=== PATIENT | male | born 1945 | race Caucasian/White ===

== ENCOUNTER → 2020-02-08 12:33 | Outpatient (BNVA) | payer MEDICARE, SELFPAY | PROVIDERS: PCP Internal Medicine; Visit Provider Internal Medicine Cardiovascular Disease | DX: I25.118 Atherosclerotic heart disease of native coronary artery with other forms of angina pectoris (principal); R06.00 Dyspnea, unspecified; I25.2 Old myocardial infarction; Z95.820 Peripheral vascular angioplasty status with implants and grafts | CPT/HCPCS: 99214 ==

== ENCOUNTER 2020-02-17 08:41 | Outpatient (REF) | payer MEDICARE, SELFPAY ==
--- NOTE | 2020-02-17 08:44 | CT_ITS ---
EXAMINATION: CT CHEST WITHOUT CONTRAST CLINICAL INFORMATION: Follow-up abnormal chest x-ray. COMPARISON: Previous chest x-ray April [address] scans October 2019. TECHNIQUE: Multidetector volumetric CT imaging of the chest was done. Axial MIP volume rendering provided. Sagittal and coronal reformatted images were obtained. This CT examination was performed using dose optimization techniques as appropriate, variously including the following: *Automated exposure control *Adjustment of mA and/or kV according to patient size (this includes techniques or standardized protocols for targeted exams where dose is matched to indication/reason for exam; i.e. extremities or head) *Use of iterative reconstruction technique DLP: 190 mGy-cm. FINDINGS: LUNGS: There is evidence of emphysema. There is mild biapical pleural and parenchymal scarring that is stable. There is interval decrease in the peripheral parenchymal densities at the lung bases, largest index lesion in the posteromedial left lower lobe compared to October 2019 CT scan. There is interval decrease in the peripheral increased interstitial markings/interlobular septal thickening and increased peripheral attenuation seen in the left upper lobe. There are multiple new similar-appearing areas of increased interstitial markings, interlobular septal thickening and increased parenchymal attenuation seen in the right lung. Some of these appear peripheral and some of these appear central. This is greatest in the right upper and right middle lobes and superior segment of the right lower lobe. There is interval increase in peribronchial attenuation, questionable for airways disease in the posterior basal segment of the right lower lobe. No endobronchial or endotracheal lesion is seen. MEDIASTINUM: The left lobe of the thyroid gland is enlarged and extends substernally into the mediastinum. This is unchanged. There is shotty mediastinal lymphadenopathy that is unchanged. The heart does not appear enlarged. There is [id number] coronary artery calcification. There is aortic valve calcification. The ascending thoracic aorta is slightly dilated measuring 4.3 cm in diameter. The aortic arch and descending thoracic aorta are normal in caliber. There is no pericardial effusion. PLEURA: There is no pleural effusion. No pleural mass or thickening. AXILLA: No lymphadenopathy. UPPER ABDOMEN: There are multiple small low-attenuation liver lesions that are stable. Largest measures 1 cm in the left lobe of the liver. There is a small calcification in the upper pole of the right kidney, questionable for vascular calcification versus stone. There is diverticulosis of the colon. OSSEOUS STRUCTURES: There are degenerative changes of the spine. There is loss of height of the T9 vertebral body, questionable for full for old mild compression fracture that is unchanged. CT/CT chest wo con IMPRESSION: Previously identified left lung findings of abnormal parenchymal densities in the left lower lobe and areas of peripheral increased interstitial markings/interlobular septal thickening and increased parenchymal attenuation in the left upper lobe have significantly improved or resolved from October 2019 exam. There are new similar-appearing areas of increased interstitial markings/interlobular septal thickening and increased attenuation in the right upper lung. Again, it is uncertain whether this represents interstitial lung disease or acute infectious or inflammatory process. Coronary artery and aortic valve calcification and dilated ascending thoracic aorta.
== END 2020-02-17 08:42 | disposition home or self-care (01) ==
LOC: HO.CT 08:41
PROVIDERS: PCP Internal Medicine; Visit Provider Internal Medicine Pulmonary Disease
DX: R93.89 Abnormal findings on diagnostic imaging of other specified body structures (principal)
CPT/HCPCS: 71250

== ENCOUNTER → 2020-03-09 14:28 | Outpatient (BNVA) | payer MEDICARE, SELFPAY | PROVIDERS: PCP Internal Medicine; Visit Provider Internal Medicine Pulmonary Disease | DX: R91.8 Other nonspecific abnormal finding of lung field (principal); J44.9 Chronic obstructive pulmonary disease, unspecified; Z79.899 Other long term (current) drug therapy | CPT/HCPCS: 99212 ==

== ENCOUNTER 2020-03-28 06:02 | Outpatient (REF) | payer MEDICARE, SELFPAY ==
[2020-03-28 11:06] LABS: MANUAL DIFF FLAG NO
[2020-03-28 11:15] LABS: Basophils Percent Auto 0.3 % (0-2); Eosinophils Absolute Auto 0.1 X10*3/uL (0.0-0.4); Hematocrit 37.7 % (42-52); Imm Gran Abs Auto 0.02 X10*3/uL (0.00-0.03); Imm Gran Pct Auto 0.3 % (0.0-0.4); Lymphocytes Absolute Auto 2.1 X10*3/uL (1.2-4.9); Lymphocytes Percent Auto 26.1 % (20-40); Mean Corpuscular HGB Conc 31.8 g/dl (31.0-36.0); Mean Corpuscular Hemoglobin 32.9 pg (27.0-33.0); Mean Corpuscular Volume 103.3 fL (80-98); Mean Platelet Volume 10.1 fL (9.4-12.4); Monocytes Absolute Auto 0.7 X10*3/uL (0.1-1.2); Monocytes Percent Auto 9.2 % (2-11); Neutrophils Percent Auto 63.1 % (45-73); Platelet Count 200 X10*3/uL (160-400); Red Blood Count 3.65 X10*6/uL (4.60-5.80); Red Cell Distribution Width 14.2 % (11.0-16.0); White Blood Count 7.9 X10*3/uL (4.8-10.8)
[2020-03-28 11:36] LABS: Alanine Aminotransferase 22 U/L (0-40); Albumin Level 3.7 g/dL (3.5-5.0); Alkaline Phosphatase 125 U/L (39-117); Anion Gap 15 (12-20); Aspartate Amino Transferase 19 U/L (5-37); Bilirubin Total 0.8 mg/dL (0.0-1.0); Blood Urea Nitrogen 23 mg/dL (9-16); Calcium 8.3 mg/dL (8.4-10.2); Carbon Dioxide 23 mmol/L (22-29); Chloride 105 mmol/L (96-108); Cholesterol 123 mg/dL; Estimated Glomerular Filt Rate > 60; Glucose Random 111 mg/dL (60-115); HDL Cholesterol 50 mg/dL; LDL Cholesterol Calculated 50 mg/dl; Potassium 3.5 mmol/l (3.3-5.1); Sodium 139 mmol/L (135-145); Total Protein 6.9 g/dL (6.5-8.0); Triglycerides 116 mg/dL
[2020-03-28 11:38] LABS: B Type Natriuretic Peptide 403 pg/mL (<100)
[2020-03-28 12:01] LABS: Free T4 (Free Thyroxine) 1.02 ng/dL (0.71-1.85); Thyroid Stimulating Hormone 1.68 uIU/mL (0.32-4.0)
[2020-03-28 13:57] LABS: Folate 9.9 ng/mL (> or = 4.0); Vitamin B12 280 pg/mL (200-900)
== END 2020-03-28 06:03 | disposition home or self-care (01) ==
LOC: HO.HMGCLDS 06:02
PROVIDERS: PCP Internal Medicine; Visit Provider Internal Medicine
DX: I25.10 Atherosclerotic heart disease of native coronary artery without angina pectoris (principal); R73.02 Impaired glucose tolerance (oral); E78.00 Pure hypercholesterolemia, unspecified
CPT/HCPCS: 36415; 80053; 80061; 82607; 82746; 83880; 84439; 84443; 85025

== ENCOUNTER → 2020-03-29 08:35 | Outpatient (BNV) | payer MEDICARE, SELFPAY | PROVIDERS: Visit Provider Internal Medicine Medical Oncology | DX: D64.9 Anemia, unspecified (principal); R91.8 Other nonspecific abnormal finding of lung field | CPT/HCPCS: 99212; 99213; 99214; 99443 ==

== ENCOUNTER 2020-04-01 15:35 | Inpatient (IN) | payer MEDICARE, SELFPAY ==
[2020-04-01] VITALS (9 sets, daily range): BP systolic 112–146; BP diastolic 82–90; PULSE 96–137; RESP 16–20; TEMP 36.4; O2SAT 94–99; BMI 31.1
--- NOTE | 2020-04-01 15:55 | ED_ITS ---
HPI - Arrhythmia/Palpitations General Chief Complaint: Arrhythmia/Palpitations Stated Complaint: Rapid heart beat Time Seen by Provider: 04/01/20 15:54 Source: patient Mode of arrival: ambulatory Limitations: no limitations History of Present Illness HPI narrative: This is a 74-year-old male below noted past medical history including history of COPD, coronary artery disease, status post cardiac catheterization with stenting, chronic dyspnea on exertion, former smoker, hypercholesteremia, hypertension, kidney stone, thyroid nodule, vitamin-D deficiency, wedge compression fracture of T9 vertebra with surgical history of again cardiac observation status post stenting, tonsillectomy, lung biopsy, appendectomy who presents ambulatory via triage with complaint of shortness of breath who was seen his primary care doctor office today Related Data Home Medications Medication Instructions Recorded Confirmed amlodipine 2.5 mg tablet 2.5 mg PO DAILY 02/08/20 04/01/20 aspirin 81 mg chewable tablet 81 mg PO DAILY 02/08/20 04/01/20 atorvastatin 80 mg tablet 80 mg PO BEDTIME 02/08/20 04/01/20 budesonide-formoterol HFA 160 2 puff PO BID 02/08/20 04/01/20 mcg-4.5 mcg/actuation aerosol inhaler metoprolol succinate 25 mg 25 mg PO DAILY 02/08/20 04/01/20 tablet,extended release 24 hr ticagrelor 90 mg tablet 90 mg PO BID 02/08/20 04/01/20 adalimumab 40 mg/0.8 mL 40 mg SUBCUT Q2W 04/01/20 04/01/20 subcutaneous syringe kit Allergies Allergy/AdvReac Type Severity Reaction Status Date / Time hydrochlorothiazide Allergy Unknown unknown Verified 03/09/20 14:56 lisinopril Allergy Unknown unknown Verified 03/09/20 14:56 [facility] Past Medical History Medical History (Updated 04/01/20 @ 14:56 by Oswaldo Delgado MD) Ascending aorta dilatation COPD (chronic obstructive pulmonary disease) Coronary artery disease HOLLOAWY (dyspnea on exertion) Former smoker Hypercholesterolemia Hypertension Impaired glucose tolerance Obesity (BMI 30-39.9) Psoriasis Pulmonary nodule Right renal stone Stable angina Thyroid nodule Vitamin D deficiency Wedge compression fracture of T9 vertebra Surgical History (Updated 03/29/20 @ 09:46 by Sheridan Gore MD) History of appendectomy History of lung biopsy (~2017) History of tonsillectomy Hx of cardiac catheterization (~2019) Status post angioplasty with stent Family History Family History Father No problems noted. Mother No problems noted. Social History Social History Smoking Status: Former smoker Use of substances other than those prescribed or required for medical reasons: No Advance Directives: No Advance Directives Information Provided: No Physical Exam Vital Signs: Vital Signs: Last Vital Signs Temp 97.6 F 04/01/20 20:00 Pulse 104 H 04/01/20 20:00 Resp 20 04/01/20 20:00 BP 123/82 04/01/20 20:00 Pulse Ox 94 04/01/20 20:00 Body Mass Index 31.1 Reviewed Course Course Course Narrative: Review 74-year-old male sent in from primary care doctor office where he went for routine follow-up found to be in rapid AFib with RVR this is new onset for the patient. He is on Brilinta from previous heart surgery otherwise denies any chest pain. States he has chronic dyspnea which he contributes to his COPD otherwise no recent illness. No cough, runny nose, ches pain or fever. Bedside monitor shows atrial fibrillation with RVR in the ER varying from 140-150. Labs being drawn right now will be given 10 mg of Cardizem. Reevaluation(s) Reevaluation #1: Heart rate improved down to 110 after 1st dose of diltiazem. Started on diltiazem drip. Workup in progress WBC without leukocytosis. Otherwise hemodynamically stable blood pressure 118/75. Reevaluation #2: 1800 [facility] downtime Wet read given to me by the Radiology Department awaiting formal read Impression ?Probable right interstitial infiltrate? Patient has no upper respiratory symptoms to suggest infectious process however given his extensive COPD history CT of the chest ordered Will be given dose of empiric antibiotic. No signs or symptoms systemic infection/sepsis. Reevaluation #3: 1850 There was a delay in lab results of the chemistry secondary to difficult draw and hemolyzed back The results just came back of the 2nd draw shows a significant hypernatremia of 160 clinically this appears to be a draw air BMP reordered. Patient resting comfortably at this time. Consultations Consultation #1: 1700 Chemistries hemolyzed reordered and drawn by tach. Patient has been resting comfortably rate control on diltiazem drip. Case discussed with hospitalist for admission. Chemistries and chest x-ray is still pending. MDM - Arrhythmia/Palpitations Differential Diagnosis Differential diagnosis: Likely palpitations, sinus tachycardia, artial fibrillation, artial flutter, ventricular premature beats, supraventricular tachycardia, ventricular tachycardia and WPW Medical Records Attestation: I reviewed the patient's medical records. Lab Data Attestation: I reviewed the patient's lab results. Result diagrams: 04/01/20 16:00 04/01/20 19:07 Labs: Lab Results 04/01/20 04/01/20 04/01/20 Range/Units 16:00 16:00 16:00 WBC 7.4 (4.8-10.8) X10*3/uL RBC 3.61 L (4.60-5.80) X10*6/uL Hgb 11.9 L (14.0-18.0) g/dl Hct 37.1 L (42-52) % MCV 102.8 H (80-98) fL MCH 33.0 (27.0-33.0) pg MCHC 32.1 (31.0-36.0) g/dl RDW 14.2 (11.0-16.0) % Plt Count 175 (160-400) X10*3/uL MPV 9.8 (9.4-12.4) fL Immature Gran % (Auto) 0.3 (0.0-0.4) % Neut % (Auto) 59.6 (45-73) % Lymph % (Auto) 28.5 (20-40) % [place] % (Auto) 10.0 (2-11) % Eos % (Auto) 1.5 (0-4) % Baso % (Auto) 0.1 (0-2) % Lymph # (Auto) 2.1 (1.2-4.9) X10*3/uL [place] # (Auto) 0.7 (0.1-1.2) X10*3/uL Eos # (Auto) 0.1 (0.0-0.4) X10*3/uL Baso # (Auto) 0.0 (0.0-0.2) X10*3/uL Abs Immat Gran (auto) 0.02 (0.00-0.03) X10*3/uL Absolute Neuts (auto) 4.4 (2.0-8.3) X10*3/uL Absolute Nucleated RBC 0.000 (0.0-0.012) X10*3/uL Nucleated RBC % (auto) 0.0 (0.0-0.2) /100WBC PT Cancelled INR Cancelled APTT Cancelled D-Dimer Cancelled Sodium Cancelled Potassium Cancelled Chloride Cancelled Carbon Dioxide Cancelled Anion Gap Cancelled BUN Cancelled Creatinine Cancelled Estim Creat Clear Calc Cancelled Estimated GFR Cancelled Random Glucose Cancelled Calcium Cancelled Magnesium Cancelled Total Bilirubin Cancelled AST Cancelled ALT Cancelled Alkaline Phosphatase Cancelled Troponin I High Sens (<3.5-35.0) ng/L B-Natriuretic Peptide (<100) pg/mL Total Protein Cancelled Albumin Cancelled TSH Cancelled Urine Color Urine Appearance Urine pH (5.0-8.0) Ur Specific [place] (1.005-1.025) Urine Protein (NEG-TRACE) MG/DL Urine Glucose (UA) (NEG) MG/DL Urine Ketones (NEG) MG/DL Urine Blood (NEG) Urine Nitrite (NEG) Ur Leukocyte Esterase (NEG) Urine RBC (0) /HPF Urine WBC (0-4) /HPF Ur Squamous Epith Cells /LPF Urine Bacteria /LPF Urine Opiates Screen (Not Detect) Ur Barbiturates Screen (Not Detect) Ur Phencyclidine Scrn (Not Detect) Ur Amphetamines Screen (Not Detect) U Benzodiazepines Scrn (Not Detect) Urine Cocaine Screen (Not Detect) U Marijuana (THC) Screen (Not Detect) Coronavirus (PCR) (Negative) Influenza Type A (PCR) (Negative) Influenza Type B (PCR) (Negative) RSV RNA Qual (PCR) (Negative) 04/01/20 04/01/20 04/01/20 Range/Units 16:00 16:00 17:18 WBC (4.8-10.8) X10*3/uL RBC (4.60-5.80) X10*6/uL Hgb (14.0-18.0) g/dl Hct (42-52) % MCV (80-98) fL MCH (27.0-33.0) pg MCHC (31.0-36.0) g/dl RDW (11.0-16.0) % Plt Count (160-400) X10*3/uL MPV (9.4-12.4) fL Immature Gran % (Auto) (0.0-0.4) % Neut % (Auto) (45-73) % Lymph % (Auto) (20-40) % [place] % (Auto) (2-11) % Eos % (Auto) (0-4) % Baso % (Auto) (0-2) % Lymph # (Auto) (1.2-4.9) X10*3/uL [place] # (Auto) (0.1-1.2) X10*3/uL Eos # (Auto) (0.0-0.4) X10*3/uL Baso # (Auto) (0.0-0.2) X10*3/uL Abs Immat Gran (auto) (0.00-0.03) X10*3/uL Absolute Neuts (auto) (2.0-8.3) X10*3/uL Absolute Nucleated RBC (0.0-0.012) X10*3/uL Nucleated RBC % (auto) (0.0-0.2) /100WBC PT INR APTT D-Dimer Sodium 160 H* Potassium 3.8 Chloride 94 L Carbon Dioxide 15 L Anion Gap 55 H BUN 23 H Creatinine 0.70 Estim Creat Clear Calc 105.5 Estimated GFR > 60 Random Glucose 91 Calcium 6.4 L D Magnesium 2.4 Total Bilirubin 0.4 AST 16 ALT 19 Alkaline Phosphatase 100 Troponin I High Sens 5.0 (<3.5-35.0) ng/L B-Natriuretic Peptide 272 H (<100) pg/mL Total Protein 5.7 L Albumin 3.1 L TSH 0.99 Urine Color Urine Appearance Urine pH (5.0-8.0) Ur Specific [place] (1.005-1.025) Urine Protein (NEG-TRACE) MG/DL Urine Glucose (UA) (NEG) MG/DL Urine Ketones (NEG) MG/DL Urine Blood (NEG) Urine Nitrite (NEG) Ur Leukocyte Esterase (NEG) Urine RBC (0) /HPF Urine WBC (0-4) /HPF Ur Squamous Epith Cells /LPF Urine Bacteria /LPF Urine Opiates Screen (Not Detect) Ur Barbiturates Screen (Not Detect) Ur Phencyclidine Scrn (Not Detect) Ur Amphetamines Screen (Not Detect) U Benzodiazepines Scrn (Not Detect) Urine Cocaine Screen (Not Detect) U Marijuana (THC) Screen (Not Detect) Coronavirus (PCR) NEGATIVE (Negative) Influenza Type A (PCR) NEGATIVE (Negative) Influenza Type B (PCR) NEGATIVE (Negative) RSV RNA Qual (PCR) NEGATIVE (Negative) 04/01/20 04/01/20 04/01/20 Range/Units 17:18 18:32 18:32 WBC (4.8-10.8) X10*3/uL RBC (4.60-5.80) X10*6/uL Hgb (14.0-18.0) g/dl Hct (42-52) % MCV (80-98) fL MCH (27.0-33.0) pg MCHC (31.0-36.0) g/dl RDW (11.0-16.0) % Plt Count (160-400) X10*3/uL MPV (9.4-12.4) fL Immature Gran % (Auto) (0.0-0.4) % Neut % (Auto) (45-73) % Lymph % (Auto) (20-40) % [place] % (Auto) (2-11) % Eos % (Auto) (0-4) % Baso % (Auto) (0-2) % Lymph # (Auto) (1.2-4.9) X10*3/uL [place] # (Auto) (0.1-1.2) X10*3/uL Eos # (Auto) (0.0-0.4) X10*3/uL Baso # (Auto) (0.0-0.2) X10*3/uL Abs Immat Gran (auto) (0.00-0.03) X10*3/uL Absolute Neuts (auto) (2.0-8.3) X10*3/uL Absolute Nucleated RBC (0.0-0.012) X10*3/uL Nucleated RBC % (auto) (0.0-0.2) /100WBC PT 12.3 INR 1.0 APTT 34.5 D-Dimer < 200 Sodium Potassium Chloride Carbon Dioxide Anion Gap BUN Creatinine Estim Creat Clear Calc Estimated GFR Random Glucose Calcium Magnesium Total Bilirubin AST ALT Alkaline Phosphatase Troponin I High Sens (<3.5-35.0) ng/L B-Natriuretic Peptide (<100) pg/mL Total Protein Albumin TSH Urine Color YELLOW Urine Appearance CLEAR Urine pH 5.5 (5.0-8.0) Ur Specific [place] >= 1.030 H (1.005-1.025) Urine Protein NEG (NEG-TRACE) MG/DL Urine Glucose (UA) NEG (NEG) MG/DL Urine Ketones NEG (NEG) MG/DL Urine Blood NEG (NEG) Urine Nitrite NEG (NEG) Ur Leukocyte Esterase NEG (NEG) Urine RBC 0-2 (0) /HPF Urine WBC 0 (0-4) /HPF Ur Squamous Epith Cells NONE /LPF Urine Bacteria 1+ /LPF Urine Opiates Screen Not Detected (Not Detect) Ur Barbiturates Screen Not Detected (Not Detect) Ur Phencyclidine Scrn Not Detected (Not Detect) Ur Amphetamines Screen Not Detected (Not Detect) U Benzodiazepines Scrn Not Detected (Not Detect) Urine Cocaine Screen Not Detected (Not Detect) U Marijuana (THC) Screen Not Detected (Not Detect) Coronavirus (PCR) (Negative) Influenza Type A (PCR) (Negative) Influenza Type B (PCR) (Negative) RSV RNA Qual (PCR) (Negative) 04/01/20 Range/Units 19:07 WBC (4.8-10.8) X10*3/uL RBC (4.60-5.80) X10*6/uL Hgb (14.0-18.0) g/dl Hct (42-52) % MCV (80-98) fL MCH (27.0-33.0) pg MCHC (31.0-36.0) g/dl RDW (11.0-16.0) % Plt Count (160-400) X10*3/uL MPV (9.4-12.4) fL Immature Gran % (Auto) (0.0-0.4) % Neut % (Auto) (45-73) % Lymph % (Auto) (20-40) % [place] % (Auto) (2-11) % Eos % (Auto) (0-4) % Baso % (Auto) (0-2) % Lymph # (Auto) (1.2-4.9) X10*3/uL [place] # (Auto) (0.1-1.2) X10*3/uL Eos # (Auto) (0.0-0.4) X10*3/uL Baso # (Auto) (0.0-0.2) X10*3/uL Abs Immat Gran (auto) (0.00-0.03) X10*3/uL Absolute Neuts (auto) (2.0-8.3) X10*3/uL Absolute Nucleated RBC (0.0-0.012) X10*3/uL Nucleated RBC % (auto) (0.0-0.2) /100WBC PT INR APTT D-Dimer Sodium 140 Potassium 4.0 Chloride 110 H Carbon Dioxide 21 L Anion Gap 13 BUN 25 H Creatinine 0.77 Estim Creat Clear Calc 95.9 Estimated GFR > 60 Random Glucose 105 Calcium 7.8 L D Magnesium Total Bilirubin AST ALT Alkaline Phosphatase Troponin I High Sens (<3.5-35.0) ng/L B-Natriuretic Peptide (<100) pg/mL Total Protein Albumin TSH Urine Color Urine Appearance Urine pH (5.0-8.0) Ur Specific [place] (1.005-1.025) Urine Protein (NEG-TRACE) MG/DL Urine Glucose (UA) (NEG) MG/DL Urine Ketones (NEG) MG/DL Urine Blood (NEG) Urine Nitrite (NEG) Ur Leukocyte Esterase (NEG) Urine RBC (0) /HPF Urine WBC (0-4) /HPF Ur Squamous Epith Cells /LPF Urine Bacteria /LPF Urine Opiates Screen (Not Detect) Ur Barbiturates Screen (Not Detect) Ur Phencyclidine Scrn (Not Detect) Ur Amphetamines Screen (Not Detect) U Benzodiazepines Scrn (Not Detect) Urine Cocaine Screen (Not Detect) U Marijuana (THC) Screen (Not Detect) Coronavirus (PCR) (Negative) Influenza Type A (PCR) (Negative) Influenza Type B (PCR) (Negative) RSV RNA Qual (PCR) (Negative) ABG Data Attestation: I personally reviewed and interpreted this ABG as follows: Imaging Data CTA ches PE: Radiologist's impression: [address] [address] [address] Scan Report Signed Patient: Pablito Everett PMR#: [id number] : 6Acct:[id number] Age/Sex: 74 / MADM Date: 04/01/20 Loc: HO.ED Attending Dr: Ordering Physician: Dionisio Graf NP Date of Service: 04/01/20 Procedure(s): CT angio chest PE protocol Accession Number(s): [id number] cc: Dionisio Graf NP~ EXAMINATION: CT ANGIOGRAM OF THE CHEST WITH AND WITHOUT CONTRAST (CT PULMONARY ANGIOGRAM FOR PE) CLINICAL INFORMATION: Reason for Exam SOB/ elevated ddimer COMPARISON: 02/17/2020 TECHNIQUE: Prior to contrast administration, noncontrast localization images were obtained. Subsequently, multidetector volumetric imaging was performed from the thoracic inlet to below the diaphragms following the administration of 65 mL Omnipaque 350 intravenous contrast. No contrast reaction reported Sagittal, coronal, and MIP oblique sagittal reformatted images were obtained on the CT workstation, uploaded to PACS, and reviewed. This CT examination was performed using dose optimization techniques as appropriate, variously including the following: *Automated exposure control *Adjustment of mA and/or kV according to patient size (this includes techniques or standardized protocols for targeted exams where dose is matched to indication/reason for exam; i.e. extremities or head) *Use of iterative reconstruction technique Total exam dose-length product 625 mGy-cm FINDINGS: QUALITY OF STUDY/CONTRAST BOLUS: Satisfactory. PULMONARY ARTERIES: No central or segmental pulmonary emboli. THORACIC AORTA: Calcific atherosclerosis is present in the thoracic aorta. Ascending thoracic aorta is mildly ectatic (4.3 cm at the tubular segment). No evidence of dissection. LUNG: Moderate centrilobular pulmonary emphysema. Dependent atelectasis present in the lower lobes. Additional peripheral groundglass airspace opacities are present within the right upper lobe in a more peripheral distribution. Patchy foci of peripheral interlobular septal thickening are evident as well. The previously seen patchy foci of parenchymal groundglass attenuation seen in the prior study are now included within these more pronounced abnormalities on the current study. Atelectasis is most likely, though a superimposed infectious process is possible. No dense consolidation. Central airways are clear. No focal pulmonary nodules. PLEURA: No pleural effusion or pneumothorax. MEDIASTINUM: Enlarged, heterogeneous left thyroid lobe. Left ischium is enlarged. Calcific atherosclerosis is present in the coronary arteries. An enlarged precarinal lymph node measures up to 1.3 cm in diameter, unchanged from prior. A borderline-enlarged 1 cm right hilar lymph node is also noted. No new adenopathy. No evidence of septal bowing or right heart strain. CHEST WALL/AXILLA: No axillary or internal mammary lymphadenopathy. OSSEOUS STRUCTURES: Chronic compression deformity is present at the T9 vertebral body involving both the superior and inferior endplates. There is is multilevel degenerative disc disease throughout the thoracic spine. No acute osseous abnormalities are identified. UPPER ABDOMEN: There is reflux of contrast into the hepatic veins, suggestive of elevated right heart pressures. Multiple sharply demarcated hypodensities within the hepatic parenchyma are noted, most likely corresponding to cysts. These appear unchanged as compared to prior. Diverticulosis is present in the imaged portion of the colon. No evidence of diverticulitis. CT/CT angio chest PE protocol IMPRESSION: 1. No evidence of pulmonary emboli. 2. Pulmonary emphysema. Previously seen abnormal parenchymal groundglass opacities are now more pronounced, confluent with broader areas of groundglass attenuation, likely due to superimposed atelectasis or progression of underlying infectious or inflammatory process. Bowel pneumonitis is on the differential. 3. Ectatic ascending thoracic aorta. 4. Borderline enlarged mediastinal and right hilar lymph nodes. 5. Left atrial enlargement. Reflux of contrast material into the right hepatic veins to suggest a component of elevated right heart pressures. VTE: negative Dictated By:JOVANA CATES MD Signed By:<Electronically signed by JOVANA CATES MD in OV>04/01/202039 DD/ 18 TD/TT: Personal Protection Specialist: CHEVY ECG Data Interpretation: Atrial fibrillation with RVR Rate [address] abnormality Discharge Plan Discharge Prescriptions: No Action Humira 40 mg/0.8 mL syringe kit 40 mg subcut Q2W RF: 0 Brilinta 90 mg tablet 90 mg PO BID RF: 0 metoprolol succinate 25 mg tablet extended release 24 hr 25 mg PO DAILY RF: 0 amlodipine 2.5 mg tablet 2.5 mg PO DAILY RF: 0 budesonide-formoterol 160-4.5 mcg/actuation HFA aerosol inhaler 2 puff PO BID RF: 0 atorvastatin 80 mg tablet 80 mg PO BEDTIME RF: 0 aspirin 81 mg tablet,chewable 81 mg PO DAILY RF: 0
--- NOTE | 2020-04-01 15:55 | XR_ITS ---
EXAMINATION: XR CHEST CLINICAL INFORMATION: Short of breath. COMPARISON: None TECHNIQUE: Frontal view of the chest was obtained. FINDINGS: The lungs are well-expanded with diffuse increase interstitial prominence slightly greater on the right and left. No consolidation or pleural effusion seen. Heart size and pulmonary vascularity is normal. XR/XR chest 1V IMPRESSION: Prominent interstitial pattern in both lungs slightly greater on the right. Question interstitial pneumonitis versus edema. Preliminary results were faxed to ER and was read by Dr. Sr.
--- NOTE | 2020-04-01 15:55 | ECG_ITS ---
Test Reason : RAPID HEART RATE Blood Pressure : / mmHG Vent. Rate : 122 BPM Atrial Rate : 312 BPM P-R Int : 000 ms QRS Dur : 080 ms QT Int : 322 ms P-R-T Axes : 000 020 032 degrees QTc Int : 458 ms Atrial fibrillation with rapid ventricular response Nonspecific ST abnormality Abnormal ECG When compared with ECG of 05-MAY-2019 07:40, Atrial fibrillation has replaced Sinus rhythm Vent. rate has increased BY 56 BPM Referred By: Dionisio Graf Electronically Signed By:AUTUMN MANCINI
[2020-04-01 16:08] LABS: MANUAL DIFF FLAG NO
[2020-04-01 16:10] LABS: Basophils Percent Auto 0.1 % (0-2); Eosinophils Absolute Auto 0.1 X10*3/uL (0.0-0.4); Eosinophils Percent Auto 1.5 % (0-4); Hematocrit 37.1 % (42-52); Hemoglobin 11.9 g/dl (14.0-18.0); Imm Gran Abs Auto 0.02 X10*3/uL (0.00-0.03); Imm Gran Pct Auto 0.3 % (0.0-0.4); Lymphocytes Absolute Auto 2.1 X10*3/uL (1.2-4.9); Lymphocytes Percent Auto 28.5 % (20-40); Mean Corpuscular HGB Conc 32.1 g/dl (31.0-36.0); Mean Corpuscular Volume 102.8 fL (80-98); Mean Platelet Volume 9.8 fL (9.4-12.4); Monocytes Absolute Auto 0.7 X10*3/uL (0.1-1.2); Neutrophils Absolute Auto 4.4 X10*3/uL (2.0-8.3); Neutrophils Percent Auto 59.6 % (45-73); Platelet Count 175 X10*3/uL (160-400); Red Blood Count 3.61 X10*6/uL (4.60-5.80); Red Cell Distribution Width 14.2 % (11.0-16.0); White Blood Count 7.4 X10*3/uL (4.8-10.8)
[2020-04-01] MEDS: 0.9 % Sodium Chloride 500 ML 999 ML IV (16:12)
[2020-04-01] MEDS: dilTIAZem HCL 50 MG/10 ML VIAL 10 MG IVPUSH (16:12)
[2020-04-01 16:50] LABS: Influenza A PCR NEGATIVE (Negative); Influenza B PCR NEGATIVE (Negative); Resp Syncy Virus RNA Qual PCR NEGATIVE (Negative); SARS COV2 PCR INHOUSE NEGATIVE (Negative)
[2020-04-01] MEDS: dilTIAZem HCL 125 MG in 0.9 % Sodium Chloride 100 ML 10 MG IVCONT (17:05)
--- NOTE | 2020-04-01 17:07 | PC.NURSE ---
Cardizem gtt started as ordered at 10mg/hr. HR at at this time 90-100
--- NOTE | 2020-04-01 17:08 | PC.NURSE ---
Chemistry and coags hemolyzed, tech to re draw
[2020-04-01 17:39] LABS: Prothrombin Time 12.3 SEC (10.8-13.0)
--- NOTE | 2020-04-01 18:19 | CT_ITS ---
EXAMINATION: CT ANGIOGRAM OF THE CHEST WITH AND WITHOUT CONTRAST (CT PULMONARY ANGIOGRAM FOR PE) CLINICAL INFORMATION: Reason for Exam SOB/ elevated ddimer COMPARISON: 02/17/2020 TECHNIQUE: Prior to contrast administration, noncontrast localization images were obtained. Subsequently, multidetector volumetric imaging was performed from the thoracic inlet to below the diaphragms following the administration of 65 mL Omnipaque 350 intravenous contrast. No contrast reaction reported Sagittal, coronal, and MIP oblique sagittal reformatted images were obtained on the CT workstation, uploaded to PACS, and reviewed. This CT examination was performed using dose optimization techniques as appropriate, variously including the following: *Automated exposure control *Adjustment of mA and/or kV according to patient size (this includes techniques or standardized protocols for targeted exams where dose is matched to indication/reason for exam; i.e. extremities or head) *Use of iterative reconstruction technique Total exam dose-length product 625 mGy-cm FINDINGS: QUALITY OF STUDY/CONTRAST BOLUS: Satisfactory. PULMONARY ARTERIES: No central or segmental pulmonary emboli. THORACIC AORTA: Calcific atherosclerosis is present in the thoracic aorta. Ascending thoracic aorta is mildly ectatic (4.3 cm at the tubular segment). No evidence of dissection. LUNG: Moderate centrilobular pulmonary emphysema. Dependent atelectasis present in the lower lobes. Additional peripheral groundglass airspace opacities are present within the right upper lobe in a more peripheral distribution. Patchy foci of peripheral interlobular septal thickening are evident as well. The previously seen patchy foci of parenchymal groundglass attenuation seen in the prior study are now included within these more pronounced abnormalities on the current study. Atelectasis is most likely, though a superimposed infectious process is possible. No dense consolidation. Central airways are clear. No focal pulmonary nodules. PLEURA: No pleural effusion or pneumothorax. MEDIASTINUM: Enlarged, heterogeneous left thyroid lobe. Left ischium is enlarged. Calcific atherosclerosis is present in the coronary arteries. An enlarged precarinal lymph node measures up to 1.3 cm in diameter, unchanged from prior. A borderline-enlarged 1 cm right hilar lymph node is also noted. No new adenopathy. No evidence of septal bowing or right heart strain. CHEST WALL/AXILLA: No axillary or internal mammary lymphadenopathy. OSSEOUS STRUCTURES: Chronic compression deformity is present at the T9 vertebral body involving both the superior and inferior endplates. There is is multilevel degenerative disc disease throughout the thoracic spine. No acute osseous abnormalities are identified. UPPER ABDOMEN: There is reflux of contrast into the hepatic veins, suggestive of elevated right heart pressures. Multiple sharply demarcated hypodensities within the hepatic parenchyma are noted, most likely corresponding to cysts. These appear unchanged as compared to prior. Diverticulosis is present in the imaged portion of the colon. No evidence of diverticulitis. CT/CT angio chest PE protocol IMPRESSION: 1. No evidence of pulmonary emboli. 2. Pulmonary emphysema. Previously seen abnormal parenchymal groundglass opacities are now more pronounced, confluent with broader areas of groundglass attenuation, likely due to superimposed atelectasis or progression of underlying infectious or inflammatory process. Bowel pneumonitis is on the differential. 3. Ectatic ascending thoracic aorta. 4. Borderline enlarged mediastinal and right hilar lymph nodes. 5. Left atrial enlargement. Reflux of contrast material into the right hepatic veins to suggest a component of elevated right heart pressures. VTE: negative
[2020-04-01 18:41] LABS: Appearance Urine CLEAR; Color Urine YELLOW; Glucose Urine UA NEG (NEG); Leukocyte Esterase Urine NEG (NEG); Nitrite Urine NEG (NEG); PH 5.5 (5.0-8.0); Specific Gravity - Urine >= 1.030 (1.005-1.025); Urine Blood NEG (NEG); Urine Ketones NEG (NEG); Urine Protein NEG (NEG-TRACE)
[2020-04-01 18:54] LABS: B Type Natriuretic Peptide 272 pg/mL (<100)
[2020-04-01 19:01] LABS: Bacteria Urine 1+ /LPF; RBC Urine 0-2 /HPF (0); WBC Urine 0 /HPF (0-4)
[2020-04-01 19:02] LABS: Amphetamine Screen Urine Not Detected (Not Detect); Barbiturates, Urine Not Detected (Not Detect); Benzodiazepines Screen Urine Not Detected (Not Detect); Cannabinoid Screen Urine Not Detected (Not Detect); Cocaine Screen Urine Not Detected (Not Detect); Opiate Screen Urine Not Detected (Not Detect); Phencyclidine Screen Urine Not Detected (Not Detect)
[2020-04-01 19:02] LABS: Partial Thromboplastin Time 34.5 SEC (24.1-38.0)
[2020-04-01 19:07] LABS: D Dimer < 200 NG/ML
[2020-04-01] MEDS: iohexoL 350 MG/ML 100 ML INFUS..BTL IV (19:39)
[2020-04-01] MEDS: Piperacillin Sodium/Tazobactam 4.5 GM in 0.9 % Sodium Chloride 100 ML IV (19:45)
[2020-04-01 19:50] LABS: Anion Gap 13 (12-20); Blood Urea Nitrogen 25 mg/dL (9-16); Calcium 7.8 mg/dL (8.4-10.2); Carbon Dioxide 21 mmol/L (22-29); Chloride 110 mmol/L (96-108); Creatinine Clr Calc Pharmacy 95.9; Estimated Glomerular Filt Rate > 60; Glucose Random 105 mg/dL (60-115); Sodium 140 mmol/L (135-145)
--- NOTE | 2020-04-01 20:46 | P.HPHOSP_ITS ---
History of Present Illness Date of Service: 04/01/20 Chief Complaint: Abnormal EKG This is a 74-year-old male multiple medical problems who was sent from his PCP's office for new onset atrial fibrillation. Patient had a routine medical visit and was noted to be in new onset atrial fibrillation with rapid ventricular response. His initial heart rate was in the 140s to 150s. He has had complaints of dyspnea on exertion for the past few months which is being worked up. He has had abnormal chest CT scan showing ground-glass opacities and he has been seeing pulmonology for this. Pulmonary felt that it was likely inflammatory and possibly secondary to his underlying psoriatic arthritis. He also has an underlying history of COPD and coronary artery disease. He underwent cardiac catheterization in April 2019 and had 2 drug-eluting stents placed at that time. Today he reports ongoing dyspnea on exertion but denies any chest pain, palpitations, dizziness. He was given a dose of IV Cardizem and then started on a Cardizem drip with good improvement in his heart rate. Review of Systems Review of Systems: Yes all other systems are reviewed and are negative Constitutional: Constitutional: Denies chills and Denies fever(s) Cardiovascular: Cardiovascular: Denies chest pain Respiratory: Respiratory: Denies cough Gastrointestinal: Gastrointestinal: Denies abdominal pain [facility] Medical History Ascending aorta dilatation COPD (chronic obstructive pulmonary disease) Coronary artery disease HOLLOWAY (dyspnea on exertion) Former smoker Hypercholesterolemia Hypertension Impaired glucose tolerance Obesity (BMI 30-39.9) Psoriasis Pulmonary nodule Right renal stone Stable angina Thyroid nodule Vitamin D deficiency Wedge compression fracture of T9 vertebra Family History (Updated 04/01/20 @ 20:53 by RAYNE Rodriguez) Father Heart disease Mother No problems noted. Surgical History History of appendectomy History of lung biopsy (~2016) History of tonsillectomy Hx of cardiac catheterization (~2019) Status post angioplasty with stent Social History Smoking Status: Former smoker Use of substances other than those prescribed or required for medical reasons: No Advance Directives: No Advance Directives Information Provided: No Meds Allergies Allergy/AdvReac Type Severity Reaction Status Date / Time hydrochlorothiazide Allergy Unknown unknown Verified 03/09/20 14:56 lisinopril Allergy Unknown unknown Verified 03/09/20 14:56 Home Medications Medication Instructions Recorded Confirmed Type amlodipine 2.5 mg tablet 2.5 mg PO DAILY 02/08/20 04/01/20 History aspirin 81 mg chewable tablet 81 mg PO DAILY 02/08/20 04/01/20 History atorvastatin 80 mg tablet 80 mg PO BEDTIME 02/08/20 04/01/20 History budesonide-formoterol HFA 160 2 puff PO BID 02/08/20 04/01/20 History mcg-4.5 mcg/actuation aerosol inhaler metoprolol succinate 25 mg 25 mg PO DAILY 02/08/20 04/01/20 History tablet,extended release 24 hr ticagrelor 90 mg tablet 90 mg PO BID 02/08/20 04/01/20 History adalimumab 40 mg/0.8 mL 40 mg SUBCUT Q2W 04/01/20 04/01/20 History subcutaneous syringe kit Physical Exam Vital Signs and Narrative: Vital Signs: Last Vital Signs Temp 97.6 F 04/01/20 20:00 Pulse 104 H 04/01/20 20:00 Resp 20 04/01/20 20:00 BP 123/82 04/01/20 20:00 Pulse Ox 94 04/01/20 20:00 Body Mass Index 31.1 Const: Nutritional Appearance: well nourished Orientation/consciousness: patient oriented x3 HENMT: Head: Yes normocephalic and Yes atraumatic Eyes: Sclerae: sclerae normal Chest: Chest palpation & inspection: normal inspection of the chest Resp: Effort & Inspection: normal respiratory effort and no respiratory distress Auscultation: diminished lung sounds Cardio: Rate: tachycardic Rhythm: abnormal rhythm irregularly irregular GI: Palpation (GI): Soft to palpation and nontender Skin: General skin exam: no rashes or lesions noted Neuro: General: patient oriented x3 Cranial nerves: Yes CN's II-XII intact bilaterally and Yes Bilaterally intact EOM present Extrem: General: Yes normal to inspection Results Labs CBC and Chem 7: 04/01/20 16:00 04/01/20 19:07 Labs: Laboratory Results - last 24 hr 04/01/20 04/01/20 04/01/20 16:00 16:00 16:00 MCV 102.8 H MCH 33.0 MCHC 32.1 RDW 14.2 Plt Count 175 MPV 9.8 Immature Gran % (Auto) 0.3 Neut % (Auto) 59.6 Lymph % (Auto) 28.5 [place] % (Auto) 10.0 Eos % (Auto) 1.5 Baso % (Auto) 0.1 Lymph # (Auto) 2.1 [place] # (Auto) 0.7 Eos # (Auto) 0.1 Baso # (Auto) 0.0 Abs Immat Gran (auto) 0.02 Absolute Neuts (auto) 4.4 Absolute Nucleated RBC 0.000 Nucleated RBC % (auto) 0.0 PT Cancelled INR Cancelled APTT Cancelled D-Dimer Cancelled Anion Gap Cancelled Estim Creat Clear Calc Cancelled Estimated GFR Cancelled Random Glucose Cancelled Calcium Cancelled Magnesium Cancelled Total Bilirubin Cancelled AST Cancelled ALT Cancelled Alkaline Phosphatase Cancelled Troponin I High Sens B-Natriuretic Peptide Total Protein Cancelled Albumin Cancelled TSH Cancelled Urine Color Urine Appearance Urine pH Ur Specific [place] Urine Protein Urine Glucose (UA) Urine Ketones Urine Blood Urine Nitrite Ur Leukocyte Esterase Urine RBC Urine WBC Ur Squamous Epith Cells Urine Bacteria Urine Opiates Screen Ur Barbiturates Screen Ur Phencyclidine Scrn Ur Amphetamines Screen U Benzodiazepines Scrn Urine Cocaine Screen U Marijuana (THC) Screen Coronavirus (PCR) Influenza Type A (PCR) Influenza Type B (PCR) RSV RNA Qual (PCR) 04/01/20 04/01/20 04/01/20 16:00 16:00 17:18 MCV MCH MCHC RDW Plt Count MPV Immature Gran % (Auto) Neut % (Auto) Lymph % (Auto) [place] % (Auto) Eos % (Auto) Baso % (Auto) Lymph # (Auto) [place] # (Auto) Eos # (Auto) Baso # (Auto) Abs Immat Gran (auto) Absolute Neuts (auto) Absolute Nucleated RBC Nucleated RBC % (auto) PT INR APTT D-Dimer Anion Gap 55 H Estim Creat Clear Calc 105.5 Estimated GFR > 60 Random Glucose 91 Calcium 6.4 L D Magnesium 2.4 Total Bilirubin 0.4 AST 16 ALT 19 Alkaline Phosphatase 100 Troponin I High Sens 5.0 B-Natriuretic Peptide 272 H Total Protein 5.7 L Albumin 3.1 L TSH 0.99 Urine Color Urine Appearance Urine pH Ur Specific [place] Urine Protein Urine Glucose (UA) Urine Ketones Urine Blood Urine Nitrite Ur Leukocyte Esterase Urine RBC Urine WBC Ur Squamous Epith Cells Urine Bacteria Urine Opiates Screen Ur Barbiturates Screen Ur Phencyclidine Scrn Ur Amphetamines Screen U Benzodiazepines Scrn Urine Cocaine Screen U Marijuana (THC) Screen Coronavirus (PCR) NEGATIVE Influenza Type A (PCR) NEGATIVE Influenza Type B (PCR) NEGATIVE RSV RNA Qual (PCR) NEGATIVE 04/01/20 04/01/20 04/01/20 17:18 18:32 18:32 MCV MCH MCHC RDW Plt Count MPV Immature Gran % (Auto) Neut % (Auto) Lymph % (Auto) [place] % (Auto) Eos % (Auto) Baso % (Auto) Lymph # (Auto) [place] # (Auto) Eos # (Auto) Baso # (Auto) Abs Immat Gran (auto) Absolute Neuts (auto) Absolute Nucleated RBC Nucleated RBC % (auto) PT 12.3 INR 1.0 APTT 34.5 D-Dimer < 200 Anion Gap Estim Creat Clear Calc Estimated GFR Random Glucose Calcium Magnesium Total Bilirubin AST ALT Alkaline Phosphatase Troponin I High Sens B-Natriuretic Peptide Total Protein Albumin TSH Urine Color YELLOW Urine Appearance CLEAR Urine pH 5.5 Ur Specific [place] >= 1.030 H Urine Protein NEG Urine Glucose (UA) NEG Urine Ketones NEG Urine Blood NEG Urine Nitrite NEG Ur Leukocyte Esterase NEG Urine RBC 0-2 Urine WBC 0 Ur Squamous Epith Cells NONE Urine Bacteria 1+ Urine Opiates Screen Not Detected Ur Barbiturates Screen Not Detected Ur Phencyclidine Scrn Not Detected Ur Amphetamines Screen Not Detected U Benzodiazepines Scrn Not Detected Urine Cocaine Screen Not Detected U Marijuana (THC) Screen Not Detected Coronavirus (PCR) Influenza Type A (PCR) Influenza Type B (PCR) RSV RNA Qual (PCR) 04/01/20 19:07 MCV MCH MCHC RDW Plt Count MPV Immature Gran % (Auto) Neut % (Auto) Lymph % (Auto) [place] % (Auto) Eos % (Auto) Baso % (Auto) Lymph # (Auto) [place] # (Auto) Eos # (Auto) Baso # (Auto) Abs Immat Gran (auto) Absolute Neuts (auto) Absolute Nucleated RBC Nucleated RBC % (auto) PT INR APTT D-Dimer Anion Gap 13 Estim Creat Clear Calc 95.9 Estimated GFR > 60 Random Glucose 105 Calcium 7.8 L D Magnesium Total Bilirubin AST ALT Alkaline Phosphatase Troponin I High Sens B-Natriuretic Peptide Total Protein Albumin TSH Urine Color Urine Appearance Urine pH Ur Specific [place] Urine Protein Urine Glucose (UA) Urine Ketones Urine Blood Urine Nitrite Ur Leukocyte Esterase Urine RBC Urine WBC Ur Squamous Epith Cells Urine Bacteria Urine Opiates Screen Ur Barbiturates Screen Ur Phencyclidine Scrn Ur Amphetamines Screen U Benzodiazepines Scrn Urine Cocaine Screen U Marijuana (THC) Screen Coronavirus (PCR) Influenza Type A (PCR) Influenza Type B (PCR) RSV RNA Qual (PCR) Imaging Radiologist's Impressions: Impressions Chest CTA 04/01/20 18:19 IMPRESSION: 1. No evidence of pulmonary emboli. 2. Pulmonary emphysema. Previously seen abnormal parenchymal groundglass opacities are now more pronounced, confluent with broader areas of groundglass attenuation, likely due to superimposed atelectasis or progression of underlying infectious or inflammatory process. Bowel pneumonitis is on the differential. 3. Ectatic ascending thoracic aorta. 4. Borderline enlarged mediastinal and right hilar lymph nodes. 5. Left atrial enlargement. Reflux of contrast material into the right hepatic veins to suggest a component of elevated right heart pressures. VTE: negative Assessment and Plan (1) Atrial fibrillation: Status: Acute This is a 74-year-old male with a history of coronary artery disease status post JL on DAPT, COPD, hypertension, dyslipidemia, and STEMI, psoriatic arthritis on Humira among others who presents to the emergency department from PCP's office with new onset atrial fibrillation with rapid ventricular response New onset atrial fibrillation with RVR Heart rate controlled on Cardizem drip Continue home dose of metoprolol Chads score of 3 making him a candidate for anticoagulation. Currently on DAPT for CAD with JL in April 2019. Will give 1 dose of therapeutic Lovenox and discuss with Cardiology regarding ongoing AC ECHO Cardiology consult Hypertension Norvasc on hold while on Cardizem drip CAD Continue aspirin, Brilinta, statin, metoprolol DVT prophylaxis-1 dose of therapeutic Lovenox Code status-full code This case was discussed with Dr. Tejeda
[2020-04-01 21:10] LABS: Magnesium 2.1 mg/dL (1.6-2.6)
[2020-04-01 21:31] LABS: Thyroid Stimulating Hormone 1.29 uIU/mL (0.32-4.0)
[2020-04-01] MEDS: Enoxaparin Sodium 100 MG/ML SYRINGE 95 MG SUBCUT (22:25)
[2020-04-01] MEDS: Atorvastatin Calcium 80 MG TABLET PO (22:25)
[2020-04-01] MEDS: Ticagrelor 90 MG TABLET PO (22:25)
[2020-04-02] VITALS (13 sets, daily range): BP systolic 92–152; BP diastolic 48–92; PULSE 66–135; RESP 18–20; TEMP 36.1–37.1; O2SAT 95–98
--- NOTE | 2020-04-02 06:06 | P.EN_ITS ---
Event Note Date of Service: 04/02/20 Event Note: patient seen evaluated independently. I agree with MADDIE note asse ssment and plan. For full note please see H&P
--- NOTE | 2020-04-02 06:06 | PM.EVENT ---
Event Note Date of Service: 04/02/20 Event Note: patient seen evaluated independently. I agree with MADDIE note assessment and plan. For full note please see H&P
[2020-04-02 06:58] LABS: Hematocrit 32.4 % (42-52); Hemoglobin 10.6 g/dl (14.0-18.0); Mean Corpuscular HGB Conc 32.7 g/dl (31.0-36.0); Mean Corpuscular Hemoglobin 33.2 pg (27.0-33.0); Mean Corpuscular Volume 101.6 fL (80-98); Mean Platelet Volume 9.9 fL (9.4-12.4); Platelet Count 169 X10*3/uL (160-400); Red Blood Count 3.19 X10*6/uL (4.60-5.80); Red Cell Distribution Width 14.2 % (11.0-16.0); White Blood Count 6.3 X10*3/uL (4.8-10.8)
[2020-04-02] MEDS: Fluticasone/Vilanterol 200/25 BLST.W.DEV 1 PUFF INHALE (07:39)
[2020-04-02] MEDS: Ticagrelor 90 MG TABLET PO ×2 (09:42→22:09)
[2020-04-02] MEDS: Aspirin 81 MG TAB.CHEW PO (09:43)
[2020-04-02] MEDS: Metoprolol Succinate ER 25 MG TAB.ER.24H PO (09:43)
--- NOTE | 2020-04-02 10:15 | MHC.CM.PN ---
CM spoke with /HCP/Julieta @ [phone] (Covid Precautions). Patient lives in a house with his and he is functionally independent. The goal for dc is for Patient to return home, no services. CM has initiated and will follow for dc planning.IMM addressed with Julieta and the original has been mailed certified letter to her and a copy has been placed on the chart. PCP- is Dr. Oswaldo RIDER.
--- NOTE | 2020-04-02 11:02 | PM.CNCAR ---
History of Present Illness History of Present Illness Date of Service: 04/02/20 Consult reason: atrial fibrillation Chief complaint: Afib rvr Narrative: This is a cardiology consultation for atrial fibrillation. Patient has been sent from the PCP's office because of atrial fibrillation with rapid rate. His heart rate was apparently in the 140s 150s. He is currently on Cardizem infusion. He states that he does not feel any palpitations or chest discomfort like angina. However, he has been having some shortness of breath the last few weeks. He is a patient in our office who sees . He underwent right coronary artery stenting in 2019. He has residual disease in the LAD and left circumflex which are being medically managed. He is still on dual antiplatelet therapy. Review of Systems Review of Systems: Yes all other systems are reviewed and are negative Cardiovascular: Cardiovascular: Reports as per HPI, Reports no additional cardiovascular complaints, Denies Abdominal Cramping after Meds, Denies Abdominal Distension, Denies cool extremities, Denies painful fingertips, Denies chest pain, Denies chest pain at rest, Denies chest pain with activity, Denies Epigastric Pain, Denies epigastric discomfort, Denies diaphoresis, Denies syncope, Denies rapid heart rate, Denies pedal edema, Denies edema, Denies irregular heart rhythm, Denies claudication, Denies leg ulcers, Denies leg edema, Denies lightheadedness, Denies Loss of Consciousness, Denies radiating jaw, neck or arm pain, Denies palpitations, Reports dyspnea, Reports dyspnea on exertion, Denies orthopnea and Denies paroxysmal nocturnal dyspnea Respiratory: Respiratory: Reports dyspnea and Reports dyspnea on exertion Neurologic: Denies syncope Endocrine: Endocrine: Denies palpitations [facility] Past Medical History Medical History Ascending aorta dilatation COPD (chronic obstructive pulmonary disease) Coronary artery disease HOLLOWAY (dyspnea on exertion) Former smoker Hypercholesterolemia Hypertension Impaired glucose tolerance Obesity (BMI 30-39.9) Psoriasis Pulmonary nodule Right renal stone Stable angina Thyroid nodule Vitamin D deficiency Wedge compression fracture of T9 vertebra Family History Family History (Updated 04/01/20 @ 20:53 by RAYNE Rodriguez) Father Heart disease Mother No problems noted. Surgical History Surgical History History of appendectomy History of lung biopsy (~2016) History of tonsillectomy Hx of cardiac catheterization (~2019) Status post angioplasty with stent Social History Social History Household Members: Spouse Housing: House Do you presently have visiting nurse or other home services: No Smoking Status: Former smoker Use of substances other than those prescribed or required for medical reasons: No Currently Displaying Signs/Symptoms of Drug Intoxication Withdrawal: No Have you been hit, kicked, punched, or otherwise hurt by someone within the past year? If so, by whom?: No Do you feel safe in your current relationship?: Yes Is there a partner from a previous relationship who is making you feel unsafe now?: No Are you made to feel afraid or neglected: No Advance Directives: No Advance Directives Information Provided: No Do you have thoughts of harming others: None Do you have a plan to hurt others: No Plan Recently lost weight without trying: No service: Yes Current occupational status: retired [employer] Allergies Allergy/AdvReac Type Severity Reaction Status Date / Time hydrochlorothiazide Allergy Unknown unknown Verified 03/09/20 14:56 lisinopril Allergy Unknown unknown Verified 03/09/20 14:56 Home Medications Medication Instructions Recorded Confirmed Type amlodipine 2.5 mg tablet 2.5 mg PO DAILY 02/08/20 04/01/20 History aspirin 81 mg chewable tablet 81 mg PO DAILY 02/08/20 04/01/20 History atorvastatin 80 mg tablet 80 mg PO BEDTIME 02/08/20 04/01/20 History budesonide-formoterol HFA 160 2 puff PO BID 02/08/20 04/01/20 History mcg-4.5 mcg/actuation aerosol inhaler metoprolol succinate 25 mg 25 mg PO DAILY 02/08/20 04/01/20 History tablet,extended release 24 hr ticagrelor 90 mg tablet 90 mg PO BID 02/08/20 04/01/20 History adalimumab 40 mg/0.8 mL 40 mg SUBCUT Q2W 04/01/20 04/01/20 History subcutaneous syringe kit Physical Exam Vital Signs: Vital Signs: Last Vital Signs Temp 97.0 F 04/02/20 08:31 Pulse 134 H 04/02/20 09:43 Resp 20 04/02/20 08:31 BP 152/70 H 04/02/20 09:43 Pulse Ox 95 04/02/20 08:31 Body Mass Index 31.1 Const: General: cooperative, comfortable and no acute distress Orientation/consciousness: patient oriented x3 HENMT: Other: Unremarkable Neck: Neck: Yes normal visual inspection Chest: Chest palpation & inspection: normal inspection of the chest Resp: Auscultation: clear to auscultation bilaterally, no crackles and no wheezes Cardio: Jugular venous distension: no JVD Palpation: normal PMI Heart sounds: S1 normal heart sound present, S2 normal heart sound present, no gallops, no murmurs and no rubs GI: Palpation (GI): Soft to palpation Back/Spine/Pelvis: Other: unremarkable Skin: General skin exam: no rashes or lesions noted Neuro: General: patient oriented x3 Extrem: General: Yes no clubbing, cyanosis or edema Psych: Mental Status: mental status grossly normal Results Labs and Meds Result diagrams: 04/02/20 06:01 04/01/20 19:07 Lab results: Laboratory Results - last 24 hr 04/01/20 04/01/20 04/01/20 16:00 16:00 16:00 WBC 7.4 RBC 3.61 L Hgb 11.9 L Hct 37.1 L MCV 102.8 H MCH 33.0 MCHC 32.1 RDW 14.2 Plt Count 175 MPV 9.8 Immature Gran % (Auto) 0.3 Neut % (Auto) 59.6 Lymph % (Auto) 28.5 [place] % (Auto) 10.0 Eos % (Auto) 1.5 Baso % (Auto) 0.1 Lymph # (Auto) 2.1 [place] # (Auto) 0.7 Eos # (Auto) 0.1 Baso # (Auto) 0.0 Abs Immat Gran (auto) 0.02 Absolute Neuts (auto) 4.4 Absolute Nucleated RBC 0.000 Nucleated RBC % (auto) 0.0 PT Cancelled INR Cancelled APTT Cancelled D-Dimer Cancelled Sodium Cancelled Potassium Cancelled Chloride Cancelled Carbon Dioxide Cancelled Anion Gap Cancelled BUN Cancelled Creatinine Cancelled Estim Creat Clear Calc Cancelled Estimated GFR Cancelled Random Glucose Cancelled Calcium Cancelled Magnesium Cancelled Total Bilirubin Cancelled AST Cancelled ALT Cancelled Alkaline Phosphatase Cancelled Troponin I High Sens B-Natriuretic Peptide Total Protein Cancelled Albumin Cancelled TSH Cancelled Urine Color Urine Appearance Urine pH Ur Specific [place] Urine Protein Urine Glucose (UA) Urine Ketones Urine Blood Urine Nitrite Ur Leukocyte Esterase Urine RBC Urine WBC Ur Squamous Epith Cells Urine Bacteria Urine Opiates Screen Ur Barbiturates Screen Ur Phencyclidine Scrn Ur Amphetamines Screen U Benzodiazepines Scrn Urine Cocaine Screen U Marijuana (THC) Screen Coronavirus (PCR) Influenza Type A (PCR) Influenza Type B (PCR) RSV RNA Qual (PCR) 04/01/20 04/01/20 04/01/20 16:00 16:00 17:18 WBC RBC Hgb Hct MCV MCH MCHC RDW Plt Count MPV Immature Gran % (Auto) Neut % (Auto) Lymph % (Auto) [place] % (Auto) Eos % (Auto) Baso % (Auto) Lymph # (Auto) [place] # (Auto) Eos # (Auto) Baso # (Auto) Abs Immat Gran (auto) Absolute Neuts (auto) Absolute Nucleated RBC Nucleated RBC % (auto) PT INR APTT D-Dimer Sodium TNP Potassium TNP Chloride TNP Carbon Dioxide TNP Anion Gap TNP BUN TNP Creatinine TNP Estim Creat Clear Calc TNP Estimated GFR TNP Random Glucose TNP Calcium TNP Magnesium TNP Total Bilirubin TNP AST TNP ALT TNP Alkaline Phosphatase TNP Troponin I High Sens 5.0 B-Natriuretic Peptide 272 H Total Protein TNP Albumin TNP TSH TNP Urine Color Urine Appearance Urine pH Ur Specific [place] Urine Protein Urine Glucose (UA) Urine Ketones Urine Blood Urine Nitrite Ur Leukocyte Esterase Urine RBC Urine WBC Ur Squamous Epith Cells Urine Bacteria Urine Opiates Screen Ur Barbiturates Screen Ur Phencyclidine Scrn Ur Amphetamines Screen U Benzodiazepines Scrn Urine Cocaine Screen U Marijuana (THC) Screen Coronavirus (PCR) NEGATIVE Influenza Type A (PCR) NEGATIVE Influenza Type B (PCR) NEGATIVE RSV RNA Qual (PCR) NEGATIVE 04/01/20 04/01/20 04/01/20 17:18 18:32 18:32 WBC RBC Hgb Hct MCV MCH MCHC RDW Plt Count MPV Immature Gran % (Auto) Neut % (Auto) Lymph % (Auto) [place] % (Auto) Eos % (Auto) Baso % (Auto) Lymph # (Auto) [place] # (Auto) Eos # (Auto) Baso # (Auto) Abs Immat Gran (auto) Absolute Neuts (auto) Absolute Nucleated RBC Nucleated RBC % (auto) PT 12.3 INR 1.0 APTT 34.5 D-Dimer < 200 Sodium Potassium Chloride Carbon Dioxide Anion Gap BUN Creatinine Estim Creat Clear Calc Estimated GFR Random Glucose Calcium Magnesium Total Bilirubin AST ALT Alkaline Phosphatase Troponin I High Sens B-Natriuretic Peptide Total Protein Albumin TSH Urine Color YELLOW Urine Appearance CLEAR Urine pH 5.5 Ur Specific [place] >= 1.030 H Urine Protein NEG Urine Glucose (UA) NEG Urine Ketones NEG Urine Blood NEG Urine Nitrite NEG Ur Leukocyte Esterase NEG Urine RBC 0-2 Urine WBC 0 Ur Squamous Epith Cells NONE Urine Bacteria 1+ Urine Opiates Screen Not Detected Ur Barbiturates Screen Not Detected Ur Phencyclidine Scrn Not Detected Ur Amphetamines Screen Not Detected U Benzodiazepines Scrn Not Detected Urine Cocaine Screen Not Detected U Marijuana (THC) Screen Not Detected Coronavirus (PCR) Influenza Type A (PCR) Influenza Type B (PCR) RSV RNA Qual (PCR) 04/01/20 04/02/20 19:07 06:01 WBC 6.3 RBC 3.19 L Hgb 10.6 L Hct 32.4 L MCV 101.6 H MCH 33.2 H MCHC 32.7 RDW 14.2 Plt Count 169 MPV 9.9 Immature Gran % (Auto) Neut % (Auto) Lymph % (Auto) [place] % (Auto) Eos % (Auto) Baso % (Auto) Lymph # (Auto) [place] # (Auto) Eos # (Auto) Baso # (Auto) Abs Immat Gran (auto) Absolute Neuts (auto) Absolute Nucleated RBC 0.000 Nucleated RBC % (auto) 0.0 PT INR APTT D-Dimer Sodium 140 Potassium 4.0 Chloride 110 H Carbon Dioxide 21 L Anion Gap 13 BUN 25 H Creatinine 0.77 Estim Creat Clear Calc 95.9 Estimated GFR > 60 Random Glucose 105 Calcium 7.8 L D Magnesium 2.1 Total Bilirubin AST ALT Alkaline Phosphatase Troponin I High Sens B-Natriuretic Peptide Total Protein Albumin TSH 1.29 Urine Color Urine Appearance Urine pH Ur Specific [place] Urine Protein Urine Glucose (UA) Urine Ketones Urine Blood Urine Nitrite Ur Leukocyte Esterase Urine RBC Urine WBC Ur Squamous Epith Cells Urine Bacteria Urine Opiates Screen Ur Barbiturates Screen Ur Phencyclidine Scrn Ur Amphetamines Screen U Benzodiazepines Scrn Urine Cocaine Screen U Marijuana (THC) Screen Coronavirus (PCR) Influenza Type A (PCR) Influenza Type B (PCR) RSV RNA Qual (PCR) Assessment and Plan (1) Atrial fibrillation with rapid ventricular response: Status: Acute (2) Atherosclerotic cardiovascular disease: Status: Acute (3) Ascending aortic aneurysm: Status: Acute EKG shows atrial fibrillation with rapid rate at 01:22/Min. On telemetry, he still in atrial fibrillation with rapid rate. Continue IV Cardizem drip. Can adjust does as guided by blood pressure and heart rate. Stop his aspirin. Start Eliquis 5 mg b.i.d.. Continue Brilinta. If he does not convert by tomorrow, then potentially DEEPA/cardioversion on Saturday or Saturday. He does not have any contraindications and he is agreeable for the procedure.
[2020-04-02] MEDS: dilTIAZem HCL 30 MG TABLET PO ×3 (11:41→22:12)
[2020-04-02] MEDS: 0.9 % Sodium Chloride Flush 3 ML SYRINGE IVFLUSH ×3 (11:42→22:14)
--- NOTE | 2020-04-02 14:46 | HO.PM.IMPN ---
Subjective Subjective Date of Service: 04/02/20 Interval History: the patient was seen and evaluated this morning Laying in bed, feels comfortable Denies any fever, chills or shortness of breath No reported other overnight events. Systemic review: No fever, chills or weakness No chest pain, palpitation No shortness of breath or coughing No abdominal pain, nausea or vomiting No urinary symptoms No any rash or wounds Physical Exam Vital Signs: Vital Signs: Last Vital Signs Temp 98.7 F 04/02/20 12:00 Pulse 85 04/02/20 14:10 Resp 18 04/02/20 12:00 BP 140/70 H 04/02/20 12:00 Pulse Ox 97 04/02/20 12:00 Body Mass Index 31.1 Constitutional : Alert, oriented, not in distress Neck : Normal inspection, Supple Cardiovascular : Irregular irregular rhythm, S1 S2, no lower extremity edema Respiratory : Good bilateral air entry, no crackles, wheezes or rhonchi Gastrointestinal: soft, lax, Normal bowel sounds, Non tender Skin : Warm/Dry, No rash Neurological : Alert & oriented x3, No focal deficit Objective Data Current Medications Generic Name Dose Route Start Last Admin Trade Name Freq PRN Reason Stop Dose Admin Acetaminophen 650 mg 04/01/20 21:49 Acetaminophen 325 Mg Tablet PO Q6H PRN Pain, Mild (Pain Scale 1-3) Apixaban 5 mg 04/02/20 12:10 Apixaban 5 Mg Tablet PO BID ON LICENSE OF [facility] Atorvastatin Calcium 80 mg 04/01/20 21:49 04/01/20 22:25 Atorvastatin Calcium 80 Mg Tablet PO 80 mg BEDTIME ON LICENSE OF [facility] Administration Diltiazem HCl 30 mg 04/02/20 10:55 04/02/20 14:10 Diltiazem Hcl 30 Mg Tablet PO Not Given QID ON LICENSE OF [facility] Protocol Docusate Sodium 100 mg 04/01/20 21:49 Docusate Sodium 100 Mg Capsule PO DAILY PRN Constipation Fluticasone/Vilanterol 1 puff 04/02/20 08:00 04/02/20 07:39 Fluticasone/Vilanterol 200/25 Blst.W.Dev INHALE 1 puff RDAILY ON LICENSE OF [facility] Administration Diltiazem HCl 125 mg/ Sodium 125 mls @ 0 mls/hr 04/01/20 16:45 04/02/20 11:43 Chloride IVCONT 0 mg/hr .Q0M FILEMON 0 mls/hr Titration Protocol Per Protocol Metoprolol Succinate 25 mg 04/02/20 09:00 04/02/20 09:43 Metoprolol Succinate Er 25 Mg Tab.Er.24h PO 25 mg DAILY FILEMON Administration Protocol Ondansetron HCl 4 mg 04/01/20 21:49 Ondansetron Hcl 4 Mg/2 Ml Vial IVPUSH Q8H PRN Nausea and Vomiting Pharmacy Consult 1 each 04/01/20 16:08 Consult Rx Perform Med Rec MISCELLANE ONCE PRN Consult order Sodium Chloride 3 ml 04/02/20 00:00 04/02/20 11:42 0.9 % Sodium Chloride Flush 3 Ml Syringe IVFLUSH 3 ml QSHIFT FILEMON Administration Ticagrelor 90 mg 04/01/20 21:49 04/02/20 09:42 Ticagrelor 90 Mg Tablet PO 90 mg BID FILEMON Administration Labs CBC & Chem 7: 04/02/20 06:01 04/01/20 19:07 Assessment and Plan (1) Atrial fibrillation with rapid ventricular response: Status: Acute (2) Atherosclerotic cardiovascular disease: Status: Acute (3) Hypertension: Problem details: Echo 50-55% April 2019 Status: Acute (4) Pulmonary nodules/lesions, multiple: Status: Acute Assessment and Plan: This is a 74-year-old male with a history of coronary artery disease status post JL on DAPT, COPD, hypertension, dyslipidemia, and STEMI, psoriatic arthritis on Humira among others who presents to the emergency department from PCP's office with new onset atrial fibrillation with rapid ventricular response New onset atrial fibrillation with RVR Continue Cardizem drip Continue home dose of metoprolol To start p.o. Cardizem To start Eliquis b.i.d and discontinue aspirin Pending ECHO Cardiology consult appreciated, if he did not convert back will consider DEEPA with cardioversion on Saturday Hypertension Norvasc on hold while on Cardizem drip CAD Continue aspirin, Brilinta, statin, metoprolol DVT prophylaxis Eliquis
[2020-04-02] MEDS: Apixaban 5 MG TABLET PO ×2 (15:55→22:08)
[2020-04-02] MEDS: dilTIAZem HCL 125 MG in 0.9 % Sodium Chloride 100 ML IVCONT (18:31)
--- NOTE | 2020-04-02 18:42 | PC.NURSE ---
Patient remains in Afib RVR. Continues on cardizem gtt. Cardizem started PO as well. Eloquis added for anticoagulation. Vitals stable. Echo obtained. Will continue to monitor.
[2020-04-02] MEDS: Atorvastatin Calcium 80 MG TABLET PO (22:08)
[2020-04-03] VITALS (11 sets, daily range): BP systolic 91–159; BP diastolic 56–86; PULSE 58–111; RESP 18–20; TEMP 36–37.1; O2SAT 95–99
--- NOTE | 2020-04-03 06:29 | PC.NURSE ---
Cardizem gtt off at 2220 last night, pt hr 50-60s afib on tele. Drip restarted this am, hr sustaining 100-110s. Will titrate per jun.
[2020-04-03 08:09] LABS: Anion Gap 13 (12-20); Blood Urea Nitrogen 18 mg/dL (9-16); Calcium 8.1 mg/dL (8.4-10.2); Carbon Dioxide 22 mmol/L (22-29); Chloride 109 mmol/L (96-108); Creatinine Clr Calc Pharmacy 93.5; Estimated Glomerular Filt Rate > 60; Glucose Random 105 mg/dL (60-115); Potassium 3.8 mmol/l (3.3-5.1); Sodium 140 mmol/L (135-145)
[2020-04-03] MEDS: Fluticasone/Vilanterol 200/25 BLST.W.DEV 1 PUFF INHALE (09:16)
[2020-04-03] MEDS: 0.9 % Sodium Chloride Flush 3 ML SYRINGE IVFLUSH ×3 (09:58→20:01)
[2020-04-03] MEDS: Ticagrelor 90 MG TABLET PO ×2 (09:58→20:00)
[2020-04-03] MEDS: dilTIAZem HCL 30 MG TABLET PO (09:58)
[2020-04-03] MEDS: Apixaban 5 MG TABLET PO ×2 (09:59→20:00)
[2020-04-03] MEDS: Metoprolol Succinate ER 25 MG TAB.ER.24H PO (09:59)
[2020-04-03] MEDS: dilTIAZem HCL 60 MG TABLET PO ×2 (12:49→17:24)
--- NOTE | 2020-04-03 13:50 | P.PNCA_ITS ---
Subjective Subjective Date of Service: 04/03/20 Interval history: He states that he feels okay. No specific complaints like angina or shortness of breath or palpitations. Review of Systems Review of Systems Review of Systems: Yes all other systems are reviewed and are negative Cardiovascular: Cardiovascular: Reports as per HPI, Reports no additional cardiovascular complaints, Denies Abdominal Cramping after Meds, Denies Abdominal Distension, Denies cool extremities, Denies painful fingertips, Denies chest pain, Denies chest pain at rest, Denies chest pain with activity, Denies Epigastric Pain, Denies epigastric discomfort, Denies diaphoresis, Denies syncope, Denies rapid heart rate, Denies pedal edema, Denies edema, Denies irregular heart rhythm, Denies claudication, Denies leg ulcers, Denies leg edema , Denies lightheadedness, Denies Loss of Consciousness, Denies radiating jaw, neck or arm pain, Denies palpitations, Reports dyspnea, Reports dyspnea on exertion, Denies orthopnea and Denies paroxysmal nocturnal dyspnea Respiratory: Respiratory: Reports dyspnea and Reports dyspnea on exertion Neurologic: Denies syncope Endocrine: Endocrine: Denies palpitations Physical Exam Vital Signs: Last Vital Signs Temp 97.8 F 04/03/20 12:00 Pulse 86 04/03/20 12:49 Resp 20 04/03/20 08:00 BP 148/78 H 04/03/20 12:00 Pulse Ox 99 04/03/20 12:00 Body Mass Index 31.1 Const General: cooperative, comfortable and no acute distress Orientation/consciousness: patient oriented x3 HENWY Other: Unremarkable Neck Neck: Yes normal visual inspection Chest Chest palpation & inspection: normal inspection of the chest Resp Auscultation: clear to auscultation bilaterally, no crackles and no wheezes Cardio Jugular venous distension: no JVD Palpation: normal PMI Heart sounds: S1 normal heart sound present, S2 normal heart sound present, no gallops, no murmurs and no rubs GI Palpation (GI): Soft to palpation Back/Spine/Pelvis Other: unremarkable Skin General skin exam: no rashes or lesions noted Neuro General: patient oriented x3 Extrem General: Yes no clubbing, cyanosis or edema Psych Mental Status: mental status grossly normal Results Labs and Meds Result diagrams: 04/02/20 06:01 04/03/20 06:16 Lab results: Laboratory Results - last 24 hr 04/03/20 06:16 Sodium 140 Potassium 3.8 Chloride 109 H Carbon Dioxide 22 Anion Gap 13 BUN 18 H Creatinine 0.79 Estim Creat Clear Calc 93.5 Estimated GFR > 60 Random Glucose 105 Calcium 8.1 L Progress Note: A&P Assessment and plan (1) Atrial fibrillation with rapid ventricular response: Status: Acute (2) Atherosclerotic cardiovascular disease: Status: Acute Assessment and Plan: On telemetry, he still in atrial fibrillation but with a much better rate control than as today. We can start oral Cardizem and uptitrate dosing so that we can wean the drip. Plan for either DEEPA/cardioversion this admission or cardioversion in 4 weeks after adequate anticoagulation. Continue Brilinta but off aspirin. Continue Eliquis. Keep NPO past midnight. Fall Risk Details Current Medications: Current Medications Generic Name Dose Route Start Last Admin Trade Name Freq PRN Reason Stop Dose Admin Acetaminophen 650 mg 04/01/20 21:49 Acetaminophen 325 Mg Tablet PO Q6H PRN Pain, Mild (Pain Scale 1-3) Apixaban 5 mg 04/02/20 12:10 04/03/20 09:59 Apixaban 5 Mg Tablet PO 5 mg BID FILEMON Administration Atorvastatin Calcium 80 mg 04/01/20 21:49 04/02/20 22:08 Atorvastatin Calcium 80 Mg Tablet PO 80 mg BEDTIME FILEMON Administration Diltiazem HCl 60 mg 04/03/20 13:00 04/03/20 12:49 Diltiazem Hcl 60 Mg Tablet PO 60 mg QID FILEMON Administration Protocol Docusate Sodium 100 mg 04/01/20 21:49 Docusate Sodium 100 Mg Capsule PO DAILY PRN Constipation Fluticasone/Vilanterol 1 puff 04/02/20 08:00 04/03/20 09:16 Fluticasone/Vilanterol 200/25 Blst.W.Dev INHALE 1 puff RDAILY FILEMON Administration Diltiazem HCl 125 mg/ Sodium 125 mls @ 0 mls/hr 04/01/20 16:45 04/03/20 09:56 Chloride IVCONT 15 mg/hr .Q0M FILEMON 15 mls/hr Titration Protocol Per Protocol Metoprolol Succinate 25 mg 04/02/20 09:00 04/03/20 09:59 Metoprolol Succinate Er 25 Mg Tab.Er.24h PO 25 mg DAILY FILEMON Administration Protocol Ondansetron HCl 4 mg 04/01/20 21:49 Ondansetron Hcl 4 Mg/2 Ml Vial IVPUSH Q8H PRN Nausea and Vomiting Pharmacy Consult 1 each 04/01/20 16:08 Consult Rx Perform Med Rec MISCELLANE ONCE PRN Consult order Sodium Chloride 3 ml 04/02/20 00:00 04/03/20 09:58 0.9 % Sodium Chloride Flush 3 Ml Syringe IVFLUSH 3 ml QSHIFT FILEMON Administration Ticagrelor 90 mg 04/01/20 21:49 04/03/20 09:58 Ticagrelor 90 Mg Tablet PO 90 mg BID FILEMON Administration Time Spent With Patient Time: Total time spent is greater than 50% in coordination of care (as documented) at patient's floor/unit and/or counseling patient: Time with patient: 15 - 24 minutes
--- NOTE | 2020-04-03 14:13 | HO.PM.IMPN ---
Subjective Subjective Date of Service: 04/03/20 Interval History: The patient was seen and evaluated this morning Laying in bed, feels comfortable Denies any fever, chills or shortness of breath Heart rate still significantly elevated in 90s to 120 knees, irregular No reported other overnight events. Systemic review: No fever, chills or weakness No chest pain, but reports feeling palpitation No shortness of breath or coughing No abdominal pain, nausea or vomiting No urinary symptoms No any rash or wounds Physical Exam Vital Signs: Vital Signs: Last Vital Signs Temp 97.8 F 04/03/20 12:00 Pulse 86 04/03/20 12:49 Resp 20 04/03/20 08:00 BP 148/78 H 04/03/20 12:00 Pulse Ox 99 04/03/20 12:00 Body Mass Index 31.1 Constitutional : Alert, oriented, not in distress Neck : Normal inspection, Supple Cardiovascular : irregular irregular rhythm, S1 S2, no lower extremity edema Respiratory : Good bilateral air entry, no crackles, wheezes or rhonchi Gastrointestinal: soft, lax, Normal bowel sounds, Non tender Skin : Warm/Dry, No rash Neurological : Alert & oriented x3, No focal deficit Objective Data Current Medications Generic Name Dose Route Start Last Admin Trade Name Freq PRN Reason Stop Dose Admin Acetaminophen 650 mg 04/01/20 21:49 Acetaminophen 325 Mg Tablet PO Q6H PRN Pain, Mild (Pain Scale 1-3) Apixaban 5 mg 04/02/20 12:10 04/03/20 09:59 Apixaban 5 Mg Tablet PO 5 mg BID FILEMON Administration Atorvastatin Calcium 80 mg 04/01/20 21:49 04/02/20 22:08 Atorvastatin Calcium 80 Mg Tablet PO 80 mg BEDTIME FILEMON Administration Diltiazem HCl 60 mg 04/03/20 13:00 04/03/20 12:49 Diltiazem Hcl 60 Mg Tablet PO 60 mg QID FILEMON Administration Protocol Docusate Sodium 100 mg 04/01/20 21:49 Docusate Sodium 100 Mg Capsule PO DAILY PRN Constipation Fluticasone/Vilanterol 1 puff 04/02/20 08:00 04/03/20 09:16 Fluticasone/Vilanterol 200/25 Blst.W.Dev INHALE 1 puff RDAILY FILEMON Administration Diltiazem HCl 125 mg/ Sodium 125 mls @ 0 mls/hr 04/01/20 16:45 04/03/20 09:56 Chloride IVCONT 15 mg/hr .Q0M FILEMON 15 mls/hr Titration Protocol Per Protocol Metoprolol Succinate 25 mg 04/02/20 09:00 04/03/20 09:59 Metoprolol Succinate Er 25 Mg Tab.Er.24h PO 25 mg DAILY FILEMON Administration Protocol Ondansetron HCl 4 mg 04/01/20 21:49 Ondansetron Hcl 4 Mg/2 Ml Vial IVPUSH Q8H PRN Nausea and Vomiting Pharmacy Consult 1 each 04/01/20 16:08 Consult Rx Perform Med Rec MISCELLANE ONCE PRN Consult order Sodium Chloride 3 ml 04/02/20 00:00 04/03/20 09:58 0.9 % Sodium Chloride Flush 3 Ml Syringe IVFLUSH 3 ml QSHIFT FILEMON Administration Ticagrelor 90 mg 04/01/20 21:49 04/03/20 09:58 Ticagrelor 90 Mg Tablet PO 90 mg BID FILEMON Administration Labs CBC & Chem 7: 04/02/20 06:01 04/03/20 06:16 Assessment and Plan (1) Atrial fibrillation with rapid ventricular response: Status: Acute (2) Atherosclerotic cardiovascular disease: Status: Acute (3) Hypertension: Problem details: Echo 50-55% April 2019 Status: Acute (4) Pulmonary nodules/lesions, multiple: Status: Acute Assessment and Plan: This is a 74-year-old male with a history of coronary artery disease status post JL on DAPT, COPD, hypertension, dyslipidemia, and STEMI, psoriatic arthritis on Humira among others who presents to the emergency department from PCP's office with new onset atrial fibrillation with rapid ventricular response New onset atrial fibrillation with RVR Continue Cardizem drip Continue home dose of metoprolol increased to 60 mg p.o. Cardizem q.6 continue Eliquis b.i.d and discontinue aspirin Pending ECHO Cardiology consult appreciated, if he did not convert back will consider DEEPA with cardioversion on Saturday Hypertension Norvasc on hold while on Cardizem drip CAD Continue aspirin, Brilinta, statin, metoprolol DVT prophylaxis Eliquis
[2020-04-03] MEDS: dilTIAZem HCL 125 MG in 0.9 % Sodium Chloride 100 ML 15 MG IVCONT (17:24)
--- NOTE | 2020-04-03 18:43 | PC.NURSE ---
Patient remains on cardizem gtt and PO cardizem. HR is Afib and rate controlled. Vitals stable. Will continue to monitor.
[2020-04-03] MEDS: Atorvastatin Calcium 80 MG TABLET PO (20:01)
--- NOTE | 2020-04-03 21:30 | ECG_ITS ---
Test Reason : RHYTHM CHANGE Blood Pressure : / mmHG Vent. Rate : 058 BPM Atrial Rate : 059 BPM P-R Int : 000 ms QRS Dur : 082 ms QT Int : 450 ms P-R-T Axes : 000 036 042 degrees QTc Int : 441 ms Atrial fibrillation with slow ventricular response Abnormal ECG When compared to the previous EKG of HR has decreased by 64 beats/min Referred By: Kye Day Electronically Signed By:Ja Jean-Baptiste
[2020-04-04] VITALS (9 sets, daily range): BP systolic 100–130; BP diastolic 66–89; PULSE 79–105; RESP 18–19; TEMP 36.1–36.6; O2SAT 94–99; BMI 31.1
[2020-04-04] MEDS: Metoprolol Succinate ER 25 MG TAB.ER.24H PO (07:45)
[2020-04-04] MEDS: 0.9 % Sodium Chloride Flush 3 ML SYRINGE IVFLUSH ×2 (07:45→15:15)
[2020-04-04] MEDS: dilTIAZem HCL 60 MG TABLET PO (07:46)
[2020-04-04] MEDS: Ticagrelor 90 MG TABLET PO (07:46)
[2020-04-04] MEDS: Apixaban 5 MG TABLET PO ×2 (07:46→20:16)
[2020-04-04] MEDS: Fluticasone/Vilanterol 200/25 BLST.W.DEV 1 PUFF INHALE (07:47)
--- NOTE | 2020-04-04 12:11 | PM.PNCARD ---
Subjective Subjective Date of Service: 04/04/20 Interval history: Saying breathing is better but still short of breath. Review of Systems Review of Systems Dyspnea Yes all other systems are reviewed and are negative Cardiovascular: Denies syncope Denies syncope Physical Exam Vital Signs: Last Vital Signs Temp 97.7 F 04/04/20 07:15 Pulse 105 H 04/04/20 07:46 Resp 18 04/04/20 07:15 BP 130/89 04/04/20 07:46 Pulse Ox 95 04/04/20 07:15 Body Mass Index 31.1 GENERAL APPEARANCE: in no acute distress, well developed, well nourished. HEENT: unremarkable. HEAD: normocephalic, atraumatic. NECK/THYROID: no carotid bruit, no jugular venous distention. SKIN: no suspicious lesions, warm and dry. HEART: no murmurs, irregularly irregular rhythm, S1, S2 normal. LUNGS: Diminished breath sounds bilaterally. ABDOMEN: normal, bowel sounds present, soft, nontender, nondistended. EXTREMITIES: no clubbing, cyanosis, or edema. PERIPHERAL PULSES: equal. NEUROLOGIC: nonfocal, alert and oriented. PSYCH: mood/affect full range. Results Labs and Meds Result diagrams: 04/02/20 06:01 04/03/20 06:16 Progress Note: A&P Assessment and plan (1) Atrial fibrillation with rapid ventricular response: Status: Acute (2) Hypertension: Problem details: Echo 50-55% April 2019 Status: Acute (3) Coronary artery disease: Problem details: NSTEMI April 2019 JL and proximal and distal RCA rotablation Status: Acute Assessment and Plan: Pleasant 74-year-old gentleman who is here for dyspnea and new onset atrial fibrillation with rapid ventricular response. He has been on Cardizem with reasonable rate control. His aspirin was stopped and he was started on apixaban along with ticagrelor. I think this combination has high bleeding risk and I am changing his ticagrelor to Plavix. He has COPD and has shortness of breath at baseline. He is saying his breathing has improved but he is still short of breath. I have advised him to ambulate the hallways with the nurse. Will check an echocardiogram today to see his LV function. If his rate control is reasonable and his LV is normal then I will let him go home and we will arrange cardioversion in 4-6 weeks. On the other hand if his symptoms do not improve despite rate control or his LVEF is abnormal on echocardiography then he will need DEEPA cardioversion tomorrow. Thank you for allowing me to participate in the care of your patient. Please feel free to contact me if you have any questions. Fall Risk Details Current Medications: Current Medications Generic Name Dose Route Start Last Admin Trade Name Freq PRN Reason Stop Dose Admin Acetaminophen 650 mg 04/01/20 21:49 Acetaminophen 325 Mg Tablet PO Q6H PRN Pain, Mild (Pain Scale 1-3) Apixaban 5 mg 04/02/20 12:10 04/04/20 07:46 Apixaban 5 Mg Tablet PO 5 mg BID FILEMON Administration Atorvastatin Calcium 80 mg 04/01/20 21:49 04/03/20 20:01 Atorvastatin Calcium 80 Mg Tablet PO 80 mg BEDTIME FILEMON Administration Diltiazem HCl 240 mg 04/04/20 11:00 Diltiazem Hcl Cd 240 Mg Cap.Er.Deg PO DAILY FILEMON Protocol Docusate Sodium 100 mg 04/01/20 21:49 Docusate Sodium 100 Mg Capsule PO DAILY PRN Constipation Fluticasone/Vilanterol 1 puff 04/02/20 08:00 04/04/20 07:47 Fluticasone/Vilanterol 200/25 Blst.W.Dev INHALE 1 puff RDAILY FILEMON Administration Diltiazem HCl 125 mg/ Sodium 125 mls @ 0 mls/hr 04/01/20 16:45 04/03/20 20:01 Chloride IVCONT 0 mg/hr .Q0M FILEMON 0 mls/hr Titration Protocol Per Protocol Metoprolol Succinate 25 mg 04/02/20 09:00 04/04/20 07:45 Metoprolol Succinate Er 25 Mg Tab.Er.24h PO 25 mg DAILY FILEMON Administration Protocol Ondansetron HCl 4 mg 04/01/20 21:49 Ondansetron Hcl 4 Mg/2 Ml Vial IVPUSH Q8H PRN Nausea and Vomiting Pharmacy Consult 1 each 04/01/20 16:08 Consult Rx Perform Med Rec MISCELLANE ONCE PRN Consult order Sodium Chloride 3 ml 04/02/20 00:00 04/04/20 07:45 0.9 % Sodium Chloride Flush 3 Ml Syringe IVFLUSH 3 ml QSHIFT FILEMON Administration Ticagrelor 90 mg 04/01/20 21:49 04/04/20 07:46 Ticagrelor 90 Mg Tablet PO 90 mg BID FILEMON Administration Time Spent With Patient Time: Total time spent is greater than 50% in coordination of care (as documented) at patient's floor/unit and/or counseling patient: Time with patient: 15 - 24 minutes
[2020-04-04] MEDS: dilTIAZem HCL CD 240 MG CAP.ER.DEG PO (12:14)
--- NOTE | 2020-04-04 12:21 | MHC.CM.PN ---
Male 74 DX AFIB/RVR Plan for Cardioversion today. DP may dc today after procedure. @ DC Pts will provide transportation. CM will follow.
[2020-04-04] MEDS: Clopidogrel Bisulfate 300 MG TABLET PO (12:39)
--- NOTE | 2020-04-04 14:23 | HO.PM.IMPN ---
Subjective Subjective Date of Service: 04/04/20 Interval History: the patient was seen and evaluated this morning Laying in bed, feels comfortable Denies any fever, chills Heart rate better controlled today, still reporting dyspnea on exertion No reported other overnight events. Systemic review: No fever, chills or weakness No chest pain, feels palpitation Reports shortness of breath and dyspnea on exertion more than baseline No abdominal pain, nausea or vomiting No urinary symptoms No any rash or wounds Physical Exam Vital Signs: Vital Signs: Last Vital Signs Temp 97.0 F 04/04/20 12:13 Pulse 89 04/04/20 12:14 Resp 18 04/04/20 12:13 BP 112/75 04/04/20 12:14 Pulse Ox 99 04/04/20 12:13 Body Mass Index 31.1 Constitutional : Alert, oriented, not in distress Neck : Normal inspection, Supple Cardiovascular : irregular irregular rhythm, S1 S2, no lower extremity edema Respiratory : Good bilateral air entry, no crackles, wheezes or rhonchi Gastrointestinal: soft, lax, Normal bowel sounds, Non tender Skin : Warm/Dry, No rash Neurological : Alert & oriented x3, No focal deficit Objective Data Current Medications Generic Name Dose Route Start Last Admin Trade Name Freq PRN Reason Stop Dose Admin Acetaminophen 650 mg 04/01/20 21:49 Acetaminophen 325 Mg Tablet PO Q6H PRN Pain, Mild (Pain Scale 1-3) Apixaban 5 mg 04/02/20 12:10 04/04/20 07:46 Apixaban 5 Mg Tablet PO 5 mg BID FILEMON Administration Atorvastatin Calcium 80 mg 04/01/20 21:49 04/03/20 20:01 Atorvastatin Calcium 80 Mg Tablet PO 80 mg BEDTIME FILEMON Administration Clopidogrel Bisulfate 75 mg 04/05/20 09:00 Clopidogrel Bisulfate 75 Mg Tablet PO DAILY FILEMON Diltiazem HCl 240 mg 04/04/20 11:00 04/04/20 12:14 Diltiazem Hcl Cd 240 Mg Cap.Er.Deg PO 240 mg DAILY FILEMON Administration Protocol Docusate Sodium 100 mg 04/01/20 21:49 Docusate Sodium 100 Mg Capsule PO DAILY PRN Constipation Fluticasone/Vilanterol 1 puff 04/02/20 08:00 04/04/20 07:47 Fluticasone/Vilanterol 200/25 Blst.W.Dev INHALE 1 puff RDAILY FILEMON Administration Diltiazem HCl 125 mg/ Sodium 125 mls @ 0 mls/hr 04/01/20 16:45 04/03/20 20:01 Chloride IVCONT 0 mg/hr .Q0M FILEMON 0 mls/hr Titration Protocol Per Protocol Metoprolol Succinate 25 mg 04/02/20 09:00 04/04/20 07:45 Metoprolol Succinate Er 25 Mg Tab.Er.24h PO 25 mg DAILY FILEMON Administration Protocol Ondansetron HCl 4 mg 04/01/20 21:49 Ondansetron Hcl 4 Mg/2 Ml Vial IVPUSH Q8H PRN Nausea and Vomiting Pharmacy Consult 1 each 04/01/20 16:08 Consult Rx Perform Med Rec MISCELLANE ONCE PRN Consult order Sodium Chloride 3 ml 04/02/20 00:00 04/04/20 07:45 0.9 % Sodium Chloride Flush 3 Ml Syringe IVFLUSH 3 ml QSHIFT FILEMON Administration Labs CBC & Chem 7: 04/02/20 06:01 04/03/20 06:16 Assessment and Plan (1) Atrial fibrillation with rapid ventricular response: Status: Acute (2) Atherosclerotic cardiovascular disease: Status: Acute (3) Hypertension: Status: Acute (4) Pulmonary nodules/lesions, multiple: Status: Acute (5) COPD (chronic obstructive pulmonary disease): Status: Acute Assessment and Plan: This is a 74-year-old male with a history of coronary artery disease status post JL on DAPT, COPD, hypertension, dyslipidemia, and STEMI, psoriatic arthritis on Humira among others who presents to the emergency department from PCP's office with new onset atrial fibrillation with rapid ventricular response New onset atrial fibrillation with RVR Rate better controlled today Discontinue Cardizem drip Continue home dose of metoprolol Change Cardizem to 240 XL today continue Eliquis b.i.d and discontinue aspirin ECHO within normal Cardiology consult appreciated, Keep NPO overnight for further evaluation for need of cardioversion tomorrow Hypertension Norvasc on hold , consider DC with addition of Cardizem CAD Continue aspirin, Brilinta, statin, metoprolol DVT prophylaxis Eliquis
[2020-04-04] MEDS: Atorvastatin Calcium 80 MG TABLET PO (20:16)
--- NOTE | 2020-04-04 21:49 | CA_ITS ---
Transthoracic Echocardiogram Patient (Last, First, Middle): Pablito Everett P Gender: Male Date of : 1945 Age: 74 Procedure Date: 04/04/2020 Procedure Type: Transthoracic Echocardiogram Location: [facility] [place] Height: 175.26 cm Weight: 95.25 kg BSA: 2.11 m2 Heart Rate: bpm BP: 109 / 67 mmHg Traffic Sign Supervisor: Referring MD: Nicky MCLAIN Symptoms: new afib Conclusions: - Normal left ventricular size, thickness, and systolic function. The visually estimated ejection fraction is between 55-60%. - Normal right ventricular cavity size and systolic function. - There is moderate calcification of the aortic valve. There is mild thickening of the aortic valve. There is no aortic valve stenosis. There is no aortic valve regurgitation. - There is mild dilatation of the ascending aorta. The visualized portions of the pulmonary artery and branches are normal. Findings Left Ventricle Normal left ventricular size, thickness, and systolic function. The visually estimated ejection fraction is between 55-60%. There is no evidence of regional wall motion abnormalities. Diastolic function is indeterminate on the basis of available data. Right Ventricle Normal right ventricular cavity size and systolic function. Atria The left atrium is severely dilated. Aortic Valve There is moderate calcification of the aortic valve. There is mild thickening of the aortic valve. There is no aortic valve stenosis. There is no aortic valve regurgitation. Mitral Valve There is moderate mitral annular calcification. There is no mitral valve regurgitation. There is no mitral valve stenosis. Pulmonic Valve Normal pulmonic valve structure and function. There is trace pulmonic valve regurgitation. Tricuspid Valve Normal tricuspid valve structure and function. There is trace tricuspid valve regurgitation. Normal right atrial pressure. There is no evidence of pulmonary hypertension. Great Vessels There is mild dilatation of the ascending aorta. The visualized portions of the pulmonary artery and branches are normal. Venous The inferior vena cava is normal in size and collapses greater than 50% with inspiration. Pericardium/Pleural There is no evidence of pericardial effusion. Prior Study Comparison Changes noted compared to prior study dated: 05/05/2019. EF normal, Patient in Afib and cannot comment about diastolic function. Measurements 2D Linear Measurements Ao Root: 3.70 2.1-3.5 cm LVOT Diam: 2.20 3.0+(-)1.3 cm 2D Systolic Function EF 4C: 40.80 >55% EF 2C: 58.90 >55% Aortic Valve AoV Pk Chato: 1.45 AoV Mn Chato: 1.03 AoV VTI: 0.23 AoV Pk Grad: 8.00 Aov Mn Grad: 5.00 RAYMOND Cont.VTI: 2.83 LVOT LVOT Pk [place]: 1.09 LVOT Mn [place]: 0.80 LVOT VTI: 0.17 LVOT Pk Grad: 5.00 LVOT Mn Grad: 3.00 LVOT Diam: 2.20 LVOT Area: 3.80 Tricuspid Valve TR Pk Chato: 2.73 TR Pk Grad: 30.00 RA Press: 3.00 RVSP: 33.00 Great Vessels Aorta Ao Root-2D: 3.70 2.0-3.7 cm Ao Asc: 4.10 2.1-3.4 cm Ao Arch: 3.20 Updated in Other Vendor System with Status of Final Ja Jean-Baptiste MD electronically signed on 04/04/2020 2:20:40 PM with status of Final
[2020-04-05] VITALS (14 sets, daily range): BP systolic 87–146; BP diastolic 50–95; PULSE 64–98; RESP 16–20; TEMP 36.1–36.9; O2SAT 95–99
--- NOTE | 2020-04-05 | ECG_ITS ---
Test Reason : POST CARDIOVERSION Blood Pressure : / mmHG Vent. Rate : 068 BPM Atrial Rate : 068 BPM P-R Int : 278 ms QRS Dur : 080 ms QT Int : 418 ms P-R-T Axes : 070 009 058 degrees QTc Int : 444 ms Sinus rhythm with first degree AV block and blocked PAC Otherwise normal ECG When compared with ECG of 01-APR-2020 15:47, Sinus rhythm has replaced Atrial fibrillation Vent. rate has decreased BY 54 BPM Referred By: Ja Jean-Baptiste Electronically Signed By:aJ Jean-Baptiste
[2020-04-05] MEDS: 0.9 % Sodium Chloride Flush 3 ML SYRINGE IVFLUSH ×4 (00:13→21:00)
[2020-04-05 07:19] LABS: Anion Gap 12 (12-20); Blood Urea Nitrogen 19 mg/dL (9-16); Calcium 8.1 mg/dL (8.4-10.2); Carbon Dioxide 23 mmol/L (22-29); Chloride 108 mmol/L (96-108); Creatinine Clr Calc Pharmacy 95.9; Estimated Glomerular Filt Rate > 60; Glucose Random 115 mg/dL (60-115); Potassium 3.7 mmol/l (3.3-5.1); Sodium 139 mmol/L (135-145)
[2020-04-05] MEDS: Fluticasone/Vilanterol 200/25 BLST.W.DEV 1 PUFF INHALE (07:27)
--- NOTE | 2020-04-05 08:59 | HO.ANESPROP2 ---
REPLACED BY [facility] Past Medical History Medical History Ascending aorta dilatation Ascending aortic aneurysm Atherosclerotic cardiovascular disease COPD (chronic obstructive pulmonary disease) Coronary artery disease HOLLOWAY (dyspnea on exertion) Former smoker Hypercholesterolemia Hypertension Impaired glucose tolerance Obesity (BMI 30-39.9) Psoriasis Pulmonary nodule Right renal stone Stable angina Thyroid nodule Vitamin D deficiency Wedge compression fracture of T9 vertebra Family History Family History Father Heart disease Mother No problems noted. Surgical History Surgical History History of appendectomy History of lung biopsy (~2016) History of tonsillectomy Hx of cardiac catheterization (~2019) Status post angioplasty with stent Social History Social History Household Members: Spouse Housing: House Do you presently have visiting nurse or other home services: No Smoking Status: Former smoker Use of substances other than those prescribed or required for medical reasons: No Currently Displaying Signs/Symptoms of Drug Intoxication Withdrawal: No Have you been hit, kicked, punched, or otherwise hurt by someone within the past year? If so, by whom?: No Do you feel safe in your current relationship?: Yes Is there a partner from a previous relationship who is making you feel unsafe now?: No Are you made to feel afraid or neglected: No Advance Directives: No Advance Directives Information Provided: No Do you have thoughts of harming others: None Do you have a plan to hurt others: No Plan Recently lost weight without trying: No service: Yes Current occupational status: retired Meds Allergies Allergy/AdvReac Type Severity Reaction Status Date / Time hydrochlorothiazide Allergy Unknown unknown Verified 03/09/20 14:56 lisinopril Allergy Unknown unknown Verified 03/09/20 14:56 Home Medications Medication Instructions Recorded Confirmed Type amlodipine 2.5 mg tablet 2.5 mg PO DAILY 02/08/20 04/01/20 History aspirin 81 mg chewable tablet 81 mg PO DAILY 02/08/20 04/01/20 History atorvastatin 80 mg tablet 80 mg PO BEDTIME 02/08/20 04/01/20 History budesonide-formoterol HFA 160 2 puff PO BID 02/08/20 04/01/20 History mcg-4.5 mcg/actuation aerosol inhaler metoprolol succinate 25 mg 25 mg PO DAILY 02/08/20 04/01/20 History tablet,extended release 24 hr ticagrelor 90 mg tablet 90 mg PO BID 02/08/20 04/01/20 History adalimumab 40 mg/0.8 mL 40 mg SUBCUT Q2W 04/01/20 04/01/20 History subcutaneous syringe kit Exam Exam Date and Time: April 05, 2020 0859 Height,Weight and Vital Signs: Height 5 ft 9 in Weight 95.5 kg Last Vital Signs Temp 97.9 F 04/05/20 07:00 Pulse 98 04/05/20 07:00 Resp 18 04/05/20 07:00 BP 100/70 04/05/20 07:00 Pulse Ox 97 04/05/20 07:00 Pertinent Lab Results Pertinent Lab Results: Laboratory Tests 04/01/20 04/01/20 04/01/20 16:00 16:00 16:00 WBC 7.4 RBC 3.61 L Hgb 11.9 L Hct 37.1 L MCV 102.8 H MCH 33.0 MCHC 32.1 RDW 14.2 Plt Count 175 MPV 9.8 Immature Gran % (Auto) 0.3 Neut % (Auto) 59.6 Lymph % (Auto) 28.5 [place] % (Auto) 10.0 Eos % (Auto) 1.5 Baso % (Auto) 0.1 Lymph # (Auto) 2.1 [place] # (Auto) 0.7 Eos # (Auto) 0.1 Baso # (Auto) 0.0 Abs Immat Gran (auto) 0.02 Absolute Neuts (auto) 4.4 Absolute Nucleated RBC 0.000 Nucleated RBC % (auto) 0.0 PT Cancelled INR Cancelled APTT Cancelled D-Dimer Cancelled Sodium Cancelled Potassium Cancelled Chloride Cancelled Carbon Dioxide Cancelled Anion Gap Cancelled BUN Cancelled Creatinine Cancelled Estim Creat Clear Calc Cancelled Estimated GFR Cancelled Random Glucose Cancelled Calcium Cancelled Magnesium Cancelled Total Bilirubin Cancelled AST Cancelled ALT Cancelled Alkaline Phosphatase Cancelled Troponin I High Sens B-Natriuretic Peptide Total Protein Cancelled Albumin Cancelled TSH Cancelled Urine Color Urine Appearance Urine pH Ur Specific [place] Urine Protein Urine Glucose (UA) Urine Ketones Urine Blood Urine Nitrite Ur Leukocyte Esterase Urine RBC Urine WBC Ur Squamous Epith Cells Urine Bacteria Urine Opiates Screen Ur Barbiturates Screen Ur Phencyclidine Scrn Ur Amphetamines Screen U Benzodiazepines Scrn Urine Cocaine Screen U Marijuana (THC) Screen Coronavirus (PCR) Influenza Type A (PCR) Influenza Type B (PCR) RSV RNA Qual (PCR) 04/01/20 04/01/20 04/01/20 16:00 16:00 17:18 WBC RBC Hgb Hct MCV MCH MCHC RDW Plt Count MPV Immature Gran % (Auto) Neut % (Auto) Lymph % (Auto) [place] % (Auto) Eos % (Auto) Baso % (Auto) Lymph # (Auto) [place] # (Auto) Eos # (Auto) Baso # (Auto) Abs Immat Gran (auto) Absolute Neuts (auto) Absolute Nucleated RBC Nucleated RBC % (auto) PT INR APTT D-Dimer Sodium TNP Potassium TNP Chloride TNP Carbon Dioxide TNP Anion Gap TNP BUN TNP Creatinine TNP Estim Creat Clear Calc TNP Estimated GFR TNP Random Glucose TNP Calcium TNP Magnesium TNP Total Bilirubin TNP AST TNP ALT TNP Alkaline Phosphatase TNP Troponin I High Sens 5.0 B-Natriuretic Peptide 272 H Total Protein TNP Albumin TNP TSH TNP Urine Color Urine Appearance Urine pH Ur Specific [place] Urine Protein Urine Glucose (UA) Urine Ketones Urine Blood Urine Nitrite Ur Leukocyte Esterase Urine RBC Urine WBC Ur Squamous Epith Cells Urine Bacteria Urine Opiates Screen Ur Barbiturates Screen Ur Phencyclidine Scrn Ur Amphetamines Screen U Benzodiazepines Scrn Urine Cocaine Screen U Marijuana (THC) Screen Coronavirus (PCR) NEGATIVE Influenza Type A (PCR) NEGATIVE Influenza Type B (PCR) NEGATIVE RSV RNA Qual (PCR) NEGATIVE 04/01/20 04/01/20 04/01/20 17:18 18:32 18:32 WBC RBC Hgb Hct MCV MCH MCHC RDW Plt Count MPV Immature Gran % (Auto) Neut % (Auto) Lymph % (Auto) [place] % (Auto) Eos % (Auto) Baso % (Auto) Lymph # (Auto) [place] # (Auto) Eos # (Auto) Baso # (Auto) Abs Immat Gran (auto) Absolute Neuts (auto) Absolute Nucleated RBC Nucleated RBC % (auto) PT 12.3 INR 1.0 APTT 34.5 D-Dimer < 200 Sodium Potassium Chloride Carbon Dioxide Anion Gap BUN Creatinine Estim Creat Clear Calc Estimated GFR Random Glucose Calcium Magnesium Total Bilirubin AST ALT Alkaline Phosphatase Troponin I High Sens B-Natriuretic Peptide Total Protein Albumin TSH Urine Color YELLOW Urine Appearance CLEAR Urine pH 5.5 Ur Specific [place] >= 1.030 H Urine Protein NEG Urine Glucose (UA) NEG Urine Ketones NEG Urine Blood NEG Urine Nitrite NEG Ur Leukocyte Esterase NEG Urine RBC 0-2 Urine WBC 0 Ur Squamous Epith Cells NONE Urine Bacteria 1+ Urine Opiates Screen Not Detected Ur Barbiturates Screen Not Detected Ur Phencyclidine Scrn Not Detected Ur Amphetamines Screen Not Detected U Benzodiazepines Scrn Not Detected Urine Cocaine Screen Not Detected U Marijuana (THC) Screen Not Detected Coronavirus (PCR) Influenza Type A (PCR) Influenza Type B (PCR) RSV RNA Qual (PCR) 04/01/20 04/02/20 04/03/20 19:07 06:01 06:16 WBC 6.3 RBC 3.19 L Hgb 10.6 L Hct 32.4 L MCV 101.6 H MCH 33.2 H MCHC 32.7 RDW 14.2 Plt Count 169 MPV 9.9 Immature Gran % (Auto) Neut % (Auto) Lymph % (Auto) [place] % (Auto) Eos % (Auto) Baso % (Auto) Lymph # (Auto) [place] # (Auto) Eos # (Auto) Baso # (Auto) Abs Immat Gran (auto) Absolute Neuts (auto) Absolute Nucleated RBC 0.000 Nucleated RBC % (auto) 0.0 PT INR APTT D-Dimer Sodium 140 140 Potassium 4.0 3.8 Chloride 110 H 109 H Carbon Dioxide 21 L 22 Anion Gap 13 13 BUN 25 H 18 H Creatinine 0.77 0.79 Estim Creat Clear Calc 95.9 93.5 Estimated GFR > 60 > 60 Random Glucose 105 105 Calcium 7.8 L D 8.1 L Magnesium 2.1 Total Bilirubin AST ALT Alkaline Phosphatase Troponin I High Sens B-Natriuretic Peptide Total Protein Albumin TSH 1.29 Urine Color Urine Appearance Urine pH Ur Specific [place] Urine Protein Urine Glucose (UA) Urine Ketones Urine Blood Urine Nitrite Ur Leukocyte Esterase Urine RBC Urine WBC Ur Squamous Epith Cells Urine Bacteria Urine Opiates Screen Ur Barbiturates Screen Ur Phencyclidine Scrn Ur Amphetamines Screen U Benzodiazepines Scrn Urine Cocaine Screen U Marijuana (THC) Screen Coronavirus (PCR) Influenza Type A (PCR) Influenza Type B (PCR) RSV RNA Qual (PCR) 04/05/20 05:54 WBC RBC Hgb Hct MCV MCH MCHC RDW Plt Count MPV Immature Gran % (Auto) Neut % (Auto) Lymph % (Auto) [place] % (Auto) Eos % (Auto) Baso % (Auto) Lymph # (Auto) [place] # (Auto) Eos # (Auto) Baso # (Auto) Abs Immat Gran (auto) Absolute Neuts (auto) Absolute Nucleated RBC Nucleated RBC % (auto) PT INR APTT D-Dimer Sodium 139 Potassium 3.7 Chloride 108 Carbon Dioxide 23 Anion Gap 12 BUN 19 H Creatinine 0.77 Estim Creat Clear Calc 95.9 Estimated GFR > 60 Random Glucose 115 Calcium 8.1 L Magnesium Total Bilirubin AST ALT Alkaline Phosphatase Troponin I High Sens B-Natriuretic Peptide Total Protein Albumin TSH Urine Color Urine Appearance Urine pH Ur Specific [place] Urine Protein Urine Glucose (UA) Urine Ketones Urine Blood Urine Nitrite Ur Leukocyte Esterase Urine RBC Urine WBC Ur Squamous Epith Cells Urine Bacteria Urine Opiates Screen Ur Barbiturates Screen Ur Phencyclidine Scrn Ur Amphetamines Screen U Benzodiazepines Scrn Urine Cocaine Screen U Marijuana (THC) Screen Coronavirus (PCR) Influenza Type A (PCR) Influenza Type B (PCR) RSV RNA Qual (PCR) Airway Mallampati Class: II TM Dist: >3cm Neck ROM: Full Loose/Missing/Broken Teeth: No Heart: RRR Lungs: CTA Assessment and Plan Assessment Anesthesia Assessment: Anesthesia Plan Discussed and Chart Reviewed Final Anesthetic Review NPO: Yes ASA Class: III Final Preanesthetic Review: No Changes in Pt Med Stat, Consent Obtained/Reviewed and Anes Risks/Benef Reviewed Patient Risk: Intermediate Procedure Risk: Intermediate Anesthetic Plan Anesthetic Plan: MAC: Disposition: Standard PACU
[2020-04-05] MEDS: Metoprolol Succinate ER 25 MG TAB.ER.24H PO (09:14)
[2020-04-05] MEDS: dilTIAZem HCL CD 240 MG CAP.ER.DEG PO (09:14)
[2020-04-05] MEDS: Apixaban 5 MG TABLET PO ×2 (09:20→20:59)
[2020-04-05] MEDS: Clopidogrel Bisulfate 75 MG TABLET PO (09:20)
--- NOTE | 2020-04-05 11:00 | CA_ITS ---
Transesophageal Echocardiogram Patient (Last, First, Middle): Pablito Everett P Gender: Male Date of : 1945 Age: 74 Procedure Date: 04/05/2020 Procedure Type: Transesophageal Echocardiogram Location: [facility] [place] Height: 172.72 cm Weight: kg Mri Supervisor: Referring MD: Kye Day MD Symptoms: AFIB Conclusion: ??? There is no evidence of thrombus or mass in the left atrium/atrial appendage. ??? We proceeded with cardioversion. Findings Procedure Information Consent was obtained prior to the procedure. The adult omniplane probe was passed with minimal difficulty. Left Ventricle Normal left ventricular size and systolic function. The visually estimated ejection fraction is between 55-60%. There is no evidence of regional wall motion abnormalities. Diastolic function is indeterminate on the basis of available data. Right Ventricle Normal right ventricular cavity size and systolic function. Atria There is no evidence of thrombus or mass in the left atrium. Aortic Valve There is a normal trileaflet aortic valve. There is moderate calcification of the aortic valve. There is mild thickening of the aortic valve. There is no aortic valve stenosis. Mitral Valve Normal mitral valve structure and function. There is trace mitral valve regurgitation. Pulmonic Valve The pulmonic valve was not well visualized. Tricuspid Valve Normal tricuspid valve structure. Great Vessels The pulmonary artery was not well visualized. Small plaque is seen in the descending thoracic aorta. Venous The inferior vena cava was not well visualized. Pericardium/Pleural There is no evidence of pericardial effusion. Updated by Ja Jean-Baptiste on 03:28 PM with Status of Final Ja Jean-Baptiste MD electronically signed on 04/05/2020 3:28:57 PM with status of Final
--- NOTE | 2020-04-05 11:08 | MHC.SHP ---
Pre-Procedural Eval Section A The patient is an INPATIENT: Yes The History & Physical has been completed within 30 days and I have reviewed it.: Yes Section B Chief Complaint: Afib rvr Allergies: Allergies Allergy/AdvReac Type Severity Reaction Status Date / Time hydrochlorothiazide Allergy Unknown unknown Verified 03/09/20 14:56 lisinopril Allergy Unknown unknown Verified 03/09/20 14:56 Plan Diagnosis/Plan: Unchanged Patient has been examined and remains a candidate for the planned procedure
--- NOTE | 2020-04-05 12:29 | PM.PNCARD ---
Subjective Subjective Date of Service: 04/05/20 Principal diagnosis: Atrial fibrillation Interval history: Cardiology follow up for afib. Pt was seen in his room a 0930. Today he reports that he is feeling better with less heart palpitations. He has some improvement in breathing but definitely continues to have sob with activity. No CP. Ambulating steady in room. Planning to have cardioversion today Review of Systems Review of Systems Yes all other systems are reviewed and are negative Reports system reviewed and no additional complaints, except as documented and Denies dizziness Cardiovascular: Denies chest pain, Denies chest pain at rest, Denies chest pain with activity, Denies syncope, Reports rapid heart rate, Reports irregular heart rhythm, Reports dyspnea and Reports dyspnea on exertion Respiratory: Denies chest congestion, Denies cough, Denies hemoptysis, Denies pain on inspiration, Reports dyspnea and Reports dyspnea on exertion Gastrointestinal: Reports no additional gastrointestinal complaints and Denies abdominal pain Musculoskeletal: Reports no additional musculoskeletal complaints Denies confusion, Denies dizziness and Denies syncope Psychiatric: Denies confusion Physical Exam Vital Signs: Last Vital Signs Temp 97.9 F 04/05/20 11:53 Pulse 76 04/05/20 12:08 Resp 18 04/05/20 12:08 BP 95/70 04/05/20 12:08 Pulse Ox 97 04/05/20 12:08 Body Mass Index 31.1 Const General: No confusion Orientation/consciousness: No confusion HENMT Head: Yes normal to inspection Neck Neck: Yes normal visual inspection and Yes no JVD Resp Effort & Inspection: normal respiratory effort, able to speak in complete sentences and not labored Auscultation: clear to auscultation bilaterally, no crackles, no rales, no rhonchi and no wheezes Cardio Other: heart tones without murmur, irregularly, irregular Palpation: normal PMI Heart sounds: S1 normal heart sound present and S2 normal heart sound present Peripheral pulses: Peripheral pulses 2+ throughout GI Inspection: Yes normal to inspection Skin General skin exam: no rashes or lesions noted Neuro General: No confusion Extrem General: Yes normal to inspection and No edema Results Labs and Meds Result diagrams: 04/02/20 06:01 04/05/20 05:54 Lab results: Laboratory Results - last 24 hr 04/05/20 05:54 Sodium 139 Potassium 3.7 Chloride 108 Carbon Dioxide 23 Anion Gap 12 BUN 19 H Creatinine 0.77 Estim Creat Clear Calc 95.9 Estimated GFR > 60 Random Glucose 115 Calcium 8.1 L Progress Note: A&P Assessment and plan (1) Atrial fibrillation with rapid ventricular response: Status: Acute Assessment and Plan: Admit with new atrial fibrillation, RVR. Has been treated for rate control. His aspirin was stopped and Eliquis started for anticoagulation. His Brilinta was changed to plavix. Tele monitornow shows Afib rates 60s-90s. He continues to report sob with activity, inspite of better heart rate control. Echo shows EF 55-60%, normal RV. Plan for DEEPA CVR today with Dr Jean-Baptiste. NPO at present. Spent time going over this procedure with pt, including risks and he is agreeable to proceed. (2) HOLLOWAY (dyspnea on exertion): Status: Acute Assessment and Plan: as above (3) Coronary artery disease: Problem details: NSTEMI April 2019 JL and proximal and distal RCA rotablation Status: Acute Assessment and Plan: No report of chest discomfort at rest or activity. Continue Plavix and Eliquis. Continue high dose atorvastatin and metoprolol. Follows as outpt with Dr Jean-Baptiste. Fall Risk Details Current Medications: Current Medications Generic Name Dose Route Start Last Admin Trade Name Freq PRN Reason Stop Dose Admin Acetaminophen 650 mg 04/01/20 21:49 Acetaminophen 325 Mg Tablet PO Q6H PRN Pain, Mild (Pain Scale 1-3) Acetaminophen 650 mg 04/05/20 10:55 Acetaminophen 325 Mg Tablet PO ONCE PRN Pain, Mild (Pain Scale 1-3) Apixaban 5 mg 04/02/20 12:10 04/05/20 09:20 Apixaban 5 Mg Tablet PO 5 mg BID FILEMON Administration Atorvastatin Calcium 80 mg 04/01/20 21:49 04/04/20 20:16 Atorvastatin Calcium 80 Mg Tablet PO 80 mg BEDTIME FILEMON Administration Clopidogrel Bisulfate 75 mg 04/05/20 09:00 04/05/20 09:20 Clopidogrel Bisulfate 75 Mg Tablet PO 75 mg DAILY FILEMON Administration Diltiazem HCl 240 mg 04/04/20 11:00 04/05/20 09:14 Diltiazem Hcl Cd 240 Mg Cap.Er.Deg PO 240 mg DAILY FILEMON Administration Protocol Docusate Sodium 100 mg 04/01/20 21:49 Docusate Sodium 100 Mg Capsule PO DAILY PRN Constipation Fluticasone/Vilanterol 1 puff 04/02/20 08:00 04/05/20 07:27 Fluticasone/Vilanterol 200/25 Blst.W.Dev INHALE 1 puff RDAILY FILEMON Administration Metoprolol Succinate 25 mg 04/02/20 09:00 04/05/20 09:14 Metoprolol Succinate Er 25 Mg Tab.Er.24h PO 25 mg DAILY FILEMON Administration Protocol Ondansetron HCl 4 mg 04/01/20 21:49 Ondansetron Hcl 4 Mg/2 Ml Vial IVPUSH Q8H PRN Nausea and Vomiting Ondansetron HCl 4 mg 04/05/20 10:55 Ondansetron Hcl 4 Mg/2 Ml Vial IVPUSH ONCE PRN Nausea and Vomiting Pharmacy Consult 1 each 04/01/20 16:08 Consult Rx Perform Med Rec MISCELLANE ONCE PRN Consult order Sodium Chloride 3 ml 04/02/20 00:00 04/05/20 09:14 0.9 % Sodium Chloride Flush 3 Ml Syringe IVFLUSH 3 ml QSHIFT FILEMON Administration Time Spent With Patient Time: Total time spent is greater than 50% in coordination of care (as documented) at patient's floor/unit and/or counseling patient: Time with patient: 15 - 24 minutes
--- NOTE | 2020-04-05 14:06 | HO.CARDIVERS ---
Cardioversion Procedure Note Cardioversion Date of Procedure: 04/05/2020 Ordering Provider: Ja Jean-Baptiste MD Performing Provider: Ja Jean-Baptiste MD Indication for Procedure: Atrial fibrillation Pre-Op Diagnosis: Atrial fibrillation Post-Op Diagnosis: Atrial fibrillation Performed with Transesophageal Echo: Yes DEEPA findings (if DEEPA Performed): No clot seen in the left atrial appendage or the left atrium. History: 74-year-old gentleman with new onset atrial fibrillation and dyspnea on exertion here for DEEPA cardioversion. Consent: Verbal and Written consent was obtained from the patient before starting. The patient was made aware of the risk of stroke. Procedure: After consent obtained, defib pads were attached and the patient was sedated by the anesthesia team. Once adequate sedation achieved, patient was given a synchronized shock of 200 joules which reverted him to sinus rhythm. He was left with the anesthesia team for recovery in a stable condition. Complications: None Impression: Successful cardioversion. Recommendations: Continue Cardizem and metoprolol. He will continue Eliquis. We will give further recommendations for his ongoing inpatient care.
--- NOTE | 2020-04-05 14:25 | HO.PM.IMPN ---
Subjective Subjective Date of Service: 04/05/20 Interval History: the patient was seen and evaluated this Had cardioversion done in the morning with returned to sinus rhythm Denies any fever, chills or shortness of breath No reported other overnight events. Systemic review: No fever, chills or weakness No chest pain, palpitation Dyspnea on exertion No abdominal pain, nausea or vomiting No urinary symptoms No any rash or wounds Physical Exam Vital Signs: Vital Signs: Last Vital Signs Temp 98.0 F 04/05/20 12: Pulse 74 04/05/20 12:23 Resp 18 04/05/20 12:23 BP 105/72 04/05/20 12:23 Pulse Ox 97 04/05/20 12:23 Body Mass Index 31.1 Constitutional : Alert, oriented, not in distress Neck : Normal inspection, Supple Cardiovascular : RRR, S1 S2, no lower extremity edema Respiratory : Good bilateral air entry, no crackles, wheezes or rhonchi Gastrointestinal: soft, lax, Normal bowel sounds, Non tender Skin : Warm/Dry, No rash Neurological : Alert & oriented x3, No focal deficit Objective Data Current Medications Generic Name Dose Route Start Last Admin Trade Name Freq PRN Reason Stop Dose Admin Acetaminophen 650 mg 04/01/20 21:49 Acetaminophen 325 Mg Tablet PO Q6H PRN Pain, Mild (Pain Scale 1-3) Acetaminophen 650 mg 04/05/20 10:55 Acetaminophen 325 Mg Tablet PO ONCE PRN Pain, Mild (Pain Scale 1-3) Apixaban 5 mg 04/02/20 12:10 04/05/20 09:20 Apixaban 5 Mg Tablet PO 5 mg BID FILEMON Administration Atorvastatin Calcium 80 mg 04/01/20 21:49 04/04/20 20:16 Atorvastatin Calcium 80 Mg Tablet PO 80 mg BEDTIME FILEMON Administration Clopidogrel Bisulfate 75 mg 04/05/20 09:00 04/05/20 09:20 Clopidogrel Bisulfate 75 Mg Tablet PO 75 mg DAILY FILEMON Administration Diltiazem HCl 240 mg 04/04/20 11:00 04/05/20 09:14 Diltiazem Hcl Cd 240 Mg Cap.Er.Deg PO 240 mg DAILY FILEMON Administration Protocol Docusate Sodium 100 mg 04/01/20 21:49 Docusate Sodium 100 Mg Capsule PO DAILY PRN Constipation Fluticasone/Vilanterol 1 puff 04/02/20 08:00 04/05/20 07:27 Fluticasone/Vilanterol 200/25 Blst.W.Dev INHALE 1 puff RDAILY FILEMON Administration Metoprolol Succinate 25 mg 04/02/20 09:00 04/05/20 09:14 Metoprolol Succinate Er 25 Mg Tab.Er.24h PO 25 mg DAILY FILEMON Administration Protocol Ondansetron HCl 4 mg 04/01/20 21:49 Ondansetron Hcl 4 Mg/2 Ml Vial IVPUSH Q8H PRN Nausea and Vomiting Ondansetron HCl 4 mg 04/05/20 10:55 Ondansetron Hcl 4 Mg/2 Ml Vial IVPUSH ONCE PRN Nausea and Vomiting Pharmacy Consult 1 each 04/01/20 16:08 Consult Rx Perform Med Rec MISCELLANE ONCE PRN Consult order Sodium Chloride 3 ml 04/02/20 00:00 04/05/20 09:14 0.9 % Sodium Chloride Flush 3 Ml Syringe IVFLUSH 3 ml QSHIFT FILEMON Administration Labs CBC & Chem 7: 04/02/20 06:01 04/05/20 05:54 Assessment and Plan (1) Atrial fibrillation with rapid ventricular response: Status: Acute (2) Atherosclerotic cardiovascular disease: Status: Acute (3) Hypertension: Status: Acute (4) Pulmonary nodules/lesions, multiple: Status: Acute (5) COPD (chronic obstructive pulmonary disease): Status: Acute Assessment and Plan: This is a 74-year-old male with a history of coronary artery disease status post JL on DAPT, COPD, hypertension, dyslipidemia, and STEMI, psoriatic arthritis on Humira among others who presents to the emergency department from PCP's office with new onset atrial fibrillation with rapid ventricular response New onset atrial fibrillation with RVR Post cardioversion this morning Continue home dose of metoprolol Change Cardizem to 240 XL today continue Eliquis b.i.d and discontinue aspirin Continue Brilinta ECHO within normal Cardiology input appreciated, can be discharged in the morning if heart rate maintains controlled Hypertension Norvasc on hold , consider DC with addition of Cardizem CAD Continue aspirin, Brilinta, statin, metoprolol DVT prophylaxis Eliquis
[2020-04-05] MEDS: Atorvastatin Calcium 80 MG TABLET PO (20:59)
[2020-04-06 07:12] VITALS: BP 128/80; PULSE 82; RESP 18; TEMP 36.4; O2SAT 98
[2020-04-06] MEDS: Fluticasone/Vilanterol 200/25 BLST.W.DEV 1 PUFF INHALE (07:58)
[2020-04-06 08:00] VITALS: PULSE 81; O2SAT 98
[2020-04-06 08:37] VITALS: BP 128/80; PULSE 82
[2020-04-06] MEDS: dilTIAZem HCL CD 240 MG CAP.ER.DEG PO (08:37)
[2020-04-06] MEDS: Apixaban 5 MG TABLET PO (08:38)
[2020-04-06 08:40] VITALS: BP 128/80; PULSE 82
[2020-04-06] MEDS: Metoprolol Succinate ER 25 MG TAB.ER.24H PO (08:40)
[2020-04-06] MEDS: 0.9 % Sodium Chloride Flush 3 ML SYRINGE IVFLUSH (08:40)
[2020-04-06] MEDS: Clopidogrel Bisulfate 75 MG TABLET PO (08:40)
[2020-04-06 10:52] VITALS: BP 116/70; PULSE 79; RESP 18; TEMP 36.6; O2SAT 97
[2020-04-06 10:54] VITALS: O2SAT 97
--- NOTE | 2020-04-06 12:43 | PM.PNCARD ---
Subjective Subjective Date of Service: 04/06/20 Principal diagnosis: Atrial fibrillation, s/p GHULAM CVR Interval history: Cardiology follow up for AF. Today he reports feeling great. His breathing has improved since conversion to SR. He denies any sob, CP, palpitations, dizziness. No hx of presyncope, syncope. No known hx of sleep apnea. Hoping to go home today. Review of Systems Review of Systems Yes all other systems are reviewed and are negative Cardiovascular: Denies chest pain, Denies chest pain at rest, Denies chest pain with activity, Denies irregular heart rhythm, Denies dyspnea and Denies dyspnea on exertion Respiratory: Denies chest congestion, Denies cough, Denies hemoptysis, Denies pain on inspiration, Denies dyspnea and Denies dyspnea on exertion Physical Exam Vital Signs: Last Vital Signs Temp 97.8 F 04/06/20 10:52 Pulse 79 04/06/20 10:52 Resp 18 04/06/20 10:52 BP 116/70 04/06/20 10:52 Pulse Ox 97 04/06/20 10:54 Body Mass Index 31.1 Const General: cooperative, healthy appearing, no acute distress, alert and awake [facility] Head: Yes normal to inspection Eyes Sclerae: sclerae normal Neck Neck: Yes normal visual inspection Carotids: normal carotid upstroke Chest Chest palpation & inspection: normal inspection of the chest Resp Effort & Inspection: normal respiratory effort, able to speak in complete sentences and not labored Auscultation: clear to auscultation bilaterally, no crackles, no rales, no rhonchi and no wheezes Cardio Jugular venous distension: no JVD Rate: regular rate Rhythm: regular rhythm Heart sounds: S1 normal heart sound present and S2 normal heart sound present Peripheral pulses: Peripheral pulses 2+ throughout GI Inspection: Yes normal to inspection Extrem General: Yes normal to inspection and No edema Results Labs and Meds Result diagrams: 04/02/20 06:01 04/05/20 05:54 Progress Note: A&P Assessment and plan (1) Atrial fibrillation with rapid ventricular response: Problem details: Ghulam with cardioversion March 2020 Status: Acute Assessment and Plan: Admit with symptomatic new afib RVR. Treated for rate control and continued to report shortness of breath. Underwent GHULAM CVR yesterday with Dr Jean-Baptiste. Successfully converted to SR. Tele showing ongoing SR, during the night had brief episodes of second degree type 1 heart block, Wenkebach, rhythm. No wenkebach noted during the daytime hours while awake. Tele strips reviewed with Dr Jean-Baptiste. Will stop Metoprolol. Will continue Diltiazem. Will obtain holter monitor in 1-2 weeks. Continue Eliquis for anticoagulation. Can be discharged from cardiology perspective. We will follow him as outpt (2) Wenckebach: Status: Acute Assessment and Plan: Noted during sleep hours (3) Atherosclerotic cardiovascular disease: Status: Acute Assessment and Plan: Hx of CAD with NSTEMI, cardiac cath 04/2019 showing RCA stenosis and JL placed to proximal RCA. No report of anginal symptoms. Continue Plavix. Keep off aspirin as he is now on Eliquis. Stopping Metoprolol. Fall Risk Details Current Medications: Current Medications Generic Name Dose Route Start Last Admin Trade Name Freq PRN Reason Stop Dose Admin Acetaminophen 650 mg 04/01/20 21:49 Acetaminophen 325 Mg Tablet PO Q6H PRN Pain, Mild (Pain Scale 1-3) Acetaminophen 650 mg 04/05/20 10:55 Acetaminophen 325 Mg Tablet PO ONCE PRN Pain, Mild (Pain Scale 1-3) Apixaban 5 mg 04/02/20 12:10 04/06/20 08:38 Apixaban 5 Mg Tablet PO 5 mg BID FILEMON Administration Atorvastatin Calcium 80 mg 04/01/20 21:49 04/05/20 20:59 Atorvastatin Calcium 80 Mg Tablet PO 80 mg BEDTIME FILEMON Administration Clopidogrel Bisulfate 75 mg 04/05/20 09:00 04/06/20 08:40 Clopidogrel Bisulfate 75 Mg Tablet PO 75 mg DAILY FILEMON Administration Diltiazem HCl 240 mg 04/04/20 11:00 04/06/20 08:37 Diltiazem Hcl Cd 240 Mg Cap.Er.Deg PO 240 mg DAILY FILEMON Administration Protocol Docusate Sodium 100 mg 04/01/20 21:49 Docusate Sodium 100 Mg Capsule PO DAILY PRN Constipation Fluticasone/Vilanterol 1 puff 04/02/20 08:00 04/06/20 07:58 Fluticasone/Vilanterol 200/25 Blst.W.Dev INHALE 1 puff RDAILY FILEMON Administration Metoprolol Succinate 25 mg 04/02/20 09:00 04/06/20 08:40 Metoprolol Succinate Er 25 Mg Tab.Er.24h PO 25 mg DAILY FILEMON Administration Protocol Ondansetron HCl 4 mg 04/01/20 21:49 Ondansetron Hcl 4 Mg/2 Ml Vial IVPUSH Q8H PRN Nausea and Vomiting Ondansetron HCl 4 mg 04/05/20 10:55 Ondansetron Hcl 4 Mg/2 Ml Vial IVPUSH ONCE PRN Nausea and Vomiting Pharmacy Consult 1 each 04/01/20 16:08 Consult Rx Perform Med Rec MISCELLANE ONCE PRN Consult order Sodium Chloride 3 ml 04/02/20 00:00 04/06/20 08:40 0.9 % Sodium Chloride Flush 3 Ml Syringe IVFLUSH 3 ml QSHIFT FILEMON Administration Time Spent With Patient Time: Total time spent is greater than 50% in coordination of care (as documented) at patient's floor/unit and/or counseling patient: Time with patient: 15 - 24 minutes
--- NOTE | 2020-04-06 12:44 | MHC.CM.PN ---
Male 74 DX Afib/RVR Patient lives with Family. S/P cardioversion 04/05/20. Overnight Arrythmia noted. DP home no services. Family will provide transportation.
--- NOTE | 2020-04-06 13:23 | MHC.CM.PN ---
DC today, no services. Family providing transport to home.
--- NOTE | 2020-04-06 13:26 | P.DS_ITS ---
DS: Providers Provider Date of admission: 04/01/20 20:43 Primary care physician: Oswaldo Delgado MD Consults: 04/01/20 21:49 Consult to Cardiology Routine Consulting Provider: Zhang Pugh Reason for consultation: new onset afib rvr Has provider been notified: No DS: Diagnosis Discharge Diagnosis (1) Atrial fibrillation with rapid ventricular response: Status: Acute Problem details: Ghulam with cardioversion March 2020 (2) Wenckebach: Status: Acute (3) Atherosclerotic cardiovascular disease: Status: Acute DS: Medications Discharge Medications Home Medications: Home Medications Medication Instructions Recorded Confirmed amlodipine 2.5 mg tablet 2.5 mg PO DAILY 02/08/20 04/01/20 atorvastatin 80 mg tablet 80 mg PO BEDTIME 02/08/20 04/01/20 budesonide-formoterol HFA 160 2 puff PO BID 02/08/20 04/01/20 mcg-4.5 mcg/actuation aerosol inhaler adalimumab 40 mg/0.8 mL 40 mg SUBCUT Q2W 04/01/20 04/01/20 subcutaneous syringe kit Previous Rx's Medication Instructions Recorded apixaban [Eliquis] 5 mg PO BID #60 tab 04/06/20 clopidogrel 75 mg PO DAILY #30 tab 04/06/20 diltiazem HCl 240 mg PO DAILY #30 cap 04/06/20 DS: Summary Hospital Course Hospital Course: HPI 74-year-old male multiple medical problems who was sent from his PCP's office for new onset atrial fibrillation. Patient had a routine medical visit and was noted to be in new onset atrial fibrillation with rapid ventricular response. His initial heart rate was in the 140s to 150s. He has had complaints of dyspnea on exertion for the past few months which is being worked up. He has had abnormal chest CT scan showing ground-glass opacities and he has been seeing pulmonology for this. Pulmonary felt that it was likely inflammatory and possibly secondary to his underlying psoriatic arthritis. He also has an underlying history of COPD and coronary artery disease. He underwent cardiac catheterization in April 2019 and had 2 drug-eluting stents placed at that time. Today he reports ongoing dyspnea on exertion but denies any chest pain, palpitations, dizziness. He was given a dose of IV Cardizem and then started on a Cardizem drip with good improvement in his heart rate. Hospital course 74-year-old male admitted with the onset of AFib with RVR , patient was started on Cardizem drip and monitored on telemetry, cardiology was consulted, patient underwent cardioversion, patient was converted to sinus rhythm, patient was on aspirin and Brilinta at home, aspirin and Brilinta was stopped per Cardiology and switched to Plavix, patient was started on Eliquis and continued on home metoprolol and started on Cardizem, patient was noted to have episode of wenkeback on telemetry at night time and patient was asymptomatic, cardiology recommended stopping metoprolol, as patient was asymptomatic cardiology recommended no intervention, aspirin Brilinta and Lopressor was stopped on discharge, patient was started on Plavix Eliquis and Cardizem, patient will follow up cardiology as outpatient Time Spent with Patient Time attestation: Total time spent providing and/or coordinating discharge services: Physical Exam Vital Signs: Vital Signs: Last Vital Signs Temp 97.8 F 04/06/20 10:52 Pulse 79 04/06/20 10:52 Resp 18 04/06/20 10:52 BP 116/70 04/06/20 10:52 Pulse Ox 97 04/06/20 10:54 Body Mass Index 31.1 DS: Data Data Completed and Pending Labs on day of discharge: 04/01/20 Breakfast Cardiac Diet 04/01/20 15:55 ECG 12 lead EKG Stat EKG Documentation DIRECTED IV insert/maintain .Now XR chest 1V Stat 04/01/20 16:00 B Type Natriuretic Peptide Stat Complete Blood Count Auto Diff Stat SARS-CoV2/FLU/RSV Stat Troponin-I High Sensitivity Stat 04/01/20 16:05 dilTIAZem HCL [Cardizem] 10 mg IVPUSH NOW STA 04/01/20 16:06 0.9 % Sodium Chloride [Ns] 500 ml IV 999 mls/hr 04/01/20 16:45 0.9 % Sodium Chloride [Ns] 100 ml dilTIAZem HCL [Cardizem] 125 mg IVCONT Per Protocol mg/hr 04/01/20 16:57 dilTIAZem HCL [Cardizem] 125 mg IVCONT .STK-MED ONE 04/01/20 17:18 Comprehensive Met. Panel Stat D Dimer Stat Magnesium Stat Partial Thromboplastin Time Stat Prothrombin Time INR Stat TSH reflex Free T4 Stat 04/01/20 18:19 CT angio chest PE protocol Stat 04/01/20 18:32 Drug Screen Urine Stat UA ClnCatch+Micro w/rflx Cult Stat 04/01/20 18:33 Piperacillin Sodium/Tazobactam [Zosyn] 4.5 gm 0.9 % Sodium Chloride [Ns] 100 ml IV ONCE 04/01/20 18:36 Add Laboratory Test Stat 04/01/20 19:07 Basic Metabolic Panel Stat Magnesium Stat Thyroid Stimulating Hormone Stat 04/01/20 19:26 Piperacillin Sodium/Tazobactam [Zosyn] 4.5 gm IV .STK-MED ONE 04/01/20 19:38 iohexoL 350 MG/ML [Omnipaque 350 MG/ML] 100 ml IV ONCE ONE 04/01/20 20:32 Transfer Order Routine 04/01/20 20:54 Add Laboratory Test Stat 04/01/20 21:49 Enoxaparin Sodium [Lovenox] 95 mg SUBCUT ONCE ONE Ticagrelor [Brilinta] 90 mg PO BID 04/01/20 21:49 IV insert/maintain Q4HR Intake and Output QSHIFTE Vital Signs Q4HR 04/02/20 06:01 Complete Blood Count no Diff Routine 04/02/20 09:00 Aspirin 81 mg PO DAILY 04/02/20 10:55 dilTIAZem HCL [Cardizem] 30 mg PO QID 04/02/20 18:26 dilTIAZem HCL [Cardizem] 125 mg IVCONT .STK-MED ONE 04/03/20 06:16 Basic Metabolic Panel DAILY@0600 04/03/20 12:20 dilTIAZem HCL [Cardizem] 125 mg IVCONT .STK-MED ONE 04/03/20 13:00 dilTIAZem HCL [Cardizem] 60 mg PO QID 04/03/20 17:22 dilTIAZem HCL [Cardizem] 125 mg IVCONT .STK-MED ONE 04/03/20 21:21 EKG Documentation DIRECTED 04/03/20 21:30 ECG 12 lead EKG Routine 04/04/20 12:12 Clopidogrel Bisulfate [Plavix] 300 mg PO ONCE ONE 04/04/20 Lunch Low Sodium Diet 04/04/20 21:49 CA echo transthoracic complete Routine 04/05/20 ECG 12 lead EKG Urgent 04/05/20 05:54 Basic Metabolic Panel DAILY@0600 04/05/20 10:08 Lidocaine HCl 2 % MPF [Xylocaine 2 % MPF] 5 ml .ROUTE .STK-MED ONE propofoL [Diprivan] 200 mg IVPUSH .STK-MED ONE 04/05/20 10:55 Vital Signs Q5MIN 04/05/20 11:00 CA echo transesophageal Routine 04/05/20 11:48 Transfer Order Routine Laboratory Last Values WBC 6.3 X10*3/uL (4.8-10.8) 04/02/20 06:01 RBC 3.19 X10*6/uL (4.60-5.80) L 04/02/20 06:01 Hgb 10.6 g/dl (14.0-18.0) L 04/02/20 06:01 Hct 32.4 % (42-52) L 04/02/20 06:01 MCV 101.6 fL (80-98) H 04/02/20 06:01 MCH 33.2 pg (27.0-33.0) H 04/02/20 06:01 MCHC 32.7 g/dl (31.0-36.0) 04/02/20 06:01 RDW 14.2 % (11.0-16.0) 04/02/20 06:01 Plt Count 169 X10*3/uL (160-400) 04/02/20 06:01 MPV 9.9 fL (9.4-12.4) 04/02/20 06:01 Immature Gran % (Auto) 0.3 % (0.0-0.4) 04/01/20 16:00 Neut % (Auto) 59.6 % (45-73) 04/01/20 16:00 Lymph % (Auto) 28.5 % (20-40) 04/01/20 16:00 [place] % (Auto) 10.0 % (2-11) 04/01/20 16:00 Eos % (Auto) 1.5 % (0-4) 04/01/20 16:00 Baso % (Auto) 0.1 % (0-2) 04/01/20 16:00 Lymph # (Auto) 2.1 X10*3/uL (1.2-4.9) 04/01/20 16:00 [place] # (Auto) 0.7 X10*3/uL (0.1-1.2) 04/01/20 16:00 Eos # (Auto) 0.1 X10*3/uL (0.0-0.4) 04/01/20 16:00 Baso # (Auto) 0.0 X10*3/uL (0.0-0.2) 04/01/20 16:00 Abs Immat Gran (auto) 0.02 X10*3/uL (0.00-0.03) 04/01/20 16:00 Absolute Neuts (auto) 4.4 X10*3/uL (2.0-8.3) 04/01/20 16:00 Absolute Nucleated RBC 0.000 X10*3/uL (0.0-0.012) 04/02/20 06:01 Nucleated RBC % (auto) 0.0 /100WBC (0.0-0.2) 04/02/20 06:01 PT 12.3 SEC (10.8-13.0) 04/01/20 17:18 INR 1.0 (0.9-1.1) 04/01/20 17:18 APTT 34.5 SEC (24.1-38.0) 04/01/20 17:18 D-Dimer < 200 NG/ML 04/01/20 17:18 Sodium 139 mmol/L (135-145) 04/05/20 05:54 Potassium 3.7 mmol/l (3.3-5.1) 04/05/20 05:54 Chloride 108 mmol/L (96-108) 04/05/20 05:54 Carbon Dioxide 23 mmol/L (22-29) 04/05/20 05:54 Anion Gap 12 (-20) 04/05/20 05:54 BUN 19 mg/dL (9-16) H 04/05/20 05:54 Creatinine 0.77 mg/dL (0.5-1.4) 04/05/20 05:54 Estim Creat Clear Calc 95.9 04/05/20 05:54 Estimated GFR > 60 04/05/20 05:54 Random Glucose 115 mg/dL (60-115) 04/05/20 05:54 Calcium 8.1 mg/dL (8.4-10.2) L 04/05/20 05:54 Magnesium 2.1 mg/dL (1.6-2.6) 04/01/20 19:07 Total Bilirubin TNP 04/01/20 17:18 AST TNP 04/01/20 17:18 ALT TNP 04/01/20 17:18 Alkaline Phosphatase TNP 04/01/20 17:18 Troponin I High Sens 5.0 ng/L (<3.5-35.0) 04/01/20 16:00 B-Natriuretic Peptide 272 pg/mL (<100) H 04/01/20 16:00 Total Protein TNP 04/01/20 17:18 Albumin TNP 04/01/20 17:18 TSH 1.29 uIU/mL (0.32-4.0) 04/01/20 19:07 Urine Color YELLOW 04/01/20 18:32 Urine Appearance CLEAR 04/01/20 18:32 Urine pH 5.5 (5.0-8.0) 04/01/20 18:32 Ur Specific [place] >= 1.030 (1.005-1.025) H 04/01/20 18:32 Urine Protein NEG MG/DL (NEG-TRACE) 04/01/20 18:32 Urine Glucose (UA) NEG MG/DL (NEG) 04/01/20 18:32 Urine Ketones NEG MG/DL (NEG) 04/01/20 18:32 Urine Blood NEG (NEG) 04/01/20 18:32 Urine Nitrite NEG (NEG) 04/01/20 18:32 Ur Leukocyte Esterase NEG (NEG) 04/01/20 18:32 Urine RBC 0-2 /HPF (0) 04/01/20 18:32 Urine WBC 0 /HPF (0-4) 04/01/20 18:32 Ur Squamous Epith Cells NONE /LPF 04/01/20 18:32 Urine Bacteria 1+ /LPF 04/01/20 18:32 Urine Opiates Screen Not Detected (Not Detect) 04/01/20 18:32 Ur Barbiturates Screen Not Detected (Not Detect) 04/01/20 18:32 Ur Phencyclidine Scrn Not Detected (Not Detect) 04/01/20 18:32 Ur Amphetamines Screen Not Detected (Not Detect) 04/01/20 18:32 U Benzodiazepines Scrn Not Detected (Not Detect) 04/01/20 18:32 Urine Cocaine Screen Not Detected (Not Detect) 04/01/20 18:32 U Marijuana (THC) Screen Not Detected (Not Detect) 04/01/20 18:32 Coronavirus (PCR) NEGATIVE (Negative) 04/01/20 16:00 Influenza Type A (PCR) NEGATIVE (Negative) 04/01/20 16:00 Influenza Type B (PCR) NEGATIVE (Negative) 04/01/20 16:00 RSV RNA Qual (PCR) NEGATIVE (Negative) 04/01/20 16:00 Discharge Plan Discharge Anticipated Discharge Date/Time: 04/06/20 13:13 Patient Disposition: Home, Self-Care Referrals: Po,Oswaldo Deng MD [Primary Care Provider] - Discharge Medications: New diltiazem HCl 240 mg Capsule,Extended Release 24hr 240 mg PO DAILY Qty: 30 RF: 0 Eliquis 5 mg Tablet 5 mg PO BID Qty: 60 RF: 0 clopidogrel 75 mg Tablet 75 mg PO DAILY Qty: 30 RF: 0 Continued Humira 40 mg/0.8 mL syringe kit 40 mg subcut Q2W RF: 0 amlodipine 2.5 mg tablet 2.5 mg PO DAILY RF: 0 budesonide-formoterol 160-4.5 mcg/actuation HFA aerosol inhaler 2 puff PO BID RF: 0 atorvastatin 80 mg tablet 80 mg PO BEDTIME RF: 0 Discontinued Brilinta 90 mg tablet 90 mg PO BID RF: 0 metoprolol succinate 25 mg tablet extended release 24 hr 25 mg PO DAILY RF: 0 aspirin 81 mg tablet,chewable 81 mg PO DAILY RF: 0 Discharge Orders: Discharge Order (Routine); Ordered 04/06/20 Ordered By: Graham Alanis Diet: advance to usual diet Activity on Discharge: As tolerated Discharge Date/Time: 04/06/20 15:53 Visit Report Forms: Patient Portal Discharge page Care Plan Goals: see above Health Concerns: AFib Plan of Treatment: follow up cardiology as outpatient
--- NOTE | 2020-04-06 14:24 | HO.POSTANES ---
Post Anesthesia Evaluation Post Anesthesia Evaluation Vital Signs: Vital Signs Temp Pulse Resp BP Pulse Ox 04/06/20 10:54 97 04/06/20 10:52 97.8 F 79 18 116/70 97 04/06/20 08:40 82 128/80 04/06/20 08:37 82 128/80 04/06/20 07:12 97.6 F 82 18 128/80 98 Anesthesia: Monitored Mental Status: Awake Pain Control: Satisfactory Nausea/Vomiting: None Hydration: Adequate Anesthesia-Related Issues: No Anes. Related Issues
== END 2020-04-06 15:53 | disposition home or self-care (01) | DRG 310 ==
LOC: HO.ED 20:41 → HO.IMC 21:04
PROVIDERS: Internal Medicine Cardiovascular Disease; Nurse Practitioner Primary Care; Physician Assistant Medical; Student in an Organized Health Care Education/Training Program; Admitting Provider Internal Medicine; Emergency Provider Internal Medicine; PCP Internal Medicine; Visit Provider Internal Medicine
PROC: 5A2204Z Restoration of Cardiac Rhythm, Single (ICD-10-PCS; principal; 2020-04-05 11:00)
DX: I48.91 Unspecified atrial fibrillation (principal); I25.10 Atherosclerotic heart disease of native coronary artery without angina pectoris; I71.2 Thoracic aortic aneurysm, without rupture; I10 Essential (primary) hypertension; R91.8 Other nonspecific abnormal finding of lung field; Z20.828 Contact with and (suspected) exposure to other viral communicable diseases; Z87.891 Personal history of nicotine dependence; Z79.899 Other long term (current) drug therapy
CPT/HCPCS: 0241U; 36415; 71045; 71275; 80048; 80053; 80307; 81001; 83735; 83880; 84443; 84484; 85025; 85027; 85379; 85610; 85730; 92960; 93005; 93306; 93312; 96365; 96375; 99285; J1650; J2543; Q9967

== ENCOUNTER → 2020-04-18 09:45 | Outpatient (REF) | payer MEDICARE, SELFPAY ==
--- NOTE | 2020-04-18 13:28 | ECG_ITS ---
Hook-up date: 2020-04-18 11:04:00 Duration: 47:39:00 Test Indications: I48.91 - Unspecified atrial fib Medications: 517424 QRS complexes 687 Ventricular ectopics which represent <1 % of total QRS comp. * Supraventricular ectopics which represent % of total QRS comp. * Paced QRS complexs which represent % of total QRS comp. VENTRICULAR ECTOPY 666 Isolated 0 Bigeminal Cycles 9 Couplets 1 Runs 3 Beats in Runs 3 Beats LONGEST at 159 BPM at 16:01:16 2020-04-18 3 Beats FASTEST at 159 BPM at 16:01:16 2020-04-18 SUPRAVENTRICULAR ECTOPY * Isolated * Couplets * Runs * Beats in Runs * Beats LONGEST at * BPM at :: -- * Beats FASTEST at * BPM at :: -- HEART RATES 59 MIN at 01:55:16 2020-04-19 103 AVG 167 MAX at 05:19:27 2020-04-19 LONGEST RR 1.8160 secs at 01:55:14 2020-04-19 S-T LEVELS Channel 1 - 128 mm at 11:04:00 2020-04-18 - 128 mm at 11:04:00 2020-04-18 Channel 2 - 128 mm at 11:04:00 2020-04-18 - 128 mm at 11:04:00 2020-04-18 Channel 3 - 128 mm at 03:02:31 -- - 128 mm at 03:02:31 Basic rhythm Atrial fibrillation Frequent Atrial fibrillation with rapid ventricular response Inadequate rate control with avergae HR of 103 bpm Occasional Premature ventricular complexes One 3 beat hien of NSVT at 159 bpm No diary submitted Referred By: Radha Jean Baptiste Overread By: MIAH FERMIN MD
== END ==
LOC: HO.CARD 09:45
PROVIDERS: PCP Internal Medicine; Visit Provider Nurse Practitioner Family
DX: I44.1 Atrioventricular block, second degree (principal); I48.91 Unspecified atrial fibrillation
CPT/HCPCS: 93226

== ENCOUNTER 2020-05-02 08:38 | Outpatient (REF) | payer MEDICARE, SELFPAY ==
--- NOTE | 2020-05-02 08:40 | CT_ITS ---
EXAMINATION: CT CHEST SCREENING CLINICAL INFORMATION: Personal history of nicotine dependence. COMPARISON: CT angiography chest 04/01/2020 TECHNIQUE: Multidetector volumetric CT imaging of the chest is performed without contrast using low dose technique. Additional 2D coronal and sagittal reformatted images and axial 3D maximum intensity projection (MIP) images are generated on the CT workstation. This CT examination was performed using dose optimization techniques as appropriate, variously including the following: *Automated exposure control *Adjustment of mA and/or kV according to patient size (this includes techniques or standardized protocols for targeted exams where dose is matched to indication/reason for exam; i.e. extremities or head) *Use of iterative reconstruction technique DLP: 55 mGy-cm FINDINGS: LUNGS: The lungs are hyperinflated with patchy ground-glass attenuation superior segment right lower lobe. Additional areas of ground-glass attenuation seen. There are no pulmonary nodules, mass or consolidation. MEDIASTINUM: Heart size is normal. There is atherosclerotic dilation of the ascending aorta measuring 4.5 x 4.7 cm axial image 29/3. No pericardial effusion seen. There is reactionary precarinal lymph node short axis measurement of 1.5 cm on axial image 23/3. No other lymph nodes seen. There are coronary artery calcifications present. The central trachea and the bronchi appear widely patent. A heterogenous enlarged left thyroid lobe is noted. PLEURA: There is no pleural effusion. No pleural mass or thickening. AXILLA: No lymphadenopathy. UPPER ABDOMEN: Multiple small hypodense lesion seen in the liver. The liver is otherwise unremarkable. The visualized spleen, pancreas and bilateral adrenal glands are unremarkable. OSSEOUS STRUCTURES: No lytic or sclerotic process seen. CT/CT lung screen follow up IMPRESSION: Hyperinflated lungs with patchy ground-glass subpleural density superior segment right upper lobe. No focal mass or other additional ground-glass density seen. Previously seen ground-glass density in other segments has resolved. Diffuse centrilobular emphysema. 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 ASSESSMENT: Lung-RADS category 2: Benign. RECOMMENDATION: Low-dose annual CT chest.
== END 2020-05-02 08:39 | disposition home or self-care (01) ==
LOC: HO.CT 08:38
PROVIDERS: Visit Provider Physician Assistant Medical
DX: Z12.2 Encounter for screening for malignant neoplasm of respiratory organs (principal); Z87.891 Personal history of nicotine dependence; I48.0 Paroxysmal atrial fibrillation; I25.10 Atherosclerotic heart disease of native coronary artery without angina pectoris; R06.00 Dyspnea, unspecified; E78.00 Pure hypercholesterolemia, unspecified; I10 Essential (primary) hypertension
CPT/HCPCS: 71250; 99212

== ENCOUNTER 2020-05-04 09:05 | Outpatient (REF) | payer MEDICARE, SELFPAY ==
--- NOTE | 2020-05-04 | US_ITS ---
EXAMINATION: US THYROID CLINICAL INFORMATION: Thyroid nodule. COMPARISON: Ultrasound soft tissue head/neck thyroid dated degenerative 11/09/2019 and 11/18/2017. TECHNIQUE: Linear transducer banerjee-scale and color Doppler examination with attention to the region of the thyroid. FINDINGS: SIZE: Measurements of the thyroid lobes and nodules are given in sagittal, anteroposterior and transverse dimensions respectively. Right Thyroid Lobe: 3.6 x 1.6 x 1.6 cm, volume 4.8 mL. Previously 4.7 x 1.8 x 1.3 cm, volume 5.5 mL. Parenchyma: The gland echotexture is heterogeneous. Thyroid vascularity is normal. Left Thyroid Lobe: 5.7 x 3.3 x 3.8 cm, volume 37.4 mL. Previously 5.4 x 3.3 x 3.1 cm, volume 29.1 mL. Parenchyma: The gland echotexture is heterogeneous. Thyroid vascularity is normal. Isthmus: 0.3 cm in maximum AP dimension. Previously 0.3 cm. RIGHT THYROID LOBE: There are 2 nodules seen. 1. Location: Superior. Size: 0.8 x 0.4 x 0.5 cm. Previous: New since previous study. Nodule characteristics: Heterogeneous in echotexture with smooth margins. No calcification is seen. There is some peripheral vascularity present. 2. Location: Inferior. Size: 0.9 x 0.5 x 0.7 cm. Previous: New since the previous study. Nodule characteristics: Heterogeneous in echotexture with smooth margins and no calcification. Peripheral vascularity present. ISTHMUS: There is 1 nodule seen. 1. Location: Inferior. Size: 1.7 x 0.8 x 1.0 cm. Previous: New since the previous study. Nodule characteristics: Heterogeneous with smooth margins. No calcification. There is intranodular blood flow present. LEFT THYROID LOBE: There is 1 nodule seen. 1. Location: Entire thyroid. Size: 5.2 x 3.3 x 4.5 cm. Previous: 4.9 x 2.7 x 2.7 cm. Nodule characteristics: Heterogeneous in echotexture with smooth margins. Microcalcifications are present. There is intranodular blood flow. This was previously biopsied. NODES: No lymphadenopathy is seen in the tissue surrounding the thyroid gland. US/US thyroid IMPRESSION: New 1.7 cm maximum dimension left isthmus thyroid nodule for which ultrasound-guided fine-needle aspiration biopsy could be performed.
== END 2020-05-04 09:06 | disposition home or self-care (01) ==
LOC: HO.HMGCX 09:05
PROVIDERS: Visit Provider Internal Medicine
DX: E04.1 Nontoxic single thyroid nodule (principal)
CPT/HCPCS: 76536

== ENCOUNTER 2020-05-11 07:28 | Outpatient (REF) | payer MEDICARE, SELFPAY ==
[2020-05-11 11:48] LABS: Albumin Level 3.9 g/dL (3.5-5.0); Calcium 8.5 mg/dL (8.4-10.2); Phosphorus 4.1 mg/dL (2.7-4.5)
[2020-05-11 12:14] LABS: Free T4 (Free Thyroxine) 1.14 ng/dL (0.71-1.85); Prostate Specific Antigen 0.23 ng/mL (<0.05-4.0); Vitamin D 25-OH Total 24.5 ng/mL (>30)
[2020-05-12 06:43] LABS: Sex Hormone Binding Globulin 38 nmol/L (22-77)
[2020-05-12 09:07] LABS: Follicle Stimulating Hormone 8.9 mIU/mL (1.6-8.0); Lutenizing Hormone 6.3 mIU/mL (1.6-15.2)
[2020-05-12 15:03] LABS: PES - Abn Protein Band 1 0.4 g/dL (NONE DETECTED); Prot Elec - Albumin 3.5 g/dL (3.8-4.8); Prot Elec - Alpha1 0.3 g/dL (0.2-0.3); Prot Elec - Alpha2 0.8 g/dL (0.5-0.9); Prot Elec - Beta 1 0.5 g/dL (0.4-0.6); Prot Elec - Beta 2 0.5 g/dL (0.2-0.5); Prot Elec - Gamma 1.5 g/dL (0.8-1.7); Prot Elec - Total Protein 7.1 g/dL (6.1-8.1)
[2020-05-13 12:37] LABS: Calcium, Ionized 4.7 mg/dL (4.8-5.6)
[2020-05-14 08:42] LABS: PTHI 52 pg/mL (14-64)
[2020-05-16 13:17] LABS: Alkaline Phosphatase Bone 17.6 mcg/L (see note)
[2020-05-19 15:37] LABS: Testosterone, Free 21.6 pg/mL (30.0-135.0); Testosterone, Total 161 ng/dL (250-1100)
[2020-05-23 11:13] LABS: Calcium (PTHI) 9.3
== END 2020-05-11 07:29 | disposition home or self-care (01) ==
LOC: HO.HMGCLDS 07:28
PROVIDERS: PCP Internal Medicine; Referring Provider Internal Medicine; Visit Provider Internal Medicine
DX: M81.0 Age-related osteoporosis without current pathological fracture (principal); E04.2 Nontoxic multinodular goiter; E55.9 Vitamin D deficiency, unspecified; Z79.899 Other long term (current) drug therapy
CPT/HCPCS: 36415; 82040; 82306; 82310; 82330; 83001; 83002; 83970; 84075; 84100; 84153; 84155; 84165; 84270; 84402; 84403; 84439; 84443; Q3014

== ENCOUNTER → 2020-05-12 09:44 | Outpatient (BNVA) | payer MEDICARE, SELFPAY | PROVIDERS: PCP Internal Medicine; Visit Provider Internal Medicine Cardiovascular Disease ==

== ENCOUNTER 2020-05-13 | Outpatient (REF) | payer MEDICARE, SELFPAY ==
[2020-05-13 12:26] LABS: Total Volume 24 Hour Urine 1175 mL
[2020-05-13 13:05] LABS: Creatinine, 24Hr Urine 1.1 G/Day (1.0-2.0); Creatinine, mg/dL 94.49
[2020-05-14 17:18] LABS: Calcium, 24 Hr Urine 220 mg/24 h; Calcium/Creatinine Ratio 195 mg/g creat (30-210); Creatinine 24Hr Urine 1.13 g/24 h (0.50-2.15)
[2020-05-18 14:43] LABS: N-Telopeptide 46 (see note); NTXCreaRU 92 mg/dL (20-320)
== END 2020-05-13 00:01 | disposition home or self-care (01) ==
LOC: HO.HMGCLNP
PROVIDERS: Visit Provider Internal Medicine
DX: M81.0 Age-related osteoporosis without current pathological fracture (principal); I48.0 Paroxysmal atrial fibrillation; R91.8 Other nonspecific abnormal finding of lung field; Z79.01 Long term (current) use of anticoagulants; Z87.891 Personal history of nicotine dependence
CPT/HCPCS: 82340; 82523; 82570; 99215

== ENCOUNTER 2020-05-18 08:20 | Outpatient (REF) | payer MEDICARE, SELFPAY ==
--- NOTE | 2020-05-18 08:24 | MM_ITS ---
EXAMINATION: BONE DENSITOMETRY CLINICAL INDICATION: Osteoporosis. COMPARISON: None (current study represents initial baseline exam). TECHNIQUE: Using a [employer] DXA System (software version: 13.1) manufactured by [employer], dual-energy x-ray absorptiometry was performed of the lumbar spine and left hip. The images are of good technical quality. Summary results are attached. FINDINGS: AP SPINE L1-L2 (excluding L3 and L4): The data of L1-L4 has been changed to exclude the L3 and L4 vertebral bodies, because degenerative changes at these levels may cause overestimation of lumbar spine density. BMD 1.213 g/cm2, Z-score 0.4, T-score 0.1, normal. LEFT FEMUR, NECK: BMD 0.981 g/cm2, Z-score 0.5, T-score -0.7, normal. LEFT FEMUR, TOTAL: BMD 0.954 g/cm2, Z-score -0.3, T-score -1.0, normal. IDENTIFIED RISK FACTORS: Height loss, low calcium intake. HISTORY OF FRACTURE: None listed. MEDICATIONS: None listed. MM/XR DEXA axial skeleton IMPRESSION: 1. DIAGNOSIS: Normal bone density based on the lowest T-score value of -1.0 in the total femur applying World Health Organization criteria. 2. 10-YEAR FRACTURE RISK PREDICTION, FRAX: Major osteoporotic fracture (clinical spine, forearm, hip or shoulder) 5.3%. Hip fracture 1.1%. 3. Treatment Recommendations: NOF guidelines recommend consideration for treatment in postmenopausal women and men age 50 and older presenting with the following: -A hip or vertebral (clinical or morphometric) fracture. -T-score less than or equal to -2.5 at the femoral neck or spine after appropriate evaluation to exclude secondary causes. -Low bone mass at the hip or spine and a 10-year fracture probability by FRAX of greater than or equal to 3% for hip fracture or greater than or equal to 20% for major osteoporotic fracture based on the [place] adapted WHO algorithm. 4. Other Recommendations: All treatment decisions require clinical judgment and consideration of individual patient factors, including patient preferences, comorbidities, previous drug use, risk factors not captured in the FRAX model (e.g. frailty, falls, vitamin D deficiency, increased bone turnover, interval significant decline in bone density) and possible under or overestimation of fracture risk by FRAX. FUTURE SCAN RECOMMENDATION: People with diagnosed cases of osteoporosis or at high risk for fracture should have regular bone mineral density tests. For patients eligible for Medicare, routine testing is allowed once every 2 years. The testing frequency can be increased to one year for patients who have rapidly progressing disease, those who are receiving or discontinuing medical therapy to restore bone mass, or have additional risk factors.
== END 2020-05-18 08:21 | disposition home or self-care (01) ==
LOC: HO.MAMMO 08:20
PROVIDERS: Visit Provider Internal Medicine
DX: M81.0 Age-related osteoporosis without current pathological fracture (principal)
CPT/HCPCS: 77080

== ENCOUNTER → 2020-05-26 09:39 | Outpatient (REF) | payer MEDICARE, SELFPAY ==
--- NOTE | 2020-05-26 11:45 | ECG_ITS ---
Hook-up date: 2020-05-26 11:00:00 Duration: 24:10:00 Test Indications: PAF Medications: [id number] QRS complexes 374 Ventricular ectopics which represent <1 % of total QRS comp. * Supraventricular ectopics which represent % of total QRS comp. * Paced QRS complexs which represent % of total QRS comp. VENTRICULAR ECTOPY 363 Isolated 0 Bigeminal Cycles 4 Couplets 1 Runs 3 Beats in Runs 3 Beats LONGEST at 113 BPM at 21:49:56 2020-05-26 3 Beats FASTEST at 113 BPM at 21:49:56 2020-05-26 SUPRAVENTRICULAR ECTOPY * Isolated * Couplets * Runs * Beats in Runs * Beats LONGEST at * BPM at :: -- * Beats FASTEST at * BPM at :: -- HEART RATES 49 MIN at 14:10:20 2020-05-26 95 AVG 168 MAX at 07:23:12 2020-05-27 LONGEST RR 2.1040 secs at 03:19:49 2020-05-27 S-T LEVELS Channel 1 - 128 mm at 11:00:00 2020-05-26 - 128 mm at 11:00:00 2020-05-26 Channel 2 - 128 mm at 11:00:00 2020-05-26 - 128 mm at 11:00:00 2020-05-26 Channel 3 - 128 mm at 03:01:91 -- - 128 mm at 03:01:91 Basic rhythm Atrial fibrillation Inadequate rate control with average HR of 95 bpm, 41% of time HR > 100 bpm Occasional Premature ventricular complexes One 4 beat hien of NSVT at 120 bpm No diary submitted Referred By: Radha Jean Baptiste Overread By: MIAH FERMIN MD
== END ==
LOC: HO.CARD 09:39
PROVIDERS: PCP Internal Medicine; Visit Provider Internal Medicine Cardiovascular Disease
DX: I48.0 Paroxysmal atrial fibrillation (principal)
CPT/HCPCS: 93226

== ENCOUNTER → 2020-05-30 09:13 | Outpatient (BNVA) | payer MEDICARE, SELFPAY | PROVIDERS: Visit Provider Internal Medicine Cardiovascular Disease | DX: I48.0 Paroxysmal atrial fibrillation (principal); I25.10 Atherosclerotic heart disease of native coronary artery without angina pectoris | CPT/HCPCS: 93005; 99212 ==

== ENCOUNTER → 2020-06-09 09:12 | Outpatient (REF) | payer MEDICARE, SELFPAY ==
--- NOTE | 2020-06-09 11:54 | ECG_ITS ---
Hook-up date: 2020-06-09 10:25:00 Duration: 25:22:00 Test Indications: PAF Medications: [id number] QRS complexes 134 Ventricular ectopics which represent <1 % of total QRS comp. * Supraventricular ectopics which represent % of total QRS comp. * Paced QRS complexs which represent % of total QRS comp. VENTRICULAR ECTOPY 125 Isolated 0 Bigeminal Cycles 0 Couplets 2 Runs 9 Beats in Runs 6 Beats LONGEST at 190 BPM at 22:02:03 2020-06-09 6 Beats FASTEST at 190 BPM at 22:02:03 2020-06-09 SUPRAVENTRICULAR ECTOPY * Isolated * Couplets * Runs * Beats in Runs * Beats LONGEST at * BPM at :: -- * Beats FASTEST at * BPM at :: -- HEART RATES 46 MIN at 01:01:12 2020-06-10 86 AVG 148 MAX at 04:43:49 2020-06-10 LONGEST RR 2.0320 secs at 20:46:32 2020-06-09 S-T LEVELS Channel 1 - 128 mm at 10:25:00 2020-06-09 - 128 mm at 10:25:00 2020-06-09 Channel 2 - 128 mm at 10:25:00 2020-06-09 - 128 mm at 10:25:00 2020-06-09 Channel 3 - 128 mm at 02:94:41 -- - 128 mm at 02:94:41 Basic rhythm Atrial fibrillation Adequate rate control with average HR of 86 bpm No long pause or profound bradycardia Occasional Premature ventricular complexes One 6 beat episode of NSVT at 190 bpm No diary submitted Referred By: Ja Jean-Baptiste Overread By: MIAH FERMIN MD
== END ==
LOC: HO.CARD 09:12
PROVIDERS: Visit Provider Internal Medicine Cardiovascular Disease
DX: I48.0 Paroxysmal atrial fibrillation (principal)
CPT/HCPCS: 93226

== ENCOUNTER → 2020-06-29 14:15 | Outpatient (BNVA) | payer MEDICARE, SELFPAY | PROVIDERS: PCP Internal Medicine; Visit Provider Internal Medicine Cardiovascular Disease | DX: I48.0 Paroxysmal atrial fibrillation (principal); I25.10 Atherosclerotic heart disease of native coronary artery without angina pectoris | CPT/HCPCS: 99212 ==

== ENCOUNTER 2020-07-07 08:29 | Outpatient (REF) | payer MEDICARE, SELFPAY ==
[2020-07-07] MEDS: Lidocaine HCl 1 % 20 ML VIAL 5 ML SUBCUT (09:46)
--- NOTE | 2020-07-07 10:33 | PM.OP ---
Brief Operative Note Date of Service: 07/07/20 Surgeon: Precious Preston, DO This is doctor Precious Preston. This is an ultrasound-guided fine-needle aspiration report. Date of Examination: 07/07/2020 Indication: Multinodular Thyroid Porcedure: Procedure was explained to the patient. Alternatives, the risk and benefits were discussed. Written consent was obtained. A time-out was also obtained. After sterile preparation, fine-needle aspiration of a left lower pole 5.2 cm thyroid nodule was performed using direct ultrasound guidance to confirm accurate needle placement. Four aspirations were made using 27 gauge needles. Samples were submitted for cytology. 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 The patient tolerated the procedure well. Aftercare instructions were provided. Impression: Uncomplicated fine needle aspiration biopsy of a left lower pole 5.2 cm thyroid nodule under ultrasound guidance. Estimated blood loss (mL): 0
== END 2020-07-07 08:30 | disposition home or self-care (01) ==
LOC: HO.US 08:29
PROVIDERS: Visit Provider Internal Medicine
DX: E04.2 Nontoxic multinodular goiter (principal)
CPT/HCPCS: 10005; 88172; 88173; 88177

== ENCOUNTER → 2020-07-20 08:13 | Outpatient (BNVA) | payer MEDICARE, SELFPAY | PROVIDERS: PCP Internal Medicine; Visit Provider Internal Medicine | DX: E04.2 Nontoxic multinodular goiter (principal); E55.9 Vitamin D deficiency, unspecified | CPT/HCPCS: 99212 ==

== ENCOUNTER 2020-08-12 06:03 | Outpatient (REF) | payer MEDICARE, SELFPAY ==
[2020-08-12 11:18] LABS: MANUAL DIFF FLAG NO
[2020-08-12 11:34] LABS: Basophils Percent Auto 0.1 % (0-2); Eosinophils Absolute Auto 0.1 X10*3/uL (0.0-0.4); Hematocrit 41.4 % (42-52); Hemoglobin 13.6 g/dl (14.0-18.0); Imm Gran Abs Auto 0.02 X10*3/uL (0.00-0.03); Imm Gran Pct Auto 0.3 % (0.0-0.4); Lymphocytes Absolute Auto 1.2 X10*3/uL (1.2-4.9); Mean Corpuscular HGB Conc 32.9 g/dl (31.0-36.0); Mean Corpuscular Hemoglobin 33.5 pg (27.0-33.0); Mean Platelet Volume 9.7 fL (9.4-12.4); Monocytes Absolute Auto 0.8 X10*3/uL (0.1-1.2); Monocytes Percent Auto 11.5 % (2-11); Neutrophils Percent Auto 70.1 % (45-73); Platelet Count 165 X10*3/uL (160-400); Red Blood Count 4.06 X10*6/uL (4.60-5.80); Red Cell Distribution Width 14.4 % (11.0-16.0); Retic HGB Equivalent 37.9 pg (30.0-35.0); Reticulocyte Percent 1.9 % (0.5-1.8); Reticulocytes Absolute 0.075 X10*6/uL (0.026-0.095); White Blood Count 7.1 X10*3/uL (4.8-10.8)
[2020-08-12 11:53] LABS: B Type Natriuretic Peptide 289 pg/mL (<100)
[2020-08-12 12:01] LABS: Estimated Average Glucose 120 mg/dL; Hemoglobin A1c % 5.8 %
[2020-08-12 12:06] LABS: Ferritin 57 ng/mL (20-250)
[2020-08-12 12:13] LABS: Free T4 (Free Thyroxine) 0.99 ng/dL (0.71-1.85); Thyroid Stimulating Hormone 1.48 uIU/mL (0.32-4.0); Vitamin D 25-OH Total 27.7 ng/mL (>30)
[2020-08-12 12:15] LABS: Alanine Aminotransferase 24 U/L (0-40); Alkaline Phosphatase 132 U/L (39-117); Anion Gap 11 (12-20); Aspartate Amino Transferase 20 U/L (5-37); Bilirubin Total 0.8 mg/dL (0.0-1.0); Blood Urea Nitrogen 22 mg/dL (9-16); Calcium 8.5 mg/dL (8.4-10.2); Carbon Dioxide 27 mmol/L (22-29); Chloride 105 mmol/L (96-108); Cholesterol 130 mg/dL; Estimated Glomerular Filt Rate > 60; Glucose Random 113 mg/dL (60-115); HDL Cholesterol 50 mg/dL; Iron 95 mcg/dL (45-160); LDL Cholesterol Calculated 62 mg/dl; Percent Iron Saturation 29 % (15-50); Potassium 4.2 mmol/L (3.3-5.1); Sodium 139 mmol/L (135-145); Total Iron Binding Capacity 331 mcg/dL (228-428); Total Protein 7.3 g/dL (6.5-8.0); Triglycerides 90 mg/dL; Unsaturated Iron Binding 236 ug/dL
[2020-08-12 12:31] LABS: Folate 10.9 ng/mL (> or = 4.0); Vitamin B12 1160 pg/mL (200-900)
[2020-08-16 11:37] LABS: Calcium (PTHI) 8.7 mg/dL (8.6-10.3); PTHI 68 pg/mL (14-64)
== END 2020-08-12 06:04 | disposition home or self-care (01) ==
LOC: HO.HMGCLDS 06:03
PROVIDERS: Internal Medicine; PCP Internal Medicine; Visit Provider Internal Medicine
DX: E04.2 Nontoxic multinodular goiter (principal); E55.9 Vitamin D deficiency, unspecified; E78.00 Pure hypercholesterolemia, unspecified; I10 Essential (primary) hypertension; D53.9 Nutritional anemia, unspecified; E53.8 Deficiency of other specified B group vitamins; R73.02 Impaired glucose tolerance (oral); I48.0 Paroxysmal atrial fibrillation
CPT/HCPCS: 36415; 80053; 80061; 82306; 82607; 82728; 82746; 83036; 83540; 83880; 83970; 84439; 84443; 85025; 85045

== ENCOUNTER 2020-08-15 08:37 | Outpatient (REF) | payer MEDICARE, SELFPAY ==
--- NOTE | ~2020-08-15 | CT_ITS ---
EXAMINATION: CT CHEST WITHOUT CONTRAST CLINICAL INFORMATION: Other nonspecific abnormal finding of lung field. COMPARISON: Previous chest CT scans most recent April 2020. TECHNIQUE: Multidetector volumetric CT imaging of the chest was done. Axial MIP volume rendering provided. Sagittal and coronal reformatted images were obtained. This CT examination was performed using dose optimization techniques as appropriate, variously including the following: *Automated exposure control. *Adjustment of mA and/or kV according to patient size (this includes techniques or standardized protocols for targeted exams where dose is matched to indication/reason for exam; i.e. extremities or head). *Use of iterative reconstruction technique. DLP: 206 mGy-cm FINDINGS: LUNGS: There is evidence of emphysema. There is interval increase in peripheral or subpleural increased reticular markings and ground-glass attenuation. This is greatest in the anterior segment of the left upper lobe and superolateral right lower lobe. This is similar in appearance to findings in the right upper and right lower lobes on March 2020 exam. There is a new 5 mm superior segment left lower lobe nodule, axial image 153 series 6. MEDIASTINUM: The left lobe of the thyroid gland is enlarged and low in attenuation suggestive of a substernal nodule. This appears unchanged. There are upper normal-sized mediastinal lymph nodes, largest in the precarinal region. The heart does not appear enlarged. There is coronary artery and aortic valve calcification. There is no pericardial effusion. The thoracic aorta is upper normal in size. PLEURA: There is no pleural effusion. No pleural mass or thickening. AXILLA: No lymphadenopathy. UPPER ABDOMEN: There are multiple low-attenuation liver lesions that are stable and probably represent small cysts. There is diverticulosis of the colon. OSSEOUS STRUCTURES: There are degenerative changes of the spine. There is an old T9 vertebral body compression fracture that appears unchanged. CT/CT chest wo con IMPRESSION: Emphysema. Increasing peripheral or subpleural areas of increased interstitial markings and ground-glass attenuation, largest in the left upper lobe and right lower lobe. Waxing and waning appearance suggests an infectious or inflammatory process. This is similar to chest CTA from March 2020. Enlarged heart, severe coronary artery calcification and upper normal-sized thoracic aorta.
== END 2020-08-15 08:38 | disposition home or self-care (01) ==
LOC: HO.CT 08:37
PROVIDERS: Visit Provider Surgery
DX: R91.8 Other nonspecific abnormal finding of lung field (principal)
CPT/HCPCS: 71250

== ENCOUNTER → 2020-08-26 08:44 | Outpatient (BNVA) | payer MEDICARE, SELFPAY | PROVIDERS: Visit Provider Internal Medicine Pulmonary Disease | DX: R91.8 Other nonspecific abnormal finding of lung field (principal); Z87.891 Personal history of nicotine dependence; J43.9 Emphysema, unspecified; R06.00 Dyspnea, unspecified | CPT/HCPCS: 99212 ==

== ENCOUNTER → 2020-09-22 12:42 | Outpatient (BNVA) | payer MEDICARE, SELFPAY | PROVIDERS: PCP Internal Medicine; Referring Provider Internal Medicine; Visit Provider Internal Medicine Cardiovascular Disease | DX: I48.0 Paroxysmal atrial fibrillation (principal); I25.10 Atherosclerotic heart disease of native coronary artery without angina pectoris; R06.00 Dyspnea, unspecified | CPT/HCPCS: 93005; 99212 ==

== ENCOUNTER → 2020-09-27 08:13 | Outpatient (REF) | payer MEDICARE, SELFPAY ==
--- NOTE | 2020-09-27 08:25 | CA_ITS ---
Transthoracic Echocardiogram Patient (Last, First, Middle): Pablito Everett P Gender: Male Date of : 1945 Age: 74 Procedure Date: 09/27/2020 Procedure Type: Transthoracic Echocardiogram Location: OP Height: 172.72 cm Weight: 92.08 kg BSA: 2.06 m2 Heart Rate: bpm BP: 110 / 80 mmHg Merchandising Intern: WILLIAM Referring MD: Ja Jean-Baptiste MD [employer] Efficient Automobile Designer: Julian Lindo MD Symptoms: I48.0 - Paroxysmal atrial fibrillation Study Quality: Good ECG Rhythm: Atrial Fibrillation Conclusions: - Limited echocardiogram study with normal LV systolic function with LVEF of 55-60%. Findings Left Ventricle Normal left ventricular size, thickness, and systolic function. The visually estimated ejection fraction is between 55-60%. E/E prime ratio is between 8 and 15 consistent with indeterminate filling pressures. Pericardium/Pleural There is no evidence of pericardial effusion. Measurements 2D Systolic Function EF 4C: 63.70 >55% EF 2C: 42.10 >55% EF BiP: 55.20 >55% Mitral Valve MV Pk E: 0.98 MV Decel Time: 178.00 E'Lateral: 8.27 E'Medial: 6.85 E/E' Med: 14.30 E/E' Lat: 11.80 PHT: 52.00 MVA PHT: 4.23 Decel Travis: 5.54 Diastolic Function MV Pk E: 0.98 E'Medial: 6.85 E/E' Med: 14.30 E' Laterial: 8.27 E/E' Lat: 11.80 Updated in Other Vendor System with Status of Final Julian Lindo MD electronically signed on 09/28/2020 11:46:10 AM with status of Final
== END ==
LOC: HO.CARD 08:13
PROVIDERS: Visit Provider Internal Medicine Cardiovascular Disease
DX: I48.0 Paroxysmal atrial fibrillation (principal)
CPT/HCPCS: 93308

== ENCOUNTER 2020-10-07 10:22 | Day surgery (SDC) | payer MEDICARE, SELFPAY ==
--- NOTE | 2020-10-05 10:04 | P.CONAN_ITS ---
Documented by User: Marleny Low 10/05/20 10:07 HPI - Anesthesia Eval Consult details Narrative: 74yo M for Cardioversion h/o cardioversion 06/2020 Eliquis for afib ? plavix PMFSH Active Problems Active Problems: All Active Problems (Updated 08/26/20 @ 10:11 by Merlyn Breen PA-C) Pulmonary nodule (Acute) Abnormal SPEP (Acute) Vitamin D deficiency (Acute) Osteoporosis (Acute) Multinodular thyroid (Acute) Paroxysmal A-fib (Acute) Swelling of left lower extremity (Acute) Ascending aortic aneurysm (Acute) Atherosclerotic cardiovascular disease (Acute) Vitamin B12 deficiency (Acute) Hypertension (Acute) Pulmonary nodules/lesions, multiple (Acute) Macrocytic anemia (Acute) Ground glass opacity present on imaging of lung (Acute) Coronary artery disease (Acute) Obesity (BMI 30-39.9) (Acute) Impaired glucose tolerance (Acute) Hypercholesterolemia (Acute) COPD (chronic obstructive pulmonary disease) (Acute) HOLLOWAY (dyspnea on exertion) (Acute) Status post angioplasty with stent (Acute) Stable angina (Acute) Past Medical History Medical History Abnormal SPEP Ascending aorta dilatation Ascending aortic aneurysm Atherosclerotic cardiovascular disease COPD (chronic obstructive pulmonary disease) Coronary artery disease HOLLOWAY (dyspnea on exertion) Former smoker Hypercholesterolemia Hypertension Impaired glucose tolerance Multinodular thyroid Obesity (BMI 30-39.9) Osteoporosis Psoriasis Pulmonary nodule Right renal stone Stable angina Swelling of left lower extremity Thyroid nodule Vitamin D deficiency Wedge compression fracture of T9 vertebra (~09/2018) Family History Family History Father Heart disease Mother No problems noted. Surgical History Surgical History History of appendectomy History of lung biopsy (~11/22/16) History of tonsillectomy Hx of cardiac catheterization (~2019) Status post angioplasty with stent Social History Social History Household Members: Spouse Housing: House Do you presently have visiting nurse or other home services: No Alcohol intake: former Year quit: 2014 Patient Tobacco Use Status: Former Tobacco user Quit Date: 2014 Years Smoked: 50 Use of substances other than those prescribed or required for medical reasons: No Are you DNR?: No Advance Directives: Yes Advance Directives on File: Yes Advance Directives Date on File: 09/21/20 Recently lost weight without trying: No Nutrition Risks: No Nutritional Risk Poor oral hygiene: No service: Yes Current occupational status: retired Meds Allergies Allergy/AdvReac Type Severity Reaction Status Date / Time Penicillins Allergy Severe Anaphylaxis Verified 08/26/20 09:24 hydrochlorothiazide Allergy Unknown unknown Verified 08/26/20 09:24 lisinopril Allergy Unknown unknown Verified 08/26/20 09:24 Home Medications Medication Instructions Recorded Confirmed Last Taken Type budesonide-formoterol HFA 160 2 puff PO BID 02/08/20 08/30/20 04/01/20 History mcg-4.5 mcg/actuation aerosol inhaler adalimumab 40 mg/0.8 mL 40 mg SUBCUT Q2W 04/01/20 08/30/20 03/26/20 History subcutaneous syringe kit Exam Exam Date and Time: October 05, 2020 1004 Pertinent Lab Results Pertinent Lab Results: Laboratory Tests 08/12/20 08/12/20 06:12 06:12 WBC 7.1 Hgb 13.6 L Hct 41.4 L Plt Count 165 Sodium 139 Potassium 4.2 Chloride 105 Carbon Dioxide 27 BUN 22 H Creatinine 0.89 Narrative Narrative: Echo 09/2020 Conclusions: - Limited echocardiogram study with normal LV systolic function with LVEF of 55-60%. EKG 09/2020 Atrial fibrillation 102 beats per minute, normal axis, nonspecific ST-T changes, QTC 417 milliseconds Assessment and Plan Assessment Anesthesia Assessment: Chart Reviewed Documented by User: Lyla Valencia 10/07/20 12:33 [facility], [facility] Past Medical History Medical History Abnormal SPEP Ascending aorta dilatation Ascending aortic aneurysm Atherosclerotic cardiovascular disease COPD (chronic obstructive pulmonary disease) Coronary artery disease HOLLOWAY (dyspnea on exertion) Former smoker Hypercholesterolemia Hypertension Impaired glucose tolerance Multinodular thyroid Obesity (BMI 30-39.9) Osteoporosis Psoriasis Pulmonary nodule Right renal stone Stable angina Swelling of left lower extremity Thyroid nodule Vitamin D deficiency Wedge compression fracture of T9 vertebra (~09/2018) Family History Family History Father Heart disease Mother No problems noted. Surgical History Surgical History History of appendectomy History of lung biopsy (~11/22/16) History of tonsillectomy Hx of cardiac catheterization (~2019) Status post angioplasty with stent Social History Social History Household Members: Spouse Housing: House Do you presently have visiting nurse or other home services: No Alcohol intake: former Year quit: 2014 Patient Tobacco Use Status: Former Tobacco user Quit Date: 2014 Years Smoked: 50 Use of substances other than those prescribed or required for medical reasons: No Are you DNR?: No Advance Directives: Yes Advance Directives on File: Yes Advance Directives Date on File: 09/21/20 Recently lost weight without trying: No Nutrition Risks: No Nutritional Risk Poor oral hygiene: No service: Yes Current occupational status: retired Meds Allergies Allergy/AdvReac Type Severity Reaction Status Date / Time Penicillins Allergy Severe Anaphylaxis Verified 08/26/20 09:24 hydrochlorothiazide Allergy Unknown unknown Verified 08/26/20 09:24 lisinopril Allergy Unknown unknown Verified 08/26/20 09:24 Home Medications Medication Instructions Recorded Confirmed Last Taken Type budesonide-formoterol HFA 160 2 puff PO BID 02/08/20 08/30/20 04/01/20 History mcg-4.5 mcg/actuation aerosol inhaler adalimumab 40 mg/0.8 mL 40 mg SUBCUT Q2W 04/01/20 08/30/20 03/26/20 History subcutaneous syringe kit Exam Airway Mallampati Class: II TM Dist: >3cm Neck ROM: Full Assessment and Plan Assessment Anesthesia Assessment: Anesthesia Plan Discussed and Chart Reviewed Final Anesthetic Review NPO: Yes ASA Class: III Final Preanesthetic Review: No Changes in Pt Med Stat, Meds/Allgs Chart Reviewed, Consent Obtained/Reviewed and Anes Risks/Benef Reviewed Patient Risk: Intermediate Procedure Risk: Low Assessment/Block/Sedation in SS: Assess/Block/Sedation-SS Anesthetic Plan Anesthetic Plan: MAC: Disposition: Standard PACU
--- NOTE | 2020-10-07 | ECG_ITS ---
Test Reason : S/P CARDIOVERSION Blood Pressure : / mmHG Vent. Rate : 088 BPM Atrial Rate : 088 BPM P-R Int : 246 ms QRS Dur : 080 ms QT Int : 370 ms P-R-T Axes : 090 005 044 degrees QTc Int : 447 ms Sinus rhythm with 1st degree A-V block with Premature supraventricular complexes Otherwise normal ECG When compared with ECG of 05-APR-2020 12:22, Premature supraventricular complexes are now Present Referred By: Ja Jean-Baptiste Electronically Signed By:AUTUMN MANCINI
[2020-10-07 11:09] VITALS: BP 116/68; PULSE 105; RESP 16; TEMP 36.9; O2SAT 96; BMI 30.1
[2020-10-07] MEDS: Lactated Ringers 1,000 ML 100 ML IVCONT (11:23)
--- NOTE | 2020-10-07 12:38 | MHC.SHP ---
Pre-Procedural Eval Section A The patient is an INPATIENT: No The History & Physical has been completed within 30 days and I have reviewed it.: No Section B Chief Complaint: A-fib Details of Present Illness: Afib, SOB Allergies: Allergies Allergy/AdvReac Type Severity Reaction Status Date / Time Penicillins Allergy Severe Anaphylaxis Verified 08/26/20 09:24 hydrochlorothiazide Allergy Unknown unknown Verified 08/26/20 09:24 lisinopril Allergy Unknown unknown Verified 08/26/20 09:24 Plan Diagnosis/Plan: Unchanged I have reviewed the history and physical and performed a pertinent physical examination on my patient. No changes have occurred unless specified.
[2020-10-07 12:45] VITALS: BP 129/89; PULSE 78; RESP 16; TEMP 37.1; O2SAT 95
--- NOTE | 2020-10-07 12:46 | HO.CARDIVERS ---
Cardioversion Procedure Note Cardioversion Date of Procedure: 10/07/20 Ordering Provider: Ja Jean-Baptiste Performing Provider: Ja Jean-Baptiste Indication for Procedure: Afib, SOB Pre-Op Diagnosis: Afib Post-Op Diagnosis: Afib Performed with Transesophageal Echo: No History: 74-year-old gentleman with Afib and HOLLOWAY. Consent: Verbal and Written consent was obtained from the patient before starting. The patient was made aware of the risk of stroke. Procedure: After consent obtained, defib pads were attached and the patient was sedated by the anesthesia team. Once adequate sedation achieved, patient was given one synchronized shock of 200 J which reverted him to sinus rhythm with PACs. Complications: None Recommendations: Please continue Eliquis as before. Eliquis should not be interrupted in the next 6 weeks. We will arrange follow up in office.
[2020-10-07 12:50] VITALS: BP 103/71; PULSE 90; RESP 18; O2SAT 94
[2020-10-07 12:55] VITALS: BP 114/75; PULSE 84; RESP 18; O2SAT 95
[2020-10-07 13:00] VITALS: BP 113/77; PULSE 92; RESP 18; O2SAT 96
[2020-10-07 13:15] VITALS: BP 111/84; PULSE 89; RESP 18; TEMP 37.1; O2SAT 96
== END 2020-10-07 14:24 | disposition home or self-care (01) ==
PROVIDERS: PCP Internal Medicine; Visit Provider Internal Medicine Cardiovascular Disease
PROC: 5A2204Z Restoration of Cardiac Rhythm, Single (ICD-10-PCS; principal; 2020-10-07 12:30)
DX: I48.91 Unspecified atrial fibrillation (principal); R06.02 Shortness of breath; I71.2 Thoracic aortic aneurysm, without rupture; Z79.01 Long term (current) use of anticoagulants; I10 Essential (primary) hypertension; Z87.891 Personal history of nicotine dependence; Z88.0 Allergy status to penicillin; Z88.8 Allergy status to other drugs, medicaments and biological substances
CPT/HCPCS: 92960; 93005

== ENCOUNTER → 2020-10-12 15:12 | Outpatient (BNVA) | payer MEDICARE, SELFPAY | PROVIDERS: PCP Internal Medicine; Visit Provider Internal Medicine Cardiovascular Disease | DX: I48.0 Paroxysmal atrial fibrillation (principal); R06.00 Dyspnea, unspecified; I71.4 Abdominal aortic aneurysm, without rupture; I25.10 Atherosclerotic heart disease of native coronary artery without angina pectoris; I10 Essential (primary) hypertension; E78.00 Pure hypercholesterolemia, unspecified; E55.9 Vitamin D deficiency, unspecified; Z87.891 Personal history of nicotine dependence; Z98.890 Other specified postprocedural states; Z95.5 Presence of coronary angioplasty implant and graft | CPT/HCPCS: 93005; 99212 ==

== ENCOUNTER → 2020-10-14 13:45 | Outpatient (BNVA) | payer MEDICARE, SELFPAY | PROVIDERS: PCP Internal Medicine; Visit Provider Hospitalist | DX: J40 Bronchitis, not specified as acute or chronic (principal); J43.9 Emphysema, unspecified; R04.2 Hemoptysis | CPT/HCPCS: 99212 ==

== ENCOUNTER 2020-10-26 08:04 | Outpatient (REF) | payer MEDICARE, SELFPAY ==
[2020-10-26 12:36] LABS: Free T4 (Free Thyroxine) 1.06 ng/dL (0.71-1.85); Thyroid Stimulating Hormone 1.38 uIU/mL (0.32-4.0); Vitamin D 25-OH Total 32.6 ng/mL (>30)
== END 2020-10-26 08:05 | disposition home or self-care (01) ==
LOC: HO.HMGCLDS 08:04
PROVIDERS: PCP Internal Medicine; Visit Provider Internal Medicine
DX: E04.2 Nontoxic multinodular goiter (principal); E55.9 Vitamin D deficiency, unspecified
CPT/HCPCS: 36415; 82306; 84439; 84443; Q3014

== ENCOUNTER 2020-11-28 06:39 | Emergency (ER) | payer MEDICARE, SELFPAY ==
[2020-11-28] VITALS (7 sets, daily range): BP systolic 83–153; BP diastolic 51–89; PULSE 65–88; RESP 16–18; TEMP 36.5; O2SAT 93–96; BMI 29.9
--- NOTE | 2020-11-28 | ECG_ITS ---
Test Reason : CHEST PAIN Blood Pressure : / mmHG Vent. Rate : 085 BPM Atrial Rate : 330 BPM P-R Int : 000 ms QRS Dur : 082 ms QT Int : 360 ms P-R-T Axes : 000 012 031 degrees QTc Int : 428 ms Atrial flutter with variable A-V block Abnormal ECG When compared with ECG of 07-OCT-2020 12:59, Atrial flutter has replaced Sinus rhythm Referred By: Generic ED Physician Electronically Signed By:MIAH FERMIN MD
--- NOTE | 2020-11-28 07:13 | ED_ITS ---
HPI - Chest Pain General Chief Complaint: Chest Pain Stated Complaint: chest pain Time Seen by Provider: 11/28/20 07:12 Source: patient Mode of arrival: ambulatory Limitations: no limitations History of Present Illness HPI narrative: chest pain the pain started this morning and reminded him when he had his heart attack. Patient had 2 stents placed in Apr 2019. Patient has not had a stress test since his stents. Patient is on plavix and fer PAINTING complaint: chest heaviness Pertinent past history: coronary artery disease Onset (ago): hour(s) Timing of current episode: constant Onset: during rest Pain location: left chest Quality: dull Relieving factors: nothing Risk Factors Coronary artery disease risk factors: hyperlipidemia and hypertension Related Data Home Medications Medication Instructions Recorded Confirmed adalimumab 40 mg/0.8 mL 40 mg SUBCUT Q2W 04/01/20 11/24/20 subcutaneous syringe kit (Humira) Previous Rx's Medication Instructions Recorded cyanocobalamin (vitamin B-12) 1,000 mcg PO DAILY #90 tab 06/30/20 1,000 mcg tablet atorvastatin 80 mg tablet 80 mg PO BEDTIME #90 tab 10/12/20 clopidogrel 75 mg tablet 75 mg PO DAILY #90 tab 10/12/20 budesonide-formoterol HFA 160 2 puff PO BID #3 ea 10/13/20 mcg-4.5 mcg/actuation aerosol inhaler diltiazem HCl 300 mg 300 mg PO DAILY #90 cap 10/17/20 capsule,extended release 24 hr apixaban 5 mg tablet (Eliquis) 5 mg PO BID #60 tab 10/20/20 Allergies Allergy/AdvReac Type Severity Reaction Status Date / Time hydrochlorothiazide Allergy Severe Anaphylaxis Verified 10/26/20 09:22 lisinopril Allergy Severe Anaphylaxis Verified 10/26/20 09:22 Penicillins Allergy Severe Anaphylaxis Verified 10/26/20 09:22 Review of Systems Constitutional: Constitutional: Reports no additional constitutional complaints Eyes: Eyes: Reports no additional eye complaints ENT: Denies dizziness Cardiovascular: Cardiovascular: Reports no additional cardiovascular complaints Respiratory: Respiratory: Reports as per HPI Gastrointestinal: Gastrointestinal: Reports no additional gastrointestinal complaints Musculoskeletal: Musculoskeletal: Reports no additional musculoskeletal complaints Integumentary/Breasts: Skin/Breast: Denies rash Neurologic: Reports system reviewed and no additional complaints, except as documented, Denies dizziness and Denies Sensory deficit (Neuro) Psychiatric: Psychiatric: Denies anxiety [facility]LY [facility] Past Medical History Medical History Abnormal SPEP Ascending aorta dilatation Ascending aortic aneurysm Atherosclerotic cardiovascular disease COPD (chronic obstructive pulmonary disease) Coronary artery disease HOLLOWAY (dyspnea on exertion) Former smoker Hemoptysis Hypercholesterolemia Hypertension Impaired glucose tolerance Multinodular thyroid Obesity (BMI 30-39.9) Osteoporosis Psoriasis Pulmonary nodule Right renal stone Stable angina Swelling of left lower extremity Thyroid nodule Vitamin D deficiency Wedge compression fracture of T9 vertebra (~09/2018) Surgical History History of appendectomy History of cardioversion History of lung biopsy (~11/22/16) History of tonsillectomy Hx of cardiac catheterization (~2019) Status post angioplasty with stent Family History Family History Father Heart disease Mother No problems noted. Paternal Grandfather Heart disease Social History Social History Household Members: Spouse Housing: House Do you presently have visiting nurse or other home services: No Alcohol intake: former Year quit: 2014 Patient Tobacco Use Status: Former Tobacco user Quit Date: 2014 Years Smoked: 50 Use of substances other than those prescribed or required for medical reasons: No Advance Directives: Yes Advance Directives on File: Yes Advance Directives Date on File: 09/21/20 service: Yes Current occupational status: retired Physical Exam Vital Signs: Vital Signs: Last Vital Signs Temp 97.7 F 11/28/20 07:26 Pulse 65 11/28/20 09:17 Resp 16 11/28/20 09:17 BP 108/76 11/28/20 09:17 Pulse Ox 96 11/28/20 09:17 Body Mass Index 29.9 Const: General: healthy appearing Nutritional Appearance: average body habitus Orientation/consciousness: oriented to person and patient oriented x3 Limitations: no limitations HENMT: Head: Yes normal to inspection Ears: external ears normal General nose exam: Normal external nose present Mouth: Normal oral and palatal mucosa present and oropharynx normal Throat: Yes posterior oropharynx normal Eyes: General: appearance normal, both eyes and all related structures Neck: Other: supple Neck: Yes normal visual inspection Chest: Chest palpation & inspection: normal inspection of the chest Resp: Auscultation: clear to auscultation bilaterally Cardio: Jugular venous distension: no JVD Rate: regular rate Rhythm: regular rhythm Heart sounds: S1 normal heart sound present and S2 normal heart sound present GI: Inspection: Yes normal to inspection Palpation (GI): Soft to palpation, nontender and No hepatosplenomegaly present Auscultation: normal bowel sounds : General: Yes no CVA tenderness Back/Spine/Pelvis: Back: no CVA tenderness Skin: General skin exam: no rashes or lesions noted Neuro: General: oriented to person and patient oriented x3 Cranial nerves: Yes CN's II-XII intact bilaterally Motor exam (neuro): 5/5 motor strength present throughout Sensory Exam: No Sensory deficit (Neuro) Extrem: General: Yes normal to inspection Psych: Appearance: grossly normal Course Course Course Narrative: Discussed with Dr. Jean-Baptiste. Will obtain second troponin. If negative he will follow patient in the office. 9:42am Reevaluation(s) Reevaluation #1: troponin negative will dc home. not likely to be cardiac but will have patinet follow up with Dr. Jean-Baptiste Time: 11:32 MDM - Chest Pain Lab Data Result diagrams: 11/28/20 07:36 11/28/20 07:36 Labs: Lab Results 11/28/20 11/28/20 11/28/20 Range/Units 07:36 07:36 07:36 WBC 6.2 (4.8-10.8) X10*3/uL RBC 3.68 L (4.60-5.80) X10*6/uL Hgb 12.8 L (14.0-18.0) g/dl Hct 37.3 L (42-52) % MCV 101.4 H (80-98) fL MCH 34.8 H (27.0-33.0) pg MCHC 34.3 (31.0-36.0) g/dl RDW 14.4 (11.0-16.0) % Plt Count 151 L (160-400) X10*3/uL MPV 9.0 L (9.4-12.4) fL Immature Gran % (Auto) 0.3 (0.0-0.4) % Neut % (Auto) 67.2 (45-73) % Lymph % (Auto) 20.4 (20-40) % [place] % (Auto) 11.3 H (2-11) % Eos % (Auto) 0.6 (0-4) % Baso % (Auto) 0.2 (0-2) % Lymph # (Auto) 1.3 (1.2-4.9) X10*3/uL [place] # (Auto) 0.7 (0.1-1.2) X10*3/uL Eos # (Auto) 0.0 (0.0-0.4) X10*3/uL Baso # (Auto) 0.0 (0.0-0.2) X10*3/uL Abs Immat Gran (auto) 0.02 (0.00-0.03) X10*3/uL Absolute Neuts (auto) 4.1 (2.0-8.3) X10*3/uL Absolute Nucleated RBC 0.000 (0.0-0.012) X10*3/uL Nucleated RBC % (auto) 0.0 (0.0-0.2) /100WBC Sodium 140 (135-145) mmol/L Potassium 4.2 (3.3-5.1) mmol/L Chloride 110 H (96-108) mmol/L Carbon Dioxide 22 (22-29) mmol/L Anion Gap 12 (12-20) BUN 23 H (9-16) mg/dL Creatinine 0.97 (0.5-1.4) mg/dL Estim Creat Clear Calc 74.8 Estimated GFR > 60 Random Glucose 109 (60-115) mg/dL Calcium 8.4 (8.4-10.2) mg/dL Troponin I High Sens < 3.5 (<3.5-35.0) ng/L 11/28/20 Range/Units 10:31 WBC (4.8-10.8) X10*3/uL RBC (4.60-5.80) X10*6/uL Hgb (14.0-18.0) g/dl Hct (42-52) % MCV (80-98) fL MCH (27.0-33.0) pg MCHC (31.0-36.0) g/dl RDW (11.0-16.0) % Plt Count (160-400) X10*3/uL MPV (9.4-12.4) fL Immature Gran % (Auto) (0.0-0.4) % Neut % (Auto) (45-73) % Lymph % (Auto) (20-40) % [place] % (Auto) (2-11) % Eos % (Auto) (0-4) % Baso % (Auto) (0-2) % Lymph # (Auto) (1.2-4.9) X10*3/uL [place] # (Auto) (0.1-1.2) X10*3/uL Eos # (Auto) (0.0-0.4) X10*3/uL Baso # (Auto) (0.0-0.2) X10*3/uL Abs Immat Gran (auto) (0.00-0.03) X10*3/uL Absolute Neuts (auto) (2.0-8.3) X10*3/uL Absolute Nucleated RBC (0.0-0.012) X10*3/uL Nucleated RBC % (auto) (0.0-0.2) /100WBC Sodium (135-145) mmol/L Potassium (3.3-5.1) mmol/L Chloride (96-108) mmol/L Carbon Dioxide (22-29) mmol/L Anion Gap (12-20) BUN (9-16) mg/dL Creatinine (0.5-1.4) mg/dL Estim Creat Clear Calc Estimated GFR Random Glucose (60-115) mg/dL Calcium (8.4-10.2) mg/dL Troponin I High Sens < 3.5 (<3.5-35.0) ng/L ECG Data ECG #1: Interpretation: Atrial flutter rate [address] or twave changes Discharge Plan Discharge Clinical Impression: Atypical chest pain, Chest pain Patient Disposition: Home, Self-Care Instructions: Chest Pain (ED) Prescriptions: No Action cyanocobalamin (vitamin B-12) 1,000 mcg tablet 1,000 mcg PO DAILY Qty: 90 RF: 3 clopidogrel 75 mg tablet 75 mg PO DAILY Qty: 90 RF: 1 atorvastatin 80 mg tablet 80 mg PO BEDTIME Qty: 90 RF: 2 budesonide-formoterol 160-4.5 mcg/actuation HFA aerosol inhaler 2 puff PO BID Qty: 3 RF: 3 diltiazem HCl 300 mg capsule,extended release 24hr 300 mg PO DAILY Qty: 90 RF: 1 apixaban [Eliquis] 5 mg tablet 5 mg PO BID Qty: 60 RF: 5 Humira 40 mg/0.8 mL syringe kit 40 mg subcut Q2W RF: 0 Referrals: Po,Oswaldo Deng MD [Primary Care Provider] - 1 week Ja Jean-Baptiste MD [Physician] - 2 days
[2020-11-28 07:41] LABS: MANUAL DIFF FLAG NO
[2020-11-28 07:42] LABS: Basophils Percent Auto 0.2 % (0-2); Eosinophils Percent Auto 0.6 % (0-4); Hematocrit 37.3 % (42-52); Hemoglobin 12.8 g/dl (14.0-18.0); Imm Gran Abs Auto 0.02 X10*3/uL (0.00-0.03); Imm Gran Pct Auto 0.3 % (0.0-0.4); Lymphocytes Absolute Auto 1.3 X10*3/uL (1.2-4.9); Lymphocytes Percent Auto 20.4 % (20-40); Mean Corpuscular HGB Conc 34.3 g/dl (31.0-36.0); Mean Corpuscular Hemoglobin 34.8 pg (27.0-33.0); Mean Corpuscular Volume 101.4 fL (80-98); Monocytes Absolute Auto 0.7 X10*3/uL (0.1-1.2); Monocytes Percent Auto 11.3 % (2-11); Neutrophils Absolute Auto 4.1 X10*3/uL (2.0-8.3); Neutrophils Percent Auto 67.2 % (45-73); Platelet Count 151 X10*3/uL (160-400); Red Blood Count 3.68 X10*6/uL (4.60-5.80); Red Cell Distribution Width 14.4 % (11.0-16.0); White Blood Count 6.2 X10*3/uL (4.8-10.8)
[2020-11-28] MEDS: Nitroglycerin 0.4 MG TAB.SUBL SUBLINGUAL (07:42)
--- NOTE | 2020-11-28 07:46 | PC.NURSE ---
Nitro given as charted for dull 2/10 chest pain, left sided, no radiation. Sat 92 on RA, placed on 2lpm via nc, LS clear. Denies any sob. Breathing unlabored. A flutter on tele, rate controlled 70-80s.
--- NOTE | 2020-11-28 07:51 | PC.NURSE ---
S/P nitro, pain 05/01, fluids started, SBP down to 80s s/p Nitro, Dr Apodaca aware.
[2020-11-28 08:08] LABS: Anion Gap 12 (12-20); Blood Urea Nitrogen 23 mg/dL (9-16); Calcium 8.4 mg/dL (8.4-10.2); Carbon Dioxide 22 mmol/L (22-29); Chloride 110 mmol/L (96-108); Creatinine Clr Calc Pharmacy 74.8; Estimated Glomerular Filt Rate > 60; Glucose Random 109 mg/dL (60-115); Potassium 4.2 mmol/L (3.3-5.1); Sodium 140 mmol/L (135-145)
[2020-11-28 08:11] LABS: Troponin-I High Sensitivity < 3.5 ng/L (<3.5-35.0)
[2020-11-28] MEDS: Nitroglycerin 2 % Oint 1 GM Packet 1 INCH TRANSDERMA (09:15)
--- NOTE | 2020-11-28 09:25 | PC.NURSE ---
Plan to consult Dr Walters. Nitro to left chest 1 inch, pain 05/01 at this time
[2020-11-28 11:07] LABS: Troponin-I High Sensitivity < 3.5 ng/L (<3.5-35.0)
== END 2020-11-28 12:03 | disposition home or self-care (01) ==
PROVIDERS: Emergency Provider Emergency Medicine; PCP Internal Medicine
DX: R07.9 Chest pain, unspecified (principal); I10 Essential (primary) hypertension; E78.5 Hyperlipidemia, unspecified; I25.10 Atherosclerotic heart disease of native coronary artery without angina pectoris; Z79.899 Other long term (current) drug therapy; Z87.891 Personal history of nicotine dependence
CPT/HCPCS: 36415; 80048; 84484; 85025; 93005; 99283; 99285

== ENCOUNTER → 2020-12-01 13:12 | Outpatient (BNVA) | payer MEDICARE, SELFPAY | PROVIDERS: PCP Internal Medicine; Visit Provider Nurse Practitioner Family | DX: I48.0 Paroxysmal atrial fibrillation (principal); I25.10 Atherosclerotic heart disease of native coronary artery without angina pectoris; I10 Essential (primary) hypertension; R07.89 Other chest pain; E78.00 Pure hypercholesterolemia, unspecified; Z95.820 Peripheral vascular angioplasty status with implants and grafts | CPT/HCPCS: 99212 ==

== ENCOUNTER 2020-12-05 06:03 | Outpatient (REF) | payer MEDICARE, SELFPAY ==
[2020-12-05 11:31] LABS: MANUAL DIFF FLAG NO
[2020-12-05 11:38] LABS: Basophils Percent Auto 0.2 % (0-2); Eosinophils Percent Auto 0.6 % (0-4); Hematocrit 39.7 % (42-52); Hemoglobin 13.2 g/dl (14.0-18.0); Imm Gran Abs Auto 0.02 X10*3/uL (0.00-0.03); Imm Gran Pct Auto 0.3 % (0.0-0.4); Lymphocytes Absolute Auto 1.2 X10*3/uL (1.2-4.9); Lymphocytes Percent Auto 19.7 % (20-40); Mean Corpuscular HGB Conc 33.2 g/dl (31.0-36.0); Mean Corpuscular Hemoglobin 34.2 pg (27.0-33.0); Mean Corpuscular Volume 102.8 fL (80-98); Mean Platelet Volume 9.8 fL (9.4-12.4); Monocytes Absolute Auto 0.7 X10*3/uL (0.1-1.2); Monocytes Percent Auto 11.8 % (2-11); Neutrophils Absolute Auto 4.2 X10*3/uL (2.0-8.3); Neutrophils Percent Auto 67.4 % (45-73); Platelet Count 196 X10*3/uL (160-400); Red Blood Count 3.86 X10*6/uL (4.60-5.80); Red Cell Distribution Width 14.5 % (11.0-16.0); White Blood Count 6.2 X10*3/uL (4.8-10.8)
[2020-12-05 11:52] LABS: Albumin Level 3.9 g/dL (3.5-5.0); Calcium 8.6 mg/dL (8.4-10.2)
[2020-12-05 12:00] LABS: Alanine Aminotransferase 28 U/L (0-40); Albumin Level 3.9 g/dL (3.5-5.0); Alkaline Phosphatase 114 U/L (39-117); Anion Gap 13 (12-20); Aspartate Amino Transferase 20 U/L (5-37); Bilirubin Total 0.9 mg/dL (0.0-1.0); Blood Urea Nitrogen 24 mg/dL (9-16); Calcium 8.4 mg/dL (8.4-10.2); Carbon Dioxide 25 mmol/L (22-29); Chloride 107 mmol/L (96-108); Estimated Glomerular Filt Rate > 60; Glucose Random 106 mg/dL (60-115); Potassium 3.9 mmol/L (3.3-5.1); Sodium 141 mmol/L (135-145); Total Protein 6.9 g/dL (6.5-8.0)
[2020-12-05 12:25] LABS: Folate 9.7 ng/mL (> or = 4.0); Free T4 (Free Thyroxine) 0.98 ng/dL (0.71-1.85); Thyroid Stimulating Hormone 1.71 uIU/mL (0.32-4.0); Vitamin B12 1075 pg/mL (200-900)
== END 2020-12-05 06:04 | disposition home or self-care (01) ==
LOC: HO.HMGCLDS 06:03
PROVIDERS: Internal Medicine; PCP Internal Medicine; Visit Provider Internal Medicine
DX: E04.2 Nontoxic multinodular goiter (principal)
CPT/HCPCS: 36415; 80053; 82040; 82310; 82607; 82746; 84439; 84443; 85025

== ENCOUNTER → 2020-12-21 13:05 | Outpatient (BNVA) | payer MEDICARE, SELFPAY | PROVIDERS: PCP Internal Medicine; Referring Provider Internal Medicine; Visit Provider Internal Medicine Cardiovascular Disease | DX: I48.0 Paroxysmal atrial fibrillation (principal); I20.8 Other forms of angina pectoris; R06.00 Dyspnea, unspecified; I71.2 Thoracic aortic aneurysm, without rupture; J44.9 Chronic obstructive pulmonary disease, unspecified; E55.9 Vitamin D deficiency, unspecified; Z98.890 Other specified postprocedural states; Z95.5 Presence of coronary angioplasty implant and graft; Z87.891 Personal history of nicotine dependence | CPT/HCPCS: 99212 ==

== ENCOUNTER 2021-01-20 10:13 | Outpatient (REF) | payer MEDICARE, SELFPAY ==
[2021-01-20 13:12] LABS: Prostate Specific Antigen 0.15 ng/mL (<0.05-4.0)
== END 2021-01-20 10:14 | disposition home or self-care (01) ==
LOC: HO.HMGCLDS 10:13
PROVIDERS: Nurse Practitioner Family; PCP Internal Medicine; Visit Provider Internal Medicine
DX: Z12.5 Encounter for screening for malignant neoplasm of prostate (principal)
CPT/HCPCS: 36415; 84153

== ENCOUNTER → 2021-02-24 08:33 | Outpatient (BNVA) | payer MEDICARE, SELFPAY | PROVIDERS: PCP Internal Medicine; Visit Provider Internal Medicine Pulmonary Disease | DX: J43.9 Emphysema, unspecified (principal); R06.00 Dyspnea, unspecified; R91.8 Other nonspecific abnormal finding of lung field | CPT/HCPCS: 99212 ==

== ENCOUNTER 2021-05-09 08:53 | Outpatient (REF) | payer MEDICARE, SELFPAY ==
[2021-05-09 12:10] LABS: Phosphorus 3.7 mg/dL (2.7-4.5)
[2021-05-09 12:13] LABS: Free T4 (Free Thyroxine) 0.78 ng/dL (0.71-1.85); Thyroid Stimulating Hormone 4.31 uIU/mL (0.32-4.0); Vitamin D 25-OH Total 18.2 ng/mL (>30)
[2021-05-10 15:55] LABS: Calcium (PTHI) 9.1 mg/dL (8.6-10.3); PTHI 57 pg/mL (14-64)
== END 2021-05-09 08:54 | disposition home or self-care (01) ==
LOC: HO.HMGCLDS 08:53
PROVIDERS: Visit Provider Internal Medicine
DX: E04.2 Nontoxic multinodular goiter (principal); E55.9 Vitamin D deficiency, unspecified; M81.0 Age-related osteoporosis without current pathological fracture
CPT/HCPCS: 36415; 82306; 83970; 84100; 84439; 84443

== ENCOUNTER → 2021-05-15 13:02 | Outpatient (BNVA) | payer MEDICARE, SELFPAY | PROVIDERS: PCP Internal Medicine; Referring Provider Internal Medicine; Visit Provider Internal Medicine Cardiovascular Disease | DX: Z01.810 Encounter for preprocedural cardiovascular examination (principal); I20.8 Other forms of angina pectoris | CPT/HCPCS: 93005; 99212 ==

== ENCOUNTER 2021-05-31 06:24 | Day surgery (SDC) | payer MEDICARE, SELFPAY ==
[2021-05-24 15:38] VITALS: BMI 32.6
--- NOTE | 2021-05-30 10:48 | P.CONAN_ITS ---
Documented by User: Marleny Low NP 05/30/21 10:52 HPI - Anesthesia Eval Consult details Narrative: 75yo M for Colonoscopy Cardiac cleared at [facility] for afib Plavix s/p cardioversion 09/2020 with TIVA PMFSH Active Problems Active Problems: All Active Problems (Updated 05/24/21 @ 08:42 by Sheridan Gore MD) Preop cardiovascular exam (Acute) Postoperative hypothyroidism (Acute) Bicipital tendinitis of left shoulder (Acute) Obesity (BMI 30-39.9) (Acute) Atrial fibrillation (Acute) BMI 29.0-29.9,adult (Acute) Adult general medical exam (Acute) Screening for prostate cancer (Acute) Screening for colon cancer (Acute) Hemoptysis (Acute) HOLLOWAY (dyspnea on exertion) (Acute) Pulmonary nodule (Acute) Abnormal SPEP (Acute) Vitamin D deficiency (Acute) Osteoporosis (Acute) Multinodular thyroid (Acute) Paroxysmal A-fib (Acute) Swelling of left lower extremity (Acute) Ascending aortic aneurysm (Acute) Atherosclerotic cardiovascular disease (Acute) Vitamin B12 deficiency (Acute) Hypertension (Acute) Pulmonary nodules/lesions, multiple (Acute) Macrocytic anemia (Acute) Coronary artery disease (Acute) Obesity (BMI 30-39.9) (Acute) Impaired glucose tolerance (Acute) Hypercholesterolemia (Acute) COPD (chronic obstructive pulmonary disease) (Acute) HOLLOWAY (dyspnea on exertion) (Acute) Status post angioplasty with stent (Acute) Stable angina (Acute) Past Medical History Medical History Abnormal SPEP Ascending aorta dilatation Ascending aortic aneurysm Atherosclerotic cardiovascular disease Bronchitis Chest discomfort COPD (chronic obstructive pulmonary disease) Coronary artery disease HOLLOWAY (dyspnea on exertion) Former smoker Ground glass opacity present on imaging of lung Hemoptysis Hypercholesterolemia Hypertension Impaired glucose tolerance Multinodular thyroid Obesity (BMI 30-39.9) Osteoporosis Postoperative hypothyroidism Psoriasis Pulmonary nodule Right renal stone Screening for colon cancer Screening for prostate cancer Stable angina Swelling of left lower extremity Thyroid nodule Vitamin D deficiency Wedge compression fracture of T9 vertebra (~09/2018) Family History Family History Father Heart disease Mother No problems noted. Paternal Grandfather Heart disease Surgical History Surgical History History of appendectomy History of cardioversion History of colonoscopy History of lung biopsy (~11/22/16) History of tonsillectomy Hx of cardiac catheterization (~2019) Hx of partial thyroidectomy Status post angioplasty with stent Social History Social History Household Members: Spouse Housing: House Do you presently have visiting nurse or other home services: No Alcohol intake: former Year quit: 2014 Patient Tobacco Use Status: Former Tobacco user Quit Date: 2014 Tobacco use type: Cigarette Years Smoked: 50 e-Cigarette/Vaping Use: Never Used Second Hand Smoke Exposure: No Are you DNR?: No Advance Directives: Yes Advance Directives on File: Yes Advance Directives Date on File: 09/21/20 Recently lost weight without trying: No Nutrition Risks: No Nutritional Risk service: Yes Current occupational status: retired Meds Allergies Allergy/AdvReac Type Severity Reaction Status Date / Time hydrochlorothiazide Allergy Severe Anaphylaxis Verified 05/24/21 15:26 lisinopril Allergy Severe Anaphylaxis Verified 05/24/21 15:26 Penicillins Allergy Severe Anaphylaxis Verified 05/24/21 15:26 Home Medications Medication Instructions Recorded Confirmed Last Taken Type adalimumab 40 mg/0.8 mL 40 mg SUBCUT Q2W 04/01/20 05/24/21 03/26/20 History subcutaneous syringe kit (Humira) cyanocobalamin (vitamin B-12) 1,000 mcg PO DAILY 05/24/21 05/24/21 Unknown History 1,000 mcg tablet (Vitamin B-12) metoprolol tartrate 25 mg tablet 50 mg PO BID 05/24/21 05/24/21 05/31/21 History Exam Exam Date and Time: May 30, 2021 1048 Height,Weight and Vital Signs: Height 5 ft 9 in Weight 100.244 kg Pertinent Lab Results Pertinent Lab Results: Laboratory Tests 05/24/21 05/24/21 08:38 08:38 WBC 7.3 Hgb 13.0 L Hct 39.5 L Plt Count 182 Sodium 141 Potassium 4.0 Chloride 107 Carbon Dioxide 27 BUN 22 H Creatinine 1.04 Narrative Narrative: EKG 04/2021 Atrial fibrillation 107 beats per minute, nonspecific ST-T changes, QTC 429 millisecond Assessment and Plan Assessment Anesthesia Assessment: Chart Reviewed Documented by User: Charu Sandhu MD 05/31/21 09:29 [facility] Active Problems Active Problems: All Active Problems (Updated 05/24/21 @ 08:42 by Sheridan Gore MD) Preop cardiovascular exam (Acute) Postoperative hypothyroidism (Acute) Bicipital tendinitis of left shoulder (Acute) Obesity (BMI 30-39.9) (Acute) Atrial fibrillation (Acute). On eliquis. Last dose 05/27/21 BMI 29.0-29.9,adult (Acute) Adult general medical exam (Acute) Screening for prostate cancer (Acute) Screening for colon cancer (Acute) Hemoptysis (Acute) HOLLOWAY (dyspnea on exertion) (Acute) Pulmonary nodule (Acute) Abnormal SPEP (Acute)? Serum Electrophoresis? Vitamin D deficiency (Acute) Osteoporosis (Acute) Multinodular thyroid (Acute) Paroxysmal A-fib (Acute) Swelling of left lower extremity (Acute) Ascending aortic aneurysm (Acute) Atherosclerotic cardiovascular disease (Acute) Vitamin B12 deficiency (Acute) Hypertension (Acute) Pulmonary nodules/lesions, multiple (Acute) Macrocytic anemia (Acute) Coronary artery disease (Acute) Obesity (BMI 30-39.9) (Acute) Impaired glucose tolerance (Acute) Hypercholesterolemia (Acute) COPD (chronic obstructive pulmonary disease) (Acute) HOLLOWAY (dyspnea on exertion) (Acute) Status post angioplasty with stent (Acute). On plavix. Last dose 05/25/21 Stable angina (Acute) Past Medical History Medical History Abnormal SPEP Ascending aorta dilatation Ascending aortic aneurysm Atherosclerotic cardiovascular disease Bronchitis Chest discomfort COPD (chronic obstructive pulmonary disease) Coronary artery disease HOLLOWAY (dyspnea on exertion) Former smoker Ground glass opacity present on imaging of lung Hemoptysis Hypercholesterolemia Hypertension Impaired glucose tolerance Multinodular thyroid Obesity (BMI 30-39.9) Osteoporosis Postoperative hypothyroidism Psoriasis Pulmonary nodule Right renal stone Screening for colon cancer Screening for prostate cancer Stable angina Swelling of left lower extremity Thyroid nodule Vitamin D deficiency Wedge compression fracture of T9 vertebra (~09/2018) Family History Family History Father Heart disease Mother No problems noted. Paternal Grandfather Heart disease Family history of problems with anesthesia: No Surgical History Surgical History History of appendectomy History of cardioversion History of colonoscopy History of lung biopsy (~11/22/16) History of tonsillectomy Hx of cardiac catheterization (~2019) Hx of partial thyroidectomy Status post angioplasty with stent History of Problems with Anesthesia: No Social History Social History Household Members: Spouse Housing: House Do you presently have visiting nurse or other home services: No Alcohol intake: former Year quit: 2014 Patient Tobacco Use Status: Former Tobacco user Quit Date: 2014 Tobacco use type: Cigarette Years Smoked: 50 e-Cigarette/Vaping Use: Never Used Second Hand Smoke Exposure: No Are you DNR?: No Advance Directives: Yes Advance Directives on File: Yes Advance Directives Date on File: 09/21/20 Recently lost weight without trying: No Nutrition Risks: No Nutritional Risk service: Yes Current occupational status: retired Meds Allergies Allergy/AdvReac Type Severity Reaction Status Date / Time hydrochlorothiazide Allergy Severe Anaphylaxis Verified 05/24/21 15:26 lisinopril Allergy Severe Anaphylaxis Verified 05/24/21 15:26 Penicillins Allergy Severe Anaphylaxis Verified 05/24/21 15:26 Home Medications Medication Instructions Recorded Confirmed Last Taken Type adalimumab 40 mg/0.8 mL 40 mg SUBCUT Q2W 04/01/20 05/24/21 03/26/20 History subcutaneous syringe kit (Humira) cyanocobalamin (vitamin B-12) 1,000 mcg PO DAILY 05/24/21 05/24/21 Unknown History 1,000 mcg tablet (Vitamin B-12) metoprolol tartrate 25 mg tablet 50 mg PO BID 05/24/21 05/24/21 05/31/21 History Exam Height,Weight and Vital Signs: Height 5 ft 9 in Weight 100.244 kg Vital Signs Temp Pulse Resp BP Pulse Ox 05/31/21 06:31 97.6 F 88 18 130/91 H 96 Airway Mallampati Class: II TM Dist: >3cm Neck ROM: Full Loose/Missing/Broken Teeth: Yes (Missing some) Heart: Irregularly irregular Lungs: CTAB Assessment and Plan Assessment Anesthesia Assessment: Anesthesia Plan Discussed Final Anesthetic Review Family History of Problems with Anesthesia: No History of Problems with Anesthesia: No NPO: Yes ASA Class: III Final Preanesthetic Review: No Changes in Pt Med Stat, Meds/Allgs Chart Reviewed, Consent Obtained/Reviewed and Anes Risks/Benef Reviewed Patient Risk: Intermediate Procedure Risk: Low Assessment/Block/Sedation in SS: Assess/Block/Sedation-SS Anesthetic Plan Anesthetic Plan: MAC: Disposition: Standard PACU
[2021-05-31 06:31] VITALS: BP 130/91; PULSE 88; RESP 18; TEMP 36.4; O2SAT 96
[2021-05-31] MEDS: Lactated Ringers 1,000 ML 50 ML IVCONT (06:57)
[2021-05-31 08:32] VITALS: BP 100/51; PULSE 73; RESP 18; TEMP 36.9; O2SAT 96
--- NOTE | 2021-05-31 08:35 | P.BOP_ITS ---
Brief Operative Note Date of Service: 05/31/21 Pre-op diagnosis: Screening Post-op diagnosis: other (Colon polyp, Diverticulosis) Procedure: Colonoscopy to the cecum with bx/removal of polyp Surgeon: Ever Monet Anesthesia: MAC Was an Gardening Supervisor used for this Procedure?: No Estimated blood loss (mL): 2.0 Pathology: other (A. Polyp at 50cm) Condition: stable Disposition: PACU
[2021-05-31 08:47] VITALS: BP 80/50; PULSE 70; RESP 18; TEMP 36.9; O2SAT 94
[2021-05-31 08:52] VITALS: BP 86/62; PULSE 67; RESP 20; O2SAT 95
--- NOTE | 2021-05-31 09:00 | OP_ITS ---
SURGEON: Ever Monet MD INDICATIONS: The patient presents for evaluation of colorectal cancer screening. Full consent has been obtained from him for this, including risks of bleeding and perforation. PREOPERATIVE DIAGNOSIS: Colorectal cancer screening. POSTOPERATIVE DIAGNOSIS: PROCEDURE PERFORMED: Colonoscopy to the cecum with biopsy and removal of polyp. ESTIMATED BLOOD LOSS: COMPLICATIONS: ANESTHESIA: Monitored anesthesia care. ASSISTANTS: SPECIMENS: POSTOPERATIVE DIAGNOSES: Colorectal cancer screening, small colon polyp, diverticulosis, and internal hemorrhoids. DESCRIPTION OF PROCEDURE: The patient was placed in the left lateral decubitus position. The digital rectal exam revealed no abnormalities. The Olympus video pediatric colonoscope was entered into the rectum and advanced easily to the cecum. Once in the cecum, I did identify normal-appearing cecal pouch with appendiceal orifice and a normal-appearing ileocecal valve. There was transillumination of light deep in the right lower quadrant. The entire cecum appeared normal. The scope was slowly withdrawn assessing all mucosal surfaces carefully. Preparation was excellent. At 50 cm was a flat approximately 3 or 4 mm polyp, which was biopsied and completely removed with cold biopsy forceps. I did not visualize any other polyps, colitis, or angiodysplasia. There was a moderate amount of diverticulosis in the sigmoid and descending colon. In the rectum, the scope was retroflexed visualizing internal hemorrhoids, but no other pathology. The rectal mucosa appeared normal. The scope was straightened and withdrawn from the patient. He tolerated the procedure well and was returned to the recovery area in stable condition. IMPRESSION: 1. Small colon polyp, status post biopsy removal. 2. Diverticulosis. 3. Internal hemorrhoids. PLAN: The results of the biopsy will be checked. Even if this is a tubular adenoma, I do not think he will need any further screening colonoscopies given his age and these minimal findings. He was advised to resume his Plavix and Eliquis today. He had been on aspirin while he stopped his Plavix and I did advise him to speak with his housing project manager and/or primary care physician as to whether he should resume the aspirin or remain off it now that he is going back on Eliquis and Plavix. He has been given instructions in this regard and this has been discussed with his . MD MARCO Crane/FERL / [phone] KOURTNEY
[2021-05-31 09:02] VITALS: BP 103/64; PULSE 76; RESP 17; O2SAT 96
[2021-05-31 09:17] VITALS: BP 110/73; PULSE 72; RESP 16; TEMP 36.9; O2SAT 94
== END 2021-05-31 09:46 | disposition home or self-care (01) ==
PROVIDERS: PCP Internal Medicine; Visit Provider Internal Medicine
PROC: 0DJD8ZZ Inspection of Lower Intestinal Tract, Via Natural or Artificial Opening Endoscopic (ICD-10-PCS; CPT 45378; principal; 2021-05-31 07:30)
DX: Z12.11 Encounter for screening for malignant neoplasm of colon (principal); D12.5 Benign neoplasm of sigmoid colon; K57.30 Diverticulosis of large intestine without perforation or abscess without bleeding; K64.8 Other hemorrhoids; I25.10 Atherosclerotic heart disease of native coronary artery without angina pectoris; Z98.61 Coronary angioplasty status; Z95.1 Presence of aortocoronary bypass graft; I10 Essential (primary) hypertension; I71.2 Thoracic aortic aneurysm, without rupture; J44.9 Chronic obstructive pulmonary disease, unspecified; E78.00 Pure hypercholesterolemia, unspecified; E89.0 Postprocedural hypothyroidism; Z87.891 Personal history of nicotine dependence; Z79.01 Long term (current) use of anticoagulants; Z79.899 Other long term (current) drug therapy; Z88.0 Allergy status to penicillin; Z88.8 Allergy status to other drugs, medicaments and biological substances
CPT/HCPCS: 45380; 88305

== ENCOUNTER 2021-06-22 11:24 | Outpatient (REF) | payer MEDICARE, SELFPAY ==
[2021-06-22 14:25] LABS: Free T4 (Free Thyroxine) 0.84 ng/dL (0.71-1.85); Thyroid Stimulating Hormone 3.71 uIU/mL (0.32-4.0); Vitamin D 25-OH Total 18.9 ng/mL (>30)
== END 2021-06-22 11:25 | disposition home or self-care (01) ==
LOC: HO.HMGCLDS 11:24
PROVIDERS: PCP Internal Medicine; Visit Provider Internal Medicine
DX: E89.0 Postprocedural hypothyroidism (principal); E55.9 Vitamin D deficiency, unspecified
CPT/HCPCS: 36415; 82306; 84439; 84443

== ENCOUNTER → 2021-06-28 10:45 | Outpatient (BNVA) | payer MEDICARE, SELFPAY | PROVIDERS: PCP Internal Medicine; Visit Provider Internal Medicine | DX: E04.2 Nontoxic multinodular goiter (principal); E89.0 Postprocedural hypothyroidism; E55.9 Vitamin D deficiency, unspecified; Z79.899 Other long term (current) drug therapy | CPT/HCPCS: 99212 ==

== ENCOUNTER 2021-07-24 09:09 | Outpatient (REF) | payer MEDICARE, SELFPAY ==
--- NOTE | ~2021-07-24 | CT_ITS ---
EXAMINATION: CT CHEST SCREENING CLINICAL INFORMATION: Current smoker. 50 pack-year history. COMPARISON: Previous chest CT scans most recent July 2020 TECHNIQUE: Multidetector volumetric CT imaging of the chest is performed without contrast using low dose technique. Additional 2D coronal and sagittal reformatted images and axial 3D maximum intensity projection (MIP) images are generated on the CT workstation. This CT examination was performed using dose optimization techniques as appropriate, variously including the following: *Automated exposure control *Adjustment of mA and/or kV according to patient size (this includes techniques or standardized protocols for targeted exams where dose is matched to indication/reason for exam; i.e. extremities or head) *Use of iterative reconstruction technique DLP: 314 mGy-cm FINDINGS: LUNGS: There is evidence of emphysema. There is biapical pleural and parenchymal scarring. There are increased peripheral reticular markings and increased parenchymal attenuation suggestive of interstitial lung disease. This is greatest in the right middle and right lower lobes. This appears increased in the right middle and lower lobes and improved in the left upper lobe compared to July 2020 exam. There are denser areas of consolidation or denser nodular opacities in the peripheral right middle and right lower lobes, for example measuring 5 mm in the right middle lobe axial image 303 series 5, 1.2 cm in the right lower lobe axial image 308 series 5 and irregular larger area in the peripheral or subpleural right lower lobe measuring 1.4 x 4.3 cm axial image 344 series 5. The previously identified 5 mm superior segment left lower lobe nodule that was new on July 2020 exam is no longer seen. The previously identified nodular density in the medial basal left lower lobe that was aspirated on April 2020 is no longer seen. MEDIASTINUM: The left lobe of the thyroid gland has been removed in the interval from July 2020. The right lobe is normal-appearing. The heart is slightly enlarged. There is coronary artery and aortic valve calcification. The ascending thoracic aorta is slightly dilated measuring 4.3 x 4.2 cm. This is stable. The aortic arch and descending thoracic aorta are normal in caliber. There is diffuse mediastinal lymphadenopathy. Larger lymph nodes are upper normal in size. This is unchanged. No hilar adenopathy is appreciated. PLEURA: There is a new tiny right pleural effusion or pleural thickening. There is no left pleural effusion or pleural thickening. AXILLA: No lymphadenopathy. UPPER ABDOMEN: Stable low-attenuation liver lesions probably representing cysts. Atherosclerotic disease. Diverticulosis of the colon. OSSEOUS STRUCTURES: Unremarkable. CT/CT lung screening IMPRESSION: Emphysema. Biapical pleural parenchymal scarring. Peripheral interstitial lung disease with waxing and waning appearance. It is now currently increased in the right middle and right lower lobes and improved in the left upper and left lower lobes compared to previous exams. There are new denser areas of peripheral or subpleural consolidation or nodular opacities in the right middle and right lower lobes. Coronary artery and aortic valve calcification. Stable dilatation of the ascending thoracic aorta. ASSESSMENT: Lung-RADS category 3: Probably Benign RECOMMENDATION: Low-dose chest CT follow-up in 6 months recommended.
== END 2021-07-24 09:10 | disposition home or self-care (01) ==
LOC: HO.CT 09:09
PROVIDERS: PCP Internal Medicine; Visit Provider Physician Assistant Medical
DX: J43.9 Emphysema, unspecified (principal); J84.89 Other specified interstitial pulmonary diseases; F17.210 Nicotine dependence, cigarettes, uncomplicated
CPT/HCPCS: 71271

== ENCOUNTER → 2021-07-26 10:09 | Outpatient (BNVA) | payer MEDICARE, SELFPAY | PROVIDERS: PCP Internal Medicine; Visit Provider Internal Medicine Pulmonary Disease | DX: J43.9 Emphysema, unspecified (principal); R91.8 Other nonspecific abnormal finding of lung field | CPT/HCPCS: 99212 ==

== ENCOUNTER 2021-08-14 06:03 | Outpatient (REF) | payer MEDICARE, SELFPAY ==
[2021-08-14 11:35] LABS: MANUAL DIFF FLAG NO
[2021-08-14 11:58] LABS: Basophils Percent Auto 0.3 % (0-2); Eosinophils Percent Auto 0.5 % (0-4); Hemoglobin 12.9 g/dl (14.0-18.0); Imm Gran Abs Auto 0.02 X10*3/uL (0.00-0.03); Imm Gran Pct Auto 0.3 % (0.0-0.4); Lymphocytes Percent Auto 16.1 % (20-40); Mean Corpuscular HGB Conc 33.1 g/dl (31.0-36.0); Mean Corpuscular Volume 105.7 fL (80.0-98.0); Mean Platelet Volume 9.9 fL (9.4-12.4); Monocytes Absolute Auto 0.7 X10*3/uL (0.1-1.2); Monocytes Percent Auto 11.2 % (2-11); Neutrophils Absolute Auto 4.5 x10*3/uL (2.0-8.3); Neutrophils Percent Auto 71.6 % (45-73); Platelet Count 169 X10*3/uL (160-400); Red Blood Count 3.69 X10*6/uL (4.60-5.80); Red Cell Distribution Width 13.2 % (11.0-16.0); White Blood Count 6.3 X10*3/uL (4.8-10.8)
[2021-08-14 12:33] LABS: Alanine Aminotransferase 21 U/L (0-40); Albumin Level 3.8 g/dL (3.5-5.0); Alkaline Phosphatase 114 U/L (39-117); Anion Gap 11 (12-20); Aspartate Amino Transferase 17 U/L (5-37); Bilirubin Total 0.9 mg/dL (0.0-1.0); Blood Urea Nitrogen 24 mg/dL (9-16); Calcium 8.3 mg/dL (8.4-10.2); Carbon Dioxide 26 mmol/L (22-29); Chloride 107 mmol/L (96-108); Cholesterol 127 mg/dL; Estimated Glomerular Filt Rate > 60; Glucose Random 122 mg/dL (60-115); HDL Cholesterol 47 mg/dL; LDL Cholesterol Calculated 56 mg/dl; Potassium 3.7 mmol/L (3.3-5.1); Sodium 140 mmol/L (135-145); Total Protein 6.8 g/dL (6.5-8.0); Triglycerides 120 mg/dL
[2021-08-14 12:34] LABS: Free T4 (Free Thyroxine) 1.03 ng/dL (0.71-1.85); Thyroid Stimulating Hormone 4.19 uIU/mL (0.32-4.0)
[2021-08-14 12:40] LABS: Folate 8.9 ng/mL (> or = 4.0); Vitamin B12 882 pg/mL (200-900)
== END 2021-08-14 06:04 | disposition home or self-care (01) ==
LOC: HO.HMGCLDS 06:03
PROVIDERS: Visit Provider Internal Medicine
DX: I10 Essential (primary) hypertension (principal); E78.00 Pure hypercholesterolemia, unspecified
CPT/HCPCS: 36415; 80053; 80061; 82607; 82746; 84439; 84443; 85025

== ENCOUNTER 2021-08-15 08:47 | Outpatient (REF) | payer MEDICARE, SELFPAY ==
[2021-08-15 12:16] LABS: B Type Natriuretic Peptide 282 pg/mL (<100)
== END 2021-08-15 08:48 | disposition home or self-care (01) ==
LOC: HO.HMGCLDS 08:47
PROVIDERS: Visit Provider Internal Medicine
DX: I10 Essential (primary) hypertension (principal)
CPT/HCPCS: 36415; 83880

== ENCOUNTER 2021-08-23 10:05 | Outpatient (REF) | payer MEDICARE, SELFPAY ==
--- NOTE | ~2021-08-23 | US_ITS ---
EXAMINATION: US VENOUS ULTRASOUND WITH DOPPLER LOWER EXTREMITY, RIGHT CLINICAL INFORMATION: Right leg pain and numbness. COMPARISON: None TECHNIQUE: Ultrasound of the deep veins is performed from the hip to the calf with compression sonography and color and pulse Doppler assessment. Spectral analysis with color-flow imaging is performed. FINDINGS: There is normal venous compression and respiratory variation and augmented flow. The visualized common femoral vein, superficial femoral vein, profunda femoral vein, popliteal vein, and the trifurcation region shows no evidence of deep venous thrombosis. No right popliteal cyst. The subcutaneous soft tissues are unremarkable. Scanning in the mid thighs showed no abnormality in the region of numbness. If the patient's symptoms persist, followup ultrasound in 5 days 7 days might be of value to exclude proximal propagation from a non-visualized calf vein. US/US venous duplex LE RT IMPRESSION: No DVT demonstrated in the right lower extremity. No other significant abnormality.
[2021-08-23 12:57] LABS: Anion Gap 14 (12-20); Blood Urea Nitrogen 26 mg/dL (9-16); Calcium 9.3 mg/dL (8.4-10.2); Carbon Dioxide 25 mmol/L (22-29); Chloride 105 mmol/L (96-108); Estimated Glomerular Filt Rate > 60; Glucose Random 95 mg/dL (60-115); Sodium 140 mmol/L (135-145)
[2021-08-23 13:16] LABS: Free T4 (Free Thyroxine) 1.02 ng/dL (0.71-1.85)
[2021-08-23 13:20] LABS: Thyroid Stimulating Hormone 3.26 uIU/mL (0.32-4.0)
== END 2021-08-23 10:06 | disposition home or self-care (01) ==
LOC: HO.US 10:05
PROVIDERS: Internal Medicine; PCP Internal Medicine; Visit Provider Nurse Practitioner Family
DX: M79.604 Pain in right leg (principal); R20.0 Anesthesia of skin; E04.2 Nontoxic multinodular goiter; E11.9 Type 2 diabetes mellitus without complications
CPT/HCPCS: 36415; 80048; 84439; 84443; 93971

== ENCOUNTER → 2021-09-13 14:32 | Outpatient (BNVA) | payer MEDICARE, SELFPAY | PROVIDERS: PCP Internal Medicine; Referring Provider Internal Medicine; Visit Provider Internal Medicine Cardiovascular Disease | DX: I10 Essential (primary) hypertension (principal); I20.8 Other forms of angina pectoris; I48.20 Chronic atrial fibrillation, unspecified; Z79.01 Long term (current) use of anticoagulants; Z79.899 Other long term (current) drug therapy | CPT/HCPCS: 99212 ==

== ENCOUNTER → 2021-09-25 08:54 | Outpatient (BNVA) | payer MEDICARE, SELFPAY | PROVIDERS: PCP Internal Medicine; Referring Provider Internal Medicine; Visit Provider Internal Medicine Cardiovascular Disease | DX: Z01.89 Encounter for other specified special examinations (principal) | CPT/HCPCS: 99211 ==

== ENCOUNTER → 2021-12-18 08:43 | Outpatient (BNVA) | payer MEDICARE, SELFPAY | PROVIDERS: PCP Internal Medicine; Referring Provider Internal Medicine; Visit Provider Internal Medicine Cardiovascular Disease | DX: I48.20 Chronic atrial fibrillation, unspecified (principal); I25.10 Atherosclerotic heart disease of native coronary artery without angina pectoris; Z79.899 Other long term (current) drug therapy | CPT/HCPCS: 93005; 99212 ==

== ENCOUNTER 2022-01-18 06:05 | Outpatient (REF) | payer MEDICARE, SELFPAY ==
[2022-01-18 08:15] LABS: B Type Natriuretic Peptide 251 pg/mL (<100)
[2022-01-18 11:34] LABS: MANUAL DIFF FLAG NO
[2022-01-18 11:45] LABS: Basophils Percent Auto 0.2 % (0-2); Eosinophils Absolute Auto 0.1 X10*3/uL (0.0-0.4); Eosinophils Percent Auto 1.8 % (0-4); Hematocrit 34.9 % (42.0-52.0); Hemoglobin 11.3 g/dl (14.0-18.0); Imm Gran Abs Auto 0.01 X10*3/uL (0.00-0.03); Imm Gran Pct Auto 0.2 % (0.0-0.4); Lymphocytes Absolute Auto 0.6 X10*3/uL (1.2-4.9); Lymphocytes Percent Auto 12.9 % (20-40); Mean Corpuscular HGB Conc 32.4 g/dl (31.0-36.0); Mean Corpuscular Hemoglobin 33.7 pg (27.0-33.0); Mean Corpuscular Volume 104.2 fL (80.0-98.0); Mean Platelet Volume 9.9 fL (9.4-12.4); Monocytes Absolute Auto 0.7 X10*3/uL (0.1-1.2); Monocytes Percent Auto 14.5 % (2-11); Neutrophils Absolute Auto 3.4 x10*3/uL (2.0-8.3); Neutrophils Percent Auto 70.4 % (45-73); Platelet Count 175 X10*3/uL (160-400); Red Blood Count 3.35 X10*6/uL (4.60-5.80); Red Cell Distribution Width 13.9 % (11.0-16.0); White Blood Count 4.9 X10*3/uL (4.8-10.8)
[2022-01-18 11:59] LABS: Estimated Average Glucose 114 mg/dL; Hemoglobin A1c % 5.6 %
[2022-01-18 12:12] LABS: Alanine Aminotransferase 21 U/L (0-40); Albumin Level 3.5 g/dL (3.5-5.0); Alkaline Phosphatase 142 U/L (39-117); Anion Gap 12 (12-20); Aspartate Amino Transferase 17 U/L (5-37); Bilirubin Total 0.9 mg/dL (0.0-1.0); Blood Urea Nitrogen 23 mg/dL (9-16); Calcium 8.1 mg/dL (8.4-10.2); Carbon Dioxide 26 mmol/L (22-29); Chloride 106 mmol/L (96-108); Cholesterol 100 mg/dL; Estimated Glomerular Filt Rate > 60; Glucose Random 114 mg/dL (60-115); HDL Cholesterol 32 mg/dL; LDL Cholesterol Calculated 47 mg/dl; Potassium 3.9 mmol/L (3.3-5.1); Sodium 140 mmol/L (135-145); Total Protein 6.3 g/dL (6.5-8.0); Triglycerides 108 mg/dL
[2022-01-18 12:23] LABS: Thyroid Stimulating Hormone 2.66 uIU/mL (0.32-4.0); Vitamin D 25-OH Total 56.7 ng/mL (>30)
[2022-01-18 12:44] LABS: Folate 11.9 ng/mL (> or = 4.0); Vitamin B12 905 pg/mL (200-900)
== END 2022-01-18 06:06 | disposition home or self-care (01) ==
LOC: HO.HMGCLDS 06:05
PROVIDERS: Absent Provider Internal Medicine; PCP Internal Medicine; Visit Provider Internal Medicine
DX: E04.2 Nontoxic multinodular goiter (principal); E55.9 Vitamin D deficiency, unspecified; I48.91 Unspecified atrial fibrillation; E78.00 Pure hypercholesterolemia, unspecified; R73.02 Impaired glucose tolerance (oral)
CPT/HCPCS: 36415; 80053; 80061; 82306; 82607; 82746; 83036; 83880; 84439; 84443; 85025

== ENCOUNTER → 2022-01-25 09:44 | Outpatient (BNVA) | payer MEDICARE, SELFPAY | PROVIDERS: PCP Internal Medicine; Visit Provider Internal Medicine Pulmonary Disease | DX: J43.9 Emphysema, unspecified (principal); R91.8 Other nonspecific abnormal finding of lung field | CPT/HCPCS: 99212 ==

== ENCOUNTER 2022-01-31 17:45 | Inpatient (IN) | payer MEDICARE, SELFPAY ==
--- NOTE | ~2022-01-31 | CT_ITS ---
EXAMINATION: CT CHEST WITHOUT CONTRAST CLINICAL INFORMATION: Dyspnea, hypoxia and COPD. . Question interstitial lung disease. COMPARISON: Previous chest x-ray most recent from yesterday and chest CT most recent July 2021 TECHNIQUE: Multidetector volumetric CT imaging of the chest was done. Axial MIP volume rendering provided. Sagittal and coronal reformatted images were obtained. This CT examination was performed using dose optimization techniques as appropriate, variously including the following: *Automated exposure control *Adjustment of mA and/or kV according to patient size (this includes techniques or standardized protocols for targeted exams where dose is matched to indication/reason for exam; i.e. extremities or head) *Use of iterative reconstruction technique DLP: 186 mGy-cm FINDINGS: LUNGS: There is evidence of peripheral interstitial lung disease with increased peripheral reticular markings in groundglass attenuation, right greater than left. This is increased from July 2021 exam. No pulmonary nodule. Mild paraseptal emphysema. No bronchiectasis. MEDIASTINUM: There is stable mediastinal lymphadenopathy. Larger lymph nodes are upper normal in size. No hilar adenopathy. Normal heart size. Coronary artery and aortic valve calcification. No pericardial effusion. Slightly dilated ascending thoracic aorta measuring 4.3 x 4.5 cm. The left lobe of the thyroid gland may been removed. CORONARY ARTERY CALCIFICATION: Moderate to severe PLEURA: There is no pleural effusion. No pleural mass or thickening. AXILLA: No lymphadenopathy. UPPER ABDOMEN: There are stable low-attenuation liver lesions probably representing cysts. OSSEOUS STRUCTURES: There are degenerative changes of the spine. CT/CT chest wo IV con IMPRESSION: Interstitial lung disease, right greater than left, increased from July 2021 exam. Coronary artery and aortic valve calcification and slightly dilated ascending thoracic aorta. Fleischner guidelines were followed.
--- NOTE | ~2022-01-31 | XR_ITS ---
EXAMINATION: XR CHEST CLINICAL INFORMATION: Dyspnea. COMPARISON: Most recent CT chest dated 07/24/2021. TECHNIQUE: Frontal view of the chest was obtained. FINDINGS: Diffuse, chronic-appearing interstitial prominence without a focal airspace consolidation. No pleural effusion or pneumothorax. Stable cardiomediastinal silhouette. XR/XR chest 1V IMPRESSION: No focal airspace consolidation.
[2022-01-31 17:55] VITALS: BP 129/79; PULSE 86; RESP 20; TEMP 36.7; O2SAT 91; BMI 32.1
--- NOTE | 2022-01-31 17:57 | ECG_ITS ---
Test Reason : SOB Blood Pressure : / mmHG Vent. Rate : 091 BPM Atrial Rate : 000 BPM P-R Int : 000 ms QRS Dur : 078 ms QT Int : 352 ms P-R-T Axes : 000 022 037 degrees QTc Int : 432 ms Atrial fibrillation Abnormal ECG When compared with ECG of 28-NOV-2020 06:58, Atrial fibrillation has replaced Atrial flutter Referred By: Generic ED Physician Electronically Signed By:FAREED GARVEY MD
[2022-01-31 18:10] LABS: MANUAL DIFF FLAG NO
[2022-01-31 18:11] LABS: Basophils Percent Auto 0.2 % (0-2); Eosinophils Absolute Auto 0.1 X10*3/uL (0.0-0.4); Hematocrit 33.8 % (42.0-52.0); Hemoglobin 11.3 g/dl (14.0-18.0); Imm Gran Abs Auto 0.01 X10*3/uL (0.00-0.03); Imm Gran Pct Auto 0.2 % (0.0-0.4); Lymphocytes Absolute Auto 0.7 X10*3/uL (1.2-4.9); Lymphocytes Percent Auto 12.1 % (20-40); Mean Corpuscular HGB Conc 33.4 g/dl (31.0-36.0); Mean Corpuscular Hemoglobin 33.1 pg (27.0-33.0); Mean Corpuscular Volume 99.1 fL (80.0-98.0); Mean Platelet Volume 9.4 fL (9.4-12.4); Monocytes Absolute Auto 0.8 X10*3/uL (0.1-1.2); Monocytes Percent Auto 13.6 % (2-11); Neutrophils Percent Auto 71.9 % (45-73); Platelet Count 185 X10*3/uL (160-400); Red Blood Count 3.41 X10*6/uL (4.60-5.80); Red Cell Distribution Width 13.8 % (11.0-16.0); White Blood Count 5.5 X10*3/uL (4.8-10.8)
[2022-01-31 18:19] LABS: D Dimer High Sensitivity 165 NG/ML
[2022-01-31 18:23] LABS: Anion Gap 17 (12-20); Blood Urea Nitrogen 28 mg/dL (9-16); Calcium 8.4 mg/dL (8.4-10.2); Carbon Dioxide 20 mmol/L (22-29); Chloride 105 mmol/L (96-108); Creatinine Clr Calc Pharmacy 68.4; Estimated Glomerular Filt Rate > 60; Glucose Random 115 mg/dL (60-115); Potassium 3.7 mmol/L (3.3-5.1); Sodium 138 mmol/L (135-145)
[2022-01-31 18:31] LABS: Troponin-I High Sensitivity < 3.5 ng/L (<3.5-35.0)
[2022-01-31 18:49] LABS: Influenza A PCR NEGATIVE (Negative); Influenza B PCR NEGATIVE (Negative); Resp Syncy Virus RNA Qual PCR NEGATIVE (Negative); SARS COV2 PCR INHOUSE NEGATIVE (Negative)
[2022-01-31 20:26] VITALS: BP 142/89; PULSE 94; RESP 21; O2SAT 93
--- NOTE | 2022-01-31 20:45 | ED.SOB ---
HPI - SOB/Dyspnea General Chief Complaint: Dyspnea Stated Complaint: SOB Sent by Time Seen by Provider: 01/31/22 20:22 Source: patient Mode of arrival: ambulatory Limitations: no limitations History of Present Illness HPI Narrative: Patient comes to the emergency room complaining of shortness of breath with exertion. Patient states this has been going on for approximately 2-3 weeks. Patient was seen by his furrier apprentice , Dr. Casas 1 week ago, patient was prescribed Levaquin for 1 week, last dose was this morning. Patient continued complaining of shortness of breath. Patient spoke with his human resources support specialist Dr. Jean-Baptiste, who advised him to come to the emergency room for further evaluation. Patient states that whenever he is sitting he feels well, only when he walks, he becomes very short of breath. Patient denies any chest pain, no calf pain, no lower extremity edema. Related Data Home Medications Medication Instructions Recorded Confirmed adalimumab 40 mg/0.8 mL 40 mg subcut Q2W 04/01/20 01/25/22 subcutaneous syringe kit (Naehas) Previous Rx's Medication Instructions Recorded metoprolol tartrate 25 mg tablet 50 mg PO BID 90 days #360 tabs 06/07/21 cyanocobalamin (vitamin B-12) 1,000 mcg PO DAILY #90 tabs 06/20/21 1,000 mcg tablet (Vitamin B-12) cholecalciferol (vitamin D3) 50 50 mcg PO DAILY 30 days #30 caps 06/28/21 mcg (2,000 unit) capsule atorvastatin 80 mg tablet 80 mg PO BEDTIME #90 tabs 07/27/21 clopidogrel 75 mg tablet 75 mg PO DAILY #90 tabs 10/16/21 diltiazem HCl 300 mg 300 mg PO DAILY #90 caps 10/16/21 capsule,extended release 24 hr apixaban 5 mg tablet (Eliquis) 5 mg PO BID #60 tabs 10/30/21 levothyroxine 25 mcg tablet 25 mcg PO DAILY 30 days #30 tabs 10/30/21 budesonide 160 mcg-glycopyr 9 2 inh inhalation BID 30 days #1 ea 01/25/22 mcg-formot 4.8 mcg/actuation HFA inhaler (Breztri Aerosphere) levofloxacin 750 mg tablet 750 mg PO DAILY 7 days #7 tabs 01/25/22 Allergies Allergy/AdvReac Type Severity Reaction Status Date / Time hydrochlorothiazide Allergy Severe Anaphylaxis Verified 01/25/22 10:46 lisinopril Allergy Severe Anaphylaxis Verified 01/25/22 10:46 Penicillins Allergy Severe Anaphylaxis Verified 01/25/22 10:46 Review of Systems Review of Systems: Constitutional : No Weight loss, No Fever, No Chills, No Night Sweats, No Fatigue, No Malaise ENT/Mouth : No Hearing loss, No Ear Pain, No Nasal Congestion, No Sinus Pain, No Hoarseness, No sore throat, No Rhinorrhea, No Swallowing Difficulty Eyes: No Eye Pain, No Swelling, No Redness, No Foreign Body, No Discharge, No Vision Changes Cardiovascular : No Chest Pain, no orthopnea, no edema no palpitations Respiratory : No Cough, No Sputum, chronic wheezing, shortness of breath with exertion, normal breathing at rest Gastrointestinal : No Nausea, No Vomiting, No Diarrhea, No Constipation, No abdominal Pain, No Hematochezia, No Melena Genitourinary : no irregular bleeding, No Dysuria, No Urinary Frequency, No Hematuria, No Urinary Incontinence, No Urgency, No Flank Pain, No Urinary Flow Changes, No Hesitancy Musculoskeletal : No joint pain, No Myalgias, No Joint Swelling Skin : No Skin Lesions, No rash Neuro : No Weakness, No Numbness, No Paresthesias, No Loss of Consciousness, No Dizziness, No Headache Psych : No Anxiety/Panic, No Depression, No SI/HI/AH/VH, No Social Issues, Heme/Lymph: No Bruising, No Bleeding,No Lymphadenopathy Endocrine : No Polyuria, No Polydipsia, No Temperature Intolerance [facility] Past Medical History Medical History Abnormal SPEP Ascending aorta dilatation Atrial fibrillation Bronchitis Chest discomfort COPD (chronic obstructive pulmonary disease) Coronary artery disease HOLLOWAY (dyspnea on exertion) Former smoker Ground glass opacity present on imaging of lung Hemoptysis Hypercholesterolemia Hypertension Impaired glucose tolerance Multinodular thyroid Obesity (BMI 30-39.9) Obesity (BMI 30-39.9) Postoperative hypothyroidism Psoriasis Pulmonary nodules/lesions, multiple Right renal stone Stable angina Swelling of left lower extremity Thyroid nodule Tubular adenoma of colon (~2021) Vitamin D deficiency Wedge compression fracture of T9 vertebra (~2018) Surgical History History of appendectomy History of cardioversion (~2020) History of colonoscopy History of heart artery stent (~2019) History of lung biopsy (~2016) History of partial thyroidectomy (~2020) History of tonsillectomy Family History Family History Father Heart disease Mother No problems noted. Paternal Grandfather Heart disease Social History Social History Household Members: Spouse Housing: House Do you presently have visiting nurse or other home services: No Alcohol intake: former Year quit: 2014 Patient Tobacco Use Status: Former Tobacco user Quit Date: 2014 Tobacco use type: Cigarette Years Smoked: 50 e-Cigarette/Vaping Use: Never Used Second Hand Smoke Exposure: No Advance Directives: Yes Advance Directives Information Provided: No Advance Directives on File: No Advance Directives Date on File: 09/21/20 service: Yes Current occupational status: retired Cognitive needs: No Hearing needs: No Vision needs: No Physical Exam Vital Signs: Vital Signs: Last Vital Signs Temp 98.0 F 01/31/22 17:55 Pulse 94 01/31/22 20:26 Resp 21 H 01/31/22 20:26 BP 142/89 H 01/31/22 20:26 Pulse Ox 93 01/31/22 20:26 O2 Del Method 01/31/22 20:26 BMI result Body Mass Index 32.1 Const: Other: Appearance: Alert. Oriented X3. No acute distress. Eyes: Pupils equal, round and reactive to light. ENT: Pharynx normal. Neck: Normal inspection. Neck supple. No lymph nodes noted. No crepitus CVS: Normal heart rate and rhythm. Pulses normal. Normal S1 and S2 Respiratory: No respiratory distress. Breath sounds normal. No Wheezing. No rales , oxygen saturation 93-94% on room air. However, with minimal exertion, oxygen saturation drops to 83%. Abdomen: Soft and nontender. No rigidity. No distention. Skin: Skin warm and dry. Normal skin color. Normal skin turgor. Extremities: No lower extremity edema. No Lacerations. No Rash Neuro: Oriented X 3. No motor deficit. No sensory deficit. Moving all extremities. No slurred speech. CN 2 through 12 grossly intact Psych: calm, cooperative, normal affect Course Course Course Narrative: At this time, I do not believe the patient has a COPD exacerbation, he has a has significantly advanced COPD. It will be unsafe to discharge the patient with his oxygen dropping to 83%. Since the patient was being considered for pulmonary rehab, but unclear if the process has started. I discussed the patient with Dr. Barrett, at this time, we will not give patient any antibiotics, but patient will be admitted. Chest x-ray is negative, troponin negative, BNP at baseline. No lower extremity edema to suggest CHF exacerbation. MDM - SOB/Dyspnea Lab Data Result diagrams: 01/31/22 18:04 01/31/22 18:04 Labs: Lab Results 01/31/22 01/31/22 01/31/22 Range/Units 18:04 18:04 18:04 WBC 5.5 (4.8-10.8) X10*3/uL RBC 3.41 L (4.60-5.80) X10*6/uL Hgb 11.3 L (14.0-18.0) g/dl Hct 33.8 L (42.0-52.0) % MCV 99.1 H (80.0-98.0) fL MCH 33.1 H (27.0-33.0) pg MCHC 33.4 (31.0-36.0) g/dl RDW 13.8 (11.0-16.0) % Plt Count 185 (160-400) X10*3/uL MPV 9.4 (9.4-12.4) fL Immature Gran % (Auto) 0.2 (0.0-0.4) % Neut % (Auto) 71.9 (45-73) % Lymph % (Auto) 12.1 L (20-40) % Allen % (Auto) 13.6 H (2-11) % Eos % (Auto) 2.0 (0-4) % Baso % (Auto) 0.2 (0-2) % Lymph # (Auto) 0.7 L (1.2-4.9) X10*3/uL Allen # (Auto) 0.8 (0.1-1.2) X10*3/uL Eos # (Auto) 0.1 (0.0-0.4) X10*3/uL Baso # (Auto) 0.0 (0.0-0.2) X10*3/uL Abs Immat Gran (auto) 0.01 (0.00-0.03) X10*3/uL Absolute Neuts (auto) 4.0 (2.0-8.3) x10*3/uL Absolute Nucleated RBC 0.000 (0.0-0.012) X10*3/uL Nucleated RBC % (auto) 0.0 (0.0-0.2) /100WBC D-Dimer High Sensitivty 165 NG/ML Sodium 138 (135-145) mmol/L Potassium 3.7 (3.3-5.1) mmol/L Chloride 105 (96-108) mmol/L Carbon Dioxide 20 L (22-29) mmol/L Anion Gap 17 (12-20) BUN 28 H (9-16) mg/dL Creatinine 1.03 (0.5-1.4) mg/dL Estim Creat Clear Calc 68.4 Estimated GFR > 60 Random Glucose 115 (60-115) mg/dL Calcium 8.4 (8.4-10.2) mg/dL Troponin I High Sens (<3.5-35.0) ng/L B-Natriuretic Peptide (<100) pg/mL Influenza Type A (PCR) (Negative) Influenza Type B (PCR) (Negative) RSV RNA Qual (PCR) (Negative) SARS-CoV-2 RNA (RT-PCR) (Negative) 01/31/22 01/31/22 Range/Units 18:04 18:04 WBC (4.8-10.8) X10*3/uL RBC (4.60-5.80) X10*6/uL Hgb (14.0-18.0) g/dl Hct (42.0-52.0) % MCV (80.0-98.0) fL MCH (27.0-33.0) pg MCHC (31.0-36.0) g/dl RDW (11.0-16.0) % Plt Count (160-400) X10*3/uL MPV (9.4-12.4) fL Immature Gran % (Auto) (0.0-0.4) % Neut % (Auto) (45-73) % Lymph % (Auto) (20-40) % Allen % (Auto) (2-11) % Eos % (Auto) (0-4) % Baso % (Auto) (0-2) % Lymph # (Auto) (1.2-4.9) X10*3/uL Allen # (Auto) (0.1-1.2) X10*3/uL Eos # (Auto) (0.0-0.4) X10*3/uL Baso # (Auto) (0.0-0.2) X10*3/uL Abs Immat Gran (auto) (0.00-0.03) X10*3/uL Absolute Neuts (auto) (2.0-8.3) x10*3/uL Absolute Nucleated RBC (0.0-0.012) X10*3/uL Nucleated RBC % (auto) (0.0-0.2) /100WBC D-Dimer High Sensitivty NG/ML Sodium (135-145) mmol/L Potassium (3.3-5.1) mmol/L Chloride (96-108) mmol/L Carbon Dioxide (22-29) mmol/L Anion Gap (12-20) BUN (9-16) mg/dL Creatinine (0.5-1.4) mg/dL Estim Creat Clear Calc Estimated GFR Random Glucose (60-115) mg/dL Calcium (8.4-10.2) mg/dL Troponin I High Sens < 3.5 (<3.5-35.0) ng/L B-Natriuretic Peptide 231 H (<100) pg/mL Influenza Type A (PCR) NEGATIVE (Negative) Influenza Type B (PCR) NEGATIVE (Negative) RSV RNA Qual (PCR) NEGATIVE (Negative) SARS-CoV-2 RNA (RT-PCR) NEGATIVE (Negative) Imaging Data Chest x-ray: Radiologist's impression: FINDINGS: Diffuse, chronic-appearing interstitial prominence without a focal airspace consolidation. No pleural effusion or pneumothorax. Stable cardiomediastinal silhouette. XR/XR chest 1V IMPRESSION: No focal airspace consolidation. Critical Care Time Critical Care Time Critical Care Time: Yes Total Critical Care Time: 30 Attestation: I have personally provided critical care time. Time includes review of lab data, radiology results, discussion with consultants, and monitoring for potential decompensation. Intervention performed as documented. Discharge Plan Discharge Clinical Impression: COPD (chronic obstructive pulmonary disease) Patient Disposition: Admitted As Inpatient
[2022-01-31 20:49] LABS: B Type Natriuretic Peptide 231 pg/mL (<100)
--- NOTE | 2022-01-31 20:57 | PC.NURSE ---
PATIENT AMBULATED 02 STAT WAS 93 PRIOR TO AMBULATION.PATIENTS OXYGEN DROPPED TO 83-84 AFTER WALKING A SHORT DISTANCE.PATIENT SHOWED SIGNS OF FATIGUE.RESPIRATIONS 20
--- NOTE | 2022-01-31 21:06 | PM.IMHP ---
History of Present Illness Date of Service: 01/31/22 Attending physician on admission: Consuelo Barrett Chief Complaint: sob 76-year-old male with history of chronic atrial fibrillation anticoagulated with Eliquis, COPD, hypertension, hypercholesterolemia, coronary artery disease s/p PCI, postoperative hypothyroidism, osteoporosis presents to the ED today for evaluation of shortness of breath ongoing for 2-3 weeks. He recently evaluated by his communications professor and global marketing operations manager and prescribed Levaquin for 1 week completed today for COPD exacerbation. Pt called communications professor due to ongoing alex and was advised to present to the ed. No history CHF. Chest x-ray without acute findings. Hematology study stable. Renal function electrolyte levels normal. BNP 251. On arrival patient tachypneic 21 saturating 91% with ambulatory hypoxia at 81%. Pt to be admitted for acute COPD axacerbation. No fevers, chills, cough, orthopnea, PND, palpitations, chest pain. Review of Systems Review of Systems: General: No fevers, malaise, unintentional weight loss Cardiovascular: No chest pain, palpitations, or leg edema Respiratory: +alex. No orthopnea, wheezing, cough GI: No abdominal pain, nausea, vomiting, diarrhea, constipation, melena, hematochezia Neuro: No headaches, weakness, paresthesias Skin: No rashes or lesions [facility] Medical History Abnormal SPEP Ascending aorta dilatation Atrial fibrillation Bronchitis Chest discomfort COPD (chronic obstructive pulmonary disease) Coronary artery disease ALEX (dyspnea on exertion) Former smoker Ground glass opacity present on imaging of lung Hemoptysis Hypercholesterolemia Hypertension Impaired glucose tolerance Multinodular thyroid Obesity (BMI 30-39.9) Obesity (BMI 30-39.9) Postoperative hypothyroidism Psoriasis Pulmonary nodules/lesions, multiple Right renal stone Stable angina Swelling of left lower extremity Thyroid nodule Tubular adenoma of colon (~2021) Vitamin D deficiency Wedge compression fracture of T9 vertebra (~2018) Family History Father Heart disease Mother No problems noted. Paternal Grandfather Heart disease Surgical History History of appendectomy History of cardioversion (~2020) History of colonoscopy History of heart artery stent (~2019) History of lung biopsy (~2016) History of partial thyroidectomy (~2020) History of tonsillectomy Social History Household Members: Spouse Housing: House Do you presently have visiting nurse or other home services: No Alcohol intake: former Year quit: 2014 Patient Tobacco Use Status: Former Tobacco user Quit Date: 2014 Tobacco use type: Cigarette Years Smoked: 50 e-Cigarette/Vaping Use: Never Used Second Hand Smoke Exposure: No Advance Directives: Yes Advance Directives Information Provided: No Advance Directives on File: No Advance Directives Date on File: 09/21/20 service: Yes Current occupational status: retired Cognitive needs: No Hearing needs: No Vision needs: No Meds Allergies Allergy/AdvReac Type Severity Reaction Status Date / Time hydrochlorothiazide Allergy Severe Anaphylaxis Verified 01/25/22 10:46 lisinopril Allergy Severe Anaphylaxis Verified 01/25/22 10:46 Penicillins Allergy Severe Anaphylaxis Verified 01/25/22 10:46 Active Medications: Current Medications Pharmacy Consult (Consult Rx Perform Med Rec) 1 each MISCELLANE ONCE PRN PRN Reason: Consult order Home Medications Medication Instructions Recorded Confirmed Last Taken Type adalimumab 40 mg/0.8 mL 40 mg subcut Q2W 04/01/20 01/31/22 01/27/22 History subcutaneous syringe kit (Humira) Physical Exam Vital Signs and Narrative: Vital Signs: Last Vital Signs Temp 98.0 F 01/31/22 17:55 Pulse 94 01/31/22 20:26 Resp 21 H 01/31/22 20:26 BP 142/89 H 01/31/22 20:26 Pulse Ox 93 01/31/22 20:26 O2 Del Method 01/31/22 20:26 BMI result Body Mass Index 32.1 Constitutional - Awake and Alert, No apparent distress Eyes - PERRLA, EOMI Cardiovascular - S1S2, RRR, No edema Respiratory - Normal lung expansion, Normal respiratory effort, No respiratory distress, CTA bilaterally Gastrointestinal - NT / ND; +BS; No rebound or guarding Extremities - no calf tenderness bilaterally, no swelling Skin - Warm/Dry Neurological - Alert & oriented x3, No focal deficit Psychological - Appropriate affect Results Labs CBC and Chem 7: 01/31/22 18:04 01/31/22 18:04 Labs: Laboratory Results - last 24 hr 01/31/22 01/31/22 01/31/22 18:04 18:04 18:04 MCV 99.1 H MCH 33.1 H MCHC 33.4 RDW 13.8 Plt Count 185 MPV 9.4 Immature Gran % (Auto) 0.2 Neut % (Auto) 71.9 Lymph % (Auto) 12.1 L Grundy % (Auto) 13.6 H Eos % (Auto) 2.0 Baso % (Auto) 0.2 Lymph # (Auto) 0.7 L Grundy # (Auto) 0.8 Eos # (Auto) 0.1 Baso # (Auto) 0.0 Abs Immat Gran (auto) 0.01 Absolute Neuts (auto) 4.0 Absolute Nucleated RBC 0.000 Nucleated RBC % (auto) 0.0 D-Dimer High Sensitivty 165 Anion Gap 17 Estim Creat Clear Calc 68.4 Estimated GFR > 60 Random Glucose 115 Calcium 8.4 Troponin I High Sens B-Natriuretic Peptide Influenza Type A (PCR) Influenza Type B (PCR) RSV RNA Qual (PCR) SARS-CoV-2 RNA (RT-PCR) 01/31/22 01/31/22 18:04 18:04 MCV MCH MCHC RDW Plt Count MPV Immature Gran % (Auto) Neut % (Auto) Lymph % (Auto) Grundy % (Auto) Eos % (Auto) Baso % (Auto) Lymph # (Auto) Grundy # (Auto) Eos # (Auto) Baso # (Auto) Abs Immat Gran (auto) Absolute Neuts (auto) Absolute Nucleated RBC Nucleated RBC % (auto) D-Dimer High Sensitivty Anion Gap Estim Creat Clear Calc Estimated GFR Random Glucose Calcium Troponin I High Sens < 3.5 B-Natriuretic Peptide 231 H Influenza Type A (PCR) NEGATIVE Influenza Type B (PCR) NEGATIVE RSV RNA Qual (PCR) NEGATIVE SARS-CoV-2 RNA (RT-PCR) NEGATIVE Imaging Radiologist's Impressions: Impressions Chest X-Ray 01/31/22 18:25 IMPRESSION: No focal airspace consolidation. Assessment and Plan (1) Hypoxemia: Status: Acute (2) COPD (chronic obstructive pulmonary disease): Status: Acute (3) ALEX (dyspnea on exertion): Status: Acute Plan 76-year-old male with history of chronic atrial fibrillation anticoagulated with Eliquis, COPD, psoriasis on humira, hypertension, hypercholesterolemia, coronary artery disease s/p PCI, postoperative hypothyroidism, osteoporosis admitted for acute hypoxemia on exertion. acute hypoxemia secondary to recent COPD exacerbation - patient desaturating to 83% on ambulation. 91% oximetry on room air - BNP 251, no evidence of fluid overload. CXR normal. Not felt to be cardiac in etiology - recently treated with Levaquin, last dose today for COPD exacerbation. - Benefit of steroids at this time unclear. No active wheezing or productive cough. Pulmonology consulted - Consider HRCT as humira can cause ILD - PT/OT to evaluate -Needs outp pulm rehab - Continue home maintenance inhalers. ALbuterol prn chronic atrial fibrillation- rate controlled -Continue eliquis -Continue diltiazem and metoprolol Htn- controlled -Continue home meds cad s/p PCI /hld- no anginal chest pain -continue statin/bb/eliquis hypothyroidism -continue levothyroxine psoriasis -on humira which could cause ILD. Consider ILD and possibly alternative therapy DVT prophylaxis- on eliquis Full code Pt requires inpt stay of at least 2 midnights due to ambulatory hypoxemia of unclear etiology requiring further investigation. Quality Stroke Does the patient have a stroke diagnosis?: No VTE Prior VTE?: No VTE Risk Level:: Medical - moderate - high VTE Device Contraindication: Treatment Not Indicated VTE Drug Contraindication: N/A - Med Ordered
[2022-01-31] MEDS: methylPREDNISolone Sod Succ 125 MG/2 ML VIAL IVPUSH (21:13)
--- NOTE | 2022-01-31 21:30 | PHA.MEDREC ---
Pharmacy Consult ? Medication Reconciliation Pharmacy has completed the medication reconciliation.
[2022-01-31 21:33] VITALS: BP 138/94; PULSE 91; RESP 14; TEMP 37.2; O2SAT 93
[2022-01-31 21:52] VITALS: BP 122/75; PULSE 89; RESP 24; TEMP 36.4; O2SAT 90
[2022-01-31 22:23] VITALS: BP 137/76; PULSE 76; RESP 18; TEMP 37.1; O2SAT 93
[2022-01-31 23:14] VITALS: BP 120/83; PULSE 99; RESP 18; TEMP 37.3; O2SAT 93
[2022-02-01] VITALS (8 sets, daily range): BP systolic 106–133; BP diastolic 62–83; PULSE 68–155; RESP 14–20; TEMP 36.2–36.7; O2SAT 92–95
[2022-02-01] MEDS: 0.9 % Sodium Chloride Flush 3 ML SYRINGE IVFLUSH ×3 (01:44→19:58)
[2022-02-01] MEDS: Levothyroxine Sodium 25 MCG TABLET PO (06:16)
[2022-02-01 06:39] LABS: MANUAL DIFF FLAG NO
[2022-02-01 06:44] LABS: Eosinophils Percent Auto 0.3 % (0-4); Hematocrit 34.2 % (42.0-52.0); Hemoglobin 11.3 g/dl (14.0-18.0); Imm Gran Abs Auto 0.02 X10*3/uL (0.00-0.03); Imm Gran Pct Auto 0.6 % (0.0-0.4); Lymphocytes Absolute Auto 0.4 X10*3/uL (1.2-4.9); Lymphocytes Percent Auto 12.3 % (20-40); Mean Corpuscular Hemoglobin 33.4 pg (27.0-33.0); Mean Corpuscular Volume 101.2 fL (80.0-98.0); Mean Platelet Volume 10.1 fL (9.4-12.4); Monocytes Percent Auto 1.3 % (2-11); Neutrophils Absolute Auto 2.6 x10*3/uL (2.0-8.3); Neutrophils Percent Auto 85.5 % (45-73); Platelet Count 177 X10*3/uL (160-400); Red Blood Count 3.38 X10*6/uL (4.60-5.80); Red Cell Distribution Width 13.5 % (11.0-16.0); White Blood Count 3.1 X10*3/uL (4.8-10.8)
[2022-02-01 06:59] LABS: Anion Gap 16 (12-20); Blood Urea Nitrogen 21 mg/dL (9-16); Calcium 8.3 mg/dL (8.4-10.2); Carbon Dioxide 22 mmol/L (22-29); Chloride 105 mmol/L (96-108); Creatinine Clr Calc Pharmacy 89.2; Estimated Glomerular Filt Rate > 60; Glucose Random 173 mg/dL (60-115); Potassium 3.6 mmol/L (3.3-5.1); Sodium 139 mmol/L (135-145)
--- NOTE | 2022-02-01 07:00 | CA_ITS ---
Transthoracic Echocardiogram Patient (Last, First, Middle): Pablito Everett P Gender: Male Date of : 1945 Age: 76 Procedure Date: 02/01/2022 Procedure Type: Transthoracic Echocardiogram Location: [facility] [place] Height: 172.72 cm Weight: 95.71 kg BSA: 2.09 m2 Heart Rate: 88 bpm BP: 125 / 78 mmHg Modular Set Crew Member: EDWIN Referring MD: Consuelo Barrett MD Symptoms: dyspnea Study Quality: Adequate ECG Rhythm: Atrial Fibrillation Conclusions: - The left ventricular systolic function is normal. The visually estimated ejection fraction is between 55-60%. - There is mildly decreased right ventricular systolic function. - No obvious valvular pathology seen on this study. - There is mild dilatation of the ascending aorta measuring 4.40 cm. Findings Left Ventricle Normal left ventricular cavity size. There is mildly increased left ventricular wall thickness. The left ventricular systolic function is normal. The visually estimated ejection fraction is between 55-60%. There is no evidence of regional wall motion abnormalities. Diastolic function is indeterminate on the basis of available data. Right Ventricle Normal right ventricular cavity size. There is mildly decreased right ventricular systolic function. Atria The left atrium is mildly dilated. The right atrium is normal in size. Aortic Valve There is a normal trileaflet aortic valve. There is mild calcification of the aortic valve. There is no aortic valve stenosis. There is no aortic valve regurgitation. Mitral Valve The mitral valve appears normal. There is no mitral valve regurgitation. There is no mitral valve stenosis. Pulmonic Valve The pulmonic valve is likely normal. Tricuspid Valve There is trace tricuspid valve regurgitation. There is no evidence of pulmonary hypertension. Great Vessels There is mild dilatation of the ascending aorta measuring 4.40 cm. Venous The inferior vena cava is normal in size and collapses greater than 50% with inspiration. Pericardium/Pleural There is no evidence of pericardial effusion. Prior Study Comparison Changes noted compared to prior study dated: 09/27/2020. See comment on ascending aorta. Recommendations, Care & Conclusions No obvious valvular pathology seen on this study. Measurements 2D Linear Measurements IVSd: 1.24 0.6-0.9/0.6-1.0 cm LVIDd: 4.37 3.9-5.3/4.2-5.9 cm LVIDd Index: 2.09 2.4-3.2/2.2-3.1 cm/m2 LVIDs: 2.82 2.0-3.6 cm LVPWd: 1.09 0.7-1.1 cm LA Diam: 4.80 2.7-3.8/3.0-4.0 cm LAIDs Index: 2.30 1.5-2.3 cm/m2 LV Mass: 226.00 67-162/88-224 g LV Mass Index: 108.13 43-95/49-115 g/m2 LVOT Diam: 2.30 3.0+(-)1.3 cm 2D Systolic Function EF 4C: 52.40 >55% EF 2C: 53.90 >55% EF BiP: 53.40 >55% Mitral Valve MV Pk E: 1.09 MV PK A: 0.47 MV Decel Time: 231.00 E/A: 2.30 E'Lateral: 11.50 E'Medial: 8.81 E/E' Med: 12.40 E/E' Lat: 9.50 PHT: 68.00 MVA PHT: 3.24 Decel Emery: 4.72 Aortic Valve AoV Pk Chato: 1.32 AoV Mn Chato: 0.94 AoV VTI: 0.25 AoV Pk Grad: 7.00 Aov Mn Grad: 4.00 RAYMOND Cont.VTI: 2.91 LVOT LVOT Pk Chato: 0.87 LVOT Mn Chato: 0.63 LVOT VTI: 0.17 LVOT Pk Grad: 3.00 LVOT Mn Grad: 2.00 LVOT Diam: 2.30 LVOT Area: 4.15 Diastolic Function MV Pk E: 1.09 MV Pk A: 0.47 E/A: 2.30 E'Medial: 8.81 E/E' Med: 12.40 E' Laterial: 11.50 E/E' Lat: 9.50 Right Ventricle TAPSE (mm): 15.80 TVS' Chato: 11.00 Tricuspid Valve TR Pk Chato: 2.14 TR Pk Grad: 18.00 RA Press: 3.00 RVSP: 21.00 Great Vessels Aorta Sinus of Valsalva: 3.80 2.0-3.5 cm Ao Asc: 4.40 2.1-3.4 cm Pulmonary Valve PV Pk Chato: 0.99 Peak PV Grad: 4.00 Updated in Other Vendor System with Status of Final Zhang Pugh MD electronically signed on 02/01/2022 3:13:02 PM with status of Final
[2022-02-01] MEDS: Metoprolol Tartrate 5 MG/5 ML VIAL 2.5 MG IVPUSH (08:38)
[2022-02-01] MEDS: Cyanocobalamin (Vitamin B-12) 1,000 MCG TABLET 1000 MCG PO (08:39)
[2022-02-01] MEDS: Cholecalciferol (Vitamin D3) 25 MCG TABLET 50 MCG PO (08:39)
[2022-02-01] MEDS: Metoprolol Tartrate 50 MG TABLET PO ×2 (08:40→19:57)
[2022-02-01] MEDS: Apixaban 5 MG TABLET PO ×2 (08:40→19:58)
[2022-02-01] MEDS: Clopidogrel Bisulfate 75 MG TABLET PO (08:40)
[2022-02-01] MEDS: dilTIAZem HCL CD 300 MG CAP.ER.24H PO (09:55)
--- NOTE | 2022-02-01 10:03 | P.CONCA_ITS ---
History of Present Illness History of Present Illness Date of Service: 02/01/22 Chief complaint: Dyspnea Narrative: This is a cardiology consultation regarding atrial fibrillation rapid rate. He is generally seen by Dr. Jean-Baptiste in the office. He has a history of chronic atrial fibrillation. It seems that he has been attempted cardioversion but did not succeed and he has been left in persistent/permanent atrial fibrillation. Generally controlled with rate control medications. At home, listed to be on diltiazem as well as metoprolol. Current admission is because of shortness of breath. He states that he has been feeling short of breath for the last 2-3 weeks time. Then he call the cardiology office and then it seems that his dice person asked him to go to the ER. His main complaint is that his breathing is not at his baseline. No other complaints like angina or palpit ations or leg swelling or in fact anything else. He is also start to have COPD and hence not clear if his symptoms are rather from that. Review of Systems Review of Systems: Yes all other systems are reviewed and are negative Constitutional: Constitutional: Reports as per HPI Eyes: Eyes: Reports as per HPI ENT: Reports as per HPI Cardiovascular: Cardiovascular: Reports as per HPI, Denies acrocyanosis, Denies cool extremities, Denies chest pain, Denies leg edema, Denies lightheadedness, Denies palpitations and Reports dyspnea Respiratory: Respiratory: Reports as per HPI, Reports no additional respiratory complaints and Reports dyspnea Gastrointestinal: Gastrointestinal: Reports as per HPI and Reports no additio nal gastrointestinal complaints Genitourinary: Genitourinary: Reports no additional male genitourinary complaints and Reports as per HPI Musculoskeletal: Musculoskeletal: Reports no additional musculoskeletal complaints and Reports as per HPI Integumentary/Breasts: Skin/Breast: Reports system reviewed and no additional complaints, except as docu Neurologic: Reports system reviewed and no additional complaints, except as documented and Reports as per HPI Psychiatric: Psychiatric: Reports no additional psychiatric complaints and Reports as per HPI Endocrine: Endocrine: Reports no additional endocrine complaints, Reports as per HPI and Denies palpitations Hematologic/Lymphatic: Hematologic/Lymphatic: Reports no additional hematologic/lymphatic complaints and Reports as per HPI Allergic/Immunologic: Allergic/Immunologic: Reports no additional allergic/immunologic complaints and Reports as per HPI [facility] Past Medical History Medical History Abnormal SPEP Ascending aorta dilatation Atrial fibrillation Bronchitis Chest discomfort COPD (chronic obstructive pulmonary disease) Coronary artery disease HOLLOWAY (dyspnea on exertion) Former smoker Ground glass opacity present on imaging of lung Hemoptysis Hypercholesterolemia Hypertension Impaired glucose tolerance Multinodular thyroid Obesity (BMI 30-39.9) Obesity (BMI 30-39.9) Postoperative hypothyroidism Psoriasis Pulmonary nodules/lesions, multiple Right renal stone Stable angina Swelling of left lower extremity Thyroid nodule Tubular adenoma of colon (~2021) Vitamin D deficiency Wedge compression fracture of T9 vertebra (~2018) Family History Family History Father Heart disease Mother No problems noted. Paternal Grandfather Heart disease Surgical History Surgical History History of appendectomy History of cardioversion (~2020) History of colonoscopy History of heart artery stent (~2019) History of lung biopsy (~2016) History of partial thyroidectomy (~2020) History of tonsillectomy Social History Social History Household Members: Spouse Housing: House Do you presently have visiting nurse or other home services: No Alcohol intake: former Year quit: 2014 Patient Tobacco Use Status: Former Tobacco user Quit Date: 2014 Tobacco use type: Cigarette Years Smoked: 50 e-Cigarette/Vaping Use: Never Used Second Hand Smoke Exposure: No Advance Directives Date on File: 09/21/20 service: Yes Current occupational status: retired Cognitive needs: No Hearing needs: No Vision needs: No Meds Allergies Allergy/AdvReac Type Severity Reaction Status Date / Time hydrochlorothiazide Allergy Severe Anaphylaxis Verified 01/25/22 10:46 lisinopril Allergy Severe Anaphylaxis Verified 01/25/22 10:46 Penicillins Allergy Severe Anaphylaxis Verified 01/25/22 10:46 Active Medications: Current Medications Acetaminophen (Acetaminophen 325 Mg Tablet) 650 mg PO Q6H PRN PRN Reason: Pain, Mild (Pain Scale 1-3) Apixaban (Apixaban 5 Mg Tablet) 5 mg PO BID FILE[facility] Last Admin: 02/01/22 08:40 Dose: 5 mg Atorvastatin Calcium (Atorvastatin Calcium 80 Mg Tablet) 80 mg PO BEDTIME [facility] Benzonatate (Benzonatate 100 Mg Capsule) 100 mg PO TID PRN PRN Reason: Cough Clopidogrel Bisulfate (Clopidogrel Bisulfate 75 Mg Tablet) 75 mg PO DAILY [facility] Last Admin: 02/01/22 08:40 Dose: 75 mg Cyanocobalamin (Cyanocobalamin (Vitamin B-12) 1,000 Mcg Tablet) 1,000 mcg PO DAILY [facility] Last Admin: 02/01/22 08:39 Dose: 1,000 mcg Diltiazem HCl (Diltiazem Hcl Cd 300 Mg Cap.Er.24h) 300 mg PO DAILY [facility]; Protocol Last Admin: 02/01/22 09:55 Dose: 300 mg Levothyroxine Sodium (Levothyroxine Sodium 25 Mcg Tablet) 25 mcg PO DAILY@0600 [facility] Last Admin: 02/01/22 06:16 Dose: 25 mcg Metoprolol Tartrate (Metoprolol Tartrate 50 Mg Tablet) 50 mg PO BID [facility]; Protocol Last Admin: 02/01/22 08:40 Dose: 50 mg Non-Formulary Medication (Ugnpjymviv-Vemvfurq-Pwlyibijyw [Breztri Aerosphere]) 2 inhalation INHALE BID [facility] Sodium Chloride (0.9 % Sodium Chloride Flush 3 Ml Syringe) 3 ml IVFLUSH QSHIFT [facility] Last Admin: 02/01/22 08:41 Dose: 3 ml Vitamin D (Cholecalciferol (Vitamin D3) 25 Mcg Tablet) 50 mcg PO DAILY [facility] Last Admin: 02/01/22 08:39 Dose: 50 mcg Home Medications Medication Instructions Recorded Confirmed Last Taken Type adalimumab 40 mg/0.8 mL 40 mg subcut Q2W 04/01/20 01/31/22 01/27/22 History subcutaneous syringe kit ([place]) Physical Exam Vital Signs: Vital Signs: Last Vital Signs Temp 97.5 F 02/01/22 07:38 Pulse 101 H 02/01/22 09:42 Resp 20 02/01/22 07:38 BP 111/76 02/01/22 08:31 Pulse Ox 95 02/01/22 08:31 O2 Del Method 02/01/22 07:38 O2 Flow Rate 2 02/01/22 07:38 BMI result Body Mass Index 32.1 Const: General: comfortable and no acute distress Orientation/consciousness: patient oriented x3 HEENT: Other: Unremarkable Head: Yes normal to inspection Neck: Neck: Yes normal visual inspection Chest: Chest palpation & inspection: normal inspection of the chest Resp: Auscultation: clear to auscultation bilaterally Cardio: Palpation: normal PMI Heart sounds: S1 normal heart sound present, S2 normal heart sound present, no gallops, no murmurs and no rubs GI: Palpation (GI): Soft to palpation Back/Spine/Pelvis: Other: unremarkable Skin: General skin exam: no rashes or lesions noted Neuro: General: patient oriented x3 Extrem: General: Yes normal to inspection Psych: Mental Status: mental status grossly normal Objective Labs and Meds Result diagrams: 02/01/22 06:15 02/01/22 06:15 Lab results: Laboratory Results - last 24 hr 01/31/22 01/31/22 01/31/22 18:04 18:04 18:04 WBC 5.5 RBC 3.41 L Hgb 11.3 L Hct 33.8 L MCV 99.1 H MCH 33.1 H MCHC 33.4 RDW 13.8 Plt Count 185 MPV 9.4 Immature Gran % (Auto) 0.2 Neut % (Auto) 71.9 Lymph % (Auto) 12.1 L [place] % (Auto) 13.6 H Eos % (Auto) 2.0 Baso % (Auto) 0.2 Lymph # (Auto) 0.7 L [place] # (Auto) 0.8 Eos # (Auto) 0.1 Baso # (Auto) 0.0 Abs Immat Gran (auto) 0.01 Absolute Neuts (auto) 4.0 Absolute Nucleated RBC 0.000 Nucleated RBC % (auto) 0.0 D-Dimer High Sensitivty 165 Sodium 138 Potassium 3.7 Chloride 105 Carbon Dioxide 20 L Anion Gap 17 BUN 28 H Creatinine 1.03 Estim Creat Clear Calc 68.4 Estimated GFR > 60 Random Glucose 115 Calcium 8.4 Troponin I High Sens B-Natriuretic Peptide Influenza Type A (PCR) Influenza Type B (PCR) RSV RNA Qual (PCR) SARS-CoV-2 RNA (RT-PCR) 01/31/22 01/31/22 02/01/22 18:04 18:04 06:15 WBC 3.1 L RBC 3.38 L Hgb 11.3 L Hct 34.2 L MCV 101.2 H MCH 33.4 H MCHC 33.0 RDW 13.5 Plt Count 177 MPV 10.1 Immature Gran % (Auto) 0.6 H Neut % (Auto) 85.5 H Lymph % (Auto) 12.3 L [place] % (Auto) 1.3 L Eos % (Auto) 0.3 Baso % (Auto) 0.0 Lymph # (Auto) 0.4 L [place] # (Auto) 0.0 L Eos # (Auto) 0.0 Baso # (Auto) 0.0 Abs Immat Gran (auto) 0.02 Absolute Neuts (auto) 2.6 Absolute Nucleated RBC 0.000 Nucleated RBC % (auto) 0.0 D-Dimer High Sensitivty Sodium Potassium Chloride Carbon Dioxide Anion Gap BUN Creatinine Estim Creat Clear Calc Estimated GFR Random Glucose Calcium Troponin I High Sens < 3.5 B-Natriuretic Peptide 231 H Influenza Type A (PCR) NEGATIVE Influenza Type B (PCR) NEGATIVE RSV RNA Qual (PCR) NEGATIVE SARS-CoV-2 RNA (RT-PCR) NEGATIVE 02/01/22 06:15 WBC RBC Hgb Hct MCV MCH MCHC RDW Plt Count MPV Immature Gran % (Auto) Neut % (Auto) Lymph % (Auto) [place] % (Auto) Eos % (Auto) Baso % (Auto) Lymph # (Auto) [place] # (Auto) Eos # (Auto) Baso # (Auto) Abs Immat Gran (auto) Absolute Neuts (auto) Absolute Nucleated RBC Nucleated RBC % (auto) D-Dimer High Sensitivty Sodium 139 Potassium 3.6 Chloride 105 Carbon Dioxide 22 Anion Gap 16 BUN 21 H Creatinine 0.79 Estim Creat Clear Calc 89.2 Estimated GFR > 60 Random Glucose 173 H D Calcium 8.3 L Troponin I High Sens B-Natriuretic Peptide Influenza Type A (PCR) Influenza Type B (PCR) RSV RNA Qual (PCR) SARS-CoV-2 RNA (RT-PCR) ECG Interpretation: EKG with atrial fibrillation at 91/Min. However on telemetry he is in the 120s to 130s. Imaging Radiologist's impression: Impressions Chest X-Ray 01/31/22 18:25 IMPRESSION: No focal airspace consolidation. Assessment and Plan (1) Atrial fibrillation with rapid ventricular response: Status: Acute (2) COPD exacerbation: Status: Acute Plan Unremarkable troponins. Cardiac BNP slightly on the higher side at 231. However this is more or less his baseline. Last echocardiogram was a limited study and that shows LVEF of 55-60%. In previous echocardiograms, there was aortic valve calcification without any significant stenosis or dysfunction. Left atrium noted to be severely dilated. Overall, shortness of breath probably from COPD. Atrial fibrillation with rapid rate could be rather compensated response. Doubt this be the primary reason for shortness of breath. Any case, he has already been cardioverted in the past and did not last he also has severely enlarged atria and hence no recent cardiovert again. Currently maintained on diltiazem/metoprolol at home. We can add digoxin including load. Continue with anticoagulation. Discussed with Nicky Rasmussen. Procedures Date of Service Date of Service: 02/01/22
--- NOTE | 2022-02-01 10:27 | HO.PM.IMPN ---
Subjective Subjective Date of Service: 02/01/22 Interval History: seen and examined this morning follow up for dyspnea HR noted to be elevated this am, placed on monitor and HR in 150s. patient denies palpitations, reports some mild dizziness earlier but has since resolved. No chest pain, no shortness of breath at rest Patient admitted due to hypoxia with ambulation reports 3 weeks of dyspnea on exertion, some cough this am, but previously no cough; recent outpatient treatment with levaquin Review of Systems Review of Systems: Yes all other systems are reviewed and are negative Constitutional Constitutional: Denies chills and Denies fever(s) Cardiovascular Cardiovascular: Denies chest pain, Denies palpitations and Reports dyspnea on exertion Respiratory Respiratory: Reports cough and Reports dyspnea on exertion Gastrointestinal Gastrointestinal: Denies abdominal pain, Denies nausea and Denies vomiting Endocrine Endocrine: Denies palpitations Physical Exam Vital Signs: Vital Signs: Last Vital Signs Temp 97.5 F 02/01/22 07:38 Pulse 101 H 02/01/22 09:42 Resp 20 02/01/22 07:38 BP 111/76 02/01/22 08:31 Pulse Ox 95 02/01/22 08:31 O2 Del Method 02/01/22 07:38 O2 Flow Rate 2 02/01/22 07:38 BMI result Body Mass Index 32.1 Const: General: cooperative, comfortable, no acute distress, alert and awake Nutritional Appearance: overweight Orientation/consciousness: patient oriented x3 Resp: Effort & Inspection: normal respiratory effort and able to speak in complete sentences Auscultation: no wheezes Cardio: Other: irregular Rate: tachycardic Heart sounds: no murmurs GI: Inspection: No distended Palpation (GI): Soft to palpation and nontender Neuro: General: patient oriented x3 and CN's II-XI intact bilaterally Extrem: General: Yes no pedal edema Objective Data Active Medications Acetaminophen (Acetaminophen 325 Mg Tablet) 650 mg PO Q6H PRN PRN Reason: Pain, Mild (Pain Scale 1-3) Apixaban (Apixaban 5 Mg Tablet) 5 mg PO BID [facility] Last Admin: 02/01/22 08:40 Dose: 5 mg Documented By: DOBROB Atorvastatin Calcium (Atorvastatin Calcium 80 Mg Tablet) 80 mg PO BEDTIME [facility] Benzonatate (Benzonatate 100 Mg Capsule) 100 mg PO TID PRN PRN Reason: Cough Clopidogrel Bisulfate (Clopidogrel Bisulfate 75 Mg Tablet) 75 mg PO DAILY [facility] Last Admin: 02/01/22 08:40 Dose: 75 mg Documented By: JONNY Cyanocobalamin (Cyanocobalamin (Vitamin B-12) 1,000 Mcg Tablet) 1,000 mcg PO DAILY [facility] Last Admin: 02/01/22 08:39 Dose: 1,000 mcg Documented By: JONNY Digoxin (Digoxin 0.5 Mg/2 Ml Ampul) 0.25 mg IVPUSH Q6H [facility] Stop: 02/01/22 16:31 Diltiazem HCl (Diltiazem Hcl Cd 300 Mg Cap.Er.24h) 300 mg PO DAILY [facility]; Protocol Last Admin: 02/01/22 09:55 Dose: 300 mg Documented By: JONNY Levothyroxine Sodium (Levothyroxine Sodium 25 Mcg Tablet) 25 mcg PO DAILY@0600 [facility] Last Admin: 02/01/22 06:16 Dose: 25 mcg Documented By: WILLIAM Metoprolol Tartrate (Metoprolol Tartrate 50 Mg Tablet) 50 mg PO BID [facility]; Protocol Last Admin: 02/01/22 08:40 Dose: 50 mg Documented By: JONNY Non-Formulary Medication (Jzixuoypew-Gebduqly-Lfakwjrdcy [Breztri Aerosphere]) 2 inhalation INHALE BID [facility] Sodium Chloride (0.9 % Sodium Chloride Flush 3 Ml Syringe) 3 ml IVFLUSH QSHIFT [facility] Last Admin: 02/01/22 08:41 Dose: 3 ml Documented By: JONNY Vitamin D (Cholecalciferol (Vitamin D3) 25 Mcg Tablet) 50 mcg PO DAILY [facility] Last Admin: 02/01/22 08:39 Dose: 50 mcg Documented By: JONNY Labs CBC & Chem 7: 02/01/22 06:15 02/01/22 06:15 Labs: Laboratory Results - last 24 hr 01/31/22 01/31/22 01/31/22 18:04 18:04 18:04 MCV 99.1 H MCH 33.1 H MCHC 33.4 RDW 13.8 Plt Count 185 MPV 9.4 Immature Gran % (Auto) 0.2 Neut % (Auto) 71.9 Lymph % (Auto) 12.1 L [place] % (Auto) 13.6 H Eos % (Auto) 2.0 Baso % (Auto) 0.2 Lymph # (Auto) 0.7 L [place] # (Auto) 0.8 Eos # (Auto) 0.1 Baso # (Auto) 0.0 Abs Immat Gran (auto) 0.01 Absolute Neuts (auto) 4.0 Absolute Nucleated RBC 0.000 Nucleated RBC % (auto) 0.0 D-Dimer High Sensitivty 165 Anion Gap 17 Estim Creat Clear Calc 68.4 Estimated GFR > 60 Random Glucose 115 Calcium 8.4 Troponin I High Sens B-Natriuretic Peptide Influenza Type A (PCR) Influenza Type B (PCR) RSV RNA Qual (PCR) SARS-CoV-2 RNA (RT-PCR) 01/31/22 01/31/22 02/01/22 18:04 18:04 06:15 MCV 101.2 H MCH 33.4 H MCHC 33.0 RDW 13.5 Plt Count 177 MPV 10.1 Immature Gran % (Auto) 0.6 H Neut % (Auto) 85.5 H Lymph % (Auto) 12.3 L [place] % (Auto) 1.3 L Eos % (Auto) 0.3 Baso % (Auto) 0.0 Lymph # (Auto) 0.4 L [place] # (Auto) 0.0 L Eos # (Auto) 0.0 Baso # (Auto) 0.0 Abs Immat Gran (auto) 0.02 Absolute Neuts (auto) 2.6 Absolute Nucleated RBC 0.000 Nucleated RBC % (auto) 0.0 D-Dimer High Sensitivty Anion Gap Estim Creat Clear Calc Estimated GFR Random Glucose Calcium Troponin I High Sens < 3.5 B-Natriuretic Peptide 231 H Influenza Type A (PCR) NEGATIVE Influenza Type B (PCR) NEGATIVE RSV RNA Qual (PCR) NEGATIVE SARS-CoV-2 RNA (RT-PCR) NEGATIVE 02/01/22 06:15 MCV MCH MCHC RDW Plt Count MPV Immature Gran % (Auto) Neut % (Auto) Lymph % (Auto) Long % (Auto) Eos % (Auto) Baso % (Auto) Lymph # (Auto) Long # (Auto) Eos # (Auto) Baso # (Auto) Abs Immat Gran (auto) Absolute Neuts (auto) Absolute Nucleated RBC Nucleated RBC % (auto) D-Dimer High Sensitivty Anion Gap 16 Estim Creat Clear Calc 89.2 Estimated GFR > 60 Random Glucose 173 H D Calcium 8.3 L Troponin I High Sens B-Natriuretic Peptide Influenza Type A (PCR) Influenza Type B (PCR) RSV RNA Qual (PCR) SARS-CoV-2 RNA (RT-PCR) Assessment and Plan (1) Atrial fibrillation with rapid ventricular response: Status: Acute (2) HOLLOWAY (dyspnea on exertion): Status: Acute Plan 76-year-old male with history of chronic atrial fibrillation anticoagulated with Eliquis, COPD, psoriasis on humira, hypertension, hypercholesterolemia, coronary artery disease s/p PCI, postoperative hypothyroidism, osteoporosis admitted for acute hypoxemia on exertion. Dyspnea on exertion hypoxia with ambulation only BNP 251, no evidence of fluid overload. CXR normal recently treated with Levaquin for COPD exacerbation, no wheezing on exam - Needs outp pulm rehab - Continue home maintenance inhaler - Pulm consult pending - echo pending Afib with RVR HR up to 150s this am given one dose of IV lopressor with good effect seen by cardiology - will load with digoxin -Continue eliquis -Continue diltiazem and metoprolol HTN- BP controlled -Continue diltiazem, metoprolol cad s/p PCI - no chest pain -continue plavix, statin, bb, eliquis hypothyroidism -continue levothyroxine -check TSH psoriasis -on humira which could cause ILD DVT prophylaxis- on eliquis Full code Requires ongoing inpatient hospitalization for work up secondary to ambulatory hypoxemia, afib RVR Quality Stroke Does the patient have a stroke diagnosis?: No VTE Prior VTE?: No VTE Risk Level:: Medical - moderate - high VTE Device Contraindication: Treatment Not Indicated VTE Drug Contraindication: N/A - Med Ordered
[2022-02-01 11:08] LABS: Erythrocyte Sedimentation Rate 51 MM/HR (0-15)
[2022-02-01 11:45] LABS: TSH reflex Free T4 0.57 uIU/mL (0.32-4.0)
--- NOTE | 2022-02-01 12:01 | MHC.CM.PN ---
IMM DELIVERED CM MET WITH PT, LIVES IN SINGLE FAMILY HOME WITH . NO DME OR SERVICES CURRENTLY. DOES NOT KNOW IF HAS HCP AT HOME, NEW ONE DONE AND PLACED ON CHART. COVID VAX X [email or web address] RIDER AT [facility] [place]. [facility] [place]SP[place] [facility], NO SERVICES.
[2022-02-01] MEDS: Digoxin 0.5 MG/2 ML AMPUL 0.25 MG IVPUSH ×3 (12:03→18:32)
--- NOTE | 2022-02-01 12:03 | PM.CNPUL ---
History of Present Illness History of Present Illness Consult date: 02/01/22 Chief complaint: Dyspnea Narrative: This is an inpatient pulmonary consultation. The patient is a 76-year-old male with history of chronic atrial fibrillation anticoagulated with Eliquis, COPD, hypertension, hypercholesterolemia, coronary artery disease s/p PCI,? postoperative hypothyroidism, osteoporosis presents to the ED today for evaluation of shortness of breath ongoing for 2-3 weeks.? He recently evaluated by his machine cloth examiner and type photography supervisor and prescribed Levaquin for 1 week completed today for COPD exacerbation. Pt called machine cloth examiner due to ongoing alex and was advised to present to the ed. No history CHF.? Chest x-ray without acute findings.? Hematology study stable.? Renal function electrolyte levels normal. BNP 251. On arrival patient tachypneic 21 saturating 91% with ambulatory hypoxia at 81%. Pt to be admitted for acute COPD exacerbation. No fevers, chills, cough, orthopnea, PND, palpitations, chest pain. I did review his previous CT chest demonstrating areas of interstitial disease. His CXR again demonstrated parenchymal disease. Also to note his HR had been elevated this am. Review of Systems Review of Systems: Yes all other systems are reviewed and are negative Constitutional: Constitutional: Reports as per HPI Eyes: Eyes: Reports as per HPI ENT: Reports as per HPI Cardiovascular: Cardiovascular: Reports as per HPI, Denies acrocyanosis, Denies cool extremities, Denies chest pain, Denies leg edema, Denies lightheadedness, Denies palpitations and Reports dyspnea Respiratory: Respiratory: Reports as per HPI, Reports no additional respiratory complaints and Reports dyspnea Gastrointestinal: Gastrointestinal: Reports as per HPI and Reports no additional gastrointestinal complaints Genitourinary: Genitourinary: Reports no additional male genitourinary complaints and Reports as per HPI Musculoskeletal: Musculoskeletal: Reports no additional musculoskeletal complaints and Reports as per HPI Integumentary/Breasts: Skin/Breast: Reports system reviewed and no additional complaints, except as docu Neurologic: Reports system reviewed and no additional complaints, except as documented and Reports as per HPI Psychiatric: Psychiatric: Reports no additional psychiatric complaints and Reports as per HPI Endocrine: Endocrine: Reports no additional endocrine complaints, Reports as per HPI and Denies palpitations Hematologic/Lymphatic: Hematologic/Lymphatic: Reports no additional hematologic/lymphatic complaints and Reports as per HPI Allergic/Immunologic: Allergic/Immunologic: Reports no additional allergic/immunologic complaints and Reports as per HPI [facility] Past Medical History Medical History (Updated 02/01/22 @ 12:10 by Benny Wise MD) Abnormal SPEP Ascending aorta dilatation Atrial fibrillation Bronchitis Chest discomfort COPD (chronic obstructive pulmonary disease) Coronary artery disease ALEX (dyspnea on exertion) Former smoker Ground glass opacity present on imaging of lung Hemoptysis Hypercholesterolemia Hypertension ILD (interstitial lung disease) Impaired glucose tolerance Multinodular thyroid Obesity (BMI 30-39.9) Obesity (BMI 30-39.9) Postoperative hypothyroidism Psoriasis Pulmonary nodules/lesions, multiple Right renal stone Stable angina Swelling of left lower extremity Thyroid nodule Tubular adenoma of colon (~2021) Vitamin D deficiency Wedge compression fracture of T9 vertebra (~2018) Family History Family History Father Heart disease Mother No problems noted. Paternal Grandfather Heart disease Surgical History Surgical History History of appendectomy History of cardioversion (~2020) History of colonoscopy History of heart artery stent (~2019) History of lung biopsy (~2016) History of partial thyroidectomy (~2020) History of tonsillectomy Social History Social History Household Members: Spouse Housing: House Do you presently have visiting nurse or other home services: No Alcohol intake: former Year quit: 2014 Patient Tobacco Use Status: Former Tobacco user Quit Date: 2014 Tobacco use type: Cigarette Years Smoked: 50 e-Cigarette/Vaping Use: Never Used Second Hand Smoke Exposure: No Advance Directives Date on File: 09/21/20 service: Yes Current occupational status: retired Cognitive needs: No Hearing needs: No Vision needs: No Meds Allergies Allergy/AdvReac Type Severity Reaction Status Date / Time hydrochlorothiazide Allergy Severe Anaphylaxis Verified 01/25/22 10:46 lisinopril Allergy Severe Anaphylaxis Verified 01/25/22 10:46 Penicillins Allergy Severe Anaphylaxis Verified 01/25/22 10:46 Active Medications: Current Medications Acetaminophen (Acetaminophen 325 Mg Tablet) 650 mg PO Q6H PRN PRN Reason: Pain, Mild (Pain Scale 1-3) Apixaban (Apixaban 5 Mg Tablet) 5 mg PO BID FILEMON Last Admin: 02/01/22 08:40 Dose: 5 mg Atorvastatin Calcium (Atorvastatin Calcium 80 Mg Tablet) 80 mg PO BEDTIME [facility] Benzonatate (Benzonatate 100 Mg Capsule) 100 mg PO TID PRN PRN Reason: Cough Clopidogrel Bisulfate (Clopidogrel Bisulfate 75 Mg Tablet) 75 mg PO DAILY [facility] Last Admin: 02/01/22 08:40 Dose: 75 mg Cyanocobalamin (Cyanocobalamin (Vitamin B-12) 1,000 Mcg Tablet) 1,000 mcg PO DAILY [facility] Last Admin: 02/01/22 08:39 Dose: 1,000 mcg Digoxin (Digoxin 0.5 Mg/2 Ml Ampul) 0.25 mg IVPUSH Q6H [facility] Stop: 02/01/22 16:31 Diltiazem HCl (Diltiazem Hcl Cd 300 Mg Cap.Er.24h) 300 mg PO DAILY [facility]; Protocol Last Admin: 02/01/22 09:55 Dose: 300 mg Levothyroxine Sodium (Levothyroxine Sodium 25 Mcg Tablet) 25 mcg PO DAILY@0600 [facility] Last Admin: 02/01/22 06:16 Dose: 25 mcg Metoprolol Tartrate (Metoprolol Tartrate 50 Mg Tablet) 50 mg PO BID [facility]; Protocol Last Admin: 02/01/22 08:40 Dose: 50 mg Non-Formulary Medication (Epsyznvejm-Jfayvlez-Dlptbssomp [Breztri Aerosphere]) 2 inhalation INHALE BID [facility] Sodium Chloride (0.9 % Sodium Chloride Flush 3 Ml Syringe) 3 ml IVFLUSH QSHIFT [facility] Last Admin: 02/01/22 08:41 Dose: 3 ml Vitamin D (Cholecalciferol (Vitamin D3) 25 Mcg Tablet) 50 mcg PO DAILY [facility] Last Admin: 02/01/22 08:39 Dose: 50 mcg Home Medications Medication Instructions Recorded Confirmed Last Taken Type adalimumab 40 mg/0.8 mL 40 mg subcut Q2W 04/01/20 01/31/22 01/27/22 History subcutaneous syringe kit (Humira) Physical Exam Vital Signs: Vital Signs: Last Vital Signs Temp 97.1 F 02/01/22 11:09 Pulse 92 02/01/22 11:09 Resp 20 02/01/22 11:09 BP 113/83 02/01/22 11:09 Pulse Ox 95 02/01/22 11:09 O2 Del Method 02/01/22 11:09 O2 Flow Rate 2 02/01/22 11:09 BMI result Body Mass Index 32.1 Const: General: cooperative, comfortable, no acute distress, alert and awake Nutritional Appearance: overweight Orientation/consciousness: patient oriented x3 Resp: Effort & Inspection: normal respiratory effort and able to speak in complete sentences Auscultation: no wheezes and diminished lung sounds Cardio: Other: irregular Rate: tachycardic Heart sounds: no murmurs GI: Inspection: No distended Palpation (GI): Soft to palpation and nontender Neuro: General: patient oriented x3 and CN's II-XI intact bilaterally Extrem: General: Yes no pedal edema Results Laboratory Findings CBC and BMP: 02/01/22 06:15 02/01/22 06:15 Abnormal lab findings: Abnormal Labs 01/31/22 01/31/22 01/31/22 18:04 18:04 18:04 WBC RBC 3.41 L Hgb 11.3 L Hct 33.8 L MCV 99.1 H MCH 33.1 H Immature Gran % (Auto) Neut % (Auto) Lymph % (Auto) 12.1 L Atkinson % (Auto) 13.6 H Lymph # (Auto) 0.7 L Atkinson # (Auto) ESR Carbon Dioxide 20 L BUN 28 H Random Glucose Calcium B-Natriuretic Peptide 231 H 02/01/22 02/01/22 02/01/22 06:15 06:15 10:05 WBC 3.1 L RBC 3.38 L Hgb 11.3 L Hct 34.2 L MCV 101.2 H MCH 33.4 H Immature Gran % (Auto) 0.6 H Neut % (Auto) 85.5 H Lymph % (Auto) 12.3 L Atkinson % (Auto) 1.3 L Lymph # (Auto) 0.4 L Atkinson # (Auto) 0.0 L ESR 51 H Carbon Dioxide BUN 21 H Random Glucose 173 H D Calcium 8.3 L B-Natriuretic Peptide Assessment and Plan (1) Acute respiratory failure: Status: Acute (2) COPD (chronic obstructive pulmonary disease): Qualifiers: COPD type: emphysema Emphysema type: unspecified Qualified Code(s): J43.9 - Emphysema, unspecified Status: Acute (3) ILD (interstitial lung disease): Status: Acute (4) Atrial fibrillation with rapid ventricular response: Status: Acute Plan repeat CT chest to assess ILD ?progression. If he has progression secondary causes need to be considered, ie: psoriasis, biologics medications continue respiratory therapy with nebs, ok to hold the Breztri Blooodwork pending Conitnue oxygen, will likely need oxygen with activity when discharged. We will reassess closer to discharge Procedures Date of Service Date of Service: 02/01/22
[2022-02-01] MEDS: Atorvastatin Calcium 80 MG TABLET PO (19:57)
[2022-02-02 03:34] VITALS: BP 106/69; PULSE 64; RESP 14; TEMP 36.1; O2SAT 94
[2022-02-02] MEDS: Levothyroxine Sodium 25 MCG TABLET PO (05:39)
[2022-02-02 07:29] VITALS: BP 112/69; PULSE 65; RESP 18; TEMP 36.3; O2SAT 95
[2022-02-02 07:35] LABS: Hematocrit 33.3 % (42.0-52.0); Mean Corpuscular Hemoglobin 33.5 pg (27.0-33.0); Mean Corpuscular Volume 101.5 fL (80.0-98.0); Mean Platelet Volume 10.3 fL (9.4-12.4); Platelet Count 209 X10*3/uL (160-400); Red Blood Count 3.28 X10*6/uL (4.60-5.80); Red Cell Distribution Width 13.7 % (11.0-16.0); White Blood Count 8.9 X10*3/uL (4.8-10.8)
[2022-02-02 07:46] LABS: Anion Gap 15 (12-20); Blood Urea Nitrogen 24 mg/dL (9-16); Calcium 8.5 mg/dL (8.4-10.2); Carbon Dioxide 25 mmol/L (22-29); Chloride 104 mmol/L (96-108); Creatinine Clr Calc Pharmacy 92.7; Estimated Glomerular Filt Rate > 60; Glucose Random 124 mg/dL (60-115); Potassium 3.6 mmol/L (3.3-5.1); Sodium 140 mmol/L (135-145)
[2022-02-02 08:23] LABS: HIV AB/AG Nonreactive (Nonreactive); HIV Num 1 0.05 S/CO (0.00-0.99)
[2022-02-02] MEDS: dilTIAZem HCL CD 300 MG CAP.ER.24H PO (09:07)
[2022-02-02] MEDS: Cyanocobalamin (Vitamin B-12) 1,000 MCG TABLET 1000 MCG PO (09:07)
[2022-02-02] MEDS: Cholecalciferol (Vitamin D3) 25 MCG TABLET 50 MCG PO (09:07)
[2022-02-02] MEDS: Metoprolol Tartrate 50 MG TABLET PO (09:07)
[2022-02-02] MEDS: Apixaban 5 MG TABLET PO (09:07)
[2022-02-02] MEDS: Clopidogrel Bisulfate 75 MG TABLET PO (09:07)
[2022-02-02] MEDS: 0.9 % Sodium Chloride Flush 3 ML SYRINGE IVFLUSH ×2 (09:07→15:43)
--- NOTE | 2022-02-02 09:33 | PM.PNPUL ---
Subjective Subjective Date of Service: 02/02/22 Interval history: The patient was seen on exam. He did undergo a CT scan of the chest demonstrating some waxing waning interstitial changes. Now with more involvement of the right upper lung zone. He already had completed a course of Levaquin prior to admission. His blood work panel still pending. Although, no evidence of any eosinophilia. He does have underlying psoriasis. Appears to be stable at this time. Objective Data Labs CBC & Chem 7: 02/02/22 06:39 02/02/22 06:39 Labs: Laboratory Results - last 24 hr 02/01/22 02/01/22 02/02/22 06:15 10:05 06:39 WBC 8.9 RBC 3.28 L Hgb 11.0 L Hct 33.3 L MCV 101.5 H MCH 33.5 H MCHC 33.0 RDW 13.7 Plt Count 209 MPV 10.3 Absolute Nucleated RBC 0.000 Nucleated RBC % (auto) 0.0 ESR 51 H Sodium Potassium Chloride Carbon Dioxide Anion Gap BUN Creatinine Estim Creat Clear Calc Estimated GFR Random Glucose Calcium TSH 0.57 02/02/22 06:39 WBC RBC Hgb Hct MCV MCH MCHC RDW Plt Count MPV Absolute Nucleated RBC Nucleated RBC % (auto) ESR Sodium 140 Potassium 3.6 Chloride 104 Carbon Dioxide 25 Anion Gap 15 BUN 24 H Creatinine 0.76 Estim Creat Clear Calc 92.7 Estimated GFR > 60 Random Glucose 124 H Calcium 8.5 TSH Review of Systems Review of Systems Yes all other systems are reviewed and are negative Constitutional: Reports as per HPI Eyes: Reports as per HPI Reports as per HPI Cardiovascular: Reports as per HPI, Denies acrocyanosis, Denies cool extremities, Denies chest pain, Denies leg edema, Denies lightheadedness, Denies palpitations and Reports dyspnea Respiratory: Reports as per HPI, Reports no additional respiratory complaints, Reports cough and Reports dyspnea Gastrointestinal: Reports as per HPI and Reports no additional gastrointestinal complaints Genitourinary: Reports no additional male genitourinary complaints and Reports as per HPI Musculoskeletal: Reports no additional musculoskeletal complaints and Reports as per HPI Skin/Breast: Reports system reviewed and no additional complaints, except as docu Reports system reviewed and no additional complaints, except as documented and Reports as per HPI Psychiatric: Reports no additional psychiatric complaints and Reports as per HPI Endocrine: Reports no additional endocrine complaints, Reports as per HPI and Denies palpitations Hematologic/Lymphatic: Reports no additional hematologic/lymphatic complaints and Reports as per HPI Allergic/Immunologic: Reports no additional allergic/immunologic complaints and Reports as per HPI Physical Exam Vital Signs: Vital Signs: Last Vital Signs Temp 97.4 F 02/02/22 07:29 Pulse 65 02/02/22 07:29 Resp 18 02/02/22 07:29 BP 112/69 02/02/22 07:29 Pulse Ox 95 02/02/22 07:29 O2 Del Method 02/02/22 07:29 O2 Flow Rate 3 02/02/22 07:29 FiO2 93 02/01/22 19:26 BMI result Body Mass Index 32.1 Const: General: cooperative, comfortable, no acute distress, alert and awake Nutritional Appearance: overweight Orientation/consciousness: patient oriented x3 Resp: Effort & Inspection: normal respiratory effort and able to speak in complete sentences Auscultation: wheezes and diminished lung sounds Cardio: Other: irregular Rate: tachycardic Heart sounds: no murmurs GI: Inspection: No distended Palpation (GI): Soft to palpation and nontender Neuro: General: patient oriented x3 and CN's II-XI intact bilaterally Extrem: General: Yes no pedal edema Procedures Date of Service Date of Service: 02/02/22 Assessment and Plan Assessment and plan (1) ILD (interstitial lung disease): Status: Acute (2) Acute respiratory failure: Status: Acute (3) COPD exacerbation: Status: Acute (4) Atrial fibrillation with rapid ventricular response: Problem details: Ghulam with cardioversion March 2020 Status: Acute Plan Start Prednisone 40mg x 5 days, then decrease by 10mg every 5 days Start Doxycycline rate control bloodwork pending Hold Humira x 1 week oxygen evaluation, may need oxygen upon discharge Will have the patient f/u with his Psychiatry Instructor in 2 weeks Time Spent With Patient Time: Total time spent is greater than 50% in coordination of care (as documented) at patient's floor/unit and/or counseling patient: Progress Note: Quality Stroke Does the patient have a stroke diagnosis?: No
[2022-02-02] MEDS: predniSONE 20 MG TABLET 40 MG PO (10:03)
--- NOTE | 2022-02-02 10:15 | PM.PNCARD ---
Subjective Subjective Date of Service: 02/02/22 Interval history: He states that he feels better. No new complaints. No angina. Shortness of breath improved. No palpitations. Still on oxygen. Review of Systems Review of Systems Yes all other systems are reviewed and are negative Constitutional: Reports as per HPI Eyes: Reports as per HPI Reports as per HPI Cardiovascular: Reports as per HPI, Denies acrocyanosis, Denies cool extremities, Denies chest pain, Denies leg edema, Denies lightheadedness, Denies palpitations and Denies dyspnea Respiratory: Reports as per HPI, Reports no additional respiratory complaints and Denies dyspnea Gastrointestinal: Reports as per HPI and Reports no additional gastrointestinal complaints Genitourinary: Reports no additional male genitourinary complaints and Reports as per HPI Musculoskeletal: Reports no additional musculoskeletal complaints and Reports as per HPI Skin/Breast: Reports system reviewed and no additional complaints, except as docu Reports system reviewed and no additional complaints, except as documented and Reports as per HPI Psychiatric: Reports no additional psychiatric complaints and Reports as per HPI Endocrine: Reports no additional endocrine complaints, Reports as per HPI and Denies palpitations Hematologic/Lymphatic: Reports no additional hematologic/lymphatic complaints and Reports as per HPI Allergic/Immunologic: Reports no additional allergic/immunologic complaints and Reports as per HPI Physical Exam Vital Signs: Last Vital Signs Temp 97.4 F 02/02/22 07:29 Pulse 65 02/02/22 07:29 Resp 18 02/02/22 07:29 BP 112/69 02/02/22 07:29 Pulse Ox 95 02/02/22 07:29 O2 Del Method 02/02/22 07:29 O2 Flow Rate 3 02/02/22 07:29 FiO2 93 02/01/22 19:26 BMI result Body Mass Index 32.1 Const General: comfortable and no acute distress Orientation/consciousness: patient oriented x3 HEENT Other: Unremarkable Head: Yes normal to inspection Neck Neck: Yes normal visual inspection Chest Chest palpation & inspection: normal inspection of the chest Resp Auscultation: clear to auscultation bilaterally Cardio Palpation: normal PMI Heart sounds: S1 normal heart sound present, S2 normal heart sound present, no gallops, no murmurs and no rubs GI Palpation (GI): Soft to palpation Back/Spine/Pelvis Other: unremarkable Skin General skin exam: no rashes or lesions noted Neuro General: patient oriented x3 Extrem General: Yes normal to inspection Psych Mental Status: mental status grossly normal Objective Labs and Meds Result diagrams: 02/02/22 06:39 02/02/22 06:39 Lab results: Laboratory Results - last 24 hr 02/01/22 02/01/22 02/02/22 06:15 10:05 06:39 WBC 8.9 RBC 3.28 L Hgb 11.0 L Hct 33.3 L MCV 101.5 H MCH 33.5 H MCHC 33.0 RDW 13.7 Plt Count 209 MPV 10.3 Absolute Nucleated RBC 0.000 Nucleated RBC % (auto) 0.0 ESR 51 H Sodium Potassium Chloride Carbon Dioxide Anion Gap BUN Creatinine Estim Creat Clear Calc Estimated GFR Random Glucose Calcium TSH 0.57 02/02/22 06:39 WBC RBC Hgb Hct MCV MCH MCHC RDW Plt Count MPV Absolute Nucleated RBC Nucleated RBC % (auto) ESR Sodium 140 Potassium 3.6 Chloride 104 Carbon Dioxide 25 Anion Gap 15 BUN 24 H Creatinine 0.76 Estim Creat Clear Calc 92.7 Estimated GFR > 60 Random Glucose 124 H Calcium 8.5 TSH Imaging Radiologist's impression: Impressions Chest CT 02/01/22 13:25 IMPRESSION: Interstitial lung disease, right greater than left, increased from July 2021 exam. Coronary artery and aortic valve calcification and slightly dilated ascending thoracic aorta. Fleischner guidelines were followed. Progress Note: A&P Assessment and plan (1) Atrial fibrillation with rapid ventricular response: Status: Acute (2) COPD exacerbation: Status: Acute (3) Ascending aorta dilatation: Status: Acute Plan Echocardiogram with LVEF of 55-60%. Mild decreased right ventricle systolic function. No obvious valvular issues. Ascending aortic size at 4.4 cm. On telemetry, atrial fibrillation but improved rate control. He can continue the current regimen including diltiazem, metoprolol. He got digoxin load and he can get maintenance. Follow-up outpatient levels. Continue anticoagulation without changes. Clinically, no evidence of congestive heart failure. Follow-up Holter and outpatient appointment will be arranged. With regard to ascending exercise, in the CT, it is 4.3 x 4.5 cm. On echo, 4.4 cm. Will need to be followed. Discussed with Nicky Rasmussen. Time Spent With Patient Time: Total time spent is greater than 50% in coordination of care (as documented) at patient's floor/unit and/or counseling patient: 30min. Progress Note: Quality Stroke Does the patient have a stroke diagnosis?: No Procedures Date of Service Date of Service: 02/02/22
[2022-02-02 11:36] VITALS: BP 104/64; PULSE 66; RESP 18; TEMP 36.6; O2SAT 91
--- NOTE | 2022-02-02 11:51 | PM.DS ---
DS: Providers Provider Date of Service: 02/02/22 Date of admission: 01/31/22 21:09 Date of discharge: 02/02/22 Primary care physician: Oswaldo Delgado MD Consults: 01/31/22 21:36 Consult to Pulmonology Routine Consulting Provider: Benny Wise Reason for consultation: ambulatory hypoxia Has provider been notified: No 02/01/22 08:33 Consult to Cardiology Routine Consulting Provider: Zhang Pugh Reason for consultation: afib rvr Has provider been notified: No Attending physician on discharge: Rom [facility] Discharging clinician: Nicky Rasmussen DS: Diagnosis Discharge Diagnosis (1) Atrial fibrillation with rapid ventricular response: Status: Acute (2) Ascending aorta dilatation: Status: Acute (3) ILD (interstitial lung disease): Status: Acute DS: Summary Hospital Course Hospital Course: From H&P on day of admission ?76-year-old male with history of chronic atrial fibrillation anticoagulated with Eliquis, COPD, hypertension, hypercholesterolemia, coronary artery disease s/p PCI,? postoperative hypothyroidism, osteoporosis presents to the ED today for evaluation of shortness of breath ongoing for 2-3 weeks.? 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 Pt called rn internal medicine due to ongoing alex and was advised to present to the ed. No history CHF.? Chest x-ray without acute findings.? Hematology study stable.? Renal function electrolyte levels normal. BNP 251. On arrival patient tachypneic 21 saturating 91% with ambulatory hypoxia at 81%. Pt to be admitted for acute COPD axacerbation. No fevers, chills, cough, orthopnea, PND, palpitations, chest pain. Dyspnea on exertion. Patient was admitted for hypoxia with ambulation. BNP 251, no evidence of fluid overload. CXR with no evidence of pneumonia. recently treated with Levaquin for COPD exacerbation but no wheezing on exam to suggest acute COPD exacerbation. Chest CT showed interstitial lung diseases, right greater than left, increased from July 2021 exam. He was seen in consultation by pulmonology who recommended a course of doxycycline as well as a prednisone taper. He suggested to hold Humira for the next 1 week and follow up with his primary distillery worker general in the next 2 weeks. Consideration for changing Humira to alternative agent. He was evaluated for home O2, but did not qualify. Would likely benefit from outpatient pulmonary rehab. Echocardiogram was obtained which showed preserved ejection fraction, also noted to have mild dilatation of the ascending aorta measuring 4.4 cm. Recommend outpatient follow-up. Patient has history of permanent Afib. He was noted to have heart rate as high as 150s. He was loaded with digoxin and will be continued on daily maintenance dose. He was seen in consultation by Cardiology who did not feel that his dyspnea was secondary to cardiac etiology. He was continued on his home dose of diltiazem and metoprolol as well as anticoagulation with Eliquis. He will need outpatient holter monitor and follow-up to monitor digoxin levels. Time Spent with Patient Time attestation: Total time spent providing and/or coordinating discharge services: Discharge coordination time: Greater than 30 minutes Quality: Safe Use of Opioids Does Pt have an Active Cancer Diagnosis on the Problem List?: No Quality: Stroke Does the patient have a stroke diagnosis?: No Physical Exam Vital Signs: Vital Signs: Last Vital Signs Temp 97.8 F 02/02/22 11:36 Pulse 66 02/02/22 11:36 Resp 18 02/02/22 11:36 BP 104/64 02/02/22 11:36 Pulse Ox 91 L 02/02/22 11:36 O2 Del Method 02/02/22 11:36 O2 Flow Rate 3 02/02/22 11:36 FiO2 93 02/01/22 19:26 BMI result Body Mass Index 32.1 Const: General: cooperative, comfortable, no acute distress, alert and awake Nutritional Appearance: overweight Orientation/consciousness: patient oriented x3 Resp: Effort & Inspection: normal respiratory effort and able to speak in complete sentences Auscultation: no wheezes Cardio: Other: irregular Rate: regular rate Heart sounds: no murmurs GI: Inspection: No distended Palpation (GI): Soft to palpation and nontender Neuro: General: patient oriented x3 and CN's II-XI intact bilaterally Extrem: General: Yes no pedal edema DS: Data Data Completed and Pending Completed studies during hospitalization [Text1]: Procedures Shinto of Cardiac Rhythm, Single (04/01/20) Labs on day of discharge: Laboratory Results - last 24 hr 02/01/22 02/02/22 02/02/22 15:16 06:39 06:39 WBC 8.9 RBC 3.28 L Hgb 11.0 L Hct 33.3 L MCV 101.5 H MCH 33.5 H MCHC 33.0 RDW 13.7 Plt Count 209 MPV 10.3 Absolute Nucleated RBC 0.000 Nucleated RBC % (auto) 0.0 Sodium 140 Potassium 3.6 Chloride 104 Carbon Dioxide 25 Anion Gap 15 BUN 24 H Creatinine 0.76 Estim Creat Clear Calc 92.7 Estimated GFR > 60 Random Glucose 124 H Calcium 8.5 HIV 1&2 Ab/P24 Ag 4thGn Nonreactive Discharge Plan Discharge Anticipated Discharge Date/Time: 02/02/22 16:52 Patient Disposition: Home, Self-Care Discharge Diagnosis: Acute respiratory failure with hypoxia Interstitial lung disease Referrals: Po,Oswaldo Deng MD [Primary Care Provider] - 1 Week Discharge Medications: New doxycycline hyclate 100 mg Tablet 100 mg PO Q12H 6 Days Qty: 12 0RF digoxin 125 mcg (0.125 mg) tablet 125 mcg PO DAILY 30 Days Qty: 30 0RF prednisone 10 mg tablet See Taper PO DAILY Qty: 50 0RF Taper: Prednisone 40 mg daily for 5 Days and 0 Hour 30 mg daily for 5 Days and 0 Hour 20 mg daily for 5 Days and 0 Hour 10 mg daily for 5 Days and 0 Hour Continued metoprolol tartrate 25 mg tablet 50 mg PO BID 90 Days Qty: 360 3RF cyanocobalamin (vitamin B-12) [Vitamin B-12] 1,000 mcg tablet 1,000 mcg PO DAILY Qty: 90 3RF atorvastatin 80 mg tablet 80 mg PO BEDTIME Qty: 90 2RF clopidogrel 75 mg tablet 75 mg PO DAILY Qty: 90 1RF diltiazem HCl 300 mg capsule,extended release 24hr 300 mg PO DAILY Qty: 90 1RF levothyroxine 25 mcg tablet 25 mcg PO DAILY 30 Days Qty: 30 11RF Eliquis 5 mg tablet 5 mg PO BID Qty: 60 5RF cholecalciferol (vitamin D3) 50 mcg (2,000 unit) capsule 50 mcg PO DAILY 30 Days Qty: 30 11RF Breztri Aerosphere 160-9-4.8 mcg/actuation HFA aerosol inhaler 2 inh inhalation BID 30 Days Qty: 1 6RF Held Humira 40 mg/0.8 mL syringe kit 40 mg subcut Q2W Hold Instructions: hold for one week Discontinued levofloxacin 750 mg tablet 750 mg PO DAILY 7 Days Qty: 7 0RF No Action (DME) OXYGEN 2 L NC keep sats > 90 See Rx Instructions .Route .MEDSUPPLY Qty: 1 0RF Rx Instructions: As directed albuterol sulfate [ProAir HFA] 90 mcg/actuation HFA aerosol inhaler 2 puff inhalation Q4-6H PRN (Reason: shortness of breath or wheezing) Qty: 8.5 0RF Discharge Orders: Discharge Order (Routine); Ordered 02/02/22 Ordered By: Nicky Rasmussen Activity on Discharge: As tolerated Stand Alone Forms: Patient Portal Discharge page Care Plan Goals: see below Health Concerns: Acute respiratory failure with hypoxia probably related to advancing interstitial lung disease Atrial fibrillation with rapid ventricular response Plan of Treatment: Atrial fibrillation-daily digoxin was added for better heart rate control. Will need digoxin levels followed as outpatient Recommend outpatient Holter monitor Noted to have ascending aortic dilatation- 4.4cm -will need outpatient follow-up Call to schedule follow-up with Cardiology Imaging showed progression of interstitial lung disease. Complete course of antibiotics and steroids as prescribed Call to schedule outpatient follow-up with pulmonology Would benefit from outpatient pulmonary rehab Did not qualify for home oxygen Assessment: admitted for hypoxia found to have worsening ILD Discharge Date/Time: 02/02/22 18:13
[2022-02-02] MEDS: Digoxin 0.125 MG TABLET PO (12:00)
[2022-02-02 12:06] VITALS: PULSE 68; PULSE 77; PULSE 79; PULSE 80; O2SAT 89; O2SAT 95; O2SAT 97
--- NOTE | 2022-02-02 13:02 | MHC.CM.PN ---
per rounds pt may be dcd today pending eval possibly with o2 and vna
[2022-02-02 15:07] VITALS: BP 116/66; PULSE 85; RESP 18; TEMP 36.7; O2SAT 94
[2022-02-05 13:41] LABS: Immunoglobulin G Subclass 1 488 mg/dL (382-929); Immunoglobulin G Subclass 2 149 mg/dL (241-700); Immunoglobulin G Subclass 3 28 mg/dL (22-178); Immunoglobulin G Subclass 4 8.7 mg/dL (4-86); Immunoglobulin G Total 740 mg/dL (600-1540)
[2022-02-06 02:46] LABS: Immunoglobulin E 55 kU/L (<OR=114)
[2022-02-06 14:11] LABS: Cyclic Citrullinated Peptide <16 UNITS
[2022-02-06 15:42] LABS: Anti Nuclear Antibody Pattern Nuclear, Homogeneous; Anti Nuclear Antibody Screen POSITIVE (NEGATIVE)
[2022-02-07 20:41] LABS: Legionella Ag Urine Not Detected (Not Detected)
[2022-02-09 13:42] LABS: Asperg fumigatus Precip Abs NEGATIVE (NEGATIVE); Micropoly faeni Abs NEGATIVE (NEGATIVE); Pigeon serum Abs NEGATIVE (NEGATIVE); Saccharo pora viridis Abs NEGATIVE (NEGATIVE); Thermo candidus Abs NEGATIVE (NEGATIVE); Thermoa vulgaris #1 NEGATIVE (NEGATIVE)
== END 2022-02-02 18:13 | disposition home or self-care (01) | DRG 200 ==
LOC: HO.ED 21:02 → HO.EDOVER 21:19 → HO.IMC 21:53
PROVIDERS: Hospitalist; Admitting Provider Student in an Organized Health Care Education/Training Program; Emergency Provider Emergency Medicine; PCP Internal Medicine; Visit Provider Physician Assistant Medical
DX: J98.2 Interstitial emphysema (principal); D84.821 Immunodeficiency due to drugs; I48.21 Permanent atrial fibrillation; E89.0 Postprocedural hypothyroidism; I25.118 Atherosclerotic heart disease of native coronary artery with other forms of angina pectoris; Z95.5 Presence of coronary angioplasty implant and graft; I77.819 Aortic ectasia, unspecified site; L40.9 Psoriasis, unspecified; I25.2 Old myocardial infarction; Z20.822 Contact with and (suspected) exposure to COVID-19; Z88.0 Allergy status to penicillin; Z88.8 Allergy status to other drugs, medicaments and biological substances; Z79.01 Long term (current) use of anticoagulants; Z79.02 Long term (current) use of antithrombotics/antiplatelets; Z87.891 Personal history of nicotine dependence; Z79.620 Long term (current) use of immunosuppressive biologic; Z79.890 Hormone replacement therapy; Z79.899 Other long term (current) drug therapy
CPT/HCPCS: 0241U; 36415; 71045; 71250; 80048; 82784; 82785; 83880; 84443; 84484; 85025; 85027; 85379; 85652; 86038; 86039; 86200; 86331; 86606; 86609; 87389; 87449; 93005; 93306; 97162; 97166; 99285; J1160; J2930; Q9957

== ENCOUNTER 2022-02-09 07:20 | Outpatient (REF) | payer MEDICARE, SELFPAY ==
[2022-02-09 11:59] LABS: Albumin Level 3.4 g/dL (3.5-5.0); Phosphorus 3.2 mg/dL (2.7-4.5)
[2022-02-09 12:22] LABS: Vitamin D 25-OH Total 47.8 ng/mL (>30)
[2022-02-11 13:07] LABS: Calcium (PTHI) 9.1 mg/dL (8.6-10.3); PTHI 14 pg/mL (16-77)
== END 2022-02-09 07:21 | disposition home or self-care (01) ==
LOC: HO.HMGCLDS 07:20
PROVIDERS: PCP Internal Medicine; Visit Provider Internal Medicine
DX: E55.9 Vitamin D deficiency, unspecified (principal)
CPT/HCPCS: 36415; 82040; 82306; 83970; 84100

== ENCOUNTER 2022-02-10 15:03 | Emergency (ER) | payer MEDICARE, SELFPAY ==
--- NOTE | ~2022-02-10 | XR_ITS ---
EXAMINATION: XR CHEST CLINICAL INFORMATION: sensation of foreign body in the throat COMPARISON: 01/31/2022 TECHNIQUE: Frontal view of the chest was obtained. FINDINGS: There are mild increased interstitial markings bilaterally there is no evidence of consolidation nodules or foreign body in the midline. Cardiomediastinal silhouette is normal. XR/XR chest 1V IMPRESSION: Mild changes of emphysema. No evidence of foreign bodies or consolidation.
[2022-02-10 15:09] VITALS: BP 131/74; BP 142/90; PULSE 131; PULSE 98; RESP 17; TEMP 37.1; O2SAT 95; O2SAT 98; BMI 31.9
--- NOTE | 2022-02-10 15:10 | ED_ITS ---
HPI - General Adult General Chief complaint: General Medical Stated complaint: prev. choking, throat pain Time Seen by Provider: 02/10/22 15:05 Source: patient and EMS Mode of arrival: EMS Limitations: no limitations History of Present Illness HPI narrative: 76-year-old male history of atrial fibrillation, interstitial lung disease, coronary artery disease, hypertension, hypercholesterolemia, presenting to the emergency department via ambulance with foreign body sensation throughout. Patient tells me that he was eating steak and felt like he was choking, since then he has been having foreign body sensation in his throat he tells me he feels like there might be steak stuck in there. This is never happened to him before. No history of esophageal strictures. Upon arrival patient appears comfortable, no signs of distress, trying to cough to try to get the foreign body out. Choking episode happened just prior to arrival, he did not lose consciousness. Related Data Home Medications Medication Instructions Recorded Confirmed adalimumab 40 mg/0.8 mL 40 mg subcut Q2W 04/01/20 02/07/22 subcutaneous syringe kit ([employer]) Previous Rx's Medication Instructions Recorded metoprolol tartrate 25 mg tablet 50 mg PO BID 90 days #360 tabs 06/07/21 cyanocobalamin (vitamin B-12) 1,000 mcg PO DAILY #90 tabs 06/20/21 1,000 mcg tablet (Vitamin B-12) cholecalciferol (vitamin D3) 50 50 mcg PO DAILY 30 days #30 caps 06/28/21 mcg (2,000 unit) capsule atorvastatin 80 mg tablet 80 mg PO BEDTIME #90 tabs 07/27/21 clopidogrel 75 mg tablet 75 mg PO DAILY #90 tabs 10/16/21 diltiazem HCl 300 mg 300 mg PO DAILY #90 caps 10/16/21 capsule,extended release 24 hr apixaban 5 mg tablet (Eliquis) 5 mg PO BID #60 tabs 10/30/21 levothyroxine 25 mcg tablet 25 mcg PO DAILY 30 days #30 tabs 10/30/21 budesonide 160 mcg-glycopyr 9 2 inh inhalation BID 30 days #1 ea 01/25/22 mcg-formot 4.8 mcg/actuation HFA inhaler (Breztri Aerosphere) digoxin 125 mcg (0.125 mg) tablet 125 mcg PO DAILY 30 days #30 tabs 02/02/22 doxycycline hyclate 100 mg tablet 100 mg PO Q12H 6 days #12 tabs 02/02/22 prednisone 10 mg tablet See Taper PO DAILY #50 tabs 02/02/22 OXYGEN 2 L NC keep sats > 90 #1 ea 02/07/22 albuterol sulfate 90 mcg/actuation 2 puff inhalation Q4-6H PRN 02/07/22 aerosol inhaler (ProAir HFA) shortness of breath or wheezing #8.5 grams Allergies Allergy/AdvReac Type Severity Reaction Status Date / Time hydrochlorothiazide Allergy Severe Anaphylaxis Verified 02/07/22 11:33 lisinopril Allergy Severe Anaphylaxis Verified 02/07/22 11:33 Penicillins Allergy Severe Anaphylaxis Verified 02/07/22 11:33 Review of Systems Review of Systems: Constitutional : No Weight loss, No Fever, No Chills, No Fatigue, No Malaise ENT/Mouth : No sore throat, No Rhinorreah, + FB sensation in throat Eyes: No Eye Pain, No Swelling, No Redness Cardiovascular : No Chest Pain, No SOB, No Dyspnea on Exertion, No Orthopnea, No Edema, No Palpitations Respiratory : No Cough, No Sputum, No Wheezing Gastrointestinal : No Nausea, No Vomiting, No Diarrhea, No Constipation, No abdominal Pain, No Hematochezia, No Melena Genitourinary : No Dysuria, No Urinary Frequency, No Hematuria, Musculoskeletal : No joint pain, No Myalgias, No Joint Swelling Skin : No Skin Lesions, No rash Neuro : No Weakness, No Numbness, No Dizziness, No Headache Psych : No Anxiety/Panic, No Depression All other systems reviewed and are negative Yes all other systems are reviewed and are negative [facility] Past Medical History Medical History (Updated 02/10/22 @ 15:19 by RAYNE Marcelo) Abnormal SPEP Ascending aorta dilatation Atrial fibrillation Bronchitis Chest discomfort COPD (chronic obstructive pulmonary disease) Coronary artery disease HOLLOWAY (dyspnea on exertion) Former smoker Ground glass opacity present on imaging of lung Hemoptysis Hypercholesterolemia Hypertension ILD (interstitial lung disease) Impaired glucose tolerance Multinodular thyroid Obesity (BMI 30-39.9) Obesity (BMI 30-39.9) Postoperative hypothyroidism Psoriasis Pulmonary nodules/lesions, multiple Right renal stone Stable angina Swelling of left lower extremity Thyroid nodule Tubular adenoma of colon (~2021) Vitamin D deficiency Wedge compression fracture of T9 vertebra (~2018) Surgical History History of appendectomy History of cardioversion (~2020) History of colonoscopy History of heart artery stent (~2019) History of lung biopsy (~2016) History of partial thyroidectomy (~2020) History of tonsillectomy Family History Family History Father Heart disease Mother No problems noted. Paternal Grandfather Heart disease Social History Social History Household Members: Spouse Housing: House Do you presently have visiting nurse or other home services: No Alcohol intake: former Year quit: 2014 Patient Tobacco Use Status: Former Tobacco user Quit Date: 2014 Tobacco use type: Cigarette Years Smoked: 50 e-Cigarette/Vaping Use: Never Used Second Hand Smoke Exposure: No Advance Directives: Yes Advance Directives on File: Yes Advance Directives Date on File: 09/21/20 service: Yes Current occupational status: retired Cognitive needs: No Hearing needs: No Vision needs: Yes Physical Exam ED Vital Signs: Vital Signs - 24 hr 02/10/22 15:09 Temperature 98.8 F Pulse Rate 131 H Respiratory Rate 17 Blood Pressure 131/74 Pulse Oximetry 98 BMI result Body Mass Index 31.9 Course Reevaluation(s) Reevaluation #1: Went to re-evaluate patient he tells me he is feeling much better. Will obtain chest x-ray. If this is normal patient will be discharged home. Time: 15:19 Reevaluation #2: Patient able to tolerate saltines and adeline elvin without difficulties. Chest x- ray pending. Patient tells me he feels like he is back to normal he tells me before he cannot even swallow. He tells me he is excited to go home. Time: 15:40 Reevaluation #3: Chest x-ray with concerns of worsening emphysema however no consolidations or foreign bodies noted. Patient without upper respiratory symptoms, patient feeling well, stable vitals, no stridor on exam, able to tolerate p.o.. At this time will be discharged home with GI follow-up. Comfortable discharge Time: 16:29 Medical Decision Making MDM Narrative Medical decision making narrative: 1510 76-year-old male presents with foreign body sensation in throat after choking on steak. Physical examination benign no signs of respiratory distress, no stridor. Likely FB in throat or just discomfort from previous truama when choking Immediately upon patient's arrival I had him swish with carbonated drink, patient vomited a few times and tell me he is feeling better. Will continue to monitor if necessary will administer nitro and water Medical Records Medical records reviewed: Yes I reviewed the patient's medical records. Lab Data Lab results reviewed: Yes I reviewed the patient's lab results. Critical Care Time Critical Care Time Critical Care Time: No Discharge Plan Discharge Clinical Impression: Sensation of foreign body in throat Patient Disposition: Home, Self-Care Additional Instructions: Take your medications as prescribed. If you were prescribed antibiotics today, it is important that you take your medication to their entirety, do not skip any doses, do not finish them early. Follow-up with your primary care provider this week. Follow-up with GI you may need an upper endoscopy this continues to happen. Please cut your food into small pieces. Return to the emergency department with new or worsening symptoms. Such as fevers, chills, chest pain, shortness of breath, nausea, vomiting, dizziness, headache, vision changes, lethargy In case of emergency call 911 ?XR/XR chest 1V IMPRESSION: Mild changes of emphysema. No evidence of foreign bodies or consolidation. ? Prescriptions: No Action metoprolol tartrate 25 mg tablet 50 mg PO BID 90 Days Qty: 360 3RF cyanocobalamin (vitamin B-12) [Vitamin B-12] 1,000 mcg tablet 1,000 mcg PO DAILY Qty: 90 3RF atorvastatin 80 mg tablet 80 mg PO BEDTIME Qty: 90 2RF clopidogrel 75 mg tablet 75 mg PO DAILY Qty: 90 1RF diltiazem HCl 300 mg capsule,extended release 24hr 300 mg PO DAILY Qty: 90 1RF levothyroxine 25 mcg tablet 25 mcg PO DAILY 30 Days Qty: 30 11RF Eliquis 5 mg tablet 5 mg PO BID Qty: 60 5RF doxycycline hyclate 100 mg Tablet 100 mg PO Q12H 6 Days Qty: 12 0RF digoxin 125 mcg (0.125 mg) tablet 125 mcg PO DAILY 30 Days Qty: 30 0RF prednisone 10 mg tablet See Taper PO DAILY Qty: 50 0RF Taper: Prednisone 40 mg daily for 5 Days and 0 Hour 30 mg daily for 5 Days and 0 Hour 20 mg daily for 5 Days and 0 Hour 10 mg daily for 5 Days and 0 Hour Humira 40 mg/0.8 mL syringe kit 40 mg subcut Q2W Hold Instructions: hold for one week (DME) OXYGEN 2 L NC keep sats > 90 See Rx Instructions .Route .MEDSUPPLY Qty: 1 0RF Rx Instructions: As directed albuterol sulfate [ProAir HFA] 90 mcg/actuation HFA aerosol inhaler 2 puff inhalation Q4-6H PRN (Reason: shortness of breath or wheezing) Qty: 8.5 0RF cholecalciferol (vitamin D3) 50 mcg (2,000 unit) capsule 50 mcg PO DAILY 30 Days Qty: 30 11RF Breztri Aerosphere 160-9-4.8 mcg/actuation HFA aerosol inhaler 2 inh inhalation BID 30 Days Qty: 1 6RF Referrals: [facility] [Provider Group] - 2 weeks Physician,Unknown J [Physician] - Stand Alone Forms: Work/School Release
== END 2022-02-10 16:38 | disposition home or self-care (01) ==
PROVIDERS: Emergency Provider Emergency Medicine; PCP Internal Medicine
DX: R09.89 Other specified symptoms and signs involving the circulatory and respiratory systems (principal); I48.91 Unspecified atrial fibrillation; E78.00 Pure hypercholesterolemia, unspecified; I10 Essential (primary) hypertension; Z79.02 Long term (current) use of antithrombotics/antiplatelets; Z79.01 Long term (current) use of anticoagulants; Z79.899 Other long term (current) drug therapy
CPT/HCPCS: 71045; 99283

== ENCOUNTER 2022-02-15 17:31 | Emergency (ER) | payer MEDICARE, SELFPAY ==
[2022-02-15] VITALS (8 sets, daily range): BP systolic 104–144; BP diastolic 67–100; PULSE 79–120; RESP 16–20; TEMP 36.4–37.2; O2SAT 88–95; BMI 31.9
--- NOTE | ~2022-02-15 | XR_ITS ---
EXAMINATION: XR CHEST CLINICAL INFORMATION: Rule out pulmonary edema COMPARISON: 02/10/2022 TECHNIQUE: Frontal view of the chest was obtained. FINDINGS: Cardiomediastinal silhouette is stable. Atherosclerotic calcification in the aortic arch. Chronic interstitial lung markings without evidence for acute process. No pleural effusion or pneumothorax. XR/XR chest 1V IMPRESSION: Chronic interstitial lung disease, no acute process.
--- NOTE | 2022-02-15 17:33 | ECG_ITS ---
Test Reason : shortness of breath Blood Pressure : / mmHG Vent. Rate : 090 BPM Atrial Rate : 000 BPM P-R Int : 000 ms QRS Dur : 076 ms QT Int : 344 ms P-R-T Axes : 000 004 013 degrees QTc Int : 420 ms Atrial fibrillation Abnormal ECG When compared with ECG of 31-JAN-2022 20:27, No significant change was found Referred By: Generic ED Physician Electronically Signed By:FAREED GARVEY MD
[2022-02-15 17:57] LABS: Basophils Percent Auto 0.1 % (0-2); Eosinophils Percent Auto 0.1 % (0-4); Hematocrit 35.4 % (42.0-52.0); Hemoglobin 11.5 g/dl (14.0-18.0); Imm Gran Abs Auto 0.04 X10*3/uL (0.00-0.03); Imm Gran Pct Auto 0.6 % (0.0-0.4); Lymphocytes Absolute Auto 0.8 X10*3/uL (1.2-4.9); Lymphocytes Percent Auto 10.8 % (20-40); MANUAL DIFF FLAG NO; Mean Corpuscular HGB Conc 32.5 g/dl (31.0-36.0); Mean Corpuscular Hemoglobin 33.4 pg (27.0-33.0); Mean Corpuscular Volume 102.9 fL (80.0-98.0); Monocytes Absolute Auto 0.4 X10*3/uL (0.1-1.2); Monocytes Percent Auto 5.1 % (2-11); Neutrophils Absolute Auto 5.9 x10*3/uL (2.0-8.3); Neutrophils Percent Auto 83.3 % (45-73); Platelet Count 151 X10*3/uL (160-400); Red Blood Count 3.44 X10*6/uL (4.60-5.80); Red Cell Distribution Width 14.2 % (11.0-16.0)
[2022-02-15 18:10] LABS: COVID-19 Test Negative (Negative)
[2022-02-15 18:14] LABS: Alanine Aminotransferase 40 U/L (0-40); Albumin Level 3.3 g/dL (3.5-5.0); Alkaline Phosphatase 131 U/L (39-117); Anion Gap 17 (12-20); Aspartate Amino Transferase 20 U/L (5-37); Bilirubin Direct 0.2 mg/dL (0.0-0.5); Bilirubin Total 0.6 mg/dL (0.0-1.0); Blood Urea Nitrogen 35 mg/dL (9-16); Calcium 8.4 mg/dL (8.4-10.2); Carbon Dioxide 25 mmol/L (22-29); Chloride 102 mmol/L (96-108); Creatinine Clr Calc Pharmacy 65.1; Estimated Glomerular Filt Rate > 60; Glucose Random 334 mg/dL (60-115); Lipase 32 U/L (8-78); Potassium 4.1 mmol/L (3.3-5.1); Sodium 140 mmol/L (135-145); Total Protein 6.2 g/dL (6.5-8.0)
[2022-02-15 18:20] LABS: Troponin-I High Sensitivity < 3.5 ng/L (<3.5-35.0)
--- NOTE | 2022-02-15 18:35 | ED_ITS ---
HPI - Arrhythmia/Palpitations General Chief Complaint: Arrhythmia/Palpitations Stated Complaint: High Heart Rate Time Seen by Provider: 02/15/22 18:18 Source: patient Mode of arrival: ambulatory Limitations: no limitations History of Present Illness HPI narrative: Patient comes to the emergency room complaining of lightheadedness / dizziness earlier this morning, heart rate in the 120s to 130s. Complaining of chronic shortness of breath, 88% on room air. Patient states that he has no chest pain. Patient states that he has facial flushing and decided to check his heart rate, it was in the 120s. This time, patient states he has no palpitations, no flushing, continues not having chest pain Related Data Home Medications Medication Instructions Recorded Confirmed adalimumab 40 mg/0.8 mL 40 mg subcut Q2W 04/01/20 02/07/22 subcutaneous syringe kit (Humira) Previous Rx's Medication Instructions Recorded metoprolol tartrate 25 mg tablet 50 mg PO BID 90 days #360 tabs 06/07/21 cyanocobalamin (vitamin B-12) 1,000 mcg PO DAILY #90 tabs 06/20/21 1,000 mcg tablet (Vitamin B-12) cholecalciferol (vitamin D3) 50 50 mcg PO DAILY 30 days #30 caps 06/28/21 mcg (2,000 unit) capsule atorvastatin 80 mg tablet 80 mg PO BEDTIME #90 tabs 07/27/21 clopidogrel 75 mg tablet 75 mg PO DAILY #90 tabs 10/16/21 diltiazem HCl 300 mg 300 mg PO DAILY #90 caps 10/16/21 capsule,extended release 24 hr apixaban 5 mg tablet (Eliquis) 5 mg PO BID #60 tabs 10/30/21 levothyroxine 25 mcg tablet 25 mcg PO DAILY 30 days #30 tabs 10/30/21 budesonide 160 mcg-glycopyr 9 2 inh inhalation BID 30 days #1 ea 01/25/22 mcg-formot 4.8 mcg/actuation HFA inhaler (Breztri Aerosphere) digoxin 125 mcg (0.125 mg) tablet 125 mcg PO DAILY 30 days #30 tabs 02/02/22 doxycycline hyclate 100 mg tablet 100 mg PO Q12H 6 days #12 tabs 02/02/22 prednisone 10 mg tablet See Taper PO DAILY #50 tabs 02/02/22 albuterol sulfate 90 mcg/actuation 2 puff inhalation Q4-6H PRN 02/07/22 aerosol inhaler (ProAir HFA) shortness of breath or wheezing #8.5 grams OXYGEN 2 L NC keep sats > 90 #1 ea 02/12/22 Allergies Allergy/AdvReac Type Severity Reaction Status Date / Time hydrochlorothiazide Allergy Severe Anaphylaxis Verified 02/07/22 11:33 lisinopril Allergy Severe Anaphylaxis Verified 02/07/22 11:33 Penicillins Allergy Severe Anaphylaxis Verified 02/07/22 11:33 Review of Systems Review of Systems: Constitutional : No Weight loss, No Fever, No Chills, No Night Sweats, No Fatigue, No Malaise ENT/Mouth : No Hearing loss, No Ear Pain, No Nasal Congestion, No Sinus Pain, No Hoarseness, No sore throat, No Rhinorrhea, No Swallowing Difficulty Eyes: No Eye Pain, No Swelling, No Redness, No Foreign Body, No Discharge, No Vision Changes Cardiovascular : No Chest Pain, No SOB, No Dyspnea on Exertion, No Orthopnea, No Edema, No Palpitations Respiratory : No Cough, No Sputum, No Wheezing, No Smoke Exposure, No Dyspnea Gastrointestinal : No Nausea, No Vomiting, No Diarrhea, No Constipation, No abdominal Pain, No Hematochezia, No Melena Genitourinary : no irregular bleeding, No Dysuria, No Urinary Frequency, No Hematuria, No Urinary Incontinence, No Urgency, No Flank Pain, No Urinary Flow Changes, No Hesitancy Musculoskeletal : No joint pain, No Myalgias, No Joint Swelling Skin : No Skin Lesions, No rash, complaining of facial flushing Neuro : No Weakness, No Numbness, No Paresthesias, No Loss of Consciousness, no heading, complaining of lightheadedness earlier today Psych : No Anxiety/Panic, No Depression, No SI/HI/AH/VH, No Social Issues, Heme/Lymph: No Bruising, No Bleeding,No Lymphadenopathy Endocrine : No Polyuria, No Polydipsia, No Temperature Intolerance PMFSH Past Medical History Medical History Abnormal SPEP Ascending aorta dilatation Atrial fibrillation Bronchitis Chest discomfort COPD (chronic obstructive pulmonary disease) Coronary artery disease HOLLOWAY (dyspnea on exertion) Former smoker Ground glass opacity present on imaging of lung Hemoptysis Hypercholesterolemia Hypertension ILD (interstitial lung disease) Impaired glucose tolerance Multinodular thyroid Obesity (BMI 30-39.9) Obesity (BMI 30-39.9) Postoperative hypothyroidism Psoriasis Pulmonary nodules/lesions, multiple Right renal stone Stable angina Swelling of left lower extremity Thyroid nodule Tubular adenoma of colon (~2021) Vitamin D deficiency Wedge compression fracture of T9 vertebra (~2018) Surgical History History of appendectomy History of cardioversion (~2020) History of colonoscopy History of heart artery stent (~2019) History of lung biopsy (~2016) History of partial thyroidectomy (~2020) History of tonsillectomy Family History Family History Father Heart disease Mother No problems noted. Paternal Grandfather Heart disease Social History Social History Household Members: Spouse Housing: House Do you presently have visiting nurse or other home services: No Alcohol intake: never Patient Tobacco Use Status: Former Tobacco user Quit Date: 2014 Tobacco use type: Cigarette Years Smoked: 50 e-Cigarette/Vaping Use: Never Used Second Hand Smoke Exposure: No Use of substances other than those prescribed or required for medical reasons: No Advance Directives: Yes Advance Directives on File: Yes Advance Directives Date on File: 09/21/20 service: Yes Current occupational status: retired Cognitive needs: No Hearing needs: No Vision needs: Yes Physical Exam Vital Signs: Vital Signs: Last Vital Signs Temp 97.7 F 02/15/22 21:41 Pulse 92 02/15/22 21:41 Resp 16 02/15/22 21:41 BP 144/100 H 02/15/22 21:41 Pulse Ox 95 02/15/22 21:41 O2 Del Method 02/15/22 21:41 O2 Flow Rate 2 02/15/22 19:18 BMI result Body Mass Index 31.9 Const: Other: Appearance: Alert. Oriented X3. No acute distress. Eyes: Pupils equal, round and reactive to light. ENT: Pharynx normal. Neck: Normal inspection. Neck supple. No lymph nodes noted. No crepitus CVS: irregularly irregular heart rate, between 90 and 100,. Pulses normal. Normal S1 and S2 Respiratory: No respiratory distress. Breath sounds normal. No Wheezing. No rales Abdomen: Soft and nontender. No rigidity. No distention. Skin: Skin warm and dry. Normal skin color. Normal skin turgor. Extremities: No lower extremity edema. No Lacerations. No Rash Neuro: Oriented X 3. No motor deficit. No sensory deficit. Moving all extremities. No slurred speech. CN 2 through 12 grossly intact Psych: calm, cooperative, normal affect Course Course Course Narrative: patient known to have atrial fibrillation, states he is compliant with his medications, takes Cardizem and digoxin, also Eliquis and Plavix. At this time, patient is asymptomatic. Labs, A chest x-ray pending. EKG shows atrial fibrillation, heart rate 90, QTC 420, no acute findings I discussed the patient with Dr. Lindo, at this time, we will not modify any of his medications. Patient is to follow up with Dr. Oswald, patient will likely need a Holter monitor evaluation. patient's oxygen saturation has remained up to 95% on room air, unclear why it was recorded that patient is on 2 L, he is not on oxygen at all. Patient was walked around the emergency room on room air, oxygen dropped to 91%, patient did not feel short of breath, dizzy. 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 MDM - Arrhythmia/Palpitations Lab Data Result diagrams: 02/15/22 17:50 02/15/22 17:50 Labs: Lab Results 02/15/22 02/15/22 02/15/22 Range/Units 17:49 17:50 17:50 WBC 7.0 (4.8-10.8) X10*3/uL RBC 3.44 L (4.60-5.80) X10*6/uL Hgb 11.5 L (14.0-18.0) g/dl Hct 35.4 L (42.0-52.0) % MCV 102.9 H (80.0-98.0) fL MCH 33.4 H (27.0-33.0) pg MCHC 32.5 (31.0-36.0) g/dl RDW 14.2 (11.0-16.0) % Plt Count 151 L D (160-400) X10*3/uL MPV 10.0 (9.4-12.4) fL Immature Gran % (Auto) 0.6 H (0.0-0.4) % Neut % (Auto) 83.3 H (45-73) % Lymph % (Auto) 10.8 L (20-40) % [place] % (Auto) 5.1 (2-11) % Eos % (Auto) 0.1 (0-4) % Baso % (Auto) 0.1 (0-2) % Lymph # (Auto) 0.8 L (1.2-4.9) X10*3/uL [place] # (Auto) 0.4 (0.1-1.2) X10*3/uL Eos # (Auto) 0.0 (0.0-0.4) X10*3/uL Baso # (Auto) 0.0 (0.0-0.2) X10*3/uL Abs Immat Gran (auto) 0.04 H (0.00-0.03) X10*3/uL Absolute Neuts (auto) 5.9 (2.0-8.3) x10*3/uL Absolute Nucleated RBC 0.000 (0.0-0.012) X10*3/uL Nucleated RBC % (auto) 0.0 (0.0-0.2) /100WBC Sodium 140 (135-145) mmol/L Potassium 4.1 (3.3-5.1) mmol/L Chloride 102 (96-108) mmol/L Carbon Dioxide 25 (22-29) mmol/L Anion Gap 17 (12-20) BUN 35 H (9-16) mg/dL Creatinine 1.08 (0.5-1.4) mg/dL Estim Creat Clear Calc 65.1 Estimated GFR > 60 POC Glucose (60-115) mg/dL Random Glucose 334 H D (60-115) mg/dL Calcium 8.4 (8.4-10.2) mg/dL Total Bilirubin 0.6 (0.0-1.0) mg/dL Direct Bilirubin 0.2 (0.0-0.5) mg/dL AST 20 (5-37) U/L ALT 40 (0-40) U/L Alkaline Phosphatase 131 H (39-117) U/L Troponin I High Sens (<3.5-35.0) ng/L B-Natriuretic Peptide (<100) pg/mL Total Protein 6.2 L (6.5-8.0) g/dL Albumin 3.3 L (3.5-5.0) g/dL Lipase 32 (8-78) U/L COVID-19 ([facility]) Negative (Negative) COVID-19 Clin Com See Note 02/15/22 02/15/22 Range/Units 17:50 19:53 WBC (4.8-10.8) X10*3/uL RBC (4.60-5.80) X10*6/uL Hgb (14.0-18.0) g/dl Hct (42.0-52.0) % MCV (80.0-98.0) fL MCH (27.0-33.0) pg MCHC (31.0-36.0) g/dl RDW (11.0-16.0) % Plt Count (160-400) X10*3/uL MPV (9.4-12.4) fL Immature Gran % (Auto) (0.0-0.4) % Neut % (Auto) (45-73) % Lymph % (Auto) (20-40) % [place] % (Auto) (2-11) % Eos % (Auto) (0-4) % Baso % (Auto) (0-2) % Lymph # (Auto) (1.2-4.9) X10*3/uL [place] # (Auto) (0.1-1.2) X10*3/uL Eos # (Auto) (0.0-0.4) X10*3/uL Baso # (Auto) (0.0-0.2) X10*3/uL Abs Immat Gran (auto) (0.00-0.03) X10*3/uL Absolute Neuts (auto) (2.0-8.3) x10*3/uL Absolute Nucleated RBC (0.0-0.012) X10*3/uL Nucleated RBC % (auto) (0.0-0.2) /100WBC Sodium (135-145) mmol/L Potassium (3.3-5.1) mmol/L Chloride (96-108) mmol/L Carbon Dioxide (22-29) mmol/L Anion Gap (12-20) BUN (9-16) mg/dL Creatinine (0.5-1.4) mg/dL Estim Creat Clear Calc Estimated GFR POC Glucose 187 H (60-115) mg/dL Random Glucose (60-115) mg/dL Calcium (8.4-10.2) mg/dL Total Bilirubin (0.0-1.0) mg/dL Direct Bilirubin (0.0-0.5) mg/dL AST (5-37) U/L ALT (0-40) U/L Alkaline Phosphatase (39-117) U/L Troponin I High Sens < 3.5 (<3.5-35.0) ng/L B-Natriuretic Peptide 174 H (<100) pg/mL Total Protein (6.5-8.0) g/dL Albumin (3.5-5.0) g/dL Lipase (8-78) U/L COVID-19 ([facility]) (Negative) COVID-19 Clin Com Imaging Data Chest x-ray: Radiologist's impression: NDINGS: Cardiomediastinal silhouette is stable. Atherosclerotic calcification in the aortic arch. Chronic interstitial lung markings without evidence for acute process. No pleural effusion or pneumothorax. XR/XR chest 1V IMPRESSION: Chronic interstitial lung disease, no acute process. Discharge Plan Discharge Clinical Impression: Atrial fibrillation Patient Disposition: Home, Self-Care Instructions: A-fib (Atrial Fibrillation) (ED) Additional Instructions: Please follow-up with your primary care physician tomorrow. your next appointment next week, please follow-up with your A1c results. If you have any worsening or new symptoms, please return to the emergency room or call 911 Prescriptions: No Action metoprolol tartrate 25 mg tablet 50 mg PO BID 90 Days Qty: 360 3RF cyanocobalamin (vitamin B-12) [Vitamin B-12] 1,000 mcg tablet 1,000 mcg PO DAILY Qty: 90 3RF atorvastatin 80 mg tablet 80 mg PO BEDTIME Qty: 90 2RF clopidogrel 75 mg tablet 75 mg PO DAILY Qty: 90 1RF diltiazem HCl 300 mg capsule,extended release 24hr 300 mg PO DAILY Qty: 90 1RF levothyroxine 25 mcg tablet 25 mcg PO DAILY 30 Days Qty: 30 11RF Eliquis 5 mg tablet 5 mg PO BID Qty: 60 5RF (DME) OXYGEN 2 L NC keep sats > 90 See Rx Instructions .Route .MEDSUPPLY Qty: 1 0RF Rx Instructions: As directed doxycycline hyclate 100 mg Tablet 100 mg PO Q12H 6 Days Qty: 12 0RF digoxin 125 mcg (0.125 mg) tablet 125 mcg PO DAILY 30 Days Qty: 30 0RF prednisone 10 mg tablet See Taper PO DAILY Qty: 50 0RF Taper: Prednisone 40 mg daily for 5 Days and 0 Hour 30 mg daily for 5 Days and 0 Hour 20 mg daily for 5 Days and 0 Hour 10 mg daily for 5 Days and 0 Hour Humira 40 mg/0.8 mL syringe kit 40 mg subcut Q2W Hold Instructions: hold for one week albuterol sulfate [ProAir HFA] 90 mcg/actuation HFA aerosol inhaler 2 puff inhalation Q4-6H PRN (Reason: shortness of breath or wheezing) Qty: 8.5 0RF cholecalciferol (vitamin D3) 50 mcg (2,000 unit) capsule 50 mcg PO DAILY 30 Days Qty: 30 11RF Breztri Aerosphere 160-9-4.8 mcg/actuation HFA aerosol inhaler 2 inh inhalation BID 30 Days Qty: 1 6RF
[2022-02-15 19:00] LABS: B Type Natriuretic Peptide 174 pg/mL (<100)
[2022-02-15 19:58] LABS: Glucose, Whole Blood 187 mg/dL (60-115)
--- NOTE | 2022-02-15 21:38 | PC.NURSE ---
PT WENT FOR A WALK WITH OUT O2 ,02 SAT WENT UP TO 93 % DURING WALKING ,THEN DROP TO 91 % ,I ASK PT IF HE FELT SOB ,PATIENT SAID NO NOT REALLY .
[2022-02-16 05:18] LABS: Estimated Average Glucose 126 mg/dL
== END 2022-02-15 22:02 | disposition home or self-care (01) ==
PROVIDERS: Emergency Provider Emergency Medicine; PCP Internal Medicine
DX: R06.02 Shortness of breath (principal); R00.2 Palpitations; I48.91 Unspecified atrial fibrillation; Z20.822 Contact with and (suspected) exposure to COVID-19; Z79.899 Other long term (current) drug therapy; Z87.891 Personal history of nicotine dependence
CPT/HCPCS: 36415; 71045; 80053; 82248; 82947; 83036; 83690; 83880; 84484; 85025; 87635; 93005; 99285

== ENCOUNTER → 2022-02-19 07:12 | Outpatient (REF) | payer MEDICARE, SELFPAY ==
--- NOTE | 2022-02-19 07:16 | HM_ITS ---
* Total monitoring time 3 days. * Underlying rhythm is atrial fibrillation. Average rate 81/Min. Range 39 to 142/Min. About 5.5% the time, rate greater than 100/Min. * PVCs noted. Minimal burden. Some of this could also be aberrant conduction. Longest run about 5 beats. * No significant pauses. * No diary. MTDD
== END ==
LOC: HO.CARD 07:12
PROVIDERS: PCP Internal Medicine; Visit Provider Internal Medicine
DX: I48.91 Unspecified atrial fibrillation (principal)
CPT/HCPCS: 93242

== ENCOUNTER → 2022-02-20 08:56 | Outpatient (BNVA) | payer MEDICARE, SELFPAY | PROVIDERS: PCP Internal Medicine; Visit Provider Internal Medicine Pulmonary Disease | DX: R06.09 Other forms of dyspnea (principal); J44.9 Chronic obstructive pulmonary disease, unspecified | CPT/HCPCS: 99212 ==

== ENCOUNTER 2022-03-19 10:43 | Outpatient (REF) | payer MEDICARE, SELFPAY ==
--- NOTE | 2022-03-19 17:24 | PFT_ITS ---
FLOWS: FEV1 84% of predicted at 2.43 L. FVC 88% of predicted at 3.56 L. FEV1 to FVC ratio of 0.68. Positive bronchodilator response. LUNG VOLUMES: Total lung capacity 84% of predicted at 5.81 L. Residual volume 104% of predicted at 2.63 L. Slow vital capacity 73% of predicted at 3.18 L. Expiratory reserve volume 49% of predicted at 0.57 L. Diffusion capacity is severely decreased, diffusion capacity adjusted, being moderately decreased after correction for alveolar ventilation. IMPRESSION: Mild to moderate obstructive ventilatory defect with positive bronchodilator response. Decreased expiratory reserve volume suggests extrathoracic restriction likely secondary to abdominal obesity. Decreased diffusion capacity suggests emphysema. MD SHAHNAZ Romano/MODL / [id number]
== END 2022-03-19 10:44 | disposition home or self-care (01) ==
LOC: HO.RESP 10:43
PROVIDERS: PCP Internal Medicine; Visit Provider Internal Medicine Pulmonary Disease
DX: J44.9 Chronic obstructive pulmonary disease, unspecified (principal)
CPT/HCPCS: 94060; 94727; 94729

== ENCOUNTER → 2022-03-28 14:11 | Outpatient (BNVA) | payer MEDICARE, SELFPAY | PROVIDERS: PCP Internal Medicine; Referring Provider Internal Medicine; Visit Provider Nurse Practitioner Family | DX: I48.20 Chronic atrial fibrillation, unspecified (principal); R06.09 Other forms of dyspnea; I25.10 Atherosclerotic heart disease of native coronary artery without angina pectoris; I10 Essential (primary) hypertension; I77.810 Thoracic aortic ectasia; J44.9 Chronic obstructive pulmonary disease, unspecified; I25.2 Old myocardial infarction; Z79.01 Long term (current) use of anticoagulants; Z79.899 Other long term (current) drug therapy; Z09 Encounter for follow-up examination after completed treatment for conditions other than malignant neoplasm | CPT/HCPCS: 99212 ==

== ENCOUNTER 2022-04-05 06:07 | Outpatient (REF) | payer MEDICARE, SELFPAY ==
[2022-04-05 13:24] LABS: Alanine Aminotransferase 16 U/L (0-40); Albumin Level 3.5 g/dL (3.5-5.0); Alkaline Phosphatase 131 U/L (39-117); Anion Gap 11 (12-20); Aspartate Amino Transferase 14 U/L (5-37); Bilirubin Total 0.8 mg/dL (0.0-1.0); Blood Urea Nitrogen 19 mg/dL (9-16); Calcium 8.3 mg/dL (8.4-10.2); Carbon Dioxide 26 mmol/L (22-29); Chloride 107 mmol/L (96-108); Estimated Glomerular Filt Rate > 60; Glucose Random 131 mg/dL (60-115); Potassium 3.6 mmol/L (3.3-5.1); Sodium 140 mmol/L (135-145); Thyroid Stimulating Hormone 4.68 uIU/mL (0.32-4.0); Total Protein 6.1 g/dL (6.5-8.0)
== END 2022-04-05 06:08 | disposition home or self-care (01) ==
LOC: HO.HMGCLDS 06:07
PROVIDERS: PCP Internal Medicine; Visit Provider Internal Medicine
DX: E89.0 Postprocedural hypothyroidism (principal); I48.91 Unspecified atrial fibrillation; R73.02 Impaired glucose tolerance (oral)
CPT/HCPCS: 36415; 80053; 84439; 84443

== ENCOUNTER → 2022-04-09 09:01 | Outpatient (BNVA) | payer MEDICARE, SELFPAY | PROVIDERS: PCP Internal Medicine; Visit Provider Internal Medicine | DX: E04.2 Nontoxic multinodular goiter (principal); E89.0 Postprocedural hypothyroidism; E55.9 Vitamin D deficiency, unspecified | CPT/HCPCS: 99212 ==

== ENCOUNTER 2022-04-11 07:48 | Outpatient (REF) | payer MEDICARE, SELFPAY ==
[2022-04-11 12:03] LABS: Digoxin 0.5 ng/mL (0.8-2.0)
== END 2022-04-11 07:49 | disposition home or self-care (01) ==
LOC: HO.HMGCLDS 07:48
PROVIDERS: PCP Internal Medicine; Visit Provider Nurse Practitioner Family
DX: I48.20 Chronic atrial fibrillation, unspecified (principal); Z79.899 Other long term (current) drug therapy
CPT/HCPCS: 36415; 80162

== ENCOUNTER → 2022-04-12 14:12 | Outpatient (BNVA) | payer MEDICARE, SELFPAY | PROVIDERS: PCP Internal Medicine; Visit Provider Nurse Practitioner Family | DX: Z09 Encounter for follow-up examination after completed treatment for conditions other than malignant neoplasm (principal); R60.9 Edema, unspecified; I48.20 Chronic atrial fibrillation, unspecified; I25.10 Atherosclerotic heart disease of native coronary artery without angina pectoris; I10 Essential (primary) hypertension; R06.09 Other forms of dyspnea; J44.9 Chronic obstructive pulmonary disease, unspecified; I77.810 Thoracic aortic ectasia | CPT/HCPCS: 99212 ==

== ENCOUNTER → 2022-04-24 09:11 | Outpatient (BNVA) | payer MEDICARE, SELFPAY | PROVIDERS: PCP Internal Medicine; Visit Provider Internal Medicine Pulmonary Disease | DX: J44.9 Chronic obstructive pulmonary disease, unspecified (principal); Z99.81 Dependence on supplemental oxygen | CPT/HCPCS: 99212 ==

== ENCOUNTER 2022-05-03 08:20 | Outpatient (REF) | payer MEDICARE, SELFPAY ==
--- NOTE | ~2022-05-03 | US_ITS ---
EXAMINATION: US THYROID CLINICAL INFORMATION: Nontoxic multinodular goiter. History of left thyroidectomy. COMPARISON: Thyroid ultrasound 05/04/2020 and 05/18/2019. Ultrasound-guided thyroid biopsy 07/07/2020. TECHNIQUE: Linear transducer grayscale and color Doppler examination with attention to the region of the thyroid. FINDINGS: SIZE: Measurements of the solitary right lobe and nodules are given in sagittal, anteroposterior and transverse dimensions respectively. Right Thyroid Lobe: 5.1 x 2.1 x 1.4 cm, volume 7.8 mL. Previously 3.6 x 1.6 x 1.6 cm, volume 4.8 mL. Parenchyma: The gland echotexture is heterogeneous. Thyroid vascularity is normal. Left Thyroid Lobe: Surgically absent. Isthmus: 0.4 cm in maximum AP dimension. Previously 0.3 cm. Estimated total number of nodules greater than or equal to 1 cm: 1. Hydraulics Engineer nodules are described as follows: 1. Location: Right lower pole. Size: 1.1 x 0.7 x 1.0 cm, volume 0.44 mL. Previously: 0.9 x 0.5 x 0.7 cm, volume 0.16 mL. Nodule characteristics: Composition: Spongiform (0). ACR TI-RADS total points: 0. ACR TI-RADS category: 1. Significant change in size (>/= 20% in 2 dimensions and minimal increase of 2 mm or 50% or greater increase in volume): None. Change in features: None. Change in ACR TI-RADS risk category: None applicable. 2. Location: Right upper pole. Size: 0.8 x 0.5 x 0.5 cm, volume 0.09 mL. Previously: 0.8 x 0.4 x 0.5 cm, volume 0.08 mL. Nodule characteristics: Composition: Solid (2). Echogenicity: Hyperechoic (1). Shape: Not taller than wide (0). Margins: Smooth (0). Echogenic Foci: None (0). ACR TI-RADS total points: 3. ACR TI-RADS category: 3. Significant change in size (>/= 20% in 2 dimensions and minimal increase of 2 mm or 50% or greater increase in volume): None. Change in features: None. Change in ACR TI-RADS risk category: Not applicable. LEFT THYROIDECTOMY BED: No thyroid tissue visualized. NODES: No lymphadenopathy is seen in the tissue surrounding the thyroid gland. US/US thyroid IMPRESSION: 1. Small nonsuspicious nodules in the right lobe. The left lobe has been surgically removed. 2. TR1 (0 point) and TR 2 (2 points): 3. TR4 (4-6 points): FNA if more than or equal to 1.5 cm in maximum dimension, followup ultrasound in 1, 2, 3 and 5 years if 1 to 1.4 cm in maximum dimension. 4. TR5 (more than or equal to 7 points): FNA if more than or equal to 1 cm in maximum dimension, followup ultrasound every year for 5 years if 0.5 to 0.9 cm in maximum dimension.
== END 2022-05-03 08:21 | disposition home or self-care (01) ==
LOC: HO.HMGCX 08:20
PROVIDERS: PCP Internal Medicine; Visit Provider Internal Medicine
DX: E04.2 Nontoxic multinodular goiter (principal)
CPT/HCPCS: 76536

== ENCOUNTER 2022-05-22 05:52 | Emergency (ER) | payer MEDICARE, SELFPAY ==
[2022-05-22 06:11] VITALS: BP 129/81; PULSE 92; RESP 16; TEMP 36.9; O2SAT 95; BMI 31.9
--- NOTE | 2022-05-22 07:50 | ED_ITS ---
HPI - Animal Bite General Chief Complaint: Animal Bite Stated Complaint: scratched by cat, on blood thinners Time Seen by Provider: 05/22/22 07:38 Source: patient History of Present Illness HPI narrative: Patient states he was scratched his left hand by his own cat last , 5 days ago. Last night it started to get more tender and inflamed. He was seen at 2 urgent cares but due to his pen allergy in his multiple medications, they did not put him on antibiotics. This was his own cat which he states he picked up while sleeping and scared the cat who scratched him. The cat is up-to-date on all vaccinations including rabies. Patient denies fevers. No pain in his proximal arm or axilla. No other significant planes. No active bleeding Related Data Home Medications Medication Instructions Recorded Confirmed adalimumab 40 mg/0.8 mL 40 mg subcut Q2W 04/01/20 04/13/22 subcutaneous syringe kit (Humira) Previous Rx's Medication Instructions Recorded metoprolol tartrate 25 mg tablet 50 mg PO BID 90 days #360 tabs 06/07/21 cyanocobalamin (vitamin B-12) 1,000 mcg PO DAILY #90 tabs 06/20/21 1,000 mcg tablet (Vitamin B-12) cholecalciferol (vitamin D3) 50 50 mcg PO DAILY 30 days #30 caps 06/28/21 mcg (2,000 unit) capsule doxycycline hyclate 100 mg tablet 100 mg PO Q12H 6 days #12 tabs 02/02/22 albuterol sulfate 90 mcg/actuation 2 puff inhalation Q4-6H PRN 02/07/22 aerosol inhaler (ProAir HFA) shortness of breath or wheezing #8.5 grams OXYGEN 2 L NC keep sats > 90 #1 ea 02/12/22 PORTABLE OXYGEN TANK #1 ea 02/22/22 digoxin 125 mcg (0.125 mg) tablet 125 mcg PO DAILY 30 days #90 tabs 02/26/22 atorvastatin 80 mg tablet 80 mg PO BEDTIME #90 tabs 04/05/22 clopidogrel 75 mg tablet 75 mg PO DAILY #90 tabs 04/05/22 diltiazem HCl 300 mg 300 mg PO DAILY #90 caps 04/05/22 capsule,extended release 24 hr levothyroxine 50 mcg tablet 50 mcg PO DAILY 30 days #30 tabs 04/09/22 compress.stocking,knee,reg,med #2 ea 04/10/22 budesonide 160 mcg-glycopyr 9 2 inh inhalation BID 30 days #1 ea 04/24/22 mcg-formot 4.8 mcg/actuation HFA inhaler (Breztri Aerosphere) apixaban 5 mg tablet (Eliquis) 5 mg PO BID #60 tabs 05/09/22 levofloxacin 750 mg tablet 750 mg PO DAILY #9 tabs 05/22/22 metronidazole 500 mg tablet 500 mg PO TID #30 tabs 05/22/22 Allergies Allergy/AdvReac Type Severity Reaction Status Date / Time hydrochlorothiazide Allergy Severe Anaphylaxis Verified 04/24/22 09:19 lisinopril Allergy Severe Anaphylaxis Verified 04/24/22 09:19 Penicillins Allergy Severe Anaphylaxis Verified 04/24/22 09:19 Review of Systems Constitutional: Comments: No fevers or chills Respiratory: Comments: No respiratory symptoms Neurologic: Comments: No weakness numbness or paresthesias [facility] Past Medical History Medical History Abnormal SPEP Ascending aorta dilatation Atrial fibrillation Bronchitis Chest discomfort COPD (chronic obstructive pulmonary disease) Coronary artery disease HOLLOWAY (dyspnea on exertion) Former smoker Ground glass opacity present on imaging of lung Hemoptysis Hypercholesterolemia Hypertension ILD (interstitial lung disease) Impaired glucose tolerance Multinodular thyroid Obesity (BMI 30-39.9) Obesity (BMI 30-39.9) Postoperative hypothyroidism Psoriasis Pulmonary nodules/lesions, multiple Right renal stone Stable angina Swelling of left lower extremity Thyroid nodule Tubular adenoma of colon (~2021) Vitamin D deficiency Wedge compression fracture of T9 vertebra (~2018) Surgical History History of appendectomy History of cardioversion (~2020) History of colonoscopy History of heart artery stent (~2019) History of lung biopsy (~2016) History of partial thyroidectomy (~2020) History of tonsillectomy Family History Family History Father Heart disease Mother No problems noted. Paternal Grandfather Heart disease Social History Social History Household Members: Spouse Housing: House Do you presently have visiting nurse or other home services: No Alcohol intake: never Patient Tobacco Use Status: Former Tobacco user Quit Date: 2014 Tobacco use type: Cigarette Years Smoked: 50 Smoked in Last 30 Days: No e-Cigarette/Vaping Use: Never Used Second Hand Smoke Exposure: No Use of substances other than those prescribed or required for medical reasons: No Advance Directives: No Advance Directives Date on File: 09/21/20 service: Yes Current occupational status: retired Cognitive needs: No Hearing needs: No Vision needs: Yes Physical Exam ED Vital Signs: Vital Signs - 24 hr 05/22/22 06:11 Temperature 98.4 F Pulse Rate 92 Respiratory Rate 16 Blood Pressure 129/81 Pulse Oximetry 95 Oxygen Delivery Method Room Air BMI result Body Mass Index 31.9 Const Other: Awake and alert. No acute distress. Ambulatory without difficulty Chest Other: No axilla tenderness or lymphadenopathy Resp Other: No respiratory distress Skin Other: Dorsum of left hand with erythema and mild warmth. No fluctuance or drainage. It is covered with Steri-Strips and there is no active bleeding Neuro Other: Sensation intact, motor intact Extrem Other: Full range of motion of left hand and fingers. No evidence of tendon injury or infection Medical Decision Making Medical Decision Making MDM Narrative: Patient with cat scratch and now secondary infection. Treatment complicated by patient's penicillin allergy. He is not allergic to quinolones or Flagyl however. Per guideline recommendations, I will double cover him with Levaquin and metronidazole. He is stable for discharge home and safe on p.o. medications. He understands he needs return if not improving significantly on antibiotics over the next 2-3 days Discharge Plan Discharge Clinical Impression: Cat bite, Cellulitis Patient Disposition: Home, Self-Care Instructions: Animal Bite (ED), Cellulitis (ED) Additional Instructions: For cat scratch, he need to be on 2 separate antibiotics. Taken for the full 10 days. Return if the infection appears to be getting worse. Prescriptions: New levofloxacin 750 mg tablet 750 mg PO DAILY Qty: 9 0RF metronidazole 500 mg tablet 500 mg PO TID Qty: 30 0RF No Action metoprolol tartrate 25 mg tablet 50 mg PO BID 90 Days Qty: 360 3RF cyanocobalamin (vitamin B-12) [Vitamin B-12] 1,000 mcg tablet 1,000 mcg PO DAILY Qty: 90 3RF (DME) OXYGEN 2 L NC keep sats > 90 See Rx Instructions .Route .MEDSUPPLY Qty: 1 0RF Rx Instructions: As directed (DME) PORTABLE OXYGEN TANK See Rx Instructions .Route .MEDSUPPLY Qty: 1 0RF Rx Instructions: As directed digoxin 125 mcg (0.125 mg) tablet 125 mcg PO DAILY 30 Days Qty: 90 3RF atorvastatin 80 mg tablet 80 mg PO BEDTIME Qty: 90 2RF diltiazem HCl 300 mg capsule,extended release 24hr 300 mg PO DAILY Qty: 90 3RF clopidogrel 75 mg tablet 75 mg PO DAILY Qty: 90 3RF Eliquis 5 mg tablet 5 mg PO BID Qty: 60 5RF doxycycline hyclate 100 mg Tablet 100 mg PO Q12H 6 Days Qty: 12 0RF Humira 40 mg/0.8 mL syringe kit 40 mg subcut Q2W Hold Instructions: hold for one week (DME) compress.stocking,knee,reg,med Misc See Rx Instructions .Route Qty: 2 0RF Rx Instructions: As directed 20-30 mm HG albuterol sulfate [ProAir HFA] 90 mcg/actuation HFA aerosol inhaler 2 puff inhalation Q4-6H PRN (Reason: shortness of breath or wheezing) Qty: 8.5 0RF cholecalciferol (vitamin D3) 50 mcg (2,000 unit) capsule 50 mcg PO DAILY 30 Days Qty: 30 11RF levothyroxine 50 mcg tablet 50 mcg PO DAILY 30 Days Qty: 30 11RF Breztri Aerosphere 160-9-4.8 mcg/actuation HFA aerosol inhaler 2 inh inhalation BID 30 Days Qty: 1 6RF
[2022-05-22] MEDS: levoFLOXacin 750 MG TABLET PO (08:16)
[2022-05-22] MEDS: metroNIDAZOLE 500 MG TABLET PO (08:16)
[2022-05-22] MEDS: Diphth,Pertus(ACell),Tet Adult 0.5 ML SYRINGE IM (08:25)
[2022-05-22 08:29] VITALS: BP 120/78; PULSE 82; RESP 20; TEMP 36.6; O2SAT 94
== END 2022-05-22 08:32 | disposition home or self-care (01) ==
PROVIDERS: Emergency Provider Emergency Medicine; PCP Internal Medicine
DX: L03.114 Cellulitis of left upper limb (principal); S61.452D Open bite of left hand, subsequent encounter; W55.01XD Bitten by cat, subsequent encounter
CPT/HCPCS: 90471; 90715; 99284

== ENCOUNTER 2022-06-04 09:48 | Outpatient (RCR) | payer MEDICARE, SELFPAY ==
[2022-06-04 10:32] VITALS: BP 106/80; PULSE 68
[2022-06-12 08:58] VITALS: BP 112/60; BP 118/64
[2022-06-14 08:27] VITALS: BP 112/68; BP 124/78
[2022-06-21 07:35] VITALS: BP 118/74; BP 98/66
[2022-06-26 08:04] VITALS: BP 108/68
[2022-06-28 07:26] VITALS: BP 108/70; BP 90/60
[2022-07-05 07:16] VITALS: BP 100/62; BP 108/60
[2022-07-12 07:15] VITALS: BP 112/66; BP 88/56
[2022-07-17 08:47] VITALS: BP 124/72; BP 126/68
[2022-07-19 07:24] VITALS: BP 106/70; BP 122/62
[2022-07-24 07:08] VITALS: BP 110/52; BP 92/64
[2022-07-31 07:07] VITALS: BP 120/55
[2022-08-07 07:02] VITALS: BP 110/66; BP 112/76
[2022-08-09 07:23] VITALS: BP 110/60; BP 112/60
[2022-08-14 08:00] VITALS: BP 100/60; BP 104/52
[2022-08-16 09:45] VITALS: BP 108/60; BP 108/64
[2022-08-21 08:19] VITALS: BP 110/68; BP 128/80
[2022-08-28 07:05] VITALS: BP 114/62; BP 128/74
[2022-08-30 07:56] VITALS: BP 108/62; BP 118/64
[2022-09-04 07:09] VITALS: BP 110/60; BP 110/70
[2022-09-11 07:36] VITALS: BP 120/90; BP 125/65
[2022-09-13 07:00] VITALS: BP 100/62; BP 110/64
[2022-09-20 08:11] VITALS: BP 116/60; BP 120/70
--- NOTE | 2022-09-20 10:18 | MHC.PR.IN ---
[address] [phone] F: [phone] Pulmonary Rehabilitation Individual Treatment Plan Pablito Everett is a 76 year old (M) who was referred to the Pulmonary Rehabilitation program by Kevon Casas. This patient who has a primary diagnosis of COPD will begin pulmonary rehabilitation with monitored exercise and education to optimize both physical and social performance, autonomy, increase strength and endurance, and control dypsnea. The following information was gathered from the patient: Smoking History Current smoking status: Former Smoker Years smoked: 50 Last time smoked: 2014 Quit Date: 2014 Assistance with quitting needed: Past Medical History Medical History: Hypertension Myocardial Infarction Chest Surgery COPD Vision Problems Surgeries: No Past Pulmonary Hospitalizations # of hospitalizations in the past year: 1 # of ER vists due to breathing troubles in the past year: 1 Current Pulmonary Medications Breztri 80 mg Daily Digoxin 125mcg Daily Levothyroxine 50mcg Vitamin D3 50mcg Allergy History Allergies: penicillin Current Oxygen Use Supplemental Oxygen Device Used: Concentrator Cylinders Liter flow: 2LPM How often: Only when I need it Pulmonary History Cough: No Sputum: No Sleep device: No Other pulmonary devices: Peak flow meter: No Nebulizer: No Suction: No Ventilator: No Secretion clearance: No PEP: No Influenza vaccine: Yes Pneumonia vaccine: Yes Patient Questionaire Scores MRC Dyspnea Scale (mRC): 1 CAT Score: 7 PHQ-9 Score: 1 Pulmonary Function Test and Vital Signs Pulmonary Function Test Date of PFT 03/19/22 FVC Actual 2.94% FVC Predicted 4.02% FEV1 Actual 1.97% FEV1 Predicted 2.89% FEV1/FVC Actual 67% FEV1/FVC Predicted 72% DLCO 10.55 Vital Signs Heart Rate 68 Blood Pressure 106/80 SpO2 95% Respiratory Rate 12 unlabored Six Minute Walk Test Supplemental Oxygen O2 L/min: 2LPM FiO2: Resting Vitals SpO2: 87 on room air% BP: 106/80mmHg HR: 68 bpm Total Distance 762 Number/ Time of Rests (sec) 0 VAN 3 METS 2.10 SpO2 87 HR (bpm) 113 MPH 1.44 Meters/Minute 39 Post-walk Vitals SpO2: 96 BP: 112/68 HR: 73 Performance Observations Walked at a moderate steady pace without an assistive device, Did not stop to rest. RPD 3 Pulmonary Rehabilitation Plan Topic Problem Goal Plan Comment Education Knowledge deficit of disease self management strategies Ineffective control of dyspnea Exacerbation prevention and management Home exercise program Respiratory medication Hypoxia Hypoxemia No portable oxygen Poor knowledge of oxygen use and safety SpO2 >90 Monitor oxygen saturation with rest and exercise Educate appropriate use of oxygen at rest and with activity Educate on oxygen safety Ed states he only uses O2 if he needs it, discussed with Ed the reasons for proper oxygenation at rest and with exertion Psychosocial N/A, PHQ-9 score <5 No reported psychosocial impairments Review screening results Benefits of exercise Ed denies anxiety and depression Activities of Daily Living N/A ADL performance with pacing and pursed lip breathing Educate on pursed lip breathing and pacing with stairs and activity Nutrition & Weight Management Overweight BMI 19 to 30 Lose weight during program Prevent further weight gain Tobacco Managment NA %0 yr smoker quit 2014 Medication N/A, pt reports compliance w/ prescribed medications Importance of medication compliance Medication schedule Inhaled Medication Secretion Management N/A, pt able to self manage secretions Ed uses Yusraztri, technique is good Exercise & Fitness No regular exercise Pulmonary Rehab 2-3x/week Weight or resistance training 2-3x/week Aerobic Exercise: 30-60mins x 9 weeks Review benefits & core components of exercise program Review how to measure and monitor dyspnea level Review exercise safety guidelines Review frequency and duration of exercise Review exercise intensity VAN RPD 3-4/10 Review home exercise guidelines 5 minute warm up on stepper Diabetes Management Does patient have DM?: No Diabetes Type: Current Blood Glucose Level: Current A1C Level: Self Check: Patient's Goals and Concerns . 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 The treatment plan and goals support the patient's needs and abilities, and thereby recommend that the exercise plan be completed as documented. Special precautions or modifications to the treatment plan include:
[2022-09-27 08:09] VITALS: BP 120/64; BP 90/60
[2022-09-28 08:37] VITALS: BMI 31.2
--- NOTE | 2022-09-28 08:53 | MHC.PR.RE ---
[address] [phone] F: [phone] Pulmonary Rehabilitation Reassessment Pablito Everett is a 76 year old (M) who was referred to the Pulmonary Rehabilitation program by Kevon Casas. This patient who has a primary diagnosis of COPD has completed 22 sessions of the pulmonary rehabilitation program thus far with monitored exercise and education to optimize both physical and social performance, autonomy, increase strength and endurance, and control dypsnea. They were evaluated on . Reassessment Type: 30-day reassessment Topic Education/ Progress Progress Comments Education Demonstrates disease self-management strategies Using medications as directed Cat <10 Pt uses medications as prescribed Hypoxia Current oxygen Use: 2lpm with exertion Demonstrates knowledge of O2 prescription at rest & with activity Demonstrates knowledge of O2 safety Pt continues to use 2lpm with exercise. Pt uses o2 as prescribed. Psychosocial PHQ-9 Score: 1 Pt states he feels good and no changes to his PHQ-9 score Activities of Daily Living Progressing Pt continues to manage ADL's and control of dyspnea with the use of 2lpm o2, pursed lip breathing techniques, and diaphragmatic breathing. Nutrition & Weight Management Current weight: 205 BMI: 31.2 Weight change: Weight Stable Progressing pt maintains weight with exercise and nutrition Tobacco Stages of Change: Maintenance Tobacco Use: Cigerettes/Day: Any nicotine replacement: Any cessation medication: Smoking quit date: Smokeless tobacco use and amount: former smoker. Quit 2014 Medication Met, taking 100% of time Breztri 80 mg Daily Digoxin 125mcg Daily Levothyroxine 50mcg Vitamin D3 50mcg Prednisone Inhaled Medication Patient verbalizes correct technique of: MDI: DPI: Yes SMI: NEBULIZER: Secretion Management Patient provides adequate return demonstration of: Controlled cough: Parker cough: Acapella/ PEP Device: CPT: Sputum management: Exercise & Fitness Aerobic Exercise Frequency: 2X weekly Target heart range: Heart rate range: 93-123 SpO2 Range: 88%-92 VAN RPD: 1-3.5 Time (minutes): 42 O2 use with exercise: Current HEP: 2lpm Pt continues to increase METs and time with exercise. Treadmill L1.5/Grade 1.0 Mets 2.3 for 12 minutes Stepper L1.5/ Mets 2.9 15 minutes recumbent bike L1.5 minutes 15 Spotter Driver Review I have reviewed the outcome re-assessment and treatment plan. The treatment plan and goals support the patient's needs and abilities, and thereby recommend that the exercise plan be completed as documented. Special precautions or modifications to the treatment plan include:
[2022-10-02 11:58] VITALS: BP 106/80; BP 90/65
[2022-10-04 11:25] VITALS: BP 86/52; BP 92/62
[2022-10-16 07:16] VITALS: BP 112/68; BP 94/60
[2022-10-17 08:04] VITALS: BMI 32.0
--- NOTE | 2022-10-17 13:36 | MHC.PR.RE ---
[address] [phone] F: [phone] Pulmonary Rehabilitation Reassessment Pabilto Everett is a 76 year old (M) who was referred to the Pulmonary Rehabilitation program by Kevon Casas. This patient who has a primary diagnosis of COPD has completed 22 sessions of the pulmonary rehabilitation program thus far with monitored exercise and education to optimize both physical and social performance, autonomy, increase strength and endurance, and control dypsnea. They were evaluated on 06/04/22. Reassessment Type: 90-day reassessment Topic Education/ Progress Progress Comments Education Using medications as directed Cat <10 Pt uses medications as prescribed Hypoxia Current oxygen Use: 3lpm Demonstrates knowledge of O2 prescription at rest & with activity Demonstrates knowledge of O2 safety Pt using per Rx 100% of time Ed knows his oxygen prescription, monitors his SpO2 at home. Psychosocial PHQ-9 Score: 1 Pt states he feels good and no changes to his PHQ-9 score Activities of Daily Living Management of ADL with Control of Dyspnea Goal Met Pt continues to manage ADL's and control of dyspnea with the use of 2lpm O2, pursed lip breathing techniques, and diaphragmatic breathing. Nutrition & Weight Management Current weight: 205 BMI: 32 Weight change: Weight Loss 4lbs Progressing Patients goal is to lose weight, will offer pet caregiver referral. Tobacco Stages of Change: Maintenance Tobacco Use: No Cigerettes/Day: Any nicotine replacement: No Any cessation medication: No Smoking quit date: Smokeless tobacco use and amount: Smoke free since 2014 Medication Met, taking 100% of time Breztri 2puffs Bid Digoxen 125mcg Daily Levothyroxine 50mcg Daily Vitamin D3 Daily Vitamin B12 1000mcg Clopidogrel 75mg Daily Metroprolol 25mg 2 tabs BID Eliquis 5mg BID Atorvastin 80mg Daily Humeria once a week Diltizem 3oomg Daily None Ed takes meds as prescribed. Inhaled Medication Patient verbalizes correct technique of: MDI: N/A DPI: Yes SMI: N/A NEBULIZER: N/A Secretion Management Patient provides adequate return demonstration of: Controlled cough: N/A Parker cough: Acapella/ PEP Device: N/A CPT: N/A Sputum management: No change ED states he rarely coughs or has secretions. Exercise & Fitness Aerobic Exercise Frequency: 2X weekly Target heart range: 123 Heart rate range: 76-123 SpO2 Range: 88%-92 VAN RPD: 1-3.5 Time (minutes): 42 O2 use with exercise: 2LPM Current HEP: 2lpm Recumb L1.5, Mets 2.0, Time 10 minutes Pt was unable to progress during this time because of high humidity. UBE L1.5, METS 2.6, 12min Nustep, L1.5, METS 2.6, Time 12 minutes Middleware Architect Review I have reviewed the outcome re-assessment and treatment plan. The treatment plan and goals support the patient's needs and abilities, and thereby recommend that the exercise plan be completed as documented. Special precautions or modifications to the treatment plan include:
[2022-10-18 07:00] VITALS: BP 124/72; BP 90/58
[2022-10-30 10:33] VITALS: BP 110/58; BP 110/62
[2022-11-01 09:12] VITALS: BP 102/60; BP 98/62
[2022-11-06 08:24] VITALS: BP 100/52; BP 102/58
[2022-11-08 08:35] VITALS: BP 100/64
[2022-11-13 11:27] VITALS: BP 114/68; BP 120/72
[2022-11-13 12:47] VITALS: BMI 32.0
--- NOTE | 2022-11-13 12:52 | MHC.PR.RE ---
[address] [phone] F: [phone] Pulmonary Rehabilitation Reassessment Pablito Everett is a 76 year old (M) who was referred to the Pulmonary Rehabilitation program by Kevon Casas. This patient who has a primary diagnosis of COPD has completed 28 sessions of the pulmonary rehabilitation program thus far with monitored exercise and education to optimize both physical and social performance, autonomy, increase strength and endurance, and control dypsnea. They were evaluated on 11/13/22. Reassessment Type: 120-day reassessment Topic Education/ Progress Progress Comments Education Using medications as directed Cat <10 Pt uses medications as prescribed Hypoxia Current oxygen Use: 2lpm with exertion Demonstrates knowledge of O2 prescription at rest & with activity Demonstrates knowledge of O2 safety Pt using per Rx 100% of time Ed knows his oxygen prescription, monitors his SpO2 at home. Pt uses 02 as prescribed Psychosocial PHQ-9 Score: 1 Pt states he feels good and no changes to his PHQ-9 score Activities of Daily Living Management of ADL with Control of Dyspnea Goal Met Pt continues to manage ADL's and control of dyspnea with the use of 2lpm O2, pursed lip breathing techniques, and diaphragmatic breathing. Nutrition & Weight Management Current weight: 205 BMI: 32 Weight change: Weight Stable 4lbs Progressing Patients goal is to lose weight, will offer bone grinder referral. Tobacco Stages of Change: Maintenance Tobacco Use: No Cigerettes/Day: Any nicotine replacement: No Any cessation medication: No Smoking quit date: Smokeless tobacco use and amount: Smoke free since 2014 Medication Met, taking 100% of time Breztri 2puffs Bid Digoxen 125mcg Daily Levothyroxine 50mcg Daily Vitamin D3 Daily Vitamin B12 1000mcg Clopidogrel 75mg Daily Metroprolol 25mg 2 tabs BID Eliquis 5mg BID Atorvastin 80mg Daily Humeria once a week Diltizem 3oomg Daily None Ed takes meds as prescribed. Inhaled Medication Patient verbalizes correct technique of: MDI: N/A DPI: Yes SMI: N/A NEBULIZER: N/A Secretion Management Patient provides adequate return demonstration of: Controlled cough: N/A Parker cough: Acapella/ PEP Device: N/A CPT: N/A Sputum management: No change ED states he rarely coughs or has secretions. Exercise & Fitness Aerobic Exercise Frequency: 2X weekly Target heart range: 123 Heart rate range: 76-123 SpO2 Range: 88%-92 VAN RPD: 1-3.5 Time (minutes): 60 O2 use with exercise: 2LPM Current HEP: 2lpm Nustep L1.5 20 min RPD 3 Mets 2.9 UBE L1.7 Mets 3.0 20 minutes RPD 3 Recumbent bike L1.6 mets 2.4 RPD 3 20 minutes Pt has increased time/mets/levels throughout sessions. Applicator Sprayer Review I have reviewed the outcome re-assessment and treatment plan. The treatment plan and goals support the patient's needs and abilities, and thereby recommend that the exercise plan be completed as documented. Special precautions or modifications to the treatment plan include:
[2022-11-15 09:03] VITALS: BP 102/64; BP 104/60
[2022-11-27 09:17] VITALS: BP 124/62; BP 98/52
[2022-11-29 10:57] VITALS: BP 108/66; BP 94/62
[2022-12-06 07:00] VITALS: BP 102/48; BP 104/58
[2022-12-11 13:08] VITALS: BP 104/58; BP 104/64
[2022-12-13 07:26] VITALS: BMI 32.0
--- NOTE | 2022-12-13 07:35 | MHC.PR.DC ---
[address] [phone] F: [phone] Pulmonary Rehabilitation Discharge Pablito Everett is a 77 year old (M) who was referred to the Pulmonary Rehabilitation program by Kevon Casas. This patient who has a primary diagnosis of COPD has completed 36 sessions of the pulmonary rehabilitation program with monitored exercise and education to optimize both physical and social performance, autonomy, increase strength and endurance, and control dypsnea. They were evaluated on 12/11/22. Discharge summary and tests are below. Initial MRC Score: 1 Discharge MRC Score: 1 Six Minute Walk Test Initial 6MWT Discharge 6MWT Supplemental Oxygen O2 L/min: 2LPM FiO2: O2 L/min: 4lpm FiO2: 36% Resting Vitals SpO2: 87 on room air% BP: 106/80mmHg HR: 68 bpm SpO2: 92% BP: 120/72mmHg HR: 84 bpm Total Distance (ft) [phone] Number/ Time of Rests (sec) 0 0 VAN 3 4 Walk Vitals SpO2: 87 HR: 113 SpO2: 89 HR: 102 Post-Walk Vitals SpO2: 96 BP: 112/68 HR: 73 SpO2: 91 BP: 104/64 HR: 74 Performance Observations Walked at a moderate steady pace without an assistive device, Did not stop to rest. RPD 3 Pt walked unassisted on 4lpm continuous o2 for 6 minutes. Exercise Assessment on Nustep: Pre-exercise Post-exercise SpO2 95 92 Heart Rate 91 110 VAN 3 3 METS 2.9 3.1 Exercise Assessment on UBE: Pre-exercise Post-exercise SpO2 93 94 Heart Rate 116 90 VAN 3.5 3 METS 2.5 3.2 Exercise Assessment on Recumbent Bike: Pre-exercise Post-exercise SpO2 93 92 Heart Rate 82 92 VAN 3 3 METS 2.07 2.4 Topic Education/Progress Progress Comments Education Demonstrates disease self-management strategies Using medications as directed Mobilizes secretions successfully Demonstrates strategies for anxiety and depression management Goal met. Educated on taking sp02 and vitals/ o2 script/ respiratory meds proper use, spacer teaching and cleaning. Educated on normal A & P of normal lung vs diseased lung. Hypoxia Current oxygen Use: 2lpm Demonstrates knowledge of O2 prescription at rest & with activity Demonstrates knowledge of O2 safety Pt non adherent; notify MD Pt using per Rx 100% of time Goal met. Pt uses supplemental oxygen as prescribed Psychosocial PHQ-9 Score: 1 Met Activities of Daily Living Management of ADL with Control of Dyspnea Appropriate Stair Climbing Goal Met Progressing Not Progressing Pt continues to manage ADL's and control of dyspnea with the use of 2lpm O2, pursed lip breathing techniques, and diaphragmatic breathing. Nutrition and Weight Managment Current weight: 205 BMI: 32 Weight change: Weight Stable 4lbs Progressing Pt progressing and will continue at home with education and knowledge provided in program Tobacco Stages of Change: Maintenance Tobacco Use: No Cigerettes/Day: Any nicotine replacement: No Any cessation medication: No Smoking quit date: Smokeless tobacco use and amount: Smoke free since 2014 Medications Met, taking 100% of time Met. Ed takes meds as prescribed. Inhaled Medications Patient verbalizes correct technique of: MDI: Yes DPI: Yes SMI: N/A NEBULIZER: Yes Secretion Management Patient provides adequate return demonstration of: Controlled cough: Yes Parker cough: Acapella/ PEP Device: N/A CPT: N/A Sputum management: No change ED states he rarely coughs or has secretions. Exercise and Fitness Aerobic Exercise Frequency: 2X weekly Target heart range: 123 Heart rate range: 76-123 SpO2 Range: 88%-92 VAN RPD: 1-3.5 Time (minutes): 60 O2 use with exercise: 2LPM Current HEP: 2lpm Nustep L1.5 20 min RPD 3 Mets 2.9 UBE L1.7 Mets 3.0 20 minutes RPD 3 Recumbent bike L1.6 mets 2.4 RPD 3 20 minutes Pt has increased time/mets/levels throughout sessions. Discharge Assessment: Pt has successfully completed pulmonary rehab. He would like to continue in our maintenance program. Discharge Reason: Completion of 36 sessions. Discharge Recommendation: :
== END 2022-12-13 07:36 | disposition home or self-care (01) ==
LOC: HO.PR 09:48
PROVIDERS: PCP Internal Medicine; Visit Provider Internal Medicine Pulmonary Disease
DX: J43.9 Emphysema, unspecified (principal)
CPT/HCPCS: 94625

== ENCOUNTER → 2022-06-26 09:58 | Outpatient (BNVA) | payer MEDICARE, SELFPAY | PROVIDERS: PCP Internal Medicine; Visit Provider Internal Medicine Pulmonary Disease | DX: J44.9 Chronic obstructive pulmonary disease, unspecified (principal); R91.1 Solitary pulmonary nodule; Z99.81 Dependence on supplemental oxygen; Z87.891 Personal history of nicotine dependence | CPT/HCPCS: 99212 ==

== ENCOUNTER 2022-07-06 09:26 | Outpatient (REF) | payer MEDICARE, SELFPAY ==
--- NOTE | ~2022-07-06 | FL_ITS ---
EXAMINATION: FL BARIUM SWALLOW CLINICAL INFORMATION: Dysphagia. COMPARISON: CT of the chest 02/01/2022. TECHNIQUE: Barium swallow examination is performed using fluoroscopic evaluation in addition to multiple fluoroscopic spot views. The patient is imaged both upright and prone and using both thick and thin sulfate along with effervescent granules. Fluoroscopy time: 1.7 minutes DAP: 12.05 Gycm2 Images: 52 FINDINGS: Following oral administration of thick barium and effervescent granules there is normal propagation bolus from the oral cavity through the pharynx into esophagus without any evidence of obstruction, narrowing or stricture. There is no obstruction, stricture or extrinsic compression. On administration of barium coated turkey there is normal propagation of bolus from the oral cavity through the pharynx into esophagus. FL/FL barium swallow IMPRESSION: Unremarkable barium swallow exam.
--- NOTE | ~2022-07-06 | XR_ITS ---
EXAMINATION: XR SHOULDER, LEFT CLINICAL INFORMATION: Pain. COMPARISON: None available. TECHNIQUE: AP external rotation, Grashey, scapular Y, and axillary views of the left shoulder. FINDINGS: Bony alignment is normal. There is mild bony demineralization. The glenohumeral joint is intact and shows mild peripheral osteophyte formation. The acromioclavicular and coracoclavicular intervals are normal. There is mild osteoarthritic change of the acromioclavicular joint. No fracture or dislocation is seen. There is no abnormal soft tissue calcification or foreign body. There is cortical irregularity of the greater tuberosity of the proximal left humerus, with subcortical cyst formation. There is no left pneumothorax. XR/XR shoulder LT min 2V IMPRESSION: 1. 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 2. Findings consistent with mild left rotator cuff impingement. No ml calcific tendinitis is seen.
== END 2022-07-06 09:27 | disposition home or self-care (01) ==
LOC: HO.XRAY 09:26
PROVIDERS: Visit Provider Internal Medicine
DX: M25.512 Pain in left shoulder (principal); R13.19 Other dysphagia
CPT/HCPCS: 73030; 74220

== ENCOUNTER → 2022-07-27 08:42 | Outpatient (BNVA) | payer MEDICARE, SELFPAY | PROVIDERS: PCP Internal Medicine; Visit Provider Physician Assistant | DX: M19.012 Primary osteoarthritis, left shoulder (principal) | CPT/HCPCS: 99202 ==

== ENCOUNTER → 2022-07-30 10:01 | Outpatient (BNVA) | payer MEDICARE, SELFPAY | PROVIDERS: PCP Internal Medicine; Referring Provider Internal Medicine; Visit Provider Internal Medicine Cardiovascular Disease | DX: I20.8 Other forms of angina pectoris (principal); R06.09 Other forms of dyspnea; I10 Essential (primary) hypertension; I48.21 Permanent atrial fibrillation; J44.9 Chronic obstructive pulmonary disease, unspecified; Z79.01 Long term (current) use of anticoagulants; Z79.02 Long term (current) use of antithrombotics/antiplatelets; Z99.81 Dependence on supplemental oxygen | CPT/HCPCS: 93005; 99212 ==

== ENCOUNTER 2022-08-10 05:07 | Emergency (ER) | payer MEDICARE, SELFPAY ==
--- NOTE | ~2022-08-10 | CT_ITS ---
EXAMINATION: CT CHEST WITHOUT CONTRAST CLINICAL INFORMATION: Worsening opacities. Question pneumonia. COMPARISON: Chest radiograph from today. CT 02/01/2022. TECHNIQUE: Multidetector volumetric CT imaging of the chest was done. Axial MIP volume rendering provided. Sagittal and coronal reformatted images were obtained. This CT examination was performed using dose optimization techniques as appropriate, variously including the following: *Automated exposure control *Adjustment of mA and/or kV according to patient size (this includes techniques or standardized protocols for targeted exams where dose is matched to indication/reason for exam; i.e. extremities or head) *Use of iterative reconstruction technique DLP: 314 mGy-cm FINDINGS: LUNGS: The central airways are patent. Moderate centrilobular and paraseptal emphysema. Mild septal thickening. There is increased opacification throughout the periphery of the right lung. This corresponds to the appearance on radiograph. No pneumothorax. Tiny right pleural effusion. MEDIASTINUM: Normal heart size. No pericardial effusion. Prominent mediastinal lymph nodes. This is similar to previous. For instance there is a precarinal node with a short axis measurement of 1.4 cm. CORONARY ARTERY CALCIFICATION: Severe AXILLA: No lymphadenopathy. UPPER ABDOMEN: No acute abnormality. Right renal calcifications partially visualized. This could be vascular. Multiple hypoattenuating liver lesions are again noted. OSSEOUS STRUCTURES: No acute or suspicious osseous abnormality. Degenerative change throughout the spine. CT/CT chest wo IV con IMPRESSION: 1. Moderate emphysema. There is increased opacification throughout the periphery of the right lung. This corresponds to the appearance on radiograph. This could represent pneumonia. 2. Tiny right pleural effusion. 3. Prominent mediastinal lymph nodes are again noted, similar to previous. Fleischner guidelines were followed.
--- NOTE | ~2022-08-10 | XR_ITS ---
EXAMINATION: XR CHEST CLINICAL INFORMATION: Chest pain COMPARISON: 02/15/2022 TECHNIQUE: Frontal view of the chest was obtained. FINDINGS: Cardiac leads overlie the chest. The lungs are well expanded. Increased opacification throughout the right mid to lower lung peripherally. No pleural effusion or pneumothorax. The cardiomediastinal silhouette is unchanged, with a calcified aorta. XR/XR chest 1V IMPRESSION: Increased opacification throughout the right mid to lower lung peripherally. This could be infectious or inflammatory.
--- NOTE | 2022-08-10 05:10 | ECG_ITS ---
Test Reason : CHEST PAIN Blood Pressure : / mmHG Vent. Rate : 083 BPM Atrial Rate : 000 BPM P-R Int : 000 ms QRS Dur : 078 ms QT Int : 350 ms P-R-T Axes : 000 024 028 degrees QTc Int : 411 ms Atrial fibrillation Abnormal ECG When compared with ECG of 15-FEB-2022 17:44, Borderline criteria for Inferior infarct are no longer Present Referred By: Generic ED Physician Electronically Signed By:AUTUMN MANCINI
[2022-08-10 05:17] VITALS: BP 144/93; PULSE 83; RESP 16; TEMP 36.4; O2SAT 93; BMI 31.1
[2022-08-10 05:34] LABS: MANUAL DIFF FLAG NO
[2022-08-10 05:35] LABS: Basophils Percent Auto 0.4 % (0-2); Eosinophils Absolute Auto 0.1 X10*3/uL (0.0-0.4); Eosinophils Percent Auto 1.1 % (0-4); Hematocrit 37.1 % (42.0-52.0); Hemoglobin 12.5 g/dl (14.0-18.0); Imm Gran Abs Auto 0.04 X10*3/uL (0.00-0.03); Imm Gran Pct Auto 0.5 % (0.0-0.4); Lymphocytes Absolute Auto 1.1 X10*3/uL (1.2-4.9); Lymphocytes Percent Auto 14.2 % (20-40); Mean Corpuscular HGB Conc 33.7 g/dl (31.0-36.0); Mean Corpuscular Volume 100.8 fL (80.0-98.0); Mean Platelet Volume 9.5 fL (9.4-12.4); Monocytes Absolute Auto 0.8 X10*3/uL (0.1-1.2); Monocytes Percent Auto 10.3 % (2-11); Neutrophils Absolute Auto 5.5 x10*3/uL (2.0-8.3); Neutrophils Percent Auto 73.5 % (45-73); Platelet Count 162 X10*3/uL (160-400); Red Blood Count 3.68 X10*6/uL (4.60-5.80); Red Cell Distribution Width 15.4 % (11.0-16.0); White Blood Count 7.4 X10*3/uL (4.8-10.8)
[2022-08-10 05:39] LABS: INTERNATIONAL NORM RATIO 1.3 (0.9-1.1); Prothrombin Time 14.9 SEC (10.0-13.1)
[2022-08-10 05:56] LABS: Anion Gap 14 (12-20); Blood Urea Nitrogen 20 mg/dL (9-16); Calcium 8.4 mg/dL (8.4-10.2); Carbon Dioxide 24 mmol/L (22-29); Chloride 106 mmol/L (96-108); Creatinine Clr Calc Pharmacy 73.9; Estimated Glomerular Filt Rate > 60; Glucose Random 144 mg/dL (60-115); Potassium 4.1 mmol/L (3.3-5.1); Sodium 140 mmol/L (135-145)
[2022-08-10 05:57] LABS: Troponin-I High Sensitivity < 2.7 ng/L (<3.5-35.0)
[2022-08-10 07:04] VITALS: BP 113/86; PULSE 72; RESP 14; TEMP 36.4; O2SAT 93
--- NOTE | 2022-08-10 07:31 | ED.CHESTPAIN ---
HPI - Chest Pain General Chief Complaint: Chest Pain Stated Complaint: Chest pain Time Seen by Provider: 08/10/22 06:43 Source: patient Mode of arrival: ambulatory Limitations: no limitations History of Present Illness HPI narrative: 76-year-old male with history of myocardial infarction and stent in the past placed in 2019 at [facility] presents to ED for left-sided chest pain that began since 02:00. Patient states left-sided chest pain is centralized and small area of upper chest. Patient denies any shortness of breath. Patient denies any pleurisy. He denies any leg swelling, calf pain, coughing up blood. Patient denies any recent long travel or recent surgery. Patient states pain level is only a 1. Patient states he is comfortable not in any distress. Related Data Home Medications Medication Instructions Recorded Confirmed adalimumab 40 mg/0.8 mL 40 mg subcut Q2W 04/01/20 07/30/22 subcutaneous syringe kit (Humira) budesonide 160 mcg-glycopyr 9 1 inh inhalation DAILY 05/25/22 07/30/22 mcg-formot 4.8 mcg/actuation HFA inhaler (Breztri Aerosphere) Previous Rx's Medication Instructions Recorded doxycycline hyclate 100 mg tablet 100 mg PO Q12H 6 days #12 tabs 02/02/22 albuterol sulfate 90 mcg/actuation 2 puff inhalation Q4-6H PRN 02/07/22 aerosol inhaler (ProAir HFA) shortness of breath or wheezing #8.5 grams OXYGEN 2 L NC keep sats > 90 #1 ea 02/12/22 PORTABLE OXYGEN TANK #1 ea 02/22/22 atorvastatin 80 mg tablet 80 mg PO BEDTIME #90 tabs 04/05/22 clopidogrel 75 mg tablet 75 mg PO DAILY #90 tabs 04/05/22 diltiazem HCl 300 mg 300 mg PO DAILY #90 caps 04/05/22 capsule,extended release 24 hr levothyroxine 50 mcg tablet 50 mcg PO DAILY 30 days #30 tabs 04/09/22 compress.stocking,knee,reg,med #2 ea 04/10/22 budesonide 160 mcg-glycopyr 9 2 inh inhalation BID 30 days #1 ea 04/24/22 mcg-formot 4.8 mcg/actuation HFA inhaler (Breztri Aerosphere) apixaban 5 mg tablet (Eliquis) 5 mg PO BID #60 tabs 05/09/22 levofloxacin 750 mg tablet 750 mg PO DAILY #9 tabs 05/22/22 metronidazole 500 mg tablet 500 mg PO TID #30 tabs 05/22/22 metoprolol tartrate 25 mg tablet 50 mg PO BID 90 days #360 tabs 05/28/22 cholecalciferol (vitamin D3) 50 50 mcg PO DAILY 30 days #30 caps 06/13/22 mcg (2,000 unit) capsule cyanocobalamin (vitamin B-12) 1,000 mcg PO DAILY #90 tabs 06/13/22 1,000 mcg tablet (Vitamin B-12) digoxin 125 mcg (0.125 mg) tablet 125 mcg PO .mwf #60 tabs 07/30/22 levofloxacin 750 mg tablet 750 mg PO DAILY 5 days #5 tabs 08/10/22 Allergies Allergy/AdvReac Type Severity Reaction Status Date / Time hydrochlorothiazide Allergy Severe Anaphylaxis Verified 08/10/22 05:21 lisinopril Allergy Severe Anaphylaxis Verified 08/10/22 05:21 Penicillins Allergy Severe Anaphylaxis Verified 08/10/22 05:21 Review of Systems Review of Systems: Left-sided chest pain localized 1 small area of the upper chest slight tender. No pleurisy. No shortness of breath. No lower extremity swelling or calf pain. Yes all other systems are reviewed and are negative [facility] Past Medical History Medical History Abnormal SPEP Ascending aorta dilatation Atrial fibrillation Bronchitis Chest discomfort COPD (chronic obstructive pulmonary disease) Coronary artery disease HOLLOWAY (dyspnea on exertion) Former smoker Ground glass opacity present on imaging of lung Hemoptysis Hypercholesterolemia Hypertension ILD (interstitial lung disease) Impaired glucose tolerance Multinodular thyroid Obesity (BMI 30-39.9) Obesity (BMI 30-39.9) Postoperative hypothyroidism Psoriasis Pulmonary nodules/lesions, multiple Right renal stone Stable angina Swelling of left lower extremity Thyroid nodule Tubular adenoma of colon (~2021) Vitamin D deficiency Wedge compression fracture of T9 vertebra (~2018) Surgical History History of appendectomy History of cardioversion (~2020) History of colonoscopy History of heart artery stent (~2019) History of lung biopsy (~2016) History of partial thyroidectomy (~2020) History of tonsillectomy Family History Family History Father Heart disease Mother Throat cancer Paternal Grandfather Heart disease Social History Social History Household Members: Spouse Housing: House Are you a primary before and after school daycare worker to a significant other at home: No Do you presently have visiting nurse or other home services: No Alcohol intake: never Patient Tobacco Use Status: Former Tobacco user Quit Date: 2014 Tobacco use type: Cigarette Years Smoked: 50 Smoked in Last 30 Days: No e-Cigarette/Vaping Use: Never Used Second Hand Smoke Exposure: No Use of substances other than those prescribed or required for medical reasons: No Advance Directives: No Advance Directives Information Provided: Yes Advance Directives Date on File: 09/21/20 service: Yes Current occupational status: retired Cognitive needs: No Hearing needs: No Vision needs: Yes Physical Exam Vital Signs: Vital Signs: Last Vital Signs Temp 98.2 F 08/10/22 08:56 Pulse 81 08/10/22 10:21 Resp 20 08/10/22 10:21 BP 121/62 08/10/22 10:21 Pulse Ox 95 08/10/22 10:21 O2 Del Method Room Air 08/10/22 10:21 BMI result Body Mass Index 31.1 Const: General: cooperative, healthy appearing, comfortable, no acute distress, well developed, alert, awake and Physically active Orientation/consciousness: oriented to person, oriented to place, oriented to time and patient oriented x3 HEENT: Head: Yes normal to inspection, Yes No palpable skull fracture present, Yes normocephalic, Yes atraumatic and No abrasion Eyes: General: appearance normal, both eyes and all related structures Neck: Neck: Yes normal visual inspection, Yes full ROM, Yes no lymphadenopathy, Yes no meningeal signs, Yes trachea midline, Yes supple, No anterior neck swelling and No tender Chest: Chest palpation & inspection: normal inspection of the chest Chest/axillae images: 1. Area of chest pain and tenderness on palpation. Negative for any rash or swelling. Negative for any ecchymosis or crepitus. Negative erythema Resp: Effort & Inspection: normal respiratory effort and able to speak in complete sentences Auscultation: clear to auscultation bilaterally GI: Inspection: Yes normal to inspection and No abdominal wall ecchymosis Palpation (GI): Soft to palpation, not firm, nontender, no guarding and not rigid : General: No CVA tenderness and Yes no CVA tenderness Back/Spine/Pelvis: Back: no CVA tenderness, No CVA tenderness and No back tenderness Skin: General skin exam: no rashes or lesions noted and elasticity normal Neuro: General: oriented to person, oriented to place, oriented to time, patient oriented x3, gait normal, tone normal, moves all extremities, Normal light touch and pain sensation, no meningeal signs, no focal motor deficits, CN's II-XI intact bilaterally and normal sensation to monofilament Extrem: Other: Bilateral lower extremity negative for swelling, pitting edema, or calf tenderness. General: Yes normal to inspection and Yes full ROM Psych: Appearance: grossly normal, well kempt and not disheveled Course Course Course Narrative: 76-year-old male with localize chest pain in left upper chest wall that is tender without any erythema ecchymosis or crepitus. Patient denies any shortness of breath. Initial EKG and troponin negative. Will do 2nd troponin give aspirin and do chest x-ray. Patient states chest pain level is 1. Would not give nitro due to patient systolic blood pressure 113 and patient is comfortable. Patient states baseline oxygen level is between 91-93. Patient has oxygen at home but he did not bring. Patient has oxygen tank to use as needed. Reevaluation(s) Reevaluation #1: FIRST TROPONIN NEGATIVE INITIAL EKG SHOWS CONTROLLED ATRIAL FIBRILLATION. CHEST X-RAY SHOWS INCREASED OPACITY FROM RIGHT TO LEFT SIDE OF LUNG INFECTIOUS VS INFLAMMATORY. PATIENT DENIES SHORTNESS OF BREATH Lungs NEGATIVE FOR PROFUSE WHEEZING. O2 SATURATION MONITOR IS AT BASELINE I REVIEWED PATIENT'S NOTES SOME PRIOR PULMONOLOGY VISIT IN JUNE WHICH PATIENT WAS EVALUATED FOR DUE TO HIS CT READING ALSO SHOWED INCREASE RIGHT-SIDED AND LEFT OPACITY. PUPPET ENGINEER Liane WROTE PATIENT DOING WELL WITH THIS CHEST CT READING AND WAS ON PULMONARY REHAB AND BASELINE O2 SATURATION WAS BETWEEN 88-93% AND ON ALBUTEROL AND BREMITZIL. PATIENT IS ON OXYGEN NEEDED. ACCORDING TO PUPPET ENGINEER'S NOTE DR. LAND OFF WANTING PATIENT TO HAVE A REPEAT CHEST CT IN [place], , SO REPEAT CHEST CT WAS ORDERED IN THE ED. PATIENT O2 SATURATION NOW 97% AND IS COMFORTABLE. Time: 09:55 Reevaluation #2: Patient chest CT shows pneumonia. Patient is not in any respiratory distress. Patient not in COPD exacerbation. Patient does have pneumonia. Patient will be discharged with Levaquin and told to follow with Dr. 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 Case discussed with Dr. Sanchez who agrees with plan Time: 11:39 Medications Administered Discontinued Medications Generic Name Dose Route Start Last Admin Trade Name Jacobo PRN Reason Stop Dose Admin Aspirin 325 mg 08/10/22 07:31 08/10/22 07:54 Aspirin Enteric Coated 325 Mg Tablet.Dr RIDER 08/10/22 07:32 325 mg ONCE ONE Administration Medical Decision Making Medical Decision Making [facility] Narrative: 76-year-old male with left-sided chest pain and small area of left chest without any shortness of breath and he described pain level as 1. Patient denies any lower extremity swelling, calf pain, coughing up blood, or pleurisy. Patient denies any chest pain or shortness of breath on exertion. Patient on Eliquis. Workup negative for AK. BNP only 237. Patient not in heart failure. Chest CT confirms pneumonia. Patient is not having COPD exacerbation. Differential Diagnosis Differential Diagnoses: The differential diagnosis associated with the presentation includes (Pneumonia, myocardial infarction, CHF, PE, afib) Admission/Observation Consideration of admission/observation: Escalation of care including admission/observation considered Lab Data [facility] Lab Attestation statement: I reviewed the patient's lab results. 08/10/22 05:28 08/10/22 05:28 Labs: Lab Results 08/10/22 08/10/22 08/10/22 Range/Units 05:28 05:28 05:28 WBC 7.4 (4.8-10.8) X10*3/uL RBC 3.68 L (4.60-5.80) X10*6/uL Hgb 12.5 L (14.0-18.0) g/dl Hct 37.1 L (42.0-52.0) % MCV 100.8 H (80.0-98.0) fL MCH 34.0 H (27.0-33.0) pg MCHC 33.7 (31.0-36.0) g/dl RDW 15.4 (11.0-16.0) % Plt Count 162 (160-400) X10*3/uL MPV 9.5 (9.4-12.4) fL Immature Gran % (Auto) 0.5 H (0.0-0.4) % Neut % (Auto) 73.5 H (45-73) % Lymph % (Auto) 14.2 L (20-40) % [place] % (Auto) 10.3 (2-11) % Eos % (Auto) 1.1 (0-4) % Baso % (Auto) 0.4 (0-2) % Lymph # (Auto) 1.1 L (1.2-4.9) X10*3/uL [place] # (Auto) 0.8 (0.1-1.2) X10*3/uL Eos # (Auto) 0.1 (0.0-0.4) X10*3/uL Baso # (Auto) 0.0 (0.0-0.2) X10*3/uL Abs Immat Gran (auto) 0.04 H (0.00-0.03) X10*3/uL Absolute Neuts (auto) 5.5 (2.0-8.3) x10*3/uL Absolute Nucleated RBC 0.000 (0.0-0.012) X10*3/uL Nucleated RBC % (auto) 0.0 (0.0-0.2) /100WBC PT (10.0-13.1) SEC INR (0.9-1.1) APTT (26.0-36.4) SEC Sodium 140 (135-145) mmol/L Potassium 4.1 (3.3-5.1) mmol/L Chloride 106 (96-108) mmol/L Carbon Dioxide 24 (22-29) mmol/L Anion Gap 14 (12-20) BUN 20 H (9-16) mg/dL Creatinine 0.94 (0.5-1.4) mg/dL Estim Creat Clear Calc 73.9 Estimated GFR > 60 Random Glucose 144 H (60-115) mg/dL Calcium 8.4 (8.4-10.2) mg/dL Troponin I High Sens < 2.7 (<3.5-35.0) ng/L B-Natriuretic Peptide (<100) pg/mL Influenza Type A (PCR) (Negative) Influenza Type B (PCR) (Negative) RSV RNA Qual (PCR) (Negative) SARS-CoV-2 RNA (RT-PCR) (Negative) 08/10/22 08/10/22 08/10/22 Range/Units 05:28 05:28 05:28 WBC (4.8-10.8) X10*3/uL RBC (4.60-5.80) X10*6/uL Hgb (14.0-18.0) g/dl Hct (42.0-52.0) % MCV (80.0-98.0) fL MCH (27.0-33.0) pg MCHC (31.0-36.0) g/dl RDW (11.0-16.0) % Plt Count (160-400) X10*3/uL MPV (9.4-12.4) fL Immature Gran % (Auto) (0.0-0.4) % Neut % (Auto) (45-73) % Lymph % (Auto) (20-40) % [place] % (Auto) (2-11) % Eos % (Auto) (0-4) % Baso % (Auto) (0-2) % Lymph # (Auto) (1.2-4.9) X10*3/uL [place] # (Auto) (0.1-1.2) X10*3/uL Eos # (Auto) (0.0-0.4) X10*3/uL Baso # (Auto) (0.0-0.2) X10*3/uL Abs Immat Gran (auto) (0.00-0.03) X10*3/uL Absolute Neuts (auto) (2.0-8.3) x10*3/uL Absolute Nucleated RBC (0.0-0.012) X10*3/uL Nucleated RBC % (auto) (0.0-0.2) /100WBC PT 14.9 H (10.0-13.1) SEC INR 1.3 H (0.9-1.1) APTT 36.1 Cancelled (26.0-36.4) SEC Sodium (135-145) mmol/L Potassium (3.3-5.1) mmol/L Chloride (96-108) mmol/L Carbon Dioxide (22-29) mmol/L Anion Gap (12-20) BUN (9-16) mg/dL Creatinine (0.5-1.4) mg/dL Estim Creat Clear Calc Estimated GFR Random Glucose (60-115) mg/dL Calcium (8.4-10.2) mg/dL Troponin I High Sens (<3.5-35.0) ng/L B-Natriuretic Peptide 231 H (<100) pg/mL Influenza Type A (PCR) (Negative) Influenza Type B (PCR) (Negative) RSV RNA Qual (PCR) (Negative) SARS-CoV-2 RNA (RT-PCR) (Negative) 08/10/22 08/10/22 Range/Units 08:33 08:51 WBC (4.8-10.8) X10*3/uL RBC (4.60-5.80) X10*6/uL Hgb (14.0-18.0) g/dl Hct (42.0-52.0) % MCV (80.0-98.0) fL MCH (27.0-33.0) pg MCHC (31.0-36.0) g/dl RDW (11.0-16.0) % Plt Count (160-400) X10*3/uL MPV (9.4-12.4) fL Immature Gran % (Auto) (0.0-0.4) % Neut % (Auto) (45-73) % Lymph % (Auto) (20-40) % [place] % (Auto) (2-11) % Eos % (Auto) (0-4) % Baso % (Auto) (0-2) % Lymph # (Auto) (1.2-4.9) X10*3/uL [place] # (Auto) (0.1-1.2) X10*3/uL Eos # (Auto) (0.0-0.4) X10*3/uL Baso # (Auto) (0.0-0.2) X10*3/uL Abs Immat Gran (auto) (0.00-0.03) X10*3/uL Absolute Neuts (auto) (2.0-8.3) x10*3/uL Absolute Nucleated RBC (0.0-0.012) X10*3/uL Nucleated RBC % (auto) (0.0-0.2) /100WBC PT (10.0-13.1) SEC INR (0.9-1.1) APTT (26.0-36.4) SEC Sodium (135-145) mmol/L Potassium (3.3-5.1) mmol/L Chloride (96-108) mmol/L Carbon Dioxide (22-29) mmol/L Anion Gap (12-20) BUN (9-16) mg/dL Creatinine (0.5-1.4) mg/dL Estim Creat Clear Calc Estimated GFR Random Glucose (60-115) mg/dL Calcium (8.4-10.2) mg/dL Troponin I High Sens < 2.7 (<3.5-35.0) ng/L B-Natriuretic Peptide (<100) pg/mL Influenza Type A (PCR) NEGATIVE (Negative) Influenza Type B (PCR) NEGATIVE (Negative) RSV RNA Qual (PCR) NEGATIVE (Negative) SARS-CoV-2 RNA (RT-PCR) NEGATIVE (Negative) Independent Interpretation I performed an independent interpretation of an: EKG (Atrial fibrillation. Ventricular rate 83, QRS 78 QTC 411. Negative STEMI) and CT Scan Radiology Impression Discussion of test interpretation with radiology: I have reviewed the radiologist's reading. Independent Historian Clinical information obtained from an independent historian. History obtained from or confirmed by: Spouse External Record Review External record reviewed: Outpatient record Prescription Management I considered prescription management with: Antibiotic Discharge Plan Discharge Clinical Impression: Pneumonia Patient Disposition: Home, Self-Care Instructions: Community Acquired Pneumonia (ED) Additional Instructions: Return to the ED for shortness of breath, wheezing, coughing up blood, chest pain, calf pain, intractable fever, chills, chest pain/shortness of breath on exertion, chest pain on inspiration, or any other concerning symptoms. Please follow your primary care and tape folding machine operator. Prescriptions: New levofloxacin 750 mg tablet 750 mg PO DAILY 5 Days Qty: 5 0RF No Action (DME) OXYGEN 2 L NC keep sats > 90 See Rx Instructions .Route .MEDSUPPLY Qty: 1 0RF Rx Instructions: As directed (DME) PORTABLE OXYGEN TANK See Rx Instructions .Route .MEDSUPPLY Qty: 1 0RF Rx Instructions: As directed atorvastatin 80 mg tablet 80 mg PO BEDTIME Qty: 90 2RF diltiazem HCl 300 mg capsule,extended release 24hr 300 mg PO DAILY Qty: 90 3RF clopidogrel 75 mg tablet 75 mg PO DAILY Qty: 90 3RF Eliquis 5 mg tablet 5 mg PO BID Qty: 60 5RF metoprolol tartrate 25 mg tablet 50 mg PO BID 90 Days Qty: 360 3RF cholecalciferol (vitamin D3) 50 mcg (2,000 unit) capsule 50 mcg PO DAILY 30 Days Qty: 30 11RF cyanocobalamin (vitamin B-12) [Vitamin B-12] 1,000 mcg tablet 1,000 mcg PO DAILY Qty: 90 3RF Breztri Aerosphere 160-9-4.8 mcg/actuation HFA aerosol inhaler 1 inh inhalation DAILY doxycycline hyclate 100 mg Tablet 100 mg PO Q12H 6 Days Qty: 12 0RF levofloxacin 750 mg tablet 750 mg PO DAILY Qty: 9 0RF metronidazole 500 mg tablet 500 mg PO TID Qty: 30 0RF Humira 40 mg/0.8 mL syringe kit 40 mg subcut Q2W Hold Instructions: hold for one week (DME) compress.stocking,knee,reg,med Misc See Rx Instructions .Route Qty: 2 0RF Rx Instructions: As directed 20-30 mm HG albuterol sulfate [ProAir HFA] 90 mcg/actuation HFA aerosol inhaler 2 puff inhalation Q4-6H PRN (Reason: shortness of breath or wheezing) Qty: 8.5 0RF levothyroxine 50 mcg tablet 50 mcg PO DAILY 30 Days Qty: 30 11RF Breztri Aerosphere 160-9-4.8 mcg/actuation HFA aerosol inhaler 2 inh inhalation BID 30 Days Qty: 1 6RF digoxin 125 mcg (0.125 mg) tablet 125 mcg PO .mwf Qty: 60 3RF Referrals: Kevon Casas MD [Physician] - (Pneumonia) Interventions: ED Discharge Assessment Last Done: 08/10/22 11:53 Discharge Date/Time: 08/10/22 11:53 Print Language: Macanese
[2022-08-10] MEDS: Aspirin Enteric Coated 325 MG TABLET.DR PO (07:54)
[2022-08-10 08:56] VITALS: BP 122/70; PULSE 61; RESP 12; TEMP 36.8; O2SAT 97
[2022-08-10 09:03] LABS: Partial Thromboplastin Time 36.1 SEC (26.0-36.4)
[2022-08-10 09:20] LABS: Influenza A PCR NEGATIVE (Negative); Influenza B PCR NEGATIVE (Negative); Resp Syncy Virus RNA Qual PCR NEGATIVE (Negative); SARS COV2 PCR INHOUSE NEGATIVE (Negative)
[2022-08-10 09:22] LABS: Troponin-I High Sensitivity < 2.7 ng/L (<3.5-35.0)
[2022-08-10 09:26] LABS: B Type Natriuretic Peptide 231 pg/mL (<100)
[2022-08-10 10:21] VITALS: BP 121/62; PULSE 81; RESP 20; O2SAT 95
== END 2022-08-10 11:53 | disposition home or self-care (01) ==
PROVIDERS: Physician Assistant; Emergency Provider Emergency Medicine Emergency Medical Services
DX: J18.9 Pneumonia, unspecified organism (principal); R07.89 Other chest pain; R06.02 Shortness of breath; M54.6 Pain in thoracic spine; Z20.822 Contact with and (suspected) exposure to COVID-19; Z20.828 Contact with and (suspected) exposure to other viral communicable diseases; Z79.899 Other long term (current) drug therapy
CPT/HCPCS: 0241U; 36415; 71045; 71250; 80048; 83880; 84484; 85025; 85610; 85730; 93005; 99284; 99285

== ENCOUNTER → 2022-08-24 10:01 | Outpatient (BNVA) | payer MEDICARE, SELFPAY | PROVIDERS: PCP Internal Medicine; Visit Provider Internal Medicine Pulmonary Disease | DX: J44.9 Chronic obstructive pulmonary disease, unspecified (principal); J84.9 Interstitial pulmonary disease, unspecified | CPT/HCPCS: 99212 ==

== ENCOUNTER 2022-09-04 11:07 | Outpatient (REF) | payer MEDICARE, SELFPAY ==
[2022-09-04 17:04] LABS: Albumin Level 3.6 g/dL (3.5-5.0); Phosphorus 4.2 mg/dL (2.7-4.5)
[2022-09-04 17:50] LABS: Free T4 (Free Thyroxine) 1.05 ng/dL (0.71-1.85); Thyroid Stimulating Hormone 0.57 uIU/mL (0.32-4.0); Vitamin D 25-OH Total 54.5 ng/mL (>30)
[2022-09-05 13:14] LABS: PTHI 34 pg/mL (16-77)
== END 2022-09-04 11:08 | disposition home or self-care (01) ==
LOC: HO.HMGCLDS 11:07
PROVIDERS: PCP Internal Medicine; Visit Provider Internal Medicine
DX: E04.2 Nontoxic multinodular goiter (principal); E55.9 Vitamin D deficiency, unspecified
CPT/HCPCS: 36415; 82040; 82306; 83970; 84100; 84439; 84443

== ENCOUNTER → 2022-09-12 08:27 | Outpatient (BNVA) | payer MEDICARE, SELFPAY | PROVIDERS: PCP Internal Medicine; Visit Provider Internal Medicine | DX: E04.2 Nontoxic multinodular goiter (principal); E89.0 Postprocedural hypothyroidism; R73.02 Impaired glucose tolerance (oral); E78.00 Pure hypercholesterolemia, unspecified; Z99.81 Dependence on supplemental oxygen; Z79.52 Long term (current) use of systemic steroids; Z79.899 Other long term (current) drug therapy | CPT/HCPCS: 99212 ==

== ENCOUNTER 2022-09-14 07:07 | Outpatient (REF) | payer MEDICARE, SELFPAY ==
--- NOTE | ~2022-09-14 | CT_ITS ---
EXAMINATION: CT CHEST WITHOUT CONTRAST CLINICAL INFORMATION: Solitary pulmonary nodule COMPARISON: Previous chest CT scans most recent July 2022 TECHNIQUE: Multidetector volumetric CT imaging of the chest was done. Axial MIP volume rendering provided. Sagittal and coronal reformatted images were obtained. This CT examination was performed using dose optimization techniques as appropriate, variously including the following: *Automated exposure control *Adjustment of mA and/or kV according to patient size (this includes techniques or standardized protocols for targeted exams where dose is matched to indication/reason for exam; i.e. extremities or head) *Use of iterative reconstruction technique DLP: 2.5 mGy-cm FINDINGS: LUNGS: Mild emphysema. Increased interstitial markings seen in the right lung and increased attenuation. This is seen diffusely throughout the lungs. This have a slight peripheral predominance. Minimal increased interstitial markings and attenuation seen at the anterior segment of the left upper lobe. There may be mild left apical pleural and parenchymal scarring. There is a 3 x 7 mm peripheral or subpleural density in the left upper lobe questionable for deeper pleural and parenchymal scarring axial image 35 series 10. There is a 2 mm left upper lobe nodule axial image 81 series 10. The lungs are otherwise clear. MEDIASTINUM: Prominent right paratracheal lymph node measuring 1 cm short axis. Other smaller mediastinal lymph nodes. These appear unchanged. No visible hilar adenopathy. Normal heart size. Coronary artery and aortic valve calcification. No pericardial effusion. Upper normal-size ascending thoracic aorta. CORONARY ARTERY CALCIFICATION: Moderate to severe PLEURA: Trace stable right pleural effusion. No left pleural effusion. No pneumothorax. AXILLA: No lymphadenopathy. UPPER ABDOMEN: Stable low-attenuation liver lesions probably representing cysts. Diverticulosis of the colon. Small calcification in the spleen. OSSEOUS STRUCTURES: Degenerative changes. CT/CT chest wo IV con IMPRESSION: Persistent asymmetric diffuse interstitial disease and increased attenuation in the right lung. This is unchanged from recent chest CT July 2022. This is increased from older chest CT January 2022. Emphysema. Stable trace right pleural effusion. Stable prominent mediastinal lymph nodes. No pulmonary nodule. Fleischner guidelines were followed.
== END 2022-09-14 07:08 | disposition home or self-care (01) ==
LOC: HO.CT 07:07
PROVIDERS: PCP Internal Medicine; Visit Provider Internal Medicine Pulmonary Disease
DX: R91.1 Solitary pulmonary nodule (principal); J84.9 Interstitial pulmonary disease, unspecified
CPT/HCPCS: 71250

== ENCOUNTER → 2022-09-25 09:41 | Outpatient (BNVA) | payer MEDICARE, SELFPAY | PROVIDERS: PCP Internal Medicine; Visit Provider Internal Medicine Pulmonary Disease | DX: J44.9 Chronic obstructive pulmonary disease, unspecified (principal); J84.9 Interstitial pulmonary disease, unspecified; Z99.81 Dependence on supplemental oxygen | CPT/HCPCS: 99212 ==

== ENCOUNTER 2022-10-01 06:01 | Outpatient (REF) | payer MEDICARE, SELFPAY ==
[2022-10-01 06:01] VITALS: BMI 31.2
[2022-10-01 11:12] LABS: MANUAL DIFF FLAG NO
[2022-10-01 11:35] LABS: Basophils Percent Auto 0.1 % (0-2); Eosinophils Percent Auto 0.2 % (0-4); Hematocrit 38.5 % (42.0-52.0); Hemoglobin 12.9 g/dl (14.0-18.0); Imm Gran Abs Auto 0.04 X10*3/uL (0.00-0.03); Imm Gran Pct Auto 0.5 % (0.0-0.4); Immature Retic Fraction 23.1 % (2.3-13.4); Lymphocytes Absolute Auto 0.8 X10*3/uL (1.2-4.9); Lymphocytes Percent Auto 9.1 % (20-40); Mean Corpuscular HGB Conc 33.5 g/dl (31.0-36.0); Mean Corpuscular Volume 104.3 fL (80.0-98.0); Mean Platelet Volume 9.3 fL (9.4-12.4); Monocytes Absolute Auto 0.8 X10*3/uL (0.1-1.2); Monocytes Percent Auto 9.1 % (2-11); Platelet Count 161 X10*3/uL (160-400); Red Blood Count 3.69 X10*6/uL (4.60-5.80); Red Cell Distribution Width 14.5 % (11.0-16.0); Retic HGB Equivalent 41.3 pg (30.0-35.0); Reticulocyte Percent 2.5 % (0.5-1.8); Reticulocytes Absolute 0.093 X10*6/uL (0.026-0.095); White Blood Count 8.6 X10*3/uL (4.8-10.8)
[2022-10-01 11:45] LABS: Estimated Average Glucose 174 mg/dL; Hemoglobin A1c % 7.7 %
[2022-10-01 12:08] LABS: Alanine Aminotransferase 27 U/L (0-40); Albumin Level 3.4 g/dL (3.5-5.0); Alkaline Phosphatase 94 U/L (39-117); Anion Gap 11 (12-20); Aspartate Amino Transferase 14 U/L (5-37); Bilirubin Total 1.3 mg/dL (0.0-1.0); Blood Urea Nitrogen 26 mg/dL (9-16); Calcium 8.5 mg/dL (8.4-10.2); Carbon Dioxide 29 mmol/L (22-29); Chloride 103 mmol/L (96-108); Cholesterol 142 mg/dL; Estimated Glomerular Filt Rate > 60; Glucose Random 134 mg/dL (60-115); HDL Cholesterol 63 mg/dL; Iron 105 mcg/dL (45-160); LDL Cholesterol Calculated 48 mg/dl; Percent Iron Saturation 42 % (15-50); Potassium 3.5 mmol/L (3.3-5.1); Sodium 139 mmol/L (135-145); Total Iron Binding Capacity 252 mcg/dL (228-428); Total Protein 6.1 g/dL (6.5-8.0); Triglycerides 155 mg/dL; Unsaturated Iron Binding 147 ug/dL
[2022-10-01 12:17] LABS: B Type Natriuretic Peptide 191 pg/mL (<100)
[2022-10-01 12:24] LABS: Ferritin 164 ng/mL (20-250); Folate 11.7 ng/mL (> or = 4.0); Free T4 (Free Thyroxine) 1.13 ng/dL (0.71-1.85); Vitamin B12 1202 pg/mL (200-900); Vitamin D 25-OH Total 45.6 ng/mL (>30)
== END 2022-10-01 06:02 | disposition home or self-care (01) ==
LOC: HO.HMGCLDS 06:01
PROVIDERS: PCP Internal Medicine; Visit Provider Internal Medicine
DX: E78.00 Pure hypercholesterolemia, unspecified (principal); D53.9 Nutritional anemia, unspecified; E89.0 Postprocedural hypothyroidism; R73.02 Impaired glucose tolerance (oral); E55.9 Vitamin D deficiency, unspecified; I10 Essential (primary) hypertension
CPT/HCPCS: 36415; 80053; 80061; 82306; 82607; 82728; 82746; 83036; 83540; 83880; 84439; 84443; 85025; 85045

== ENCOUNTER 2022-10-02 08:11 | Emergency (ER) | payer MEDICARE, SELFPAY ==
[2022-10-01 06:01] VITALS: BMI 31.2
--- NOTE | ~2022-10-02 | XR_ITS ---
EXAMINATION: XR CHEST CLINICAL INFORMATION: Shortness of breath COMPARISON: CT chest 09/14/2022 TECHNIQUE: Frontal view of the chest was obtained. FINDINGS: The right lung is hypoexpanded increase interstitial markings throughout right lung similar to previous CT chest exam. No acute consolidation seen. The heart size and pulmonary vascularity is normal. There is ipsilateral mediastinal shift to the right. No gross bony abnormality. XR/XR chest 1V IMPRESSION: Hypoexpanded right lung with prominent interstitial markings throughout the right lung similar to CT chest exam 09/14/2022. There is mediastinal shift to the right.
[2022-10-02 08:16] VITALS: BP 117/72; PULSE 80; RESP 26; TEMP 36.4; O2SAT 93; BMI 33.0
--- NOTE | 2022-10-02 08:16 | ED_ITS ---
HPI - SOB/Dyspnea General Chief Complaint: General Medical Stated Complaint: episode Time Seen by Provider: 10/02/22 08:14 Source: patient Mode of arrival: ambulatory Limitations: no limitations History of Present Illness HPI Narrative: patient went to go to pulmonary rehab today, patient was exercising for 30 khoi ivet when he became tachycardic and more short of breath so they sent him in. Patient is on oxygen as needed. No recent fever or chest pain. MD elicited complaint: shortness of breath Pertinent past history: COPD and other (atrial fibrillation) Onset (ago): minute(s) Context: occurred during exertion Severity: mild Known history of: COPD Related Data Home Medications Medication Instructions Recorded Confirmed adalimumab 40 mg/0.8 mL 40 mg subcut Q2W 04/01/20 09/12/22 subcutaneous syringe kit (Humira) budesonide 160 mcg-glycopyr 9 1 inh inhalation DAILY 05/25/22 09/12/22 mcg-formot 4.8 mcg/actuation HFA inhaler (Breztri Aerosphere) Previous Rx's Medication Instructions Recorded albuterol sulfate 90 mcg/actuation 2 puff inhalation Q4-6H PRN 02/07/22 aerosol inhaler (ProAir HFA) shortness of breath or wheezing #8.5 grams OXYGEN 2 L NC keep sats > 90 #1 ea 02/12/22 PORTABLE OXYGEN TANK #1 ea 02/22/22 atorvastatin 80 mg tablet 80 mg PO BEDTIME #90 tabs 04/05/22 clopidogrel 75 mg tablet 75 mg PO DAILY #90 tabs 04/05/22 diltiazem HCl 300 mg 300 mg PO DAILY #90 caps 04/05/22 capsule,extended release 24 hr levothyroxine 50 mcg tablet 50 mcg PO DAILY 30 days #30 tabs 04/09/22 compress.stocking,knee,reg,med #2 ea 04/10/22 apixaban 5 mg tablet (Eliquis) 5 mg PO BID #60 tabs 05/09/22 metronidazole 500 mg tablet 500 mg PO TID #30 tabs 05/22/22 metoprolol tartrate 25 mg tablet 50 mg PO BID 90 days #360 tabs 05/28/22 cholecalciferol (vitamin D3) 50 50 mcg PO DAILY 30 days #30 caps 06/13/22 mcg (2,000 unit) capsule cyanocobalamin (vitamin B-12) 1,000 mcg PO DAILY #90 tabs 06/13/22 1,000 mcg tablet (Vitamin B-12) digoxin 125 mcg (0.125 mg) tablet 125 mcg PO .mwf #60 tabs 07/30/22 prednisone 10 mg tablet See Rx Instructions PO DAILY 6 09/25/22 days #12 tabs Allergies Allergy/AdvReac Type Severity Reaction Status Date / Time hydrochlorothiazide Allergy Severe Anaphylaxis Verified 09/25/22 09:44 lisinopril Allergy Severe Anaphylaxis Verified 09/25/22 09:44 Penicillins Allergy Severe Anaphylaxis Verified 09/25/22 09:44 Review of Systems Review of Systems: Yes all other systems are reviewed and are negative Constitutional: Comments: not sleeping well over the past couple of days. Neurologic: Denies Sensory deficit (Neuro) [facility] Past Medical History Medical History Abnormal SPEP Ascending aorta dilatation Atrial fibrillation Bronchitis Chest discomfort COPD (chronic obstructive pulmonary disease) Coronary artery disease HOLLOWAY (dyspnea on exertion) Former smoker Ground glass opacity present on imaging of lung Hemoptysis Hypercholesterolemia Hypertension ILD (interstitial lung disease) Impaired glucose tolerance Multinodular thyroid Obesity (BMI 30-39.9) Obesity (BMI 30-39.9) Postoperative hypothyroidism Psoriasis Pulmonary nodules/lesions, multiple Right renal stone Stable angina Swelling of left lower extremity Thyroid nodule Tubular adenoma of colon (~2021) Vitamin D deficiency Wedge compression fracture of T9 vertebra (~2018) Surgical History History of appendectomy History of cardioversion (~2020) History of colonoscopy History of heart artery stent (~2019) History of lung biopsy (~2016) History of partial thyroidectomy (~2020) History of tonsillectomy Family History Family History Father Heart disease Mother Throat cancer Paternal Grandfather Heart disease Social History Social History Household Members: Spouse Housing: House Are you a primary child care team lead to a significant other at home: No Do you presently have visiting nurse or other home services: No Alcohol intake: never Patient Tobacco Use Status: Former Tobacco user Quit Date: 2014 Tobacco use type: Cigarette Years Smoked: 50 Smoked in Last 30 Days: No e-Cigarette/Vaping Use: Never Used Second Hand Smoke Exposure: No Use of substances other than those prescribed or required for medical reasons: No Advance Directives: Yes Advance Directives Information Provided: Yes Advance Directives on File: No Advance Directives Date on File: 09/21/20 service: Yes Current occupational status: retired Cognitive needs: No Hearing needs: No Vision needs: Yes Physical Exam Vital Signs: Vital Signs: Last Vital Signs Temp 98.1 F 10/02/22 09:01 Pulse 83 10/02/22 09:01 Resp 22 H 10/02/22 09:01 BP 97/56 L 10/02/22 09:01 Pulse Ox 95 10/02/22 09:01 O2 Del Method Nasal Cannula 10/02/22 09:01 BMI result Body Mass Index 33.0 Const: Other: no acute distress General: healthy appearing Nutritional Appearance: average body habitus Orientation/consciousness: oriented to person and patient oriented x3 Limitations: no limitations HEENT: Head: Yes normal to inspection Ears: external ears normal General nose exam: Normal external nose present Mouth: Normal oral and palatal mucosa present and oropharynx normal Throat: Yes posterior oropharynx normal Eyes: General: appearance normal, both eyes and all related structures Neck: Other: supple Neck: Yes normal visual inspection Chest: Chest palpation & inspection: normal inspection of the chest Resp: Auscultation: clear to auscultation bilaterally Cardio: Jugular venous distension: no JVD Rate: regular rate Rhythm: regular rhythm Heart sounds: S1 normal heart sound present and S2 normal heart sound present GI: Inspection: Yes normal to inspection Palpation (GI): Soft to palpation, nontender and No hepatosplenomegaly present Auscultation: normal bowel sounds : General: Yes no CVA tenderness Back/Spine/Pelvis: Back: no CVA tenderness Skin: General skin exam: no rashes or lesions noted Neuro: General: oriented to person and patient oriented x3 Cranial nerves: Yes CN's II-XII intact bilaterally Motor exam (neuro): 5/5 motor strength present throughout Sensory Exam: No Sensory deficit (Neuro) Extrem: General: Yes normal to inspection Psych: Appearance: grossly normal Course Reevaluation(s) Reevaluation #1: patient looking well, work up was negative, he feels good will dc home Time: 09:31 Medical Decision Making Differential Diagnosis Differential Diagnoses: The differential diagnosis associated with the presentation includes (atrial fibrillation, tachycardia, cardiac ischemia, COPD exacerbation, CHF, pneumonia) Admission/Observation Consideration of admission/observation: Escalation of care including admis dina/observation considered (In a 76 yo male with COPD, atrial fibrillation, 3 cardiac stents who presents with tachycardia and shortness of breath at rehab admission was considered) Consult Healthcare Provider Management of the patient was discussed with: Data Processing Equipment Repairer (Cardiology) Lab Data MDM Lab Attestation statement: I reviewed the patient's lab results. 10/02/22 08:30 10/02/22 08:30 Labs: Lab Results 10/02/22 10/02/22 10/02/22 Range/Units 08:30 08:30 08:31 WBC 7.2 (4.8-10.8) X10*3/uL RBC 3.57 L (4.60-5.80) X10*6/uL Hgb 12.4 L (14.0-18.0) g/dl Hct 36.6 L (42.0-52.0) % MCV 102.5 H (80.0-98.0) fL MCH 34.7 H (27.0-33.0) pg MCHC 33.9 (31.0-36.0) g/dl RDW 14.2 (11.0-16.0) % Plt Count 138 L (160-400) X10*3/uL MPV 8.8 L (9.4-12.4) fL Immature Gran % (Auto) 0.7 H (0.0-0.4) % Neut % (Auto) 77.8 H (45-73) % Lymph % (Auto) 9.4 L (20-40) % [place] % (Auto) 11.7 H (2-11) % Eos % (Auto) 0.3 (0-4) % Baso % (Auto) 0.1 (0-2) % Lymph # (Auto) 0.7 L (1.2-4.9) X10*3/uL [place] # (Auto) 0.9 (0.1-1.2) X10*3/uL Eos # (Auto) 0.0 (0.0-0.4) X10*3/uL Baso # (Auto) 0.0 (0.0-0.2) X10*3/uL Abs Immat Gran (auto) 0.05 H (0.00-0.03) X10*3/uL Absolute Neuts (auto) 5.6 (2.0-8.3) x10*3/uL Absolute Nucleated RBC 0.000 (0.0-0.012) X10*3/uL Nucleated RBC % (auto) 0.0 (0.0-0.2) /100WBC Sodium 137 (135-145) mmol/L Potassium 4.0 (3.3-5.1) mmol/L Chloride 101 (96-108) mmol/L Carbon Dioxide 26 (22-29) mmol/L Anion Gap 14 (12-20) BUN 24 H (9-16) mg/dL Creatinine 0.90 (0.5-1.4) mg/dL Estim Creat Clear Calc 79.4 Estimated GFR > 60 Random Glucose 105 (60-115) mg/dL Calcium 9.1 D (8.4-10.2) mg/dL Troponin I High Sens < 2.7 (<3.5-35.0) ng/L Independent Interpretation I performed an independent interpretation of an: EKG (atrial fibrillation rate 80, no st or twave changes) and Plain X-Ray (CXR no infiltrate, right sided shift which is old from old films) Radiology Impression Discussion of test interpretation with radiology: I have reviewed the ra diologist's reading. External Record Review External record reviewed: Outpatient record, Prior outpatient labs and Prior outpatient radiology Chronic Conditions Patient?s care impacted by: Hypertension and Other (Afib, and COPD) Discharge Plan Discharge Clinical Impression: Tachycardia, COPD (chronic obstructive pulmonary disease) Patient Disposition: Home, Self-Care Instructions: COPD (Chronic Obstructive Pulmonary Disease) (ED), Tachycardia (ED) Prescriptions: No Action (DME) OXYGEN 2 L NC keep sats > 90 See Rx Instructions .Route .MEDSUPPLY Qty: 1 0RF Rx Instructions: As directed (DME) PORTABLE OXYGEN TANK See Rx Instructions .Route .MEDSUPPLY Qty: 1 0RF Rx Instructions: As directed atorvastatin 80 mg tablet 80 mg PO BEDTIME Qty: 90 2RF diltiazem HCl 300 mg capsule,extended release 24hr 300 mg PO DAILY Qty: 90 3RF clopidogrel 75 mg tablet 75 mg PO DAILY Qty: 90 3RF Eliquis 5 mg tablet 5 mg PO BID Qty: 60 5RF metoprolol tartrate 25 mg tablet 50 mg PO BID 90 Days Qty: 360 3RF cholecalciferol (vitamin D3) 50 mcg (2,000 unit) capsule 50 mcg PO DAILY 30 Days Qty: 30 11RF cyanocobalamin (vitamin B-12) [Vitamin B-12] 1,000 mcg tablet 1,000 mcg PO DAILY Qty: 90 3RF Breztri Aerosphere 160-9-4.8 mcg/actuation HFA aerosol inhaler 1 inh inhalation DAILY metronidazole 500 mg tablet 500 mg PO TID Qty: 30 0RF Humira 40 mg/0.8 mL syringe kit 40 mg subcut Q2W Hold Instructions: hold for one week (DME) compress.stocking,knee,reg,med Misc See Rx Instructions .Route Qty: 2 0RF Rx Instructions: As directed 20-30 mm HG albuterol sulfate [ProAir HFA] 90 mcg/actuation HFA aerosol inhaler 2 puff inhalation Q4-6H PRN (Reason: shortness of breath or wheezing) Qty: 8.5 0RF levothyroxine 50 mcg tablet 50 mcg PO DAILY 30 Days Qty: 30 11RF digoxin 125 mcg (0.125 mg) tablet 125 mcg PO .mwf Qty: 60 3RF prednisone 10 mg tablet See Rx Instructions PO DAILY 6 Days Qty: 12 0RF Rx Instructions: Take 3 tabs daily for 2 days, then go down by 1 tab every 2 days. orally daily; Referrals: Po,Oswaldo Deng MD [Primary Care Provider] - 3 days Ja Jean-Baptiste MD [Physician] - 3 days
--- NOTE | 2022-10-02 08:22 | ECG_ITS ---
Test Reason : Near Syncope Blood Pressure : / mmHG Vent. Rate : 083 BPM Atrial Rate : 000 BPM P-R Int : 000 ms QRS Dur : 076 ms QT Int : 342 ms P-R-T Axes : 000 014 034 degrees QTc Int : 401 ms Atrial fibrillation Abnormal ECG When compared with ECG of 10-AUG-2022 05:11, No significant change was found Referred By: Ezra Apodaca Electronically Signed By:MIAH FERMIN MD
[2022-10-02 08:34] VITALS: BP 103/66; PULSE 83; RESP 19; TEMP 36.6; O2SAT 96
[2022-10-02 08:37] LABS: MANUAL DIFF FLAG NO
[2022-10-02 08:40] LABS: Basophils Percent Auto 0.1 % (0-2); Eosinophils Percent Auto 0.3 % (0-4); Hematocrit 36.6 % (42.0-52.0); Hemoglobin 12.4 g/dl (14.0-18.0); Imm Gran Abs Auto 0.05 X10*3/uL (0.00-0.03); Imm Gran Pct Auto 0.7 % (0.0-0.4); Lymphocytes Absolute Auto 0.7 X10*3/uL (1.2-4.9); Lymphocytes Percent Auto 9.4 % (20-40); Mean Corpuscular HGB Conc 33.9 g/dl (31.0-36.0); Mean Corpuscular Hemoglobin 34.7 pg (27.0-33.0); Mean Corpuscular Volume 102.5 fL (80.0-98.0); Mean Platelet Volume 8.8 fL (9.4-12.4); Monocytes Absolute Auto 0.9 X10*3/uL (0.1-1.2); Monocytes Percent Auto 11.7 % (2-11); Neutrophils Absolute Auto 5.6 x10*3/uL (2.0-8.3); Neutrophils Percent Auto 77.8 % (45-73); Platelet Count 138 X10*3/uL (160-400); Red Blood Count 3.57 X10*6/uL (4.60-5.80); Red Cell Distribution Width 14.2 % (11.0-16.0); White Blood Count 7.2 X10*3/uL (4.8-10.8)
[2022-10-02 09:01] VITALS: BP 97/56; PULSE 83; RESP 22; TEMP 36.7; O2SAT 95
[2022-10-02 09:01] LABS: Anion Gap 14 (12-20); Blood Urea Nitrogen 24 mg/dL (9-16); Calcium 9.1 mg/dL (8.4-10.2); Carbon Dioxide 26 mmol/L (22-29); Chloride 101 mmol/L (96-108); Creatinine Clr Calc Pharmacy 79.4; Estimated Glomerular Filt Rate > 60; Glucose Random 105 mg/dL (60-115); Sodium 137 mmol/L (135-145)
[2022-10-02 09:15] LABS: Troponin-I High Sensitivity < 2.7 ng/L (<3.5-35.0)
[2022-10-02 09:39] VITALS: BP 113/59; PULSE 95; RESP 17; O2SAT 96
== END 2022-10-02 10:26 | disposition home or self-care (01) ==
PROVIDERS: Emergency Provider Emergency Medicine; PCP Internal Medicine
DX: R00.0 Tachycardia, unspecified (principal); J44.9 Chronic obstructive pulmonary disease, unspecified; R06.02 Shortness of breath; I48.91 Unspecified atrial fibrillation; Z79.01 Long term (current) use of anticoagulants; Z79.899 Other long term (current) drug therapy; Z87.891 Personal history of nicotine dependence
CPT/HCPCS: 36415; 71045; 80048; 84484; 85025; 93005; 99283; 99284

== ENCOUNTER → 2022-10-10 13:30 | Outpatient (BNVA) | payer MEDICARE, SELFPAY ==
[2022-10-01 06:01] VITALS: BMI 31.2
== END ==
PROVIDERS: PCP Internal Medicine; Visit Provider Internal Medicine Cardiovascular Disease
DX: I20.8 Other forms of angina pectoris (principal); R06.09 Other forms of dyspnea; J44.9 Chronic obstructive pulmonary disease, unspecified; J84.9 Interstitial pulmonary disease, unspecified
CPT/HCPCS: 93005; 99212

== ENCOUNTER → 2022-11-02 08:08 | Outpatient (REF) | payer MEDICARE, SELFPAY ==
[2022-10-19 10:34] VITALS: BMI 32.0
--- NOTE | ~2022-11-02 | NM_ITS ---
Myocardial perfusion study Indication: Shortness of breath on exertion to evaluate for myocardial ischemia Technique: The patient was brought in for a Lexiscan perfusion study on 11/02/2022. Patient performed low-level exercise and was injected 0.4 mg of Lexiscan intravenously. Within a minute of injection, 30 mCi of sestamibi was given intravenously. Images were obtained using the SPECT gamma camera interlaced with the gating device. Images were obtained in supine position. Resting perfusion study was performed on 11/05/2022. Patient was administered 30 mCi of sestamibi intravenously at rest. Images were then obtained in supine position. Images obtained with and without CT attenuation. Total DLP 114 mGy-cm. Images were processed with the software and compared side to side in short axis, horizontal long axis and vertical long axis views. Findings: The stress perfusion study showed nonattenuation images show mildly to moderately reduced uptake in the basal inferior wall of the LV myocardium. Remainder of the LV myocardium is normally perfused. Attenuation corrected images show normal uptake of radiotracer in all segments of LV myocardium. The gated study shows normal LV systolic function with calculated LVEF of 64%. LV cavity is normal in size. The gated study shows normal systolic wall thickening and contraction of segments. Resting study shows no change in perfusion pattern compared to stress perfusion study. Gating at rest reveals normal systolic wall motion with ejection fraction at 56%. The findings are consistent with normal myocardial perfusion. NM/NM adelia perf SPECT rest & str Impression: 1. Myocardial perfusion imaging study shows normal myocardial perfusion 2. Gated LVEF is 64% 3. Transient ischemic dilatation not present EKG is nondiagnostic for ischemia
--- NOTE | 2022-11-02 08:11 | CA_ITS ---
Acquisition Time: 2022-11-02 08:22:20 Total Exercise Time: 00:02:00 Test Indications: Dyspnea Medications: SEE H Protocol: LEXISCAN Max HR: 146 BPM 101% of Pred: 144 BPM Max BP: 124/084 mmHG Max Work Load: 1.0 METS Pharmacological stress test with Lexiscan injection while sitting and kicking his legs with chest squeezing 15 seconds post Lexiscan injection, with HR dropping to the 60s increased to 130s BPM with assisance moving and laid back in chair, color remained stable througout, with non-diagnositic EKGs. Aminphylline 75mg IVP given to reverse Lexiscan symptoms at 1 min 30 sec of recovery. Nuclear images pending. Patient back to baseline. Test reviewed with Dr. Lindo. Referred By: Ja Jean-Baptiste Overread By: MIAH LINDO MD
== END ==
LOC: HO.CARD 08:08
PROVIDERS: PCP Internal Medicine; Visit Provider Internal Medicine Cardiovascular Disease
DX: R06.09 Other forms of dyspnea (principal)
CPT/HCPCS: 78452; 93017; A9500; J0280; J2785

== ENCOUNTER → 2022-11-02 08:21 | Outpatient (BNV) | payer MEDICARE, SELFPAY ==
[2022-10-19 10:34] VITALS: BMI 32.0
== END ==
PROVIDERS: PCP Internal Medicine; Visit Provider Internal Medicine Cardiovascular Disease
DX: R06.02 Shortness of breath (principal)
CPT/HCPCS: 78452; 93016; 93018

== ENCOUNTER 2022-11-18 05:34 | Emergency (ER) | payer MEDICARE, SELFPAY ==
[2022-10-19 10:34] VITALS: BMI 32.0
--- NOTE | 2022-11-18 | ECG_ITS ---
Test Reason : CHEST PAIN Blood Pressure : / mmHG Vent. Rate : 086 BPM Atrial Rate : 000 BPM P-R Int : 000 ms QRS Dur : 078 ms QT Int : 344 ms P-R-T Axes : 000 016 024 degrees QTc Int : 411 ms Atrial fibrillation Nonspecific ST abnormality Abnormal ECG When compared with ECG of 02-OCT-2022 08:10, No significant change was found Referred By: Generic ED Physician Electronically Signed By:MIAH FERMIN MD
--- NOTE | ~2022-11-18 | CT_ITS ---
EXAMINATION: CT ANGIOGRAM CHEST CLINICAL INFORMATION: Chest pain. New opacity. COMPARISON: None available. TECHNIQUE: Multiple axial images were obtained through the chest after the administration of 70 mL of Omnipaque 350 intravenous contrast. Reformatted coronal, sagittal and MIP images were provided for interpretation. This CT examination was performed using dose optimization techniques as appropriate, variously including the following: *Automated exposure control *Adjustment of mA and/or kV according to patient size (this includes techniques or standardized protocols for targeted exams where dose is matched to indication/reason for exam; i.e. extremities or head) *Use of iterative reconstruction technique DLP: 349 mGy-cm FINDINGS: Central airways are patent. Lungs are well aerated. Mild to moderate emphysematous changes are again noted. Previously noted increased interstitial markings particularly within the right lung have increased since prior cross-sectional imaging from September 14. Septal thickening is more prominent diffusely. Subpleural reticular changes are slightly more prominent. Similar constellation of findings is again noted within the anterior left lung but significantly less prominent compared with the right lung. There is no gross lobar consolidation present. No pleural effusion or pneumothorax. A few tiny scattered micronodules appear similar. No new suspicious pulmonary mass identified. The heart is enlarged. Coronary artery calcifications are present. There is no pericardial effusion. Stable mild dilatation of the ascending aorta measuring up to 4.4 cm. No dissection present. Mildly enlarged precarinal lymph node appears similar. No gross hilar lymphadenopathy appreciated. No pathologically enlarged axillary lymph nodes. Visualized portions of the upper abdomen again demonstrate several hypodense lesions of the liver, most of which are too small to accurately characterize. Mild to moderate diffuse degenerative changes of the spine. CT/CT angio chest aorta IMPRESSION: 1. Mild to moderate emphysematous changes of the lungs again noted. 2. Previously noted increased interstitial markings particularly within the right lung have increased since prior cross-sectional imaging from September 14. Subpleural reticular changes are again noted within the anterior left lung but significantly less prominent compared with the right lung. Findings are nonspecific but may represent interstitial lung disease, possibly with superimposed infectious or inflammatory process. 3. Stable mild dilatation of the ascending aorta measuring up to 4.4 cm. 4. Visualized portions of the upper abdomen again demonstrate several hypodense lesions of the liver, most of which are too small to accurately characterize. Fleischner guidelines were followed.
--- NOTE | ~2022-11-18 | XR_ITS ---
EXAMINATION: XR CHEST CLINICAL INFORMATION: Acute substernal chest. COMPARISON: 10/02/2022 TECHNIQUE: 2 views of the chest were obtained. FINDINGS: The lungs are well expanded. Increased hazy opacity throughout much of the right lung sparing the apex. No pleural effusion or pneumothorax. The cardiomediastinal silhouette is unchanged, with a calcified aorta. XR/XR chest 2V IMPRESSION: Increased hazy opacity throughout much of the right lung sparing the apex. This could be infectious or inflammatory.
[2022-11-18 05:45] VITALS: BP 154/98; PULSE 82; RESP 23; TEMP 36.5; O2SAT 94; BMI 31.5
--- NOTE | 2022-11-18 05:47 | ED_ITS ---
HPI - Chest Pain General Chief Complaint: Chest Pain Stated Complaint: Chest Pain Time Seen by Provider: 11/18/22 05:46 Source: patient and EMS Mode of arrival: EMS Limitations: no limitations History of Present Illness HPI narrative: 76-year-old male presents with chest pain. Patient has history of atrial fibrillation, diabetes followed by Cardiology. He is on Plavix and Eliquis. Patient was up at 4:30 a.m. this morning when he developed substernal chest pain. Described as an achiness and heaviness. He rated it as a 2/10. A 1 away after 1 hour. It was not associated with exertion. Did not radiate. Patient is getting ready to go out of town tomorrow and wanted to be checked out to make sure he is okay. Related Data Home Medications Medication Instructions Recorded Confirmed budesonide 160 mcg-glycopyr 9 1 inh inhalation DAILY 05/25/22 10/10/22 mcg-formot 4.8 mcg/actuation HFA inhaler (Breztri Aerosphere) adalimumab 40 mg/0.4 mL 40 mg subcut Q2W 10/10/22 10/10/22 subcutaneous pen kit (Humira(CF) Pen) Previous Rx's Medication Instructions Recorded OXYGEN 2 L NC keep sats > 90 #1 ea 02/12/22 PORTABLE OXYGEN TANK #1 ea 02/22/22 atorvastatin 80 mg tablet 80 mg PO BEDTIME #90 tabs 04/05/22 clopidogrel 75 mg tablet 75 mg PO DAILY #90 tabs 04/05/22 diltiazem HCl 300 mg 300 mg PO DAILY #90 caps 04/05/22 capsule,extended release 24 hr levothyroxine 50 mcg tablet 50 mcg PO DAILY 30 days #30 tabs 04/09/22 compress.stocking,knee,reg,med #2 ea 04/10/22 metoprolol tartrate 25 mg tablet 50 mg PO BID 90 days #360 tabs 05/28/22 cholecalciferol (vitamin D3) 50 50 mcg PO DAILY 30 days #30 caps 06/13/22 mcg (2,000 unit) capsule cyanocobalamin (vitamin B-12) 1,000 mcg PO DAILY #90 tabs 06/13/22 1,000 mcg tablet (Vitamin B-12) digoxin 125 mcg (0.125 mg) tablet 125 mcg PO .mwf #60 tabs 07/30/22 albuterol sulfate 90 mcg/actuation 2 puff inhalation Q4-6H PRN 10/08/22 aerosol inhaler (ProAir HFA) shortness of breath or wheezing #8.5 grams apixaban 5 mg tablet (Eliquis) 5 mg PO BID #60 tabs 11/05/22 Allergies Allergy/AdvReac Type Severity Reaction Status Date / Time hydrochlorothiazide Allergy Severe Anaphylaxis Verified 10/10/22 13:37 lisinopril Allergy Severe Anaphylaxis Verified 10/10/22 13:37 Penicillins Allergy Severe Anaphylaxis Verified 10/10/22 13:37 regadenoson [From Lexiscan] AdvReac Bradycardic Verified 11/02/22 10:57 Review of Systems Review of Systems: CONSTITUTIONAL: Denies weight loss, fever and chills. HEENT: Denies changes in vision and hearing. RESPIRATORY: Denies SOB and cough. CV: Denies palpitations + CP. GI: Denies abdominal pain, nausea, vomiting and diarrhea. : Denies dysuria and urinary frequency. MSK: Denies myalgia and joint pain. SKIN: Denies rash and pruritus. NEUROLOGICAL: Denies headache and syncope. PSYCHIATRIC: Denies recent changes in mood. Denies anxiety and depression. All other ROS are negative unless in HPI PMFSH Past Medical History Medical History Abnormal SPEP Ascending aorta dilatation Atrial fibrillation Bronchitis Chest discomfort COPD (chronic obstructive pulmonary disease) Coronary artery disease HOLLOWAY (dyspnea on exertion) Former smoker Ground glass opacity present on imaging of lung Hemoptysis Hypercholesterolemia Hypertension ILD (interstitial lung disease) Multinodular thyroid Obesity (BMI 30-39.9) Obesity (BMI 30-39.9) Postoperative hypothyroidism Psoriasis Pulmonary nodules/lesions, multiple Right renal stone Stable angina Swelling of left lower extremity Thyroid nodule Tubular adenoma of colon (~2021) Vitamin D deficiency Wedge compression fracture of T9 vertebra (~2018) Surgical History History of appendectomy History of cardioversion (~2020) History of colonoscopy History of heart artery stent (~2019) History of lung biopsy (~2016) History of partial thyroidectomy (~2020) History of tonsillectomy Family History Family History Father Heart disease Mother Throat cancer Paternal Grandfather Heart disease Social History Social History Household Members: Spouse Housing: House Are you a primary director of health care marketing to a significant other at home: No Do you presently have visiting nurse or other home services: No Alcohol intake: former Year quit: 2014 Patient Tobacco Use Status: Former Tobacco user Quit Date: 2014 Tobacco use type: Cigarette Years Smoked: 50 Smoked in Last 30 Days: No e-Cigarette/Vaping Use: Never Used Second Hand Smoke Exposure: No Use of substances other than those prescribed or required for medical reasons: No Advance Directives: No Advance Directives Information Provided: No Advance Directives Date on File: 09/21/20 service: Yes Current occupational status: retired Cognitive needs: No Hearing needs: No Vision needs: Yes Physical Exam Vital Signs: Vital Signs: Last Vital Signs Temp 98.0 F 11/18/22 06:00 Pulse 84 11/18/22 06:00 Resp 16 11/18/22 06:00 BP 138/80 11/18/22 06:00 Pulse Ox 98 11/18/22 06:00 O2 Del Method Nasal Cannula 11/18/22 06:00 O2 Flow Rate 2 11/18/22 06:00 BMI result Body Mass Index 31.5 GEN: Well developed, no acute distress, alert, oriented HEENT: Normocephalic, atraumatic, normal external ears, nose appears normal, no oropharyngeal edema or exudates Eyes: Normal to appearance Neck: Supple, no lymphadenopathy Respiratory: Talks in complete sentences, no respiratory distress, clear to auscultation bilaterally Cardiovascular: Regular rate and rhythm, no murmurs rubs or gallops Abdomen: Soft, nontender, nondistended, no guarding, no rebound Back: No CVA tenderness Extremities: No clubbing cyanosis or edema Neurologic: No focal neurologic deficits, cranial nerves 2-12 intact, strength is 5/5 bilaterally Skin: No rash Course Reevaluation(s) Reevaluation #1: Patient definitely has increased interstitial markings on the right lung. Patient does not have any respiratory complaints. Cardiopulmonary exam was unremarkable with exception of an irregularly irregular heart rate. Will refer patient back to his primary care provider for further evaluation. Patient may benefit from an outpatient CT scan Time: 06:26 Reevaluation #2: Patient's initial cardiac enzyme is negative. Will order a 2nd troponin to be done at 7:30 a.m.. This is normal, patient can be discharged with follow-up. The oncoming provider will take over patient's care at 7:00 a.m.. Time: 06:47 Medical Decision Making Medical Decision Making MDM Narrative: 76-year-old male with history of atrial fibrillation presents with chest pain. Patient has had the pain since 08/19 this morning lasting 1 hour. There is very mild with no other associated symptoms. Examination was benign. EKG shows atrial fibrillation with an unchanged EKG. Patient did have a stress test recently. They are full results are not available. Differential diagnosis includes angina, acute coronary syndrome, in ST elevation OR, atypical pain, indigestion, esophageal spasm, pulmonary symptoms. My plan will be to obtain a chest x-ray to rule out acute cardiopulmonary disease. Will order 2 sets of cardiac enzymes. Will re-evaluate the patient frequently. Differential Diagnosis Differential Diagnoses: The differential diagnosis associated with the presentation includes (As above) Admission/Observation Consideration of admission/observation: Escalation of care including admission/observation considered Lab Data MDM Lab Attestation statement: I reviewed the patient's lab results. 11/18/22 05:54 11/18/22 05:54 Labs: Lab Results 11/18/22 11/18/22 11/18/22 Range/Units 05:54 05:54 05:54 WBC 6.9 (4.8-10.8) X10*3/uL RBC 3.71 L (4.60-5.80) X10*6/uL Hgb 12.4 L (14.0-18.0) g/dl Hct 38.7 L (42.0-52.0) % MCV 104.3 H (80.0-98.0) fL MCH 33.4 H (27.0-33.0) pg MCHC 32.0 (31.0-36.0) g/dl RDW 15.3 (11.0-16.0) % Plt Count 204 D (160-400) X10*3/uL MPV 9.4 (9.4-12.4) fL Absolute Nucleated RBC 0.000 (0.0-0.012) X10*3/uL Nucleated RBC % (auto) 0.0 (0.0-0.2) /100WBC Sodium 140 (135-145) mmol/L Potassium 4.0 (3.3-5.1) mmol/L Chloride 106 (96-108) mmol/L Carbon Dioxide 21 L (22-29) mmol/L Anion Gap 17 (12-20) BUN 17 H (9-16) mg/dL Creatinine 0.83 (0.5-1.4) mg/dL Estim Creat Clear Calc 86.8 Estimated GFR > 60 Random Glucose 140 H (60-115) mg/dL Calcium 9.0 (8.4-10.2) mg/dL Total Bilirubin 0.8 (0.0-1.0) mg/dL AST 22 (5-37) U/L ALT 22 (0-40) U/L Alkaline Phosphatase 117 (39-117) U/L Troponin I High Sens < 2.7 (<3.5-35.0) ng/L Total Protein 7.0 (6.5-8.0) g/dL Albumin 3.6 (3.5-5.0) g/dL Independent Interpretation I performed an independent interpretation of an: EKG (Atrial fibrillation heart rate 86, no acute ST elevations depressions, nonspecific T-wave changes. No significant changes from 10/02/2022) Radiology Impression Discussion of test interpretation with radiology: I have reviewed the radiologist's reading. Radiologist Impression: Impression: Increased hazy opacity throughout much of the right lung sparing the apex this could be infectious or inflammatory. I independently reviewed the chest x-ray and agree with radiologist's finding. External Record Review External record reviewed: Prior outpatient radiology (Cardiac stress test from 11/02/2022 results pending) Discharge Plan Discharge Clinical Impression: Chest pain, Abnormal chest x-ray Patient Disposition: Still a Patient Instructions: Chest Pain (ED) Additional Instructions: Your chest x-ray demonstrated increasing markings on the right lung. Etiology is unclear. I am recommending follow-up with her primary care provider and consideration of the CT scan. Prescriptions: No Action (DME) OXYGEN 2 L NC keep sats > 90 See Rx Instructions .Route .MEDSUPPLY Qty: 1 0RF Rx Instructions: As directed (DME) PORTABLE OXYGEN TANK See Rx Instructions .Route .MEDSUPPLY Qty: 1 0RF Rx Instructions: As directed atorvastatin 80 mg tablet 80 mg PO BEDTIME Qty: 90 2RF diltiazem HCl 300 mg capsule,extended release 24hr 300 mg PO DAILY Qty: 90 3RF clopidogrel 75 mg tablet 75 mg PO DAILY Qty: 90 3RF metoprolol tartrate 25 mg tablet 50 mg PO BID 90 Days Qty: 360 3RF cholecalciferol (vitamin D3) 50 mcg (2,000 unit) capsule 50 mcg PO DAILY 30 Days Qty: 30 11RF cyanocobalamin (vitamin B-12) [Vitamin B-12] 1,000 mcg tablet 1,000 mcg PO DAILY Qty: 90 3RF albuterol sulfate [ProAir HFA] 90 mcg/actuation HFA aerosol inhaler 2 puff inhalation Q4-6H PRN (Reason: shortness of breath or wheezing) Qty: 8.5 6RF Eliquis 5 mg tablet 5 mg PO BID Qty: 60 5RF Breztri Aerosphere 160-9-4.8 mcg/actuation HFA aerosol inhaler 1 inh inhalation DAILY (DME) compress.stocking,knee,reg,med Misc See Rx Instructions .Route Qty: 2 0RF Rx Instructions: As directed 20-30 mm HG levothyroxine 50 mcg tablet 50 mcg PO DAILY 30 Days Qty: 30 11RF digoxin 125 mcg (0.125 mg) tablet 125 mcg PO .mwf Qty: 60 3RF Humira(CF) Pen 40 mg/0.4 mL pen injector kit 40 mg subcut Q2W Referrals: Julian Lindo MD [Physician] -
--- NOTE | 2022-11-18 05:50 | MHC.EDTECH ---
PATIENT EKG TAKEN AND WAS READ BY PROVIDER .
[2022-11-18 05:58] LABS: Hematocrit 38.7 % (42.0-52.0); Hemoglobin 12.4 g/dl (14.0-18.0); Mean Corpuscular Hemoglobin 33.4 pg (27.0-33.0); Mean Corpuscular Volume 104.3 fL (80.0-98.0); Mean Platelet Volume 9.4 fL (9.4-12.4); Platelet Count 204 X10*3/uL (160-400); Red Blood Count 3.71 X10*6/uL (4.60-5.80); Red Cell Distribution Width 15.3 % (11.0-16.0); White Blood Count 6.9 X10*3/uL (4.8-10.8)
[2022-11-18 06:00] VITALS: BP 138/80; PULSE 84; RESP 16; TEMP 36.7; O2SAT 98
[2022-11-18 06:15] LABS: Alanine Aminotransferase 22 U/L (0-40); Albumin Level 3.6 g/dL (3.5-5.0); Alkaline Phosphatase 117 U/L (39-117); Anion Gap 17 (12-20); Aspartate Amino Transferase 22 U/L (5-37); Bilirubin Total 0.8 mg/dL (0.0-1.0); Blood Urea Nitrogen 17 mg/dL (9-16); Carbon Dioxide 21 mmol/L (22-29); Chloride 106 mmol/L (96-108); Creatinine Clr Calc Pharmacy 86.8; Estimated Glomerular Filt Rate > 60; Glucose Random 140 mg/dL (60-115); Sodium 140 mmol/L (135-145)
[2022-11-18 06:20] LABS: Troponin-I High Sensitivity < 2.7 ng/L (<3.5-35.0)
[2022-11-18 07:18] VITALS: BP 118/68; PULSE 81; RESP 20; TEMP 36.7
[2022-11-18 08:02] VITALS: BP 112/81; PULSE 60; RESP 16; O2SAT 95
--- NOTE | 2022-11-18 08:04 | PC.NURSE ---
Alert and oriented, denies headache, sob, or chest pain. nsr on monitor. States no chest pain since admit. at bedside
--- NOTE | 2022-11-18 08:26 | ECG_ITS ---
Test Reason : CHEST PAIN Blood Pressure : / mmHG Vent. Rate : 068 BPM Atrial Rate : 000 BPM P-R Int : 000 ms QRS Dur : 082 ms QT Int : 384 ms P-R-T Axes : 000 017 031 degrees QTc Int : 408 ms Atrial fibrillation Abnormal ECG When compared with ECG of 18-NOV-2022 05:44, No significant change was found Referred By: Elida Johnston Electronically Signed By:AUTUMN MACNINI
--- NOTE | 2022-11-18 09:24 | PHA.MEDREC ---
Pharmacy Consult ? Medication Reconciliation Pharmacy has completed the medication reconciliation. Spoke to patient to confirm meds.
--- NOTE | 2022-11-18 10:08 | PC.NURSE ---
Alert and oriented, oob ambulating to bathroom, gait steady. Denies pain or discomfort.
[2022-11-18 10:12] VITALS: BP 122/62; PULSE 80; RESP 19; TEMP 36.8; O2SAT 96
[2022-11-18] MEDS: iohexoL 350 MG/ML 100 ML INFUS..BTL IV (11:00)
[2022-11-18 12:22] VITALS: BP 124/66; PULSE 88; RESP 18; O2SAT 97
--- NOTE | 2022-11-18 12:24 | PC.NURSE ---
Alert and oriented, denies pain or discomfort. ambulating without assist to bathroom. no sob noted, no chest pain, or headache. oob sitting at bedside in recliner.
--- NOTE | 2022-11-18 12:39 | PC.NURSE ---
Discharge plan reviewed with patient who verbalized understanding
== END 2022-11-18 12:40 | disposition home or self-care (01) ==
PROVIDERS: Emergency Provider Emergency Medicine; PCP Internal Medicine
DX: R07.89 Other chest pain (principal); I48.91 Unspecified atrial fibrillation; E11.9 Type 2 diabetes mellitus without complications; Z79.899 Other long term (current) drug therapy
CPT/HCPCS: 36415; 71046; 71275; 80053; 84484; 85027; 93005; 99285; Q9967

== ENCOUNTER → 2022-11-18 05:44 | Outpatient (BNV) | payer MEDICARE, SELFPAY ==
[2022-10-19 10:34] VITALS: BMI 32.0
== END ==
PROVIDERS: Emergency Provider Emergency Medicine; PCP Internal Medicine; Visit Provider Internal Medicine Cardiovascular Disease
DX: I48.91 Unspecified atrial fibrillation (principal)
CPT/HCPCS: 93010

== ENCOUNTER 2022-12-04 13:06 | Outpatient (AMB) | payer MEDICARE, SELFPAY ==
[2022-10-19 10:34] VITALS: BMI 32.0
--- NOTE | 2022-12-04 13:11 | MHC.PC.OV ---
Vital Signs 12/04/22 13:13 Height 5 ft 8 in Weight 202 lb BMI 30.7 BP 126/68 Blood Pressure Location Lt brachial Position Sitting Pulse 80 Pulse Source Pulse Oximeter Temp Source Skin Pulse Oximetry (%) 92 Oxygen Delivery Method Room Air Intake Visit Reasons: bilateral cataract left eye 12/12,right eye 01/02 Intake Note: Patient is here for a Pre-op for Cataract scheduled with [facility] 12/12 and 01/02 Allergies hydrochlorothiazide Allergy (Severe, Verified 12/04/22 13:37) Anaphylaxis lisinopril Allergy (Severe, Verified 12/04/22 13:37) Anaphylaxis Penicillins Allergy (Severe, Verified 12/04/22 13:37) Anaphylaxis regadenoson [From Lexiscan] Adverse Reaction (Verified 12/04/22 13:37) Bradycardic Medication List - Last Reconciled 12/04/22 by ADRIÁN Rg adalimumab (Humira(CF) Pen) 40 mg subcut Q2W albuterol sulfate 90 mcg/actuation (ProAir HFA) 2 puffs inhalation Q6H PRN apixaban (Eliquis) 5 mg PO BID atorvastatin 80 mg PO BEDTIME switefqzpe-qzysehki-vraennrnzy 160-9-4.8 mcg/actuation (Breztri Aerosphere) 2 inhalations inhalation BID cholecalciferol (vitamin D3) 50 mcg PO DAILY 30 days clopidogrel 75 mg PO DAILY compress.stocking,knee,reg,med As directed 20-30 mm HG cyanocobalamin (vitamin B-12) (Vitamin B-12) 1,000 mcg PO DAILY digoxin 125 mcg PO MOWEFR diltiazem HCl 300 mg PO DAILY levothyroxine 50 mcg PO DAILY@0600 metoprolol tartrate 50 mg (2 x 25 mg) PO BID 90 days [OXYGEN 2 L NC keep sats > 90 As directed] [PORTABLE OXYGEN TANK As directed] Tobacco use date assessed: 12/04/22 Fall risk assessment: No Falls in past year Last assessed Fall Risk: 12/04/22 Dental Screening Dental Screen Date: 12/04/22 Did you have a dental visit in the last 12 months?: Yes Did you have a dental problem in the last 6 months where you did not have access to dental care?: No Was dental information given to patient?: Patient has dentist HPI HPI Comments History of Present Illness Details 76-year-old male past medical history significant for type 2 diabetes mellitus, PVD, COPD, chronic atrial fibrillation, CAD, hypertension, hypercholesteremia, postoperative hypothyroidism and macrocytic anemia. Patient of presents today for preop appointment for bilateral cataract surgery left eye scheduled for 12/12/2022 and right eye scheduled for 01/02/2023 with [facility]. Review of the notes patient was recently seen in the emergency room on 11/18/2022 for chest pain Examination was benign.? EKG shows atrial fibrillation with an unchanged EKG.?Patient did have a stress test recently.?They are full results are not available. CT angio aorta was completed in ER, no evidence to suggest expanding aortic dilatation or dissection. Denies CP,palpitations and syncope states hes at his baseline sob with his COPD. using O2 at home 2L prn. Laboratory Tests 10/01/22 11/30/22 11/30/22 06:09 09:37 09:37 WBC 10.2 RBC 3.69 L Hgb 12.2 L Hct 38.6 L MCV 104.6 H MCH 33.1 H MCHC 31.6 RDW 14.9 Plt Count 180 MPV 8.9 L Immature Gran % (A uto) 0.3 Neut % (Auto) 76.6 H Lymph % (Auto) 12.3 L Carolina % (Auto) 9.8 Eos % (Auto) 0.7 Baso % (Auto) 0.3 Lymph # (Auto) 1.3 Carolina # (Auto) 1.0 Eos # (Auto) 0.1 Baso # (Auto) 0.0 Abs Immat Gran (au to) 0.03 Absolute Neuts (au to) 7.8 Absolute Nucleated RBC 0.000 Nucleated RBC % (a uto) 0.0 Sodium 140 Potassium 3.8 Chloride 107 Carbon Dioxide 25 Anion Gap 12 BUN 18 H Creatinine 0.87 Estim Creat Clear Calc 80.1 Estimated GFR > 60 Random Glucose 105 Calcium 9.1 AST 15 ALT 19 Alkaline Phosphata se 130 H Total Protein 6.9 Albumin 3.5 TSH 3.60 Free T4 1.13 PFSH Medical History Abnormal SPEP Ascending aorta dilatation Atrial fibrillation Bronchitis Chest discomfort COPD (chronic obstructive pulmonary disease) Coronary artery disease HOLLOWAY (dyspnea on exertion) Former smoker Ground glass opacity present on imaging of lung Hemoptysis Hypercholesterolemia Hypertension ILD (interstitial lung disease) Multinodular thyroid Obesity (BMI 30-39.9) Obesity (BMI 30-39.9) Postoperative hypothyroidism Psoriasis Pulmonary nodules/lesions, multiple Right renal stone Stable angina Swelling of left lower extremity Thyroid nodule Tubular adenoma of colon (~2021) Vitamin D deficiency Wedge compression fracture of T9 vertebra (~2018) Surgical History History of appendectomy History of cardioversion (~2020) History of colonoscopy History of heart artery stent (~2019) History of lung biopsy (~2016) History of partial thyroidectomy (~2020) History of tonsillectomy Family History Father Heart disease Mother Throat cancer Paternal Grandfather Heart disease Social History Household Members: Spouse Housing: House Are you a primary career transition specialist to a significant other at home: No Do you presently have visiting nurse or other home services: No Alcohol intake: former Year quit: 2014 Patient Tobacco Use Status: Former Tobacco user Quit Date: 2014 Tobacco use type: Cigarette Years Smoked: 50 e-Cigarette/Vaping Use: Never Used Second Hand Smoke Exposure: No Advance Directives Date on File: 09/21/20 service: Yes Current occupational status: retired Cognitive needs: No Hearing needs: No Vision needs: Yes Questionnaire Thrive Questionnaire Date Thrive assessed: 05/28/22 AUDIT C Alcohol Use Questionnaire (AUDIT-C) 1. How often do you have a drink containing alcohol?: Never 2. How many drinks containing alcohol do you have on a typical day when you are drinking?: 1 or 2 (0) 3. How often do you have six or more drinks on one occasion?: Never Total Score: 0 JORGE-7 AMB Questionnaire JORGE-7 Date JORGE - 7 assessed: 05/28/22 Source: Developed by Drs. Ever Nelson, Sarah Galindo, Lopez Owen and colleagues, with an educational moira from [employer]. Review of Systems Const Denies chills, Denies fatigue, Denies fever(s) and Denies poor appetite Eyes Denies no additional complaints ENT Reports Normal hearing present Card Denies chest pain, Denies syncope, Denies rapid heart rate and Denies dyspnea Resp Denies cough and Denies dyspnea GI Denies change in stool character, Denies constipation, Denies diarrhea, Denies nausea and Denies vomiting Denies dysuria, Denies urinary frequency and Denies urinary urgency Neuro Reports Normal hearing present, Denies confusion and Denies syncope Psych Denies confusion Endo Denies fatigue Physical exam (Primary Care) Vital Signs: Last Vital Signs Pulse 80 12/04/22 13:13 BP 126/68 12/04/22 13:13 Pulse Ox 92 12/04/22 13:13 Oxygen Delivery Method Room Air 12/04/22 13:13 BMI result Body Mass Index 30.7 Tobacco/Smoking Status: Tobacco use Status Tobacco use date assessed 12/04/22 12/04/22 13:19 Patient Tobacco Use Status Former Tobacco user 12/04/22 13:11 Tobacco use type Cigarette 12/04/22 13:11 e-Cigarette/Vaping Use Never Used 12/04/22 13:11 Thrive Assessment: Date of Thrive Assessment Date Thrive assessed 05/28/22 12/04/22 13:11 Const General: No confusion Orientation/consciousness: No confusion HENMT Head: Yes normocephalic and Yes atraumatic Eyes Conjunctivae: conjunctivae normal Chest Chest palpation & inspection: normal inspection of the chest Resp Effort & Inspection: normal respiratory effort Auscultation: clear to auscultation bilaterally, no crackles, no rhonchi and no wheezes Cardio Rate: regular rate Rhythm: regular rhythm Heart sounds: S1 normal heart sound present and S2 normal heart sound present Peripheral pulses: dorsalis pedis present GI Inspection: Yes normal to inspection Neuro General: No confusion Cranial nerves: Yes Normal hearing present Extrem General: No edema Assessment and Plan Assessment & Plan (1) Preop examination: Code(s): Z01.818 - Encounter for other preprocedural examination Plan: Patient is above average risk to undergo scheduled cataract surgery. No furthure work up is needed at this time and patient can proceed with scheduled surgery. Patient advised to take his cardiac medications and blood pressure medications with a small sub water prior to his procedure. (2) Hypertension: Code(s): I10 - Essential (primary) hypertension Qualifiers: Hypertension type: essential hypertension Qualified Code(s): I10 - Essential (primary) hypertension Plan: Continue metoprolol 50 mg twice a day. (3) Chronic atrial fibrillation: Code(s): I48.20 - Chronic atrial fibrillation, unspecified Plan: Continue Eliquis and Plavix for anticoagulation Cardizem and digoxin for rate control Cotninue to follow with cardiology. Plan Keep scheduled follow up with pcp in January. Medications: Discontinued albuterol sulfate 90 mcg/actuation 2 puffs inhalation Q4-6H PRN 8.5 grams 6RF shortness of breath or wheezing J44.9 - Chronic obstructive pulmonary disease, unspecified levothyroxine 50 mcg PO DAILY 30 days 30 tabs 11RF digoxin 125 mcg PO .mwf 60 tabs 3RF I48.20 - Chronic atrial fibrillation, unspecified Coding Level of Care Code Est Pt Level 3 (20086) Diagnoses Preop examination Z01.818 Hypertension I10 Hypertension type: essential hypertension Chronic atrial fibrillation I48.20
[2022-12-04 13:13] VITALS: BP 126/68; PULSE 80; O2SAT 92; BMI 30.7
== END 2022-12-04 13:45 | disposition home or self-care (01) ==
PROVIDERS: PCP Internal Medicine; Visit Provider Nurse Practitioner Family
DX: Z01.818 Encounter for other preprocedural examination (principal); I10 Essential (primary) hypertension; I48.20 Chronic atrial fibrillation, unspecified
CPT/HCPCS: 99213

== ENCOUNTER 2022-12-10 09:02 | Outpatient (AMB) | payer MEDICARE, SELFPAY ==
[2022-10-19 10:34] VITALS: BMI 32.0
[2022-12-10 09:12] VITALS: BP 102/68; PULSE 73; BMI 31.0
--- NOTE | 2022-12-10 09:12 | A.OFFVIS_ITS ---
Intake Vital Signs 12/10/22 09:12 Height 5 ft 8 in Weight 204 lb 2.369 oz BMI 31.0 BP 102/68 Blood Pressure Location Lt brachial Position Sitting Pulse 73 Pulse Source Pulse Oximeter Intake Visit Reasons: 4 MON FUP Intake Note: 4 month follow up. [employer]ed [employer] Layout Taper Required: No Accompanied by: Self / Same As Patient Allergies hydrochlorothiazide Allergy (Severe, Verified 12/10/22 09:14) Anaphylaxis lisinopril Allergy (Severe, Verified 12/10/22 09:14) Anaphylaxis Penicillins Allergy (Severe, Verified 12/10/22 09:14) Anaphylaxis regadenoson [From Lexiscan] Adverse Reaction (Verified 12/10/22 09:14) Bradycardic Medication List - Last Reconciled 12/10/22 by Ja Jean-Baptiste MD adalimumab (Humira(CF) Pen) 40 mg subcut Q2W albuterol sulfate 90 mcg/actuation (ProAir HFA) 2 puffs inhalation Q6H PRN apixaban (Eliquis) 5 mg PO BID atorvastatin 80 mg PO BEDTIME bfzgnhpbbx-qtyzlxbz-ysbpwygsje 160-9-4.8 mcg/actuation (Breztri Aerosphere) 2 inhalations inhalation BID cholecalciferol (vitamin D3) 50 mcg PO DAILY 30 days clopidogrel 75 mg PO DAILY compress.stocking,knee,reg,med As directed 20-30 mm HG cyanocobalamin (vitamin B-12) (Vitamin B-12) 1,000 mcg PO DAILY digoxin 125 mcg PO MOWEFR diltiazem HCl 300 mg PO DAILY levothyroxine 50 mcg PO DAILY@0600 metoprolol tartrate 50 mg (2 x 25 mg) PO BID 90 days [OXYGEN 2 L NC keep sats > 90 As directed] [PORTABLE OXYGEN TANK As directed] HPI HPI Comments History of Present Illness Details 77-year-old gentleman here for follow-up. He is denying any chest discomfort No bleeding issues. Has been in chronic atrial fibrillation. Overall doing old without any significant bleeding issues or chest discomfort. Compliant with medications. He has dyspnea on exertion and has underlying lung disease. He is saying he has been started on supplemental oxygen which she is supposed to wear with activities. He previously had RCA PCI and his presentation was with dyspnea at that time too. He is saying that his lung disease is progressed and recently after CT scan he w as told by pulmonology that he has interstitial lung disease. He is saying his breathing is worsened in the last 6 months. His denying any chest discomfort. As before using supplemental oxygen as needed. 12/10/22: He returns for follow-up. On last visit was complaining of shortness of breath. He has lung disease which is the cause for dyspnea but previously had dyspnea as an anginal equivalent to. After discussion with [facility] for stress testing and when Lexiscan in October 2022 which was normal. He is saying his breathing is at baseline. He has been using oxygen over the last several months with ambulation. He is following closely with pulmonology. No chest discomfort or any other concerning symptoms. Blood pressure control is good. He has permanent atrial fibrillation. [facility] Medical History Abnormal SPEP Ascending aorta dilatation Atrial fibrillation Bronchitis Chest discomfort COPD (chronic obstructive pulmonary disease) Coronary artery disease HOLLOWAY (dyspnea on exertion) Former smoker Ground glass opacity present on imaging of lung Hemoptysis Hypercholesterolemia Hypertension ILD (interstitial lung disease) Multinodular thyroid Obesity (BMI 30-39.9) Obesity (BMI 30-39.9) Postoperative hypothyroidism Psoriasis Pulmonary nodules/lesions, multiple Right renal stone Stable angina Swelling of left lower extremity Thyroid nodule Tubular adenoma of colon (~2021) Vitamin D deficiency Wedge compression fracture of T9 vertebra (~2018) Surgical History History of appendectomy History of cardioversion (~2020) History of colonoscopy History of heart artery stent (~2019) History of lung biopsy (~2016) History of partial thyroidectomy (~2020) History of tonsillectomy Family History Father Heart disease Mother Throat cancer Paternal Grandfather Heart disease Social History Household Members: Spouse Housing: House Are you a primary professional healthcare representative to a significant other at home: No Do you presently have visiting nurse or other home services: No Alcohol intake: former Year quit: 2014 Patient Tobacco Use Status: Former Tobacco user Quit Date: 2014 Tobacco use type: Cigarette Years Smoked: 50 e-Cigarette/Vaping Use: Never Used Second Hand Smoke Exposure: No Advance Directives Date on File: 09/21/20 service: Yes Current occupational status: retired Cognitive needs: No Hearing needs: No Vision needs: Yes Review of Systems Const Denies weakness ENT Denies dizziness Card Denies chest pain, Denies chest pain with activity, Denies syncope, Denies rapid heart rate, Denies pedal edema, Denies edema, Denies leg edema, Denies lightheadedness, Denies palpitations, Denies dyspnea, Denies dyspnea on exertion and Denies orthopnea Resp Denies cough, Denies dyspnea and Denies dyspnea on exertion GI Denies hematochezia and Denies change in stool character Musc Denies abnormal gait, Denies muscle cramps, Denies muscle weakness, Denies numbness, Denies radiating pain into limb and Denies tingling Neuro Denies abnormal gait, Denies dizziness, Denies syncope, Denies numbness, Denies tingling and Denies weakness Endo Denies palpitations Physical Exam Vital Signs: Last Vital Signs Pulse 73 12/10/22 09:12 BP 102/68 12/10/22 09:12 BMI result Body Mass Index 31.0 GENERAL APPEARANCE: in no acute distress, pleasant. NECK: no carotid bruit, no jugular venous distention. SKIN: no suspicious lesions, warm and dry. HEART: no murmurs, irregular rate and rhythm. LUNGS: Fine crackles at bases. ABDOMEN: soft, nontender. EXTREMITIES: no edema. PERIPHERAL PULSES: equal. NEUROLOGIC: No gross deficits, AAO X 3 Assessment & Plan Assessment & Plan (1) Hypertension: Code(s): I10 - Essential (primary) hypertension Qualifiers: Hypertension type: essential hypertension Qualified Code(s): I10 - Essential (primary) hypertension (2) HOLLOWAY (dyspnea on exertion): Code(s): R06.09 - Other forms of dyspnea (3) Hypercholesterolemia: Code(s): E78.00 - Pure hypercholesterolemia, unspecified (4) Ascending aorta dilatation: Comment: (ascending thoracic aorta -slightly dilated 4.3 x 4.2 cm - 07/24/[address]) 01/2022 4.3-4.5 cm Code(s): I77.810 - Thoracic aortic ectasia Plan [age] gentleman with known history of coronary artery disease with previous RCA PCI, COPD on oxygen and permanent atrial fibrillation. He has stable angina. Recent stress testing was normal. Continue same medications for now. Permanent atrial fibrillation and no plan to cardiovert him at this stage. Follow-up in 4 months. Thank you for allowing me to participate in the care of your patient. Please feel free to contact me if you have any questions. Medications: Discontinued albuterol sulfate 90 mcg/actuation 2 puffs inhalation Q4-6H PRN 8.5 grams 6RF shortness of breath or wheezing J44.9 - Chronic obstructive pulmonary disease, unspecified levothyroxine 50 mcg PO DAILY 30 days 30 tabs 11RF digoxin 125 mcg PO .mwf 60 tabs 3RF I48.20 - Chronic atrial fibrillation, unspecified Coding Level of Care Code Est Pt Level 4 (85007) Diagnoses Hypertension I10 Hypertension type: essential hypertension HOLLOWAY (dyspnea on exertion) R06.09 Hypercholesterolemia E78.00 Ascending aorta dilatation I77.810
== END 2022-12-10 09:33 | disposition home or self-care (01) ==
PROVIDERS: PCP Internal Medicine; Referring Provider Internal Medicine; Visit Provider Internal Medicine Cardiovascular Disease
DX: I10 Essential (primary) hypertension (principal); R06.09 Other forms of dyspnea; E78.00 Pure hypercholesterolemia, unspecified; I77.810 Thoracic aortic ectasia
CPT/HCPCS: 99214

== ENCOUNTER → 2022-12-10 09:02 | Outpatient (BNVA) | payer MEDICARE, SELFPAY ==
[2022-10-19 10:34] VITALS: BMI 32.0
== END ==
PROVIDERS: PCP Internal Medicine; Referring Provider Internal Medicine; Visit Provider Internal Medicine Cardiovascular Disease
DX: I77.810 Thoracic aortic ectasia (principal); I10 Essential (primary) hypertension; R06.09 Other forms of dyspnea; E78.00 Pure hypercholesterolemia, unspecified
CPT/HCPCS: 99212

== ENCOUNTER 2022-12-13 10:07 | Outpatient (REF) | payer MEDICARE, SELFPAY ==
[2022-10-19 10:34] VITALS: BMI 32.0
[2022-12-13 14:05] LABS: Appearance Urine Turbid; Color Urine Yellow; Glucose Urine UA Negative (Negative); Leukocyte Esterase Urine Large (3+) (Negative); Nitrite Urine Negative (Negative); PH 5.5 (5.0-9.0); Specific Gravity - Urine 1.025 (1.005-1.025); UMIC TRIGGER UACC YES; Urine Blood Moderate (2+) (Negative); Urine Ketones Trace mg/dL (Negative); Urine Protein 100 (2+) mg/dL (Neg-Trace)
[2022-12-13 14:39] LABS: Bacteria Urine 4+ (None Seen); Calcium Oxalate Crystals Urine Present; RBC Urine >20 /HPF (0-2); UACC Culture Trigger YES; WBC Urine >50 /HPF (0-5)
== END 2022-12-13 10:08 | disposition home or self-care (01) ==
LOC: HO.HMGCLDS 10:07
PROVIDERS: PCP Internal Medicine; Visit Provider Internal Medicine
DX: R39.9 Unspecified symptoms and signs involving the genitourinary system (principal)
CPT/HCPCS: 81001; 81003; 87086; 87088

== ENCOUNTER 2022-12-27 07:43 | Outpatient (REF) | payer MEDICARE, SELFPAY ==
--- NOTE | ~2022-12-27 | US_ITS ---
PROCEDURE: US BIOPSY THYROID CLINICAL INFORMATION: Thyroid nodules COMPARISON: Thyroid ultrasound 05/03/2022 TECHNIQUE/FINDINGS: Patient was placed supine on the ultrasound procedure table. A heterogeneous nodule in the right thyroid lower pole was identified in concordance with preprocedure imaging. The area was sterilely prepped and draped. 1% lidocaine was administered for local anesthesia. The right lower pole thyroid nodule was accessed with the 25-gauge needle and FNA was performed. 3 samples were obtained. Pathologist was on site to ensure adequate tissue sampling. Needle was removed and hemostasis was readily achieved and a dressing was applied. Postprocedure imaging does not demonstrate any bleeding or other complication. Patient tolerated the procedure well. US/US guided fine needle asp IMPRESSION: FNA of right lower pole thyroid nodule
[2022-12-27] MEDS: Lidocaine HCl 1 % 20 ML VIAL 5 ML SUBCUT (08:57)
== END 2022-12-27 07:44 | disposition home or self-care (01) ==
LOC: HO.US 07:43
PROVIDERS: PCP Internal Medicine; Visit Provider Internal Medicine
DX: E04.1 Nontoxic single thyroid nodule (principal)
CPT/HCPCS: 10005; 88172; 88173; 88305

== ENCOUNTER → 2022-12-27 07:44 | Outpatient (BNV) | payer MEDICARE, SELFPAY ==
[2022-12-13 07:26] VITALS: BMI 32.0
== END ==
PROVIDERS: PCP Internal Medicine; Visit Provider Student in an Organized Health Care Education/Training Program
DX: E04.2 Nontoxic multinodular goiter (principal)
CPT/HCPCS: 10005

== ENCOUNTER 2023-01-01 09:57 | Outpatient (AMB) | payer MEDICARE, SELFPAY ==
[2023-01-01 10:05] VITALS: BP 100/60; PULSE 71; O2SAT 93; BMI 31.0
--- NOTE | 2023-01-01 10:05 | A.OFFVIS_ITS ---
Intake Vital Signs 01/01/23 10:05 Height 5 ft 8 in Weight 203 lb 14.841 oz BMI 31.0 BP 100/60 Blood Pressure Location Rt brachial Position Sitting Pulse 71 Pulse Source Doppler Pulse Oximetry (%) 93 Oxygen Delivery Method Room Air Intake Visit Reasons: COPD Allergies hydrochlorothiazide Allergy (Severe, Verified 01/01/23 10:07) Anaphylaxis lisinopril Allergy (Severe, Verified 01/01/23 10:07) Anaphylaxis Penicillins Allergy (Severe, Verified 01/01/23 10:07) Anaphylaxis regadenoson [From Lexiscan] Adverse Reaction (Verified 01/01/23 10:07) Bradycardic HPI COPD HPI Details 77-year-old gentleman, former 100+ pack- year smoker, quit 2014, with prior history of left lower lobe nodule biopsy benign in etiology, also on Humira for underlying psoriatic arthritis, followed for COPD and abnormal CT chest that demonstrated bilateral ground-glass densities that have been waxing and waning with some underlying pulmonary fibrosis. He has been tried on prednisone with no symptomatic or radiologic response.? He has been using BrezTri with reasonable control of his symptoms.? He has been using supplemental oxygen with exertion.? He continues to participate in pulmonary rehab. He denies any recent exacerbations. [facility] Medical History Abnormal SPEP Ascending aorta dilatation Atrial fibrillation Bronchitis Chest discomfort COPD (chronic obstructive pulmonary disease) Coronary artery disease HOLLOWAY (dyspnea on exertion) Former smoker Ground glass opacity present on imaging of lung Hemoptysis Hypercholesterolemia Hypertension ILD (interstitial lung disease) Multinodular thyroid Obesity (BMI 30-39.9) Obesity (BMI 30-39.9) Postoperative hypothyroidism Psoriasis Pulmonary nodules/lesions, multiple Right renal stone Stable angina Swelling of left lower extremity Thyroid nodule Tubular adenoma of colon (~2021) Vitamin D deficiency Wedge compression fracture of T9 vertebra (~2018) Surgical History History of appendectomy History of cardioversion (~2020) History of colonoscopy History of heart artery stent (~2019) History of lung biopsy (~2016) History of partial thyroidectomy (~2020) History of tonsillectomy Family History Father Heart disease Mother Throat cancer Paternal Grandfather Heart disease Social History Household Members: Spouse Housing: House Are you a primary pet caregiver to a significant other at home: No Do you presently have visiting nurse or other home services: No Alcohol intake: former Year quit: 2014 Patient Tobacco Use Status: Former Tobacco user Quit Date: 2014 Tobacco use type: Cigarette Years Smoked: 50 e-Cigarette/Vaping Use: Never Used Second Hand Smoke Exposure: No Advance Directives Date on File: 09/21/20 service: Yes Current occupational status: retired Cognitive needs: No Hearing needs: No Vision needs: Yes Review of Systems Const Denies daytime sleepiness, Denies excessive sweating, Denies fatigue, Denies fever(s), Denies lethargy, Denies malaise, Denies night sweats, Denies snoring and Denies weight loss Eyes Denies blurry vision and Denies itchy eyes ENT Denies nasal congestion, Denies post nasal drip, Denies sinus pain, Denies sinus pressure and Denies other ( Thrush) Card Denies chest pain, Denies pedal edema, Denies dyspnea, Denies orthopnea and Denies paroxysmal nocturnal dyspnea Resp Denies cough, Denies hemoptysis, Denies excessive phlegm production, Denies dyspnea, Denies snoring and Denies wheezing GI Denies abdominal pain and Denies heartburn Musc Denies myalgias, Denies arthralgias and Denies joint swelling Skin/Breast Denies rash Neuro Denies memory loss and Denies seizure-like activity Psych Denies abnormal sleep pattern, Denies anxiety and Denies memory loss Endo Denies excessive sweating, Denies fatigue and Denies heat intolerance Zhou/Lymph Denies easy bruising Aller/Immun Denies itchy eyes, Denies seasonal rhinorrhea and Denies wheezing Physical Exam Vital Signs: Last Vital Signs Pulse 71 01/01/23 10:05 BP 100/60 01/01/23 10:05 Pulse Ox 93 01/01/23 10:05 Oxygen Delivery Method Room Air 01/01/23 10:05 BMI result Body Mass Index 31.0 Const General: no acute distress and alert Nutritional Appearance: not obese Orientation/consciousness: Other orientation findings ( oriented) HEENT Head: Yes atraumatic Eyes General: appearance normal, both eyes and all related structures Sclerae: sclerae normal EOM: EOMs intact bilaterally Neck Neck: Yes supple Lymphatic: no lymphadenopathy noted Resp Effort & Inspection: normal respiratory effort and no use of accessory muscles Auscultation: clear to auscultation bilaterally Cardio Rate: regular rate Rhythm: regular rhythm Heart sounds: no gallops, no murmurs and no rubs Skin General skin exam: other ( warm) Extrem General: No clubbing, No cyanosis and No edema Assessment & Plan Assessment & Plan (1) COPD (chronic obstructive pulmonary disease): Code(s): J44.9 - Chronic obstructive pulmonary disease, unspecified (2) ILD (interstitial lung disease): Code(s): J84.9 - Interstitial pulmonary disease, unspecified (3) Supplemental oxygen dependent: Code(s): Z99.81 - Dependence on supplemental oxygen Plan Combination of COPD and pulmonary fibrosis. Symptoms and now reasonably well controlled on BrezTri and albuterol MDI. Continue current regimen. Continue supplemental oxygen to maintain O2 saturation 88-92%. Continue pulmonary rehab. Will obtain CT chest to evaluate for changes in pulmonary fibrosis in June of 2023. Ordered. Orders: Orders CT chest wo IV con 07/02/23 J84.9 - Interstitial pulmonary disease, unspecified Coding Level of Care Code Est Pt Level 4 (25009) Diagnoses COPD (chronic obstructive pulmonary disease) J44.9 ILD (interstitial lung disease) J84.9 Supplemental oxygen dependent Z99.81
== END 2023-01-01 10:22 | disposition home or self-care (01) ==
PROVIDERS: PCP Internal Medicine; Visit Provider Internal Medicine Pulmonary Disease
DX: J44.9 Chronic obstructive pulmonary disease, unspecified (principal); J84.9 Interstitial pulmonary disease, unspecified; Z99.81 Dependence on supplemental oxygen
CPT/HCPCS: 99214

== ENCOUNTER → 2023-01-01 09:57 | Outpatient (BNVA) | payer MEDICARE, SELFPAY ==
[2022-12-13 07:26] VITALS: BMI 32.0
== END ==
PROVIDERS: PCP Internal Medicine; Visit Provider Internal Medicine Pulmonary Disease
DX: J44.9 Chronic obstructive pulmonary disease, unspecified (principal); J84.9 Interstitial pulmonary disease, unspecified; Z87.891 Personal history of nicotine dependence; Z99.81 Dependence on supplemental oxygen
CPT/HCPCS: 99212

== ENCOUNTER 2023-01-21 08:46 | Outpatient (REF) | payer MEDICARE, SELFPAY ==
--- NOTE | ~2023-01-21 | US_ITS ---
EXAMINATION: US RETROPERITONEAL COMPLETE (RENAL) CLINICAL INFORMATION: Frequency of micturition. COMPARISON: None available. TECHNIQUE: Real-time imaging of the kidneys and bladder. FINDINGS: RIGHT KIDNEY: 11.1 x 5.9 x 6.9 cm (SAG x AP x TRV). The kidney is normal in size, contour, and echogenicity. Renal cortical thickness is normal. No calculi. No hydronephrosis. 1.0 x 1.1 x 1.2 cm simple cyst in the mid kidney is seen. No imaging follow-up of this finding is recommended. LEFT KIDNEY: 11.1 x 5.3 x 6.2 cm (SAG x AP x TRV). The kidney is normal in size, contour, and echogenicity. Renal cortical thickness is normal. No calculi or focal parenchymal lesions. No hydronephrosis. Multiple echogenic foci within the kidney, nonshadowing, without twinkle artifact, likely represent vascular calcifications. BLADDER: Well distended and normal. Bilateral ureteral jets are demonstrated. Prevoid bladder volume is 185 mL. Postvoid bladder volume is 98 mL. The prostate is normal size with a volume of 22 mL. US/US retroperitoneal comp IMPRESSION: 1. No significant abnormality of the kidneys. 2. Normal size prostate. 3. Large post void residual.
== END 2023-01-21 08:47 | disposition home or self-care (01) ==
LOC: HO.HMGCX 08:46
PROVIDERS: PCP Internal Medicine; Visit Provider Internal Medicine
DX: R35.0 Frequency of micturition (principal)
CPT/HCPCS: 76770

== ENCOUNTER 2023-01-22 06:02 | Outpatient (REF) | payer MEDICARE, SELFPAY ==
[2023-01-22 12:09] LABS: Estimated Average Glucose 123 mg/dL; Hemoglobin A1c % 5.9 % (<6.0)
[2023-01-22 12:28] LABS: Alanine Aminotransferase 17 U/L (0-40); Albumin Level 3.6 g/dL (3.5-5.0); Alkaline Phosphatase 130 U/L (39-117); Anion Gap 9 (12-20); Aspartate Amino Transferase 18 U/L (5-37); Bilirubin Total 0.6 mg/dL (0.0-1.0); Blood Urea Nitrogen 24 mg/dL (9-16); Calcium 8.7 mg/dL (8.4-10.2); Carbon Dioxide 27 mmol/L (22-29); Chloride 105 mmol/L (96-108); Estimated Glomerular Filt Rate > 60; Glucose Random 125 mg/dL (60-115); Potassium 3.7 mmol/L (3.3-5.1); Sodium 137 mmol/L (135-145); Total Protein 6.9 g/dL (6.5-8.0)
== END 2023-01-22 06:03 | disposition home or self-care (01) ==
LOC: HO.HMGCLDS 06:02
PROVIDERS: PCP Internal Medicine; Visit Provider Internal Medicine
DX: E11.65 Type 2 diabetes mellitus with hyperglycemia (principal)
CPT/HCPCS: 36415; 80053; 83036

== ENCOUNTER 2023-01-29 08:08 | Outpatient (AMB) | payer MEDICARE, SELFPAY ==
--- NOTE | 2023-01-29 08:18 | MHC.PC.OV ---
Vital Signs 01/29/23 08:19 Height 5 ft 8 in Weight 205 lb BMI 31.2 BP 114/62 Blood Pressure Location Lt brachial Position Sitting Pulse 80 Pulse Source Pulse Oximeter Pulse Oximetry (%) 94 Oxygen Delivery Method Room Air Intake Visit Reasons: DM Allergies hydrochlorothiazide Allergy (Severe, Verified 01/29/23 08:19) Anaphylaxis lisinopril Allergy (Severe, Verified 01/29/23 08:19) Anaphylaxis Penicillins Allergy (Severe, Verified 01/29/23 08:19) Anaphylaxis regadenoson [From Lexiscan] Adverse Reaction (Verified 01/29/23 08:19) Bradycardic Medication List - Last Reconciled 01/29/23 by Oswaldo Delgado MD adalimumab (Humira(CF) Pen) 40 mg subcut Q2W albuterol sulfate 90 mcg/actuation (ProAir HFA) 2 puffs inhalation Q6H PRN apixaban (Eliquis) 5 mg PO BID atorvastatin 80 mg PO BEDTIME [id number] 160-9-4.8 mcg/actuation (Breztri Aerosphere) 2 inhalations inhalation BID cholecalciferol (vitamin D3) 50 mcg PO DAILY 30 days clopidogrel 75 mg PO DAILY compress.stocking,knee,reg,med As directed 20-30 mm HG cyanocobalamin (vitamin B-12) (Vitamin B-12) 1,000 mcg PO DAILY digoxin 125 mcg PO MOWEFR diltiazem HCl 300 mg PO DAILY ketorolac 0.5% drps ophthalmic (eye) levothyroxine 50 mcg PO DAILY@0600 metoprolol tartrate 50 mg (2 x 25 mg) PO BID 90 days [OXYGEN 2 L NC keep sats > 90 As directed] [PORTABLE OXYGEN TANK As directed] tamsulosin 0.4 mg PO BEDTIME Tobacco use date assessed: 12/04/22 Fall risk assessment: No Falls in past year Last assessed Fall Risk: 01/29/23 Dental Screening Dental Screen Date: 01/29/23 Did you have a dental visit in the last 12 months?: Yes Did you have a dental problem in the last 6 months where you did not have access to dental care?: No Was dental information given to patient?: Patient has dentist HPI DM HPI Details 77-year-old obese male with postoperative hypothyroidism hypertension hypercholesterolemia coronary artery disease atrial fibrillation COPD with interstitial lung disease, diabetes mellitus coming in for follow-up. Last seen in November 2022 for preoperative evaluation for cataract surgery. Patient is here for follow-up. Patient had a recent ultrasound January 2023 showing urinary retentionNo significant abnormality of the kidneys. 2. Normal size prostate. 3. Large post void residual. Patient also puff follows up with Pulmonary regarding the COPD(August 2022 Persistent asymmetric diffuse interstitial disease and increased attenuation in the right lung. This is unchanged from recent chest CT July 2022. This is increased from older chest CT January 2022. Emphysema. Stable trace right pleural effusion. Stable prominent mediastinal lymph nodes. No pulmonary nodule.)and pulmonary fibrosis well controlled on breath Street and albuterol on oxygen and has advised CT scan of the chest. Patient follows up with endocrinology and patient also had a recent fine needle aspiration of the thyroid December 2022 showing benign tissue. In November 2022 patient also follows up with Cardiology stress test normal(October 2022Myocardial perfusion imaging study shows normal myocardial perfusion 2. Gated LVEF is 64% 3. Transient ischemic dilatation not present) permanent atrial fibrillation stable angina. Patient also follows up with Hematology Oncology for the pulmonary nodules in the macrocytic anemia this is continued to be followed. Patient also follows up with orthopedics has had x-ray of the left shoulder showing rotator cuff impingement. Cataract surgery Dr. Waddell 12/12/and 01/06 [facility] Medical History Abnormal SPEP Ascending aorta dilatation Atrial fibrillation Bronchitis Chest discomfort COPD (chronic obstructive pulmonary disease) Coronary artery disease HOLLOWAY (dyspnea on exertion) Former smoker Ground glass opacity present on imaging of lung Hemoptysis Hypercholesterolemia Hypertension ILD (interstitial lung disease) Multinodular thyroid Obesity (BMI 30-39.9) Obesity (BMI 30-39.9) Postoperative hypothyroidism Psoriasis Pulmonary nodules/lesions, multiple Right renal stone Stable angina Swelling of left lower extremity Thyroid nodule Tubular adenoma of colon (~2021) Vitamin D deficiency Wedge compression fracture of T9 vertebra (~2018) Surgical History History of appendectomy History of cardioversion (~2020) History of colonoscopy History of heart artery stent (~2019) History of lung biopsy (~2016) History of partial thyroidectomy (~2020) History of tonsillectomy Family History Father Heart disease Mother Throat cancer Paternal Grandfather Heart disease Social History Household Members: Spouse Housing: House Are you a primary animal care attendant to a significant other at home: No Do you presently have visiting nurse or other home services: No Alcohol intake: former Year quit: 2014 Patient Tobacco Use Status: Former Tobacco user Quit Date: 2014 Tobacco use type: Cigarette Years Smoked: 50 e-Cigarette/Vaping Use: Never Used Second Hand Smoke Exposure: No Advance Directives Date on File: 09/21/20 service: Yes Current occupational status: retired Cognitive needs: No Hearing needs: No Vision needs: Yes Questionnaire PHQ-9 Over the last 2 weeks, how often have you been bothered by any of the following problems? 1. Little interest or pleasure in doing things: not at all 2. Feeling down, depressed, or hopeless: not at all 3. Trouble falling or staying asleep, or sleeping too much: not at all 4. Feeling tired or having little energy: not at all 5. Poor appetite or overeating: not at all 6. Feeling bad about yourself - or that you are a failure or have let yourself or your family down: not at all 7. Trouble concentrating on things, such as reading the newspaper or watching television: not at all 8. Moving or speaking so slowly that other people could have noticed. Or the opposite - being so fidgety or restless that you have been moving around a lot more than usual: not at all 9. Thoughts that you would be better off or of hurting yourself in some way: not at all Total score: 0 Depression Screening Interpretation: Negative Depression Screening Done: Yes Source: Developed by Drs. Ever Nelson, Sarah Galindo, Lopez Owen and colleagues, with an educational moira from [employer]. Thrive Questionnaire Date Thrive assessed: 05/28/22 AUDIT C Alcohol Use Questionnaire (AUDIT-C) 1. How often do you have a drink containing alcohol?: Never 2. How many drinks containing alcohol do you have on a typical day when you are drinking?: 1 or 2 (0) 3. How often do you have six or more drinks on one occasion?: Never Total Score: 0 JORGE-7 AMB Questionnaire JORGE-7 Date JORGE - 7 assessed: 05/28/22 Source: Developed by Drs. Ever Nelson, Sarah Galindo, Lopez Owen and colleagues, with an educational moira from [employer]. Physical exam (Primary Care) Vital Signs: Last Vital Signs Pulse 80 01/29/23 08:19 BP 114/62 01/29/23 08:19 Pulse Ox 94 01/29/23 08:19 Oxygen Delivery Method Room Air 01/29/23 08:19 BMI result Body Mass Index 31.2 Tobacco/Smoking Status: Tobacco use Status Tobacco use date assessed 12/04/22 01/29/23 08:20 Patient Tobacco Use Status Former Tobacco user 01/29/23 08:20 Tobacco use type Cigarette 01/29/23 08:20 e-Cigarette/Vaping Use Never Used 01/29/23 08:20 PHQ-9: PHQ-9 Score PHQ-9: Total score 0 01/29/23 08:29 Depression Screening Interpretation: Negative Thrive Assessment: Date of Thrive Assessment Date Thrive assessed 05/28/22 01/29/23 08:20 Const General: alert; No acute distress Eyes Conjunctivae: conjunctivae normal Resp Auscultation: clear to auscultation bilaterally Cardio Rate: regular rate Rhythm: regular rhythm GI Inspection: Yes normal to inspection Extrem General: Yes normal to inspection and No edema Office Procedures Flu Questionnaire Does the patient have a severe egg allergy?: No Does the patient have severe life threatening allergies?: No Does the patient have a fever or illness today?: No Has the patient ever had Guillain-Luverne Syndrome?: No Has the patient ever had any past reaction to a flu shot?: No Immunizations flu vacc [id number] 6mos up(PF) 60 mcg(15 mcgx4)/0.5 mL IM syringe Performing Provider: Oswaldo Delgado MD [facility] [place] [facility] Administered by: Nicky Cifuentes CMA on 01/29/23 08:28 Dose Route Admin Location Dispensed Lot Number Expiration Date NDC Medical Practice Assistant 0.5 mL IM Left Deltoid 0.5 mL [id number] 10/20/23 78945-547-23 [place] VIS Given Date VIS Provided VIS Publication Date 01/29/23 Single Vaccine 20 Eligibility Eligibility Date Funding Source Not [facility] Eligible 01/29/23 Private Assessment and Plan Assessment & Plan (1) Type 2 diabetes mellitus with hyperglycemia: Comment: Dr. Waddell and Dr. Mccord Code(s): E11.65 - Type 2 diabetes mellitus with hyperglycemia Plan: Decrease the amount of carbohydrate intake, pasta, bread, rice and potatoes are all sugar and that is aside from all the sweet stuff, remember that fruits are good but they are Sweet also. Hemoglobin A1c goal of less than 7.0 patient diet controlled January 2023 5.9 (2) Urinary retention with incomplete bladder emptying: Code(s): R33.9 - Retention of urine, unspecified Plan: Recent ultrasound showing this (3) Thyroid nodule: Comment: Biopsy April 2018, December 2022 benign Code(s): E04.1 - Nontoxic single thyroid nodule Plan: Biopsy benign done December 2022. Patient follows up with Endocrinology (4) Rotator cuff impingement syndrome of left shoulder: Code(s): M75.42 - Impingement syndrome of left shoulder Plan: Patient is being followed up by orthopedics (5) Ascending aorta dilatation: Comment: (ascending thoracic aorta -slightly dilated 4.3 x 4.2 cm - 07/24/[address]) 01/2022 4.3-4.5 cm Code(s): I77.810 - Thoracic aortic ectasia Plan: January 2022 last echocardiogram advise repeat echo (6) COPD (chronic obstructive pulmonary disease): Code(s): J44.9 - Chronic obstructive pulmonary disease, unspecified Plan: Patient follows up with Pulmonary continuing with a breaths tree and albuterol continue with oxygen (7) ILD (interstitial lung disease): Code(s): J84.9 - Interstitial pulmonary disease, unspecified Plan: Patient follows up with Pulmonary CT scan has been ordered (8) Chronic atrial fibrillation: Code(s): I48.20 - Chronic atrial fibrillation, unspecified Plan: Continue with anticoagulation (9) Coronary artery disease: Comment: (NSTEMI 04/2019 - JL + proximal and distal RCA rotablation) Code(s): I25.10 - Atherosclerotic heart disease of [place] coronary artery without angina pectoris Qualifiers: Coronary Disease-Associated Artery/Lesion type: [place] artery [place] vs. transplanted heart: [place] heart Associated angina: without angina Qualified Code(s): I25.10 - Atherosclerotic heart disease of [place] coronary artery without angina pectoris Plan: Control the cholesterol, weight, blood pressure, diabetes (10) Hypertension: Code(s): I10 - Essential (primary) hypertension Qualifiers: Hypertension type: essential hypertension Qualified Code(s): I10 - Essential (primary) hypertension Plan: Continue with blood pressure medication. Decrease salt intake and exercise patient on metoprolol 50 mg twice a day diltiazem 300 mg once a day (11) Hypercholesterolemia: Code(s): E78.00 - Pure hypercholesterolemia, unspecified Plan: Avoid fried foods, chicken skin, eggs, butter margarine, pastries and meat. Be it pork or beef they have a lot of cholesterol patient take the atorvastatin 80 mg LDL goal of less than 70 triglyceride of less than 150 September 2022 48 (12) Pulmonary nodule: Comment: July Code(s): R91.1 - Solitary pulmonary nodule Plan: Continues to follow-up yearly with CT scan the chest (13) Postoperative hypothyroidism: Comment: (s/p left hemithyroidectomy 03/2021) Code(s): E89.0 - Postprocedural hypothyroidism Plan: Continue with thyroid medication (14) Obesity (BMI 30-39.9): Code(s): E66.9 - Obesity, unspecified Plan: Diet and exercise (15) Cataract: Comment: 12/12 and 01/06/2023 Dr. Waddell Code(s): H26.9 - Unspecified cataract Orders: Orders Influenza [id number] Immunization Today Z23 - Encounter for immunization CA echo transthoracic complete Today I77.810 - Thoracic aortic ectasia Coding Level of Care Code Est Pt Level 4 (51596) Diagnoses Type 2 diabetes mellitus with hyperglycemia E11.65 Urinary retention with incomplete bladder emptying R33.9 Thyroid nodule E04.1 Rotator cuff impingement syndrome of left shoulder M75.42 Ascending aorta dilatation I77.810 COPD (chronic obstructive pulmonary disease) J44.9 ILD (interstitial lung disease) J84.9 Chronic atrial fibrillation I48.20 Coronary artery disease involving [place] coronary artery of [place] heart without angina pectoris I25.10 Coronary Disease-Associated Artery/Lesion type: [place] artery [place] vs. transplanted heart: [place] heart Associated angina: without angina Essential hypertension I10 Hypertension type: essential hypertension Hypercholesterolemia E78.00 Pulmonary nodule R91.1 Postoperative hypothyroidism E89.0 Obesity (BMI 30-39.9) E66.9 Cataract H26.9 Additional Codes PHQ-9 - 37728 - PHQ-9 Billing: ([id number])
[2023-01-29 08:19] VITALS: BP 114/62; PULSE 80; O2SAT 94; BMI 31.2
== END 2023-01-29 09:10 | disposition home or self-care (01) ==
PROVIDERS: PCP Internal Medicine; Visit Provider Internal Medicine
DX: Z23 Encounter for immunization (principal)
CPT/HCPCS: 90471; 90686; 99214

== ENCOUNTER 2023-02-07 10:09 | Outpatient (REF) | payer MEDICARE, SELFPAY ==
[2023-02-10 08:53] LABS: TS Negative Control Passed; TS Panel A 0; TS Panel B 0; TS Positive Control Passed; TSpotTB Negative (Negative)
== END 2023-02-07 10:10 | disposition home or self-care (01) ==
LOC: HO.HMGCLDS 10:09
PROVIDERS: PCP Internal Medicine; Visit Provider Dermatology
DX: L40.0 Psoriasis vulgaris (principal); Z79.899 Other long term (current) drug therapy
CPT/HCPCS: 36415; 86481

== ENCOUNTER → 2023-03-01 07:41 | Outpatient (REF) | payer MEDICARE, SELFPAY ==
--- NOTE | 2023-03-01 07:44 | CA_ITS ---
Transthoracic Echocardiogram Patient (Last, First, Middle): Pablito Everett P Gender: Male Date of : 1945 Age: 77 Procedure Date: 03/01/2023 Procedure Type: Transthoracic Echocardiogram Location: OP Height: 172.72 cm Weight: 92.99 kg BSA: 2.07 m2 Heart Rate: bpm BP: 124 / 70 mmHg Industrial Roofer: Referring MD: Oswaldo Delgado MD Apron Trimmer: Julian Lindo MD Symptoms: I77.810 - Thoracic aortic ectasia Study Quality: Fair ECG Rhythm: Atrial Fibrillation Conclusions: - 1. Low normal LV ejection fraction 50-55% 2. Moderately dilated left atrium 3. Mild aortic stenosis and regurgitation 4. Normal RV systolic pressure 5. Mildly dilated ascending aorta at 4.3 cm 6. No gross pericardial effusion Findings Left Ventricle Normal left ventricular cavity size. There is moderately increased left ventricular wall thickness. The left ventricular systolic function is low normal. The visually estimated ejection fraction is between 50-55%. Diastolic function is indeterminate on the basis of available data. Right Ventricle Normal right ventricular cavity size. There is low normal right ventricular systolic function. Atria The left atrium is moderately dilated. There is no evidence of interatrial shunt. The right atrium is mildly dilated. Aortic Valve There is mild calcification of the aortic valve. There is mild aortic valve stenosis. The peak aortic gradient is 14 mmHg.The mean gradient is 6 mmHg. The aortic valve area is 1.77 cm2. There is mild aortic valve regurgitation. Mitral Valve There is mild anterior and posterior mitral leaflet thickening. There is mild mitral annular calcification. There is trace mitral valve regurgitation. There is no mitral valve stenosis. Pulmonic Valve The pulmonic valve was not well visualized. Tricuspid Valve Likely normal tricuspid valve structure and function. There is trace tricuspid valve regurgitation. The right ventricular systolic pressure is normal. The right ventricular systolic pressure is 20 mmHg. Normal right atrial pressure. There is no evidence of pulmonary hypertension. Great Vessels The pulmonary artery was not well visualized. There is mild dilatation of the ascending aorta measuring 4.30 cm. Venous The inferior vena cava is normal in size and collapses greater than 50% with inspiration. Pericardium/Pleural There is no evidence of pericardial effusion. Prior Study Comparison Changes noted compared to prior study. Mild aortic regurgitation stenosis noted with marginally reduced LV systolic function Measurements 2D Linear Measurements IVSd: 1.51 0.6-0.9/0.6-1.0 cm LVIDd: 4.28 3.9-5.3/4.2-5.9 cm LVIDd Index: 2.07 2.4-3.2/2.2-3.1 cm/m2 LVIDs: 2.54 2.0-3.6 cm LVPWd: 1.47 0.7-1.1 cm Ao Root: 3.90 2.1-3.5 cm LA Diam: 4.60 2.7-3.8/3.0-4.0 cm LAIDs Index: 2.22 1.5-2.3 cm/m2 LV Mass: 316.42 67-162/88-224 g LV Mass Index: 152.86 43-95/49-115 g/m2 LVOT Diam: 2.10 3.0+(-)1.3 cm 2D Systolic Function EF 4C: 45.90 >55% EF 2C: 57.80 >55% EF BiP: 52.60 >55% Mitral Valve MV Pk E: 1.03 MV Decel Time: 207.00 E'Lateral: 11.00 E'Medial: 7.40 E/E' Med: 13.90 E/E' Lat: 9.40 PHT: 61.00 MVA PHT: 3.61 Decel [place]: 4.97 Aortic Valve AoV Pk [place]: 1.88 AoV Mn [place]: 1.10 AoV VTI: 0.38 AoV Pk Grad: 14.00 Aov Mn Grad: 6.00 RAYMOND Cont.VTI: 1.77 LVOT LVOT Pk [place]: 0.92 LVOT Mn [place]: 0.62 LVOT VTI: 0.19 LVOT Pk Grad: 3.00 LVOT Mn Grad: 2.00 LVOT Diam: 2.10 LVOT Area: 3.46 Diastolic Function MV Pk E: 1.03 E'Medial: 7.40 E/E' Med: 13.90 E' Laterial: 11.00 E/E' Lat: 9.40 Right Ventricle TAPSE (mm): 23.00 TVS' [place]: 10.00 Tricuspid Valve TR Pk [place]: 2.04 TR Pk Grad: 17.00 RA Press: 3.00 RVSP: 20.00 Great Vessels Aorta Ao Root-2D: 3.90 2.0-3.7 cm Ao Asc: 4.30 2.1-3.4 cm Pulmonary Valve PV Pk [place]: 0.83 Peak PV Grad: 3.00 Updated in Other Vendor System with Status of Final Julian Lindo MD electronically signed on 03/01/2023 5:32:15 PM with status of Final
== END ==
LOC: HO.CARD 07:41
PROVIDERS: PCP Internal Medicine; Visit Provider Internal Medicine
DX: I77.810 Thoracic aortic ectasia (principal)
CPT/HCPCS: 93306

== ENCOUNTER → 2023-03-01 07:44 | Outpatient (BNV) | payer MEDICARE, SELFPAY | PROVIDERS: PCP Internal Medicine; Visit Provider Internal Medicine Cardiovascular Disease | DX: I35.2 Nonrheumatic aortic (valve) stenosis with insufficiency (principal) | CPT/HCPCS: 93306 ==

== ENCOUNTER 2023-03-11 10:44 | Outpatient (REF) | payer MEDICARE, SELFPAY | END 2023-03-11 10:45 | disposition home or self-care (01) | LOC: HO.LNP 10:44 | PROVIDERS: PCP Internal Medicine; Visit Provider Nurse Practitioner Family | DX: R33.9 Retention of urine, unspecified (principal); R35.0 Frequency of micturition; R35.1 Nocturia; R39.9 Unspecified symptoms and signs involving the genitourinary system; N40.0 Benign prostatic hyperplasia without lower urinary tract symptoms; E66.9 Obesity, unspecified; I10 Essential (primary) hypertension; Z87.891 Personal history of nicotine dependence; Z79.899 Other long term (current) drug therapy | CPT/HCPCS: 51798; 81003; 87086; 99202 ==

== ENCOUNTER 2023-03-11 10:44 | Outpatient (AMB) | payer MEDICARE, SELFPAY ==
--- NOTE | 2023-03-11 11:08 | A.OFFVIS_ITS ---
Intake Intake Visit Reasons: Incomplete bladder emptying Intake Note: New Patient presents for initial visit for incomplete bladder emptying Urology Medications: tamsulosin Blood Thinner: apixaban, clopidogrel PVR: 0ml's Clinical Outcomes Manager Required: No Accompanied by: Self / Same As Patient Allergies hydrochlorothiazide Allergy (Severe, Verified 03/11/23 20:40) Anaphylaxis lisinopril Allergy (Severe, Verified 03/11/23 20:40) Anaphylaxis Penicillins Allergy (Severe, Verified 03/11/23 20:40) Anaphylaxis regadenoson [From Lexiscan] Adverse Reaction (Verified 03/11/23 20:40) Bradycardic Medication List - Last Reconciled 03/11/23 by EVA Rodriguez adalimumab (Humira(CF) Pen) 40 mg subcut Q2W albuterol sulfate 90 mcg/actuation (ProAir HFA) 2 puffs inhalation Q6H PRN apixaban (Eliquis) 5 mg PO BID atorvastatin 80 mg PO BEDTIME [id number]-[id number] 160-9-4.8 mcg/actuation (Breztri Aerosphere) 2 inhalations inhalation BID cholecalciferol (vitamin D3) 50 mcg PO DAILY 30 days clopidogrel 75 mg PO DAILY compress.stocking,knee,reg,med As directed 20-30 mm HG cyanocobalamin (vitamin B-12) (Vitamin B-12) 1,000 mcg PO DAILY digoxin 125 mcg PO MOWEFR diltiazem HCl 300 mg PO DAILY ketorolac 0.5% drps ophthalmic (eye) levothyroxine 50 mcg PO DAILY@0600 metoprolol tartrate 50 mg (2 x 25 mg) PO BID 90 days [OXYGEN 2 L NC keep sats > 90 As directed] [PORTABLE OXYGEN TANK As directed] tamsulosin 0.8 mg (2 x 0.4 mg) PO DAILY 30 days HPI HPI Comments History of Present Illness Details Pablito is a very pleasant 77-year-old male patient of Dr. Delgado. He has a past medical history of interstitial lung disease, COPD, hypothyro idism, obesity, paroxysmal atrial fibrillation, pulmonary nodules, coronary artery disease, hypertension, nephrolithiasis, vitamin-D deficiency, psoriasis, hypercholesteremia, and former smoker. He presents to the office today as a new patient for incomplete bladder emptying. In discussion with the patient today he reports following up with his PCP and mentioning his ongoing issues with nocturia. He reports noting issues to have been ongoing however feels symptoms are worsening. In review of patient's chart it appears retroperitoneal ultrasound was ordered and has since been completed. These results were reviewed with the patient today. Right kidney with no calculi, and or hydronephrosis. 1.0 x 1.1 x 1.2 cm simple cyst in the mid kidney is seen. No imaging follow-up is recommended per radiology report left kidney with no lesions, and or hydronephrosis. Multiple echogenic foci within the kidney, nonshadowing, without twinkle artifact, likely represent vascular calcifications. The bladder is well distended and normal. Bilateral ureteral jets are demonstrated. Pre void bladder volume is approximately 200 mL. Postvoid bladder volume is approximately 100 mL. The prostate is normal in size with a volume of 22 mL. Patient reports having started Flomax and noting over the last 1-2 weeks somewhat improvement in nocturia. He reports episodes have decreased from approximately 10 times per night to 5 times per night. He does report urinary frequency throughout the day however does not find this bothersome. He otherwise denies incontinence, hematuria, dysuria, foul smelling urine, changes to urinary stream, flank pain, fever, and or chills. In office urinalysis results reviewed with the patient today. PVR 0 mL. PSAs are as follows: 05/12--0.2 02/09--0.2 Discussed at length potential causes for lower urinary tract symptoms patient is experiencing. Discussed obtaining PSA for further assessment evaluation. BERENICE offered however deferred. Patient otherwise denies any bothersome urinary issues or concerns at this time. [facility] Medical History ILD (interstitial lung disease) COPD (chronic obstructive pulmonary disease) Tubular adenoma of colon (~2021) Postoperative hypothyroidism Obesity (BMI 30-39.9) Atrial fibrillation Chest discomfort Bronchitis Hemoptysis HOLLOWAY (dyspnea on exertion) Abnormal SPEP Multinodular thyroid Swelling of left lower extremity Pulmonary nodules/lesions, multiple Ground glass opacity present on imaging of lung Wedge compression fracture of T9 vertebra (~2018) Coronary artery disease Hypertension Right renal stone Thyroid nodule Vitamin D deficiency Ascending aorta dilatation Obesity (BMI 30-39.9) Psoriasis Hypercholesterolemia Former smoker Stable angina Surgical History History of partial thyroidectomy (~2020) History of heart artery stent (~2019) History of colonoscopy History of cardioversion (~2020) History of appendectomy History of tonsillectomy History of lung biopsy (~2016) Family History Father Heart disease Mother Throat cancer Paternal Grandfather Heart disease Social History Household Members: Spouse Housing: House Are you a primary healthcare insurance sales agent to a significant other at home: No Do you presently have visiting nurse or other home services: No Alcohol intake: former Year quit: 2014 Patient Tobacco Use Status: Former Tobacco user Quit Date: 2014 Tobacco use type: Cigarette Years Smoked: 50 e-Cigarette/Vaping Use: Never Used Second Hand Smoke Exposure: No Advance Directives Date on File: 09/21/20 service: Yes Current occupational status: retired Cognitive needs: No Hearing needs: No Vision needs: Yes Review of Systems Eyes Reports no additional complaints ENT Reports no additional complaints Card Reports as per HPI Resp Reports as per HPI GI Reports as per HPI Reports as per HPI Musc Reports as per HPI Neuro Reports as per HPI Psych Reports no additional complaints Endo Reports as per HPI Physical Exam Const General: cooperative, comfortable, no acute distress, well developed, alert and awake Orientation/consciousness: patient oriented x3 HEENT Head: Yes normal to inspection, Yes normocephalic and Yes atraumatic Ears: hearing grossly normal bilaterally Eyes General: appearance normal, both eyes and all related structures Neck Neck: Yes normal visual inspection and Yes trachea midline Chest Chest palpation & inspection: normal inspection of the chest Resp Effort & Inspection: normal respiratory effort and able to speak in complete sentences Cardio Rate: regular rate GI Inspection: Yes normal to inspection General: Yes no CVA tenderness Back/Spine/Pelvis Back: no CVA tenderness Skin General skin exam: no rashes or lesions noted Neuro General: patient oriented x3 Extrem General: Yes normal to inspection Psych Appearance: grossly normal and well kempt Mental Status: mental status grossly normal Speech and movement: Normal speech and movement present and Clear speech present Affect: normal affect Attitude: cooperative Thought process: Normal thought process present Thought content: Normal thought content present Insight: Fair insight present (Psych) Judgement: Fair judgement present (Psych) Office Procedures Post Void Residual Post Residual Void Post Void Residual (PVR): 0 [id number]-[id number] Void Residual by ultrasound Results AMB Urinalysis, Automated UA Leukoctes 125 Kiana/uL Last Edit by Mau Sarkar on 03/11/23 11:37 UA Nitrite Last Edit by Mau Sarkar on 03/11/23 11:37 UA Urobilinogen 0.2 mg/dL Last Edit by Adomikcarin Sarkar on 03/11/23 11:37 UA Protein 0 mg/dL Last Edit by [employer] on 03/11/23 11:37 UA pH 6.0 Last Edit by [employer] on 03/11/23 11:37 UA Blood 0 Sam/uL Last Edit by Adomikcarin [employer] on 03/11/23 11:37 UA Specific Clinton 1.030 Last Edit by [employer] on 03/11/23 11:37 UA Ketone Negative Last Edit by Adom[employer]carin [employer] on 03/11/23 11:37 UA Bilirubin 0 mg/dL Last Edit by [employer] on 03/11/23 11:37 UA Glucose 0 mg/dL Last Edit by [employer] on 03/11/23 11:37 Results Reviewed Results Reviewed: Laboratory Last Values Urine pH (Auto) 6.0 03/11/23 11:16 Specific Clinton (Auto) 1.030 03/11/23 11:16 Urine Protein (Auto) 0 mg/dL 03/11/23 11:16 Glucose (UA)(Auto) 0 mg/dL 03/11/23 11:16 Urine Ketones (Auto) Negative 03/11/23 11:16 Urine Blood (Auto) 0 Sam/uL 03/11/23 11:16 Urine Bilirubin (Auto) 0 mg/dL 03/11/23 11:16 Urine Urobilinogen (Auto) 0.2 mg/dL 03/11/23 11:16 Leukocyte Esterase (Auto) 125 Kiana/uL 03/11/23 11:16 Date of Service: 01/21/23 EXAMINATION: US RETROPERITONEAL COMPLETE (RENAL) FINDINGS: RIGHT KIDNEY: 11.1 x 5.9 x 6.9 cm (SAG x AP x TRV). The kidney is normal in size, contour, and echogenicity. Renal cortical thickness is normal. No calculi. No hydronephrosis. 1.0 x 1.1 x 1.2 cm simple cyst in the mid kidney is seen. No imaging follow-up of this finding is recommended. LEFT KIDNEY: 11.1 x 5.3 x 6.2 cm (SAG x AP x TRV). The kidney is normal in size, contour, and echogenicity. Renal cortical thickness is normal. No calculi or focal parenchymal lesions. No hydronephrosis. Multiple echogenic foci within the kidney, nonshadowing, without twinkle artifact, likely represent vascular calcifications. BLADDER: Well distended and normal. Bilateral ureteral jets are demonstrated. Prevoid bladder volume is 185 mL. Postvoid bladder volume is 98 mL. The prostate is normal size with a volume of 22 mL. IMPRESSION: 1. No significant abnormality of the kidneys. 2. Normal size prostate. 3. Large post void residual. Assessment & Plan Assessment & Plan (1) Frequency of micturition: Code(s): R35.0 - Frequency of micturition (2) Nocturia: Code(s): R35.1 - Nocturia (3) Lower urinary tract symptoms: Code(s): R39.9 - Unspecified symptoms and signs involving the genitourinary system Plan In office urinalysis results reviewed with the patient today; as noted above; will send for urine culture. PVR 0 mL. Discussed at length potential causes for lower urinary tract symptoms patient is experiencing. Discussed increase in Flomax to 0.8 mg daily as discussed and prescribed Recent retroperitoneal ultrasound results reviewed with the patient today; as noted above. Will obtain PSA for further assessment evaluation. Follow-up in 6 weeks with lab to be completed prior; or sooner with any issues, concerns, and or questions. Orders: Orders Prostate Specific Antigen Today N40.0 - Benign prostatic hyperplasia without lower urinary tract symptoms Urine Culture Today R33.9 - Retention of urine, unspecified AMB Urinalysis Automated Today Z13.9 - Encounter for screening, unspecified AMB Post Void Residual by ultrasound Today R33.9 - Retention of urine, unspecified Medications: Changed From tamsulosin 0.4 mg PO BEDTIME 30 caps 2RF R33.9 - Retention of urine, unspecified To tamsulosin This is an increase in the dose Patient can take one tab PO BID or Two tabs po at HS 0.8 mg (2 x 0.4 mg) PO DAILY 30 days 60 caps 2RF R33.9 - Retention of urine, unspecified Patient Instructions: The patient had an opportunity to ask questions regarding the treatment plan. All questions were answered. Physical exam, labs, and imaging were discussed and reviewed in detail. As well as risks, benefits, and discussion of treatment choices. No major barriers to understanding were identified. The patient expressed understanding and agreement with the above treatment plan. The patient was made aware they should contact our office by phone for worsening of their current condition, the appearance of new symptoms, or with any questions or concerns. Compliance is encouraged with any medications and follow up testing that is ordered. It is a privilege to be allowed the opportunity to participate in? your urological care.? Again, if you have any questions or concerns If you have any questions or concerns please do not hesitate to contact me. The office is [phone]. This note is constructed using voice recognition software. While every effort has been made to ensure accuracy inside wirer errors may have been included. Yours sincerely, EVA Rodriguez Coding Level of Care Code New Pt Level 4 (13238) Diagnoses Frequency of micturition R35.0 Nocturia R35.1 Lower urinary tract symptoms R39.9 CPT Codes Post Residual Void - PVR CPT Code: 43782-[id number] Void Residual by ultrasound ([id number])
== END 2023-03-11 11:47 | disposition home or self-care (01) ==
PROVIDERS: PCP Internal Medicine; Visit Provider Nurse Practitioner Family
DX: R35.0 Frequency of micturition (principal); R35.1 Nocturia; R39.9 Unspecified symptoms and signs involving the genitourinary system
CPT/HCPCS: 99204; 99214

== ENCOUNTER 2023-03-12 08:07 | Outpatient (REF) | payer MEDICARE, SELFPAY ==
[2023-03-12 11:54] LABS: Prostate Specific Antigen 0.16 ng/mL (<0.05-4.0)
== END 2023-03-12 08:08 | disposition home or self-care (01) ==
LOC: HO.HMGCLDS 08:07
PROVIDERS: PCP Internal Medicine; Visit Provider Nurse Practitioner Family
DX: N40.0 Benign prostatic hyperplasia without lower urinary tract symptoms (principal); Z12.5 Encounter for screening for malignant neoplasm of prostate
CPT/HCPCS: 36415; 84153

== ENCOUNTER 2023-03-19 08:41 | Outpatient (AMB) | payer MEDICARE, SELFPAY ==
[2023-03-19 08:55] VITALS: BP 110/62; PULSE 61; O2SAT 93; BMI 32.7
--- NOTE | 2023-03-19 08:55 | MHC.OFFVIS ---
Intake Vital Signs 03/19/23 08:55 Height 5 ft 8 in Weight 214 lb 15.211 oz BMI 32.7 BP 110/62 Blood Pressure Location Lt brachial Position Sitting Pulse 61 Pulse Source Doppler Pulse Oximetry (%) 93 Oxygen Delivery Method Room Air Intake Visit Reasons: COPD Allergies hydrochlorothiazide Allergy (Severe, Verified 03/19/23 08:56) Anaphylaxis lisinopril Allergy (Severe, Verified 03/19/23 08:56) Anaphylaxis Penicillins Allergy (Severe, Verified 03/19/23 08:56) Anaphylaxis regadenoson [From Lexiscan] Adverse Reaction (Verified 03/19/23 08:56) Bradycardic HPI COPD HPI Details 77-year-old gentleman, former 100+ pack-year smoker, quit 2014, with prior history of left lower lobe nodule biopsy benign in etiology, also on Humira for underlying psoriatic arthritis, followed for COPD and abnormal CT chest that demonstrated bilateral ground-glass densities that have been waxing and waning with some underlying pulmonary fibrosis. He has been tried on prednisone with no symptomatic or radiologic response.? He has been using BrezTri with reasonable control of his symptoms.? He has been using supplemental oxygen with exertion.? Patient was participating pulmonary rehab until he got his cataract surgery in November, however he would like to resume it. He denies recent exacerbations. [facility] Medical History ILD (interstitial lung disease) COPD (chronic obstructive pulmonary disease) Tubular adenoma of colon (~2021) Postoperative hypothyroidism Obesity (BMI 30-39.9) Atrial fibrillation Chest discomfort Bronchitis Hemoptysis HOLLOWAY (dyspnea on exertion) Abnormal SPEP Multinodular thyroid Swelling of left lower extremity Pulmonary nodules/lesions, multiple Ground glass opacity present on imaging of lung Wedge compression fracture of T9 vertebra (~2018) Coronary artery disease Hypertension Right renal stone Thyroid nodule Vitamin D deficiency Ascending aorta dilatation Obesity (BMI 30-39.9) Psoriasis Hypercholesterolemia Former smoker Stable angina Surgical History History of partial thyroidectomy (~2020) History of heart artery stent (~2019) History of colonoscopy History of cardioversion (~2020) History of appendectomy History of tonsillectomy History of lung biopsy (~2016) Family History Father Heart disease Mother Throat cancer Paternal Grandfather Heart disease Household Members: Spouse Housing: House Are you a primary behavioral health care manager to a significant other at home: No Do you presently have visiting nurse or other home services: No Alcohol intake: former Year quit: 2014 Patient Tobacco Use Status: Former Tobacco user Quit Date: 2014 Tobacco use type: Cigarette Years Smoked: 50 e-Cigarette/Vaping Use: Never Used Second Hand Smoke Exposure: No Advance Directives Date on File: 09/21/20 service: Yes Current occupational status: retired Cognitive needs: No Hearing needs: No Vision needs: Yes Review of Systems Const Denies daytime sleepiness, Denies excessive sweating, Denies fatigue, Denies fever(s), Denies lethargy, Denies malaise, Denies night sweats, Denies snoring and Denies weight loss Eyes Denies blurry vision and Denies itchy eyes ENT Denies nasal congestion, Denies post nasal drip, Denies sinus pain, Denies sinus pressure and Denies other ( Thrush) Card Denies chest pain, Denies pedal edema, Denies dyspnea, Denies orthopnea and Denies paroxysmal nocturnal dyspnea Resp Denies cough, Denies hemoptysis, Denies excessive phlegm production, Denies dyspnea, Denies snoring and Denies wheezing GI Denies abdominal pain and Denies heartburn Musc Denies myalgias, Denies arthralgias and Denies joint swelling Skin/Breast Denies rash Neuro Denies memory loss and Denies seizure-like activity Psych Denies abnormal sleep pattern, Denies anxiety and Denies memory loss Endo Denies excessive sweating, Denies fatigue and Denies heat intolerance Zhou/Lymph Denies easy bruising Aller/Immun Denies itchy eyes, Denies seasonal rhinorrhea and Denies wheezing Physical Exam Vital Signs: Last Vital Signs Pulse 61 03/19/23 08:55 BP 110/62 03/19/23 08:55 Pulse Ox 93 03/19/23 08:55 Oxygen Delivery Method Room Air 03/19/23 08:55 BMI result Body Mass Index 32.7 Const General: no acute distress and alert Nutritional Appearance: not obese Orientation/consciousness: Other orientation findings ( oriented) HEENT Head: Yes atraumatic Eyes General: appearance normal, both eyes and all related structures Sclerae: sclerae normal EOM: EOMs intact bilaterally Neck Neck: Yes supple Lymphatic: no lymphadenopathy noted Resp Effort & Inspection: normal respiratory effort and no use of accessory muscles Auscultation: clear to auscultation bilaterally Cardio Rate: regular rate Rhythm: regular rhythm Heart sounds: no gallops, no murmurs and no rubs Skin General skin exam: other ( warm) Extrem General: No clubbing, No cyanosis and No edema Assessment & Plan Assessment & Plan (1) Supplemental oxygen dependent: Code(s): Z99.81 - Dependence on supplemental oxygen Plan: Continues mental oxygen to maintain O2 saturation of 88-92%. Will obtain overnight oximetry. (2) COPD (chronic obstructive pulmonary disease): Code(s): J44.9 - Chronic obstructive pulmonary disease, unspecified (3) ILD (interstitial lung disease): Code(s): J84.9 - Interstitial pulmonary disease, unspecified Plan Combined COPD/IPF with reasonable control on BrezTri and albuterol MDI. Continue current regimen. Coding Level of Care Code Est Pt Level 4 (09552) Diagnoses Supplemental oxygen dependent Z99.81 COPD (chronic obstructive pulmonary disease) J44.9 ILD (interstitial lung disease) J84.9
== END 2023-03-19 09:21 | disposition home or self-care (01) ==
PROVIDERS: PCP Internal Medicine; Visit Provider Internal Medicine Pulmonary Disease
DX: Z99.81 Dependence on supplemental oxygen (principal); J44.9 Chronic obstructive pulmonary disease, unspecified; J84.9 Interstitial pulmonary disease, unspecified
CPT/HCPCS: 99214

== ENCOUNTER → 2023-03-19 08:41 | Outpatient (BNVA) | payer MEDICARE, SELFPAY | PROVIDERS: PCP Internal Medicine; Visit Provider Internal Medicine Pulmonary Disease | DX: J44.9 Chronic obstructive pulmonary disease, unspecified (principal); J84.9 Interstitial pulmonary disease, unspecified; Z99.81 Dependence on supplemental oxygen | CPT/HCPCS: 99212 ==

== ENCOUNTER → 2023-03-28 08:45 | Outpatient (BNVA) | payer MEDICARE, SELFPAY | PROVIDERS: PCP Internal Medicine; Visit Provider Nurse Practitioner Family | DX: Z79.899 Other long term (current) drug therapy (principal) | CPT/HCPCS: 51798 ==

== ENCOUNTER 2023-04-09 08:20 | Outpatient (AMB) | payer MEDICARE, SELFPAY ==
--- NOTE | 2023-04-09 08:29 | A.OFFVIS_ITS ---
Intake Intake Visit Reasons: 4w/PSA(set) Intake Note: Patient presents for follow up visit for incomplete bladder emptying/psa lab (psa 0.16) Urology Medications: tamsulosin Blood Thinner: apixaban, clopidogrel PVR: 37ml's Worker'S Compensation Claims Examiner Required: No Accompanied by: Self / Same As Patient Allergies hydrochlorothiazide Allergy (Severe, Verified 04/09/23 09:12) Anaphylaxis lisinopril Allergy (Severe, Verified 04/09/23 09:12) Anaphylaxis Penicillins Allergy (Severe, Verified 04/09/23 09:12) Anaphylaxis regadenoson [From Lexiscan] Adverse Reaction (Verified 04/09/23 09:12) Bradycardic Medication List - Last Reconciled 04/09/23 by ADRIÁN Rodriguez-BEAU adalimumab (Humira(CF) Pen) 40 mg subcut Q2W albuterol sulfate 90 mcg/actuation (ProAir HFA) 2 puffs inhalation Q6H PRN apixaban (Eliquis) 5 mg PO BID atorvastatin 80 mg PO BEDTIME [id number]-hwdyimsh-soorzrfhqd 160-9-4.8 mcg/actuation (Breztri Aerosphere) 2 inhalations inhalation BID cholecalciferol (vitamin D3) 50 mcg PO DAILY 30 days clopidogrel 75 mg PO DAILY compress.stocking,knee,reg,med As directed 20-30 mm HG cyanocobalamin (vitamin B-12) (Vitamin B-12) 1,000 mcg PO DAILY digoxin 125 mcg PO MOWEFR diltiazem HCl 300 mg PO DAILY furosemide 40 mg PO QAM ketorolac 0.5% drps ophthalmic (eye) levothyroxine 50 mcg PO DAILY@0600 metoprolol tartrate 50 mg (2 x 25 mg) PO BID 90 days [OXYGEN 2 L NC keep sats > 90 As directed] [PORTABLE OXYGEN TANK As directed] tamsulosin 0.8 mg (2 x 0.4 mg) PO DAILY 30 days HPI HPI Comments History of Present Illness Details Pablito is a very pleasant 77-year-old male patient of Dr. Delgado. He has a past medical history of interstitial lung disease, COPD, hypothyroidism, obesity, paroxysmal atrial fibrillation, pulmonary nodules, coronary artery disease, hypertension, nephrolithiasis, vitamin-D deficiency, psoriasis, hypercholesteremia, and former smoker. He presents to the office today for follow-up. Of note, patient was seen approximately a month ago as a new patient for incomplete bladder emptying at which time his Flomax was increased from daily to b.i.d. when asked he reports significant improvement in lower urinary tract symptoms with 0.8 mg of Flomax at bedtime. Previous workup has included a retroperitoneal ultrasound noting right kidney with no calculi, and or hydronephrosis. 1.0 x 1.1 x 1.2 cm simple cyst in the mid kidney is seen. No imaging follow-up is recommended per radiology report left kidney with no lesions, and or hydronephrosis. Multiple echogenic foci within the kidney, nonshadowing, without twinkle artifact, likely represent vascular calcifications. The bladder is well distended and normal. Bilateral ureteral jets are demonstrated. Pre void bladder volume is approximately 200 mL. Postvoid bladder volume is approximately 100 mL. The prostate is normal in size with a volume of 22 mL. He reports episodes have decreased from approximately 10 times per night to 2 times per night. He does report urinary frequency throughout the day however does not find this bothersome. He otherwise denies incontinence, hematuria, dysuria, foul smelling urine, changes to urinary stream, flank pain, fever, and or chills. In office urinalysis results reviewed with the patient today. PVR 37 mLs. PSAs are as follows: 05/12--0.2 02/09--0.2 03/14--0.2 Discussed at length potential causes for lower urinary tract symptoms patient was/is experiencing.Patient otherwise denies any bothersome urinary issues or concerns at this time. [facility] Medical History ILD (interstitial lung disease) COPD (chronic obstructive pulmonary disease) Tubular adenoma of colon (~2021) Postoperative hypothyroidism Obesity (BMI 30-39.9) Atrial fibrillation Chest discomfort Bronchitis Hemoptysis HOLLOWAY (dyspnea on exertion) Abnormal SPEP Multinodular thyroid Swelling of left lower extremity Pulmonary nodules/lesions, multiple Ground glass opacity present on imaging of lung Wedge compression fracture of T9 vertebra (~2018) Coronary artery disease Hypertension Right renal stone Thyroid nodule Vitamin D deficiency Ascending aorta dilatation Obesity (BMI 30-39.9) Psoriasis Hypercholesterolemia Former smoker Stable angina Surgical History History of partial thyroidectomy (~2020) History of heart artery stent (~2019) History of colonoscopy History of cardioversion (~2020) History of appendectomy History of tonsillectomy History of lung biopsy (~2016) Family History Father Heart disease Mother Throat cancer Paternal Grandfather Heart disease Social History Household Members: Spouse Housing: House Are you a primary professional healthcare representative to a significant other at home: No Do you presently have visiting nurse or other home services: No Alcohol intake: former Year quit: 2014 Patient Tobacco Use Status: Former Tobacco user Quit Date: 2014 Tobacco use type: Cigarette Years Smoked: 50 e-Cigarette/Vaping Use: Never Used Second Hand Smoke Exposure: No Advance Directives Date on File: 09/21/20 service: Yes Current occupational status: retired Cognitive needs: No Hearing needs: No Vision needs: Yes Review of Systems Eyes Reports no additional complaints ENT Reports no additional complaints Card Reports as per HPI Resp Reports as per HPI GI Reports as per HPI Reports as per HPI Musc Reports as per HPI Neuro Reports as per HPI Psych Reports no additional complaints Endo Reports as per HPI Physical Exam Const General: cooperative, comfortable, no acute distress, well developed, alert and awake Orientation/consciousness: patient oriented x3 HEENT Head: Yes normal to inspection, Yes normocephalic and Yes atraumatic Ears: hearing grossly normal bilaterally Eyes General: appearance normal, both eyes and all related structures Neck Neck: Yes normal visual inspection and Yes trachea midline Chest Chest palpation & inspection: normal inspection of the chest Resp Effort & Inspection: normal respiratory effort and able to speak in complete sentences Cardio Rate: regular rate GI Inspection: Yes normal to inspection General: Yes no CVA tenderness Back/Spine/Pelvis Back: no CVA tenderness Skin General skin exam: no rashes or lesions noted Neuro General: patient oriented x3 Extrem General: Yes normal to inspection Psych Appearance: grossly normal and well kempt Mental Status: mental status grossly normal Speech and movement: Normal speech and movement present and Clear speech present Affect: normal affect Attitude: cooperative Thought process: Normal thought process present Thought content: Normal thought content present Insight: Fair insight present (Psych) Judgement: Fair judgement present (Psych) Office Procedures Post Void Residual Post Residual Void Post Void Residual (PVR): 37 [id number] Void Residual by ultrasound Results AMB Urinalysis, Automated UA Leukoctes 125 Kiana/uL Last Edit by Mau Sarkar on 04/09/23 08:57 UA Nitrite Negative Last Edit by Mau Sarkar on 04/09/23 08:57 UA Urobilinogen 0.2 mg/dL Last Edit by Mau Sarkar on 04/09/23 08:57 UA Protein 0 mg/dL Last Edit by Mau Sarkar on 04/09/23 08:57 UA pH 7.0 Last Edit by Mau Sarkar on 04/09/23 08:57 UA Blood 0 Sam/uL Last Edit by Mau Sarkar on 04/09/23 08:57 UA Specific Biola 1.010 Last Edit by Mau Sarkar on 04/09/23 08:57 UA Ketone Negative Last Edit by Mau Sarkar on 04/09/23 08:57 UA Bilirubin 0 mg/dL Last Edit by Mau Sarkar on 04/09/23 08:57 UA Glucose 0 mg/dL Last Edit by Mau Sarkar on 04/09/23 08:57 Results Reviewed Results Reviewed: Laboratory Last Values Urine pH (Auto) 7.0 04/09/23 08:38 Specific Biola (Auto) 1.010 04/09/23 08:38 Urine Protein (Auto) 0 mg/dL 04/09/23 08:38 Glucose (UA)(Auto) 0 mg/dL 04/09/23 08:38 Urine Ketones (Auto) Negative 04/09/23 08:38 Urine Blood (Auto) 0 Sam/uL 04/09/23 08:38 Urine Nitrite (Auto) Negative 04/09/23 08:38 Urine Bilirubin (Auto) 0 mg/dL 04/09/23 08:38 Urine Urobilinogen (Auto) 0.2 mg/dL 04/09/23 08:38 Leukocyte Esterase (Auto) 125 Kiana/uL 04/09/23 08:38 Assessment & Plan Assessment & Plan (1) Lower urinary tract symptoms: Code(s): R39.9 - Unspecified symptoms and signs involving the genitourinary system (2) Nocturia: Code(s): R35.1 - Nocturia (3) Frequency of micturition: Code(s): R35.0 - Frequency of micturition (4) Renal cyst: Code(s): N28.1 - Cyst of kidney, acquired Plan In office urinalysis results reviewed with the patient today; as noted above. Denies any UTI like symptoms at this time PVR 37 mL. Recent PSA results reviewed with the patient today; as noted above. Patient reports to be happy with current voiding parameters on 0.8 mg of Flomax at HS; will continue; refill provided Patient otherwise denies any bothersome urinary issues or concerns at this time. Discussed importance of limiting fluids 2-3 hours prior to bed to assist with decreasing episodes of nocturia Discussed bladder triggers/irritants. Follow-up in 6 months with PVR; or sooner with any issues, concerns, and or questions. Orders: Orders AMB Post Void Residual by ultrasound Today R35.1 - Nocturia AMB Urinalysis Automated Today Z13.9 - Encounter for screening, unspecified Patient Instructions: The patient had an opportunity to ask questions regarding the treatment plan. All questions were answered. Physical exam, labs, and imaging were discussed and reviewed in detail. As well as risks, benefits, and discussion of treatment choices. No major barriers to understanding were identified. The patient expressed understanding and agreement with the above treatment plan. The patient was made aware they should contact our office by phone for worsening of their current condition, the appearance of new symptoms, or with any questions or concerns. Compliance is encouraged with any medications and follow up testing that is ordered. It is a privilege to be allowed the opportunity to participate in? your urological care.? Again, if you have any questions or concerns If you have any questions or concerns please do not hesitate to contact me. The office is [phone]. This note is constructed using voice recognition software. While every effort has been made to ensure accuracy digital analytics manager errors may have been included. Yours sincerely, EVA Rodriguez Coding Level of Care Code Est Pt Level 3 (39813) Diagnoses Lower urinary tract symptoms R39.9 Nocturia R35.1 Frequency of micturition R35.0 Renal cyst N28.1 CPT Codes Post Residual Void - PVR CPT Code: 74530-Rwwa Void Residual by ultrasound ([id number])
== END 2023-04-09 09:30 | disposition home or self-care (01) ==
PROVIDERS: PCP Internal Medicine; Visit Provider Nurse Practitioner Family
DX: R39.9 Unspecified symptoms and signs involving the genitourinary system (principal); R35.1 Nocturia; R35.0 Frequency of micturition; N28.1 Cyst of kidney, acquired; Z13.9 Encounter for screening, unspecified
CPT/HCPCS: 99213

== ENCOUNTER → 2023-04-09 08:20 | Outpatient (BNVA) | payer MEDICARE, SELFPAY | PROVIDERS: PCP Internal Medicine; Visit Provider Nurse Practitioner Family | DX: R39.9 Unspecified symptoms and signs involving the genitourinary system (principal); R35.1 Nocturia; R35.0 Frequency of micturition; N28.1 Cyst of kidney, acquired | CPT/HCPCS: 51798; 81003; 99212 ==

== ENCOUNTER 2023-04-10 14:57 | Outpatient (AMB) | payer MEDICARE, SELFPAY ==
[2022-10-19 10:34] VITALS: BMI 32.0
--- NOTE | 2023-04-10 15:13 | A.OFFVIS_ITS ---
Intake Vital Signs 04/10/23 15:14 Height 5 ft 8 in Weight 212 lb 1.355 oz BMI 32.2 BP 142/80 H Blood Pressure Location Lt brachial Position Sitting Pulse 121 H Intake Visit Reasons: 4 mth f/up Intake Note: 4 month follow up Security Installation Technician Required: No Accompanied by: Self / Same As Patient Allergies hydrochlorothiazide Allergy (Severe, Verified 04/10/23 15:16) Anaphylaxis lisinopril Allergy (Severe, Verified 04/10/23 15:16) Anaphylaxis Penicillins Allergy (Severe, Verified 04/10/23 15:16) Anaphylaxis regadenoson [From Lexiscan] Adverse Reaction (Verified 04/10/23 15:16) Bradycardic Medication List - Last Reconciled 04/10/23 by Ja Jean-Baptiste MD adalimumab (Humira(CF) Pen) 40 mg subcut Q2W albuterol sulfate 90 mcg/actuation (ProAir HFA) 2 puffs inhalation Q6H PRN apixaban (Eliquis) 5 mg PO BID atorvastatin 80 mg PO BEDTIME [id number]-ysswshzj-qadtrddpkf 160-9-4.8 mcg/actuation (Breztri Aerosphere) 2 inhalations inhalation BID cholecalciferol (vitamin D3) 50 mcg PO DAILY 30 days clopidogrel 75 mg PO DAILY compress.stocking,knee,reg,med As directed 20-30 mm HG cyanocobalamin (vitamin B-12) (Vitamin B-12) 1,000 mcg PO DAILY digoxin 125 mcg PO MOWEFR diltiazem HCl 300 mg PO DAILY furosemide 40 mg PO QAM levothyroxine 50 mcg PO DAILY@0600 metoprolol tartrate 50 mg (2 x 25 mg) PO BID 90 days [OXYGEN 2 L NC keep sats > 90 As directed] [PORTABLE OXYGEN TANK As directed] tamsulosin 0.8 mg (2 x 0.4 mg) PO DAILY 90 days HPI HPI Comments History of Present Illness Details 77-year-old gentleman here for follow-up . He is denying any chest discomfort No bleeding issues. Has been in chronic atrial fibrillation. Overall doing old without any significant bleeding issues or chest discomfort. Compliant with medications. He has dyspnea on exertion and has underlying lung disease. He is saying he has been started on supplemental oxygen which she is supposed to wear with activities. He previously had RCA PCI and his presentation was with dyspnea at that time too. He is saying that his lung disease is progressed and recently after CT scan he was told by pulmonology that he has interstitial lung disease. He is saying his breathing is worsened in the last 6 months. His denying any chest discomfort. As before using supplemental oxygen as needed. 12/10/22: He returns for follow-up. On last visit was complaining of shortness of breath. He has lung disease which is the cause for dyspnea but previously had dyspnea as an anginal equivalent to. After discussion with [facility] and when Lexiscan in October 2022 which was normal. He is saying his breathing is at baseline. He has been using oxygen over the last several months with ambulation. He is following closely with pulmonology. No chest discomfort or any other concerning symptoms. Blood pressure control is good. He has permanent atrial fibrillation. 04/10/2023: He returns for follow-up. Jaime ruiz is denying any significant symptoms. He is on supplemental oxygen and has been using oxygen more frequently. He has been more sedentary. His blood pressure and heart rate both were elevated in the office. He is taking his medications as before and has not missed his medications. He is complaining of some fatigue too. He said that he has not been exercising but plans to restart pulmonary rehabilitation. His repeat blood pressure was 140/80 manually. His heart rate was still in low 100s after resting. He is saying at home he has checked his heart rate before and was anywhere from 60-80. [facility] Medical History ILD (interstitial lung disease) COPD (chronic obstructive pulmonary disease) Tubular adenoma of colon (~2021) Postoperative hypothyroidism Obesity (BMI 30-39.9) Atrial fibrillation Chest discomfort Bronchitis Hemoptysis HOLLOWAY (dyspnea on exertion) Abnormal SPEP Multinodular thyroid Swelling of left lower extremity Pulmonary nodules/lesions, multiple Ground glass opacity present on imaging of lung Wedge compression fracture of T9 vertebra (~2018) Coronary artery disease Hypertension Right renal stone Thyroid nodule Vitamin D deficiency Ascending aorta dilatation Obesity (BMI 30-39.9) Psoriasis Hypercholesterolemia Former smoker Stable angina Surgical History History of partial thyroidectomy (~2020) History of heart artery stent (~2019) History of colonoscopy History of cardioversion (~2020) History of appendectomy History of tonsillectomy History of lung biopsy (~2016) Family History Father Heart disease Mother Throat cancer Paternal Grandfather Heart disease Social History Household Members: Spouse Housing: House Are you a primary child care education coordinator to a significant other at home: No Do you presently have visiting nurse or other home services: No Alcohol intake: former Year quit: 2014 Patient Tobacco Use Status: Former Tobacco user Quit Date: 2014 Tobacco use type: Cigarette Years Smoked: 50 e-Cigarette/Vaping Use: Never Used Second Hand Smoke Exposure: No Advance Directives Date on File: 09/21/20 service: Yes Current occupational status: retired Cognitive needs: No Hearing needs: No Vision needs: Yes Review of Systems Const Denies weakness ENT Denies dizziness Card Denies chest pain, Denies chest pain with activity, Denies syncope, Denies rapid heart rate, Denies pedal edema, Denies edema, Denies leg edema, Denies lightheadedness, Denies palpitations, Denies dyspnea, Denies dyspnea on exertion and Denies orthopnea Resp Denies cough, Denies dyspnea and Denies dyspnea on exertion GI Denies hematochezia and Denies change in stool character Musc Denies abnormal gait, Denies muscle cramps, Denies muscle weakness, Denies numbness, Denies radiating pain into limb and Denies tingling Neuro Denies abnormal gait, Denies dizziness, Denies syncope, Denies numbness, Denies tingling and Denies weakness Endo Denies palpitations Physical Exam Vital Signs: Last Vital Signs Pulse 121 H 04/10/23 15:14 BP 142/80 H 04/10/23 15:14 BMI result Body Mass Index 32.2 GENERAL APPEARANCE: in no acute distress, pleasant. NECK: no carotid bruit, no jugular venous distention. SKIN: no suspicious lesions, warm and dry. HEART: no murmurs, irregular rate and rhythm. LUNGS: Fine crackles at bases. ABDOMEN: soft, nontender. EXTREMITIES: no edema. PERIPHERAL PULSES: equal. NEUROLOGIC: No gross deficits, AAO X 3 Assessment & Plan Assessment & Plan (1) Stable angina: Code(s): I20.8 - Other forms of angina pectoris (2) Hypertension: Code(s): I10 - Essential (primary) hypertension Qualifiers: Hypertension type: essential hypertension Qualified Code(s): I10 - Essential (primary) hypertension (3) Permanent atrial fibrillation: Code(s): I48.21 - Permanent atrial fibrillation Plan Pleasant 77 year gentleman with permanent atrial fibrillation on apixaban, digoxin 125 mcg Saturday, metoprolol tartrate 50 mg twice a day and diltiazem 300 mg daily. His blood pressure is mildly elevated and his heart rate was 121 when he came to the office. With rest his heart rate has improved. He has been quite sedentary recently and has not been exercising regularly. He is planning to start pulmonary rehabilitation. He is complaining of fatigue. My initial plan was to increase the metoprolol to 75 mg twice a day but given his fatigue I decided not to increase it currently. He has been getting reasonably good blood pressure and heart rate readings at home. He also is starting pulmonary rehabilitation where he can monitor his heart rate and blood pressure. If he has persistent tachycardia more than 110 beats per minute then I think we should increase his metoprolol to 75 mg twice a day. I think most of his symptoms are related to underlying lung disease and oxygen dependence and resulting deconditioning. Follow-up with us in few months. Thank you for allowing me to participate in the care of your patient. Please feel free to contact me if you have any questions. Coding Level of Care Code Est Pt Level 4 (90652) Diagnoses Stable angina I20.8 Essential hypertension I10 Hypertension type: essential hypertension Permanent atrial fibrillation I48.21
[2023-04-10 15:14] VITALS: BP 142/80; PULSE 121; BMI 32.2
== END 2023-04-10 15:46 | disposition home or self-care (01) ==
PROVIDERS: PCP Internal Medicine; Visit Provider Internal Medicine Cardiovascular Disease
DX: I20.8 Other forms of angina pectoris (principal); I10 Essential (primary) hypertension; I48.21 Permanent atrial fibrillation
CPT/HCPCS: 99214

== ENCOUNTER → 2023-04-10 14:57 | Outpatient (BNVA) | payer MEDICARE, SELFPAY | PROVIDERS: PCP Internal Medicine; Visit Provider Internal Medicine Cardiovascular Disease | DX: I20.89 Other forms of angina pectoris (principal); I10 Essential (primary) hypertension; I48.21 Permanent atrial fibrillation | CPT/HCPCS: 99212 ==

== ENCOUNTER 2023-04-30 08:06 | Outpatient (REF) | payer MEDICARE, SELFPAY ==
[2023-04-30 08:39] LABS: MANUAL DIFF FLAG NO
[2023-04-30 09:16] LABS: Basophils Percent Auto 0.3 % (0-2); Eosinophils Absolute Auto 0.1 X10*3/uL (0.0-0.4); Eosinophils Percent Auto 1.4 % (0-4); Hematocrit 36.5 % (42.0-52.0); Hemoglobin 11.9 g/dl (14.0-18.0); Imm Gran Abs Auto 0.04 X10*3/uL (0.00-0.03); Imm Gran Pct Auto 0.5 % (0.0-0.4); Immature Retic Fraction 23.7 % (2.3-13.4); Lymphocytes Absolute Auto 1.1 X10*3/uL (1.2-4.9); Lymphocytes Percent Auto 14.5 % (20-40); Mean Corpuscular HGB Conc 32.6 g/dl (31.0-36.0); Mean Corpuscular Hemoglobin 34.1 pg (27.0-33.0); Mean Corpuscular Volume 104.6 fL (80.0-98.0); Mean Platelet Volume 9.8 fL (9.4-12.4); Monocytes Absolute Auto 0.7 X10*3/uL (0.1-1.2); Monocytes Percent Auto 8.7 % (2-11); Neutrophils Absolute Auto 5.8 x10*3/uL (2.0-8.3); Neutrophils Percent Auto 74.6 % (45-73); Platelet Count 171 X10*3/uL (160-400); Red Blood Count 3.49 X10*6/uL (4.60-5.80); Red Cell Distribution Width 14.6 % (11.0-16.0); Retic HGB Equivalent 37.2 pg (30.0-35.0); Reticulocyte Percent 1.9 % (0.5-1.8); Reticulocytes Absolute 0.065 X10*6/uL (0.026-0.095); White Blood Count 7.8 X10*3/uL (4.8-10.8)
[2023-04-30 09:21] LABS: Appearance Urine Turbid; Color Urine Dark Yellow; Glucose Urine UA Negative (Negative); Leukocyte Esterase Urine Large (3+) (Negative); Nitrite Urine Negative (Negative); Specific Gravity - Urine 1.025 (1.005-1.025); UMIC TRIGGER UACC YES; Urine Blood Small (1+) (Negative); Urine Ketones Negative (Negative); Urine Protein 30 (1+) mg/dL (Neg-Trace)
[2023-04-30 09:27] LABS: Estimated Average Glucose 120 mg/dL; Hemoglobin A1c % 5.8 % (<6.0)
[2023-04-30 10:04] LABS: Creatinine Urine 200.28 mg/dL; Microalbum/Creatinine Ratio Ur 53.9 ug/mg cr (<30)
[2023-04-30 10:05] LABS: Bacteria Urine Trace (None Seen); UACC Culture Trigger YES; WBC Urine >50 /HPF (0-5)
[2023-04-30 10:05] LABS: Alanine Aminotransferase 20 U/L (0-40); Albumin Level 3.7 g/dL (3.5-5.0); Alkaline Phosphatase 110 U/L (39-117); Anion Gap 11 (12-20); Aspartate Amino Transferase 16 U/L (5-37); Bilirubin Total 0.7 mg/dL (0.0-1.0); Blood Urea Nitrogen 24 mg/dL (9-16); Calcium 8.8 mg/dL (8.4-10.2); Carbon Dioxide 25 mmol/L (22-29); Chloride 107 mmol/L (96-108); Cholesterol 106 mg/dL (<200); Estimated Glomerular Filt Rate > 60; Glucose Random 108 mg/dL (60-115); HDL Cholesterol 41 mg/dL (>40); Iron 97 mcg/dL (45-160); LDL Cholesterol Calculated 43 mg/dL (<100); Percent Iron Saturation 31 % (15-50); Sodium 139 mmol/L (135-145); Total Iron Binding Capacity 316 mcg/dL (228-428); Total Protein 7.2 g/dL (6.5-8.0); Triglycerides 111 mg/dL (<150); Unsaturated Iron Binding 219 ug/dL
[2023-04-30 10:16] LABS: Ferritin 69 ng/mL (20-250); Thyroid Stimulating Hormone 2.57 uIU/mL (0.32-4.0)
[2023-04-30 11:09] LABS: Folate 12.8 ng/mL (> or = 4.0); Vitamin B12 1271 pg/mL (200-900)
== END 2023-04-30 08:07 | disposition home or self-care (01) ==
LOC: HO.LAB 08:06
PROVIDERS: PCP Internal Medicine; Visit Provider Internal Medicine
DX: E11.65 Type 2 diabetes mellitus with hyperglycemia (principal); E78.00 Pure hypercholesterolemia, unspecified; R82.90 Unspecified abnormal findings in urine
CPT/HCPCS: 36415; 80053; 80061; 81001; 82043; 82570; 82607; 82728; 82746; 83036; 83540; 84439; 84443; 85025; 85045; 87086

== ENCOUNTER 2023-05-03 08:10 | Outpatient (AMB) | payer MEDICARE, SELFPAY ==
[2023-05-03 08:13] VITALS: BP 112/70; PULSE 74; O2SAT 95; BMI 32.2
--- NOTE | 2023-05-03 08:13 | A.OFFPC_ITS ---
Vital Signs 05/03/23 08:13 Height 5 ft 8 in Weight 212 lb BMI 32.2 BP 112/70 Blood Pressure Location Lt brachial Position Sitting Pulse 74 Pulse Source Pulse Oximeter Pulse Oximetry (%) 95 Oxygen Delivery Method Room Air Intake Visit Reasons: DM, anemia, AAA COPD Atrial fibrillation Allergies hydrochlorothiazide Allergy (Severe, Verified 05/03/23 08:13) Anaphylaxis lisinopril Allergy (Severe, Verified 05/03/23 08:13) Anaphylaxis Penicillins Allergy (Severe, Verified 05/03/23 08:13) Anaphylaxis regadenoson [From Lexiscan] Adverse Reaction (Verified 05/03/23 08:13) Bradycardic Medication List - Last Reconciled 05/03/23 by Oswaldo Delgado MD adalimumab (Humira(CF) Pen) 40 mg subcut Q2W albuterol sulfate 90 mcg/actuation (ProAir HFA) 2 puffs inhalation Q6H PRN apixaban (Eliquis) 5 mg PO BID atorvastatin 80 mg PO BEDTIME xyzxbpiyow-zeagezis-yylavqjwke 160-9-4.8 mcg/actuation (Breztri Aerosphere) 2 inhalations inhalation BID cholecalciferol (vitamin D3) 50 mcg PO DAILY 30 days ciprofloxacin HCl (Cipro) 500 mg PO BID clopidogrel 75 mg PO DAILY compress.stocking,knee,reg,med As directed 20-30 mm HG cyanocobalamin (vitamin B-12) (Vitamin B-12) 1,000 mcg PO DAILY digoxin 125 mcg PO MOWEFR diltiazem HCl 300 mg PO DAILY furosemide 40 mg PO QAM levothyroxine 50 mcg PO DAILY@0600 metoprolol tartrate 50 mg (2 x 25 mg) PO BID 90 days [OXYGEN 2 L NC keep sats > 90 As directed] [PORTABLE OXYGEN TANK As directed] tamsulosin 0.8 mg (2 x 0.4 mg) PO DAILY 90 days Tobacco use date assessed: 05/03/23 Fall risk assessment: No Falls in past year Last assessed Fall Risk: 05/03/23 Dental Screening Dental Screen Date: 05/03/23 Did you have a dental visit in the last 12 months?: Yes Did you have a dental problem in the last 6 months where you did not have access to dental care?: No Was dental information given to patient?: Patient has dentist HPI DM, anemia, AAA COPD Atrial fibrillation HPI Details 77-year-old obese male with diabetes chary litus controlled ascending aorta dilatation COPD with interstitial lung disease atrial fibrillation coronary artery disease hypertension hypercholesterolemia hypothyroidism last seen in January 2023. Patient is here for follow-up. Colonoscopy done May 2021. Ascending aorta dilatation last CT scan February 2023 4.3. Review of the notes cardiology follow-up March 2023 atrial fibrillation on anticoagulation, digoxin Saturday metoprolol twice a day and diltiazem blood pressure heart rate good at home. Started pulmonary rehab. Patient has urinary retention and has been sent to urology on tamsulosin. Pulmonary follow-up February 2023 supplemental oxygen for COPD I LD on Brextri and albuterol Last echocardiogram February 2023. Low normal LV ejection fraction 50-55% 2. Moderately dilated left atrium 3. Mild aortic stenosis and regurgitatio n 4. Normal RV systolic pressure 5. Mildly dilated ascending aorta at 4.3 cm 6. No gross pericardial effusion PFSH Medical History ILD (interstitial lung disease) COPD (chronic obstructive pulmonary disease) Tubular adenoma of colon (~2021) Postoperative hypothyroidism Obesity (BMI 30-39.9) Atrial fibrillation Chest discomfort Bronchitis Hemoptysis HOLLOWAY (dyspnea on exertion) Abnormal SPEP Multinodular thyroid Swelling of left lower extremity Pulmonary nodules/lesions, multiple Ground glass opacity present on imaging of lung Wedge compression fracture of T9 vertebra (~2018) Coronary artery disease Hypertension Right renal stone Thyroid nodule Vitamin D deficiency Ascending aorta dilatation Obesity (BMI 30-39.9) Psoriasis Hypercholesterolemia Former smoker Stable angina Surgical History History of partial thyroidectomy (~2020) History of heart artery stent (~2019) History of colonoscopy History of cardioversion (~2020) History of appendectomy History of tonsillectomy History of lung biopsy (~2016) Family History Father Heart disease Mother Throat cancer Paternal Grandfather Heart disease Social History Household Members: Spouse Housing: House Are you a primary respiratory care technician to a significant other at home: No Do you presently have visiting nurse or other home services: No Alcohol intake: former Year quit: 2014 Patient Tobacco Use Status: Former Tobacco user Quit Date: 2014 Tobacco use type: Cigarette Years Smoked: 50 e-Cigarette/Vaping Use: Never Used Second Hand Smoke Exposure: No Advance Directives Date on File: 09/21/20 service: Yes Current occupational status: retired Cognitive needs: No Hearing needs: No Vision needs: Yes Questionnaire PHQ-9 Over the last 2 weeks, how often have you been bothered by any of the following problems? 1. Little interest or pleasure in doing things: not at all 2. Feeling down, depressed, or hopeless: not at all 3. Trouble falling or staying asleep, or sleeping too much: not at all 4. Feeling tired or having little energy: not at all 5. Poor appetite or overeating: not at all 6. Feeling bad about yourself - or that you are a failure or have let yourself or your family down: not at all 7. Trouble concentrating on things, such as reading the newspaper or watching television: not at all 8. Moving or speaking so slowly that other people could have noticed. Or the opposite - being so fidgety or restless that you have been moving around a lot more than usual: not at all 9. Thoughts that you would be better off or of hurting yourself in some way: not at all Total score: 0 Depression Screening Interpretation: Negative Depression Screening Done: Yes Source: Developed by Drs. Ever Nelson, Sarah Galindo, Lopez Owen and colleagues, with an educational moira from [employer]. Thrive Questionnaire Date Thrive assessed: 05/03/23 I am a: Patient What is your living situation today?: I have a steady place to live Within the past 12 months, did the food you bought not last and you didn't have the money to get more?: Never true Within the past 12 months, did you worry whether your food would run out before you got money to buy more?: Never true Do you have trouble paying for medicines?: No Do you have trouble getting transportation to medical appointments?: No Do you have trouble paying your heating and electricity bill?: No Do you have trouble taking care of your child, family member or friend?: No Do you have trouble with day-to-day activities such as bathing, preparing meals, shopping, managing finances, etc.?: No Are you currently unemployed and looking for a job?: No Are you interested in more education?: No Currently or been in a relationship where the following occur: no concerns reported AUDIT C Alcohol Use Questionnaire (AUDIT-C) 1. How often do you have a drink containing alcohol?: Never 2. How many drinks containing alcohol do you have on a typical day when you are drinking?: 1 or 2 (0) 3. How often do you have six or more drinks on one occasion?: Never Total Score: 0 JORGE-7 AMB Questionnaire JORGE-7 Date JORGE - 7 assessed: 05/03/23 Feeling nervous, anxious, or on edge: 0 = Not at all Not being able to stop or control worryin = Not at all Worrying too much about different things: 0 = Not at all Trouble relaxin = Not at all Being so restless that it is hard to sit still: 0 = Not at all Becoming easily annoyed or irritable: 0 = Not at all Feeling afraid as if something awful might happen: 0 = Not at all Total JORGE-7 score (0-4 normal; 5-9 mild; 10-14 moderate; 15-21 severe): 0 Source: Developed by Drs. Ever Nelson, Saarh Galindo, Lopez Owen and colleagues, with an educational moira from [employer]. Physical exam (Primary Care) Vital Signs: Last Vital Signs Pulse 74 05/03/23 08:13 BP 112/70 05/03/23 08:13 Pulse Ox 95 05/03/23 08:13 Oxygen Delivery Method Room Air 05/03/23 08:13 BMI result Body Mass Index 32.2 Tobacco/Smoking Status: Tobacco use Status Tobacco use date assessed 05/03/23 05/03/23 08:20 Patient Tobacco Use Status Former Tobacco user 05/03/23 08:20 Tobacco use type Cigarette 05/03/23 08:20 e-Cigarette/Vaping Use Never Used 05/03/23 08:20 PHQ-9: PHQ-9 Score PHQ-9: Total score 0 05/03/23 08:20 Depression Screening Interpretation: Negative Thrive Assessment: Date of Thrive Assessment Date Thrive assessed 05/03/23 05/03/23 08:20 Currently or been in a relationship where the following occur: no concerns reported Const General: alert; No acute distress Eyes Conjunctivae: conjunctivae normal Resp Auscultation: clear to auscultation bilaterally Cardio Rate: regular rate Rhythm: regular rhythm GI Inspection: Yes normal to inspection Extrem General: Yes normal to inspection and No edema Assessment and Plan Assessment & Plan (1) Permanent atrial fibrillation: Code(s): I48.21 - Permanent atrial fibrillation Plan: Continue with anticoagulation with Eliquis and digoxin Saturday (2) Urinary retention with incomplete bladder emptying: Code(s): R33.9 - Retention of urine, unspecified Plan: Patient on tamsulosin follows up with urology (3) Type 2 diabetes mellitus with hyperglycemia: Comment: Dr. Waddell and Dr. Mccord Code(s): E11.65 - Type 2 diabetes mellitus with hyperglycemia Plan: Decrease the amount of carbohydrate intake, pasta, bread, rice and potatoes are all sugar and that is aside from all the sweet stuff, remember that fruits are good but they are Sweet also. Hemoglobin A1c goal of less than 7 patient is doing good with diet control (4) COPD (chronic obstructive pulmonary disease): Code(s): J44.9 - Chronic obstructive pulmonary disease, unspecified Plan: Continue with the inhalers follows up with Pulmonary on Brextri and short-acting albuterol. Patient is on pulmonary rehab (5) Coronary artery disease: Comment: (NSTEMI 04/2019 - JL + proximal and distal RCA rotablation) Code(s): I25.10 - Atherosclerotic heart disease of [place] coronary artery without angina pectoris Qualifiers: Coronary Disease-Associated Artery/Lesion type: [place] artery [place] vs. transplanted heart: [place] heart Associated angina: without angina Qualified Code(s): I25.10 - Atherosclerotic heart disease of [place] coronary artery without angina pectoris Plan: Control the cholesterol, weight, blood pressure, diabetes continue with anticoagulation (6) Hypertension: Code(s): I10 - Essential (primary) hypertension Qualifiers: Hypertension type: essential hypertension Qualified Code(s): I10 - Essential (primary) hypertension Plan: Continue with blood pressure medication. Decrease salt intake and exercise patient takes diltiazem 300 mg once a day metoprolol 50 mg once a day. Blood pressure if elevated was advised to increase metoprolol but BP is good so stay on present dose (7) Hypercholesterolemia: Code(s): E78.00 - Pure hypercholesterolemia, unspecified Plan: Avoid fried foods, chicken skin, eggs, butter margarine, pastries and meat. Be it pork or beef they have a lot of cholesterol LDL goal of less than 70 and triglyceride of less than 150. Patient is taking atorvastatin 80 mg once (8) Postoperative hypothyroidism: Comment: (s/p left hemithyroidectomy 03/2021) Code(s): E89.0 - Postprocedural hypothyroidism Plan: Continue with thyroid medication (9) Obesity (BMI 30-39.9): Code(s): E66.9 - Obesity, unspecified Plan: Diet and exercise (10) UTI (urinary tract infection): Code(s): N39.0 - Urinary tract infection, site not specified Orders: Orders UA CC w/rflx Micro + Cult 3 Weeks N39.0 - Urinary tract infection, site not specified, R30.0 - Dysuria Comprehensive Met. Panel 3 Months E11.65 - Type 2 diabetes mellitus with hyperglycemia Complete Blood Count Auto Diff 3 Months E11.65 - Type 2 diabetes mellitus with hyperglycemia Free T4 (Free Thyroxine) 3 Months E11.65 - Type 2 diabetes mellitus with hyperglycemia Thyroid Stimulating Hormone 3 Months E11.65 - Type 2 diabetes mellitus with hyperglycemia Magnesium 3 Months E11.65 - Type 2 diabetes mellitus with hyperglycemia Medications: New ciprofloxacin HCl (Cipro) 500 mg PO BID 14 tabs 0RF Coding Level of Care Code Est Pt Level 4 (72335) Diagnoses Permanent atrial fibrillation I48.21 Urinary retention with incomplete bladder emptying R33.9 Type 2 diabetes mellitus with hyperglycemia E11.65 COPD (chronic obstructive pulmonary disease) J44.9 Coronary artery disease involving [place] coronary artery of [place] heart without angina pectoris I25.10 Coronary Disease-Associated Artery/Lesion type: [place] artery [place] vs. transplanted heart: [place] heart Associated angina: without angina Essential hypertension I10 Hypertension type: essential hypertension Hypercholesterolemia E78.00 Postoperative hypothyroidism E89.0 Obesity (BMI 30-39.9) E66.9 UTI (urinary tract infection) N39.0 Additional Codes PHQ-9 - 77191 - PHQ-9 Billing: ([id number])
== END 2023-05-03 09:07 | disposition home or self-care (01) ==
PROVIDERS: PCP Internal Medicine; Visit Provider Internal Medicine
DX: I48.21 Permanent atrial fibrillation (principal); E11.65 Type 2 diabetes mellitus with hyperglycemia; J44.9 Chronic obstructive pulmonary disease, unspecified; E66.9 Obesity, unspecified; Z68.32 Body mass index [BMI] 32.0-32.9, adult; R33.9 Retention of urine, unspecified; I25.10 Atherosclerotic heart disease of native coronary artery without angina pectoris; I10 Essential (primary) hypertension; E78.00 Pure hypercholesterolemia, unspecified; E89.0 Postprocedural hypothyroidism; N39.0 Urinary tract infection, site not specified
CPT/HCPCS: 99214

== ENCOUNTER 2023-05-08 15:10 | Outpatient (AMB) | payer MEDICARE, SELFPAY ==
--- NOTE | 2023-05-08 15:12 | MHC.OFFVIS ---
Intake Vital Signs 05/08/23 15:15 Height 5 ft 8 in Weight 219 lb 5.759 oz BMI 33.3 BP 140/78 H Blood Pressure Location Lt brachial Position Sitting Pulse 111 H Pulse Source Pulse Oximeter Intake Visit Reasons: F/U Hypothyroidism-confirmed Intake Note: Patient present today for Hypothyroidism follow up. 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 He was previously followed by Marcy Jesus. . The patient last saw Dr. Tucker on 09/12/2022 He has a known large nodule within the L lobe of the thyroid. He underwent FNA biopsy of this nodule 04/28/2018 with Benign ([place] Category II Cytology). He had a repeat thyroid US 05/04/2020 which revealed significant growth of this nodule, as well as a new nodule within the Isthmus. He underwent FNA of this nodule 07/07/2020. This was found to be a 5.3 cm LMP nodule with extension into the isthmus. There was no separate isthmus nodule noted. Cytology was read as Atypia of Undetermined Signifigance, [place] Category III. Affirma was benign. He also had a CTA completed 04/01/2020 which was reviewed. This reveals mediastinal lymphadenopathy. He was referred to Dr. Cunningham for a L hemithyroidectomy. He underwent this L hemithyroidectomy 04/11/2021 with benign pathology. He remains on levothyroxine 50 mcg PO daily, with TSH is at goal. He did undergo coronary stenting in 2019, and also developed AFib. He is now on Eliquis as well as Plavix. Currently denies any dysphagia or hoarseness of voice. Denies any compressive symptoms whatsoever. Denies any symptoms of hypothyroidism. Thyroid US: 05/03/2022 Right Thyroid Lobe: 5.1 x 2.1 x 1.4 cm, volume 7.8 mL. Previously 3.6 x 1.6 x 1.6 cm, volume 4.8 mL. Parenchyma: The gland echotexture is heterogeneous. Thyroid vascularity is normal. Left Thyroid Lobe: Surgically absent. Isthmus: 0.4 cm in maximum AP dimension. Previously 0.3 cm. Estimated total number of nodules greater than or equal to 1 cm: 1. Business Control Specialist nodules are described as follows: 1.? Location: Right lower pole. ?? ? Size: 1.1 x 0.7 x 1.0 cm, volume 0.44 mL. ?? ? Previously: 0.9 x 0.5 x 0.7 cm, volume 0.16 mL. ?? ? Nodule characteristics: ?? ? Composition: Spongiform (0). ?? ? ACR TI-RADS total points: 0. ?? ? ACR TI-RADS category: 1. ? Significant change in size (>/= 20% in 2 dimensions and minimal increase of 2 mm or 50% or greater increase in volume): None. ?? ? Change in features: None. ?? ? Change in ACR TI-RADS risk category: None applicable. 2.? Location: Right upper pole. ?? ? Size: 0.8 x 0.5 x 0.5 cm, volume 0.09 mL. ?? ? Previously: 0.8 x 0.4 x 0.5 cm, volume 0.08 mL. ?? ? Nodule characteristics: ?? ? Composition: Solid (2). ?? ? Echogenicity: Hyperechoic (1). ?? ? Shape: Not taller than wide (0). ?? ? Margins: Smooth (0). ?? ? Echogenic Foci: None (0).? ACR TI-RADS total points: 3. ?? ? ACR TI-RADS category: 3. ? Significant change in size (>/= 20% in 2 dimensions and minimal increase of 2 mm or 50% or greater increase in volume): None. ?? ? Change in features: None. ?? ? Change in ACR TI-RADS risk category: Not applicable. LEFT THYROIDECTOMY BED: No thyroid tissue visualized. NODES: No lymphadenopathy is seen in the tissue surrounding the thyroid gland. Labs: Laboratory Tests 09/04/22 09/04/22 11:12 11:12 TSH 0.57 Free T4 1.05 PTH Intact 34 Calcium (PTH Intac t) 9.0 status post FNA of right lower pole nodule with benign cytology [facility] Medical History ILD (interstitial lung disease) COPD (chronic obstructive pulmonary disease) Tubular adenoma of colon (~2021) Postoperative hypothyroidism Obesity (BMI 30-39.9) Atrial fibrillation Chest discomfort Bronchitis Hemoptysis HOLLOWAY (dyspnea on exertion) Abnormal SPEP Multinodular thyroid Swelling of left lower extremity Pulmonary nodules/lesions, multiple Ground glass opacity present on imaging of lung Wedge compression fracture of T9 vertebra (~2018) Coronary artery disease Hypertension Right renal stone Thyroid nodule Vitamin D deficiency Ascending aorta dilatation Obesity (BMI 30-39.9) Psoriasis Hypercholesterolemia Former smoker Stable angina Surgical History History of partial thyroidectomy (~2020) History of heart artery stent (~2019) History of colonoscopy History of cardioversion (~2020) History of appendectomy History of tonsillectomy History of lung biopsy (~2016) Family History Father Heart disease Mother Throat cancer Paternal Grandfather Heart disease Social History Household Members: Spouse Housing: House Are you a primary home care giver to a significant other at home: No Do you presently have visiting nurse or other home services: No Alcohol intake: former Year quit: 2014 Patient Tobacco Use Status: Former Tobacco user Quit Date: 2014 Tobacco use type: Cigarette Years Smoked: 50 e-Cigarette/Vaping Use: Never Used Second Hand Smoke Exposure: No Advance Directives Date on File: 09/21/20 service: Yes Current occupational status: retired Cognitive needs: No Hearing needs: No Vision needs: Yes Physical Exam Const Other: Healed scar status post left lobectomy. The right lobe was without the presence of any palpable nodules Assessment & Plan Assessment & Plan (1) Postoperative hypothyroidism: Comment: (s/p left hemithyroidectomy 03/2021) Code(s): E89.0 - Postprocedural hypothyroidism Plan: Clinically and biochemically euthyroid on 50 mcg levothyroxine per (2) Thyroid nodule: Comment: Biopsy April 2018, December 2022 benign Code(s): E04.1 - Nontoxic single thyroid nodule Plan: This 77-year-old white male with a history of multinodular goiter status post left lobectomy with right nodule status post FNA with benign cytology. At this point, patient returned to the care of his primary care provider. Perhaps repeat thyroid ultrasound should be done about 1-2 years time and if it has a significant change in the size or characteristics of the nodule, patient returned back to endocrinology Coding Level of Care Code Est Pt Level 3 (91604) Diagnoses Postoperative hypothyroidism E89.0 Thyroid nodule E04.1
[2023-05-08 15:15] VITALS: BP 140/78; PULSE 111; BMI 33.3
== END 2023-05-08 15:33 | disposition home or self-care (01) ==
PROVIDERS: PCP Internal Medicine; Visit Provider Internal Medicine Endocrinology, Diabetes & Metabolism
DX: E89.0 Postprocedural hypothyroidism (principal); E04.1 Nontoxic single thyroid nodule
CPT/HCPCS: 99213

== ENCOUNTER → 2023-05-08 15:10 | Outpatient (BNVA) | payer MEDICARE, SELFPAY | PROVIDERS: PCP Internal Medicine; Visit Provider Internal Medicine Endocrinology, Diabetes & Metabolism | DX: E89.0 Postprocedural hypothyroidism (principal); E04.1 Nontoxic single thyroid nodule | CPT/HCPCS: 99212 ==

== ENCOUNTER 2023-05-20 09:14 | Outpatient (REF) | payer MEDICARE, SELFPAY ==
[2023-05-20 11:13] LABS: Appearance Urine Clear; Color Urine Yellow; Glucose Urine UA Negative (Negative); Leukocyte Esterase Urine Moderate (2+) (Negative); Nitrite Urine Negative (Negative); UMIC TRIGGER UACC YES; Urine Blood Negative (Negative); Urine Ketones Negative (Negative); Urine Protein Negative (Neg-Trace)
[2023-05-20 12:00] LABS: Bacteria Urine None Seen (None Seen); Hyaline Casts Urine 0-2 /LPF (0-2); RBC Urine 0-2 /HPF (0-2); Squamous Epithelial Cell Urine 0-2 /HPF (0-2); UACC Culture Trigger YES
== END 2023-05-20 09:15 | disposition home or self-care (01) ==
LOC: HO.HMGCLDS 09:14
PROVIDERS: PCP Internal Medicine; Visit Provider Internal Medicine
DX: R30.0 Dysuria (principal); N39.0 Urinary tract infection, site not specified
CPT/HCPCS: 81001; 87086

== ENCOUNTER 2023-06-04 13:33 | Outpatient (AMB) | payer MEDICARE, SELFPAY ==
[2023-06-04 13:45] VITALS: BP 140/82; PULSE 93; BMI 33.9
--- NOTE | 2023-06-04 13:45 | A.OFFVIS_ITS ---
Intake Vital Signs 06/04/23 13:45 Height 5 ft 8 in Weight 222 lb 10.67 oz BMI 33.9 BP 140/82 H Blood Pressure Location Lt brachial Position Sitting Pulse 93 Pulse Source Monitor Intake Visit Reasons: swollen ankle Allergies hydrochlorothiazide Allergy (Severe, Verified 06/04/23 13:47) Anaphylaxis lisinopril Allergy (Severe, Verified 06/04/23 13:47) Anaphylaxis Penicillins Allergy (Severe, Verified 06/04/23 13:47) Anaphylaxis regadenoson [From Lexiscan] Adverse Reaction (Verified 06/04/23 13:47) Bradycardic Medication List - Last Reconciled 06/04/23 by Radha Jean Baptiste NP-C adalimumab (Humira(CF) Pen) 40 mg subcut Q2W albuterol sulfate 90 mcg/actuation (ProAir HFA) 2 puffs inhalation Q6H PRN apixaban (Eliquis) 5 mg PO BID atorvastatin 80 mg PO BEDTIME [id number]-fjcegasj-zznmzhylby 160-9-4.8 mcg/actuation (Breztri Aerosphere) 2 inhalations inhalation BID cholecalciferol (vitamin D3) 50 mcg PO DAILY 30 days clopidogrel 75 mg PO DAILY compress.stocking,knee,reg,med As directed 20-30 mm HG cyanocobalamin (vitamin B-12) (Vitamin B-12) 1,000 mcg PO DAILY digoxin 125 mcg PO MOWEFR diltiazem HCl 300 mg PO DAILY furosemide (Lasix) 20 mg PO DAILY levothyroxine 50 mcg PO DAILY@0600 metoprolol tartrate 75 mg (3 x 25 mg) PO BID 90 days [OXYGEN 2 L NC keep sats > 90 As directed] [PORTABLE OXYGEN TANK As directed] tamsulosin 0.8 mg (2 x 0.4 mg) PO DAILY 90 days HPI swollen ankle HPI Details Pablito is a 77-year-old male past medical history of hypertension, hyperlipidemia, prior smoking, interstitial lung disease, O2 use, chronic atrial fibrillation, CAD with RCA PCI, mild aortic stenosis who presents for follow-up. Today he reports that he has been experiencing some swelling in his lower extremities. He states the left leg has been swollen more frequently and now the right leg is swelling as well. He denies any calf tenderness. He does not take a diuretic. He only took for a few days back in March and does not recall if it actually helped improve any symptoms. He denies chest discomfort at rest or with activity. He has chronic shortness of breath and wears his oxygen as needed. Currently has his tank with him but is not wearing it at present. He denies PND. He feels some shortness of breath as soon as he gets into bed however he takes a few deep breaths it goes away. No palpitations, lightheadedness, presyncope, syncope. Taking all meds as directed. FORMERLY [facility] Medical History ILD (interstitial lung disease) COPD (chronic obstructive pulmonary disease) Tubular adenoma of colon (~2021) Postoperative hypothyroidism Obesity (BMI 30-39.9) Atrial fibrillation Chest discomfort Bronchitis Hemoptysis HOLLOWAY (dyspnea on exertion) Abnormal SPEP Multinodular thyroid Swelling of left lower extremity Pulmonary nodules/lesions, multiple Ground glass opacity present on imaging of lung Wedge compression fracture of T9 vertebra (~2018) Coronary artery disease Hypertension Right renal stone Thyroid nodule Vitamin D deficiency Ascending aorta dilatation Obesity (BMI 30-39.9) Psoriasis Hypercholesterolemia Former smoker Stable angina Surgical History History of partial thyroidectomy (~2020) History of heart artery stent (~2019) History of colonoscopy History of cardioversion (~2020) History of appendectomy History of tonsillectomy History of lung biopsy (~2016) Family History Father Heart disease Mother Throat cancer Paternal Grandfather Heart disease Social History Household Members: Spouse Housing: House Are you a primary care technician to a significant other at home: No Do you presently have visiting nurse or other home services: No Alcohol intake: former Year quit: 2014 Patient Tobacco Use Status: Former Tobacco user Quit Date: 2014 Tobacco use type: Cigarette Years Smoked: 50 e-Cigarette/Vaping Use: Never Used Second Hand Smoke Exposure: No Advance Directives Date on File: 09/21/20 service: Yes Current occupational status: retired Cognitive needs: No Hearing needs: No Vision needs: Yes Review of Systems Const All systems reviewed & are unremarkable except as noted in HPI and below ENT Denies dizziness Card Denies chest pain, Denies chest pain at rest, Denies chest pain with activity, Denies rapid heart rate, Denies pedal edema, Denies edema, Denies leg edema, Denies lightheadedness, Denies palpitations, Denies dyspnea, Denies dyspnea on exertion and Denies orthopnea Resp Denies cough, Denies dyspnea and Denies dyspnea on exertion GI Denies hematochezia and Denies change in stool character Musc Details: Lower leg swelling Denies abnormal gait, Denies limited range of motion, Denies muscle cramps, Denies muscle weakness, Denies numbness, Denies radiating pain into limb, Denies stiffness and Denies tingling Neuro Denies abnormal gait, Denies dizziness, Denies numbness and Denies tingling Endo Denies palpitations Physical Exam Vital Signs: BMI result Body Mass Index 33.9 Const General: cooperative, healthy appearing, comfortable and no acute distress Orientation/consciousness: patient oriented x3 Neck Neck: Yes normal visual inspection Resp Effort & Inspection: normal respiratory effort Auscultation: clear to auscultation bilaterally, no crackles, no rales, no rhonchi and no wheezes Cardio Jugular venous distension: no JVD Rate: regular rate Rhythm: regular rhythm Heart sounds: S1 normal heart sound present, S2 normal heart sound present, no murmurs and no rubs Neuro General: patient oriented x3 Extrem General: Yes normal to inspection, No no pedal edema and No calf tenderness Psych Appearance: grossly normal Mental Status: mental status grossly normal Speech and movement: Normal speech and movement present Office Procedures EKG Details: Today, read by me, atrial fibrillation, no acute ST or T-wave abnormalities, nonspecific ST findings, rate 93, QTC 427 milliseconds [id number], Complete Assessment & Plan Assessment & Plan (1) Edema: Code(s): R60.9 - Edema, unspecified Plan: Report of bilateral lower leg edema. He says swelling in his legs is not new however has increased recently. He does not take any routine diuretics. Labs done on 05/31/2023 showed creatinine 0.9. Last echo done 03/01/2023 showed EF 50- 55%, moderately dilated left atrium, mild aortic stenosis, ascending aorta 4.3 cm. Heart rate and blood pressure are mildly elevated today which can contribute to his low normal EF and add to edema. Will start on Lasix 20 mg daily. Will check BMP, BNP in 1 week. (2) Permanent atrial fibrillation: Code(s): I48.21 - Permanent atrial fibrillation Plan: History of chronic atrial fibrillation. On diltiazem, metoprolol and digoxin 3 times weekly for heart rate control. He denies any heart palpitations. EKG done today showing atrial fibrillation, heart rate 93. Pulse rates noted to be elevated at times. Blood pressure is elevated today, initially 140/82, recheck done by me, 150/60. He does have interstitial lung disease but no wheezing on examination. Will increase his metoprolol to 75 mg b.i.d.. Continue current diltiazem and digoxin. Will check digoxin level with upcoming labs. He is on Eliquis for anticoagulation. Dose is appropriate for his age weight and creatinine. No bleeding issues reported. Continued without change. (3) Coronary artery disease: Comment: (NSTEMI 04/2019 - JL + proximal and distal RCA rotablation) Code(s): I25.10 - Atherosclerotic heart disease of [place] coronary artery without angina pectoris Qualifiers: Associated angina: without angina Coronary Disease-Associated Artery/Lesion type: [place] artery [place] vs. transplanted heart: [place] heart Qualified Code(s): I25.10 - Atherosclerotic heart disease of [place] coronary artery without angina pectoris Plan: History of CAD with prior PCI to the RCA. No reports of anginal sounding symptoms. He has not on aspirin as he is on Eliquis. He is on Plavix which I will continue at this time. He is on high-dose atorvastatin with ideal LDL goal less than 70. Labs done 01/13/2023 showed LDL 43. He continues on metoprolol. Signs and symptoms of angina reviewed (4) Ascending aorta dilatation: Comment: (ascending thoracic aorta -slightly dilated 4.3 x 4.2 cm - 07/24/[address]) 01/2022 4.3-4.5 cm 02/2023 4.3 Code(s): I77.810 - Thoracic aortic ectasia Plan: Last echocardiogram showing ascending aorta 4.3 cm (5) Aortic stenosis: Code(s): I35.0 - Nonrheumatic aortic (valve) stenosis Plan: Last echocardiogram showing mild aortic stenosis with mean gradient 6 mmHg, aortic valve area 1.77 centimeter sq (6) ILD (interstitial lung disease): Code(s): J84.9 - Interstitial pulmonary disease, unspecified Plan: Follows with pulmonology. Wears oxygen with nasal cannula as needed (7) Hypertension: Code(s): I10 - Essential (primary) hypertension Qualifiers: Hypertension type: essential hypertension Qualified Code(s): I10 - Essential (primary) hypertension Plan: As above Plan Time spent on chart review, documentation interview and assessment Orders: Orders Basic Metabolic Panel 1 Week R60.9 - Edema, unspecified B Type Natriuretic Peptide 1 Week R60.9 - Edema, unspecified Medications: New furosemide (Lasix) 20 mg PO DAILY 30 tabs 5RF Changed From metoprolol tartrate 50 mg (2 x 25 mg) PO BID 90 days 360 tabs 3RF To metoprolol tartrate 75 mg (3 x 25 mg) PO BID 90 days 540 tabs 3RF Discontinued furosemide Discontinued Reason: Patient Completed Course 40 mg PO QAM 7 tabs 0RF Coding Level of Care Code Est Pt Level 4 (86344) Diagnoses Edema R60.9 Permanent atrial fibrillation I48.21 Coronary artery disease involving [place] coronary artery of [place] heart without angina pectoris I25.10 Associated angina: without angina Coronary Disease-Associated Artery/Lesion type: [place] artery [place] vs. transplanted heart: [place] heart Ascending aorta dilatation I77.810 Aortic stenosis I35.0 ILD (interstitial lung disease) J84.9 Essential hypertension I10 Hypertension type: essential hypertension CPT Codes EKG - CPT: 17798-[id number], Complete ([id number]) Time Spent (min) 28
== END 2023-06-04 14:15 | disposition home or self-care (01) ==
PROVIDERS: PCP Internal Medicine; Visit Provider Nurse Practitioner Family
DX: R60.9 Edema, unspecified (principal); I48.21 Permanent atrial fibrillation; I25.10 Atherosclerotic heart disease of native coronary artery without angina pectoris; I77.810 Thoracic aortic ectasia; I35.0 Nonrheumatic aortic (valve) stenosis; J84.9 Interstitial pulmonary disease, unspecified; I10 Essential (primary) hypertension
CPT/HCPCS: 93010; 99214

== ENCOUNTER → 2023-06-04 13:33 | Outpatient (BNVA) | payer MEDICARE, SELFPAY | PROVIDERS: PCP Internal Medicine; Visit Provider Nurse Practitioner Family | DX: I48.21 Permanent atrial fibrillation (principal); R60.9 Edema, unspecified; I25.10 Atherosclerotic heart disease of native coronary artery without angina pectoris; I77.810 Thoracic aortic ectasia; I35.0 Nonrheumatic aortic (valve) stenosis; I10 Essential (primary) hypertension; J84.9 Interstitial pulmonary disease, unspecified | CPT/HCPCS: 93005; 99212 ==

== ENCOUNTER 2023-06-12 09:51 | Outpatient (REF) | payer MEDICARE, SELFPAY ==
[2023-06-12 13:34] LABS: B Type Natriuretic Peptide 295 pg/mL (<100)
[2023-06-12 14:15] LABS: Anion Gap 12 (12-20); Blood Urea Nitrogen 29 mg/dL (9-16); Calcium 9.1 mg/dL (8.4-10.2); Carbon Dioxide 29 mmol/L (22-29); Chloride 104 mmol/L (96-108); Estimated Glomerular Filt Rate > 60; Glucose Random 95 mg/dL (60-115); Potassium 3.4 mmol/L (3.3-5.1); Sodium 142 mmol/L (135-145)
== END 2023-06-12 09:52 | disposition home or self-care (01) ==
LOC: HO.HMGCLDS 09:51
PROVIDERS: PCP Internal Medicine; Visit Provider Nurse Practitioner Family
DX: R60.9 Edema, unspecified (principal)
CPT/HCPCS: 36415; 80048; 83880

== ENCOUNTER 2023-06-20 11:04 | Outpatient (REF) | payer MEDICARE, SELFPAY ==
--- NOTE | ~2023-06-20 | CT_ITS ---
EXAMINATION: CT CHEST, ABDOMEN AND PELVIS WITH CONTRAST CLINICAL INFORMATION: Follow-up pulmonary nodule; interstitial lung disease; liver lesion. COMPARISON: Prior chest CT examinations, most recently 11/18/2022. TECHNIQUE: Multidetector volumetric imaging was performed from the thoracic inlet through the pubic symphysis following administration of 85 mL Omnipaque 350 intravenous contrast. Sagittal and coronal reformatted images were obtained on the technologist workstation. This CT examination was performed using dose optimization techniques as appropriate, variously including the following: *Automated exposure control. *Adjustment of mA and/or kV according to patient size (this includes techniques or standardized protocols for targeted exams where dose is matched to indication/reason for exam, i.e., extremities or head). *Use of iterative reconstruction technique. DLP: 757 mGy-cm. FINDINGS: CHEST: LUNGS: No nodule or mass is seen. There are mild paraseptal and centrilobular emphysematous changes. There is are peripheral and peribronchial groundglass opacities within the right upper, middle and lower lobes. There is mild generalized peribronchial wall thickening. There is mild right dependent hypoaeration adjacent to a moderate pleural effusion. MEDIASTINUM: The left thyroid lobe is surgically absent. The right thyroid lobe is unremarkable. The ascending thoracic aorta measures 4.4 x 4.3 cm (3:29). No thoracic dissection is seen. There are moderate atherosclerotic calcifications of the great vessel origins and thoracic aorta. Marked coronary artery atherosclerotic calcifications are seen. A precarinal lymph node is seen, with short axis diameter of 1.3 cm (3:22). No sizable bilateral hilar lymphadenopathy is seen. PERICARDIUM/PLEURA: There is a moderate right pleural effusion. There is no significant left effusion. No pleural mass or thickening. CHEST WALL/AXILLA: Unremarkable. ABDOMEN/PELVIS: LIVER, GALLBLADDER, BILIARY TREE: The liver is normal in size, and attenuation. There are numerous low-attenuation hepatic probable cysts, several too low to fully characterize with CT. No biliary ductal dilatation is present. The gallbladder is unremarkable with no evidence of radiopaque gallstones, gallbladder wall thickening, or pericholecystic inflammatory changes. PANCREAS: Unremarkable. SPLEEN: Unremarkable. ADRENAL GLANDS: Unremarkable. KIDNEYS AND URETERS: The kidneys are normal in size, shape, and attenuation. At the upper pole of the right kidney (4:227), a 4 mm nonobstructing calculus is seen. At the lower pole of the left kidney (4:300), a 5 mm nonobstructing calculus is seen. There are multiple further bilateral renal vascular calcifications. No perinephric stranding. BLADDER: Unremarkable. GASTROINTESTINAL TRACT: There is marked diverticulosis, without acute diverticulitis. No bowel obstruction, free intraperitoneal air or abscess is seen. The vermiform appendix is not identified with certainty; however, there is no finding to suggest appendicitis. ABDOMINAL WALL: There is a tiny fat-containing umbilical hernia. There is a small fat-containing right inguinal hernia. LYMPH NODES: Normal. VASCULAR: A 5.6 x 5.7 cm infrarenal abdominal aortic aneurysm is seen. There is marked aortoiliac atherosclerotic calcification. No dissection is seen. PELVIC VISCERA: The prostate and seminal vesicles are unremarkable. There are marked, coarse central prostate calcifications. OSSEOUS STRUCTURES: There is a moderate T9 anterior wedge compression fracture. There is multi-level marked lower thoracic and lumbar spondylosis. At L3-L4, there is a 4 mm anterolisthesis. There is multi-level thoracolumbar spondylosis. There are degenerative changes of the right hip. No acute or aggressive osseous finding is noted. CT/CT abdomen pelvis w IV con IMPRESSION: 1. No pulmonary nodule or mass is presently appreciated. 2. There are right upper, middle and lower lobe peripheral and peribronchial groundglass opacities, likely infectious or inflammatory etiology. Recommend clinical correlation and short-term follow-up CT imaging in 3-6 months to ensure regression/resolution. 3. A moderate right pleural effusion is seen. There is adjacent mild dependent right lung atelectasis. 4. There are emphysematous changes. 5. A mildly enlarged precarinal lymph node is seen. 6. There is borderline aneurysmal dilatation of the ascending thoracic aorta. 7. There are marked coronary artery atherosclerotic calcifications. 8. Multiple low-attenuation hepatic probable cysts are again, the majority stable from prior CT examinations. Some are too small for full characterization with CT. 9. There is marked diverticulosis, without acute diverticulitis. 10. There are nonobstructing bilateral renal calculi. 11. A 5.7 cm infrarenal abdominal aortic aneurysm is seen. Consider ultrasound surveillance. Consider elective Vascular Surgery evaluation and management. 12. There is a chronic moderate T9 anterior wedge compression fracture. There is multi-level thoracolumbar degenerative disc disease and spondylosis. No acute or aggressive osseous finding is noted.
== END 2023-06-20 11:05 | disposition home or self-care (01) ==
LOC: HO.CT 11:04
PROVIDERS: Absent Provider Internal Medicine Pulmonary Disease; PCP Internal Medicine; Visit Provider Internal Medicine Medical Oncology
DX: K76.9 Liver disease, unspecified (principal); R91.8 Other nonspecific abnormal finding of lung field; J84.9 Interstitial pulmonary disease, unspecified
CPT/HCPCS: 71260; 74177

== ENCOUNTER 2023-06-26 10:54 | Outpatient (AMB) | payer MEDICARE, SELFPAY ==
--- NOTE | 2023-06-26 11:01 | MHC.OFFVIS ---
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 He was actually being worked up for pulmonary nodule interstitial lung disease and liver lesions. He had a scan of his chest abdomen pelvis. At that time he was discovered to have a 5.7 cm aortic aneurysm. This was the 1st that he had heard of this. He was quite anxious and presented for evaluation regarding this. Of note he has been treated by Cardiology with previous RCA PCI. In addition he has chronic AFib. At the time of his visit he was on supplemental oxygen. Reports that he has no difficulties otherwise. He is able to climb a flight of stairs. He now presents to us for vascular follow-up. Of note he is being followed by Dr. Jean-Baptiste Cardiology and by Dr. Casas from pulmonology [facility] Medical History ILD (interstitial lung disease) COPD (chronic obstructive pulmonary disease) Tubular adenoma of colon (~2021) Postoperative hypothyroidism Obesity (BMI 30-39.9) Atrial fibrillation Chest discomfort Bronchitis Hemoptysis HOLLOWAY (dyspnea on exertion) Abnormal SPEP Multinodular thyroid Swelling of left lower extremity Pulmonary nodules/lesions, multiple Ground glass opacity present on imaging of lung Wedge compression fracture of T9 vertebra (~2018) Coronary artery disease Hypertension Right renal stone Thyroid nodule Vitamin D deficiency Ascending aorta dilatation Obesity (BMI 30-39.9) Psoriasis Hypercholesterolemia Former smoker Stable angina Surgical History History of partial thyroidectomy (~2020) History of heart artery stent (~2019) History of colonoscopy History of cardioversion (~2020) History of appendectomy History of tonsillectomy History of lung biopsy (~2016) Family History Father Heart disease Mother Throat cancer Paternal Grandfather Heart disease Social History Household Members: Spouse Housing: House Are you a primary director of healthcare systems to a significant other at home: No Do you presently have visiting nurse or other home services: No Alcohol intake: former Year quit: 2014 Patient Tobacco Use Status: Former Tobacco user Quit Date: 2014 Tobacco use type: Cigarette Years Smoked: 50 e-Cigarette/Vaping Use: Never Used Second Hand Smoke Exposure: No Advance Directives Date on File: 09/21/20 service: Yes Current occupational status: retired Cognitive needs: No Hearing needs: No Vision needs: Yes Review of Systems Const All systems reviewed & are unremarkable except as noted in HPI and below Reports no additional complaints ENT Reports Normal hearing present Card Denies chest pain, Denies chest pain at rest, Denies chest pain with activity and Denies pedal edema Resp Denies cough GI Denies abdominal pain Musc Denies abnormal gait, Denies muscle cramps and Denies radiating pain into limb Skin/Breast Denies skin ulcer and Denies wounds Neuro Reports Normal hearing present and Denies abnormal gait Psych Reports no additional complaints Physical Exam Vital Signs: BMI result Body Mass Index 33.8 Const General: cooperative, healthy appearing and comfortable Orientation/consciousness: oriented to person, oriented to place and oriented to time HEENT Head: Yes normal to inspection Neck Neck: Yes normal visual inspection Carotids: no bruits Chest Chest palpation & inspection: normal inspection of the chest Resp Effort & Inspection: normal respiratory effort and able to speak in complete sentences Auscultation: clear to auscultation bilaterally, no crackles, no rales, no rhonchi and no wheezes Cardio Rate: regular rate Rhythm: regular rhythm Heart sounds: S1 normal heart sound present and S2 normal heart sound present Bruits: no carotid bruits Peripheral pulses: Peripheral pulses 2+ throughout GI Inspection: Yes normal to inspection Skin Wounds: no wounds Hair: normal Neuro General: oriented to person, oriented to place and oriented to time Cranial nerves: Yes CN's II-XII intact bilaterally and Yes Normal hearing present Cognition (Neuro): normal cognition Motor exam (neuro): 5/5 motor strength present throughout Extrem Other: venous exam: No significant superficial varicosities or spider telangiectasias, minimal edema General: No clubbing, No cyanosis and No edema Psych Appearance: grossly normal Mental Status: mental status grossly normal Speech and movement: Normal speech and movement present Results Reviewed Results Reviewed: CT angiogram dated 06/20/2023 demonstrates a 5.7 cm infrarenal abdominal aortic aneurysm. Written report and images were reviewed. Assessment & Plan Assessment & Plan (1) AAA (abdominal aortic aneurysm) without rupture: Code(s): I71.40 - Abdominal aortic aneurysm, without rupture, unspecified Qualifiers: Abdominal aorta location: infrarenal aorta Qualified Code(s): I71.43 - Infrarenal abdominal aortic aneurysm, without rupture Plan: In short patient has abdominal aortic aneurysm. Pathophysiology of the aneurysmal disease process was discussed in detail with the patient. He Is of size for repair. He will require endovascular aortic aneurysm repair with possible open repair. Risks benefits complications of the procedure including but not limited to bleeding infection rupture stroke and were discussed in detail with the patient as well. He will be scheduled within within the next month. He will require pulmonary evaluation as he does have COPD and is O2 dependent. In addition he will require cardiac risk stratification as he did have previous PCI as well. Thank you for allowing us to participate in his care. If there are any questions or concerns please do not hesitate to contact us. Coding Level of Care Code New Pt Level 4 (48787) Diagnoses Infrarenal abdominal aortic aneurysm (AAA) without rupture I71.43 Abdominal aorta location: infrarenal aorta
[2023-06-26 11:02] VITALS: BMI 33.8
== END 2023-06-26 11:46 | disposition home or self-care (01) ==
PROVIDERS: PCP Internal Medicine; Visit Provider Surgery Vascular Surgery
DX: I71.43 Infrarenal abdominal aortic aneurysm, without rupture (principal)
CPT/HCPCS: 99204

== ENCOUNTER → 2023-06-26 10:54 | Outpatient (BNVA) | payer MEDICARE, SELFPAY | PROVIDERS: PCP Internal Medicine; Visit Provider Surgery Vascular Surgery | DX: I71.43 Infrarenal abdominal aortic aneurysm, without rupture (principal) | CPT/HCPCS: 99202 ==

== ENCOUNTER 2023-07-02 09:01 | Outpatient (AMB) | payer MEDICARE, SELFPAY ==
[2023-07-02 09:10] VITALS: BP 102/62; PULSE 78; O2SAT 96; BMI 33.7
--- NOTE | 2023-07-02 09:10 | A.OFFVIS_ITS ---
Intake Vital Signs 07/02/23 09:10 Height 5 ft 8 in Weight 221 lb 9.033 oz BMI 33.7 BP 102/62 Blood Pressure Location Lt brachial Position Sitting Pulse 78 Pulse Source Doppler Pulse Oximetry (%) 96 Oxygen Delivery Method Nasal Cannula Oxygen Flow Rate 2 Intake Visit Reasons: copd Allergies hydrochlorothiazide Allergy (Severe, Verified 07/02/23 09:16) Anaphylaxis lisinopril Allergy (Severe, Verified 07/02/23 09:16) Anaphylaxis Penicillins Allergy (Severe, Verified 07/02/23 09:16) Anaphylaxis regadenoson [From Lexiscan] Adverse Reaction (Verified 07/02/23 09:16) Bradycardic HPI copd HPI Details 77-year-old gentleman, former 100+ pack- year smoker, quit 2014, with prior history of left lower lobe nodule biopsy benign in etiology, also on Humira for underlying psoriatic arthritis, followed for COPD and abnormal CT chest that demonstrated bilateral ground-glass densities that have been waxing and waning with some underlying pulmonary fibrosis. He has been tried on prednisone with no symptomatic or radiologic response.? He has been using BrezTri with reasonable control of his symptoms.? He has been using supplemental oxygen at 2 L 24x7. Patient is planned for endovascular AAA repair. [facility] Medical History ILD (interstitial lung disease) COPD (chronic obstructive pulmonary disease) Tubular adenoma of colon (~2021) Postoperative hypothyroidism Obesity (BMI 30-39.9) Atrial fibrillation Chest discomfort Bronchitis Hemoptysis HOLLOWAY (dyspnea on exertion) Abnormal SPEP Multinodular thyroid Swelling of left lower extremity Pulmonary nodules/lesions, multiple Ground glass opacity present on imaging of lung Wedge compression fracture of T9 vertebra (~2018) Coronary artery disease Hypertension Right renal stone Thyroid nodule Vitamin D deficiency Ascending aorta dilatation Obesity (BMI 30-39.9) Psoriasis Hypercholesterolemia Former smoker Stable angina Surgical History History of partial thyroidectomy (~2020) History of heart artery stent (~2019) History of colonoscopy History of cardioversion (~2020) History of appendectomy History of tonsillectomy History of lung biopsy (~2016) Family History Father Heart disease Mother Throat cancer Paternal Grandfather Heart disease Social History Household Members: Spouse Housing: House Are you a primary primary care coordinator to a significant other at home: No Do you presently have visiting nurse or other home services: No Alcohol intake: former Year quit: 2014 Patient Tobacco Use Status: Former Tobacco user Quit Date: 2014 Tobacco use type: Cigarette Years Smoked: 50 e-Cigarette/Vaping Use: Never Used Second Hand Smoke Exposure: No Advance Directives Date on File: 09/21/20 service: Yes Current occupational status: retired Cognitive needs: No Hearing needs: No Vision needs: Yes Review of Systems Const Denies daytime sleepiness, Denies excessive sweating, Denies fatigue, Denies fever(s), Denies lethargy, Denies malaise, Denies night sweats, Denies snoring and Denies weight loss Eyes Denies blurry vision and Denies itchy eyes ENT Denies nasal congestion, Denies post nasal drip, Denies sinus pain, Denies sinus pressure and Denies other ( Thrush) Card Denies chest pain, Denies pedal edema, Denies dyspnea, Reports dyspnea on exertion (At baseline), Denies orthopnea and Denies paroxysmal nocturnal dyspnea Resp Denies cough, Denies hemoptysis, Denies excessive phlegm production, Denies dyspnea, Reports dyspnea on exertion (At baseline), Denies snoring and Denies wheezing GI Denies abdominal pain and Denies heartburn Musc Denies myalgias, Denies arthralgias and Denies joint swelling Skin/Breast Denies rash Neuro Denies memory loss and Denies seizure-like activity Psych Denies abnormal sleep pattern, Denies anxiety and Denies memory loss Endo Denies excessive sweating, Denies fatigue and Denies heat intolerance Zhou/Lymph Denies easy bruising Aller/Immun Denies itchy eyes, Denies seasonal rhinorrhea and Denies wheezing Physical Exam Vital Signs: Last Vital Signs Pulse 78 07/02/23 09:10 BP 102/62 07/02/23 09:10 Pulse Ox 96 07/02/23 09:10 Oxygen Delivery Method Nasal Cannula 07/02/23 09:10 Oxygen Flow Rate 2 07/02/23 09:10 BMI result Body Mass Index 33.7 Const General: no acute distress and alert Nutritional Appearance: not obese Orientation/consciousness: Other orientation findings ( oriented) HEENT Head: Yes atraumatic Eyes General: appearance normal, both eyes and all related structures Sclerae: sclerae normal EOM: EOMs intact bilaterally Neck Neck: Yes supple Lymphatic: no lymphadenopathy noted Resp Effort & Inspection: normal respiratory effort and no use of accessory muscles Auscultation: clear to auscultation bilaterally Cardio Rate: regular rate Rhythm: regular rhythm Heart sounds: no gallops, no murmurs and no rubs Skin General skin exam: other ( warm) Extrem General: No clubbing, No cyanosis and No edema Assessment & Plan Assessment & Plan (1) COPD (chronic obstructive pulmonary disease): Code(s): J44.9 - Chronic obstructive pulmonary disease, unspecified Plan: Reasonable, though suboptimal control on BrezTri and albuterol MDI. Will add theophylline. (2) ILD (interstitial lung disease): Code(s): J84.9 - Interstitial pulmonary disease, unspecified Plan: Continue to monitor clinically. (3) Supplemental oxygen dependent: Code(s): Z99.81 - Dependence on supplemental oxygen Plan: Continue supplemental oxygen to maintain O2 saturation of 88-92%. (4) Encounter for preoperative pulmonary examination: Code(s): Z01.811 - Encounter for preprocedural respiratory examination Plan: At this time patient is at low risk for pulmonary perioperative complications for the proposed endovascular AAA repair under general anesthesia. Coding Level of Care Code Est Pt Level 4 (35981) Diagnoses COPD (chronic obstructive pulmonary disease) J44.9 ILD (interstitial lung disease) J84.9 Supplemental oxygen dependent Z99.81 Encounter for preoperative pulmonary examination Z01.811
== END 2023-07-02 09:32 | disposition home or self-care (01) ==
PROVIDERS: PCP Internal Medicine; Visit Provider Internal Medicine Pulmonary Disease
DX: J44.9 Chronic obstructive pulmonary disease, unspecified (principal); J84.9 Interstitial pulmonary disease, unspecified; Z99.81 Dependence on supplemental oxygen; Z01.811 Encounter for preprocedural respiratory examination
CPT/HCPCS: 99214

== ENCOUNTER → 2023-07-02 09:01 | Outpatient (BNVA) | payer MEDICARE, SELFPAY | PROVIDERS: PCP Internal Medicine; Visit Provider Internal Medicine Pulmonary Disease | DX: Z01.811 Encounter for preprocedural respiratory examination (principal); J44.9 Chronic obstructive pulmonary disease, unspecified; J84.9 Interstitial pulmonary disease, unspecified; Z99.81 Dependence on supplemental oxygen | CPT/HCPCS: 99212 ==

== ENCOUNTER 2023-07-09 07:00 | Outpatient (RCR) | payer MEDICARE, SELFPAY | END 2024-04-30 08:59 | disposition home or self-care (01) | LOC: HO.PR 07:00 | PROVIDERS: PCP Internal Medicine; Visit Provider Internal Medicine Pulmonary Disease | DX: J44.9 Chronic obstructive pulmonary disease, unspecified (principal) | CPT/HCPCS: 94625; 94761; 99215 ==

== ENCOUNTER 2023-07-15 06:11 | Inpatient (IN) | payer MEDICARE, SELFPAY ==
[2023-07-08 13:22] VITALS: BP 121/73; PULSE 80; RESP 16; O2SAT 97; BMI 33.0
[2023-07-15] VITALS (17 sets, daily range): BP systolic 107–145; BP diastolic 52–83; PULSE 67–106; RESP 12–21; TEMP 36.3–36.9; O2SAT 88–95
--- NOTE | ~2023-07-15 | FL_ITS ---
EXAMINATION: XR FLUOROSCOPY WITH IMAGES CLINICAL INFORMATION: Fluoroscopic guidance in OR. Abdominal aortic aneurysm. COMPARISON: CT chest, abdomen and pelvis of 06/20/2023. TECHNIQUE: Fluoroscopy Supervised By: Dr. Mac. Fluoroscopy Time: 35.7 minutes. Cumulative Dose: 181 mGy. DAP: 750 Gycm2. Images: 6. FINDINGS: Images provided at the approximate level of the thoracolumbar spine with multiple devices. Fluoroscopic imaging provided for procedure supervised by Dr. Mac. Please refer to operative report for more detailed evaluation. FL/FL guidance in OR IMPRESSION: Fluoroscopic imaging provided for procedure supervised by Dr. Mac. Please refer to operative report for more detailed evaluation.
[2023-07-15 07:00] LABS: Hematocrit 35.7 % (42.0-52.0); Hemoglobin 11.7 g/dl (14.0-18.0); Mean Corpuscular HGB Conc 32.8 g/dl (31.0-36.0); Mean Corpuscular Hemoglobin 33.8 pg (27.0-33.0); Mean Corpuscular Volume 103.2 fL (80.0-98.0); Mean Platelet Volume 9.4 fL (9.4-12.4); Platelet Count 146 X10*3/uL (160-400); Red Blood Count 3.46 X10*6/uL (4.60-5.80); Red Cell Distribution Width 14.6 % (11.0-16.0); White Blood Count 6.4 X10*3/uL (4.8-10.8)
[2023-07-15] MEDS: 0.9 % Sodium Chloride 1,000 ML 100 ML IVCONT (07:08)
[2023-07-15] MEDS: vancomycin HCL 1,500 MG in 0.9 % Sodium Chloride 500 ML 333.33 MG IV ×2 (07:09→18:27)
[2023-07-15 07:11] LABS: Anion Gap 12 (12-20); Blood Urea Nitrogen 23 mg/dL (9-16); Calcium 8.7 mg/dL (8.4-10.2); Carbon Dioxide 24 mmol/L (22-29); Chloride 107 mmol/L (96-108); Creatinine Clr Calc Pharmacy 85.8; Estimated Glomerular Filt Rate > 60; Glucose Random 146 mg/dL (60-115); Potassium 4.2 mmol/L (3.3-5.1); Sodium 139 mmol/L (135-145)
[2023-07-15 07:15] LABS: Prothrombin Time 12.5 SEC (11.1-13.3)
[2023-07-15 07:17] LABS: Partial Thromboplastin Time 31.8 SEC (26.0-36.8)
[2023-07-15 07:19] LABS: COVID-19 Test Negative (Negative); IDNOW Serial# 152EDE1D
--- NOTE | 2023-07-15 07:20 | HO.ANESPROP2 ---
Documented by User: Marleny Low NP 07/11/23 10:33 HPI - Anesthesia Eval Consult details Narrative: 77yo M for Aortic Endovascular Aneurysm Repair,with possible open, 07/15/23 Cardiac cleared. CAD s/p stent. [place] [facility] [place] Pulmo cleared. ILD. O2 @ 2L baseline. Maintain 88-92% No recent illness No CP. HOLLOWAY at baseline Pre-DM. A1C 5.8% in 04/2023 Afib. Eliquis CAD/PAD. Plavix ILD/COPD. Has been participating in pulmo rehab 2 x weekly COUNTS INCLUDE 234 BEDS AT [facility] Active Problems Active Problems: All Active Problems (Updated 07/08/23 @ 13:21 by Catrachita Montiel RN) Encounter for preoperative pulmonary examination (Acute) AAA (abdominal aortic aneurysm) without rupture (Acute) Bilateral renal stones (Acute) Abdominal aortic aneurysm (Acute) Aortic stenosis (Acute) UTI (urinary tract infection) (Acute) Permanent atrial fibrillation (Acute) Renal cyst (Acute) Lower urinary tract symptoms (Acute) Nocturia (Acute) Cataract (Acute) Rotator cuff impingement syndrome of left shoulder (Acute) Urinary retention with incomplete bladder emptying (Acute) Frequency of micturition (Acute) Type 2 diabetes mellitus with hyperglycemia (Acute) Osteoarthritis of left acromioclavicular joint (Acute) Shoulder pain, left (Acute) Abrasion hand (Acute) Supplemental oxygen dependent (Acute) Edema (Acute) Peripheral vascular disease (Acute) Hospital discharge follow-up (Acute) Dysphagia (Acute) Acute respiratory failure (Acute) HOLLOWAY (dyspnea on exertion) (Acute) Chronic atrial fibrillation (Acute) Diarrhea (Acute) Meralgia paresthetica of right side (Acute) Pain of right lower extremity (Acute) Right leg numbness (Acute) Bicipital tendinitis of left shoulder (Acute) Pulmonary nodule (Acute) Osteoporosis (Acute) Atrial fibrillation with rapid ventricular response (Acute) Vitamin B12 deficiency (Acute) Macrocytic anemia (Acute) Wedge compression fracture of T9 vertebra (Acute ~2019) Thyroid nodule (Acute) Ascending aorta dilatation (Acute) COPD (chronic obstructive pulmonary disease) (Acute) ILD (interstitial lung disease) (Acute) Psoriasis (Acute) Coronary artery disease (Acute) Stable angina (Acute) Hypertension (Acute) Hypercholesterolemia (Acute) Postoperative hypothyroidism (Acute) Vitamin D deficiency (Acute) Swelling of left lower extremity (Acute) Obesity (BMI 30-39.9) (Acute) Past Medical History Medical History (Updated 07/08/23 @ 13:21 by Catrachita Montiel RN) Supplemental oxygen dependent ILD (interstitial lung disease) COPD (chronic obstructive pulmonary disease) Tubular adenoma of colon (~2021) Postoperative hypothyroidism Obesity (BMI 30-39.9) Atrial fibrillation Chest discomfort Bronchitis Hemoptysis HOLLOWAY (dyspnea on exertion) Abnormal SPEP Multinodular thyroid Swelling of left lower extremity Pulmonary nodules/lesions, multiple Ground glass opacity present on imaging of lung Wedge compression fracture of T9 vertebra (~2018) Coronary artery disease Hypertension Right renal stone Thyroid nodule Vitamin D deficiency Ascending aorta dilatation Obesity (BMI 30-39.9) Psoriasis Hypercholesterolemia Former smoker Stable angina Family History Family History Father Heart disease Mother Throat cancer Paternal Grandfather Heart disease Family history of problems with anesthesia: No Surgical History Surgical History (Updated 07/08/23 @ 13:40 by Catrachita Montiel RN) Hx of bilateral cataract extraction (~2022) History of partial thyroidectomy (~2020) History of heart artery stent (~2019) History of colonoscopy History of cardioversion (~2020) History of appendectomy History of tonsillectomy History of lung biopsy (~2016) History of Problems with Anesthesia: No Social History Social History (Updated 07/08/23 @ 13:38 by Catrachita Montiel RN) Household Members: Spouse Housing: House Are you a primary career advisor to a significant other at home: No Do you presently have visiting nurse or other home services: No Alcohol intake: former Year quit: 2014 Patient Tobacco Use Status: Former Tobacco user Quit Date: 2014 Tobacco use type: Cigarette Years Smoked: 50 e-Cigarette/Vaping Use: Never Used Second Hand Smoke Exposure: No Use of substances other than those prescribed or required for medical reasons: No Have you been hit, kicked, punched, or otherwise hurt by someone within the past year? If so, by whom?: No Are you DNR?: No Advance Directives: No Advance Directives Information Provided: Yes Advance Directives on File: No Advance Directives Date on File: 09/21/20 Recently lost weight without trying: No Nutrition Risks: Surgical patient >75years Poor oral hygiene: No service: Yes Current occupational status: retired Cognitive needs: No Hearing needs: No Vision needs: Yes Meds Allergies Allergy/AdvReac Type Severity Reaction Status Date / Time Penicillins Allergy Severe Anaphylaxis Verified 07/08/23 13:10 hydrochlorothiazide Allergy Unknown Unknown Verified 07/08/23 13:10 lisinopril Allergy Unknown Unknown Verified 07/08/23 13:10 regadenoson [From Lexiscan] AdvReac Bradycardic Verified 07/08/23 13:10 Home Medications Medication Instructions Recorded Confirmed Last Taken Type adalimumab 40 mg/0.4 mL 40 mg subcut Q2W 10/10/22 07/15/23 11/17/22 History subcutaneous pen kit (Humira(CF) Pen) albuterol sulfate 90 mcg/actuation 2 puff inhalation Q6H PRN 11/18/22 07/15/23 07/14/23 History aerosol inhaler (ProAir HFA) shortness of breath or wheezing budesonide 160 mcg-glycopyr 9 2 inh inhalation BID 07/08/23 07/15/23 07/14/23 History mcg-formot 4.8 mcg/actuation HFA inhaler (Breztri Aerosphere) tamsulosin 0.4 mg capsule 0.8 mg PO BEDTIME 07/08/23 07/15/23 07/14/23 History Exam Height,Weight and Vital Signs: Height 5 ft 8 in Weight 98.43 kg Last Vital Signs Pulse 80 07/08/23 13:22 Resp 16 07/08/23 13:22 BP 121/73 07/08/23 13:22 Pulse Ox 97 07/08/23 13:22 O2 Del Method Nasal Cannula 07/08/23 13:22 O2 Flow Rate 2 07/08/23 13:22 Pertinent Lab Results Pertinent Lab Results: Laboratory Tests 05/31/23 06/12/23 09:13 10:10 WBC 7.2 Hgb 12.3 L Hct 37.5 L Plt Count 160 Sodium 142 Potassium 3.4 Chloride 104 Carbon Dioxide 29 BUN 29 H Creatinine 1.09 Narrative Narrative: EKG 05/2023 atrial fibrillation, no acute ST or T-wave abnormalities, nonspecific ST findings, rate 93, QTC 427 milliseconds ECHO 02/2023 Conclusions: - 1. Low normal LV ejection fraction 50-55% 2. Moderately dilated left atrium 3. Mild aortic stenosis and regurgitation 4. Normal RV systolic pressure 5. Mildly dilated ascending aorta at 4.3 cm 6. No gross pericardial effusion NM adelia perf SPECT rest & str 10/2022 Impression: 1. Myocardial perfusion imaging study shows normal myocardial perfusion 2. Gated LVEF is 64% 3. Transient ischemic dilatation not present EKG is nondiagnostic for ischemia CT chest w IV con 05/2023 IMPRESSION: 1. No pulmonary nodule or mass is presently appreciated. 2. There are right upper, middle and lower lobe peripheral and peribronchial groundglass opacities, likely infectious or inflammatory etiology. Recommend clinical correlation and short-term follow-up CT imaging in 3-6 months to ensure regression/resolution. 3. A moderate right pleural effusion is seen. There is adjacent mild dependent right lung atelectasis. 4. There are emphysematous changes. 5. A mildly enlarged precarinal lymph node is seen. 6. There is borderline aneurysmal dilatation of the ascending thoracic aorta. 7. There are marked coronary artery atherosclerotic calcifications. 8. Multiple low-attenuation hepatic probable cysts are again, the majority stable from prior CT examinations. Some are too small for full characterization with CT. 9. There is marked diverticulosis, without acute diverticulitis. 10. There are nonobstructing bilateral renal calculi. 11. A 5.7 cm infrarenal abdominal aortic aneurysm is seen. Consider ultrasound surveillance. Consider elective Vascular Surgery evaluation and management. 12. There is a chronic moderate T9 anterior wedge compression fracture. There is multi-level thoracolumbar degenerative disc disease and spondylosis. No acute or aggressive osseous finding is noted. Airway Mallampati Class: II TM Dist: >3cm Neck ROM: Full Loose/Missing/Broken Teeth: Yes (Pulled molars, crowns throughout) Heart: RRR Lungs: CTAB, prolonged expiratory wheeze Assessment and Plan Assessment Anesthesia Assessment: Anesthesia Plan Discussed and PAT Visit Final Anesthetic Review Family History of Problems with Anesthesia: No History of Problems with Anesthesia: No Documented by User: Claudia Small DO 07/15/23 07:26 COUNTS INCLUDE 234 BEDS AT [facility] Past Medical History Medical History (Updated 07/08/23 @ 13:21 by Catrachita Montiel RN) Supplemental oxygen dependent ILD (interstitial lung disease) COPD (chronic obstructive pulmonary disease) Tubular adenoma of colon (~2021) Postoperative hypothyroidism Obesity (BMI 30-39.9) Atrial fibrillation Chest discomfort Bronchitis Hemoptysis HOLLOWAY (dyspnea on exertion) Abnormal SPEP Multinodular thyroid Swelling of left lower extremity Pulmonary nodules/lesions, multiple Ground glass opacity present on imaging of lung Wedge compression fracture of T9 vertebra (~2018) Coronary artery disease Hypertension Right renal stone Thyroid nodule Vitamin D deficiency Ascending aorta dilatation Obesity (BMI 30-39.9) Psoriasis Hypercholesterolemia Former smoker Stable angina Family History Family History Father Heart disease Mother Throat cancer Paternal Grandfather Heart disease Family history of problems with anesthesia: No Surgical History Surgical History (Updated 07/08/23 @ 13:40 by Catrachita Montiel RN) Hx of bilateral cataract extraction (~2022) History of partial thyroidectomy (~2020) History of heart artery stent (~2019) History of colonoscopy History of cardioversion (~2020) History of appendectomy History of tonsillectomy History of lung biopsy (~2016) History of Problems with Anesthesia: No Social History Social History (Updated 07/08/23 @ 13:38 by Catrachita Montiel RN) Household Members: Spouse Housing: House Are you a primary career advisor to a significant other at home: No Do you presently have visiting nurse or other home services: No Alcohol intake: former Year quit: 2014 Patient Tobacco Use Status: Former Tobacco user Quit Date: 2014 Tobacco use type: Cigarette Years Smoked: 50 e-Cigarette/Vaping Use: Never Used Second Hand Smoke Exposure: No Use of substances other than those prescribed or required for medical reasons: No Have you been hit, kicked, punched, or otherwise hurt by someone within the past year? If so, by whom?: No Are you DNR?: No Advance Directives: No Advance Directives Information Provided: Yes Advance Directives on File: No Advance Directives Date on File: 09/21/20 Recently lost weight without trying: No Nutrition Risks: Surgical patient >75years Poor oral hygiene: No service: Yes Current occupational status: retired Cognitive needs: No Hearing needs: No Vision needs: Yes Meds Allergies Allergy/AdvReac Type Severity Reaction Status Date / Time Penicillins Allergy Severe Anaphylaxis Verified 07/08/23 13:10 hydrochlorothiazide Allergy Unknown Unknown Verified 07/08/23 13:10 lisinopril Allergy Unknown Unknown Verified 07/08/23 13:10 regadenoson [From Lexiscan] AdvReac Bradycardic Verified 07/08/23 13:10 Home Medications Medication Instructions Recorded Confirmed Last Taken Type adalimumab 40 mg/0.4 mL 40 mg subcut Q2W 10/10/22 07/15/23 11/17/22 History subcutaneous pen kit (Humira(CF) Pen) albuterol sulfate 90 mcg/actuation 2 puff inhalation Q6H PRN 11/18/22 07/15/23 07/14/23 History aerosol inhaler (ProAir HFA) shortness of breath or wheezing budesonide 160 mcg-glycopyr 9 2 inh inhalation BID 07/08/23 07/15/23 07/14/23 History mcg-formot 4.8 mcg/actuation HFA inhaler (Breztri Aerosphere) tamsulosin 0.4 mg capsule 0.8 mg PO BEDTIME 07/08/23 07/15/23 07/14/23 History Exam Exam Date and Time: July 15, [id number] Height,Weight and Vital Signs: Height 5 ft 8 in Weight 98.43 kg Last Vital Signs Pulse 80 07/08/23 13:22 Resp 16 07/08/23 13:22 BP 121/73 07/08/23 13:22 Pulse Ox 97 07/08/23 13:22 O2 Del Method Nasal Cannula 07/08/23 13:22 O2 Flow Rate 2 07/08/23 13:22 Height 5 ft 8 in Weight 98.43 kg Vital Signs Pulse Rate 80 07/08/23 13:22 Respiratory Rate 16 07/08/23 13:22 Blood Pressure 121/73 07/08/23 13:22 Pulse Oximetry 97 07/08/23 13:22 Oxygen Delivery Method Nasal Cannula 07/08/23 13:22 Oxygen Flow Rate 2 07/08/23 13:22 Temperature 97.5 F 07/15/23 06:52 Pulse Rate 73 07/15/23 06:52 Respiratory Rate 16 07/15/23 06:52 Blood Pressure 145/83 H 07/15/23 06:52 Pulse Oximetry 95 07/15/23 06:52 Oxygen Delivery Method Nasal Cannula 07/15/23 06:52 Oxygen Flow Rate 2 07/15/23 06:52 Airway Mallampati Class: II TM Dist: >3cm Neck ROM: Full Heart: S1S2 Lungs: CTAB Assessment and Plan Assessment Anesthesia Assessment: Anesthesia Plan Discussed and Chart Reviewed Final Anesthetic Review Family History of Problems with Anesthesia: No History of Problems with Anesthesia: No NPO: Yes ASA Class: III Final Preanesthetic Review: No Changes in Pt Med Stat, Meds/Allgs Chart Reviewed, Consent Obtained/Reviewed and Anes Risks/Benef Reviewed Patient Risk: High Procedure Risk: High Anesthetic Plan Anesthetic Plan: GA and Agree w/ Assess. and Plan Disposition: Standard PACU
--- NOTE | 2023-07-15 07:38 | MHC.SHP ---
Pre-Procedural Eval Section A - 24 Hr Update-Section A only Date of Service: 07/15/23 The patient is an INPATIENT: No Changes since office visit: Yes Patient answered all questions The patient has been examined within 24 hours of the surgical procedure. The History & Physical has been completed within 30 days and I have reviewed it.: Yes Section B - Complete if H&P > 30 days Chief Complaint: Postop Allergies: Allergies Allergy/AdvReac Type Severity Reaction Status Date / Time Penicillins Allergy Severe Anaphylaxis Verified 07/08/23 13:10 hydrochlorothiazide Allergy Unknown Unknown Verified 07/08/23 13:10 lisinopril Allergy Unknown Unknown Verified 07/08/23 13:10 regadenoson [From Lexiscan] AdvReac Bradycardic Verified 07/08/23 13:10 Plan I have reviewed the history and physical and performed a pertinent physical examination on my patient. No changes have occurred unless specified. Time Spent With Patient Time: Total time managing care of this patient today ____ minutes.
--- NOTE | 2023-07-15 11:07 | W.PM.OPN ---
Operative Note Operative Note Date of Service: 07/15/23 Narrative: Operative note by [facility] Preoperative diagnosis: Abdominal aortic aneurysm without rupture Postoperative diagnosis: Same Procedure:1. Endovascular aortic aneurysm repair 2. Exposure of right common femoral artery 3. Right common femoral endarterectomy 4. Radiologic supervision and interpretation Surgeon:Praneeth Mac M.D. Deflash And Wash Operator: Dr. Lorenzo Anesthesia: General Specimens: 1 Drains:1 Estimated blood loss: 200 ml Indications: 77-year-old gentleman with smoking history was found to have an abdominal aortic aneurysm measuring 5.[address] scan he now presents for endovascular repair The patient has signed the informed consent after reviewing risks, complications, benefits, and alternatives previously discussed with the patient. The patient was given the opportunity to ask any additional questions or voice any concerns. All questions were answered to the patient's satisfaction. Procedure in detail: Patient was brought to the operating room prior to which a time-out was called for patient identification and site verification. Cutdown was performed on the right common femoral artery. We did a transverse incision and dissected down to the common femoral artery. This was isolated with a silastic loop. We then inserted a 4 [place] sheath into this artery. On the left side which was the contralateral side we percutaneously inserted a 4 [place] sheath with ultrasound guidance. We then through the left side advanced a marker pigtail catheter. Angiogram was performed to measure vessel length and characterize the anatomy and its topography. We then exchanged on the right side for a Lunderquist wire. This was brought to the level of the aortic arch. We then loaded the 34/120 a FX 2 bifurcated device onto the stiff wire advanced the contralateral wire up through the 19 [place] OD a FX introducer sheath using guidewire. Contralateral wire was snared and pulled out the contra side. A FX 2 bifurcated device was transferred into the a FX introducer sheath and advanced under fluoro until the distal limbs were above the aortic bifurcation releasing the limbs of the graft. We pulled the entire system onto the aortic bifurcation. We deployed the main body of the graft by pulling on the control cord handle. We deployed the contralateral limb by pulling down the yellow limb cover. We then advanced a pigtail catheter over the contra wire until the tip was in contact with the wire lock. We held the pigtail catheter and placed in pulled on the contra wire to release it from the wire lock. We then deployed the Epson limb by pinning the inner core and retracting the a FX introducer sheath. We then advanced and deployed a suprarenal endograft measure ring 34 x 100 x 20. And performed an angiogram to visualize the renal artery. Once we removed this extension device. We used a balloon to the proximal end of the main body of the endograft. We balloon the endograft system through the body and the right hip see limb. We performed a final angiogram removed catheter wire sheath. Left side was closed with a StarClose closure device. Right side we closed the arteriotomy with a 6 0 Prolene. Prior to closure localized endarterectomy had to be performed to remove a significant amount of plaque. Once this was all accomplished snow was used to obtain adequate hemostasis. Deep layer was reapproximated using 2 0 Polysorb superficial layer with 3-0 poly Sorb and finally skin with a 4-0 Monocryl. At the end the case sponge instrument counts were correct. Patient tolerated the procedure well. Returned to recovery with stable vitals. Interpretation of films: 1. Ultrasound demonstrated appropriate puncture of the left common femoral 2. Aortogram demonstrated appropriate takeoff of the renals aneurysm was identified. 3. Completion angiogram demonstrated good flow through the endograft. No evidence endoleak. No major kinking of the iliac vessels. This note is constructed using voice recognition software. While every effort has been made to ensure accuracy, research librarian errors may have been included. Thank you for allowing me to participate in the care of your patient. Yours sincerely, Praneeth Mac MD, FACS, R.P.V.I.
[2023-07-15] MEDS: oxyCODONE HCl Immed Release 5 MG TABLET PO (11:30)
--- NOTE | 2023-07-15 12:42 | P.HPCC_ITS ---
History of Present Illness Date of Service: 07/15/23 Chief Complaint: Status post endovascular AAA repair 77-year-old gentleman with underlying AFib, COPD supplemental O2, retention, hyperlipidemia, CAD status post PCI, hypothyroidism now postoperative day 0 after an elective endovascular AAA repair being monitored in the intensive care unit. Review of Systems 2 Constitutional: Constitutional: Denies daytime sleepiness, Denies excessive sweating, Denies fatigue, Denies fever(s), Denies lethargy, Denies malaise, Denies night sweats, Denies snoring and Denies weight loss Eyes: Eyes: Denies blurry vision and Denies itchy eyes ENT: Denies nasal congestion, Denies post nasal drip, Denies sinus pain, Denies sinus pressure and Denies other ( Thrush) Cardiovascular: Cardiovascular: Denies chest pain, Denies pedal edema, Denies dyspnea, Denies orthopnea and Denies paroxysmal nocturnal dyspnea Respiratory: Respiratory: Denies cough, Denies hemoptysis, Denies excessive phlegm production, Denies dyspnea, Denies snoring and Denies wheezing Gastrointestinal: Gastrointestinal: Denies abdominal pain and Denies heartburn Musculoskeletal: Musculoskeletal: Denies myalgias, Denies arthralgias and Denies joint swelling Integumentary/Breasts: Skin/Breast: Denies rash Neurologic: Denies memory loss and Denies seizure-like activity Psychiatric: Psychiatric: Denies abnormal sleep pattern, Denies anxiety and Denies memory loss Endocrine: Endocrine: Denies excessive sweating, Denies fatigue and Denies heat intolerance Hematologic/Lymphatic: Hematologic/Lymphatic: Denies easy bruising Allergic/Immunologic: Allergic/Immunologic: Denies itchy eyes, Denies seasonal rhinorrhea and Denies wheezing PMFSH Past Medical History Medical History (Updated 07/08/23 @ 13:21 by Catrachita Montiel RN) Supplemental oxygen dependent ILD (interstitial lung disease) COPD (chronic obstructive pulmonary disease) Tubular adenoma of colon (~2021) Postoperative hypothyroidism Obesity (BMI 30-39.9) Atrial fibrillation Chest discomfort Bronchitis Hemoptysis HOLLOWAY (dyspnea on exertion) Abnormal SPEP Multinodular thyroid Swelling of left lower extremity Pulmonary nodules/lesions, multiple Ground glass opacity present on imaging of lung Wedge compression fracture of T9 vertebra (~2018) Coronary artery disease Hypertension Right renal stone Thyroid nodule Vitamin D deficiency Ascending aorta dilatation Obesity (BMI 30-39.9) Psoriasis Hypercholesterolemia Former smoker Stable angina Family History Family History Father Heart disease Mother Throat cancer Paternal Grandfather Heart disease Surgical History Surgical History (Updated 07/15/23 @ 12:44 by Kevon Casas MD) Hx of bilateral cataract extraction (~2022) History of partial thyroidectomy (~2020) History of heart artery stent (~2019) History of colonoscopy History of cardioversion (~2020) History of appendectomy History of tonsillectomy History of lung biopsy (~2016) Social History Social History (Updated 07/08/23 @ 13:38 by Catrachita Montiel RN) Household Members: Spouse Housing: House Are you a primary long term care phlebotomist to a significant other at home: No Do you presently have visiting nurse or other home services: No Alcohol intake: former Year quit: 2014 Patient Tobacco Use Status: Former Tobacco user Quit Date: 2014 Tobacco use type: Cigarette Years Smoked: 50 e-Cigarette/Vaping Use: Never Used Second Hand Smoke Exposure: No Use of substances other than those prescribed or required for medical reasons: No Have you been hit, kicked, punched, or otherwise hurt by someone within the past year? If so, by whom?: No Are you DNR?: No Advance Directives: No Advance Directives Information Provided: Yes Advance Directives on File: No Advance Directives Date on File: 09/21/20 Recently lost weight without trying: No Nutrition Risks: Surgical patient >75years Poor oral hygiene: No service: Yes Current occupational status: retired Cognitive needs: No Hearing needs: No Vision needs: Yes Meds Allergies Allergy/AdvReac Type Severity Reaction Status Date / Time Penicillins Allergy Severe Anaphylaxis Verified 07/08/23 13:10 hydrochlorothiazide Allergy Unknown Unknown Verified 07/08/23 13:10 lisinopril Allergy Unknown Unknown Verified 07/08/23 13:10 regadenoson [From Lexiscan] AdvReac Bradycardic Verified 07/08/23 13:10 Active Medications: Current Medications Acetaminophen (Acetaminophen 325 Mg Tablet) 650 mg PO Q6H PRN PRN Reason: Pain, Mild (Pain Scale 1-3) Fentanyl (Fentanyl Citrate/Pf 100 Mcg/2 Ml Vial) 50 mcg IVPUSH Q5M PRN; Protocol PRN Reason: Pain, Severe (Pain Scale 7-10) Stop: 07/15/23 13:27 Haloperidol Lactate (Haloperidol Lactate 5 Mg/Ml Vial) 0.5 mg IVPUSH ONCE PRN PRN Reason: Nausea and Vomiting Sodium Chloride (Ns) 1,000 mls @ 100 mls/hr IVCONT .Q10H [facility] Last Infusion: 07/15/23 12:37 Dose: Infused Sodium Chloride (Ns) 1,000 mls @ 80 mls/hr IVCONT .[id number] [facility] Vancomycin HCl 1,500 mg/ (Sodium Chloride) 500 mls @ 333.333 mls/hr IV POSTOP ONE Stop: 07/15/23 20:29 Morphine Sulfate (Morphine Sulfate 2 Mg/Ml Cartridge) 2 mg IVPUSH Q4H PRN; Protocol PRN Reason: Pain, Severe (Pain Scale 7-10) Oxycodone HCl (Oxycodone Hcl Immed Release 5 Mg Tablet) 5 mg PO Q4H PRN PRN Reason: Pain, Moderate(Pain Scale 4-6) Last Admin: 07/15/23 11:30 Dose: 5 mg Pharmacy Consult (Consult Rx Vancomycin Dosing) 1 each MISCELLANE DAILY PRN PRN Reason: Consult order Pharmacy Consult (Consult Rx Vancomycin Dosing) 1 each MISCELLANE DAILY PRN PRN Reason: Consult order Sodium Chloride (0.9 % Sodium Chloride Flush 3 Ml Syringe) 3 ml IVFLUSH QSHIFT [facility] Home Medications Medication Instructions Recorded Confirmed Last Taken Type adalimumab 40 mg/0.4 mL 40 mg subcut Q2W 10/10/22 07/15/23 11/17/22 History subcutaneous pen kit (Humira(CF) Pen) albuterol sulfate 90 mcg/actuation 2 puff inhalation Q6H PRN 11/18/22 07/15/23 07/14/23 History aerosol inhaler (ProAir HFA) shortness of breath or wheezing budesonide 160 mcg-glycopyr 9 2 inh inhalation BID 07/08/23 07/15/23 07/14/23 History mcg-formot 4.8 mcg/actuation HFA inhaler (Breztri Aerosphere) tamsulosin 0.4 mg capsule 0.8 mg PO BEDTIME 07/08/23 07/15/23 07/14/23 History Physical Exam 2 Vital Signs: Vital Signs: Last Vital Signs Temp 98.1 F 07/15/23 11:04 Pulse 82 07/15/23 11:49 Resp 16 07/15/23 11:49 BP 113/58 L 07/15/23 11:49 Pulse Ox 94 07/15/23 11:49 O2 Del Method Nasal Cannula wit h Capnography 07/15/23 11:49 O2 Flow Rate 4 07/15/23 11:49 BMI result Body Mass Index 33.0 Const: General: no acute distress and lethargic (Arousable and answers appropriately) Orientation/consciousness: lethargic (Arousable and answers appropriately) and Other orientation findings ( oriented) HEENT: Head: Yes atraumatic Eyes: General: appearance normal, both eyes and all related structures S clerae: sclerae normal EOM: EOMs intact bilaterally Neck: Neck: Yes supple Lymphatic: no lymphadenopathy noted Resp: Effort & Inspection: normal respiratory effort and no use of accessory muscles Auscultation: clear to auscultation bilaterally Cardio: Rate: regular rate Rhythm: regular rhythm Heart sounds: no gallops, no murmurs and no rubs Skin: General skin exam: other ( warm) Extrem: Other: Bilateral femoral access site with small hematomas General: No clubbing, No cyanosis, No edema and Yes other Results Labs 07/15/23 06:38 07/15/23 06:38 Labs: Laboratory Results - last 24 hr 07/15/23 07/15/23 06:32 06:38 MCV 103.2 H MCH 33.8 H MCHC 32.8 RDW 14.6 Plt Count 146 L MPV 9.4 Absolute Nucleated RBC 0.000 Nucleated RBC % (auto) 0.0 PT 12.5 INR 1.0 APTT 31.8 Anion Gap 12 Estim Creat Clear Calc 85.8 Estimated GFR > 60 Random Glucose 146 H Calcium 8.7 COVID-19 (NASEEM) Negative COVID-19 Clin Com See Note Assessment and Plan (1) Status post AAA (abdominal aortic aneurysm) repair: Status: Acute (2) Type 2 diabetes mellitus with hyperglycemia: Status: Acute (3) Supplemental oxygen dependent: Status: Acute (4) COPD (chronic obstructive pulmonary disease): Status: Acute (5) Coronary artery disease: Qualifiers: Coronary Disease-Associated Artery/Lesion type: [place] artery [place] vs. transplanted heart: [place] heart Associated angina: without angina Qualified Code(s): I25.10 - Atherosclerotic heart disease of [place] coronary artery without angina pectoris Status: Acute Plan Assessment: 77-year-old gentleman postoperative day 0 after an elective endovascular AAA repair being monitored in the intensive care unit. Plan: Neuro: No acute issues. Cardiac: Postoperative day 0 after an elective endovascular AAA repair. Vascular surgery service care appreciated. Maintain systolic blood pressure under 160. Underlying history of CAD and AFib. Pulmonary: No acute issues. Underlying history of supplemental oxygen dependent COPD. Renal: No acute issues. Endo: No acute issues. Underlying history of hypothyroidism and diabetes mellitus. GI: No acute issues. ID: No acute issues Heme/Onc: No acute issues. Psych: No acute issues. Miscellaneous: No acute issues. Prophylaxis: Per vascular surgery Diet: Per vascular surgery
[2023-07-15] MEDS: 0.9 % Sodium Chloride 1,000 ML 80 ML IVCONT (12:46)
--- NOTE | 2023-07-15 12:59 | PHA.MEDREC ---
Pharmacy Consult ? Medication Reconciliation Pharmacy has reviewed the medication reconciliation.
[2023-07-15 13:24] LABS: Basophils Percent Auto 0.1 % (0-2); Eosinophils Percent Auto 0.3 % (0-4); Hematocrit 32.3 % (42.0-52.0); Hemoglobin 10.6 g/dl (14.0-18.0); Imm Gran Abs Auto 0.04 X10*3/uL (0.00-0.03); Imm Gran Pct Auto 0.6 % (0.0-0.4); Lymphocytes Absolute Auto 0.3 X10*3/uL (1.2-4.9); Lymphocytes Percent Auto 4.9 % (20-40); MANUAL DIFF FLAG SCAN; Mean Corpuscular HGB Conc 32.8 g/dl (31.0-36.0); Mean Corpuscular Hemoglobin 34.4 pg (27.0-33.0); Mean Corpuscular Volume 104.9 fL (80.0-98.0); Mean Platelet Volume 9.5 fL (9.4-12.4); Monocytes Absolute Auto 0.1 X10*3/uL (0.1-1.2); Monocytes Percent Auto 1.6 % (2-11); Neutrophils Absolute Auto 6.5 x10*3/uL (2.0-8.3); Neutrophils Percent Auto 92.5 % (45-73); Platelet Count 122 X10*3/uL (160-400); Red Blood Count 3.08 X10*6/uL (4.60-5.80); Red Cell Distribution Width 14.7 % (11.0-16.0); SCAN SMEAR FLAG 1
[2023-07-15 13:51] LABS: Anion Gap 6 (12-20); Blood Urea Nitrogen 20 mg/dL (9-16); Carbon Dioxide 27 mmol/L (22-29); Chloride 109 mmol/L (96-108); Creatinine Clr Calc Pharmacy 85.8; Estimated Glomerular Filt Rate > 60; Glucose Random 162 mg/dL (60-115); Potassium 4.4 mmol/L (3.3-5.1); Sodium 138 mmol/L (135-145)
[2023-07-15 14:11] LABS: SLIDE REVIEW VERIFIED
--- NOTE | 2023-07-15 14:15 | MHC.CM.PN ---
Met w/pt following vascular surgical repair: pt very groggy - suggests CM contact his spouse for assistance: No answer when called and no VM ability. CM to follow up on 07/15
[2023-07-15] MEDS: Acetaminophen 325 MG TABLET 650 MG PO (14:48)
[2023-07-15 16:18] LABS: Glucose, Whole Blood 161 mg/dL (60-115)
[2023-07-15] MEDS: 0.9 % Sodium Chloride Flush 3 ML SYRINGE IVFLUSH (18:27)
[2023-07-15] MEDS: Tamsulosin HCL 0.4 MG CAPSULE 0.8 MG PO (20:04)
[2023-07-15] MEDS: Atorvastatin Calcium 80 MG TABLET PO (20:04)
[2023-07-15] MEDS: Metoprolol Tartrate 25 MG TABLET 75 MG PO (20:04)
[2023-07-15] MEDS: PT OWN (Budesonide-Glycopyr-Formoterol [Breztri Aerosphere] 160-9-4.8 mc 2 EACH INHALE (21:14)
[2023-07-16] VITALS (15 sets, daily range): BP systolic 110–149; BP diastolic 56–83; PULSE 78–102; RESP 14–26; TEMP 36.3–36.8; O2SAT 89–97; BMI 33.0
[2023-07-16] MEDS: 0.9 % Sodium Chloride 1,000 ML 80 ML IVCONT (01:13)
[2023-07-16 04:27] LABS: VBG Base Excess -2.7 mmol/L; VBG HCO3 20 mmol/L (22-26); VBG pCO2 31 mmHg; VBG pH 7.43 (7.32-7.43); VBG pO2 92 mmHg
[2023-07-16 04:50] LABS: Venous Blood Gas Refer to POC result
[2023-07-16 04:53] LABS: MANUAL DIFF FLAG NO
[2023-07-16 04:54] LABS: Hematocrit 29.5 % (42.0-52.0); Hemoglobin 9.6 g/dl (14.0-18.0); Imm Gran Abs Auto 0.04 X10*3/uL (0.00-0.03); Imm Gran Pct Auto 0.4 % (0.0-0.4); Lymphocytes Absolute Auto 0.5 X10*3/uL (1.2-4.9); Lymphocytes Percent Auto 4.8 % (20-40); Mean Corpuscular HGB Conc 32.5 g/dl (31.0-36.0); Mean Corpuscular Hemoglobin 33.4 pg (27.0-33.0); Mean Corpuscular Volume 102.8 fL (80.0-98.0); Mean Platelet Volume 9.8 fL (9.4-12.4); Monocytes Absolute Auto 0.5 X10*3/uL (0.1-1.2); Neutrophils Percent Auto 89.8 % (45-73); Platelet Count 130 X10*3/uL (160-400); Red Blood Count 2.87 X10*6/uL (4.60-5.80); Red Cell Distribution Width 14.6 % (11.0-16.0)
[2023-07-16 05:18] LABS: Albumin Level 3.1 g/dL (3.5-5.0); Anion Gap 12 (12-20); Blood Urea Nitrogen 22 mg/dL (9-16); Calcium 7.8 mg/dL (8.4-10.2); Carbon Dioxide 21 mmol/L (22-29); Chloride 109 mmol/L (96-108); Creatinine Clr Calc Pharmacy 83.7; Estimated Glomerular Filt Rate > 60; Glucose Random 177 mg/dL (60-115); Magnesium 1.9 mg/dL (1.6-2.6); Phosphorus 3.1 mg/dL (2.7-4.5); Potassium 4.1 mmol/L (3.3-5.1); Sodium 138 mmol/L (135-145)
[2023-07-16] MEDS: Levothyroxine Sodium 50 MCG TABLET PO (05:59)
[2023-07-16 07:08] LABS: Glucose, Whole Blood 163 mg/dL (60-115)
[2023-07-16] MEDS: Cholecalciferol (Vitamin D3) 25 MCG TABLET 50 MCG PO (07:21)
[2023-07-16] MEDS: dilTIAZem HCL CD 300 MG CAP.ER.24H PO (07:22)
[2023-07-16] MEDS: Metoprolol Tartrate 25 MG TABLET 75 MG PO (07:22)
[2023-07-16] MEDS: Clopidogrel Bisulfate 75 MG TABLET PO (07:23)
[2023-07-16] MEDS: Cyanocobalamin (Vitamin B-12) 1,000 MCG TABLET 1000 MCG PO (07:23)
[2023-07-16] MEDS: Acetaminophen 325 MG TABLET 650 MG PO (07:24)
[2023-07-16] MEDS: Furosemide 20 MG TABLET PO (07:24)
[2023-07-16] MEDS: Albumin Human 25 % 100 ML IV (07:25)
[2023-07-16] MEDS: 0.9 % Sodium Chloride Flush 3 ML SYRINGE IVFLUSH (07:32)
[2023-07-16] MEDS: PT OWN (Budesonide-Glycopyr-Formoterol [Breztri Aerosphere] 160-9-4.8 mc 2 EACH INHALE (07:34)
--- NOTE | 2023-07-16 12:56 | HO.POSTANES ---
Post Anesthesia Evaluation Post Anesthesia Evaluation Date of Service: 07/16/23 Vital Signs: Vital Signs Temp Pulse Resp BP Pulse Ox O2 Del Method O2 Flow Rate 07/16/23 12:00 98.2 F 102 H 21 H 132/82 89 L Nasal Cannula 4 07/16/23 11:00 89 26 H 142/72 H 93 Nasal Cannula 4 07/16/23 10:00 87 20 128/83 94 Nasal Cannula 4 07/16/23 09:00 Room Air 07/16/23 08:00 97.5 F 92 16 129/64 94 Nasal Cannula 4 07/16/23 07:27 90 L Nasal Cannula 07/16/23 07:00 94 20 148/73 H 93 Nasal Cannula 4 07/16/23 06:00 97.4 F 93 23 H 149/75 H 93 Nasal Cannula 4 07/16/23 05:00 89 14 141/63 H 91 L Nasal Cannula 4 07/16/23 04:00 96 17 141/66 H 93 Nasal Cannula 4 07/16/23 03:00 91 16 110/57 L 93 Nasal Cannula 4 07/16/23 02:00 82 16 129/60 92 Nasal Cannula 4 07/16/23 01:00 95 22 H 124/75 93 Nasal Cannula 4 Anesthesia: General Endotracheal-GETA Mental Status: Awake Pain Control: Satisfactory Nausea/Vomiting: None Hydration: Adequate Anesthesia-Related Issues: No Anes. Related Issues
--- NOTE | 2023-07-16 13:51 | PM.DS ---
DS: Providers Provider Date of Service: 07/16/23 Date of admission: 07/15/23 06:11 Primary care physician: Oswaldo Delgado MD DS: Diagnosis Discharge Diagnosis (1) Status post AAA (abdominal aortic aneurysm) repair: Status: Acute (2) Type 2 diabetes mellitus with hyperglycemia: Status: Acute (3) Supplemental oxygen dependent: Status: Acute (4) COPD (chronic obstructive pulmonary disease): Status: Acute (5) Coronary artery disease: Status: Acute DS: Summary Hospital Course Hospital Course: Patient underwent endovascular aneurysm repair on 07/16/2023 with Endologix a FX 2 device. No postoperative issues. Postop day 1 was tolerating regular diet and breathing well. Groin incision with minimal hematoma. Stable for discharge Status at Discharge Functional status at discharge: independent ambulation Overall status at discharge: patient is back to baseline Time Attestation Discharge Coordination Time (in mins): 35 Quality: Safe Use of Opioids Does Pt have an Active Cancer Diagnosis on the Problem List?: No Quality: Stroke Does the patient have a stroke diagnosis?: No Physical Exam Vital Signs: Vital Signs: Last Vital Signs Temp 98.2 F 07/16/23 12:00 Pulse 82 07/16/23 13:00 Resp 20 07/16/23 13:00 BP 124/65 07/16/23 13:00 Pulse Ox 97 07/16/23 13:00 O2 Del Method Nasal Cannula 07/16/23 13:00 O2 Flow Rate 4 07/16/23 13:00 Oxygen Flow Rate 4 07/16/23 07:27 BMI result Body Mass Index 33.0 Const: General: cooperative, healthy appearing and no acute distress Orientation/consciousness: oriented to person, oriented to place and oriented to time HEENT: Head: Yes normal to inspection Neck: Carotids: no bruits Chest: Chest palpation & inspection: normal inspection of the chest Resp: Effort & Inspection: normal respiratory effort and able to speak in complete sentences Auscultation: clear to auscultation bilaterally Cardio: Rate: regular rate Heart sounds: S1 normal heart sound present and S2 normal heart sound present GI: Inspection: Yes normal to inspection Skin: Other: Both groins well-healed General skin exam: no rashes or lesions noted Wounds: no wounds Neuro: General: oriented to person, oriented to place, oriented to time and CN's II-XI intact bilaterally Extrem: General: Yes normal to inspection, Yes full ROM and Yes no clubbing, cyanosis or edema Psych: Appearance: grossly normal and well kempt Speech and movement: Normal speech and movement present Affect: normal affect DS: Data Data Completed and Pending Completed studies during hospitalization [Text1]: Procedures Rastafarian of Cardiac Rhythm, Single (04/01/20) Pending studies at discharge: Pending at discharge 07/15/23 10:17 Surgical [PTH] Routine Labs on day of discharge: Laboratory Results - last 24 hr 07/15/23 07/15/23 07/16/23 13:17 16:14 04:15 WBC 7.0 RBC 3.08 L Hgb 10.6 L Hct 32.3 L MCV 104.9 H MCH 34.4 H MCHC 32.8 RDW 14.7 Plt Count 122 L MPV 9.5 Immature Gran % (Auto) 0.6 H Neut % (Auto) 92.5 H Lymph % (Auto) 4.9 L [place] % (Auto) 1.6 L Eos % (Auto) 0.3 Baso % (Auto) 0.1 Lymph # (Auto) 0.3 L [place] # (Auto) 0.1 Eos # (Auto) 0.0 Baso # (Auto) 0.0 Abs Immat Gran (auto) 0.04 H Absolute Neuts (auto) 6.5 Absolute Nucleated RBC 0.000 Nucleated RBC % (auto) 0.0 Smear Tech's Comments VERIFIED VBG pH VBG pCO2 VBG pO2 VBG HCO3 VBG O2 Saturation VBG Base Excess Sodium 138 138 Potassium 4.4 4.1 Chloride 109 H 109 H Carbon Dioxide 27 21 L Anion Gap 6 L 12 BUN 20 H 22 H Creatinine 0.82 0.84 Estim Creat Clear Calc 85.8 83.7 Estimated GFR > 60 > 60 POC Glucose 161 H Random Glucose 162 H 177 H Calcium 8.0 L D 7.8 L Phosphorus 3.1 Magnesium 1.9 Albumin 3.1 L 07/16/23 07/16/23 07/16/23 04:18 04:20 07:04 WBC 10.0 RBC 2.87 L Hgb 9.6 L Hct 29.5 L MCV 102.8 H MCH 33.4 H MCHC 32.5 RDW 14.6 Plt Count 130 L MPV 9.8 Immature Gran % (Auto) 0.4 Neut % (Auto) 89.8 H Lymph % (Auto) 4.8 L [place] % (Auto) 5.0 Eos % (Auto) 0.0 Baso % (Auto) 0.0 Lymph # (Auto) 0.5 L [place] # (Auto) 0.5 Eos # (Auto) 0.0 Baso # (Auto) 0.0 Abs Immat Gran (auto) 0.04 H Absolute Neuts (auto) 9.0 H Absolute Nucleated RBC 0.000 Nucleated RBC % (auto) 0.0 Smear Tech's Comments VBG pH 7.43 VBG pCO2 31 VBG pO2 92 VBG HCO3 20 L VBG O2 Saturation 98.0 VBG Base Excess -2.7 Sodium Potassium Chloride Carbon Dioxide Anion Gap BUN Creatinine Estim Creat Clear Calc Estimated GFR POC Glucose 163 H Random Glucose Calcium Phosphorus Magnesium Albumin Discharge Plan Discharge Anticipated Discharge Date/Time: 07/16/23 13:47 Patient Disposition: Home, Self-Care Discharge Diagnosis: Status post aortic aneurysm repair Referrals: Po,Oswaldo Deng MD [Primary Care Provider] - 1 Week Discharge Medications: New oxycodone-acetaminophen [Endocet] 5-325 mg tablet 1 tab PO TID PRN (Reason: pain) Qty: 7 0RF Rx Instructions: Partial Fill upon patient request. Continued (DME) OXYGEN 2 L NC keep sats > 90 See Rx Instructions .Route .MEDSUPPLY Qty: 1 0RF Rx Instructions: As directed (DME) PORTABLE OXYGEN TANK See Rx Instructions .Route .MEDSUPPLY Qty: 1 0RF Rx Instructions: As directed atorvastatin 80 mg tablet 80 mg PO BEDTIME Qty: 90 2RF diltiazem HCl 300 mg capsule,extended release 24hr 300 mg PO DAILY Qty: 90 3RF clopidogrel 75 mg tablet 75 mg PO DAILY Qty: 90 3RF Eliquis 5 mg tablet 5 mg PO BID Qty: 60 7RF cyanocobalamin (vitamin B-12) [Vitamin B-12] 1,000 mcg tablet 1,000 mcg PO DAILY Qty: 90 3RF cholecalciferol (vitamin D3) 50 mcg (2,000 unit) capsule 50 mcg PO DAILY Qty: 90 3RF levothyroxine 50 mcg tablet 50 mcg PO DAILY@0600 Qty: 30 3RF digoxin 125 mcg (0.125 mg) tablet 125 mcg PO MOWEFR 90 Days Qty: 39 3RF furosemide [Lasix] 20 mg tablet 20 mg PO DAILY Qty: 90 3RF metoprolol tartrate 25 mg tablet 75 mg PO BID 90 Days Qty: 540 3RF Breztri Aerosphere 160-9-4.8 mcg/actuation HFA aerosol inhaler 2 inh inhalation BID tamsulosin 0.4 mg capsule 0.8 mg PO BEDTIME theophylline 400 mg tablet extended release 24 hr 400 mg PO DAILY albuterol sulfate [ProAir HFA] 90 mcg/actuation HFA aerosol inhaler 2 puff inhalation Q6H PRN (Reason: shortness of breath or wheezing) (DME) compress.stocking,knee,reg,med Misc See Rx Instructions .Route Qty: 2 0RF Rx Instructions: As directed 20-30 mm HG Humira(CF) Pen 40 mg/0.4 mL pen injector kit 40 mg subcut Q2W Discharge Orders: Discharge Order (Routine); Ordered 07/16/23 Ordered By: Praneeth Mac Diet: Advance to usual diet Activity on Discharge: As tolerated Stand Alone Forms: Patient Portal Discharge page Activity Restrictions/Additional Instructions: Steri-Strips were used and you can shower on Take it easy today and you may ambulate around the house. Within 24 hours you can resume normal activity You may climb a flight of stairs as tolerated Do not lift anything heavier than a gallon of milk See Dr. Mac in follow-up in approximately 2 weeks time. You should already have an appointment if not please call my office at [phone] Please see above for any change in medications If you notice excessive bleeding from the groin please immediately call my office or return to the emergency room. Care Plan Goals: Surveillance of endovascular repair Health Concerns: Aortic aneurysm Plan of Treatment: CT surveillance follow-up of aortic repair Assessment: Status post endovascular aortic aneurysm repair
--- NOTE | 2023-07-16 14:15 | MHC.CM.PN ---
Pt remains stable and will be discharged to home w/outpt follow up. Pt's spouse to transport - no services needed
== END 2023-07-16 14:58 | disposition home or self-care (01) | DRG 269 ==
LOC: HO.SSSA 06:16 → HO.ICU 11:26
PROVIDERS: Internal Medicine Pulmonary Disease; Admitting Provider Surgery Vascular Surgery; PCP Internal Medicine; Visit Provider Surgery Vascular Surgery
PROC: 04V03ZZ Restriction of Abdominal Aorta, Percutaneous Approach (ICD-10-PCS; principal; 2023-07-15 07:30)
DX: I71.40 Abdominal aortic aneurysm, without rupture, unspecified (principal); E89.0 Postprocedural hypothyroidism; J44.9 Chronic obstructive pulmonary disease, unspecified; E11.65 Type 2 diabetes mellitus with hyperglycemia; I25.10 Atherosclerotic heart disease of native coronary artery without angina pectoris; Z20.822 Contact with and (suspected) exposure to COVID-19; Z79.01 Long term (current) use of anticoagulants; Z79.02 Long term (current) use of antithrombotics/antiplatelets; Z79.890 Hormone replacement therapy; Z79.899 Other long term (current) drug therapy; Z99.81 Dependence on supplemental oxygen
CPT/HCPCS: 36415; 80048; 82040; 82803; 82947; 83735; 84100; 85025; 85027; 85610; 85730; 86850; 86900; 86901; 87635; 88304; 88311; A4649; C1758; C1760; C1769; C1887; C1894; C2628; J1100; J1644; J2250; J2305; J2371; J2405; J2704; J2795; J3010; J3371; P9047; Q9967

== ENCOUNTER → 2023-07-15 06:11 | Outpatient (BNV) | payer MEDICARE, SELFPAY | PROVIDERS: Admitting Provider Surgery Vascular Surgery; PCP Internal Medicine; Visit Provider Internal Medicine Pulmonary Disease | DX: E11.65 Type 2 diabetes mellitus with hyperglycemia (principal); Z86.79 Personal history of other diseases of the circulatory system; J44.9 Chronic obstructive pulmonary disease, unspecified; Z99.81 Dependence on supplemental oxygen; I25.10 Atherosclerotic heart disease of native coronary artery without angina pectoris | CPT/HCPCS: 99223 ==

== ENCOUNTER → 2023-07-15 06:11 | Outpatient (BNV) | payer MEDICARE, SELFPAY | PROVIDERS: Admitting Provider Surgery Vascular Surgery; PCP Internal Medicine; Visit Provider Surgery Vascular Surgery | DX: Z98.890 Other specified postprocedural states (principal); Z86.79 Personal history of other diseases of the circulatory system; E11.65 Type 2 diabetes mellitus with hyperglycemia; Z99.81 Dependence on supplemental oxygen; J44.9 Chronic obstructive pulmonary disease, unspecified; I25.10 Atherosclerotic heart disease of native coronary artery without angina pectoris | CPT/HCPCS: 34705; 34812; 99024 ==

== ENCOUNTER 2023-07-30 09:47 | Outpatient (AMB) | payer MEDICARE, SELFPAY ==
--- NOTE | 2023-07-30 10:02 | MHC.OFFVIS ---
Intake Vital Signs 07/30/23 10:03 Height 5 ft 8 in Weight 216 lb BMI 32.8 Intake Visit Reasons: post op EVAR 07/15/23 Intake Note: 2 week follow up AAA repair . Pt states that his leg is swollen and does get some drainage from the incision site. Accompanied by: Self / Same As Patient Allergies Penicillins Allergy (Severe, Verified 07/30/23 10:08) Anaphylaxis hydrochlorothiazide Allergy (Unknown, Verified 07/30/23 10:08) Unknown lisinopril Allergy (Unknown, Verified 07/30/23 10:08) Unknown regadenoson [From Lexiscan] Adverse Reaction (Verified 07/30/23 10:08) Bradycardic HPI post op EVAR 07/15/23 HPI Details Very pleasant 77-year-old gentleman status post endovascular aortic aneurysm repair with Endologix a FX 2 device. Reports no postprocedure issues. Doing fairly well. Now for routine postop follow-up. [facility] Medical History Supplemental oxygen dependent ILD (interstitial lung disease) COPD (chronic obstructive pulmonary disease) Tubular adenoma of colon (~2021) Postoperative hypothyroidism Obesity (BMI 30-39.9) Atrial fibrillation Chest discomfort Bronchitis Hemoptysis HOLLOWAY (dyspnea on exertion) Abnormal SPEP Multinodular thyroid Swelling of left lower extremity Pulmonary nodules/lesions, multiple Ground glass opacity present on imaging of lung Wedge compression fracture of T9 vertebra (~2018) Coronary artery disease Hypertension Right renal stone Thyroid nodule Vitamin D deficiency Ascending aorta dilatation Obesity (BMI 30-39.9) Psoriasis Hypercholesterolemia Former smoker Stable angina Surgical History Hx of bilateral cataract extraction (~2022) History of partial thyroidectomy (~2020) History of heart artery stent (~2019) History of colonoscopy History of cardioversion (~2020) History of appendectomy History of tonsillectomy History of lung biopsy (~2016) Family History Father Heart disease Mother Throat cancer Paternal Grandfather Heart disease Social History Household Members: Spouse Housing: Unknown / Unable to assess Are you a primary school childcare attendant to a significant other at home: No Do you presently have visiting nurse or other home services: No Alcohol intake: former Year quit: 2014 Patient Tobacco Use Status: Former Tobacco user Quit Date: 2014 Tobacco use type: Cigarette Years Smoked: 50 e-Cigarette/Vaping Use: Former Use Second Hand Smoke Exposure: No Advance Directives Date on File: 09/21/20 service: Yes Current occupational status: retired Cognitive needs: No Hearing needs: No Vision needs: Yes Review of Systems Const All systems reviewed & are unremarkable except as noted in HPI and below Reports no additional complaints ENT Reports Normal hearing present Card Denies chest pain, Denies chest pain at rest, Denies chest pain with activity and Denies pedal edema Resp Denies cough GI Denies abdominal pain Musc Denies abnormal gait, Denies muscle cramps and Denies radiating pain into limb Skin/Breast Denies skin ulcer and Denies wounds Neuro Reports Normal hearing present and Denies abnormal gait Psych Reports no additional complaints Physical Exam Vital Signs: BMI result Body Mass Index 32.8 Const General: cooperative, healthy appearing and comfortable Orientation/consciousness: oriented to person, oriented to place and oriented to time HEENT Head: Yes normal to inspection Neck Neck: Yes normal visual inspection Carotids: no bruits Chest Chest palpation & inspection: normal inspection of the chest Resp Effort & Inspection: normal respiratory effort and able to speak in complete sentences Auscultation: clear to auscultation bilaterally, no crackles, no rales, no rhonchi and no wheezes Cardio Rate: regular rate Rhythm: regular rhythm Heart sounds: S1 normal heart sound present and S2 normal heart sound present Bruits: no carotid bruits Peripheral pulses: Peripheral pulses 2+ throughout GI Inspection: Yes normal to inspection Skin Other: Bilateral groins well healing. No evidence of bleeding or hematoma. Wounds: no wounds Hair: normal Neuro General: oriented to person, oriented to place and oriented to time Cranial nerves: Yes CN's II-XII intact bilaterally and Yes Normal hearing present Cognition (Neuro): normal cognition Motor exam (neuro): 5/5 motor strength present throughout Extrem Other: venous exam: No significant superficial varicosities or spider telangiectasias, minimal edema General: No clubbing, No cyanosis and No edema Psych Appearance: grossly normal Mental Status: mental status grossly normal Speech and movement: Normal speech and movement present Assessment & Plan Assessment & Plan (1) AAA (abdominal aortic aneurysm) without rupture: Comment: endovascular aneurysm repair on 07/16/2023 with Endologix a FX 2 device. Code(s): I71.40 - Abdominal aortic aneurysm, without rupture, unspecified Qualifiers: Abdominal aorta location: infrarenal aorta Qualified Code(s): I71.43 - Infrarenal abdominal aortic aneurysm, without rupture Plan: In short patient is doing well status post endovascular aortic aneurysm repair. Will plan for [address] scan. Thank you for allowing us to assist in his care. Orders: Orders CT angio abdomen pelvis 3 Months I71.43 - Infrarenal abdominal aortic aneurysm, without rupture Blood Urea Nitrogen 3 Months I71.43 - Infrarenal abdominal aortic aneurysm, without rupture Creatinine 3 Months I71.43 - Infrarenal abdominal aortic aneurysm, without rupture Coding Level of Care Code Est Pt Level 4 (30438) Global (81194) Diagnoses Infrarenal abdominal aortic aneurysm (AAA) without rupture I71.43 Abdominal aorta location: infrarenal aorta
[2023-07-30 10:03] VITALS: BMI 32.8
== END 2023-07-30 10:38 | disposition home or self-care (01) ==
PROVIDERS: PCP Internal Medicine; Visit Provider Surgery Vascular Surgery
DX: I71.43 Infrarenal abdominal aortic aneurysm, without rupture (principal)
CPT/HCPCS: 99024

== ENCOUNTER → 2023-07-30 09:47 | Outpatient (BNVA) | payer MEDICARE, SELFPAY | PROVIDERS: PCP Internal Medicine; Visit Provider Surgery Vascular Surgery | DX: I71.43 Infrarenal abdominal aortic aneurysm, without rupture (principal) | CPT/HCPCS: 99212 ==

== ENCOUNTER 2023-08-10 06:34 | Outpatient (REF) | payer MEDICARE, SELFPAY ==
[2023-08-10 11:57] LABS: MANUAL DIFF FLAG NO
[2023-08-10 11:59] LABS: Eosinophils Absolute Auto 0.1 X10*3/uL (0.0-0.4); Eosinophils Percent Auto 1.1 % (0-4); Hematocrit 31.4 % (42.0-52.0); Imm Gran Abs Auto 0.01 X10*3/uL (0.00-0.03); Imm Gran Pct Auto 0.2 % (0.0-0.4); Lymphocytes Absolute Auto 0.7 X10*3/uL (1.2-4.9); Lymphocytes Percent Auto 12.5 % (20-40); Mean Corpuscular HGB Conc 31.8 g/dl (31.0-36.0); Mean Corpuscular Volume 106.8 fL (80.0-98.0); Mean Platelet Volume 9.9 fL (9.4-12.4); Monocytes Absolute Auto 0.5 X10*3/uL (0.1-1.2); Monocytes Percent Auto 9.7 % (2-11); Neutrophils Absolute Auto 4.2 x10*3/uL (2.0-8.3); Neutrophils Percent Auto 76.5 % (45-73); Platelet Count 150 X10*3/uL (160-400); Red Blood Count 2.94 X10*6/uL (4.60-5.80); Red Cell Distribution Width 15.9 % (11.0-16.0); White Blood Count 5.4 X10*3/uL (4.8-10.8)
[2023-08-10 12:28] LABS: Alanine Aminotransferase 14 U/L (0-40); Albumin Level 3.7 g/dL (3.5-5.0); Alkaline Phosphatase 134 U/L (39-117); Anion Gap 10 (12-20); Aspartate Amino Transferase 16 U/L (5-37); Bilirubin Total 0.7 mg/dL (0.0-1.0); Blood Urea Nitrogen 21 mg/dL (9-16); Carbon Dioxide 28 mmol/L (22-29); Chloride 107 mmol/L (96-108); Estimated Glomerular Filt Rate > 60; Glucose Random 141 mg/dL (60-115); Potassium 3.4 mmol/L (3.3-5.1); Sodium 142 mmol/L (135-145); Total Protein 6.8 g/dL (6.5-8.0)
[2023-08-10 12:35] LABS: Free T4 (Free Thyroxine) 1.01 ng/dL (0.71-1.85); Thyroid Stimulating Hormone 2.93 uIU/mL (0.32-4.0)
== END 2023-08-10 06:35 | disposition home or self-care (01) ==
LOC: HO.HMGCLDS 06:34
PROVIDERS: PCP Internal Medicine; Visit Provider Internal Medicine
DX: E11.65 Type 2 diabetes mellitus with hyperglycemia (principal)
CPT/HCPCS: 36415; 80053; 83735; 84439; 84443; 85025

== ENCOUNTER 2023-08-14 08:30 | Outpatient (AMB) | payer MEDICARE, SELFPAY ==
[2023-08-14 08:41] VITALS: BP 108/62; PULSE 67; O2SAT 94; BMI 33.3
--- NOTE | 2023-08-14 08:41 | A.OFFPC_ITS ---
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 Required: No Allergies Penicillins Allergy (Severe, Verified 08/14/23 08:42) Anaphylaxis hydrochlorothiazide Allergy (Unknown, Verified 08/14/23 08:42) Unknown lisinopril Allergy (Unknown, Verified 08/14/23 08:42) Unknown regadenoson [From Lexiscan] Adverse Reaction (Verified 08/14/23 08:42) Bradycardic Tobacco use date assessed: 08/14/23 Fall risk assessment: No Falls in past year Last assessed Fall Risk: 08/14/23 Dental Screening Dental Screen Date: 05/03/23 Did you have a dental visit in the last 12 months?: No Did you have a dental problem in the last 6 months where you did not have access to dental care?: No HPI CAD, A fib, COPD HPI Details 77-year-old obese male with atrial fibri llation controlled diabetes mellitus COPD with interstitial lung disease coronary artery disease hypertension hypercholesterolemia hypothyroidism coming in for follow-up. Last seen in April 2023. Colonoscopy is up-to-date in May 2021 patient was found to have a 5.7 infrarenal abdominal aortic aneurysm. patient has had repair on it in June [address] scan patient also follows up with Pulmonary. Incidental CT scan showing T9 anterior wedge compression fracture bilateral nonobstructing renal calculi diverticulosis borderline aneurysmal dilatation of the ascending thoracic aorta ground-glass opacities right upper middle lower lobe of the lungs. Patient has also been following up with Cardiology and Hematology Oncology. Patient also has been follow-up with endocrinology for the hypothyroidism status post left hemithyroidectomy March 2021. [facility] Medical History (Updated 08/14/23 @ 09:13 by Oswaldo Delgado MD) Supplemental oxygen dependent ILD (interstitial lung disease) COPD (chronic obstructive pulmonary disease) Tubular adenoma of colon (~2021) Postoperative hypothyroidism Obesity (BMI 30-39.9) Atrial fibrillation Chest discomfort Bronchitis Hemoptysis HOLLOWAY (dyspnea on exertion) Abnormal SPEP Multinodular thyroid Swelling of left lower extremity Pulmonary nodules/lesions, multiple Ground glass opacity present on imaging of lung Wedge compression fracture of T9 vertebra (~2018) Coronary artery disease Hypertension Right renal stone Thyroid nodule Vitamin D deficiency Ascending aorta dilatation Obesity (BMI 30-39.9) Psoriasis Hypercholesterolemia Former smoker Stable angina Surgical History (Updated 08/14/23 @ 09:07 by Oswaldo Delgado MD) Status post AAA (abdominal aortic aneurysm) repair Hx of bilateral cataract extraction (~2022) History of partial thyroidectomy (~2020) History of heart artery stent (~2019) History of colonoscopy History of cardioversion (~2020) History of appendectomy History of tonsillectomy History of lung biopsy (~2016) Family History Father Heart disease Mother Throat cancer Paternal Grandfather Heart disease Social History Household Members: Spouse Housing: Unknown / Unable to assess Are you a primary small animal caretaker to a significant other at home: No Do you presently have visiting nurse or other home services: No Alcohol intake: former Year quit: 2014 Patient Tobacco Use Status: Former Tobacco user Quit Date: 2014 Tobacco use type: Cigarette Years Smoked: 50 e-Cigarette/Vaping Use: Former Use Second Hand Smoke Exposure: No Advance Directives Date on File: 09/21/20 service: Yes Current occupational status: retired Cognitive needs: No Hearing needs: No Vision needs: Yes Questionnaire Thrive Questionnaire Date Thrive assessed: 08/14/23 I am a: Patient What is your living situation today?: I have a steady place to live Within the past 12 months, did the food you bought not last and you didn't have the money to get more?: Never true Within the past 12 months, did you worry whether your food would run out before you got money to buy more?: Never true Do you have trouble paying for medicines?: No Do you have trouble getting transportation to medical appointments?: No Do you have trouble paying your heating and electricity bill?: No Do you have trouble taking care of your child, family member or friend?: No Do you have trouble with day-to-day activities such as bathing, preparing meals, shopping, managing finances, etc.?: No Are you currently unemployed and looking for a job?: No Are you interested in more education?: No Please select the resources that you would like help with: None Currently or been in a relationship where the following occur: no concerns reported THRIVE Score: 0 AUDIT C Alcohol Use Questionnaire (AUDIT-C) 1. How often do you have a drink containing alcohol?: Never 2. How many drinks containing alcohol do you have on a typical day when you are drinking?: 1 or 2 (0) 3. How often do you have six or more drinks on one occasion?: Never Total Score: 0 JORGE-7 AMB Questionnaire JORGE-7 Date JORGE - 7 assessed: 05/03/23 Source: Developed by Drs. Ever Nelson, Sarah Galindo, Lopez Owen and colleagues, with an educational moira from [employer]. Physical exam (Primary Care) Vital Signs: Last Vital Signs Pulse 67 08/14/23 08:41 BP 108/62 08/14/23 08:41 Pulse Ox 94 08/14/23 08:41 Oxygen Delivery Method Nasal Cannula 08/14/23 08:41 BMI result Body Mass Index 33.3 Tobacco/Smoking Status: Tobacco use Status Tobacco use date assessed 08/14/23 08/14/23 08:43 Patient Tobacco Use Status Former Tobacco user 08/14/23 08:43 Tobacco use type Cigarette 08/14/23 08:43 e-Cigarette/Vaping Use Former Use 08/14/23 08:43 Thrive Assessment: Date of Thrive Assessment Date Thrive assessed 08/14/23 08/14/23 08:43 Currently or been in a relationship where the following occur: no concerns reported Const General: alert; No acute distress Eyes Conjunctivae: conjunctivae normal Resp Auscultation: clear to auscultation bilaterally Cardio Rate: regular rate Rhythm: regular rhythm GI Inspection: Yes normal to inspection Other: R groin 9 inch scar good Extrem General: Yes normal to inspection and No edema Results AMB Hemoglobin A1c AMB Hemoglobin A1c 5.6 % Last Edit by CEDRICK Fenton on 08/14/23 08:56 Results Reviewed Results Reviewed: Laboratory Last Values Hgb A1c (Clinic) 5.6 % (4.0-6.0) 08/14/23 08:43 Assessment and Plan Assessment & Plan (1) AAA (abdominal aortic aneurysm) without rupture: Comment: endovascular aneurysm repair on 07/16/2023 with Endologix a FX 2 device. Code(s): I71.40 - Abdominal aortic aneurysm, without rupture, unspecified Qualifiers: Abdominal aorta location: infrarenal aorta Qualified Code(s): I71.43 - Infrarenal abdominal aortic aneurysm, without rupture Plan: Patient continues to be followed up by vascular surgeon post surgery (2) Bilateral renal stones: Comment: June 2023 Code(s): N20.0 - Calculus of kidney Plan: Keep well hydrated (3) Permanent atrial fibrillation: Code(s): I48.21 - Permanent atrial fibrillation Plan: Continue with anticoagulation on Eliquis patient follows up with Cardiology (4) Type 2 diabetes mellitus with hyperglycemia: Comment: Dr. Waddell and Dr. Mccord Code(s): E11.65 - Type 2 diabetes mellitus with hyperglycemia Plan: Decrease the amount of carbohydrate intake, pasta, bread, rice and potatoes are all sugar and that is aside from all the sweet stuff, remember that fruits are good but they are Sweet also. Diet control (5) Ascending aorta dilatation: Comment: (ascending thoracic aorta -slightly dilated 4.3 x 4.2 cm - 07/24/[address]) 01/2022 4.3-4.5 cm 02/2023 4.3 Code(s): I77.810 - Thoracic aortic ectasia Plan: Continue to be followed up with echocardiogram controlled blood pressure control cholesterol (6) COPD (chronic obstructive pulmonary disease): Code(s): J44.9 - Chronic obstructive pulmonary disease, unspecified Plan: Continue with oxygen as well as the inhalers patient follows up with Pulmonary (7) Coronary artery disease: Comment: (NSTEMI 04/2019 - JL + proximal and distal RCA rotablation) Code(s): I25.10 - Atherosclerotic heart disease of [place] coronary artery without angina pectoris Qualifiers: Coronary Disease-Associated Artery/Lesion type: [place] artery [place] vs. transplanted heart: [place] heart Associated angina: without angina Qualified Code(s): I25.10 - Atherosclerotic heart disease of [place] coronary artery without angina pectoris Plan: Control the cholesterol, weight, blood pressure, diabetes presently on anti coagulation (8) Hypertension: Code(s): I10 - Essential (primary) hypertension Qualifiers: Hypertension type: essential hypertension Qualified Code(s): I10 - Essential (primary) hypertension Plan: Continue with blood pressure medication. Decrease salt intake and exercise patient is taking diltiazem 300 mg once a day metoprolol 75 mg twice a day (9) Hypercholesterolemia: Code(s): E78.00 - Pure hypercholesterolemia, unspecified Plan: Avoid fried foods, chicken skin, eggs, butter margarine, pastries and meat. Be it pork or beef they have a lot of cholesterol atorvastatin 80 mg once a day April 2023 last blood (10) Postoperative hypothyroidism: Comment: (s/p left hemithyroidectomy 03/2021) Code(s): E89.0 - Postprocedural hypothyroidism Plan: Continue with present thyroid medication (11) Obesity (BMI 30-39.9): Code(s): E66.9 - Obesity, unspecified Plan: Diet and exercise (12) Anemia: Code(s): D64.9 - Anemia, unspecified Orders: Orders Ferritin 3 Months D64.9 - Anemia, unspecified IRON PROFILE 3 Months D64.9 - Anemia, unspecified Vitamin B12 and Folate 3 Months D64.9 - Anemia, unspecified AMB Hemoglobin A1c Today E11.65 - Type 2 diabetes mellitus with hyperglycemia Complete Blood Count Auto Diff 3 Months D64.9 - Anemia, unspecified Reticulocyte Count 3 Months D64.9 - Anemia, unspecified Thyroid Stimulating Hormone 3 Months D64.9 - Anemia, unspecified Free T4 (Free Thyroxine) 3 Months D64.9 - Anemia, unspecified Comprehensive Met. Panel 3 Months D64.9 - Anemia, unspecified B Type Natriuretic Peptide 3 Months D64.9 - Anemia, unspecified Coding Level of Care Code Est Pt Level 4 (65667) Diagnoses Infrarenal abdominal aortic aneurysm (AAA) without rupture I71.43 Abdominal aorta location: infrarenal aorta Bilateral renal stones N20.0 Permanent atrial fibrillation I48.21 Type 2 diabetes mellitus with hyperglycemia E11.65 Ascending aorta dilatation I77.810 COPD (chronic obstructive pulmonary disease) J44.9 Coronary artery disease involving [place] coronary artery of [place] heart without angina pectoris I25.10 Coronary Disease-Associated Artery/Lesion type: [place] artery [place] vs. transplanted heart: [place] heart Associated angina: without angina Essential hypertension I10 Hypertension type: essential hypertension Hypercholesterolemia E78.00 Postoperative hypothyroidism E89.0 Obesity (BMI 30-39.9) E66.9 Anemia D64.9
== END 2023-08-14 09:22 | disposition home or self-care (01) ==
PROVIDERS: PCP Internal Medicine; Visit Provider Internal Medicine
DX: I48.21 Permanent atrial fibrillation (principal); E11.65 Type 2 diabetes mellitus with hyperglycemia; J44.9 Chronic obstructive pulmonary disease, unspecified; N20.0 Calculus of kidney; I25.10 Atherosclerotic heart disease of native coronary artery without angina pectoris; I10 Essential (primary) hypertension; E78.00 Pure hypercholesterolemia, unspecified; E89.0 Postprocedural hypothyroidism; D64.9 Anemia, unspecified
CPT/HCPCS: 83036; 99214

== ENCOUNTER 2023-08-14 14:25 | Outpatient (AMB) | payer MEDICARE, SELFPAY ==
--- NOTE | 2023-08-14 14:35 | A.OFFVIS_ITS ---
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 Accompanied by: Self / Same As Patient Allergies Penicillins Allergy (Severe, Verified 08/14/23 08:42) Anaphylaxis hydrochlorothiazide Allergy (Unknown, Verified 08/14/23 08:42) Unknown lisinopril Allergy (Unknown, Verified 08/14/23 08:42) Unknown regadenoson [From Lexiscan] Adverse Reaction (Verified 08/14/23 08:42) Bradycardic Medication List - Last Reconciled 08/14/23 by Ja Jean-Baptiste MD adalimumab (Humira(CF) Pen) 40 mg subcut Q2W apixaban (Eliquis) 5 mg PO BID atorvastatin 80 mg PO BEDTIME zhaedrhbid-hcugscjq-bmzxkuldcd 160-9-4.8 mcg/actuation (Breztri Aerosphere) 2 inhalations inhalation BID cholecalciferol (vitamin D3) 50 mcg PO DAILY clopidogrel 75 mg PO DAILY compress.stocking,knee,reg,med As directed 20-30 mm HG cyanocobalamin (vitamin B-12) (Vitamin B-12) 1,000 mcg PO DAILY digoxin 125 mcg PO MOWEFR 90 days diltiazem HCl CD 300 mg PO DAILY furosemide (Lasix) 20 mg PO DAILY levothyroxine 50 mcg PO DAILY@0600 metoprolol tartrate 75 mg (3 x 25 mg) PO BID 90 days [OXYGEN 2 L NC keep sats > 90 As directed] [PORTABLE OXYGEN TANK As directed] HPI Comments Details: 77-year-old gentleman here for follow-up. He is denying any chest discomfort No bleeding issues. Has been in chronic atrial fibrillation. Overall doing old without any significant bleeding issues or chest discomfort. Compliant with medications. He has dyspnea on exertion and has underlying lung disease. He is saying he has been started on supplemental oxygen which she is supposed to wear with activities. He previously had RCA PCI and his presentation was with dyspnea at that time too. He is saying that his lung disease is progressed and recently after CT scan he was told by pulmonology that he has interstitial lung disease. He is saying his breathing is worsened in the last 6 months. His denying any chest discomfort. As before using supplemental oxygen as needed. 12/10/22: He returns for follow-up. On last visit was complaining of shortness of breath. He has lung disease which is the cause for dyspnea but previously had dyspnea as an anginal equivalent to. After discussion with [facility] and when Lexiscan in October 2022 which was normal. He is saying his breathing is at baseline. He has been using oxygen over the last several months with ambulation. He is following closely with pulmonology. No chest discomfort or any other concerning symptoms. Blood pressure control is good. He has permanent atrial fibrillation. 04/10/2023: He returns for follow-up. He is denying any significant symptoms. He is on supplemental oxygen and has been using oxygen more frequently. He has been more sedentary. His blood pressure and heart rate both were elevated in the office. He is taking his medications as before and has not missed his medications. He is complaining of some fatigue too. He said that he has not been exercising but plans to restart pulmonary rehabilitation. His repeat blood pressure was 140/80 manually. His heart rate was still in low 100s after resting. He is saying at home he has checked his heart rate before and was anywhere from 60-80. 08/14/23: He is here for follow-up. He underwent endovascular repair of abdomi nal aortic aneurysm successfully. He has been doing well since then. He is noticed some lower extremity edema right more than left. He is on diltiazem. He is on digoxin and the apixaban for anticoagulation. He is saying that his breathing has been worse than before specially since winter he has not exercise much. He was previously doing cardiac rehabilitation and will be restarting it. COUNTS INCLUDE 234 BEDS AT THE [facility] Medical History (Updated 08/14/23 @ 09:13 by Oswaldo Delgado MD) Supplemental oxygen dependent ILD (interstitial lung disease) COPD (chronic obstructive pulmonary disease) Tubular adenoma of colon (~2021) Postoperative hypothyroidism Obesity (BMI 30-39.9) Atrial fibrillation Chest discomfort Bronchitis Hemoptysis HOLLOWAY (dyspnea on exertion) Abnormal SPEP Multinodular thyroid Swelling of left lower extremity Pulmonary nodules/lesions, multiple Ground glass opacity present on imaging of lung Wedge compression fracture of T9 vertebra (~2018) Coronary artery disease Hypertension Right renal stone Thyroid nodule Vitamin D deficiency Ascending aorta dilatation Obesity (BMI 30-39.9) Psoriasis Hypercholesterolemia Former smoker Stable angina Surgical History Status post AAA (abdominal aortic aneurysm) repair Hx of bilateral cataract extraction (~2022) History of partial thyroidectomy (~2020) History of heart artery stent (~2019) History of colonoscopy History of cardioversion (~2020) History of appendectomy History of tonsillectomy History of lung biopsy (~2016) Family History Father Heart disease Mother Throat cancer Paternal Grandfather Heart disease Social History Household Members: Spouse Housing: Unknown / Unable to assess Are you a primary healthcare receptionist to a significant other at home: No Do you presently have visiting nurse or other home services: No Alcohol intake: former Year quit: 2014 Patient Tobacco Use Status: Former Tobacco user Quit Date: 2014 Tobacco use type: Cigarette Years Smoked: 50 e-Cigarette/Vaping Use: Former Use Second Hand Smoke Exposure: No Advance Directives Date on File: 09/21/20 service: Yes Current occupational status: retired Cognitive needs: No Hearing needs: No Vision needs: Yes Review of Systems Const Denies chills, Denies fatigue, Denies fever(s), Denies frequent falls, Denies weakness, Denies weight gain and Denies weight loss ENT Denies dizziness Card Denies chest pain, Denies leg edema, Denies lightheadedness, Denies palpitations, Denies dyspnea and Denies dyspnea on exertion Resp Denies cough, Denies dyspnea and Denies dyspnea on exertion GI Denies hematochezia Musc Denies abnormal gait, Denies muscle weakness, Denies numbness, Denies radiating pain into limb and Denies tingling Neuro Denies abnormal gait, Denies dizziness, Denies frequent falls, Denies numbness, Denies tingling and Denies weakness Endo Denies fatigue and Denies palpitations Physical Exam Vital Signs: Last Vital Signs Pulse 83 08/14/23 14:36 BP 140/70 H 08/14/23 14:36 BMI result Body Mass Index 33.6 GENERAL APPEARANCE: in no acute distress, pleasant. NECK: no carotid bruit, no jugular venous distention. SKIN: no suspicious lesions, warm and dry. HEART: no murmurs, irregular rate and rhythm. LUNGS: Clear to auscultation. ABDOMEN: soft, nontender. EXTREMITIES: 1 to 2+ edema right lower extremity, 1+ edema left lower extremity. PERIPHERAL PULSES: equal. NEUROLOGIC: No gross deficits, AAO X 3 Results AMB Hemoglobin A1c AMB Hemoglobin A1c 5.6 % Last Edit by CEDRICK Fenton on 08/14/23 08:56 Assessment & Plan Assessment & Plan (1) Hypertension: Code(s): I10 - Essential (primary) hypertension Category: Medical Qualifiers: Hypertension type: essential hypertension Qualified Code(s): I10 - Essential (primary) hypertension (2) Hypercholesterolemia: Code(s): E78.00 - Pure hypercholesterolemia, unspecified Category: Medical (3) Stable angina: Code(s): I20.8 - Other forms of angina pectoris Category: Medical Plan Pleasant 77 year gentleman is here for follow-up. He is background history of coronary artery disease with previous PCI to right coronary artery. He also has COPD and atrial fibrillation. We cardioverted him in the past but he did not have any significant change in his dyspnea and since then he has been treated with rate control strategy. He is on digoxin and diltiazem. He is some peripheral edema which could be related to diltiazem and he is taking furosemide 20 mg daily. He has not restarted cardiac rehabilitation. I have advised him to restart. I think most of his symptoms are again due to deconditioning along with underlying lung disease. I explained to him that right coronary artery ostial stenting has risk of restenosis and if he continues to have dyspnea despite rehabilitation then we should consider diagnostic angiography. He is agreeable with this strategy. Thank you for allowing me to participate in the care of your patient. Please feel free to contact me if you have any questions. Coding Level of Care Code Est Pt Level 4 (54381) Diagnoses Essential hypertension I10 Hypertension type: essential hypertension Hypercholesterolemia E78.00 Stable angina I20.8
[2023-08-14 14:36] VITALS: BP 140/70; PULSE 83; BMI 33.6
== END 2023-08-14 14:59 | disposition home or self-care (01) ==
PROVIDERS: PCP Internal Medicine; Visit Provider Internal Medicine Cardiovascular Disease
DX: I10 Essential (primary) hypertension (principal); E78.00 Pure hypercholesterolemia, unspecified; I20.89 Other forms of angina pectoris
CPT/HCPCS: 99214

== ENCOUNTER → 2023-08-14 14:25 | Outpatient (BNVA) | payer MEDICARE, SELFPAY | PROVIDERS: PCP Internal Medicine; Visit Provider Internal Medicine Cardiovascular Disease | DX: I10 Essential (primary) hypertension (principal); E78.00 Pure hypercholesterolemia, unspecified; I20.89 Other forms of angina pectoris | CPT/HCPCS: 99212 ==

== ENCOUNTER 2023-09-13 10:39 | Emergency (ER) | payer MEDICARE, SELFPAY ==
[2023-09-13 10:19] VITALS: BMI 32.0
[2023-09-13 11:52] VITALS: BP 138/69; PULSE 73; RESP 16; TEMP 36.5; O2SAT 95; BMI 34.7
[2023-09-13 14:54] VITALS: BP 134/67; PULSE 71; RESP 14; TEMP 36.6; O2SAT 97
--- NOTE | 2023-09-13 14:59 | ED.GENADULT ---
HPI - General Adult General Chief complaint: Dental/Oral Stated complaint: cut tongue Time Seen by Provider: 09/13/23 14:47 Source: patient Mode of arrival: ambulatory Limitations: no limitations History of Present Illness HPI narrative: patient is a 77-year-old male who presents emergency department for evaluation of laceration to his tongue. He reports that he was eating a bagel this morning when he accidentally bit the tip of his tongue. Had active bleeding at the time of his arrival to the emergency department, reports being on Eliquis and Plavix. At this time there is no active bleeding. He denies any dizziness, lightheadedness, shortness of breath, chest pain Related Data Home Medications ?Medication ?Instructions ?Recorded ?Confirmed adalimumab 40 mg/0.4 mL 40 mg subcut Q2W 10/10/22 07/15/23 subcutaneous pen kit (Humira(CF) Pen) Previous Rx's ?Medication ?Instructions ?Recorded OXYGEN 2 L NC keep sats > 90 #1 ea 02/12/22 PORTABLE OXYGEN TANK #1 ea 02/22/22 compress.stocking,knee,reg,med #2 ea 04/10/22 atorvastatin 80 mg tablet 80 mg PO BEDTIME #90 tabs 01/14/23 diltiazem HCl 300 mg 300 mg PO DAILY #90 caps 04/08/23 capsule,extended release 24 hr clopidogrel 75 mg tablet 75 mg PO DAILY #90 tabs 05/01/23 apixaban 5 mg tablet (Eliquis) 5 mg PO BID #60 tabs 05/06/23 cyanocobalamin (vitamin B-12) 1,000 mcg PO DAILY #90 tabs 05/26/23 1,000 mcg tablet (Vitamin B-12) cholecalciferol (vitamin D3) 50 50 mcg PO DAILY #90 caps 06/07/23 mcg (2,000 unit) capsule levothyroxine 50 mcg tablet 50 mcg PO DAILY@0600 #30 tabs 06/25/23 digoxin 125 mcg (0.125 mg) tablet 125 mcg PO MOWEFR 90 days #39 tabs 07/11/23 furosemide 20 mg tablet (Lasix) 20 mg PO DAILY #90 tabs 07/11/23 metoprolol tartrate 25 mg tablet 75 mg (3 x 25 mg) PO BID 90 days 07/11/23 #540 tabs theophylline 400 mg 400 mg PO DAILY 30 days #30 tabs 08/26/23 tablet,extended release 24 hr budesonide 160 mcg-glycopyr 9 2 inh inhalation BID #10.7 grams 08/29/23 mcg-formot 4.8 mcg/actuation HFA inhaler (Breztri Aerosphere) Allergies Allergy/AdvReac Type Severity Reaction Status Date / Time Penicillins Allergy Severe Anaphylaxis Verified 09/13/23 11:53 hydrochlorothiazide Allergy Unknown Unknown Verified 09/13/23 11:53 lisinopril Allergy Unknown Unknown Verified 09/13/23 11:53 regadenoson [From Lexiscan] AdvReac Bradycardic Verified 09/13/23 11:53 Review of Systems Review of Systems: Yes all other systems are reviewed and are negative PMFSH Past Medical History Attestation statement: The following information was validated with the patient. Source: old records reviewed Medical History Supplemental oxygen dependent ILD (interstitial lung disease) COPD (chronic obstructive pulmonary disease) Tubular adenoma of colon (~2021) Postoperative hypothyroidism Obesity (BMI 30-39.9) Atrial fibrillation Chest discomfort Bronchitis Hemoptysis HOLLOWAY (dyspnea on exertion) Abnormal SPEP Multinodular thyroid Swelling of left lower extremity Pulmonary nodules/lesions, multiple Ground glass opacity present on imaging of lung Wedge compression fracture of T9 vertebra (~2018) Coronary artery disease Hypertension Right renal stone Thyroid nodule Vitamin D deficiency Ascending aorta dilatation Obesity (BMI 30-39.9) Psoriasis Hypercholesterolemia Former smoker Stable angina Surgical History Status post AAA (abdominal aortic aneurysm) repair Hx of bilateral cataract extraction (~2022) History of partial thyroidectomy (~2020) History of heart artery stent (~2019) History of colonoscopy History of cardioversion (~2020) History of appendectomy History of tonsillectomy History of lung biopsy (~2016) Family History Family History Father Heart disease Mother Throat cancer Paternal Grandfather Heart disease Social History Social History Household Members: Spouse Housing: Unknown / Unable to assess Are you a primary career discovery teacher to a significant other at home: No Do you presently have visiting nurse or other home services: No Alcohol intake: former Year quit: 2014 Patient Tobacco Use Status: Former Tobacco user Quit Date: 2014 Tobacco use type: Cigarette Years Smoked: 50 e-Cigarette/Vaping Use: Former Use Second Hand Smoke Exposure: No Advance Directives: No Advance Directives Information Provided: Yes Advance Directives Date on File: 09/21/20 service: Yes Current occupational status: retired Cognitive needs: No Hearing needs: No Vision needs: Yes Physical Exam ED Vital Signs: Vital Signs - 24 hr 09/13/23 11:52 09/13/23 14:54 Temperature 97.7 F 97.8 F Pulse Rate 73 71 Respiratory Rate 16 14 Blood Pressure 138/69 134/67 Pulse Oximetry 95 97 Oxygen Delivery Method Room Air Room Air BMI result Body Mass Index 34.7 Appearance: Alert.?Oriented to person, place and time. No acute distress.?Normal affect. Eyes: Pupils equal, round and reactive to light.? ENT: Pharynx normal.?? 1 cm superficial laceration to the distal tip of the tongue, no active bleeding, no gaping Neck: Normal inspection.? Neck supple.?? CVS: Heart sounds normal. Normal heart rate and rhythm.? Pulses normal.?? Respiratory: No respiratory distress.? Lung sounds clear to auscultation bilaterally?? Skin: Skin warm and dry.? Normal skin color.? Extremities: No lower extremity edema.? Neuro: Moves all extremities spontaneously. Sensation intact bilaterally.Ambulates with normal steady gait. Medical Decision Making Medical Decision Making MDM Narrative: patient is a 77-year-old male with history of atrial fibrillation on chronic long-term anticoagulation with Eliquis Plavix who presents emergency department for evaluation of accidental laceration to the distal tip of his tongue after accidentally biting it. Laceration is superficial in nature, not gaping, would not be amenable to any suture repair at this time. There was no bleeding. Signs symptoms to suggest significant blood loss anemia. At this time feel that he is stable for discharge home. Discussed warm saltwater gargles, worrisome signs and symptoms that would warrant re-evaluation in the emergency department. Stable for discharge Differential Diagnosis Differential Diagnoses: The differential diagnosis associated with the presentation includes ( laceration, blood loss anemia, uncontrolled bleeding) External Record Review External record reviewed: Outpatient record Discharge Plan Discharge Clinical Impression: Simple laceration of tongue Patient Disposition: Home, Self-Care Instructions: Laceration (ED) Additional Instructions: As discussed, there is no indication for suture repair to your tongue. There is no active bleeding. warm salt water gargles 3-4 times daily. Follow-up with your primary care provider. Prescriptions: No Action (DME) OXYGEN 2 L NC keep sats > 90 See Rx Instructions .Route .MEDSUPPLY Qty: 1 0RF Rx Instructions: As directed (DME) PORTABLE OXYGEN TANK See Rx Instructions .Route .MEDSUPPLY Qty: 1 0RF Rx Instructions: As directed atorvastatin 80 mg tablet 80 mg PO BEDTIME Qty: 90 2RF diltiazem HCl 300 mg capsule,extended release 24hr 300 mg PO DAILY Qty: 90 3RF clopidogrel 75 mg tablet 75 mg PO DAILY Qty: 90 3RF Eliquis 5 mg tablet 5 mg PO BID Qty: 60 7RF cyanocobalamin (vitamin B-12) [Vitamin B-12] 1,000 mcg tablet 1,000 mcg PO DAILY Qty: 90 3RF cholecalciferol (vitamin D3) 50 mcg (2,000 unit) capsule 50 mcg PO DAILY Qty: 90 3RF levothyroxine 50 mcg tablet 50 mcg PO DAILY@0600 Qty: 30 3RF digoxin 125 mcg (0.125 mg) tablet 125 mcg PO MOWEFR 90 Days Qty: 39 3RF furosemide [Lasix] 20 mg tablet 20 mg PO DAILY Qty: 90 3RF metoprolol tartrate 25 mg tablet 75 mg PO BID 90 Days Qty: 540 3RF theophylline 400 mg tablet extended release 24 hr 400 mg PO DAILY 30 Days Qty: 30 6RF Breztri Aerosphere 160-9-4.8 mcg/actuation HFA aerosol inhaler 2 inh inhalation BID Qty: 10.7 0RF (DME) compress.stocking,knee,reg,med Misc See Rx Instructions .Route Qty: 2 0RF Rx Instructions: As directed 20-30 mm HG Humira(CF) Pen 40 mg/0.4 mL pen injector kit 40 mg subcut Q2W Referrals: Po,Oswaldo Deng MD [Primary Care Provider] - Print Language: Marshallese
[2023-09-13 15:18] VITALS: BP 134/67; PULSE 71; RESP 14; TEMP 36.6; O2SAT 97
== END 2023-09-13 15:19 | disposition home or self-care (01) ==
PROVIDERS: Emergency Provider Emergency Medicine Emergency Medical Services; PCP Internal Medicine
DX: S01.512A Laceration without foreign body of oral cavity, initial encounter (principal); X58.XXXA Exposure to other specified factors, initial encounter; Y93.9 Activity, unspecified; Y92.9 Unspecified place or not applicable; Y99.9 Unspecified external cause status
CPT/HCPCS: 99282; 99283

== ENCOUNTER 2023-09-25 12:39 | Outpatient (REF) | payer MEDICARE, SELFPAY ==
[2023-09-25 16:46] LABS: Blood Urea Nitrogen 24 mg/dL (9-16); Estimated Glomerular Filt Rate > 60
== END 2023-09-25 12:40 | disposition home or self-care (01) ==
LOC: HO.HMGCLDS 12:39
PROVIDERS: PCP Internal Medicine; Visit Provider Surgery Vascular Surgery
DX: I71.43 Infrarenal abdominal aortic aneurysm, without rupture (principal)
CPT/HCPCS: 36415; 82565; 84520

== ENCOUNTER 2023-10-09 08:18 | Outpatient (AMB) | payer MEDICARE, SELFPAY ==
--- NOTE | 2023-10-09 08:25 | MHC.OFFVIS ---
Intake Visit Reasons: 6m/PVR Intake Note: Patient presents for follow up on: Renal Cyst, Nocturia, and Frequency Urology Medications: tamsulosin Blood Thinner: apixaban, clopidogrel PVR: 37ml's Fusing Machine Feeder Required: No Accompanied by: Self / Same As Patient Allergies Penicillins Allergy (Severe, Verified 10/09/23 19:32) Anaphylaxis hydrochlorothiazide Allergy (Unknown, Verified 10/09/23 19:32) Unknown lisinopril Allergy (Unknown, Verified 10/09/23 19:32) Unknown regadenoson [From Lexiscan] Adverse Reaction (Verified 10/09/23 19:32) Bradycardic Medication List - Last Reconciled 10/09/23 by EVA Rodriguez adalimumab (Humira(CF) Pen) 40 mg subcut Q2W apixaban (Eliquis) 5 mg PO BID atorvastatin 80 mg PO BEDTIME bfksfpaazz-kjdrtuew-iciwplehqo 160-9-4.8 mcg/actuation (Breztri Aerosphere) 2 inhalations inhalation BID cholecalciferol (vitamin D3) 50 mcg PO DAILY clopidogrel 75 mg PO DAILY compress.stocking,knee,reg,med As directed 20-30 mm HG cyanocobalamin (vitamin B-12) (Vitamin B-12) 1,000 mcg PO DAILY digoxin 125 mcg PO MOWEFR 90 days diltiazem HCl CD 300 mg PO DAILY furosemide (Lasix) 20 mg PO DAILY levothyroxine 50 mcg PO QAM metoprolol tartrate 75 mg (3 x 25 mg) PO BID 90 days [OXYGEN 2 L NC keep sats > 90 As directed] [PORTABLE OXYGEN TANK As directed] terazosin 5 mg PO BEDTIME 30 days theophylline ER 400 mg PO DAILY 30 days HPI Comments Details: Pablito is a very pleasant 77-year-old male patient of Dr. Delgado. He has a past medical history of interstitial lung disease, COPD, hypothyroidism, obesity, paroxysmal atrial fibrillation, pulmonary nodules, coronary artery disease, hypertension, nephrolithiasis, vitamin-D deficiency, psoriasis, hypercholesteremia, and former smoker. He presents to the office today for follow-up. In discussion with the patient today reports to be doing and feeling well. He reports feeling 0.8 mg of Flomax at bedtime has been helpful however he does continue to experience episodes of nocturia 3-5 times per night despite limiting fluids 2-3 hours prior to bed. Previous workup has included a retroperitoneal ultrasound noting right kidney with no calculi, and or hydronephrosis. 1.0 x 1.1 x 1.2 cm simple cyst in the mid kidney is seen. No imaging follow-up is recommended per radiology report left kidney with no lesions, and or hydronephrosis. Multiple echogenic foci within the kidney, nonshadowing, without twinkle artifact, likely represent vascular calcifications. The bladder is well distended and normal. Bilateral ureteral jets are demonstrated. Pre void bladder volume is approximately 200 mL. Postvoid bladder volume is approximately 100 mL. The prostate is normal in size with a volume of 22 mL. Prior to initiation of Flomax he had been experiencing nocturia up to 10 times per night however he does feel nocturia episodes are increasing since his last office visit here approximately 6 months ago. He otherwise denies incontinence, hematuria, dysuria, foul smelling urine, changes to urinary stream, flank pain, fever, and or chills. In office urinalysis results reviewed with the patient today. PVR 37 mLs. PSAs are as follows: PSAs: 05/12 0.2, 02/09 0.2, 03/14 0.2, A1c: 08/13 5.6 Discussed at length potential causes nocturia. Patient otherwise denies any bothersome urinary issues or concerns at this time. [facility] Medical History Supplemental oxygen dependent ILD (interstitial lung disease) COPD (chronic obstructive pulmonary disease) Tubular adenoma of colon (~2021) Postoperative hypothyroidism Obesity (BMI 30-39.9) Atrial fibrillation Chest discomfort Bronchitis Hemoptysis HOLLOWAY (dyspnea on exertion) Abnormal SPEP Multinodular thyroid Swelling of left lower extremity Pulmonary nodules/lesions, multiple Ground glass opacity present on imaging of lung Wedge compression fracture of T9 vertebra (~2018) Coronary artery disease Hypertension Right renal stone Thyroid nodule Vitamin D deficiency Ascending aorta dilatation Obesity (BMI 30-39.9) Psoriasis Hypercholesterolemia Former smoker Stable angina Surgical History Status post AAA (abdominal aortic aneurysm) repair Hx of bilateral cataract extraction (~2022) History of partial thyroidectomy (~2020) History of heart artery stent (~2019) History of colonoscopy History of cardioversion (~2020) History of appendectomy History of tonsillectomy History of lung biopsy (~2016) Family History Father Heart disease Mother Throat cancer Paternal Grandfather Heart disease Social History Household Members: Spouse Housing: Unknown / Unable to assess Are you a primary medicare compliance auditor to a significant other at home: No Do you presently have visiting nurse or other home services: No Alcohol intake: former Year quit: 2014 Patient Tobacco Use Status: Former Tobacco user Tobacco use type: Cigarette Years Smoked: 50 e-Cigarette/Vaping Use: Former Use Second Hand Smoke Exposure: No Advance Directives Date on File: 09/21/20 service: Yes Current occupational status: retired Cognitive needs: No Hearing needs: No Vision needs: Yes Review of Systems Eyes Reports no additional complaints ENT Reports no additional complaints Card Reports as per HPI Resp Reports as per HPI GI Reports as per HPI Reports as per HPI Musc Reports as per HPI Neuro Reports as per HPI Psych Reports no additional complaints Endo Reports as per HPI Physical Exam Const General: cooperative, comfortable, no acute distress, well developed, alert and awake Orientation/consciousness: patient oriented x3 Limitations: other limitations (O2 dependent NC) HEENT Head: Yes normal to inspection, Yes normocephalic and Yes atraumatic Ears: hearing grossly normal bilaterally Eyes General: appearance normal, both eyes and all related structures Neck Neck: Yes normal visual inspection and Yes trachea midline Chest Chest palpation & inspection: normal inspection of the chest Resp Effort & Inspection: normal respiratory effort and able to speak in complete sentences Cardio Rate: regular rate GI Inspection: Yes normal to inspection General: Yes no CVA tenderness Back/Spine/Pelvis Back: no CVA tenderness Skin General skin exam: no rashes or lesions noted Neuro General: patient oriented x3 Extrem General: Yes normal to inspection Psych Appearance: grossly normal and well kempt Mental Status: mental status grossly normal Speech and movement: Normal speech and movement present and Clear speech present Affect: normal affect Attitude: cooperative Thought process: Normal thought process present Thought content: Normal thought content present Insight: Fair insight present (Psych) Judgement: Fair judgement present (Psych) Office Procedures Post Void Residual Post Residual Void Post Void Residual (PVR): 37 [id number] Void Residual by ultrasound Assessment & Plan Assessment & Plan (1) Lower urinary tract symptoms: Code(s): R39.9 - Unspecified symptoms and signs involving the genitourinary system Category: Medical (2) Nocturia: Code(s): R35.1 - Nocturia Category: Medical (3) Renal cyst: Code(s): N28.1 - Cyst of kidney, acquired Category: Medical Plan In office urinalysis results reviewed with the patient today; as noted above. PVR 37 mL. Stop Flomax. Start terazosin 5 mg at bedtime. Discussed importance of continuing to limit fluids 2-3 hours prior to bed to decrease episodes of nocturia. Discussed possible in office cystoscopy for further assessment evaluation if symptoms persist and/or worsen. Discussed at length potential causes of nocturia. Discussed bladder triggers/irritants. Discussed and stressed the importance of continuing to manage diabetes for improvement lower urinary tract symptoms as well as overall health and well-being. BERENICE offered however deferred Follow-up in 6-8 weeks with PVR; or sooner with any issues, concerns, and or questions. Orders: Orders AMB Post Void Residual by ultrasound Today N39.0 - Urinary tract infection, site not specified AMB Urinalysis Automated Today Z13.9 - Encounter for screening, unspecified Medications: New terazosin 5 mg PO BEDTIME 30 days 30 caps 2RF N40.1 - Benign prostatic hyperplasia with lower urinary tract symptoms, R35.0 - Frequency of micturition Patient Instructions: The patient had an opportunity to ask questions regarding the treatment plan. All questions were answered. Physical exam, labs, and imaging were discussed and reviewed in detail. As well as risks, benefits, and discussion of treatment choices. No major barriers to understanding were identified. The patient expressed understanding and agreement with the above treatment plan. The patient was made aware they should contact our office by phone for worsening of their current condition, the appearance of new symptoms, or with any questions or concerns. Compliance is encouraged with any medications and follow up testing that is ordered. It is a privilege to be allowed the opportunity to participate in? your urological care.? Again, if you have any questions or concerns If you have any questions or concerns please do not hesitate to contact me. The office is [phone]. This note is constructed using voice recognition software. While every effort has been made to ensure accuracy police detective errors may have been included. Yours sincerely, ADRIÁN Rodriguez-BEAU Coding Level of Care Code Est Pt Level 4 (96693) Complex EM visit Add On G2211 Diagnoses Lower urinary tract symptoms R39.9 Nocturia R35.1 Renal cyst N28.1 CPT Codes Post Residual Void - PVR CPT Code: 89960-Lpuf Void Residual by ultrasound ([id number])
== END 2023-10-09 09:03 | disposition home or self-care (01) ==
PROVIDERS: PCP Internal Medicine; Visit Provider Nurse Practitioner Family
DX: R39.9 Unspecified symptoms and signs involving the genitourinary system (principal); R35.1 Nocturia; N28.1 Cyst of kidney, acquired
CPT/HCPCS: 99214; G2211

== ENCOUNTER → 2023-10-09 08:18 | Outpatient (BNVA) | payer MEDICARE, SELFPAY ==
[2023-09-13 10:19] VITALS: BMI 32.0
== END ==
PROVIDERS: PCP Internal Medicine; Visit Provider Nurse Practitioner Family
DX: R39.9 Unspecified symptoms and signs involving the genitourinary system (principal); R35.1 Nocturia; N28.1 Cyst of kidney, acquired
CPT/HCPCS: 51798; 99212

== ENCOUNTER 2023-10-23 08:39 | Outpatient (REF) | payer MEDICARE, SELFPAY ==
--- NOTE | ~2023-10-23 | CT_ITS ---
EXAMINATION: CT ANGIOGRAM ABDOMEN AND PELVIS CLINICAL INFORMATION: Infrarenal AAA. COMPARISON: CT chest, abdomen and pelvis 06/20/2023. TECHNIQUE: Multiple axial images were obtained through the abdomen and pelvis following the administration of 85 mL of Omnipaque 350 intravenous contrast. Images were reviewed on a dedicated 3-D workstation. This CT examination was performed using dose optimization techniques as appropriate, variously including the following: *Automated exposure control *Adjustment of mA and/or kV according to patient size (this includes techniques or standardized protocols for targeted exams where dose is matched to indication/reason for exam; i.e. extremities or head) *Use of iterative reconstruction technique DLP: 319 mGy-cm VASCULAR FINDINGS: Since the prior study, the patient has undergone aortobiiliac stent graft. Maximal sac size on a 3-D model with measurements made perpendicular to a center line are 5.8 cm. When similar measurements are made on the prior study, maximal dimension perpendicular to a center line is 5.7 cm, essentially about the same. No endoleak is seen although the exam was not tailored for endoleak evaluation as no precontrast or delayed images were obtained. The celiac and SMA are patent both with ostial disease. The stent graft begins at the level of the renal arteries which are patent. There is infarction of a small segment of the lower pole on the right likely secondary to occlusion of a small accessory lower pole branch. The external iliac and common femoral arteries show moderate atherosclerotic changes as do the internal iliac arteries. NONVASCULAR FINDINGS: Lung Bases: There is interval increase in a right-sided pleural effusion which is now moderate. A small left-sided pleural effusion is present. Liver, Gallbladder, And Biliary Tree: The liver is normal in size, shape, and attenuation. No focal hepatic lesion or biliary ductal dilatation is present. Multiple hypodensities again seen in the liver consistent with benign cysts. A few scattered tiny hyperattenuating areas that may be secondary to hemangiomas or vascular malformations, not significantly changed from prior. The gallbladder is unremarkable with no evidence of radiopaque gallstones, gallbladder wall thickening, or obvious pericholecystic inflammatory changes. Pancreas: Unremarkable. Spleen: Unremarkable. Adrenal Glands: Unremarkable. Kidneys And Ureters: The kidneys are normal in size, shape, and attenuation with the exception of small area of infarction at the right lower pole (see above). No hydronephrosis, hydroureter, or calculi seen. No perinephric stranding. Bladder: Unremarkable. Gastrointestinal Tract: Extensive sigmoid diverticulosis with scattered diverticula elsewhere. No evidence of diverticulitis. The small and large bowel are otherwise unremarkable. The appendix is not seen but there is no evidence of appendicitis. Abdominal Wall: No significant hernia is appreciated. Lymph Nodes: No retroperitoneal lymphadenopathy. Pelvic Viscera: Dense calcification seen in the prostate. Seminal vesicles appear normal. Osseous Structures: Marked degenerative change seen in the lower thoracic spine as well as at L3-L4 and L5-S1. There is mild grade 1 anterolisthesis of L3 upon L4. CT/CT angio abdomen pelvis IMPRESSION: 1. Status post aortobiiliac stent graft with no evidence of endoleak seen on this study that was not tailored for endoleak evaluation. Aortic sac size is about the same as prestent graft. 2. Interval increase in right-sided pleural effusion which is now moderate. 3. Other incidental findings as described above including hepatic cysts, colonic diverticulosis and degenerative changes in the spine. Fleischner guidelines were followed.
[2023-10-23] MEDS: iohexoL 350 MG/ML 75 ML INFUS..BTL 80 ML IV (11:02)
== END 2023-10-23 08:40 | disposition home or self-care (01) ==
LOC: HO.CT 08:39
PROVIDERS: PCP Internal Medicine; Visit Provider Surgery Vascular Surgery
DX: I71.43 Infrarenal abdominal aortic aneurysm, without rupture (principal)
CPT/HCPCS: 74174; Q9967

== ENCOUNTER 2023-10-29 08:40 | Outpatient (AMB) | payer MEDICARE, SELFPAY ==
[2023-10-29 08:51] VITALS: BP 94/67; PULSE 69; O2SAT 92; BMI 32.0
--- NOTE | 2023-10-29 08:51 | A.OFFVIS_ITS ---
Vital Signs 10/29/23 08:51 Height 5 ft 8 in Weight 210 lb 8.663 oz BMI 32.0 BP 94/67 Blood Pressure Location Rt brachial Position Sitting Pulse 69 Pulse Source Doppler Pulse Oximetry (%) 92 Oxygen Delivery Method Nasal Cannula Oxygen Flow Rate 2 Intake Visit Reasons: COPD Allergies Penicillins Allergy (Severe, Verified 10/29/23 08:57) Anaphylaxis hydrochlorothiazide Allergy (Unknown, Verified 10/29/23 08:57) Unknown lisinopril Allergy (Unknown, Verified 10/29/23 08:57) Unknown regadenoson [From Lexiscan] Adverse Reaction (Verified 10/29/23 08:57) Bradycardic HPI HPI COPD: Details: 77-year-old gentleman, former 100+ pack-year smoker, quit 2014, with prior history of left lower lobe nodule biopsy benign in etiology, also on Humira for underlying psoriatic arthritis, followed for COPD and abnormal CT chest that demonstrated bilateral ground-glass densities that have been waxing and waning with some underlying pulmonary fibrosis. He has been tried on prednisone with no symptomatic or radiologic response.? He has been using BrezTri with reasonable control of his symptoms.? He has been using supplemental oxygen at 2- 3 L 24x7. Patient recently had endovascular AAA repair. He denies acute exacerbations at this time. [facility] Medical History Supplemental oxygen dependent ILD (interstitial lung disease) COPD (chronic obstructive pulmonary disease) Tubular adenoma of colon (~2021) Postoperative hypothyroidism Obesity (BMI 30-39.9) Atrial fibrillation Chest discomfort Bronchitis Hemoptysis HOLLOWAY (dyspnea on exertion) Abnormal SPEP Multinodular thyroid Swelling of left lower extremity Pulmonary nodules/lesions, multiple Ground glass opacity present on imaging of lung Wedge compression fracture of T9 vertebra (~2018) Coronary artery disease Hypertension Right renal stone Thyroid nodule Vitamin D deficiency Ascending aorta dilatation Obesity (BMI 30-39.9) Psoriasis Hypercholesterolemia Former smoker Stable angina Surgical History Status post AAA (abdominal aortic aneurysm) repair Hx of bilateral cataract extraction (~2022) History of partial thyroidectomy (~2020) History of heart artery stent (~2019) History of colonoscopy History of cardioversion (~2020) History of appendectomy History of tonsillectomy History of lung biopsy (~2017) Family History Father Heart disease Mother Throat cancer Paternal Grandfather Heart disease Social History Household Members: Spouse Housing: Unknown / Unable to assess Are you a primary healthcare advisory services manager to a significant other at home: No Do you presently have visiting nurse or other home services: No Alcohol intake: former Year quit: 2014 Patient Tobacco Use Status: Former Tobacco user Tobacco use type: Cigarette Years Smoked: 50 e-Cigarette/Vaping Use: Former Use Second Hand Smoke Exposure: No Advance Directives Date on File: 09/21/20 service: Yes Current occupational status: retired Cognitive needs: No Hearing needs: No Vision needs: Yes Review of Systems Const Denies daytime sleepiness, Denies excessive sweating, Denies fatigue, Denies fever(s), Denies lethargy, Denies malaise, Denies night sweats, Denies snoring and Denies weight loss Eyes Denies blurry vision and Denies itchy eyes ENT Denies nasal congestion, Denies post nasal drip, Denies sinus pain, Denies sinus pressure and Denies other ( Thrush) Card Denies chest pain, Denies pedal edema, Denies dyspnea, Denies orthopnea and Denies paroxysmal nocturnal dyspnea Resp Denies cough, Denies hemoptysis, Denies excessive phlegm production, Denies dyspnea, Denies snoring and Denies wheezing GI Denies abdominal pain and Denies heartburn Musc Denies myalgias, Denies arthralgias and Denies joint swelling Skin/Breast Denies rash Neuro Denies memory loss and Denies seizure-like activity Psych Denies abnormal sleep pattern, Denies anxiety and Denies memory loss Endo Denies excessive sweating, Denies fatigue and Denies heat intolerance Zhou/Lymph Denies easy bruising Aller/Immun Denies itchy eyes, Denies seasonal rhinorrhea and Denies wheezing Physical Exam Vital Signs: Last Vital Signs Pulse 69 10/29/23 08:51 BP 94/67 10/29/23 08:51 Pulse Ox 92 10/29/23 08:51 Oxygen Delivery Method Nasal Cannula 10/29/23 08:51 Oxygen Flow Rate 2 10/29/23 08:51 BMI result Body Mass Index 32.0 Const General: no acute distress and alert Nutritional Appearance: not obese Orientation/consciousness: Other orientation findings ( oriented) HEENT Head: Yes atraumatic Eyes General: appearance normal, both eyes and all related structures Sclerae: sclerae normal EOM: EOMs intact bilaterally Neck Neck: Yes supple Lymphatic: no lymphadenopathy noted Resp Effort & Inspection: normal respiratory effort and no use of accessory muscles Auscultation: clear to auscultation bilaterally Cardio Rate: regular rate Rhythm: regular rhythm Heart sounds: no gallops, no murmurs and no rubs Skin General skin exam: other ( warm) Extrem General: No clubbing, No cyanosis and No edema Assessment & Plan Assessment & Plan (1) COPD (chronic obstructive pulmonary disease): Code(s): J44.9 - Chronic obstructive pulmonary disease, unspecified Category: Medical Plan: Reasonable control on current regimen BrezTri, albuterol, and theophylline. Continue current regimen. (2) Supplemental oxygen dependent: Code(s): Z99.81 - Dependence on supplemental oxygen Category: Medical Plan: Continue supplemental oxygen to maintain O2 saturation of 88-92%. Patient states that his DME supplies him with 10 portable tanks/months which is absolutely insufficient for his needs. On discussion with DME company ([employer]) patient to be contacted by DME bus company manager to resolve the issue. (3) Pulmonary nodule: Code(s): R91.1 - Solitary pulmonary nodule Category: Medical Plan: Results of CT chest from 06/15 reviewed. No worrisome nodules at this time. Does not require further imaging follow-up. Medications: Refilled gvuxtfcqum-npiyegmh-gnxfsxlexd 160-9-4.8 mcg/actuation (Breztri Aerosphere) 2 i nhalations inhalation BID 10.7 grams 6RF theophylline ER 400 mg PO DAILY 30 days 30 tabs 6RF Coding Level of Care Code Est Pt Level 4 (02684) Complex EM visit Add On G2211 Diagnoses COPD (chronic obstructive pulmonary disease) J44.9 Supplemental oxygen dependent Z99.81 Pulmonary nodule R91.1
== END 2023-10-29 09:12 | disposition home or self-care (01) ==
PROVIDERS: PCP Internal Medicine; Visit Provider Internal Medicine Pulmonary Disease
DX: J44.9 Chronic obstructive pulmonary disease, unspecified (principal); Z99.81 Dependence on supplemental oxygen; R91.1 Solitary pulmonary nodule
CPT/HCPCS: 99214; G2211

== ENCOUNTER → 2023-10-29 08:40 | Outpatient (BNVA) | payer MEDICARE, SELFPAY | PROVIDERS: PCP Internal Medicine; Visit Provider Internal Medicine Pulmonary Disease | DX: J44.9 Chronic obstructive pulmonary disease, unspecified (principal); R91.1 Solitary pulmonary nodule; Z99.81 Dependence on supplemental oxygen | CPT/HCPCS: 99212 ==

== ENCOUNTER 2023-10-31 13:32 | Outpatient (AMB) | payer MEDICARE, SELFPAY ==
[2023-10-31 13:59] VITALS: BP 110/60; PULSE 68; BMI 32.4
--- NOTE | 2023-10-31 13:59 | MHC.OFFVIS ---
Vital Signs 10/31/23 13:59 Height 5 ft 8 in Weight 212 lb 15.465 oz BMI 32.4 BP 110/60 Blood Pressure Location Lt brachial Position Sitting Pulse 68 Pulse Source Pulse Oximeter Intake Visit Reasons: 2 mth f/up Vice President Integrated Required: No Accompanied by: Self / Same As Patient Allergies Penicillins Allergy (Severe, Verified 10/29/23 08:57) Anaphylaxis hydrochlorothiazide Allergy (Unknown, Verified 10/29/23 08:57) Unknown lisinopril Allergy (Unknown, Verified 10/29/23 08:57) Unknown regadenoson [From Lexiscan] Adverse Reaction (Verified 10/29/23 08:57) Bradycardic Medication List - Last Reconciled 10/31/23 by Ja Jean-Baptiste MD adalimumab (Humira(CF) Pen) 40 mg subcut Q2W apixaban (Eliquis) 5 mg PO BID atorvastatin 80 mg PO BEDTIME [id number] 160-9-4.8 mcg/actuation (Breztri Aerosphere) 2 inhalations inhalation BID cholecalciferol (vitamin D3) 50 mcg PO DAILY clopidogrel 75 mg PO DAILY compress.stocking,knee,reg,med As directed 20-30 mm HG cyanocobalamin (vitamin B-12) (Vitamin B-12) 1,000 mcg PO DAILY digoxin 125 mcg PO MOWEFR 90 days diltiazem HCl CD 300 mg PO DAILY furosemide (Lasix) 20 mg PO DAILY levothyroxine 50 mcg PO QAM metoprolol tartrate 75 mg (3 x 25 mg) PO BID 90 days [OXYGEN 2 L NC keep sats > 90 As directed] [PORTABLE OXYGEN TANK As directed] terazosin 5 mg PO BEDTIME 30 days HPI Comments Details: 77-year-old gentleman here for follow-up. He is denying any chest discomfort No bleeding issues. Has been in chronic atrial fibrillation. Overall doing old without any significant bleeding issues or chest discomfort. Compliant with medications. He has dyspnea on exertion and has underlying lung disease. He is saying he has been started on supplemental oxygen which she is supposed to wear with activities. He previously had RCA PCI and his presentation was with dyspnea at that time too. He is saying that his lung disease is progressed and recently after CT scan he was told by pulmonology that he has interstitial lung disease. He is saying his breathing is worsened in the last 6 months. His denying any chest discomfort. As before using supplemental oxygen as needed. 12/10/22: He returns for follow-up. On last visit was complaining of shortness of breath. He has lung disease which is the cause for dyspnea but previously had dyspnea as an anginal equivalent to. After discussion with [facility] stress testing and when Lexiscan in October 2022 which was normal. He is saying his breathing is at baseline. He has been using oxygen over the last several months with ambulation. He is following closely with pulmonology. No chest discomfort or any other concerning symptoms. Blood pressure control is good. He has permanent atrial fibrillation. 04/10/2023: He returns for follow-up. He is denying any significant symptoms. He is on supplemental oxygen and has been using oxygen more frequently. He has been more sedentary. His blood pressure and heart rate both were elevated in the office. He is taking his medications as before and has not missed his medications. He is complaining of some fatigue too. He said that he has not been exercising but plans to restart pulmonary rehabilitation. His repeat blood pressure was 140/80 manually. His heart rate was still in low 100s after resting. He is saying at home he has checked his heart rate before and was anywhere from 60-80. 08/14/23: He is here for follow-up. He underwent endovascular repair of abdominal aortic aneurysm successfully. He has been doing well since then. He is noticed some lower extremity edema right more than left. He is on diltiazem. He is on digoxin and the apixaban for anticoagulation. He is saying that his breathing has been worse than before specially since winter he has not exercise much. He was previously doing cardiac rehabilitation and will be restarting it. 10/31/2023: He is here for follow-up. He is status post endovascular repair of abdominal aortic aneurysm. He has been more sedentary and gets out of breath walking 10 ft at this stage. No chest discomfort. Blood pressure is well controlled. Heart rate is also well controlled in atrial fibrillation. [facility] Medical History Supplemental oxygen dependent ILD (interstitial lung disease) COPD (chronic obstructive pulmonary disease) Tubular adenoma of colon (~2022) Postoperative hypothyroidism Obesity (BMI 30-39.9) Atrial fibrillation Chest discomfort Bronchitis Hemoptysis HOLLOWAY (dyspnea on exertion) Abnormal SPEP Multinodular thyroid Swelling of left lower extremity Pulmonary nodules/lesions, multiple Ground glass opacity present on imaging of lung Wedge compression fracture of T9 vertebra (~2018) Coronary artery disease Hypertension Right renal stone Thyroid nodule Vitamin D deficiency Ascending aorta dilatation Obesity (BMI 30-39.9) Psoriasis Hypercholesterolemia Former smoker Stable angina Surgical History Status post AAA (abdominal aortic aneurysm) repair Hx of bilateral cataract extraction (~2022) History of partial thyroidectomy (~2020) History of heart artery stent (~2019) History of colonoscopy History of cardioversion (~2020) History of appendectomy History of tonsillectomy History of lung biopsy (~2016) Family History Father Heart disease Mother Throat cancer Paternal Grandfather Heart disease Social History Household Members: Spouse Housing: Unknown / Unable to assess Are you a primary medication care manager to a significant other at home: No Do you presently have visiting nurse or other home services: No Alcohol intake: former Year quit: 2014 Patient Tobacco Use Status: Former Tobacco user Tobacco use type: Cigarette Years Smoked: 50 e-Cigarette/Vaping Use: Former Use Second Hand Smoke Exposure: No Advance Directives Date on File: 09/21/20 service: Yes Current occupational status: retired Cognitive needs: No Hearing needs: No Vision needs: Yes Review of Systems Const Denies chills, Denies fatigue, Denies fever(s), Denies frequent falls, Denies weakness, Denies weight gain and Denies weight loss ENT Denies dizziness Card Denies chest pain, Denies leg edema, Denies lightheadedness, Denies palpitations, Denies dyspnea and Denies dyspnea on exertion Resp Denies cough, Denies dyspnea and Denies dyspnea on exertion GI Denies hematochezia Musc Denies abnormal gait, Denies muscle weakness, Denies numbness, Denies radiating pain into limb and Denies tingling Neuro Denies abnormal gait, Denies dizziness, Denies frequent falls, Denies numbness, Denies tingling and Denies weakness Endo Denies fatigue and Denies palpitations Physical Exam Vital Signs: Last Vital Signs Pulse 68 10/31/23 13:59 BP 110/60 10/31/23 13:59 BMI result Body Mass Index 32.4 GENERAL APPEARANCE: in no acute distress, pleasant. NECK: no carotid bruit, no jugular venous distention. SKIN: no suspicious lesions, warm and dry. HEART: no murmurs, irregular rate and rhythm. LUNGS: Clear to auscultation. ABDOMEN: soft, nontender. EXTREMITIES: Mild edema. PERIPHERAL PULSES: equal. NEUROLOGIC: No gross deficits, AAO X 3 Assessment & Plan Assessment & Plan (1) Hypertension: Code(s): I10 - Essential (primary) hypertension Category: Medical Qualifiers: Hypertension type: essential hypertension Qualified Code(s): I10 - Essential (primary) hypertension (2) Hypercholesterolemia: Code(s): E78.00 - Pure hypercholesterolemia, unspecified Category: Medical (3) Stable angina: Code(s): I20.8 - Other forms of angina pectoris Category: Medical Plan Pleasant 77 year gentleman is here for follow-up. He is background history of coronary artery disease with previous PCI to right coronary artery. He also has COPD and atrial fibrillation. We cardioverted him in the past but he did not have any significant change in his dyspnea and since then he has been treated with rate control strategy. He is on digoxin and diltiazem. He is some peripheral edema which could be related to diltiazem and he is taking furosemide 20 mg daily. He is complaining of some dyspnea which I feel is due to deconditioning. He is slowed down significantly. I have advised him to start exercising regularly. He is saying he can not walk outside with the oxygen tank and I have advised him to get a gym membership or stationary bike to exercise at home. He can also use light weights to do exercises. Follow-up in few months. Thank you for allowing me to participate in the care of your patient. Please feel free to contact me if you have any questions. Coding Level of Care Code Est Pt Level 4 (11989) Diagnoses Essential hypertension I10 Hypertension type: essential hypertension Hypercholesterolemia E78.00 Stable angina I20.8
== END 2023-10-31 14:31 | disposition home or self-care (01) ==
PROVIDERS: PCP Internal Medicine; Visit Provider Internal Medicine Cardiovascular Disease
DX: I10 Essential (primary) hypertension (principal); E78.00 Pure hypercholesterolemia, unspecified; I20.89 Other forms of angina pectoris
CPT/HCPCS: 99214

== ENCOUNTER → 2023-10-31 13:32 | Outpatient (BNVA) | payer MEDICARE, SELFPAY | PROVIDERS: PCP Internal Medicine; Visit Provider Internal Medicine Cardiovascular Disease | DX: I10 Essential (primary) hypertension (principal); I20.89 Other forms of angina pectoris; E78.00 Pure hypercholesterolemia, unspecified | CPT/HCPCS: 99212 ==

== ENCOUNTER 2023-11-03 15:32 | Emergency (ER) | payer MEDICARE, SELFPAY ==
[2023-11-03 16:16] VITALS: BP 117/69; PULSE 101; RESP 20; TEMP 36.3; O2SAT 94; BMI 31.9
--- NOTE | 2023-11-03 16:18 | ED.GENADULT ---
HPI - General Adult General Chief complaint: Skin/Abscess/Foreign Body Stated complaint: bit his tongue/on blood thinners Time Seen by Provider: 11/03/23 16:42 Source: patient and family Mode of arrival: ambulatory Limitations: no limitations History of Present Illness ED Provider: Yoav HPI narrative: Patient is a 77-year-old male with history of AFib on Eliquis, also on Plavix, T2 DM, AAA, aortic stenosis, COPD and interstitial lung disease on chronic oxygen, HTN presenting to the emergency department with complaint of bleeding from tongue. States that he accidentally bit his tongue around 230 this afternoon been unable to control the bleeding since. Denies any pain to the area. Denies any dizziness or lightheadedness. Denies any other injuries or concerns. MD complaint: tongue bleeding Onset (ago): hour(s) Location: mouth Associated symptoms: denies other symptoms Treatments prior to arrival: other (direct pressure) Related Data Home Medications ?Medication ?Instructions ?Recorded ?Confirmed adalimumab 40 mg/0.4 mL 40 mg subcut Q2W 10/10/22 10/31/23 subcutaneous pen kit (Humira(CF) Pen) Previous Rx's ?Medication ?Instructions ?Recorded OXYGEN 2 L NC keep sats > 90 #1 ea 02/12/22 PORTABLE OXYGEN TANK #1 ea 02/22/22 compress.stocking,knee,reg,med #2 ea 04/10/22 diltiazem HCl 300 mg 300 mg PO DAILY #90 caps 04/08/23 capsule,extended release 24 hr clopidogrel 75 mg tablet 75 mg PO DAILY #90 tabs 05/01/23 apixaban 5 mg tablet (Eliquis) 5 mg PO BID #60 tabs 05/06/23 cyanocobalamin (vitamin B-12) 1,000 mcg PO DAILY #90 tabs 05/26/23 1,000 mcg tablet (Vitamin B-12) cholecalciferol (vitamin D3) 50 50 mcg PO DAILY #90 caps 06/07/23 mcg (2,000 unit) capsule digoxin 125 mcg (0.125 mg) tablet 125 mcg PO MOWEFR 90 days #39 tabs 07/11/23 furosemide 20 mg tablet (Lasix) 20 mg PO DAILY #90 tabs 07/11/23 metoprolol tartrate 25 mg tablet 75 mg (3 x 25 mg) PO BID 90 days 07/11/23 #540 tabs levothyroxine 50 mcg tablet 50 mcg PO QAM #90 tabs 09/19/23 atorvastatin 80 mg tablet 80 mg PO BEDTIME #90 tabs 10/05/23 terazosin 5 mg capsule 5 mg PO BEDTIME 30 days #30 caps 10/09/23 budesonide 160 mcg-glycopyr 9 2 inh inhalation BID #10.7 grams 10/29/23 mcg-formot 4.8 mcg/actuation HFA inhaler (Breztri Aerosphere) Allergies Allergy/AdvReac Type Severity Reaction Status Date / Time Penicillins Allergy Severe Anaphylaxis Verified 11/03/23 16:17 hydrochlorothiazide Allergy Unknown Unknown Verified 11/03/23 16:17 lisinopril Allergy Unknown Unknown Verified 11/03/23 16:17 regadenoson [From Lexiscan] AdvReac Bradycardic Verified 11/03/23 16:17 Review of Systems Review of Systems: As per HPI. Yes all other systems are reviewed and are negative Constitutional: Constitutional: Reports as per HPI [facility] Past Medical History Medical History Supplemental oxygen dependent ILD (interstitial lung disease) COPD (chronic obstructive pulmonary disease) Tubular adenoma of colon (~2021) Postoperative hypothyroidism Obesity (BMI 30-39.9) Atrial fibrillation Chest discomfort Bronchitis Hemoptysis HOLLOWAY (dyspnea on exertion) Abnormal SPEP Multinodular thyroid Swelling of left lower extremity Pulmonary nodules/lesions, multiple Ground glass opacity present on imaging of lung Wedge compression fracture of T9 vertebra (~2018) Coronary artery disease Hypertension Right renal stone Thyroid nodule Vitamin D deficiency Ascending aorta dilatation Obesity (BMI 30-39.9) Psoriasis Hypercholesterolemia Former smoker Stable angina Surgical History Status post AAA (abdominal aortic aneurysm) repair Hx of bilateral cataract extraction (~2022) History of partial thyroidectomy (~2020) History of heart artery stent (~2019) History of colonoscopy History of cardioversion (~2020) History of appendectomy History of tonsillectomy History of lung biopsy (~2016) Family History Family History Father Heart disease Mother Throat cancer Paternal Grandfather Heart disease Social History Social History Household Members: Spouse Housing: Unknown / Unable to assess Are you a primary patient centered care specialist to a significant other at home: No Do you presently have visiting nurse or other home services: No Alcohol intake: former Year quit: 2014 Patient Tobacco Use Status: Former Tobacco user Tobacco use type: Cigarette Years Smoked: 50 e-Cigarette/Vaping Use: Former Use Second Hand Smoke Exposure: No Advance Directives: No Advance Directives Information Provided: No Advance Directives Date on File: 09/21/20 service: Yes Current occupational status: retired Cognitive needs: No Hearing needs: No Vision needs: Yes Physical Exam ED Vital Signs: Vital Signs - 24 hr 11/03/23 16:16 11/03/23 16:50 11/03/23 18:27 Temperature 97.3 F 97.7 F 97.7 F Pulse Rate 101 H 93 93 Respiratory Rate 20 19 19 Blood Pressure 117/69 147/71 H 147/71 H Pulse Oximetry 94 96 96 Oxygen Delivery Method Nasal Cannula Nasal Cannula Nasal Cannula Oxygen Flow Rate 2 2 BMI result Body Mass Index 31.9 Vital signs have been reviewed and appear to be correct. Blood pressure normal. Heart rate normal. Respiratory rate normal. Temperature normal. Oxygen saturation normal. Const General: cooperative, healthy appearing and no acute distress Orientation/consciousness: oriented to person, oriented to place, oriented to time and patient oriented x3 Limitations: no limitations HENMT Head: Yes normocephalic and Yes atraumatic Ears: external ears normal General nose exam: Normal external nose present Face and sinus: Yes face symmetric Mouth: oropharynx normal and moist mucous membranes Mouth/tongue images: 1. 1mm area of active bleeding Throat: Yes uvula midline Eyes Pupils: Equal, round and reactive pupils present Neck Neck: Yes normal visual inspection and Yes supple Resp Effort & Inspection: normal respiratory effort and able to speak in complete sentences Auscultation: clear to auscultation bilaterally Cardio Rate: regular rate Rhythm: regular rhythm Heart sounds: S1 normal heart sound present and S2 normal heart sound present GI Palpation (GI): Soft to palpation and nontender Auscultation: normoactive bowel sounds General: Yes no CVA tenderness Back/Spine/Pelvis Back: no CVA tenderness Skin General skin exam: elasticity normal and turgor normal Neuro General: oriented to person, oriented to place, oriented to time, patient oriented x3, moves all extremities, no focal motor deficits and CN's II-XI intact bilaterally Cranial nerves: Yes Equal, round and reactive pupils present Cognition (Neuro): normal cognition Extrem General: Yes full ROM, Yes no pedal edema and Yes no calf tenderness Psych Mental Status: mental status grossly normal Affect: normal affect Thought process: Normal thought process present Course Course Course Narrative: RME: Done by RAYNE Burrows. 77-year-old male on blood thinners presents to ED for bleeding from tongue after biting tongue. Patient is on blood thinners tongue would not stop bleeding. For small area of cut out the bleeding. Patient states body aches tongue while eating food. Patient denied any blunt trauma. Medications Administered Discontinued Medications Generic Name Dose Route Start Last Admin Trade Name Freq PRN Reason Stop Dose Admin Tranexamic Acid 1,000 mg 11/03/23 17:00 11/03/23 17:05 Tranexamic Acid 1,000 Mg/10 Ml Vial IRRIGATION 11/03/23 17:01 1,000 mg ONCE ONE Administration Medical Decision Making Medical Decision Making [facility] Narrative: Patient is a 77-year-old male with history of AFib on Eliquis, also on Plavix, T2 DM, AAA, aortic stenosis, COPD and interstitial lung disease on chronic oxygen, HTN presenting to the emergency department with complaint of bleeding from tongue. On exam patient is awake, A+Ox3, VS WNL, afebrile, normal neurological exam without focal deficits, physical exam findings as above. Given reported symptoms and physical exam findings, initial differential includes tongue laceration, tongue hemorrhage. TXA applied to gauze and held on tongue, bleeding controlled after this treatment. Patient feels comfortable returning home, states he will not be eating any more today. Advised him to use caution while drinking beverages and brushing his teeth. Discussed with patient that if bleeding reoccurs, he should apply ice and gauze to his tongue to control the bleeding and if he is unable to control the bleeding, to return to the emergency department. Follow-up with primary care provider. Return precautions discussed at bedside. Patient verbalized understanding of and agreement with plan. Differential Diagnosis Differential Diagnoses: The differential diagnosis associated with the presentation includes As per MDM. External Record Review External record reviewed: Inpatient record, Office record and Outpatient record Discharge Plan Discharge Clinical Impression: Hemorrhage of tongue Patient Disposition: Home, Self-Care Additional Instructions: You were evaluated in the emergency department tonight for bleeding from your tongue. The bleeding was controlled with medication in the emergency department. If the bleeding should reoccur, apply ice and gauze to the area until the bleeding stops. If you are unable to control the bleeding, you should return to the emergency department. Follow up with your primary care provider. Prescriptions: No Action (DME) OXYGEN 2 L NC keep sats > 90 See Rx Instructions .Route .MEDSUPPLY Qty: 1 0RF Rx Instructions: As directed (DME) PORTABLE OXYGEN TANK See Rx Instructions .Route .MEDSUPPLY Qty: 1 0RF Rx Instructions: As directed diltiazem HCl 300 mg capsule,extended release 24hr 300 mg PO DAILY Qty: 90 3RF clopidogrel 75 mg tablet 75 mg PO DAILY Qty: 90 3RF Eliquis 5 mg tablet 5 mg PO BID Qty: 60 7RF cyanocobalamin (vitamin B-12) [Vitamin B-12] 1,000 mcg tablet 1,000 mcg PO DAILY Qty: 90 3RF cholecalciferol (vitamin D3) 50 mcg (2,000 unit) capsule 50 mcg PO DAILY Qty: 90 3RF digoxin 125 mcg (0.125 mg) tablet 125 mcg PO MOWEFR 90 Days Qty: 39 3RF furosemide [Lasix] 20 mg tablet 20 mg PO DAILY Qty: 90 3RF metoprolol tartrate 25 mg tablet 75 mg PO BID 90 Days Qty: 540 3RF levothyroxine 50 mcg tablet 50 mcg PO QAM Qty: 90 1RF atorvastatin 80 mg tablet 80 mg PO BEDTIME Qty: 90 2RF (DME) compress.stocking,knee,reg,med Misc See Rx Instructions .Route Qty: 2 0RF Rx Instructions: As directed 20-30 mm HG Humira(CF) Pen 40 mg/0.4 mL pen injector kit 40 mg subcut Q2W terazosin 5 mg capsule 5 mg PO BEDTIME 30 Days Qty: 30 2RF Breztri Aerosphere 160-9-4.8 mcg/actuation HFA aerosol inhaler 2 inh inhalation BID Qty: 10.7 6RF Interventions: ED Discharge Assessment Last Done: 11/03/23 18:27 Discharge Date/Time: 11/03/23 18:28 Print Language: Czech
[2023-11-03 16:50] VITALS: BP 147/71; PULSE 93; RESP 19; TEMP 36.5; O2SAT 96
[2023-11-03] MEDS: Tranexamic Acid 1,000 MG/10 ML VIAL 1000 MG IRRIGATION (17:05)
[2023-11-03 18:27] VITALS: BP 147/71; PULSE 93; RESP 19; TEMP 36.5; O2SAT 96
== END 2023-11-03 18:28 | disposition home or self-care (01) ==
PROVIDERS: Emergency Provider Internal Medicine; PCP Internal Medicine
DX: K14.8 Other diseases of tongue (principal); I48.91 Unspecified atrial fibrillation; Z79.01 Long term (current) use of anticoagulants
CPT/HCPCS: 99281; 99283

== ENCOUNTER 2023-11-03 19:35 | Emergency (ER) | payer MEDICARE, SELFPAY ==
[2023-11-03 19:48] VITALS: BP 133/91; PULSE 110; RESP 20; TEMP 36.4; O2SAT 92; BMI 32.4
--- NOTE | 2023-11-03 21:40 | PC.NURSE ---
Pt was brought back to 19 and stated they wanted to leave now since the bleeding has again stopped.
== END 2023-11-03 21:42 | disposition left against medical advice (07) ==
PROVIDERS: Emergency Provider Emergency Medicine; PCP Internal Medicine
DX: K14.6 Glossodynia (principal)
CPT/HCPCS: 99281

== ENCOUNTER 2023-11-10 06:39 | Inpatient (IN) | payer MEDICARE, SELFPAY ==
[2023-11-10] VITALS (9 sets, daily range): BP systolic 92–142; BP diastolic 46–97; PULSE 59–78; RESP 8–26; TEMP 36.3–36.9; O2SAT 93–97; BMI 32.0
--- NOTE | ~2023-11-10 | XR_ITS ---
EXAMINATION: XR CHEST CLINICAL INFORMATION: Shortness of breath. COMPARISON: Multiple priors, most recent CT chest dated 06/20/2023. TECHNIQUE: 2 views of the chest were obtained. FINDINGS: Small right-sided pleural effusion with mild adjacent atelectasis versus infiltrates, slightly increased when compared to the prior chest radiograph. Mild patchy bilateral perihilar opacities. No left-sided pleural effusion. No pneumothorax. Stable cardiomediastinal silhouette. XR/XR chest 2V IMPRESSION: 1. Small right-sided pleural effusion with mild adjacent atelectasis versus infiltrates, slightly increased when compared to the prior chest radiograph. 2. Mild patchy bilateral perihilar opacities.
--- NOTE | 2023-11-10 06:46 | ECG_ITS ---
Test Reason : DYSPNEA Blood Pressure : / mmHG Vent. Rate : 071 BPM Atrial Rate : 000 BPM P-R Int : 000 ms QRS Dur : 092 ms QT Int : 380 ms P-R-T Axes : 000 007 042 degrees QTc Int : 412 ms Atrial fibrillation Abnormal ECG When compared with ECG of 18-NOV-2022 08:48, No significant change was found Referred By: Generic ED Physician Electronically Signed By:MIAH FERMIN MD
--- NOTE | 2023-11-10 06:53 | PC.NURSE ---
no patient contact, patient immediately to xray upon entering room, delay in EKG
--- NOTE | 2023-11-10 06:55 | ED_ITS ---
HPI - SOB/Dyspnea General Chief Complaint: Dyspnea Stated Complaint: SOB Time Seen by Provider: 11/10/23 06:49 Source: patient and family Mode of arrival: ambulatory Limitations: no limitations History of Present Illness ED Provider: Herminio Teague PA-C HPI Narrative: 77-year-old male with a PMHx significant for atrial fibrillation on Eliquis, chronic obstructive pulmonary disease requiring 2L O2 via NC, interstitial lung disease, HTN, HLD, and coronary artery disease presented to the emergency department complaining of acute onset shortness of breath over the past day. He reports difficulty sleeping due to worsening dyspnea when lying down. The dyspnea is exacerbated with exertion but tolerable at rest. He also reports chest pain that has been constant since this morning. He describes sternal chest heaviness and discomfort. It is not radiating elsewhere. He noted occasional dysuria and increased urinary urgency at night, believes it is possibly related to diuretic use before going to bed. He denies headache, vision changes, cough, palpitations, nausea, vomiting, diarrhea, abdominal pain, fever, and chills. MD elicited complaint: shortness of breath Pertinent past history: COPD and congestive heart failure Onset (ago): day(s) (1) Timing: constant Severity: moderate Exacerbating factors: lying flat and exertion Relieving factors: oxygen, rest and upright position Known history of: COPD and congestive heart failure Associated symptoms: chest pain, cough and orthopnea Treatment prior to arrival: oxygen Related Data Home oxygen amount: 2 liters Home Medications ?Medication ?Instructions ?Recorded ?Confirmed adalimumab 40 mg/0.4 mL 40 mg subcut Q2W 10/10/22 10/31/23 subcutaneous pen kit (Humira(CF) Pen) Previous Rx's ?Medication ?Instructions ?Recorded OXYGEN 2 L NC keep sats > 90 #1 ea 02/12/22 PORTABLE OXYGEN TANK #1 ea 02/22/22 compress.stocking,knee,reg,med #2 ea 04/10/22 diltiazem HCl 300 mg 300 mg PO DAILY #90 caps 04/08/23 capsule,extended release 24 hr clopidogrel 75 mg tablet 75 mg PO DAILY #90 tabs 05/01/23 apixaban 5 mg tablet (Eliquis) 5 mg PO BID #60 tabs 05/06/23 cyanocobalamin (vitamin B-12) 1,000 mcg PO DAILY #90 tabs 05/26/23 1,000 mcg tablet (Vitamin B-12) cholecalciferol (vitamin D3) 50 50 mcg PO DAILY #90 caps 06/07/23 mcg (2,000 unit) capsule digoxin 125 mcg (0.125 mg) tablet 125 mcg PO MOWEFR 90 days #39 tabs 07/11/23 furosemide 20 mg tablet (Lasix) 20 mg PO DAILY #90 tabs 07/11/23 metoprolol tartrate 25 mg tablet 75 mg (3 x 25 mg) PO BID 90 days 07/11/23 #540 tabs levothyroxine 50 mcg tablet 50 mcg PO QAM #90 tabs 09/19/23 atorvastatin 80 mg tablet 80 mg PO BEDTIME #90 tabs 10/05/23 terazosin 5 mg capsule 5 mg PO BEDTIME 30 days #30 caps 10/09/23 budesonide 160 mcg-glycopyr 9 2 inh inhalation BID #10.7 grams 10/29/23 mcg-formot 4.8 mcg/actuation HFA inhaler (Breztri Aerosphere) Allergies Allergy/AdvReac Type Severity Reaction Status Date / Time Penicillins Allergy Severe Anaphylaxis Verified 11/10/23 06:45 hydrochlorothiazide Allergy Unknown Unknown Verified 11/10/23 06:45 lisinopril Allergy Unknown Unknown Verified 11/10/23 06:45 regadenoson [From Lexiscan] AdvReac Bradycardic Verified 11/10/23 06:45 Review of Systems 2 Constitutional: Constitutional: Reports as per HPI Eyes: Eyes: Reports as per HPI ENT: Reports as per HPI Cardiovascular: Cardiovascular: Reports as per HPI Respiratory: Respiratory: Reports as per HPI Gastrointestinal: Gastrointestinal: Reports as per HPI Genitourinary: Genitourinary: Reports as per HPI Musculoskeletal: Musculoskeletal: Reports as per HPI Integumentary/Breasts: Skin/Breast: Reports as per HPI Neurologic: Reports as per HPI Psychiatric: Psychiatric: Reports as per HPI Endocrine: Endocrine: Reports as per HPI Hematologic/Lymphatic: Hematologic/Lymphatic: Reports as per HPI Allergic/Immunologic: Allergic/Immunologic: Reports as per HPI FORMERLY [facility] Past Medical History Medical History Supplemental oxygen dependent ILD (interstitial lung disease) COPD (chronic obstructive pulmonary disease) Tubular adenoma of colon (~2021) Postoperative hypothyroidism Obesity (BMI 30-39.9) Atrial fibrillation Chest discomfort Bronchitis Hemoptysis HOLLOWAY (dyspnea on exertion) Abnormal SPEP Multinodular thyroid Swelling of left lower extremity Pulmonary nodules/lesions, multiple Ground glass opacity present on imaging of lung Wedge compression fracture of T9 vertebra (~2018) Coronary artery disease Hypertension Right renal stone Thyroid nodule Vitamin D deficiency Ascending aorta dilatation Obesity (BMI 30-39.9) Psoriasis Hypercholesterolemia Former smoker Stable angina Surgical History Status post AAA (abdominal aortic aneurysm) repair Hx of bilateral cataract extraction (~2022) History of partial thyroidectomy (~2020) History of heart artery stent (~2019) History of colonoscopy History of cardioversion (~2020) History of appendectomy History of tonsillectomy History of lung biopsy (~2016) Family History Family History Father Heart disease Mother Throat cancer Paternal Grandfather Heart disease Social History Social History Household Members: Spouse Housing: Unknown / Unable to assess Are you a primary child care center assistant director to a significant other at home: No Do you presently have visiting nurse or other home services: No Alcohol intake: former Year quit: 2014 Patient Tobacco Use Status: Former Tobacco user Tobacco use type: Cigarette Years Smoked: 50 e-Cigarette/Vaping Use: Former Use Second Hand Smoke Exposure: No Use of substances other than those prescribed or required for medical reasons: No Advance Directives: No Advance Directives Information Provided: Yes Advance Directives Date on File: 09/21/20 Do you have a plan to hurt others: No Plan service: Yes Current occupational status: retired Cognitive needs: No Hearing needs: No Vision needs: Yes Physical Exam 2 Vital Signs: Vital Signs: Last Vital Signs Temp 97.4 F 11/10/23 06:44 Pulse 71 11/10/23 07:34 Resp 26 H 11/10/23 07:34 BP 141/78 H 11/10/23 08:11 Pulse Ox 95 11/10/23 06:44 O2 Del Method Nasal Cannula 11/10/23 06:44 BMI result Body Mass Index 32.0 Appearance: Alert. Oriented X3. Mild acute distress. Head: normocephalic, atraumatic. Eyes: Pupils equal, round and reactive to light. ENT: Pharynx normal. No tonsillar swelling or exudate. Neck: Normal inspection. Neck supple. CVS: irregularly irregular, regular rate Pulses normal. Respiratory: Mild respiratory distress w/ increased RR. diminished lung sounds throughout without rhonchi, crackles, or wheezing. Labored breathing when speaking Abdomen: Obese, soft and nontender. +BS x4 Skin: Skin warm and dry. Normal skin color. Normal skin turgor. No rashes. Extremities: 1+ lower extremity edema with bilateral, erythema, warmth to touch, no joint swelling Neuro/psych: Oriented X 3. No motor deficit. No sensory deficit. CN II-XII intact. Normal speech and cognition. Course Reevaluation(s) Reevaluation #1: After nebulizer patient reports minimal relief. He has increased aeration on examination with new rales at the bases bilaterally. He has a known pleural effusion which was seen on recent CT scan in the beginning of the month as getting larger, now moderate. Chest x-ray today showed associated atelectasis versus infiltrates with perihilar opacities as well. He is not febrile, does not have any leukocytosis. No signs of sepsis at this time. No IV fluids given his CHF, elevated BNP. Will give 1 dose of Rocephin and azithromycin for possible infectious etiology of the opacities. 40 mg of IV Lasix ordered for diuresis. Her nursing patient stood up to try to urinate and was having respiratory distress, increased work of breathing, hypoxic to 87% on his baseline 2 L nasal cannula. He was placed back in bed with attempts to use the urinal. Time: 08:52 Reevaluation #2: Patient required straight catheterization for urinary retention. He retained again, will place Miller catheter for strict I's and O's and acute urinary retention. No signs of UTI at this time. New anemia noted, guaiac negative. No signs of acute GI bleeding. Will hold off on transfusion for now. Your blood counts closely. Will admit the patient for further management Time: 09:53 Medications Administered Generic Name Dose Route Start Last Admin Trade Name Freq PRN Reason Stop Dose Admin Azithromycin 500 mg/ Sodium 250 mls @ 125 mls/hr 11/10/23 08:30 11/10/23 08:48 Chloride IV 11/10/23 10:29 125 mls/hr ONCE ONE Administration Discontinued Medications Generic Name Dose Route Start Last Admin Trade Name Jacobo PRN Reason Stop Dose Admin Albuterol Sulfate 2.5 mg/ 0 mg 11/10/23 07:17 11/10/23 07:22 Albuterol/Ipratropium 3 ml INHALE 11/10/23 07:18 5 dose ONCE ONE Administration Furosemide 40 mg 11/10/23 08:01 11/10/23 08:11 Furosemide 40 Mg/4 Ml Vial IVPUSH 11/10/23 08:02 40 mg STAT STA Administration Protocol Ceftriaxone Sodium 1 gm/ 50 mls @ 100 mls/hr 11/10/23 08:30 11/10/23 09:46 Sodium Chloride IV 11/10/23 08:59 Infused ONCE ONE Infusion Medical Decision Making Medical Decision Making [facility] Narrative: 77-year-old male with a PMHx significant for atrial fibrillation managed with Eliquis, chronic obstructive pulmonary disease requiring 2L O2 via NC, interstitial lung disease, HTN, HLD, and coronary artery disease presented to the emergency department complaining of acute onset shortness of breath over the past day and sternal chest hevainess and discomfort . On examination, his BP is 122/47 mmHg, and oxygen saturation is 88% on 2L of oxygen via nasal cannula. He was alert and oriented x3, able to speak in complete sentences with labored breathing. Respiratory examination revealed diffuse diminished lung sounds without rhonchi, crackles, or wheezing. The remainder of the physical examination was unremarkable. Laboratory findings showed anemia with a red blood cell count of 2.54, hemoglobin of 7.6 g/dL, hematocrit of 25%, and a platelet count of 159. He denies hematuria and melena, with negative findings on digital rectal examination for fecal occult blood. His last colonoscopy revealed no abnormalities, and remaining labs were within normal limits except for a BUN of 23. He denies any recent falls. He has no abdominal pain. No flank ecchymosis on exam. Low suspicion for RP bleed. Hold off on CT scan of the abdomen for now. We discussed the need for possible blood transfusion and he would like to defer for now. Given there is no signs of active bleeding and he is hemodynamically stable will hold off on blood transfusion for now. Serology was negative for influenza A/B, RSV, and SARS-CoV-2. U/A is negative. A chest x-ray demonstrated a small right-sided pleural effusion with mild adjacent atelectasis or infiltrates, slightly increased compared to a prior study, and mild patchy bilateral perihilar opacities. His BNP level is 600 pg/mL which is up from prior. Given these findings, there is concern for CHF exacerbation and pleural effusion. IV lasix Miller. required miller for urinary retention. Unlikely, AAA the patient is hemodynamically stable and in no acute distress. Albuterol sulfate given with minimal relief. My plan is to admit the patient for further management. The plan was discussed with patient and his at bedside, agree to plan and have clear understanding. Differential Diagnosis Differential Diagnoses: The differential diagnosis associated with the presentation includes COPD exacerbation, acute CHF exacerbation, pleural effusion, upper GI bleed, acute blood loss, RP bleed, anemia of chronic disease, B12 deficiency, hemolytic anemia, low suspicion for MD, pulmonary embolism, AAA Admission/Observation Consideration of admission/observation: Escalation of care including admission/observation considered Consult Healthcare Provider Management of the patient was discussed with: Hospitalist Lab Data MDM Lab Attestation statement: I reviewed the patient's lab results. Worsening macrocytic anemia, stable thrombocytopenia, worsening BNP from prior, stable renal function 11/10/23 07:06 11/10/23 07:06 Labs: Lab Results 11/10/23 11/10/23 11/10/23 Range/Units 07:06 07:07 07:49 WBC 6.1 (4.8-10.8) X10*3/uL RBC 2.54 L (4.60-5.80) X10*6/uL Hgb 7.6 L D (14.0-18.0) g/dl Hct 25.0 L D (42.0-52.0) % MCV 98.4 H (80.0-98.0) fL MCH 29.9 (27.0-33.0) pg MCHC 30.4 L (31.0-36.0) g/dl RDW 16.0 (11.0-16.0) % Plt Count 159 L (160-400) X10*3/uL MPV 10.2 (9.4-12.4) fL Immature Gran % (Auto) 0.3 (0.0-0.4) % Neut % (Auto) 79.7 H (45-73) % Lymph % (Auto) 9.8 L (20-40) % [place] % (Auto) 9.0 (2-11) % Eos % (Auto) 1.0 (0-4) % Baso % (Auto) 0.2 (0-2) % Lymph # (Auto) 0.6 L (1.2-4.9) X10*3/uL [place] # (Auto) 0.6 (0.1-1.2) X10*3/uL Eos # (Auto) 0.1 (0.0-0.4) X10*3/uL Baso # (Auto) 0.0 (0.0-0.2) X10*3/uL Abs Immat Gran (auto) 0.02 (0.00-0.03) X10*3/uL Absolute Neuts (auto) 4.9 (2.0-8.3) x10*3/uL Absolute Nucleated RBC 0.000 (0.0-0.012) X10*3/uL Nucleated RBC % (auto) 0.0 (0.0-0.2) /100WBC Absolute Retic 0.057 (0.026-0.095) X10*6/uL Percent Retic 2.3 H (0.5-1.8) % Immature Retic Fraction 26.8 H (2.3-13.4) % Retic Hgb Equivalent 24.3 L (30.0-35.0) pg PT 19.4 H D (11.1-13.3) SEC INR 1.6 H (0.9-1.1) Sodium 141 (135-145) mmol/L Potassium 3.9 (3.3-5.1) mmol/L Chloride 106 (96-108) mmol/L Carbon Dioxide 26 (22-29) mmol/L Anion Gap 13 (12-20) BUN 23 H (9-16) mg/dL Creatinine 0.88 (0.5-1.4) mg/dL Estim Creat Clear Calc 78.8 Estimated GFR > 60 Random Glucose 140 H (60-115) mg/dL Calcium 8.7 (8.4-10.2) mg/dL Iron 33 L (45-160) mcg/dL TIBC 346 (228-428) mcg/dL % Saturation 10 L (15-50) % Unsat Iron Binding 313 ug/dL Total Bilirubin 0.7 (0.0-1.0) mg/dL AST 14 (5-37) U/L ALT 12 (0-40) U/L Alkaline Phosphatase 123 H (39-117) U/L Troponin I High Sens 3.3 D (<3.5-35.0) ng/L B-Natriuretic Peptide 614 H (<100) pg/mL Total Protein 6.9 (6.5-8.0) g/dL Albumin 3.8 (3.5-5.0) g/dL Urine Color Urine Appearance Urine pH (5.0-9.0) Ur Specific [place] (1.005-1.025) Urine Protein (Neg-Trace) mg/dL Urine Glucose (UA) (Negative) mg/dL Urine Ketones (Negative) mg/dL Urine Blood (Negative) Urine Nitrite (Negative) Ur Leukocyte Esterase (Negative) Urine RBC (0-2) /HPF Urine WBC (0-5) /HPF Ur Squamous Epith Cells (0-2) /HPF Urine Bacteria (None Seen) Hyaline Casts (0-2) /LPF Stool Occult Blood (NEGATIVE) Influenza Type A (PCR) NEGATIVE (Negative) Influenza Type B (PCR) NEGATIVE (Negative) RSV RNA Qual (PCR) NEGATIVE (Negative) SARS-CoV-2 RNA (RT-PCR) NEGATIVE (Negative) Blood Type O Positive Antibody Screen NEGATIVE 11/10/23 Range/Units 08:45 WBC (4.8-10.8) X10*3/uL RBC (4.60-5.80) X10*6/uL Hgb (14.0-18.0) g/dl Hct (42.0-52.0) % MCV (80.0-98.0) fL MCH (27.0-33.0) pg MCHC (31.0-36.0) g/dl RDW (11.0-16.0) % Plt Count (160-400) X10*3/uL MPV (9.4-12.4) fL Immature Gran % (Auto) (0.0-0.4) % Neut % (Auto) (45-73) % Lymph % (Auto) (20-40) % [place] % (Auto) (2-11) % Eos % (Auto) (0-4) % Baso % (Auto) (0-2) % Lymph # (Auto) (1.2-4.9) X10*3/uL [place] # (Auto) (0.1-1.2) X10*3/uL Eos # (Auto) (0.0-0.4) X10*3/uL Baso # (Auto) (0.0-0.2) X10*3/uL Abs Immat Gran (auto) (0.00-0.03) X10*3/uL Absolute Neuts (auto) (2.0-8.3) x10*3/uL Absolute Nucleated RBC (0.0-0.012) X10*3/uL Nucleated RBC % (auto) (0.0-0.2) /100WBC Absolute Retic (0.026-0.095) X10*6/uL Percent Retic (0.5-1.8) % Immature Retic Fraction (2.3-13.4) % Retic Hgb Equivalent (30.0-35.0) pg PT (11.1-13.3) SEC INR (0.9-1.1) Sodium (135-145) mmol/L Potassium (3.3-5.1) mmol/L Chloride (96-108) mmol/L Carbon Dioxide (22-29) mmol/L Anion Gap (12-20) BUN (9-16) mg/dL Creatinine (0.5-1.4) mg/dL Estim Creat Clear Calc Estimated GFR Random Glucose (60-115) mg/dL Calcium (8.4-10.2) mg/dL Iron (45-160) mcg/dL TIBC (228-428) mcg/dL % Saturation (15-50) % Unsat Iron Binding ug/dL Total Bilirubin (0.0-1.0) mg/dL AST (5-37) U/L ALT (0-40) U/L Alkaline Phosphatase (39-117) U/L Troponin I High Sens (<3.5-35.0) ng/L B-Natriuretic Peptide (<100) pg/mL Total Protein (6.5-8.0) g/dL Albumin (3.5-5.0) g/dL Urine Color Yellow Urine Appearance Clear Urine pH 7.0 (5.0-9.0) Ur Specific [place] <= 1.005 (1.005-1.025) Urine Protein Negative (Neg-Trace) mg/dL Urine Glucose (UA) Negative (Negative) mg/dL Urine Ketones Negative (Negative) mg/dL Urine Blood Negative (Negative) Urine Nitrite Negative (Negative) Ur Leukocyte Esterase Trace H (Negative) Urine RBC 0-2 (0-2) /HPF Urine WBC 0-5 (0-5) /HPF Ur Squamous Epith Cells 0-2 (0-2) /HPF Urine Bacteria None Seen (None Seen) Hyaline Casts 0-2 (0-2) /LPF Stool Occult Blood NEGATIVE (NEGATIVE) Influenza Type A (PCR) (Negative) Influenza Type B (PCR) (Negative) RSV RNA Qual (PCR) (Negative) SARS-CoV-2 RNA (RT-PCR) (Negative) Blood Type Antibody Screen Independent Interpretation I performed an independent interpretation of an: EKG and Plain X-Ray Interpretation: EKG with AFib, rate controlled with heart rate 77, no ST segment elevations or depressions Chest x-ray with moderate right side pleural effusion, increased vascular congestion Radiology Impression Discussion of test interpretation with radiology: I have reviewed the radiologist's reading. Radiologist Impression: CLINICAL INFORMATION: Shortness of breath. COMPARISON: Multiple priors, most recent CT chest dated 06/20/2023. TECHNIQUE: 2 views of the chest were obtained. FINDINGS: Small right-sided pleural effusion with mild adjacent atelectasis versus infiltrates, slightly increased when compared to the prior chest radiograph. Mild patchy bilateral perihilar opacities. No left-sided pleural effusion. No pneumothorax. Stable cardiomediastinal silhouette. XR/XR chest 2V IMPRESSION: 1. Small right-sided pleural effusion with mild adjacent atelectasis versus infiltrates, slightly increased when compared to the prior chest radiograph. 2. Mild patchy bilateral perihilar opacities. Independent Historian Clinical information obtained from an independent historian. History obtained from or confirmed by: Spouse External Record Review External record reviewed: Inpatient record, Office record, Outpatient record, Prior outpatient labs and Prior outpatient radiology Tests considered The following testing was considered but not selected: CT scan of the abdomen pelvis were considered to assess her RP bleed however patient hemodynamically stable with no flank ecchymosis, no recent trauma or falls, deferred for now Prescription Management I considered prescription management with: Pain Medication and Antibiotic Chronic Conditions Patient?s care impacted by: Diabetes and Other (COPD, CHF) Critical Care Time Critical Care Time Critical Care Time: Yes Total Critical Care Time: 35 Attestation: I have personally provided critical care time exclusive of time spent on separately billable procedures. Time includes review of lab data, radiology results, discussion with consultants, and monitoring for potential decompensation. Intervention performed as documented. Discharge Plan Discharge Clinical Impression: Acute on chronic anemia, Pleural effusion, right, Acute urinary retention Acute CHF Qualifiers: Heart failure type: unspecified Qualified Code(s): I50.9 - Heart failure, unspecified Patient Disposition: Admitted As Inpatient Print Language: Citizen Of [place]
--- NOTE | 2023-11-10 07:16 | PC.NURSE ---
patient arrives through external triage, ambulatory with steady gait with chief complaint of shortness of breath that started last night that prevented him from sleeping, patient has hx of COPD and Afib and wears 2L at baseline at home, patient saturating well on 2L at 96%. denies chest pain or shortness of breath. patient denies any swelling to his abdomen or extremities, patient placed on location man controlled afib rate at this time. patient not offering any other complaints. 18 PIV placed in left wrist at this time by this RN, EKG completed by EDT, respiratory at bedside at this time. blood work and nasal swab sent to lab. awaiting further results at this time.
[2023-11-10 07:18] LABS: MANUAL DIFF FLAG NO
[2023-11-10 07:21] LABS: Basophils Percent Auto 0.2 % (0-2); Eosinophils Absolute Auto 0.1 X10*3/uL (0.0-0.4); Hemoglobin 7.6 g/dl (14.0-18.0); Imm Gran Abs Auto 0.02 X10*3/uL (0.00-0.03); Imm Gran Pct Auto 0.3 % (0.0-0.4); Lymphocytes Absolute Auto 0.6 X10*3/uL (1.2-4.9); Lymphocytes Percent Auto 9.8 % (20-40); Mean Corpuscular HGB Conc 30.4 g/dl (31.0-36.0); Mean Corpuscular Hemoglobin 29.9 pg (27.0-33.0); Mean Corpuscular Volume 98.4 fL (80.0-98.0); Mean Platelet Volume 10.2 fL (9.4-12.4); Monocytes Absolute Auto 0.6 X10*3/uL (0.1-1.2); Neutrophils Absolute Auto 4.9 x10*3/uL (2.0-8.3); Neutrophils Percent Auto 79.7 % (45-73); Platelet Count 159 X10*3/uL (160-400); Red Blood Count 2.54 X10*6/uL (4.60-5.80); White Blood Count 6.1 X10*3/uL (4.8-10.8)
[2023-11-10] MEDS: Albuterol Sulfate 2.5 MG, Albuterol/Iprat 2.5/0.5MG 3 ML 3 ML INHALE (07:22)
[2023-11-10 07:24] LABS: INTERNATIONAL NORM RATIO 1.6 (0.9-1.1); Prothrombin Time 19.4 SEC (11.1-13.3)
[2023-11-10 07:32] LABS: Alanine Aminotransferase 12 U/L (0-40); Albumin Level 3.8 g/dL (3.5-5.0); Alkaline Phosphatase 123 U/L (39-117); Anion Gap 13 (12-20); Aspartate Amino Transferase 14 U/L (5-37); Bilirubin Total 0.7 mg/dL (0.0-1.0); Blood Urea Nitrogen 23 mg/dL (9-16); Calcium 8.7 mg/dL (8.4-10.2); Carbon Dioxide 26 mmol/L (22-29); Chloride 106 mmol/L (96-108); Creatinine Clr Calc Pharmacy 78.8; Estimated Glomerular Filt Rate > 60; Glucose Random 140 mg/dL (60-115); Potassium 3.9 mmol/L (3.3-5.1); Sodium 141 mmol/L (135-145); Total Protein 6.9 g/dL (6.5-8.0)
[2023-11-10 07:38] LABS: B Type Natriuretic Peptide 614 pg/mL (<100)
[2023-11-10 07:39] LABS: Troponin-I High Sensitivity 3.3 ng/L (<3.5-35.0)
[2023-11-10 08:09] LABS: Influenza A PCR NEGATIVE (Negative); Influenza B PCR NEGATIVE (Negative); Resp Syncy Virus RNA Qual PCR NEGATIVE (Negative); SARS COV2 PCR INHOUSE NEGATIVE (Negative)
[2023-11-10] MEDS: Furosemide 40 MG/4 ML VIAL IVPUSH (08:11)
--- NOTE | 2023-11-10 08:19 | PC.NURSE ---
patient standing at bedside using urinal, patient noted to be short of breath while standing, patient placed back into bed by this RN, changed patient into hospital gown and provided with urinals and educated that he cannot get out of bed due to him becoming winded and hypoxic. patient verbalizes understanding, shortly after this RN left room patinet became agitated in the bed due to not being able to void into the urinal while laying down, patient reeducated on why he cannot stand up, provider at bedside and made aware of increased work of breathing and patient becoming hypoxic at 88% while standing. Provider agrees that patient is to stay in bed while winded. per provider straight catheterization to be obtained to help patient void, straight cath performed, patient drained of 500mL of clear yellow urine. patient agreeable to try condom catheter at this time, condom catheter applied by this RN and leg bag attached to better monitor out put after IV medication administration. patient resting comfortably on stretcher at this time, at bedside. remains on manager monitoring, endorsing relief after straight catheterization.
[2023-11-10] MEDS: cefTRIAXone sodium 1 GM in 0.9 % Sodium Chloride 50 ML IV (08:45)
[2023-11-10] MEDS: Azithromycin 500 MG in 0.9 % Sodium Chloride 250 ML 125 MG IV (08:48)
[2023-11-10 08:58] LABS: Appearance Urine Clear; Color Urine Yellow; Glucose Urine UA Negative (Negative); Leukocyte Esterase Urine Trace (Negative); Nitrite Urine Negative (Negative); Specific Gravity - Urine <= 1.005 (1.005-1.025); UMIC TRIGGER UACC YES; Urine Blood Negative (Negative); Urine Ketones Negative (Negative); Urine Protein Negative (Neg-Trace)
[2023-11-10 09:03] LABS: Bacteria Urine None Seen (None Seen); Hyaline Casts Urine 0-2 /LPF (0-2); RBC Urine 0-2 /HPF (0-2); Squamous Epithelial Cell Urine 0-2 /HPF (0-2); WBC Urine 0-5 /HPF (0-5)
[2023-11-10 10:14] LABS: OBS Int Ctl Valid YES; OBS1 NEGATIVE (NEGATIVE)
[2023-11-10 10:14] LABS: Immature Retic Fraction 26.8 % (2.3-13.4); Retic HGB Equivalent 24.3 pg (30.0-35.0); Reticulocyte Percent 2.3 % (0.5-1.8); Reticulocytes Absolute 0.057 X10*6/uL (0.026-0.095)
[2023-11-10 10:18] LABS: Iron 33 mcg/dL (45-160); Percent Iron Saturation 10 % (15-50); Total Iron Binding Capacity 346 mcg/dL (228-428); Unsaturated Iron Binding 313 ug/dL
--- NOTE | 2023-11-10 10:26 | PC.NURSE ---
patient resting comfortably on stretcher at this time, PIV flushed for patency, patient miller catheter continues to drain 600mL pale yellow clear urine, patient endorsing some relief with his breathing at this time. offering no further complaints.
--- NOTE | 2023-11-10 10:53 | PC.NURSE ---
admitting at bedside
--- NOTE | 2023-11-10 11:07 | PHA.MEDREC ---
Pharmacy Consult ? Medication Reconciliation Pharmacy has completed the medication reconciliation. spoke with patient to confirm medications. He was a good historian. He last had his Humira 2 weeks ago on a Saturday, he usually takes it every 2 weeks on Saturdays or Sundays and planned to take it yesterday but forgot. Patients metoprolol was last filled for 2t BID but patient still takes it 3t BID and took 3 tablets this morning. He is no longer taking terazosin because it did not make him feel good and is no longer taking theophylline because it caused him to have heart palpitations. He confirmed his digoxin dosing and last took it on Saturday. Patient stated he forgot to take his Bretzri this morning as well.
--- NOTE | 2023-11-10 11:11 | P.HPHOSP_ITS ---
History of Present Illness Date of Service: 11/10/23 Attending physician on admission: Yan Noriega Chief Complaint: sob 77 year old male with history of ILD, COPD with chronic hypoxemic repsiratory failure on 2L O2 at baseline, paroxysmal atrial fibrillation anticoagulated with eliquis, CAD, HTN, HLD, AAA s/p repair, prediabetes, who is a former smoker with 100+ pack year history quit 2015 presented to the ED earlier today for evaluation of worsening HOLLOWAY and orthopnea that started last night when trying to sleep. Reports pursed lips breathing that helped his symptoms. He does not weight himself daily but does not feel like he has gained weight. He did eat a lot of salt yesterday. NO increase in albuterol usage. No fevers, chills, st, congestion, abd pain, n/v/d, melena, hematochezia, cough, sob at rest, wheezing, chest pain. Apparently had difficulty urinating in the ED and miller was placed. Reports at baseline has polyuria but no dysuria, hematuria, urgency, or retention. Since arrival has been tachypneic, normotensive but bp soft at 97/46. No leukocytosis. H/H 7.6/25.0%, baseline around 10.0/31.4%, MCV 98.4. Renal function baseline, lytes normal. BNP 614. CXR shows small right-sided pleural effusion with mild adjacent atelectasis versus infiltrate slightly increased compared to prior with mild patchy bilateral perihilar opacities. In the ED, has received 40 mg IV Lasix, DuoNeb, ceftriaxone, azithromycin. Review of Systems 2 Review of Systems: Yes all other systems are reviewed and are negative [facility] Medical History Supplemental oxygen dependent ILD (interstitial lung disease) COPD (chronic obstructive pulmonary disease) Tubular adenoma of colon (~2021) Postoperative hypothyroidism Obesity (BMI 30-39.9) Atrial fibrillation Chest discomfort Bronchitis Hemoptysis HOLLOWAY (dyspnea on exertion) Abnormal SPEP Multinodular thyroid Swelling of left lower extremity Pulmonary nodules/lesions, multiple Ground glass opacity present on imaging of lung Wedge compression fracture of T9 vertebra (~2018) Coronary artery disease Hypertension Right renal stone Thyroid nodule Vitamin D deficiency Ascending aorta dilatation Obesity (BMI 30-39.9) Psoriasis Hypercholesterolemia Former smoker Stable angina Family History Father Heart disease Mother Throat cancer Paternal Grandfather Heart disease Surgical History Status post AAA (abdominal aortic aneurysm) repair Hx of bilateral cataract extraction (~2022) History of partial thyroidectomy (~2020) History of heart artery stent (~2019) History of colonoscopy History of cardioversion (~2020) History of appendectomy History of tonsillectomy History of lung biopsy (~2016) Social History Household Members: Spouse Housing: Unknown / Unable to assess Are you a primary critical care technician to a significant other at home: No Do you presently have visiting nurse or other home services: No Alcohol intake: former Year quit: 2014 Patient Tobacco Use Status: Former Tobacco user Tobacco use type: Cigarette Years Smoked: 50 e-Cigarette/Vaping Use: Former Use Second Hand Smoke Exposure: No Use of substances other than those prescribed or required for medical reasons: No Advance Directives: No Advance Directives Information Provided: Yes Advance Directives Date on File: 09/21/20 Do you have a plan to hurt others: No Plan service: Yes Current occupational status: retired Cognitive needs: No Hearing needs: No Vision needs: Yes Meds Allergies Allergy/AdvReac Type Severity Reaction Status Date / Time Penicillins Allergy Severe Anaphylaxis Verified 11/10/23 06:45 hydrochlorothiazide Allergy Unknown Unknown Verified 11/10/23 06:45 lisinopril Allergy Unknown Unknown Verified 11/10/23 06:45 regadenoson [From Lexiscan] AdvReac Bradycardic Verified 11/10/23 06:45 Active Medications: Current Medications Acetaminophen (Acetaminophen 325 Mg Tablet) 650 mg PO Q6H PRN PRN Reason: Pain, Mild (Pain Scale 1-3), fever or headache Apixaban (Apixaban 5 Mg Tablet) 5 mg PO BID [facility] Atorvastatin Calcium (Atorvastatin Calcium 80 Mg Tablet) 80 mg PO BEDTIME [facility] Calcium Carbonate (Calcium Carbonate 750 Mg Tab.Chew) 750 mg PO Q4H PRN PRN Reason: Heartburn Clopidogrel Bisulfate (Clopidogrel Bisulfate 75 Mg Tablet) 75 mg PO DAILY [facility] Cyanocobalamin (Cyanocobalamin (Vitamin B-12) 1,000 Mcg Tablet) 1,000 mcg PO DAILY [facility] Digoxin (Digoxin 0.125 Mg Tablet) 0.125 mg PO MOWEFR [facility] Diltiazem HCl (Diltiazem Hcl Cd 300 Mg Cap.Er.24h) 300 mg PO DAILY [facility]; Protocol Furosemide (Furosemide 20 Mg/2 Ml Vial) 20 mg IVPUSH DAILY [facility]; Protocol Levothyroxine Sodium (Levothyroxine Sodium 50 Mcg Tablet) 50 mcg PO QAM [facility] Magnesium Hydroxide (Milk Of Magnesia 30 Ml Oral.Susp) 30 ml PO DAILY PRN PRN Reason: Constipation Melatonin (Melatonin 3 Mg Tablet) 6 mg PO BEDTIME PRN PRN Reason: Insomnia Metoprolol Tartrate (Metoprolol Tartrate 25 Mg Tablet) 75 mg PO BID [facility]; Protocol Non-Formulary Medication (Rcnsmodval-Uqfmqupi-Zmppqetzbs [Breztri Aerosphere]) 2 inhalation INHALE BID [facility] Sodium Chloride (0.9 % Sodium Chloride Flush 3 Ml Syringe) 3 ml IVFLUSH QSHIFT [facility] Tamsulosin HCl (Tamsulosin Hcl 0.4 Mg Capsule) 0.8 mg PO DAILY [facility] Vitamin D (Cholecalciferol (Vitamin D3) 25 Mcg Tablet) 50 mcg PO DAILY [facility] Home Medications ?Medication ?Instructions ?Recorded ?Confirmed ?Last Taken ?Type adalimumab 40 mg/0.4 mL 40 mg subcut Q2W 10/10/22 11/10/23 10/27/23 History subcutaneous pen kit (Humira(CF) Pen) tamsulosin 0.4 mg capsule 0.8 mg PO DAILY 11/10/23 11/10/23 11/09/23 History Physical Exam 2 Vital Signs and Narrative: Vital Signs: Last Vital Signs Temp 97.5 F 11/10/23 10:24 Pulse 59 11/10/23 10:24 Resp 24 H 11/10/23 10:24 BP 97/46 L 11/10/23 10:24 Pulse Ox 94 11/10/23 10:24 O2 Del Method Nasal Cannula 11/10/23 10:24 O2 Flow Rate 2 11/10/23 10:24 BMI result Body Mass Index 32.0 Constitutional - Awake and Alert, No apparent distress Eyes - PERRLA, EOMI Cardiovascular - S1S2, RRR, 1+ edema Respiratory - Normal lung expansion, Normal respiratory effort, No respiratory distress, CTA bilaterally Gastrointestinal - NT / ND; +BS; No rebound or guarding Extremities - no calf tenderness bilaterally, no swelling Skin - Warm/Dry Neurological - Alert & oriented x3 Psychological - Appropriate affect Results Labs 11/10/23 11:31 11/10/23 07:06 Labs: Laboratory Results - last 24 hr 11/10/23 11/10/23 11/10/23 07:06 07:07 07:49 MCV 98.4 H MCH 29.9 MCHC 30.4 L RDW 16.0 Plt Count 159 L MPV 10.2 Immature Gran % (Auto) 0.3 Neut % (Auto) 79.7 H Lymph % (Auto) 9.8 L [place] % (Auto) 9.0 Eos % (Auto) 1.0 Baso % (Auto) 0.2 Lymph # (Auto) 0.6 L [place] # (Auto) 0.6 Eos # (Auto) 0.1 Baso # (Auto) 0.0 Abs Immat Gran (auto) 0.02 Absolute Neuts (auto) 4.9 Absolute Nucleated RBC 0.000 Nucleated RBC % (auto) 0.0 Absolute Retic 0.057 Percent Retic 2.3 H Immature Retic Fraction 26.8 H Retic Hgb Equivalent 24.3 L PT 19.4 H D INR 1.6 H Anion Gap 13 Estim Creat Clear Calc 78.8 Estimated GFR > 60 Random Glucose 140 H Calcium 8.7 Iron 33 L TIBC 346 % Saturation 10 L Unsat Iron Binding 313 Total Bilirubin 0.7 AST 14 ALT 12 Alkaline Phosphatase 123 H Troponin I High Sens 3.3 D B-Natriuretic Peptide 614 H Total Protein 6.9 Albumin 3.8 Urine Color Urine Appearance Urine pH Ur Specific [place] Urine Protein Urine Glucose (UA) Urine Ketones Urine Blood Urine Nitrite Ur Leukocyte Esterase Urine RBC Urine WBC Ur Squamous Epith Cells Urine Bacteria Hyaline Casts Stool Occult Blood Influenza Type A (PCR) NEGATIVE Influenza Type B (PCR) NEGATIVE RSV RNA Qual (PCR) NEGATIVE SARS-CoV-2 RNA (RT-PCR) NEGATIVE Blood Type O Positive Antibody Screen NEGATIVE 11/10/23 08:45 MCV MCH MCHC RDW Plt Count MPV Immature Gran % (Auto) Neut % (Auto) Lymph % (Auto) [place] % (Auto) Eos % (Auto) Baso % (Auto) Lymph # (Auto) [place] # (Auto) Eos # (Auto) Baso # (Auto) Abs Immat Gran (auto) Absolute Neuts (auto) Absolute Nucleated RBC Nucleated RBC % (auto) Absolute Retic Percent Retic Immature Retic Fraction Retic Hgb Equivalent PT INR Anion Gap Estim Creat Clear Calc Estimated GFR Random Glucose Calcium Iron TIBC % Saturation Unsat Iron Binding Total Bilirubin AST ALT Alkaline Phosphatase Troponin I High Sens B-Natriuretic Peptide Total Protein Albumin Urine Color Yellow Urine Appearance Clear Urine pH 7.0 Ur Specific [place] <= 1.005 Urine Protein Negative Urine Glucose (UA) Negative Urine Ketones Negative Urine Blood Negative Urine Nitrite Negative Ur Leukocyte Esterase Trace H Urine RBC 0-2 Urine WBC 0-5 Ur Squamous Epith Cells 0-2 Urine Bacteria None Seen Hyaline Casts 0-2 Stool Occult Blood NEGATIVE Influenza Type A (PCR) Influenza Type B (PCR) RSV RNA Qual (PCR) SARS-CoV-2 RNA (RT-PCR) Blood Type Antibody Screen Imaging Radiologist's Impressions: Impressions Chest X-Ray 11/10/23 06:55 IMPRESSION: 1. Small right-sided pleural effusion with mild adjacent atelectasis versus infiltrates, slightly increased when compared to the prior chest radiograph. 2. Mild patchy bilateral perihilar opacities. Assessment and Plan (1) Acute urinary retention: Status: Acute (2) Acute CHF: Qualifiers: Heart failure type: unspecified Qualified Code(s): I50.9 - Heart failure, unspecified Status: Acute (3) Acute on chronic anemia: Status: Acute Plan 77 year old male with history of ILD, COPD with chronic hypoxemic repsiratory failure on 2L O2 at baseline, paroxysmal atrial fibrillation anticoagulated with eliquis, CAD, HTN, HLD, AAA s/p repair, prediabetes, who is a former smoker with 100+ pack year history quit 2014 admitted for further management of symptomatic anemia and CHF exacerbation #Acute on chronic symptomatic anemia- worsening anemia of chronic disease -stool occult blood negative, denies bleeding -h/h 7.6/25.0, was last 10.0/31.4%. Repeat 7.2/23.6% -Iron 25, TIBC 340, 7%saturation, ferritin 58. Vit B12 1141, folate 11.5 -Transfuse 1 unit PRBC, venefer infusion -follow h/h -monitor on tele #Acute exacebration of HFrEF -likely in setting of anemia. BNP 614, CXR with effusions -tranfuse as above -IV lasix 20mg daily -Last echo shows EF 50-55% low normal LV systolic fx 02/2023 -STrict I&O -cardiac diet -follow renal fx/lytes #Acute urinary retention -has bph with luts but retention is new -miller in place -continue flomax #ILD/COPD with chronic hypoxemic respiratory failure -no exacerbation -continue maintenance inhalers, albuterol p.r.n. # paroxysmal atrial fibrillation-rate controlled -continue Eliquis for anticoagulation -continue digoxin, metorpolol. Hold diltiazem in setting of chf exacerbation #Hypothyroidism -continue levothyroxine #CAD/HLD/AAA -no chest pain -continue eliquis, plavix, statin, bb #HTN -hold diltiazem. Continue metorpolol, lasix dvt prophylaxis-Eliquis Full code Patient requires inpatient stay at least 2 midnights for management of acute on chronic symptomatic anemia with resulting CHF exacerbation likely requiring blood transfusion, IV diuresis, close cardiac monitoring and monitoring of renal function electrolyte levels Quality Stroke Does the patient have a stroke diagnosis?: No VTE Prior VTE?: No VTE Risk Level:: Medical - moderate - high VTE Device Contraindication: Treatment Not Indicated VTE Drug Contraindication: N/A - Med Ordered
--- NOTE | 2023-11-10 11:29 | PC.NURSE ---
phlebotomy at bedside
[2023-11-10 11:37] LABS: MANUAL DIFF FLAG NO
[2023-11-10 11:46] LABS: Basophils Percent Auto 0.3 % (0-2); Eosinophils Percent Auto 0.5 % (0-4); Hematocrit 23.6 % (42.0-52.0); Hemoglobin 7.2 g/dl (14.0-18.0); Imm Gran Abs Auto 0.01 X10*3/uL (0.00-0.03); Imm Gran Pct Auto 0.2 % (0.0-0.4); Lymphocytes Absolute Auto 0.7 X10*3/uL (1.2-4.9); Lymphocytes Percent Auto 10.5 % (20-40); Mean Corpuscular HGB Conc 30.5 g/dl (31.0-36.0); Mean Corpuscular Hemoglobin 29.4 pg (27.0-33.0); Mean Corpuscular Volume 96.3 fL (80.0-98.0); Mean Platelet Volume 10.5 fL (9.4-12.4); Monocytes Absolute Auto 0.6 X10*3/uL (0.1-1.2); Monocytes Percent Auto 8.8 % (2-11); Neutrophils Percent Auto 79.7 % (45-73); Platelet Count 175 X10*3/uL (160-400); Red Blood Count 2.45 X10*6/uL (4.60-5.80); Red Cell Distribution Width 15.9 % (11.0-16.0); White Blood Count 6.3 X10*3/uL (4.8-10.8)
--- NOTE | 2023-11-10 12:06 | PC.NURSE ---
patient to be transfused per admitting provider.
--- NOTE | 2023-11-10 12:08 | PC.NURSE ---
provider in room to obtain consent for blood transfusion
[2023-11-10 12:15] LABS: Iron 25 mcg/dL (45-160); Percent Iron Saturation 7 % (15-50); Total Iron Binding Capacity 340 mcg/dL (228-428); Unsaturated Iron Binding 315 ug/dL
[2023-11-10 12:28] LABS: Ferritin 58 ng/mL (20-250)
--- NOTE | 2023-11-10 12:37 | PC.NURSE ---
pharmacy called to request iron sucrose infusion. into patient room to update on plan, patient endorsing being uncomfortable in the stretcher, attempted to readjust the patient in bed multiple times, patient stating this is fine how it is i guess per provider patient OK to recieve lunch tray before starting blood transfusion
[2023-11-10 12:42] LABS: Folate 11.5 ng/mL (> or = 4.0); Vitamin B12 1141 pg/mL (200-900)
[2023-11-10] MEDS: Iron Sucrose Complex 200 MG in 0.9 % Sodium Chloride 100 ML 440 MG IV (13:04)
--- NOTE | 2023-11-10 13:34 | PC.NURSE ---
delay in dietary trays, patient would like to eat lunch before receiving transfusion, OK per admitting provider. patient provided with sandwich until meal trays arrive. iron infusion completed
--- NOTE | 2023-11-10 14:56 | PC.NURSE ---
patient tolerating blood transfusion well, remains on radiographer cardiac catheterization, vital signs remaining stable at this time
--- NOTE | 2023-11-10 17:37 | PC.NURSE ---
patient transferred onto hospital stretcher for comfort. patient able to stand and pivot onto new bed without difficulty. patient offering no complaints at this time, placed back on personnel monitor, tolerated blood transfusion well.
--- NOTE | 2023-11-10 18:32 | PC.NURSE ---
patient provided with dinner tray
[2023-11-10 18:48] LABS: Hematocrit 26.3 % (42.0-52.0); Hemoglobin 8.3 g/dl (14.0-18.0)
[2023-11-10] MEDS: Atorvastatin Calcium 80 MG TABLET PO (21:20)
[2023-11-10] MEDS: Apixaban 5 MG TABLET PO (21:20)
[2023-11-10] MEDS: Metoprolol Tartrate 25 MG TABLET 75 MG PO (21:21)
[2023-11-10] MEDS: Melatonin 3 MG TABLET 6 MG PO (21:21)
[2023-11-11] VITALS (7 sets, daily range): BP systolic 117–148; BP diastolic 59–75; PULSE 58–89; RESP 16–20; TEMP 36.3–36.9; O2SAT 93–98
[2023-11-11] MEDS: 0.9 % Sodium Chloride Flush 3 ML SYRINGE IVFLUSH ×4 (00:41→20:38)
[2023-11-11 04:57] LABS: Basophils Percent Auto 0.2 % (0-2); Eosinophils Absolute Auto 0.1 X10*3/uL (0.0-0.4); Eosinophils Percent Auto 0.8 % (0-4); Hematocrit 24.9 % (42.0-52.0); Hemoglobin 7.8 g/dl (14.0-18.0); Imm Gran Abs Auto 0.03 X10*3/uL (0.00-0.03); Imm Gran Pct Auto 0.5 % (0.0-0.4); Lymphocytes Absolute Auto 0.5 X10*3/uL (1.2-4.9); Lymphocytes Percent Auto 8.1 % (20-40); MANUAL DIFF FLAG NO; Mean Corpuscular HGB Conc 31.3 g/dl (31.0-36.0); Mean Corpuscular Volume 95.8 fL (80.0-98.0); Mean Platelet Volume 10.6 fL (9.4-12.4); Monocytes Absolute Auto 0.6 X10*3/uL (0.1-1.2); Monocytes Percent Auto 9.5 % (2-11); Neutrophils Absolute Auto 5.3 x10*3/uL (2.0-8.3); Neutrophils Percent Auto 80.9 % (45-73); Platelet Count 156 X10*3/uL (160-400); Red Cell Distribution Width 15.8 % (11.0-16.0); White Blood Count 6.5 X10*3/uL (4.8-10.8)
[2023-11-11 05:13] LABS: Anion Gap 13 (12-20); Blood Urea Nitrogen 25 mg/dL (9-16); Calcium 8.9 mg/dL (8.4-10.2); Carbon Dioxide 27 mmol/L (22-29); Chloride 106 mmol/L (96-108); Creatinine Clr Calc Pharmacy 72.2; Estimated Glomerular Filt Rate > 60; Glucose Random 127 mg/dL (60-115); Potassium 3.3 mmol/L (3.3-5.1); Sodium 143 mmol/L (135-145)
[2023-11-11] MEDS: Levothyroxine Sodium 50 MCG TABLET PO (06:21)
--- NOTE | 2023-11-11 07:05 | HO.PM.IMPN ---
Subjective Subjective Date of Service: 11/11/23 Interval History: Seen in follow up for symptomatic anemia, chf INterval history: Poor sleep last night due to ED noise, but no orthopnea. No HOLLOWAY. On baseline O2. NO palpitations, sob Review of Systems Review of Systems: Yes all other systems are reviewed and are negative Physical Exam Vital Signs: Vital Signs: Last Vital Signs Temp 98.4 F 11/11/23 04:42 Pulse 70 11/11/23 04:42 Resp 16 11/11/23 04:42 BP 130/59 L 11/11/23 04:42 Pulse Ox 94 11/11/23 04:42 O2 Del Method Room Air 11/11/23 04:42 O2 Flow Rate 2 11/10/23 10:24 BMI result Body Mass Index 32.0 Constitutional - Awake and Alert, No apparent distress Eyes - PERRLA, EOMI Cardiovascular - S1S2, RRR, No edema Respiratory - Normal lung expansion, Normal respiratory effort, No respiratory distress, CTA bilaterally Gastrointestinal - NT / ND; +BS; No rebound or guarding Extremities - no calf tenderness bilaterally, no swelling Skin - Warm/Dry Neurological - Alert & oriented x3 Psychological - Appropriate affect Objective Data Active Medications Acetaminophen (Acetaminophen 325 Mg Tablet) 650 mg PO Q6H PRN PRN Reason: Pain, Mild (Pain Scale 1-3), fever or headache Apixaban (Apixaban 5 Mg Tablet) 5 mg PO BID [facility] Last Admin: 11/10/23 21:20 Dose: 5 mg Documented By: DEACON Atorvastatin Calcium (Atorvastatin Calcium 80 Mg Tablet) 80 mg PO BEDTIME [facility] Last Admin: 11/10/23 21:20 Dose: 80 mg Documented By: DEACON Calcium Carbonate (Calcium Carbonate 750 Mg Tab.Chew) 750 mg PO Q4H PRN PRN Reason: Heartburn Clopidogrel Bisulfate (Clopidogrel Bisulfate 75 Mg Tablet) 75 mg PO DAILY [facility] Cyanocobalamin (Cyanocobalamin (Vitamin B-12) 1,000 Mcg Tablet) 1,000 mcg PO DAILY [facility] Digoxin (Digoxin 0.125 Mg Tablet) 0.125 mg PO MoWeFr@0900 [facility] Furosemide (Furosemide 20 Mg/2 Ml Vial) 20 mg IVPUSH DAILY [facility]; Protocol Levothyroxine Sodium (Levothyroxine Sodium 50 Mcg Tablet) 50 mcg PO DAILY@0600 [facility] Last Admin: 11/11/23 06:21 Dose: 50 mcg Documented By: TORRI Magnesium Hydroxide (Milk Of Magnesia 30 Ml Oral.Susp) 30 ml PO DAILY PRN PRN Reason: Constipation Melatonin (Melatonin 3 Mg Tablet) 6 mg PO BEDTIME PRN PRN Reason: Insomnia Last Admin: 11/10/23 21:21 Dose: 6 mg Documented By: DEACON Metoprolol Tartrate (Metoprolol Tartrate 25 Mg Tablet) 75 mg PO BID [facility]; Protocol Last Admin: 11/10/23 21:21 Dose: 75 mg Documented By: DEACON Non-Formulary Medication (Hlcodbvduf-Yvxbifrv-Xgmdisxdkk [Breztri Aerosphere]) 2 inhalation INHALE BID [facility] Sodium Chloride (0.9 % Sodium Chloride Flush 3 Ml Syringe) 3 ml IVFLUSH QSHIFT [facility] Last Admin: 11/11/23 00:41 Dose: 3 ml Documented By: DEACON Tamsulosin HCl (Tamsulosin Hcl 0.4 Mg Capsule) 0.8 mg PO DAILY [facility] Vitamin D (Cholecalciferol (Vitamin D3) 25 Mcg Tablet) 50 mcg PO DAILY [facility] Labs 11/11/23 13:41 11/11/23 04:29 Labs: Laboratory Results - last 24 hr 11/10/23 11/10/23 11/10/23 07:06 07:07 07:49 MCV 98.4 H MCH 29.9 MCHC 30.4 L RDW 16.0 Plt Count 159 L MPV 10.2 Immature Gran % (Auto) 0.3 Neut % (Auto) 79.7 H Lymph % (Auto) 9.8 L [place] % (Auto) 9.0 Eos % (Auto) 1.0 Baso % (Auto) 0.2 Lymph # (Auto) 0.6 L [place] # (Auto) 0.6 Eos # (Auto) 0.1 Baso # (Auto) 0.0 Abs Immat Gran (auto) 0.02 Absolute Neuts (auto) 4.9 Absolute Nucleated RBC 0.000 Nucleated RBC % (auto) 0.0 Absolute Retic 0.057 Percent Retic 2.3 H Immature Retic Fraction 26.8 H Retic Hgb Equivalent 24.3 L PT 19.4 H D INR 1.6 H Anion Gap 13 Estim Creat Clear Calc 78.8 Estimated GFR > 60 Random Glucose 140 H Calcium 8.7 Iron 33 L TIBC 346 % Saturation 10 L Unsat Iron Binding 313 Ferritin Total Bilirubin 0.7 AST 14 ALT 12 Alkaline Phosphatase 123 H Troponin I High Sens 3.3 D B-Natriuretic Peptide 614 H Total Protein 6.9 Albumin 3.8 Vitamin B12 Folate Urine Color Urine Appearance Urine pH Ur Specific [place] Urine Protein Urine Glucose (UA) Urine Ketones Urine Blood Urine Nitrite Ur Leukocyte Esterase Urine RBC Urine WBC Ur Squamous Epith Cells Urine Bacteria Hyaline Casts Stool Occult Blood Influenza Type A (PCR) NEGATIVE Influenza Type B (PCR) NEGATIVE RSV RNA Qual (PCR) NEGATIVE SARS-CoV-2 RNA (RT-PCR) NEGATIVE Blood Type O Positive Antibody Screen NEGATIVE Crossmatch See Detail 11/10/23 11/10/23 11/11/23 08:45 11:31 04:29 MCV 96.3 95.8 MCH 29.4 30.0 MCHC 30.5 L 31.3 RDW 15.9 15.8 Plt Count 175 156 L MPV 10.5 10.6 Immature Gran % (Auto) 0.2 0.5 H Neut % (Auto) 79.7 H 80.9 H Lymph % (Auto) 10.5 L 8.1 L [place] % (Auto) 8.8 9.5 Eos % (Auto) 0.5 0.8 Baso % (Auto) 0.3 0.2 Lymph # (Auto) 0.7 L 0.5 L [place] # (Auto) 0.6 0.6 Eos # (Auto) 0.0 0.1 Baso # (Auto) 0.0 0.0 Abs Immat Gran (auto) 0.01 0.03 Absolute Neuts (auto) 5.0 5.3 Absolute Nucleated RBC 0.000 0.000 Nucleated RBC % (auto) 0.0 0.0 Absolute Retic Percent Retic Immature Retic Fraction Retic Hgb Equivalent PT INR Anion Gap 13 Estim Creat Clear Calc 72.2 Estimated GFR > 60 Random Glucose 127 H Calcium 8.9 Iron 25 L TIBC 340 % Saturation 7 L Unsat Iron Binding 315 Ferritin 58 Total Bilirubin AST ALT Alkaline Phosphatase Troponin I High Sens B-Natriuretic Peptide Total Protein Albumin Vitamin B12 1141 H Folate 11.5 Urine Color Yellow Urine Appearance Clear Urine pH 7.0 Ur Specific [place] <= 1.005 Urine Protein Negative Urine Glucose (UA) Negative Urine Ketones Negative Urine Blood Negative Urine Nitrite Negative Ur Leukocyte Esterase Trace H Urine RBC 0-2 Urine WBC 0-5 Ur Squamous Epith Cells 0-2 Urine Bacteria None Seen Hyaline Casts 0-2 Stool Occult Blood NEGATIVE Influenza Type A (PCR) Influenza Type B (PCR) RSV RNA Qual (PCR) SARS-CoV-2 RNA (RT-PCR) Blood Type Antibody Screen Crossmatch Assessment and Plan (1) Acute urinary retention: Status: Acute (2) Acute CHF: Status: Acute (3) Acute on chronic anemia: Status: Acute Plan 77 year old male with history of ILD, COPD with chronic hypoxemic repsiratory failure on 2L O2 at baseline, paroxysmal atrial fibrillation anticoagulated with eliquis, CAD, HTN, HLD, AAA s/p repair, prediabetes, who is a former smoker with 100+ pack year history quit 2014 admitted for further management of symptomatic anemia and CHF exacerbation #Acute on chronic symptomatic anemia- worsening anemia of chronic disease -stool occult blood negative, denies bleeding -hgb improved to 7.8. Ideally, keep >8.0 in light of cardiac history. Repeat H/H transfuse as indicated -Iron 25, TIBC 340, 7%saturation, ferritin 58. Vit B12 1141, folate 11.5 -Transfuse 1 unit PRBC, venefer infusion. Continue PO ferrous sulfate with vitamin C -follow h/h -monitor on tele #Acute exacebration of HFrEF -likely in setting of anemia. BNP 614, CXR with effusions -tranfuse as above -Started on IV lasix 20mg daily. Transition to home dose PO lasix 20mg daily tomorrow -Last echo shows EF 50-55% low normal LV systolic fx 02/2023 -STrict I&O -cardiac diet -follow renal fx/lytes #Acute urinary retention -has bph with luts but retention is new -miller in place. 11/10 dc miller with trial to void -continue flomax #ILD/COPD with chronic hypoxemic respiratory failure -no exacerbation -continue maintenance inhalers, albuterol p.r.n. # paroxysmal atrial fibrillation-rate controlled -continue Eliquis for anticoagulation -continue digoxin, metorpolol. Hold diltiazem in setting of chf exacerbation #Hypothyroidism -continue levothyroxine #CAD/HLD/AAA -no chest pain -continue eliquis, plavix, statin, bb #HTN -hold diltiazem. Continue metorpolol, lasix dvt prophylaxis-Eliquis Full code Patient requires ongoing inpt stay due to chf exacerbation in setting of symptomatic improvement requiring close monitoring of h/h and possible additional transfusion with iv diuresis Quality Stroke Does the patient have a stroke diagnosis?: No VTE Prior VTE?: No VTE Risk Level:: Medical - moderate - high VTE Device Contraindication: Treatment Not Indicated VTE Drug Contraindication: N/A - Med Ordered
[2023-11-11] MEDS: Metoprolol Tartrate 25 MG TABLET 75 MG PO ×2 (09:18→20:37)
[2023-11-11] MEDS: Furosemide 20 MG/2 ML VIAL IVPUSH (09:18)
[2023-11-11] MEDS: Digoxin 0.125 MG TABLET PO (09:18)
[2023-11-11] MEDS: Cyanocobalamin (Vitamin B-12) 1,000 MCG TABLET 1000 MCG PO (09:18)
[2023-11-11] MEDS: Cholecalciferol (Vitamin D3) 25 MCG TABLET 50 MCG PO (09:18)
[2023-11-11] MEDS: Ferrous Sulfate 324 MG TABLET.DR 325 MG PO (09:18)
[2023-11-11] MEDS: Clopidogrel Bisulfate 75 MG TABLET PO (09:19)
[2023-11-11] MEDS: Apixaban 5 MG TABLET PO ×2 (09:19→20:38)
[2023-11-11] MEDS: Tamsulosin HCL 0.4 MG CAPSULE 0.8 MG PO (09:19)
[2023-11-11] MEDS: Ascorbic Acid 250 MG TABLET PO (09:19)
--- NOTE | 2023-11-11 09:38 | MHC.CM.PN ---
IMM 11/11/23, Pt lives with his , Julieta, she is HCP and form is on file and confirmed. No home health services, DME: O2, pt. states it is from [facility]. PCP confirmed: Dr. Delgado. to transport home at DC. DCP: home, self care or VNA. CM to follow and assist with DC plan.
[2023-11-11 13:47] LABS: Hemoglobin 8.4 g/dl (14.0-18.0)
[2023-11-11] MEDS: Atorvastatin Calcium 80 MG TABLET PO (20:37)
[2023-11-12] VITALS: BP 143/62; PULSE 72; RESP 16; TEMP 36.4; O2SAT 98
[2023-11-12 03:42] VITALS: BP 139/69; PULSE 80; RESP 16; TEMP 36.9; O2SAT 93
[2023-11-12 05:49] LABS: MANUAL DIFF FLAG NO
[2023-11-12 05:51] LABS: Basophils Percent Auto 0.2 % (0-2); Eosinophils Absolute Auto 0.1 X10*3/uL (0.0-0.4); Eosinophils Percent Auto 1.6 % (0-4); Hematocrit 28.6 % (42.0-52.0); Hemoglobin 8.7 g/dl (14.0-18.0); Imm Gran Abs Auto 0.04 X10*3/uL (0.00-0.03); Imm Gran Pct Auto 0.6 % (0.0-0.4); Lymphocytes Absolute Auto 0.6 X10*3/uL (1.2-4.9); Lymphocytes Percent Auto 9.9 % (20-40); Mean Corpuscular HGB Conc 30.4 g/dl (31.0-36.0); Mean Corpuscular Hemoglobin 29.5 pg (27.0-33.0); Mean Corpuscular Volume 96.9 fL (80.0-98.0); Mean Platelet Volume 10.3 fL (9.4-12.4); Monocytes Absolute Auto 0.7 X10*3/uL (0.1-1.2); Monocytes Percent Auto 10.4 % (2-11); Neutrophils Percent Auto 77.3 % (45-73); Platelet Count 161 X10*3/uL (160-400); Red Blood Count 2.95 X10*6/uL (4.60-5.80); Red Cell Distribution Width 15.9 % (11.0-16.0); White Blood Count 6.5 X10*3/uL (4.8-10.8)
[2023-11-12 06:05] LABS: Anion Gap 13 (12-20); Blood Urea Nitrogen 21 mg/dL (9-16); Calcium 9.2 mg/dL (8.4-10.2); Carbon Dioxide 30 mmol/L (22-29); Chloride 103 mmol/L (96-108); Creatinine Clr Calc Pharmacy 75.4; Estimated Glomerular Filt Rate > 60; Glucose Random 116 mg/dL (60-115); Potassium 3.9 mmol/L (3.3-5.1); Sodium 142 mmol/L (135-145)
[2023-11-12] MEDS: Levothyroxine Sodium 50 MCG TABLET PO (06:47)
[2023-11-12 08:00] VITALS: BP 142/76; PULSE 79; RESP 20; TEMP 36.2; O2SAT 96
[2023-11-12] MEDS: Tamsulosin HCL 0.4 MG CAPSULE 0.8 MG PO (09:42)
[2023-11-12] MEDS: Ascorbic Acid 250 MG TABLET PO (09:42)
[2023-11-12] MEDS: Cholecalciferol (Vitamin D3) 25 MCG TABLET 50 MCG PO (09:42)
[2023-11-12] MEDS: Furosemide 20 MG TABLET PO (09:42)
[2023-11-12] MEDS: Cyanocobalamin (Vitamin B-12) 1,000 MCG TABLET 1000 MCG PO (09:42)
[2023-11-12] MEDS: Apixaban 5 MG TABLET PO (09:43)
[2023-11-12] MEDS: Clopidogrel Bisulfate 75 MG TABLET PO (09:43)
[2023-11-12] MEDS: Metoprolol Tartrate 25 MG TABLET 75 MG PO (09:43)
[2023-11-12] MEDS: 0.9 % Sodium Chloride Flush 3 ML SYRINGE IVFLUSH (09:47)
[2023-11-12] MEDS: Ferrous Sulfate 324 MG TABLET.DR PO (09:53)
[2023-11-12 10:40] VITALS: BP 142/76; PULSE 79; O2SAT 96
[2023-11-12 11:15] VITALS: BP 115/71; PULSE 82; RESP 20; TEMP 36.5; O2SAT 98
--- NOTE | 2023-11-12 12:34 | PM.DS ---
DS: Providers Provider Date of Service: 11/12/23 Date of admission: 11/10/23 11:01 Date of discharge: 11/12/23 Primary care physician: Oswaldo Delgado MD Consults: 11/11/23 10:10 Consult to Wound Care Routine Reason for consultation: L yost wound Has provider been notified: Yes Attending physician on discharge: Raj Greenfield Discharging clinician: Raj Greenfield DS: Diagnosis Discharge Diagnosis (1) Acute urinary retention: Status: Acute (2) Acute CHF: Status: Acute (3) Acute on chronic anemia: Status: Acute DS: Summary Hospital Course Hospital Course: 77 year old male with history of ILD, COPD with chronic hypoxemic repsiratory failure on 2L O2 at baseline, paroxysmal atrial fibrillation anticoagulated with eliquis, CAD, HTN, HLD, AAA s/p repair, prediabetes, who is a former smoker with 100+ pack year history quit 2014 presented to the ED earlier today for evaluation of worsening HOLLOWAY and orthopnea that started last night when trying to sleep. Reports pursed lips breathing that helped his symptoms. He does not weight himself daily but does not feel like he has gained weight. He did eat a lot of salt yesterday. NO increase in albuterol usage. No fevers, chills, st, congestion, abd pain, n/v/d, melena, hematochezia, cough, sob at rest, wheezing, chest pain. Apparently had difficulty urinating in the ED and miller was placed. Reports at baseline has polyuria but no dysuria, hematuria, urgency, or retention. Since arrival has been tachypneic, normotensive but bp soft at 97/46. No leukocytosis. H/H 7.6/25.0%, baseline around 10.0/31.4%, MCV 98.4. Renal function baseline, lytes normal. BNP 614. CXR shows small right-sided pleural effusion with mild adjacent atelectasis versus infiltrate slightly increased compared to prior with mild patchy bilateral perihilar opacities. In the ED, has received 40 mg IV Lasix, DuoNeb, ceftriaxone, azithromycin. Hospital course: Patient came to the hospital because of symptomatic anemia and CHF exacerbation ( HFrEF): Anemia workup was done possible AOCD with low iron sats and iron levels: Patient denies any gross bleeding, melena, fecal occult blood negative-patient received 1 PRBC as well as Venofer infusion: His H&H is stable around 8.7 range. Patient needs to follow-up with Hematology outpatient for further management, monitor CBC outpatient,also d/w Gi -continue ac for now ,added famotidine 20 mg po bid since on plavix ( avoid omeprazole). Acute exacebration of HFrEF: Likely in the setting of anemia, BNP was 614, chest x-ray with effusions -patient was given transfusions for anemia as well as given IV Lasix: Patient diuresed well shortness of breath seems to be improved , now at his baseline. Patient uses 2-3 L oxygen at baseline for his COPD. Continue Lasix 20 mg daily. CHF education given, monitor weights-if weight increases 2 lb or more in a week, consider Lasix adjustment outpatient, follow-up with PCP. afib: hr is conrtolled , continue digoxin, metoprolol, patient diltiazem was initially placed on hold due to CHF, his blood pressure is fluctuating so will adjust diltiazem to 180 mg daily since heart rate is controlled, monitor blood pressure closely, if needed diltiazem can be adjusted out patiently. Patient has urinary retention episode, has history of BPH: Given Miller, trial of voiding given patient is urinating well, continue Flomax, followed up outpatient with Urology. plan: Added iron -1 tab b.i.d., famotidine 20 mg p.o. b.i.d. Continue Lasix 20 mg daily, follow-up with Cardiology outpatient. Follow-up up CBC and BMP outpatient. follow up with pcp and hematology outpatient ,if needed consider GI followup. Above management discussed with the patient in detail length he understand in agreement the above plan, time spent 40 minute. Time Attestation Total time managing care of this patient today: 40 mintues. Discharge Coordination Time (in mins): 40 min Quality: Safe Use of Opioids Does Pt have an Active Cancer Diagnosis on the Problem List?: No Quality: Stroke Does the patient have a stroke diagnosis?: No Physical Exam Vital Signs: Vital Signs: Last Vital Signs Temp 97.7 F 11/12/23 11:15 Pulse 82 11/12/23 11:15 Resp 20 11/12/23 11:15 BP 115/71 11/12/23 11:15 Pulse Ox 98 11/12/23 11:15 O2 Del Method Nasal Cannula 11/12/23 11:15 O2 Flow Rate 2 11/12/23 11:15 BMI result Body Mass Index 32.0 Appearance: Alert.? Oriented X3.? cvs: rrr, [id number] , no murmur res: clear to auscultation ,no rhonchii or wheezing abd: no rebound or guarding ,nt, bs present. ext pulses present , no cyanosis . neuro: axo3 , nonfocal. DS: Data Data Completed and Pending Completed studies during hospitalization [Text1]: Procedures Hoahaoism of Cardiac Rhythm, Single (04/01/20) Restriction of Abdominal Aorta with Intraluminal Device, Percutaneous Approach (07/15/23) Labs on day of discharge: Laboratory Results - last 24 hr 11/11/23 11/12/23 13:41 05:25 WBC 6.5 RBC 2.95 L Hgb 8.4 L 8.7 L Hct 27.0 L 28.6 L MCV 96.9 MCH 29.5 MCHC 30.4 L RDW 15.9 Plt Count 161 MPV 10.3 Immature Gran % (Auto) 0.6 H Neut % (Auto) 77.3 H Lymph % (Auto) 9.9 L Hamilton % (Auto) 10.4 Eos % (Auto) 1.6 Baso % (Auto) 0.2 Lymph # (Auto) 0.6 L Hamilton # (Auto) 0.7 Eos # (Auto) 0.1 Baso # (Auto) 0.0 Abs Immat Gran (auto) 0.04 H Absolute Neuts (auto) 5.0 Absolute Nucleated RBC 0.000 Nucleated RBC % (auto) 0.0 Sodium 142 Potassium 3.9 Chloride 103 Carbon Dioxide 30 H Anion Gap 13 BUN 21 H Creatinine 0.92 Estim Creat Clear Calc 75.4 Estimated GFR > 60 Random Glucose 116 H Calcium 9.2 Imaging Chest x-ray: Radiologist's impression: ITS Impressions Chest X-Ray 11/10/23 06:55 IMPRESSION: 1. Small right-sided pleural effusion with mild adjacent atelectasis versus infiltrates, slightly increased when compared to the prior chest radiograph. 2. Mild patchy bilateral perihilar opacities. Discharge Plan Discharge Anticipated Discharge Date/Time: 11/12/23 11:58 Patient Disposition: Home, Self-Care Discharge Diagnosis: anemia ,chf Referrals: Po,Oswaldo Deng MD [Primary Care Provider] - 1 Week Discharge Medications: New ferrous sulfate 324 mg (65 mg iron) Tablet,Delayed Release (Dr/Ec) 324 mg PO DAILY Qty: 60 0RF famotidine 20 mg tablet 20 mg PO BID Qty: 60 0RF Continued (DME) OXYGEN 2 L NC keep sats > 90 See Rx Instructions .Route .MEDSUPPLY Qty: 1 0RF Rx Instructions: As directed (DME) PORTABLE OXYGEN TANK See Rx Instructions .Route .MEDSUPPLY Qty: 1 0RF Rx Instructions: As directed clopidogrel 75 mg tablet 75 mg PO DAILY Qty: 90 3RF Eliquis 5 mg tablet 5 mg PO BID Qty: 60 7RF cyanocobalamin (vitamin B-12) [Vitamin B-12] 1,000 mcg tablet 1,000 mcg PO DAILY Qty: 90 3RF cholecalciferol (vitamin D3) 50 mcg (2,000 unit) capsule 50 mcg PO DAILY Qty: 90 3RF digoxin 125 mcg (0.125 mg) tablet 125 mcg PO MOWEFR 90 Days Qty: 39 3RF furosemide [Lasix] 20 mg tablet 20 mg PO DAILY Qty: 90 3RF metoprolol tartrate 25 mg tablet 75 mg PO BID 90 Days Qty: 540 3RF levothyroxine 50 mcg tablet 50 mcg PO QAM Qty: 90 1RF atorvastatin 80 mg tablet 80 mg PO BEDTIME Qty: 90 2RF tamsulosin 0.4 mg capsule 0.8 mg PO DAILY (DME) compress.stocking,knee,reg,med Misc See Rx Instructions .Route Qty: 2 0RF Rx Instructions: As directed 20-30 mm HG Humira(CF) Pen 40 mg/0.4 mL pen injector kit 40 mg subcut Q2W Rx Instructions: Every 2 weeks on SA or TOLBERT Breztri Aerosphere 160-9-4.8 mcg/actuation HFA aerosol inhaler 2 inh inhalation BID Qty: 10.7 6RF Changed diltiazem HCl 300 mg capsule,extended release 24hr 180 mg PO DAILY Qty: 90 3RF Discharge Orders: Discharge Order (Routine); Ordered 11/12/23 Ordered By: Raj Greenfield Diet: Advance to usual diet Activity on Discharge: As tolerated Stand Alone Forms: Patient Portal Discharge page Print Language: [place] Citizen Other Ambulatory Orders: Basic Metabolic Panel (Routine) Timeframe: 1 Week Facility: [facility] - Location: Laboratory Ordered By: Raj Greenfield Complete Blood Count no Diff (Routine) Timeframe: 1 Week Facility: [facility] - Location: Laboratory Ordered By: Raj Greenfield Care Plan Goals: Patient came to the hospital because of symptomatic anemia and CHF exacerbation ( HFrEF): Anemia workup was done possible AOCD with low iron sats and iron levels: Patient denies any gross bleeding, melena, fecal occult blood negative-patient received 1 PRBC as well as Venofer infusion: His H&H is stable around 8.7 range. Patient needs to follow-up with Hematology outpatient for further management, monitor CBC outpatient,also added famotidine 20 mg po bid since on plavix ( avoid omeprazole). Acute exacebration of HFrEF: Likely in the setting of anemia, BNP was 614, chest x-ray with effusions -patient was given transfusions for anemia as well as given IV Lasix: Patient diuresed well shortness of breath seems to be improved , now at his baseline. Patient uses 2-3 L oxygen at baseline for his COPD. Continue Lasix 20 mg daily. CHF education given, monitor weights-if weight increases 2 lb or more in a week, consider Lasix adjustment outpatient, follow-up with PCP. Patient has urinary retention episode, has history of BPH: Given Miller, trial of voiding given patient is urinating well, continue Flomax, followed up outpatient with Urology. follow up with pcp and hematology outpatient ,if needed consider GI followup. Health Concerns: as above. Plan of Treatment: as above. Assessment: as above.
--- NOTE | 2023-11-12 12:46 | MHC.CM.PN ---
Pt has been medically cleared for DC, he will go home via family transport, plan is self care.
[2023-11-12 15:18] VITALS: BP 148/85; PULSE 76; RESP 18; TEMP 36.4; O2SAT 97
== END 2023-11-12 16:31 | disposition home or self-care (01) | DRG 725 ==
LOC: HO.ED 07:34 → HO.EDOVER 11:12 → HO.IMC 11-11 08:14
PROVIDERS: Physician Assistant; Admitting Provider Physician Assistant; Emergency Provider Emergency Medicine; PCP Internal Medicine; Visit Provider Internal Medicine
DX: N40.1 Benign prostatic hyperplasia with lower urinary tract symptoms (principal); I50.23 Acute on chronic systolic (congestive) heart failure; J96.11 Chronic respiratory failure with hypoxia; J84.9 Interstitial pulmonary disease, unspecified; R33.8 Other retention of urine; D63.8 Anemia in other chronic diseases classified elsewhere; I25.10 Atherosclerotic heart disease of native coronary artery without angina pectoris; I11.0 Hypertensive heart disease with heart failure; I48.0 Paroxysmal atrial fibrillation; E78.5 Hyperlipidemia, unspecified; E89.0 Postprocedural hypothyroidism; Z20.822 Contact with and (suspected) exposure to COVID-19; Z99.81 Dependence on supplemental oxygen; Z87.891 Personal history of nicotine dependence; Z79.01 Long term (current) use of anticoagulants; Z79.02 Long term (current) use of antithrombotics/antiplatelets; Z79.620 Long term (current) use of immunosuppressive biologic; Z79.890 Hormone replacement therapy; Z79.899 Other long term (current) drug therapy
CPT/HCPCS: 0241U; 36415; 71046; 80048; 80053; 81001; 82272; 82607; 82728; 82746; 83540; 83880; 84484; 85014; 85018; 85025; 85045; 85610; 86850; 86900; 86901; 86923; 93005; 94640; 97162; 99285; C1758; J0456; J0696; J1756; J1940; P9016

== ENCOUNTER → 2023-11-10 06:46 | Outpatient (BNV) | payer MEDICARE, SELFPAY | PROVIDERS: Admitting Provider Physician Assistant; Emergency Provider Emergency Medicine; PCP Internal Medicine; Visit Provider Internal Medicine Cardiovascular Disease | DX: R94.31 Abnormal electrocardiogram [ECG] [EKG] (principal) | CPT/HCPCS: 93010 ==

== ENCOUNTER → 2023-11-10 11:01 | Outpatient (BNV) | payer MEDICARE, SELFPAY | PROVIDERS: Admitting Provider Physician Assistant; Emergency Provider Emergency Medicine; PCP Internal Medicine; Visit Provider Physician Assistant | DX: R33.8 Other retention of urine (principal); I50.9 Heart failure, unspecified; D63.8 Anemia in other chronic diseases classified elsewhere | CPT/HCPCS: 99223; 99232; 99239 ==

== ENCOUNTER 2023-11-19 10:42 | Outpatient (REF) | payer MEDICARE, SELFPAY ==
[2023-11-14 13:52] VITALS: BMI 32.0
[2023-11-19 13:35] LABS: MANUAL DIFF FLAG NO
[2023-11-19 13:58] LABS: B Type Natriuretic Peptide 428 pg/mL (<100)
[2023-11-19 14:06] LABS: Basophils Percent Auto 0.1 % (0-2); Eosinophils Absolute Auto 0.1 X10*3/uL (0.0-0.4); Eosinophils Percent Auto 1.1 % (0-4); Hematocrit 30.2 % (42.0-52.0); Hemoglobin 9.1 g/dl (14.0-18.0); Imm Gran Abs Auto 0.02 X10*3/uL (0.00-0.03); Imm Gran Pct Auto 0.3 % (0.0-0.4); Immature Retic Fraction 27.6 % (2.3-13.4); Lymphocytes Absolute Auto 0.7 X10*3/uL (1.2-4.9); Lymphocytes Percent Auto 8.7 % (20-40); Mean Corpuscular HGB Conc 30.1 g/dl (31.0-36.0); Mean Corpuscular Hemoglobin 29.9 pg (27.0-33.0); Mean Corpuscular Volume 99.3 fL (80.0-98.0); Mean Platelet Volume 10.6 fL (9.4-12.4); Monocytes Absolute Auto 0.5 X10*3/uL (0.1-1.2); Monocytes Percent Auto 7.3 % (2-11); Neutrophils Absolute Auto 6.1 x10*3/uL (2.0-8.3); Neutrophils Percent Auto 82.5 % (45-73); Platelet Count 186 X10*3/uL (160-400); Red Blood Count 3.04 X10*6/uL (4.60-5.80); Red Cell Distribution Width 17.7 % (11.0-16.0); Retic HGB Equivalent 30.6 pg (30.0-35.0); Reticulocyte Percent 3.2 % (0.5-1.8); Reticulocytes Absolute 0.096 X10*6/uL (0.026-0.095); White Blood Count 7.4 X10*3/uL (4.8-10.8)
[2023-11-19 14:31] LABS: Alanine Aminotransferase 17 U/L (0-40); Albumin Level 4.1 g/dL (3.5-5.0); Alkaline Phosphatase 127 U/L (39-117); Anion Gap 11 (12-20); Aspartate Amino Transferase 17 U/L (5-37); Bilirubin Total 0.7 mg/dL (0.0-1.0); Blood Urea Nitrogen 23 mg/dL (9-16); Calcium 9.7 mg/dL (8.4-10.2); Carbon Dioxide 29 mmol/L (22-29); Chloride 103 mmol/L (96-108); Estimated Glomerular Filt Rate > 60; Glucose Random 104 mg/dL (60-115); Iron 89 mcg/dL (45-160); Percent Iron Saturation 26 % (15-50); Potassium 3.7 mmol/L (3.3-5.1); Sodium 139 mmol/L (135-145); Total Iron Binding Capacity 343 mcg/dL (228-428); Total Protein 7.6 g/dL (6.5-8.0); Unsaturated Iron Binding 254 ug/dL
[2023-11-19 14:37] LABS: Ferritin 155 ng/mL (20-250); Free T4 (Free Thyroxine) 0.98 ng/dL (0.71-1.85); Thyroid Stimulating Hormone 1.63 uIU/mL (0.32-4.0)
[2023-11-19 14:47] LABS: Folate 9.4 ng/mL (> or = 4.0); Vitamin B12 1102 pg/mL (200-900)
== END 2023-11-19 10:43 | disposition home or self-care (01) ==
LOC: HO.HMGCLDS 10:42
PROVIDERS: PCP Internal Medicine; Visit Provider Internal Medicine
DX: D64.9 Anemia, unspecified (principal)
CPT/HCPCS: 36415; 80053; 82607; 82728; 82746; 83540; 83880; 84439; 84443; 85025; 85027; 85045

== ENCOUNTER 2023-11-21 08:40 | Outpatient (AMB) | payer MEDICARE, SELFPAY ==
[2023-11-14 13:52] VITALS: BMI 32.0
[2023-11-21 08:42] VITALS: BP 114/66; PULSE 72; O2SAT 97; BMI 30.9
--- NOTE | 2023-11-21 08:42 | MHC.PC.OV ---
Vital Signs 11/21/23 08:42 Height 5 ft 8 in Weight 203 lb 0.6 oz BMI 30.9 BP 114/66 Blood Pressure Location Lt brachial Position Sitting Pulse 72 Pulse Source Pulse Oximeter Pulse Oximetry (%) 97 Oxygen Delivery Method Nasal Cannula Oxygen Flow Rate 2 Intake Visit Reasons: [facility] 7.21 Acute CHF Intake Note: Patient is here for hospital discharge follow up. Patient was discharged from [facility] on 11/10/2023 Digital Composer Required: No Allergies Penicillins Allergy (Severe, Verified 11/21/23 08:42) Anaphylaxis hydrochlorothiazide Allergy (Unknown, Verified 11/21/23 08:42) Unknown lisinopril Allergy (Unknown, Verified 11/21/23 08:42) Unknown regadenoson [From Lexiscan] Adverse Reaction (Verified 11/21/23 08:42) Bradycardic Medication List - Last Reconciled 11/21/23 by Maritza Raphael PA-C adalimumab (Humira(CF) Pen) 40 mg subcut Q2W apixaban (Eliquis) 5 mg PO BID atorvastatin 80 mg PO BEDTIME [id number] 160-9-4.8 mcg/actuation (Breztri Aerosphere) 2 inhalations inhalation BID cholecalciferol (vitamin D3) 50 mcg PO DAILY clopidogrel 75 mg PO DAILY compress.stocking,knee,reg,med As directed 20-30 mm HG cyanocobalamin (vitamin B-12) (Vitamin B-12) 1,000 mcg PO DAILY digoxin 125 mcg PO MOWEFR 90 days diltiazem HCl CD 180 mg (0.6 x 300 mg) PO DAILY famotidine 20 mg PO BID ferrous sulfate 324 mg PO DAILY furosemide (Lasix) 20 mg PO DAILY levothyroxine 50 mcg PO QAM metoprolol tartrate 75 mg (3 x 25 mg) PO BID 30 days [OXYGEN 2 L NC keep sats > 90 As directed] [PORTABLE OXYGEN TANK As directed] tamsulosin 0.8 mg PO DAILY Tobacco use date assessed: 08/14/23 Fall risk assessment: No Falls in past year Last assessed Fall Risk: 11/21/23 Dental Screening Dental Screen Date: 05/03/23 HPI [facility] 7.21 Acute CHF HPI Details 77-year-old male with past medical history of hypothyroidism, hypercholesterolemia, hypertension, interstitial lung disease with COPD, atrial fibrillation on anticoagulation, and diabetes mellitus last seen by Dr. Delgado 07/2023 coming in for hospital follow up.? In review of the notes, patient was seen in [facility] ED 11/10/2023 for worsening dyspnea BNP was elevated at 614 and chest x-ray showed small right-sided pleural effusion with mild adjacent atelectasis he was given IV Lasix, DuoNeb, ceftriaxone, and azithromycin and admitted.? He is also found to be anemic and received transfusions.? Patient's diltiazem was decreased to 180 mg daily and continue on Lasix outpatient and following up with Cardiology.? Recommend follow up with Hematology and consider GI consult.? Discharged on 11/12/23 patient was also seen in the ER 11/04/2023 for bleeding from the tongue treated with topical TXA and discharged home. Patient was seen by Cardiology 10/2023 stable on current med regimen and recommended regular exercise.? Seen by pulmonology 10/2023 stable on current med regimen.? Seen by Urology 09/2023 Flomax discontinued and started terazosin at bedtime follow up in 8 weeks. Patient states he has seen a huge improvement in his breathing and exercise tolerance since his hospital discharge and also notes his leg swelling has decreased. No longer has shortness of breath while lying flat and has been working with pulmonary rehab. He is doing well on the dose change of diltiazem. He has followed up with cardiology since his discharge and is being seen by pulmonology and hematology in the coming month. [facility] Medical History Supplemental oxygen dependent ILD (interstitial lung disease) COPD (chronic obstructive pulmonary disease) Tubular adenoma of colon (~2021) Postoperative hypothyroidism Obesity (BMI 30-39.9) Atrial fibrillation Chest discomfort Bronchitis Hemoptysis HOLLOWAY (dyspnea on exertion) Abnormal SPEP Multinodular thyroid Swelling of left lower extremity Pulmonary nodules/lesions, multiple Ground glass opacity present on imaging of lung Wedge compression fracture of T9 vertebra (~2018) Coronary artery disease Hypertension Right renal stone Thyroid nodule Vitamin D deficiency Ascending aorta dilatation Obesity (BMI 30-39.9) Psoriasis Hypercholesterolemia Former smoker Stable angina Surgical History Status post AAA (abdominal aortic aneurysm) repair Hx of bilateral cataract extraction (~2022) History of partial thyroidectomy (~2020) History of heart artery stent (~2019) History of colonoscopy History of cardioversion (~2020) History of appendectomy History of tonsillectomy History of lung biopsy (~2016) Family History Father Heart disease Mother Throat cancer Paternal Grandfather Heart disease Social History Household Members: Spouse Housing: House Are you a primary resident care supervisor to a significant other at home: No Do you presently have visiting nurse or other home services: No Alcohol intake: former Year quit: 2014 Patient Tobacco Use Status: Former Tobacco user Tobacco use type: Cigarette Years Smoked: 50 e-Cigarette/Vaping Use: Former Use Second Hand Smoke Exposure: No Advance Directives Date on File: 09/21/20 service: No Current occupational status: retired Cognitive needs: No Hearing needs: No Vision needs: Yes Questionnaire Thrive Questionnaire Date Thrive assessed: 11/11/23 AUDIT C Alcohol Use Questionnaire (AUDIT-C) 1. How often do you have a drink containing alcohol?: Never 2. How many drinks containing alcohol do you have on a typical day when you are drinking?: 1 or 2 (0) 3. How often do you have six or more drinks on one occasion?: Never Total Score: 0 JORGE-7 AMB Questionnaire JROGE-7 Date JORGE - 7 assessed: 05/03/23 Source: Developed by Drs. Ever Nelson, Sarah Galindo, Lopez Owen and colleagues, with an educational moira from [employer]. Review of Systems Const Denies body aches, Denies chills, Denies fever(s), Denies headache(s) and Denies poor appetite Eyes Reports no additional complaints ENT Denies dysphagia, Denies dizziness, Denies headache(s) and Denies odynophagia Card Denies chest pain, Denies syncope, Denies edema, Denies irregular heart rhythm, Denies lightheadedness and Denies dyspnea Resp Denies cough and Denies dyspnea GI Denies abdominal pain, Denies constipation, Denies dysphagia, Denies diarrhea, Denies nausea, Denies odynophagia and Denies vomiting Reports no additional complaints Musc Reports no additional complaints and Denies abnormal gait Skin/Breast Reports system reviewed and no additional complaints, except as documented Neuro Denies abnormal gait, Denies dizziness, Denies syncope and Denies headache(s) Psych Reports no additional complaints Physical exam (Primary Care) Vital Signs: Last Vital Signs Pulse 72 11/21/23 08:42 BP 114/66 11/21/23 08:42 Pulse Ox 97 11/21/23 08:42 Oxygen Delivery Method Nasal Cannula 11/21/23 08:42 Oxygen Flow Rate 2 11/21/23 08:42 BMI result Body Mass Index 30.9 Tobacco/Smoking Status: Tobacco use Status Tobacco use date assessed 08/14/23 11/21/23 08:48 Patient Tobacco Use Status Former Tobacco user 11/21/23 08:48 Tobacco use type Cigarette 11/21/23 08:48 e-Cigarette/Vaping Use Former Use 11/21/23 08:48 Thrive Assessment: Date of Thrive Assessment Date Thrive assessed 11/11/23 11/21/23 08:48 Const General: cooperative, healthy appearing, comfortable and no acute distress Orientation/consciousness: patient oriented x3 HENMT Head: Yes normocephalic Ears: hearing grossly normal bilaterally General nose exam: Normal external nose present Eyes General: appearance normal, both eyes and all related structures Conjunctivae: conjunctivae normal Neck Neck: Yes full ROM and Yes no lymphadenopathy Resp Effort & Inspection: normal respiratory effort Auscultation: clear to auscultation bilaterally, no crackles, no rales, no rhonchi and no wheezes Cardio Rate: regular rate Rhythm: regular rhythm Skin General skin exam: no rashes or lesions noted Neuro General: patient oriented x3 Gait exam (Neuro): Normal gait present Extrem General: Yes normal to inspection, Yes full ROM and No edema Psych Affect: normal affect Attitude: cooperative Insight: Good insight present (Psych) Judgement: Good judgement present (Psych) Assessment and Plan Assessment & Plan (1) AAA (abdominal aortic aneurysm) without rupture: Comment: endovascular aneurysm repair on 07/16/2023 with Endologix a FX 2 device. Code(s): I71.40 - Abdominal aortic aneurysm, without rupture, unspecified Qualifiers: Abdominal aorta location: infrarenal aorta Qualified Code(s): I71.43 - Infrarenal abdominal aortic aneurysm, without rupture Plan: Patient continues to be followed up by vascular surgeon. (2) Permanent atrial fibrillation: Code(s): I48.21 - Permanent atrial fibrillation Plan: Continue with anticoagulation on Eliquis patient follows up with Cardiology. Dose change in diltiazem to 180 mg and Cardiology is aware of this change. Has been doing well on the new dose change. (3) Type 2 diabetes mellitus with hyperglycemia: Comment: Dr. Waddell and Dr. Mccord Code(s): E11.65 - Type 2 diabetes mellitus with hyperglycemia Plan: Decrease the amount of carbohydrate intake, pasta, bread, rice and potatoes are all sugar and that is aside from all the sweet stuff, remember that fruits are good but they are Sweet also. Diet control (4) COPD (chronic obstructive pulmonary disease): Code(s): J44.9 - Chronic obstructive pulmonary disease, unspecified Plan: Continue with oxygen as well as the inhalers patient follows up with Pulmonary. (5) Hypertension: Code(s): I10 - Essential (primary) hypertension Qualifiers: Hypertension type: essential hypertension Qualified Code(s): I10 - Essential (primary) hypertension Plan: Continue with blood pressure medication. Decrease salt intake and exercise patient is taking diltiazem 180 mg once a day metoprolol 75 mg twice a day (6) Hypercholesterolemia: Code(s): E78.00 - Pure hypercholesterolemia, unspecified Plan: Avoid fried foods, chicken skin, eggs, butter margarine, pastries and meat. Be it pork or beef they have a lot of cholesterol atorvastatin 80 mg once a day April 2023 last blood. Reordered for next visit. (7) Acute CHF: Code(s): I50.9 - Heart failure, unspecified Qualifiers: Heart failure type: unspecified Qualified Code(s): I50.9 - Heart failure, unspecified Plan: Patient was seen in hospital this month for acute exacerbation of CHF thought to be induced by anemia and excessive salt intake. He has been doing much better since his discharge and since starting the Lasix. He states his exercise tolerance has improved and is able to lay flat now at night. Continue to follow up with Cardiology and pulmonology. (8) Macrocytic anemia: Code(s): D53.9 - Nutritional anemia, unspecified Plan: Improvement on last blood work. Continue to follow with Hematology. Plan This note was constructed using voice recognition software. While every effort has been made to ensure accuracy and digital media manager, still areas may have been included sometimes these areas may affect the content or meeting of the given symptoms. Total time spent caring for the patient today was 35 minutes. This includes time spent before the visit reviewing the chart, time spent during the visit, and time spent after the visit and documentation. Orders: Orders Lipid Panel Today Z00.00 - Encounter for general adult medical examination without abnormal findings Hemoglobin A1c Today E11.65 - Type 2 diabetes mellitus with hyperglycemia Coding Level of Care Code Est Pt Level 4 (69564) Diagnoses Infrarenal abdominal aortic aneurysm (AAA) without rupture I71.43 Abdominal aorta location: infrarenal aorta Permanent atrial fibrillation I48.21 Type 2 diabetes mellitus with hyperglycemia E11.65 COPD (chronic obstructive pulmonary disease) J44.9 Essential hypertension I10 Hypertension type: essential hypertension Hypercholesterolemia E78.00 Acute CHF I50.9 Heart failure type: unspecified Macrocytic anemia D53.9
== END 2023-11-21 09:26 | disposition home or self-care (01) ==
PROVIDERS: PCP Internal Medicine
DX: I71.43 Infrarenal abdominal aortic aneurysm, without rupture (principal); I48.21 Permanent atrial fibrillation; E11.65 Type 2 diabetes mellitus with hyperglycemia; J44.9 Chronic obstructive pulmonary disease, unspecified; D53.9 Nutritional anemia, unspecified
CPT/HCPCS: 99214

== ENCOUNTER 2023-12-02 13:32 | Outpatient (AMB) | payer MEDICARE, SELFPAY ==
[2023-11-14 13:52] VITALS: BMI 32.0
[2023-12-02 14:00] VITALS: BP 132/72; PULSE 87; BMI 30.6
--- NOTE | 2023-12-02 14:00 | A.OFFVIS_ITS ---
Vital Signs 12/02/23 14:00 Height 5 ft 8 in Weight 201 lb 8.04 oz BMI 30.6 BP 132/72 Blood Pressure Location Lt brachial Position Sitting Pulse 87 Pulse Source Pulse Oximeter Intake Visit Reasons: f/up-ED Intake Note: f/up-ed- pt is feeling fine Abnormal Psychology Teacher Required: No Accompanied by: Self / Same As Patient Allergies Penicillins Allergy (Severe, Verified 11/21/23 08:42) Anaphylaxis hydrochlorothiazide Allergy (Unknown, Verified 11/21/23 08:42) Unknown lisinopril Allergy (Unknown, Verified 11/21/23 08:42) Unknown regadenoson [From Lexiscan] Adverse Reaction (Verified 11/21/23 08:42) Bradycardic Medication List - Last Reconciled 12/02/23 by Ja Jean-Baptiste MD adalimumab (Humira(CF) Pen) 40 mg subcut Q2W apixaban (Eliquis) 5 mg PO BID atorvastatin 80 mg PO BEDTIME hwrlsnaoqd-stanavxm-ooenybufcy 160-9-4.8 mcg/actuation (Breztri Aerosphere) 2 inhalations inhalation BID cholecalciferol (vitamin D3) 50 mcg PO DAILY clopidogrel 75 mg PO DAILY compress.stocking,knee,reg,med As directed 20-30 mm HG cyanocobalamin (vitamin B-12) (Vitamin B-12) 1,000 mcg PO DAILY digoxin 125 mcg PO MOWEFR 90 days diltiazem HCl CD 180 mg (0.6 x 300 mg) PO DAILY famotidine 20 mg PO BID ferrous sulfate 324 mg PO DAILY furosemide (Lasix) 20 mg PO DAILY levothyroxine 50 mcg PO QAM metoprolol tartrate 75 mg (3 x 25 mg) PO BID 30 days [OXYGEN 2 L NC keep sats > 90 As directed] [PORTABLE OXYGEN TANK As directed] tamsulosin 0.8 mg PO DAILY HPI Comments Details: 77-year-old gentleman here for follow-up. He is denying any chest discomfort No bleeding issues. Has been in chronic atrial fibrillation. Overall doing old without any significant bleeding issues or chest discomfort. Compliant with medications. He has dyspnea on exertion and has underlying lung disease. He is saying he has been started on supplemental oxygen which she is supposed to wear with activities. He previously had RCA PCI and his presentation was with dyspnea at that time too. He is saying that his lung disease is progressed and recently after CT scan he was told by pulmonology that he has interstitial lung disease. He is saying his breathing is worsened in the last 6 months. His denying any chest discomfort. As before using supplemental oxygen as needed. 12/10/22: He returns for follow-up. On last visit was complaining of shortness of breath. He has lung disease which is the cause for dyspnea but previously had dyspnea as an anginal equivalent to. After discussion with [facility] for stress testing and when Lexiscan in October 2022 which was normal. He is saying his breathing is at baseline. He has been using oxygen over the last several months with ambulation. He is following closely with pulmonology. No chest discomfort or any other concerning symptoms. Blood pressure control is good. He has permanent atrial fibrillation. 04/10/2023: He returns for follow-up. He is denying any significant symptoms. He is on supplemental oxygen and has been using oxygen more frequently. He has been more sedentary. His blood pressure and heart rate both were elevated in the office. He is taking his medications as before and has not missed his medications. He is complaining of some fatigue too. He said that he has not been exercising but plans to restart pulmonary rehabilitation. His repeat blood pressure was 140/80 manually. His heart rate was still in low 100s after resting. He is saying at home he has checked his heart rate before and was anywhere from 60-80. 08/14/23: He is here for follow-up. He underwent endovascular repair of abdominal aortic aneurysm successfully. He has been doing well since then. He is noticed some lower extremity edema right more than left. He is on diltiazem. He is on digoxin and the apixaban for anticoagulation. He is saying that his breathing has been worse than before specially since winter he has not exercise much. He was previously doing cardiac rehabilitation and will be restarting it. 10/31/2023: He is here for follow-up. He is status post endovascular repair of abdominal aortic aneurysm. He has been more sedentary and gets out of breath walking 10 ft at this stage. No chest discomfort. Blood pressure is well controlled. Heart rate is also well controlled in atrial fibrillation. 12/02/23: He is here for follow-up. Was seen recently when he was complaining of shortness of breath. Clinically was euvolemic and had rate controlled atrial fibrillation at that time. Subsequent to this he had worsening shortness of breath on 1 the emergency department and was noticed to have anemia as well as signs of congestive heart failure. He was transfused and diuresed and also rec eived IV iron. He is due to see Hematology. He continues to be on apixaban and Plavix. No obvious bleeding was noticed. He is saying he has a significant improvement in his shortness of breath after getting blood transfusion and iron. He is walking longer distances and feel more energetic. [facility] Medical History Supplemental oxygen dependent ILD (interstitial lung disease) COPD (chronic obstructive pulmonary disease) Tubular adenoma of colon (~2021) Postoperative hypothyroidism Obesity (BMI 30-39.9) Atrial fibrillation Chest discomfort Bronchitis Hemoptysis HOLLOWAY (dyspnea on exertion) Abnormal SPEP Multinodular thyroid Swelling of left lower extremity Pulmonary nodules/lesions, multiple Ground glass opacity present on imaging of lung Wedge compression fracture of T9 vertebra (~2018) Coronary artery disease Hypertension Right renal stone Thyroid nodule Vitamin D deficiency Ascending aorta dilatation Obesity (BMI 30-39.9) Psoriasis Hypercholesterolemia Former smoker Stable angina Surgical History Status post AAA (abdominal aortic aneurysm) repair Hx of bilateral cataract extraction (~2022) History of partial thyroidectomy (~2020) History of heart artery stent (~2019) History of colonoscopy History of cardioversion (~2020) History of appendectomy History of tonsillectomy History of lung biopsy (~2016) Family History Father Heart disease Mother Throat cancer Paternal Grandfather Heart disease Social History Household Members: Spouse Housing: House Are you a primary director of medicare to a significant other at home: No Do you presently have visiting nurse or other home services: No Alcohol intake: former Year quit: 2014 Patient Tobacco Use Status: Former Tobacco user Tobacco use type: Cigarette Years Smoked: 50 e-Cigarette/Vaping Use: Former Use Second Hand Smoke Exposure: No Advance Directives Date on File: 09/21/20 service: No Current occupational status: retired Cognitive needs: No Hearing needs: No Vision needs: Yes Review of Systems Const Denies chills, Denies fatigue, Denies fever(s), Denies frequent falls, Denies weakness, Denies weight gain and Denies weight loss ENT Denies dizziness Card Denies chest pain, Denies leg edema, Denies lightheadedness, Denies palpitations, Denies dyspnea and Denies dyspnea on exertion Resp Denies cough, Denies dyspnea and Denies dyspnea on exertion GI Denies hematochezia Musc Denies abnormal gait, Denies muscle weakness, Denies numbness, Denies radiating pain into limb and Denies tingling Neuro Denies abnormal gait, Denies dizziness, Denies frequent falls, Denies numbness, Denies tingling and Denies weakness Endo Denies fatigue and Denies palpitations Physical Exam Vital Signs: Last Vital Signs Pulse 87 12/02/23 14:00 BP 132/72 12/02/23 14:00 BMI result Body Mass Index 30.6 GENERAL APPEARANCE: in no acute distress, pleasant. NECK: no carotid bruit, no jugular venous distention. SKIN: no suspicious lesions, warm and dry. HEART: no murmurs, irregular rate and rhythm. LUNGS: Clear to auscultation. ABDOMEN: soft, nontender. EXTREMITIES: Mild edema. PERIPHERAL PULSES: equal. NEUROLOGIC: No gross deficits, AAO X 3 Assessment & Plan Assessment & Plan (1) Hypertension: Code(s): I10 - Essential (primary) hypertension Category: Medical Qualifiers: Hypertension type: essential hypertension Qualified Code(s): I10 - Essential (primary) hypertension (2) Stable angina: Code(s): I20.8 - Other forms of angina pectoris Category: Medical (3) Chronic atrial fibrillation: Code(s): I48.20 - Chronic atrial fibrillation, unspecified Category: Medical Plan Pleasant 77 year gentleman who is here for follow-up. He has known history of coronary disease with previous right coronary artery PCI. He also has atrial fibrillation and has been treated as permanent AFib at this point with the rate controlled. He was noticed to be anemic recently and went to emergency department and received blood transfusion and was diuresed for congestive heart failure. Since then he has felt significantly better and his shortness of breath has improved significantly. He is going to see Hematology for further workup. Clinically he is euvolemic at this point. His diltiazem dose was decreased to 180 mg in the hospital. I think he should continue the same dose for now. Continue digoxin Saturday and Saturday along with metoprolol. I think Plavix should be stopped given his anemia and he should be treated with apixaban only. Follow-up with us in few months. Thank you for allowing me to participate in the care of your patient. Please feel free to contact me if you have any questions. Medications: New diltiazem HCl ER 180 mg PO DAILY 90 caps 3RF Discontinued diltiazem HCl CD Discontinued Reason: None 180 mg (0.6 x 300 mg) PO DAILY 90 caps 3RF Coding Level of Care Code Est Pt Level 4 (29743) Diagnoses Essential hypertension I10 Hypertension type: essential hypertension Stable angina I20.8 Chronic atrial fibrillation I48.20
== END 2023-12-02 14:51 | disposition home or self-care (01) ==
PROVIDERS: PCP Internal Medicine; Visit Provider Internal Medicine Cardiovascular Disease
DX: I10 Essential (primary) hypertension (principal); I20.89 Other forms of angina pectoris; I48.20 Chronic atrial fibrillation, unspecified
CPT/HCPCS: 99214

== ENCOUNTER → 2023-12-02 13:32 | Outpatient (BNVA) | payer MEDICARE, SELFPAY ==
[2023-11-14 13:52] VITALS: BMI 32.0
== END ==
PROVIDERS: PCP Internal Medicine; Visit Provider Internal Medicine Cardiovascular Disease
DX: I48.20 Chronic atrial fibrillation, unspecified (principal); I20.89 Other forms of angina pectoris; I10 Essential (primary) hypertension; Z95.5 Presence of coronary angioplasty implant and graft; Z98.890 Other specified postprocedural states
CPT/HCPCS: 99212

== ENCOUNTER 2023-12-11 08:27 | Outpatient (AMB) | payer MEDICARE, SELFPAY ==
[2023-11-14 13:52] VITALS: BMI 32.0
--- NOTE | 2023-12-11 08:45 | MHC.OFFVIS ---
Intake Visit Reasons: 8w follow up Intake Note: Patient presents for follow up on: Renal Cyst, Nocturia, and Frequency Urology Medications: Tamsulosin Blood Thinner: Apixaban PVR: 120ml's Human Resources Manager Required: No Accompanied by: Self / Same As Patient Allergies Penicillins Allergy (Severe, Verified 12/12/23 08:43) Anaphylaxis hydrochlorothiazide Allergy (Unknown, Verified 12/12/23 08:43) Unknown lisinopril Allergy (Unknown, Verified 12/12/23 08:43) Unknown regadenoson [From Lexiscan] Adverse Reaction (Verified 12/12/23 08:43) Bradycardic Medication List - Last Reconciled 12/11/23 by EVA Rodriguez adalimumab (Humira(CF) Pen) 40 mg subcut Q2W apixaban (Eliquis) 5 mg PO BID atorvastatin 80 mg PO BEDTIME saihapxzcs-wzujaafx-qlovwxhzic 160-9-4.8 mcg/actuation (Breztri Aerosphere) 2 inhalations inhalation BID cholecalciferol (vitamin D3) 50 mcg PO DAILY compress.stocking,knee,reg,med As directed 20-30 mm HG cyanocobalamin (vitamin B-12) (Vitamin B-12) 1,000 mcg PO DAILY digoxin 125 mcg PO MOWEFR 90 days diltiazem HCl ER 180 mg PO DAILY famotidine 20 mg PO BID ferrous sulfate 324 mg PO DAILY ferrous sulfate 325 mg PO DAILY furosemide (Lasix) 20 mg PO DAILY levothyroxine 50 mcg PO QAM metoprolol tartrate 75 mg (3 x 25 mg) PO BID 30 days [OXYGEN 2 L NC keep sats > 90 As directed] [PORTABLE OXYGEN TANK As directed] tamsulosin 0.8 mg PO DAILY HPI Comments Details: Pablito is a very pleasant 77-year-old male patient of Dr. Delgado. He has a past medical history of interstitial lung disease, COPD, hypothyroidism, obesity, paroxysmal atrial fibrillation, pulmonary nodules, coronary artery disease, hypertension, nephrolithiasis, vitamin-D deficiency, psoriasis, hypercholesteremia, and former smoker. He presents to the office today for follow-up of his lower urinary tract symptoms. Of note, patient was seen approximately 2 months ago at which time his Flomax 0.8 mg daily was changed to terazosin. However, he has since stopped taking the terazosin as he felt this made him significantly dizzy. He does continue to report episodes of nocturia 3-5 times per night. He discusses attempting lifestyle modifications with decreasing fluids 2-3 hours prior to bed and feels this has not been helpful as he continues to experience increased episodes of nocturia. Previous workup has included a retroperitoneal ultrasound noting right kidney with no calculi, and or hydronephrosis. 1.0 x 1.1 x 1.2 cm simple cyst in the mid kidney is seen. No imaging follow-up is recommended per radiology report left kidney with no lesions, and or hydronephrosis. Multiple echogenic foci within the kidney, nonshadowing, without twinkle artifact, likely represent vascular calcifications. The bladder is well distended and normal. Bilateral ureteral jets are demonstrated. Pre void bladder volume is approximately 200 mL. Postvoid bladder volume is approximately 100 mL. The prostate is normal in size with a volume of 22 mL. He otherwise denies incontinence, hematuria, dysuria, foul smelling urine, changes to urinary stream, flank pain, fever, and or chills. In office urinalysis results reviewed with the patient today 3+ leukocytes negative nitrates. PVR 120mLs. PSAs are as follows: PSAs: 05/12 0.2, 02/09 0.2, 03/14 0.2 A1c: 08/13 5.6 Discussed at length potential causes nocturia. Discussed causes and affects of incomplete bladder emptying. He discusses his recent hospitalization approximately 1 month ago for congestive heart failure at which time he was noted to have increased PVR and had a Lassiter throughout his hospital stay however voiding trial was performed prior to discharge and patient was able to independently void. Patient otherwise denies any bothersome urinary issues or concerns at this time. [facility] Medical History Supplemental oxygen dependent ILD (interstitial lung disease) COPD (chronic obstructive pulmonary disease) Tubular adenoma of colon (~2021) Postoperative hypothyroidism Obesity (BMI 30-39.9) Atrial fibrillation Chest discomfort Bronchitis Hemoptysis HOLLOWAY (dyspnea on exertion) Abnormal SPEP Multinodular thyroid Swelling of left lower extremity Pulmonary nodules/lesions, multiple Ground glass opacity present on imaging of lung Wedge compression fracture of T9 vertebra (~2018) Coronary artery disease Hypertension Right renal stone Thyroid nodule Vitamin D deficiency Ascending aorta dilatation Obesity (BMI 30-39.9) Psoriasis Hypercholesterolemia Former smoker Stable angina Surgical History Status post AAA (abdominal aortic aneurysm) repair Hx of bilateral cataract extraction (~2022) History of partial thyroidectomy (~2020) History of heart artery stent (~2019) History of colonoscopy History of cardioversion (~2020) History of appendectomy History of tonsillectomy History of lung biopsy (~2016) Family History Father Heart disease Mother Throat cancer Paternal Grandfather Heart disease Social History Household Members: Spouse Housing: House Are you a primary medicare compliance auditor to a significant other at home: No Do you presently have visiting nurse or other home services: No Alcohol intake: former Year quit: 2014 Patient Tobacco Use Status: Former Tobacco user Tobacco use type: Cigarette Years Smoked: 50 e-Cigarette/Vaping Use: Former Use Second Hand Smoke Exposure: No Advance Directives Date on File: 09/21/20 service: No Current occupational status: retired Cognitive needs: No Hearing needs: No Vision needs: Yes Review of Systems Eyes Reports no additional complaints ENT Reports no additional complaints Card Reports as per HPI Resp Reports as per HPI GI Reports as per HPI Reports as per HPI Musc Reports as per HPI Neuro Reports as per HPI Psych Reports no additional complaints Endo Reports as per HPI Physical Exam Const General: cooperative, comfortable, no acute distress, well developed, alert and awake Orientation/consciousness: patient oriented x3 Limitations: other limitations (O2 dependent NC) HEENT Head: Yes normal to inspection, Yes normocephalic and Yes atraumatic Ears: hearing grossly normal bilaterally Eyes General: appearance normal, both eyes and all related structures Neck Neck: Yes normal visual inspection and Yes trachea midline Chest Chest palpation & inspection: normal inspection of the chest Resp Effort & Inspection: normal respiratory effort and able to speak in complete sentences Cardio Rate: regular rate GI Inspection: Yes normal to inspection General: Yes no CVA tenderness Back/Spine/Pelvis Back: no CVA tenderness Skin General skin exam: no rashes or lesions noted Neuro General: patient oriented x3 Extrem General: Yes normal to inspection Psych Appearance: grossly normal and well kempt Mental Status: mental status grossly normal Speech and movement: Normal speech and movement present and Clear speech present Affect: normal affect Attitude: cooperative Thought process: Normal thought process present Thought content: Normal thought content present Insight: Fair insight present (Psych) Judgement: Fair judgement present (Psych) Office Procedures Post Void Residual Post Residual Void Post Void Residual (PVR): 120 [id number] Void Residual by ultrasound Results AMB Urinalysis, Automated UA Leukoctes 500 Kiana/uL Last Edit by NanoAntibioticsjoseph Mengvaleria on 12/11/23 09:04 UA Nitrite Last Edit by Alektronavaleria on 12/11/23 09:04 UA Urobilinogen 0.2 mg/dL Last Edit by HelioVolt on 12/11/23 09:04 UA Protein 0 mg/dL Last Edit by Alektronavaleria on 12/11/23 09:04 UA pH 6.0 Last Edit by Alektronavaleria on 12/11/23 09:04 UA Blood 10 Sam/uL Last Edit by Alektronavaleria on 12/11/23 09:04 UA Specific [place] 1.010 Last Edit by Alektronavaleria on 12/11/23 09:04 UA Ketone Last Edit by HelioVolt on 12/11/23 09:04 UA Bilirubin 0 mg/dL Last Edit by Alektronavaleria on 12/11/23 09:04 UA Glucose 0 mg/dL Last Edit by Alektronavaleria on 12/11/23 09:04 Results Reviewed Results Reviewed: Laboratory Last Values Urine pH (Auto) 6.0 12/11/23 08:47 Specific [place] (Auto) 1.010 12/11/23 08:47 Urine Protein (Auto) 0 mg/dL 12/11/23 08:47 Glucose (UA)(Auto) 0 mg/dL 12/11/23 08:47 Urine Blood (Auto) 10 Sam/uL 12/11/23 08:47 Urine Bilirubin (Auto) 0 mg/dL 12/11/23 08:47 Urine Urobilinogen (Auto) 0.2 mg/dL 12/11/23 08:47 Leukocyte Esterase (Auto) 500 Kiana/uL 12/11/23 08:47 Assessment & Plan Assessment & Plan (1) Acute urinary retention: Code(s): R33.8 - Other retention of urine Category: Medical (2) Nocturia: Code(s): R35.1 - Nocturia Category: Medical (3) UTI (urinary tract infection): Code(s): N39.0 - Urinary tract infection, site not specified Category: Medical Plan In office urinalysis results reviewed with the patient today; as noted above; will send for urine culture; will await results for potential treatment. Discussed further treatment options to include trial of bethanechol however patient discusses his reluctant see given side effect of terazosin during last office visit. Discussed at length potential causes of nocturia as well as incomplete bladder emptying. Patient currently denies any UTI like symptoms. Continue Flomax as discussed and prescribed Discussed attempting to double void to assist with incomplete bladder emptying. Follow-up in office cystoscopy for further assessment evaluation Follow-up per doctor's; or sooner with any issues, concerns, and or questions. Orders: Orders Urine Culture 12/11/23 N39.0 - Urinary tract infection, site not specified AMB Urinalysis Automated 12/11/23 Z13.9 - Encounter for screening, unspecified AMB Post Void Residual by ultrasound 12/11/23 R33.8 - Other retention of urine Patient Instructions: The patient had an opportunity to ask questions regarding the treatment plan. All questions were answered. Physical exam, labs, and imaging were discussed and reviewed in detail. As well as risks, benefits, and discussion of treatment choices. No major barriers to understanding were identified. The patient expressed understanding and agreement with the above treatment plan. The patient was made aware they should contact our office by phone for worsening of their current condition, the appearance of new symptoms, or with any questions or concerns. Compliance is encouraged with any medications and follow up testing that is ordered. It is a privilege to be allowed the opportunity to participate in? your urological care.? Again, if you have any questions or concerns If you have any questions or concerns please do not hesitate to contact me. The office is [phone]. This note is constructed using voice recognition software. While every effort has been made to ensure accuracy shirt creaser errors may have been included. Yours sincerely, EVA Rodriguez Coding Level of Care Code Est Pt Level 4 (44038) Complex EM visit Add On G2211 Diagnoses Acute urinary retention R33.8 Nocturia R35.1 UTI (urinary tract infection) N39.0 CPT Codes Post Residual Void - PVR CPT Code: 93024-Fbwx Void Residual by ultrasound ([id number])
== END 2023-12-11 09:12 | disposition home or self-care (01) ==
PROVIDERS: PCP Internal Medicine; Visit Provider Nurse Practitioner Family
DX: R33.8 Other retention of urine (principal); R35.1 Nocturia; N39.0 Urinary tract infection, site not specified
CPT/HCPCS: 99214; G2211

== ENCOUNTER 2023-12-11 08:27 | Outpatient (REF) | payer MEDICARE, SELFPAY ==
[2023-11-14 13:52] VITALS: BMI 32.0
== END 2023-12-11 08:28 | disposition home or self-care (01) ==
LOC: HO.LNP 08:27
PROVIDERS: PCP Internal Medicine; Visit Provider Nurse Practitioner Family
DX: R33.8 Other retention of urine (principal); N39.0 Urinary tract infection, site not specified; R35.1 Nocturia
CPT/HCPCS: 51798; 81003; 87086; 87088; 87186; 99212

== ENCOUNTER 2023-12-12 08:36 | Outpatient (AMB) | payer MEDICARE, SELFPAY ==
[2023-11-14 13:52] VITALS: BMI 32.0
--- NOTE | 2023-12-12 08:42 | MHC.OFFVIS ---
Intake Visit Reasons: f/u s/p CTA Abd/pelvis 10/23/23 Allergies Penicillins Allergy (Severe, Verified 12/12/23 08:43) Anaphylaxis hydrochlorothiazide Allergy (Unknown, Verified 12/12/23 08:43) Unknown lisinopril Allergy (Unknown, Verified 12/12/23 08:43) Unknown regadenoson [From Lexiscan] Adverse Reaction (Verified 12/12/23 08:43) Bradycardic HPI HPI f/u s/p CTA Abd/pelvis 10/23/23: Details: Very pleasant 78-year-old gentleman presents for routine surveillance follow-up status post aortic endograft placement. This is his [address] scan follow-up. He has been doing well in terms of his aorta. Of note he was admitted to the hospital on 11/10/2023 for concerns of shortness of breath. He was subsequently worked up and treated. Does have an Hematology-Oncology evaluation tomorrow. Now presents to us for follow-up with CT scan. [facility] Medical History Supplemental oxygen dependent ILD (interstitial lung disease) COPD (chronic obstructive pulmonary disease) Tubular adenoma of colon (~2021) Postoperative hypothyroidism Obesity (BMI 30-39.9) Atrial fibrillation Chest discomfort Bronchitis Hemoptysis HOLLOWAY (dyspnea on exertion) Abnormal SPEP Multinodular thyroid Swelling of left lower extremity Pulmonary nodules/lesions, multiple Ground glass opacity present on imaging of lung Wedge compression fracture of T9 vertebra (~2018) Coronary artery disease Hypertension Right renal stone Thyroid nodule Vitamin D deficiency Ascending aorta dilatation Obesity (BMI 30-39.9) Psoriasis Hypercholesterolemia Former smoker Stable angina Surgical History Status post AAA (abdominal aortic aneurysm) repair Hx of bilateral cataract extraction (~2022) History of partial thyroidectomy (~2020) History of heart artery stent (~2019) History of colonoscopy History of cardioversion (~2020) History of appendectomy History of tonsillectomy History of lung biopsy (~2016) Family History Father Heart disease Mother Throat cancer Paternal Grandfather Heart disease Social History Household Members: Spouse Housing: House Are you a primary career coordinator to a significant other at home: No Do you presently have visiting nurse or other home services: No Alcohol intake: former Year quit: 2014 Patient Tobacco Use Status: Former Tobacco user Tobacco use type: Cigarette Years Smoked: 50 e-Cigarette/Vaping Use: Former Use Second Hand Smoke Exposure: No Advance Directives Date on File: 09/21/20 service: No Current occupational status: retired Cognitive needs: No Hearing needs: No Vision needs: Yes Review of Systems Const All systems reviewed & are unremarkable except as noted in HPI and below Reports no additional complaints ENT Reports Normal hearing present Card Denies chest pain, Denies chest pain at rest, Denies chest pain with activity and Denies pedal edema Resp Denies cough GI Denies abdominal pain Musc Denies abnormal gait, Denies muscle cramps and Denies radiating pain into limb Skin/Breast Denies skin ulcer and Denies wounds Neuro Reports Normal hearing present and Denies abnormal gait Psych Reports no additional complaints Physical Exam Const General: cooperative, healthy appearing and comfortable Orientation/consciousness: oriented to person, oriented to place and oriented to time HEENT Head: Yes normal to inspection Neck Neck: Yes normal visual inspection Carotids: no bruits Chest Chest palpation & inspection: normal inspection of the chest Resp Effort & Inspection: normal respiratory effort and able to speak in complete sentences Auscultation: clear to auscultation bilaterally, no crackles, no rales, no rhonchi and no wheezes Cardio Rate: regular rate Rhythm: regular rhythm Heart sounds: S1 normal heart sound present and S2 normal heart sound present Bruits: no carotid bruits Peripheral pulses: Peripheral pulses 2+ throughout GI Inspection: Yes normal to inspection Skin Wounds: no wounds Hair: normal Neuro General: oriented to person, oriented to place and oriented to time Cranial nerves: Yes CN's II-XII intact bilaterally and Yes Normal hearing present Cognition (Neuro): normal cognition Motor exam (neuro): 5/5 motor strength present throughout Extrem Other: venous exam: No significant superficial varicosities or spider telangiectasias, minimal edema General: No clubbing, No cyanosis and No edema Psych Appearance: grossly normal Mental Status: mental status grossly normal Speech and movement: Normal speech and movement present Results Reviewed Results Reviewed: CT scan dated 10/23/2023 demonstrates stable aortic endograft with no significant endoleak. AP dimension is 5.7 cm written report and images were reviewed. Assessment & Plan Assessment & Plan (1) AAA (abdominal aortic aneurysm) without rupture: Comment: endovascular aneurysm repair on 07/16/2023 with Endologix a FX 2 device. Code(s): I71.40 - Abdominal aortic aneurysm, without rupture, unspecified Category: Medical Qualifiers: Abdominal aorta location: infrarenal aorta Qualified Code(s): I71.43 - Infrarenal abdominal aortic aneurysm, without rupture Plan: In short patient has stable aortic endograft on CT scan. We have discussed the pathophysiology of aortic aneurysms and the risk of ruptures. We have discussed rupture risk based on size. In addition we have discussed conservative measures and risk factor modificatio. the patient is scheduled for surveillance follow-up in approximately 6 months. Thank you for allowing us to participate in the care of this patient Please note a longitudinal relationship has been created with the patient and we have been following and surveillance this chronic condition. Orders: Orders CT angio abdomen pelvis 6 Months I71.43 - Infrarenal abdominal aortic aneurysm, without rupture Blood Urea Nitrogen 6 Months I71.43 - Infrarenal abdominal aortic aneurysm, without rupture Creatinine 6 Months I71.43 - Infrarenal abdominal aortic aneurysm, without rupture Coding Level of Care Code Est Pt Level 4 (52977) Complex EM visit Add On G2211 Diagnoses Infrarenal abdominal aortic aneurysm (AAA) without rupture I71.43 Abdominal aorta location: infrarenal aorta
== END 2023-12-12 09:10 | disposition home or self-care (01) ==
PROVIDERS: PCP Internal Medicine; Visit Provider Surgery Vascular Surgery
DX: I71.43 Infrarenal abdominal aortic aneurysm, without rupture (principal)
CPT/HCPCS: 99214; G2211

== ENCOUNTER → 2023-12-12 08:36 | Outpatient (BNVA) | payer MEDICARE, SELFPAY ==
[2023-11-14 13:52] VITALS: BMI 32.0
== END ==
PROVIDERS: PCP Internal Medicine; Visit Provider Surgery Vascular Surgery
DX: I71.43 Infrarenal abdominal aortic aneurysm, without rupture (principal)
CPT/HCPCS: 99212

== ENCOUNTER 2023-12-25 06:03 | Outpatient (REF) | payer MEDICARE, SELFPAY ==
[2023-11-14 13:52] VITALS: BMI 32.0
[2023-12-25 10:16] LABS: Estimated Average Glucose 108 mg/dL; Hemoglobin A1C 92.2431 umol/L; Hemoglobin A1c % 5.4 % (<6.0)
[2023-12-25 10:19] LABS: Cholesterol 101 mg/dL (<200); HDL Cholesterol 37 mg/dL (>40); LDL Cholesterol Calculated 40 mg/dL (<100); Triglycerides 122 mg/dL (<150)
== END 2023-12-25 06:04 | disposition home or self-care (01) ==
LOC: HO.HMGCLDS 06:03
PROVIDERS: PCP Internal Medicine
DX: Z00.00 Encounter for general adult medical examination without abnormal findings (principal); E11.65 Type 2 diabetes mellitus with hyperglycemia
CPT/HCPCS: 36415; 80061; 83036

== ENCOUNTER 2023-12-31 08:21 | Outpatient (AMB) | payer MEDICARE, SELFPAY ==
[2023-11-14 13:52] VITALS: BMI 32.0
[2023-12-31 08:27] VITALS: BP 104/52; PULSE 83; O2SAT 96
--- NOTE | 2023-12-31 08:27 | A.OFFPC_ITS ---
Vital Signs 12/31/23 08:27 Height 5 ft 8 in Weight 197 lb BMI 30.0 BP 104/52 L Blood Pressure Location Lt brachial Position Sitting Pulse 83 Pulse Source Pulse Oximeter Pulse Oximetry (%) 96 Oxygen Delivery Method Nasal Cannula Intake Visit Reasons: DM, HTN , CAD, Allergies Penicillins Allergy (Severe, Verified 12/31/23 08:27) Anaphylaxis hydrochlorothiazide Allergy (Unknown, Verified 12/31/23 08:27) Unknown lisinopril Allergy (Unknown, Verified 12/31/23 08:27) Unknown regadenoson [From Lexiscan] Adverse Reaction (Verified 12/31/23 08:27) Bradycardic Medication List - Last Reconciled 12/31/23 by Oswaldo Delgado MD adalimumab (Humira(CF) Pen) 40 mg subcut Q2W apixaban (Eliquis) 5 mg PO BID atorvastatin 80 mg PO BEDTIME [id number]-[id number]-klpnbnygrw 160-9-4.8 mcg/actuation (Breztri Aerosphere) 2 inhalations inhalation BID cholecalciferol (vitamin D3) 50 mcg PO DAILY compress.stocking,knee,reg,med As directed 20-30 mm HG cyanocobalamin (vitamin B-12) (Vitamin B-12) 1,000 mcg PO DAILY digoxin 125 mcg PO MOWEFR 90 days diltiazem HCl ER 180 mg PO DAILY famotidine 20 mg PO BID 90 days ferrous sulfate 325 mg PO DAILY 90 days furosemide (Lasix) 20 mg PO DAILY levothyroxine 50 mcg PO QAM metoprolol tartrate 75 mg (3 x 25 mg) PO BID 30 days nitrofurantoin macrocrystal 100 mg PO BID 14 days [OXYGEN 2 L NC keep sats > 90 As directed] [PORTABLE OXYGEN TANK As directed] tamsulosin 0.8 mg PO DAILY Tobacco use date assessed: 08/14/23 Fall risk assessment: No Falls in past year Last assessed Fall Risk: 12/31/23 Dental Screening Dental Screen Date: 05/03/23 HPI DM, HTN , CAD, HPI Details 78-year-old obese male with multiple med ical problems atrial fibrillation diabetes mellitus controlled COPD hypertension hypercholesterolemia congestive heart failure and AAA last seen in 11/21/2023. Patient's colonoscopy is up-to-date May 2021. Stable ascending aorta dilatation at 4.3 cm last 03/11/2023. Review of the notes has seen hematology oncology for macrocytic anemia and pulmonary nodules anemia of chronic disease presently on iron. And continue to follow CT chest 05/2023 continue to follow-up with Pulmonary. Patient also has seen vascular surgeon in November 2023. Had an aneurysm repair in June 2023 surveillance every 6 months. Patient has also seen urology for nocturia and frequency on tamsulosin, double voiding. Patient did see Cardiology also this November recently in the hospital for shortness of breath had transfusion and iron. Atrial fibrillation is controlled digoxin 3 times a week. Advise Plavix to be stopped [facility] Medical History (Updated 12/31/23 @ 09:02 by Oswaldo Delgado MD) Atrial fibrillation with rapid ventricular response Supplemental oxygen dependent ILD (interstitial lung disease) COPD (chronic obstructive pulmonary disease) Tubular adenoma of colon (~2021) Postoperative hypothyroidism Obesity (BMI 30-39.9) Atrial fibrillation Chest discomfort Bronchitis Hemoptysis HOLLOWAY (dyspnea on exertion) Abnormal SPEP Multinodular thyroid Swelling of left lower extremity Pulmonary nodules/lesions, multiple Ground glass opacity present on imaging of lung Wedge compression fracture of T9 vertebra (~2018) Coronary artery disease Hypertension Right renal stone Thyroid nodule Vitamin D deficiency Ascending aorta dilatation Obesity (BMI 30-39.9) Psoriasis Hypercholesterolemia Former smoker Stable angina Surgical History Status post AAA (abdominal aortic aneurysm) repair Hx of bilateral cataract extraction (~2022) History of partial thyroidectomy (~2020) History of heart artery stent (~2019) History of colonoscopy History of cardioversion (~2020) History of appendectomy History of tonsillectomy History of lung biopsy (~2016) Family History Father Heart disease Mother Throat cancer Paternal Grandfather Heart disease Social History Household Members: Spouse Housing: House Are you a primary post acute care nurse practitioner to a significant other at home: No Do you presently have visiting nurse or other home services: No Alcohol intake: former Year quit: 2014 Patient Tobacco Use Status: Former Tobacco user Tobacco use type: Cigarette Years Smoked: 50 e-Cigarette/Vaping Use: Former Use Second Hand Smoke Exposure: No Advance Directives Date on File: 09/21/20 service: No Current occupational status: retired Cognitive needs: No Hearing needs: No Vision needs: Yes Questionnaire PHQ-9 Over the last 2 weeks, how often have you been bothered by any of the following problems? 1. Little interest or pleasure in doing things: not at all 2. Feeling down, depressed, or hopeless: not at all 3. Trouble falling or staying asleep, or sleeping too much: not at all 4. Feeling tired or having little energy: not at all 5. Poor appetite or overeating: not at all 6. Feeling bad about yourself - or that you are a failure or have let yourself or your family down: not at all 7. Trouble concentrating on things, such as reading the newspaper or watching television: not at all 8. Moving or speaking so slowly that other people could have noticed. Or the opposite - being so fidgety or restless that you have been moving around a lot more than usual: not at all 9. Thoughts that you would be better off or of hurting yourself in some way: not at all Total score: 0 Depression Screening Interpretation: Negative Depression Screening Done: Yes Source: Developed by Drs. Ever Nelson, Sarah Galindo, Lopez Owen and colleagues, with an educational moira from [employer]. Thrive Questionnaire Date Thrive assessed: 11/11/23 AUDIT C Alcohol Use Questionnaire (AUDIT-C) 1. How often do you have a drink containing alcohol?: Never 2. How many drinks containing alcohol do you have on a typical day when you are drinking?: 1 or 2 (0) 3. How often do you have six or more drinks on one occasion?: Never Total Score: 0 JORGE-7 AMB Questionnaire JORGE-7 Date JORGE - 7 assessed: 05/03/23 Source: Developed by Drs. Ever Nelson, Lopez Hidalgo and colleagues, with an educational moira from [employer]. Physical exam (Primary Care) Vital Signs: Last Vital Signs Pulse 83 12/31/23 08:27 BP 104/52 L 12/31/23 08:27 Pulse Ox 96 12/31/23 08:27 Oxygen Delivery Method Nasal Cannula 12/31/23 08:27 BMI result Body Mass Index 30.0 Tobacco/Smoking Status: Tobacco use Status Tobacco use date assessed 08/14/23 12/31/23 08:31 Patient Tobacco Use Status Former Tobacco user 12/31/23 08:31 Tobacco use type Cigarette 12/31/23 08:31 e-Cigarette/Vaping Use Former Use 12/31/23 08:31 PHQ-9: PHQ-9 Score PHQ-9: Total score 0 12/31/23 08:31 Depression Screening Interpretation: Negative Thrive Assessment: Date of Thrive Assessment Date Thrive assessed 11/11/23 12/31/23 08:31 Const General: alert; No acute distress Eyes Conjunctivae: conjunctivae normal Resp Auscultation: clear to auscultation bilaterally Cardio Rate: regular rate Rhythm: regular rhythm GI Inspection: Yes normal to inspection Extrem General: Yes normal to inspection and No edema Assessment and Plan Assessment & Plan (1) COPD (chronic obstructive pulmonary disease): Code(s): J44.9 - Chronic obstructive pulmonary disease, unspecified Plan: Continue with Breztri and albuterol as needed (2) ILD (interstitial lung disease): Code(s): J84.9 - Interstitial pulmonary disease, unspecified Plan: Continue to follow-up with Pulmonary (3) Coronary artery disease: Comment: (NSTEMI 04/2019 - JL + proximal and distal RCA rotablation) Code(s): I25.10 - Atherosclerotic heart disease of [place] coronary artery without angina pectoris Qualifiers: Coronary Disease-Associated Artery/Lesion type: [place] artery [place] vs. transplanted heart: [place] heart Associated angina: without angina Qualified Code(s): I25.10 - Atherosclerotic heart disease of [place] coronary artery without angina pectoris Plan: Control the cholesterol, weight, blood pressure, diabetes on anticoagulation Eliquis (4) Hypertension: Code(s): I10 - Essential (primary) hypertension Qualifiers: Hypertension type: essential hypertension Qualified Code(s): I10 - Essential (primary) hypertension Plan: Continue with blood pressure medication. Decrease salt intake and exercise patient presently on diltiazem 180 mg once a day metoprolol 75 mg twice a day (5) Hypercholesterolemia: Code(s): E78.00 - Pure hypercholesterolemia, unspecified Plan: Avoid fried foods, chicken skin, eggs, butter margarine, pastries and meat. Be it pork or beef they have a lot of cholesterol LDL goal of less than 70 and triglyceride of less than 150 on atorvastatin 80 mg once a day (6) Postoperative hypothyroidism: Comment: (s/p left hemithyroidectomy 03/2021) Code(s): E89.0 - Postprocedural hypothyroidism Plan: Continue with thyroid Medicaid (7) Obesity (BMI 30-39.9): Code(s): E66.9 - Obesity, unspecified Plan: Diet and exercise (8) Chronic atrial fibrillation: Code(s): I48.20 - Chronic atrial fibrillation, unspecified Plan: Continue with anticoagulation has been placed also on digoxin and diltiazem (9) Type 2 diabetes mellitus with hyperglycemia: Comment: Dr. Waddell and Dr. Mccord Code(s): E11.65 - Type 2 diabetes mellitus with hyperglycemia Plan: Decrease the amount of carbohydrate intake, pasta, bread, rice and potatoes are all sugar and that is aside from all the sweet stuff, remember that fruits are good but they are Sweet also. Controlled continue to monitor (10) Abdominal aortic aneurysm: Comment: Infrarenal CT scan June 2023 5.7 cm endovascular aneurysm repair on 07/16/2023 with Endologix a FX 2 device. Code(s): I71.40 - Abdominal aortic aneurysm, without rupture, unspecified Plan: Patient continues to follow-up with vascular surgeon (11) Anemia: Code(s): D64.9 - Anemia, unspecified Orders: Orders B Type Natriuretic Peptide 3 Months I50.9 - Heart failure, unspecified Ferritin 3 Months I50.9 - Heart failure, unspecified Thyroid Stimulating Hormone 3 Months I50.9 - Heart failure, unspecified Hemoglobin A1c 3 Months I50.9 - Heart failure, unspecified Microalbumin, Random (w Creat) 3 Months E11.65 - Type 2 diabetes mellitus with hyperglycemia, I50.9 - Heart failure, unspecified UA w Microscopic 3 Months I50.9 - Heart failure, unspecified Comprehensive Met. Panel 3 Months I50.9 - Heart failure, unspecified Complete Blood Count Auto Diff 3 Months I50.9 - Heart failure, unspecified IRON PROFILE 3 Months I50.9 - Heart failure, unspecified Reticulocyte Count 3 Months I50.9 - Heart failure, unspecified Free T4 (Free Thyroxine) 3 Months I50.9 - Heart failure, unspecified Vitamin B12 and Folate 3 Months I50.9 - Heart failure, unspecified Creatinine Urine 3 Months E11.65 - Type 2 diabetes mellitus with hyperglycemia, I50.9 - Heart failure, unspecified Medications: Changed From ferrous sulfate 325 mg PO DAILY D64.9 - Anemia, unspecified To ferrous sulfate 325 mg PO DAILY 90 days 90 tabs 1RF D64.9 - Anemia, unspecified From famotidine 20 mg PO BID 60 tabs 0RF To famotidine 20 mg PO BID 90 days 180 tabs 1RF Coding Level of Care Code Est Pt Level 4 (19835) Complex EM visit Add On G2211 Diagnoses COPD (chronic obstructive pulmonary disease) J44.9 ILD (interstitial lung disease) J84.9 Coronary artery disease involving [place] coronary artery of [place] heart without angina pectoris I25.10 Coronary Disease-Associated Artery/Lesion type: [place] artery [place] vs. transplanted heart: [place] heart Associated angina: without angina Essential hypertension I10 Hypertension type: essential hypertension Hypercholesterolemia E78.00 Postoperative hypothyroidism E89.0 Obesity (BMI 30-39.9) E66.9 Chronic atrial fibrillation I48.20 Type 2 diabetes mellitus with hyperglycemia E11.65 Abdominal aortic aneurysm I71.40 Anemia D64.9 Additional Codes PHQ-9 - 17893 - PHQ-9 Billing: ([id number])
== END 2023-12-31 09:22 | disposition home or self-care (01) ==
PROVIDERS: PCP Internal Medicine; Visit Provider Internal Medicine
DX: J44.9 Chronic obstructive pulmonary disease, unspecified (principal); J84.9 Interstitial pulmonary disease, unspecified; E11.65 Type 2 diabetes mellitus with hyperglycemia; I48.20 Chronic atrial fibrillation, unspecified; I25.10 Atherosclerotic heart disease of native coronary artery without angina pectoris; I10 Essential (primary) hypertension; E78.00 Pure hypercholesterolemia, unspecified; E89.0 Postprocedural hypothyroidism; I71.40 Abdominal aortic aneurysm, without rupture, unspecified; D64.9 Anemia, unspecified
CPT/HCPCS: 99214; G2211

== ENCOUNTER 2024-01-01 11:06 | Outpatient (REF) | payer MEDICARE, SELFPAY ==
[2023-11-14 13:52] VITALS: BMI 32.0
--- NOTE | ~2024-01-01 | CT_ITS ---
EXAMINATION: CT CHEST WITH CONTRAST CLINICAL INFORMATION: Pulmonary infiltrates. COMPARISON: June 20, 2023 TECHNIQUE: Multidetector volumetric CT imaging of the chest was obtained after the administration of 65 mL of Omnipaque 350 intravenous contrast without immediate adverse reactions. Axial MIP volume rendering provided. Sagittal and coronal reformatted images were obtained. This CT examination was performed using dose optimization techniques as appropriate, variously including the following: *Automated exposure control *Adjustment of mA and/or kV according to patient size (this includes techniques or standardized protocols for targeted exams where dose is matched to indication/reason for exam; i.e. extremities or head) *Use of iterative reconstruction technique DLP: 185 mGy-cm FINDINGS: LUNGS: Motion artifact technically degrades image quality. Moderate centrilobular and paraseptal emphysema. Subpleural reticular changes and subpleural groundglass opacities in the right hemithorax and to a lesser extent in the left upper lobe. Central bronchial wall thickening. No suspicious pulmonary nodule. No focal consolidation. Central airways are patent. MEDIASTINUM: Status post left hemithyroidectomy. Hyperdense nodule in the right thyroid lobe. Pretracheal lymph node measures 1.2 x 1.6 cm. No hilar or axillary lymphadenopathy. Ascending thoracic aorta measures 4.4 x 4.7 cm. Heart is enlarged. No pericardial effusion. Severe coronary artery calcifications. PLEURA: Small to moderate right pleural effusion. No left pleural effusion. UPPER ABDOMEN: Liver is decreased in attenuation. There are numerous scattered hepatic hypodensities that are incompletely characterized. No adrenal mass. Small hiatal hernia. Right renal cortical scarring. OSSEOUS STRUCTURES: No destructive bone lesions. CT/CT chest w IV con IMPRESSION: Subpleural reticular changes and subpleural groundglass opacities in the right hemithorax and to a lesser extent in the left upper lobe. Central bronchial wall thickening. This may represent early interstitial lung disease. Ascending thoracic aortic aneurysm measuring 4.4 x 4.7 cm. Enlarged pretracheal lymph node may be on a reactive basis. Small to moderate right pleural effusion. Electronically signed by: Surendra Chaudhari MD 01/01/2024 01:56 PM EDT
[2024-01-01] MEDS: iohexoL 350 MG/ML 100 ML INFUS..BTL 65 ML IV (12:15)
== END 2024-01-01 11:07 | disposition home or self-care (01) ==
LOC: HO.CT 11:06
PROVIDERS: PCP Internal Medicine; Visit Provider Internal Medicine Medical Oncology
DX: R91.8 Other nonspecific abnormal finding of lung field (principal)
CPT/HCPCS: 71260; Q9967

== ENCOUNTER 2024-01-21 08:32 | Outpatient (AMB) | payer MEDICARE, SELFPAY ==
[2023-11-14 13:52] VITALS: BMI 32.0
--- NOTE | 2024-01-21 08:39 | MHC.OFFVIS ---
Intake Visit Reasons: Cystoscopy(Retention) Intake Note: Patient is Present for Cystoscopy(Retention) Urology Med: Tamsulosin Antibiotic Allergy:Penicillins Blood Thinner: Eliquis Last PVR: 120ML URO- G Disposable Cystoscope lot: [id number] exp:07/31/2026 [employer] Required: No Accompanied by: Self / Same As Patient Allergies Penicillins Allergy (Severe, Verified 01/21/24 09:03) Anaphylaxis hydrochlorothiazide Allergy (Unknown, Verified 01/21/24 09:03) Unknown lisinopril Allergy (Unknown, Verified 01/21/24 09:03) Unknown regadenoson [From Lexiscan] Adverse Reaction (Verified 01/21/24 09:03) Bradycardic HPI Comments Details: It was a pleasant male. He is a patient of Dr. Dean. He seen for the following urologic conditions - lower urinary tract symptoms Here for cystoscopy - bladder with significant mucus and debris Irritation on posterior wall Recommend GreenLight laser to prostate with bladder biopsy Patient on Eliquis for AFib and supplemental oxygen Lower urinary tract symptoms Primarily nocturia 3-5 times per night Failed lifestyle modifications Had been maximized on Flomax 0.8 mg daily. Change to terazosin. Stopped since this was making him feel dizzy. Imaging - ultrasound possible multiple echogenic foci within kidney representing vascular calcifications, incomplete bladder emptying, prostate 22 cc PSAs: 05/12 0.2, 02/09 0.2, 03/14 0.2 A1c: 08/13 5.6 PFSH Medical History (Updated 01/21/24 @ 09:23 by Joel George MD) Atrial fibrillation with rapid ventricular response Supplemental oxygen dependent ILD (interstitial lung disease) COPD (chronic obstructive pulmonary disease) Tubular adenoma of colon (~2021) Postoperative hypothyroidism Obesity (BMI 30-39.9) Atrial fibrillation Chest discomfort Bronchitis Hemoptysis HOLLOWAY (dyspnea on exertion) Abnormal SPEP Multinodular thyroid Swelling of left lower extremity Pulmonary nodules/lesions, multiple Ground glass opacity present on imaging of lung Wedge compression fracture of T9 vertebra (~2018) Coronary artery disease Hypertension Right renal stone Thyroid nodule Vitamin D deficiency Ascending aorta dilatation Obesity (BMI 30-39.9) Psoriasis Hypercholesterolemia Former smoker Stable angina Surgical History Status post AAA (abdominal aortic aneurysm) repair Hx of bilateral cataract extraction (~2022) History of partial thyroidectomy (~2020) History of heart artery stent (~2019) History of colonoscopy History of cardioversion (~2020) History of appendectomy History of tonsillectomy History of lung biopsy (~2016) Family History Father Heart disease Mother Throat cancer Paternal Grandfather Heart disease Social History Household Members: Spouse Housing: House Are you a primary senior resident care director to a significant other at home: No Do you presently have visiting nurse or other home services: No Alcohol intake: former Year quit: 2014 Patient Tobacco Use Status: Former Tobacco user Tobacco use type: Cigarette Years Smoked: 50 e-Cigarette/Vaping Use: Former Use Second Hand Smoke Exposure: No Advance Directives Date on File: 09/21/20 service: No Current occupational status: retired Cognitive needs: No Hearing needs: No Vision needs: Yes Review of Systems Const Denies chills and Denies fever(s) Card Reports no additional complaints and Denies syncope Resp Denies cough GI Denies abdominal pain and Denies heartburn Reports as per HPI and Denies change in libido Neuro Denies syncope Psych Denies change in libido Endo Denies change in libido Physical Exam Const General: cooperative, healthy appearing, comfortable and no acute distress Orientation/consciousness: patient oriented x3 HEENT Face and sinus: Yes normal facial exam Mouth: moist mucous membranes Neck Neck: Yes normal visual inspection, Yes full ROM and Yes trachea midline Chest Chest palpation & inspection: normal inspection of the chest Resp Effort & Inspection: normal respiratory effort, able to speak in complete sentences and no respiratory distress GI Inspection: Yes normal to inspection Back/Spine/Pelvis Cervical Spine: normal cervical lordosis Thoracic/Lumbar Spine: thoracic and lumbar spine normal to inspection Skin General skin exam: no rashes or lesions noted Neuro General: patient oriented x3, gait normal, tone normal and moves all extremities Extrem General: Yes normal to inspection and Yes capillary refill normal Office Procedures Cystoscopy Consent Discussed risk and benefit or proposed procedure with the patient. Information consent for procedure given to the patient. Discussed technical aspects, risks, benefits and alternatives in full. Addressed all of the patient's questions and concerns regarding the procedure. The patient demonstrated knowledge and understanding. They wish to proceed with this procedure. Preparation The patient was prepped in the usual manner. A satellite communications operator was present and in the room. Genitalia was prepped with betadine solution in a sterile manner. Lidocaine Jelly 2% was placed into the urethra and 16Fr flexible Olympus cystoscope was inserted into the meatus after adequate lubrication. Procedure Cystoscopy performed using a disposable Urovue digital 16 Dutch cystoscope. Meatus circumcised Urethra anterior and posterior urethra normal Prostatic Urethra high-riding bladder neck Bladder examination with retroflexion of cystoscope Bladder Orifices normal shape and position Bladder Capacity large Trabeculations grade 3 Cellule Formation yes Diverticulum Formation - Mucosal Erythema irritated mucosa with debris and small bladder stones Bladder Tumor - [id number] DISPOSABLE SCOPE URO-G FLEXIBLE SCOPE Procedure code (CPT) selection complete Office Meds lidocaine HCl 2 % mucosal jelly in applicator Performing Provider: Joel George MD Performing Location: [facility] Administered by: David Case LPN on 01/21/24 09:03 Dose Route Admin Location Dispensed Lot Number Expiration Date NDC [employer] Sourcing Specialist 10 mL intra-urethral 10 mL nitrofurantoin monohydrate/macrocrystals 100 mg capsule Performing Provider: Joel George MD Performing Location: [facility] Administered by: David Case LPN on 01/21/24 09:03 Dose Route Admin Location Dispensed Lot Number Expiration Date NDC [employer] Specialist 100 mg PO 1 cap naproxen 500 mg tablet Performing Provider: Joel George MD Performing Location: [facility] Administered by: David Case LPN on 01/21/24 09:03 Dose Route Admin Location Dispensed Lot Number Expiration Date NDC [employer] Specialist 500 mg PO 1 tab Results AMB Urinalysis, Automated UA Leukoctes 500 Kiana/uL Last Edit by CEDRICK Cancino on 01/21/24 09:04 UA Nitrite Negative Last Edit by CEDRICK Cancino on 01/21/24 09:04 UA Urobilinogen 0.2 mg/dL Last Edit by CEDRICK Cancino on 01/21/24 09:04 UA Protein 0 mg/dL Last Edit by CEDRICK Cancino on 01/21/24 09:04 UA pH 5.5 Last Edit by CEDRICK Cancino on 01/21/24 09:04 UA Blood 0 Sam/uL Last Edit by CAROLIN CancinoA on 01/21/24 09:04 UA Specific [place] 1.010 Last Edit by Marily Galloway RMA on 01/21/24 09:04 UA Ketone Negative Last Edit by Marily Galloway RMA on 01/21/24 09:04 UA Bilirubin 0 mg/dL Last Edit by Marily Galloway RMA on 01/21/24 09:04 UA Glucose 0 mg/dL Last Edit by Marily Galloway RMA on 01/21/24 09:04 Results Reviewed Results Reviewed: Laboratory Last Values Urine pH (Auto) 5.5 01/21/24 08:52 Specific [place] (Auto) 1.010 01/21/24 08:52 Urine Protein (Auto) 0 mg/dL 01/21/24 08:52 Glucose (UA)(Auto) 0 mg/dL 01/21/24 08:52 Urine Ketones (Auto) Negative 01/21/24 08:52 Urine Blood (Auto) 0 Sam/uL 01/21/24 08:52 Urine Nitrite (Auto) Negative 01/21/24 08:52 Urine Bilirubin (Auto) 0 mg/dL 01/21/24 08:52 Urine Urobilinogen (Auto) 0.2 mg/dL 01/21/24 08:52 Leukocyte Esterase (Auto) 500 Kiana/uL 01/21/24 08:52 Assessment & Plan Assessment & Plan (1) Lower urinary tract symptoms: Code(s): R39.9 - Unspecified symptoms and signs involving the genitourinary system Category: Medical (2) Urinary urgency: Code(s): R39.15 - Urgency of urination Category: Medical (3) Bladder stones: Code(s): N21.0 - Calculus in bladder Category: Medical Plan We discussed the nature of the decision and reasonable options for performing a prostate intervention. Interventions include TURP, GreenLight laser enucleation of the prostate, GreenLight laser ablation of the prostate, transurethral incision of the prostate, and I-Tend prostate procedure. Options such as medical therapy were discussed. The relative uncertainties and benefits related to each alternate procedure were adequately discussed. General surgical risks including, but not limited to, pain, bleeding, infection, myocardial infarction, pulmonary embolus, deep vein thrombosis and cerebrovascular accident which may result in further hospitalization were discussed. Full disclosure of the procedure as well as all major risks, benefits and complications were discussed including but not limited to damage to the urethra or bladder neck, recurrent BPH, retrograde ejaculation, bladder infection, urge, de jose frequency, incomplete emptying, dysuria, remote chance of erectile dysfunction, epididymitis, and meatal stenosis. The success rate of the procedure was discussed. Success of the procedure in the short-term does not necessarily guarantee that long-term success will be maintained. Suitable follow up will need to be maintained. The patient showed understanding of discussion. An opportunity was provided for questions to be answered and wishes to proceed with the following procedure. - cystoscopy, bladder stone removal, GreenLight laser and bladder biopsy fulguration Orders: Orders AMB Urinalysis Automated Today Z13.9 - Encounter for screening, unspecified AMB Cystoscopy Today R33.8 - Other retention of urine Patient Instructions: Imaging studies, laboratory and physical exam results were discussed and reviewed in detail. No major barriers to patient understanding were identified. An opportunity to ask questions regarding the treatment plan was provided. All questions were answered. The patient expressed understanding and agreement with the above treatment plan. The patient is aware they should contact our office by phone for worsening of their current condition or the appearance of new urologic symptoms. Compliance is encouraged with any medications and followup testing that is ordered. It is a privilege to participate in the urologic care of your patient. If you have any questions or concerns regarding treatment for the above conditions, or other urologic issues, please do not hesitate to contact me. The office telephone contact is [phone]. This note is constructed using voice recognition software. While every effort has been made to ensure accuracy recruiter coordinator errors may have been included. Yours sincerely, Dr Joel George MD, [facility] - Urology Providers of Expert, Compassionate Care for the Genitourinary System Coding Level of Care Code Est Pt Level 4 (82041) Diagnoses Lower urinary tract symptoms R39.9 Urinary urgency R39.15 Bladder stones N21.0 CPT Codes Cystoscopy - CPT: [id number] ([id number])
== END 2024-01-21 09:31 | disposition home or self-care (01) ==
PROVIDERS: PCP Internal Medicine; Visit Provider Urology
DX: R39.9 Unspecified symptoms and signs involving the genitourinary system (principal); R39.15 Urgency of urination; N21.0 Calculus in bladder; R33.8 Other retention of urine; Z13.9 Encounter for screening, unspecified
CPT/HCPCS: 52000; 99214

== ENCOUNTER → 2024-01-21 08:32 | Outpatient (BNVA) | payer MEDICARE, SELFPAY ==
[2023-11-14 13:52] VITALS: BMI 32.0
== END ==
PROVIDERS: PCP Internal Medicine; Visit Provider Urology
DX: R33.8 Other retention of urine (principal); R35.1 Nocturia; R39.15 Urgency of urination; N21.0 Calculus in bladder; Z79.899 Other long term (current) drug therapy
CPT/HCPCS: 52000; 81003; 99212

== ENCOUNTER 2024-02-11 12:47 | Outpatient (AMB) | payer MEDICARE, SELFPAY ==
[2024-02-07 11:25] VITALS: BMI 32.0
[2024-02-11 13:02] VITALS: BP 117/62; PULSE 91; O2SAT 91; BMI 30.4
--- NOTE | 2024-02-11 13:02 | A.OFFVIS_ITS ---
Vital Signs 02/11/24 13:02 Height 5 ft 8 in Weight 200 lb BMI 30.4 BP 117/62 Blood Pressure Location Lt brachial Position Sitting Pulse 91 Pulse Source Doppler Pulse Oximetry (%) 91 L Oxygen Delivery Method Nasal Cannula Intake Visit Reasons: Preop-clearance /Urology Allergies Penicillins Allergy (Severe, Verified 02/11/24 13:06) Anaphylaxis hydrochlorothiazide Allergy (Unknown, Verified 02/11/24 13:06) Unknown lisinopril Allergy (Unknown, Verified 02/11/24 13:06) Unknown regadenoson [From Lexiscan] Adverse Reaction (Verified 02/11/24 13:06) Bradycardic HPI HPI Preop-clearance /Urology: Details: 78-year-old gentleman, former 100+ pack-year smoker, quit 2014, with prior history of left lower lobe nodule biopsy benign in etiology, also on Humira for underlying psoriatic arthritis, followed for COPD and abnormal CT chest that demonstrated bilateral ground-glass densities that have been waxing and waning with some underlying pulmonary fibrosis. He has been tried on prednisone with no symptomatic or radiologic response.? He has been using BrezTri with reasonable control of his symptoms.? He has been using supplemental oxygen at 2- 3 L 24x7. He is scheduled to undergo cystoscopy with laser therapy. [facility] Medical History (Updated 02/04/24 @ 18:21 by Oswaldo Delgado MD) Atrial fibrillation with rapid ventricular response Supplemental oxygen dependent ILD (interstitial lung disease) COPD (chronic obstructive pulmonary disease) Tubular adenoma of colon (~2021) Postoperative hypothyroidism Obesity (BMI 30-39.9) Atrial fibrillation Chest discomfort Bronchitis Hemoptysis HOLLOWAY (dyspnea on exertion) Abnormal SPEP Multinodular thyroid Swelling of left lower extremity Pulmonary nodules/lesions, multiple Ground glass opacity present on imaging of lung Wedge compression fracture of T9 vertebra (~2018) Coronary artery disease Hypertension Right renal stone Thyroid nodule Vitamin D deficiency Ascending aorta dilatation Obesity (BMI 30-39.9) Psoriasis Hypercholesterolemia Former smoker Stable angina Surgical History Status post AAA (abdominal aortic aneurysm) repair Hx of bilateral cataract extraction (~2022) History of partial thyroidectomy (~2020) History of heart artery stent (~2019) History of colonoscopy History of cardioversion (~2020) History of appendectomy History of tonsillectomy History of lung biopsy (~2017) Family History Father Heart disease Mother Throat cancer Paternal Grandfather Heart disease Social History Household Members: Spouse Housing: House Are you a primary day care center director to a significant other at home: No Do you presently have visiting nurse or other home services: No Alcohol intake: former Year quit: 2014 Patient Tobacco Use Status: Former Tobacco user Tobacco use type: Cigarette Years Smoked: 50 e-Cigarette/Vaping Use: Former Use Second Hand Smoke Exposure: No Advance Directives Date on File: 09/21/20 service: No Current occupational status: retired Cognitive needs: No Hearing needs: No Vision needs: Yes Review of Systems Const Denies daytime sleepiness, Denies excessive sweating, Denies fatigue, Denies fever(s), Denies lethargy, Denies malaise, Denies night sweats, Denies snoring and Denies weight loss Eyes Denies blurry vision and Denies itchy eyes ENT Denies nasal congestion, Denies post nasal drip, Denies sinus pain, Denies sinus pressure and Denies other ( Thrush) Card Denies chest pain, Denies pedal edema, Denies dyspnea, Denies orthopnea and Denies paroxysmal nocturnal dyspnea Resp Denies cough, Denies hemoptysis, Denies excessive phlegm production, Denies dyspnea, Denies snoring and Denies wheezing GI Denies abdominal pain and Denies heartburn Musc Denies myalgias, Denies arthralgias and Denies joint swelling Skin/Breast Denies rash Neuro Denies memory loss and Denies seizure-like activity Psych Denies abnormal sleep pattern, Denies anxiety and Denies memory loss Endo Denies excessive sweating, Denies fatigue and Denies heat intolerance Zhou/Lymph Denies easy bruising Aller/Immun Denies itchy eyes, Denies seasonal rhinorrhea and Denies wheezing Physical Exam Vital Signs: Last Vital Signs Pulse 91 02/11/24 13:02 BP 117/62 02/11/24 13:02 Pulse Ox 91 L 02/11/24 13:02 Oxygen Delivery Method Nasal Cannula 02/11/24 13:02 BMI result Body Mass Index 30.4 Const General: no acute distress and alert Nutritional Appearance: not obese Orientation/consciousness: Other orientation findings ( oriented) HEENT Head: Yes atraumatic Eyes General: appearance normal, both eyes and all related structures Sclerae: sclerae normal EOM: EOMs intact bilaterally Neck Neck: Yes supple Lymphatic: no lymphadenopathy noted Resp Effort & Inspection: normal respiratory effort and no use of accessory muscles Auscultation: clear to auscultation bilaterally Cardio Rate: regular rate Rhythm: regular rhythm Heart sounds: no gallops, no murmurs and no rubs Skin General skin exam: other ( warm) Extrem General: No clubbing, No cyanosis and Yes edema (Trace bilateral) Assessment & Plan Assessment & Plan (1) COPD (chronic obstructive pulmonary disease): Code(s): J44.9 - Chronic obstructive pulmonary disease, unspecified Category: Medical Plan: Well controlled on BrezTri and albuterol MDI. Continue current regimen. (2) ILD (interstitial lung disease): Code(s): J84.9 - Interstitial pulmonary disease, unspecified Category: Medical Plan: Mild underlying peripheral fibrosis. Continue to monitor clinically. (3) Supplemental oxygen dependent: Code(s): Z99.81 - Dependence on supplemental oxygen Category: Medical Plan: Continue supplemental oxygen to maintain O2 saturation of 88-92%. (4) Encounter for preoperative pulmonary examination: Code(s): Z01.811 - Encounter for preprocedural respiratory examination Category: Medical Plan: At this time patient is at low risk for pulmonary perioperative complications for the proposed cystoscopy with laser therapy either under general anesthesia, or monitored anesthesia care. Coding Level of Care Code Est Pt Level 4 (67375) Complex EM visit Add On G2211 Diagnoses COPD (chronic obstructive pulmonary disease) J44.9 ILD (interstitial lung disease) J84.9 Supplemental oxygen dependent Z99.81 Encounter for preoperative pulmonary examination Z01.811
== END 2024-02-11 13:44 | disposition home or self-care (01) ==
PROVIDERS: PCP Internal Medicine; Visit Provider Internal Medicine Pulmonary Disease
DX: J44.9 Chronic obstructive pulmonary disease, unspecified (principal); J84.9 Interstitial pulmonary disease, unspecified; Z99.81 Dependence on supplemental oxygen; Z01.811 Encounter for preprocedural respiratory examination
CPT/HCPCS: 99214; G2211

== ENCOUNTER → 2024-02-11 12:47 | Outpatient (BNVA) | payer MEDICARE, SELFPAY ==
[2024-02-07 11:25] VITALS: BMI 32.0
== END ==
PROVIDERS: PCP Internal Medicine; Visit Provider Internal Medicine Pulmonary Disease
DX: Z01.811 Encounter for preprocedural respiratory examination (principal); J84.10 Pulmonary fibrosis, unspecified; J44.9 Chronic obstructive pulmonary disease, unspecified; J84.9 Interstitial pulmonary disease, unspecified; Z87.891 Personal history of nicotine dependence; Z99.81 Dependence on supplemental oxygen
CPT/HCPCS: 99212

== ENCOUNTER 2024-02-27 14:22 | Inpatient (IN) | payer MEDICARE, SELFPAY ==
[2024-02-07 11:25] VITALS: BMI 32.0
--- NOTE | ~2024-02-27 | CT_ITS ---
EXAMINATION: CT ANGIOGRAM CHEST, PE PROTOCOL CLINICAL INFORMATION: Dyspnea on exertion COMPARISON: CT chest January 01, 2024 TECHNIQUE: Multidetector CT pulmonary angiography of the thorax was performed according to the pulmonary embolism protocol after intravenous administration of 85 mL of intravenous Omnipaque. Reformatted coronal and sagittal imaging was performed. 3-D MIP images performed at a dedicated separate workstation. This CT examination was performed using dose optimization techniques as appropriate, variously including the following: *Automated exposure control *Adjustment of mA and/or kV according to patient size (this includes techniques or standardized protocols for targeted exams where dose is matched to indication/reason for exam; i.e. extremities or head) *Use of iterative reconstruction technique DLP: 360 mGy-cm QUALITY: Overall Exam Quality: Satisfactory. Pulmonary Arterial Enhancement: Adequate. Breath Hold: Adequate. Artifacts Impacting Image Quality: None. FINDINGS: VASCULAR: Heart: Normal in size. No septal bowing. Coronary artery calcifications present. Aorta: No thoracoabdominal aortic aneurysm. Three vessel arch. Pulmonary Artery: No filling defect is identified in the central, lobar, segmental or proximal subsegmental pulmonary arterial branches to suggest pulmonary embolus. NONVASCULAR: THORAX: Thyroid Gland: The visualized thyroid gland is normal. Lymph Nodes: Enlarged pretracheal lymph node measuring 1.6 cm. Airways: The trachea and central bronchi are normal. Lungs: Right upper lobe predominant centrilobular emphysema with diffuse interlobular septal thickening. Pleura: Trace right pleural effusion. No pneumothorax. Upper Abdomen: Scattered hepatic hypodensities, most pronounced in segment 2 and 4. These areas statistically to represent cysts. Reflux of contrast into the central hepatic veins. Soft Tissues/Musculoskeletal: No acute fracture or significant focal lesion. CT/CT angio chest PE protocol IMPRESSION: 1. No acute pulmonary embolus up to the proximal subsegmental level. 2. Lung findings consistent with exacerbation of underlying emphysema in the form of pulmonary edema. Small right pleural effusion. 3. Mediastinal lymphadenopathy, the likely reactive from chronic underlying process. Fleischner guidelines were followed. Electronically signed by: Karri Segovia DO 02/27/2024 10:59 PM [facility] [place]
--- NOTE | ~2024-02-27 | XR_ITS ---
EXAMINATION: XR CHEST CLINICAL INFORMATION: Shortness or breath COMPARISON: X-ray dated November 10, 2023. TECHNIQUE: 2 views of the chest were obtained. FINDINGS: Blunting of the right costophrenic angle. Prominence of the indication lung markings. Pulmonary reticular nodular pattern. No hyperinflation. No pneumothorax. Cardiomediastinal silhouette demonstrates a calcified plaque Arctic arch. Multilevel thoracic spondylosis with wedge-shaped compression deformity in the mid to lower thorax. There is a stent in the abdominal aorta likely stenting graft. XR/XR chest 2V IMPRESSION: Right-sided pleural effusion, moderate volume. Mild interstitial lung edema. Electronically signed by: Grayson Mosher MD 02/27/2024 03:32 PM EST
[2024-02-27 14:30] VITALS: BP 114/75; PULSE 123; RESP 22; TEMP 36.7; O2SAT 96; BMI 29.7
--- NOTE | 2024-02-27 14:30 | ED.SOB ---
HPI - SOB/Dyspnea General Chief Complaint: Dyspnea Stated Complaint: sob Time Seen by Provider: 02/27/24 16:20 Source: patient, RN notes reviewed and old records reviewed Mode of arrival: ambulatory Limitations: no limitations History of Present Illness ED Provider: Denny YOON Narrative: 78-year-old male past medical history significant for atrial fibrillation on Eliquis, COPD on 2 L oxygen, CHF, interstitial lung disease, history of AAA, coronary artery disease, hypertension presents for evaluation of shortness of breath. Patient presents from pulmonary rehab where he was this morning. He reports increased shortness of breath with exertion He denies any leg swelling, chest pain, cough, fevers, chills. He tried to call his primary doctor who did not get back to him. Patient believes he has ?fluid in my lungs, because I feel like I did last time I had that. ? His paper stacker is Dr. Casas The patient denies any history of DVT or PE He reports he has been off his Eliquis for the last 2 days for a scheduled bladder surgery next Saturday Related Data Home Medications ?Medication ?Instructions ?Recorded ?Confirmed adalimumab 40 mg/0.4 mL 40 mg subcut Q2W 10/10/22 02/04/24 subcutaneous pen kit (Humira(CF) Pen) Previous Rx's ?Medication ?Instructions ?Recorded OXYGEN 2 L NC keep sats > 90 #1 ea 02/12/22 PORTABLE OXYGEN TANK #1 ea 02/22/22 compress.stocking,knee,reg,med #2 ea 04/10/22 cyanocobalamin (vitamin B-12) 1,000 mcg PO DAILY #90 tabs 05/26/23 1,000 mcg tablet (Vitamin B-12) cholecalciferol (vitamin D3) 50 50 mcg PO DAILY #90 caps 06/07/23 mcg (2,000 unit) capsule digoxin 125 mcg (0.125 mg) tablet 125 mcg PO MOWEFR 90 days #39 tabs 07/11/23 furosemide 20 mg tablet (Lasix) 20 mg PO DAILY #90 tabs 07/11/23 atorvastatin 80 mg tablet 80 mg PO BEDTIME #90 tabs 10/05/23 budesonide 160 mcg-glycopyr 9 2 inh inhalation BID #10.7 grams 10/29/23 mcg-formot 4.8 mcg/actuation HFA inhaler (Breztri Aerosphere) diltiazem HCl 180 mg 180 mg PO DAILY #90 caps 12/03/23 capsule,extended release 24 hr, controlled nitrofurantoin macrocrystal 100 mg 100 mg PO BID 14 days #28 caps 12/15/23 capsule levothyroxine 50 mcg tablet 50 mcg PO QAM #90 tabs 12/16/23 metoprolol tartrate 25 mg tablet 75 mg (3 x 25 mg) PO BID 30 days 12/26/23 #180 tabs famotidine 20 mg tablet 20 mg PO BID 90 days #180 tabs 12/31/23 ferrous sulfate 325 mg (65 mg 325 mg PO DAILY 90 days #90 tabs 12/31/23 iron) tablet,delayed release apixaban 5 mg tablet (Eliquis) 5 mg PO BID 90 days #180 tabs 01/03/24 tamsulosin 0.4 mg capsule 0.8 mg (2 x 0.4 mg) PO DAILY #60 01/28/24 caps Allergies Allergy/AdvReac Type Severity Reaction Status Date / Time Penicillins Allergy Severe Anaphylaxis Verified 02/27/24 14:35 hydrochlorothiazide Allergy Unknown Unknown Verified 02/27/24 14:35 lisinopril Allergy Unknown Unknown Verified 02/27/24 14:35 regadenoson [From Lexiscan] AdvReac Bradycardic Verified 02/27/24 14:35 Review of Systems Constitutional: Constitutional: Denies body ache(s), Denies chills, Denies fever(s) and Denies headache(s) Eyes: Eyes: Denies blurry vision ENT: Denies dysphagia, Denies vertigo, Denies dizziness and Denies headache(s) Cardiovascular: Cardiovascular: Denies chest pain, Denies chest pain at rest, Reports dyspnea and Reports dyspnea on exertion Respiratory: Respiratory: Denies chest congestion, Denies cough, Reports dyspnea, Reports dyspnea on exertion, Denies stridor and Denies wheezing Gastrointestinal: Gastrointestinal: Denies abdominal pain, Denies dysphagia, Denies nausea and Denies vomiting Musculoskeletal: Musculoskeletal: Denies myalgias Integumentary/Breasts: Skin/Breast: Denies rash Neurologic: Denies vertigo, Denies dizziness and Denies headache(s) Psychiatric: Psychiatric: Denies anxiety Allergic/Immunologic: Allergic/Immunologic: Denies wheezing PMFSH Past Medical History Medical History (Updated 11/07/24 @ 17:10 by Julio Baldwin) Atrial fibrillation with rapid ventricular response Supplemental oxygen dependent ILD (interstitial lung disease) COPD (chronic obstructive pulmonary disease) Tubular adenoma of colon (~2021) Postoperative hypothyroidism Obesity (BMI 30-39.9) Atrial fibrillation Chest discomfort Bronchitis Hemoptysis HOLLOWAY (dyspnea on exertion) Abnormal SPEP Multinodular thyroid Swelling of left lower extremity Pulmonary nodules/lesions, multiple Ground glass opacity present on imaging of lung Wedge compression fracture of T9 vertebra (~2018) Coronary artery disease Hypertension Right renal stone Thyroid nodule Vitamin D deficiency Ascending aorta dilatation Obesity (BMI 30-39.9) Psoriasis Hypercholesterolemia Former smoker Stable angina Surgical History Status post AAA (abdominal aortic aneurysm) repair Hx of bilateral cataract extraction (~2022) History of partial thyroidectomy (~2020) History of heart artery stent (~2019) History of colonoscopy History of cardioversion (~2020) History of appendectomy History of tonsillectomy History of lung biopsy (~2016) Family History Family History Father Heart disease Mother Throat cancer Paternal Grandfather Heart disease Social History Social History Household Members: Spouse Housing: House Are you a primary care transitions nurse to a significant other at home: No Do you presently have visiting nurse or other home services: No Alcohol intake: former Year quit: 2014 Patient Tobacco Use Status: Former Tobacco user Tobacco use type: Cigarette Years Smoked: 50 e-Cigarette/Vaping Use: Former Use Second Hand Smoke Exposure: No Advance Directives: No Advance Directives Information Provided: Yes Advance Directives Date on File: 09/21/20 service: No Current occupational status: retired Cognitive needs: No Hearing needs: No Vision needs: Yes Physical Exam Vital Signs: Vital Signs: Last Vital Signs Temp 98.3 F 02/27/24 22:03 Pulse 96 02/27/24 22:03 Resp 16 02/27/24 22:03 BP 123/67 02/27/24 22:03 Pulse Ox 96 02/27/24 22:03 O2 Del Method Room Air 02/27/24 22:03 BMI result Body Mass Index 29.7 Const: General: healthy appearing, comfortable, no acute distress, alert and awake Nutritional Appearance: well nourished Orientation/consciousness: patient oriented x3 HEENT: Head: Yes normocephalic and Yes atraumatic Eyes: Eyelids: Yes eyelids normal Conjunctivae: conjunctivae normal Sclerae: sclerae normal Corneas: corneas normal Pupils: Equal, round and reactive pupils present EOM: EOMs intact bilaterally Neck: Neck: Yes full ROM Resp: Effort & Inspection: normal respiratory effort, able to speak in complete sentences, no audible wheezes, not labored and no stridor Auscultation: clear to auscultation bilaterally, no rhonchi and no wheezes Cardio: Other: No lower extremity edema Rate: tachycardic Rhythm: abnormal rhythm and abnormal rhythm irregularly irregular Heart sounds: no gallops, no murmurs and no rubs GI: Inspection: No distended Palpation (GI): Soft to palpation, not firm, nontender, no guarding and not rigid Skin: General skin exam: elasticity normal Neuro: General: patient oriented x3 Cranial nerves: Yes Equal, round and reactive pupils present and Yes Bilaterally intact EOM present Cognition (Neuro): normal cognition Course Course Course Narrative: This is an RME: Additional HPI, ROS, PE not included below will be deferred to primary provider. RME assessment and note performed by: Alyse Cobos PA-C This is a [id number]-male, with a history of ILD, COPD with chronic hypoxemic respiratory failure on 2L O2 at baseline, paroxysmal atrial fibrillation anticoagulated with eliquis (but has not taken in 2 days due to urology procedure) CAD, HTN, HLD, AAA s/p repair, prediabetes, who is a former smoker with 100+ pack year history quit 2015, with complaints of SOB which started at pulmonary rehab. SOB is constant. No CP. Plan: Labs, EKG, further ER eval needed, pt brought back to ER for further eval. Reevaluation(s) Reevaluation #1: Attempted to ambulate the patient, his oxygen saturation stayed around 94% or better, however his heart rate increased to 150. His work of breathing increased. This may be related to interstitial lung disease but we will get a CT angiography to rule out PE. Time: 19:21 Reevaluation #2: CT angiography shows pulmonary edema with right-sided pleural effusion, no PE. Discussed with the hospitalist who will admit the patient Time: 00:53 Medications Administered Discontinued Medications Generic Name Dose Route Start Last Admin Trade Name Jacobo PRN Reason Stop Dose Admin Digoxin 0.125 mg 02/27/24 18:26 02/27/24 19:14 Digoxin 0.125 Mg Tablet PO 02/27/24 18:27 0.125 mg ONCE ONE Administration Protocol Furosemide 40 mg 02/27/24 16:34 02/27/24 16:42 Furosemide 40 Mg/4 Ml Vial IVPUSH 02/27/24 16:35 40 mg STAT STA Administration Protocol Iohexol 85 ml 02/27/24 19:43 02/27/24 19:43 Iohexol 350 Mg/Ml 100 Ml Infus..Btl IV 02/27/24 19:44 85 ml ONCE ONE Administration Potassium Chloride 40 meq 02/27/24 17:07 02/27/24 18:19 Potassium Chloride Er 20 Meq Tab.Er.Prt PO 02/27/24 17:08 40 meq ONCE ONE Administration Medical Decision Making Medical Decision Making [facility] Narrative: 78-year-old male with history as documented above presents for evaluation of shortness of breath on exertion. He has been off his Eliquis for 2 days, but given has been only a recent discontinuation of anticoagulation I feel DVT/PE is less likely. The patient has no lower extremity edema. He has no wheezing on exam to suggest COPD exacerbation. He does have a history of CHF and interstitial lung disease. Chest x-ray shows pleural effusion. Most likely diagnosis is CHF at this time. He is negative for influenza, COVID, RSV. Plan to treat with Lasix 40 mg IV. The patient does take Lasix 20 mg b.i.d. Differential Diagnosis Differential Diagnoses: The differential diagnosis associated with the presentation includes CHF COPD Interstitial lung disease Pneumonia Bronchitis Viral syndrome Admission/Observation Consideration of admission/observation: Escalation of care including admission/observation considered Consider admission due to dyspnea on exertion. Lab Data [facility] Lab Attestation statement: I reviewed the patient's lab results. No leukocytosis. The patient does have a chronic macrocytic anemia. There is no left shift. Chemistries are significant for a potassium of 3.1 which will be repleted, BNP is elevated to 300 troponin is within normal limits at 4.0 the. The patient denies any chest pain, ACS less likely 02/27/24 15:05 02/27/24 15:05 Labs: Lab Results 02/27/24 02/27/24 02/27/24 Range/Units 15:05 15:09 15:27 WBC 5.2 (4.8-10.8) X10*3/uL RBC 3.14 L (4.60-5.80) X10*6/uL Hgb 10.8 L (14.0-18.0) g/dl Hct 31.7 L (42.0-52.0) % MCV 101.0 H (80.0-98.0) fL MCH 34.4 H (27.0-33.0) pg MCHC 34.1 (31.0-36.0) g/dl RDW 15.8 (11.0-16.0) % Plt Count 138 L (160-400) X10*3/uL MPV 9.2 L (9.4-12.4) fL Immature Gran % (Auto) 0.6 H (0.0-0.4) % Neut % (Auto) 70.8 (45-73) % Lymph % (Auto) 11.6 L (20-40) % [place] % (Auto) 14.5 H (2-11) % Eos % (Auto) 2.3 (0-4) % Baso % (Auto) 0.2 (0-2) % Lymph # (Auto) 0.6 L (1.2-4.9) X10*3/uL [place] # (Auto) 0.8 (0.1-1.2) X10*3/uL Eos # (Auto) 0.1 (0.0-0.4) X10*3/uL Baso # (Auto) 0.0 (0.0-0.2) X10*3/uL Abs Immat Gran (auto) 0.03 (0.00-0.03) X10*3/uL Absolute Neuts (auto) 3.7 (2.0-8.3) x10*3/uL Absolute Nucleated RBC 0.000 (0.0-0.012) X10*3/uL Nucleated RBC % (auto) 0.0 (0.0-0.2) /100WBC PT 13.2 H (10.9-12.4) SEC INR 1.1 (0.9-1.1) APTT 31.1 (26.0-36.8) SEC VBG pH 7.42 (7.32-7.43) VBG pCO2 40 mmHg VBG pO2 40 mmHg VBG HCO3 26 (22-26) mmol/L VBG O2 Saturation 74.0 % VBG Base Excess 2.2 mmol/L Sodium 139 (135-145) mmol/L Potassium 3.1 L D (3.3-5.1) mmol/L Chloride 105 (96-108) mmol/L Carbon Dioxide 24 (22-29) mmol/L Anion Gap 13 (12-20) BUN 23 H (9-16) mg/dL Creatinine 0.92 (0.5-1.4) mg/dL Estim Creat Clear Calc 73.8 Estimated GFR > 60 Random Glucose 129 H (60-115) mg/dL Calcium 8.9 (8.4-10.2) mg/dL Magnesium 1.9 (1.6-2.6) mg/dL Total Bilirubin 0.9 (0.0-1.0) mg/dL Direct Bilirubin 0.3 (0.0-0.5) mg/dL AST 26 (5-37) U/L ALT 22 (0-40) U/L Alkaline Phosphatase 138 H (39-117) U/L Troponin I High Sens 4.0 (<3.5-35.0) ng/L B-Natriuretic Peptide 300 H (<100) pg/mL Total Protein 7.2 (6.5-8.0) g/dL Albumin 3.6 (3.5-5.0) g/dL Influenza Type A (PCR) NEGATIVE (Negative) Influenza Type B (PCR) NEGATIVE (Negative) RSV RNA Qual (PCR) NEGATIVE (Negative) SARS-CoV-2 RNA (RT-PCR) NEGATIVE (Negative) Independent Interpretation I performed an independent interpretation of an: EKG (AFib with a rate of [address] segment elevation LA) and Plain X-Ray (Right-sided pleural effusion) Radiology Impression Discussion of test interpretation with radiology: I have reviewed the radiologist's reading. Radiologist Impression: FINDINGS: Blunting of the right costophrenic angle. Prominence of the indication lung markings. Pulmonary reticular nodular pattern. No hyperinflation. No pneumothorax. Cardiomediastinal silhouette demonstrates a calcified plaque Arctic arch. Multilevel thoracic spondylosis with wedge-shaped compression deformity in the mid to lower thorax. There is a stent in the abdominal aorta likely stenting graft. XR/XR chest 2V IMPRESSION: Right-sided pleural effusion, moderate volume. Mild interstitial lung edema. Electronically signed by: Grayson Mosher MD 02/27/2024 03:32 PM EST Discharge Plan Discharge Clinical Impression: HOLLOWAY (dyspnea on exertion), Pleural effusion, right Patient Disposition: Admitted As Inpatient Prescriptions: No Action (DME) OXYGEN 2 L NC keep sats > 90 See Rx Instructions .Route .MEDSUPPLY Qty: 1 0RF Rx Instructions: As directed (DME) PORTABLE OXYGEN TANK See Rx Instructions .Route .MEDSUPPLY Qty: 1 0RF Rx Instructions: As directed cyanocobalamin (vitamin B-12) [Vitamin B-12] 1,000 mcg tablet 1,000 mcg PO DAILY Qty: 90 3RF cholecalciferol (vitamin D3) 50 mcg (2,000 unit) capsule 50 mcg PO DAILY Qty: 90 3RF digoxin 125 mcg (0.125 mg) tablet 125 mcg PO MOWEFR 90 Days Qty: 39 3RF furosemide [Lasix] 20 mg tablet 20 mg PO DAILY Qty: 90 3RF atorvastatin 80 mg tablet 80 mg PO BEDTIME Qty: 90 2RF diltiazem HCl 180 mg capsule,ext.rel 24h degradable 180 mg PO DAILY Qty: 90 3RF nitrofurantoin macrocrystal 100 mg capsule 100 mg PO BID 14 Days Qty: 28 0RF Rx Instructions: must administer with a meal/food levothyroxine 50 mcg tablet 50 mcg PO QAM Qty: 90 1RF metoprolol tartrate 25 mg tablet 75 mg PO BID 30 Days Qty: 180 5RF Rx Instructions: Three tablets twice daily Eliquis 5 mg tablet 5 mg PO BID 90 Days Qty: 180 3RF tamsulosin 0.4 mg capsule 0.8 mg PO DAILY Qty: 60 3RF (DME) compress.stocking,knee,reg,med Misc See Rx Instructions .Route Qty: 2 0RF Rx Instructions: As directed 20-30 mm HG ferrous sulfate 325 mg (65 mg iron) tablet,delayed release (DR/EC) 325 mg PO DAILY 90 Days Qty: 90 1RF famotidine 20 mg tablet 20 mg PO BID 90 Days Qty: 180 1RF Humira(CF) Pen 40 mg/0.4 mL pen injector kit 40 mg subcut Q2W Rx Instructions: Every 2 weeks on SA or TOLBERT Breztri Aerosphere 160-9-4.8 mcg/actuation HFA aerosol inhaler 2 inh inhalation BID Qty: 10.7 6RF Print Language: Haitian
--- NOTE | 2024-02-27 14:32 | ECG_ITS ---
Test Reason : dyspnea Blood Pressure : / mmHG Vent. Rate : 105 BPM Atrial Rate : 000 BPM P-R Int : 000 ms QRS Dur : 086 ms QT Int : 320 ms P-R-T Axes : 000 023 036 degrees QTc Int : 422 ms Atrial fibrillation with rapid ventricular response Nonspecific ST abnormality Abnormal ECG When compared with ECG of 10-NOV-2023 06:56, No significant change was found Referred By: Alyse Cobos Electronically Signed By:MIAH FERMIN MD
[2024-02-27 15:09] LABS: MANUAL DIFF FLAG NO
[2024-02-27 15:12] LABS: Basophils Percent Auto 0.2 % (0-2); Eosinophils Absolute Auto 0.1 X10*3/uL (0.0-0.4); Eosinophils Percent Auto 2.3 % (0-4); Hematocrit 31.7 % (42.0-52.0); Hemoglobin 10.8 g/dl (14.0-18.0); Imm Gran Abs Auto 0.03 X10*3/uL (0.00-0.03); Imm Gran Pct Auto 0.6 % (0.0-0.4); Lymphocytes Absolute Auto 0.6 X10*3/uL (1.2-4.9); Lymphocytes Percent Auto 11.6 % (20-40); Mean Corpuscular HGB Conc 34.1 g/dl (31.0-36.0); Mean Corpuscular Hemoglobin 34.4 pg (27.0-33.0); Mean Platelet Volume 9.2 fL (9.4-12.4); Monocytes Absolute Auto 0.8 X10*3/uL (0.1-1.2); Monocytes Percent Auto 14.5 % (2-11); Neutrophils Absolute Auto 3.7 x10*3/uL (2.0-8.3); Neutrophils Percent Auto 70.8 % (45-73); Platelet Count 138 X10*3/uL (160-400); Red Blood Count 3.14 X10*6/uL (4.60-5.80); Red Cell Distribution Width 15.8 % (11.0-16.0); White Blood Count 5.2 X10*3/uL (4.8-10.8)
[2024-02-27 15:13] LABS: VBG Base Excess 2.2 mmol/L; VBG HCO3 26 mmol/L (22-26); VBG pCO2 40 mmHg; VBG pH 7.42 (7.32-7.43); VBG pO2 40 mmHg
[2024-02-27 15:13] LABS: Venous Blood Gas Refer to POC result
[2024-02-27 15:18] LABS: INTERNATIONAL NORM RATIO 1.1 (0.9-1.1); Prothrombin Time 13.2 SEC (10.9-12.4)
[2024-02-27 15:20] LABS: Partial Thromboplastin Time 31.1 SEC (26.0-36.8)
[2024-02-27 15:27] LABS: Alanine Aminotransferase 22 U/L (0-40); Albumin Level 3.6 g/dL (3.5-5.0); Alkaline Phosphatase 138 U/L (39-117); Anion Gap 13 (12-20); Aspartate Amino Transferase 26 U/L (5-37); Bilirubin Direct 0.3 mg/dL (0.0-0.5); Bilirubin Total 0.9 mg/dL (0.0-1.0); Blood Urea Nitrogen 23 mg/dL (9-16); Calcium 8.9 mg/dL (8.4-10.2); Carbon Dioxide 24 mmol/L (22-29); Chloride 105 mmol/L (96-108); Creatinine Clr Calc Pharmacy 73.8; Estimated Glomerular Filt Rate > 60; Glucose Random 129 mg/dL (60-115); Magnesium 1.9 mg/dL (1.6-2.6); Potassium 3.1 mmol/L (3.3-5.1); Sodium 139 mmol/L (135-145); Total Protein 7.2 g/dL (6.5-8.0)
[2024-02-27 15:28] VITALS: BP 116/64; PULSE 92; RESP 19; O2SAT 97
[2024-02-27 15:33] LABS: B Type Natriuretic Peptide 300 pg/mL (<100)
[2024-02-27 16:17] LABS: Influenza A PCR NEGATIVE (Negative); Influenza B PCR NEGATIVE (Negative); Resp Syncy Virus RNA Qual PCR NEGATIVE (Negative); SARS COV2 PCR INHOUSE NEGATIVE (Negative)
[2024-02-27 16:42] VITALS: BP 116/86
[2024-02-27] MEDS: Furosemide 40 MG/4 ML VIAL IVPUSH (16:42)
[2024-02-27 18:00] VITALS: BP 104/70; PULSE 109; RESP 22; TEMP 36.6; O2SAT 95
[2024-02-27] MEDS: Potassium Chloride ER 20 MEQ TAB.ER.PRT 40 MEQ PO (18:19)
--- NOTE | 2024-02-27 19:09 | PC.NURSE ---
patient ambulation trial with RN at side. 0xygen remained 94-95% on 2L NC HR elevated to 150's patient reports increased shortness of breathing upon the walk back to the room. so after 20ft. patient reports feeling lighthead/dizziness. BP 96/61
[2024-02-27] MEDS: Digoxin 0.125 MG TABLET PO (19:14)
[2024-02-27] MEDS: iohexoL 350 MG/ML 100 ML INFUS..BTL 85 ML IV (19:43)
[2024-02-27 20:25] VITALS: BP 118/76; PULSE 107; RESP 16; TEMP 36.8; O2SAT 95
[2024-02-27 22:03] VITALS: BP 123/67; PULSE 96; RESP 16; TEMP 36.8; O2SAT 96
--- NOTE | 2024-02-27 22:44 | PC.NURSE ---
[place] cath applied to pt for safety comfort and to alleviate elevated HR upon frequent urination s/p medication administrations. Patient endorses fatigue and wanting to sleep.
[2024-02-28] VITALS (15 sets, daily range): BP systolic 100–145; BP diastolic 52–78; PULSE 72–160; RESP 13–20; TEMP 36.4–36.9; O2SAT 95–97; BMI 32.2
--- NOTE | 2024-02-28 01:49 | PM.IMHP ---
History of Present Illness Date of Service: 02/28/24 Chief Complaint: HOLLOWAY A 78 years old male with PMH of COPD on 2L, ILD, CHF, BPH, Afib on eliquis among others presenting to the hospital with worsening HOLLOWAY. The patient wa at the pulmonary rehab as he reports worsening dyspnea with short distances and being unable to lay flat to sleep. No chest pain, palpitations, fever, chills, cough, wheezing, nausea, vomiting, diarrhea or urinary symptoms. In ED noticed to became dyspneic with Tachcardia in 140s and tachypnea in 30s as he makes few steps. No hypoxia noted so as he is tolerating on 3L. BNP mildly elevated but lower than usualy. CT scan showing pulm edema and small effusion with signs of inflammatory reaction. admitted for further evaluation and management. Review of Systems Review of Systems: No fever, chills or weakness No chest pain, palpitation having shortness of breath with no coughing No abdominal pain, nausea or vomiting No urinary symptoms No any rash or wounds [facility] Medical History Atrial fibrillation with rapid ventricular response Supplemental oxygen dependent ILD (interstitial lung disease) COPD (chronic obstructive pulmonary disease) Tubular adenoma of colon (~2021) Postoperative hypothyroidism Obesity (BMI 30-39.9) Atrial fibrillation Chest discomfort Bronchitis Hemoptysis HOLLOWAY (dyspnea on exertion) Abnormal SPEP Multinodular thyroid Swelling of left lower extremity Pulmonary nodules/lesions, multiple Ground glass opacity present on imaging of lung Wedge compression fracture of T9 vertebra (~2018) Coronary artery disease Hypertension Right renal stone Thyroid nodule Vitamin D deficiency Ascending aorta dilatation Obesity (BMI 30-39.9) Psoriasis Hypercholesterolemia Former smoker Stable angina Family History Father Heart disease Mother Throat cancer Paternal Grandfather Heart disease Surgical History Status post AAA (abdominal aortic aneurysm) repair Hx of bilateral cataract extraction (~2022) History of partial thyroidectomy (~2020) History of heart artery stent (~2019) History of colonoscopy History of cardioversion (~2020) History of appendectomy History of tonsillectomy History of lung biopsy (~2016) Social History Household Members: Spouse Housing: House Are you a primary memory care program resident to a significant other at home: No Do you presently have visiting nurse or other home services: No Alcohol intake: former Year quit: 2014 Patient Tobacco Use Status: Former Tobacco user Tobacco use type: Cigarette Years Smoked: 50 e-Cigarette/Vaping Use: Former Use Second Hand Smoke Exposure: No Advance Directives Date on File: 09/21/20 service: No Current occupational status: retired Cognitive needs: No Hearing needs: No Vision needs: Yes Meds Allergies Allergy/AdvReac Type Severity Reaction Status Date / Time Penicillins Allergy Severe Anaphylaxis Verified 02/27/24 14:35 hydrochlorothiazide Allergy Unknown Unknown Verified 02/27/24 14:35 lisinopril Allergy Unknown Unknown Verified 02/27/24 14:35 regadenoson [From Lexiscan] AdvReac Bradycardic Verified 02/27/24 14:35 Home Medications ?Medication ?Instructions ?Recorded ?Confirmed ?Last Taken ?Type adalimumab 40 mg/0.4 mL 40 mg subcut Q2W 10/10/22 02/04/24 10/27/23 History subcutaneous pen kit (Humira(CF) Pen) Physical Exam Vital Signs and Narrative: Vital Signs: Last Vital Signs Temp 98.3 F 02/27/24 22:03 Pulse 110 H 02/28/24 01:05 Resp 15 02/28/24 01:05 BP 112/78 02/28/24 01:05 Pulse Ox 96 02/28/24 01:05 O2 Del Method Nasal Cannula 02/28/24 01:05 O2 Flow Rate 3 02/28/24 01:05 BMI result Body Mass Index 29.7 Const: Other: Constitutional : Awake, interactive, distressed, on the edge of the bed Neck : Normal inspection, Supple Cardiovascular : RRR, no JVP, trace lower extremity edema Respiratory : good bilateral air entry, fine basal crackles, no wheezes or rhonchi Gastrointestinal: soft, lax, Normal bowel sounds, Non tender Skin : Warm, Dry Neurological : Alert & oriented x3, No focal deficit Results Labs 02/27/24 15:05 02/27/24 15:05 Labs: Laboratory Results - last 24 hr 02/27/24 02/27/2402/26/24 15:05 15:09 15:27 MCV 101.0 H MCH 34.4 H MCHC 34.1 RDW 15.8 Plt Count 138 L MPV 9.2 L Immature Gran % (Auto) 0.6 H Neut % (Auto) 70.8 Lymph % (Auto) 11.6 L [place] % (Auto) 14.5 H Eos % (Auto) 2.3 Baso % (Auto) 0.2 Lymph # (Auto) 0.6 L [place] # (Auto) 0.8 Eos # (Auto) 0.1 Baso # (Auto) 0.0 Abs Immat Gran (auto) 0.03 Absolute Neuts (auto) 3.7 Absolute Nucleated RBC 0.000 Nucleated RBC % (auto) 0.0 PT 13.2 H INR 1.1 APTT 31.1 VBG pH 7.42 VBG pCO2 40 VBG pO2 40 VBG HCO3 26 VBG O2 Saturation 74.0 VBG Base Excess 2.2 Anion Gap 13 Estim Creat Clear Calc 73.8 Estimated GFR > 60 Random Glucose 129 H Calcium 8.9 Magnesium 1.9 Total Bilirubin 0.9 Direct Bilirubin 0.3 AST 26 ALT 22 Alkaline Phosphatase 138 H Troponin I High Sens 4.0 B-Natriuretic Peptide 300 H Total Protein 7.2 Albumin 3.6 Influenza Type A (PCR) NEGATIVE Influenza Type B (PCR) NEGATIVE RSV RNA Qual (PCR) NEGATIVE SARS-CoV-2 RNA (RT-PCR) NEGATIVE Imaging Radiologist's Impressions: Impressions Chest X-Ray 02/27/24 14:32 IMPRESSION: Right-sided pleural effusion, moderate volume. Mild interstitial lung edema. Electronically signed by: Grayson Mosher MD 02/27/2024 03:32 PM EST RP Chest CTA 02/27/24 19:15 IMPRESSION: 1. No acute pulmonary embolus up to the proximal subsegmental level. 2. Lung findings consistent with exacerbation of underlying emphysema in the form of pulmonary edema. Small right pleural effusion. 3. Mediastinal lymphadenopathy, the likely reactive from chronic underlying process. Fleischner guidelines were followed. Electronically signed by: Karri Segovia DO 02/27/2024 10:59 PM EST RP Assessment and Plan (1) HOLLOWAY (dyspnea on exertion): Status: Acute (2) Acute CHF: Qualifiers: Heart failure type: unspecified Qualified Code(s): I50.9 - Heart failure, unspecified Status: Acute Plan A 78 years old male with PMH of COPD on 2L, ILD, CHF, BPH, Afib on eliquis among others presenting to the hospital with worsening HOLLOWAY. Acute on chronic dCHF exacerbation CT showing pul edema BNP at 300 start IV lasix bid monitor I\O ILD w exacerbation reported changes on cT scan, worsening respiratory status overall IV steroids, start PO Prednisone in morning bronchodilator neb pulm eval PT eval Afib Cardizem, Metoprolol, Eliquis, Digoxine HLD, Statin Hypothyroid, Levothyroxine PENDING MED Rec DVT PPx , Eliquis Quality Stroke Does the patient have a stroke diagnosis?: No VTE Prior VTE?: No VTE Risk Level:: Medical - moderate - high VTE Device Contraindication: Treatment Not Indicated VTE Drug Contraindication: N/A - Med Ordered
[2024-02-28] MEDS: methylPREDNISolone Sod Succ 40 MG/ML VIAL IVPUSH (03:24)
[2024-02-28] MEDS: Atorvastatin Calcium 80 MG TABLET PO ×2 (03:24→20:32)
--- NOTE | 2024-02-28 03:33 | PC.NURSE ---
Patient requested for [place] catheter to be removed d/t discomfort and inability to void with cath in place. [place] catheter removed per patient's request, patient voided 480 mL of clear urine into a urinal.
--- NOTE | 2024-02-28 04:00 | PC.NURSE ---
Per Dr. Day, hold Eliquis 5 mg PO d/t scheduled surgical procedure on bladder Saturday03/02/[address] George. OK to administer Lovenox 40 mg daily.
[2024-02-28] MEDS: Enoxaparin Sodium 40 MG/0.4 ML SYRINGE SUBCUT (04:08)
[2024-02-28 05:04] LABS: Anion Gap 15 (12-20); Blood Urea Nitrogen 20 mg/dL (9-16); Calcium 8.5 mg/dL (8.4-10.2); Carbon Dioxide 23 mmol/L (22-29); Chloride 105 mmol/L (96-108); Creatinine Clr Calc Pharmacy 77.1; Estimated Glomerular Filt Rate > 60; Glucose Random 149 mg/dL (60-115); Potassium 3.2 mmol/L (3.3-5.1); Sodium 140 mmol/L (135-145)
[2024-02-28] MEDS: Albuterol/Iprat 2.5/0.5MG 3 ML AMPUL.NEB INHALE (06:07)
[2024-02-28] MEDS: Levothyroxine Sodium 50 MCG TABLET PO (06:30)
--- NOTE | 2024-02-28 06:30 | PC.NURSE ---
HR 130-[address] Day notified, plan to discontinue Duoneb and order Xopenex. EKG completed and tiger messaged to . Per MD LEPE to administer Cardizem 180 mg earlier.
--- NOTE | 2024-02-28 06:35 | ECG_ITS ---
Test Reason : chest pressure Blood Pressure : / mmHG Vent. Rate : 148 BPM Atrial Rate : 147 BPM P-R Int : 000 ms QRS Dur : 162 ms QT Int : 292 ms P-R-T Axes : 000 026 046 degrees QTc Int : 458 ms Atrial fibrillation with rapid ventricular response Lead placement issues Diffuse ST depression suggestive of ischemia Septal infarct , age undetermined Abnormal ECG When compared with ECG of 27-FEB-2024 14:50, Vent. rate has increased ST depression suggestive of ischemia Referred By: Kye Day Electronically Signed By:MIAH FERMIN MD
[2024-02-28] MEDS: dilTIAZem HCL CD 180 MG CAP.ER.24H PO (06:41)
--- NOTE | 2024-02-28 06:41 | PC.NURSE ---
Cardizem 180 mg PO administered per MD order, effect pending.
--- NOTE | 2024-02-28 07:00 | CA_ITS ---
Transthoracic Echocardiogram Patient (Last, First, Middle): Pablito Everett P Gender: Male Date of : 1945 Age: 78 Procedure Date: 02/28/2024 Procedure Type: Transthoracic Echocardiogram Location[place] [facility] [place] Height: 175.26 cm Weight: 98.88 kg BSA: 2.14 m2 Heart Rate: bpm BP: 120 / 69 mmHg Lead Applications Developer: Referring MD: Nicky MCLAIN Cost Estimating Clerk: Julian Lindo MD Symptoms: CHF, afib Study Quality: Adequate ECG Rhythm: Atrial Fibrillation Conclusions: - 1. Low normal LV ejection fraction 50-55% with mild LVH 2. Moderately dilated left atrium 3. Mild aortic stenosis 4. [id number] enlargement of ascending aorta at 4.4 cm 5. No pericardial effusion Findings Left Ventricle Normal left ventricular cavity size. There is mildly increased left ventricular wall thickness. The left ventricular systolic function is low normal. The visually estimated ejection fraction is between 50-55%. Diastolic function is indeterminate on the basis of available data. Right Ventricle Normal right ventricular cavity size and systolic function. Atria The left atrium is moderately dilated. There is no evidence of interatrial shunt. The right atrium is mildly dilated. Aortic Valve There is mild calcification of the aortic valve. There is moderate thickening of the aortic valve. There is mild aortic valve stenosis. The peak aortic velocity is 2.01 m/s with a calculated peak gradient of 16 mmHg. The mean gradient is 8 mmHg. The aortic valve area is 1.85 cm2. There is no aortic valve regurgitation. Mitral Valve The mitral valve was not well visualized. There is mild mitral annular calcification. There is trace mitral valve regurgitation. There is no mitral valve stenosis. Pulmonic Valve The pulmonic valve was not well visualized. Tricuspid Valve Likely normal tricuspid valve structure and function. There is trace tricuspid valve regurgitation. The right ventricular systolic pressure is normal. The right ventricular systolic pressure is 19 mmHg. Normal right atrial pressure. There is no evidence of pulmonary hypertension. Great Vessels The pulmonary artery was not well visualized. There is mild dilatation of the ascending aorta measuring 4.40 cm. Small plaque is seen in the sino tubular ridge. Venous The inferior vena cava is normal in size and collapses greater than 50% with inspiration. Pericardium/Pleural There is no evidence of pericardial effusion. Prior Study Comparison No significant change compared to prior study dated: 03/01/2023. Measurements 2D Linear Measurements IVSd: 1.29 0.6-0.9/0.6-1.0 cm LVIDd: 4.79 3.9-5.3/4.2-5.9 cm LVIDd Index: 2.24 2.4-3.2/2.2-3.1 cm/m2 LVIDs: 3.06 2.0-3.6 cm LVPWd: 1.30 0.7-1.1 cm Ao Root: 3.50 2.1-3.5 cm LA Diam: 5.10 2.7-3.8/3.0-4.0 cm LAIDs Index: 2.38 1.5-2.3 cm/m2 LV Mass: 303.73 67-162/88-224 g LV Mass Index: 141.93 43-95/49-115 g/m2 LVOT Diam: 2.20 3.0+(-)1.3 cm 2D Systolic Function EF 4C: 51.80 >55% EF 2C: 47.50 >55% EF BiP: 52.20 >55% Mitral Valve MV Pk E: 1.19 MV Decel Time: 243.00 E'Lateral: 13.40 E'Medial: 6.96 E/E' Med: 17.10 E/E' Lat: 8.90 PHT: 71.00 MVA PHT: 3.10 Decel [place]: 4.90 Aortic Valve AoV Pk [place]: 2.01 AoV Mn [place]: 1.29 AoV VTI: 0.40 AoV Pk Grad: 16.00 Aov Mn Grad: 8.00 RAYMOND Cont.VTI: 1.85 LVOT LVOT Pk [place]: 0.94 LVOT Mn [place]: 0.58 LVOT VTI: 0.20 LVOT Pk Grad: 4.00 LVOT Mn Grad: 2.00 LVOT Diam: 2.20 LVOT Area: 3.80 Diastolic Function MV Pk E: 1.19 E'Medial: 6.96 E/E' Med: 17.10 E' Laterial: 13.40 E/E' Lat: 8.90 Right Ventricle TAPSE (mm): 24.00 TVS' [place]: 12.00 Tricuspid Valve TR Pk [place]: 2.01 TR Pk Grad: 16.00 RA Press: 3.00 RVSP: 19.00 Great Vessels Aorta Ao Root-2D: 3.50 2.0-3.7 cm Ao Asc: 4.40 2.1-3.4 cm Pulmonary Valve PV Pk [place]: 1.26 Peak PV Grad: 6.00 Updated in Other Vendor System with Status of Final Julian Lindo MD electronically signed on 02/28/2024 3:56:40 PM with status of Final
[2024-02-28] MEDS: Digoxin 0.125 MG TABLET PO (07:28)
--- NOTE | 2024-02-28 07:38 | PC.NURSE ---
Resumed care of pt at 0700. Night RN let this RN know pt has been tachycardic in the 140s-160s. MD notified of pt increasing tachycardia. Pt also c/o cp/chest pressure, digoxin given per JUN. No new orders at this time.
[2024-02-28] MEDS: Metoprolol Tartrate 5 MG/5 ML VIAL IVPUSH (07:46)
--- NOTE | 2024-02-28 07:51 | PHA.MEDREC ---
Addendum entered by Anuradha Francis RPh 02/28/24 08:42: reviewed by [facility]. Original Note: Pharmacy Consult ? Medication Reconciliation Pharmacy reviewed med rec confirmed by nursing. Confirmed medications with patient and list patient brought from home. Patient confirmed he is taking the Humalog once every 2 weeks and states he is due for it tomorrow. He confirmed the Eliquis 5mg is put on hold as of Saturday for a surgery he had scheduled for Saturday. He confirmed his Digoxgin 125mcg tab and states he takes it Saturday, Wednesdays and Fridays; He confirmed he took it Saturday. He stated he took his medications yesterday morning.
--- NOTE | 2024-02-28 08:05 | PC.NURSE ---
MD Mcqueen and RAYNE Saunders at bedside with this RN. Plan for 5mg Lopressor IVP. Pt medicated per JUN, HR decreased to high 120s-130s.
[2024-02-28 08:18] LABS: Magnesium 1.8 mg/dL (1.6-2.6)
[2024-02-28] MEDS: Tamsulosin HCL 0.4 MG CAPSULE 0.8 MG PO (08:32)
[2024-02-28] MEDS: predniSONE 20 MG TABLET 40 MG PO (08:32)
--- NOTE | 2024-02-28 08:41 | PC.NURSE ---
Pt BP soft 100/52, this RN reached out to RAYNE Saunders about holding 0900 Lasix. Per RAYNE, lasix ok to hold.
[2024-02-28] MEDS: Cholecalciferol (Vitamin D3) 25 MCG TABLET 50 MCG PO (08:51)
[2024-02-28] MEDS: Cyanocobalamin (Vitamin B-12) 1,000 MCG TABLET 1000 MCG PO (08:52)
[2024-02-28] MEDS: Ferrous Sulfate 324 MG TABLET.DR PO (08:52)
[2024-02-28] MEDS: Famotidine 20 MG TABLET PO ×2 (08:52→20:32)
[2024-02-28] MEDS: Potassium Chloride Packet 20 MEQ PACKET 40 MEQ PO (08:55)
--- NOTE | 2024-02-28 09:19 | PC.NURSE ---
PO Metoprolol held per RAYNE Saunders. Plan to hold PO dose and reassess pt.
--- NOTE | 2024-02-28 09:57 | PM.EVENT ---
Event Note Date of Service: 02/28/24 Event Note: seen and examined this morning follow up for pulm edema called to bedside due to rapid HR pt reporting sob, chest pain; HR 160s given IV lopressor and po digoxin, cardizem with good effect. HR improved to 110s P/E - awake, alert, orientd x3 lungs clear tachycardic abdomen soft extremities, trace edema b/l This is a 78 year old male with PMH of COPD on 2L, ILD, CHF, BPH, Afib on eliquis, psoriatic arthritis on Humira among others presenting to the hospital with worsening HOLLOWAY. PAF - with RVR HR up to high 160s after breathing treatment lopressor x1 as above continue baseline po meds Cardizem, Metoprolol, Digoxin Continue Eliquis for anticoagulation Check digoxin level Cardiology consult pending Chest pain Likely result AFib with RVR Initial cardiac enzymes negative, repeat pending Acute on chronic dCHF exacerbation CT showing pul edema, BNP at 300 echo from 2022 50-55% continue IV lasix bid monitor I\O cardiology consult pending chronic respiratory failure due to COPD and ILD w acute exacerbation on 2-3L o2 at baseline - goal o2 88-92% reported changes on cT scan, worsening respiratory status overall per outpatient pulm notes from January - CT chest has demonstrated bilateral ground-glass densities that have been waxing and waning with some underlying pulmonary fibrosis received steroids x1 hold breathing treatments for rapid afib. no wheezing on exam pulm eval pending PT eval hypothyroidism TSH wnl continue synthroid dvt ppx - eliquis further managaement per admission H&P Time Spent With Patient Time: Total time managing care of this patient today ____ minutes.
[2024-02-28] MEDS: Furosemide 20 MG/2 ML VIAL IVPUSH ×2 (10:41→17:14)
[2024-02-28 10:48] LABS: Digoxin 0.6 ng/mL (0.8-2.0)
[2024-02-28 11:00] LABS: Troponin-I High Sensitivity < 2.7 ng/L (<3.5-35.0)
--- NOTE | 2024-02-28 11:11 | P.CONCA_ITS ---
History of Present Illness History of Present Illness Date of Service: 02/28/24 Requesting physician: Nicky Rasmussen Consult reason: chest pain, atrial fibrillation and congestive heart failure Chief complaint: sob Narrative: I was consulted to see Pablito in cardiology consultation today for myocardial ischemia. He is a 78-year-old male known to our practice follows with Dr. Jean-Baptiste for atrial fibrillation as well as CAD. He had a stenting for NSTEMI in 2019 with a complicated RCA stenting to ostial and mid RCA. I could not find his left side coronary angiography result. Outpatient over the last couple he has been getting progressively more short of breath. His anginal equivalent at the time of presentation with shortness of breath. However he has subsequently been diagnose with pulmonary parenchymal disease possible interstitial lung disease has been treated and recently started on oxygen. Despite that he is now has had progressive shortness of breath. He had another admission few months ago where he was significantly anemic and had got significant shortness of breath and his symptoms have significantly improved after transfusion and iron replacement improvement in his arm hemoglobin suggestive possibly of myocardial ischemia. He came to the hospital with progressive shortness of breath and was noted to be in heart failure again heart this morning he developed significant tachycardia and subsequently developed significant chest pressure with marked ST depression globally. Symptoms improved with rate control. However after IV medications his blood pressure became low softer. He has been admitted for further observation. Also diuresed. Says shortness of breath is improved and chest pressure is improved. Denies any lightheadedness, syncope. Cardiology consult was sought for further management plan. Review of Systems 2 Constitutional: Constitutional: Reports no additional constitutional complaints, Denies chills and Denies fever(s) Eyes: Eyes: Reports no additional eye complaints Cardiovascular: Cardiovascular: Reports chest pain at rest, Reports rapid heart rate, Denies leg edema, Denies lightheadedness, Denies Loss of Consciousness, Reports dyspnea and Reports dyspnea on exertion Respiratory: Respiratory: Reports dyspnea and Reports dyspnea on exertion Gastrointestinal: Gastrointestinal: Reports no additional gastrointestinal complaints Neurologic: Reports system reviewed and no additional complaints, except as documented [facility] Past Medical History Medical History (Updated 02/28/24 @ 11:22 by Julian Lindo MD) Atrial fibrillation with rapid ventricular response Supplemental oxygen dependent ILD (interstitial lung disease) COPD (chronic obstructive pulmonary disease) Tubular adenoma of colon (~2021) Postoperative hypothyroidism Obesity (BMI 30-39.9) Atrial fibrillation Chest discomfort Bronchitis Hemoptysis HOLLOWAY (dyspnea on exertion) Abnormal SPEP Multinodular thyroid Swelling of left lower extremity Pulmonary nodules/lesions, multiple Ground glass opacity present on imaging of lung Wedge compression fracture of T9 vertebra (~2018) Coronary artery disease Hypertension Right renal stone Thyroid nodule Vitamin D deficiency Ascending aorta dilatation Obesity (BMI 30-39.9) Psoriasis Hypercholesterolemia Former smoker Stable angina Family History Family History Father Heart disease Mother Throat cancer Paternal Grandfather Heart disease Surgical History Surgical History Status post AAA (abdominal aortic aneurysm) repair Hx of bilateral cataract extraction (~2022) History of partial thyroidectomy (~2020) History of heart artery stent (~2019) History of colonoscopy History of cardioversion (~2020) History of appendectomy History of tonsillectomy History of lung biopsy (~2016) Social History Social History Household Members: Spouse Housing: House Are you a primary client care coordinator to a significant other at home: No Do you presently have visiting nurse or other home services: No Alcohol intake: former Year quit: 2014 Patient Tobacco Use Status: Former Tobacco user Tobacco use type: Cigarette Years Smoked: 50 Smoked in Last 30 Days: No e-Cigarette/Vaping Use: Former Use Patient Interested in Nicotine Replacement: No Patient Given Instructions on How to Stop Smoking: No Second Hand Smoke Exposure: No Use of substances other than those prescribed or required for medical reasons: No Currently Displaying Signs/Symptoms of Drug Intoxication Withdrawal: No Any prior treatment program specific to substance use: No Have you been hit, kicked, punched, or otherwise hurt by someone within the past year? If so, by whom?: No Do you feel safe in your current relationship?: Yes Is there a partner from a previous relationship who is making you feel unsafe now?: No Are you made to feel afraid or neglected: No Advance Directives: No Advance Directives Information Provided: Yes Advance Directives Date on File: 09/21/20 Do you have a plan to hurt others: No Plan Recently lost weight without trying: No Eating poorly because of decreased appetite: No Nutrition Risks: No Nutritional Risk service: No Current occupational status: retired Cognitive needs: No Hearing needs: No Vision needs: Yes Meds Allergies Allergy/AdvReac Type Severity Reaction Status Date / Time Penicillins Allergy Severe Anaphylaxis Verified 02/27/24 14:35 hydrochlorothiazide Allergy Unknown Unknown Verified 02/27/24 14:35 lisinopril Allergy Unknown Unknown Verified 02/27/24 14:35 regadenoson [From Lexiscan] AdvReac Bradycardic Verified 02/27/24 14:35 Active Medications: Current Medications Acetaminophen (Acetaminophen 325 Mg Tablet) 650 mg PO Q6H PRN PRN Reason: Pain, Mild (Pain Scale 1-3), fever or headache Atorvastatin Calcium (Atorvastatin Calcium 80 Mg Tablet) 80 mg PO BEDTIME [facility] Last Admin: 02/28/24 03:24 Dose: 80 mg Benzonatate (Benzonatate 100 Mg Capsule) 100 mg PO TID PRN PRN Reason: Cough Budesonide (Budesonide 180 Mcg Aer.Pow.Ba) 2 puff INHALE RBID [facility] Last Admin: 02/28/24 08:45 Dose: Not Given Calcium Carbonate (Calcium Carbonate 750 Mg Tab.Chew) 750 mg PO Q4H PRN PRN Reason: Heartburn Cyanocobalamin (Cyanocobalamin (Vitamin B-12) 1,000 Mcg Tablet) 1,000 mcg PO DAILY [facility] Last Admin: 02/28/24 08:52 Dose: 1,000 mcg Digoxin (Digoxin 0.125 Mg Tablet) 0.125 mg PO MOWEFR [facility]; Protocol Last Admin: 02/28/24 07:28 Dose: 0.125 mg Digoxin (Digoxin 0.5 Mg/2 Ml Ampul) 0.125 mg IVPUSH Q6H [facility]; Protocol Stop: 02/28/24 17:01 Diltiazem HCl (Diltiazem Hcl Cd 180 Mg Cap.Er.24h) 180 mg PO DAILY [facility]; Protocol Last Admin: 02/28/24 06:41 Dose: 180 mg Enoxaparin Sodium (Enoxaparin Sodium 40 Mg/0.4 Ml Syringe) 40 mg SUBCUT Q24H [facility] Last Admin: 02/28/24 04:08 Dose: 40 mg Enoxaparin Sodium (Enoxaparin Sodium 100 Mg/Ml Syringe) 100 mg 1 mg/kg (100 mg) SUBCUT Q12H [facility] Famotidine (Famotidine 20 Mg Tablet) 20 mg PO BID [facility] Last Admin: 02/28/24 08:52 Dose: 20 mg Ferrous Sulfate (Ferrous Sulfate 324 Mg Tablet.) 324 mg PO DAILY [facility] Last Admin: 02/28/24 08:52 Dose: 324 mg Furosemide (Furosemide 20 Mg/2 Ml Vial) 20 mg IVPUSH BID@0900,1800 [facility]; Protocol Last Admin: 02/28/24 10:41 Dose: 20 mg Levothyroxine Sodium (Levothyroxine Sodium 50 Mcg Tablet) 50 mcg PO DAILY@0600 [facility] Last Admin: 02/28/24 06:30 Dose: 50 mcg Metoprolol Tartrate (Metoprolol Tartrate 25 Mg Tablet) 25 mg PO Q6H [facility]; Protocol Non-Formulary Medication (Bqnwjlwcoq-Isuwyktm-Nyqarakcwa [Breztri Aerosphere]) 2 inhalation INHALE BID [facility] Ondansetron HCl (Ondansetron Hcl 4 Mg/2 Ml Vial) 4 mg IVPUSH Q8H PRN PRN Reason: Nausea and Vomiting Prednisone (Prednisone 20 Mg Tablet) 40 mg PO DAILY [facility] Last Admin: 02/28/24 08:32 Dose: 40 mg Tamsulosin HCl (Tamsulosin Hcl 0.4 Mg Capsule) 0.8 mg PO DAILY [facility] Last Admin: 02/28/24 08:32 Dose: 0.8 mg Vitamin D (Cholecalciferol (Vitamin D3) 25 Mcg Tablet) 50 mcg PO DAILY [facility] Last Admin: 02/28/24 08:51 Dose: 50 mcg Home Medications ?Medication ?Instructions ?Recorded ?Confirmed ?Last Taken ?Type adalimumab 40 mg/0.4 mL 40 mg subcut Q2W 10/10/22 02/28/24 02/15/24 History subcutaneous pen kit (Humira(CF) Pen) levothyroxine 50 mcg tablet 50 mcg PO DAILY@0600 02/28/24 02/28/24 02/27/24 History Physical Exam 2 Vital Signs: Vital Signs: Last Vital Signs Temp 98.1 F 02/28/24 10:22 Pulse 103 H 02/28/24 10:22 Resp 16 02/28/24 10:22 BP 120/69 02/28/24 10:22 Pulse Ox 96 02/28/24 10:22 O2 Del Method Nasal Cannula 02/28/24 10:22 O2 Flow Rate 3 02/28/24 10:22 BMI result Body Mass Index 32.2 Const: General: cooperative, comfortable and awake Nutritional Appearance: obese Orientation/consciousness: patient oriented x3 HEENT: Head: Yes normocephalic and Yes atraumatic Neck: Neck: Yes trachea midline, Yes supple and Yes no JVD Resp: Auscultation: crackles bilateral at the base and diminished lung sounds Cardio: Jugular venous distension: no JVD Rate: tachycardic Rhythm: a bnormal rhythm irregularly irregular Heart sounds: S1 normal heart sound present, S2 normal heart sound present, no click, no gallops and no murmurs GI: Auscultation: normal bowel sounds Skin: General skin exam: no rashes or lesions noted and ecchymosis Neuro: General: patient oriented x3 and no focal motor deficits Extrem: General: Yes no clubbing, cyanosis or edema Objective Labs and Meds 02/27/24 15:05 02/28/24 04:39 Lab results: Laboratory Results - last 24 hr 02/27/24 02/27/24 02/27/24 15:05 15:09 15:27 WBC 5.2 RBC 3.14 L Hgb 10.8 L Hct 31.7 L MCV 101.0 H MCH 34.4 H MCHC 34.1 RDW 15.8 Plt Count 138 L MPV 9.2 L Immature Gran % (Auto) 0.6 H Neut % (Auto) 70.8 Lymph % (Auto) 11.6 L Reeves % (Auto) 14.5 H Eos % (Auto) 2.3 Baso % (Auto) 0.2 Lymph # (Auto) 0.6 L Reeves # (Auto) 0.8 Eos # (Auto) 0.1 Baso # (Auto) 0.0 Abs Immat Gran (auto) 0.03 Absolute Neuts (auto) 3.7 Absolute Nucleated RBC 0.000 Nucleated RBC % (auto) 0.0 Hold Purple Top PT 13.2 H INR 1.1 APTT 31.1 VBG pH 7.42 VBG pCO2 40 VBG pO2 40 VBG HCO3 26 VBG O2 Saturation 74.0 VBG Base Excess 2.2 Sodium 139 Potassium 3.1 L D Chloride 105 Carbon Dioxide 24 Anion Gap 13 BUN 23 H Creatinine 0.92 Estim Creat Clear Calc 73.8 Estimated GFR > 60 Random Glucose 129 H Calcium 8.9 Magnesium 1.9 Total Bilirubin 0.9 Direct Bilirubin 0.3 AST 26 ALT 22 Alkaline Phosphatase 138 H Troponin I High Sens 4.0 B-Natriuretic Peptide 300 H Total Protein 7.2 Albumin 3.6 TSH Digoxin Influenza Type A (PCR) NEGATIVE Influenza Type B (PCR) NEGATIVE RSV RNA Qual (PCR) NEGATIVE SARS-CoV-2 RNA (RT-PCR) NEGATIVE 02/28/24 02/28/24 04:39 09:54 WBC RBC Hgb Hct MCV MCH MCHC RDW Plt Count MPV Immature Gran % (Auto) Neut % (Auto) Lymph % (Auto) Reeves % (Auto) Eos % (Auto) Baso % (Auto) Lymph # (Auto) Reeves # (Auto) Eos # (Auto) Baso # (Auto) Abs Immat Gran (auto) Absolute Neuts (auto) Absolute Nucleated RBC Nucleated RBC % (auto) Hold Purple Top SEE NOTE PT INR APTT VBG pH VBG pCO2 VBG pO2 VBG HCO3 VBG O2 Saturation VBG Base Excess Sodium 140 Potassium 3.2 L Chloride 105 Carbon Dioxide 23 Anion Gap 15 BUN 20 H Creatinine 0.88 Estim Creat Clear Calc 77.1 Estimated GFR > 60 Random Glucose 149 H Calcium 8.5 Magnesium 1.8 Total Bilirubin Direct Bilirubin AST ALT Alkaline Phosphatase Troponin I High Sens < 2.7 B-Natriuretic Peptide Total Protein Albumin TSH 2.00 Digoxin 0.6 L Influenza Type A (PCR) Influenza Type B (PCR) RSV RNA Qual (PCR) SARS-CoV-2 RNA (RT-PCR) EKG with atrial fibrillation rapid ventricular response with marked ST depression globally suggestive of ischemia Imaging Radiologist's impression: Impressions Chest X-Ray 02/27/24 14:32 IMPRESSION: Right-sided pleural effusion, moderate volume. Mild interstitial lung edema. Electronically signed by: Grayson Mosher MD 02/27/2024 03:32 PM EST Chest CTA 02/27/24 19:15 IMPRESSION: 1. No acute pulmonary embolus up to the proximal subsegmental level. 2. Lung findings consistent with exacerbation of underlying emphysema in the form of pulmonary edema. Small right pleural effusion. 3. Mediastinal lymphadenopathy, the likely reactive from chronic underlying process. Fleischner guidelines were followed. Electronically signed by: Karri Segovia DO 02/27/2024 10:59 [place] [facility] [place] (1) Decompensated heart failure: Status: Acute Patient presents with progressive symptoms of shortness of breath which to me appear to be related to progressive myocardial ischemia presents with ischemic heart failure. Obtain an echocardiogram to assess for LV systolic and diastolic function regional wall motion abnormality. He had significant rest symptoms with significant myocardial ischemia by EKG with chest pressure with rapid heart rate. Will pursue aggressive rate control approach. See below. Continue anti ischemic therapy. Start him on full-dose Lovenox to replace Eliquis. Gentle diuresis. Strict intake and output chart needs to be pursued. Once he is stabilized from heart failure atrial fibrillation perspective will need cardiac catheterization to evaluate for progressive coronary artery disease which is highly likely in his case. This was discussed with him. Need for cardiac catheterization was discussed. Risks and benefits were discussed. Once stabilized will transfer him to [facility] for cardiac catheterization. He is understanding and agreeing. Continue supportive care with oxygen therapy. (2) Atrial fibrillation with rapid ventricular response: Status: Acute Atrial fibrillation rapid ventricular response. Will rate control him. Obtain echocardiogram. May need to hold diltiazem therapy for now. IV digoxin 0.25 mg IV push x2 doses. Metoprolol 25 mg q.6 hours. Hold Eliquis for now for expected cardiac catheterization in the future. Will follow with you. Greater than 45 minutes was spent in managing his complex care Procedures Date of Service Date of Service: 02/28/24
--- NOTE | 2024-02-28 11:26 | MHC.CM.PN ---
IMM 02/28/24, Pt lives with , Julieta, and she is HCP, which we have on file. PCP is Dr. Delgado, confirmed. Pt is independent, no home health services, for DME he has home O2 from [facility]. [facility] said that he may be going to [facility] for treatment there. CM will follow and assist as needed with DCP.
[2024-02-28 11:32] LABS: INTERNATIONAL NORM RATIO 1.1 (0.9-1.1); Prothrombin Time 12.9 SEC (10.9-12.4)
[2024-02-28 11:35] LABS: Partial Thromboplastin Time 32.7 SEC (26.0-36.8)
[2024-02-28] MEDS: Enoxaparin Sodium 100 MG/ML SYRINGE SUBCUT ×2 (11:54→22:52)
[2024-02-28] MEDS: Digoxin 0.5 MG/2 ML AMPUL 0.125 MG IVPUSH ×2 (11:55→17:14)
[2024-02-28] MEDS: Metoprolol Tartrate 25 MG TABLET PO ×3 (11:55→22:50)
--- NOTE | 2024-02-28 13:11 | P.CONPL_ITS ---
History of Present Illness History of Present Illness Consult date: 02/28/24 Chief complaint: Dyspnea Narrative: 78-year-old gentleman with underlying AFib, COPD on supplemental O2, retention, hyperlipidemia, CAD status post PCI, hypothyroidism admitted on 02/27/2024 with dyspnea AFib with RVR. His CT angio chest demonstrated no evidence of pulmonary emboli, but pulmonary edema instead. He was started on IV diuretic and additional rate control medication with improvement in his AFib with RVR and dyspnea symptoms. Review of Systems 2 Constitutional: Constitutional: Denies daytime sleepiness, Denies excessive sweating, Denies fatigue, Denies fever(s), Denies lethargy, Denies malaise, Denies night sweats, Denies snoring and Denies weight loss Eyes: Eyes: Denies blurry vision and Denies itchy eyes ENT: Denies nasal congestion, Denies post nasal drip, Denies sinus pain, Denies sinus pressure and Denies other ( Thrush) Cardiovascular: Cardiovascular: Denies chest pain, Denies pedal edema, Denies dyspnea, Denies orthopnea and Denies paroxysmal nocturnal dyspnea Respiratory: Respiratory: Denies cough, Denies hemoptysis, Denies excessive phlegm production, Denies dyspnea, Denies snoring and Denies wheezing Gastrointestinal: Gastrointestinal: Denies abdominal pain and Denies heartburn Musculoskeletal: Musculoskeletal: Denies myalgias, Denies arthralgias and Denies joint swelling Integumentary/Breasts: Skin/Breast: Denies rash Neurologic: Denies memory loss and Denies seizure-like activity Psychiatric: Psychiatric: Denies abnormal sleep pattern, Denies anxiety and Denies memory loss Endocrine: Endocrine: Denies excessive sweating, Denies fatigue and Denies heat intolerance Hematologic/Lymphatic: Hematologic/Lymphatic: Denies easy bruising Allergic/Immunologic: Allergic/Immunologic: Denies itchy eyes, Denies seasonal rhinorrhea and Denies wheezing PMFSH Past Medical History Medical History (Updated 02/28/24 @ 13:13 by Kevon Casas MD) Atrial fibrillation with rapid ventricular response Supplemental oxygen dependent ILD (interstitial lung disease) COPD (chronic obstructive pulmonary disease) Tubular adenoma of colon (~2021) Postoperative hypothyroidism Obesity (BMI 30-39.9) Atrial fibrillation Chest discomfort Bronchitis Hemoptysis HOLLOWAY (dyspnea on exertion) Abnormal SPEP Multinodular thyroid Swelling of left lower extremity Pulmonary nodules/lesions, multiple Ground glass opacity present on imaging of lung Wedge compression fracture of T9 vertebra (~2018) Coronary artery disease Hypertension Right renal stone Thyroid nodule Vitamin D deficiency Ascending aorta dilatation Obesity (BMI 30-39.9) Psoriasis Hypercholesterolemia Former smoker Stable angina Family History Family History Father Heart disease Mother Throat cancer Paternal Grandfather Heart disease Surgical History Surgical History Status post AAA (abdominal aortic aneurysm) repair Hx of bilateral cataract extraction (~2022) History of partial thyroidectomy (~2020) History of heart artery stent (~2019) History of colonoscopy History of cardioversion (~2020) History of appendectomy History of tonsillectomy History of lung biopsy (~2016) Social History Social History Household Members: Spouse Housing: House Are you a primary long term care phlebotomist to a significant other at home: No Do you presently have visiting nurse or other home services: No Alcohol intake: former Year quit: 2014 Patient Tobacco Use Status: Former Tobacco user Tobacco use type: Cigarette Years Smoked: 50 Smoked in Last 30 Days: No e-Cigarette/Vaping Use: Former Use Patient Interested in Nicotine Replacement: No Patient Given Instructions on How to Stop Smoking: No Second Hand Smoke Exposure: No Use of substances other than those prescribed or required for medical reasons: No Currently Displaying Signs/Symptoms of Drug Intoxication Withdrawal: No Any prior treatment program specific to substance use: No Have you been hit, kicked, punched, or otherwise hurt by someone within the past year? If so, by whom?: No Do you feel safe in your current relationship?: Yes Is there a partner from a previous relationship who is making you feel unsafe now?: No Are you made to feel afraid or neglected: No Advance Directives: No Advance Directives Information Provided: Yes Advance Directives Date on File: 09/21/20 Do you have a plan to hurt others: No Plan Recently lost weight without trying: No Eating poorly because of decreased appetite: No Nutrition Risks: No Nutritional Risk service: Yes Current occupational status: retired Cognitive needs: No Hearing needs: No Vision needs: Yes Meds Allergies Allergy/AdvReac Type Severity Reaction Status Date / Time Penicillins Allergy Severe Anaphylaxis Verified 02/27/24 14:35 hydrochlorothiazide Allergy Unknown Unknown Verified 02/27/24 14:35 lisinopril Allergy Unknown Unknown Verified 02/27/24 14:35 regadenoson [From Lexiscan] AdvReac Bradycardic Verified 02/27/24 14:35 Active Medications: Current Medications Acetaminophen (Acetaminophen 325 Mg Tablet) 650 mg PO Q6H PRN PRN Reason: Pain, Mild (Pain Scale 1-3), fever or headache Atorvastatin Calcium (Atorvastatin Calcium 80 Mg Tablet) 80 mg PO BEDTIME [facility] Last Admin: 02/28/24 03:24 Dose: 80 mg Benzonatate (Benzonatate 100 Mg Capsule) 100 mg PO TID PRN PRN Reason: Cough Budesonide (Budesonide 180 Mcg Aer.Pow.Ba) 2 puff INHALE RBID [facility] Last Admin: 02/28/24 08:45 Dose: Not Given Calcium Carbonate (Calcium Carbonate 750 Mg Tab.Chew) 750 mg PO Q4H PRN PRN Reason: Heartburn Cyanocobalamin (Cyanocobalamin (Vitamin B-12) 1,000 Mcg Tablet) 1,000 mcg PO DAILY [facility] Last Admin: 02/28/24 08:52 Dose: 1,000 mcg Digoxin (Digoxin 0.125 Mg Tablet) 0.125 mg PO MOWEFR [facility]; Protocol Last Admin: 02/28/24 07:28 Dose: 0.125 mg Digoxin (Digoxin 0.5 Mg/2 Ml Ampul) 0.125 mg IVPUSH Q6H [facility]; Protocol Stop: 02/28/24 17:01 Last Admin: 02/28/24 11:55 Dose: 0.125 mg Diltiazem HCl (Diltiazem Hcl Cd 180 Mg Cap.Er.24h) 180 mg PO DAILY [facility]; Protocol Last Admin: 02/28/24 06:41 Dose: 180 mg Enoxaparin Sodium (Enoxaparin Sodium 40 Mg/0.4 Ml Syringe) 40 mg SUBCUT Q24H [facility] Last Admin: 02/28/24 04:08 Dose: 40 mg Enoxaparin Sodium (Enoxaparin Sodium 100 Mg/Ml Syringe) 100 mg 1 mg/kg (100 mg) SUBCUT Q12H [facility] Last Admin: 02/28/24 11:54 Dose: 100 mg Famotidine (Famotidine 20 Mg Tablet) 20 mg PO BID [facility] Last Admin: 02/28/24 08:52 Dose: 20 mg Ferrous Sulfate (Ferrous Sulfate 324 Mg Tablet.) 324 mg PO DAILY [facility] Last Admin: 02/28/24 08:52 Dose: 324 mg Furosemide (Furosemide 20 Mg/2 Ml Vial) 20 mg IVPUSH BID@0900,1800 [facility]; Protocol Last Admin: 02/28/24 10:41 Dose: 20 mg Levothyroxine Sodium (Levothyroxine Sodium 50 Mcg Tablet) 50 mcg PO DAILY@0600 [facility] Last Admin: 02/28/24 06:30 Dose: 50 mcg Metoprolol Tartrate (Metoprolol Tartrate 25 Mg Tablet) 25 mg PO Q6H [facility]; Protocol Last Admin: 02/28/24 11:55 Dose: 25 mg Non-Formulary Medication (Ewgtfpfoes-Rvbecoal-Nregwtufcg [Breztri Aerosphere]) 2 inhalation INHALE BID [facility] Ondansetron HCl (Ondansetron Hcl 4 Mg/2 Ml Vial) 4 mg IVPUSH Q8H PRN PRN Reason: Nausea and Vomiting Potassium Chloride (Potassium Chloride Packet 20 Meq Packet) 40 meq PO ONCE [facility] Prednisone (Prednisone 20 Mg Tablet) 40 mg PO DAILY [facility] Last Admin: 02/28/24 08:32 Dose: 40 mg Tamsulosin HCl (Tamsulosin Hcl 0.4 Mg Capsule) 0.8 mg PO DAILY [facility] Last Admin: 02/28/24 08:32 Dose: 0.8 mg Vitamin D (Cholecalciferol (Vitamin D3) 25 Mcg Tablet) 50 mcg PO DAILY [facility] Last Admin: 02/28/24 08:51 Dose: 50 mcg Home Medications ?Medication ?Instructions ?Recorded ?Confirmed ?Last Taken ?Type adalimumab 40 mg/0.4 mL 40 mg subcut Q2W 10/10/22 02/28/24 02/15/24 History subcutaneous pen kit (Humira(CF) Pen) levothyroxine 50 mcg tablet 50 mcg PO DAILY@0600 02/28/24 02/28/24 02/27/24 History Physical Exam 2 Vital Signs: Vital Signs: Last Vital Signs Temp 98.3 F 02/28/24 12:00 Pulse 98 02/28/24 12:00 Resp 20 02/28/24 12:00 BP 108/63 02/28/24 12:00 Pulse Ox 96 02/28/24 12:00 O2 Del Method Nasal Cannula 02/28/24 12:00 O2 Flow Rate 4 02/28/24 12:00 BMI result Body Mass Index 32.2 Const: General: no acute distress and alert Nutritional Appearance: not obese Orientation/consciousness: Other orientation findings ( oriented) HEENT: Head: Yes atraumatic Eyes: General: appearance normal, both eyes and all related structures S clerae: sclerae normal EOM: EOMs intact bilaterally Neck: Neck: Yes supple Lymphatic: no lymphadenopathy noted Resp: Effort & Inspection: normal respiratory effort and no use of accessory muscles Auscultation: clear to auscultation bilaterally Cardio: Rate: regular rate Rhythm: regular rhythm Heart sounds: no gallops, no murmurs and no rubs Skin: General skin exam: other ( warm) Extrem: General: No clubbing, No cyanosis and No edema Results Laboratory Findings 02/27/24 15:05 02/28/24 04:39 ABG, PT/INR, D-dimer: PT/INR, D-dimer PT 12.9 SEC (10.9-12.4) H 02/28/24 11:12 INR 1.1 (0.9-1.1) 02/28/24 11:12 Abnormal lab findings: Abnormal Labs 02/27/24 02/28/24 02/28/24 15:05 04:39 09:54 RBC 3.14 L Hgb 10.8 L Hct 31.7 L MCV 101.0 H MCH 34.4 H Plt Count 138 L MPV 9.2 L Immature Gran % (Auto) 0.6 H Lymph % (Auto) 11.6 L Fallon % (Auto) 14.5 H Lymph # (Auto) 0.6 L PT 13.2 H Potassium 3.1 L D 3.2 L BUN 23 H 20 H Random Glucose 129 H 149 H Alkaline Phosphatase 138 H B-Natriuretic Peptide 300 H Digoxin 0.6 L 02/28/24 11:12 RBC Hgb Hct MCV MCH Plt Count MPV Immature Gran % (Auto) Lymph % (Auto) Fallon % (Auto) Lymph # (Auto) PT 12.9 H Potassium BUN Random Glucose Alkaline Phosphatase B-Natriuretic Peptide Digoxin Assessment and Plan (1) HOLLOWAY (dyspnea on exertion): Status: Acute (2) Acute on chronic hypoxic respiratory failure: Status: Acute (3) Atrial fibrillation with rapid ventricular response: Status: Acute Plan Impression: 78-year-old gentleman with underlying AFib and COPD on supplemental oxygen admitted with dyspnea and acute hypoxic respiratory failure secondary to decompensation of underlying congestive failure and AFib with RVR, now improved with diuresis and rate control. No evidence of COPD exacerbation at this time. Patient is being evaluated by Cardiology service with plans for possible coronary angiography. Recommendations: Agree with continuation of his home regimen of bronchodilators. No evidence of COPD exacerbation, does not require systemic glucocorticoids at this time. Procedures Date of Service Date of Service: 02/28/24
--- NOTE | 2024-02-28 20:18 | ECG_ITS ---
Test Reason : chest pains Blood Pressure : / mmHG Vent. Rate : 067 BPM Atrial Rate : 000 BPM P-R Int : 000 ms QRS Dur : 082 ms QT Int : 386 ms P-R-T Axes : 000 017 031 degrees QTc Int : 407 ms Atrial fibrillation Abnormal ECG When compared to the previous EKG of ST no longer depressed in Vent. rate has decreased Referred By: Alyse Cobos Electronically Signed By:MIAH FERMIN MD
[2024-02-29] VITALS (10 sets, daily range): BP systolic 103–133; BP diastolic 63–76; PULSE 50–95; RESP 16–20; TEMP 36.2–36.9; O2SAT 93–98
[2024-02-29] MEDS: Levothyroxine Sodium 50 MCG TABLET PO (05:47)
[2024-02-29] MEDS: Metoprolol Tartrate 25 MG TABLET PO ×2 (05:47→11:25)
[2024-02-29 07:10] LABS: Hematocrit 30.1 % (42.0-52.0); Mean Corpuscular HGB Conc 33.2 g/dl (31.0-36.0); Mean Corpuscular Hemoglobin 33.4 pg (27.0-33.0); Mean Corpuscular Volume 100.7 fL (80.0-98.0); Mean Platelet Volume 10.1 fL (9.4-12.4); Platelet Count 157 X10*3/uL (160-400); Red Blood Count 2.99 X10*6/uL (4.60-5.80); Red Cell Distribution Width 15.2 % (11.0-16.0); White Blood Count 7.7 X10*3/uL (4.8-10.8)
[2024-02-29] MEDS: Tamsulosin HCL 0.4 MG CAPSULE 0.8 MG PO (08:08)
[2024-02-29] MEDS: Famotidine 20 MG TABLET PO ×2 (08:08→20:22)
[2024-02-29] MEDS: Cholecalciferol (Vitamin D3) 25 MCG TABLET 50 MCG PO (08:09)
[2024-02-29] MEDS: Ferrous Sulfate 324 MG TABLET.DR PO (08:09)
[2024-02-29] MEDS: predniSONE 20 MG TABLET 40 MG PO (08:09)
[2024-02-29] MEDS: Furosemide 20 MG/2 ML VIAL IVPUSH ×2 (08:09→17:08)
[2024-02-29] MEDS: dilTIAZem HCL CD 180 MG CAP.ER.24H PO (08:09)
[2024-02-29] MEDS: Cyanocobalamin (Vitamin B-12) 1,000 MCG TABLET 1000 MCG PO (08:09)
--- NOTE | 2024-02-29 09:31 | PM.PNCARD ---
Subjective Subjective Date of Service: 02/29/24 Principal diagnosis: Heart failure, myocardial ischemia, atrial fibrillation Interval history: No longer is having chest pain. Shortness of breath is improved and his diuresed overnight. Heart rate is much better control. Feeling a lot better. Echocardiogram showed preserved LV ejection fraction. Potassium noted to be 3.2 Review of Systems Constitutional: Reports no additional constitutional complaints Cardiovascular: Reports no additional cardiovascular complaints Respiratory: Reports no additional respiratory complaints Gastrointestinal: Reports no additional gastrointestinal complaints Skin/Breast: Reports system reviewed and no additional complaints, except as docu Psychiatric: Reports no additional psychiatric complaints Allergic/Immunologic: Reports no additional allergic/immunologic complaints Physical Exam Vital Signs: Last Vital Signs Temp 97.5 F 02/29/24 07:44 Pulse 74 02/29/24 07:44 Resp 20 02/29/24 07:44 BP 116/76 02/29/24 07:44 Pulse Ox 97 02/29/24 07:44 O2 Del Method Nasal Cannula 02/29/24 07:44 O2 Flow Rate 2 02/29/24 07:44 BMI result Body Mass Index 32.2 Const General: cooperative, comfortable and awake Nutritional Appearance: obese Orientation/consciousness: patient oriented x3 HEENT Head: Yes normocephalic and Yes atraumatic Neck Neck: Yes trachea midline, Yes supple and Yes no JVD Resp Auscultation: clear to auscultation bilaterally and diminished lung sounds Cardio Jugular venous distension: no JVD Rate: regular rate Rhythm: abnormal rhythm irregularly irregular Heart sounds: S1 normal heart sound present, S2 normal heart sound present, no click, no gallops and no murmurs GI Auscultation: normal bowel sounds Skin General skin exam: no rashes or lesions noted and ecchymosis Neuro General: patient oriented x3 and no focal motor deficits Extrem General: Yes no clubbing, cyanosis or edema Objective Labs and Meds 02/29/24 06:37 02/28/24 04:39 Lab results: Laboratory Results - last 24 hr 02/28/24 02/28/24 02/29/24 09:54 11:12 06:37 WBC 7.7 RBC 2.99 L Hgb 10.0 L Hct 30.1 L MCV 100.7 H MCH 33.4 H MCHC 33.2 RDW 15.2 Plt Count 157 L MPV 10.1 Absolute Nucleated RBC 0.000 Nucleated RBC % (auto) 0.0 PT 12.9 H INR 1.1 APTT 32.7 Troponin I High Sens < 2.7 Digoxin 0.6 L Progress Note: A&P Assessment and plan (1) Decompensated heart failure: Status: Acute Assessment and Plan: Decompensated congestive heart failure most likely related to myocardial ischemia and progressive CAD. Clinically improved with gentle diuresis and rate control. Will require cardiac catheterization to further evaluate coronary anatomy. Anticipate transfer to [facility] tomorrow. Continue gentle diuresis. Continue rate control. Strict intake and output chart. Replace potassium. Trend BMP and BNP tomorrow. Out of bed to chair. Continue treat underlying pulmonary parenchymal disease with oxygen replacement therapy. Incentive spirometry. (2) Atrial fibrillation with rapid ventricular response: Status: Acute Assessment and Plan: Atrial fibrillation with adequate rate control. Continue current rate control therapy. Currently on Lovenox. Lovenox will need to be withheld after tomorrow morning's dose. Hold off on Eliquis therapy at this point time. Will follow with you Time Spent With Patient Time: Total time managing care of this patient today ____ minutes. Progress Note: Quality Stroke Does the patient have a stroke diagnosis?: No Procedures Date of Service Date of Service: 02/29/24
--- NOTE | 2024-02-29 09:41 | ECG_ITS ---
Test Reason : CP Blood Pressure : / mmHG Vent. Rate : 131 BPM Atrial Rate : 000 BPM P-R Int : 000 ms QRS Dur : 072 ms QT Int : 270 ms P-R-T Axes : 000 -11 169 degrees QTc Int : 398 ms Atrial fibrillation with rapid ventricular response with premature ventricular or aberrantly conducted complexes Anterior infarct , age undetermined ST more depressed Abnormal ECG When compared with ECG of 28-FEB-2024 20:20, Vent. rate has increased BY 64 BPM Anterior infarct is now Present ST now depressed in Inferior leads ST now depressed in Lateral leads T wave inversion now evident in Lateral leads Referred By: Alyse Cobos Electronically Signed By:MIAH FERMIN MD
[2024-02-29] MEDS: Enoxaparin Sodium 100 MG/ML SYRINGE SUBCUT (11:25)
[2024-02-29 11:30] LABS: INTERNATIONAL NORM RATIO 1.1 (0.9-1.1); Prothrombin Time 12.3 SEC (10.9-12.4)
--- NOTE | 2024-02-29 14:13 | P.PNIM_ITS ---
Subjective Subjective Date of Service: 02/29/24 Physical Exam 2 Vital Signs: Vital Signs: Last Vital Signs Temp 98.5 F 02/29/24 11:13 Pulse 70 02/29/24 11:13 Resp 20 02/29/24 11:13 BP 103/64 02/29/24 11:13 Pulse Ox 95 02/29/24 11:13 O2 Del Method Nasal Cannula 02/29/24 11:13 O2 Flow Rate 1.5 02/29/24 11:13 BMI result Body Mass Index 32.2 Objective Data Active Medications Acetaminophen (Acetaminophen 325 Mg Tablet) 650 mg PO Q6H PRN PRN Reason: Pain, Mild (Pain Scale 1-3), fever or headache Atorvastatin Calcium (Atorvastatin Calcium 80 Mg Tablet) 80 mg PO BEDTIME [facility] Last Admin: 02/28/24 20:32 Dose: 80 mg Documented By: JOLIE Benzonatate (Benzonatate 100 Mg Capsule) 100 mg PO TID PRN PRN Reason: Cough Calcium Carbonate (Calcium Carbonate 750 Mg Tab.Chew) 750 mg PO Q4H PRN PRN Reason: Heartburn Cyanocobalamin (Cyanocobalamin (Vitamin B-12) 1,000 Mcg Tablet) 1,000 mcg PO DAILY [facility] Last Admin: 02/29/24 08:09 Dose: 1,000 mcg Documented By: LAILA Digoxin (Digoxin 0.125 Mg Tablet) 0.125 mg PO MOWEFR [facility]; Protocol Last Admin: 02/28/24 07:28 Dose: 0.125 mg Documented By: ARNOLD Diltiazem HCl (Diltiazem Hcl Cd 180 Mg Cap.Er.24h) 180 mg PO DAILY [facility]; Protocol Last Admin: 02/29/24 08:09 Dose: 180 mg Documented By: LAILA Enoxaparin Sodium (Enoxaparin Sodium 100 Mg/Ml Syringe) 100 mg 1 mg/kg (100 mg) SUBCUT Q12H [facility] Last Admin: 02/29/24 11:25 Dose: 100 mg Documented By: LAILA Famotidine (Famotidine 20 Mg Tablet) 20 mg PO BID [facility] Last Admin: 02/29/24 08:08 Dose: 20 mg Documented By: LAILA Ferrous Sulfate (Ferrous Sulfate 324 Mg Tablet.) 324 mg PO DAILY [facility] Last Admin: 02/29/24 08:09 Dose: 324 mg Documented By: LAILA Furosemide (Furosemide 20 Mg/2 Ml Vial) 20 mg IVPUSH BID@0900,1800 [facility]; Protocol Last Admin: 02/29/24 08:09 Dose: 20 mg Documented By: LAILA Levothyroxine Sodium (Levothyroxine Sodium 50 Mcg Tablet) 50 mcg PO DAILY@0600 [facility] Last Admin: 02/29/24 05:47 Dose: 50 mcg Documented By: NEWTON Metoprolol Tartrate (Metoprolol Tartrate 25 Mg Tablet) 25 mg PO Q6H [facility]; Protocol Last Admin: 02/29/24 11:25 Dose: 25 mg Documented By: LAILA Nitroglycerin (Nitroglycerin 0.4 Mg Tab.Subl) 0.4 mg SUBLINGUAL Q5MX3 PRN PRN Reason: Chest Pain Patient Own Medication ( Budesonide/Glycopyrrolate/Formoterol) 2 each INHALE RBID [facility] Ondansetron HCl (Ondansetron Hcl 4 Mg/2 Ml Vial) 4 mg IVPUSH Q8H PRN PRN Reason: Nausea and Vomiting Potassium Chloride (Potassium Chloride Packet 20 Meq Packet) 40 meq PO ONCE [facility] Prednisone (Prednisone 20 Mg Tablet) 40 mg PO DAILY [facility] Last Admin: 02/29/24 08:09 Dose: 40 mg Documented By: LAILA Tamsulosin HCl (Tamsulosin Hcl 0.4 Mg Capsule) 0.8 mg PO DAILY [facility] Last Admin: 02/29/24 08:08 Dose: 0.8 mg Documented By: LAILA Vitamin D (Cholecalciferol (Vitamin D3) 25 Mcg Tablet) 50 mcg PO DAILY [facility] Last Admin: 02/29/24 08:09 Dose: 50 mcg Documented By: LAILA Labs 02/29/24 06:37 02/28/24 04:39 Labs: Laboratory Results - last 24 hr 02/29/24 02/29/24 06:37 11:10 MCV 100.7 H MCH 33.4 H MCHC 33.2 RDW 15.2 Plt Count 157 L MPV 10.1 Absolute Nucleated RBC 0.000 Nucleated RBC % (auto) 0.0 PT 12.3 INR 1.1 Assessment and Plan (1) Decompensated heart failure: Status: Acute Plan 78 years old male with PMH of COPD on 2L, ILD, CHF, BPH, Afib on eliquis among others presenting to the hospital with worsening HOLLOWAY. Acute on chronic diastolic heart failure exacerbation CT showing pulmonary edema BNP at 300 IV lasix bid monitor I\O tx to [facility] [place] in the morning for cath ILD w exacerbation reported changes on CT scan, worsening respiratory status overall IV steroids, start PO Prednisone in morning bronchodilator neb pulm eval> symptoms secondary to CHF Afib Cardizem, Metoprolol, Eliquis, Digoxine HLD, Statin Hypothyroid, Levothyroxine DVT PPx , Eliquis Attending Dr. Mcqueen Quality Stroke Does the patient have a stroke diagnosis?: No VTE Prior VTE?: No VTE Risk Level:: Medical - moderate - high VTE Device Contraindication: Treatment Not Indicated VTE Drug Contraindication: N/A - Med Ordered
[2024-02-29] MEDS: BREZTRI 2 EACH INHALE (19:06)
[2024-02-29] MEDS: Atorvastatin Calcium 80 MG TABLET PO (20:21)
[2024-03-01] VITALS: BP 161/88; PULSE 92; RESP 20; TEMP 36.2; O2SAT 98
[2024-03-01 00:42] VITALS: BP 161/87; PULSE 99
[2024-03-01] MEDS: Metoprolol Tartrate 25 MG TABLET PO ×2 (00:43→10:51)
[2024-03-01] MEDS: Enoxaparin Sodium 100 MG/ML SYRINGE SUBCUT ×2 (00:43→10:51)
[2024-03-01 04:00] VITALS: BP 146/85; PULSE 91; RESP 20; TEMP 36.3; O2SAT 95
[2024-03-01 06:19] VITALS: PULSE 58
[2024-03-01] MEDS: Levothyroxine Sodium 50 MCG TABLET PO (06:22)
--- NOTE | 2024-03-01 07:45 | PM.DS ---
DS: Providers Provider Date of Service: 03/01/24 Date of admission: 02/28/24 09:30 Primary care physician: Oswaldo Delgado MD Consults: 02/28/24 01:49 Consult to Pulmonology Routine Consulting Provider: [facility] Reason for consultation: worsening respiratory status, HOLLOWAY 02/28/24 07:29 Consult to Cardiology Routine Consulting Provider: [facility] Reason for consultation: chf, afib rvr Has provider been notified: No DS: Diagnosis Discharge Diagnosis (1) Decompensated heart failure: Status: Acute DS: Summary Hospital Course Hospital Course: History and physical as per admitting provider. A 78 years old male with PMH of COPD on 2L, ILD, CHF, BPH, Afib on eliquis among others presenting to the hospital with worsening HOLLOWAY. The patient wa at the pulmonary rehab as he reports worsening dyspnea with short distances and being unable to lay flat to sleep. No chest pain, palpitations, fever, chills, cough, wheezing, nausea, vomiting, diarrhea or urinary symptoms. In ED noticed to became dyspneic with Tachcardia in 140s and tachypnea in 30s as he makes few steps. No hypoxia noted so as he is tolerating on 3L. BNP mildly elevated but lower than usualy. CT scan showing pulm edema and small effusion with signs of inflammatory reaction. admitted for further evaluation and management. 78-year-old man treated for acute on chronic diastolic heart failure exacerbation with a chest CT showing pulmonary edema, BNP 300, treated with IV Lasix twice daily. He also appeared to have interstitial lung disease with exacerbation with respiratory status worsening overall. Treated with IV steroids and oral prednisone as well as bronchodilators. Seen evaluated by pulmonology who thought symptoms were more related to cardiac issue including the congestive heart failure. Seen evaluated by Cardiology who recommends transfer to [facility] for cardiac catheterization secondary to likely ischemic changes from congestive heart failure. Patient did receive IV Lovenox this morning but should be held for the evening in light of possible cardiac catheterization tomorrow. Patient did have an episode of atrial fibrillation with rapid ventricular response overnight, his Cardizem, metoprolol and digoxin should be continued and actually digoxin increased to 0.125 mg daily. HLD, Statin Hypothyroid, Levothyroxine Time Attestation Discharge Coordination Time (in mins): 42 Quality: Safe Use of Opioids Does Pt have an Active Cancer Diagnosis on the Problem List?: No Quality: Stroke Does the patient have a stroke diagnosis?: No Physical Exam Vital Signs: Vital Signs: Last Vital Signs Temp 97.3 F 03/01/24 04:00 Pulse 58 03/01/24 06:19 Resp 20 03/01/24 04:00 BP 146/85 H 03/01/24 04:00 Pulse Ox 95 03/01/24 04:00 O2 Del Method Nasal Cannula 03/01/24 04:00 O2 Flow Rate 1.5 02/29/24 11:13 BMI result Body Mass Index 32.2 Appearing in no acute distress head is normocephalic atraumatic eyes pupils are PERRLA sclera is anicteric mouth throat mucous membranes are intact and moist neck is supple no lymphadenopathy, no JVD noted lung sounds are clear to auscultation heart regular rate rhythm, clear S1, S2 positive bowel sounds, abdomen is soft, nontender neuro patient is alert x3, no focal deficits DS: Data Data Completed and Pending Completed studies during hospitalization [Text1]: Procedures Druze of Cardiac Rhythm, Single (04/01/20) Restriction of Abdominal Aorta with Intraluminal Device, Percutaneous Approach (07/15/23) Transfusion of Nonautologous Red Blood Cells into Peripheral Vein, Percutaneous Approach (11/10/23) Labs on day of discharge: Laboratory Results - last 24 hr 02/29/24 11:10 PT 12.3 INR 1.1 Discharge Plan Discharge Anticipated Discharge Date/Time: 03/01/24 07:42 Patient Disposition: [facility] Discharge Diagnosis: Acute on chronic diastolic heart failure exacerbation Interstitial lung disease Referrals: [facility] [Outside] - 1 Week Po,Oswaldo Deng MD [Primary Care Provider] - 1 Week Discharge Medications: Continued (DME) OXYGEN 2 L NC keep sats > 90 See Rx Instructions .Route .MEDSUPPLY Qty: 1 0RF Rx Instructions: As directed (DME) PORTABLE OXYGEN TANK See Rx Instructions .Route .MEDSUPPLY Qty: 1 0RF Rx Instructions: As directed cyanocobalamin (vitamin B-12) [Vitamin B-12] 1,000 mcg tablet 1,000 mcg PO DAILY Qty: 90 3RF cholecalciferol (vitamin D3) 50 mcg (2,000 unit) capsule 50 mcg PO DAILY Qty: 90 3RF furosemide [Lasix] 20 mg tablet 20 mg PO DAILY Qty: 90 3RF atorvastatin 80 mg tablet 80 mg PO BEDTIME Qty: 90 2RF diltiazem HCl 180 mg capsule,ext.rel 24h degradable 180 mg PO DAILY Qty: 90 3RF metoprolol tartrate 25 mg tablet 75 mg PO BID 30 Days Qty: 180 5RF Rx Instructions: Three tablets twice daily tamsulosin 0.4 mg capsule 0.8 mg PO DAILY Qty: 60 3RF levothyroxine 50 mcg tablet 50 mcg PO DAILY@0600 (DME) compress.stocking,knee,reg,med Misc See Rx Instructions .Route Qty: 2 0RF Rx Instructions: As directed 20-30 mm HG ferrous sulfate 325 mg (65 mg iron) tablet,delayed release (DR/EC) 325 mg PO DAILY 90 Days Qty: 90 1RF famotidine 20 mg tablet 20 mg PO BID 90 Days Qty: 180 1RF Humira(CF) Pen 40 mg/0.4 mL pen injector kit 40 mg subcut Q2W Rx Instructions: Every 2 weeks on SA or TOLBERT Breztri Aerosphere 160-9-4.8 mcg/actuation HFA aerosol inhaler 2 inh inhalation BID Qty: 10.7 6RF Changed digoxin 125 mcg (0.125 mg) tablet 125 mcg PO DAILY 90 Days Qty: 39 3RF Held Eliquis 5 mg tablet 5 mg PO BID 90 Days Qty: 180 3RF Hold Instructions: Resume on 03/03/24. Discharge Orders: Discharge Order (Routine); Ordered 03/01/24 Ordered By: Charlette Wise Diet: Advance to usual diet Activity on Discharge: As tolerated Stand Alone Forms: Patient Portal Discharge page Print Language: Malay Care Plan Goals: Transfer to [facility] for cardiac catheterization Health Concerns: Acute on chronic diastolic heart failure exacerbation Interstitial lung disease Plan of Treatment: Follow up with the primary care provider when discharge from tertiary care facility Assessment: See discharge summary
[2024-03-01] MEDS: BREZTRI 2 EACH INHALE (07:57)
[2024-03-01 08:00] VITALS: BP 121/66; PULSE 87; RESP 20; TEMP 36.7; O2SAT 98
[2024-03-01 08:01] VITALS: PULSE 87; RESP 16; O2SAT 98
[2024-03-01] MEDS: Ferrous Sulfate 324 MG TABLET.DR PO (08:42)
[2024-03-01] MEDS: Cyanocobalamin (Vitamin B-12) 1,000 MCG TABLET 1000 MCG PO (08:42)
[2024-03-01] MEDS: Famotidine 20 MG TABLET PO (08:42)
[2024-03-01] MEDS: dilTIAZem HCL CD 180 MG CAP.ER.24H PO (08:42)
[2024-03-01] MEDS: predniSONE 20 MG TABLET 40 MG PO (08:42)
[2024-03-01] MEDS: Tamsulosin HCL 0.4 MG CAPSULE 0.8 MG PO (08:42)
[2024-03-01] MEDS: Cholecalciferol (Vitamin D3) 25 MCG TABLET 50 MCG PO (08:42)
[2024-03-01] MEDS: Furosemide 20 MG/2 ML VIAL IVPUSH (08:44)
--- NOTE | 2024-03-01 10:05 | PM.PNCARD ---
Subjective Subjective Date of Service: 03/01/24 Principal diagnosis: Heart failure, myocardial ischemia, atrial fibrillation Interval history: Patient is feeling better. Last night again had rapid heart rate response and had EKG changes. This morning heart rate is better controlled. Patient denies any chest pain. Denies any palpitations. Currently all on medications. Review of Systems Constitutional: Reports no additional constitutional complaints Cardiovascular: Denies chest pain, Reports rapid heart rate, Denies lightheadedness, Denies Loss of Consciousness and Reports dyspnea on exertion Respiratory: Reports dyspnea on exertion Genitourinary: Reports no additional male genitourinary complaints Reports system reviewed and no additional complaints, except as documented Physical Exam Vital Signs: Last Vital Signs Temp 98.0 F 03/01/24 08:00 Pulse 87 03/01/24 08:01 Resp 16 03/01/24 08:01 BP 121/66 03/01/24 08:00 Pulse Ox 98 03/01/24 08:00 O2 Del Method Nasal Cannula 03/01/24 08:00 O2 Flow Rate 3 03/01/24 08:00 BMI result Body Mass Index 32.2 Const General: cooperative, comfortable and awake Nutritional Appearance: obese Orientation/consciousness: patient oriented x3 HEENT Head: Yes normocephalic and Yes atraumatic Neck Neck: Yes trachea midline, Yes supple and Yes no JVD Resp Auscultation: clear to auscultation bilaterally and diminished lung sounds Cardio Jugular venous distension: no JVD Rate: regular rate Rhythm: abnormal rhythm irregularly irregular Heart sounds: S1 normal heart sound present, S2 normal heart sound present, no click, no gallops and no murmurs GI Auscultation: normal bowel sounds Skin General skin exam: no rashes or lesions noted and ecchymosis Neuro General: patient oriented x3 and no focal motor deficits Extrem General: Yes no clubbing, cyanosis or edema Objective Labs and Meds 02/29/24 06:37 02/28/24 04:39 Lab results: Laboratory Results - last 24 hr 02/29/24 11:10 PT 12.3 INR 1.1 Progress Note: A&P Assessment and plan (1) Decompensated heart failure: Status: Acute Assessment and Plan: Heart failure is doing well at this point time. Switch to p.o. Lasix 40 mg daily. Most likely appears to be ischemia driven heart failure. Would suggest a cardiac catheterization. Will arrange for transfer to [facility] today. Discussed potential outcomes with cardiac catheterization. Also discussed risks and benefits with him. He understands agrees. Hold Lovenox tonight. Keep him NPO past midnight. Further treatment based on the findings of cardiac catheterization. (2) Atrial fibrillation with rapid ventricular response: Status: Acute Assessment and Plan: Atrial fibrillation with rapid ventricular response which is better controlled. Overnight had some faster heart rate. Continue current rate control strategy. LV ejection fraction is preserved. Increase digoxin to 0.125 mg daily. Hold off on anticoagulation later tonight for cardiac catheterization tomorrow. Thank you for allowing me to partake in his care Time Spent With Patient Time: Total time managing care of this patient today ____ minutes. Progress Note: Quality Stroke Does the patient have a stroke diagnosis?: No Procedures Date of Service Date of Service: 03/01/24
--- NOTE | 2024-03-01 10:40 | MHC.CM.PN ---
Per BUSINESS DEVELOPMENT SALES EXECUTIVE, Patient will be transferred to [facility].
== END 2024-03-01 12:30 | disposition short-term general hospital (02) | DRG 291 ==
LOC: HO.ED 02-28 00:53 → HO.EDOVER 02-28 02:07 → HO.IMC 02-28 06:00
PROVIDERS: Physician Assistant Medical; Admitting Provider Student in an Organized Health Care Education/Training Program; Emergency Provider Internal Medicine; PCP Internal Medicine; Visit Provider Nurse Practitioner Acute Care
DX: I11.0 Hypertensive heart disease with heart failure (principal); I50.33 Acute on chronic diastolic (congestive) heart failure; J96.21 Acute and chronic respiratory failure with hypoxia; J84.9 Interstitial pulmonary disease, unspecified; J44.9 Chronic obstructive pulmonary disease, unspecified; I48.0 Paroxysmal atrial fibrillation; E03.9 Hypothyroidism, unspecified; J84.10 Pulmonary fibrosis, unspecified; I25.10 Atherosclerotic heart disease of native coronary artery without angina pectoris; E78.5 Hyperlipidemia, unspecified; Z20.822 Contact with and (suspected) exposure to COVID-19; Z95.5 Presence of coronary angioplasty implant and graft; Z99.81 Dependence on supplemental oxygen; Z87.891 Personal history of nicotine dependence; Z79.01 Long term (current) use of anticoagulants; Z79.620 Long term (current) use of immunosuppressive biologic; Z79.890 Hormone replacement therapy; Z79.899 Other long term (current) drug therapy
CPT/HCPCS: 0241U; 36415; 71046; 71275; 80048; 80076; 80162; 82803; 83735; 83880; 84443; 84484; 85025; 85027; 85610; 85730; 93005; 93306; 94640; 97162; 99222; 99285; J1160; J1650; J1940; J2919; Q9957; Q9967

== ENCOUNTER → 2024-02-27 14:32 | Outpatient (BNV) | payer MEDICARE, SELFPAY ==
[2024-02-07 11:25] VITALS: BMI 32.0
== END ==
PROVIDERS: Admitting Provider Student in an Organized Health Care Education/Training Program; Emergency Provider Internal Medicine; PCP Internal Medicine; Visit Provider Internal Medicine Cardiovascular Disease
DX: R06.00 Dyspnea, unspecified (principal)
CPT/HCPCS: 93010

== ENCOUNTER → 2024-02-27 14:32 | Outpatient (BNV) | payer MEDICARE, SELFPAY ==
[2024-02-07 11:25] VITALS: BMI 32.0
== END ==
PROVIDERS: PCP Internal Medicine; Visit Provider Radiology Diagnostic Radiology
DX: R06.02 Shortness of breath (principal)
CPT/HCPCS: 71046

== ENCOUNTER 2024-02-28 01:50 | Outpatient (BNV) | payer MEDICARE, SELFPAY ==
[2024-02-07 11:25] VITALS: BMI 32.0
== END 2024-02-28 06:35 ==
PROVIDERS: Admitting Provider Student in an Organized Health Care Education/Training Program; Emergency Provider Internal Medicine; PCP Internal Medicine; Visit Provider Internal Medicine Cardiovascular Disease
DX: R07.9 Chest pain, unspecified (principal)
CPT/HCPCS: 93010; 93306

== ENCOUNTER → 2024-02-28 01:50 | Outpatient (BNV) | payer MEDICARE, SELFPAY ==
[2024-02-07 11:25] VITALS: BMI 32.0
== END ==
PROVIDERS: Admitting Provider Student in an Organized Health Care Education/Training Program; Emergency Provider Internal Medicine; PCP Internal Medicine; Visit Provider Student in an Organized Health Care Education/Training Program
DX: R06.09 Other forms of dyspnea (principal); I50.33 Acute on chronic diastolic (congestive) heart failure; J84.9 Interstitial pulmonary disease, unspecified; I48.91 Unspecified atrial fibrillation
CPT/HCPCS: 99223; 99232; 99499

== ENCOUNTER 2024-02-28 09:30 | Outpatient (BNV) | payer MEDICARE, SELFPAY ==
[2024-02-07 11:25] VITALS: BMI 32.0
== END 2024-02-29 09:41 ==
PROVIDERS: Admitting Provider Student in an Organized Health Care Education/Training Program; Emergency Provider Internal Medicine; PCP Internal Medicine; Visit Provider Internal Medicine Cardiovascular Disease
DX: R07.9 Chest pain, unspecified (principal)
CPT/HCPCS: 93010

== ENCOUNTER → 2024-02-28 09:30 | Outpatient (BNV) | payer MEDICARE, SELFPAY ==
[2024-02-07 11:25] VITALS: BMI 32.0
== END ==
PROVIDERS: Admitting Provider Student in an Organized Health Care Education/Training Program; Emergency Provider Internal Medicine; PCP Internal Medicine; Visit Provider Internal Medicine Pulmonary Disease
DX: J96.21 Acute and chronic respiratory failure with hypoxia (principal); I48.91 Unspecified atrial fibrillation
CPT/HCPCS: 99222

== ENCOUNTER → 2024-02-28 09:30 | Outpatient (BNV) | payer MEDICARE, SELFPAY ==
[2024-02-07 11:25] VITALS: BMI 32.0
== END ==
PROVIDERS: Admitting Provider Student in an Organized Health Care Education/Training Program; Emergency Provider Internal Medicine; PCP Internal Medicine; Visit Provider Internal Medicine Cardiovascular Disease
DX: I50.9 Heart failure, unspecified (principal); I48.91 Unspecified atrial fibrillation
CPT/HCPCS: 99223; 99233

== ENCOUNTER → 2024-03-02 23:59 | Outpatient (BNV) | payer MEDICARE, SELFPAY ==
[2024-02-07 11:25] VITALS: BMI 32.0
== END ==
PROVIDERS: PCP Internal Medicine; Visit Provider Internal Medicine Cardiovascular Disease
DX: I21.4 Non-ST elevation (NSTEMI) myocardial infarction (principal); I50.9 Heart failure, unspecified
CPT/HCPCS: 92928; 92978; 93458; 99152

== ENCOUNTER 2024-03-16 09:08 | Outpatient (AMB) | payer MEDICARE, SELFPAY ==
[2024-02-07 11:25] VITALS: BMI 32.0
[2024-03-16 09:20] VITALS: BP 130/60; PULSE 82; BMI 29.0
--- NOTE | 2024-03-16 09:20 | A.OFFVIS_ITS ---
Vital Signs 03/16/24 09:20 Height 5 ft 9 in Weight 196 lb 10.437 oz BMI 29.0 BP 130/60 Blood Pressure Location Lt brachial Position Sitting Pulse 82 Pulse Source Monitor Intake Visit Reasons: 4m follow up Intake Note: 4 mth f/up/ cath 03/02/ pt have been having excise SOB, Die Reamer Required: No Accompanied by: Spouse Allergies Penicillins Allergy (Severe, Verified 02/27/24 14:35) Anaphylaxis hydrochlorothiazide Allergy (Unknown, Verified 02/27/24 14:35) Unknown lisinopril Allergy (Unknown, Verified 02/27/24 14:35) Unknown regadenoson [From Lexiscan] Adverse Reaction (Verified 02/27/24 14:35) Bradycardic Medication List - Last Reconciled 03/16/24 by Ja Jean-Baptiste MD adalimumab (Humira(CF) Pen) 40 mg subcut Q2W apixaban (Eliquis) 5 mg PO BID 90 days atorvastatin 80 mg PO BEDTIME [id number] 160-9-4.8 mcg/actuation (Breztri Aerosphere) 2 inhalations inhalation BID cholecalciferol (vitamin D3) 50 mcg PO DAILY clopidogrel 75 mg PO DAILY compress.stocking,knee,reg,med As directed 20-30 mm HG cyanocobalamin (vitamin B-12) (Vitamin B-12) 1,000 mcg PO DAILY digoxin 125 mcg PO DAILY 90 days diltiazem HCl ER 180 mg PO DAILY famotidine 20 mg PO BID 90 days ferrous sulfate 325 mg PO DAILY 90 days furosemide (Lasix) 20 mg PO BID levothyroxine 50 mcg PO DAILY@0600 metoprolol tartrate 75 mg (3 x 25 mg) PO BID 30 days [OXYGEN 2 L NC keep sats > 90 As directed] [PORTABLE OXYGEN TANK As directed] tamsulosin 0.8 mg (2 x 0.4 mg) PO DAILY HPI Comments Details: 78-year-old gentleman here for follow-up. He is denying any chest discomfort No bleeding issues. Has been in chronic atrial fibrillation. Overall doing old without any significant bleeding issues or chest discomfort. Compliant with medications. He has dyspnea on exertion and has underlying lung disease. He is saying he has been started on supplemental oxygen which she is supposed to wear with activities. He previously had RCA PCI and his presentation was with dyspnea at that time too. He is saying that his lung disease is progressed and recently after CT scan he was told by pulmonology that he has interstitial lung disease. He is saying his breathing is worsened in the last 6 months. His denying any chest discomfort. As before using supplemental oxygen as needed. 12/10/22: He returns for follow-up. On last visit was complaining of shortness of breath. He has lung disease which is the cause for dyspnea but previously had dyspnea as an anginal equivalent to. After discussion with [facility] and when Lexiscan in October 2022 which was normal. He is saying his breathing is at baseline. He has been using oxygen over the last several months with ambulation. He is following closely with pulmonology. No chest discomfort or any other concerning symptoms. Blood pressure control is good. He has permanent atrial fibrillation. 04/10/2023: He returns for follow-up. He is denying any significant symptoms. He is on supplemental oxygen and has been using oxygen more frequently. He has been more sedentary. His blood pressure and heart rate both were elevated in the office. He is taking his medications as before and has not missed his medications. He is complaining of some fatigue too. He said that he has not been exercising but plans to restart pulmonary rehabilitation. His repeat blood pressure was 140/80 manually. His heart rate was still in low 100s after resting. He is saying at home he has checked his heart rate before and was anywhere from 60-80. 08/14/23: He is here for follow-up. He underwent endovascular repair of abdominal aortic aneurysm successfully. He has been doing well since then. He is noticed some lower extremity edema right more than left. He is on diltiazem. He is on digoxin and the apixaban for anticoagulation. He is saying that his breathing has been worse than before specially since winter he has not exercise much. He was previously doing cardiac rehabilitation and will be restarting it. 10/31/2023: He is here for follow-up. He is status post endovascular repair of abdominal aortic aneurysm. He has been more sedentary and gets out of breath walking 10 ft at this stage. No chest discomfort. Blood pressure is well controlled. Heart rate is also well controlled in atrial fibrillation. 12/02/23: He is here for follow-up. Was seen recently when he was complaining of shortness of breath. Clinically was euvolemic and had rate controlled atrial fibrillation at that time. Subsequent to this he had worsening shortness of breath on 1 the emergency department and was noticed to have anemia as well as signs of congestive heart failure. He was transfused and diuresed and also received IV iron. He is due to see Hematology. He continues to be on apixaban and Plavix. No obvious bleeding was noticed. He is saying he has a significant improvement in his shortness of breath after getting blood transfusion and iron. He is walking longer distances and feel more energetic. 03/16/24: He is here for f/u. He is saying he has been getting SOB since he came back home after PCI. He has no orthopnea or PND but gets short of breath easily. No bleeding. He said he was drinking a lot of water because 1 of his nurse friend told him that he is dehydrated. He also was given IV fluids post cardiac catheterization. He said that he did not get any Plavix script sent is currently not taking Plavix although he just had PCI performed. He is taking Eliquis regularly. He is taking Lasix 20 mg twice a day. [facility] Medical History (Updated 03/16/24 @ 17:04 by Ja Jean-Baptiste MD) Atrial fibrillation with rapid ventricular response Supplemental oxygen dependent ILD (interstitial lung disease) COPD (chronic obstructive pulmonary disease) Tubular adenoma of colon (~2021) Postoperative hypothyroidism Obesity (BMI 30-39.9) Atrial fibrillation Chest discomfort Bronchitis Hemoptysis HOLLOWAY (dyspnea on exertion) Abnormal SPEP Multinodular thyroid Swelling of left lower extremity Pulmonary nodules/lesions, multiple Ground glass opacity present on imaging of lung Wedge compression fracture of T9 vertebra (~2018) Coronary artery disease Hypertension Right renal stone Thyroid nodule Vitamin D deficiency Ascending aorta dilatation Obesity (BMI 30-39.9) Psoriasis Hypercholesterolemia Former smoker Stable angina Surgical History Status post AAA (abdominal aortic aneurysm) repair Hx of bilateral cataract extraction (~2022) History of partial thyroidectomy (~2020) History of heart artery stent (~2019) History of colonoscopy History of cardioversion (~2020) History of appendectomy History of tonsillectomy History of lung biopsy (~2016) Family History Father Heart disease Mother Throat cancer Paternal Grandfather Heart disease Social History Household Members: Spouse Housing: House Are you a primary career center director to a significant other at home: No Do you presently have visiting nurse or other home services: No Alcohol intake: former Year quit: 2014 Patient Tobacco Use Status: Former Tobacco user Tobacco use type: Cigarette Years Smoked: 50 e-Cigarette/Vaping Use: Former Use Second Hand Smoke Exposure: No Advance Directives Date on File: 09/21/20 service: Yes Current occupational status: retired Cognitive needs: No Hearing needs: No Vision needs: Yes Review of Systems Const Denies chills, Denies fatigue, Denies fever(s), Denies frequent falls, Denies weakness, Denies weight gain and Denies weight loss ENT Reports dizziness Card Denies chest pain, Denies leg edema, Reports lightheadedness, Denies palpitations, Denies dyspnea and Denies dyspnea on exertion Resp Denies cough, Denies dyspnea and Denies dyspnea on exertion GI Denies hematochezia Musc Denies abnormal gait, Denies muscle weakness, Denies numbness, Denies radiating pain into limb and Denies tingling Neuro Denies abnormal gait, Reports dizziness, Denies frequent falls, Denies numbness, Denies tingling and Denies weakness Endo Denies fatigue and Denies palpitations Physical Exam Vital Signs: Last Vital Signs Pulse 82 03/16/24 09:20 BP 130/60 03/16/24 09:20 BMI result Body Mass Index 29.0 GENERAL APPEARANCE: in no acute distress, pleasant. NECK: no carotid bruit, + jugular venous distention. SKIN: no suspicious lesions, warm and dry. HEART: no murmurs, irregular rate and rhythm. LUNGS: Crackles at bases. ABDOMEN: soft, nontender. EXTREMITIES: No edema. PERIPHERAL PULSES: equal. NEUROLOGIC: No gross deficits, AAO X 3 Office Procedures EKG Details: Atrial fibrillation 82 beats per minute, normal axis, QTC 406 milliseconds. [id number], Complete Assessment & Plan Assessment & Plan (1) Chronic atrial fibrillation: Code(s): I48.20 - Chronic atrial fibrillation, unspecified Category: Medical (2) Coronary artery disease: Comment: (NSTEMI 04/2019 - JL + proximal and distal RCA rotablation) Code(s): I25.10 - Atherosclerotic heart disease of [place] coronary artery without angina pectoris Category: Medical Qualifiers: Coronary Disease-Associated Artery/Lesion type: [place] artery [place] vs. transplanted heart: [place] heart Associated angina: without angina Qualified Code(s): I25.10 - Atherosclerotic heart disease of [place] coronary artery without angina pectoris (3) Chronic diastolic heart failure: Code(s): I50.32 - Chronic diastolic (congestive) heart failure Category: Medical Plan 78 year gentleman with known history of coronary artery disease with previous RCA PCI recently got admitted to [facility] with AFib with RVR and diastolic heart failure. His ECG had ischemic changes and he after optimization was transferred to [facility] for cardiac catheterization. He was noticed to have severe ISR in the right coronary artery. He had moderate LAD stenosis as well as 1st diagonal subtotal occlusion but it was a small-sized vessel. He underwent PCI to RCA. He was supposed to go home on Plavix but apparently is saying that he did not get any Plavix script from [facility]. He is taking Eliquis regularly. He has concerns are mainly related shortness of breath which is quite obvious and with minimal exertion. He has no orthopnea or PND. Clinically he is volume overloaded right now and has elevated JVD and some crackles on examination. I have advised him to increase the Lasix to 40 mg in the morning and 20 in the afternoon. He will continue this regimen for 1 week and we will see him back next week. I am sending Plavix 75 mg tablets for him. I have advised him to t danny 4 tablets today and then continue 1 tablet daily from tomorrow. He will see us back in 1 week. Thank you for allowing me to participate in the care of your patient. Please feel free to contact me if you have any questions. Orders: Orders Basic Metabolic Panel Today I48.21 - Permanent atrial fibrillation B Type Natriuretic Peptide Today I48.21 - Permanent atrial fibrillation Complete Blood Count no Diff Today I48.21 - Permanent atrial fibrillation Medications: New clopidogrel Take 4 tablets today and start taking 1 tablet daily from tomorrow. 75 mg PO DAILY 100 tabs 3RF Changed From furosemide (Lasix) 20 mg PO BID To furosemide (Lasix) 20 mg orally Take 2 tablets in morning, 1 tablet in the afternoon.; 120 tabs 5RF Coding Level of Care Code Est Pt Level 5 (02094) Diagnoses Chronic atrial fibrillation I48.20 Coronary artery disease involving [place] coronary artery of [place] heart without angina pectoris I25.10 Coronary Disease-Associated Artery/Lesion type: [place] artery [place] vs. transplanted heart: [place] heart Associated angina: without angina Chronic diastolic heart failure I50.32 CPT Codes EKG - CPT: 69361-[id number], Complete ([id number])
== END 2024-03-16 10:01 | disposition home or self-care (01) ==
PROVIDERS: PCP Internal Medicine; Visit Provider Internal Medicine Cardiovascular Disease
DX: I48.20 Chronic atrial fibrillation, unspecified (principal); I25.10 Atherosclerotic heart disease of native coronary artery without angina pectoris; I50.32 Chronic diastolic (congestive) heart failure
CPT/HCPCS: 93010; 99214

== ENCOUNTER 2024-03-16 09:08 | Outpatient (REF) | payer MEDICARE, SELFPAY ==
[2024-02-07 11:25] VITALS: BMI 32.0
[2024-03-16 10:40] LABS: Hematocrit 33.2 % (42.0-52.0); Mean Corpuscular HGB Conc 33.1 g/dl (31.0-36.0); Mean Corpuscular Volume 99.7 fL (80.0-98.0); Mean Platelet Volume 10.3 fL (9.4-12.4); Platelet Count 158 X10*3/uL (160-400); Red Blood Count 3.33 X10*6/uL (4.60-5.80); Red Cell Distribution Width 14.7 % (11.0-16.0)
[2024-03-16 11:00] LABS: B Type Natriuretic Peptide 519 pg/mL (<100)
[2024-03-16 11:13] LABS: Anion Gap 14 (12-20); Blood Urea Nitrogen 18 mg/dL (9-16); Calcium 9.2 mg/dL (8.4-10.2); Carbon Dioxide 27 mmol/L (22-29); Chloride 103 mmol/L (96-108); Estimated Glomerular Filt Rate > 60; Glucose Random 113 mg/dL (60-115); Potassium 3.7 mmol/L (3.3-5.1); Sodium 140 mmol/L (135-145)
== END 2024-03-16 09:09 | disposition home or self-care (01) ==
LOC: HO.LAB 09:08
PROVIDERS: PCP Internal Medicine; Visit Provider Internal Medicine Cardiovascular Disease
DX: I48.21 Permanent atrial fibrillation (principal); I50.32 Chronic diastolic (congestive) heart failure
CPT/HCPCS: 36415; 80048; 83880; 85027; 93005; 99212

== ENCOUNTER 2024-03-23 12:30 | Outpatient (AMB) | payer MEDICARE, SELFPAY ==
[2024-02-07 11:25] VITALS: BMI 32.0
[2024-03-23 12:45] VITALS: BP 120/70; PULSE 63; BMI 28.6
--- NOTE | 2024-03-23 12:45 | MHC.OFFVIS ---
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 Required: No Accompanied by: Self / Same As Patient Allergies Penicillins Allergy (Severe, Verified 02/27/24 14:35) Anaphylaxis hydrochlorothiazide Allergy (Unknown, Verified 02/27/24 14:35) Unknown lisinopril Allergy (Unknown, Verified 02/27/24 14:35) Unknown regadenoson [From Lexiscan] Adverse Reaction (Verified 02/27/24 14:35) Bradycardic Medication List - Last Reconciled 03/23/24 by Ja Jean-Baptiste MD adalimumab (Humira(CF) Pen) 40 mg subcut Q2W apixaban (Eliquis) 5 mg PO BID 90 days atorvastatin 80 mg PO BEDTIME zehhockdat-okizljtd-oymxmwtshl 160-9-4.8 mcg/actuation (Breztri Aerosphere) 2 inhalations inhalation BID cholecalciferol (vitamin D3) 50 mcg PO DAILY clopidogrel 75 mg PO DAILY compress.stocking,knee,reg,med As directed 20-30 mm HG cyanocobalamin (vitamin B-12) (Vitamin B-12) 1,000 mcg PO DAILY digoxin 125 mcg PO DAILY 90 days diltiazem HCl ER 180 mg PO DAILY famotidine 20 mg PO BID 90 days ferrous sulfate 325 mg PO DAILY 90 days furosemide (Lasix) 20 mg orally Take 2 tablets in morning, 1 tablet in the afternoon.; levothyroxine 50 mcg PO DAILY@0600 metoprolol tartrate 75 mg (3 x 25 mg) PO BID 30 days [OXYGEN 2 L NC keep sats > 90 As directed] [PORTABLE OXYGEN TANK As directed] tamsulosin 0.8 mg (2 x 0.4 mg) PO DAILY HPI Comments Details: 78-year-old gentleman here for follow-up. He is denying any chest discomfort No bleeding issues. Has been in chronic atrial fibrillation. Overall doing old without any significant bleeding issues or chest discomfort. Compliant with medications. He has dyspnea on exertion and has underlying lung disease. He is saying he has been started on supplemental oxygen which she is supposed to wear with activities. He previously had RCA PCI and his presentation was with dyspnea at that time too. He is saying that his lung disease is progressed and recently after CT scan he was told by pulmonology that he has interstitial lung disease. He is saying his breathing is worsened in the last 6 months. His denying any chest discomfort. As before using supplemental oxygen as needed. 12/10/22: He returns for follow-up. On last visit was complaining of shortness of breath. He has lung disease which is the cause for dyspnea but previously had dyspnea as an anginal equivalent to. After discussion with [facility] for stress testing and when Lexiscan in October 2022 which was normal. He is saying his breathing is at baseline. He has been using oxygen over the last several months with ambulation. He is following closely with pulmonology. No chest discomfort or any other concerning symptoms. Blood pressure control is good. He has permanent atrial fibrillation. 04/10/2023: He returns for follow-up. He is denying any significant symptoms. He is on supplemental oxygen and has been using oxygen more frequently. He has been more sedentary. His blood pressure and heart rate both were elevated in the office. He is taking his medications as before and has not missed his medications. He is complaining of some fatigue too. He said that he has not been exercising but plans to restart pulmonary rehabilitation. His repeat blood pressure was 140/80 manually. His heart rate was still in low 100s after resting. He is saying at home he has checked his heart rate before and was anywhere from 60-80. 08/14/23: He is here for follow-up. He underwent endovascular repair of abdominal aortic aneurysm successfully. He has been doing well since then. He is noticed some lower extremity edema right more than left. He is on diltiazem. He is on digoxin and the apixaban for anticoagulation. He is saying that his breathing has been worse than before specially since winter he has not exercise much. He was previously doing cardiac rehabilitation and will be restarting it. 10/31/2023: He is here for follow-up. He is status post endovascular repair of abdominal aortic aneurysm. He has been more sedentary and gets out of breath walking 10 ft at this stage. No chest discomfort. Blood pressure is well controlled. Heart rate is also well controlled in atrial fibrillation. 12/02/23: He is here for follow-up. Was seen recently when he was complaining of shortness of breath. Clinically was euvolemic and had rate controlled atrial fibrillation at that time. Subsequent to this he had worsening shortness of breath on 1 the emergency department and was noticed to have anemia as well as signs of congestive heart failure. He was transfused and diuresed and also received IV iron. He is due to see Hematology. He continues to be on apixaban and Plavix. No obvious bleeding was noticed. He is saying he has a significant improvement in his shortness of breath after getting blood transfusion and iron. He is walking longer distances and feel more energetic. 03/16/24: He is here for f/u. He is saying he has been getting SOB since he came back home after PCI. He has no orthopnea or PND but gets short of breath easily. No bleeding. He said he was drinking a lot of water because 1 of his nurse friend told him that he is dehydrated. He also was given IV fluids post cardiac catheterization. He said that he did not get any Plavix script sent is currently not taking Plavix although he just had PCI performed. He is taking Eliquis regularly. He is taking Lasix 20 mg twice a day. 03/23/2024: He is here for follow-up. On last visit he was in congestive heart failure and was advised to take 40 mg Lasix in the morning and 20 in the afternoon. He is saying that this has made a significant improvement in his shortness of breath. He is still short of breath but has significant improvement compared to before. He has advanced COPD at baseline. Taking medicines otherwise regularly. [facility] Medical History (Updated 03/16/24 @ 17:04 by Ja Jean-Baptiste MD) Atrial fibrillation with rapid ventricular response Supplemental oxygen dependent ILD (interstitial lung disease) COPD (chronic obstructive pulmonary disease) Tubular adenoma of colon (~2021) Postoperative hypothyroidism Obesity (BMI 30-39.9) Atrial fibrillation Chest discomfort Bronchitis Hemoptysis HOLLOWAY (dyspnea on exertion) Abnormal SPEP Multinodular thyroid Swelling of left lower extremity Pulmonary nodules/lesions, multiple Ground glass opacity present on imaging of lung Wedge compression fracture of T9 vertebra (~2018) Coronary artery disease Hypertension Right renal stone Thyroid nodule Vitamin D deficiency Ascending aorta dilatation Obesity (BMI 30-39.9) Psoriasis Hypercholesterolemia Former smoker Stable angina Surgical History Status post AAA (abdominal aortic aneurysm) repair Hx of bilateral cataract extraction (~2022) History of partial thyroidectomy (~2020) History of heart artery stent (~2019) History of colonoscopy History of cardioversion (~2020) History of appendectomy History of tonsillectomy History of lung biopsy (~2016) Family History Father Heart disease Mother Throat cancer Paternal Grandfather Heart disease Social History Household Members: Spouse Housing: House Are you a primary critical care transport nurse to a significant other at home: No Do you presently have visiting nurse or other home services: No Alcohol intake: former Year quit: 2014 Patient Tobacco Use Status: Former Tobacco user Tobacco use type: Cigarette Years Smoked: 50 e-Cigarette/Vaping Use: Former Use Second Hand Smoke Exposure: No Advance Directives Date on File: 09/21/20 service: Yes Current occupational status: retired Cognitive needs: No Hearing needs: No Vision needs: Yes Review of Systems Const Denies chills, Denies fatigue, Denies fever(s), Denies frequent falls, Denies weakness, Denies weight gain and Denies weight loss ENT Denies dizziness Card Denies chest pain, Denies leg edema, Denies lightheadedness, Denies palpitations, Denies dyspnea and Denies dyspnea on exertion Resp Denies cough, Denies dyspnea and Denies dyspnea on exertion GI Denies hematochezia Musc Denies abnormal gait, Denies muscle weakness, Denies numbness, Denies radiating pain into limb and Denies tingling Neuro Denies abnormal gait, Denies dizziness, Denies frequent falls, Denies numbness, Denies tingling and Denies weakness Endo Denies fatigue and Denies palpitations Physical Exam Vital Signs: Last Vital Signs Pulse 63 03/23/24 12:45 BP 120/70 03/23/24 12:45 BMI result Body Mass Index 28.6 GENERAL APPEARANCE: in no acute distress, pleasant. NECK: no carotid bruit, no jugular venous distention. SKIN: no suspicious lesions, warm and dry. HEART: no murmurs, irregular rate and rhythm. LUNGS: Clear to auscultation. ABDOMEN: soft, nontender. EXTREMITIES: No edema. PERIPHERAL PULSES: equal. NEUROLOGIC: No gross deficits, AAO X 3 Assessment & Plan Assessment & Plan (1) Chronic atrial fibrillation: Code(s): I48.20 - Chronic atrial fibrillation, unspecified Category: Medical (2) Coronary artery disease: Comment: (NSTEMI 04/2019 - JL + proximal and distal RCA rotablation) Code(s): I25.10 - Atherosclerotic heart disease of [place] coronary artery without angina pectoris Category: Medical Qualifiers: Coronary Disease-Associated Artery/Lesion type: [place] artery [place] vs. transplanted heart: [place] heart Associated angina: without angina Qualified Code(s): I25.10 - Atherosclerotic heart disease of [place] coronary artery without angina pectoris (3) Chronic diastolic heart failure: Code(s): I50.32 - Chronic diastolic (congestive) heart failure Category: Medical Plan 78 year gentleman with known history of coronary artery disease with previous RCA PCI recently got admitted to [facility] with AFib with RVR and diastolic heart failure. His ECG had ischemic changes and he after optimization was transferred to [facility] for cardiac catheterization. He was noticed to have severe ISR in the right coronary artery. He had moderate LAD stenosis as well as 1st diagonal subtotal occlusion but it was a small-sized vessel. He underwent PCI to RCA. He was seen in 02/2024 after the PCI with shortness of breath. He was clinically in heart failure. He was diuresed and his brought back for follow-up today. He is doing well on the 40 mg of Lasix in the morning and 20 in the afternoon. I have advised him to continue same dose for now. Blood pressure is well controlled. Chronic atrial fibrillation which is rate controlled. On Eliquis and Plavix. He is saying that he may need a urological procedure. Unless he has an urgent procedure he should not interrupt anticoagulation ideally for 6 months. Follow-up 2 months. Thank you for allowing me to participate in the care of your patient. Please feel free to contact me if you have any questions. Coding Level of Care Code Est Pt Level 4 (34919) Diagnoses Chronic atrial fibrillation I48.20 Coronary artery disease involving [place] coronary artery of [place] heart without angina pectoris I25.10 Coronary Disease-Associated Artery/Lesion type: [place] artery [place] vs. transplanted heart: [place] heart Associated angina: without angina Chronic diastolic heart failure I50.32
== END 2024-03-23 13:07 | disposition home or self-care (01) ==
PROVIDERS: PCP Internal Medicine; Visit Provider Internal Medicine Cardiovascular Disease
DX: I48.20 Chronic atrial fibrillation, unspecified (principal); I25.10 Atherosclerotic heart disease of native coronary artery without angina pectoris; I50.32 Chronic diastolic (congestive) heart failure
CPT/HCPCS: 99214

== ENCOUNTER → 2024-03-23 12:30 | Outpatient (BNVA) | payer MEDICARE, SELFPAY ==
[2024-02-07 11:25] VITALS: BMI 32.0
== END ==
PROVIDERS: PCP Internal Medicine; Visit Provider Internal Medicine Cardiovascular Disease
DX: I48.20 Chronic atrial fibrillation, unspecified (principal); J84.9 Interstitial pulmonary disease, unspecified; I25.118 Atherosclerotic heart disease of native coronary artery with other forms of angina pectoris; I11.0 Hypertensive heart disease with heart failure; I50.32 Chronic diastolic (congestive) heart failure; Z98.61 Coronary angioplasty status; Z99.81 Dependence on supplemental oxygen
CPT/HCPCS: 99212

== ENCOUNTER 2024-03-27 13:48 | Outpatient (AMB) | payer MEDICARE, SELFPAY ==
[2024-02-07 11:25] VITALS: BMI 32.0
--- NOTE | 2024-03-27 13:51 | MHC.OFFVIS ---
Intake Visit Reasons: Bladder bx, fulguration, Greenlight F/U Intake Note: Patient is present for BLADDER BX,FULGURATION,GREENLIGHT Urology Medication:TAMSULOSIN,VITAMIN B12 Antibiotic Allergy:PENICILLIN Blood Thinner:ELIQUIS TODAY'S PVR:0ML'S [employer] Accessories Mechanic Required: No Allergies Penicillins Allergy (Severe, Verified 03/27/24 13:53) Anaphylaxis hydrochlorothiazide Allergy (Unknown, Verified 03/27/24 13:53) Unknown lisinopril Allergy (Unknown, Verified 03/27/24 13:53) Unknown regadenoson [From Lexiscan] Adverse Reaction (Verified 03/27/24 13:53) Bradycardic HPI Comments Details: It was a pleasant male. He is a patient of Dr. Dean. He seen for the following urologic conditions - lower urinary tract symptoms Surgery canceled Had new onset shortness of breath and required cardiac stenting Will remain on anticoagulation Six-month follow-up for possible bladder biopsy and fulguration with GreenLight laser Lower urinary tract symptoms Primarily nocturia 3-5 times per night Failed lifestyle modifications Had been maximized on Flomax 0.8 mg daily. Change to terazosin. Stopped since this was making him feel dizzy. Imaging - ultrasound possible multiple echogenic foci within kidney representing vascular calcifications, incomplete bladder emptying, prostate 22 cc PSAs: 05/12 0.2, 02/09 0.2, 03/14 0.2 A1c: 08/13 5.6 PFSH Medical History (Updated 03/23/24 @ 18:20 by Oswaldo Delgado MD) Atrial fibrillation with rapid ventricular response Supplemental oxygen dependent ILD (interstitial lung disease) COPD (chronic obstructive pulmonary disease) Tubular adenoma of colon (~2021) Postoperative hypothyroidism Obesity (BMI 30-39.9) Atrial fibrillation Chest discomfort Bronchitis Hemoptysis HOLLOWAY (dyspnea on exertion) Abnormal SPEP Multinodular thyroid Swelling of left lower extremity Pulmonary nodules/lesions, multiple Ground glass opacity present on imaging of lung Wedge compression fracture of T9 vertebra (~2018) Coronary artery disease Hypertension Right renal stone Thyroid nodule Vitamin D deficiency Ascending aorta dilatation Obesity (BMI 30-39.9) Psoriasis Hypercholesterolemia Former smoker Stable angina Surgical History Status post AAA (abdominal aortic aneurysm) repair Hx of bilateral cataract extraction (~2022) History of partial thyroidectomy (~2020) History of heart artery stent (~2019) History of colonoscopy History of cardioversion (~2020) History of appendectomy History of tonsillectomy History of lung biopsy (~2016) Family History Father Heart disease Mother Throat cancer Paternal Grandfather Heart disease Social History Household Members: Spouse Housing: House Are you a primary rn progressive care unit to a significant other at home: No Do you presently have visiting nurse or other home services: No Alcohol intake: former Year quit: 2014 Patient Tobacco Use Status: Former Tobacco user Tobacco use type: Cigarette Years Smoked: 50 e-Cigarette/Vaping Use: Former Use Second Hand Smoke Exposure: No Advance Directives Date on File: 09/21/20 service: Yes Current occupational status: retired Cognitive needs: No Hearing needs: No Vision needs: Yes Review of Systems Const Denies chills and Denies fever(s) Card Reports no additional complaints and Denies syncope Resp Denies cough GI Denies abdominal pain and Denies heartburn Reports as per HPI and Denies change in libido Neuro Denies syncope Psych Denies change in libido Endo Denies change in libido Physical Exam Const General: cooperative, healthy appearing, comfortable and no acute distress Orientation/consciousness: patient oriented x3 HEENT Face and sinus: Yes normal facial exam Mouth: moist mucous membranes Neck Neck: Yes normal visual inspection, Yes full ROM and Yes trachea midline Chest Chest palpation & inspection: normal inspection of the chest Resp Effort & Inspection: normal respiratory effort, able to speak in complete sentences and no respiratory distress GI Inspection: Yes normal to inspection Back/Spine/Pelvis Cervical Spine: normal cervical lordosis Thoracic/Lumbar Spine: thoracic and lumbar spine normal to inspection Skin General skin exam: no rashes or lesions noted Neuro General: patient oriented x3, gait normal, tone normal and moves all extremities Extrem General: Yes normal to inspection and Yes capillary refill normal Office Procedures Post Void Residual Post Residual Void Post Void Residual (PVR): 0 [id number]-[id number] Void Residual by ultrasound Assessment & Plan Assessment & Plan (1) Urinary retention with incomplete bladder emptying: Code(s): R33.9 - Retention of urine, unspecified Category: Medical (2) Lower urinary tract symptoms: Code(s): R39.9 - Unspecified symptoms and signs involving the genitourinary system Category: Medical Plan Six-month follow-up office Orders: Orders AMB Urinalysis Automated Today Z13.9 - Encounter for screening, unspecified Patient Instructions: Imaging studies, laboratory and physical exam results were discussed and reviewed in detail. No major barriers to patient understanding were identified. An opportunity to ask questions regarding the treatment plan was provided. All questions were answered. The patient expressed understanding and agreement with the above treatment plan. The patient is aware they should contact our office by phone for worsening of their current condition or the appearance of new urologic symptoms. Compliance is encouraged with any medications and followup testing that is ordered. It is a privilege to participate in the urologic care of your patient. If you have any questions or concerns regarding treatment for the above conditions, or other urologic issues, please do not hesitate to contact me. The office telephone contact is [phone]. This note is constructed using voice recognition software. While every effort has been made to ensure accuracy foot caster errors may have been included. Yours sincerely, Dr Joel George MD, [facility] - Urology Providers of Expert, Compassionate Care for the Genitourinary System Coding Level of Care Code Est Pt Level 3 (70076) Diagnoses Urinary retention with incomplete bladder emptying R33.9 Lower urinary tract symptoms R39.9 CPT Codes Post Residual Void - PVR CPT Code: 56539-Xasc Void Residual by ultrasound ([id number])
--- OUTSIDE RECORDS SUMMARY | 2024-04-01 10:13 | XMS_ITS | Continuity of Care Document ---
Author Organization [facility], [place] [address] Address [address] [place] [id number]- Care Team Providers Care Party Host Name Role Phone Po Oswaldo PAINTING Primary Care Physician [phone] [id number] Date[facility]s): 03/01/24 - 03/03/[address] [address]- Discharge Disposition: A-D/C Home Attending Physician: Trini Keller MD Admitting Physician: Jeovanny Meyer MD Referring Physician: Not on Staff, Referring MD Encounter Type: Disch IP Allergies, Adverse Reactions, Alerts Substance Criticality Severity Reaction Reaction Severity Status penicillin Unable to assess criticality Persistent Severe Throat Swelled Active lisinopril Unknown Active hydroCHLOROthiazide Unknown Active regadenoson Active Medications cholecalciferol 1000 intl units oral tablet 2 tablet = 50 mcg, By Mouth, Daily, 0 Refills, Maintenance, 03/03/24 10:13:00 AM EST, Tablet, Partial fill upon patient request if the prescription is for a schedule II opioid drug. Start Date: 03/03/24 Status: Ordered Repeat number: 1 clopidogrel 75 mg oral tablet 75 mg, 1, tablet, By Mouth, Daily, # 30 tablet, Refills 0, Maintenance, 09/20/20 1:25:00 PM EDT, Partial fill upon patient request if the prescription is for a schedule II opioid drug. Start Date: 09/20/20 Status: Ordered Quantity: 30.0 Unit: tablet Repeat number: 1 cyanocobalamin 1000 mcg oral tablet 1,000 mcg, By Mouth, Daily, Refills 0, Maintenance, 03/03/24 10:18:00 AM EST, Partial fill upon patient request if the prescription is for a schedule II opioid drug. Start Date: 03/03/24 Status: Ordered Repeat number: 1 digoxin 0.125 mg oral tablet 0.125 mg, By Mouth, Every Saturday, Saturday and Saturday, Refills 0, Maintenance, 03/03/24 10:21:00 AM EST, Partial fill upon patient request if the prescription is for a schedule II opioid drug. Start Date: 03/03/24 Status: Ordered Repeat number: 1 diltiazem 180 mg/24 hours oral capsule, extended release 180 mg, By Mouth, Daily, Refills 0, Maintenance, 03/03/24 10:19:00 AM EST, Partial fill upon patient request if the prescription is for a schedule II opioid drug. Start Date: 03/03/24 Status: Ordered Repeat number: 1 diltiazem 180 mg/24 hours oral capsule, extended release 180 mg, CD Capsule, By Mouth, 03/03/24 9:00:00 AM EST Start Date: 03/03/24 Stop Date: 03/03/24 Status: Completed Repeat number: 1 Eliquis 5 mg oral tablet 1 tablet = 5 mg, By Mouth, 2 times a day, # 60 tablet, 0 Refills, Maintenance, 09/20/20 1:25:00 PM EDT, Tablet, Partial fill upon patient request if the prescription is for a schedule II opioid drug. Start Date: 09/20/20 Status: Ordered Quantity: 60.0 Unit: tablet Repeat number: 1 famotidine 20 mg oral tablet 20 mg, By Mouth, Daily, Refills 0, Maintenance, 03/03/24 10:19:00 AM EST, Partial fill upon patientrequest if the prescription is for a schedule II opioid drug. Start Date: 03/03/24 Status: Ordered Repeat number: 1 ferrous sulfate 325 mg oral enteric coated tablet 325 mg, By Mouth, Daily, Refills 0, Maintenance, 03/03/24 10:19:00 AM EST, Partial fill upon patient request if the prescription is for a schedule II opioid drug. Start Date: 03/03/24 Status: Ordered Repeat number: 1 furosemide 20 mg oral tablet 20 mg, By Mouth, Daily, Refills 0, Maintenance, 03/03/24 10:19:00 AM EST, Partial fill upon patientrequest if the prescription is for a schedule II opioid drug. Start Date: 03/03/24 Status: Ordered Repeat number: 1 Humira Pen 40 mg/0.4 mL subcutaneous kit See Instructions, Subcutaneous Infusion Once, 0 Refills, Maintenance, 05/07/19 8:09:00 AM EST Start Date: 05/07/19 Status: Ordered Repeat number: 1 levothyroxine 0.025 mg oral tablet = 50 mcg, By Mouth, Daily, 0 Refills, Maintenance, 03/03/24 10:19:00 AM EST, Tablet, Partial fill upon patient request if the prescription is for a schedule II opioid drug. Start Date: 03/03/24 Status: Ordered Repeat number: 1 Lipitor 80 mg oral tablet 1 tablet = 80 mg, By Mouth, Daily at bedtime, # 30 tablet, 11 Refills, Maintenance, 05/08/19 9:39:00AM EST, Tablet, [facility], 176, cm, 05/08/19 7:53:00 EST, Height, 91.9, kg, 05/05/2014:47:00 EST, Dry Weight Start Date: 05/08/19 Status: Ordered Quantity: 30.0 Unit: tablet Repeat number: 12 oxyCODONE 5 mg oral tablet 5 mg, 1, tablet, By Mouth, Every 6 hours, PRN, # 12 tablet, Refills 0, Tot. Refills 0, Maintenance,as needed for pain, 04/11/21 9:16:00 AM EST, Route to Pharmacy Electronically, [facility], Partial fill upon patient request if the prescription is for a schedule II opioid drug., 172.72, cm, 04/11/21 6:06:00 EST, Height, 97.5, kg, 04/11/21 6:06:00 EST, Dry Weight Start Date: 04/11/21 Status: Ordered Quantity: 12.0 Unit: tablet Repeat number: 1 Symbicort 160mcg/4.5mcg Inhaler 2, puffs, Inhalation, 2 times a day, # 6 Gm, Refills 0, Maintenance, 05/07/19 8:07:00 AM EST, Aerosol Start Date: 05/07/19 Status: Ordered Quantity: 6.0 Unit: g Repeat number: 1 tamsulosin 0.4 mg oral capsule 0.8 mg, By Mouth, Daily, Refills 0, Maintenance, 03/03/24 10:20:00 AM EST, Partial fill upon patient request if the prescription is for a schedule II opioid drug. Start Date: 03/03/24 Status: Ordered Repeat number: 1 Toprol XL 25 mg oral tablet, extended release 75 mg, By Mouth, Daily, Refills 0, Maintenance, 03/03/24 10:20:00 AM EST, Partial fill upon patientrequest if the prescription is for a schedule II opioid drug. Start Date: 03/03/24 Status: Ordered Repeat number: 1 Toprol XL 25 mg oral tablet, extended release 75 mg, XL Tablet, By Mouth, 03/03/24 9:00:00 AM EST Start Date: 03/03/24 Stop Date: 03/03/24 Status: Completed Repeat number: 1 Problem List Condition Confirmation Course Effective Dates Status Health St atus Informant NSTEMI (non-ST elevated myocardial infarction) Confirmed Active Vital Signs Most recent to oldest [Reference Range]: 1 2 3 4 Height 173.99 cm (03/03/24 12:25 PM) 173.99 cm (03/03/24 11:55 AM) 173.99 cm (03/03/24 8:05 AM) Weight 87.7 kg (03/02/24 5:43 AM) 88.5 kg (03/02/24 12:54 AM) 88.5 kg (03/01/24 5:34 PM) Oxygen Saturation [94-100 %] 100 % (03/03/24 12:25 PM) 98 % (03/03/24 11:55 AM) 100 % (03/03/24 8:05 AM) Pulse Rate [55-90 bpm] 109 bpm *H* (03/03/24 12:25 PM) 78 bpm (03/03/24 11:55 AM) 117 bpm *H* (03/03/24 9:11 AM) 95 bpm *H* (03/03/24 9:11 AM) Body Mass Index [18.5-24.99 kg/m2] 29.23 kg/m2 *H* (03/01/24 12:50 PM) Blood Pressure [90-138/55-84 mm Hg] 124/87mm Hg (03/03/24 12:25 PM) 117/73mm Hg (03/03/24 11:55 AM) 131/69mm Hg (03/03/24 9:11 AM) 131/69mm Hg (03/03/24 9:11 AM) Respiratory Rate [16-30 br/min] 20 br/min (03/03/24 12:25 PM) 20 br/min (03/03/24 11:55 AM) 18 br/min (03/03/24 8:05 AM) Temperature [96.8-100.4 DegF] 97.4 DegF (03/03/24 12:25 PM) 97.4 DegF (03/03/24 11:55 AM) 97.4 DegF (03/03/24 8:05 AM) Liters per Minute 3 L/min (03/03/24 12:25 PM) 3 L/min (03/03/24 11:55 AM) 3 L/min (03/03/24 8:05 AM) Mode of Delivery (Oxygen) Nasal cannula (03/03/24 12:25 PM) Nasal cannula (03/03/24 11:55 AM) Nasal cannula (03/03/24 8:05 AM) Blood pressure sites Arm, left (03/03/24 12:25 PM) Arm, left (03/03/24 11:55 AM) Arm, left (03/03/24 8:05 AM) Temperature Route Oral (03/03/24 12:25 PM) Oral (03/03/24 11:55 AM) Oral (03/03/24 8:05 AM) Dry Weight 88.5 kg (03/01/24 12:50 PM) Weight Obtained Via Bed scale (03/02/24 5:43 AM) Bed scale (03/01/24 5:34 PM) Bed scale (03/01/24 12:50 PM) Dry Weight Obtained Via Bed scale (03/01/24 12:50 PM) Social History Social History Type Response Smoking Status Former smoker, quit more than 30 days ago; Other: Quit smoking 6 years ago; entered on: 09/20/20 Sex Sex Representation Male (finding) Note * Yousuf Blackmon: PERFORM, SIGN, VERIFY Event Display: Cardiac Rehab Note Authored Date: [id number] Patient: FAISAL ARELLANO Age: 78 years Sex: Male : 1945 Associated Diagnoses: None Author: Yousuf Blackmon Diagnosis Cardiac Rehab Diagnosis: S/P NSTEMI, S/P JL RCA. Pre-exercise Vitals Vital Signs: 90 HR, 130/74 BP Sitting, 95% 3LNC SaO2. Vital Signs Comment: Reviewed in [facility], RN informed of Vital Sign changes. Pre-exercise Physical Examination Neurologic: alert & oriented. Cardiovascular: heart rate regular. Lungs: Normal I:E, Cough no. Activity Symptoms with Cardiac Rehab Symptoms: No exertional symptoms. Activity Transfers: independent. Ambulate: independent. Patient Education Education: Patient alone, Written material included, Post procedure guidelines, Stent card reviewed. Education topic Teachback comprehension 75% Topic: Pathophysiology, Lipid management, Medication education, Home activity guidelines/limits, Infarct recovery guidelines. Reinforcement needed: Medication education, Infarct recovery guidelines. Recommendation and Plan Outpatient follow up recommended: [facility], in 2 weeks, Pt currently enrolled in Pul Rehab at , will start Cardiac Rehab due to OH/PCI- has done it in the past as well. Cardiac Rehab: Will sign off at this time. Recommendation comment: RN notified of plan. * Marleen Ly RN: PERFORM Event Display: Discharge/Transfer Note Hospital Authored Date: [id number] Nursing Discharge Note Entered On: 03/03/2024 13:42 EST Performed On: 03/03/2024 13:41 EST by Marleen Ly RN Nursing Discharge Note 2 Discharge Time : 03/03/2024 13:42 EST Discharge Level of Care at Discharge : Home/Prison/Foster Care Patient Left Unit Via : Wheelchair Patient Accompanied Off Unit with : Responsible adult DC Instructions Provided & Signed by Pt : Yes Patient Understands D/C Instructions : Yes Patient Instructions Discharge Signed : Yes Did Pt have Specialty Bed or Wound Vac : No Marleen Ly RN - 03/03/2024 13:41 EST * Trini Keller MD: PERFORM Event Display: Discharge/Transfer Note Hospital Authored Date: [id number] Patient: ??FAISAL ARELLANO ? Age:??78 Years?Sex:??Male?:??1945?? Patient Information Discharge Location: Primary Care Physician: Oswaldo Delgado MD Admit Date/Time: 03/01/2024 12:48 Discharge Disposition Discharge Disposition: Home: No Services Discharge Diagnosis Non-ST elevation (NSTEMI) myocardial infarction (I21.4) POSSIBLE / SUSPECTED diastolic CHF (congestive heart failure) (I50.9) CAD (coronary artery disease) (I25.10) Atrial fibrillation with RVR (I48.91) ILD (interstitial lung disease) (J84.9) Emphysema / COPD (J44.9) (HFpEF) heart failure with preserved ejection fraction (I50.30) BPH (benign prostatic hyperplasia) (N40.0) Chronic GERD (K21.9) Psoriasis (L40.9) Iron deficiency (E61.1) S/P prior LJ x 2 to right coronary artery (RCA) + one more during this admission. (Z95.5) Hypertension (I10) Hyperlipidemia (E78.5) Hypothyroidism (E03.9) Chronic hypoxemic respiratory failure (J96.11) _ Discharge Medications Adalimumab (Humira Pen 40 mg/0.4 mL subcutaneous kit)?See Instructions?Subcutaneous Infusion Once apixaban (Eliquis 5 mg oral tablet)?1?tab(s)?5?Milligram?By Mouth?2 times a day Atorvastatin (Lipitor 80 mg oral tablet)?1?tab(s)?80?Milligram?By Mouth?Daily at bedtime Budesonide-Formoterol (Symbicort 160mcg/4.5mcg Inhaler)?2?puff(s)?Inhalation?Daily?2times a day Cholecalciferol (cholecalciferol 1000 intl units oral tablet)?By Mouth?Daily?2?tab(s)?50?Microgram Clopidogrel (clopidogrel 75 mg oral tablet)?75?Milligram?1?tablet?By Mouth?Daily Cyanocobalamin (cyanocobalamin 1000 mcg oral tablet)?1,000?Microgram?By Mouth?Daily Digoxin (digoxin 0.125 mg oral tablet)?0.125?Milligram?By Mouth?Every Saturday, Saturdayand Saturday Diltiazem (diltiazem 180 mg/24 hours oral capsule, extended release)?180?Milligram?By Mouth?Daily Famotidine (famotidine 20 mg oral tablet)?20?Milligram?By Mouth?Daily Ferrous Sulfate (ferrous sulfate 325 mg oral enteric coated tablet)?325?Milligram?By Mouth?Daily Furosemide (furosemide 20 mg oral tablet)?20?Milligram?By Mouth?Daily Levothyroxine (levothyroxine 0.025 mg oral tablet)?50?Microgram?By Mouth?Daily Metoprolol (Toprol XL 25 mg oral tablet, extended release)?75?Milligram?By Mouth?Daily Oxycodone (oxyCODONE 5 mg oral tablet)?5?Milligram?1?tablet?By Mouth?Every 6 hours?as needed?as needed for pain Tamsulosin (tamsulosin 0.4 mg oral capsule)?0.8?Milligram?By Mouth?Daily ? Quality Measures Chest Pain, AMI Quality Measures:?Beta-Cheri Prescribed at Discharge:??Active Home Medication for Beta-Cheri ? Medications Started None Medications Discontinued None Doses Changed None Objective Assessment and Plan: ?? Non-ST elevation (NSTEMI) myocardial infarction (I21.4):??. Atrial fibrillation with RVR (I48.91):??. CAD (coronary artery disease) (I25.10):??. S/P prior JL x 2 to right coronary artery (RCA) + one more during this admission. (Z95.5):??. POSSIBLE / SUSPECTED diastolic CHF (congestive heart failure) (I50.9):??. Hypertension (I10):??. Hyperlipidemia (E78.5):? Cardiology input much appreciated s/p cardiac cath??(03/02/2024, Dr. Jean-Baptiste) & JL to RCA On clopidogrel + diltiazem + digoxin +??furosemide + atorvastatin +??apixaban and Metoprolol HR all over the map, from the 70's to the 150's wonder whether down the road he will become a candidate for AV node ablation + pacemaker.?? ECHO shows: The left ventricular size is normal. There is mild concentric left ??ventricular hypertrophy. The LV systolic function is mildly reduced. The ??left ventricular ejection fraction is visually 40-45%. 3D volumetric ??ejection fraction is calculated at 45%. There is mild global hypokinesis of ??the left ventricle. Unable to assess diastolic function due to atrial ??fibrillation. Follow up with cardiology as outpatient. ?? Emphysema / COPD (J44.9):??. ILD (interstitial lung disease) (J84.9):??. Chronic hypoxemic respiratory failure (J96.11):? On 3 L/min chronic home O2 On PRN albuterol-ipratropium ?? Hypothyroidism (E03.9):? On levothyroxine ?? BPH (benign prostatic hyperplasia) (N40.0):? On tamsulosin ?? Chronic GERD (K21.9):? On famotidine? Psoriasis (L40.9):? On adalimumab??= Humira q 2 weeks ?? Iron deficiency (E61.1):? On ferrous sulfate ? Patient was seen and examined today at bedside, no new complains, will be discharged today. with the above mentioned medications. ? Vital Signs?? Temperature: 97.4 DegF (03/03/24 08:05:00) Temperature Route: Oral (03/03/24 08:05:00) Pulse Rate:??95 bpm??High (03/03/24 09:11:00) Pulse Rate:??117 bpm??High (03/03/24 09:11:00) Respiratory Rate: 18 br/min (03/03/24 08:05:00) Systolic Blood Pressure: 131 mm Hg (03/03/24 09:11:00) Systolic Blood Pressure: 131 mm Hg (03/03/24 09:11:00) Diastolic Blood Pressure: 69 mm Hg (03/03/24 09:11:00) Diastolic Blood Pressure: 69 mm Hg (03/03/24 09:11:00) Blood pressure sites: Arm, left (03/03/24 08:05:00) Mean Arterial Pressure: 90 mm Hg (03/03/24 08:05:00) Pulse Pressure: 62 mm Hg (03/03/24 08:05:00) Oxygen Saturation: 100 % (03/03/24 08:05:00) Liters per Minute: 3 L/min (03/03/24 08:05:00) Mode of Delivery (Oxygen): Nasal cannula (03/03/24 08:05:00) Early Warning Score: 4 (03/03/24 09:14:09) ? . Physical Exam General: Lying comfortably in bed, no evident distress Cardiac: S1 + S2 + 0, no murmurs heard Respiratory: CTA, No wheezes, Rales or crackles heard Abdomen: soft, nondistended, nontender Extremities: No edema or cyanosis present Neurological: AO X 3 , cranial nerves grossly normal?? Pending Results No Pending Results Follow-Up Appointments Added Follow Up ?Time Frame ?Comments [facility] Cardiac Rehabilitation?[facility] will call you with an appointement for Cardiac Rehab. Oswaldo Delgado MD Home Health Face to Face ^HomeHealthFTF Results Discharge Labs BLOOD COUNT & DIFF WBC 5.6 k/mm3 ()?? 03/03/2024 01:05 RBC 3.01 m/mm3 (Low)?? 03/03/2024 01:05 Hgb 9.9 Gm/dL (Low)?? 03/03/2024 01:05 Hct 31.4 % (Low)?? 03/03/2024 01:05 MCV 104.3 femtoliters (High)?? 03/03/2024 01:05 MCH 32.9 pg ()?? 03/03/2024 01:05 MCHC 31.5 Gm/dL (Low)?? 03/03/2024 01:05 Platelet Count 162 k/mm3 ()?? 03/03/2024 01:05 RDW-SD 57.2 femtoliters (High)?? 03/03/2024 01:05 MPV 10.0 femtoliters ()?? 03/03/2024 01:05 Nucleated RBC (Automated) 0.0 #/100 WBC'S ()?? 03/03/2024 01:05 Abs. NRBC 0.0 k/mm3 ()?? 03/03/2024 01:05 Abs. Neut 7.8 k/mm3 (High)?? 03/01/2024 17:48 Abs. Lymph 0.5 k/mm3 (Low)?? 03/01/2024 17:48 Abs. Bethel 0.3 k/mm3 (Low)?? 03/01/2024 17:48 Abs. Eo 0.0 k/mm3 ()?? 03/01/2024 17:48 Abs. Baso 0.0 k/mm3 ()?? 03/01/2024 17:48 Neut % 90.1 % (High)?? 03/01/2024 17:48 Lymph % 5.9 % (Low)?? 03/01/2024 17:48 Bethel % 3.5 % (Low)?? 03/01/2024 17:48 Eos % 0.0 % ()?? 03/01/2024 17:48 Baso % 0.0 % ()?? 03/01/2024 17:48 Imm Gran 0.5 % ()?? 03/01/2024 17:48 Abs. Imm Gran 0.0 k/mm3 ()?? 03/01/2024 17:48 ?? CARDIAC Nt-Probnp 1101 pg/mL (High)?? 03/03/2024 01:05 High Sensitivity Troponin (HSTnT) 15 ng/L ()?? 03/02/2024 02:59 ?? CHEM GENERAL Sodium 137 mmol/L ()?? 03/03/2024 01:05 Potassium 3.9 mmol/L ()?? 03/03/2024 01:05 Chloride 101 mmol/L ()?? 03/03/2024 01:05 Bicarbonate Level 24 mmol/L ()?? 03/03/2024 01:05 Anion Gap 12 ()?? 03/03/2024 01:05 Glucose Level 125 mg/dL (High)?? 03/02/2024 02:59 Hemoglobin A1C (Monitoring) 6.0 % (High)?? 03/02/2024 02:59 BUN 30 mg/dL (High)?? 03/03/2024 01:05 Creatinine-Blood 1.11 mg/dL ()?? 03/03/2024 01:05 Estimated GFR Creatinine 68 ML/MIN/1.73 M2 ()?? 03/03/2024 01:05 Calcium 8.6 mg/dL ()?? 03/02/2024 02:59 Phosphorus 3.4 mg/dL ()?? 03/03/2024 01:05 Magnesium 1.9 mg/dL ()?? 03/03/2024 01:05 Protein, Total 7.3 Gm/dL ()?? 03/01/2024 17:48 Albumin 3.8 Gm/dL ()?? 03/01/2024 17:48 AG Ratio 1.1 ()?? 03/01/2024 17:48 Alkaline Phosphatase 140 units/L (High)?? 03/01/2024 17:48 AST (SGOT) 18 units/L ()?? 03/01/2024 17:48 ALT (SGPT) 25 units/L ()?? 03/01/2024 17:48 Bilirubin, Total 0.7 mg/dL ()?? 03/01/2024 17:48 Estimated Average Glucose 126 mg/dL ()?? 03/02/2024 02:59 ? COAG INR 1.1 ()?? 03/01/2024 17:48 Protime (PT) 11.3 seconds ()?? 03/01/2024 17:48 APTT 29.1 seconds ()?? 03/01/2024 17:48 POC ACT-LR 383.0 seconds ()?? 03/02/2024 08:59 ?? LIPID STUDIES Cholesterol 132 mg/dL ()?? 03/02/2024 02:59 Triglycerides 309 mg/dL (High)?? 03/02/2024 02:59 HDL Cholesterol 31 mg/dL (Low)?? 03/02/2024 02:59 LDL Cholesterol 39 mg/dL ()?? 03/02/2024 02:59 Non HDL Cholesterol 101 mg/dL ()?? 03/02/2024 02:59 ? TOXICOLOGY/TDM Digoxin Level 0.6 ng/mL (Low)?? 03/02/2024 02:59 ? URINE OTHER Est Creatinine Clearance 53.96 mL/min ()?? 03/03/2024 02:17 ? 36 ??minutes spent on discharge * Marleen Ly RN: PERFORM Event Display: Patient Education/Instruction Authored Date: Inpatient Adult Discharge Instructions. [place] [id number] Name: FAISAL ARELLANO : 1945?? Visit: 03/01/2024 12:48?? Current Date: 03/03/2024 12:16 ?? Account: [id number]?? Inpatient Adult Discharge Instructions We would like to thank you for allowing us to assist you with your healthcare needs. The following includes patient education materials and information regarding your injury/illness. Our entire staffstrives to provide an excellent experience for our patients and their families. PLEASE ENSURE YOU FOLLOW-UP PER THE INSTRUCTIONS BELOW! ?? YOUR OPINION IS IMPORTANT TO US! Please complete the survey you may receive by mail or email. Your feedback will be used to make improvements to the healthcare experiences of our patients and their families. Surveys are administered by [employer] ?? If further treatment with your primary care physician or another doctor is recommended, it is important for you to keep the appointment. Call your primary care physician or return to the Emergency Department immediately if your condition worsens, fails to improve, or new symptoms develop. If you need to find a doctor, you can call [facility] Link for a referral at [phone] or toll free at [phone] or log in to [email or web address] ?? [facility], in keeping with [facility] guidance, no longer requires face masks for staff, patientsor visitors in most situations. Similiar to time spent indoors at other locations, there is the chance that you were exposed to repiratory viruses during your time with us (such as flu or COVID-19). If you develop symptoms concerning for a viral respiratory infection, please seek testing (and treatment if indicated) from your medical provider or home test kit. ?? You can view and manage your care through the patient portal or by using a health care susanna of your choosing. [employer] is a website that allows you to securely view your medical information including your hospital discharge summary, office visit summaries, medications and follow-up visits. You can also request appointments, renew medications, and request access to your medical information using a health care susanna of your choosing, or just ask a question. You can enroll at [email or web address] or register during your next office visit. You have been discharged from [facility], Patient Care Unit: S3??. If you have any questions regarding these instructions, including results of studies pending, afteryou leave, please call us and we will be happy to assist you 12/11. [facility] Your Care Team Attending Physician Trini Keller MD?? Consulting Providers Trini Keller MD?? Discharging Providers Trini Keller MD Your Diagnosis (HFpEF) heart failure with preserved ejection fraction Atrial fibrillation with RVR BPH (benign prostatic hyperplasia) CAD (coronary artery disease) Chronic GERD Chronic hypoxemic respiratory failure Emphysema / COPD Hyperlipidemia Hypertension Hypothyroidism ILD (interstitial lung disease) Iron deficiency Non-ST elevation (NSTEMI) myocardial infarction POSSIBLE / SUSPECTED diastolic CHF (congestive heart failure) Psoriasis S/P prior JL x 2 to right coronary artery (RCA) + one more during this admission. Tests Performed Below is a partial list of the tests performed during your hospitalization. You may have had other tests and procedures not included in this list. Please discuss all test results with your provider. Basic Metabolic Panel BNP BUN CBC CBC w/ Differential Comprehensive Metabolic Panel Creatinine Digoxin Level Hemoglobin A1C w/ Estimated Glucose High Sensitivity Troponin T INR Lipid Panel Lytes Magnesium Level Phosphorus Level POC Hemochron ACT-LR ProBNP PTT Troponin T, High Sensitivity B Type Natriuretic Peptide (ProBNP)?? BUN?? Basic Metabolic Panel?? CBC?? CBC w/ Differential?? Comprehensive Metabolic Panel?? Creatinine?? Digoxin Level?? Electrolytes (Lytes)?? Hemoglobin A1C w/ Estimated Glucose?? High??Sensitivity??Troponin T (High Sensitivity Troponin T)?? INR?? Lipid Panel?? Magnesium Level?? POC ACT-LR (POC Hemochron ACT-LR)?? PTT?? Phosphorus Level?? Primary Care Provider Oswaldo Delgado MD? Advance Directive Health Care Proxy on File Yes - Health Care Proxy Patient has a Designated Caregiver: No Discharge Vitals Temperature: 97.4 DegF Height: 173.99 cm Pulse Rate: 78 bpm Weight: 87.7 kg Respiratory Rate: 20 br/min Body Mass Index:??29.23 kg/m2??High Systolic Blood Pressure: 117 mm Hg Body surface area: 2.07 Diastolic Blood Pressure: 73 mm Hg ?? Oxygen Saturation: 98 % ?? Studies Pending All studies ordered during this hospital stay have been completed unless listed below. Please discuss all pending results with your provider listed above in these instructions. ?? No incomplete studies found?? What to do next Instructions From Your Doctor ?? Orders? 03/03/24 10:32:00 EST?? Prescriptions??, ??03/03/24 10:32:00 EST?? You Need to Schedule the Following Appointments Follow Up with??[facility] Cardiac Rehabilitation Why: [facility] will call you with an appointement for Cardiac Rehab. Follow Up with??Oswaldo Delgado MD When:??In 0 days Where: [address] [place] [address]- Business (1) Discharge Medications FAISAL ARELLANO :1945 Visit Date:03/01/2024 Medications: Please continue your medications until treatment is completed or stopped by your provider. Medications not listed below should be discontinued. Discuss any questions related to medications with your provider. What How Much When Instructions Next Dose New Digoxin (digoxin 0.125 mg oral tablet) 0.125 Milligram Oral Saturday, Saturday and Sunday 03/04, 03/06 Changed Atorvastatin (Lipitor 80 mg oral tablet) 1 tab(s) Oral Daily at Bedtime 03/03 PM Changed Cholecalciferol (cholecalciferol 1000 intl units oral tablet) 2 tab(s) Oral Daily 03/04 AM Changed Cyanocobalamin (cyanocobalamin 1000 mcg oral tablet) 1,000 Microgram Oral Daily 03/04 AM Changed Diltiazem (diltiazem 180 mg/ 24 hours oral capsule, extended release) 180 Milligram Oral Daily 03/04 AM Changed Famotidine (famotidine 20 mg oral tablet) 20 Milligram Oral Daily 03/04 AM Changed Ferrous Sulfate (ferrous sulfate 325 mg oral enteric coated tablet) 325 Milligram Oral Daily 03/04 AM Changed Furosemide (furosemide 20 mg oral tablet) 20 Milligram Oral Daily 03/04 AM Changed Levothyroxine (levothyroxine 0.025 mg oral tablet) 50 Microgram Oral Daily 03/04 AM Changed Metoprolol (Toprol XL 25 mg oral tablet, extended release) 75 Milligram Oral Daily 03/04 AM Changed Tamsulosin (tamsulosin 0.4 mg oral capsule) 0.8 Milligram Oral Daily 03/04 AM Unchanged Adalimumab (Humira Pen 40 mg/ 0.4 mL subcutaneous kit) See instructions Subcutaneous Infusion Once ?? resume as prescribed Unchanged apixaban (Eliquis 5 mg oral tablet) 1 tab(s) Oral Twice a day 03/03 PM Unchanged Budesonide-Formoterol (Symbicort 160mcg/ 4.5mcg Inhaler) 2 puff(s) Inhalation Twice a day 03/03 PM Unchanged Clopidogrel (clopidogrel 75 mg oral tablet) 1 tab(s) Oral Daily 03/04 AM Unchanged Oxycodone (oxyCODONE 5 mg oral tablet) 1 tab(s) Oral Every 6 hours as needed for as needed for pain as needed ?? What How Much When Comments Stop Taking Aspirin (aspirin 81 mg oral tablet) 81 Milligram Oral Daily Stop Taking budesonide/ formoterol/ glycopyrrolate (Breztri Aerosphere inhalation aerosol) 10 Gm, 0 Refill(s), INHALE 2 PUFFS TWICE A DAY ?? Prescription Given During Visit No new medications prescribed at time of discharge.?? Laboratory Results Below is a partial list of the most recent Laboratory test results done prior to this discharge. You may have had other tests and procedures not included in this list. Please discuss all test resultswith your provider. Est Creatinine Clearance - 53.96 mL/min (03/03/2024) Basic Metabolic Panel (03/02/2024) ???Sodium - 139 mmol/L???Potassium - 3.6 mmol/L???Chloride - 102 mmol/L???Bicarbonate Level - 27 mmol/L???Anion Gap - 10???Glucose Level - 125 mg/dL???BUN - 31 mg/dL???Creatinine-Blood - 1.07 mg/dL???Estimated GFR Creatinine - 71 ML/MIN/1.73 M2???Calcium - 8.6 mg/dL BNP (03/01/2024) ???Nt-Probnp - 1592 pg/mL BUN (03/03/2024) ???BUN - 30 mg/dL CBC (03/03/2024) ???WBC - 5.6 k/mm3???RBC - 3.01 m/mm3???Hgb - 9.9 Gm/dL???Hct - 31.4 %???MCV - 104.3 femtoliters???MCH - 32.9 pg???MCHC - 31.5 Gm/dL???Platelet Count - 162 k/mm3???RDW-SD - 57.2 femtoliters???MPV - 10.0 femtoliters???Nucleated RBC (Automated) - 0.0 #/100 WBC'S???Abs. NRBC - 0.0 k/mm3 CBC w/ Differential (03/01/2024) ???WBC - 8.6 k/mm3???RBC - 3.45 m/mm3???Hgb - 11.5 Gm/dL???Hct - 35.1 %???MCV - 101.7 femtoliters???MCH - 33.3 pg???MCHC - 32.8 Gm/dL???Platelet Count - 196 k/mm3???RDW-SD - 56.1 femtoliters???MPV - 10.2 femtoliters???Nucleated RBC (Automated) - 0.0 #/100 WBC'S???Abs. NRBC - 0.0 k/mm3???Abs. Neut -7.8 k/mm3???Abs. Lymph - 0.5 k/mm3???Abs. [place] - 0.3 k/mm3???Abs. Eo - 0.0 k/mm3???Abs. Baso - 0.0 k/mm3???Neut % - 90.1 %???Lymph % - 5.9 %???[place] % - 3.5 %???Eos % - 0.0 %???Baso % - 0.0 %???Imm Gran - 0.5 %???Abs. Imm Gran - 0.0 k/mm3 Comprehensive Metabolic Panel (03/01/2024) ???Sodium - 139 mmol/L???Potassium - 4.0 mmol/L???Chloride - 100 mmol/L???Bicarbonate Level - 26 mmol/L???Anion Gap - 13???Glucose Level - 152 mg/dL???BUN - 31 mg/dL???Creatinine-Blood - 0.98 mg/dL???Estimated GFR Creatinine - 79 ML/MIN/1.73 M2???Calcium - 9.0 mg/dL???Protein, Total - 7.3 Gm/dL???Albumin - 3.8 Gm/dL???AG Ratio - 1.1???Alkaline Phosphatase - 140 units/L???AST (SGOT) - 18 units/L???ALT (SGPT) - 25 units/L???Bilirubin, Total - 0.7 mg/dL Creatinine (03/03/2024) ???Creatinine-Blood - 1.11 mg/dL???Estimated GFR Creatinine - 68 ML/MIN/1.73 M2 Digoxin Level (03/02/2024) ???Digoxin Level - 0.6 ng/mL Hemoglobin A1C w/ Estimated Glucose (03/02/2024) ???Hemoglobin A1C (Monitoring) - 6.0 %???Estimated Average Glucose - 126 mg/dL High Sensitivity Troponin T (03/02/2024) ???High Sensitivity Troponin (HSTnT) - 15 ng/L INR (03/01/2024) ???INR - 1.1???Protime (PT) - 11.3 seconds Lipid Panel (03/02/2024) ???Cholesterol - 132 mg/dL???Triglycerides - 309 mg/dL???HDL Cholesterol - 31 mg/dL???LDL Cholesterol - 39 mg/dL???Non HDL Cholesterol - 101 mg/dL Lytes (03/03/2024) ???Sodium - 137 mmol/L???Potassium - 3.9 mmol/L???Chloride - 101 mmol/L???Bicarbonate Level - 24 mmol/L???Anion Gap - 12 Magnesium Level (03/03/2024) ???Magnesium - 1.9 mg/dL Phosphorus Level (03/03/2024) ???Phosphorus - 3.4 mg/dL POC Hemochron ACT-LR (03/02/2024) ???POC ACT-LR - 383.0 seconds ProBNP (03/03/2024) ???Nt-Probnp - 1101 pg/mL PTT (03/01/2024) ???APTT - 29.1 seconds Troponin T, High Sensitivity (03/01/2024) ???High Sensitivity Troponin (HSTnT) - 14 ng/L You will be contacted within 72 hours with your results. Immunizations This Visit Not Given Vaccine Commentsinfluenza virus vaccine, inactivated Patient Refuses pt states he recieved flu vacine already. Allergies (NKA means No Known Allergies) penicillin??(Throat Swelled) hydroCHLOROthiazide??(Unknown) lisinopril??(Unknown) regadenoson Problems Active Problems??(1) NSTEMI (non-ST elevated myocardial infarction)?? Education Materials Below is the list of Educational Leaflet Providered with your Discharge Instructions. WebMD Ignite Patient Education - Discharge Instructions for Cardiac Catheterization?? Web[employer] Ignite Patient Education - Understanding Transradial Cardiac Catheterization?? Valuables and Belongings I fully understand and agree that [facility] accepts no responsibility for all my personal property including clothing, toilet articles, radios, jewelry, dentures, hearing aids, rings, money, or any other property that is in my possession or is brought to me after admission. I understand certain valuables may be placed in a hospital safe for a short period of time. I understand that the hospital is not liable for loss or damage due to accident, fire, or other natural occurrence while said property is in the safe. I accept full responsibility for any personal property that I keep with me, and will not hold the hospital responsible in case of loss or disappearance. I acknowledge that i have been encouraged to send valuables and belongings home. ?? Date for Pt to Sign Valuables/Belongings: 03/01/24 17:31:00 ?? Other Discharge Information ? Pulmonary Rehab Status?? Pulmonary Rehab Discharge Status?? Respiratory Rate: 20 br/min ? Cardiac Rehab Assessment?? Cardiac Rehab Inpatient Assessment?? Comments-Education: s/p OH/PCI Comments-Smoking Cessation: quit 5yrs ago Comments-Exercise Activity: walking Comments-Nutrition: per RD Comments-Lipids: statins, exercise, diet Comments-Other plan of care: RECOMMEND PHASE 2 CARDIAC REHAB 2 WEEKS AT ? Common Emergency Awareness Tips IS IT A STROKE? Act FAST and Check for these signs: FACE Does the face look uneven? ARM Does one arm drift down? SPEECH Does their speech sound strange? TIME Call at any sign of stroke ?? Heart Attack Signs Chest discomfort: Most heart attacks involve discomfort in the center of the chest and lasts more than a few minutes, or goes away and comes back. It can feel like uncomfortable pressure, squeezing, fullness or pain. Discomfort in upper body: Symptoms can include pain or discomfort in one or both arms, back, neck, jaw or stomach. Shortness of breath: With or without discomfort. Other signs: Breaking out in a cold sweat, nausea, or lightheaded. Remember, MINUTES DO MATTER. If you experience any of these heart attack warning signs, call to get immediate medical attention! ?? Smoking can increase your chances of developing chronic health problems and can cause harmful effects to other family members in your house. If you smoke, you are strongly encouraged to quit. Please call [facility] [employer] Link at [phone] or [phone] ([phone]) or log in to [email or web address] for referrals to smoking cessation programs. ?? 246 Suicide & Crisis Lifeline is available 12/11 if you or someone you know needs to find a reason to keep living. By calling 536 you'll be connected to a skilled, trained counselor at a crisis center in your area. INPATIENT DISCHARGE INSTRUCTIONS SIGNATURE PAGE FAISAL ARELLANO Location:[facility] Registration Date and Time:03/01/2024 12:48 EST Primary Care Physician: Oswaldo Delgado MD, Attending Physician: Trini Keller MD, I FAISAL ARELLANO, have received the above patient education materials/instructions and have verbalized understanding. If ambulance or transport services are being used I further acknowledge being given a choice of service. ?? If you need to contact me, please call me at this number: . Patient/Film Spooler Name: Patient/Film Spooler Signature: Relationship to Patient: Witness Name/Signature: Date: * Yousuf Blackmon: PERFORM, SIGN, VERIFY Event Display: Patient Education Handout Authored Date: * Marleen Ly RN: PERFORM Event Display: Patient Education Leaflets Authored Date: Discharge Instructions for Cardiac Catheterization ?? 19372 Discharge Instructions for Cardiac Catheterization Cardiac catheterization??is an invasive??procedure??to look for certain heart problems. These problems may affect the heart's chambers, valves, and blood vessels. A thin, flexible tube (catheter) is put in a blood vessel in your groin or arm. The catheter is moved to the heart. The healthcare provider can look at the blood flow, blood pressure, and oxygen. They can inject contrast fluid??into your blood. This flows to your heart.??The provider can then take X-rays pictures?? of your heart. Coronary angiography is often done as part of a cardiac cath. This looks for blocked areas in the arteries that send blood to the heart. If a blockage is found, your provider may try to open up the artery. They may put a stent in place. Your provider will talk with you about the results of your procedure . Ask any questions you have before you leave. This sheet will help you take care of yourselfat home. Home care ??? Have a responsible adult drive you home after your procedure. ??? Don't drive or makeany important decisions for at least 24 hours after getting any type of sedation or anesthesia.? Drink?? 6 to 8??glasses of water over the next 24 hours. This is to help flush the contrast dye out of your body. Call your healthcare team if your urine has any change in color. ??? Take your tempe rature each day for 3 to 5 days. If you feel cold and clammy or start sweating, take your temperature right away. Call your healthcare team. ??? Do only light and easy activities for??the next?? 2 to3??days. Ask for help with chores and errands while you recover. Have someone drive you to your appointments. ??? Don't lift anything heavy??until your healthcare team says it's safe. ??? Ask your healthcare team when you can expect to return to work. Unless your job involves lifting, you may be able to return to your normal activities within 2 days. ??? Take your medicines as directed. Don't skip doses. ??? Check your incisions every day for signs of infection. These include redness, swelling,and fluid leaking. It's normal to have a small bruise or bump where the catheter was put in. A bruise that's getting larger is not normal. Tell your healthcare team about this. Call your healthcare team if you see blood forming in the incision. Go to the emergency room if you have uncontrolled bleeding from the artery site. This is even more important if you take medicines that make it hard for your blood to clot. These include aspirin, clopidogrel, warfarin, apixaban, and rivaroxaban. ??? Eat a healthy diet. Make sure it's low in fat, salt, and cholesterol. Ask your healthcare team for diet information. ??? Stop smoking. Sign up for a quit-smoking program. Or ask your healthcare team for help. ??? Exercise as your healthcare team tells you to. Your healthcare team??may advise you to start a cardiac rehab program. Cardiac rehab is an exercise program where trained healthcare staff watchyour progress and stress on your heart while you exercise. Ask your team how to enroll. ??? Don't swim or take baths until your healthcare team says it???s OK. You can shower the day after the procedure. Keep the site clean and dry. This keeps the incision from getting wet and infected until the skin and artery can heal. ??? Follow all other after-care instructions from your team.? Follow-up care ??? Make a follow-up appointment as advised. It's common to have a follow-up appointment 2 to 4 weeks after an angioplasty or coronary stent procedure. ??? Make a yearly appointment. This is??to make sure you're still doing well and not having any new symptoms. ??? Don't wait for a follow-up appointment if your medicines aren't working or you're having heart-related symptoms. Call your healthcare provider. ?? When to get medical care Call your healthcare provider right away if you have any of these: ??? Severe or increasing pain, numbness, coldness, or a bluish color in the leg or arm that held the catheter ??? Fever of 100.4?? F??( 38??C) or higher, or as advised by your healthcare provider ??? Signs of infection at the incision site. These include redness, swelling, drainage, or warmth. ??? Bleeding, bruising, or a lot of??swelling where the catheter was inserted ??? Blood in your urine ??? Black or tarry stools ??? Any unusual bleeding ??? Irregular, very slow, or fast heartbeat ??? Dizziness ?? Call 911 Call 911 if you have any of these: ??? Chest pain ??? Shortness of breath ??? Sudden numbness or weakness in arms, legs, or face, or trouble speaking ??? The puncture site swells up very fast ??? Bleeding from the puncture site that doesn't slow down with firm pressure ?? Last Reviewed Date: 2021 ?? 6652-0626 [employer]. All rights reserved. This information is not intended as a substitute for professional medical care. Always follow your healthcare professional's instructions. ?? * Marleen Ly RN: PERFORM Event Display: Patient Education Leaflets Authored Date: [id number] Discharge Instructions for Cardiac Catheterization ?? 77330 Discharge Instructions for Cardiac Catheterization Cardiac catheterization??is an invasive??procedure??to look for certain heart problems. These problems may affect the heart's chambers, valves, and blood vessels. A thin, flexible tube (catheter) is put in a blood vessel in your groin or arm. The catheter is moved to the heart. The healthcare provider can look at the blood flow, blood pressure, and oxygen. They can inject contrast fluid??into your blood. This flows to your heart.??The provider can then take X-rays pictures?? of your heart. Coronary angiography is often done as part of a cardiac cath. This looks for blocked areas in the arteries that send blood to the heart. If a blockage is found, your provider may try to open up the artery. They may put a stent in place. Your provider will talk with you about the results of your procedure . Ask any questions you have before you leave. This sheet will help you take care of yourselfat home. Home care ??? Have a responsible adult drive you home after your procedure. ??? Don't drive or makeany important decisions for at least 24 hours after getting any type of sedation or anesthesia.? Drink?? 6 to 8??glasses of water over the next 24 hours. This is to help flush the contrast dye out of your body. Call your healthcare team if your urine has any change in color. ??? Take your tempe rature each day for 3 to 5 days. If you feel cold and clammy or start sweating, take your temperature right away. Call your healthcare team. ??? Do only light and easy activities for??the next?? 2 to3??days. Ask for help with chores and errands while you recover. Have someone drive you to your appointments. ??? Don't lift anything heavy??until your healthcare team says it's safe. ??? Ask your healthcare team when you can expect to return to work. Unless your job involves lifting, you may be able to return to your normal activities within 2 days. ??? Take your medicines as directed. Don't skip doses. ??? Check your incisions every day for signs of infection. These include redness, swelling,and fluid leaking. It's normal to have a small bruise or bump where the catheter was put in. A bruise that's getting larger is not normal. Tell your healthcare team about this. Call your healthcare team if you see blood forming in the incision. Go to the emergency room if you have uncontrolled bleeding from the artery site. This is even more important if you take medicines that make it hard for your blood to clot. These include aspirin, clopidogrel, warfarin, apixaban, and rivaroxaban. ??? Eat a healthy diet. Make sure it's low in fat, salt, and cholesterol. Ask your healthcare team for diet information. ??? Stop smoking. Sign up for a quit-smoking program. Or ask your healthcare team for help. ??? Exercise as your healthcare team tells you to. Your healthcare team??may advise you to start a cardiac rehab program. Cardiac rehab is an exercise program where trained healthcare staff watchyour progress and stress on your heart while you exercise. Ask your team how to enroll. ??? Don't swim or take baths until your healthcare team says it???s OK. You can shower the day after the procedure. Keep the site clean and dry. This keeps the incision from getting wet and infected until the skin and artery can heal. ??? Follow all other after-care instructions from your team.? Follow-up care ??? Make a follow-up appointment as advised. It's common to have a follow-up appointment 2 to 4 weeks after an angioplasty or coronary stent procedure. ??? Make a yearly appointment. This is??to make sure you're still doing well and not having any new symptoms. ??? Don't wait for a follow-up appointment if your medicines aren't working or you're having heart-related symptoms. Call your healthcare provider. ?? When to get medical care Call your healthcare provider right away if you have any of these: ??? Severe or increasing pain, numbness, coldness, or a bluish color in the leg or arm that held the catheter ??? Fever of 100.4?? F??( 38??C) or higher, or as advised by your healthcare provider ??? Signs of infection at the incision site. These include redness, swelling, drainage, or warmth. ??? Bleeding, bruising, or a lot of??swelling where the catheter was inserted ??? Blood in your urine ??? Black or tarry stools ??? Any unusual bleeding ??? Irregular, very slow, or fast heartbeat ??? Dizziness ?? Call 911 Call 911 if you have any of these: ??? Chest pain ??? Shortness of breath ??? Sudden numbness or weakness in arms, legs, or face, or trouble speaking ??? The puncture site swells up very fast ??? Bleeding from the puncture site that doesn't slow down with firm pressure ?? Last Reviewed Date: 2021 ?? 6206-8247 [employer]. All rights reserved. This information is not intended as a substitute for professional medical care. Always follow your healthcare professional's instructions. ?? * Marleen Ly RN: PERFORM Event Display: Patient Education Leaflets Authored Date: [id number] Having Carotid Angioplasty and Stenting ?? 64090 Having Carotid Angioplasty and Stenting Angioplasty and stenting is a procedure to improve the blood flow in an artery or vein. The carotidarteries are large arteries inside each side of your neck. During the procedure, healthcare providers use a thin tube with a balloon at its tip to open up the artery. This is called angioplasty. A tiny mesh tube called a stent is then put into the artery. It's left in place to help keep the artery o pen. This is a minimally invasive procedure. It's done with a small cut (incision) usually in your groin. What to tell your healthcare provider Before the procedure, make sure to tell the medical team if you: ??? Have had any recent changes inyour health, such as a fever ??? Are or could be ??? Are allergic to shellfish, iodine, orany other substance ??? Have ever had a bad reaction to contrast dye ??? Have ever had a problem with medicine that helps you relax (sedation) ?? Tests before your procedure You may need some tests before the procedure, such as: ??? Blood tests, to check for anemia and infection ??? An electrocardiogram (ECG), to check your heart rhythm ??? A chest X-ray, to look at yourheart and lungs ??? Ultrasound of your neck, to look at the carotid artery ??? CT angiogram of the blood vessels of your neck and head ?? Getting ready for your procedure Talk with your healthcare provider about how to get ready. Tell them about all the medicines you take. This includes gcdu-znr-rjdfeci medicines such as aspirin, vitamins, and other supplements. You may need to stop taking some medicines, such as blood thinners, ahead of time. If you smoke, you???llneed to stop before your procedure. Nicotine from any source (cigarettes, e-cigarettes, patches, chewing tobacco) slows healing. Talk with your healthcare provider if you need help to stop smoking. Follow any directions you are given for not eating or drinking before your procedure. Your healthcare provider may give you more instructions about how to get ready. ?? On the day of your procedure Talk with your healthcare provider about what to expect. The procedure will likely be done by a healthcare provider trained in vascular medicine and a team of specialized nurses. A typical procedure may go like this: ??? An IV (intravenous) tube will be put in your arm or hand before the procedure starts. You???ll be given sedation through the IV tube. This will make you relaxed and sleepy during the procedure. ??? Hair in the area of your procedure may be removed. The area may be numbed with a local anesthesia. ??? The healthcare provider will make a small incision in a blood vessel in your groin. They will then put a long, thin wire into this cut. The wire acts as a guide during the procedure. ??? The healthcare provider will then insert a thin, flexible tube (catheter) over the wire. It has a tiny deflated balloon on the end. The catheter will be threaded through the blood vessel all the way into the carotid artery in your neck. Continuous X-ray images may be used to show exactly where the catheteris. ??? The healthcare provider will inflate the balloon inside the narrow part of the carotid artery. This will stretch the area open. ??? A mesh tube called a stent may be left in place in the area. This will help keep the area open. ??? The healthcare provider will deflate the balloon and removethe catheter. ??? The healthcare provider will close and bandage the incision site in the groin. ?? After your procedure After the procedure, you will spend several hours in a recovery room. You may be sleepy when you wake up. Your healthcare team will watch your heart rate and breathing. You???ll be given pain medicine if you need it. You may need to lie flat without bending your legs for several hours after the procedure. This is to help prevent bleeding from the incision site. You may be able to go home the same day. Or you may need to stay in the hospital overnight. Your healthcare provider will tell you what to expect. When you???re ready to go home, you???ll need to have a family member or friend drive you. ?? Recovering at home Your healthcare provider may prescribe medicines to help prevent blood clots or spasm of your bloodvessels. Follow all of your healthcare provider???s instructions. This includes any advice about medicines, exercise, and wound care. The post-procedure medicines are very important. Don't skip or adjust the dose. Call your healthcare provider if you have medicine questions. You may have some pain after the procedure. You may have a bruise and swelling where the catheter was inserted in your groin. You can take vfqt-awk-zganqfz pain medicines if you need to. Get some rest. Don't do any strenuous exercise for at least 24 hours. ?? Follow-up care If you had symptoms from your carotid stenosis, these should go away after the procedure. In follow-up appointments, your healthcare provider will talk with you about your continued care. This includes ways to lower your risk for atherosclerosis. You also may need follow-up blood tests or imaging of your neck. ?? When to call your healthcare provider Call your healthcare provider right away if you have any of these: ??? Fever of 100.4??F (38.0??C) or higher, or as advised by your healthcare provider ??? Swelling or pain at the incision site gets worse ??? Fluid or blood leaking from the incision site ??? Redness or warmth at the incision site ??? The limb that was used for the puncture site is cold, painful, numb, tingling, changes color, or has loss of function ??? New symptoms or symptoms get worse ??? Chest pain or trouble breathing (Call 911) ?? Call 911 right away if you have any of the following symptoms of stroke: ??? Weakness, tingling, or loss of feeling on one side of your face or body ??? Sudden double vision or trouble seeing in one or both eyes ??? Sudden trouble talking or slurred speech ??? Trouble understanding others ??? Sudden, severe headache ??? Dizziness, loss of balance, or a sense of falling ??? Blackouts or seizures B.E. F.A.S.T. is an easy way to remember the signs of stroke. When you see these signs, you know that you need to call 911 fast. B.E. F.A.S.T. stands for: ??? B is for balance. Sudden loss of balance or coordination. ??? E is for eyes. Vision changes in one or both eyes. ??? F is for face drooping. One side of the face is drooping or numb. When the person smiles, the smile is uneven. ??? A is for arm weakness. One arm is weak or numb. When the person lifts both arms at the same time, one arm may drift downward. ??? S is for speech difficulty. You may notice slurred speech or trouble speaking. The person can't repeat a simple sentence correctly when asked. ??? T is for time to call 911. If someone shows any of these symptoms, even if they go away, call 911 right away. Make note of the time the symptoms first appeared. ?? Last Reviewed Date: 2023 ?? [employer]. All rights reserved. This information is not intended as a substitute for professional medical care. Always follow your healthcare professional's instructions. ?? * Event Display: Hemodynamic Procedure Report Authored Date: History and physical note * Ever Dorsey MD: PERFORM Event Display: History and Physical Hospital Authored Date: Patient: ??FAISAL ARELLANO ? Age:??78 Years?Sex:??Male?:??1945?? Chief Complaint/Reason for Consultation NSTEMI History of Present Illness The pt is 78 yo??M??w pmhx of??CAD/HFpEF/CHF, Afib on Eliquis, COPD on 2-3 L o2, ILD, HTN. HLP, Hypothyroidism,??BPH with Melody's??was planned for cystoscopy and laser treatment tomorrow by Dr. George, GERD, Fe def, Psoriasis on Humira q2 wks, last dose was this weekend but was not given due to acute problems. He presented to [facility] w [facility]AY. He was at pulmonary rehab office when c/o sob,Orthopnea, PND. he denied cough productive sputum, fever chills, cp pressure palpitation. He was taken to [facility]. He was noted to be tachycardic at 140s, tachypneic at 30s. He was not hypoxic. His BNP was mildly elevated, lower than his usual.??CT scan showed pulmonary edema, small effusion with inf lammatory??reaction. He was diagnosed with Acute on Chronic diastolic HF exacerbation, treated withIV Lasix bid. ILD exacerbation was also concerned, which was treated with IV steroid given and po??steroid was contemplated but is not carried out further since believed this is more to do with CHF. However, he ruled??in for??NSTEMI.??He was seen by Dr. Pugh, due to possibility of 3 vessel disease he was recommended transfer and cardiac cath in am by Dr. Jean-Baptiste.??He is breathing much better now. He denies cp??pressure palpitation.?? Review of Systems Comprehensive review??negative unless mentioned as above Objective Measurements?? Weight: 88.5 kg (03/01/24) ?? Vital Signs?? Temperature: 97.6 DegF (03/01/24 16:26:00) Temperature Route: Oral (03/01/24 16:26:00) Pulse Rate: 79 bpm (03/01/24 16:26:00) Respiratory Rate: 18 br/min (03/01/24 16:26:00) Systolic Blood Pressure: 126 mm Hg (03/01/24 16:26:00) Diastolic Blood Pressure: 70 mm Hg (03/01/24 16:26:00) Blood pressure sites: Arm, left (03/01/24 16:26:00) Mean Arterial Pressure: 89 mm Hg (03/01/24 16:26:00) Pulse Pressure: 56 mm Hg (03/01/24 16:26:00) Oxygen Saturation: 98 % (03/01/24 16:26:00) Liters per Minute: 2 L/min (03/01/24 16:26:00) Mode of Delivery (Oxygen): Nasal cannula (03/01/24 16:26:00) Early Warning Score: 2 (03/01/24 16:26:27) ? Pain Scores?? No qualifying data available. ?? Intake/Output? 03/01 12:48 03/01 07:00 02/28 07:00 02/27 07:00 02/26 07:00 ?? 03/01 17:35 03/01 17:35 03/01 06:59 02/28 06:59 02/27 06:59 Intake ?0 ?0 ?0 ?0 ?0 Output ?325 ?325 ?0 ?0 ?0 Net Total ? -325 ? -325 ?0 ?0 ?0 ? Physical Exam Constitutional: Alert, in no distress. Mental Status: Oriented to person, place and time. Head: Normocephalic. Eyes: Pupils are equal, round and reactive to light. Extraocular muscles intact. Ear, Nose and Throat: Oropharynx clear, mucous membranes moist. Trachea midline. Neck: Supple, Full range of motion. Respiratory: Clear to auscultation. No wheezing, rales or rhonchi. Cardiovascular: S1 S2 regular. No murmurs, rubs or gallops. Gastrointestinal: Abdomen soft, non-tender, non-distended. Normal bowel sounds. No pulsatile mass. No hepatosplenomegaly. Neurologic: No focal neurological deficits. Flexor plantar response. Moves all extremities spontaneously. Sensation intact bilaterally. Skin: Psoriatic??and??actinic??changes Musculoskeletal: No cyanosis or clubbing. No gross deformities. Normal range of motion. Psychiatric: Normal mood and affect Assessment/Plan ? Non-ST elevation (NSTEMI) myocardial infarction ??(I21.4) (HFpEF) heart failure with preserved ejection fraction ??(I50.30), acute on chronic exacerbation CAD (coronary artery disease) ??(I25.10) A-fib ??(I48.91) Plan -Admit to tele -Cont low dose asa -Holding Plavix -Holding Eliquis -Cont Metoprolol ER 75 mg po qd -Cont Dilt 180 mg po qd -PRN IV Dilt if HR>110 consistently -Cont Lasix 20 mg po qd -Cont statin -Cont Dig 0.125 mg po MWF -Dig level in am, goal <1 -PRN EKG -Labs ordered -Lipid panel and hgba1c in am -Cycle trop -ECHO in am -NPO after MN -Dr. Jean-Baptiste to do cath ? COPD mixed type ??(J44.9) ILD (interstitial lung disease) ??(J84.9) Plan -Cont Breo Ellipta instead of Breztri (we do not have in our formulary) -PRN DuoNeb -Supplemental o2, goal o2 sat 90-94%, due to Afib ? BPH (benign prostatic hyperplasia) ??(N40.0) Plan -Cont high dose Flomax -Monitor clinically -Low threshold for UA and cover for UTI due to Melody's ? HLP Plan -Cont high dose statin ? Chronic GERD ??(K21.9) Plan -Cont Famotidine -Cont Vit D and Vir B12 ? Iron deficiency ??(E61.1) Plan -Cont Fe replacement ? Psoriasis ??(L40.9) Plan -Holding Humira ? Hypothyroidism Plan -Cont Levothyroxine ? Quality Measures?? VTE Prophylaxis:??VTE, high risk, Eliquis immediately after cath in am ?VTE Prophylaxis Assessment:??VTE Prophylaxis Ordered NPO after MN, cardiac after cath?? Code Status:??Full code ?Order Code Status:??Code Status Ordered ?? Histories Allergies Allergies ?(Active and Proposed Allergies Only) regadenoson? (Severity: Unknown severity, Onset: Unknown) lisinopril? (Severity: Unknown severity, Onset: Unknown) ?Reactions: Unknown hydroCHLOROthiazide? (Severity: Unknown severity, Onset: Unknown) ?Reactions: Unknown penicillin? (Severity: Persistent Severe, Onset: Unknown) ?Reactions: Throat Swelled ?? Past Medical History/Problem List CAD CHF Afib COPD??on 2L o2 HTN HLP Hypothyroidism BPH Bladder chrystals GERD Fe def Psoriasis ?? Past Surgical History AAA Repair BL caratact extraction partial thyroidectomy s/p stent s/p Colonoscopy Appendectomy Tonsillectomy Lung biopsy ?? Social History Alcohol Details:??Use: Never. Substance Abuse Details:??Use: Never. Tobacco Details:??Use: Former smoker, quit more than 30 days ago. ??Other: Quit smoking 6 years ago. ?? Family History M throat cancer F CAD Medications Home Medications Adalimumab (Humira Pen 40 mg/0.4 mL subcutaneous kit)?See Instructions?Subcutaneous Infusion Once apixaban (Eliquis 5 mg oral tablet)?1?tab(s)?5?Milligram?By Mouth?2 times a day Aspirin (aspirin 81 mg oral tablet)?81?Milligram?By Mouth?Daily Atorvastatin (Lipitor 80 mg oral tablet)?1?tab(s)?80?Milligram?By Mouth?Daily at bedtime budesonide/formoterol/glycopyrrolate (Breztri Aerosphere inhalation aerosol)?10 Gm, 0 Refill(s),INHALE 2 PUFFS TWICE A DAY Cholecalciferol (cholecalciferol 2000 intl units oral capsule)?0 Refill(s) Clopidogrel (clopidogrel 75 mg oral tablet)?75?Milligram?1?tablet?By Mouth?Daily Diltiazem (DilTIAZem (Eqv-Cardizem CD) 180 mg/24 hours oral capsule, extended release)?90 each, 0 Refill(s), TAKE 1 CAPSULE BY MOUTH EVERY DAY Famotidine (famotidine 20 mg oral tablet)?180 each, 0 Refill(s), TAKE 1 TABLET BY MOUTH 2 TIMES A DAY FOR 90 DAYS Ferrous Sulfate (ferrous sulfate 325 mg oral enteric coated tablet)?90 each, 0 Refill(s), TAKE 1TABLET BY MOUTH EVERY DAY FOR 90 DAYS Furosemide (furosemide 20 mg oral tablet)?90 each, 0 Refill(s), TAKE 1 TABLET BY MOUTH EVERY DAY Levothyroxine (levothyroxine 0.05 mg oral tablet)?90 each, 0 Refill(s), TAKE 1 TABLET ORALLY EVERY MORNING Metoprolol (Metoprolol Tartrate 25 mg oral tablet)?540 each, 0 Refill(s), TAKE 3 TABLETS ORALLY 2 TIMES A DAY FOR 90 DAYS Tamsulosin (tamsulosin 0.4 mg oral capsule)?180 each, 0 Refill(s), TAKE 2 CAPSULES BY MOUTH DAILY I reviewed w the pt ?? Inpatient Medications Medications (26) Active SCHEDULED: (14) Aspirin 81 mg Chew Tablet (aspirin 81 mg oral tablet, chewable) ??81 mg, By Mouth, Daily Atorvastatin 80 mg Tablet (atorvastatin 80 mg oral tablet) ??80 mg, By Mouth, Daily at bedtime Breo Ellipta 200 mcg / 25 mcg Inhaler (Breo Ellipta 200 mcg-25 mcg Inhaler) ??1 puffs, Inhalation, Daily Digoxin 0.125 mg Tablet (Digoxin Tablet) ??0.125 mg, By Mouth, Every Saturday, Saturday and Saturday Diltiazem 180 mg/24 hour CD Capsule (diltiazem 180 mg/24 hours oral capsule, extended release) ??180 mg, By Mouth, Daily Famotidine 20 mg Tablet (famotidine 20 mg oral tablet) ??20 mg, By Mouth, Daily Ferrous Sulfate 325 mg EC Tablet (ferrous sulfate 325 mg oral enteric coated tablet) ??325 mg, By Mouth, Daily Furosemide 20 mg Tablet (furosemide 20 mg oral tablet) ??20 mg, By Mouth, Daily Levothyroxine 25 mcg Tablet (levothyroxine 0.025 mg oral tablet) ??50 mcg, By Mouth, Daily Metoprolol 25 mg XL Tablet (Toprol XL 25 mg oral tablet, extended release) ??75 mg, By Mouth, Daily NaCl 0.9% Flush 3ml (NaCL 0.9% Flush) ??3 mL, IV Push, Every 8 hours Tamsulosin 0.4 mg Capsule (tamsulosin 0.4 mg oral capsule) ??0.8 mg, By Mouth, Daily Vitamin B-12 ??1000 mcg Tablet (cyanocobalamin 1000 mcg oral tablet) ??1,000 mcg, By Mouth, Daily Vitamin D 1000 IU Tablet (cholecalciferol 1000 intl units oral tablet) ??2,000 International_Units,By Mouth, Daily CONTINUOUS: (0) PRN: (12) Acetaminophen 325 mg Tablet (Acetaminophen Tablet) ??650 mg, By Mouth, Every 4 hours Albuterol/Ipratropium Inhalation Itzel 3mL (Duoneb Inhalation Solution) ??1 vials, BAND Nebulizer, Every 4 hours Dextromethorphan-Guaifenesin 20 mg-200 mg/10 mL Liqu UD (Robitussin DM Liquid) ??10 mL, By Mouth, Every 4 hours Docusate Sodium 100 mg Capsule (Docusate Sodium Capsule) ??100 mg 1 capsule, By Mouth, 2 times a day HYDROmorphone 0.5 mg/0.5 mL Inj Syringe (Dilaudid Inj) ??0.5 mg 0.5 mL, IV Push Slowly, Every 4 hours HYDROmorphone 2 mg Tablet (Dilaudid 2 mg oral tablet) ??2 mg, By Mouth, Every 4 hours Melatonin 3 mg Tablet (Melatonin Tablet) ??3 mg, By Mouth, Daily at bedtime NaCl 0.9% Flush 3ml (NaCL 0.9% Flush) ??3 mL, IV Push, Every 8 hours Nitroglycerin 0.4 mg Sublingual Tablet (nitroglycerin 0.4 mg sublingual tablet) ??0.4 mg, Sublingual, Every 5 minutes Polyethylene Glycol 17 Gm Powder (MiraLax Powder) ??17 Gm 1 pack/packet, By Mouth, Daily Senna Tablet ??8.6 mg 1 tablet, By Mouth, 2 times a day Simethicone 80 mg Chewable Tablet (Simethicone Tablet) ??80 mg, Chew, 3 times a day Results Recent Labs No labs resulted between 02/29/2024 00:00 and 03/01/2024 17:35? Abnormal Labs No lab data available. ?? All labs pending ?? CBC, CBC w/Diff?? No qualifying data available. ?? BMP, Mg, and Phos?? No qualifying data available. ?? Coagulation Profile?? No qualifying data available. ?? LFT?? No qualifying data available. ?? Urinalysis?? No qualifying data available. ?? Blood Gases?? No qualifying data available. ? EKG study * Event Display: ECG 12-Lead Authored Date: Please click on pdf link to open report * Event Display: ECG 12-Lead Authored Date: Ventricular Rate: 85 BPM QRS Duration: 80 ms Q-T Interval: 348 ms QTC Calculation(Bazett): 414 ms R [place]: 7 degrees T [place]: 32 degrees Atrial fibrillation Nonspecific ST abnormality Abnormal ECG When compared with ECG of 02-MAR-2024 13:09, No significant change was found Confirmed by CECELIA CHOI ([id number]) on 03/03/2024 1:28:43 PM [place]: CECELIA CHOI * Event Display: ECG 12-Lead Authored Date: [id number] Please click on pdf link to open report * Event Display: ECG 12-Lead Authored Date: [id number] Ventricular Rate: 86 BPM QRS Duration: 80 ms Q-T Interval: 338 ms QTC Calculation(Bazett): 404 ms R [place]: 2 degrees T [place]: 25 degrees Atrial fibrillation with premature ventricular or aberrantly conducted complexes Abnormal ECG When compared with ECG of 02-MAR-2024 10:06, No significant change was found Confirmed by Wyatt Bryson ([id number]) on 03/02/2024 1:11:47 PM [place]: Wyatt Bryson * Event Display: ECG 12-Lead Authored Date: Please click on pdf link to open report * Event Display: ECG 12-Lead Authored Date: Ventricular Rate: 84 BPM QRS Duration: 88 ms Q-T Interval: 350 ms QTC Calculation(Bazett): 413 ms R [place]: 11 degrees T [place]: 17 degrees Atrial fibrillation Abnormal ECG When compared with ECG of 11-APR-2021 07:14, No significant change was found Confirmed by Wyatt Bryson ([id number]) on 03/02/2024 11:24:33 AM [place]: Wyatt Bryson Heart * Event Display: Echocardiogram - Complete Authored Date: [id number] Transthoracic Echocardiography Report (TTE) Patient Demographics Patient Name FAISAL ARELLANO Date of Study 03/02/2024 Corporate Gender Male Facility Race .[id number] Ethnicity Date of 1945 Height: 68.5 inches Age 78 year(s) Weight: 194.01 pounds Accession Number [id number] BSA: 2.03 m2 Room Number [id number] BMI: 29.07 kg/m2 Referring Sunita Donald MD Physician [employer] Data Analyst Hector Huynh Fellow Corky PAINTING Gentry Indications NSTEMI. Clinical History Coronary artery disease S/P Stent x3 COPD Hypertension. Atrial fibrillation. Hx Tobacco use. Study Data Type of Study TTE procedure:Echo Complete-Doppler, Colorflow, M-Mode, 3D Rendering with Post Processing, Strain. Study Date03/02/2024 Start Time: 02:15 PM Study Location: [facility] Echo Study Status: Bedside Patient Status: Routine Technical Quality: Fair due to body habitus. Blood Pressure:137/78 mmHg EKG: Atrial fibrillation HR: 85 bpm Allergies - Penicillins. - Lisinopril. - Other allergy:(HCTZ, regadenoson). 2D Measurements LV Diastolic Dimension: 5.1 cm LV Systolic Dimension: 4 cm LV Septum Diastolic: 1.3 cm LV PW Diastolic: 1.2 cm AO Root Dimension: 3.5 cm LA Dimension: 5.2 cm LA ESV (BP):83.4 ml LVOT Stroke Volume: 75.96 ml LA ESV Index: 41 ml/m2 Stroke Volume Index37.42 ml/m2 LVOT: 2.4 cm Cardiac Index:3.18 l/min/m2 Ascending Aorta:3.8 cm Doppler Measurements AV Peak Velocity: 142 cm/s AV Peak Gradient: 8.07 mmHg AV Mean Gradient: 6 mmHg AV VTI:27.6 cm LVOT Peak Velocity: 86.2 cm/s LVOT VTI16.8 cm AV Area (Continuity):2.75 cm2 PV Peak Velocity: 77.7 cm/s PV Peak Gradient: 2.41 mmHg Estimated RAP:3 mmHg Cardiac Anatomy Left Ventricle/Interventricular Septum The left ventricular size is normal. There is mild concentric left ventricular hypertrophy. The LV systolic function is mildly reduced. The left ventricular ejection fraction is visually 40-45%. 3D volumetric ejection fraction is calculated at 45%. There is mild global hypokinesis of the left ventricle. Unable to assess diastolic function due to atrial fibrillation. Left Atrium/Interatrial Septum The left atrium is mildly dilated. Aortic Valve The aortic valve is trileaflet. The aortic valve appears mildly calcified. There is trace aortic regurgitation. There is no aortic stenosis. Mitral Valve There is mild mitral annular calcification. There is trace mitral regurgitation. There is no mitral stenosis. The mitral valve appears mildly thickened. Aorta The ascending aorta and aortic root are normal in size when indexed for body surface area (BSA). Right Ventricle The right ventricle is mildly dilated. Right ventricular systolic function is normal. Right Atrium The right atrium is normal in size. Pulmonic Valve The pulmonic valve is poorly visualized. There is trace pulmonic regurgitation. Tricuspid Valve The tricuspid valve is poorly visualized. There is trace tricuspid valve regurgitation. Pumonary Artery An accurate pulmonary artery pressure could not be obtained. Venous Structures The inferior vena cava size is normal with normal inspiratory collapse. The central venous pressure estimation is 3 mmHg. Pericardium/Extracardiac There is no pericardial effusion. Summary The left ventricular size is normal. There is mild concentric left ventricular hypertrophy. The LV systolic function is mildly reduced. The left ventricular ejection fraction is visually 40-45%. 3D volumetric ejection fraction is calculated at 45%. There is mild global hypokinesis of the left ventricle. Unable to assess diastolic function due to atrial fibrillation. The left atrium is mildly dilated. The aortic valve is trileaflet. The aortic valve appears mildly calcified. There is trace aortic regurgitation. There is no aortic stenosis. There is mild mitral annular calcification. There is trace mitral regurgitation. There is no mitral stenosis. The mitral valve appears mildly thickened. The right ventricle is mildly dilated. Right ventricular systolic function is normal. An accurate pulmonary artery pressure could not be obtained. Comparison No prior study available for comparison. Signature * Event Display: Echocardiogram - Complete Authored Date: Cardiology * Event Display: Cardiac Rhythm Strips Authored Date: * Event Display: Cardiac Rhythm Strips Authored Date: * Event Display: Cardiac Rhythm Strips Authored Date: Hospital Progress note * Aaron Atkins RN: PERFORM, MODIFY, SIGN, VERIFY Event Display: Progress Note Hospital Authored Date: Patient: FAISAL ARELLANO Age: 78 years Sex: Male : 1945 Associated Diagnoses: None Author: Aaron Atkins RN Findings Problem Related to Alteration in Cardiac Function (new) : Alteration in Cardiac Function/new 03/03/2024 10:36 EST Alteration in Cardiac Status Related to Dysrhythmia Goals & Outcomes, Cardiac Status Pt will resume/maintain adequate cardiac output, Pt will resume/maintain adequate hemodynamic status, Pt will resume/maintain adequate respiratory function, Pt will resume/maintain intact neuro function Cardiac Interventions Implemented Assess/monitor cardiac status, Assess/monitor neuro status, Assess/monitor respiratory status BH Goals/Interventions, Cardiac Yes Cardiac, Problem Start 03/01/2024 12:48 Reviewed Plan with, Cardiac Status Patient Patient Progression, Cardiac Status Patient progressing according to plan . Nursing Data Vital Signs : VITAL SIGNS SECTION 03/03/2024 8:05 EST Temperature 97.4 DegF Temperature Route Oral Pulse Rate 95 bpm H Respiratory Rate 18 br/min Systolic Blood Pressure 131 mm Hg Diastolic Blood Pressure 69 mm Hg Blood pressure sites Arm, left Mean Arterial Pressure 90 mm Hg Pulse Pressure 62 mm Hg Oxygen Saturation 100 % Liters per Minute 3 L/min Mode of Delivery (Oxygen) Nasal cannula . Narrative/Incidental Pt A&Ox4. Afib on tele, HR up to 150s on exertion. LS dim on 2-3L baseline. R wrist DSD CDI, surrounding skin wnl. pt cleared for discharge home w/o services. . * Eber WARREN, Blanka: PERFORM, SIGN, VERIFY Event Display: Progress Note Hospital Authored Date: Patient: FAISAL ARELLANO Age: 78 years Sex: Male : 1945 Associated Diagnoses: None Author: Eber WARREN, Blanka Findings Problem Related to Alteration in Cardiac Function (new) : Alteration in Cardiac Function/new 03/02/2024 18:00 EST Alteration in Cardiac Status Related to Dysrhythmia Goals & Outcomes, Cardiac Status Pt will resume/maintain adequate cardiac output, Pt will resume/maintain adequate hemodynamic status, Pt will resume/maintain adequate respiratory function, Pt will resume/maintain intact neuro function Cardiac Interventions Implemented Assess/monitor cardiac status, Assess/monitor neuro status, Assess/monitor respiratory status, Monitor & document daily weight, Monitor ECG w/administration of antiarrhythmics (CO 13.420) BH Goals/Interventions, Cardiac Yes Cardiac, Problem Start 03/01/2024 12:48 Reviewed Plan with, Cardiac Status Patient Patient Progression, Cardiac Status Patient progressing according to plan . Evaluation pt AFIB on tele. A/Ox4. pt came back from label stamper @ approximately 0930. TR band removed @ approximately 1300 w/ further complication of bleeding later, pressure was held to R wrist incision, bleeding controlled. label stamper was contacted and came to bedside. continued to monitor for any bleeding. pt remains safe w/ call cruz w/in reach, bed locked in the lowest position, frequent rounding. For more assessments, vitals, biophysical, see [facility].. * Gary PAINTING, Ryan: PERFORM Event Display: Progress Note Hospital Authored Date: Patient: ??FAISAL ARELLANO ? Age:??78 Years?Sex:??Male?:??1945?? Subjective ?? Mr. Arellano is our delightful and chatty 78 y.o. gentleman with a h.o.??hypertension,??hyperlipidemia,??CAD s/p JL x 2 to RCA (04/2019, Dr. Jean-Baptiste), atrial fibrillation on apixaban, ILD / emphysema /COPD / chronic hypoxic respiratory failure on 2-3 L/min chronic home O2, multinodular??goiter / adenomatoid colloid nodule s/p left-side??hemithyroidectomy (03/2021, Dr. Cunningham) /??hypothyroidism, GERD,??BPH, iron deficiency anemia,??psoriasis??(on immunosuppressive therapy with adalimumab??= Humira q 2 weeks), admitted on 03/01/2024 as a transfer from[facility] with??a??NSTEMI s/p cardiac cath??(03/02/2024, Dr. Jean-Baptiste) & JL to RCA Awaiting TTE / (?) LVEF / (?) diastolic CHF / (?) pulmonary hypertension (no prior TTE in [facility] and prior Cardiology notes do not mention any h.o. CHF) Currently * Did well with cardiac cath, per Cardiology ASA has been stopped and he will be on clopidogrel + apixaban * Afebrile Has had a lot of up's and down's in HR... from the 70's to the 150's * sCreat =??1.07 On IV fluids per protocol by Cardiology * Awaiting TTE * He wants to be discharged first thing tomorrow ?? Review of Systems General symptoms: (-)??fever?? Cardiopulmonary: (-) chest pain GI:?? (-)??abdominal pain /??(-) diarrhea :??(-) dysuria Neuro: (-) headache?? Objective Vital Signs?? Temperature: 97.6 DegF (03/02/24 09:48:00) Temperature Route: Oral (03/02/24 09:48:00) Pulse Rate: 89 bpm (03/02/24 09:48:00) Respiratory Rate: 18 br/min (03/02/24 09:48:00) Systolic Blood Pressure: 122 mm Hg (03/02/24 09:48:00) Diastolic Blood Pressure: 76 mm Hg (03/02/24 09:48:00) Blood pressure sites: Arm, left (03/02/24 09:48:00) Mean Arterial Pressure: 91 mm Hg (03/02/24 09:48:00) Pulse Pressure: 46 mm Hg (03/02/24 09:48:00) Oxygen Saturation: 100 % (11/11/24 09:48:00) Liters per Minute: 3 L/min (03/02/24 09:48:00) Mode of Delivery (Oxygen): Nasal cannula (03/02/24 09:48:00) Early Warning Score: 2 (03/02/24 09:49:24) ?? Physical Exam Afebrile, Tmax = 97.7 F, HR =??84', BP = 122 / 76 Normocephalic, DEBRA, no thrush, wearing NC at 3 L/min O2 (baseline) Clear chest to auscultation S1 / S2 no murmur Waldo abdomen, no rebound LEs (-) for edema.?? Neurologically grossly non-focal.?? _ Inpatient Medications Medications (31) Active SCHEDULED: (17) Apixaban 5 mg Tablet (Apixaban Tablet) ??5 mg, By Mouth, 2 times a day Atorvastatin 80 mg Tablet (atorvastatin 80 mg oral tablet) ??80 mg, By Mouth, Daily at bedtime Breo Ellipta 200 mcg / 25 mcg Inhaler (Breo Ellipta 200 mcg-25 mcg Inhaler) ??1 puffs, Inhalation, Daily Clopidogrel 75 mg Tablet (clopidogrel 75 mg oral tablet) ??75 mg, By Mouth, Daily in AM Clopidogrel 75 mg Tablet (Clopidogrel Tablet) ??300 mg, By Mouth, Once Digoxin 0.125 mg Tablet (Digoxin Tablet) ??0.125 mg, By Mouth, Every Saturday, Saturday and Saturday Diltiazem 180 mg/24 hour CD Capsule (diltiazem 180 mg/24 hours oral capsule, extended release) ??180 mg, By Mouth, Daily Famotidine 20 mg Tablet (famotidine 20 mg oral tablet) ??20 mg, By Mouth, Daily Ferrous Sulfate 325 mg EC Tablet (ferrous sulfate 325 mg oral enteric coated tablet) ??325 mg, By Mouth, Daily Fluzone Trivalent High Dose (>65yr) Inj 0.5 mL (Influenza, Trivalent High Dose Vaccine (Fluzone High Dose)) ??0.5 mL, Intramuscular, Once Furosemide 20 mg Tablet (furosemide 20 mg oral tablet) ??20 mg, By Mouth, Daily Levothyroxine 25 mcg Tablet (levothyroxine 0.025 mg oral tablet) ??50 mcg, By Mouth, Daily Metoprolol 25 mg XL Tablet (Toprol XL 25 mg oral tablet, extended release) ??75 mg, By Mouth, Daily NaCl 0.9% Flush 3ml (NaCL 0.9% Flush) ??3 mL, IV Push, Every 8 hours Tamsulosin 0.4 mg Capsule (tamsulosin 0.4 mg oral capsule) ??0.8 mg, By Mouth, Daily Vitamin B-12 ??1000 mcg Tablet (cyanocobalamin 1000 mcg oral tablet) ??1,000 mcg, By Mouth, Daily Vitamin D 1000 IU Tablet (cholecalciferol 1000 intl units oral tablet) ??2,000 International_Units,By Mouth, Daily CONTINUOUS: (1) Sodium Chloride 0.9% 1,000 mL [3 mL/kg/hr] (Sodium Chloride 0.9% Normalized 1,000 mL [3 mL/kg/hr]) ??1,000 mL, IV Infusion, 265.5 mL/hr PRN: (13) Acetaminophen 325 mg Tablet (Acetaminophen Tablet) ??650 mg, By Mouth, Every 4 hours Albuterol/Ipratropium Inhalation Itzel 3mL (Duoneb Inhalation Solution) ??1 vials, BAND Nebulizer, Every 4 hours Dextromethorphan-Guaifenesin 20 mg-200 mg/10 mL Liqu UD (Robitussin DM Liquid) ??10 mL, By Mouth, Every 4 hours Diltiazem 5 mg/mL Inj (5 mL) (Diltiazem Inj) ??20 mg 4 mL, IV Push Slowly, Every 4 hours Docusate Sodium 100 mg Capsule (Docusate Sodium Capsule) ??100 mg 1 capsule, By Mouth, 2 times a day HYDROmorphone 0.5 mg/0.5 mL Inj Syringe (Dilaudid Inj) ??0.5 mg 0.5 mL, IV Push Slowly, Every 4 hours HYDROmorphone 2 mg Tablet (Dilaudid 2 mg oral tablet) ??2 mg, By Mouth, Every 4 hours Melatonin 3 mg Tablet (Melatonin Tablet) ??3 mg, By Mouth, Daily at bedtime NaCl 0.9% Flush 3ml (NaCL 0.9% Flush) ??3 mL, IV Push, Every 8 hours Nitroglycerin 0.4 mg Sublingual Tablet (nitroglycerin 0.4 mg sublingual tablet) ??0.4 mg, Sublingual, Every 5 minutes Polyethylene Glycol 17 Gm Powder (MiraLax Powder) ??17 Gm 1 pack/packet, By Mouth, Daily Senna Tablet ??8.6 mg 1 tablet, By Mouth, 2 times a day Simethicone 80 mg Chewable Tablet (Simethicone Tablet) ??80 mg, Chew, 3 times a day ? Results Test Name Test Result Date/Time Sodium 139 mmol/L 03/02/2024 02:59 EST Potassium 3.6 mmol/L 03/02/2024 02:59 EST Chloride 102 mmol/L 03/02/2024 02:59 EST Bicarbonate Level 27 mmol/L 03/02/2024 02:59 EST Anion Gap 10 03/02/2024 02:59 EST Glucose Level 125 mg/dL 03/02/2024 02:59 EST Hemoglobin A1C (Monitoring) 6.0 % 03/02/2024 02:59 EST BUN 31 mg/dL 03/02/2024 02:59 EST Creatinine-Blood 1.07 mg/dL 03/02/2024 02:59 EST Estimated GFR Creatinine 71 ML/MIN/1.73 M2 03/02/2024 02:59 EST Calcium 8.6 mg/dL 03/02/2024 02:59 EST ?? Assessment/Plan ? Non-ST elevation (NSTEMI) myocardial infarction (I21.4):??. Atrial fibrillation with RVR (I48.91):??. CAD (coronary artery disease) (I25.10):??. S/P prior JL x 2 to right coronary artery (RCA) + one more during this admission. (Z95.5):??. POSSIBLE / SUSPECTED diastolic CHF (congestive heart failure) (I50.9):??. Hypertension (I10):??. Hyperlipidemia (E78.5):? Cardiology input much appreciated s/p cardiac cath??(03/02/2024, Dr. Jean-Baptiste) & JL to RCA Plan:?? * On clopidogrel + diltiazem + digoxin +??furosemide + atorvastatin +??apixaban *??Awaiting TTE / (?) LVEF / (?) diastolic CHF / (?) pulmonary hypertension (there are??no prior TTE in [facility] and prior Cardiology notes do not mention any h.o. CHF) * His HR has been all over the map, from the 70's to the 150's I wonder whether down the road he will become a candidate for AV node ablation + pacemaker.?? * If all is well, home tomorrow.? Emphysema / COPD (J44.9):??. ILD (interstitial lung disease) (J84.9):??. Chronic hypoxemic respiratory failure (J96.11):? On 3 L/min chronic home O2 On PRN albuterol-ipratropium ?? Hypothyroidism (E03.9):? On levothyroxine ?? BPH (benign prostatic hyperplasia) (N40.0):? On tamsulosin ?? Chronic GERD (K21.9):? On famotidine? Psoriasis (L40.9):? On adalimumab??= Humira q 2 weeks ?? Iron deficiency (E61.1):? On ferrous sulfate ?? VTE Prophylaxis:? On apixaban ? Ongoing Medical Necessity:? NSTEMI / atrial fibrillation with variable ventricular response ?? Discharge Planning:? If all is well, home tomorrow.? Patient Care team information Care Team Personnel Name: Amina Hollingsworth RN Position: S RN Member Role: Primary Care Nurse Name: Oswaldo Delgado MD Position: Reference Physician Member Role: PCP Address: [address] [place] [address]- Telecom: Name: Darya Menon RN Position: S RN Member Role: Primary Care Nurse Care Team Related Persons Name: LEANDRO ARELLANO Insurance Providers Guarantor name: SARAH Health Plan Information #: 1 Payer: MEDICARE A INPT 25 Member Number: [id number] Policy Number: NA Group Number: NA Health Plan Information #: 2 Payer: MEDICARE PART B OUTPT Member Number: [id number] Policy Number: NA Group Number: NA Health Plan Information #: 3 Payer: MEDEX Member Number: [id number] Policy Number: NA Group Number: [id number]
--- OUTSIDE RECORDS SUMMARY | 2024-04-01 10:13 | XMS_ITS | Data Portability ---
Author Organization [facility], [address] Address [address] [place] [address] Assessment No assessment recorded. Plan of Treatment Reminders Order Date Submit Date Provider Last Modified By Organization Details Last Modified Time Details Appointments None record ed. Lab None record ed. Referral None record ed. Procedures None record ed. Surgeries None record ed. Imaging None record ed. Medication Orders None record ed. Patient TargetsNo targets recorded. Patient Instructions Encounter Date Encounter Id Patient Instructions Last Modified By Organization Details Last Modified Time 05/18/2022 [id number] cuts: care instructions [email or web address] Not available 05/18/2022 14:28:04 Discharge Instructions - Wound Care - Wash the wound gently with soap and warm water once daily. Otherwise keep wound clean, dry and covered with a dressing. - Do not immerse in water, and do not use alcohol or peroxide to clean. Do not use iodine or mercurochrome. - Elevate to decrease pain and improve healing. - Minimize use of affected body part. - Return here or see your doctor for any sign of infection, including redness, swelling, pus or increased pain. - Return for wound check in 2 or 3 days. - Return to have stiches removed in {{5days 7 days 10 days* 2 weeks}}. General recommendations: Scalp- 7 days Face- 5 day over joints - 14 days Hands/feet- 12 days Other areas - 10 days - If you received a tetanus shot the site may become sore and you may develop a low-grade fever. Take Tylenol if you have fever or pain. Return for a more severe reaction. - See your doctor or return here if not improving in {{1 2 3* 4 5 6 7 8 9 10 11 12 13 1 4}} days. Not available 05/18/2022 13:49:28 Reason for Referral None Reported. Problems Name Problem SNOMED Code Status Onset Date Resolution Date Notes Provider Name and Address Organization Details Recorded Time Atrial fibrillation 63960817 Active 2022 Malika [place] null, PA - [facility] 3 13:50:16 Chronic obstructive pulmonary disease 64850763 Active 2022 Malika Shana null, PA - [facility] 3 13:50:20 Hypertensive disorder 16896854 Active 2022 Malika [place] null, PA - [facility] 3 13:50:27 Hyperlipidemia 03431489 Active 2022 Malika Shana null, PA - [facility] 3 13:50:33 Problem Notes None recorded. Medical Equipment None Reported. Allergies Allergen ID Allergen Name Allergen Category Reaction Reaction Severity Criticality Documentation Date Start Date Code Code System Note Provider Name and Address Organization Details Recorded Time 197997 Medicinal product containin g penicilli n and acting as antibacte rial agent (product) medicatio n anaphylax is Not available high 05/18/2022 72816 05 SNOMED Malika [place] null, PA - [facility] 3 13:49:54 Medications Name Sig Start Date Stop Date Status Note LastModified by Organization Details LastModified Time vitamin b-12 1000mcg tablet, s TAKE 1 TABLET BY MOUTH EVERY DAY active Not Available Not Available No t Available atorvastati n 80 mg tablet TAKE 1 TABLET BY MOUTH EVERY DAY AT BEDTIME active Not Available Not Available No t Available prednisone 10 mg tablet 05/18 completed Not Available Not Available Not Available betamethaso ne, augmented 0.05 % topical cream PLEASE SEE ATTACHED FOR DETAILED DIRECTION S 05/18 completed Not Available Not Available Not Available clindamycin HCl 150 mg capsule TAKE 2 CAPSULES BY MOUTH RIGHT AWAY THEN 1 CAPSULE EVERY 6 HOURS UNTIL FINISHED 05/18 completed Not Available Not Available Not Available amlodipine 2.5 mg tablet TAKE 1 TABLET BY MOUTH EVERY DAY active Not Available Not Available No t Available clopidogrel 75 mg tablet TAKE 1 TABLET BY MOUTH DAILY active Not Available Not Available No t Available levothyroxi ne 25 mcg tablet TAKE 1 TABLET BY MOUTH EVERY DAY 05/18 completed Not Available Not Available Not Available diltiazem CD 300 mg capsule,ext ended release 24 hr TAKE 1 CAPSULE BY MOUTH DAILY active Not Available Not Available No t Available levothyroxi ne 50 mcg tablet TAKE 1 TABLET BY MOUTH EVERY DAY FOR 30 DAYS active Not Available Not Available No t Available betamethaso ne, augmented 0.05 % topical ointment APPLY TOPICALLY TO PSORIASIS TWICE A DAY FOR 2 WEEKS THEN 1 WEEK OFF.THEN USE NEEDED. active Not Available Not Available No t Available digoxin 125 mcg (0.125 mg) tablet TAKE 1 TABLET BY MOUTH EVERY DAY active Not Available Not Available No t Available levofloxaci n 750 mg tablet TAKE 1 TABLET BY MOUTH EVERY DAY FOR 7 DAYS 05/18 completed Not Available Not Available Not Available albuterol sulfate HFA 90 mcg/actuati on aerosol inhaler INHALE 2 PUFF INHALED EVERY 4 TO 6 HOURS NEEDED FOR SHORTNESS OF BREATH OR WHEEZING active Not Available Not Available No t Available betamethaso ne dipropionat e 0.05 % lotion APPLY SPARINGLY TWICE DAILY TO RED SCALY AREAS ON SCALP AND EAR FOR UP TO TWO WEEKS AT A TIME. 05/18 completed Not Available Not Available Not Available doxycycline hyclate 100 mg tablet 05/18 completed Not Available Not Available Not Available calcipotrie ne 0.005 % topical ointment APPLY TWICE DAILY TO AFFECTED AREAS OF PSORIASIS . 05/18 completed Not Available Not Available Not Available metoprolol tartrate 25 mg tablet TAKE 2 TABLETS (50 MG TOTAL) BY MOUTH TWICE DAILY. active Not Available Not Available No t Available Symbicort 160 mcg-4.5 mcg/actuati on HFA aerosol inhaler INHALE 2 PUFFS INTO THE LUNGS TWICE A DAY active Not Available Not Available No t Available cholecalcif espinoza (vitamin D3) 50 mcg (2,000 unit) capsule TAKE 1 CAPSULE BY MOUTH EVERY DAY active Not Available Not Available No t Available Eliquis 5 mg tablet TAKE 1 TABLET BY MOUTH TWICE A DAY active Not Available Not Available No t Available Humira(CF) Pen 40 mg/0.4 mL subcutaneou s kit active Not Available Not Available Not Available Breztri Aerosphere 160 mcg-9mcg-4. 8mcg/actuat ion HFA aerosol inhaler INHALE TWO PUFFS BY MOUTH TWICE DAILY FOR THIRTY DAYS active Not Available Not Available No t Available Vitals Date Recorded Body height Body mass index (BMI) Body weight Oxygen saturation Oxygen saturation in Arterial blood by Pulse oximetry Heart rate Respiratory rate Body temperature Systolic blood pressure Diastolic blood pressure Provider Name and Address Organization Details Last Updated DateTime 172.72 cm 31.9 kg/m2 31223.4 g 95 % 95 % 97 /min 20 /min 97.5 [degF] 167 mm[Hg] 94 mm[Hg] Malika Saldana PA - [facility] 13:55:29 Social History Question Answer Notes LastModified by Organizat ion Details LastModified Time Tobacco Smoking Status Former Smoker Malika hayes PA - [facility] 05/18/2022 13:50:42 What Is Your Level Of Alcohol Consumption? None Information not available 05/18/2022 When Did You Quit Smoking? 6-10yearssi ncelastciga rette Information not available 05/18/2022 Have You Had Direct Contact, Or Contact During Intimacy, With Monkeypox Rash, Scabs, Or Body Fluids From A Person With Monkeypox? No Information not available 05/18/2022 Do You Use Any Illicit Or Recreational Drugs? No Information not available 05/18/2022 Have You Recently Traveled Abroad? No Information not available 05/18/2022 Do You Or Have You Ever Used Any Other Forms Of Tobacco Or Nicotine? No Information not available 05/18/2022 Sex: Unknown Functional Status None recorded. Mental Status None recorded. Family History Nothing Reported. Medical History No medical history recorded. Past Encounters Encounter ID Performer Location Encounter Start Date Encounter Closed Date Diagnosis/Indication Diagnosis SNOMED-CT Code Diagnosis ICD10 Code [id number] [address] [place] [address] 05/04/2019 10:15:48 05/04/2019 11:04:20 [id number] [address] [place] [address] 08/22/2017 10:46:43 08/22/2017 11:28:26 [id number] [address] [facility] [address] 11/06/2019 08:12:57 11/06/2019 08:47:49 [id number] [address] [facility] [place] [address] 09/10/2018 10:01:20 09/10/2018 11:14:04 [id number] [address] [facility] [place] [address] 11/07/2019 08:20:04 11/07/2019 10:41:03 [id number] [address] [facility] [place] [address] 03/02/2020 09:28:03 03/02/2020 11:43:55 [id number] [address] [facility] [place] [address] 11/04/2019 08:03:33 11/04/2019 09:40:15 [id number] Donavan Hankins DO [address] [facility] [place] [address] 05/18/2022 13:41:02 05/18/2022 14:28:46 Laceration of left hand 6410399319 1001961 S61.412A Health Concerns Section Related Observation LastModified by Organization Detai ls LastModified Time None Recorded Concern Status LastModified by Organization Details LastModified Time None Recorded Advance Directives Directive None Recorded Payers Encounter Date Sequence Insurance Name Policy Number Policy Multani Covered Member ID Multani Member ID Guarantor Name 11/04/2019 1 [place] [employer] Pablito Gipson Adielcedric [id number] 5 Edalyssa Everett 11/04/2019 2 [place] [id number] Pablito Everett [id number] Edalyssa Everett 11/06/2019 1 [place] [employer] Pablito Everett [id number] 5 Edalyssa Everett 11/06/2019 2 [place] [id number] Pablito Everett [id number] Pablito Everett 11/07/2019 1 [place]ATIONAL [employer]ERNMENT [employer] Edward P Marguerite [id number] 5 Edward P Adielton 11/07/2019 2 [place] [id number] Edward P Adielton [id number] Edward P Adielton 03/02/2020 1 MED[place] B[place]: [facility] G[facility] SERVICES Edward P Marguerite [id number] 5 Edward P Adielton 03/02/2020 2 [place] [id number] Edward P Adielton [id number] Edward P Adielton 05/18/2022 1 [place] [employer] Edalyssa Everett [id number] 5 Edward P [place] 05/18/2022 2 [place] [id number] Edalyssa Everett [id number] Edward P Marguerite Notes Date Note Type Note Provider Name and Address Organization Details Recorded Time 05/18/2022 text/html UC Wound/LacerationRep orted bypatient.Notes:76 yo malescratched by his house malik plavix and eliquisstill bleedingtried band aids w/o improvementno f/c/n/vminimal pain no CPno SOBno Hano dizzinessno f/c/n/v Donavan Hankins, DO [address] [place], [address], PA - [facility] 05/18/2022 14:30:26
== END 2024-03-27 14:55 | disposition home or self-care (01) ==
PROVIDERS: PCP Internal Medicine; Visit Provider Urology
DX: R33.9 Retention of urine, unspecified (principal); R39.9 Unspecified symptoms and signs involving the genitourinary system
CPT/HCPCS: 99213

== ENCOUNTER → 2024-03-27 13:48 | Outpatient (BNVA) | payer MEDICARE, SELFPAY ==
[2024-02-07 11:25] VITALS: BMI 32.0
== END ==
PROVIDERS: PCP Internal Medicine; Visit Provider Urology
DX: R35.1 Nocturia (principal); R33.9 Retention of urine, unspecified
CPT/HCPCS: 51798; 99212

== ENCOUNTER 2024-04-07 06:05 | Outpatient (REF) | payer MEDICARE, SELFPAY ==
[2024-02-07 11:25] VITALS: BMI 32.0
--- OUTSIDE RECORDS SUMMARY | 2024-04-07 06:09 | XMS_ITS | Data Portability ---
Author Organization [facility], [address] Address [address] [place] [address] Assessment No assessment recorded. Plan of Treatment [...] By Organization Details Last Modified Time 05/18/2022 [id number] cuts: care instructions [email or web address] Not available 05/18/2022 [...] Address Organization Details Recorded Time Atrial fibrillation 78416071 Active 2022 Malika Strathcona null, PA - [facility] 3 13:50:16 Chronic obstructive pulmonary disease 23991395 Active 2022 Malika Shana null, PA - [facility] 3 13:50:20 Hypertensive disorder 17437685 Active 2022 Malika Strathcona null, PA - [facility] 3 13:50:27 Hyperlipidemia 91970692 Active 2022 Malika Shana null, PA - [facility] 3 13:50:33 Problem Notes None recorded. Medical Equipment None Reported. Allergies Allergen ID Allergen Name Allergen Category Reaction Reaction Severity Criticality Documentation Date Start Date Code Code System Note Provider Name and Address Organization Details Recorded Time 933275 Medicinal product containin g penicilli n and acting as antibacte rial agent (product) medicatio n anaphylax is Not available high 05/18/2022 85889 05 SNOMED Malika Strathcona null, PA - [facility] 3 13:49:54 [...] Last Updated DateTime 172.72 cm 31.9 kg/m2 67266.4 g 95 % 95 % 97 /min [...] Diagnosis/Indication Diagnosis SNOMED-CT Code Diagnosis ICD10 Code [id number] [address] [place] [address] 05/04/2019 10:15:48 05/04/2019 11:04:20 [id number] [address] [place] [address] 08/22/2017 10:46:43 08/22/2017 11:28:26 [id number] [address] [place] [address] 11/06/2019 08:12:57 11/06/2019 08:47:49 [id number] [address] [facility] [place] [address] 09/10/2018 10:01:20 09/10/2018 11:14:04 [id number] [address] [facility] [place] [address] 11/07/2019 08:20:04 11/07/2019 10:41:03 [id number] [address] [facility] [place] [address] 03/02/2020 09:28:03 03/02/2020 11:43:55 [id number] [address] [facility] [place] [address] 11/04/2019 08:03:33 11/04/2019 09:40:15 [id number] Donavan Hankins DO [address] [facility] [place] [address] 05/18/2022 13:41:02 05/18/2022 14:28:46 Laceration of left hand [id number] S61.412A Health Concerns Section Related Observation LastModified by Organization Detai ls LastModified Time None Recorded Concern Status LastModified by Organization Details LastModified Time None Recorded Advance Directives Directive None Recorded Payers Encounter Date Sequence Insurance Name Policy Number Policy Multani Covered Member ID Multani Member ID Guarantor Name 11/04/2019 1 [place] [employer] Pablito Gipson [employer] [id number] 5 Edalyssa Everett 11/04/2019 2 [place] [id number] Pablito Everett [id number] Edalyssa Everett 11/06/2019 1 [place] [employer] Pablito Everett [id number] 5 Edalyssa Everett 11/06/2019 2 [place] [id number] Pablito Everett [id number] Pablito Everett 11/07/2019 1 [place] [employer]ATIONAL [employer]MENT [employer] Edward P Marguerite [id number] 5 Edward P Adielton 11/07/2019 2 [place] [id number] Edward P Adielton [id number] Edward P Adielton 03/02/2020 [address] MED[address] B-[place]: [facility]ERN[facility] Edward P Marguerite [id number] 5 Edward P Adielton 03/02/2020 2 [place] [id number] Edward P Adielton [id number] Edward P Adielton 05/18/2022 1 [place] [employer]ATIONAL [employer]MENT [employer] Edalyssa Everett [id number] 5 Edward P Hal[place] 05/18/2022 2 [place] [id number] Edalyssa Everett [id number] 87 Edward P Marguerite Notes Date Note Type Note Provider Name and Address Organization Details Recorded Time 05/18/2022 text/html UC Wound/LacerationRep orted bypatient.Notes:76 yo malescratched by his house malik plavix and eliquisstill bleedingtried band aids w/o improvementno f/c/n/vminimal pain no CPno SOBno Hano dizzinessno f/c/n/v Donavan Hankins, DO [address] [place], [address], [place] - [facility] 05/18/2022 14:30:26
--- OUTSIDE RECORDS SUMMARY | 2024-04-07 06:09 | XMS_ITS | Patient Health Record ---
Author Organization [facility] Address [address] [place] [address] Care Team Providers Care Pulmonologist Intensivist Name Role Phone Oswaldo Delgado MD Primary Care Provider Ever Colmenares [phone] ALLERGIES Allergen (clinical drug ingredient) Drug/Non Drug Allergy documented on EMR Reaction Allergy Type Onset Date Status Penicillin Unknown Drug Allergy Active lisinopril Lisinopril Unknown Drug Allergy Activ e hydrochlorothiazide Hydrochlorothiazide Unknown Drug Aller gy Active REASON FOR REFERRAL No Information MEDICATIONS Medication SIG (Take, Route, Frequency, Duration) Notes Start Date End Date Status Atorvastatin Calcium 80 MG Oral for 90 Active CVS Vitamin B12 1000 MCG Oral for 90 Active Humira Pen 40 MG/0.4ML Subcutaneous for 28 Active Eliquis 5 MG Oral for 30 Activ e Metoprolol Tartrate 25 MG Oral for 90 Active Symbicort 160-4.5 MCG/ACT Inhalation for 90 Active dilTIAZem HCl ER Coated Beads 300 MG Oral for 90 Active Clopidogrel Bisulfate 75 MG Oral for 90 Active Levothyroxine Sodium 50 MCG Oral for 90 Active Betamethasone Dipropionate Aug 0.05 % External for 15 Active Breztri Aerosphere 160-9-4.8 MCG/ACT Inhalation for 30 Activ e IMMUNIZATIONS Vaccine Route Administration Date Status Comme nts Influenza Unknown 01/20/2021 Administered Influenza Unknown 03/13/2022 Administered SOCIAL HISTORY Tobacco Use: Social History Observation Description Date Details (start date - stop date) Former Smoker NA - NA Sex Assigned At : Social History Observation Description Sex Assigned At Unknown Tobacco Use/Smoking Question Answer Notes Patient is a former smoker How long has it been since you last smoked? 5-10 years Alcohol Screen Question Answer Notes Did you have a drink containing alcohol in the p ast year? No Points 0 Interpretation Negative PROBLEMS Problem Type ICD Code Onset Dates Problem Status W/U Status Risk SNOMED Code Notes Problem correction current use of anticoagulant (Z79.01) Active confirmed 366004512 Problem Encounter for screening for malignant neoplasm of colon (Z12.11) Active confirmed 576765039 Problem Diverticulosis of colon (K57.30) Active confirmed Diverticulosi s of colon (249246161) Problem Esophageal dysphagia (R13.19) Active confirmed 55567464 PLAN OF TREATMENT Pending Test Test Name Order Date XR BARIUM SWALLOW-ESOPHAGUS 05/23/2022 Future Test Test Name Order Date COLONOSCOPY 04/27/2021 Insurance Providers Payer Name Payer Address Payer Phone Subscriber Number Group Number Insured Name Patient Relationship to Insured Coverage Start Date Coverage End Date MEDICARE OF [place] [address] [facility] [address] [id number] FAISAL ARELLANO Self - patient is the insured MEDEX ATTN CLAIMS [address] [place] [address] [id number] FAISAL ARELLANO Self - patient is the insured MEDICAL (GENERAL) HISTORY Medical History History ICD Code Ascending aortic aneurysm COPD Coronary artery disease--[place] and 2 stents in 2019-Dr. Jean-Baptiste Osteoporosis Psoriasis - on humira pulmonary nodule Renal stones Thyroid nodule Vitamin D deficiency Wedge compression fracture of T9 vertebr a Hypertension Afib Denies DM,CVA,renal disease Negative screening colonoscopy in 2007 Colonoscopy 05/2020 with a small tubular adenoma removed Surgical History Surgery Date(Month/Year) Appendectomy Tonsillectomy Lung biopsy 11/22/2016 Thyroid-benign
[2024-04-07 07:46] LABS: B Type Natriuretic Peptide 319 pg/mL (<100)
[2024-04-07 09:59] LABS: MANUAL DIFF FLAG NO
[2024-04-07 10:06] LABS: Appearance Urine Clear; Color Urine Yellow; Glucose Urine UA Negative (Negative); Leukocyte Esterase Urine Large (3+) (Negative); Nitrite Urine Negative (Negative); PH 6.5 (5.0-9.0); UMIC TRIGGER UA YES; Urine Blood Negative (Negative); Urine Ketones Negative (Negative); Urine Protein Negative (Neg-Trace)
[2024-04-07 10:09] LABS: Bacteria Urine None Seen (None Seen); Hyaline Casts Urine 0-2 /LPF (0-2); RBC Urine 0-2 /HPF (0-2); Squamous Epithelial Cell Urine 0-2 /HPF (0-2); WBC Urine >50 /HPF (0-5)
[2024-04-07 10:10] LABS: Basophils Percent Auto 0.4 % (0-2); Eosinophils Absolute Auto 0.1 X10*3/uL (0.0-0.4); Eosinophils Percent Auto 1.3 % (0-4); Hemoglobin 10.9 g/dl (14.0-18.0); Imm Gran Abs Auto 0.04 X10*3/uL (0.00-0.03); Imm Gran Pct Auto 0.5 % (0.0-0.4); Immature Retic Fraction 21.7 % (2.3-13.4); Lymphocytes Absolute Auto 1.5 X10*3/uL (1.2-4.9); Lymphocytes Percent Auto 18.3 % (20-40); Mean Corpuscular HGB Conc 32.1 g/dl (31.0-36.0); Mean Corpuscular Hemoglobin 32.9 pg (27.0-33.0); Mean Corpuscular Volume 102.7 fL (80.0-98.0); Monocytes Absolute Auto 0.8 X10*3/uL (0.1-1.2); Monocytes Percent Auto 10.5 % (2-11); Neutrophils Absolute Auto 5.5 x10*3/uL (2.0-8.3); Platelet Count 187 X10*3/uL (160-400); Red Blood Count 3.31 X10*6/uL (4.60-5.80); Red Cell Distribution Width 16.5 % (11.0-16.0); Retic HGB Equivalent 34.6 pg (30.0-35.0); Reticulocyte Percent 3.3 % (0.5-1.8); Reticulocytes Absolute 0.111 X10*6/uL (0.026-0.095)
[2024-04-07 10:23] LABS: Estimated Average Glucose 120 mg/dL; Hemoglobin A1C 113.0565 umol/L; Hemoglobin A1c % 5.8 % (<6.0); Total Hemoglobin (HGBA1C) 2817.2819 umol/L
[2024-04-07 10:32] LABS: Alanine Aminotransferase 25 U/L (0-40); Albumin Level 3.5 g/dL (3.5-5.0); Alkaline Phosphatase 126 U/L (39-117); Anion Gap 10 (12-20); Aspartate Amino Transferase 36 U/L (5-37); Bilirubin Total 0.6 mg/dL (0.0-1.0); Blood Urea Nitrogen 22 mg/dL (9-16); Calcium 8.1 mg/dL (8.4-10.2); Carbon Dioxide 29 mmol/L (22-29); Chloride 104 mmol/L (96-108); Estimated Glomerular Filt Rate > 60; Glucose Random 136 mg/dL (60-115); Iron 67 mcg/dL (45-160); Percent Iron Saturation 25 % (15-50); Potassium 3.1 mmol/L (3.3-5.1); Sodium 140 mmol/L (135-145); Total Iron Binding Capacity 270 mcg/dL (228-428); Total Protein 6.8 g/dL (6.5-8.0); Unsaturated Iron Binding 203 ug/dL
[2024-04-07 10:34] LABS: Creatinine Urine 54.85 mg/dL; Microalbum/Creatinine Ratio Ur 29.1 ug/mg cr (<30)
[2024-04-07 10:53] LABS: Ferritin 165 ng/mL (20-250); Free T4 (Free Thyroxine) 1.12 ng/dL (0.71-1.85); Thyroid Stimulating Hormone 2.92 uIU/mL (0.32-4.0)
[2024-04-07 10:57] LABS: Folate 10.5 ng/mL (> or = 4.0); Vitamin B12 871 pg/mL (200-900)
== END 2024-04-07 06:06 | disposition home or self-care (01) ==
LOC: HO.HMGCLDS 06:05
PROVIDERS: PCP Internal Medicine; Visit Provider Internal Medicine
DX: I50.9 Heart failure, unspecified (principal); E11.65 Type 2 diabetes mellitus with hyperglycemia
CPT/HCPCS: 36415; 80053; 81001; 82043; 82570; 82607; 82728; 82746; 83036; 83540; 83880; 84439; 84443; 85025; 85045

== ENCOUNTER 2024-04-16 08:20 | Outpatient (AMB) | payer MEDICARE, SELFPAY ==
[2024-02-07 11:25] VITALS: BMI 32.0
--- OUTSIDE RECORDS SUMMARY | 2024-04-16 08:24 | XMS_ITS | Patient Health Record ---
Author Organization [facility] Address [address] [place] [address] Care Team Providers Care Optician Manager Name Role Phone Oswaldo Delgado MD Primary Care Provider Ever Colmenares [phone] ALLERGIES Allergen (clinical drug ingredient) Drug/Non Drug [...] W/U Status Risk SNOMED Code Notes Problem FPC current use of anticoagulant (Z79.01) Active confirmed 456644313 Problem Encounter for screening for malignant neoplasm of colon (Z12.11) Active confirmed 428327300 Problem Diverticulosis of colon (K57.30) Active confirmed Diverticulosi s of colon (076566516) Problem Esophageal dysphagia (R13.19) Active confirmed 43039638 PLAN OF TREATMENT Pending Test Test Name Order Date XR BARIUM SWALLOW-ESOPHAGUS 05/23/2022 Future Test Test Name Order Date COLONOSCOPY 04/27/2021 Insurance Providers Payer Name Payer Address Payer Phone Subscriber Number Group Number Insured Name Patient Relationship to Insured Coverage Start Date Coverage End Date MEDICARE OF [place] [address] [place] [address] [phone] [id number] FAISAL ARELLANO Self - patient is the insured MEDEX ATTN CLAIMS [address] [place] [address] [phone] [id number] FAISAL ARELLANO Self - patient is the insured MEDICAL (GENERAL) HISTORY Medical History History ICD Code Ascending aortic aneurysm COPD Coronary artery disease--[place] and 2 stents in 2019-Dr. Jean-Baptiste Osteoporosis Psoriasis - on humira pulmonary nodule Renal stones Thyroid nodule Vitamin D deficiency Wedge compression fracture of T9 vertebr a Hypertension Afib Denies DM,CVA,renal disease Negative screening colonoscopy in 2007 Colonoscopy 05/2020 with a small tubular adenoma removed Surgical History Surgery Date(Month/Year) Appendectomy Tonsillectomy Lung biopsy 11/22/2016 Thyroid-benign
--- NOTE | 2024-04-16 08:34 | MHC.PC.OV ---
Vital Signs 04/16/24 08:36 Height 5 ft 9 in Weight 191 lb BMI 28.2 BP 122/64 Blood Pressure Location Lt brachial Position Sitting Pulse 80 Pulse Source Pulse Oximeter Pulse Oximetry (%) 95 Oxygen Delivery Method Nasal Cannula Intake Visit Reasons: 3 month F/U Intake Note: Patient here for a 3 month follow up Cigar Head Stringer Required: No Accompanied by: Self / Same As Patient Allergies Penicillins Allergy (Severe, Verified 04/16/24 08:38) Anaphylaxis hydrochlorothiazide Allergy (Unknown, Verified 04/16/24 08:38) Unknown lisinopril Allergy (Unknown, Verified 04/16/24 08:38) Unknown regadenoson [From Lexiscan] Adverse Reaction (Verified 04/16/24 08:38) Bradycardic Medication List - Last Reconciled 04/16/24 by Oswaldo Delgado MD adalimumab (Humira(CF) Pen) 40 mg subcut Q2W apixaban (Eliquis) 5 mg PO BID 90 days atorvastatin 80 mg PO BEDTIME qknxrmwwad-ridqibrc-kgsyzkwdcf 160-9-4.8 mcg/actuation (Breztri Aerosphere) 2 inhalations inhalation BID cholecalciferol (vitamin D3) 50 mcg PO DAILY clopidogrel 75 mg PO DAILY compress.stocking,knee,reg,med As directed 20-30 mm HG cyanocobalamin (vitamin B-12) (Vitamin B-12) 1,000 mcg PO DAILY digoxin 125 mcg orally Three times a week MWF; diltiazem HCl ER 180 mg PO DAILY famotidine 20 mg PO BID 90 days ferrous sulfate 325 mg PO DAILY 90 days furosemide (Lasix) 20 mg orally Take 2 tablets in morning, 1 tablet in the afternoon.; levothyroxine 50 mcg PO DAILY@0600 metoprolol tartrate 75 mg (3 x 25 mg) PO BID 30 days [OXYGEN 2 L NC keep sats > 90 As directed] [PORTABLE OXYGEN TANK As directed] tamsulosin 0.8 mg (2 x 0.4 mg) PO DAILY Tobacco use date assessed: 08/14/23 Fall risk assessment: No Falls in past year Last assessed Fall Risk: 04/16/24 Dental Screening Dental Screen Date: 04/16/24 Did you have a dental visit in the last 12 months?: Yes Did you have a dental problem in the last 6 months where you did not have access to dental care?: No Was dental information given to patient?: Patient has dentist HPI 3 month F/U HPI Details The patient is a 78-year-old male presenting with concerns related to his chronic medical conditions, specifically focusing on medication management. He has a history of coronary artery disease with a stent placed in the past and is currently on clopidogrel for antiplatelet therapy following the procedure. He was initially sent home without clopidogrel, which resulted in decreased mobility and increased discomfort until the medication was resumed, improving his symptoms. He also has heart failure with a reduced ejection fraction of 40-45%, previously recorded, and experiences related symptoms such as fluid overload. This has necessitated the use of diuretics like furosemide and regular monitoring. The patient has noted instances of shortness of breath related to pulmonary congestion. His hypertension, managed with a comprehensive antihypertensive regimen including metoprolol and diltiazem, remains a significant concern due to its contribution to cardiac and renal strain. Dyslipidemia is controlled with atorvastatin. The patient has been diagnosed with hypothyroidism and is adherent to levothyroxine therapy. Previous lab results indicate stable kidney function with occasional variations in potassium levels, necessitating careful management of electrolytes. He has a documented history of anemia, which is stable but requires monitoring, and COPD, which impacts his respiratory status. Diabetes is controlled with current glycemic indices within target range. He also has GERD managed with famotidine. Recent hospitalization was due to exacerbation of heart failure symptoms, primarily fluid overload, resulting in adjustments to diuretic therapy. The patient's renal monitoring is crucial due to potential complications from long-term diuretic use. [facility] Medical History (Updated 04/16/24 @ 09:03 by Oswaldo Delgado MD) Atrial fibrillation with rapid ventricular response Supplemental oxygen dependent ILD (interstitial lung disease) COPD (chronic obstructive pulmonary disease) Tubular adenoma of colon (~2021) Postoperative hypothyroidism Obesity (BMI 30-39.9) Atrial fibrillation Chest discomfort Bronchitis Hemoptysis HOLLOWAY (dyspnea on exertion) Abnormal SPEP Multinodular thyroid Swelling of left lower extremity Pulmonary nodules/lesions, multiple Ground glass opacity present on imaging of lung Wedge compression fracture of T9 vertebra (~2018) Coronary artery disease Hypertension Right renal stone Thyroid nodule Vitamin D deficiency Ascending aorta dilatation Obesity (BMI 30-39.9) Psoriasis Hypercholesterolemia Former smoker Stable angina Surgical History Status post AAA (abdominal aortic aneurysm) repair Hx of bilateral cataract extraction (~2022) History of partial thyroidectomy (~2020) History of heart artery stent (~2019) History of colonoscopy History of cardioversion (~2020) History of appendectomy History of tonsillectomy History of lung biopsy (~2016) Family History Father Heart disease Mother Throat cancer Paternal Grandfather Heart disease Social History Household Members: Spouse Housing: House Are you a primary care nurse rn to a significant other at home: No Do you presently have visiting nurse or other home services: No Alcohol intake: former Year quit: 2014 Patient Tobacco Use Status: Former Tobacco user Tobacco use type: Cigarette Years Smoked: 50 e-Cigarette/Vaping Use: Former Use Second Hand Smoke Exposure: No Advance Directives Date on File: 09/21/20 service: Yes Current occupational status: retired Cognitive needs: No Hearing needs: No Vision needs: Yes Questionnaire PHQ-9 Over the last 2 weeks, how often have you been bothered by any of the following problems? 1. Little interest or pleasure in doing things: not at all 2. Feeling down, depressed, or hopeless: not at all 3. Trouble falling or staying asleep, or sleeping too much: not at all 4. Feeling tired or having little energy: not at all 5. Poor appetite or overeating: not at all 6. Feeling bad about yourself - or that you are a failure or have let yourself or your family down: not at all 7. Trouble concentrating on things, such as reading the newspaper or watching television: not at all 8. Moving or speaking so slowly that other people could have noticed. Or the opposite - being so fidgety or restless that you have been moving around a lot more than usual: not at all 9. Thoughts that you would be better off or of hurting yourself in some way: not at all Total score: 0 Depression Screening Interpretation: Negative Depression Screening Done: Yes Source: Developed by Drs. Ever Nelson, Sarah Galindo, Lopez Owen and colleagues, with an educational moira from [employer]. Thrive Questionnaire Date Thrive assessed: 04/16/24 I am a: Patient What is your living situation today?: I have a steady place to live Within the past 12 months, did the food you bought not last and you didn't have the money to get more?: Never true Within the past 12 months, did you worry whether your food would run out before you got money to buy more?: Never true Do you have trouble paying for medicines?: No Do you have trouble getting transportation to medical appointments?: No Do you have trouble paying your heating and electricity bill?: No Do you have trouble taking care of your child, family member or friend?: No Do you have trouble with day-to-day activities such as bathing, preparing meals, shopping, managing finances, etc.?: No Are you currently unemployed and looking for a job?: No Are you interested in more education?: No Please select the resources that you would like help with: None Currently or been in a relationship where the following occur: No concerns reported THRIVE Score: 0 AUDIT C Alcohol Use Questionnaire (AUDIT-C) 1. How often do you have a drink containing alcohol?: Never Total Score: 0 JORGE-7 AMB Questionnaire JORGE-7 Date JORGE - 7 assessed: 04/16/24 Feeling nervous, anxious, or on edge: 0 = Not at all Not being able to stop or control worryin = Not at all Worrying too much about different things: 0 = Not at all Trouble relaxin = Not at all Being so restless that it is hard to sit still: 0 = Not at all Becoming easily annoyed or irritable: 0 = Not at all Feeling afraid as if something awful might happen: 0 = Not at all Total JORGE-7 score (0-4 normal; 5-9 mild; 10-14 moderate; 15-21 severe): 0 Source: Developed by Drs. Ever Nelson, Sarah Galindo, Lopez Owen and colleagues, with an educational moira from [employer]. Physical exam (Primary Care) Vital Signs: Last Vital Signs Pulse 80 04/16/24 08:36 BP 122/64 04/16/24 08:36 Pulse Ox 95 04/16/24 08:36 Oxygen Delivery Method Nasal Cannula 04/16/24 08:36 BMI result Body Mass Index 28.2 Tobacco/Smoking Status: Tobacco use Status Tobacco use date assessed 08/14/23 04/16/24 08:41 Patient Tobacco Use Status Former Tobacco user 04/16/24 08:41 Tobacco use type Cigarette 04/16/24 08:41 e-Cigarette/Vaping Use Former Use 04/16/24 08:41 PHQ-9: PHQ-9 Score PHQ-9: Total score 0 04/16/24 09:01 Depression Screening Interpretation: Negative Thrive Assessment: Date of Thrive Assessment Date Thrive assessed 04/16/24 04/16/24 08:41 Currently or been in a relationship where the following occur: No concerns reported Const General: alert; No acute distress Eyes Conjunctivae: conjunctivae normal Resp Auscultation: clear to auscultation bilaterally Cardio Rate: regular rate Rhythm: regular rhythm GI Inspection: Yes normal to inspection Extrem General: Yes normal to inspection and No edema Office Procedures Flu Questionnaire Does the patient have a severe egg allergy?: No Immunizations Fluarix Triv 2102-1602 (PF) 45 mcg (15 mcg x 3)/0.5 mL IM syringe Performing Provider: Oswaldo Delgado MD [facility] Documented (not given) by: CEDRICK Atkinson on 04/16/24 08:42 Reason Not Given: Received Previously Coding Level of Care Code Est Pt Level 4 (38539) Complex EM visit Add On G2211 Diagnoses Essential hypertension I10 Hypertension type: essential hypertension Postoperative hypothyroidism E89.0 Coronary artery disease involving [place] coronary artery of [place] heart without angina pectoris I25.10 Associated angina: without angina Coronary Disease-Associated Artery/Lesion type: [place] artery [place] vs. transplanted heart: [place] heart Obesity (BMI 30-39.9) E66.9 Hypercholesterolemia E78.00 Ascending aorta dilatation I77.810 Chronic atrial fibrillation I48.20 Type 2 diabetes mellitus with hyperglycemia E11.65 Chronic diastolic heart failure I50.32 Assessment & Plan Assessment & Plan (1) Hypertension: Code(s): I10 - Essential (primary) hypertension Category: Medical Qualifiers: Hypertension type: essential hypertension Qualified Code(s): I10 - Essential (primary) hypertension (2) Postoperative hypothyroidism: Comment: (s/p left hemithyroidectomy 03/2021) Code(s): E89.0 - Postprocedural hypothyroidism Category: Medical (3) Coronary artery disease: Comment: (NSTEMI 04/2019 - JL + proximal and distal RCA rotablation) 03/01/2024 PCI to RCA Code(s): I25.10 - Atherosclerotic heart disease of [place] coronary artery without angina pectoris Category: Medical Qualifiers: Associated angina: without angina Coronary Disease-Associated Artery/Lesion type: [place] artery [place] vs. transplanted heart: [place] heart Qualified Code(s): I25.10 - Atherosclerotic heart disease of [place] coronary artery without angina pectoris (4) Obesity (BMI 30-39.9): Code(s): E66.9 - Obesity, unspecified Category: Medical (5) Hypercholesterolemia: Code(s): E78.00 - Pure hypercholesterolemia, unspecified Category: Medical (6) Ascending aorta dilatation: Comment: (ascending thoracic aorta -slightly dilated 4.3 x 4.2 cm - 07/24/[address]) 01/2022 4.3-4.5 cm 02/2023 4.3September 2023 Ascending Aorta 4.4 x 4.7 cm Code(s): I77.810 - Thoracic aortic ectasia Category: Medical (7) Chronic atrial fibrillation: Code(s): I48.20 - Chronic atrial fibrillation, unspecified Category: Medical (8) Type 2 diabetes mellitus with hyperglycemia: Comment: Dr. Waddell and Dr. Mccord Code(s): E11.65 - Type 2 diabetes mellitus with hyperglycemia Category: Medical (9) Chronic diastolic heart failure: Code(s): I50.32 - Chronic diastolic (congestive) heart failure Category: Medical Plan - Continue current cardiac medication regimen, with emphasis on adherence to clopidogrel therapy post-stent to prevent thrombotic events. - Monitor fluid status and adjust diuretics as needed, considering potassium supplementation with careful dose titration to mitigate electrolyte disturbances. - Evaluate and manage hypertension aggressively with current medications, ensuring adequate blood pressure control to prevent further cardiac or renal complications. - Maintain lipid control with atorvastatin and reinforce dietary recommendations to assist in dyslipidemia management. - Monitor thyroid function periodically to ensure ongoing euthyroid state, adjust levothyroxine dosing if necessary. - Continuously monitor renal function and electrolyte levels, particularly in the context of diuretic therapy impacts. - Manage GERD with continued use of famotidine, considering potential for drug interactions and symptom control. - Regular hemoglobin checks to track anemia status, considering iron supplements or dietary modifications as needed. - Monitor diabetes markers, encouraging lifestyle modifications alongside pharmacotherapy to maintain glycemic control. - Evaluate respiratory status due to COPD, advising smoking cessation and ensuring adherence to pulmonary medications. Orders: Orders Basic Metabolic Panel 1 Week I50.32 - Chronic diastolic (congestive) heart failure Influenza [id number] Immunization Today Z23 - Encounter for immunization Medications: New potassium chloride ER (Klor-Con) 10 mEq PO BID 60 tabs 1RF
[2024-04-16 08:36] VITALS: BP 122/64; PULSE 80; O2SAT 95; BMI 28.2
== END 2024-04-16 09:20 | disposition home or self-care (01) ==
PROVIDERS: PCP Internal Medicine; Visit Provider Internal Medicine
DX: E11.65 Type 2 diabetes mellitus with hyperglycemia (principal); I77.810 Thoracic aortic ectasia; I48.20 Chronic atrial fibrillation, unspecified; I50.32 Chronic diastolic (congestive) heart failure; I10 Essential (primary) hypertension; E89.0 Postprocedural hypothyroidism; I25.10 Atherosclerotic heart disease of native coronary artery without angina pectoris; E66.9 Obesity, unspecified; E78.00 Pure hypercholesterolemia, unspecified; Z23 Encounter for immunization

== ENCOUNTER → 2024-04-16 08:20 | Outpatient (BNVA) | payer MEDICARE, SELFPAY ==
[2024-02-07 11:25] VITALS: BMI 32.0
== END ==
PROVIDERS: PCP Internal Medicine; Visit Provider Internal Medicine
DX: E89.0 Postprocedural hypothyroidism (principal); I25.10 Atherosclerotic heart disease of native coronary artery without angina pectoris; E66.9 Obesity, unspecified; E78.00 Pure hypercholesterolemia, unspecified; I77.810 Thoracic aortic ectasia; I48.20 Chronic atrial fibrillation, unspecified; E11.65 Type 2 diabetes mellitus with hyperglycemia; I11.0 Hypertensive heart disease with heart failure; I50.32 Chronic diastolic (congestive) heart failure
CPT/HCPCS: 96127; 99212

== ENCOUNTER 2024-04-24 09:31 | Outpatient (REF) | payer MEDICARE, SELFPAY ==
[2024-02-07 11:25] VITALS: BMI 32.0
--- OUTSIDE RECORDS SUMMARY | 2024-04-24 10:11 | XMS_ITS | Data Portability ---
Author Organization [facility], [address] Address [address] [place] [address] Assessment No assessment recorded. Plan of Treatment [...] By Organization Details Last Modified Time 05/18/2022 [id number] cuts: care instructions [email or web address] Not available 05/18/2022 [...] Address Organization Details Recorded Time Atrial fibrillation 47755718 Active 2022 Malika Alma null, [place] - [facility] 3 13:50:16 Chronic obstructive pulmonary disease 02546073 Active 2022 Malika Alma null, PA - [facility] 3 13:50:20 Hypertensive disorder 15884520 Active 2022 Malika Alma null, PA - [facility] 3 13:50:27 Hyperlipidemia 96640362 Active 2022 Amlika Shana null, PA - [facility] 3 13:50:33 Problem Notes None recorded. Medical Equipment None Reported. Allergies Allergen ID Allergen Name Allergen Category Reaction Reaction Severity Criticality Documentation Date Start Date Code Code System Note Provider Name and Address Organization Details Recorded Time 156569 Medicinal product containin g penicilli n and acting as antibacte rial agent (product) medicatio n anaphylax is Not available high 05/18/2022 67408 05 SNOMED Malika Alma null, PA - [facility] 3 13:49:54 [...] Last Updated DateTime 172.72 cm 31.9 kg/m2 62966.4 g 95 % 95 % 97 /min [...] Diagnosis/Indication Diagnosis SNOMED-CT Code Diagnosis ICD10 Code [id number] [address] [place] [address] 05/04/2019 10:15:48 05/04/2019 11:04:20 [id number] [address] [place] [address] 08/22/2017 10:46:43 08/22/2017 11:28:26 [id number] [address] [place] [address] 11/06/2019 08:12:57 11/06/2019 08:47:49 [id number] [address] [facility] [place] [address] 09/10/2018 10:01:20 09/10/2018 11:14:04 [id number] [address] [facility] [place] [place] [address] 11/07/2019 08:20:04 11/07/2019 10:41:03 [id number] [address] [facility] [place] [place] [address] 03/02/2020 09:28:03 03/02/2020 11:43:55 [id number] [address] [facility] [place] [place] [address] 11/04/2019 08:03:33 11/04/2019 09:40:15 [id number] Donavan Hankins DO [address] [facility] [place] [place] [address] 05/18/2022 13:41:02 05/18/2022 14:28:46 Laceration of left hand [id number] 4313226 S61.412A Health Concerns Section Related Observation LastModified by Organization Detai ls LastModified Time None Recorded Concern Status LastModified by Organization Details LastModified Time None Recorded Advance Directives Directive None Recorded Payers Encounter Date Sequence Insurance Name Policy Number Policy Multani Covered Member ID Multani Member ID Guarantor Name 11/04/2019 1 [place] [employer] Pablito Gipson Adielcedric [id number] Edalyssa Everett 11/04/2019 2 [place] [id number] Pablito Everett [id number] Edalyssa Everett 11/06/2019 1 [place] [employer] Pablito Everett [id number] Edalyssa Everett 11/06/2019 2 [place] [id number] Pablito Everett [id number] Pablito Everett 11/07/2019 1 [place] [employer]ERNMENT [place] Edward P Marguerite [id number] 5 Edward P Adielton 11/07/2019 2 [place] [id number] Edward P Adielton [id number] Edward P Adielton 03/02/2020 1 [place] B[place] [facility] G[facility] Edward P Marguerite [id number] Edward P Adielton 03/02/2020 2 [place] [id number] Edward P Adielton [id number] Edward P Adielton 05/18/2022 1 [place] Edalyssa Everett [id number] 5 Edward P Halton 05/18/2022 2 [place] [id number] Edalyssa Everett [id number] Edward P Marguerite Notes Date Note Type Note Provider Name and Address Organization Details Recorded Time 05/18/2022 text/html UC Wound/LacerationRep orted bypatient.Notes:76 yo malescratched by his house malik plavix and eliquisstill bleedingtried band aids w/o improvementno f/c/n/vminimal pain no CPno SOBno Hano dizzinessno f/c/n/v Donavan Hankins, DO [address] [place], [address], [place] - [facility] 05/18/2022 14:30:26
--- OUTSIDE RECORDS SUMMARY | 2024-04-24 10:11 | XMS_ITS | Patient Health Record ---
Author Organization [facility] Address [address] [place] [address] Care Team Providers Care Loftsman/Woman Name Role Phone Oswaldo Delgado MD Primary Care Provider Ever Colmenares [phone] ALLERGIES Allergen (clinical drug ingredient) Drug/Non Drug [...] W/U Status Risk SNOMED Code Notes Problem [facility] current use of anticoagulant (Z79.01) Active confirmed 249938384 Problem Encounter for screening for malignant neoplasm of colon (Z12.11) Active confirmed 133507081 Problem Diverticulosis of colon (K57.30) Active confirmed Diverticulosi s of colon (200922901) Problem Esophageal dysphagia (R13.19) Active confirmed 13172687 PLAN OF TREATMENT Pending Test Test Name Order Date XR BARIUM SWALLOW-ESOPHAGUS 05/23/2022 Future Test Test Name Order Date COLONOSCOPY 04/27/2021 Insurance Providers Payer Name Payer Address Payer Phone Subscriber Number Group Number Insured Name Patient Relationship to Insured Coverage Start Date Coverage End Date MEDICARE OF [place] [address] [place] [address] [id number] FAISAL ARELLANO Self - patient is the insured [employer] ATTN CLAIMS [address] [place] [address] [id number] FAISAL ARELLANO Self - patient is the insured MEDICAL (GENERAL) HISTORY Medical History History ICD Code Ascending aortic aneurysm COPD Coronary artery disease--OR and 2 stents in 2019-Dr. Jean-Baptiste Osteoporosis Psoriasis - on humira pulmonary nodule Renal stones Thyroid nodule Vitamin D deficiency Wedge compression fracture of T9 vertebr a Hypertension Afib Denies DM,CVA,renal disease Negative screening colonoscopy in 2007 Colonoscopy 05/2020 with a small tubular adenoma removed Surgical History Surgery Date(Month/Year) Appendectomy Tonsillectomy Lung biopsy 11/22/2016 Thyroid-benign
[2024-04-24 13:40] LABS: Anion Gap 11 (12-20); Blood Urea Nitrogen 22 mg/dL (9-16); Calcium 8.5 mg/dL (8.4-10.2); Carbon Dioxide 26 mmol/L (22-29); Chloride 106 mmol/L (96-108); Estimated Glomerular Filt Rate > 60; Glucose Random 131 mg/dL (60-115); Potassium 3.7 mmol/L (3.3-5.1); Sodium 139 mmol/L (135-145)
== END 2024-04-24 09:32 | disposition home or self-care (01) ==
LOC: HO.HMGCLDS 09:31
PROVIDERS: PCP Internal Medicine; Visit Provider Internal Medicine
DX: I10 Essential (primary) hypertension (principal)
CPT/HCPCS: 36415; 80048

== ENCOUNTER 2024-04-24 13:00 | Emergency (ER) | payer MEDICARE, SELFPAY ==
[2024-02-07 11:25] VITALS: BMI 32.0
--- NOTE | 2024-04-24 13:22 | ED_ITS ---
HPI - General Adult General Chief complaint: Wound/Laceration Stated complaint: Leg lac Time Seen by Provider: 04/24/24 14:23 Source: patient Mode of arrival: ambulatory Limitations: no limitations History of Present Illness ED Provider: Herminio Teague PA-C HPI narrative: 78 yo male with history of afib on eliquis, AAA s/p repair, CAD s/p stent, COPD, HTN, CHF who presents for evaluation of a laceration on his left yost sustained at 9am today when he accidentally hit it on the car door. bleeding through 3 different dressings so he came for evaluation. no other injuries. pain is mild-moderate, worse with palpation. steady gait. unknown tdap. MD complaint: LLE lac Onset (ago): hour(s) Location: left and lower extremity Radiation: non-radiation Severity: moderate Severity scale (1-10): 5 Quality: aching Pain Consistency: intermittent Relieving factors: rest Exacerbating factors: other (palpation, dressing change) Associated symptoms: denies other symptoms Treatments prior to arrival: other (dressing) Related Data Home Medications ?Medication ?Instructions ?Recorded ?Confirmed adalimumab 40 mg/0.4 mL 40 mg subcut Q2W 10/10/22 04/16/24 subcutaneous pen kit (Humira(CF) Pen) clopidogrel 75 mg tablet 75 mg PO DAILY 04/16/24 digoxin 125 mcg (0.125 mg) tablet 125 mcg PO .COMPLEX 04/16/24 Previous Rx's ?Medication ?Instructions ?Recorded OXYGEN 2 L NC keep sats > 90 #1 ea 02/12/22 PORTABLE OXYGEN TANK #1 ea 02/22/22 compress.stocking,knee,reg,med #2 ea 04/10/22 cyanocobalamin (vitamin B-12) 1,000 mcg PO DAILY #90 tabs 05/26/23 1,000 mcg tablet (Vitamin B-12) cholecalciferol (vitamin D3) 50 50 mcg PO DAILY #90 caps 06/07/23 mcg (2,000 unit) capsule atorvastatin 80 mg tablet 80 mg PO BEDTIME #90 tabs 10/05/23 budesonide 160 mcg-glycopyr 9 2 inh inhalation BID #10.7 grams 10/29/23 mcg-formot 4.8 mcg/actuation HFA inhaler (Breztri Aerosphere) diltiazem HCl 180 mg 180 mg PO DAILY #90 caps 12/03/23 capsule,extended release 24 hr, controlled metoprolol tartrate 25 mg tablet 75 mg (3 x 25 mg) PO BID 30 days 12/26/23 #180 tabs famotidine 20 mg tablet 20 mg PO BID 90 days #180 tabs 12/31/23 ferrous sulfate 325 mg (65 mg 325 mg PO DAILY 90 days #90 tabs 12/31/23 iron) tablet,delayed release apixaban 5 mg tablet (Eliquis) 5 mg PO BID 90 days #180 tabs 01/03/24 tamsulosin 0.4 mg capsule 0.8 mg (2 x 0.4 mg) PO DAILY #60 01/28/24 caps furosemide 20 mg tablet (Lasix) 20 mg PO .COMPLEX #120 tabs 03/16/24 levothyroxine 50 mcg tablet 50 mcg PO DAILY@0600 #90 tabs 03/24/24 potassium chloride 10 mEq 10 meq PO BID #60 tabs 04/16/24 tablet,extended release (Klor-Con) Allergies Allergy/AdvReac Type Severity Reaction Status Date / Time Penicillins Allergy Severe Anaphylaxis Verified 04/24/24 14:08 hydrochlorothiazide Allergy Unknown Unknown Verified 04/24/24 14:08 lisinopril Allergy Unknown Unknown Verified 04/24/24 14:08 regadenoson [From Lexiscan] AdvReac Bradycardic Verified 04/24/24 14:08 [facility] Past Medical History Medical History (Updated 04/24/24 @ 14:54 by RAYNE Marie) Atrial fibrillation with rapid ventricular response Supplemental oxygen dependent ILD (interstitial lung disease) COPD (chronic obstructive pulmonary disease) Tubular adenoma of colon (~2021) Postoperative hypothyroidism Obesity (BMI 30-39.9) Atrial fibrillation Chest discomfort Bronchitis Hemoptysis HOLLOWAY (dyspnea on exertion) Abnormal SPEP Multinodular thyroid Swelling of left lower extremity Pulmonary nodules/lesions, multiple Ground glass opacity present on imaging of lung Wedge compression fracture of T9 vertebra (~2018) Coronary artery disease Hypertension Right renal stone Thyroid nodule Vitamin D deficiency Ascending aorta dilatation Obesity (BMI 30-39.9) Psoriasis Hypercholesterolemia Former smoker Stable angina Surgical History Status post AAA (abdominal aortic aneurysm) repair Hx of bilateral cataract extraction (~2022) History of partial thyroidectomy (~2020) History of heart artery stent (~2019) History of colonoscopy History of cardioversion (~2020) History of appendectomy History of tonsillectomy History of lung biopsy (~2016) Family History Family History Father Heart disease Mother Throat cancer Paternal Grandfather Heart disease Social History Social History Household Members: Spouse Housing: House Are you a primary youth care worker to a significant other at home: No Do you presently have visiting nurse or other home services: No Alcohol intake: former Year quit: 2014 Patient Tobacco Use Status: Former Tobacco user Tobacco use type: Cigarette Years Smoked: 50 e-Cigarette/Vaping Use: Former Use Second Hand Smoke Exposure: No Advance Directives: Yes Advance Directives Information Provided: Yes Advance Directives on File: No Advance Directives Date on File: 09/21/20 Do you have a plan to hurt others: No Plan service: Yes Current occupational status: retired Cognitive needs: No Hearing needs: No Vision needs: Yes Physical Exam ED Vital Signs: Vital Signs - 24 hr 04/24/24 14:06 Temperature 97.9 F Pulse Rate 102 H Respiratory Rate 20 Blood Pressure 135/54 L Pulse Oximetry 95 Oxygen Delivery Method Room Air BMI result Body Mass Index 29.7 Appearance: Alert. Oriented X3. No acute distress. HEENT: normal inspection CVS: Normal heart rate and rhythm. Pulses normal. Respiratory: No respiratory distress. Skin: Skin warm and dry. Normal skin color. Normal skin turgor. No rashes. Extremities: left lower leg with an irregular shaped skin tear over the middle yost with mild oozing. approx 3.5 cm. no visible bone or adipose tissue. no calf swelling. NV intact distally. Neuro: Oriented X 3. No motor deficit. No sensory deficit. steady gait Course Course Course Narrative: This is a rapid medical exam performed by Louisa Cason NP: Additional HPI, ROS, PE not included below will be deferred to primary provider. Patient is a 78-year-old male on Eliquis presenting with complaint of skin tear to left yost. States he hit his leg with his car door while wearing jeans. Unsure last Tdap. Plan: Tdap ordered Medications Administered Discontinued Medications Generic Name Dose Route Start Last Admin Trade Name Jacobo PRN Reason Stop Dose Admin Diphtheria/Tetanus/Acell Pertussis 0.5 ml 04/24/24 14:07 04/24/24 14:34 Diphth,Pertus(Acell),Tet Adult 0.5 Ml Syringe IM 04/24/24 14:08 0.5 ml .ONCE ONE Administration Procedures Laceration Laceration 1: Site: lower extremity Side (If applicable): left Size (cm): 3.5 Description: flap and irregular Depth: simple, single layer Pre-repair: irrigated extensively Skin layer closed with: other (steri-strips and skin glue) Medical Decision Making Medical Decision Making MDM Narrative: 78 yo male with history of afib on eliquis presenting for evaluation of a laceration to his left lower leg sustained on his car door at 9am today. has changed the dressing x3 with mild oozing that persists. wound was cleansed w/ normal saline. it is superficial. wound edges able to be reapproximated with steri strips. exofin skin glue used to adhere edges. DSD applied. no bleeding through the dressing after 15 min observation tdap given patient counseled on wound care and supplied dressing change supplies for tomorrow. stable for d/c home. encouraged outpatient follow up to ensure adequate healing. Differential Diagnosis Differential Diagnoses: The differential diagnosis associated with the presentation includes External Record Review External record reviewed: Outpatient record, Prior outpatient labs and Prior outpatient radiology Tests considered The following testing was considered but not selected: xr tib/fib considered, low suspicion for fracture Prescription Management I considered prescription management with: Pain Medication and Antibiotic Critical Care Time Critical Care Time Critical Care Time: No Discharge Plan Discharge Clinical Impression: Laceration of lower extremity Qualifiers: Encounter type: initial encounter Laterality: left Qualified Code(s): S81.812A - Laceration without foreign body, left lower leg, initial encounter Patient Disposition: Home, Self-Care Instructions: Laceration (DC) Additional Instructions: steri strips and skin glue were used to close the wound today these will come off on their own, usually within a week. do not peel them off. when the edges fray, trim them, do not pull them off change the dressing once per day apply the nonstick pad 1st and then wrap in either gauze wrap or the chilango wrap if you develop bleeding apply pressure with gauze for 15 minutes If you develop new or worsening symptoms call 911 or come back to the ER for further evaluation. Prescriptions: No Action (DME) OXYGEN 2 L NC keep sats > 90 See Rx Instructions .Route .MEDSUPPLY Qty: 1 0RF Rx Instructions: As directed (DME) PORTABLE OXYGEN TANK See Rx Instructions .Route .MEDSUPPLY Qty: 1 0RF Rx Instructions: As directed cyanocobalamin (vitamin B-12) [Vitamin B-12] 1,000 mcg tablet 1,000 mcg PO DAILY Qty: 90 3RF cholecalciferol (vitamin D3) 50 mcg (2,000 unit) capsule 50 mcg PO DAILY Qty: 90 3RF atorvastatin 80 mg tablet 80 mg PO BEDTIME Qty: 90 2RF diltiazem HCl 180 mg capsule,ext.rel 24h degradable 180 mg PO DAILY Qty: 90 3RF metoprolol tartrate 25 mg tablet 75 mg PO BID 30 Days Qty: 180 5RF Rx Instructions: Three tablets twice daily Eliquis 5 mg tablet 5 mg PO BID 90 Days Qty: 180 3RF tamsulosin 0.4 mg capsule 0.8 mg PO DAILY Qty: 60 3RF levothyroxine 50 mcg tablet 50 mcg PO DAILY@0600 Qty: 90 2RF (DME) compress.stocking,knee,reg,med Misc See Rx Instructions .Route Qty: 2 0RF Rx Instructions: As directed 20-30 mm HG ferrous sulfate 325 mg (65 mg iron) tablet,delayed release (DR/EC) 325 mg PO DAILY 90 Days Qty: 90 1RF famotidine 20 mg tablet 20 mg PO BID 90 Days Qty: 180 1RF Humira(CF) Pen 40 mg/0.4 mL pen injector kit 40 mg subcut Q2W Rx Instructions: Every 2 weeks on SA or TOLBERT clopidogrel 75 mg tablet 75 mg PO DAILY Rx Instructions: Take 4 tablets today and start taking 1 tablet daily from tomorrow. 02/2024 digoxin 125 mcg (0.125 mg) tablet 125 mcg PO .COMPLEX Rx Instructions: 125 mcg orally Three times a week MWF; potassium chloride [Klor-Con 10] 10 mEq tablet extended release 10 meq PO BID Qty: 60 1RF Breztri Aerosphere 160-9-4.8 mcg/actuation HFA aerosol inhaler 2 inh inhalation BID Qty: 10.7 6RF furosemide [Lasix] 20 mg tablet 20 mg PO .COMPLEX Qty: 120 5RF Rx Instructions: 20 mg orally Take 2 tablets in morning, 1 tablet in the afternoon.; Print Language: Indian
[2024-04-24 14:06] VITALS: BP 135/54; PULSE 102; RESP 20; TEMP 36.6; O2SAT 95; BMI 29.7
[2024-04-24] MEDS: Diphth,Pertus(ACell),Tet Adult 0.5 ML SYRINGE IM (14:34)
[2024-04-24 15:22] VITALS: BP 148/81; PULSE 98; RESP 16; TEMP 36.6; O2SAT 93
--- NOTE | 2024-04-24 15:22 | PC.NURSE ---
patient had steri strips/glue applied and dressing applied. pt discharging to home.
== END 2024-04-24 15:23 | disposition home or self-care (01) ==
PROVIDERS: Emergency Provider Emergency Medicine; PCP Internal Medicine
DX: S81.812A Laceration without foreign body, left lower leg, initial encounter (principal); W22.8XXA Striking against or struck by other objects, initial encounter; Y93.89 Activity, other specified; Y92.810 Car as the place of occurrence of the external cause; Y99.9 Unspecified external cause status; Z23 Encounter for immunization
CPT/HCPCS: 12002; 36415; 80048; 90471; 90715; 99282; 99284

== ENCOUNTER 2024-05-06 08:24 | Emergency (ER) | payer MEDICARE, SELFPAY ==
[2024-02-07 11:25] VITALS: BMI 32.0
--- NOTE | ~2024-05-06 | XR_ITS ---
EXAMINATION: XR CHEST 2 VIEWS HISTORY: low bp COMPARISON: Comparison is made with the prior examination dated 02/27/2024. FINDINGS: PA and lateral views of the chest are submitted. Again seen are increased interstitial markings in the right lung with associated pleural thickening. No new focal airspace opacity is identified. There is no pleural effusion, pneumothorax, or pulmonary vascular congestion. The heart is normal in size. There is degenerative disc disease of the spine. XR/XR chest 2V IMPRESSION: Chronic changes in the right lung. No acute cardiopulmonary abnormality. Electronically signed by: Ever Bryant MD 05/06/2024 10:08 AM [facility]
[2024-05-06 08:28] VITALS: BP 116/70; PULSE 70; RESP 18; TEMP 36.3; O2SAT 97; BMI 28.6
--- OUTSIDE RECORDS SUMMARY | 2024-05-06 08:38 | XMS_ITS | Data Portability ---
Author Organization [facility], [address] Address [address] [place] [address] Assessment No assessment recorded. Plan of Treatment [...] By Organization Details Last Modified Time 05/18/2022 [id number] cuts: care instructions [email or web address] Not available 05/18/2022 [...] Address Organization Details Recorded Time Atrial fibrillation 74024418 Active 2022 Malika Shana null, [place] - [facility] 3 13:50:16 Chronic obstructive pulmonary disease 52846864 Active 2022 Malika [place] null, [place] - [facility] 3 13:50:20 Hypertensive disorder 02031531 Active 2022 Malika Shana null, PA - [facility] 3 13:50:27 Hyperlipidemia 92392150 Active 2022 Malika Shana null, PA - [facility] 3 13:50:33 Problem Notes None recorded. Medical Equipment None Reported. Allergies Allergen ID Allergen Name Allergen Category Reaction Reaction Severity Criticality Documentation Date Start Date Code Code System Note Provider Name and Address Organization Details Recorded Time 592346 Medicinal product containin g penicilli n and acting as antibacte rial agent (product) medicatio n anaphylax is Not available high 05/18/2022 70035 05 SNOMED Malika [place] null, PA - [facility] 3 13:49:54 [...] Last Updated DateTime 172.72 cm 31.9 kg/m2 23544.4 g 95 % 95 % 97 /min [...] Diagnosis/Indication Diagnosis SNOMED-CT Code Diagnosis ICD10 Code Diagnosis Note [id number] [address] [place] [address] 05/04/2019 10:15:48 05/04/2019 11:04:20 [id number] [address] [place] [address] 08/22/2017 10:46:43 08/22/2017 11:28:26 [id number] [address] Kovacs [facility] [place] [address] 11/06/2019 08:12:57 11/06/2019 08:47:49 [id number] Ignacio Kovacs [facility] [place] [address] 09/10/2018 10:01:20 09/10/2018 11:14:04 [id number] Ignacio Kovacs [facility] [address] 11/07/2019 08:20:04 11/07/2019 10:41:03 [id number] Ignacio Kovacs [facility] [place] [address] 03/02/2020 09:28:03 03/02/2020 11:43:55 [id number] Ignacio Kovacs [facility] [address] 11/04/2019 08:03:33 11/04/2019 09:40:15 [id number] Donavan Hankins, [address] [facility] [place] [address] 05/18/2022 13:41:02 05/18/2022 14:28:46 Laceration of left hand [id number] S61.412A following oral consent wound was cleaned with hibiclens and benadyneas eptic and repaired in usual manner with with steri strips and compressio n bandage keep bandage on x 24-48 hwatch for s/sx of infectionp lease follow up DONOVAN for signs of infection - redness, pain, swelling, fever etcplease call your pcp and ask if you have an up to date tetanus shot and follow up woth your PCP in a few days to check the wound Discussed concerning red flags with patient and reasons to follow up in the Emergency Department urgently.P atient advised to follow up as needed for worsening symptoms or no improvemen t. Health Concerns Section Related Observation LastModified by Organization Detai ls LastModified Time None Recorded Concern Status LastModified by Organization Details LastModified Time None Recorded Advance Directives Directive None Recorded Payers Encounter Date Sequence Insurance Name Policy Number Policy Multani Covered Member ID Multani Member ID Guarantor Name 11/04/2019 1 [place] [employer] Edward P Halton [id number] Edward P Halton 11/04/2019 2 [place] [id number] Edward P Halton [id number] Edward P Halton 11/06/2019 1 [place] [employer] Edward P Halton [id number] Edward P Halton 11/06/2019 2 [place] [id number] Edward P Halton [id number] Edward P Halton 11/07/2019 1 [place] [employer] Edward P Halton [id number] Edward P Halton 11/07/2019 2 [place] [id number] Edward P Halton [id number] Edward P Halton 03/02/2020 1 [place] [employer] [place] Edward P Halton [id number] Edward P Halton 03/02/2020 2 [place] [id number] Edward P Halton [id number] Edward P Halton 05/18/2022 1 [place] Edward P Halton [id number] Edward P Halton 05/18/2022 2 [place] [id number] Edward P Halton [id number] Edward P Halton Notes Date Note Type Note Provider Name and Address Organization Details Recorded Time 05/18/2022 text/html UC Wound/LacerationRep orted bypatient.Notes:76 yo malescratched by his house malik plavix and eliquisstill bleedingtried band aids w/o improvementno f/c/n/vminimal pain no CPno SOBno Hano dizzinessno f/c/n/v Donavan Hankins, DO [address] [place], [address], [place] - [facility] 05/18/2022 14:30:26
--- NOTE | 2024-05-06 08:39 | ECG_ITS ---
Test Reason : LOW BP Blood Pressure : */* mmHG Vent. Rate : 57 BPM Atrial Rate : * BPM P-R Int : * ms QRS Dur : 90 ms QT Int : 412 ms P-R-T Axes : * 6 31 degrees QTcB Int : 401 ms Atrial fibrillation with slow ventricular response Abnormal ECG When compared with ECG of 29-Feb-2024 09:41, Vent. rate has decreased by 74 bpm Criteria for Anterior infarct are no longer Present ST no longer depressed in Inferior leads ST no longer depressed in Lateral leads T wave inversion no longer evident in Lateral leads Referred By: Leodan Oshea Electronically Signed By: Ja Jean-Baptiste
--- NOTE | 2024-05-06 08:39 | ED.GENADULT ---
HPI - General Adult General Chief complaint: General Medical Stated complaint: Low Blood Pressure from Cardiac Rehab Time Seen by Provider: 05/06/24 08:28 Source: patient Mode of arrival: ambulatory Limitations: no limitations History of Present Illness HPI narrative: 78-year-old male past medical history significant for history of afib on eliquis, AAA s/p repair, CAD s/p stent, COPD, HTN, CHF most recent stent February presents emergency department complaining of low blood pressure. Patient was going to cardiac rehab this is his 3rd day and they entered his blood pressure to be low he had already been doing the arm bike when they took his blood pressure. He states he has no symptoms he has been eating and drinking normally to give him some fluids and his blood pressure improved. Patient denies fevers chills nausea vomiting or diarrhea. Related Data Home Medications ?Medication ?Instructions ?Recorded ?Confirmed adalimumab 40 mg/0.4 mL 40 mg subcut Q2W 10/10/22 04/16/24 subcutaneous pen kit (Humira(CF) Pen) clopidogrel 75 mg tablet 75 mg PO DAILY 04/16/24 digoxin 125 mcg (0.125 mg) tablet 125 mcg PO .COMPLEX 04/16/24 Previous Rx's ?Medication ?Instructions ?Recorded OXYGEN 2 L NC keep sats > 90 #1 ea 02/12/22 PORTABLE OXYGEN TANK #1 ea 02/22/22 compress.stocking,knee,reg,med #2 ea 04/10/22 cyanocobalamin (vitamin B-12) 1,000 mcg PO DAILY #90 tabs 05/26/23 1,000 mcg tablet (Vitamin B-12) cholecalciferol (vitamin D3) 50 50 mcg PO DAILY #90 caps 06/07/23 mcg (2,000 unit) capsule atorvastatin 80 mg tablet 80 mg PO BEDTIME #90 tabs 10/05/23 budesonide 160 mcg-glycopyr 9 2 inh inhalation BID #10.7 grams 10/29/23 mcg-formot 4.8 mcg/actuation HFA inhaler (Breztri Aerosphere) diltiazem HCl 180 mg 180 mg PO DAILY #90 caps 12/03/23 capsule,extended release 24 hr, controlled metoprolol tartrate 25 mg tablet 75 mg (3 x 25 mg) PO BID 30 days 12/26/23 #180 tabs famotidine 20 mg tablet 20 mg PO BID 90 days #180 tabs 12/31/23 ferrous sulfate 325 mg (65 mg 325 mg PO DAILY 90 days #90 tabs 12/31/23 iron) tablet,delayed release apixaban 5 mg tablet (Eliquis) 5 mg PO BID 90 days #180 tabs 01/03/24 furosemide 20 mg tablet (Lasix) 20 mg PO .COMPLEX #120 tabs 03/16/24 levothyroxine 50 mcg tablet 50 mcg PO DAILY@0600 #90 tabs 03/24/24 potassium chloride 10 mEq 10 meq PO BID #60 tabs 04/16/24 tablet,extended release (Klor-Con) tamsulosin 0.4 mg capsule 0.8 mg (2 x 0.4 mg) PO DAILY #60 04/29/24 caps Allergies Allergy/AdvReac Type Severity Reaction Status Date / Time Penicillins Allergy Severe Anaphylaxis Verified 05/06/24 08:31 hydrochlorothiazide Allergy Unknown Unknown Verified 04/24/24 14:08 lisinopril Allergy Unknown Unknown Verified 04/24/24 14:08 regadenoson [From Lexiscan] AdvReac Bradycardic Verified 04/24/24 14:08 Review of Systems Review of Systems: Review of systems: General: Patient denies any fever chills recent illness or falls Musculoskeletal: Denies back pain or body aches or other injuries HEENT: denies headache, runny nose, ear pain Respiratory: denies shortness of breath, cough Cardiovascular: no chest pain or palpitations : denies dysuria, frequency Abdomen: no nausea vomiting denies abdominal pain Extremities: no swelling, no pain Skin: no diaphoresis Yes all other systems are reviewed and are negative FORMERLY [facility], [facility]–1983 Past Medical History Medical History (Updated 05/06/24 @ 10:04 by Leodan Oshea DO) Atrial fibrillation with rapid ventricular response Supplemental oxygen dependent ILD (interstitial lung disease) COPD (chronic obstructive pulmonary disease) Tubular adenoma of colon (~2021) Postoperative hypothyroidism Obesity (BMI 30-39.9) Atrial fibrillation Chest discomfort Bronchitis Hemoptysis HOLLOWAY (dyspnea on exertion) Abnormal SPEP Multinodular thyroid Swelling of left lower extremity Pulmonary nodules/lesions, multiple Ground glass opacity present on imaging of lung Wedge compression fracture of T9 vertebra (~2018) Coronary artery disease Hypertension Right renal stone Thyroid nodule Vitamin D deficiency Ascending aorta dilatation Obesity (BMI 30-39.9) Psoriasis Hypercholesterolemia Former smoker Stable angina Surgical History Status post AAA (abdominal aortic aneurysm) repair Hx of bilateral cataract extraction (~2022) History of partial thyroidectomy (~2020) History of heart artery stent (~2019) History of colonoscopy History of cardioversion (~2020) History of appendectomy History of tonsillectomy History of lung biopsy (~2016) Family History Family History Father Heart disease Mother Throat cancer Paternal Grandfather Heart disease Social History Social History Household Members: Spouse Housing: House Are you a primary child care centre director to a significant other at home: No Do you presently have visiting nurse or other home services: No Alcohol intake: former Year quit: 2014 Patient Tobacco Use Status: Former Tobacco user Tobacco use type: Cigarette Years Smoked: 50 e-Cigarette/Vaping Use: Former Use Second Hand Smoke Exposure: No Advance Directives: No Advance Directives Information Provided: Yes Advance Directives Date on File: 09/21/20 service: Yes Current occupational status: retired Cognitive needs: No Hearing needs: No Vision needs: Yes Physical Exam ED Vital Signs: Vital Signs - 24 hr 05/06/24 08:28 Temperature 97.4 F Pulse Rate 70 Respiratory Rate 18 Blood Pressure 116/70 Pulse Oximetry 97 Oxygen Delivery Method Nasal Cannula BMI result Body Mass Index 28.6 General: Well-appearing well-nourished in no signs of distress HEENT: Normocephalic atraumatic Neck: No signs of JVD, no masses no tenderness or lymphadenopathy Cardiovascular: Regular rate and rhythm Respiratory: Clear to auscultation bilaterally Abdomen: Soft nontender no masses Extremities: Normal pedal pulses no signs of edema Skin: Dry warm no rashes Back: No tenderness full ROM Course Course Course Narrative: Patient's blood pressure has been completely normal the time of time here patient did get an x-ray and labs withdrawal unremarkable I will discharge the patient home at this time. Medical Decision Making Medical Decision Making MDM Narrative: patient has no symptoms right now he had a little blood pressure likely related to not having enough for breakfast I will check some general labs the patient's blood pressure remained stable I do feel comfortable discharging the patient home. Differential Diagnosis Differential Diagnoses: The differential diagnosis associated with the presentation includes Hypertension dehydration electrolyte abnormality CHF shortness breath pneumonia Admission/Observation Consideration of admission/observation: Escalation of care including admission/observation considered Lab Data MDM Lab Attestation statement: I reviewed the patient's lab results. 05/06/24 08:55 05/06/24 08:55 Labs: Lab Results 05/06/24 Range/Units 08:55 WBC 9.7 (4.8-10.8) X10*3/uL RBC 3.07 L (4.60-5.80) X10*6/uL Hgb 10.4 L (14.0-18.0) g/dl Hct 32.3 L (42.0-52.0) % MCV 105.2 H (80.0-98.0) fL MCH 33.9 H (27.0-33.0) pg MCHC 32.2 (31.0-36.0) g/dl RDW 16.7 H (11.0-16.0) % Plt Count 149 L (160-400) X10*3/uL MPV 9.6 (9.4-12.4) fL Immature Gran % (Auto) 1.3 H (0.0-0.4) % Neut % (Auto) 71.8 (45-73) % Lymph % (Auto) 15.5 L (20-40) % [place] % (Auto) 10.5 (2-11) % Eos % (Auto) 0.7 (0-4) % Baso % (Auto) 0.2 (0-2) % Lymph # (Auto) 1.5 (1.2-4.9) X10*3/uL [place] # (Auto) 1.0 (0.1-1.2) X10*3/uL Eos # (Auto) 0.1 (0.0-0.4) X10*3/uL Baso # (Auto) 0.0 (0.0-0.2) X10*3/uL Abs Immat Gran (auto) 0.13 H (0.00-0.03) X10*3/uL Absolute Neuts (auto) 7.0 (2.0-8.3) x10*3/uL Absolute Nucleated RBC 0.000 (0.0-0.012) X10*3/uL Nucleated RBC % (auto) 0.0 (0.0-0.2) /100WBC Sodium 139 (135-145) mmol/L Potassium 3.7 (3.3-5.1) mmol/L Chloride 107 (96-108) mmol/L Carbon Dioxide 27 (22-29) mmol/L Anion Gap 9 L (12-20) BUN 25 H (9-16) mg/dL Creatinine 0.91 (0.5-1.4) mg/dL Estim Creat Clear Calc 73.4 Estimated GFR > 60 Random Glucose 109 (60-115) mg/dL Calcium 8.6 (8.4-10.2) mg/dL Independent Interpretation I performed an independent interpretation of an: EKG and Plain X-Ray Radiology Impression Discussion of test interpretation with radiology: I have reviewed the radiologist's reading. External Record Review External record reviewed: Inpatient record, Office record, Outpatient record and Prior outpatient labs Discharge Plan Discharge Clinical Impression: Encounter for medical screening examination Patient Disposition: Home, Self-Care Instructions: Hypotension (ED) Additional Instructions: You were seen today for low blood pressure. Your blood pressure did normalize and was normal here we did get blood work which was all normal. Please call follow up with your doctor if you have any other concerns please return to the ER Prescriptions: No Action (DME) OXYGEN 2 L NC keep sats > 90 See Rx Instructions .Route .MEDSUPPLY Qty: 1 0RF Rx Instructions: As directed (DME) PORTABLE OXYGEN TANK See Rx Instructions .Route .MEDSUPPLY Qty: 1 0RF Rx Instructions: As directed cyanocobalamin (vitamin B-12) [Vitamin B-12] 1,000 mcg tablet 1,000 mcg PO DAILY Qty: 90 3RF cholecalciferol (vitamin D3) 50 mcg (2,000 unit) capsule 50 mcg PO DAILY Qty: 90 3RF atorvastatin 80 mg tablet 80 mg PO BEDTIME Qty: 90 2RF diltiazem HCl 180 mg capsule,ext.rel 24h degradable 180 mg PO DAILY Qty: 90 3RF metoprolol tartrate 25 mg tablet 75 mg PO BID 30 Days Qty: 180 5RF Rx Instructions: Three tablets twice daily Eliquis 5 mg tablet 5 mg PO BID 90 Days Qty: 180 3RF levothyroxine 50 mcg tablet 50 mcg PO DAILY@0600 Qty: 90 2RF tamsulosin 0.4 mg capsule 0.8 mg PO DAILY Qty: 60 3RF (DME) compress.stocking,knee,reg,med Misc See Rx Instructions .Route Qty: 2 0RF Rx Instructions: As directed 20-30 mm HG ferrous sulfate 325 mg (65 mg iron) tablet,delayed release (DR/EC) 325 mg PO DAILY 90 Days Qty: 90 1RF famotidine 20 mg tablet 20 mg PO BID 90 Days Qty: 180 1RF Humira(CF) Pen 40 mg/0.4 mL pen injector kit 40 mg subcut Q2W Rx Instructions: Every 2 weeks on SA or TOLBERT clopidogrel 75 mg tablet 75 mg PO DAILY Rx Instructions: Take 4 tablets today and start taking 1 tablet daily from tomorrow. 02/2024 digoxin 125 mcg (0.125 mg) tablet 125 mcg PO .COMPLEX Rx Instructions: 125 mcg orally Three times a week MWF; potassium chloride [Klor-Con 10] 10 mEq tablet extended release 10 meq PO BID Qty: 60 1RF Breztri Aerosphere 160-9-4.8 mcg/actuation HFA aerosol inhaler 2 inh inhalation BID Qty: 10.7 6RF furosemide [Lasix] 20 mg tablet 20 mg PO .COMPLEX Qty: 120 5RF Rx Instructions: 20 mg orally Take 2 tablets in morning, 1 tablet in the afternoon.; Print Language: [place]
[2024-05-06 08:58] LABS: MANUAL DIFF FLAG NO
[2024-05-06 09:05] LABS: Basophils Percent Auto 0.2 % (0-2); Eosinophils Absolute Auto 0.1 X10*3/uL (0.0-0.4); Eosinophils Percent Auto 0.7 % (0-4); Hematocrit 32.3 % (42.0-52.0); Hemoglobin 10.4 g/dl (14.0-18.0); Imm Gran Abs Auto 0.13 X10*3/uL (0.00-0.03); Imm Gran Pct Auto 1.3 % (0.0-0.4); Lymphocytes Absolute Auto 1.5 X10*3/uL (1.2-4.9); Lymphocytes Percent Auto 15.5 % (20-40); Mean Corpuscular HGB Conc 32.2 g/dl (31.0-36.0); Mean Corpuscular Hemoglobin 33.9 pg (27.0-33.0); Mean Corpuscular Volume 105.2 fL (80.0-98.0); Mean Platelet Volume 9.6 fL (9.4-12.4); Monocytes Percent Auto 10.5 % (2-11); Neutrophils Percent Auto 71.8 % (45-73); Platelet Count 149 X10*3/uL (160-400); Red Blood Count 3.07 X10*6/uL (4.60-5.80); Red Cell Distribution Width 16.7 % (11.0-16.0); White Blood Count 9.7 X10*3/uL (4.8-10.8)
[2024-05-06 09:13] LABS: Anion Gap 9 (12-20); Blood Urea Nitrogen 25 mg/dL (9-16); Calcium 8.6 mg/dL (8.4-10.2); Carbon Dioxide 27 mmol/L (22-29); Chloride 107 mmol/L (96-108); Creatinine Clr Calc Pharmacy 73.4; Estimated Glomerular Filt Rate > 60; Glucose Random 109 mg/dL (60-115); Potassium 3.7 mmol/L (3.3-5.1); Sodium 139 mmol/L (135-145)
[2024-05-06 10:14] VITALS: BP 109/64; PULSE 69; RESP 18; TEMP 36.4; O2SAT 97
== END 2024-05-06 10:22 | disposition home or self-care (01) ==
PROVIDERS: Emergency Provider Student in an Organized Health Care Education/Training Program; PCP Internal Medicine
DX: I48.91 Unspecified atrial fibrillation (principal); R94.31 Abnormal electrocardiogram [ECG] [EKG]; I25.10 Atherosclerotic heart disease of native coronary artery without angina pectoris; Z79.899 Other long term (current) drug therapy; Z79.01 Long term (current) use of anticoagulants
CPT/HCPCS: 36415; 71046; 80048; 85025; 93005; 99283

== ENCOUNTER → 2024-05-06 08:39 | Outpatient (BNV) | payer MEDICARE, SELFPAY ==
[2024-02-07 11:25] VITALS: BMI 32.0
== END ==
PROVIDERS: Emergency Provider Student in an Organized Health Care Education/Training Program; PCP Internal Medicine; Visit Provider Radiology Diagnostic Radiology
DX: R03.1 Nonspecific low blood-pressure reading (principal)
CPT/HCPCS: 71046

== ENCOUNTER → 2024-05-06 08:39 | Outpatient (BNV) | payer MEDICARE, SELFPAY ==
[2024-02-07 11:25] VITALS: BMI 32.0
== END ==
PROVIDERS: Emergency Provider Student in an Organized Health Care Education/Training Program; PCP Internal Medicine; Visit Provider Internal Medicine Cardiovascular Disease
DX: I48.19 Other persistent atrial fibrillation (principal)
CPT/HCPCS: 93010

== ENCOUNTER 2024-05-13 14:21 | Outpatient (AMB) | payer MEDICARE, SELFPAY ==
[2024-02-07 11:25] VITALS: BMI 32.0
--- NOTE | 2024-05-13 14:42 | A.OFFVIS_ITS ---
Vital Signs 05/13/24 14:43 Height 5 ft 8 in Weight 201 lb 15.095 oz BMI 30.7 BP 112/50 L Blood Pressure Location Lt brachial Position Sitting Pulse 94 Pulse Source Pulse Oximeter Intake Visit Reasons: [facility] d/c , low bp Commercial Decorator Required: No Accompanied by: Self / Same As Patient Allergies Penicillins Allergy (Severe, Verified 05/13/24 15:29) Anaphylaxis hydrochlorothiazide Allergy (Unknown, Verified 05/13/24 15:29) Unknown lisinopril Allergy (Unknown, Verified 05/13/24 15:29) Unknown regadenoson [From Lexiscan] Adverse Reaction (Verified 05/13/24 15:29) Bradycardic Medication List - Last Reconciled 05/13/24 by Michael Sellers NP adalimumab (Humira(CF) Pen) 40 mg subcut Q2W apixaban (Eliquis) 5 mg PO BID 90 days atorvastatin 80 mg PO BEDTIME ezopuknopw-awlxchsq-dfdwjvacxt 160-9-4.8 mcg/actuation (Breztri Aerosphere) 2 inhalations inhalation BID cholecalciferol (vitamin D3) 50 mcg PO DAILY clopidogrel 75 mg PO DAILY compress.stocking,knee,reg,med As directed 20-30 mm HG cyanocobalamin (vitamin B-12) (Vitamin B-12) 1,000 mcg PO DAILY digoxin 125 mcg orally Three times a week MWF; diltiazem HCl ER 180 mg PO DAILY famotidine 20 mg PO BID 90 days ferrous sulfate 325 mg PO DAILY 90 days furosemide (Lasix) 20 mg orally Take 2 tablets in morning, 1 tablet in the afternoon.; levothyroxine 50 mcg PO DAILY@0600 metoprolol tartrate 75 mg (3 x 25 mg) PO BID 30 days [OXYGEN 2 L NC keep sats > 90 As directed] [PORTABLE OXYGEN TANK As directed] potassium chloride ER (Klor-Con) 10 mEq PO BID tamsulosin 0.8 mg (2 x 0.4 mg) PO DAILY HPI Comments Details: This is a 78 year old male patient presenting for a follow-up after an ER visit. His medical history includes chronic AFib, COPD requiring supplemental oxygen, hypertension, coronary artery disease s/p RCA PCI, and chronic diastolic heart failure. Previously, the patient was admitted to the hospital for AFib with RVR and diastolic heart failure. He experienced some EKG changes during that time which led him to be transferred to [facility] for cardiac catheterization. He underwent stent placement in the RCA at that time. Patient was recently seen in the ER following a hypotensive episode during a cardiac rehab session. He reported experiencing dizziness and lightheadedness but denied chest pain, shortness of breath, or palpitations. He had no episodes of syncope. The patient notes that his blood pressure tends to be low after exercise during cardiac rehab. Today, at cardiac rehab, his systolic blood pressure was in the 70s but returned to normal after resting for a short period. The patient does not regularly monitor his blood pressure at home, so he is unsure if it is a recurring issue. He otherwise denies any exertional chest pain, palpitations, dizziness, orthopnea, PND, leg edema, presyncope, or syncope. [facility] Medical History Atrial fibrillation with rapid ventricular response Supplemental oxygen dependent ILD (interstitial lung disease) COPD (chronic obstructive pulmonary disease) Tubular adenoma of colon (~2021) Postoperative hypothyroidism Obesity (BMI 30-39.9) Atrial fibrillation Chest discomfort Bronchitis Hemoptysis HOLLOWAY (dyspnea on exertion) Abnormal SPEP Multinodular thyroid Swelling of left lower extremity Pulmonary nodules/lesions, multiple Ground glass opacity present on imaging of lung Wedge compression fracture of T9 vertebra (~2018) Coronary artery disease Hypertension Right renal stone Thyroid nodule Vitamin D deficiency Ascending aorta dilatation Obesity (BMI 30-39.9) Psoriasis Hypercholesterolemia Former smoker Stable angina Surgical History Status post AAA (abdominal aortic aneurysm) repair Hx of bilateral cataract extraction (~2022) History of partial thyroidectomy (~2020) History of heart artery stent (~2019) History of colonoscopy History of cardioversion (~2020) History of appendectomy History of tonsillectomy History of lung biopsy (~2016) Family History Father Heart disease Mother Throat cancer Paternal Grandfather Heart disease Social History Household Members: Spouse Housing: House Are you a primary child care education coordinator to a significant other at home: No Do you presently have visiting nurse or other home services: No Alcohol intake: former Year quit: 2014 Patient Tobacco Use Status: Former Tobacco user Tobacco use type: Cigarette Years Smoked: 50 e-Cigarette/Vaping Use: Former Use Second Hand Smoke Exposure: No Advance Directives Date on File: 09/21/20 service: Yes Current occupational status: retired Cognitive needs: No Hearing needs: No Vision needs: Yes Review of Systems Const Denies chills, Denies fatigue, Denies fever(s), Denies weight gain and Denies weight loss ENT Denies dizziness Card Denies chest pain, Denies leg edema, Denies lightheadedness, Denies palpitations, Denies dyspnea on exertion, Denies orthopnea and Denies other Resp Denies cough and Denies dyspnea on exertion GI Denies hematochezia and Denies change in stool character Musc Denies abnormal gait, Denies muscle weakness, Denies numbness, Denies radiating pain into limb and Denies tingling Neuro Denies abnormal gait, Denies dizziness, Denies numbness and Denies tingling Endo Denies fatigue and Denies palpitations Physical Exam Vital Signs: Last Vital Signs Pulse 94 05/13/24 14:43 BP 112/50 L 05/13/24 14:43 BMI result Body Mass Index 30.7 Const General: cooperative, healthy appearing, comfortable and no acute distress Orientation/consciousness: patient oriented x3 HEENT Head: Yes normal to inspection Neck Neck: Yes normal visual inspection, Yes trachea midline and Yes supple Chest Chest palpation & inspection: normal inspection of the chest Resp Effort & Inspection: normal respiratory effort Auscultation: clear to auscultation bilaterally, no crackles, no rales, no rhonchi and no wheezes Cardio Jugular venous distension: no JVD Palpation: normal PMI Rate: regular rate Rhythm: abnormal rhythm Heart sounds: S1 normal heart sound present, S2 normal heart sound present, no click, no gallops, no murmurs and no rubs Peripheral pulses: Peripheral pulses 2+ throughout GI Inspection: Yes normal to inspection Palpation (GI): Soft to palpation Auscultation: normal bowel sounds Skin Trauma: abrasion (Left yost- redness and warmth present) Neuro General: patient oriented x3 Extrem General: Yes normal to inspection, No no pedal edema and No calf tenderness Psych Appearance: grossly normal Mental Status: mental status grossly normal Speech and movement: Normal speech and movement present Assessment & Plan Assessment & Plan (1) Chronic atrial fibrillation: Code(s): I48.20 - Chronic atrial fibrillation, unspecified Category: Medical (2) Coronary artery disease: Comment: (NSTEMI 04/2019 - JL + proximal and distal RCA rotablation) 03/01/2024 PCI to RCA Code(s): I25.10 - Atherosclerotic heart disease of jackson coronary artery without angina pectoris Category: Medical Qualifiers: Coronary Disease-Associated Artery/Lesion type: jackson artery [place] vs. transplanted heart: jackson heart Associated angina: without angina Qualified Code(s): I25.10 - Atherosclerotic heart disease of jackson coronary artery without angina pectoris (3) Chronic diastolic heart failure: Code(s): I50.32 - Chronic diastolic (congestive) heart failure Category: Medical Plan 02/28/2024- echo shows a low-normal LV EF 50-55% with mild LVH, moderately dilated left atrium, mild aortic stenosis, [id number] enlargement of ascending aorta at 4.4 cm. For chronic AFib, continue full on oral anticoagulation therapy with Eliquis 5 mg b.i.d.. For rate control approach, the patient is on digoxin, diltiazem, and metoprolol. For diastolic heart failure, the patient is on Lasix. His blood pressure today is soft at 112/50. Due to his lower blood pressure readings, we will reduce his metoprolol dose from 75 b.i.d. to 50 mg b.i.d., and Lasix will be reduced to 40 mg daily. We will bring the patient back in 1 month with a nurse for a blood pressure check. Advised him to keep a blood pressure log and to bring with him during the visit with his blood pressure machine. Additionally, the patient has a leg abrasion, and I have reached out to his PCP's office to schedule an evaluation for this issue. We will follow-up in 3 months and update his echocardiogram. In the meantime the patient advised to contact the office with any signs of heart failures, as discussed during today's visit. This note was generated using voice recognition software. While every effort has been made to ensure accuracy and proper motion picture camera lens technician, there may be occasional errors that could affect the content or meaning of the described symptoms. Orders: Orders CA echo transthoracic complete 3 Months I35.0 - Nonrheumatic aortic (valve) stenosis Medications: Changed From furosemide (Lasix) 20 mg PO BID 120 tabs 5RF To furosemide (Lasix) 40 mg (2 x 20 mg) PO QAM 120 tabs 5RF From furosemide (Lasix) 20 mg orally Take 2 tablets in morning, 1 tablet in the afternoon.; 120 tabs 5RF To furosemide (Lasix) 20 mg PO BID 120 tabs 5RF From metoprolol tartrate Three tablets twice daily 75 mg (3 x 25 mg) PO BID 30 days 180 tabs 5RF To metoprolol tartrate two tablets twice daily 50 mg (2 x 25 mg) PO BID 30 days 120 tabs 5RF Coding Level of Care Code Est Pt Level 4 (40534) Diagnoses Chronic atrial fibrillation I48.20 Coronary artery disease involving jackson coronary artery of jackson heart without angina pectoris I25.10 Coronary Disease-Associated Artery/Lesion type: jackson artery [place] vs. transplanted heart: jackson heart Associated angina: without angina Chronic diastolic heart failure I50.32 Time Spent (min) 32 Comment Time spent in reviewing the chart, test results, assessment, counseling and documentation.
[2024-05-13 14:43] VITALS: BP 112/50; PULSE 94; BMI 30.7
--- OUTSIDE RECORDS SUMMARY | 2024-05-13 16:42 | XMS_ITS | Data Portability ---
Author Organization [facility], [address] Address [address] [place] [address] Assessment No assessment recorded. Plan of Treatment [...] By Organization Details Last Modified Time 05/18/2022 [id number] cuts: care instructions [email or web address] Not available 05/18/2022 [...] Address Organization Details Recorded Time Atrial fibrillation 88252733 Active 2022 Malika Shana null, PA - [facility] 3 13:50:16 Chronic obstructive pulmonary disease 60684349 Active 2022 Malika [place] null, PA - [facility] 3 13:50:20 Hypertensive disorder 21444732 Active 2022 Malika Shana null, PA - [facility] 3 13:50:27 Hyperlipidemia 01201989 Active 2022 Malika [place] null, PA - [facility] 3 13:50:33 Problem Notes None recorded. Medical Equipment None Reported. Allergies Allergen ID Allergen Name Allergen Category Reaction Reaction Severity Criticality Documentation Date Start Date Code Code System Note Provider Name and Address Organization Details Recorded Time 795586 Product containin g penicilli n and antibioti c (product) medicatio n anaphylax is Not available high 05/18/2022 12730 05 SNOMED Malika [place] null, PA - [facility] 3 13:49:54 [...] t Available Vitals Date Recorded Body height Provider Name an d Address Organization Details Last Updated DateTime 05/18/2022 172.72 cm Malika Shana PA - [facility] 0 05/18/2022 13:49:42 Date Recorded Body mass index (BMI) Body weight Provider Name and Address Organization Details Last Updated DateTime 05/18/2022 31.9 kg/m2 65362.4 g Malika Shana PA - [facility] 05/18/2022 13:49:45 Date Recorded Oxygen saturation Oxygen saturation in Arterial blood by Pulse oximetry Provider Name and Address Organization Details Last Updated DateTime 05/18/2022 95 % 95 % Malika Shana PA - [facility] 05/18/2022 13:55:35 Date Recorded Heart rate Provider Name an d Address Organization Details Last Updated DateTime 05/18/2022 97 /min Malika Baltimore PA - [facility] 0 05/18/2022 13:55:40 Date Recorded Respiratory rate Provider Name a nd Address Organization Details Last Updated DateTime 05/18/2022 20 /min Malika [place] PA - [facility] 0 05/18/2022 13:55:41 Date Recorded Body temperature Provider Name a nd Address Organization Details Last Updated DateTime 05/18/2022 97.5 [degF] Malika Shana PA - [facility] 05/18/2022 13:55:46 Date Recorded Systolic blood pressure Diastolic blood pressure Provider Name and Address Organization Details Last Updated DateTime 05/18/2022 167 mm[Hg] 94 mm[Hg] Malika Baltimore PA - [facility] 05/18/2022 13:55:29 Social History Question Answer Notes LastModified by Organizat ion Details LastModified Time Tobacco Smoking Status Former Smoker Malika [place] null, PA - [facility] 05/18/2022 13:50:42 What [...] SNOMED-CT Code Diagnosis ICD10 Code Diagnosis Note [id number] [address] [place] [address] 05/04/2019 10:15:48 05/04/2019 11:04:20 [id number] [address] [place] [address] 08/22/2017 10:46:43 08/22/2017 11:28:26 [id number] [address] [place] [address] 11/06/2019 08:12:57 11/06/2019 08:47:49 [id number] [address] [place] [address] 09/10/2018 10:01:20 09/10/2018 11:14:04 [id number] [address] [place] [address] 11/07/2019 08:20:04 11/07/2019 10:41:03 [id number] [address] [place] [address] 03/02/2020 09:28:03 03/02/2020 11:43:55 [id number] [address] [place] [address] 11/04/2019 08:03:33 11/04/2019 09:40:15 [id number] Donavan Hankins, [address] [place] [address] 05/18/2022 13:41:02 05/18/2022 14:28:46 Laceration of left hand [id number] S61.412A following oral consent wound was cleaned [...] [place] [employer] [place] Edward P Halton [id number] Edward P Halton 11/04/2019 2 [place] [id number] Edward P Halton [id number] Edward P Halton 11/06/2019 1 [place] [employer] Edward P Halton [id number] 5 Edward P Halton 11/06/2019 2 [place] [id number] Edward P Halton [id number] Edward P Halton 11/07/2019 1 [place] [employer] Edward P Halton [id number] Edward P Halton 11/07/2019 2 [place] [id number] Edward P Halton [id number] Edward P Halton 03/02/2020 1 [place] [employer] Edward P Halton [id number] Edward P Halton 03/02/2020 2 [place] [id number] Pablito Everett [id number] Pablito Everett 05/18/2022 1 [place] [facility] Pablito Everett [id number] 5 Pablito Everett 05/18/2022 2 [place] [id number] Pablito Everett [id number] Pablito Everett Notes Date Note Type Note Provider Name and Address Organization Details Recorded Time 05/18/2022 text/html UC Wound/LacerationRep orted bypatient.Notes:76 yo malescratched by his house malik plavix and eliquisstill bleedingtried band aids w/o improvementno f/c/n/vminimal pain no CPno SOBno Hano dizzinessno f/c/n/v Donavan Hankins, DO [address] [place], [address], PA - [facility] 05/18/2022 14:30:26
--- OUTSIDE RECORDS SUMMARY | 2024-05-13 16:42 | XMS_ITS | Patient Health Record ---
Author Organization [facility] Address [address] [place] [address] Care Team Providers Care Mft Name Role Phone Oswaldo Delgado MD Primary Care Provider Ever Colmenares [phone] ALLERGIES Allergen (clinical drug ingredient) Drug/Non Drug [...] W/U Status Risk SNOMED Code Notes Problem custodial current use of anticoagulant (Z79.01) Active confirmed 076573410 Problem Encounter for screening for malignant neoplasm of colon (Z12.11) Active confirmed 428854251 Problem Diverticulosis of colon (K57.30) Active confirmed Diverticulosi s of colon (317068804) Problem Esophageal dysphagia (R13.19) Active confirmed 64037745 PLAN OF TREATMENT Pending Test Test Name Order Date XR BARIUM SWALLOW-ESOPHAGUS 05/23/2022 Future Test Test Name Order Date COLONOSCOPY 04/27/2021 Insurance Providers Payer Name Payer Address Payer Phone Subscriber Number Group Number Insured Name Patient Relationship to Insured Coverage Start Date Coverage End Date MEDICARE OF [place] [address] [place] [address] [id number] FAISAL ARELLANO Self - patient is the insured MEDEX ATTN CLAIMS [address] [place] [address] [id number] FAISAL ARELLANO Self - patient is the insured MEDICAL (GENERAL) HISTORY Medical History History ICD Code Ascending aortic aneurysm COPD Coronary artery disease--[place] and 2 stents in 2019-Dr. Jean-Baptiste Osteoporosis Psoriasis - on humira pulmonary nodule Renal stones Thyroid nodule Vitamin D deficiency Wedge compression fracture of T9 vertebr a Hypertension Afib Denies DM,CVA,renal disease Negative screening colonoscopy in 2007 Colonoscopy 05/2020 with a small tubular adenoma removed Surgical History Surgery Date(Month/Year) Appendectomy Tonsillectomy Lung biopsy 11/22/2016 Thyroid-benign
== END 2024-05-13 15:32 | disposition home or self-care (01) ==
PROVIDERS: PCP Internal Medicine
DX: I48.20 Chronic atrial fibrillation, unspecified (principal); I25.10 Atherosclerotic heart disease of native coronary artery without angina pectoris; I50.32 Chronic diastolic (congestive) heart failure
CPT/HCPCS: 99214

== ENCOUNTER → 2024-05-13 14:21 | Outpatient (BNVA) | payer MEDICARE, SELFPAY ==
[2024-02-07 11:25] VITALS: BMI 32.0
== END ==
PROVIDERS: PCP Internal Medicine
DX: I48.20 Chronic atrial fibrillation, unspecified (principal); I25.10 Atherosclerotic heart disease of native coronary artery without angina pectoris; I11.0 Hypertensive heart disease with heart failure; I50.32 Chronic diastolic (congestive) heart failure; I35.0 Nonrheumatic aortic (valve) stenosis; J44.9 Chronic obstructive pulmonary disease, unspecified; Z99.81 Dependence on supplemental oxygen
CPT/HCPCS: 99212

== ENCOUNTER 2024-05-14 09:42 | Outpatient (AMB) | payer MEDICARE, SELFPAY ==
[2024-02-07 11:25] VITALS: BMI 32.0
--- NOTE | 2024-05-14 09:53 | A.OFFPC_ITS ---
Vital Signs 3 05/14/24 09:55 Height 5 ft 8 in Weight 196 lb BMI 29.8 BP 110/60 Blood Pressure Location Lt brachial Position Sitting Pulse 67 Pulse Source Pulse Oximeter Temp 97.1 F Temp Source Skin Pulse Oximetry (%) 92 Oxygen Delivery Method Room Air Intake Visit Reasons: Possible injury infected Intake Note: Patient is here to follow up on possible injury infected on left leg. Lidder Required: No Patent Agent: Not Required per policy Accompanied by: Self / Same As Patient Allergies Penicillins Allergy (Severe, Verified 05/14/24 09:55) Anaphylaxis hydrochlorothiazide Allergy (Unknown, Verified 05/14/24 09:55) Unknown lisinopril Allergy (Unknown, Verified 05/14/24 09:55) Unknown regadenoson [From Lexiscan] Adverse Reaction (Verified 05/14/24 09:55) Bradycardic Medication List - Last Reconciled 05/14/24 by Maritza Raphael PA-C adalimumab (Humira(CF) Pen) 40 mg subcut Q2W apixaban (Eliquis) 5 mg PO BID 90 days atorvastatin 80 mg PO BEDTIME rgktrqaegr-aroyhzgw-kjdvyhrytr 160-9-4.8 mcg/actuation (Breztri Aerosphere) 2 inhalations inhalation BID cholecalciferol (vitamin D3) 50 mcg PO DAILY clopidogrel 75 mg PO DAILY compress.stocking,knee,reg,med As directed 20-30 mm HG cyanocobalamin (vitamin B-12) (Vitamin B-12) 1,000 mcg PO DAILY digoxin 125 mcg orally Three times a week MWF; diltiazem HCl ER 180 mg PO DAILY doxycycline hyclate 100 mg PO BID 7 days famotidine 20 mg PO BID 90 days ferrous sulfate 325 mg PO DAILY 90 days furosemide (Lasix) 40 mg (2 x 20 mg) PO QAM levothyroxine 50 mcg PO DAILY@0600 metoprolol tartrate 50 mg (2 x 25 mg) PO BID 30 days [OXYGEN 2 L NC keep sats > 90 As directed] [PORTABLE OXYGEN TANK As directed] potassium chloride ER (Klor-Con) 10 mEq PO BID tamsulosin 0.8 mg (2 x 0.4 mg) PO DAILY Tobacco use date assessed: 05/14/24 Fall risk assessment: No Falls in past year Last assessed Fall Risk: 05/14/24 Dental Screening Dental Screen Date: 05/14/24 Did you have a dental visit in the last 12 months?: Yes Did you have a dental problem in the last 6 months where you did not have access to dental care?: No Was dental information given to patient?: Patient has dentist HPI Possible injury infected 2 HPI0 Details 78-year-old male with past medical histo ry of hypothyroidism, hypercholesterolemia, hypertension, interstitial lung disease with COPD, atrial fibrillation on anticoagulation, and diabetes mellitus last seen by Dr. Delgado 03/2024 coming in for acute problem. In review of the notes, patient was seen in [facility] 04/24/2024 for a laceration to the left yost wound edges were approximated with Steri-Strips and glue used to adhere edges and tetanus was given. Today he tells us the wound has healed however he was told by his sas programmer analyst yesterday to make an appointment with the office as the wound looked possibly infected. He states the wound had a scab over it that was ripped off and was draining yellowish fluid and having surrounding redness. [facility] Medical History Atrial fibrillation with rapid ventricular response Supplemental oxygen dependent ILD (interstitial lung disease) COPD (chronic obstructive pulmonary disease) Tubular adenoma of colon (~2021) Postoperative hypothyroidism Obesity (BMI 30-39.9) Atrial fibrillation Chest discomfort Bronchitis Hemoptysis HOLLOWAY (dyspnea on exertion) Abnormal SPEP Multinodular thyroid Swelling of left lower extremity Pulmonary nodules/lesions, multiple Ground glass opacity present on imaging of lung Wedge compression fracture of T9 vertebra (~2018) Coronary artery disease Hypertension Right renal stone Thyroid nodule Vitamin D deficiency Ascending aorta dilatation Obesity (BMI 30-39.9) Psoriasis Hypercholesterolemia Former smoker Stable angina Surgical History Status post AAA (abdominal aortic aneurysm) repair Hx of bilateral cataract extraction (~2022) History of partial thyroidectomy (~2020) History of heart artery stent (~2019) History of colonoscopy History of cardioversion (~2020) History of appendectomy History of tonsillectomy History of lung biopsy (~2016) Family History Father Heart disease Mother Throat cancer Paternal Grandfather Heart disease Social History Household Members: Spouse Housing: House Are you a primary animal care supervisor to a significant other at home: No Do you presently have visiting nurse or other home services: No Alcohol intake: former Year quit: 2014 Patient Tobacco Use Status: Former Tobacco user Tobacco use type: Cigarette Years Smoked: 50 e-Cigarette/Vaping Use: Former Use Second Hand Smoke Exposure: Yes Advance Directives Date on File: 09/21/20 service: Yes Current occupational status: retired Cognitive needs: No Hearing needs: No Vision needs: Yes (Glasses) Questionnaire PHQ-9 Over the last 2 weeks, how often have you been bothered by any of the following problems? 1. Little interest or pleasure in doing things: not at all 2. Feeling down, depressed, or hopeless: not at all 3. Trouble falling or staying asleep, or sleeping too much: not at all 4. Feeling tired or having little energy: not at all 5. Poor appetite or overeating: not at all 6. Feeling bad about yourself - or that you are a failure or have let yourself or your family down: not at all 7. Trouble concentrating on things, such as reading the newspaper or watching television: not at all 8. Moving or speaking so slowly that other people could have noticed. Or the opposite - being so fidgety or restless that you have been moving around a lot more than usual: not at all 9. Thoughts that you would be better off or of hurting yourself in some way: not at all Total score: 0 Depression Screening Interpretation: Negative Depression Screening Done: Yes Source: Developed by Drs. Ever Nelson, Sarah Galindo, Lopez Owen and colleagues, with an educational moira from [employer]. Thrive Questionnaire Date Thrive assessed: 05/14/24 I am a: Patient What is your living situation today?: I have a steady place to live Within the past 12 months, did the food you bought not last and you didn't have the money to get more?: Never true Within the past 12 months, did you worry whether your food would run out before you got money to buy more?: Never true Do you have trouble paying for medicines?: No Do you have trouble getting transportation to medical appointments?: No Do you have trouble paying your heating and electricity bill?: No Do you have trouble taking care of your child, family member or friend?: No Do you have trouble with day-to-day activities such as bathing, preparing meals, shopping, managing finances, etc.?: No Are you currently unemployed and looking for a job?: No Are you interested in more education?: No Please select the resources that you would like help with: None Currently or been in a relationship where the following occur: No concerns reported THRIVE Score: 0 AUDIT C Alcohol Use Questionnaire (AUDIT-C) 1. How often do you have a drink containing alcohol?: Never Total Score: 0 JORGE-7 AMB Questionnaire JORGE-7 Date JORGE - 7 assessed: 05/14/24 Feeling nervous, anxious, or on edge: 0 = Not at all Not being able to stop or control worryin = Not at all Worrying too much about different things: 0 = Not at all Trouble relaxin = Not at all Being so restless that it is hard to sit still: 0 = Not at all Becoming easily annoyed or irritable: 0 = Not at all Feeling afraid as if something awful might happen: 0 = Not at all Total JORGE-7 score (0-4 normal; 5-9 mild; 10-14 moderate; 15-21 severe): 0 Source: Developed by Drs. Ever Nelson, Sarah Galindo, Lopez Owen and colleagues, with an educational moira from [employer]. Review of Systems Const Denies body aches, Denies chills, Denies fever(s), Denies headache(s) and Denies poor appetite Eyes Reports no additional complaints ENT Denies dizziness and Denies headache(s) Card Denies chest pain, Denies edema and Denies dyspnea Resp Denies cough and Denies dyspnea GI Reports no additional complaints Musc Reports no additional complaints and Denies abnormal gait Skin/Breast Reports system reviewed and no additional complaints, except as documented Neuro Denies abnormal gait, Denies dizziness and Denies headache(s) Psych Reports no additional complaints Physical exam (Primary Care) Vital Signs: Last Vital Signs Temp 97.1 F 05/14/24 09:55 Pulse 67 05/14/24 09:55 BP 110/60 05/14/24 09:55 Pulse Ox 92 05/14/24 09:55 Oxygen Delivery Method Room Air 05/14/24 09:55 BMI result Body Mass Index 29.8 Tobacco/Smoking Status: Tobacco use Status Tobacco use date assessed 05/14/24 05/14/24 10:00 Patient Tobacco Use Status Former Tobacco user 05/14/24 10:00 Tobacco use type Cigarette 05/14/24 10:00 e-Cigarette/Vaping Use Former Use 05/14/24 10:00 PHQ-9: PHQ-9 Score PHQ-9: Total score 0 05/14/24 10:01 Depression Screening Interpretation: Negative Thrive Assessment: Date of Thrive Assessment Date Thrive assessed 05/14/24 05/14/24 10:00 Currently or been in a relationship where the following occur: No concerns reported Const General: cooperative, healthy appearing, comfortable and no acute distress Orientation/consciousness: patient oriented x3 HENMT Head: Yes normocephalic Ears: hearing grossly normal bilaterally General nose exam: Normal external nose present Eyes General: appearance normal, both eyes and all related structures Conjunctivae: conjunctivae normal Neck Neck: Yes full ROM and Yes no lymphadenopathy Resp Effort & Inspection: normal respiratory effort Auscultation: clear to auscultation bilaterally, no crackles, no rales, no rhonchi and no wheezes Cardio Rate: regular rate Rhythm: regular rhythm Skin Full body images: 2 1. Small laceration with surrounding erythema and scant yellow drainage Neuro General: patient oriented x3 Gait exam (Neuro): Normal gait present Extrem General: Yes normal to inspection, Yes full ROM and No edema Psych Affect: normal affect Attitude: cooperative Insight: Good insight present (Psych) Judgement: Good judgement present (Psych) Coding Level of Care Code Est Pt Level 3 (24739) Diagnoses Cellulitis L03.90 Assessment & Plan Assessment & Plan (1) Cellulitis: Code(s): L03.90 - Cellulitis, unspecified Category: Medical Plan: Patient has a small laceration on the left lower extremity with yellow drainage. Patient states initially it has been healing with normal scabbing but the scab was removed off by a pair of his pants. The wound was dressed today with bacitracin, nonadherent bandage and Dejan wrap. The plan for managing the patient's infected wound involves administering doxycycline b.i.d. for a 7-day course while also applying topical bacitracin or Neosporin. The importance of keeping the wound clean, dry, and exposed to air was emphasized, with nonstick pads utilized for covering when necessary. Alternative antibiotics were considered due to the patient's penicillin allergy. Patient should monitor and report if symptoms persist beyond a few days. reviewed patient red flag symptoms when to present for re-evaluation Plan Patient was informed and verbally consented to the use of an ambient scribe for clinic note documentation during this visit. This note was constructed using voice recognition software. While every effort has been made to ensure accuracy and athletic director, still areas may have been included sometimes these areas may affect the content or meeting of the given symptoms. Total time spent caring for the patient today was 20 minutes. This includes time spent before the visit reviewing the chart, time spent during the visit, and time spent after the visit and documentation. Medications: New 2 doxycycline hyclate 100 mg PO BID 14 caps 0RF 7 days
[2024-05-14 09:55] VITALS: BP 110/60; PULSE 67; TEMP 36.2; O2SAT 92; BMI 29.8
== END 2024-05-14 10:32 | disposition home or self-care (01) ==
PROVIDERS: PCP Internal Medicine
DX: L03.90 Cellulitis, unspecified (principal)

== ENCOUNTER → 2024-05-14 09:42 | Outpatient (BNVA) | payer MEDICARE, SELFPAY ==
[2024-02-07 11:25] VITALS: BMI 32.0
== END ==
PROVIDERS: PCP Internal Medicine
DX: L03.90 Cellulitis, unspecified (principal)
CPT/HCPCS: 99212

== ENCOUNTER 2024-05-18 10:28 | Outpatient (REF) | payer MEDICARE, SELFPAY ==
[2024-02-07 11:25] VITALS: BMI 32.0
--- NOTE | ~2024-05-18 | XR_ITS ---
EXAMINATION: XR HIP, RIGHT CLINICAL INFORMATION: M70.61 - Trochanteric bursitis, right hip COMPARISON: None available. TECHNIQUE: Two views of the right hip. FINDINGS: Sclerosis along the articular surface of the right acetabulum. Joint space narrowing, coxofemoral joint. No acute cortical disruption or malalignment. Vascular calcifications. Stent overlapping the lower lumbar spine and upper sacrum likely in the right common femoral artery and distal abdominal aorta region. Dystrophic calcifications above the symphysis pubis. XR/XR hip RT min 2V IMPRESSION: Moderate osteoarthritis, right coxofemoral joint. No acute fracture or dislocation, right hip. Atherosclerosis disease, peripheral. Probable status post Endo aortoiliac stenting. Electronically signed by: Grayson Mosher MD 05/19/2024 08:42 AM SHAGGY
[2024-05-18 13:46] LABS: Blood Urea Nitrogen 27 mg/dL (9-16); Estimated Glomerular Filt Rate > 60
== END 2024-05-18 10:29 | disposition home or self-care (01) ==
LOC: HO.HMGCX 10:28
PROVIDERS: PCP Internal Medicine; Referring Provider Surgery Vascular Surgery; Visit Provider Internal Medicine
DX: M70.61 Trochanteric bursitis, right hip (principal); I71.43 Infrarenal abdominal aortic aneurysm, without rupture
CPT/HCPCS: 36415; 73502; 82565; 84520; 99212

== ENCOUNTER 2024-05-18 10:28 | Outpatient (AMB) | payer MEDICARE, SELFPAY ==
[2024-02-07 11:25] VITALS: BMI 32.0
--- NOTE | 2024-05-18 10:46 | MHC.PC.OV ---
Vital Signs 05/18/24 10:47 Height 5 ft 8 in Weight 196 lb 4 oz BMI 29.8 BP 110/66 Blood Pressure Location Lt brachial Position Sitting Pulse 100 Pulse Source Pulse Oximeter Temp 97.1 F Temp Source Skin Pulse Oximetry (%) 95 Oxygen Delivery Method Room Air Intake Visit Reasons: RT hip pain radiating down leg Intake Note: Patient is here to follow up on Right hip pain radiating down right leg. Bath Mix Operator Required: No Business Administration Program Chair: Not Required per policy Accompanied by: Self / Same As Patient Allergies Penicillins Allergy (Severe, Verified 05/18/24 10:47) Anaphylaxis hydrochlorothiazide Allergy (Unknown, Verified 05/18/24 10:47) Unknown lisinopril Allergy (Unknown, Verified 05/18/24 10:47) Unknown regadenoson [From Lexiscan] Adverse Reaction (Verified 05/18/24 10:47) Bradycardic Tobacco use date assessed: 05/18/24 Fall risk assessment: No Falls in past year Last assessed Fall Risk: 05/18/24 Dental Screening Dental Screen Date: 05/14/24 HPI RT hip pain radiating down leg HPI Details The patient is a 78-year-old male presenting with right hip pain and a non-healing wound. The patient's hip pain is described as residing on the lateral aspect of the right hip region, without any history of recent trauma or falls. This pain has been ongoing for approximately a month, with some exacerbation noticed when sitting. The patient reports using Tylenol for pain management but has not had previous treatment with topical agents like Voltaren gel. The non-healing wound is noted on the lower extremity, reported as wrapped and taken care of with topical oil application. Antibiotics had been recently used, but there remains concern about redness, although the wound is noted to be dry. The wound has been present for approximately three weeks. [facility] Medical History (Updated 05/18/24 @ 11:13 by Oswaldo Delgado MD) Atrial fibrillation with rapid ventricular response Supplemental oxygen dependent ILD (interstitial lung disease) COPD (chronic obstructive pulmonary disease) Tubular adenoma of colon (~2021) Postoperative hypothyroidism Obesity (BMI 30-39.9) Atrial fibrillation Chest discomfort Bronchitis Hemoptysis HOLLOWAY (dyspnea on exertion) Abnormal SPEP Multinodular thyroid Swelling of left lower extremity Pulmonary nodules/lesions, multiple Ground glass opacity present on imaging of lung Wedge compression fracture of T9 vertebra (~2018) Coronary artery disease Hypertension Right renal stone Thyroid nodule Vitamin D deficiency Ascending aorta dilatation Obesity (BMI 30-39.9) Psoriasis Hypercholesterolemia Former smoker Stable angina Surgical History Status post AAA (abdominal aortic aneurysm) repair Hx of bilateral cataract extraction (~2022) History of partial thyroidectomy (~2020) History of heart artery stent (~2019) History of colonoscopy History of cardioversion (~2020) History of appendectomy History of tonsillectomy History of lung biopsy (~2016) Family History Father Heart disease Mother Throat cancer Paternal Grandfather Heart disease Social History Household Members: Spouse Housing: House Are you a primary acute care registered nurse to a significant other at home: No Do you presently have visiting nurse or other home services: No Alcohol intake: former Year quit: 2014 Patient Tobacco Use Status: Former Tobacco user Tobacco use type: Cigarette Years Smoked: 50 e-Cigarette/Vaping Use: Former Use Second Hand Smoke Exposure: Yes Advance Directives Date on File: 09/21/20 service: Yes Current occupational status: retired Cognitive needs: No Hearing needs: No Vision needs: Yes (Glasses) Questionnaire Thrive Questionnaire Date Thrive assessed: 05/14/24 JORGE-7 AMB Questionnaire JORGE-7 Date JORGE - 7 assessed: 05/14/24 Source: Developed by Drs. Ever Nelson, Sarah Galindo, Lopez Owen and colleagues, with an educational moira from [employer]. Physical exam (Primary Care) Vital Signs: Last Vital Signs Temp 97.1 F 05/18/24 10:47 Pulse 100 05/18/24 10:47 BP 110/66 05/18/24 10:47 Pulse Ox 95 05/18/24 10:47 Oxygen Delivery Method Room Air 05/18/24 10:47 BMI result Body Mass Index 29.8 Tobacco/Smoking Status: Tobacco use Status Tobacco use date assessed 05/18/24 05/18/24 10:52 Patient Tobacco Use Status Former Tobacco user 05/18/24 10:52 Tobacco use type Cigarette 05/18/24 10:52 e-Cigarette/Vaping Use Former Use 05/18/24 10:52 Thrive Assessment: Date of Thrive Assessment Date Thrive assessed 05/14/24 05/18/24 10:52 Const General: alert; No acute distress Eyes Conjunctivae: conjunctivae normal Resp Auscultation: clear to auscultation bilaterally GI Inspection: Yes normal to inspection Extrem Upper/lower leg/hip images: 1. 3 inch healing laceration mild redness= rebandaged 2. tender on the R hip area no swelling no redness Coding Level of Care Code Est Pt Level 4 (24775) Diagnoses Trochanteric bursitis of right hip M70.61 Assessment & Plan Assessment & Plan (1) Trochanteric bursitis of right hip: Code(s): M70.61 - Trochanteric bursitis, right hip Category: Medical Plan - A request for an x-ray of the right hip to further evaluate the cause of pain and potential bursitis. - Prescription of Voltaren gel for topical management of the hip pain, as it is considered a safe option and available over the counter. - Continual wound care advice was given, recommending wrapping to manage any discharge. - Referral to orthopedics for further assessment and management of right hip bursitis. - Discontinuation of antibiotics since the wound appears dry and does not seem to require further antimicrobial intervention at this time. Orders: Orders XR hip RT min 2V Today M70.61 - Trochanteric bursitis, right hip Referrals Orthopedics Referral M70.61 - Trochanteric bursitis, right hip Medications: New diclofenac sodium 1% (Arthritis Pain (diclofenac)) apply to single knee, ankle, foot; for foot includes sole/toes/top of foot 4 grams topical QID 100 grams 3RF M70.61 - Trochanteric bursitis, right hip
[2024-05-18 10:47] VITALS: BP 110/66; PULSE 100; TEMP 36.2; O2SAT 95; BMI 29.8
--- OUTSIDE RECORDS SUMMARY | 2024-05-18 15:11 | XMS_ITS | Data Portability ---
Author Organization [facility], [address] Address [address] [place] [address] Assessment No assessment recorded. Plan of Treatment [...] By Organization Details Last Modified Time 05/18/2022 [id number] cuts: care instructions [email or web address] Not available 05/18/2022 [...] Address Organization Details Recorded Time Atrial fibrillation 50306198 Active 2022 Malika Shana null, PA - [facility] 3 13:50:16 Chronic obstructive pulmonary disease 18692318 Active 2022 Malika [place] null, PA - [facility] 3 13:50:20 Hypertensive disorder 41397441 Active 2022 Malika Shana null, PA - [facility] 3 13:50:27 Hyperlipidemia 62346617 Active 2022 Malika [place] null, PA - [facility] 3 13:50:33 Problem Notes None recorded. Medical Equipment None Reported. Allergies Allergen ID Allergen Name Allergen Category Reaction Reaction Severity Criticality Documentation Date Start Date Code Code System Note Provider Name and Address Organization Details Recorded Time 763620 Product containin g penicilli n and antibioti c (product) medicatio n anaphylax is Not available high 05/18/2022 64035 05 SNOMED Malika [place] null, PA - [facility] 3 13:49:54 [...] Details Last Updated DateTime 05/18/2022 31.9 kg/m2 09234.4 g Malika Shana PA - [facility] 05/18/2022 13:49:45 Date Recorded Oxygen saturation Oxygen saturation in Arterial blood by Pulse oximetry Provider Name and Address Organization Details Last Updated DateTime 05/18/2022 95 % 95 % Malika Shana PA - [facility] 05/18/2022 13:55:35 Date Recorded Heart rate Provider Name an d Address Organization Details Last Updated DateTime 05/18/2022 97 /min Malika [place] PA - [facility] 0 05/18/2022 13:55:40 Date Recorded Respiratory rate Provider Name a nd Address Organization Details Last Updated DateTime 05/18/2022 20 /min Malika [place] PA - [facility] 0 05/18/2022 13:55:41 Date Recorded Body temperature Provider Name a nd Address Organization Details Last Updated DateTime 05/18/2022 97.5 [degF] Malika Shana PA - [facility] 05/18/2022 13:55:46 Date Recorded Systolic blood pressure Diastolic blood pressure Provider Name and Address Organization Details Last Updated DateTime 05/18/2022 167 mm[Hg] 94 mm[Hg] Malika [place] PA - [facility] 05/18/2022 13:55:29 Social History Question Answer Notes LastModified by Organizat ion Details LastModified Time Tobacco Smoking Status Former Smoker Malika [place] null, PA - [facility] 05/18/2022 13:50:42 [...] SNOMED-CT Code Diagnosis ICD10 Code Diagnosis Note [id number] [address] [place] [address] 05/04/2019 10:15:48 05/04/2019 11:04:20 [id number] [address] [place] [address] 08/22/2017 10:46:43 08/22/2017 11:28:26 [id number] [address] [place] [address] 11/06/2019 08:12:57 11/06/2019 08:47:49 [id number] [address] [place] [address] 09/10/2018 10:01:20 09/10/2018 11:14:04 [id number] [address] [place] [address] 11/07/2019 08:20:04 11/07/2019 10:41:03 [id number] [address] [place] [address] 03/02/2020 09:28:03 03/02/2020 11:43:55 [id number] [address] [place] [address] 11/04/2019 08:03:33 11/04/2019 09:40:15 [id number] Donavan Hankins, [address] [place] [address] 05/18/2022 13:41:02 05/18/2022 14:28:46 Laceration of left hand [id number] 5049310 S61.412A following oral consent wound was cleaned [...] [place] [place] Edward P Halton [id number] 5 Edward P Halton 11/04/2019 2 [place] [id number] Edward P Halton [id number] 87 Edward P Halton 11/06/2019 1 [place] B[place] [employer] Edward P Halton [id number] 5 Edward P Halton 11/06/2019 2 [place] [id number] Edward P Halton [id number] 87 Edward P Halton 11/07/2019 1 [place] [employer] Edward P Halton [id number] 5 Edward P Halton 11/07/2019 2 [place] [id number] Edward P Halton [id number] 87 Edward P Halton 03/02/2020 1 [place] [employer] Edward P Halton [id number] 5 Edward P Halton 03/02/2020 2 [place] [id number] Pablito Everett [id number] 87 Pablito Everett 05/18/2022 1 MEDICARE B-[place]: [facility] Pablito Everett [id number] 5 Pablito Everett 05/18/2022 2 [place] [id number] Pablito Everett [id number] 87 Pablito Everett Notes Date Note Type Note Provider Name and Address Organization Details Recorded Time 05/18/2022 text/html UC Wound/LacerationRep orted bypatient.Notes:76 yo malescratched by his house malik plavix and eliquisstill bleedingtried band aids w/o improvementno f/c/n/vminimal pain no CPno SOBno Hano dizzinessno f/c/n/v Donavan Hanikns, DO [address] [place], [address], PA - [facility] 05/18/2022 14:30:26
--- OUTSIDE RECORDS SUMMARY | 2024-05-18 15:11 | XMS_ITS | Patient Health Record ---
Author Organization [facility] Address [address] [place] [address] Care Team Providers Care [employer] Worker Name Role Phone Oswaldo Delgado MD Primary Care Provider Ever Colmenares [phone] ALLERGIES Allergen (clinical drug ingredient) Drug/Non Drug [...] W/U Status Risk SNOMED Code Notes Problem penitentiary current use of anticoagulant (Z79.01) Active confirmed 674565745 Problem Encounter for screening for malignant neoplasm of colon (Z12.11) Active confirmed 091933922 Problem Diverticulosis of colon (K57.30) Active confirmed Diverticulosi s of colon (577495198) Problem Esophageal dysphagia (R13.19) Active confirmed 46922332 PLAN OF TREATMENT Pending Test Test Name Order Date XR BARIUM SWALLOW-ESOPHAGUS 05/23/2022 Future Test Test Name Order Date COLONOSCOPY 04/27/2021 Insurance Providers Payer Name Payer Address Payer Phone Subscriber Number Group Number Insured Name Patient Relationship to Insured Coverage Start Date Coverage End Date MEDICARE OF [place] [address] [facility] [place] [address] [id number] FAISAL ARELLANO Self - patient is the insured MEDEX ATTN CLAIMS [address] [place] [phone] [id number] FAISAL ARELLANO Self - patient is the [...]
== END 2024-05-18 11:20 | disposition home or self-care (01) ==
PROVIDERS: PCP Internal Medicine; Visit Provider Internal Medicine
DX: M70.61 Trochanteric bursitis, right hip (principal)

== ENCOUNTER → 2024-05-18 12:07 | Outpatient (BNV) | payer MEDICARE, SELFPAY ==
[2024-02-07 11:25] VITALS: BMI 32.0
== END ==
PROVIDERS: PCP Internal Medicine; Referring Provider Surgery Vascular Surgery; Visit Provider Radiology Diagnostic Radiology
DX: M70.61 Trochanteric bursitis, right hip (principal)
CPT/HCPCS: 73502

== ENCOUNTER 2024-06-04 09:56 | Outpatient (REF) | payer MEDICARE, SELFPAY ==
[2024-02-07 11:25] VITALS: BMI 32.0
--- OUTSIDE RECORDS SUMMARY | 2024-06-04 10:35 | XMS_ITS | Patient Health Record ---
Author Organization [facility] Address [address] [place] [address] Care Team Providers Care Sql Developer Name Role Phone Oswaldo Delgado MD Primary Care Provider Ever Colmenares [phone] ALLERGIES Allergen (clinical drug ingredient) Drug/Non Drug [...] W/U Status Risk SNOMED Code Notes Problem [facility] current use of anticoagulant (Z79.01) Active confirmed 578821641 Problem Encounter for screening for malignant neoplasm of colon (Z12.11) Active confirmed 435836875 Problem Diverticulosis of colon (K57.30) Active confirmed Diverticulosi s of colon (327609731) Problem Esophageal dysphagia (R13.19) Active confirmed 36178768 PLAN OF TREATMENT Pending Test Test Name Order Date XR BARIUM SWALLOW-ESOPHAGUS 05/23/2022 Future Test Test Name Order Date COLONOSCOPY 04/27/2021 Insurance Providers Payer Name Payer Address Payer Phone Subscriber Number Group Number Insured Name Patient Relationship to Insured Coverage Start Date Coverage End Date MEDICARE OF [place] [address] [place] [address] [id number] FAISAL ARELLANO Self - patient is the insured MEDEX ATTN CLAIMS [address] [place] [address] [id number] FAISAL ARELLANO Self - patient is the insured MEDICAL (GENERAL) HISTORY Medical History History ICD Code Ascending aortic aneurysm COPD Coronary artery disease--[place] and 2 stents in 2019-Dr. Jean-Baptiste Osteoporosis Psoriasis - on humira pulmonary nodule Renal stones Thyroid nodule Vitamin D deficiency Wedge compression fracture of T9 vertebr a Hypertension Afib Denies DM,CVA,renal disease Negative screening colonoscopy in 2007 Colonoscopy 05/2020 with a small tubular adenoma removed Surgical History Surgery Date(Month/Year) Appendectomy Tonsillectomy Lung biopsy 11/22/2016 Thyroid-benign
--- OUTSIDE RECORDS SUMMARY | 2024-06-04 10:36 | XMS_ITS | Data Portability ---
Author Organization [facility], [address] Address [address] [place] [address] Assessment No assessment recorded. Plan of Treatment [...] By Organization Details Last Modified Time 05/18/2022 [id number] cuts: care instructions [email or web address] Not available 05/18/2022 [...] Address Organization Details Recorded Time Atrial fibrillation 48219381 Active 2022 Malika [place] null, PA - [facility] 3 13:50:16 Chronic obstructive pulmonary disease 75407771 Active 2022 Malika Shana null, PA - [facility] 3 13:50:20 Hypertensive disorder 96072600 Active 2022 Malika [place] null, PA - [facility] 3 13:50:27 Hyperlipidemia 93187802 Active 2022 Malika Shana null, PA - [facility] 3 13:50:33 Problem Notes None recorded. Medical Equipment None Reported. Allergies Allergen ID Allergen Name Allergen Category Reaction Reaction Severity Criticality Documentation Date Start Date Code Code System Note Provider Name and Address Organization Details Recorded Time 380198 Product containin g penicilli n and antibioti c (product) medicatio n anaphylax is Not available high 05/18/2022 24343 05 SNOMED Malika Shana null, PA - [facility] 3 13:49:54 [...] Last Updated DateTime 172.72 cm 31.9 kg/m2 59135.4 g 95 % 95 % 97 /min 20 /min 97.5 [degF] 167 mm[Hg] 94 mm[Hg] Malika Shana PA - [facility] 13:55:29 Social History [...] SNOMED-CT Code Diagnosis ICD10 Code Diagnosis Note [id number] [address] [place] [address] 05/04/2019 10:15:48 05/04/2019 11:04:20 [id number] [address] [place] [address] 08/22/2017 10:46:43 08/22/2017 11:28:26 [id number] [address] [place] [address] 11/06/2019 08:12:57 11/06/2019 08:47:49 [id number] [address] [facility] [place] [address] 09/10/2018 10:01:20 09/10/2018 11:14:04 [id number] [address] [facility] [place] [address] 11/07/2019 08:20:04 11/07/2019 10:41:03 [id number] [address] [facility] [place] [address] 03/02/2020 09:28:03 03/02/2020 11:43:55 [id number] [address] [facility] [place] [address] 11/04/2019 08:03:33 11/04/2019 09:40:15 [id number] Donavan Hankins DO [address] [facility] [place] [address] 05/18/2022 13:41:02 05/18/2022 14:28:46 Laceration of left hand [id number] 2560616 S61.412A following oral consent wound was cleaned [...] [place] Edward P Halton [id number] 5 Edward P Halton 11/04/2019 2 [place] [id number] Edward P Halton [id number] Edward P Halton 11/06/2019 1 MEDICARE B-[place]: [facility] G[place]ERNMENT SERVICES Edward P Halton [id number] 5 Edward P Halton 11/06/2019 2 [place] [id number] Edward P Halton [id number] Edward P Halton 11/07/2019 1 [place] B[place] [facility] GOVERNMENT SERVICES Edward P Halton [id number] 5 Edward P Halton 11/07/2019 2 [place] [id number] Edward P Halton [id number] Edward P Halton 03/02/2020 1 MED[place] B[place] [facility] GOVERNMENT SERVICES Edward P Halton [id number] 5 Edward P Halton 03/02/2020 2 [place] [id number] Edward P Halton [id number] Edward P Halton 05/18/2022 1 MED[place] B-[place]: [facility] Edward P Halton [id number] 5 Edward P Halton 05/18/2022 2 [place] [id number] Edward P Halton [id number] Edward P Halton Notes Date Note Type Note Provider Name and Address Organization Details Recorded Time 05/18/2022 text/html UC Wound/LacerationRep orted bypatient.Notes:76 yo malescratched by his house malik plavix and eliquisstill bleedingtried band aids w/o improvementno f/c/n/vminimal pain no CPno SOBno Hano dizzinessno f/c/n/v Donavan Hankins, DO [address] [place], [address], PA - [facility] 05/18/2022 14:30:26
[2024-06-04 13:22] LABS: Digoxin 0.2 ng/mL (0.8-2.0)
== END 2024-06-04 09:57 | disposition home or self-care (01) ==
LOC: HO.HMGCLDS 09:56
PROVIDERS: PCP Internal Medicine
DX: I48.20 Chronic atrial fibrillation, unspecified (principal)
CPT/HCPCS: 36415; 80162

== ENCOUNTER 2024-06-05 08:19 | Emergency (ER) | payer MEDICARE, SELFPAY ==
[2024-02-07 11:25] VITALS: BMI 32.0
--- NOTE | 2024-06-05 08:29 | ECG_ITS ---
Test Reason : hypotensive Blood Pressure : */* mmHG Vent. Rate : 69 BPM Atrial Rate : * BPM P-R Int : * ms QRS Dur : 82 ms QT Int : 382 ms P-R-T Axes : * 15 38 degrees QTcB Int : 409 ms Atrial fibrillation Abnormal ECG When compared with ECG of 06-May-2024 08:48, No significant change was found Referred By: Greta House Electronically Signed By: MIAH FERMIN MD
[2024-06-05 08:34] VITALS: BP 110/63; BP 117/70; PULSE 67; PULSE 70; RESP 18; TEMP 36.4; O2SAT 93; BMI 29.2
[2024-06-05 08:36] VITALS: BP 101/56; PULSE 72
[2024-06-05 08:38] VITALS: BP 122/64; PULSE 71
--- NOTE | 2024-06-05 08:46 | ED_ITS ---
HPI - General Adult General Chief complaint: General Medical Stated complaint: low BP Time Seen by Provider: 06/05/24 08:26 Source: patient and old records reviewed Mode of arrival: wheelchair Limitations: no limitations History of Present Illness ED Provider: KEVIN YOON narrative: 78 yo male with PMH of afib on eliquis, COPD on 2L NC, AAA repair, CAD s/p stent, ECHO EF 50-55%. He is currently on digoxin 125mcg PO 3X per week, Dilt 180mg ER daily, metoprolol 50mg BID, lasix 40mg daily - he has had issues in the past with hypotension at cardiac rehab including end of April with visit in the ED when he followed up with his nanny/household manager on 05/13/24. At that time his metoprolol was decreased from 75mg BID to 50mg BID and his lasix was cut down to 40mg daily. He notes he has felt fine since then - no recent CP/SOB, fevers, n/v/d or bloody stools. He went to rehab today and was exercising on the bike when his BP dropped into the 60s. He did feel a little dizzy. He notes he took all of his medications as prescribed this AM. He ate honey nut cheerios and drank juice. He feels fine now and has recovered in ED. 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) Severity: mild Relieving factors: rest Exacerbating factors: movement Associated symptoms: denies other symptoms Treatments prior to arrival: none Related Data Home Medications ?Medication ?Instructions ?Recorded ?Confirmed adalimumab 40 mg/0.4 mL 40 mg subcut Q2W 10/10/22 05/14/24 subcutaneous pen kit (Humira(CF) Pen) clopidogrel 75 mg tablet 75 mg PO DAILY 04/16/24 05/14/24 Previous Rx's ?Medication ?Instructions ?Recorded OXYGEN 2 L NC keep sats > 90 #1 ea 02/12/22 PORTABLE OXYGEN TANK #1 ea 02/22/22 compress.stocking,knee,reg,med #2 ea 04/10/22 cyanocobalamin (vitamin B-12) 1,000 mcg PO DAILY #90 tabs 05/26/23 1,000 mcg tablet (Vitamin B-12) atorvastatin 80 mg tablet 80 mg PO BEDTIME #90 tabs 10/05/23 budesonide 160 mcg-glycopyr 9 2 inh inhalation BID #10.7 grams 10/29/23 mcg-formot 4.8 mcg/actuation HFA inhaler (Breztri Aerosphere) diltiazem HCl 180 mg 180 mg PO DAILY #90 caps 12/03/23 capsule,extended release 24 hr, controlled famotidine 20 mg tablet 20 mg PO BID 90 days #180 tabs 12/31/23 ferrous sulfate 325 mg (65 mg 325 mg PO DAILY 90 days #90 tabs 12/31/23 iron) tablet,delayed release apixaban 5 mg tablet (Eliquis) 5 mg PO BID 90 days #180 tabs 01/03/24 levothyroxine 50 mcg tablet 50 mcg PO DAILY@0600 #90 tabs 03/24/24 potassium chloride 10 mEq 10 meq PO BID #60 tabs 04/16/24 tablet,extended release (Klor-Con) tamsulosin 0.4 mg capsule 0.8 mg (2 x 0.4 mg) PO DAILY #60 04/29/24 caps furosemide 20 mg tablet (Lasix) 40 mg (2 x 20 mg) PO QAM #120 tabs 05/13/24 metoprolol tartrate 25 mg tablet 50 mg (2 x 25 mg) PO BID 30 days 05/13/24 #120 tabs doxycycline hyclate 100 mg capsule 100 mg PO BID 7 days #14 caps 05/14/24 diclofenac sodium 1 % topical gel 4 g topical QID #100 grams 05/18/24 (Arthritis Pain (diclofenac)) cholecalciferol (vitamin D3) 50 50 mcg PO DAILY #90 caps 06/01/24 mcg (2,000 unit) capsule digoxin 125 mcg (0.125 mg) tablet 125 mcg PO 3XW #36 tabs 06/04/24 Allergies Allergy/AdvReac Type Severity Reaction Status Date / Time Penicillins Allergy Severe Anaphylaxis Verified 06/05/24 08:36 hydrochlorothiazide Allergy Unknown Unknown Verified 05/18/24 10:47 lisinopril Allergy Unknown Unknown Verified 05/18/24 10:47 regadenoson [From Lexiscan] AdvReac Bradycardic Verified 05/18/24 10:47 Review of Systems 2 Review of Systems: Constitutional : No Fever, No Chills, No Fatigue ENT/Mouth : No sore throat, No Rhinorrhea Eyes: No Eye Pain, No Swelling, No Redness Cardiovascular : No Chest Pain, No SOB, No Dyspnea on Exertion Respiratory : No Cough, No Sputum Gastrointestinal : No Nausea, No Vomiting, No Diarrhea, No abdominal Pain Genitourinary : No Dysuria, No Urinary Frequency, No Hematuria, Musculoskeletal : No joint pain, No Myalgias, No Joint Swelling Skin : No Skin Lesions, No rash Neuro : No Weakness, No Numbness, pos Dizziness, no Headache All other systems reviewed and are negative [facility] Past Medical History Attestation statement: The following information was validated with the patient. Source: old records reviewed Medical History Atrial fibrillation with rapid ventricular response Supplemental oxygen dependent ILD (interstitial lung disease) COPD (chronic obstructive pulmonary disease) Tubular adenoma of colon (~2021) Postoperative hypothyroidism Obesity (BMI 30-39.9) Atrial fibrillation Chest discomfort Bronchitis Hemoptysis HOLLOWAY (dyspnea on exertion) Abnormal SPEP Multinodular thyroid Swelling of left lower extremity Pulmonary nodules/lesions, multiple Ground glass opacity present on imaging of lung Wedge compression fracture of T9 vertebra (~2018) Coronary artery disease Hypertension Right renal stone Thyroid nodule Vitamin D deficiency Ascending aorta dilatation Obesity (BMI 30-39.9) Psoriasis Hypercholesterolemia Former smoker Stable angina Surgical History Status post AAA (abdominal aortic aneurysm) repair Hx of bilateral cataract extraction (~2022) History of partial thyroidectomy (~2020) History of heart artery stent (~2019) History of colonoscopy History of cardioversion (~2020) History of appendectomy History of tonsillectomy History of lung biopsy (~2016) Family History Family History Father Heart disease Mother Throat cancer Paternal Grandfather Heart disease Social History Social History Household Members: Spouse Housing: House Are you a primary career coordinator to a significant other at home: No Do you presently have visiting nurse or other home services: No Alcohol intake: former Year quit: 2014 Patient Tobacco Use Status: Former Tobacco user Tobacco use type: Cigarette Years Smoked: 50 e-Cigarette/Vaping Use: Former Use Second Hand Smoke Exposure: Yes Advance Directives: No Advance Directives Information Provided: Yes Advance Directives Date on File: 09/21/20 service: Yes Current occupational status: retired Cognitive needs: No Hearing needs: No Vision needs: Yes (Glasses) Physical Exam ED Vital Signs: Vital Signs - 24 hr 06/05/24 08:34 06/05/24 08:34 06/05/24 08:36 Temperature 97.5 F Pulse Rate 70 67 72 Respiratory Rate 18 Blood Pressure 110/63 117/70 101/56 L Pulse Oximetry 93 Oxygen Delivery Method Nasal Cannula 06/05/24 08:38 Temperature Pulse Rate 71 Respiratory Rate Blood Pressure 122/64 Pulse Oximetry Oxygen Delivery Method BMI result Body Mass Index 29.2 Appearance: Alert. Oriented X3. No acute distress. Eyes: Pupils equal, round and reactive to light. ENT: Pharynx normal. Neck: Normal inspection. Neck supple. CVS: Normal heart rate and rhythm. Pulses normal. Respiratory: No respiratory distress. Breath sounds slightly diminished Abdomen: Soft and nontender. Skin: Skin warm and dry. Normal skin color. Extremities: No lower extremity edema. Neuro: Oriented X 3. No motor deficit. No sensory deficit. CN2-12 intact Medical Decision Making Medical Decision Making MDM Narrative: 78 yo male with PMH of afib on eliquis, COPD on 2L NC, AAA repair, CAD s/p stent, ECHO EF 50-55% here again with low BP while exercising and mild dizziness he has had this before and they lowered his medications on 05/13/24 at this time will obtain ortho VS, EKG, basic labs and I suspect to go down on his metoprolol to 25mg BID and he has cardiology appointment on Saturday his ortho VS are not concerning they do not drop when he stands Differential Diagnosis Differential Diagnoses: The differential diagnosis associated with the presentation includes orthostatics, anemia, dehydration Admission/Observation Consideration of admission/observation: Escalation of care including admission/observation considered labs reassuring no drop in BP will cut him down to 25mg metoprolol BID Lab Data [facility] [place] Lab Attestation statement: I reviewed the patient's lab results. 06/05/24 09:59 06/05/24 10:00 Labs: Lab Results 06/05/24 06/05/24 Range/Units 09:59 10:00 WBC 8.9 (4.8-10.8) X10*3/uL RBC 3.28 L (4.60-5.80) X10*6/uL Hgb 11.4 L (14.0-18.0) g/dl Hct 34.2 L (42.0-52.0) % MCV 104.3 H (80.0-98.0) fL MCH 34.8 H (27.0-33.0) pg MCHC 33.3 (31.0-36.0) g/dl RDW 14.9 (11.0-16.0) % Plt Count 144 L (160-400) X10*3/uL MPV 9.1 L (9.4-12.4) fL Immature Gran % (Auto) 0.3 (0.0-0.4) % Neut % (Auto) 76.3 H (45-73) % Lymph % (Auto) 13.5 L (20-40) % [place] % (Auto) 9.2 (2-11) % Eos % (Auto) 0.6 (0-4) % Baso % (Auto) 0.1 (0-2) % Lymph # (Auto) 1.2 (1.2-4.9) X10*3/uL [place] # (Auto) 0.8 (0.1-1.2) X10*3/uL Eos # (Auto) 0.1 (0.0-0.4) X10*3/uL Baso # (Auto) 0.0 (0.0-0.2) X10*3/uL Abs Immat Gran (auto) 0.03 (0.00-0.03) X10*3/uL Absolute Neuts (auto) 6.8 (2.0-8.3) x10*3/uL Absolute Nucleated RBC 0.000 (0.0-0.012) X10*3/uL Nucleated RBC % (auto) 0.0 (0.0-0.2) /100WBC Sodium 140 (135-145) mmol/L Potassium 4.5 (3.3-5.1) mmol/L Chloride 105 (96-108) mmol/L Carbon Dioxide 27 (22-29) mmol/L Anion Gap 13 (12-20) BUN 23 H (9-16) mg/dL Creatinine 0.79 (0.5-1.4) mg/dL Estim Creat Clear Calc 85.3 Estimated GFR > 60 Random Glucose 110 (60-115) mg/dL Calcium 8.7 (8.4-10.2) mg/dL Magnesium 2.0 (1.6-2.6) mg/dL Total Bilirubin 0.8 (0.0-1.0) mg/dL Direct Bilirubin 0.3 (0.0-0.5) mg/dL AST 21 (5-37) U/L ALT 18 (0-40) U/L Alkaline Phosphatase 117 (39-117) U/L Total Protein 7.2 (6.5-8.0) g/dL Albumin 3.6 (3.5-5.0) g/dL Independent Interpretation I performed an independent interpretation of an: EKG Interpretation: Rate: 69 Rhythm: afib [place]: normal Normal QRS complex. ST T wave : no LASHON, q wave in lead III qTC: 409 prior studies: no acute ischemia The study has been interpreted contemporaneously by me. . Radiology Impression Discussion of test interpretation with radiology: I have reviewed the radiologist's reading. Independent Historian Clinical information obtained from an independent historian. History obtained from or confirmed by: Other External Record Review External record reviewed: Inpatient record and Outpatient record Discharge Plan Discharge Clinical Impression: Chronic hypotension Patient Disposition: Home, Self-Care Instructions: Hypotension (ED) Additional Instructions: labs reassuring AT THIS TIME CUT THE METOPROLOL IN HALF FROM 50MG TWICE A DAY TO 25MG TWICE A DAY CHECK YOUR BLOOD PRESSURE IN THE AM AND AT NIGHT SEEK MEDICAL CARE IF IT IS BELOW 100 ON THE TOP NUMBER OR YOU ARE FEELING WEAK AND DIZZY RETURN FOR ANY OTHER CONCERNS OR ISSUES Prescriptions: No Action (DME) OXYGEN 2 L NC keep sats > 90 See Rx Instructions .Route .MEDSUPPLY Qty: 1 0RF Rx Instructions: As directed (DME) PORTABLE OXYGEN TANK See Rx Instructions .Route .MEDSUPPLY Qty: 1 0RF Rx Instructions: As directed cyanocobalamin (vitamin B-12) [Vitamin B-12] 1,000 mcg tablet 1,000 mcg PO DAILY Qty: 90 3RF atorvastatin 80 mg tablet 80 mg PO BEDTIME Qty: 90 2RF diltiazem HCl 180 mg capsule,ext.rel 24h degradable 180 mg PO DAILY Qty: 90 3RF Eliquis 5 mg tablet 5 mg PO BID 90 Days Qty: 180 3RF levothyroxine 50 mcg tablet 50 mcg PO DAILY@0600 Qty: 90 2RF tamsulosin 0.4 mg capsule 0.8 mg PO DAILY Qty: 60 3RF cholecalciferol (vitamin D3) 50 mcg (2,000 unit) capsule 50 mcg PO DAILY Qty: 90 3RF digoxin 125 mcg (0.125 mg) tablet 125 mcg PO 3XW Qty: 36 4RF (DME) compress.stocking,knee,reg,med Misc See Rx Instructions .Route Qty: 2 0RF Rx Instructions: As directed 20-30 mm HG ferrous sulfate 325 mg (65 mg iron) tablet,delayed release (DR/EC) 325 mg PO DAILY 90 Days Qty: 90 1RF famotidine 20 mg tablet 20 mg PO BID 90 Days Qty: 180 1RF Humira(CF) Pen 40 mg/0.4 mL pen injector kit 40 mg subcut Q2W Rx Instructions: Every 2 weeks on SA or TOLBERT clopidogrel 75 mg tablet 75 mg PO DAILY Rx Instructions: Take 4 tablets today and start taking 1 tablet daily from tomorrow. 02/2024 potassium chloride [Klor-Con 10] 10 mEq tablet extended release 10 meq PO BID Qty: 60 1RF metoprolol tartrate 25 mg tablet 50 mg PO BID 30 Days Qty: 120 5RF Rx Instructions: two tablets twice daily furosemide [Lasix] 20 mg tablet 40 mg PO QAM Qty: 120 5RF doxycycline hyclate 100 mg capsule 100 mg PO BID 7 Days Qty: 14 0RF Breztri Aerosphere 160-9-4.8 mcg/actuation HFA aerosol inhaler 2 inh inhalation BID Qty: 10.7 6RF diclofenac sodium [Arthritis Pain (diclofenac)] 1 % gel 4 g topical QID Qty: 100 3RF Rx Instructions: apply to single knee, ankle, foot; for foot includes sole/toes/top of foot Print Language: Divehi
--- OUTSIDE RECORDS SUMMARY | 2024-06-05 09:16 | XMS_ITS | Patient Health Record ---
Author Organization [facility] Address [address] [place] [address] Care Team Providers Care Home Health Nurse Name Role Phone Oswaldo Delgado MD Primary Care Provider Ever Colmenares [phone] ALLERGIES Allergen (clinical drug ingredient) Drug/Non Drug [...] W/U Status Risk SNOMED Code Notes Problem detention current use of anticoagulant (Z79.01) Active confirmed 519152732 Problem Encounter for screening for malignant neoplasm of colon (Z12.11) Active confirmed 243806798 Problem Diverticulosis of colon (K57.30) Active confirmed Diverticulosi s of colon (824646457) Problem Esophageal dysphagia (R13.19) Active confirmed 48003980 PLAN OF TREATMENT Pending Test Test Name Order Date XR BARIUM SWALLOW-ESOPHAGUS 05/23/2022 Future Test Test Name Order Date COLONOSCOPY 04/27/2021 Insurance Providers Payer Name Payer Address Payer Phone Subscriber Number Group Number Insured Name Patient Relationship to Insured Coverage Start Date Coverage End Date MEDICARE OF [place] [address] [place] [address] [phone] [id number] FAISAL ARELLANO Self - patient is the insured MEDEX ATTN CLAIMS [address] [place] [address] [id number] FAISAL ARELLANO Self - patient is the insured MEDICAL (GENERAL) HISTORY Medical History History ICD Code Ascending aortic aneurysm COPD Coronary artery disease--[place] and 2 stents in 2019-Dr. Jean-Baptiste Osteoporosis Psoriasis - on humira pulmonary nodule Renal stones Thyroid nodule Vitamin D deficiency Wedge compression fracture of T9 vertebr a Hypertension Afib Denies DM,CVA,renal disease Negative screening colonoscopy in 2007 Colonoscopy 05/2020 with a small tubular adenoma removed Surgical History Surgery Date(Month/Year) Appendectomy Tonsillectomy Lung biopsy 11/22/2016 Thyroid-benign
[2024-06-05 10:08] LABS: MANUAL DIFF FLAG NO
[2024-06-05 10:12] LABS: Basophils Percent Auto 0.1 % (0-2); Eosinophils Absolute Auto 0.1 X10*3/uL (0.0-0.4); Eosinophils Percent Auto 0.6 % (0-4); Hematocrit 34.2 % (42.0-52.0); Hemoglobin 11.4 g/dl (14.0-18.0); Imm Gran Abs Auto 0.03 X10*3/uL (0.00-0.03); Imm Gran Pct Auto 0.3 % (0.0-0.4); Lymphocytes Absolute Auto 1.2 X10*3/uL (1.2-4.9); Lymphocytes Percent Auto 13.5 % (20-40); Mean Corpuscular HGB Conc 33.3 g/dl (31.0-36.0); Mean Corpuscular Hemoglobin 34.8 pg (27.0-33.0); Mean Corpuscular Volume 104.3 fL (80.0-98.0); Mean Platelet Volume 9.1 fL (9.4-12.4); Monocytes Absolute Auto 0.8 X10*3/uL (0.1-1.2); Monocytes Percent Auto 9.2 % (2-11); Neutrophils Absolute Auto 6.8 x10*3/uL (2.0-8.3); Neutrophils Percent Auto 76.3 % (45-73); Platelet Count 144 X10*3/uL (160-400); Red Blood Count 3.28 X10*6/uL (4.60-5.80); Red Cell Distribution Width 14.9 % (11.0-16.0); White Blood Count 8.9 X10*3/uL (4.8-10.8)
[2024-06-05 10:29] LABS: Alanine Aminotransferase 18 U/L (0-40); Albumin Level 3.6 g/dL (3.5-5.0); Alkaline Phosphatase 117 U/L (39-117); Anion Gap 13 (12-20); Aspartate Amino Transferase 21 U/L (5-37); Bilirubin Direct 0.3 mg/dL (0.0-0.5); Bilirubin Total 0.8 mg/dL (0.0-1.0); Blood Urea Nitrogen 23 mg/dL (9-16); Calcium 8.7 mg/dL (8.4-10.2); Carbon Dioxide 27 mmol/L (22-29); Chloride 105 mmol/L (96-108); Creatinine Clr Calc Pharmacy 85.3; Estimated Glomerular Filt Rate > 60; Glucose Random 110 mg/dL (60-115); Potassium 4.5 mmol/L (3.3-5.1); Sodium 140 mmol/L (135-145); Total Protein 7.2 g/dL (6.5-8.0)
[2024-06-05 11:36] VITALS: BP 125/71; PULSE 72; RESP 18; TEMP 36.6; O2SAT 98
== END 2024-06-05 11:41 | disposition home or self-care (01) ==
PROVIDERS: Emergency Provider Emergency Medicine; PCP Internal Medicine
DX: I95.9 Hypotension, unspecified (principal); I48.91 Unspecified atrial fibrillation; J44.9 Chronic obstructive pulmonary disease, unspecified; I25.10 Atherosclerotic heart disease of native coronary artery without angina pectoris; R94.31 Abnormal electrocardiogram [ECG] [EKG]; R42 Dizziness and giddiness; Z99.81 Dependence on supplemental oxygen; Z79.899 Other long term (current) drug therapy; Z79.01 Long term (current) use of anticoagulants; Z87.891 Personal history of nicotine dependence
CPT/HCPCS: 36415; 80048; 80076; 83735; 85025; 93005; 99283; 99284

== ENCOUNTER → 2024-06-05 08:29 | Outpatient (BNV) | payer MEDICARE, SELFPAY ==
[2024-02-07 11:25] VITALS: BMI 32.0
== END ==
PROVIDERS: Emergency Provider Emergency Medicine; PCP Internal Medicine; Visit Provider Internal Medicine Cardiovascular Disease
DX: I48.91 Unspecified atrial fibrillation (principal)
CPT/HCPCS: 93010

== ENCOUNTER 2024-06-12 04:50 | Emergency (ER) | payer MEDICARE, SELFPAY ==
[2024-02-07 11:25] VITALS: BMI 32.0
[2024-06-12] VITALS (8 sets, daily range): BP systolic 97–134; BP diastolic 59–85; PULSE 74–115; RESP 16–20; TEMP 36.4–37.1; O2SAT 99–100; BMI 29.8
--- NOTE | 2024-06-12 | ECG_ITS ---
Test Reason : TACHY Blood Pressure : */* mmHG Vent. Rate : 94 BPM Atrial Rate : * BPM P-R Int : * ms QRS Dur : 78 ms QT Int : 336 ms P-R-T Axes : * 7 28 degrees QTcB Int : 420 ms Atrial fibrillation Abnormal ECG When compared with ECG of 05-Jun-2024 09:47, No significant change was found Referred By: Generic ED Physician Electronically Signed By: AUTUMN MANCINI
--- NOTE | ~2024-06-12 | CT_ITS ---
EXAMINATION: CT HEAD WITHOUT CONTRAST CLINICAL INFORMATION: ligheadedness COMPARISON: None available. TECHNIQUE: Contiguous axial imaging was performed from the skull base to vertex without intravenous administration of contrast. This CT examination was performed using dose optimization techniques as appropriate, variously including the following: *Automated exposure control *Adjustment of mA and/or kV according to patient size (this includes techniques or standardized protocols for targeted exams where dose is matched to indication/reason for exam; i.e. extremities or head) *Use of iterative reconstruction technique DLP: 706 mGy-cm FINDINGS: No acute intracranial hemorrhage, mass effect, midline shift, hydrocephalus or herniation. [place]-white matter differentiation is normal. Posterior cranial fossa contents demonstrated no acute intracranial hemorrhage or mass effect. Calcified plaques in the cavernous supracavernous segments both ICAs. Bony calvarium is intact. Tympanic cavities and mastoid cells are aerated. Small retention cysts versus polyp, left maxillary sinus. Sellar/suprasellar region demonstrated no gross masses. Craniocervical junction is intact. CT/CT head/brain wo IV con IMPRESSION: No acute intracranial hemorrhage. Acute stroke/nonhemorrhagic ischemia cannot be excluded. Electronically signed by: Grayson Mosher MD 06/12/2024 11:09 AM [facility]
[2024-06-12 05:17] LABS: MANUAL DIFF FLAG NO
[2024-06-12 05:18] LABS: Basophils Percent Auto 0.1 % (0-2); Eosinophils Absolute Auto 0.1 X10*3/uL (0.0-0.4); Eosinophils Percent Auto 0.9 % (0-4); Hematocrit 35.9 % (42.0-52.0); Hemoglobin 11.9 g/dl (14.0-18.0); Imm Gran Abs Auto 0.03 X10*3/uL (0.00-0.03); Imm Gran Pct Auto 0.4 % (0.0-0.4); Lymphocytes Percent Auto 14.9 % (20-40); Mean Corpuscular HGB Conc 33.1 g/dl (31.0-36.0); Mean Corpuscular Hemoglobin 34.3 pg (27.0-33.0); Mean Corpuscular Volume 103.5 fL (80.0-98.0); Mean Platelet Volume 8.9 fL (9.4-12.4); Monocytes Absolute Auto 0.6 X10*3/uL (0.1-1.2); Monocytes Percent Auto 8.3 % (2-11); Neutrophils Absolute Auto 5.1 x10*3/uL (2.0-8.3); Neutrophils Percent Auto 75.4 % (45-73); Platelet Count 143 X10*3/uL (160-400); Red Blood Count 3.47 X10*6/uL (4.60-5.80); White Blood Count 6.8 X10*3/uL (4.8-10.8)
[2024-06-12 05:33] LABS: Alanine Aminotransferase 20 U/L (0-40); Albumin Level 3.7 g/dL (3.5-5.0); Alkaline Phosphatase 123 U/L (39-117); Anion Gap 13 (12-20); Aspartate Amino Transferase 21 U/L (5-37); Bilirubin Total 0.8 mg/dL (0.0-1.0); Blood Urea Nitrogen 25 mg/dL (9-16); Calcium 8.7 mg/dL (8.4-10.2); Carbon Dioxide 24 mmol/L (22-29); Chloride 106 mmol/L (96-108); Creatinine Clr Calc Pharmacy 85.6; Estimated Glomerular Filt Rate > 60; Glucose Random 147 mg/dL (60-115); Potassium 3.7 mmol/L (3.3-5.1); Sodium 139 mmol/L (135-145); Total Protein 7.4 g/dL (6.5-8.0)
[2024-06-12 05:39] LABS: Troponin-I High Sensitivity 3.3 ng/L (<3.5-35.0)
--- OUTSIDE RECORDS SUMMARY | 2024-06-12 07:41 | XMS_ITS | Data Portability ---
Author Organization [facility], [address] Address [address] [place] [address] Assessment No assessment recorded. Plan of Treatment [...] By Organization Details Last Modified Time 05/18/2022 [id number] cuts: care instructions [email or web address] Not available 05/18/2022 [...] Address Organization Details Recorded Time Atrial fibrillation 65145104 Active 2022 Malika Randolph null, PA - [facility] 3 13:50:16 Chronic obstructive pulmonary disease 66182750 Active 2022 Malika Shana null, PA - [facility] 3 13:50:20 Hypertensive disorder 70451733 Active 2022 Malika Randolph null, PA - [facility] 3 13:50:27 Hyperlipidemia 64180117 Active 2022 Malika Shana null, PA - [facility] 3 13:50:33 Problem Notes None recorded. Medical Equipment None Reported. Allergies Allergen ID Allergen Name Allergen Category Reaction Reaction Severity Criticality Documentation Date Start Date Code Code System Note Provider Name and Address Organization Details Recorded Time 034580 Product containin g penicilli n (product) medicatio n anaphylax is Not available high 05/18/2022 38501 8001 SNOMED Malika Randolph null, PA - [facility] 3 13:49:54 [...] and Address Organization Details Last Updated DateTime 3 172.72 cm 31.9 kg/m2 56437.4 g 95 % 95 % 97 /min 20 /min 97.5 [degF] 167 mm[Hg] 94 mm[Hg] Malika Pachecobe PA - [facility] 13:55:29 Social History Question Answer Notes LastModified by Organizat ion Details LastModified Time Tobacco Smoking Status Former Smoker Malika Shana hayes PA - [facility] 05/18/2022 13:50:42 [...] SNOMED-CT Code Diagnosis ICD10 Code Diagnosis Note [id number] [address] [place] [address] 05/04/2019 10:15:48 05/04/2019 11:04:20 [id number] [address] [place] [address] 08/22/2017 10:46:43 08/22/2017 11:28:26 [id number] [address] [place] [address] 11/06/2019 08:12:57 11/06/2019 08:47:49 [id number] [address] [place] [address] 09/10/2018 10:01:20 09/10/2018 11:14:04 [id number] [address] [place] [address] 11/07/2019 08:20:04 11/07/2019 10:41:03 [id number] 20995Jose Mejíar [address] [facility] [place] [address] 03/02/2020 09:28:03 03/02/2020 11:43:55 [id number] 2099Yolande Mej[address]ar [facility] [place] [address] 11/04/2019 08:03:33 11/04/2019 09:40:15 [id number] Donavan Hankins DO [address] [facility] [place] [address] 05/18/2022 13:41:02 05/18/2022 14:28:46 Laceration of left hand [id number] S61.412A following oral consent wound was cleaned [...] [place] [employer] Edward P Halton [id number] Edward P Halton 11/04/2019 2 [place] [id number] Edward P Halton [id number] Edward P Halton 11/06/2019 1 [place] B[place] [employer] Edward P Halton [id number] 5 Edward P Halton 11/06/2019 2 [place] [id number] Edward P Halton [id number] 87 Edward P Halton 11/07/2019 1 [place] [employer] Edward P Halton [id number] 5 Edward P Halton 11/07/2019 2 [place] [id number] Edward P Halton [id number] Edward P Halton 03/02/2020 1 [place] B[place] [facility] GOVERNMENT SERVICES Edward P Halton [id number] 5 Edward P Halton 03/02/2020 2 [place] [id number] Edward P Halton [id number] Edward P Halton 05/18/2022 1 [place] B[place] [facility] GOVERNMENT SERVICES Edward P Halton [id number] 5 Edward P Halton 05/18/2022 2 [place] [id number] Edward P Halton [id number] Edward P Halton Notes Date Note Type Note Provider Name and Address Organization Details Recorded Time 05/18/2022 text/html UC Wound/LacerationRep orted bypatient.Notes:76 yo malescratched by his house mailk plavix and eliquisstill bleedingtried band aids w/o improvementno f/c/n/vminimal pain no CPno SOBno Hano dizzinessno f/c/n/v Donavan Hankins, DO [address] [place], [address], PA - [facility] 05/18/2022 14:30:26
--- OUTSIDE RECORDS SUMMARY | 2024-06-12 07:41 | XMS_ITS | Patient Health Record ---
Author Organization [facility] Address [address] [place] [address] Care Team Providers Care Ground Instructor Advanced Name Role Phone Oswaldo Delgado MD Primary Care Provider Ever Colmenares [phone] ALLERGIES Allergen (clinical drug ingredient) Drug/Non Drug [...] current use of anticoagulant (Z79.01) Active confirmed 032259476 Problem Encounter for screening for malignant neoplasm of colon (Z12.11) Active confirmed 435420387 Problem Diverticulosis of colon (K57.30) Active confirmed Diverticulosi s of colon (716239595) Problem Esophageal dysphagia (R13.19) Active confirmed 80318842 PLAN OF TREATMENT Pending Test Test Name Order Date XR BARIUM SWALLOW-ESOPHAGUS 05/23/2022 Future Test Test Name Order Date COLONOSCOPY 04/27/2021 Insurance Providers Payer Name Payer Address Payer Phone Subscriber Number Group Number Insured Name Patient Relationship to Insured Coverage Start Date Coverage End Date MED[place]ARE OF [place] [address] [place] [address] [id number] FAISAL ARELLANO Self - patient is the insured MED[employer] ATTN CLAIMS [address] [place] [address] [id number] FAISAL ARELLANO Self - patient is the insured MEDICAL (GENERAL) HISTORY Medical History History ICD Code Ascending aortic aneurysm COPD Coronary artery disease--[place] and 2 stents in 2019-Dr. Jean-Baptiste Osteoporosis Psoriasis - on humira pulmonary nodule Renal stones Thyroid nodule Vitamin D deficiency Wedge compression fracture of T9 vertebr a Hypertension Afib Denies DM,CVA,renal disease Negative screening colonoscopy in 2007 Colonoscopy 05/2020 with a small tubular adenoma removed Surgical History Surgery Date(Month/Year) Appendectomy Tonsillectomy Lung biopsy 11/22/2016 Thyroid-benign
--- NOTE | 2024-06-12 10:39 | ED_ITS ---
HPI - General Adult General Chief complaint: General Medical Stated complaint: High blood pressure Time Seen by Provider: 06/12/24 09:51 History of Present Illness ED Provider: Willie Burrows HPI narrative: 78-year-old male history of AFib, COPD oxygen dependent as needed, AAA, macrocytic anemia, hypertension presents to ED for elevated blood pressure and lightheadedness since yesterday. Patient states yesterday afternoon after eating pickle sandwich with very salty tuna fish sandwich his blood pressure was elevated systolic of 160s to 170s. Patient states the morning felt lightheaded but denies any sensation of room spinning, dizziness, slurred speech, facial droop, paralysis of extremities, nausea, or vomiting. Patient denies ever having chest pain, chest pain radiating to the back shortness of breath or abdominal pain. Patient denies having any headache. Patient denies ever having loss of vision. Patient states lightheadedness this morning when woke up but then resolved. Presently patient is asymptomatic. Patient denies ever having dizziness. Patient went to have his blood pressure checked. Patient denies any rectal bleeding or coughing up blood. Related Data Home Medications ?Medication ?Instructions ?Recorded ?Confirmed adalimumab 40 mg/0.4 mL 40 mg subcut Q2W 10/10/22 05/14/24 subcutaneous pen kit (Humira(CF) Pen) clopidogrel 75 mg tablet 75 mg PO DAILY 04/16/24 05/14/24 Previous Rx's ?Medication ?Instructions ?Recorded OXYGEN 2 L NC keep sats > 90 #1 ea 02/12/22 PORTABLE OXYGEN TANK #1 ea 02/22/22 compress.stocking,knee,reg,med #2 ea 04/10/22 cyanocobalamin (vitamin B-12) 1,000 mcg PO DAILY #90 tabs 05/26/23 1,000 mcg tablet (Vitamin B-12) atorvastatin 80 mg tablet 80 mg PO BEDTIME #90 tabs 10/05/23 diltiazem HCl 180 mg 180 mg PO DAILY #90 caps 12/03/23 capsule,extended release 24 hr, controlled famotidine 20 mg tablet 20 mg PO BID 90 days #180 tabs 12/31/23 ferrous sulfate 325 mg (65 mg 325 mg PO DAILY 90 days #90 tabs 12/31/23 iron) tablet,delayed release apixaban 5 mg tablet (Eliquis) 5 mg PO BID 90 days #180 tabs 01/03/24 levothyroxine 50 mcg tablet 50 mcg PO DAILY@0600 #90 tabs 03/24/24 tamsulosin 0.4 mg capsule 0.8 mg (2 x 0.4 mg) PO DAILY #60 04/29/24 caps furosemide 20 mg tablet (Lasix) 40 mg (2 x 20 mg) PO QAM #120 tabs 05/13/24 metoprolol tartrate 25 mg tablet 50 mg (2 x 25 mg) PO BID 30 days 05/13/24 #120 tabs doxycycline hyclate 100 mg capsule 100 mg PO BID 7 days #14 caps 05/14/24 diclofenac sodium 1 % topical gel 4 g topical QID #100 grams 05/18/24 (Arthritis Pain (diclofenac)) cholecalciferol (vitamin D3) 50 50 mcg PO DAILY #90 caps 06/01/24 mcg (2,000 unit) capsule digoxin 125 mcg (0.125 mg) tablet 125 mcg PO 3XW #36 tabs 06/04/24 budesonide 160 mcg-glycopyr 9 2 inh inhalation BID #10.7 grams 06/09/24 mcg-formot 4.8 mcg/actuation HFA inhaler (Breztri Aerosphere) potassium chloride 10 mEq 10 meq PO BID #60 tabs 06/09/24 tablet,extended release (Klor-Con) nitrofurantoin 100 mg PO Q12H 7 days #14 caps 06/12/24 monohydrate/macrocrystals 100 mg capsule (Macrobid) Allergies Allergy/AdvReac Type Severity Reaction Status Date / Time Penicillins Allergy Severe Anaphylaxis Verified 06/12/24 04:55 hydrochlorothiazide Allergy Unknown Unknown Verified 06/12/24 04:55 lisinopril Allergy Unknown Unknown Verified 06/12/24 04:55 regadenoson [From Lexiscan] AdvReac Bradycardic Verified 06/12/24 04:55 Review of Systems 2 Review of Systems: Resolved lightheadedness. High blood pressure Yes all other systems are reviewed and are negative [facility] Past Medical History Medical History Atrial fibrillation with rapid ventricular response Supplemental oxygen dependent ILD (interstitial lung disease) COPD (chronic obstructive pulmonary disease) Tubular adenoma of colon (~2022) Postoperative hypothyroidism Obesity (BMI 30-39.9) Atrial fibrillation Chest discomfort Bronchitis Hemoptysis HOLLOWAY (dyspnea on exertion) Abnormal SPEP Multinodular thyroid Swelling of left lower extremity Pulmonary nodules/lesions, multiple Ground glass opacity present on imaging of lung Wedge compression fracture of T9 vertebra (~2019) Coronary artery disease Hypertension Right renal stone Thyroid nodule Vitamin D deficiency Ascending aorta dilatation Obesity (BMI 30-39.9) Psoriasis Hypercholesterolemia Former smoker Stable angina Surgical History Status post AAA (abdominal aortic aneurysm) repair Hx of bilateral cataract extraction (~2022) History of partial thyroidectomy (~2020) History of heart artery stent (~2019) History of colonoscopy History of cardioversion (~2020) History of appendectomy History of tonsillectomy History of lung biopsy (~2016) Family History Family History Father Heart disease Mother Throat cancer Paternal Grandfather Heart disease Social History Social History Household Members: Spouse Housing: House Are you a primary special needs caregiver to a significant other at home: No Do you presently have visiting nurse or other home services: No Unable to assess alcohol history related to: Unknown Alcohol intake: former Year quit: 2014 Patient Tobacco Use Status: Former Tobacco user Tobacco use type: Cigarette Years Smoked: 50 e-Cigarette/Vaping Use: Former Use Second Hand Smoke Exposure: Yes Advance Directives Date on File: 09/21/20 service: Yes Current occupational status: retired Cognitive needs: No Hearing needs: No Vision needs: Yes (Glasses) Physical Exam ED Vital Signs: Vital Signs - 24 hr 06/12/24 04:54 06/12/24 07:32 06/12/24 09:08 Temperature 97.6 F 98.7 F 97.8 F Pulse Rate 115 H 91 86 Respiratory Rate 20 18 18 Blood Pressure 134/81 99/59 L 102/68 Pulse Oximetry 99 99 100 Oxygen Delivery Method Room Air Nasal Cannula Nasal Cannula Oxygen Flow Rate 2 2 06/12/24 10:13 06/12/24 10:21 06/12/24 10:24 Temperature Pulse Rate 74 81 100 Respiratory Rate Blood Pressure 126/83 119/76 97/80 Pulse Oximetry Oxygen Delivery Method Oxygen Flow Rate 02/21/25 12:00 06/12/24 13:54 Temperature 98.4 F 98.4 F Pulse Rate 94 94 Respiratory Rate 16 16 Blood Pressure 126/85 126/85 Pulse Oximetry 100 100 Oxygen Delivery Method Nasal Cannula Nasal Cannula Oxygen Flow Rate 2 2 BMI result Body Mass Index 29.8 Const General: cooperative, healthy appearing, comfortable, no acute distress, well developed, alert, awake and Physically active Orientation/consciousness: patient oriented x3 [facility] Head: Yes normal to inspection, Yes No palpable skull fracture present, Yes normocephalic and Yes atraumatic Eyes General: appearance normal, both eyes and all related structures Neck Neck: Yes normal visual inspection, Yes full ROM, Yes no lymphadenopathy, Yes no meningeal signs, Yes trachea midline, Yes supple, No anterior neck swelling and No tender Chest Chest palpation & inspection: normal inspection of the chest and normal palpation of entire chest wall Resp Effort & Inspection: normal respiratory effort and able to speak in complete sentences Auscultation: clear to auscultation bilaterally Cardio Jugular venous distension: no JVD Heart sounds: S1 normal heart sound present and S2 normal heart sound present GI Inspection: Yes normal to inspection Palpation (GI): Soft to palpation, not firm, nontender, no guarding and not rigid General: Yes no CVA tenderness Back/Spine/Pelvis Back: no CVA tenderness and No ecchymosis Skin General skin exam: no rashes or lesions noted, elasticity normal and turgor normal Neuro General: patient oriented x3, gait normal, tone normal, moves all extremities, Normal light touch and pain sensation, no meningeal signs, no focal motor deficits and CN's II-XI intact bilaterally Extrem Other: Bilateral lower extremity negative for swelling, pitting edema, or calf tenderness General: Yes normal to inspection, Yes full ROM and Yes capillary refill normal Psych Appearance: grossly normal, well kempt and not disheveled NIH Stroke Scale Internal: Initial- Upon Arrival Level of Consciousness: Alert Level of Consciousness Questions: Answers both questions correctly Level of Consciousness Commands: Performs both tasks correctly Best Gaze: Normal Visual: No visual loss Facial Palsy: Normal Motor Arm (Right): No drift Motor Arm (Left): No drift Motor Leg (Right): No drift Motor Leg (Left): No drift Limb Ataxia: Absent Sensory: Normal Best Language: No aphasia Dysarthia: Normal Extinction and Inattention: No abnormality Score: 0 Medical Decision Making Medical Decision Making MDM Narrative: 78-year-old male presents to ED for elevated blood pressure and resolved lightheadedness. Presently patient is asymptomatic. Blood pressure is normal controlled. NIH score is 0. Negative for any neuro deficits. Negative Romberg test. Patient has normal gait. Will do head CT scan troponin orthostatics. Initial troponin negative. EKG shows AFib rate control. 11:39am: 2nd troponin negative. Head CT scan normal. Orthostatics negative. BnP pending. 1:29pm: Patient BNP came back baseline. Patient is alert oriented x3 has no neuro deficits. Patient is not having any abdominal pain. not suspecting any aortic dissection or ruptured abdominal aortic aneurysm. Case was discussed with Dr. Wyatt who states patient could be discharged and have outpatient for further workup ( ultrasounds of carotid) and does not believe patient is having a stroke or TiA. History physical exam does not indicate a stroke. Patient was educated on getting a carotid ultrasound due to CT scan reading of plaques in the ICAs. Patient denies any dizziness. Not suspecting OH, PE, posterior cervical stroke, meningitis, encephalitis, pericarditis, myocarditis, carotid dissection, cardiac tamponade, or any other life-threatening etiology. Patient explained worrisome signs and informed to return to the ED immediately. Patient informed to record blood pressures to shows primary care provider. Patient informed to keep recording of his blood pressure at least twice a day to shows primary care provider. Patient presently asymptomatic. UA shows UTI Differential Diagnosis Differential Diagnoses: The differential diagnosis associated with the presentation includes (OH, orthostatics, kidney injury, hypertensive crisis,) Admission/Observation Consideration of admission/observation: Escalation of care including admission/observation considered Lab Data [facility] Lab Attestation statement: I reviewed the patient's lab results. 06/12/24 05:13 06/12/24 05:13 Labs: Lab Results 06/12/24 06/12/24 06/12/24 Range/Units 05:13 10:29 12:31 WBC 6.8 (4.8-10.8) X10*3/uL RBC 3.47 L (4.60-5.80) X10*6/uL Hgb 11.9 L (14.0-18.0) g/dl Hct 35.9 L (42.0-52.0) % MCV 103.5 H (80.0-98.0) fL MCH 34.3 H (27.0-33.0) pg MCHC 33.1 (31.0-36.0) g/dl RDW 15.0 (11.0-16.0) % Plt Count 143 L (160-400) X10*3/uL MPV 8.9 L (9.4-12.4) fL Immature Gran % (Auto) 0.4 (0.0-0.4) % Neut % (Auto) 75.4 H (45-73) % Lymph % (Auto) 14.9 L (20-40) % Lyman % (Auto) 8.3 (2-11) % Eos % (Auto) 0.9 (0-4) % Baso % (Auto) 0.1 (0-2) % Lymph # (Auto) 1.0 L (1.2-4.9) X10*3/uL Lyman # (Auto) 0.6 (0.1-1.2) X10*3/uL Eos # (Auto) 0.1 (0.0-0.4) X10*3/uL Baso # (Auto) 0.0 (0.0-0.2) X10*3/uL Abs Immat Gran (auto) 0.03 (0.00-0.03) X10*3/uL Absolute Neuts (auto) 5.1 (2.0-8.3) x10*3/uL Absolute Nucleated RBC 0.000 (0.0-0.012) X10*3/uL Nucleated RBC % (auto) 0.0 (0.0-0.2) /100WBC PT 16.5 H D (10.9-12.4) SEC INR 1.4 H (0.9-1.1) APTT 38.8 H (26.0-36.8) SEC Sodium 139 (135-145) mmol/L Potassium 3.7 (3.3-5.1) mmol/L Chloride 106 (96-108) mmol/L Carbon Dioxide 24 (22-29) mmol/L Anion Gap 13 (12-20) BUN 25 H (9-16) mg/dL Creatinine 0.77 (0.5-1.4) mg/dL Estim Creat Clear Calc 85.6 Estimated GFR > 60 Random Glucose 147 H (60-115) mg/dL Calcium 8.7 (8.4-10.2) mg/dL Total Bilirubin 0.8 (0.0-1.0) mg/dL AST 21 (5-37) U/L ALT 20 (0-40) U/L Alkaline Phosphatase 123 H (39-117) U/L Troponin I High Sens 3.3 2.9 (<3.5-35.0) ng/L B-Natriuretic Peptide 319 H (<100) pg/mL Total Protein 7.4 (6.5-8.0) g/dL Albumin 3.7 (3.5-5.0) g/dL Urine Color Urine Appearance Urine pH (5.0-9.0) Ur Specific [place] (1.005-1.025) Urine Protein (Neg-Trace) mg/dL Urine Glucose (UA) (Negative) mg/dL Urine Ketones (Negative) mg/dL Urine Blood (Negative) Urine Nitrite (Negative) Ur Leukocyte Esterase (Negative) Urine RBC (0-2) /HPF Urine WBC (0-5) /HPF Ur Squamous Epith Cells (0-2) /HPF Urine Bacteria (None Seen) Hyaline Casts (0-2) /LPF 06/12/24 Range/Units 12:32 WBC (4.8-10.8) X10*3/uL RBC (4.60-5.80) X10*6/uL Hgb (14.0-18.0) g/dl Hct (42.0-52.0) % MCV (80.0-98.0) fL MCH (27.0-33.0) pg MCHC (31.0-36.0) g/dl RDW (11.0-16.0) % Plt Count (160-400) X10*3/uL MPV (9.4-12.4) fL Immature Gran % (Auto) (0.0-0.4) % Neut % (Auto) (45-73) % Lymph % (Auto) (20-40) % Lyman % (Auto) (2-11) % Eos % (Auto) (0-4) % Baso % (Auto) (0-2) % Lymph # (Auto) (1.2-4.9) X10*3/uL Lyman # (Auto) (0.1-1.2) X10*3/uL Eos # (Auto) (0.0-0.4) X10*3/uL Baso # (Auto) (0.0-0.2) X10*3/uL Abs Immat Gran (auto) (0.00-0.03) X10*3/uL Absolute Neuts (auto) (2.0-8.3) x10*3/uL Absolute Nucleated RBC (0.0-0.012) X10*3/uL Nucleated RBC % (auto) (0.0-0.2) /100WBC PT (10.9-12.4) SEC INR (0.9-1.1) APTT (26.0-36.8) SEC Sodium (135-145) mmol/L Potassium (3.3-5.1) mmol/L Chloride (96-108) mmol/L Carbon Dioxide (22-29) mmol/L Anion Gap (12-20) BUN (9-16) mg/dL Creatinine (0.5-1.4) mg/dL Estim Creat Clear Calc Estimated GFR Random Glucose (60-115) mg/dL Calcium (8.4-10.2) mg/dL Total Bilirubin (0.0-1.0) mg/dL AST (5-37) U/L ALT (0-40) U/L Alkaline Phosphatase (39-117) U/L Troponin I High Sens (<3.5-35.0) ng/L B-Natriuretic Peptide (<100) pg/mL Total Protein (6.5-8.0) g/dL Albumin (3.5-5.0) g/dL Urine Color Yellow Urine Appearance Clear Urine pH 6.0 (5.0-9.0) Ur Specific [place] 1.010 (1.005-1.025) Urine Protein Negative (Neg-Trace) mg/dL Urine Glucose (UA) Negative (Negative) mg/dL Urine Ketones Negative (Negative) mg/dL Urine Blood Trace H (Negative) Urine Nitrite Negative (Negative) Ur Leukocyte Esterase Large (3+) H (Negative) Urine RBC 0-2 (0-2) /HPF Urine WBC >50 H (0-5) /HPF Ur Squamous Epith Cells 0-2 (0-2) /HPF Urine Bacteria None Seen (None Seen) Hyaline Casts 0-2 (0-2) /LPF Independent Interpretation I performed an independent interpretation of an: EKG (AFib rate control) and CT Scan Radiology Impression Discussion of test interpretation with radiology: I have reviewed the radiologist's reading. Independent Historian Clinical information obtained from an independent historian. History obtained from or confirmed by: Other (Patient) Discharge Plan Discharge Clinical Impression: Lightheadedness, Hypertension Patient Disposition: Home, Self-Care Instructions: Urinary Tract Infection in Men (ED), Hypertension (ED), Lightheadedness (ED) Additional Instructions: You will need follow-up with your primary care provider. You're ED workup was reassuring. UA shows possible UTI. You will b We will discharge antibiotics. Return to the ED immediately for any dizziness, slurred speech, , facial droop, chest pain, shortness of breath, dizziness, loss of vision, numbness/tingling/paralysis of extremities, or any other concerning symptoms. [place] [id number] CT Scan Report Signed Patient: Pablito Everett MR#: [id number] : 1945 Acct:[id number] Age/Sex: 78 / M ADM Date: 06/12/24 Loc: .ED Attending Dr: Ordering Physician: Willie Burrows Date of Service: 06/12/24 Procedure(s): CT head/brain wo IV con Accession Number(s): [id number] cc: Willie Burrows; Oswaldo Delgado MD~ Report Number: [id number]: Total DLP = 706.00 mGy-cm EXAMINATION: CT HEAD WITHOUT CONTRAST CLINICAL INFORMATION: ligheadedness COMPARISON: None available. TECHNIQUE: Contiguous axial imaging was performed from the skull base to vertex without intravenous administration of contrast. This CT examination was performed using dose optimization techniques as appropriate, variously including the following: *Automated exposure control *Adjustment of mA and/or kV according to patient size (this includes techniques or standardized protocols for targeted exams where dose is matched to indication/reason for exam; i.e. extremities or head) *Use of iterative reconstruction technique DLP: 706 mGy-cm FINDINGS: No acute intracranial hemorrhage, mass effect, midline shift, hydrocephalus or herniation. Matute-white matter differentiation is normal. Posterior cranial fossa contents demonstrated no acute intracranial hemorrhage or mass effect. Calcified plaques in the cavernous supracavernous segments both ICAs. Bony calvarium is intact. Tympanic cavities and mastoid cells are aerated. Small retention cysts versus polyp, left maxillary sinus. Sellar/suprasellar region demonstrated no gross masses. Craniocervical junction is intact. CT/CT head/brain wo IV con IMPRESSION: No acute intracranial hemorrhage. Acute stroke/nonhemorrhagic ischemia cannot be excluded. Electronically signed by: Grayson Mosher MD 06/12/2024 11:09 AM [facility] Dictated By: Grayson Taylor MD Signed By: <Electronically signed by Grayson Yost MD in OV> 06/12/24 1109 Prescriptions: New nitrofurantoin monohyd/m-cryst [Macrobid] 100 mg capsule 100 mg PO Q12H 7 Days Qty: 14 0RF Rx Instructions: must administer with a meal/food No Action (DME) OXYGEN 2 L NC keep sats > 90 See Rx Instructions .Route .MEDSUPPLY Qty: 1 0RF Rx Instructions: As directed (DME) PORTABLE OXYGEN TANK See Rx Instructions .Route .MEDSUPPLY Qty: 1 0RF Rx Instructions: As directed cyanocobalamin (vitamin B-12) [Vitamin B-12] 1,000 mcg tablet 1,000 mcg PO DAILY Qty: 90 3RF atorvastatin 80 mg tablet 80 mg PO BEDTIME Qty: 90 2RF diltiazem HCl 180 mg capsule,ext.rel 24h degradable 180 mg PO DAILY Qty: 90 3RF Eliquis 5 mg tablet 5 mg PO BID 90 Days Qty: 180 3RF levothyroxine 50 mcg tablet 50 mcg PO DAILY@0600 Qty: 90 2RF tamsulosin 0.4 mg capsule 0.8 mg PO DAILY Qty: 60 3RF cholecalciferol (vitamin D3) 50 mcg (2,000 unit) capsule 50 mcg PO DAILY Qty: 90 3RF digoxin 125 mcg (0.125 mg) tablet 125 mcg PO 3XW Qty: 36 4RF potassium chloride [Klor-Con 10] 10 mEq tablet extended release 10 meq PO BID Qty: 60 1RF Breztri Aerosphere 160-9-4.8 mcg/actuation HFA aerosol inhaler 2 inh inhalation BID Qty: 10.7 6RF (DME) compress.stocking,knee,reg,med Misc See Rx Instructions .Route Qty: 2 0RF Rx Instructions: As directed 20-30 mm HG ferrous sulfate 325 mg (65 mg iron) tablet,delayed release (DR/EC) 325 mg PO DAILY 90 Days Qty: 90 1RF famotidine 20 mg tablet 20 mg PO BID 90 Days Qty: 180 1RF Humira(CF) Pen 40 mg/0.4 mL pen injector kit 40 mg subcut Q2W Rx Instructions: Every 2 weeks on SA or TOLBERT clopidogrel 75 mg tablet 75 mg PO DAILY Rx Instructions: Take 4 tablets today and start taking 1 tablet daily from tomorrow. 02/2024 metoprolol tartrate 25 mg tablet 50 mg PO BID 30 Days Qty: 120 5RF Rx Instructions: two tablets twice daily furosemide [Lasix] 20 mg tablet 40 mg PO QAM Qty: 120 5RF doxycycline hyclate 100 mg capsule 100 mg PO BID 7 Days Qty: 14 0RF diclofenac sodium [Arthritis Pain (diclofenac)] 1 % gel 4 g topical QID Qty: 100 3RF Rx Instructions: apply to single knee, ankle, foot; for foot includes sole/toes/top of foot Referrals: [facility] [Provider Group] (Hypertension, resolved lightheadedness) Po,Oswaldo Deng MD [Primary Care Provider] - (Hypertension, resolved lightheadedness, possible UTI) Interventions: ED Discharge Assessment Last Done: 06/12/24 13:54 Discharge Date/Time: 06/12/24 14:03 Print Language: Bolivian
[2024-06-12 10:55] LABS: INTERNATIONAL NORM RATIO 1.4 (0.9-1.1); Prothrombin Time 16.5 SEC (10.9-12.4)
[2024-06-12 10:57] LABS: Partial Thromboplastin Time 38.8 SEC (26.0-36.8)
[2024-06-12 11:16] LABS: Troponin-I High Sensitivity 2.9 ng/L (<3.5-35.0)
[2024-06-12 12:42] LABS: Appearance Urine Clear; Color Urine Yellow; Glucose Urine UA Negative (Negative); Leukocyte Esterase Urine Large (3+) (Negative); Nitrite Urine Negative (Negative); UMIC TRIGGER UACC YES; Urine Blood Trace (Negative); Urine Ketones Negative (Negative); Urine Protein Negative (Neg-Trace)
[2024-06-12 12:47] LABS: Bacteria Urine None Seen (None Seen); Hyaline Casts Urine 0-2 /LPF (0-2); RBC Urine 0-2 /HPF (0-2); Squamous Epithelial Cell Urine 0-2 /HPF (0-2); UACC Culture Trigger YES; WBC Urine >50 /HPF (0-5)
[2024-06-12 13:00] LABS: B Type Natriuretic Peptide 319 pg/mL (<100)
== END 2024-06-12 14:03 | disposition home or self-care (01) ==
PROVIDERS: Physician Assistant; Emergency Provider Emergency Medicine; PCP Internal Medicine
DX: R42 Dizziness and giddiness (principal); I10 Essential (primary) hypertension; R00.0 Tachycardia, unspecified; I48.91 Unspecified atrial fibrillation; R06.02 Shortness of breath; Z79.899 Other long term (current) drug therapy
CPT/HCPCS: 36415; 70450; 80053; 81001; 83880; 84484; 85025; 85610; 85730; 87086; 87088; 87186; 93005; 99284

== ENCOUNTER → 2024-06-12 05:05 | Outpatient (BNV) | payer MEDICARE, SELFPAY ==
[2024-06-12 15:09] VITALS: BMI 32.0
== END ==
PROVIDERS: Emergency Provider Emergency Medicine; PCP Internal Medicine; Visit Provider Internal Medicine
DX: I48.91 Unspecified atrial fibrillation (principal)
CPT/HCPCS: 93010

== ENCOUNTER → 2024-06-12 10:07 | Outpatient (BNV) | payer MEDICARE, SELFPAY ==
[2024-02-07 11:25] VITALS: BMI 32.0
== END ==
PROVIDERS: Emergency Provider Emergency Medicine; PCP Internal Medicine; Visit Provider Radiology Diagnostic Radiology
DX: R42 Dizziness and giddiness (principal)
CPT/HCPCS: 70450

== ENCOUNTER 2024-06-15 07:29 | Outpatient (REF) | payer MEDICARE, SELFPAY ==
[2024-06-12 15:09] VITALS: BMI 32.0
--- NOTE | ~2024-06-15 | CT_ITS ---
EXAMINATION: CT ANGIOGRAM ABDOMEN AND PELVIS CLINICAL INFORMATION: Infrarenal abdominal aortic aneurysm without rupture. COMPARISON: CT angiogram abdomen and pelvis dated October 23, 2023 demonstrated status post aortoiliac stent graft without endoleak. TECHNIQUE: Multiple axial images were obtained through the abdomen and pelvis without and following the administration of 70 mL of Omnipaque 350 intravenous contrast during the arterial phase. Images were reviewed on a dedicated 3-D workstation. No reported immediate complications. This CT examination was performed using dose optimization techniques as appropriate, variously including the following: *Automated exposure control *Adjustment of mA and/or kV according to patient size (this includes techniques or standardized protocols for targeted exams where dose is matched to indication/reason for exam; i.e. extremities or head) *Use of iterative reconstruction technique DLP: 592 mGy centimeter. FINDINGS: There is a 5.9 cm in maximum diameter infrarenal to the distal abdominal aortic diameter/aneurysm. Status post stenting from the origin of the renal arteries to the common iliac arteries. There is no IV contrast extravasation from in the stent. There is a circumferential maximum 2 cm thickness mixed plaque surrounded the stent. There is IV contrast within the lumen of the stent into the iliac arteries. There is IV contrast enhancement of the main renal arteries, the celiac trunk, and the superior mesenteric artery and the inferior mesenteric artery. There is no periaortic fluid collections edema pattern or IV contrast extravasation. There is a contrast enhancement within the common hepatic artery, the splenic artery and to the common femoral arteries. Mixed plaques throughout the visualized vessels. Ancillary findings: Right-sided pleural effusion, moderate volume. Multifocal patchy pulmonary groundglass involving mostly the right lung. Calcified plaques in the coronary arteries, aortic valve and descending thoracic aorta. There are multifocal hypodensities throughout the hepatic parenchyma. There is a subtle nodular surface of the liver. There are numerous diverticula throughout the large intestine mostly in the sigmoid colon. Abundant stool within the large intestine without intestinal obstruction pattern. Small fat-containing umbilical hernia. Dystrophic ossifications in the prostate gland region. Multilevel thoracolumbar spondylosis more conspicuous at T10-11, L3-4 and L5-S1. Grade 1 anterolisthesis at L3-4 on a degenerative basis. Grade 1 anterolisthesis T10-11 on a degenerative basis. Central spinal canal and bilateral neuroforamina stenosis at L3-4. Osteoarthrosis both coxofemoral joints. CT/CT angio abdomen pelvis IMPRESSION: Status post Endo aortoiliac graft stenting without and/or aortoiliac graft leak. 5.9 cm infrarenal abdominal aortic aneurysm. Overall stable. Right-sided pleural effusion, moderate volume and questionable acute on chronic right-sided airspace disease. Nonspecific multifocal hypodense liver lesions. Diverticular disease, left hemicolon. Multilevel thoracolumbar spondylosis more conspicuous at L3-4. Fleischner guidelines were followed. Electronically signed by: Grayson Mosher MD 06/15/2024 08:23 AM SHAG[facility]
--- OUTSIDE RECORDS SUMMARY | 2024-06-15 07:31 | XMS_ITS | Patient Health Record ---
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) Active confirmed 217307031 PLAN OF TREATMENT Pending Test Test Name Order Date XR BARIUM SWALLOW-ESOPHAGUS 05/23/2022 Future Test Test Name Order Date COLONOSCOPY 04/27/2021 Insurance Providers Payer Name Payer Address Payer Phone Subscriber Number Group Number Insured Name Patient Relationship to Insured Coverage Start Date Coverage End Date MEDICARE OF [place] [address] [facility] [place] [address] [id number] FAISAL ARELLANO Self - patient is the insured [employer] ATT[employer] CLAIMS [address] [place] [address] [phone] [id number] FAISAL ARELLANO Self - patient is the insured MEDICAL (GENERAL) HISTORY Medical History History ICD Code Ascending aortic aneurysm COPD Coronary artery disease--NE and 2 stents in 2019-Dr. Jean-Baptiste Osteoporosis Psoriasis - on humira pulmonary nodule Renal stones Thyroid nodule Vitamin D deficiency Wedge compression fracture of T9 vertebr a Hypertension Afib Denies DM,CVA,renal disease Negative screening colonoscopy in 2007 Colonoscopy 05/2020 with a small tubular adenoma removed Surgical History Surgery Date(Month/Year) Appendectomy Tonsillectomy Lung biopsy 11/22/2016 Thyroid-benign
--- OUTSIDE RECORDS SUMMARY | 2024-06-15 07:32 | XMS_ITS | Data Portability ---
Author Organization [facility], [address] Address [address] [place] [address] Assessment No assessment recorded. Plan of Treatment [...] By Organization Details Last Modified Time 05/18/2022 [id number] cuts: care instructions [email or web address] Not available 05/18/2022 [...] Address Organization Details Recorded Time Atrial fibrillation 82359055 Active 2022 Malika [place] null, [place] - [facility] 3 13:50:16 Chronic obstructive pulmonary disease 96852191 Active 2022 Malika Shana null, [place] - [facility] 3 13:50:20 Hypertensive disorder 84818120 Active 2022 Malika [place] null, [place] - [facility] 3 13:50:27 Hyperlipidemia 12841820 Active 2022 Malika Shana null, [place] - [facility] 3 13:50:33 Problem Notes None recorded. Medical Equipment None Reported. Allergies Allergen ID Allergen Name Allergen Category Reaction Reaction Severity Criticality Documentation Date Start Date Code Code System Note Provider Name and Address Organization Details Recorded Time 635007 Product containin g penicilli n (product) medicatio n anaphylax is Not available high 05/18/2022 21777 8001 SNOMED Malika [place] null, [place] - [facility] 3 13:49:54 [...] Updated DateTime 3 172.72 cm 31.9 kg/m2 01158.4 g 95 % 95 % 97 /min [...] SNOMED-CT Code Diagnosis ICD10 Code Diagnosis Note [id number] [address] [place] [address] 05/04/2019 10:15:48 05/04/2019 11:04:20 [id number] [address] [place] [address] 08/22/2017 10:46:43 08/22/2017 11:28:26 [id number] [address] [place] [address] 11/06/2019 08:12:57 11/06/2019 08:47:49 [id number] [address] [facility] [place] [place] [address] 09/10/2018 10:01:20 09/10/2018 11:14:04 [id number] 20[address]Yolande [address] [place] [facility] [place] [place] [address] 11/07/2019 08:20:04 11/07/2019 10:41:03 [id number] 20[address] Mej[address] [place] [facility] [place] [address] 03/02/2020 09:28:03 03/02/2020 11:43:55 [id number] 2099Yolande Mej[address]ar [place] [facility] [place] [place] [address] 11/04/2019 08:03:33 11/04/2019 09:40:15 [id number] Donavan Hankins DO [address] [facility] [place] [address] 05/18/2022 13:41:02 05/18/2022 14:28:46 Laceration of left hand [id number] S61.412A following oral consent wound was cleaned [...] [place] [employer] Edward P Halton [id number] 5 Edward P Halton 11/04/2019 2 [place] [id number] Edward P Halton [id number] 87 Edward P Halton 11/06/2019 1 [place] B[place] [employer] Edward P Halton [id number] 5 Edward P Halton 11/06/2019 2 [place] [id number] Edward P Halton [id number] 87 Edward P Halton 11/07/2019 1 [place] [employer] Edward P Halton [id number] 5 Edward P Halton 11/07/2019 2 [place] [id number] Edward P Halton [id number] 87 Edward P Halton 03/02/2020 1 [place] B[place]: [facility] GOVERNMENT SERVICES Edward P Halton [id number] 5 Edward P Halton 03/02/2020 2 [place] [id number] Edward P Halton [id number] 87 Edward P Halton 05/18/2022 1 [place]: [facility] GOVERNMENT SERVICES Edward P Halton [id number] 5 Edward P Halton 05/18/2022 2 [place] [id number] Edward P Halton [id number] 87 Edward P Halton Notes Date Note Type Note Provider Name and Address Organization Details Recorded Time 05/18/2022 text/html UC Wound/LacerationRep orted bypatient.Notes:76 yo malescratched by his house malik plavix and eliquisstill bleedingtried band aids w/o improvementno f/c/n/vminimal pain no CPno SOBno Hano dizzinessno f/c/n/v Donavan Hankins, DO [address] [place], [address], [place] - [facility] 05/18/2022 14:30:26
[2024-06-15] MEDS: iohexoL 350 MG/ML 75 ML INFUS..BTL 70 ML IV (08:02)
== END 2024-06-15 07:30 | disposition home or self-care (01) ==
LOC: HO.CT 07:29
PROVIDERS: PCP Internal Medicine; Visit Provider Surgery Vascular Surgery
DX: I71.43 Infrarenal abdominal aortic aneurysm, without rupture (principal)
CPT/HCPCS: 74174; Q9967

== ENCOUNTER → 2024-06-15 07:33 | Outpatient (BNV) | payer MEDICARE, SELFPAY ==
[2024-06-12 15:09] VITALS: BMI 32.0
== END ==
PROVIDERS: PCP Internal Medicine; Visit Provider Radiology Diagnostic Radiology
DX: I71.43 Infrarenal abdominal aortic aneurysm, without rupture (principal)
CPT/HCPCS: 74174

== ENCOUNTER 2024-06-16 08:55 | Outpatient (AMB) | payer MEDICARE, SELFPAY ==
[2024-06-12 15:09] VITALS: BMI 32.0
--- OUTSIDE RECORDS SUMMARY | 2024-06-16 09:40 | XMS_ITS | Patient Health Record ---
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
--- OUTSIDE RECORDS SUMMARY | 2024-06-16 09:40 | XMS_ITS | Data Portability ---
Author Organization [facility], [address] Address [address] [place] [address] Assessment No assessment recorded. Plan of Treatment [...] By Organization Details Last Modified Time 05/18/2022 [id number] cuts: care instructions [email or web address] Not available 05/18/2022 [...] Address Organization Details Recorded Time Atrial fibrillation 03884088 Active 2022 Malika Beggs null, PA - [facility] 3 13:50:16 Chronic obstructive pulmonary disease 57929686 Active 2022 Malika Shana null, PA - [facility] 3 13:50:20 Hypertensive disorder 73070525 Active 2022 Malika Beggs null, PA - [facility] 3 13:50:27 Hyperlipidemia 42376897 Active 2022 Malika Shana null, PA - [facility] 3 13:50:33 Problem Notes None recorded. Medical Equipment None Reported. Allergies Allergen ID Allergen Name Allergen Category Reaction Reaction Severity Criticality Documentation Date Start Date Code Code System Note Provider Name and Address Organization Details Recorded Time 306291 Product containin g penicilli n (product) medicatio n anaphylax is Not available high 05/18/2022 80275 8001 SNOMED Malika Beggs null, PA - [facility] 3 13:49:54 [...] Updated DateTime 3 172.72 cm 31.9 kg/m2 85814.4 g 95 % 95 % 97 /min [...] SNOMED-CT Code Diagnosis ICD10 Code Diagnosis Note [id number] [address] [place] [address] 05/04/2019 10:15:48 05/04/2019 11:04:20 [id number] [address] [place] [address] 08/22/2017 10:46:43 08/22/2017 11:28:26 [id number] [address] [place] [address] 11/06/2019 08:12:57 11/06/2019 08:47:49 [id number] [address] [place] [address] 09/10/2018 10:01:20 09/10/2018 11:14:04 [id number] 2099Yolande [address] [place] [address] 11/07/2019 08:20:04 11/07/2019 10:41:03 [id number] [address] [place] [facility] [place] [address] 03/02/2020 09:28:03 03/02/2020 11:43:55 [id number] 2099Yolande Mej[address]ar [place] [address] 11/04/2019 08:03:33 11/04/2019 09:40:15 [id number] Donavan Hankins DO [address] [facility] [place] [address] 05/18/2022 13:41:02 05/18/2022 14:28:46 Laceration of left hand [id number] 4641666 S61.412A following oral consent wound was cleaned [...] [place] Edward P Halton [id number] 5 Edward P Halton 11/04/2019 2 [place] [id number] Edward P Halton [id number] 87 Edward P Halton 11/06/2019 1 [place] [employer] Edward P Halton [id number] 5 Edward P Halton 11/06/2019 2 [place] [id number] Edward P Halton [id number] Edward P Halton 11/07/2019 1 [place] [employer] Edward P Halton [id number] 5 Edward P Halton 11/07/2019 2 [place] [id number] Edward P Halton [id number] Edward P Halton 03/02/2020 1 [place]: [facility] GOVERNMENT SERVICES Edward P Halton [id number] 5 Edward P Halton 03/02/2020 2 [place] [id number] Edward P Halton [id number] Edward P Halton 05/18/2022 1 [place] [facility] GOVERNMENT SERVICES Edward P Halton [id number] 5 Edward P Halton 05/18/2022 2 [place] [id number] Edward P Halton [id number] Edward P Halton Notes Date Note Type Note Provider Name and Address Organization Details Recorded Time 05/18/2022 text/html UC Wound/LacerationRep orted bypatient.Notes:76 yo malescratched by his house malik plavix and eliquisstill bleedingtried band aids w/o improvementno f/c/n/vminimal pain no CPno SOBno Hano dizzinessno f/c/n/v Donavan Hankins, DO [address] [place], [address], [place] - [facility] 05/18/2022 14:30:26
[2024-06-16 09:50] VITALS: BP 110/86; PULSE 91; O2SAT 95; BMI 29.7
--- NOTE | 2024-06-16 09:50 | A.OFFPC_ITS ---
Vital Signs 06/16/24 09:50 Height 5 ft 8 in Weight 195 lb 6 oz BMI 29.7 BP 110/86 Blood Pressure Location Lt brachial Position Sitting Pulse 91 Pulse Source Pulse Oximeter Pulse Oximetry (%) 95 Oxygen Delivery Method Room Air Intake Visit Reasons: [facility] 06/12 High blood pressure Guide Dog Trainer Required: No Accompanied by: Self / Same As Patient Allergies Penicillins Allergy (Severe, Verified 06/16/24 09:51) Anaphylaxis hydrochlorothiazide Allergy (Unknown, Verified 06/16/24 09:51) Unknown lisinopril Allergy (Unknown, Verified 06/16/24 09:51) Unknown regadenoson [From Lexiscan] Adverse Reaction (Verified 06/16/24 09:51) Bradycardic Medication List - Last Reconciled 06/16/24 by Maritza Raphael PA-C adalimumab (Humira(CF) Pen) 40 mg subcut Q2W apixaban (Eliquis) 5 mg PO BID 90 days atorvastatin 80 mg PO BEDTIME wzogogyruu-mwusdqlr-ygtebxfsdx 160-9-4.8 mcg/actuation (Breztri Aerosphere) 2 inhalations inhalation BID cholecalciferol (vitamin D3) 50 mcg PO DAILY clopidogrel 75 mg PO DAILY compress.stocking,knee,reg,med As directed 20-30 mm HG cyanocobalamin (vitamin B-12) (Vitamin B-12) 1,000 mcg PO DAILY diclofenac sodium 1% (Arthritis Pain (diclofenac)) 4 grams topical QID digoxin 125 mcg PO 3XW diltiazem HCl ER 180 mg PO DAILY famotidine 20 mg PO BID 90 days ferrous sulfate 325 mg PO DAILY 90 days furosemide (Lasix) 40 mg (2 x 20 mg) PO QAM levothyroxine 50 mcg PO DAILY@0600 metoprolol tartrate 50 mg (2 x 25 mg) PO BID 30 days [OXYGEN 2 L NC keep sats > 90 As directed] [PORTABLE OXYGEN TANK As directed] potassium chloride ER (Klor-Con) 10 mEq PO BID tamsulosin 0.8 mg (2 x 0.4 mg) PO DAILY Tobacco use date assessed: 06/16/24 Fall risk assessment: No Falls in past year Last assessed Fall Risk: 06/16/24 Dental Screening Dental Screen Date: 06/16/24 Did you have a dental visit in the last 12 months?: Yes Did you have a dental problem in the last 6 months where you did not have access to dental care?: No Was dental information given to patient?: Patient has dentist HPI [facility] 06/12 High blood pressure HPI Details 78-year-old male with past medical histo ry of hypothyroidism, hypercholesterolemia, hypertension, interstitial lung disease with COPD, atrial fibrillation on anticoagulation, and diabetes mellitus last seen 04/2024 coming in for HDF.? In review of the notes, patient was seen in [facility] ED 06/12/2024 hypertension we will reassuring patient showing positive UTI treated with Macrobid and discharged home. Presenting for follow-up care related to blood pressure management and monitor ing of a urinary tract infection. He reports recent fluctuations in his blood pressure, including high readings at home, leading to emergency room visits where blood pressure normalized without symptoms such as headaches or chest pain. The patient has a urinary tract infection under treatment with antibiotics and denies any active urinary symptoms. The patient notes his participation in cardiac rehab, which affected his blood pressure previously with lower readings noted after physical activity prompting an evaluation in the ED. A follow-up with a recovery analyst is scheduled to assess recent cardiovascular concerns. [facility] Medical History Atrial fibrillation with rapid ventricular response Supplemental oxygen dependent ILD (interstitial lung disease) COPD (chronic obstructive pulmonary disease) Tubular adenoma of colon (~2021) Postoperative hypothyroidism Obesity (BMI 30-39.9) Atrial fibrillation Chest discomfort Bronchitis Hemoptysis HOLLOWAY (dyspnea on exertion) Abnormal SPEP Multinodular thyroid Swelling of left lower extremity Pulmonary nodules/lesions, multiple Ground glass opacity present on imaging of lung Wedge compression fracture of T9 vertebra (~2018) Coronary artery disease Hypertension Right renal stone Thyroid nodule Vitamin D deficiency Ascending aorta dilatation Obesity (BMI 30-39.9) Psoriasis Hypercholesterolemia Former smoker Stable angina Surgical History Status post AAA (abdominal aortic aneurysm) repair Hx of bilateral cataract extraction (~2022) History of partial thyroidectomy (~2020) History of heart artery stent (~2019) History of colonoscopy History of cardioversion (~2020) History of appendectomy History of tonsillectomy History of lung biopsy (~2016) Family History Father Heart disease Mother Throat cancer Paternal Grandfather Heart disease Social History Household Members: Spouse Housing: House Are you a primary pharmacy care coordinator to a significant other at home: No Do you presently have visiting nurse or other home services: No Unable to assess alcohol history related to: Unknown Alcohol intake: former Year quit: 2014 Patient Tobacco Use Status: Former Tobacco user Tobacco use type: Cigarette Years Smoked: 50 e-Cigarette/Vaping Use: Former Use Second Hand Smoke Exposure: Yes Advance Directives Date on File: 09/21/20 service: Yes Current occupational status: retired Cognitive needs: No Hearing needs: No Vision needs: Yes (Glasses) Questionnaire PHQ-9 Over the last 2 weeks, how often have you been bothered by any of the following problems? 1. Little interest or pleasure in doing things: not at all 2. Feeling down, depressed, or hopeless: not at all 3. Trouble falling or staying asleep, or sleeping too much: not at all 4. Feeling tired or having little energy: not at all 5. Poor appetite or overeating: not at all 6. Feeling bad about yourself - or that you are a failure or have let yourself or your family down: not at all 7. Trouble concentrating on things, such as reading the newspaper or watching television: not at all 8. Moving or speaking so slowly that other people could have noticed. Or the opposite - being so fidgety or restless that you have been moving around a lot more than usual: not at all 9. Thoughts that you would be better off or of hurting yourself in some way: not at all Total score: 0 Depression Screening Interpretation: Negative Depression Screening Done: Yes Source: Developed by Drs. Ever Nelson, Sarah Galindo, Lopez Owen and colleagues, with an educational moira from [employer]. Thrive Questionnaire Date Thrive assessed: 06/16/24 I am a: Patient What is your living situation today?: I have a steady place to live Within the past 12 months, did the food you bought not last and you didn't have the money to get more?: Never true Within the past 12 months, did you worry whether your food would run out before you got money to buy more?: Never true Do you have trouble paying for medicines?: No Do you have trouble getting transportation to medical appointments?: No Do you have trouble paying your heating and electricity bill?: No Do you have trouble taking care of your child, family member or friend?: No Do you have trouble with day-to-day activities such as bathing, preparing meals, shopping, managing finances, etc.?: No Are you currently unemployed and looking for a job?: No Are you interested in more education?: No Please select the resources that you would like help with: None Currently or been in a relationship where the following occur: No concerns reported THRIVE Score: 0 AUDIT C Alcohol Use Questionnaire (AUDIT-C) 1. How often do you have a drink containing alcohol?: Never 3. How often do you have six or more drinks on one occasion?: Never Total Score: 0 JORGE-7 AMB Questionnaire JORGE-7 Date JORGE - 7 assessed: 06/16/24 Feeling nervous, anxious, or on edge: 0 = Not at all Not being able to stop or control worryin = Not at all Worrying too much about different things: 0 = Not at all Trouble relaxin = Not at all Being so restless that it is hard to sit still: 0 = Not at all Becoming easily annoyed or irritable: 0 = Not at all Feeling afraid as if something awful might happen: 0 = Not at all Total JORGE-7 score (0-4 normal; 5-9 mild; 10-14 moderate; 15-21 severe): 0 Source: Developed by Drs. Ever Nelson, Sarah Galindo, Lopez Owen and colleagues, with an educational moira from [employer]. Review of Systems Const Denies body aches, Denies chills, Denies fever(s), Denies headache(s) and Denies poor appetite Eyes Reports no additional complaints ENT Denies dizziness and Denies headache(s) Card Denies chest pain, Denies syncope, Denies edema, Denies irregular heart rhythm, Denies lightheadedness and Denies dyspnea Resp Denies cough and Denies dyspnea GI Denies abdominal pain, Denies constipation, Denies diarrhea, Denies nausea and Denies vomiting Reports no additional complaints Musc Reports no additional complaints and Denies abnormal gait Skin/Breast Reports system reviewed and no additional complaints, except as documented Neuro Denies abnormal gait, Denies dizziness, Denies syncope and Denies headache(s) Psych Reports no additional complaints Physical exam (Primary Care) Vital Signs: Last Vital Signs Pulse 91 06/16/24 09:50 BP 110/86 06/16/24 09:50 Pulse Ox 95 06/16/24 09:50 Oxygen Delivery Method Room Air 06/16/24 09:50 BMI result Body Mass Index 29.7 Tobacco/Smoking Status: Tobacco use Status Tobacco use date assessed 06/16/24 06/16/24 09:53 Patient Tobacco Use Status Former Tobacco user 06/16/24 09:53 Tobacco use type Cigarette 06/16/24 09:53 e-Cigarette/Vaping Use Former Use 06/16/24 09:53 PHQ-9: PHQ-9 Score PHQ-9: Total score 0 06/16/24 09:53 Depression Screening Interpretation: Negative Thrive Assessment: Date of Thrive Assessment Date Thrive assessed 06/16/24 06/16/24 09:53 Currently or been in a relationship where the following occur: No concerns reported Const General: cooperative, healthy appearing, comfortable and no acute distress Orientation/consciousness: patient oriented x3 HENMT Head: Yes normocephalic Ears: hearing grossly normal bilaterally General nose exam: Normal external nose present Eyes General: appearance normal, both eyes and all related structures Conjunctivae: conjunctivae normal Neck Neck: Yes full ROM and Yes no lymphadenopathy Resp Effort & Inspection: normal respiratory effort Auscultation: clear to auscultation bilaterally, no crackles, no rales, no rhonchi and no wheezes Cardio Rate: regular rate Rhythm: regular rhythm Skin General skin exam: no rashes or lesions noted Neuro General: patient oriented x3 Gait exam (Neuro): Normal gait present Extrem General: Yes normal to inspection, Yes full ROM and No edema Psych Affect: normal affect Attitude: cooperative Insight: Good insight present (Psych) Judgement: Good judgement present (Psych) Coding Level of Care Code Est Pt Level 3 (21966) Diagnoses Obesity (BMI 30-39.9) E66.9 Essential hypertension I10 Hypertension type: essential hypertension Hypercholesterolemia E78.00 Coronary artery disease involving [place] coronary artery of [place] heart without angina pectoris I25.10 Associated angina: without angina Coronary Disease-Associated Artery/Lesion type: [place] artery [place] vs. transplanted heart: [place] heart ILD (interstitial lung disease) J84.9 Type 2 diabetes mellitus with hyperglycemia E11.65 UTI (urinary tract infection) N39.0 Assessment & Plan Assessment & Plan (1) Obesity (BMI 30-39.9): Code(s): E66.9 - Obesity, unspecified Category: Medical Plan: Healthy diet and regular exercise is encouraged. (2) Hypertension: Code(s): I10 - Essential (primary) hypertension Category: Medical Qualifiers: Hypertension type: essential hypertension Qualified Code(s): I10 - Essential (primary) hypertension Plan: Continue on current blood pressure medication. Avoid salt intake and encourage healthy diet and regular exercise. The patient is to follow up with his recovery analyst on June 26 to evaluate the management of blood pressure fluctuations and atrial fibrillation. Home monitoring of blood pressure should be maintained, with attention to sodium intake potential contributing factors. (3) Hypercholesterolemia: Code(s): E78.00 - Pure hypercholesterolemia, unspecified Category: Medical Plan: Avoid foods that are high in cholesterol such as red meat, fried foods, eggs and baked goods. Triglyceride goal of less than 150 and LDL goal of less than 70. Continue on atorvastatin 80 (4) Coronary artery disease: Comment: (NSTEMI 04/2019 - JL + proximal and distal RCA rotablation) 03/01/2024 PCI to RCA Code(s): I25.10 - Atherosclerotic heart disease of [place] coronary artery without angina pectoris Category: Medical Qualifiers: Associated angina: without angina Coronary Disease-Associated Artery/Lesion type: [place] artery [place] vs. transplanted heart: [place] heart Qualified Code(s): I25.10 - Atherosclerotic heart disease of [place] coronary artery without angina pectoris Plan: Advised good control of diabetes, cholesterol and blood pressure. On anticoagulation with Eliquis (5) ILD (interstitial lung disease): Code(s): J84.9 - Interstitial pulmonary disease, unspecified Category: Medical Plan: Breathing well managed at this time continue on inhalers. (6) Type 2 diabetes mellitus with hyperglycemia: Comment: Dr. Waddell and Dr. Mccord Code(s): E11.65 - Type 2 diabetes mellitus with hyperglycemia Category: Medical Plan: Decrease the amount of carbohydrates such as pasta, bread, rice, and potatoes and limit the amount of sweets. Although fruits are generally healthy they should be eaten in moderation as they are still high in sugar. Hemoglobin A1c goal of less than 7%. (7) UTI (urinary tract infection): Code(s): N39.0 - Urinary tract infection, site not specified Category: Medical Plan: Currently on Macrobid after being discharged from the hospital. Plan Patient was informed and verbally consented to the use of an ambient scribe for clinic note documentation during this visit. This note was constructed using voice recognition software. While every effort has been made to ensure accuracy and enrober, still areas may have been included sometimes these areas may affect the content or meeting of the given symptoms. Total time spent caring for the patient today was twenty minutes. This includes time spent before the visit reviewing the chart, time spent during the visit, and time spent after the visit and documentation.
== END 2024-06-16 10:10 | disposition home or self-care (01) ==
PROVIDERS: PCP Internal Medicine
DX: E11.65 Type 2 diabetes mellitus with hyperglycemia (principal); J84.9 Interstitial pulmonary disease, unspecified; E66.9 Obesity, unspecified; Z68.29 Body mass index [BMI] 29.0-29.9, adult; I10 Essential (primary) hypertension; E78.00 Pure hypercholesterolemia, unspecified; I25.10 Atherosclerotic heart disease of native coronary artery without angina pectoris; N39.0 Urinary tract infection, site not specified

== ENCOUNTER → 2024-06-16 08:55 | Outpatient (BNVA) | payer MEDICARE, SELFPAY ==
[2024-06-12 15:09] VITALS: BMI 32.0
== END ==
PROVIDERS: PCP Internal Medicine
DX: E66.9 Obesity, unspecified (principal); E78.00 Pure hypercholesterolemia, unspecified; I10 Essential (primary) hypertension; I25.10 Atherosclerotic heart disease of native coronary artery without angina pectoris; E11.65 Type 2 diabetes mellitus with hyperglycemia; J98.4 Other disorders of lung; N39.0 Urinary tract infection, site not specified
CPT/HCPCS: 99212

== ENCOUNTER 2024-06-22 08:25 | Outpatient (REF) | payer MEDICARE, SELFPAY ==
[2024-06-12 15:09] VITALS: BMI 32.0
--- NOTE | ~2024-06-22 | XR_ITS ---
EXAMINATION: XR PELVIS CLINICAL INFORMATION: M25.559 - Pain in unspecified hip COMPARISON: None available. TECHNIQUE: AP view of the pelvis. FINDINGS: No fracture mild loss of bilateral hip joint space. Alignment is anatomic. Sacroiliac joints and pubic symphysis are normal. There is dystrophic calcification superior to the pubic symphysis, stable. There are distal aortic and bilateral common iliac vascular stents XR/XR pelvis 1-2V IMPRESSION: No acute fracture or dislocation. Hypertrophic osteoarthropathy of the pubic symphysis, stable. Electronically signed by: Alfredo Gong MD 06/23/2024 08:43 AM [facility]
--- OUTSIDE RECORDS SUMMARY | 2024-06-22 08:43 | XMS_ITS | Patient Health Record ---
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) Active confirmed 195937245 PLAN OF TREATMENT Pending Test Test Name Order Date XR BARIUM SWALLOW-ESOPHAGUS 05/23/2022 Future Test Test Name Order Date COLONOSCOPY 04/27/2021 Insurance Providers Payer Name Payer Address Payer Phone Subscriber Number Group Number Insured Name Patient Relationship to Insured Coverage Start Date Coverage End Date MEDICARE OF [place] [address] [facility] [place] [address] [phone] [id number] FAISAL ARELLANO Self - patient is the insured [employer] ATTN CLAIMS [address] [place] [address] [id number] FAISAL ARELLANO Self - patient is the insured MEDICAL (GENERAL) HISTORY Medical History History ICD Code Ascending aortic aneurysm COPD Coronary artery disease--AK and 2 stents in 2019-Dr. Jean-Baptiste Osteoporosis Psoriasis - on humira pulmonary nodule Renal stones Thyroid nodule Vitamin D deficiency Wedge compression fracture of T9 vertebr a Hypertension Afib Denies DM,CVA,renal disease Negative screening colonoscopy in 2007 Colonoscopy 05/2020 with a small tubular adenoma removed Surgical History Surgery Date(Month/Year) Appendectomy Tonsillectomy Lung biopsy 11/22/2016 Thyroid-benign
--- OUTSIDE RECORDS SUMMARY | 2024-06-22 08:43 | XMS_ITS | Data Portability ---
Author Organization [facility], [id number] [place] [address] Assessment No assessment recorded. Plan of Treatment [...] By Organization Details Last Modified Time 05/18/2022 [id number] cuts: care instructions [email or web address] Not available 05/18/2022 [...] Address Organization Details Recorded Time Atrial fibrillation 40924457 Active 2022 Malika Shana null, PA - [facility] 3 13:50:16 Chronic obstructive pulmonary disease 50660781 Active 2022 Malika Tyronza null, PA - [facility] 3 13:50:20 Hypertensive disorder 04373299 Active 2022 Malika Shana null, PA - [facility] 3 13:50:27 Hyperlipidemia 16018359 Active 2022 Malika Tyronza null, PA - [facility] 3 13:50:33 Problem Notes None recorded. Medical Equipment None Reported. Allergies Allergen ID Allergen Name Allergen Category Reaction Reaction Severity Criticality Documentation Date Start Date Code Code System Note Provider Name and Address Organization Details Recorded Time 730417 Product containin g penicilli n (product) medicatio n anaphylax is Not available high 05/18/2022 72802 8001 SNOMED Malika Shana null, [facility] - [facility] [...] Updated DateTime 3 172.72 cm 31.9 kg/m2 68196.4 g 95 % 95 % 97 /min [...] SNOMED-CT Code Diagnosis ICD10 Code Diagnosis Note [id number] [address] [place] [address] 05/04/2019 10:15:48 05/04/2019 11:04:20 [id number] [address] [place] [address] 08/22/2017 10:46:43 08/22/2017 11:28:26 [id number] [address] [place] [address] 11/06/2019 08:12:57 11/06/2019 08:47:49 [id number] [address] [facility] [place] [address] 09/10/2018 10:01:20 09/10/2018 11:14:04 [id number] [address]Yolande [address] [facility] [place] [address] 11/07/2019 08:20:04 11/07/2019 10:41:03 [id number] 20995Jose Mejíar [place] [facility] [place] [address] 03/02/2020 09:28:03 03/02/2020 11:43:55 [id number] 2099Yolande Mejíar [place] [facility] [place] [place] [address] 11/04/2019 08:03:33 11/04/2019 09:40:15 [id number] Donavan Hankins DO [address] [facility] [place] [address] 05/18/2022 13:41:02 05/18/2022 14:28:46 Laceration of left hand [id number] S61.412A following oral consent wound was cleaned [...] [place] [employer] [employer] [place] Edward P Halton [id number] 5 Edward P Halton 11/04/2019 2 [place] [id number] Edward P Halton [id number] Edward P Halton 11/06/2019 1 [place] [employer] Edward P Halton [id number] 5 Edward P Halton 11/06/2019 2 [place] [id number] Edward P Halton [id number] 87 Edward P Halton 11/07/2019 1 [place] [employer] Edward P Halton [id number] 5 Edward P Halton 11/07/2019 2 [place] [id number] Edward P Halton [id number] 87 Edward P Halton 03/02/2020 1 [place] [facility] GOVERNMENT SERVICES Edward P Halton [id number] 5 Edward P Halton 03/02/2020 2 [place] [id number] Edward P Halton [id number] 87 Edward P Halton 05/18/2022 1 [place] [facility] GOVERNMENT SERVICES Edward P Halton [id number] 5 Edward P Halton 05/18/2022 2 [place] [id number] Edward P Halton [id number] Edward P Halton Notes Date Note Type Note Provider Name and Address Organization Details Recorded Time 05/18/2022 text/html UC Wound/LacerationRep orted bypatient.Notes:76 yo malescratched by his house malik plavix and eliquisstill bleedingtried band aids w/o improvementno f/c/n/vminimal pain no CPno SOBno Hano dizzinessno f/c/n/v Donavan Hankins, DO [address] [place], [address], [place] - [facility] 05/18/2022 14:30:26
== END 2024-06-22 08:26 | disposition home or self-care (01) ==
LOC: HO.HOSX 08:25
PROVIDERS: Visit Provider Physician Assistant
DX: M25.559 Pain in unspecified hip (principal); M70.61 Trochanteric bursitis, right hip
CPT/HCPCS: 72170; 99212

== ENCOUNTER 2024-06-22 11:07 | Outpatient (AMB) | payer MEDICARE, SELFPAY ==
[2024-06-12 15:09] VITALS: BMI 32.0
--- NOTE | 2024-06-22 11:20 | MHC.OFFVIS ---
Vital Signs 06/22/24 11:30 Height 5 ft 8 in Weight 195 lb BMI 29.6 Intake Visit Reasons: New prob- RT hip bursitis Intake Note: Pablito is a 78 year old male who presents today for an evaluation of right hip pain. Patient reports off and on pain for a couple months. He states that he is not having pain at the moment. He stated that his pain use to go down his knee and make it stiff. Patient tried Tylenol which gave him relief. Allergies Penicillins Allergy (Severe, Verified 06/22/24 11:28) Anaphylaxis hydrochlorothiazide Allergy (Unknown, Verified 06/22/24 11:28) Unknown lisinopril Allergy (Unknown, Verified 06/22/24 11:28) Unknown regadenoson [From Lexiscan] Adverse Reaction (Verified 06/22/24 11:28) Bradycardic Medication List - Last Reconciled 06/22/24 by Keven Núñez PA-C adalimumab (Humira(CF) Pen) 40 mg subcut Q2W apixaban (Eliquis) 5 mg PO BID 90 days atorvastatin 80 mg PO BEDTIME kuqefchdhz-euqmbskw-miaebanpcm 160-9-4.8 mcg/actuation (Breztri Aerosphere) 2 inhalations inhalation BID cholecalciferol (vitamin D3) 50 mcg PO DAILY clopidogrel 75 mg PO DAILY compress.stocking,knee,reg,med As directed 20-30 mm HG cyanocobalamin (vitamin B-12) (Vitamin B-12) 1,000 mcg PO DAILY diclofenac sodium 1% (Arthritis Pain (diclofenac)) 4 grams topical QID digoxin 125 mcg PO 3XW diltiazem HCl ER 180 mg PO DAILY famotidine 20 mg PO BID 90 days ferrous sulfate 325 mg PO DAILY 90 days furosemide (Lasix) 40 mg (2 x 20 mg) PO QAM levothyroxine 50 mcg PO DAILY@0600 metoprolol tartrate 50 mg (2 x 25 mg) PO BID 30 days [OXYGEN 2 L NC keep sats > 90 As directed] [PORTABLE OXYGEN TANK As directed] potassium chloride ER (Klor-Con) 10 mEq PO BID tamsulosin 0.8 mg (2 x 0.4 mg) PO DAILY HPI HPI New prob- RT hip bursitis: Details: 78-year-old gentleman presents to the office today for right hip pain. He states the pain has improved over the last several days. He states the pain is located along the lateral aspect of the hip which radiates down the leg. He denies groin pain but states there is some pain that develops over the thigh when he tries to lift the leg. Specifically he notices some discomfort with trying to get from a seated to a standing position and lifting the leg. [facility] Medical History Atrial fibrillation with rapid ventricular response Supplemental oxygen dependent ILD (interstitial lung disease) COPD (chronic obstructive pulmonary disease) Tubular adenoma of colon (~2021) Postoperative hypothyroidism Obesity (BMI 30-39.9) Atrial fibrillation Chest discomfort Bronchitis Hemoptysis HOLLOWAY (dyspnea on exertion) Abnormal SPEP Multinodular thyroid Swelling of left lower extremity Pulmonary nodules/lesions, multiple Ground glass opacity present on imaging of lung Wedge compression fracture of T9 vertebra (~2018) Coronary artery disease Hypertension Right renal stone Thyroid nodule Vitamin D deficiency Ascending aorta dilatation Obesity (BMI 30-39.9) Psoriasis Hypercholesterolemia Former smoker Stable angina Surgical History Status post AAA (abdominal aortic aneurysm) repair Hx of bilateral cataract extraction (~2022) History of partial thyroidectomy (~2020) History of heart artery stent (~2019) History of colonoscopy History of cardioversion (~2020) History of appendectomy History of tonsillectomy History of lung biopsy (~2016) Family History Father Heart disease Mother Throat cancer Paternal Grandfather Heart disease Social History Household Members: Spouse Housing: House Are you a primary palliative care nurse practitioner to a significant other at home: No Do you presently have visiting nurse or other home services: No Unable to assess alcohol history related to: Unknown Alcohol intake: former Year quit: 2014 Patient Tobacco Use Status: Former Tobacco user Tobacco use type: Cigarette Years Smoked: 50 e-Cigarette/Vaping Use: Former Use Second Hand Smoke Exposure: Yes Advance Directives Date on File: 09/21/20 service: Yes Current occupational status: retired Cognitive needs: No Hearing needs: No Vision needs: Yes (Glasses) Review of Systems Const All systems reviewed & are unremarkable except as noted in HPI and below Physical Exam Vital Signs: BMI result Body Mass Index 29.6 Const General: cooperative and no acute distress Orientation/consciousness: patient oriented x3 Resp Effort & Inspection: normal respiratory effort and able to speak in complete sentences Cardio Peripheral pulses: Peripheral pulses 2+ throughout Neuro General: patient oriented x3 Extrem Other: Right hip normal to inspection. No pain with ROM of the hip. Pain along the greater trochanter. No pain with hip flexion or abduction.There is tenderness along the si joint, Negative SLR. NVI. Results Reviewed Results Reviewed: XR hip RT min 2V IMPRESSION: Moderate osteoarthritis, right coxofemoral joint. No acute fracture or dislocation, right hip. Atherosclerosis disease, peripheral. Probable status post Endo aortoiliac stenting. Assessment & Plan Assessment & Plan (1) Trochanteric bursitis of right hip: Code(s): M70.61 - Trochanteric bursitis, right hip Category: Medical Plan: We discussed options which include PT, NSAIDs and injections. She will defer on the injection today and proceed with PT and NSAIDs. If symptoms persist she will contact me for an injection, otherwise, prn. Orders: Orders XR pelvis 1-2V Today M25.559 - Pain in unspecified hip Coding Level of Care Code New Pt Level 3 (86340) Complex EM visit Add On G2211 Diagnoses Trochanteric bursitis of right hip M70.61
[2024-06-22 11:30] VITALS: BMI 29.6
== END 2024-06-22 11:56 | disposition home or self-care (01) ==
PROVIDERS: PCP Internal Medicine; Visit Provider Physician Assistant
DX: M70.61 Trochanteric bursitis, right hip (principal)
CPT/HCPCS: 99213

== ENCOUNTER → 2024-06-22 11:12 | Outpatient (BNV) | payer MEDICARE, SELFPAY ==
[2024-06-12 15:09] VITALS: BMI 32.0
== END ==
PROVIDERS: Visit Provider Radiology Diagnostic Radiology
DX: M25.551 Pain in right hip (principal); M25.552 Pain in left hip
CPT/HCPCS: 72170

== ENCOUNTER 2024-06-23 09:52 | Outpatient (AMB) | payer MEDICARE, SELFPAY ==
[2024-06-12 15:09] VITALS: BMI 32.0
--- NOTE | 2024-06-23 10:24 | MHC.OFFVIS ---
Vital Signs 06/23/24 10:25 Height 5 ft 8 in Weight 195 lb BMI 29.6 Intake Visit Reasons: follow up s/p CTA Abd/Pelvis 06/15/24 Intake Note: 6 mo follow up CTA Abd/pelvis 06/15/24 w/ hx of EVAR 07/16/23. no complaints Disability Insurance Hearing Officer Required: No Accompanied by: Self / Same As Patient Allergies Penicillins Allergy (Severe, Verified 06/23/24 10:30) Anaphylaxis hydrochlorothiazide Allergy (Unknown, Verified 06/23/24 10:30) Unknown lisinopril Allergy (Unknown, Verified 06/23/24 10:30) Unknown regadenoson [From Lexiscan] Adverse Reaction (Verified 06/23/24 10:30) Bradycardic HPI HPI follow up s/p CTA Abd/Pelvis 06/15/24: Details: The patient is a 78-year-old male presenting with surveillance follow-up for abdominal aortic aneurysm. He has previously undergone endovascular aneurysm repair (EVAR) with an Endologix AFX2 device on July 16, 2023. The postoperative course has been reportedly uneventful with follow-up imaging confirming stable graft placement and no endoleak. The aneurysmal size has been showing expected reduction over time. 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 Jean-Baptiste, with an echocardiogram pending. Apart from vascular concerns, the patient expresses that musculoskeletal issues attributed to osteoarthritis are impacting his mobility. He will be engaging in physical therapy to address these issues. The patient's prior diagnoses and ongoing treatments provide a comprehensive view of his current health management. [facility] Medical History Atrial fibrillation with rapid ventricular response Supplemental oxygen dependent ILD (interstitial lung disease) COPD (chronic obstructive pulmonary disease) Tubular adenoma of colon (~2021) Postoperative hypothyroidism Obesity (BMI 30-39.9) Atrial fibrillation Chest discomfort Bronchitis Hemoptysis HOLLOWAY (dyspnea on exertion) Abnormal SPEP Multinodular thyroid Swelling of left lower extremity Pulmonary nodules/lesions, multiple Ground glass opacity present on imaging of lung Wedge compression fracture of T9 vertebra (~2018) Coronary artery disease Hypertension Right renal stone Thyroid nodule Vitamin D deficiency Ascending aorta dilatation Obesity (BMI 30-39.9) Psoriasis Hypercholesterolemia Former smoker Stable angina Surgical History Status post AAA (abdominal aortic aneurysm) repair Hx of bilateral cataract extraction (~2022) History of partial thyroidectomy (~2020) History of heart artery stent (~2019) History of colonoscopy History of cardioversion (~2020) History of appendectomy History of tonsillectomy History of lung biopsy (~2016) Family History Father Heart disease Mother Throat cancer Paternal Grandfather Heart disease Social History Household Members: Spouse Housing: House Are you a primary career development facilitator to a significant other at home: No Do you presently have visiting nurse or other home services: No Unable to assess alcohol history related to: Unknown Alcohol intake: former Year quit: 2014 Patient Tobacco Use Status: Former Tobacco user Tobacco use type: Cigarette Years Smoked: 50 e-Cigarette/Vaping Use: Former Use Second Hand Smoke Exposure: Yes Advance Directives Date on File: 09/21/20 service: Yes Current occupational status: retired Cognitive needs: No Hearing needs: No Vision needs: Yes (Glasses) Review of Systems Const All systems reviewed & are unremarkable except as noted in HPI and below Reports no additional complaints ENT Reports Normal hearing present Card Denies chest pain, Denies chest pain at rest, Denies chest pain with activity and Denies pedal edema Resp Denies cough GI Denies abdominal pain Musc Denies abnormal gait, Denies muscle cramps and Denies radiating pain into limb Skin/Breast Denies skin ulcer and Denies wounds Neuro Reports Normal hearing present and Denies abnormal gait Psych Reports no additional complaints Physical Exam Vital Signs: BMI result Body Mass Index 29.6 Const General: cooperative, healthy appearing and comfortable Orientation/consciousness: oriented to person, oriented to place and oriented to time HEENT Head: Yes normal to inspection Neck Neck: Yes normal visual inspection Carotids: no bruits Chest Chest palpation & inspection: normal inspection of the chest Resp Effort & Inspection: normal respiratory effort and able to speak in complete sentences Auscultation: clear to auscultation bilaterally, no crackles, no rales, no rhonchi and no wheezes Cardio Rate: regular rate Rhythm: regular rhythm Heart sounds: S1 normal heart sound present and S2 normal heart sound present Bruits: no carotid bruits Peripheral pulses: Peripheral pulses 2+ throughout GI Inspection: Yes normal to inspection Skin Wounds: no wounds Hair: normal Neuro General: oriented to person, oriented to place and oriented to time Cranial nerves: Yes CN's II-XII intact bilaterally and Yes Normal hearing present Cognition (Neuro): normal cognition Motor exam (neuro): 5/5 motor strength present throughout Extrem Other: venous exam: No significant superficial varicosities or spider telangiectasias, minimal edema General: No clubbing, No cyanosis and No edema Psych Appearance: grossly normal Mental Status: mental status grossly normal Speech and movement: Normal speech and movement present Results Reviewed Results Reviewed: CT angiogram dated 06/15/2024 demonstrates 5.9 cm aneurysm with stable endograft. No evidence of endoleak. Written report and images were reviewed. Assessment & Plan Assessment & Plan (1) AAA (abdominal aortic aneurysm) without rupture: Comment: endovascular aneurysm repair on 07/16/2023 with Endologix a FX 2 device. Code(s): I71.40 - Abdominal aortic aneurysm, without rupture, unspecified Category: Medical Qualifiers: Abdominal aorta location: infrarenal aorta Qualified Code(s): I71.43 - Infrarenal abdominal aortic aneurysm, without rupture Plan The patient will remain on an annual surveillance schedule for the abdominal aortic aneurysm, as the post-operative course is satisfactory with no noted complications. Blood pressure variability necessitates monitoring, potentially leading to adjustments in management following evaluations by his physicians. The upcoming echocardiogram will contribute to an ongoing assessment of possible cardiovascular concerns. Physical therapy is advised for osteoarthritis-related concerns to address joint discomfort and improve mobility. He will be scheduled for annual surveillance CT for his aortic endograft. Thank you for allowing us to assist in his care. Patient was informed and verbally consented to the use of an ambient scribe for clinic note documentation during this visit. Orders: Orders Blood Urea Nitrogen 1 Year I71.43 - Infrarenal abdominal aortic aneurysm, without rupture Creatinine 1 Year I71.43 - Infrarenal abdominal aortic aneurysm, without rupture CT angio abdomen pelvis 1 Year I71.43 - Infrarenal abdominal aortic aneurysm, without rupture Coding Level of Care Code Est Pt Level 4 (25617) Diagnoses Infrarenal abdominal aortic aneurysm (AAA) without rupture I71.43 Abdominal aorta location: infrarenal aorta
[2024-06-23 10:25] VITALS: BMI 29.6
--- OUTSIDE RECORDS SUMMARY | 2024-06-23 11:26 | XMS_ITS | Data Portability ---
Author Organization [facility], [id number] Address [address] [place] [address] Assessment No assessment recorded. Plan of Treatment [...] By Organization Details Last Modified Time 05/18/2022 [id number] cuts: care instructions [email or web address] Not available 05/18/2022 [...] Address Organization Details Recorded Time Atrial fibrillation 76530582 Active 2022 Malika Shana null, [place] - [facility] 3 13:50:16 Chronic obstructive pulmonary disease 18098157 Active 2022 Malika [place] null, PA - [facility] 3 13:50:20 Hypertensive disorder 99076916 Active 2022 Malika Shana null, PA - [facility] 3 13:50:27 Hyperlipidemia 86000607 Active 2022 Malika [place] null, PA - [facility] 3 13:50:33 Problem Notes None recorded. Medical Equipment None Reported. Allergies Allergen ID Allergen Name Allergen Category Reaction Reaction Severity Criticality Documentation Date Start Date Code Code System Note Provider Name and Address Organization Details Recorded Time 731248 Product containin g penicilli n (product) medicatio n anaphylax is Not available high 05/18/2022 40711 8001 SNOMED Malika Shana null, PA - [...] Updated DateTime 3 172.72 cm 31.9 kg/m2 59383.4 g 95 % 95 % 97 /min [...] SNOMED-CT Code Diagnosis ICD10 Code Diagnosis Note [id number] [address] [place] [address] 05/04/2019 10:15:48 05/04/2019 11:04:20 [id number] [address] [place] [address] 08/22/2017 10:46:43 08/22/2017 11:28:26 [id number] [address] [place] [address] 11/06/2019 08:12:57 11/06/2019 08:47:49 [id number] [address] [place] [address] 09/10/2018 10:01:20 09/10/2018 11:14:04 [id number] [address] [place] [address] 11/07/2019 08:20:04 11/07/2019 10:41:03 [id number] 20995Jose Mej[address]ar [place] [facility] [place] [address] 03/02/2020 09:28:03 03/02/2020 11:43:55 [id number] 2099Yolande Mej[address]ar [address] [place] [address] 11/04/2019 08:03:33 11/04/2019 09:40:15 [id number] Donavan Hankins DO [address] [facility] [place] [address] 05/18/2022 13:41:02 05/18/2022 14:28:46 Laceration of left hand [id number] S61.412A following oral consent wound was cleaned [...] [place] Edward P Halton [id number] 5 Edward P Halton 11/04/2019 2 [place] [id number] Edward P Halton [id number] 87 Edward P Halton 11/06/2019 1 [place] [employer] Edward P Halton [id number] 5 Edward P Halton 11/06/2019 2 [place] [id number] Edward P Halton [id number] Edward P Halton 11/07/2019 1 [place] [employer] Edward P Halton [id number] 5 Edward P Halton 11/07/2019 2 [place] [id number] Edward P Halton [id number] Edward P Halton 03/02/2020 1 [place] [facility] G[place]ERNMENT SERVICES Edward P Halton [id number] 5 Edward P Halton 03/02/2020 2 [place] [id number] Edward P Halton [id number] Edward P Halton 05/18/2022 1 [place] [facility] GOV[facility]MENT SERVICES Edward P Halton [id number] 5 Edward P Halton 05/18/2022 2 [place] [id number] Edward P Halton [id number] Edward P Halton Notes Date Note Type Note Provider Name and Address Organization Details Recorded Time 05/18/2022 text/html UC Wound/LacerationRep orted bypatient.Notes:76 yo malescratched by his house malik plavix and eliquisstill bleedingtried band aids w/o improvementno f/c/n/vminimal pain no CPno SOBno Hano dizzinessno f/c/n/v Donavan Hankins, DO [address] [place], [address], PA - [facility] 05/18/2022 14:30:26
--- OUTSIDE RECORDS SUMMARY | 2024-06-23 11:26 | XMS_ITS | Patient Health Record ---
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 (Z79.01) Active confirmed 964632570 PLAN OF TREATMENT Pending Test Test Name Order Date XR BARIUM SWALLOW-ESOPHAGUS 05/23/2022 Future Test Test Name Order Date COLONOSCOPY 04/27/2021 Insurance Providers Payer Name Payer Address Payer Phone Subscriber Number Group Number Insured Name Patient Relationship to Insured Coverage Start Date Coverage End Date MEDICARE OF [place] [address] [place] [address] [id number] FAISAL ARELLANO Self - patient is the insured MEDEX ATTN CLAIMS [address] [place] [address] [id number] FAISAL ARELLANO Self - patient is the insured MEDICAL (GENERAL) HISTORY Medical History History ICD Code Ascending aortic aneurysm COPD Coronary artery disease--[place] and 2 stents in 2019-Dr. Jean-Baptiste Osteoporosis Psoriasis - on humira pulmonary nodule Renal stones Thyroid nodule Vitamin D deficiency Wedge compression fracture of T9 vertebr a Hypertension Afib Denies DM,CVA,renal disease Negative screening colonoscopy in 2007 Colonoscopy 05/2020 with a small tubular adenoma removed Surgical History Surgery Date(Month/Year) Appendectomy Tonsillectomy Lung biopsy 11/22/2016 Thyroid-benign
== END 2024-06-23 10:53 | disposition home or self-care (01) ==
PROVIDERS: PCP Internal Medicine; Visit Provider Surgery Vascular Surgery
DX: I71.43 Infrarenal abdominal aortic aneurysm, without rupture (principal)
CPT/HCPCS: 99214

== ENCOUNTER → 2024-06-23 09:52 | Outpatient (BNVA) | payer MEDICARE, SELFPAY ==
[2024-06-12 15:09] VITALS: BMI 32.0
== END ==
PROVIDERS: PCP Internal Medicine; Visit Provider Surgery Vascular Surgery
DX: I71.43 Infrarenal abdominal aortic aneurysm, without rupture (principal)
CPT/HCPCS: 99212

== ENCOUNTER 2024-06-29 09:10 | Outpatient (AMB) | payer MEDICARE, SELFPAY ==
[2024-06-12 15:09] VITALS: BMI 32.0
[2024-06-29 09:16] VITALS: BP 109/62; PULSE 77; O2SAT 97; BMI 30.1
--- NOTE | 2024-06-29 09:16 | MHC.OFFVIS ---
Vital Signs 06/29/24 09:16 Height 5 ft 8 in Weight 198 lb BMI 30.1 BP 109/62 Blood Pressure Location Lt brachial Position Sitting Pulse 77 Pulse Source Doppler Pulse Oximetry (%) 97 Oxygen Delivery Method Room Air Intake Visit Reasons: COPD Allergies Penicillins Allergy (Severe, Verified 06/29/24 09:19) Anaphylaxis hydrochlorothiazide Allergy (Unknown, Verified 06/29/24 09:19) Unknown lisinopril Allergy (Unknown, Verified 06/29/24 09:19) Unknown regadenoson [From Lexiscan] Adverse Reaction (Verified 06/29/24 09:19) Bradycardic HPI HPI COPD: Details: 78-year-old gentleman, former 100+ pack-year smoker, quit 2014, with prior history of left lower lobe nodule biopsy benign in etiology, also on Humira for underlying psoriatic arthritis, followed for COPD and abnormal CT chest that demonstrated bilateral ground-glass densities that have been waxing and waning with some underlying pulmonary fibrosis. He has been tried on prednisone with no symptomatic or radiologic response.? He has been using BrezTri with reasonable control of his symptoms.? He has been using supplemental oxygen at 2-3 L 24x7. He recently had left heart catheterization with stenting of RCA. [facility] Medical History Atrial fibrillation with rapid ventricular response Supplemental oxygen dependent ILD (interstitial lung disease) COPD (chronic obstructive pulmonary disease) Tubular adenoma of colon (~2021) Postoperative hypothyroidism Obesity (BMI 30-39.9) Atrial fibrillation Chest discomfort Bronchitis Hemoptysis HOLLOWAY (dyspnea on exertion) Abnormal SPEP Multinodular thyroid Swelling of left lower extremity Pulmonary nodules/lesions, multiple Ground glass opacity present on imaging of lung Wedge compression fracture of T9 vertebra (~2018) Coronary artery disease Hypertension Right renal stone Thyroid nodule Vitamin D deficiency Ascending aorta dilatation Obesity (BMI 30-39.9) Psoriasis Hypercholesterolemia Former smoker Stable angina Surgical History Status post AAA (abdominal aortic aneurysm) repair Hx of bilateral cataract extraction (~2022) History of partial thyroidectomy (~2020) History of heart artery stent (~2019) History of colonoscopy History of cardioversion (~2020) History of appendectomy History of tonsillectomy History of lung biopsy (~2016) Family History Father Heart disease Mother Throat cancer Paternal Grandfather Heart disease Social History Household Members: Spouse Housing: House Are you a primary skin care specialist to a significant other at home: No Do you presently have visiting nurse or other home services: No Unable to assess alcohol history related to: Unknown Alcohol intake: former Year quit: 2014 Patient Tobacco Use Status: Former Tobacco user Tobacco use type: Cigarette Years Smoked: 50 e-Cigarette/Vaping Use: Former Use Second Hand Smoke Exposure: Yes Advance Directives Date on File: 09/21/20 service: Yes Current occupational status: retired Cognitive needs: No Hearing needs: No Vision needs: Yes (Glasses) Review of Systems Const Denies daytime sleepiness, Denies excessive sweating, Denies fatigue, Denies fever(s), Denies lethargy, Denies malaise, Denies night sweats, Denies snoring and Denies weight loss Eyes Denies blurry vision and Denies itchy eyes ENT Denies nasal congestion, Denies post nasal drip, Denies sinus pain, Denies sinus pressure and Denies other ( Thrush) Card Denies chest pain, Denies pedal edema, Denies dyspnea, Denies orthopnea and Denies paroxysmal nocturnal dyspnea Resp Denies cough, Denies hemoptysis, Denies excessive phlegm production, Denies dyspnea, Denies snoring and Denies wheezing GI Denies abdominal pain and Denies heartburn Musc Denies myalgias, Denies arthralgias and Denies joint swelling Skin/Breast Denies rash Neuro Denies memory loss and Denies seizure-like activity Psych Denies abnormal sleep pattern, Denies anxiety and Denies memory loss Endo Denies excessive sweating, Denies fatigue and Denies heat intolerance Zhou/Lymph Denies easy bruising Aller/Immun Denies itchy eyes, Denies seasonal rhinorrhea and Denies wheezing Physical Exam Vital Signs: Last Vital Signs Pulse 77 06/29/24 09:16 BP 109/62 06/29/24 09:16 Pulse Ox 97 06/29/24 09:16 Oxygen Delivery Method Room Air 06/29/24 09:16 BMI result Body Mass Index 30.1 Const General: no acute distress and alert Nutritional Appearance: not obese Orientation/consciousness: Other orientation findings ( oriented) HEENT Head: Yes atraumatic Eyes General: appearance normal, both eyes and all related structures Sclerae: sclerae normal EOM: EOMs intact bilaterally Neck Neck: Yes supple Lymphatic: no lymphadenopathy noted Resp Effort & Inspection: normal respiratory effort and no use of accessory muscles Auscultation: clear to auscultation bilaterally Cardio Rate: regular rate Rhythm: regular rhythm Heart sounds: no gallops, no murmurs and no rubs Skin General skin exam: other ( warm) Extrem General: No clubbing, No cyanosis and No edema Assessment & Plan Assessment & Plan (1) COPD (chronic obstructive pulmonary disease): Code(s): J44.9 - Chronic obstructive pulmonary disease, unspecified Category: Medical Plan: Well controlled on current regimen of Breztri and albuterol MDI. Continue current regimen. (2) ILD (interstitial lung disease): Code(s): J84.9 - Interstitial pulmonary disease, unspecified Category: Medical Plan: Underlying mild pulmonary fibrosis. Continue to monitor clinically. (3) Supplemental oxygen dependent: Code(s): Z99.81 - Dependence on supplemental oxygen Category: Medical Plan: Continue supplemental oxygen to maintain O2 saturation of 89-93% Orders: Orders CT chest wo IV con 12/30/24 J84.9 - Interstitial pulmonary disease, unspecified Coding Level of Care Code Est Pt Level 4 (75281) Complex EM visit Add On G2211 Diagnoses COPD (chronic obstructive pulmonary disease) J44.9 ILD (interstitial lung disease) J84.9 Supplemental oxygen dependent Z99.81
--- OUTSIDE RECORDS SUMMARY | 2024-06-29 09:44 | XMS_ITS | Patient Health Record ---
Author Organization [facility] Address [address] [place] [address] Care Team Providers Care Building Construction Foreman Name Role Phone Oswaldo Delgado MD Primary Care Provider Ever Colmenares [phone] Allergies Allergen (clinical drug ingredient) Drug/Non Drug Allergy documented on EMR Reaction Allergy Type Onset Date Status Penicillin Unknown Drug Allergy Active lisinopril Lisinopril Unknown Drug Allergy Activ e hydrochlorothiazide Hydrochlorothiazide Unknown Drug Aller gy Active Reason For Referral No Information Medications Medication SIG (Take, Route, Frequency, Duration) Notes [...] 160-9-4.8 MCG/ACT Inhalation for 30 Activ e Immunizations Vaccine Route Administration Date Status Comme nts Influenza Unknown 01/20/2021 Administered Influenza Unknown 03/13/2022 Administered Social History Tobacco Use: Social History Observation Description Date Details (start date - stop date) Former Smoker NA - NA Tobacco Use/Smoking Question Answer Notes Patient is a former smoker How long has it been since you last smoked? 5-10 years Alcohol Screen Question Answer Notes Did you have a drink containing alcohol in the p ast year? No Points 0 Interpretation Negative Section Notes: Quit smoking and ETOH Jun 11 15 Quit smoking and ETOH Jun 11 15 Problems Problem Type SNOMED Code ICD Code Onset Dates Problem Status W/U Status Risk Notes Problem 047570678 Encounter for screening for malignant neoplasm of colon (Z12.11) Active confirmed Problem Diverticulosis of colon (759176257) Diverticulosis of colon (K57.30) Active confirmed Problem 96088680 Esophageal dysphagia (R13.19) Active confirmed Problem 797262692 alf curren t use of anticoagulant (Z79.01) Active confirmed Plan Of Treatment Pending Test Test Name Order Date XR BARIUM SWALLOW-ESOPHAGUS 05/23/2022 Future Test Test Name Order Date COLONOSCOPY 04/27/2021 Insurance Providers Payer Name Payer Address Payer Phone Subscriber Number Group Number Insured Name Patient Relationship to Insured Coverage Start Date Coverage End Date MEDICARE OF [place] [address] [facility] [place] [address] [phone] [id number] FAISAL ARELLANO Self - patient is the insured MEDEX ATTN CLAIMS [address] [place] [address] [id number] FAISAL ARELLANO Self - patient is the insured Medical (General) History Medical History History ICD Code Ascending aortic aneurysm COPD Coronary artery disease--[place] and 2 stents in 2019-Dr. Jean-Baptiste Osteoporosis Psoriasis - on humira pulmonary nodule Renal stones Thyroid nodule Vitamin D deficiency Wedge compression fracture of T9 vertebr a Hypertension Afib Denies DM,CVA,renal disease Negative screening colonoscopy in 2007 Colonoscopy 05/2020 with a small tubular adenoma removed Surgical History Surgery Date(Month/Year) Appendectomy Tonsillectomy Lung biopsy 11/22/2016 Thyroid-benign
--- OUTSIDE RECORDS SUMMARY | 2024-06-29 09:45 | XMS_ITS | Data Portability ---
Author Organization [facility], [address] Address [address] [place] [address] Assessment No assessment recorded. Plan of Treatment [...] By Organization Details Last Modified Time 05/18/2022 [id number] cuts: care instructions [email or web address] Not available 05/18/2022 [...] Address Organization Details Recorded Time Atrial fibrillation 55062697 Active 2022 Malika Shana null, PA - [facility] 3 13:50:16 Chronic obstructive pulmonary disease 91449554 Active 2022 Malika [place]ron[place] null, PA - [facility] 3 13:50:20 Hypertensive disorder 08217331 Active 2022 Malika Shana null, PA - [facility] 3 13:50:27 Hyperlipidemia 87076144 Active 2022 Malika Shana null, PA - [facility] 3 13:50:33 Problem Notes None recorded. Medical Equipment None Reported. Allergies Allergen ID Allergen Name Allergen Category Reaction Reaction Severity Criticality Documentation Date Start Date Code Code System Note Provider Name and Address Organization Details Recorded Time 945235 Product containin g penicilli n (product) medicatio n anaphylax is Not available high 05/18/2022 76263 8001 SNOMED Malika Shana null, PA - [...] Updated DateTime 3 172.72 cm 31.9 kg/m2 55807.4 g 95 % 95 % 97 /min [...] SNOMED-CT Code Diagnosis ICD10 Code Diagnosis Note [id number] [address] [place] [address] 05/04/2019 10:15:48 05/04/2019 11:04:20 [id number] [address] [place] [address] 08/22/2017 10:46:43 08/22/2017 11:28:26 [id number] [address] [place] [address] 11/06/2019 08:12:57 11/06/2019 08:47:49 [id number] [address] [facility] [place] [address] 09/10/2018 10:01:20 09/10/2018 11:14:04 [id number] [address] Ferm[address] [facility] [place] [address] 11/07/2019 08:20:04 11/07/2019 10:41:03 [id number] [address] Fermín [facility] [place] [address] 03/02/2020 09:28:03 03/02/2020 11:43:55 [id number] 2099Yolande Mej[address]ar Ferm[address] [facility] [place] [address] 11/04/2019 08:03:33 11/04/2019 09:40:15 [id number] Donavan Hankins DO [address] [facility] [place] [address] 05/18/2022 13:41:02 05/18/2022 14:28:46 Laceration of left hand [id number] S61.412A following oral consent wound was cleaned [...] [place] Edward P Halton [id number] 25 Edward P Halton 11/04/2019 2 [place] [id number] Edward P Halton [id number] 87 Edward P Halton 11/06/2019 1 [place] B[place] [employer] Edward P Halton [id number] 25 Edward P Halton 11/06/2019 2 [place] [id number] Edward P Halton [id number] 87 Edward P Halton 11/07/2019 1 MEDIC[place] B-[place]: [facility] GOVERNMENT SERVICES Edward P Halton [id number] 25 Edward P Halton 11/07/2019 2 [place] [id number] Edward P Halton [id number] 87 Edward P Halton 03/02/2020 1 [place] B[place]: [facility] GOVERNMENT SERVICES Edward P Halton [id number] 25 Edward P Halton 03/02/2020 2 [place] [id number] Edward P Halton [id number] 87 Edward P Halton 05/18/2022 1 MEDICARE B-[place]: [facility] Edward P Halton [id number] 25 Edward P Halton 05/18/2022 2 [place] [id number] Edward P Halton [id number] Edward P Halton Notes Date Note Type Note Provider Name and Address Organization Details Recorded Time 05/18/2022 text/html UC Wound/LacerationRep orted bypatient.Notes:76 yo malescratched by his house malik plavix and eliquisstill bleedingtried band aids w/o improvementno f/c/n/vminimal pain no CPno SOBno Hano dizzinessno f/c/n/v Donavan Hicksit, DO [address] [place], [address], [place] - [facility] 05/18/2022 14:30:26
== END 2024-06-29 09:37 | disposition home or self-care (01) ==
PROVIDERS: PCP Internal Medicine; Visit Provider Internal Medicine Pulmonary Disease
DX: J44.9 Chronic obstructive pulmonary disease, unspecified (principal); J84.9 Interstitial pulmonary disease, unspecified; Z99.81 Dependence on supplemental oxygen
CPT/HCPCS: 99214; G2211

== ENCOUNTER → 2024-06-29 09:10 | Outpatient (BNVA) | payer MEDICARE, SELFPAY ==
[2024-06-12 15:09] VITALS: BMI 32.0
== END ==
PROVIDERS: PCP Internal Medicine; Visit Provider Internal Medicine Pulmonary Disease
DX: J44.9 Chronic obstructive pulmonary disease, unspecified (principal); J84.9 Interstitial pulmonary disease, unspecified; Z99.81 Dependence on supplemental oxygen
CPT/HCPCS: 99212

== ENCOUNTER → 2024-07-08 08:34 | Outpatient (REF) | payer MEDICARE, SELFPAY ==
[2024-06-12 15:09] VITALS: BMI 32.0
--- NOTE | 2024-07-08 08:41 | CA_ITS ---
Transthoracic Echocardiogram Patient (Last, First, Middle): Pablito Everett P Gender: Male Date of : 1945 Age: 78 Procedure Date: 07/08/2024 Procedure Type: Transthoracic Echocardiogram Location: OP Height: 172.72 cm Weight: 89.81 kg BSA: 2.04 m2 Heart Rate: bpm BP: 112 / 72 mmHg Administrative Support Clerk: TO Referring MD: Michael Sellers ENTRY LEVEL ACCOUNT REPRESENTATIVE Galley Stripper: Julian Lindo MD Symptoms: I35.0 - Nonrheumatic aortic (valve) stenosis Study Quality: Adequate ECG Rhythm: Atrial Fibrillation Conclusions: - 1. Mildly reduced LV ejection fraction of 45-50% 2. Severely dilated left atrium 3. Early mild aortic stenosis with trace to mild aortic regurgitation 4. Normal RV systolic pressure 5. Jhpb-wh-xrqzvrbh enlargement of ascending aorta 6. No gross pericardial effusion Findings Left Ventricle Normal left ventricular cavity size. There is normal left ventricular wall thickness. The left ventricular systolic function is mildly decreased. The visually estimated ejection fraction is between 45-50%. Diastolic function is indeterminate on the basis of available data. There is mild septal asymmetric hypertrophy. Wall Motion Rest Echo Findings The inferoseptal wall, the basal inferior, and mid inferior segments are hypokinetic. All other scored wall segments showed normal motion. Right Ventricle Normal right ventricular cavity size and systolic function. Atria The left atrium is severely dilated. There is no evidence of interatrial shunt. The right atrium is mildly dilated. Aortic Valve There is mild calcification of the aortic valve. There is mild thickening of the aortic valve. There is mild aortic valve stenosis. The peak aortic velocity is 1.65 m/s with a calculated peak gradient of 11 mmHg. The mean gradient is 6 mmHg. The aortic valve area is 2.17 cm2. There is mild aortic valve regurgitation. Mitral Valve There is mild anterior and posterior mitral leaflet thickening. There is moderate mitral annular calcification. There is trace mitral valve regurgitation. There is no mitral valve stenosis. Pulmonic Valve The pulmonic valve was not well visualized. Tricuspid Valve Likely normal tricuspid valve structure and function. There is mild tricuspid valve regurgitation. The right ventricular systolic pressure is normal. The right ventricular systolic pressure is 20 mmHg. Normal right atrial pressure. There is no evidence of pulmonary hypertension. Great Vessels The pulmonary artery was not well visualized. There is mild dilatation of the ascending aorta measuring 4.40 cm. Venous The inferior vena cava is normal in size and collapses greater than 50% with inspiration. Pericardium/Pleural There is no evidence of pericardial effusion. Prior Study Comparison Changes noted compared to prior study dated: 02/28/2024. LV ejection fraction is marginally reduced Measurements 2D Linear Measurements IVSd: 1.20 0.6-0.9/0.6-1.0 cm LVIDd: 4.85 3.9-5.3/4.2-5.9 cm LVIDd Index: 2.38 2.4-3.2/2.2-3.1 cm/m2 LVIDs: 3.63 2.0-3.6 cm LVPWd: 0.95 0.7-1.1 cm LA Diam: 3.90 2.7-3.8/3.0-4.0 cm LAIDs Index: 1.91 1.5-2.3 cm/m2 LV Mass: 237.92 67-162/88-224 g LV Mass Index: 116.63 43-95/49-115 g/m2 LVOT Diam: 2.40 3.0+(-)1.3 cm 2D Systolic Function EF 4C: 48.70 >55% EF 2C: 47.80 >55% EF BiP: 47.80 >55% Mitral Valve MV VTI: 0.24 MV Pk Chato: 1.06 MV Mn Chato: 0.61 MV Pk Grad: 4.00 MV Mn Grad: 2.00 MV Pk E: 0.96 MV Decel Time: 170.00 E'Lateral: 9.59 E'Medial: 6.38 E/E' Med: 15.00 E/E' Lat: 10.00 PHT: 50.00 MVA PHT: 4.40 MVA Continuity: 2.81 Decel [place]: 5.66 Aortic Valve AoV Pk Chato: 1.65 AoV Mn Chato: 1.13 AoV VTI: 0.34 AoV Pk Grad: 11.00 Aov Mn Grad: 6.00 RAYMOND Cont.VTI: 2.17 LVOT LVOT Pk Chato: 0.81 LVOT Mn Chato: 0.57 LVOT VTI: 0.15 LVOT Pk Grad: 3.00 LVOT Mn Grad: 1.00 LVOT Diam: 2.40 LVOT Area: 4.52 Diastolic Function MV Pk E: 0.96 E'Medial: 6.38 E/E' Med: 15.00 E' Laterial: 9.59 E/E' Lat: 10.00 Right Ventricle TAPSE (mm): 18.00 TVS' Chato: 10.30 Tricuspid Valve TR Pk Chato: 2.09 TR Pk Grad: 17.00 RA Press: 3.00 RVSP: 20.00 Great Vessels Aorta Sinus of Valsalva: 4.27 2.0-3.5 cm Ao Asc: 4.40 2.1-3.4 cm Updated in Other Vendor System with Status of Final Julian Lindo MD electronically signed on 07/08/2024 4:00:04 PM with status of Final
--- OUTSIDE RECORDS SUMMARY | 2024-07-08 09:25 | XMS_ITS | Data Portability ---
Author Organization [facility], [address] Address [address] [place] [address] Assessment No assessment recorded. Plan of Treatment [...] By Organization Details Last Modified Time 05/18/2022 [id number] cuts: care instructions [email or web address] Not available 05/18/2022 [...] Address Organization Details Recorded Time Atrial fibrillation 53548395 Active 2022 Malika Shana null, PA - [facility] 3 13:50:16 Chronic obstructive pulmonary disease 26510166 Active 2022 Malika [place] null, PA - [facility] 3 13:50:20 Hypertensive disorder 13130560 Active 2022 Malika Shana null, PA - [facility] 3 13:50:27 Hyperlipidemia 31681017 Active 2022 Malika Shana null, PA - [facility] 3 13:50:33 Problem Notes None recorded. Medical Equipment None Reported. Allergies Allergen ID Allergen Name Allergen Category Reaction Reaction Severity Criticality Documentation Date Start Date Code Code System Note Provider Name and Address Organization Details Recorded Time 236911 Product containin g penicilli n (product) medicatio n anaphylax is Not available high 05/18/2022 75953 8001 SNOMED Malika Shana null, PA - [...] Updated DateTime 3 172.72 cm 31.9 kg/m2 44904.4 g 95 % 95 % 97 /min [...] SNOMED-CT Code Diagnosis ICD10 Code Diagnosis Note [id number] [address] [place] [address] 05/04/2019 10:15:48 05/04/2019 11:04:20 [id number] [address] [place] [address] 08/22/2017 10:46:43 08/22/2017 11:28:26 [id number] [address] [place] [address] 11/06/2019 08:12:57 11/06/2019 08:47:49 [id number] [address] [facility] [place] [address] 09/10/2018 10:01:20 09/10/2018 11:14:04 [id number] [address] Fermín [facility] [place] [address] 11/07/2019 08:20:04 11/07/2019 10:41:03 [id number] [address] Fermín [facility] [place] [address] 03/02/2020 09:28:03 03/02/2020 11:43:55 [id number] 2099Yolande [address] Fermín [facility] [place] [address] 11/04/2019 08:03:33 11/04/2019 09:40:15 [id number] Donavan Hankins DO [address] [facility] [place] [address] 05/18/2022 13:41:02 05/18/2022 14:28:46 Laceration of left hand [id number] S61.412A following oral consent wound was cleaned [...] [place] Edward P Halton [id number] 25 Edward P Halton 11/04/2019 2 [place] [id number] Edward P Halton [id number] 87 Edward P Halton 11/06/2019 1 [place] B[place] Edward P Halton [id number] 25 Edward P Halton 11/06/2019 2 [place] [id number] Edward P Halton [id number] 87 Edward P Halton 11/07/2019 1 MEDICARE B-[place]: [facility] GOVERNMENT SERVICES Edward P Halton [id number] 25 Edward P Halton 11/07/2019 2 [place] [id number] Edward P Halton [id number] 87 Edward P Halton 03/02/2020 1 MEDICARE B-[place]: [facility] G[facility] SERVICES Edward P Halton [id number] 25 Edward P Halton 03/02/2020 2 [place] [id number] Edward P Halton [id number] 87 Edward P Halton 05/18/2022 1 MEDICARE B-MA: [facility] SERVICES Edward P Halton [id number] 25 Edward P Halton 05/18/2022 2 [place] [id number] Edward P Halton [id number] 87 Edward P Halton Notes Date Note Type Note Provider Name and Address Organization Details Recorded Time 05/18/2022 text/html UC Wound/LacerationRep orted bypatient.Notes:76 yo malescratched by his house malik plavix and eliquisstill bleedingtried band aids w/o improvementno f/c/n/vminimal pain no CPno SOBno Hano dizzinessno f/c/n/v Donavan Hicksit, DO [address] [place], [address], [place] - [facility] 05/18/2022 14:30:26
--- OUTSIDE RECORDS SUMMARY | 2024-07-08 09:25 | XMS_ITS | Patient Health Record ---
Author Organization [facility] Address [address] [place] [address] Care Team Providers Care Log Brander Name Role Phone Oswaldo Delgado MD Primary Care Provider Ever Colmenares [phone] Allergies Allergen (clinical drug ingredient) Drug/Non Drug [...] Problem Status W/U Status Risk Notes Problem 230497540 Encounter for screening for malignant neoplasm of colon (Z12.11) Active confirmed Problem Diverticulosis of colon (166072780) Diverticulosis of colon (K57.30) Active confirmed Problem 45331082 Esophageal dysphagia (R13.19) Active confirmed Problem 168336075 USP curren t use of anticoagulant (Z79.01) Active confirmed Plan Of Treatment Pending Test Test Name Order Date XR BARIUM SWALLOW-ESOPHAGUS 05/23/2022 Future Test Test Name Order Date COLONOSCOPY 04/27/2021 Insurance Providers Payer Name Payer Address Payer Phone Subscriber Number Group Number Insured Name Patient Relationship to Insured Coverage Start Date Coverage End Date MEDICARE OF [place] [address] [facility] [place] [address] [id number] FAISAL ARELLANO Self - patient is the insured MEDEX ATTN CLAIMS [address] [place] [address] [phone] [id number] FAISAL ARELLANO Self - patient is the insured Medical (General) History Medical History History ICD Code Ascending aortic aneurysm COPD Coronary artery disease--[place] and 2 stents in 2019-Dr. Jean-Baptiste Osteoporosis Psoriasis - on humira pulmonary nodule Renal stones Thyroid nodule Vitamin D deficiency Wedge compression fracture of T9 vertebr a Hypertension Afib Denies DM,CVA,renal disease Negative screening colonoscopy in 2007 Colonoscopy 05/2020 with a small tubular adenoma removed Surgical History Surgery Date(Month/Year) Appendectomy Tonsillectomy Lung biopsy 11/22/2016 Thyroid-benign
== END ==
LOC: HO.CARD 08:34
PROVIDERS: PCP Internal Medicine
DX: I35.0 Nonrheumatic aortic (valve) stenosis (principal)
CPT/HCPCS: 93306

== ENCOUNTER → 2024-07-08 08:41 | Outpatient (BNV) | payer MEDICARE, SELFPAY ==
[2024-06-12 15:09] VITALS: BMI 32.0
== END ==
PROVIDERS: PCP Internal Medicine; Visit Provider Internal Medicine Cardiovascular Disease
DX: I42.2 Other hypertrophic cardiomyopathy (principal); I35.2 Nonrheumatic aortic (valve) stenosis with insufficiency; I51.7 Cardiomegaly; I36.1 Nonrheumatic tricuspid (valve) insufficiency
CPT/HCPCS: 93306

== ENCOUNTER 2024-07-14 06:32 | Outpatient (REF) | payer MEDICARE, SELFPAY ==
[2024-06-12 15:09] VITALS: BMI 32.0
[2024-07-14 11:10] LABS: Creatinine Urine 18.44 mg/dL
== END 2024-07-14 06:33 | disposition home or self-care (01) ==
LOC: HO.HMGCLDS 06:32
PROVIDERS: PCP Internal Medicine; Visit Provider Internal Medicine
DX: E11.65 Type 2 diabetes mellitus with hyperglycemia (principal); I50.9 Heart failure, unspecified
CPT/HCPCS: 82570

== ENCOUNTER 2024-07-15 08:36 | Outpatient (AMB) | payer MEDICARE, SELFPAY ==
[2024-06-12 15:09] VITALS: BMI 32.0
--- NOTE | 2024-07-15 08:50 | MHC.PC.OV ---
Vital Signs 07/15/24 08:53 Height 5 ft 8 in Weight 201 lb 6 oz BMI 30.6 BP 120/74 Blood Pressure Location Lt brachial Position Sitting Pulse 97 Pulse Source Pulse Oximeter Temp 97.1 F Temp Source Temporal Artery Scan Pulse Oximetry (%) 92 Oxygen Delivery Method Nasal Cannula Oxygen Flow Rate 2 Intake Visit Reasons: Coronary artery disease Allergies Penicillins Allergy (Severe, Verified 07/15/24 08:51) Anaphylaxis hydrochlorothiazide Allergy (Unknown, Verified 07/15/24 08:51) Unknown lisinopril Allergy (Unknown, Verified 07/15/24 08:51) Unknown regadenoson [From Lexiscan] Adverse Reaction (Verified 07/15/24 08:51) Bradycardic Tobacco use date assessed: 07/15/24 Dental Screening Dental Screen Date: 06/16/24 Did you have a dental visit in the last 12 months?: Yes Did you have a dental problem in the last 6 months where you did not have access to dental care?: No Was dental information given to patient?: Patient has dentist [facility] Medical History Atrial fibrillation with rapid ventricular response Supplemental oxygen dependent ILD (interstitial lung disease) COPD (chronic obstructive pulmonary disease) Tubular adenoma of colon (~2021) Postoperative hypothyroidism Obesity (BMI 30-39.9) Atrial fibrillation Chest discomfort Bronchitis Hemoptysis HOLLOWAY (dyspnea on exertion) Abnormal SPEP Multinodular thyroid Swelling of left lower extremity Pulmonary nodules/lesions, multiple Ground glass opacity present on imaging of lung Wedge compression fracture of T9 vertebra (~2018) Coronary artery disease Hypertension Right renal stone Thyroid nodule Vitamin D deficiency Ascending aorta dilatation Obesity (BMI 30-39.9) Psoriasis Hypercholesterolemia Former smoker Stable angina Surgical History Status post AAA (abdominal aortic aneurysm) repair Hx of bilateral cataract extraction (~2022) History of partial thyroidectomy (~2020) History of heart artery stent (~2019) History of colonoscopy History of cardioversion (~2020) History of appendectomy History of tonsillectomy History of lung biopsy (~2016) Family History Father Heart disease Mother Throat cancer Paternal Grandfather Heart disease Social History Household Members: Spouse Housing: House Are you a primary rn progressive care unit to a significant other at home: No Do you presently have visiting nurse or other home services: No Unable to assess alcohol history related to: Unknown Alcohol intake: former Year quit: 2015 Patient Tobacco Use Status: Former Tobacco user Tobacco use type: Cigarette Years Smoked: 50 e-Cigarette/Vaping Use: Former Use Second Hand Smoke Exposure: Yes Advance Directives Date on File: 09/21/20 service: Yes Current occupational status: retired Cognitive needs: No Hearing needs: No Vision needs: Yes (Glasses) Questionnaire PHQ-9 Over the last 2 weeks, how often have you been bothered by any of the following problems? 1. Little interest or pleasure in doing things: not at all 2. Feeling down, depressed, or hopeless: not at all 3. Trouble falling or staying asleep, or sleeping too much: not at all 4. Feeling tired or having little energy: not at all 5. Poor appetite or overeating: not at all 6. Feeling bad about yourself - or that you are a failure or have let yourself or your family down: not at all 7. Trouble concentrating on things, such as reading the newspaper or watching television: not at all 8. Moving or speaking so slowly that other people could have noticed. Or the opposite - being so fidgety or restless that you have been moving around a lot more than usual: not at all 9. Thoughts that you would be better off or of hurting yourself in some way: not at all Total score: 0 Depression Screening Interpretation: Negative Depression Screening Done: Yes Source: Developed by Drs. Ever Nelson, Sarah Galindo, Lopez Owen and colleagues, with an educational moira from [employer]. Thrive Questionnaire Date Thrive assessed: 06/16/24 I am a: Patient What is your living situation today?: I have a steady place to live Within the past 12 months, did the food you bought not last and you didn't have the money to get more?: Never true Within the past 12 months, did you worry whether your food would run out before you got money to buy more?: Never true Do you have trouble paying for medicines?: No Do you have trouble getting transportation to medical appointments?: No Do you have trouble paying your heating and electricity bill?: No Do you have trouble taking care of your child, family member or friend?: No Do you have trouble with day-to-day activities such as bathing, preparing meals, shopping, managing finances, etc.?: No Are you currently unemployed and looking for a job?: No Are you interested in more education?: No Please select the resources that you would like help with: None Currently or been in a relationship where the following occur: No concerns reported THRIVE Score: 0 AUDIT C Alcohol Use Questionnaire (AUDIT-C) 1. How often do you have a drink containing alcohol?: Never 3. How often do you have six or more drinks on one occasion?: Never Total Score: 0 JORGE-7 AMB Questionnaire JORGE-7 Date JORGE - 7 assessed: 06/16/24 Feeling nervous, anxious, or on edge: 0 = Not at all Not being able to stop or control worryin = Not at all Worrying too much about different things: 0 = Not at all Trouble relaxin = Not at all Being so restless that it is hard to sit still: 0 = Not at all Becoming easily annoyed or irritable: 0 = Not at all Feeling afraid as if something awful might happen: 0 = Not at all Total JORGE-7 score (0-4 normal; 5-9 mild; 10-14 moderate; 15-21 severe): 0 Source: Developed by Drs. Ever Nelson, Sarah Galindo, Lopez Owen and colleagues, with an educational moira from [employer]. Physical exam (Primary Care) Vital Signs: Last Vital Signs Temp 97.1 F 07/15/24 08:53 Pulse 97 07/15/24 08:53 BP 120/74 07/15/24 08:53 Pulse Ox 92 07/15/24 08:53 Oxygen Delivery Method Nasal Cannula 07/15/24 08:53 Oxygen Flow Rate 2 07/15/24 08:53 BMI result Body Mass Index 30.6 Tobacco/Smoking Status: Tobacco use Status Tobacco use date assessed 07/15/24 07/15/24 08:59 Patient Tobacco Use Status Former Tobacco user 07/15/24 08:50 Tobacco use type Cigarette 07/15/24 08:50 e-Cigarette/Vaping Use Former Use 07/15/24 08:50 PHQ-9: PHQ-9 Score PHQ-9: Total score 0 07/15/24 09:39 Depression Screening Interpretation: Negative Thrive Assessment: Date of Thrive Assessment Date Thrive assessed 06/16/24 07/15/24 08:50 Currently or been in a relationship where the following occur: No concerns reported Const General: alert; No acute distress Eyes Conjunctivae: conjunctivae normal Resp Auscultation: clear to auscultation bilaterally Cardio Rate: regular rate Rhythm: regular rhythm GI Inspection: Yes normal to inspection Extrem General: Yes normal to inspection and No edema Results AMB Hemoglobin A1c AMB Hemoglobin A1c 5.8 % Last Edit by Guillermina Fried CMA on 07/15/24 09:05 Results Reviewed Results Reviewed: Laboratory Last Values Hgb A1c (Clinic) 5.8 % (4.0-6.0) 07/15/24 09:00 Coding Level of Care Code Est Pt Level 4 (32511) Complex EM visit Add On G2211 Diagnoses Trochanteric bursitis of right hip M70.61 Chronic diastolic heart failure I50.32 Infrarenal abdominal aortic aneurysm (AAA) without rupture I71.43 Abdominal aorta location: infrarenal aorta Permanent atrial fibrillation I48.21 Type 2 diabetes mellitus with hyperglycemia E11.65 COPD (chronic obstructive pulmonary disease) J44.9 ILD (interstitial lung disease) J84.9 Coronary artery disease involving [place] coronary artery of [place] heart without angina pectoris I25.10 Associated angina: without angina Coronary Disease-Associated Artery/Lesion type: [place] artery [place] vs. transplanted heart: lower [place] heart Postoperative hypothyroidism E89.0 Obesity (BMI 30-39.9) E66.9 Essential hypertension I10 Hypertension type: essential hypertension Hypercholesterolemia E78.00 Assessment & Plan Assessment & Plan (1) Trochanteric bursitis of right hip: Code(s): M70.61 - Trochanteric bursitis, right hip Category: Medical Plan: Patient has been seen by ortho and has been recommended physical therapy (2) Chronic diastolic heart failure: Code(s): I50.32 - Chronic diastolic (congestive) heart failure Category: Medical Plan: Continue with diuretics continue with present medication (3) AAA (abdominal aortic aneurysm) without rupture: Comment: endovascular aneurysm repair on 07/16/2023 with Endologix a FX 2 device. Code(s): I71.40 - Abdominal aortic aneurysm, without rupture, unspecified Category: Medical Qualifiers: Abdominal aorta location: infrarenal aorta Qualified Code(s): I71.43 - Infrarenal abdominal aortic aneurysm, without rupture Plan: Patient is being followed up by vascular surgeon and has had a CAT scan. Annual monitoring (4) Permanent atrial fibrillation: Code(s): I48.21 - Permanent atrial fibrillation Category: Medical Plan: Continue with anticoagulation with Eliquis continuing to monitor renal function (5) Type 2 diabetes mellitus with hyperglycemia: Comment: Dr. Waddell and Dr. Mccord Code(s): E11.65 - Type 2 diabetes mellitus with hyperglycemia Category: Medical Plan: Decrease the amount of carbohydrate intake, pasta, bread, rice and potatoes are all sugar and that is aside from all the sweet stuff, remember that fruits are good but they are Sweet also. Hemoglobin A1c goal of less than 7.0 diet controlled (6) COPD (chronic obstructive pulmonary disease): Code(s): J44.9 - Chronic obstructive pulmonary disease, unspecified Category: Medical Plan: Continue to follow-up with Pulmonary on Breztri and albuterol as needed (7) ILD (interstitial lung disease): Code(s): J84.9 - Interstitial pulmonary disease, unspecified Category: Medical Plan: Continue to follow-up with Pulmonary and being monitored. Presently mild (8) Coronary artery disease: Comment: (NSTEMI 04/2019 - JL + proximal and distal RCA rotablation) 03/01/2024 PCI to RCA Code(s): I25.10 - Atherosclerotic heart disease of [place] coronary artery without angina pectoris Category: Medical Qualifiers: Associated angina: without angina Coronary Disease-Associated Artery/Lesion type: [place] artery [place] vs. transplanted heart: [place] heart Qualified Code(s): I25.10 - Atherosclerotic heart disease of [place] coronary artery without angina pectoris Plan: Control the cholesterol, weight, blood pressure, diabetes on anticoagulation right now (9) Postoperative hypothyroidism: Comment: (s/p left hemithyroidectomy 03/2021) Code(s): E89.0 - Postprocedural hypothyroidism Category: Medical Plan: Continue with thyroid medication (10) Obesity (BMI 30-39.9): Code(s): E66.9 - Obesity, unspecified Category: Medical Plan: Diet and exercise (11) Hypertension: Code(s): I10 - Essential (primary) hypertension Category: Medical Qualifiers: Hypertension type: essential hypertension Qualified Code(s): I10 - Essential (primary) hypertension Plan: Continue with blood pressure medication. Decrease salt intake and exercise adjustment of blood pressure recently as in the was in the hospital for hypotension decrease metoprolol presently on diltiazem diuretic (12) Hypercholesterolemia: Code(s): E78.00 - Pure hypercholesterolemia, unspecified Category: Medical Plan: Avoid fried foods, chicken skin, eggs, butter margarine, pastries and meat. Be it pork or beef they have a lot of cholesterol Le last blood work LDL goal of less than 70 on atorvastatin 80 mg once a day Plan History of Present Illness The patient is a 78-year-old male presenting for follow-up visits addressing chronic medical conditions, including obesity, hypothyroidism, essential hypertension, and coronary artery disease. He also has COPD with interstitial lung disease and a history of ascending aortic dilation. The patient's medical background includes a previous notable echocardiogram indicating an ejection fraction of 45 to 50% and the presence of a dilated left atrium. He is actively involved in cardiac rehabilitation and has had a vascular intervention related to an abdominal aortic aneurysm. Recently, the patient has experienced right hip pain, which he addressed with an orthopedic consultation. Following this, physical therapy was recommended given the deferment of an intra-articular injection. Additionally, the patient has managed diabetes primarily through dietary regulation with recent evaluations showing stability in glycemic levels. The case discussion highlighted recent adjustments in hypertension management after presenting with elevated blood pressure episodes leading to changes in his medication dosage. Furthermore, collaboration with multiple specialists, including pulmonology and vascular surgery, is evident given the interrelation of the patient's conditions. Health Maintenance - Continues to engage in cardiac rehabilitation. - Monitoring of ascending aortic dilatation with scheduled imaging. - Management of diabetes mellitus with dietary measures aiming for hemoglobin A1c <7.0. - Regular lipid profile check, latest LDL was 40 mg/dL with goal <70 mg/dL. - Monitoring and annual follow-up of thyroid nodule. - Surveillance for recurrent or new tubular adenomas following last colonoscopy results in 2021. - Follow-up with orthopedic evaluation for hip pain. Social History - Exercise and functional status discussed related to physical therapy for hip pain. - Ongoing engagement in dietary management for diabetes mellitus. Review of Systems - Musculoskeletal: Reports persistent right hip pain. Physical Exam Results - Laboratory: Mild anemia noted; blood sugar level 147 mg/dL. - Imaging: CT angiography without leak showing repaired abdominal aortic aneurysm. - Echocardiogram: Ejection fraction 45-50%, severely dilated left atrium, mild aortic stenosis. Plan The management plan revolves around a multi-faceted strategy addressing the patient's chronic conditions, focusing on cardiovascular, respiratory, and metabolic health. Following the recent evaluation, adjustments were made to antihypertensive therapy, with emphasis placed on collaborative care involving cardiology, pulmonology, and orthopedics. Lifestyle interventions remain peace, especially in managing diabetes mellitus through diet control. Ongoing follow-up with all specialty providers ensures the tailored care the patient necessitates. Regular lipid and HbA1c assessments, along with monitoring the patient's response to the current orthopedic protocol, contribute to a comprehensive approach. Patient was informed and verbally consented to the use of an ambient scribe for clinic note documentation during this visit. Discussion Notes During this visit, we reviewed the patient?s management plan for multiple chronic conditions. Discussed were the continuation of diuretics and adjusted antihypertensive strategies with diltiazem in light of primary blood pressure management. Benefits of maintaining cholesterol levels within the target range were emphasized, alongside the ongoing need for cardiac and pulmonary rehabilitation efforts to support cardiopulmonary function. We revisited the commitment to dietary measures focusing on diabetes management, ensuring A1c remains below target levels. The importance of continued anticoagulation therapy and recognizing its role in minimizing thromboembolic risks was highlighted. Patient Instructions - Continue prescribed cardiac rehabilitation exercises. - Follow dietary guidelines to manage diabetes and maintain hemoglobin A1c below 7.0. - Adhere to antihypertensive therapy as adjusted with monitoring for blood pressure changes. - Engage in prescribed physical therapy for right hip pain. - Maintain routine follow-ups with cardiology, pulmonology, and vascular surgery teams. - Report any significant changes or symptoms so appropriate adjustments can be made. Orders: Orders Thyroid Stimulating Hormone 3 Months Oswaldo Delgado MD E89.0 - Postprocedural hypothyroidism Free T4 (Free Thyroxine) 3 Months Oswaldo Delgado MD E89.0 - Postprocedural hypothyroidism Ferritin 3 Months Oswaldo Delgado MD I25.10 - Atherosclerotic heart disease of [place] coronary artery without angina pectoris Hemoglobin A1c 3 Months Oswaldo Delgado MD I25.10 - Atherosclerotic heart disease of [place] coronary artery without angina pectoris Microalbumin, Random (w Creat) 3 Months Oswaldo Delgado MD E11.65 - Type 2 diabetes mellitus with hyperglycemia, I25.10 - Atherosclerotic heart disease of [place] coronary artery without angina pectoris AMB Hemoglobin A1c Today Osawldo Delgado MD Z13.9 - Encounter for screening, unspecified B Type Natriuretic Peptide 3 Months Oswaldo Delgado MD E89.0 - Postprocedural hypothyroidism Complete Blood Count Auto Diff 3 Months Oswaldo Delgado MD I25.10 - Atherosclerotic heart disease of [place] coronary artery without angina pectoris Comprehensive Met. Panel 3 Months Oswaldo Delgado MD I25.10 - Atherosclerotic heart disease of [place] coronary artery without angina pectoris IRON PROFILE 3 Months Oswaldo Delgado MD I25.10 - Atherosclerotic heart disease of [place] coronary artery without angina pectoris Reticulocyte Count 3 Months Oswaldo Delgado MD I25.10 - Atherosclerotic heart disease of [place] coronary artery without angina pectoris Vitamin B12 and Folate 3 Months Oswaldo Delgado MD I25.10 - Atherosclerotic heart disease of [place] coronary artery without angina pectoris Vitamin D 25-OH Total 3 Months Oswaldo Delgado MD I25.10 - Atherosclerotic heart disease of [place] coronary artery without angina pectoris Lipid Panel 3 Months Oswaldo Delgado MD E78.00 - Pure hypercholesterolemia, unspecified, I25.10 - Atherosclerotic heart disease of [place] coronary artery without angina pectoris Creatinine Urine 3 Months Oswaldo Delgado MD E11.65 - Type 2 diabetes mellitus with hyperglycemia, I25.10 - Atherosclerotic heart disease of [place] coronary artery without angina pectoris Medications: Refilled cyanocobalamin (vitamin B-12) (Vitamin B-12) 1,000 mcg PO DAILY 90 tabs 3RF Oswaldo Delgado MD Resumed apixaban (Eliquis) 5 mg PO BID 90 days 180 tabs 3RF Wendi Rivera, MALIK
[2024-07-15 08:53] VITALS: BP 120/74; PULSE 97; TEMP 36.2; O2SAT 92; BMI 30.6
== END 2024-07-15 09:47 | disposition home or self-care (01) ==
LOC: HO.HMCH 08:36
PROVIDERS: PCP Internal Medicine; Visit Provider Internal Medicine
DX: E11.65 Type 2 diabetes mellitus with hyperglycemia (principal); I50.32 Chronic diastolic (congestive) heart failure; I71.43 Infrarenal abdominal aortic aneurysm, without rupture; I48.21 Permanent atrial fibrillation; J44.9 Chronic obstructive pulmonary disease, unspecified; J84.9 Interstitial pulmonary disease, unspecified; M70.61 Trochanteric bursitis, right hip; I25.10 Atherosclerotic heart disease of native coronary artery without angina pectoris; E89.0 Postprocedural hypothyroidism; E66.9 Obesity, unspecified; I10 Essential (primary) hypertension; E78.00 Pure hypercholesterolemia, unspecified

== ENCOUNTER → 2024-07-15 08:36 | Outpatient (BNVA) | payer MEDICARE, SELFPAY ==
[2024-06-12 15:09] VITALS: BMI 32.0
== END ==
PROVIDERS: PCP Internal Medicine; Visit Provider Internal Medicine
DX: M70.61 Trochanteric bursitis, right hip (principal); I11.0 Hypertensive heart disease with heart failure; I50.32 Chronic diastolic (congestive) heart failure; I71.43 Infrarenal abdominal aortic aneurysm, without rupture; I48.21 Permanent atrial fibrillation; I25.10 Atherosclerotic heart disease of native coronary artery without angina pectoris; E11.65 Type 2 diabetes mellitus with hyperglycemia; J44.9 Chronic obstructive pulmonary disease, unspecified; E89.0 Postprocedural hypothyroidism; E78.00 Pure hypercholesterolemia, unspecified; E66.9 Obesity, unspecified; Z68.30 Body mass index [BMI] 30.0-30.9, adult; Z71.3 Dietary counseling and surveillance
CPT/HCPCS: 83036; 99212

== ENCOUNTER 2024-07-21 11:52 | Outpatient (REF) | payer MEDICARE, SELFPAY ==
[2024-06-12 15:09] VITALS: BMI 32.0
[2024-07-21 13:22] LABS: Appearance Urine Clear; Color Urine Yellow; Glucose Urine UA 500 mg/dL (Negative); Leukocyte Esterase Urine Moderate (2+) (Negative); Nitrite Urine Negative (Negative); PH 5.5 (5.0-9.0); Specific Gravity - Urine 1.015 (1.005-1.025); UMIC TRIGGER UACC YES; Urine Blood Negative (Negative); Urine Ketones Negative (Negative); Urine Protein Negative (Neg-Trace)
[2024-07-21 13:30] LABS: Bacteria Urine None Seen (None Seen); Hyaline Casts Urine 0-2 /LPF (0-2); RBC Urine 0-2 /HPF (0-2); Squamous Epithelial Cell Urine 0-2 /HPF (0-2); UACC Culture Trigger YES; WBC Urine >50 /HPF (0-5)
--- OUTSIDE RECORDS SUMMARY | 2024-07-21 14:13 | XMS_ITS | Data Portability ---
Author Organization [facility], [address] [place] [address] Assessment No assessment recorded. Plan of Treatment [...] By Organization Details Last Modified Time 05/18/2022 [id number] cuts: care instructions [email or web address] Not available 05/18/2022 [...] Address Organization Details Recorded Time Atrial fibrillation 68765135 Active 2022 Malika Shana null, [place] - [facility] 3 13:50:16 Chronic obstructive pulmonary disease 36981136 Active 2022 Malika Wilsall null, PA - [facility] 3 13:50:20 Hypertensive disorder 82324990 Active 2022 Malika Shana null, PA - [facility] 3 13:50:27 Hyperlipidemia 94727150 Active 2022 Malika Wilsall null, PA - [facility] 3 13:50:33 Problem Notes None recorded. Medical Equipment None Reported. Allergies Allergen ID Allergen Name Allergen Category Reaction Reaction Severity Criticality Documentation Date Start Date Code Code System Note Provider Name and Address Organization Details Recorded Time 398561 Product containin g penicilli n (product) medicatio n anaphylax is Not available high 05/18/2022 61932 8001 SNOMED Malika Shana null, PA - [...] Updated DateTime 3 172.72 cm 31.9 kg/m2 00479.4 g 95 % 95 % 97 /min [...] SNOMED-CT Code Diagnosis ICD10 Code Diagnosis Note [id number] [address] [place] [address] 05/04/2019 10:15:48 05/04/2019 11:04:20 [id number] [address] [place] [address] 08/22/2017 10:46:43 08/22/2017 11:28:26 [id number] [address] [place] [address] 11/06/2019 08:12:57 11/06/2019 08:47:49 [id number] [address] [facility] [place] [address] 09/10/2018 10:01:20 09/10/2018 11:14:04 [id number] 20[address]Yolande [address] [facility] [place] [address] 11/07/2019 08:20:04 11/07/2019 10:41:03 [id number] 20995Jose Mejíar [place] [facility] [place] [address] 03/02/2020 09:28:03 03/02/2020 11:43:55 [id number] 2099Yolande Mejíar [place] [facility] [place] [address] 11/04/2019 08:03:33 11/04/2019 09:40:15 [id number] Donavan Hankins DO [address] [facility] [place] [address] 05/18/2022 13:41:02 05/18/2022 14:28:46 Laceration of left hand [id number] S61.412A following oral consent wound was cleaned [...] [place] [employer] [place] Edward P Halton [id number] 25 Edward P Halton 11/04/2019 2 [place] [id number] Edward P Halton [id number] Edward P Halton 11/06/2019 1 [place] [employer] Edward P Halton [id number] Edward P Halton 11/06/2019 2 [place] [id number] Edward P Halton [id number] Edward P Halton 11/07/2019 1 [place] B-[place]: [facility] G[facility]ERNMENT SERVICES Edward P Halton [id number] Edward P Halton 11/07/2019 2 [place] [id number] Edward P Halton [id number] Edward P Halton 03/02/2020 1 [place] B[place]: [facility] GOVERNMENT SERVICES Edward P Halton [id number] Edward P Halton 03/02/2020 2 [place] [id number] Edward P Halton [id number] Edward P Halton 05/18/2022 1 [place] B-[place]: [facility] Edward P Halton [id number] 25 Edward P Halton 05/18/2022 2 [place] [id number] Edward P Halton [id number] Edward P Halton Notes Date Note Type Note Provider Name and Address Organization Details Recorded Time 05/18/2022 text/html UC Wound/LacerationRep orted bypatient.Notes:76 yo malescratched by his house malik plavix and eliquisstill bleedingtried band aids w/o improvementno f/c/n/vminimal pain no CPno SOBno Hano dizzinessno f/c/n/v Donavan Hicksit, DO [address] [place], [address], [place] - [facility] 05/18/2022 14:30:26
--- OUTSIDE RECORDS SUMMARY | 2024-07-21 14:13 | XMS_ITS | Patient Health Record ---
Author Organization [facility] Address [address] [place] [address] Care Team Providers Care Dredgemaster Name Role Phone Oswaldo Delgado MD Primary Care Provider Ever Colmenares [phone] Allergies Allergen (clinical drug ingredient) Drug/Non Drug [...] Problem Status W/U Status Risk Notes Problem [id number] Encounter for screening for malignant neoplasm of colon (Z12.11) Active confirmed Problem Diverticulosis of colon (455648316) Diverticulosis of colon (K57.30) Active confirmed Problem 37664874 Esophageal dysphagia (R13.19) Active confirmed Problem 798083199 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) Active confirmed Plan Of Treatment Pending Test Test Name Order Date XR BARIUM SWALLOW-ESOPHAGUS 05/23/2022 Future Test Test Name Order Date COLONOSCOPY 04/27/2021 Insurance Providers Payer Name Payer Address Payer Phone Subscriber Number Group Number Insured Name Patient Relationship to Insured Coverage Start Date Coverage End Date MEDICARE OF [place] [address] [place] [address] [phone] [id number] FAISAL ARELLANO Self - patient is the insured MEDEX ATTN CLAIMS [address] [place] [address] [id number] FAISAL ARELLANO Self - patient is the insured Medical (General) History Medical History History ICD Code Ascending aortic aneurysm COPD Coronary artery disease--SD and 2 stents in 2019-Dr. Jean-Baptiste Osteoporosis Psoriasis - on humira pulmonary nodule Renal stones Thyroid nodule Vitamin D deficiency Wedge compression fracture of T9 vertebr a Hypertension Afib Denies DM,CVA,renal disease Negative screening colonoscopy in 2007 Colonoscopy 05/2020 with a small tubular adenoma removed Surgical History Surgery Date(Month/Year) Appendectomy Tonsillectomy Lung biopsy 11/22/2016 Thyroid-benign
== END 2024-07-21 11:53 | disposition home or self-care (01) ==
LOC: HO.HMGCLDS 11:52
PROVIDERS: PCP Internal Medicine; Visit Provider Internal Medicine
DX: R39.9 Unspecified symptoms and signs involving the genitourinary system (principal)
CPT/HCPCS: 81001; 87086

== ENCOUNTER 2024-07-24 17:53 | Emergency (ER) | payer MEDICARE, SELFPAY ==
[2024-07-21 15:00] VITALS: BMI 32.0
--- NOTE | ~2024-07-24 | XR_ITS ---
CLINICAL HISTORY: palitations 2 view chest x-ray Comparison: CR/SR - XR CHEST 2V - 05/06/24 09:57 EST Findings: There are linear and reticular opacities at the base of the right lung. Similar finding on the prior study. No consolidation or pleural effusion. Heart size is normal. No acute fracture. IMPRESSION: Interstitial infiltrates and/or scarring at the base of the right lung. This document has been electronically signed by: Yessenia Saab MD on 07/24/2024 19:01:18
--- NOTE | 2024-07-24 17:54 | ECG_ITS ---
Test Reason : CHEST PAIN Blood Pressure : */* mmHG Vent. Rate : 100 BPM Atrial Rate : * BPM P-R Int : * ms QRS Dur : 80 ms QT Int : 336 ms P-R-T Axes : * 16 37 degrees QTcB Int : 433 ms Atrial fibrillation Abnormal ECG When compared with ECG of 12-Jun-2024 05:05, No significant change was found Referred By: Generic ED Physician Electronically Signed By: AUTUMN MANCINI
[2024-07-24 18:15] VITALS: BP 131/91; PULSE 108; RESP 18; TEMP 36.8; O2SAT 97; BMI 29.8
[2024-07-24 18:42] LABS: MANUAL DIFF FLAG NO
--- NOTE | 2024-07-24 19:02 | ED.GENADULT ---
HPI - General Adult General Chief complaint: Arrhythmia/Palpitations Stated complaint: palpitations Time Seen by Provider: 07/24/24 23:04 Source: patient Mode of arrival: ambulatory Limitations: no limitations History of Present Illness ED Provider: HPI narrative: Patient's history of atrial fibrillation on diltiazem and metoprolol dose of diltiazem with decreased from 180-120 mg last week patient's blood pressure usually in 120s today noticed his blood pressure was 168 systolic and heart rate was 142 with lasted only for few minutes when patient arrived here was 131/91 with pulse rate of 108 patient is on ciprofloxacin for UTI denies any shortness a breath or chest pain Related Data Home Medications ?Medication ?Instructions ?Recorded ?Confirmed adalimumab 40 mg/0.4 mL 40 mg subcut Q2W 10/10/22 06/22/24 subcutaneous pen kit (Humira(CF) Pen) clopidogrel 75 mg tablet 75 mg PO DAILY 04/16/24 06/22/24 Previous Rx's ?Medication ?Instructions ?Recorded OXYGEN 2 L NC keep sats > 90 #1 ea 02/12/22 PORTABLE OXYGEN TANK #1 ea 02/22/22 compress.stocking,knee,reg,med #2 ea 04/10/22 apixaban 5 mg tablet (Eliquis) 5 mg PO BID 90 days #180 tabs 01/03/24 levothyroxine 50 mcg tablet 50 mcg PO DAILY@0600 #90 tabs 03/24/24 furosemide 20 mg tablet (Lasix) 40 mg (2 x 20 mg) PO QAM #120 tabs 05/13/24 metoprolol tartrate 25 mg tablet 50 mg (2 x 25 mg) PO BID 30 days 05/13/24 #120 tabs diclofenac sodium 1 % topical gel 4 g topical QID #100 grams 05/18/24 (Arthritis Pain (diclofenac)) cholecalciferol (vitamin D3) 50 50 mcg PO DAILY #90 caps 06/01/24 mcg (2,000 unit) capsule digoxin 125 mcg (0.125 mg) tablet 125 mcg PO 3XW #36 tabs 06/04/24 budesonide 160 mcg-glycopyr 9 2 inh inhalation BID #10.7 grams 06/09/24 mcg-formot 4.8 mcg/actuation HFA inhaler (Breztri Aerosphere) potassium chloride 10 mEq 10 meq PO BID #60 tabs 06/09/24 tablet,extended release (Klor-Con) atorvastatin 80 mg tablet 80 mg PO BEDTIME #90 tabs 06/24/24 famotidine 20 mg tablet 20 mg PO BID 90 days #180 tabs 06/24/24 ferrous sulfate 325 mg (65 mg 325 mg PO DAILY 90 days #90 tabs 06/27/24 iron) tablet,delayed release cyanocobalamin (vitamin B-12) 1,000 mcg PO DAILY #90 tabs 07/15/24 1,000 mcg tablet (Vitamin B-12) diltiazem HCl 120 mg 120 mg PO DAILY #90 caps 07/20/24 capsule,extended release 24 hr empagliflozin 10 mg tablet 10 mg PO DAILY #90 tabs 07/20/24 ciprofloxacin HCl 500 mg tablet 500 mg PO BID #10 tabs 07/22/24 tamsulosin 0.4 mg capsule 0.8 mg (2 x 0.4 mg) PO DAILY #60 07/23/24 caps Allergies Allergy/AdvReac Type Severity Reaction Status Date / Time Penicillins Allergy Severe Anaphylaxis Verified 07/24/24 18:18 hydrochlorothiazide Allergy Unknown Unknown Verified 07/24/24 18:18 lisinopril Allergy Unknown Unknown Verified 07/24/24 18:18 regadenoson [From Lexiscan] AdvReac Bradycardic Verified 07/24/24 18:18 Review of Systems Review of Systems: Yes all other systems are reviewed and are negative [facility] Past Medical History Medical History Atrial fibrillation with rapid ventricular response Supplemental oxygen dependent ILD (interstitial lung disease) COPD (chronic obstructive pulmonary disease) Tubular adenoma of colon (~2021) Postoperative hypothyroidism Obesity (BMI 30-39.9) Atrial fibrillation Chest discomfort Bronchitis Hemoptysis HOLLOWAY (dyspnea on exertion) Abnormal SPEP Multinodular thyroid Swelling of left lower extremity Pulmonary nodules/lesions, multiple Ground glass opacity present on imaging of lung Wedge compression fracture of T9 vertebra (~2018) Coronary artery disease Hypertension Right renal stone Thyroid nodule Vitamin D deficiency Ascending aorta dilatation Obesity (BMI 30-39.9) Psoriasis Hypercholesterolemia Former smoker Stable angina Surgical History Status post AAA (abdominal aortic aneurysm) repair Hx of bilateral cataract extraction (~2022) History of partial thyroidectomy (~2020) History of heart artery stent (~2019) History of colonoscopy History of cardioversion (~2020) History of appendectomy History of tonsillectomy History of lung biopsy (~2016) Family History Family History Father Heart disease Mother Throat cancer Paternal Grandfather Heart disease Social History Social History Household Members: Spouse Housing: House Are you a primary post acute care registered nurse to a significant other at home: No Do you presently have visiting nurse or other home services: No Unable to assess alcohol history related to: Unknown Alcohol intake: former Year quit: 2014 Patient Tobacco Use Status: Former Tobacco user Tobacco use type: Cigarette Years Smoked: 50 e-Cigarette/Vaping Use: Former Use Second Hand Smoke Exposure: Yes Advance Directives: No Advance Directives Information Provided: Yes Advance Directives Date on File: 09/21/20 service: Yes Current occupational status: retired Cognitive needs: No Hearing needs: No Vision needs: Yes (Glasses) Physical Exam ED Vital Signs: Vital Signs - 24 hr 07/24/24 18:15 07/24/24 22:59 07/25/24 00:06 Temperature 98.3 F 97.6 F Pulse Rate 108 H 97 92 Respiratory Rate 18 16 20 Blood Pressure 131/91 H 161/95 H 151/99 H Pulse Oximetry 97 98 99 Oxygen Delivery Method Room Air Room Air Nasal Cannula Oxygen Flow Rate 2 07/25/24 00:42 Temperature 98.8 F Pulse Rate 92 Respiratory Rate 20 Blood Pressure 151/99 H Pulse Oximetry 99 Oxygen Delivery Method Nasal Cannula Oxygen Flow Rate 2 BMI result Body Mass Index 29.8 Appearance: Alert. Oriented X3. No acute distress. Eyes: No pallor or icterus ENT: Pharynx normal. Oral Mucosa moist Neck: Normal inspection. Neck supple. CVS: Irregularly irregular heart rate. Pulses normal. Respiratory: No respiratory distress. Equal air entry bilateral, no wheezing/rales/rhonchi Abdomen: Soft and nontender. Bowel sounds are present, no mass palpable, no CVA tenderness Skin: Skin warm and dry. Normal skin color. Normal skin turgor. Extremities: No lower extremity edema. No calf tenderness Neuro: Oriented X 3. No motor deficit. Course Course Course Narrative: RME performed by Renetta Yen PA-C. Patient is a 78 year old assigned male at presenting to the emergency department today feeling generally unwell. Patient states he felt flush about an hour ago and has not felt right since. Patient states that he has no shortness of breath and he is on 2liters of oxygen at baseline. Detailed physical exam and review of systems are deferred to the waxer tender. EKG, labs, imaging, and swabs ordered. Patient placed back in the waiting room pending room availability and results. Medications Administered Discontinued Medications Generic Name Dose Route Start Last Admin Trade Name Freq PRN Reason Stop Dose Admin Metoprolol Tartrate 25 mg 07/25/24 00:07 07/25/24 00:13 Metoprolol Tartrate 25 Mg Tablet PO 07/25/24 00:08 25 mg ONCE ONE Administration Protocol Medical Decision Making Medical Decision Making [facility] Narrative: Patient with paroxysmal AFib on amiodarone Cardizem and metoprolol noticed a brief episode of palpitation with blood pressure on the higher side asymptomatic at this time will give extra dose of Lopressor 25 mg advised to follow up with cruller maker patient has also has UTI treated with Cipro culture was negative Lab Data [facility] Lab Attestation statement: I reviewed the patient's lab results. 07/24/24 18:37 07/24/24 18:37 Labs: Lab Results 07/24/24 07/25/24 Range/Units 18:37 00:08 WBC 8.2 (4.8-10.8) X10*3/uL RBC 3.38 L (4.60-5.80) X10*6/uL Hgb 11.7 L (14.0-18.0) g/dl Hct 34.9 L (42.0-52.0) % MCV 103.3 H (80.0-98.0) fL MCH 34.6 H (27.0-33.0) pg MCHC 33.5 (31.0-36.0) g/dl RDW 14.3 (11.0-16.0) % Plt Count 169 (160-400) X10*3/uL MPV 9.4 (9.4-12.4) fL Immature Gran % (Auto) 0.5 H (0.0-0.4) % Neut % (Auto) 73.7 H (45-73) % Lymph % (Auto) 15.0 L (20-40) % [place]ball % (Auto) 9.5 (2-11) % Eos % (Auto) 1.1 (0-4) % Baso % (Auto) 0.2 (0-2) % Lymph # (Auto) 1.2 (1.2-4.9) X10*3/uL [place]ball # (Auto) 0.8 (0.1-1.2) X10*3/uL Eos # (Auto) 0.1 (0.0-0.4) X10*3/uL Baso # (Auto) 0.0 (0.0-0.2) X10*3/uL Abs Immat Gran (auto) 0.04 H (0.00-0.03) X10*3/uL Absolute Neuts (auto) 6.0 (2.0-8.3) x10*3/uL Absolute Nucleated RBC 0.000 (0.0-0.012) X10*3/uL Nucleated RBC % (auto) 0.0 (0.0-0.2) /100WBC Sodium 140 (135-145) mmol/L Potassium 4.5 D (3.3-5.1) mmol/L Chloride 106 (96-108) mmol/L Carbon Dioxide 25 (22-29) mmol/L Anion Gap 14 (12-20) BUN 29 H (9-16) mg/dL Creatinine 0.97 (0.5-1.4) mg/dL Estim Creat Clear Calc 70.1 Estimated GFR > 60 Random Glucose 117 H (60-115) mg/dL Calcium 8.7 (8.4-10.2) mg/dL Total Bilirubin 0.5 (0.0-1.0) mg/dL AST 25 (5-37) U/L ALT 27 (0-40) U/L Alkaline Phosphatase 157 H (39-117) U/L Troponin I High Sens < 2.7 (<3.5-35.0) ng/L Total Protein 7.6 (6.5-8.0) g/dL Albumin 3.8 (3.5-5.0) g/dL Urine Color Yellow Urine Appearance Turbid Urine pH 5.5 (5.0-9.0) Ur Specific [place] >= 1.030 H (1.005-1.025) Urine Protein 30 (1+) H (Neg-Trace) mg/dL Urine Glucose (UA) >=1000 H (Negative) mg/dL Urine Ketones Trace (Negative) mg/dL Urine Blood Large (3+) H (Negative) Urine Nitrite Negative (Negative) Ur Leukocyte Esterase Moderate (2+) H (Negative) Urine RBC 11-20 H (0-2) /HPF Urine WBC 21-50 (0-5) /HPF Urine WBC Clumps Present Ur Squamous Epith Cells 3-5 (0-2) /HPF Urine Bacteria Trace (None Seen) Hyaline Casts 0-2 (0-2) /LPF Influenza Type A (PCR) NEGATIVE (Negative) Influenza Type B (PCR) NEGATIVE (Negative) RSV RNA Qual (PCR) NEGATIVE (Negative) SARS-CoV-2 RNA (RT-PCR) NEGATIVE (Negative) Independent Interpretation I performed an independent interpretation of an: EKG Interpretation: Atrial fibrillation with ventricular rate of 100 beats per minute no acute STT wave changes no acute ischemia Radiology Impression Discussion of test interpretation with radiology: I have reviewed the radiologist's reading. Radiologist Impression: Chronic changes Discharge Plan Discharge Clinical Impression: Atrial fibrillation Hypertension Qualifiers: Hypertension type: essential hypertension Qualified Code(s): I10 - Essential (primary) hypertension Patient Disposition: Home, Self-Care Instructions: A-fib (Atrial Fibrillation) (ED), Chronic Hypertension (ED) Additional Instructions: Continue your medications and follow up with your cruller maker You may take extra dose of metoprolol if have palpitation episodes or high blood pressure higher than 140/90 Prescriptions: No Action (DME) OXYGEN 2 L NC keep sats > 90 See Rx Instructions .Route .MEDSUPPLY Qty: 1 0RF Rx Instructions: As directed (DME) PORTABLE OXYGEN TANK See Rx Instructions .Route .MEDSUPPLY Qty: 1 0RF Rx Instructions: As directed Eliquis 5 mg tablet 5 mg PO BID 90 Days Qty: 180 3RF levothyroxine 50 mcg tablet 50 mcg PO DAILY@0600 Qty: 90 2RF cholecalciferol (vitamin D3) 50 mcg (2,000 unit) capsule 50 mcg PO DAILY Qty: 90 3RF digoxin 125 mcg (0.125 mg) tablet 125 mcg PO 3XW Qty: 36 4RF potassium chloride [Klor-Con 10] 10 mEq tablet extended release 10 meq PO BID Qty: 60 1RF Breztri Aerosphere 160-9-4.8 mcg/actuation HFA aerosol inhaler 2 inh inhalation BID Qty: 10.7 6RF atorvastatin 80 mg tablet 80 mg PO BEDTIME Qty: 90 2RF famotidine 20 mg tablet 20 mg PO BID 90 Days Qty: 180 1RF ferrous sulfate 325 mg (65 mg iron) tablet,delayed release (DR/EC) 325 mg PO DAILY 90 Days Qty: 90 1RF diltiazem HCl 120 mg capsule,extended release 24hr 120 mg PO DAILY Qty: 90 3RF empagliflozin 10 mg tablet 10 mg PO DAILY Qty: 90 3RF ciprofloxacin HCl 500 mg tablet 500 mg PO BID Qty: 10 0RF tamsulosin 0.4 mg capsule 0.8 mg PO DAILY Qty: 60 1RF (DME) compress.stocking,knee,reg,med Misc See Rx Instructions .Route Qty: 2 0RF Rx Instructions: As directed 20-30 mm HG Humira(CF) Pen 40 mg/0.4 mL pen injector kit 40 mg subcut Q2W Rx Instructions: Every 2 weeks on SA or TOLBERT clopidogrel 75 mg tablet 75 mg PO DAILY Rx Instructions: Take 4 tablets today and start taking 1 tablet daily from tomorrow. 02/2024 metoprolol tartrate 25 mg tablet 50 mg PO BID 30 Days Qty: 120 5RF Rx Instructions: two tablets twice daily furosemide [Lasix] 20 mg tablet 40 mg PO QAM Qty: 120 5RF cyanocobalamin (vitamin B-12) [Vitamin B-12] 1,000 mcg tablet 1,000 mcg PO DAILY Qty: 90 3RF diclofenac sodium [Arthritis Pain (diclofenac)] 1 % gel 4 g topical QID Qty: 100 3RF Rx Instructions: apply to single knee, ankle, foot; for foot includes sole/toes/top of foot Interventions: ED Discharge Assessment Last Done: 07/25/24 00:42 Discharge Date/Time: 07/25/24 00:45 Print Language: Italian
[2024-07-24 19:04] LABS: Alanine Aminotransferase 27 U/L (0-40); Albumin Level 3.8 g/dL (3.5-5.0); Alkaline Phosphatase 157 U/L (39-117); Anion Gap 14 (12-20); Aspartate Amino Transferase 25 U/L (5-37); Bilirubin Total 0.5 mg/dL (0.0-1.0); Blood Urea Nitrogen 29 mg/dL (9-16); Calcium 8.7 mg/dL (8.4-10.2); Carbon Dioxide 25 mmol/L (22-29); Chloride 106 mmol/L (96-108); Creatinine Clr Calc Pharmacy 70.1; Estimated Glomerular Filt Rate > 60; Glucose Random 117 mg/dL (60-115); Potassium 4.5 mmol/L (3.3-5.1); Sodium 140 mmol/L (135-145); Total Protein 7.6 g/dL (6.5-8.0); Troponin-I High Sensitivity < 2.7 ng/L (<3.5-35.0)
[2024-07-24 19:06] LABS: Basophils Percent Auto 0.2 % (0-2); Eosinophils Absolute Auto 0.1 X10*3/uL (0.0-0.4); Eosinophils Percent Auto 1.1 % (0-4); Hematocrit 34.9 % (42.0-52.0); Hemoglobin 11.7 g/dl (14.0-18.0); Imm Gran Abs Auto 0.04 X10*3/uL (0.00-0.03); Imm Gran Pct Auto 0.5 % (0.0-0.4); Lymphocytes Absolute Auto 1.2 X10*3/uL (1.2-4.9); Mean Corpuscular HGB Conc 33.5 g/dl (31.0-36.0); Mean Corpuscular Hemoglobin 34.6 pg (27.0-33.0); Mean Corpuscular Volume 103.3 fL (80.0-98.0); Mean Platelet Volume 9.4 fL (9.4-12.4); Monocytes Absolute Auto 0.8 X10*3/uL (0.1-1.2); Monocytes Percent Auto 9.5 % (2-11); Neutrophils Percent Auto 73.7 % (45-73); Platelet Count 169 X10*3/uL (160-400); Red Blood Count 3.38 X10*6/uL (4.60-5.80); Red Cell Distribution Width 14.3 % (11.0-16.0); White Blood Count 8.2 X10*3/uL (4.8-10.8)
[2024-07-24 19:19] LABS: Influenza A PCR NEGATIVE (Negative); Influenza B PCR NEGATIVE (Negative); Resp Syncy Virus RNA Qual PCR NEGATIVE (Negative); SARS COV2 PCR INHOUSE NEGATIVE (Negative)
--- NOTE | 2024-07-24 22:55 | PC.NURSE ---
Pt presents for evaluation of high blood pressure. Did a routine check of his BP at approx 1600 hours and over time it continued to rise. Pt denies any accompanying pain/discomfort including any chest pain, SOB, abd pain, nausea/vomiting, headache/dizzines, or recent illness/fever. Reported compliance with all prescribed medications. Food/fluid intake WNL and no problems voiding.
[2024-07-24 22:59] VITALS: BP 161/95; PULSE 97; RESP 16; TEMP 36.4; O2SAT 98
--- NOTE | 2024-07-24 23:01 | PC.NURSE ---
Currently on antibiotics for UTI. Scheduled to finish antibiotics on Saturday.
--- OUTSIDE RECORDS SUMMARY | 2024-07-24 23:25 | XMS_ITS | Data Portability ---
Author Organization [facility], [address] Address [address] [place] [address] Assessment No assessment recorded. Plan of Treatment [...] By Organization Details Last Modified Time 05/18/2022 [id number] cuts: care instructions [email or web address] Not available 05/18/2022 [...] Address Organization Details Recorded Time Atrial fibrillation 15709525 Active 2022 Malika Shana null, PA - [facility] 3 13:50:16 Chronic obstructive pulmonary disease 24646934 Active 2022 Malika Madera null, PA - [facility] 3 13:50:20 Hypertensive disorder 89868907 Active 2022 Malika Shana null, PA - [facility] 3 13:50:27 Hyperlipidemia 17066886 Active 2022 Malika Madera null, PA - [facility] 3 13:50:33 Problem Notes None recorded. Medical Equipment None Reported. Allergies Allergen ID Allergen Name Allergen Category Reaction Reaction Severity Criticality Documentation Date Start Date Code Code System Note Provider Name and Address Organization Details Recorded Time 251917 Product containin g penicilli n (product) medicatio n anaphylax is Not available high 05/18/2022 48360 8001 SNOMED Malika Shana null, PA - [...] Updated DateTime 3 172.72 cm 31.9 kg/m2 81796.4 g 95 % 95 % 97 /min [...] SNOMED-CT Code Diagnosis ICD10 Code Diagnosis Note [id number] [address] [place] [address] 05/04/2019 10:15:48 05/04/2019 11:04:20 [id number] [address] [place] [address] 08/22/2017 10:46:43 08/22/2017 11:28:26 [id number] [address] [place] [address] 11/06/2019 08:12:57 11/06/2019 08:47:49 [id number] [address] [facility] [place] [address] 09/10/2018 10:01:20 09/10/2018 11:14:04 [id number] 20[address]Yolande [address] [facility] [address] 11/07/2019 08:20:04 11/07/2019 10:41:03 [id number] 20995Jose Mejíar Ferm[address] [facility] [place] [address] 03/02/2020 09:28:03 03/02/2020 11:43:55 [id number] 2099Yolande Mej[address]ar [address] [facility] [address] 11/04/2019 08:03:33 11/04/2019 09:40:15 [id number] Donavan Hankins DO [address] [facility] [place] [address] 05/18/2022 13:41:02 05/18/2022 14:28:46 Laceration of left hand [id number] S61.412A following oral consent wound was cleaned [...] [place] [employer] Edward P Halton [id number] Edward P Halton 11/04/2019 2 [place] [id number] Edward P Halton [id number] Edward P Halton 11/06/2019 1 [place] B[place] [employer] Edward P Halton [id number] Edward P Halton 11/06/2019 2 [place] [id number] Edward P Halton [id number] Edward P Halton 11/07/2019 1 MED[place] B-[place]: [facility] Edward P Halton [id number] 25 Edward P Halton 11/07/2019 2 [place] [id number] Edward P Halton [id number] Edward P Halton 03/02/2020 1 [place] B[place] [facility] Edward P Halton [id number] Edward P Halton 03/02/2020 2 [place] [id number] Edward P Halton [id number] Edward P Halton 05/18/2022 1 MEDICARE B-[place]: [facility] Edward P Halton [id number] 25 Edward P Halton 05/18/2022 2 [place] [id number] Edward P Halton [id number] 87 Edward P Halton Notes Date Note Type Note Provider Name and Address Organization Details Recorded Time 05/18/2022 text/html UC Wound/LacerationRep orted bypatient.Notes:76 yo malescratched by his house malik plavix and eliquisstill bleedingtried band aids w/o improvementno f/c/n/vminimal pain no CPno SOBno Hano dizzinessno f/c/n/v Donavan Hicksit, DO [address] [place], [address], [place] - [facility] 05/18/2022 14:30:26
--- OUTSIDE RECORDS SUMMARY | 2024-07-24 23:25 | XMS_ITS | Patient Health Record ---
Author Organization [facility] Address [address] [place] [address] Care Team Providers Care Secondary Social Studies Teacher Name Role Phone Oswaldo Delgado MD Primary Care Provider Ever Colmenares [phone] Allergies Allergen (clinical drug ingredient) Drug/Non Drug [...] Problem Status W/U Status Risk Notes Problem 486820286 Encounter for screening for malignant neoplasm of colon (Z12.11) Active confirmed Problem Diverticulosis of colon (897209420) Diverticulosis of colon (K57.30) Active confirmed Problem 76210202 Esophageal dysphagia (R13.19) Active confirmed Problem 852399597 buttermaker curren t use of anticoagulant (Z79.01) Active confirmed Plan Of Treatment Pending Test Test Name Order Date XR BARIUM SWALLOW-ESOPHAGUS 05/23/2022 Future Test Test Name Order Date COLONOSCOPY 04/27/2021 Insurance Providers Payer Name Payer Address Payer Phone Subscriber Number Group Number Insured Name Patient Relationship to Insured Coverage Start Date Coverage End Date MED[place]ARE OF [place] [address] [place] [address] [id number] FAISAL ARELLANO Self - patient is the insured MEDEX ATTN CLAIMS [address] [place] [address] [id number] FAISAL ARELLANO Self - patient is the insured Medical (General) History Medical History History ICD Code Ascending aortic aneurysm COPD Coronary artery disease--[place] and 2 stents in 2019-Dr. Jean-Baptiste Osteoporosis Psoriasis - on humira pulmonary nodule Renal stones Thyroid nodule Vitamin D deficiency Wedge compression fracture of T9 vertebr a Hypertension Afib Denies DM,CVA,renal disease Negative screening colonoscopy in 2007 Colonoscopy 05/2020 with a small tubular adenoma removed Surgical History Surgery Date(Month/Year) Appendectomy Tonsillectomy Lung biopsy 11/22/2016 Thyroid-benign
[2024-07-25 00:06] VITALS: BP 151/99; PULSE 92; RESP 20; O2SAT 99
[2024-07-25] MEDS: Metoprolol Tartrate 25 MG TABLET PO (00:13)
[2024-07-25 00:15] LABS: Appearance Urine Turbid; Color Urine Yellow; Glucose Urine UA >=1000 mg/dL (Negative); Leukocyte Esterase Urine Moderate (2+) (Negative); Nitrite Urine Negative (Negative); PH 5.5 (5.0-9.0); Specific Gravity - Urine >= 1.030 (1.005-1.025); UMIC TRIGGER UACC YES; Urine Blood Large (3+) (Negative); Urine Ketones Trace mg/dL (Negative); Urine Protein 30 (1+) mg/dL (Neg-Trace)
[2024-07-25 00:26] LABS: Bacteria Urine Trace (None Seen); Hyaline Casts Urine 0-2 /LPF (0-2); UACC Culture Trigger YES; WBC Clumps Urine Present; WBC Urine 21-50 /HPF (0-5)
[2024-07-25 00:42] VITALS: BP 151/99; PULSE 92; RESP 20; TEMP 37.1; O2SAT 99
== END 2024-07-25 00:45 | disposition home or self-care (01) ==
PROVIDERS: Emergency Provider Internal Medicine; PCP Internal Medicine
DX: I49.9 Cardiac arrhythmia, unspecified (principal); I48.91 Unspecified atrial fibrillation; R07.89 Other chest pain; I10 Essential (primary) hypertension; Z79.01 Long term (current) use of anticoagulants; Z79.899 Other long term (current) drug therapy; Z03.818 Encounter for observation for suspected exposure to other biological agents ruled out
CPT/HCPCS: 0241U; 71046; 80053; 81001; 84484; 85025; 87086; 93005; 99283; 99284

== ENCOUNTER → 2024-07-24 17:54 | Outpatient (BNV) | payer MEDICARE, SELFPAY ==
[2024-07-21 15:00] VITALS: BMI 32.0
== END ==
PROVIDERS: Emergency Provider Internal Medicine; PCP Internal Medicine; Visit Provider Internal Medicine
DX: I48.91 Unspecified atrial fibrillation (principal)
CPT/HCPCS: 93010

== ENCOUNTER → 2024-07-24 18:20 | Outpatient (BNV) | payer MEDICARE, SELFPAY ==
[2024-07-21 15:00] VITALS: BMI 32.0
== END ==
PROVIDERS: Visit Provider Radiology Diagnostic Radiology
DX: R91.8 Other nonspecific abnormal finding of lung field (principal)
CPT/HCPCS: 71046

== ENCOUNTER 2024-08-07 08:01 | Outpatient (AMB) | payer MEDICARE, SELFPAY ==
[2024-07-21 15:00] VITALS: BMI 32.0
--- OUTSIDE RECORDS SUMMARY | 2024-08-07 08:06 | XMS_ITS | Patient Health Record ---
Author Organization [facility] Address [address] [place] [address] Care Team Providers Care Civil Engineering Teacher Name Role Phone Oswaldo Delgado MD Primary Care Provider Ever Colmenares [phone] Allergies Allergen (clinical drug ingredient) Drug/Non Drug [...] Problem Status W/U Status Risk Notes Problem 359794212 Encounter for screening for malignant neoplasm of colon (Z12.11) Active confirmed Problem Diverticulosis of colon (718555529) Diverticulosis of colon (K57.30) Active confirmed Problem 62647121 Esophageal dysphagia (R13.19) Active confirmed Problem 803679641 care home curren t use of anticoagulant (Z79.01) Active confirmed Plan Of Treatment Pending Test Test Name Order Date XR BARIUM SWALLOW-ESOPHAGUS 05/23/2022 Future Test Test Name Order Date COLONOSCOPY 04/27/2021 Insurance Providers Payer Name Payer Address Payer Phone Subscriber Number Group Number Insured Name Patient Relationship to Insured Coverage Start Date Coverage End Date MED[place]ARE OF [place] [address] [place] [address] [id number] FAISAL ARELLANO Self - patient is the insured MEDEX ATTN CLAIMS [address] [place] [address] [phone] [id number] FAISAL ARELLANO Self - patient is the insured Medical (General) History Medical History History ICD Code Ascending aortic aneurysm COPD Coronary artery disease--[place] and 2 stents in 2019-Dr. Jean-Baptiste Osteoporosis Psoriasis - on humira pulmonary nodule Renal stones Thyroid nodule Vitamin D deficiency Wedge compression fracture of T9 vertebr a Hypertension Afib Denies DM,CVA,renal disease Negative screening colonoscopy in 2007 Colonoscopy 05/2020 with a small tubular adenoma removed Surgical History Surgery Date(Month/Year) Appendectomy Tonsillectomy Lung biopsy 11/22/2016 Thyroid-benign
--- OUTSIDE RECORDS SUMMARY | 2024-08-07 08:07 | XMS_ITS | Data Portability ---
Author Organization [facility], [address] Address [address] [place] [address] Assessment No assessment recorded. Plan of Treatment [...] By Organization Details Last Modified Time 05/18/2022 [id number] cuts: care instructions [email or web address] Not available 05/18/2022 [...] Address Organization Details Recorded Time Atrial fibrillation 04720719 Active 2022 Malika Shana null, PA - [facility] 3 13:50:16 Chronic obstructive pulmonary disease 00127636 Active 2022 Malika Frederick null, PA - [facility] 3 13:50:20 Hypertensive disorder 11166180 Active 2022 Malika Shana null, PA - [facility] 3 13:50:27 Hyperlipidemia 47917772 Active 2022 Malika Shana null, PA - [facility] 3 13:50:33 Problem Notes None recorded. Medical Equipment None Reported. Allergies Allergen ID Allergen Name Allergen Category Reaction Reaction Severity Criticality Documentation Date Start Date Code Code System Note Provider Name and Address Organization Details Recorded Time 375819 Product containin g penicilli n (product) medicatio n anaphylax is Not available high 05/18/2022 18617 8001 SNOMED Malika Shana null, PA - [...] Updated DateTime 3 172.72 cm 31.9 kg/m2 22784.4 g 95 % 95 % 97 /min [...] SNOMED-CT Code Diagnosis ICD10 Code Diagnosis Note [id number] [address] [place] [address] 05/04/2019 10:15:48 05/04/2019 11:04:20 [id number] [address] [place] [address] 08/22/2017 10:46:43 08/22/2017 11:28:26 [id number] [address] [place] [address] 11/06/2019 08:12:57 11/06/2019 08:47:49 [id number] [address] [place] [address] 09/10/2018 10:01:20 09/10/2018 11:14:04 [id number] 2099Yolande Mej[address]ar [address] [place] [address] 11/07/2019 08:20:04 11/07/2019 10:41:03 [id number] 20995Jose Mejíar Fermín [facility] [place] [address] 03/02/2020 09:28:03 03/02/2020 11:43:55 [id number] 2099Yolande Mejíar [address] [place] [address] 11/04/2019 08:03:33 11/04/2019 09:40:15 [id number] Donavan Hankins DO [address] [facility] [place] [address] 05/18/2022 13:41:02 05/18/2022 14:28:46 Laceration of left hand [id number] S61.412A following oral consent wound was cleaned [...] [place] [address] [place]ton [id number] 25 [address] [place] 11/04/2019 2 [place] [id number] Edward P Halton [id number] 87 Edward P Halton 11/06/2019 1 MEDICARE B-[place]: [employer] Edward P Halton [id number] 25 Edward P Halton 11/06/2019 2 [place] [id number] Edward P Halton [id number] 87 Edward P [place]ton 11/07/2019 1 MEDICARE B-[place]: [facility] GOVERNMENT SERVICES Edward P Halton [id number] 25 Edward P Halton 11/07/2019 2 [place] [id number] Edward P Halton [id number] 87 Edward P Halton 03/02/2020 1 MEDICARE B-[place]: [facility] GOVERNMENT SERVICES Edward P Halton [id number] 25 Edward P Halton 03/02/2020 2 [place] [id number] Edward P Halton [id number] 87 Edward P Halton 05/18/2022 1 MEDICARE B-[place]: [facility] SERVICES Edward P Halton [id number] 25 Edward P Halton 05/18/2022 2 [place] [id number] Edward P Halton [id number] 87 Edward P Halton Notes Date Note Type Note Provider Name and Address Organization Details Recorded Time 05/18/2022 text/html UC Wound/LacerationRep orted bypatient.Notes:76 yo malescratched by his house malik plavix and eliquisstill bleedingtried band aids w/o improvementno f/c/n/vminimal pain no CPno SOBno Hano dizzinessno f/c/n/v Donavan Hicksit, DO [address] [place], [address], [place] PA - [facility] 05/18/2022 14:30:26
--- NOTE | 2024-08-07 08:14 | MHC.OFFVIS ---
Vital Signs 08/07/24 08:16 Height 5 ft 9 in Weight 202 lb 6.15 oz BMI 29.9 BP 110/70 Blood Pressure Location Lt brachial Position Sitting Pulse 104 H Pulse Source Monitor Intake Visit Reasons: [facility] f/up 07/24-Hypertension Intake Note: [facility] F/up-Hypertension Information Specialist Required: No Accompanied by: Self / Same As Patient Allergies Penicillins Allergy (Severe, Verified 07/24/24 18:18) Anaphylaxis hydrochlorothiazide Allergy (Unknown, Verified 07/24/24 18:18) Unknown lisinopril Allergy (Unknown, Verified 07/24/24 18:18) Unknown regadenoson [From Lexiscan] Adverse Reaction (Verified 07/24/24 18:18) Bradycardic Medication List - Last Reconciled 08/07/24 by TIFFANIE Coleman adalimumab (Humira(CF) Pen) 40 mg subcut Q2W apixaban (Eliquis) 5 mg PO BID 90 days atorvastatin 80 mg PO BEDTIME uqtckigjai-xpbgquxc-xddlclpyus 160-9-4.8 mcg/actuation (Breztri Aerosphere) 2 inhalations inhalation BID cholecalciferol (vitamin D3) 50 mcg PO DAILY ciprofloxacin HCl 500 mg PO BID clopidogrel 75 mg PO DAILY compress.stocking,knee,reg,med As directed 20-30 mm HG cyanocobalamin (vitamin B-12) (Vitamin B-12) 1,000 mcg PO DAILY diclofenac sodium 1% (Arthritis Pain (diclofenac)) 4 grams topical QID digoxin 125 mcg PO 3XW diltiazem HCl CD 120 mg PO DAILY empagliflozin 10 mg PO DAILY famotidine 20 mg PO BID 90 days ferrous sulfate 325 mg PO DAILY 90 days furosemide (Lasix) 40 mg (2 x 20 mg) PO QAM levothyroxine 50 mcg PO DAILY@0600 metoprolol tartrate 50 mg (2 x 25 mg) PO BID 30 days [OXYGEN 2 L NC keep sats > 90 As directed] [PORTABLE OXYGEN TANK As directed] potassium chloride ER (Klor-Con) 10 mEq PO BID tamsulosin 0.8 mg (2 x 0.4 mg) PO DAILY HPI HPI [facility] f/ 07/24-Hypertension: Details: Pablito is a 78-year-old male with past medical history of hypertension, hyperlipidemia, Mild aortic stenosis, chronic diastolic heart failure, CAD with RCA stent, chronic atrial fibrillation, COPD with O2 use who presents for follow-up. Today he states that he was in the emergency room 2 weeks ago with elevated blood pressure after which Jardiance 10 mg was added to his treatment regimen. His Metoprolol was also reduced from 50 mg to 25 mg twice daily, which has coincided with an increase in heart rate evident during cardiac rehabilitation sessions. His home blood pressure recordings range from 106 to 130 mmHg, with fluctuations noted. He experiences dizziness upon standing, but denies syncope or falls, while managing occasional lightheadedness. His urinary frequency remains high due to Lasix administration, taken in the morning. There is no report of chest discomfort or further breathing complications, although oxygen use remains regular at home following physical exertion. He is not noticing any heart palpitations with his atrial fibrillation. He denies any bleeding issues with his Eliquis and clopidogrel use. He continues to attend cardiac rehab routinely. [facility] Medical History Atrial fibrillation with rapid ventricular response Supplemental oxygen dependent ILD (interstitial lung disease) COPD (chronic obstructive pulmonary disease) Tubular adenoma of colon (~2021) Postoperative hypothyroidism Obesity (BMI 30-39.9) Atrial fibrillation Chest discomfort Bronchitis Hemoptysis HOLLOWAY (dyspnea on exertion) Abnormal SPEP Multinodular thyroid Swelling of left lower extremity Pulmonary nodules/lesions, multiple Ground glass opacity present on imaging of lung Wedge compression fracture of T9 vertebra (~2018) Coronary artery disease Hypertension Right renal stone Thyroid nodule Vitamin D deficiency Ascending aorta dilatation Obesity (BMI 30-39.9) Psoriasis Hypercholesterolemia Former smoker Stable angina Surgical History Status post AAA (abdominal aortic aneurysm) repair Hx of bilateral cataract extraction (~2022) History of partial thyroidectomy (~2020) History of heart artery stent (~2019) History of colonoscopy History of cardioversion (~2020) History of appendectomy History of tonsillectomy History of lung biopsy (~2016) Family History Father Heart disease Mother Throat cancer Paternal Grandfather Heart disease Social History Household Members: Spouse Housing: House Are you a primary director of home care hospice to a significant other at home: No Do you presently have visiting nurse or other home services: No Unable to assess alcohol history related to: Unknown Alcohol intake: former Year quit: 2014 Patient Tobacco Use Status: Former Tobacco user Tobacco use type: Cigarette Years Smoked: 50 e-Cigarette/Vaping Use: Former Use Second Hand Smoke Exposure: Yes Advance Directives Date on File: 09/21/20 service: Yes Current occupational status: retired Cognitive needs: No Hearing needs: No Vision needs: Yes (Glasses) Review of Systems Const All systems reviewed & are unremarkable except as noted in HPI and below Denies chills, Denies fatigue, Denies fever(s), Denies frequent falls, Denies weakness, Denies weight gain and Denies weight loss ENT Denies dizziness Card Details: Wears O2 continually Denies chest pain, Denies leg edema, Denies lightheadedness, Denies palpitations, Reports dyspnea and Reports dyspnea on exertion Resp Denies cough, Reports dyspnea and Reports dyspnea on exertion GI Denies hematochezia Musc Denies abnormal gait, Denies muscle weakness, Denies numbness, Denies radiating pain into limb and Denies tingling Neuro Denies abnormal gait, Denies dizziness, Denies frequent falls, Denies numbness, Denies tingling and Denies weakness Endo Denies fatigue and Denies palpitations Physical Exam Vital Signs: BMI result Body Mass Index 29.9 Const General: cooperative, healthy appearing, comfortable and no acute distress Orientation/consciousness: patient oriented x3 Neck Neck: Yes normal visual inspection Resp Other: Wearing oxygen with nasal cannula Effort & Inspection: normal respiratory effort Auscultation: clear to auscultation bilaterally, no rales, no rhonchi and no wheezes Cardio Rate: regular rate Rhythm: abnormal rhythm Heart sounds: S1 normal heart sound present, S2 normal heart sound present, no gallops, no murmurs and no rubs Neuro General: patient oriented x3 Extrem General: Yes normal to inspection, No no pedal edema and No calf tenderness Psych Appearance: grossly normal Mental Status: mental status grossly normal Speech and movement: Normal speech and movement present Office Procedures EKG Details: Today, read by me, atrial fibrillation, 1 PVC, rate 104, QTC 373 ms [id number], Complete Results Reviewed Results Reviewed: Cardiac catheterization 03/02/2024 shows lad 1st diagonal 95% stenosis, left circumflex proximal 40% stenosis, RCA prior stent proximal, 90% In stent stenosi, JL placed. Echocardiogram 02/28/2024 shows EF 50-55%, mild LVH, moderately dilated left atrium, mild aortic stenosis, sfdk-gh-ybehrdjm enlargement of the ascending aorta at 4.4 cm. Echocardiogram 07/08/2024 shows EF 45-50%, mild aortic stenosis, trace to mild aortic regurgitation, umaq-ry-jvftjwgb enlargement of the ascending aorta, 4.4 cm Assessment & Plan Assessment & Plan (1) Hypertension: Code(s): I10 - Essential (primary) hypertension Category: Medical Qualifiers: Hypertension type: essential hypertension Qualified Code(s): I10 - Essential (primary) hypertension Plan: Adequately controlled at present. (2) Chronic atrial fibrillation: Code(s): I48.20 - Chronic atrial fibrillation, unspecified Category: Medical Plan: Rate mildly elevated. Will be increasing his metoprolol back to 50 mg b.i.d.. Continue Eliquis. (3) Coronary artery disease: Comment: (NSTEMI 04/2019 - JL + proximal and distal RCA rotablation) 03/01/2024 PCI to RCA Code(s): I25.10 - Atherosclerotic heart disease of [place] coronary artery without angina pectoris Category: Medical Qualifiers: Associated angina: without angina Coronary Disease-Associated Artery/Lesion type: [place] artery [place] vs. transplanted heart: [place] heart Qualified Code(s): I25.10 - Atherosclerotic heart disease of [place] coronary artery without angina pectoris Plan: Cardiac catheterization from 02/2024 with RCA in stent stenosis requiring new stent to the RCA. Continue Plavix uninterrupted for at least 1 year. He is not on aspirin since he is on Eliquis. Continue high-dose atorvastatin with ideal LDL goal less than 70. Continue metoprolol. Continue cardiac rehab. Signs and symptoms of angina reviewed. (4) History of heart artery stent: Onset Date: ~2019 Comment: (NSTEMI 04/2019 - JL + proximal and distal RCA rotablation), 90% in stent stenosis with new RCA stent 02/2024 Code(s): Z95.5 - Presence of coronary angioplasty implant and graft Category: Surgical (5) COPD (chronic obstructive pulmonary disease): Code(s): J44.9 - Chronic obstructive pulmonary disease, unspecified Category: Medical Plan: Follows with pulmonology. (6) Supplemental oxygen dependent: Code(s): Z99.81 - Dependence on supplemental oxygen Category: Medical (7) Chronic diastolic heart failure: Code(s): I50.32 - Chronic diastolic (congestive) heart failure Category: Medical Plan: No signs or symptoms of heart failure on examination. Jardiance was recently added. Will try reduction in Lasix to 20 mg once daily. If he has weight gain, new edema, increased shortness of breath he is to go back to 40 mg daily. (8) Hypercholesterolemia: Code(s): E78.00 - Pure hypercholesterolemia, unspecified Category: Medical Plan: LDL goal less than 70. Labs done 12/25/2023 shows LDL 40. Continue high-dose atorvastatin. Plan I reviewed with the patient the current diagnosis of Atrial Fibrillation and the rationale for adjusting Metoprolol back to 50 mg twice daily to manage heart rate. We discussed the use of Jardiance and Furosemide, and the importance of managing diuretic dosage to avoid hypotension. The patient was informed of potential side effects and advised on signs of fluid retention necessitating dosage adjustment. We discussed his coronary artery disease and the need for ongoing medical management to ensure that his new RCA stent remains patent. Follow-up care was outlined, with the patient consenting to these changes. We also discussed the significance of regular monitoring, particularly due to the potential renal effects influenced by diuretics. The patient understands the importance of adhering to the medical regimen outlined and the need for reporting any changes in symptoms. Cardiology follow-up 1 month, sooner if needed. Patient Instructions: - Take Metoprolol 50 mg two times a day to help manage heart rate. - Try reducing Furosemide to 20 mg once a day. - Continue all other medications as previously directed. - Watch for any lower leg swelling, and if it comes back, go back to the previous dose of Furosemide. - Use oxygen as needed at home, especially after exertion. - Follow up if new symptoms appear or if you have questions about your medication. Coding Level of Care Code Est Pt Level 4 (78325) Complex EM visit Add On G2211 Diagnoses Essential hypertension I10 Hypertension type: essential hypertension Chronic atrial fibrillation I48.20 Coronary artery disease involving [place] coronary artery of [place] heart without angina pectoris I25.10 Associated angina: without angina Coronary Disease-Associated Artery/Lesion type: [place] artery [place] vs. transplanted heart: [place] heart History of heart artery stent Z95.5 COPD (chronic obstructive pulmonary disease) J44.9 Supplemental oxygen dependent Z99.81 Chronic diastolic heart failure I50.32 Hypercholesterolemia E78.00 CPT Codes EKG - CPT: 34369-Tknwiercbkdtekneb, Complete ([id number]) Time Spent (min) 32
[2024-08-07 08:16] VITALS: BP 110/70; PULSE 104; BMI 29.9
== END 2024-08-07 08:45 | disposition home or self-care (01) ==
LOC: HO.HCS 08:01
PROVIDERS: PCP Internal Medicine; Visit Provider Nurse Practitioner Family
DX: I10 Essential (primary) hypertension (principal); I48.20 Chronic atrial fibrillation, unspecified; I25.10 Atherosclerotic heart disease of native coronary artery without angina pectoris; Z95.5 Presence of coronary angioplasty implant and graft; J44.9 Chronic obstructive pulmonary disease, unspecified; Z99.81 Dependence on supplemental oxygen; I50.32 Chronic diastolic (congestive) heart failure; E78.00 Pure hypercholesterolemia, unspecified
CPT/HCPCS: 93010; 99214; G2211

== ENCOUNTER → 2024-08-07 08:01 | Outpatient (BNVA) | payer MEDICARE, SELFPAY ==
[2024-07-21 15:00] VITALS: BMI 32.0
== END ==
PROVIDERS: PCP Internal Medicine; Visit Provider Nurse Practitioner Family
DX: I11.0 Hypertensive heart disease with heart failure (principal); I50.32 Chronic diastolic (congestive) heart failure; E78.5 Hyperlipidemia, unspecified; I25.10 Atherosclerotic heart disease of native coronary artery without angina pectoris; I48.20 Chronic atrial fibrillation, unspecified; J44.9 Chronic obstructive pulmonary disease, unspecified; E78.00 Pure hypercholesterolemia, unspecified; Z95.5 Presence of coronary angioplasty implant and graft; Z99.81 Dependence on supplemental oxygen
CPT/HCPCS: 93005; 99212

== ENCOUNTER 2024-08-10 10:58 | Outpatient (REF) | payer MEDICARE, SELFPAY ==
[2024-07-21 15:00] VITALS: BMI 32.0
--- OUTSIDE RECORDS SUMMARY | 2024-08-10 11:01 | XMS_ITS | Data Portability ---
Author Organization [facility], [address] Address [address] [place] [address] Assessment No assessment recorded. Plan of Treatment [...] By Organization Details Last Modified Time 05/18/2022 [id number] cuts: care instructions [email or web address] Not available 05/18/2022 [...] Address Organization Details Recorded Time Atrial fibrillation 42754241 Active 2022 Malika Shana null, PA - [facility] 3 13:50:16 Chronic obstructive pulmonary disease 87135090 Active 2022 Malika [place] null, PA - [facility] 3 13:50:20 Hypertensive disorder 35921372 Active 2022 Malkia Shana null, PA - [facility] 3 13:50:27 Hyperlipidemia 80208258 Active 2022 Malika Shana null, PA - [facility] 3 13:50:33 Problem Notes None recorded. Medical Equipment None Reported. Allergies Allergen ID Allergen Name Allergen Category Reaction Reaction Severity Criticality Documentation Date Start Date Code Code System Note Provider Name and Address Organization Details Recorded Time 170133 Product containin g penicilli n (product) medicatio n anaphylax is Not available high 05/18/2022 85748 8001 SNOMED Malika Shana null, PA - [...] Updated DateTime 3 172.72 cm 31.9 kg/m2 36295.4 g 95 % 95 % 97 /min [...] SNOMED-CT Code Diagnosis ICD10 Code Diagnosis Note [id number] [address] [place] [address] 05/04/2019 10:15:48 05/04/2019 11:04:20 [id number] [address] [place] [address] 08/22/2017 10:46:43 08/22/2017 11:28:26 [id number] [address] [place] [address] 11/06/2019 08:12:57 11/06/2019 08:47:49 [id number] [address] [facility] [place] [address] 09/10/2018 10:01:20 09/10/2018 11:14:04 [id number] 2099Yolande Mejíar Fermín [facility] [place] [address] 11/07/2019 08:20:04 11/07/2019 10:41:03 [id number] 20995Jose Mejíar Fermín [facility] [place] [address] 03/02/2020 09:28:03 03/02/2020 11:43:55 [id number] 2099Yolande Mejíar Fermín [facility] [place] [address] 11/04/2019 08:03:33 11/04/2019 09:40:15 [id number] Donavan Hankins DO [address] [facility] [place] [address] 05/18/2022 13:41:02 05/18/2022 14:28:46 Laceration of left hand [id number] [id number] S61.412A following oral consent wound was cleaned [...] [place]: N[place] GOVERNMENT SERVICES Edward P Halton [id number] 25 Edward P Halton 11/04/2019 2 [place] [id number] Edward P Halton [id number] 87 Edward P Halton 11/06/2019 1 MEDICARE B-[place]: [place] G[place]ERNMENT SERVICES Edward P Halton [id number] 25 Edward P Halton 11/06/2019 2 [place] [id number] Edward P Halton [id number] 87 Edward P Halton 11/07/2019 1 MEDICARE B-[place]: [facility] GOVERNMENT SERVICES Edward P Halton [id number] 25 Edward P Halton 11/07/2019 2 [place] [id number] Edward P Halton [id number] 87 Edward P Halton 03/02/2020 1 MEDICARE B-[place]: [facility] GOVERNMENT SERVICES Edward P Halton [id number] Edward P Halton 03/02/2020 2 [place] [id number] Edward P Halton [id number] 87 Edward P Halton 05/18/2022 1 MEDICARE B-[place]: [facility] SERVICES Edward P Halton [id number] 25 Edward P Halton 05/18/2022 2 [place] [id number] Edward P Halton [id number] 87 Edward P Halton Notes Date Note Type Note Provider Name and Address Organization Details Recorded Time 05/18/2022 text/html UC Wound/LacerationRep orted bypatient.Notes:76 yo malescratched by his house malik plavix and eliquisstill bleedingtried band aids w/o improvementno f/c/n/vminimal pain no CPno SOBno Hano dizzinessno f/c/n/v Donavan Hicksit, DO [address] [place], [address], [place] PA - [facility] 05/18/2022 14:30:26
--- OUTSIDE RECORDS SUMMARY | 2024-08-10 11:01 | XMS_ITS | Patient Health Record ---
Author Organization [facility] Address [address] [place] [address] Care Team Providers Care Tonsorial Artist Name Role Phone Oswaldo Delgado MD Primary Care Provider Ever Colmenares [phone] Allergies Allergen (clinical drug ingredient) Drug/Non Drug [...] Problem Status W/U Status Risk Notes Problem 734833341 Encounter for screening for malignant neoplasm of colon (Z12.11) Active confirmed Problem Diverticulosis of colon (839122428) Diverticulosis of colon (K57.30) Active confirmed Problem 74478327 Esophageal dysphagia (R13.19) Active confirmed Problem 678958102 retirement curren t use of anticoagulant (Z79.01) Active confirmed Plan Of Treatment Pending Test Test Name Order Date XR BARIUM SWALLOW-ESOPHAGUS 05/23/2022 Future Test Test Name Order Date COLONOSCOPY 04/27/2021 Insurance Providers Payer Name Payer Address Payer Phone Subscriber Number Group Number Insured Name Patient Relationship to Insured Coverage Start Date Coverage End Date MEDICARE OF [place] [address] [place] [address] [id number] FAISAL ARELLANO Self - patient is the insured MEDEX ATTN CLAIMS [address] [place] [address] [id number] FAISAL ARELLANO Self - patient is the insured Medical (General) History Medical History History ICD Code Ascending aortic aneurysm COPD Coronary artery disease--[place] and 2 stents in 2019-Dr. Jean-Baptiste Osteoporosis Psoriasis - on humira pulmonary nodule Renal stones Thyroid nodule Vitamin D deficiency Wedge compression fracture of T9 vertebr a Hypertension Afib Denies DM,CVA,renal disease Negative screening colonoscopy in 2007 Colonoscopy 05/2020 with a small tubular adenoma removed Surgical History Surgery Date(Month/Year) Appendectomy Tonsillectomy Lung biopsy 11/22/2016 Thyroid-benign
[2024-08-10 13:24] LABS: Appearance Urine Clear; Color Urine Yellow; Glucose Urine UA 500 mg/dL (Negative); Leukocyte Esterase Urine Moderate (2+) (Negative); Nitrite Urine Negative (Negative); PH 5.5 (5.0-9.0); UMIC TRIGGER UACC YES; Urine Blood Negative (Negative); Urine Ketones Negative (Negative); Urine Protein Trace mg/dL (Neg-Trace)
[2024-08-10 13:31] LABS: Bacteria Urine None Seen (None Seen); Hyaline Casts Urine 0-2 /LPF (0-2); RBC Urine 0-2 /HPF (0-2); UACC Culture Trigger YES; WBC Urine >50 /HPF (0-5)
== END 2024-08-10 10:59 | disposition home or self-care (01) ==
LOC: HO.HMGCLDS 10:58
PROVIDERS: PCP Internal Medicine; Visit Provider Internal Medicine
DX: R39.9 Unspecified symptoms and signs involving the genitourinary system (principal)
CPT/HCPCS: 81001; 87086; 87088; 87186

== ENCOUNTER 2024-08-28 07:00 | Outpatient (RCR) | payer MEDICARE, SELFPAY ==
[2024-02-07 11:25] VITALS: BMI 32.0
== END 2024-09-02 06:29 | disposition home or self-care (01) ==
LOC: HO.CR 07:00
PROVIDERS: PCP Internal Medicine; Visit Provider Internal Medicine Cardiovascular Disease
DX: I21.4 Non-ST elevation (NSTEMI) myocardial infarction (principal)
CPT/HCPCS: 93798

== ENCOUNTER 2024-09-04 07:53 | Outpatient (AMB) | payer MEDICARE, SELFPAY ==
[2024-07-21 15:00] VITALS: BMI 32.0
--- OUTSIDE RECORDS SUMMARY | 2024-09-04 07:58 | XMS_ITS | Patient Health Record ---
Author Organization [facility] Address [address] [place] [address] Care Team Providers Care Dogger Name Role Phone Oswaldo Delgado MD Primary Care Provider Ever Colmenares [phone] Allergies Allergen (clinical drug ingredient) Drug/Non Drug [...] Problem Status W/U Status Risk Notes Problem 311841970 Encounter for screening for malignant neoplasm of colon (Z12.11) Active confirmed Problem Diverticulosis of colon (038927735) Diverticulosis of colon (K57.30) Active confirmed Problem 75502822 Esophageal dysphagia (R13.19) Active confirmed Problem 044859779 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 [address] [id number] FASIAL ARELLANO Self - patient is the insured MEDEX ATTN CLAIMS [address] [place] [address] [id number] FAISAL ARELLANO Self - patient is the insured Medical (General) History Medical History History ICD Code Ascending aortic aneurysm COPD Coronary artery disease--[place] and 2 stents in 2019-Dr. Jean-Baptiste Osteoporosis Psoriasis - on humira pulmonary nodule Renal stones Thyroid nodule Vitamin D deficiency Wedge compression fracture of T9 vertebr a Hypertension Afib Denies DM,CVA,renal disease Negative screening colonoscopy in 2007 Colonoscopy 05/2020 with a small tubular adenoma removed Surgical History Surgery Date(Month/Year) Appendectomy Tonsillectomy Lung biopsy 11/22/2016 Thyroid-benign
--- OUTSIDE RECORDS SUMMARY | 2024-09-04 07:59 | XMS_ITS | Patient Health Record ---
[facility] Address [address] [place] [address] Care Team Providers Care [employer] Assistant Name Role Phone Oswaldo Delgado Primary Care Provider Buddy Rsuso Unavailable [phone] Allergies Allergen (clinical drug ingredient) Drug/Non Drug Allergy documented on EMR Reaction Allergy Type Onset Date Status Penicillin throat closes up Drug Allergy Active Reason For Referral No Information Medications Medication SIG (Take, Route, Frequency, Duration) Notes Start Date End Date Status Ferrous Sulfate 325 (65 Fe) MG 1 tablet Orally Three times a Week Active Humira Active Clopidogrel Bisulfate 75 MG 1 tablet Orally Once a day Active amLODIPine Besylate Not-Taking Atorvastatin Calcium 80 MG 1 tablet Orally Once a day Active Potassium Chloride A ctive Furosemide 20 MG 1 tablet Orally Once a day Active Tamsulosin HCl 0.4 MG 1 capsule Orally O nce a day Active Digoxin 125 MCG 1 tablet Orally Active Breztri Aerosphere 160-9-4.8 MCG/ACT 2 puffs Inhalation Twice a day Active Vitamin D3 50 MCG (1999 UT) 1 capsule Orally Once a day Active Ciclopirox Olamine 0.77 % 1 application to affected area Externally Twice a day for 30 days Not-Taking Jardiance 10 MG 1 tablet Orally Once a day Active Levothyroxine Sodium 50 MCG 1 tablet in the morning on an empty stomach Orally Once a day Active Dilantin Active Ammonium Lactate 12 % 1 application to affected area Externally Twice a day for 30 days Not-Taking Vitamin B12 1000 MCG 1 tablet Orally Onc e a day Active Betamethasone Dipropionate Aug 0.05 % 1 application Externally Once a day for 30 days 08/14/2019 Not-Taking Eliquis 5 MG as directed Orally Active Symbicort Not-Taking Metoprolol Succinate 25 MG 1 capsule Orally Once a day Active Betamethasone Not-Ta [place] Famotidine 20 MG 1 tablet at bedtime as needed Orally Once a day Active Social History Tobacco Use: Social History Observation Description Date Details (start date - stop date) Never Smoker NA - NA Tobacco use other than smoking: Question Answer Notes Are you an other tobacco user? No Tobacco Control (Standard) Question Answer Notes Tobacco use: Nonsmoker Additional Findings: Tobacco non-user Current no nsmoker AUDIT-C (Standard) Question Answer Notes Did you have a drink containing alcohol in the p ast year? No Points 0 Interpretation Negative Problems Problem Type SNOMED Code ICD Code Onset Dates Problem Status W/U Status Risk Notes Problem Acquired hammer toe of left foot (8065407777817313) Other hammer toe(s) (acquired), left foot (M20.42) Active confirmed Problem Bilateral atherosclerosis of arteries of lower limbs (disorder) (04188528381115828 ) Atherosclerosis of [place] artery of both lower extremities, with unspecified presence of clinical manifestation (I70.203) Active confirmed Q7(A), Q8(2B), Q9(1B,2 C) Problem Localized, primary osteoarthritis of the ankle and/or foot (582762659) Arthritis of joint of lesser toe, left (M19.072) Active confirmed Vital Signs Blood pressure diastolic 65 mm Hg 08/21/2024 Height 5ft 8in in 08/21/2024 Blood pressure systolic 130 mm Hg 08/21/2024 Weight 198 lbs 08/21/2024 BMI 30.1 kg/m2 08/21/2024 Encounters Encounter Location Date Provider Diagnosis [facility] [place] [address] [place] [address] 08/21/2024 Buddy Morin Atherosclerosis of [place] artery of both lower extremities, with unspecified presence of clinical manifestation I70.203 ; Other hammer toe(s) (acquired), left foot M20.42 ; Arthritis of joint of lesser toe, left M19.072 and Pain in toe of left foot M79.673 Assessments Encounter Date Diagnosis (ICD Code) Assessment Notes Treatment Notes Treatment Clinical Notes Section Notes 08/21/2024 Other hammer toe(s) (acquired), left foot (ICD-10 - M20.42) 08/21/2024 Atherosclerosis of [place] artery of both lower extremities, with unspecified presence of clinical manifestation (ICD-10 - I70.203) Q7(A), Q8(2B), Q9(1B,2C) 08/21/2024 Arthritis of joint of lesser toe, left (ICD-10 - M19.072) 08/21/2024 Pain in toe of left foot (ICD-10 - M79.675) Plan Of Treatment Pending Test Test Name Order Date X ray : Foot, left 3V 08/21/2024 81640-Ipih Destruction, 05-0507/19/2017 [id number]-Tknh Destruction, 05-0508/06/2017 97030-Yefm Destruction, 05-0508/23/2017 13354-Pzfr Destruction, 05-0509/10/2017 58595-Faxe Destruction, 05-0510/04/2017 69470-Lyqv Destruction, 05-0510/29/2017 52507-Vmut Destruction, 05-0511/19/2017 02735-Wqpj Destruction, 05-0511/29/2017 52969-Xlie Destruction, 05-0512/06/2017 55850-Hdwp Destruction, 05-0501/10/2018 Insurance Providers Payer Name Payer Address Payer Phone Subscriber Number Group Number Insured Name Patient Relationship to Insured Coverage Start Date Coverage End Date Medicare [employer] [address] [facility] [place] [address] [id number] Pablito Everett Self - patient is the insured 1 [employer] [address] [place] [address] [id number] Pablito Everett Self - patient is the insured Medical (General) History Medical History History ICD Code Headaches Psoriasis Measles Chicken pox Cholesterol Rheumatoid Arthritis Cataracts Heart disease High Blood Pressure thyroid COPD Surgical History Surgery Date(Month/Year) appendectomy Stent Thyroid Surgery Abdominal Stents 07/13
--- OUTSIDE RECORDS SUMMARY | 2024-09-04 07:59 | XMS_ITS ---
Author Organization [facility] Address [address] [place] [address] Care Team Providers Care Credit And Collections Analyst Name Role Phone Oswaldo Delgado Primary Care Provider Buddy Russo Unavailable [phone] Allergies Allergen (clinical drug ingredient) Drug/Non Drug Allergy documented on EMR Reaction Allergy Type Onset Date Status Penicillin throat closes up Drug Allergy Active REASON FOR VISIT At Risk Footcare, Painful Toe(s) Medications Medication SIG (Take, Route, Frequency, Duration) Notes Start Date End Date Status Ciclopirox Olamine 0.77 % 1 application to affected area Externally Twice a day for 30 days Not-Taking Ammonium Lactate 12 % 1 application to affected area Externally Twice a day for 30 days Not-Taking Betamethasone Dipropionate Aug 0.05 % 1 application Externally Once a day for 30 days 08/14/2019 Not-Taking Symbicort Not-Taking Betamethasone Not-Ta marcelino Furosemide 20 MG 1 tablet Orally Once a day Active Digoxin 125 MCG 1 tablet Orally Active Humira Active amLODIPine Besylate Not-Taking Atorvastatin Calcium 80 MG 1 tablet Orally Once a day Active Vitamin D3 50 MCG (1999 UT) 1 capsule Orally Once a day Active Levothyroxine Sodium 50 MCG 1 tablet in the morning on an empty stomach Orally Once a day Active Dilantin Active Vitamin B12 1000 MCG 1 tablet Orally Onc e a day Active Metoprolol Succinate 25 MG 1 capsule Orally Once a day Active Tamsulosin HCl 0.4 MG 1 capsule Orally O nce a day Active Eliquis 5 MG as directed Orally Active Ferrous Sulfate 325 (65 Fe) MG 1 tablet Orally Three times a Week Active Clopidogrel Bisulfate 75 MG 1 tablet Orally Once a day Active Famotidine 20 MG 1 tablet at bedtime as needed Orally Once a day Active Potassium Chloride A ctive Breztri Aerosphere 160-9-4.8 MCG/ACT 2 puffs Inhalation Twice a day Active Jardiance 10 MG 1 tablet Orally Once a day Active Social History [...] Problem Status W/U Status Risk Notes Problem Bilateral atherosclerosis of arteries of lower limbs (disorder) (04867908925575669 ) Atherosclerosis of red devil artery of both lower extremities, with unspecified presence of clinical manifestation (I70.203) Active confirmed Q7(A), Q8(2B), Q9(1B,2 C) Problem Acquired hammer toe of left foot (1134395676974995) Other hammer toe(s) (acquired), left foot (M20.42) Active confirmed Problem Localized, primary osteoarthritis of the ankle and/or foot (178270241) Arthritis of joint of lesser toe, left (M19.072) Active confirmed Vital Signs Height 5ft 8in in 08/21/2024 Weight 198 lbs 08/21/2024 BMI 30.1 kg/m2 08/21/2024 Blood pressure systolic 130 mm Hg 08/22/19 25 Blood pressure diastolic 65 mm Hg 025 Encounters Encounter Location Date Provider Diagnosis [facility] [address] [place] [address] 08/21/2024 Buddy Morin Atherosclerosis of red devil artery of both lower extremities, with unspecified presence of clinical manifestation I70.203 ; Other hammer toe(s) (acquired), left foot M20.42 ; Arthritis of joint of lesser toe, left M19.072 and Pain in toe of left foot M79.675 Assessments Encounter Date Diagnosis (ICD Code) Assessment Notes Treatment Notes Treatment Clinical Notes Section Notes 08/21/2024 Atherosclerosis of red devil artery of both lower extremities, with unspecified presence of clinical manifestation (ICD-10 - I70.203) Q7(A), Q8(2B), Q9(1B,2C) 08/21/2024 Other hammer toe(s) (acquired), left foot (ICD-10 - M20.42) 08/21/2024 Arthritis of joint of lesser toe, left (ICD-10 - M19.072) 08/21/2024 Pain in toe of left foot (ICD-10 - M79.675) Plan Of Treatment Pending Test Test Name Order Date X ray : Foot, left 3V 08/21/2024 Next Appt Details Follow Up: prn, Reason: Progress Notes * Pablito ARELLANO PDOB:[birth year] (78 yo M)Acc No.[id number]:08/21/2024 Progress Notes Patient:?Pablito ARELLANO P Provider:?Buddy Moirn DPM :1945???Age:78 Y???Sex:Male Riki e:08/21/2024 Address:[address] [place], [place] [id number] Pcp:Oswaldo Delgado Subjective: * Chief Complaints: * ???At Risk FootcarePainful T oe(s) * HPI: ???At Risk footcare:?Pt States Last PCP Visit:?Date?04/09/2024 ???Toe pain:?Nature:?tenderness.?Location:?2nd toe, Left foot.?Duration:?several weeks.?Onset/Cause:?gradual.?Course:?worse.?Aggravated by:?any pressure, shoes.?Treatments:?rest/alter normal daily activity, change in shoes.? * ROS:?General/Constitutional:?Nausea?denies.?Vomiting?denies.?Hunger Thirst?denies.?Loss appetite?denies.?Chills?denies.?Fatigue?denies.?Fever?denies.?Night Sweats?denies.?Unexplained weight loss?denies.?Unexplained weight gain?denies.?HEENTM:?Dentures?denies.?Dizziness?denies.?Glasses/contacts?denies.?Retinopathy?de nies.?Blurred/double vision?denies.?TMJ?denies.?Discharge/drainage?denies.?Implants?denies.?Sore throat?denies.?Dental implants?denies.?Hard of hearing ?denies.?Difficulty chewing/swallowing/speaking?denies.?Nose bleeds?denies.?Sore mouth?denies.?Respiratory:?On Oxygen?denies.?Pneumonia/pleurisy?denies.?Bronchitis?denies.?Emphysema?denies.?C oughing?denies.?Cough blood?denies.?Shortness of breath?admits.?Wheezing?denies.?Cardiovascular:?Pacemaker?denies.?MVP?denies.?WPW?denies.?CHF?denies.?Heart attack?denies.?Septal defect?denies.?Rapid beat?denies.?Chest pain ?denies.?Atrial Fib.?admits.?Murmur/Palpitations?denies.?Gastrointestinal:?Hemorrhoids?denies.?Stomach/Abdominal pain?denies.?Dark blood stool?denies.?Irritable bowel ?denies.?Constipation?denies.?Diarrhea?denies.?Hematology:?Swelling?denies.?Clots?denies.?Varicose Veins?denies.?Bruising?admits, on anticoagulants.?Bleeding problem?admits, on anticoagulants.?Genitourinary:?Blood urine?denies.?Frequent/Painfu/urination/bladder control?denies.?Kidney stones?denies.?Infection (UTI)?denies.?Nephropathy?denies.?sex trans dis (STD)?denies.?Prostate?denies.?Musculoskeletal:?Hammertoes?admits.?Bunions?denies.?Back Pain?denies.?Muscle Cramps/ Resting?denies.?Muscle cramps / walking?denies.?Generalized aches and pains?admits.?Weakness?denies.?Integ.:?Lima?denies.?Scars?denies.?Corns/calluses?admits.?Ingrown nails?denies.?Painful nails?denies.?Open Sores?denies.?Rashes?denies.?Neurologic:?Difficulty sleeping?denies.?Brain disorder?denies.?Numbness?denies.?Balance trouble?denies.?Confusion?denies.?Fainting/blackouts?denies.?Tingling?denies.?Tr emors?denies.? * Medical History:? * Surgical History:?appendecto my Stent Thyroid Surgery Abdominal Stents 07/13 * Hospitalization/Major Diagno stic Procedure:?Denies Past Hospitalization * Family History:?Mother: dece ased, Cancer, diagnosed with Other malignant neoplasm of unspecified site.?Father: , heart attack, diagnosed with Diabetic - NIDDM, Unspecified heart disease.? * Social History:?Tobacco Use:?Tobacco use other than smoking?Are you an other tobacco user??No ?Tobacco Control (Standard)?Tobacco use:?Nonsmoker ?Additional Findings: Tobacco non-user?Current nonsmoker ???Drugs/Alcohol:?Drugs?Have you used drugs other than those for medical reasons in the past 12 months??No ???Miscellaneous:?Caffeine: no. ?Children: yes, 1 daughter. ?Exercise: no. ?Marital status: . 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 ???Drug/Alcohol:?AUDIT-C (Standard)?Did you have a drink containing alcohol in the past year??No ?Points?0 ?Interpretation?Negative * Medications:?TakingBreztri A erosphere 160-9-4.8 MCG/ACT Aerosol 2 puffs Inhalation Twice a day Jardiance 10 MG Tablet 1 tablet Orally Once a day Potassium Chloride Tamsulosin HCl 0.4 MG Capsule 1 capsule Orally Once a day Famotidine 20 MG Tablet 1 tablet at bedtime as needed Orally Once a day Ferrous Sulfate 325 (65 Fe) MG Tablet 1 tablet Orally Three times a Week Clopidogrel Bisulfate 75 MG Tablet 1 tablet Orally Once a day Eliquis 5 MG Tablet as directed Orally Metoprolol Succinate 25 MG Capsule ER 24 Hour Sprinkle 1 capsule Orally Once a day Dilantin Vitamin B12 1000 MCG Tablet 1 tablet Orally Once a day Vitamin D3 50 MCG (2000 UT) Capsule 1 capsule Orally Once a day Levothyroxine Sodium 50 MCG Tablet 1 tablet in the morning on an empty stomach Orally Once a day Furosemide 20 MG Tablet 1 tablet Orally Once a day Digoxin 125 MCG Tablet 1 tablet Orally Atorvastatin Calcium 80 MG Tablet 1 tablet Orally Once a day Humira Taking Jesustrjama Aerosphere 160-9-4.8 MCG/ACT Aerosol 2 puffs Inhalation Twice a day Taking Jardiance 10 MG Tablet 1 tablet Orally Once a day Taking Potassium Chloride Taking Tamsulosin HCl 0.4 MG Capsule 1 capsule Orally Once a day Taking Famotidine 20 MG Tablet 1 tablet at bedtime as needed Orally Once a day Taking Ferrous Sulfate 325 (65 Fe) MG Tablet 1 tablet Orally Three times a Week Taking Clopidogrel Bisulfate 75 MG Tablet 1 tablet Orally Once a day Taking Eliquis 5 MG Tablet as directed Orally Taking Metoprolol Succinate 25 MG Capsule ER 24 Hour Sprinkle 1 capsule Orally Once a day Taking Dilantin Taking Vitamin B12 1000 MCG Tablet 1 tablet Orally Once a day Taking Vitamin D3 50 MCG (2000 UT) Capsule 1 capsule Orally Once a day Taking Levothyroxine Sodium 50 MCG Tablet 1 tablet in the morning on an empty stomach Orally Once a day Taking Furosemide 20 MG Tablet 1 tablet Orally Once a day Taking Digoxin 125 MCG Tablet 1 tablet Orally Taking Atorvastatin Calcium 80 MG Tablet 1 tablet Orally Once a day Taking Humira Not-Taking/PRNamLODIPine Besylate Symbicort Betamethasone Ammonium Lactate 12 % Cream 1 application to affected area Externally Twice a day Betamethasone Dipropionate Aug 0.05 % Ointment 1 application Externally Once a day Ciclopirox Olamine 0.77 % Cream 1 application to affected area Externally Twice a day Medication List reviewed and reconciled with the patientNot-Taking/PRN amLODIPine Besylate Not-Taking/PRN Symbicort Not-Taking/PRN Betamethasone Not-Taking/PRN Ammonium Lactate 12 % Cream 1 application to affected area Externally Twice a day Not-Taking/PRN Betamethasone Dipropionate Aug 0.05 % Ointment 1 application Externally Once a day Not- Taking/PRN Ciclopirox Olamine 0.77 % Cream 1 application to affected area Externally Twice a day Medication List reviewed and reconciled with the patient * Allergies:?Penicillin: throa t closes up - Allergyyes[Allergies Verified] Objective: * Vitals:?Ht: 5ft 8in, Wt: 198 , BMI: 30.1, Shoe size: 10.5, BP:130/65mm Hg, Ht-cm: 172.72 cm, Wt-k.81 kg. * Examination: ???Vascular: ?DP PULSES (B):? 0/4, B/L.?PT PULSES (B):? 0/4, B/L.?CAPILLARY FILL TIME:? delayed, all digits, B/L.?TROPHIC CONDITION-TEXTURE/ELASTICITY/TURGOR/HAIR GROWTH (B):? decreased, fragile, thin, shiny skin, with sparse to absent hair growth, B/L.?TEMPERTURE GRADIENT (C):? decreased, cool to cool, proximal to distal, B/L.?PIGMENTATION:?rubrous, B/L.?EDEMA (C):?absent, B/L.?CLAUDICATION (C):?denies, B/L.?REST PAIN:?denies, B/L.?PARESTHESIA (C):?absent, B/L.?BURNING (C):?absent, B/L.?Dermatologic: ?SKIN FINDINGS:?Skin exam reveals Keratotic lesion(s) located at, Medial, DIPJ, T1.?Orthopedic: ?MUSCLE STRENGTH:?5/5 all groups in a symmetrical fashion, B/L.?DIGITAL DEFORMITIES:?Digital contracture with lateral deviation, PIPJ, T1, non-reducible with WB or to push-up test, no over, nor underlapping.?FOOTWEAR EVALUATION:? shoe gear properties exacerbate patients foot/toe deformity.?Neurological: ?SENSORY:?Neurological exam reveals intact sensorium, pain sensation normal, vibration sensation intact, pinprick sensation is normal in the lower extremities, Pt denies, anesthesia, burning, paresthesia, tingling, B/L.?General Examination: ?GENERAL APPEARANCE:?Reveals a pleasant, alert, well nourished, well- developed, well hydrated individual, who demonstrates proper attention to hygiene/body habitus, and is in no acute distress, Pt serves as own historian for office visit today.?ORIENTED:?person, place, and time.?X-Rays - IMAGING REPORT: ?Clinical Indication(s):? Evaluate Biomechanical Deformity.?Views:?3 views of Foot, AP, LO, MO, LEFT??Taken by trained?Podiatric Licensed Tax Consultant (?EF ).?Findings:? normal bone and soft tissue density consistent for patients age and sex.?Digits:? show asymmetrical joint space narrowing at the PIPJ consistent with clinical finding of hammertoe deformity.?Fracture:? Negative fractures identified.? Assessment: * Assessment: 1.?Other hammer toe(s) (acqu ired), left foot - M20.42???Specify :Acute problem, Complicated w/ Multiple Tx Options(4) Dx New problem, Prognosis Uncertain (4)???2.?Atherosclerosis of red devil artery of both lower extremities, with unspecified presence of clinical manifestation - I70.203 (Primary)???Specify :Q8???Notes :Q7(A), Q8(2B), Q9(1B,2C)???3.?Arthritis of joint of lesser toe, left - M19.072???4.?Pain in toe of left foot - M79.675??? Plan: * Treatment: * Procedure Codes:?18633 X-RAY EXAM OF LEFT FOOT 3V, Modifiers: 26 , LT * Preventive Medicine:? ??Counseling:?Discussion:?-04: Office or other outpatient visit for the evaluation and management of a new patient, which required a medically appropriate history and/or examination and MODERATE level of DECISION MAKING for: 1 OR MORE CHRONIC PROBLEM(S) THATS WORSENING, 2 STABLE CHRONIC PROBLEMS, A NEWLY DIAGNOSED PROBLEM WITH UNCERTAIN PROGNOSIS, AN ACUTE COMPLICATED INJURY WITH MULTIPLE TREATMENT OPTIONS, OR AN ACUTE PROBLEM WITH ACCOMPANYING SYSTEMIC SYMPTOMS, THAT POSE(S) A MODERATE RISK OF MORBIDITY. THIS CONDITION MAY ALSO INCLUDE RX DRUG MANAGEMENT, OR A DECISON FOR MINOR SURGERY. The visit on the day of the encounter encompassed interpreting the data and educating the patient as to the nature of their condition, treatment options available according to their individual PMH, meds, allergies, and overall health/living conditions, as well as any potential risks or complications that may occur from a failure to adhere to, and participate in, the recommended course of therapy. The discussion included a complete verbal, and/or written explanation of the examination results, any x-rays taken, the proposed diagnosis, and outline of the treatment plan. A schedule for future care needs was also explained. The patient verbalized an understanding of the instructions at this time and agreed to be an active participant in their treatment. If the patient should think of any questions or concerns after the visit, I have encouraged the patient to call the office.?Digital Surgery:?Digital surgery was discussed with the patient, including the risks of surgery(below), vs not having surgery (persistent pain, deformity, risk for skin ulceration/infection, loss of toe), the potential surg complications, the anesthesia, and the usual post-op course. No guarentees were given. We discussed the potential procedure complications including, but not limited to: pain, swelling, bleeding, scarring, numbness, infection, delayed/non healing, floppy/unstable/shorthened toe, recurrence, failure of the procedure, overcorrection leading to plantarflexed/downward positioned toe, recurrence, need for further surgery, as well as the possibility for loss of the toe itself. We discussed the use of local anesthesia, and the usual post-op course for healing. No guarentees were given. The patient verbally indicated a full understanding of the above conversation, and any other of their questions were answered to their satisfaction. Alternatives to the procedure were also discussed, including conservative care. I also discussed the usual post-operative course and gave no guarantees regarding outcome, We elected to try conservative treatment at the present time, due to the patients age, medical history, and circulatory constraints.?Digital Treatment:?HT- I explained to the patient the possible etiologies of Hammertoes, including genetics/foot type/shoegear/activity level/exercise routine and the risks/benefits of all the different treatment options for their pain including: No treatment at all, Rest, Ice, New/supportive/wider/deeper Shoe gear, Digital Padding/Strapping/Taping/Bracing/Gel protective sleeves, Foot/Ankle AFO Bracing, Stretching exercises, Deep Tissue Massage, Arch support/shoe inserts with splay metatarsal padding, and Custom orthoses. I insisted that any digital devices be removed daily and not worn overnight for safety. The patient is to carefully examine the toes daily for any skin irritation while using any splinting or padding device. The advantages and disadvantages of each option were discussed and the patients questions re: shoe gear, padding, custom vs prefabricated inserts, activity level, and consistency in home treatment regimens for optimal success were answered to their verbally confirmed satisfaction.?Shoe Gear Counseling:?The patient and I reviewed the types of shoes they should be wearing. My recommendation included obtaining a well-fitted shoe with a good supportive, non-foldable nor twistable sole, plenty of toe/room for the forefoot, and proper arch support. Based on todays examination, I recommended the patient look for new shoes, by having their feet professionally measured. We discussed that generally the best time of the day for a shoe fitting is the afternoon. Different shoes types and brands to best match the patients occupation and vocation were discussed. Specific brand selection will be up to the patient, their individual foot condition/deformities, and fit. The patient and I reviewed the standard new shoe break in period by wearing them for a few hours a day while checking for redness or sores as wear time is increased. The patient verbally confirmed to understanding the information discussed.? ??Screening/Special Tests:?Fall Risk?Screening:?No falls in the past year ?FALLS: Screening for Future Fall Risk?Have you had any falls with injury in the past year??No * Follow Up:?prn * Images: * Sign off status: Completed true * Provider:?Buddy Morin DPM Date:?2024 Generated for Zora freed/Jennifer/Alice on:?09/04/2024 07:58 AM EDT History and Physical Notes * HPI (History of Present Illness) Category Sub-Category Detail Notes Category Not es Toe pain Nature: tenderness Location: 2nd toe, Left foot Duration: several weeks Onset/Cause: gradual Course: worse Aggravated by: any pressure, shoes Treatments: rest/alter normal da eleuterio activity, change in shoes At Risk footcare Pt States Last PCP Visit: Date: 4 Examination Category Sub-Category Detail Notes Category Not es Neurological SENSORY: Neurological exa m reveals intact sensorium, pain sensation normal, vibration sensation intact, pinprick sensation is normal in the lower extremities, Pt denies, anesthesia, burning, paresthesia, tingling, B/L Dermatologic SKIN FINDINGS: Skin exam reveal s Keratotic lesion(s) located at, Medial, DIPJ, T1 Orthopedic FOOTWEAR EVALUATION: shoe gear p roperties exacerbate patients foot/toe deformity DIGITAL DEFORMITIES: Digital contracture with lateral deviation, PIPJ, T1, non- reducible with WB or to push-up test, no over, nor underlapping MUSCLE STRENGTH: 5/5 all groups in a symmetrical fashion, B/L General Examination GENERAL APPEARANCE: Reveals a pleasant, alert, well nourished, well-developed, well hydrated individual, who demonstrates proper attention to hygiene/body habitus, and is in no acute distress, Pt serves as own historian for office visit today ORIENTED: person, place, and t estefania Vascular DP PULSES (B): 0/4, B/L PT PULSES (B): 0/4, B/L CAPILLARY FILL TIME: delayed, all digits , B/L TEMPERTURE GRADIENT (C): decreased, cool to cool, proximal to distal, B/L TROPHIC CONDITION-TEXTURE/ELASTICITY/TURGOR/HAIR GROWTH (B): decreased, fragile, thin, shiny skin, wi th sparse to absent hair growth, B/L EDEMA (C): absent, B/L CLAUDICATION (C): denies, B/L REST PAIN: denies, B/L PIGMENTATION: rubrous, B/L PARESTHESIA (C): absent, B/L BURNING (C): absent, B/L X-Rays - IMAGING REPORT Findings: normal b one and soft tissue density consistent for patients age and sex Fracture: Negative fractures i dentified Digits: show asymmetrical renee int space narrowing at the PIPJ consistent with clinical finding of hammertoe deformity Views: 3 views of Foot, AP, LO, MO, LEFT Taken by trained Podiatric Licensed Tax Consultant ( EF ) Clinical Indication(s): Evaluate Biomech anical Deformity
--- OUTSIDE RECORDS SUMMARY | 2024-09-04 07:59 | XMS_ITS | Data Portability ---
Author Organization [facility], [address] Address [address] [place] [address] Assessment No assessment recorded. Plan of Treatment [...] By Organization Details Last Modified Time 05/18/2022 [id number] cuts: care instructions [email or web address] Not available 05/18/2022 [...] Address Organization Details Recorded Time Atrial fibrillation 52203551 Active 2022 Malika [place] null, [place] - [facility] 3 13:50:16 Chronic obstructive pulmonary disease 96486470 Active 2022 Malika Shana null, PA - [facility] 3 13:50:20 Hypertensive disorder 05475103 Active 2022 Malika Shana null, PA - [facility] 3 13:50:27 Hyperlipidemia 58621636 Active 2022 Malika [place] null, [place] - [facility] 3 13:50:33 Problem Notes None recorded. Medical Equipment None Reported. Allergies Allergen ID Allergen Name Allergen Category Reaction Reaction Severity Criticality Documentation Date Start Date Code Code System Note Provider Name and Address Organization Details Recorded Time 279511 Product containin g penicilli n (product) medicatio n anaphylax is Not available high 05/18/2022 15370 8001 SNOMED Malika [place] null, [place] - [facility] 3 13:49:54 [...] Updated DateTime 3 172.72 cm 31.9 kg/m2 33124.4 g 95 % 95 % 97 /min 20 /min 97.5 [degF] 167 mm[Hg] 94 mm[Hg] Malika Saldana PA - [facility] 13:55:29 Social History Question Answer Notes LastModified by [employer] Details LastModified Time Tobacco Smoking Status Former Smoker Malika Pachecoant hayes PA - [facility] 05/18/2022 13:50:42 When Did You Quit Smoking? 6-10yearssin celastciyi tte Information not available 05/18/2022 Have You Had Direct Contact, Or Contact During Intimacy, With Monkeypox Rash, Scabs, Or Body Fluids From A Person With Monkeypox? No Information not available 05/18/2022 Have You Recently Traveled Abroad? No Information not available 05/18/2022 Sex: Unknown Functional Status Question Answer Note LastModified by [employer] Details LastModified Time Do you use any illicit or recreational drugs? No Information not available 05/18/2022 Do you or have you ever used any other forms of tobacco or nicotine? No Information not available 05/18/2022 What is your level of alcohol consumption? None Information not available 05/18/2022 Mental Status None recorded. Family History Nothing Reported. Medical History No medical history recorded. Past Encounters Encounter ID Performer Location Encounter Start Date Encounter Closed Date Diagnosis/Indication Diagnosis SNOMED-CT Code Diagnosis ICD10 Code Diagnosis Note [id number] [address] [address] [place] [address] 05/04/2019 10:15:48 05/04/2019 11:04:20 [id number] [address] [address] [place] [address] 08/22/2017 10:46:43 08/22/2017 11:28:26 [id number] [address] [place] [address] 11/06/2019 08:12:57 11/06/2019 08:47:49 [id number] [address] [place] [address] 09/10/2018 10:01:20 09/10/2018 11:14:04 [id number] [address] [place] [address] 11/07/2019 08:20:04 11/07/2019 10:41:03 [id number] [address] [place] [address] 03/02/2020 09:28:03 03/02/2020 11:43:55 [id number] [address] [address] [place] [address] 11/04/2019 08:03:33 11/04/2019 09:40:15 [id number] Donavan Hankins DO [address] [place] [address] 05/18/2022 13:41:02 05/18/2022 14:28:46 Laceration of left hand [id number] 7976232 S61.412A following oral consent wound was cleaned [...] Recorded Advance Directives Directive None Recorded Payers Insurance Date Sequence Insurance Name Policy Number Policy Multani Covered Member ID Multani Member ID Guarantor Name 05/18/2022 1 [place] Burtonalyssa Gipson Marguerite [id number] Pablito Everett 05/18/2022 2 [place] [id number] Burtonalyssa Brandan Everett [id number] Pablito [place]rett 05/18/2022 NORIDIAN - SPECIALITY CLAIMS (MEDICARE DME REGION A) Burtonalyssa Gipson Marguerite [id number] 25 Burtonalyssa Gipson Marguerite Notes Date Note Type Note Provider Name and Address Organization Details Recorded Time 05/18/2022 text/html UC Wound/LacerationRep orted bypatient.Notes:76 yo malescratched by his house malik plavix and eliquisstill bleedingtried band aids w/o improvementno f/c/n/vminimal pain no CPno SOBno Hano dizzinessno f/c/n/v Donavan Hankins, DO [address] [place], [address], [place] - [facility] 05/18/2022 14:30:26
[2024-09-04 08:16] VITALS: BP 100/62; PULSE 77
--- NOTE | 2024-09-04 08:16 | MHC.OFFVIS ---
Vital Signs 09/04/24 08:16 Height 5 ft 9 in Weight 203 lb 4.259 oz BMI 30.0 BP 100/62 Blood Pressure Location Lt brachial Position Sitting Pulse 77 Pulse Source Monitor Intake Visit Reasons: 1m follow up Rough Rice Grader Required: No Allergies Penicillins Allergy (Severe, Verified 09/04/24 08:19) Anaphylaxis hydrochlorothiazide Allergy (Unknown, Verified 09/04/24 08:19) Unknown lisinopril Allergy (Unknown, Verified 09/04/24 08:19) Unknown regadenoson [From Lexiscan] Adverse Reaction (Verified 09/04/24 08:19) Bradycardic Medication List - Last Reconciled 09/04/24 by TIFFANIE Coleman adalimumab (Humira(CF) Pen) 40 mg subcut Q2W apixaban (Eliquis) 5 mg PO BID 90 days atorvastatin 80 mg PO BEDTIME ptjgksqbrc-vmsfsdfg-urkmdcphma 160-9-4.8 mcg/actuation (Breztri Aerosphere) 2 inhalations inhalation BID cholecalciferol (vitamin D3) 50 mcg PO DAILY ciprofloxacin HCl 500 mg PO BID clopidogrel 75 mg PO DAILY compress.stocking,knee,reg,med As directed 20-30 mm HG cyanocobalamin (vitamin B-12) (Vitamin B-12) 1,000 mcg PO DAILY diclofenac sodium 1% (Arthritis Pain (diclofenac)) 4 grams topical QID digoxin 125 mcg PO 3XW diltiazem HCl CD 120 mg PO DAILY empagliflozin 10 mg PO DAILY famotidine 20 mg PO BID 90 days ferrous sulfate 325 mg PO DAILY 90 days furosemide (Lasix) 40 mg (2 x 20 mg) PO QAM levothyroxine 50 mcg PO DAILY@0600 metoprolol tartrate 50 mg (2 x 25 mg) PO BID 30 days [OXYGEN 2 L NC keep sats > 90 As directed] [PORTABLE OXYGEN TANK As directed] potassium chloride ER (Klor-Con) 10 mEq PO BID tamsulosin 0.8 mg (2 x 0.4 mg) PO DAILY HPI HPI 1m follow up: Details: Pablito is a 78-year-old male with past medical history of hypertension, hyperlipidemia, Mild aortic stenosis, chronic diastolic heart failure, CAD with RCA stent, chronic atrial fibrillation, COPD with O2 use who recently had echocardiogram and now presents for follow-up. Today he states that has been doing well overall since his last visit. His home blood pressure recordings range from 106 to 120 mmHg. Home pulse rates are usually < 100. He has no report of chest discomfort or shortness of breath. No concerning lightheadedness, He attends cardiac rehab where he does the treadmill and hand bicycle which he tolerates well. No bleeding issues reported. [facility] Medical History Atrial fibrillation with rapid ventricular response Supplemental oxygen dependent ILD (interstitial lung disease) COPD (chronic obstructive pulmonary disease) Tubular adenoma of colon (~2021) Postoperative hypothyroidism Obesity (BMI 30-39.9) Atrial fibrillation Chest discomfort Bronchitis Hemoptysis HOLLOWAY (dyspnea on exertion) Abnormal SPEP Multinodular thyroid Swelling of left lower extremity Pulmonary nodules/lesions, multiple Ground glass opacity present on imaging of lung Wedge compression fracture of T9 vertebra (~2018) Coronary artery disease Hypertension Right renal stone Thyroid nodule Vitamin D deficiency Ascending aorta dilatation Obesity (BMI 30-39.9) Psoriasis Hypercholesterolemia Former smoker Stable angina Surgical History Status post AAA (abdominal aortic aneurysm) repair Hx of bilateral cataract extraction (~2022) History of partial thyroidectomy (~2020) History of heart artery stent (~2019) History of colonoscopy History of cardioversion (~2020) History of appendectomy History of tonsillectomy History of lung biopsy (~2016) Family History Father Heart disease Mother Throat cancer Paternal Grandfather Heart disease Social History Household Members: Spouse Housing: House Are you a primary care taker to a significant other at home: No Do you presently have visiting nurse or other home services: No Unable to assess alcohol history related to: Unknown Alcohol intake: former Year quit: 2014 Patient Tobacco Use Status: Former Tobacco user Tobacco use type: Cigarette Years Smoked: 50 e-Cigarette/Vaping Use: Former Use Second Hand Smoke Exposure: Yes Advance Directives Date on File: 09/21/20 service: Yes Current occupational status: retired Cognitive needs: No Hearing needs: No Vision needs: Yes (Glasses) Review of Systems Const All systems reviewed & are unremarkable except as noted in HPI and below ENT Denies dizziness Card Denies chest pain, Denies chest pain at rest, Denies chest pain with activity, Denies rapid heart rate, Denies pedal edema, Denies edema, Denies leg edema, Denies lightheadedness, Denies palpitations, Denies dyspnea, Reports dyspnea on exertion and Denies orthopnea Resp Denies cough, Denies dyspnea and Reports dyspnea on exertion GI Denies hematochezia and Denies change in stool character Musc Denies abnormal gait, Denies limited range of motion, Denies muscle cramps, Denies muscle weakness, Denies numbness, Denies radiating pain into limb, Denies stiffness and Denies tingling Neuro Denies abnormal gait, Denies dizziness, Denies numbness and Denies tingling Endo Denies palpitations Physical Exam Vital Signs: Last Vital Signs Pulse 77 09/04/24 08:16 BP 100/62 09/04/24 08:16 BMI result Body Mass Index 30.0 Const General: cooperative, healthy appearing, comfortable and no acute distress Orientation/consciousness: patient oriented x3 Neck Neck: Yes normal visual inspection Resp Other: Wearing oxygen with nasal cannula Effort & Inspection: normal respiratory effort Auscultation: clear to auscultation bilaterally, no rales, no rhonchi and no wheezes Cardio Rate: regular rate Rhythm: abnormal rhythm Heart sounds: S1 normal heart sound present, S2 normal heart sound present, no gallops, no murmurs and no rubs Neuro General: patient oriented x3 Extrem General: Yes normal to inspection, No no pedal edema and No calf tenderness Psych Appearance: grossly normal Mental Status: mental status grossly normal Speech and movement: Normal speech and movement present Office Procedures EKG Details: Today, read by me, atrial fibrillation, rate 77, Qtc 416ms 44894-Hkhinishfhombkxek, Complete Assessment & Plan Assessment & Plan (1) Chronic atrial fibrillation: Code(s): I48.20 - Chronic atrial fibrillation, unspecified Category: Medical Plan: Chronic afib, that is treated with heart rate control. Rate mildly elevated last visit and metoprolol was changed back to 50 mg b.i.d.. EKG today shows atrial fibrillation, rate 77. Home pulse rates usually < 100. Continue current metoprolol, diltiazem and digoxin. last dig level 0.2 on 06/04/24. Continue Eliquis for anticoagulation. Recommend biannual cbc and renal function tests. Cardiology follow up 6 mo, sooner if needed. (2) Coronary artery disease: Comment: (NSTEMI 04/2019 - JL + proximal and distal RCA rotablation) 03/01/2024 PCI to RCA Code(s): I25.10 - Atherosclerotic heart disease of [place] coronary artery without angina pectoris Category: Medical Qualifiers: Associated angina: without angina Coronary Disease-Associated Artery/Lesion type: [place] artery [place] vs. transplanted heart: [place] heart Qualified Code(s): I25.10 - Atherosclerotic heart disease of [place] coronary artery without angina pectoris Plan: Cardiac catheterization from 02/2024 with RCA in stent stenosis requiring new stent to the RCA. Continue Plavix uninterrupted for at least 1 year. He is not on aspirin since he is on Eliquis. Continue high-dose atorvastatin with ideal LDL goal less than 70. Continue metoprolol. Continue cardiac rehab. Signs and symptoms of angina reviewed. (3) Hypertension: Code(s): I10 - Essential (primary) hypertension Category: Medical Qualifiers: Hypertension type: essential hypertension Qualified Code(s): I10 - Essential (primary) hypertension Plan: BP goal < 130/80. On low side, asymptomatic. No med changes made. (4) History of heart artery stent: Onset Date: ~2019 Comment: (NSTEMI 04/2019 - JL + proximal and distal RCA rotablation), 90% in stent stenosis with new RCA stent 02/2024 Code(s): Z95.5 - Presence of coronary angioplasty implant and graft Category: Surgical (5) COPD (chronic obstructive pulmonary disease): Code(s): J44.9 - Chronic obstructive pulmonary disease, unspecified Category: Medical Plan: Follows with pulmonology. (6) Chronic diastolic heart failure: Code(s): I50.32 - Chronic diastolic (congestive) heart failure Category: Medical Plan: No signs or symptoms of heart failure on examination. Jardiance was recently added. Continue lasix. Signs and Symptoms of heart failure reviewed with him. (7) Hypercholesterolemia: Code(s): E78.00 - Pure hypercholesterolemia, unspecified Category: Medical Plan: LDL goal less than 70. Labs done 12/25/2023 shows LDL 40. Continue high-dose atorvastatin. Plan During the visit, I reviewed the management of atrial fibrillation and the ongoing medication regimen, emphasizing the importance of maintaining the current dosage to control heart rate. We discussed coronary artery disease and his stented coronary artery, along with the current use of medical management to control. The risks and benefits of continued exercise were discussed, affirming the intention to enhance cardiovascular health without undue strain. Blood pressure targets were set, and precautions were highlighted regarding hypotension risks. We agreed on a six-month follow-up schedule with the remote broadcast technician, with clear guidance to promptly report any exacerbations, including persistent hypotensive readings or rapid heart rates. The patient's stable status was acknowledged, and his regimen will remain as is barring any significant health changes. Time spent on chart review, documentation, interview, assessment Patient was informed and verbally consented to the use of an ambient scribe for clinic note documentation during this visit. Medications: New metoprolol tartrate Take 1 tablet twice daily 50 mg PO BID 180 tabs 3RF 90 days Discontinued metoprolol tartrate two tablets twice daily Discontinued Reason: Doctor's Order 50 mg (2 x 25 mg) PO BID 30 days 120 tabs 5RF Patient Instructions: - Continue current medications: Metoprolol, Diltiazem, Digoxin - Follow blood pressure regularly; ensure it stays between 100-130 systolic - Continue cardiac rehab activities; avoid overexertion - Report new or worsening symptoms, like dizziness when standing - Follow up with remote broadcast technician in six months Coding Level of Care Code Est Pt Level 4 (96897) Complex EM visit Add On G2211 Diagnoses Chronic atrial fibrillation I48.20 Coronary artery disease involving [place] coronary artery of [place] heart without angina pectoris I25.10 Associated angina: without angina Coronary Disease-Associated Artery/Lesion type: [place] artery [place] vs. transplanted heart: [place] heart Essential hypertension I10 Hypertension type: essential hypertension History of heart artery stent Z95.5 COPD (chronic obstructive pulmonary disease) J44.9 Chronic diastolic heart failure I50.32 Hypercholesterolemia E78.00 CPT Codes EKG - CPT: 50733-Jagqgrejcwpjfmonl, Complete ([id number]) Time Spent (min) 28
== END 2024-09-04 08:45 | disposition home or self-care (01) ==
LOC: HO.HCS 07:54
PROVIDERS: PCP Internal Medicine; Visit Provider Nurse Practitioner Family
DX: I48.20 Chronic atrial fibrillation, unspecified (principal); I25.10 Atherosclerotic heart disease of native coronary artery without angina pectoris; I10 Essential (primary) hypertension; Z95.5 Presence of coronary angioplasty implant and graft; J44.9 Chronic obstructive pulmonary disease, unspecified; I50.32 Chronic diastolic (congestive) heart failure; E78.00 Pure hypercholesterolemia, unspecified
CPT/HCPCS: 93010; 99214; G2211

== ENCOUNTER → 2024-09-04 07:53 | Outpatient (BNVA) | payer MEDICARE, SELFPAY ==
[2024-07-21 15:00] VITALS: BMI 32.0
== END ==
PROVIDERS: PCP Internal Medicine; Visit Provider Nurse Practitioner Family
DX: I48.20 Chronic atrial fibrillation, unspecified (principal); I25.10 Atherosclerotic heart disease of native coronary artery without angina pectoris; I11.0 Hypertensive heart disease with heart failure; I50.32 Chronic diastolic (congestive) heart failure; E78.00 Pure hypercholesterolemia, unspecified; J44.9 Chronic obstructive pulmonary disease, unspecified; Z95.5 Presence of coronary angioplasty implant and graft
CPT/HCPCS: 93005; 99212

== ENCOUNTER 2024-09-09 11:56 | Outpatient (REF) | payer MEDICARE, SELFPAY ==
[2024-07-21 15:00] VITALS: BMI 32.0
--- NOTE | ~2024-09-09 | US_ITS ---
CLINICAL HISTORY: N21.0 - Calculus in bladder US retroperitoneum with color Doppler Comparison: CT/SR - CT ANGIO ABDOMEN PELVIS - 06/15/24 07:48 EST US/SR - US RETROPERITONEAL COMP - 01/21/23 08:53 EDT Findings: Right kidney normal size and echotexture, 9.9 cm length. No hydronephrosis. Normal color flow. Midpole cyst measuring 10 x 10 x 9 mm with minimal calcification along the wall previously measuring 10 x 12 x 11 mm. Midpole caliceal stone measuring 4 x 6 x 3 mm. No evidence of obstructive uropathy. Left kidney normal size and echotexture, 10.8 cm in length. No hydronephrosis. Normal color flow. Probable vascular reflector on the left. No renal masses. Within the dependent portion of the urinary bladder is a persistent filling defect can not exclude urinary bladder wall mass or bladder wall thickening versus extrinsic compression from the prostate gland. Cystoscopy may be indicated.. Prevoid volume 215 mL. Postvoid volume 86 mL. Ureteral jets are visualized bilaterally Prostate gland measures 3.9 x 3.6 x 4.8 cm with dystrophic calcifications. Impression: 1. Nephrolithiasis on the right. Cyst with faint calcification within the wall midpole right kidney. Probable vascular reflector rather than stone left kidney. No evidence of hydronephrosis. 2. Within the dependent portion of the urinary bladder is a filling defect. Intraluminal bladder mass/debris versus wall thickening versus extrinsic compression from the prostate can be correlated with cystoscopy. 3. Prostate volume 36 cc with central dystrophic calcifications. This document has been electronically signed by: Rafael Campbell MD on 09/10/2024 10:22:13
--- OUTSIDE RECORDS SUMMARY | 2024-09-09 13:02 | XMS_ITS | Patient Health Record ---
[facility] Address [address] [facility] [place] [address] Care Team Providers Care Logging Superintendent Name Role Phone Oswaldo Delgado Primary Care Provider Buddy Russo Unavailable [phone] Allergies Allergen (clinical drug ingredient) Drug/Non Drug [...] Problem Acquired hammer toe of left foot (2944570934438569) Other hammer toe(s) (acquired), left foot (M20.42) Active confirmed Problem Bilateral atherosclerosis of arteries of lower limbs (disorder) (13031314887550311 ) Atherosclerosis of [place] artery of both lower extremities, with unspecified presence of clinical manifestation (I70.203) Active confirmed Q7(A), Q8(2B), Q9(1B,2 C) Problem Localized, primary osteoarthritis of the ankle and/or foot (653788942) Arthritis of joint of lesser toe, left (M19.072) Active confirmed Vital Signs Blood pressure diastolic 65 mm Hg 08/21/2024 Height 5ft 8in in 08/21/2024 Blood pressure systolic 130 mm Hg 08/21/2024 Weight 198 lbs 08/21/2024 BMI 30.1 kg/m2 08/21/2024 Encounters Encounter Location Date Provider Diagnosis [facility] [address] [place] [address] 08/21/2024 Buddy Morin Atherosclerosis of [place] artery of both lower extremities, with unspecified presence of clinical manifestation I70.203 ; Other hammer toe(s) (acquired), left foot M20.42 ; Arthritis of joint of lesser toe, left M19.072 and Pain in toe of left foot M79.670 Assessments Encounter Date Diagnosis (ICD Code) Assessment Notes Treatment Notes Treatment Clinical Notes Section Notes 08/21/2024 Other hammer toe(s) (acquired), left foot (ICD-10 - M20.42) 08/21/2024 Atherosclerosis of [place] artery of both lower extremities, with unspecified presence of clinical manifestation (ICD-10 - I70.203) Q7(A), Q8(2B), Q9(1B,2C) 08/21/2024 Arthritis of joint of lesser toe, left (ICD-10 - M19.072) 08/21/2024 Pain in toe of left foot (ICD-10 - M79.675) Plan Of Treatment Pending Test Test Name Order Date X ray : Foot, left 3V 08/21/2024 56472-Nwrz Destruction, 05-0507/19/2017 19558-Ylda Destruction, 05-0508/06/2017 83526-Gljj Destruction, 05-0508/23/2017 99961-Lvdj Destruction, 05-0509/10/2017 62638-Rzyx Destruction, 05-0510/04/2017 56697-Kksh Destruction, 05-0510/29/2017 71454-Tgox Destruction, 05-0511/19/2017 54039-Ejqy Destruction, 05-0511/29/2017 62087-Dexi Destruction, 05-0512/06/2017 72094-Uaru Destruction, 05-0501/10/2018 Insurance Providers Payer Name Payer Address Payer Phone Subscriber Number Group Number Insured Name Patient Relationship to Insured Coverage Start Date Coverage End Date Medicare National Govt [employer] [address] [place] [address] [id number] Pablito Everett Self - patient is the insured 1 Medex Blue Shield [address] [place] [address] [id number] Pablito Everett Self - patient is the insured Medical (General) History Medical History History ICD Code Headaches Psoriasis Measles Chicken pox Cholesterol Rheumatoid Arthritis Cataracts Heart disease High Blood Pressure thyroid COPD Surgical History Surgery Date(Month/Year) appendectomy Stent Thyroid Surgery Abdominal Stents 07/13
--- OUTSIDE RECORDS SUMMARY | 2024-09-09 13:02 | XMS_ITS | Data Portability ---
Author Organization [facility], [address] Address [address] [place] [address] Assessment No assessment recorded. Plan of Treatment [...] By Organization Details Last Modified Time 05/18/2022 [id number] cuts: care instructions [email or web address] Not available 05/18/2022 [...] Address Organization Details Recorded Time Atrial fibrillation 95223521 Active 2022 Malika [place] null, [place] - [facility] 3 13:50:16 Chronic obstructive pulmonary disease 13695859 Active 2022 Malika Shana null, PA - [facility] 3 13:50:20 Hypertensive disorder 32782517 Active 2022 Malika Shana null, PA - [facility] 3 13:50:27 Hyperlipidemia 73871956 Active 2022 Malika [place] null, PA - [facility] 3 13:50:33 Problem Notes None recorded. Medical Equipment None Reported. Allergies Allergen ID Allergen Name Allergen Category Reaction Reaction Severity Criticality Documentation Date Start Date Code Code System Note Provider Name and Address Organization Details Recorded Time 334414 Product containin g penicilli n (product) medicatio n anaphylax is Not available high 05/18/2022 45090 8001 SNOMED Malika [place] null, PA - [facility] 3 13:49:54 [...] Updated DateTime 3 172.72 cm 31.9 kg/m2 80795.4 g 95 % 95 % 97 /min 20 /min 97.5 [degF] 167 mm[Hg] 94 mm[Hg] Malika Saldana PA - [facility] 13:55:29 Social History Question Answer Notes LastModified by [employer] Details LastModified Time Tobacco Smoking Status Former [...] Functional Status Question Answer Note LastModified by [employer] Details LastModified Time Do you use any [...] SNOMED-CT Code Diagnosis ICD10 Code Diagnosis Note [id number] [address] [address] [place] [address] 05/04/2019 10:15:48 05/04/2019 11:04:20 [id number] [address] [facility] [address] [place] [address] 08/22/2017 10:46:43 08/22/2017 11:28:26 [id number] [address] [place] [address] 11/06/2019 08:12:57 11/06/2019 08:47:49 [id number] [address] [place] [address] 09/10/2018 10:01:20 09/10/2018 11:14:04 [id number] [address] [place] [address] 11/07/2019 08:20:04 11/07/2019 10:41:03 [id number] [address] [place] [address] 03/02/2020 09:28:03 03/02/2020 11:43:55 [id number] [address] [address] [place] [address] 11/04/2019 08:03:33 11/04/2019 09:40:15 [id number] Donavan Hankins DO [facility] [address] [place] [address] 05/18/2022 13:41:02 05/18/2022 14:28:46 Laceration of left hand [id number] 3071030 S61.412A following oral consent wound was cleaned [...] B-[place]MENT [place] Burtonalyssa Gipson Marguerite [id number] Pablito Everett 05/18/2022 2 [place] [id number] Burtonalyssa Brandan Everett [id number] Pablito Everett 05/18/2022 NORIDIAN - SPECIALITY CLAIMS (MEDICARE DME REGION A) Burtonalyssa Gipson Marguerite [id number] Burtonalyssa Gipson Marguerite Notes Date Note Type Note Provider Name and Address Organization Details Recorded Time 05/18/2022 text/html UC Wound/LacerationRep orted bypatient.Notes:76 yo malescratched by his house malik plavix and eliquisstill bleedingtried band aids w/o improvementno f/c/n/vminimal pain no CPno SOBno Hano dizzinessno f/c/n/v Donavan Hankins, DO [address] [place], [address], [place] - [facility] 05/18/2022 14:30:26
--- OUTSIDE RECORDS SUMMARY | 2024-09-09 13:02 | XMS_ITS ---
Author Organization [facility] Address [address] [place] [address] Care Team Providers Care Faro Dealer Name Role Phone Oswaldo Delgado Primary Care Provider Buddy Russo Unavailable [phone] Allergies Allergen (clinical drug ingredient) Drug/Non Drug [...] atherosclerosis of arteries of lower limbs (disorder) (81982961200830640 ) Atherosclerosis of mary's igloo artery of both lower extremities, with unspecified presence of clinical manifestation (I70.203) Active confirmed Q7(A), Q8(2B), Q9(1B,2 C) Problem Acquired hammer toe of left foot (0601432465062697) Other hammer toe(s) (acquired), left foot (M20.42) Active confirmed Problem Localized, primary osteoarthritis of the ankle and/or foot (249713133) Arthritis of joint of lesser toe, left (M19.072) Active confirmed Vital Signs Height 5ft 8in in 08/21/2024 Weight 198 lbs 08/21/2024 BMI 30.1 kg/m2 08/21/2024 Blood pressure systolic 130 mm Hg 08/22/19 25 Blood pressure diastolic 65 mm Hg 025 Encounters Encounter Location Date Provider Diagnosis [facility] [place] [address] [place] [address] 08/21/2024 Buddy Morin Atherosclerosis of mary's igloo artery of both lower extremities, with unspecified presence of clinical manifestation I70.203 ; Other hammer toe(s) (acquired), left foot M20.42 ; Arthritis of joint of lesser toe, left M19.072 and Pain in toe of left foot M79.675 Assessments Encounter Date Diagnosis (ICD Code) Assessment Notes Treatment Notes Treatment Clinical Notes Section Notes 08/21/2024 Atherosclerosis of mary's igloo artery of both lower extremities, with unspecified [...] Pablito ARELLANO PDOB:[birth year] (78 yo M)Acc No.[id number]:08/21/2024 Progress Notes Patient:?Pablito ARELLANO P Provider:?Buddy Morin DPM :1945???Age:78 Y???Sex:Male Riki e:08/21/2024 Address:[address] [place], [place] [id number] Pcp:Oswaldo Delgado Subjective: * Chief Complaints: * [...] Foot, AP, LO, MO, LEFT??Taken by trained?Podiatric Fur Tailor (?EF ).?Findings:? normal bone and soft tissue density consistent for patients age and sex.?Digits:? show asymmetrical joint space narrowing at the PIPJ consistent with clinical finding of hammertoe deformity.?Fracture:? Negative fractures identified.? Assessment: * Assessment: 1.?Other hammer toe(s) (acqu ired), left foot - M20.42???Specify :Acute problem, Complicated w/ Multiple Tx Options(4) Dx New problem, Prognosis Uncertain (4)???2.?Atherosclerosis of mary's igloo artery of both lower extremities, with unspecified presence of clinical manifestation - I70.203 (Primary)???Specify :Q8???Notes :Q7(A), Q8(2B), Q9(1B,2C)???3.?Arthritis of joint of lesser toe, left - M19.072???4.?Pain in toe of left foot - M79.675??? Plan: * Treatment: * Procedure Codes:?52426 X-RAY EXAM OF LEFT FOOT 3V, Modifiers: [...] Morin DPM Date:?2024 Generated for Zora freed/Jennifer/Alice on:?09/09/2024 01:02 PM EDT History and Physical Notes * HPI [...] LO, MO, LEFT Taken by trained Podiatric Fur Tailor ( EF ) Clinical Indication(s): Evaluate Biomech anical Deformity
--- OUTSIDE RECORDS SUMMARY | 2024-09-09 13:02 | XMS_ITS | Patient Health Record ---
Author Organization [facility] Address [address] [place] [address] Care Team Providers Care Social Service Liaison Name Role Phone Oswaldo Delgado MD Primary Care Provider Ever Colmenares [phone] Allergies Allergen (clinical drug ingredient) Drug/Non Drug [...] Problem Status W/U Status Risk Notes Problem 350803275 Encounter for screening for malignant neoplasm of colon (Z12.11) Active confirmed Problem Diverticulosis of colon (378092530) Diverticulosis of colon (K57.30) Active confirmed Problem 51992143 Esophageal dysphagia (R13.19) Active confirmed Problem 622250062 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 use of anticoagulant (Z79.01) Active confirmed Plan Of Treatment Pending Test Test Name Order Date XR BARIUM SWALLOW-ESOPHAGUS 05/23/2022 Future Test Test Name Order Date COLONOSCOPY 04/27/2021 Insurance Providers Payer Name Payer Address Payer Phone Subscriber Number Group Number Insured Name Patient Relationship to Insured Coverage Start Date Coverage End Date MEDICARE OF [place] [address] [place] [address] [id number] FAISAL ARELLANO Self - patient is the insured MEDEX ATTN CLAIMS [address] [place] [address] [id number] FAISAL ARELLANO Self - patient is the insured Medical (General) History Medical History History ICD Code Ascending aortic aneurysm COPD Coronary artery disease--[place] and 2 stents in 2019-Dr. Jean-Baptiste Osteoporosis Psoriasis - on humira pulmonary nodule Renal stones Thyroid nodule Vitamin D deficiency Wedge compression fracture of T9 vertebr a Hypertension Afib Denies DM,CVA,renal disease Negative screening colonoscopy in 2007 Colonoscopy 05/2020 with a small tubular adenoma removed Surgical History Surgery Date(Month/Year) Appendectomy Tonsillectomy Lung biopsy 11/22/2016 Thyroid-benign
== END 2024-09-09 11:57 | disposition home or self-care (01) ==
LOC: HO.US 11:56
PROVIDERS: PCP Internal Medicine; Visit Provider Internal Medicine
DX: N21.0 Calculus in bladder (principal)
CPT/HCPCS: 76770

== ENCOUNTER 2024-09-29 09:20 | Outpatient (AMB) | payer MEDICARE, SELFPAY ==
[2024-07-21 15:00] VITALS: BMI 32.0
--- NOTE | 2024-09-29 09:36 | MHC.OFFVIS ---
Intake Visit Reasons: 6m/PVR Intake Note: Patient is present for 6M/PVR Urology Medication:TAMSULOSIN Antibiotic Allergy:PENICILLIN Blood Thinner:APIXABAN TODAY'S PVR:82ML'S Eyewear Manufacturing Tech Required: No Allergies Penicillins Allergy (Severe, Verified 09/29/24 09:38) Anaphylaxis hydrochlorothiazide Allergy (Unknown, Verified 09/29/24 09:38) Unknown lisinopril Allergy (Unknown, Verified 09/29/24 09:38) Unknown regadenoson [From Lexiscan] Adverse Reaction (Verified 09/29/24 09:38) Bradycardic HPI Comments Details: It was a pleasant male. He is a patient of Dr. Delgado. He seen for the following urologic conditions - lower urinary tract symptoms Six-month follow-up Previously had discussed prostate procedure Had cardiac stenting 02/12 and unable to come off anticoagulation for 6-12 months Has noted 2 UTIs in past 2 months Increasing frequency of urination UA today 250 sugar Had been placed on Jardiance by Cardiology - Will stop Jardiance since has had complications - Caution advised with dapagliflozin in the setting of male urinary tract outlet obstruction. BMJ Case Rep. 2017 September 10;2016 Lower urinary tract symptoms Primarily nocturia 3-5 times per night Failed lifestyle modifications Had been maximized on Flomax 0.8 mg daily. Change to terazosin. Stopped since this was making him feel dizzy. Imaging - ultrasound possible multiple echogenic foci within kidney representing vascular calcifications, incomplete bladder emptying, prostate 22 cc PSAs: 05/12 0.2, 02/09 0.2, 03/14 0.2 A1c: 08/13 5.6 PFSH Medical History Atrial fibrillation with rapid ventricular response Supplemental oxygen dependent ILD (interstitial lung disease) COPD (chronic obstructive pulmonary disease) Tubular adenoma of colon (~2021) Postoperative hypothyroidism Obesity (BMI 30-39.9) Atrial fibrillation Chest discomfort Bronchitis Hemoptysis HOLLOWAY (dyspnea on exertion) Abnormal SPEP Multinodular thyroid Swelling of left lower extremity Pulmonary nodules/lesions, multiple Ground glass opacity present on imaging of lung Wedge compression fracture of T9 vertebra (~2018) Coronary artery disease Hypertension Right renal stone Thyroid nodule Vitamin D deficiency Ascending aorta dilatation Obesity (BMI 30-39.9) Psoriasis Hypercholesterolemia Former smoker Stable angina Surgical History Status post AAA (abdominal aortic aneurysm) repair Hx of bilateral cataract extraction (~2022) History of partial thyroidectomy (~2020) History of heart artery stent (~2019) History of colonoscopy History of cardioversion (~2020) History of appendectomy History of tonsillectomy History of lung biopsy (~2016) Family History Father Heart disease Mother Throat cancer Paternal Grandfather Heart disease Social History Household Members: Spouse Housing: House Are you a primary home care provider to a significant other at home: No Do you presently have visiting nurse or other home services: No Unable to assess alcohol history related to: Unknown Alcohol intake: former Year quit: 2014 Patient Tobacco Use Status: Former Tobacco user Tobacco use type: Cigarette Years Smoked: 50 e-Cigarette/Vaping Use: Former Use Second Hand Smoke Exposure: Yes Advance Directives Date on File: 09/21/20 service: Yes Current occupational status: retired Cognitive needs: No Hearing needs: No Vision needs: Yes (Glasses) Review of Systems Const Denies chills and Denies fever(s) Card Reports no additional complaints and Denies syncope Resp Denies cough GI Denies abdominal pain and Denies heartburn Reports as per HPI and Denies change in libido Neuro Denies syncope Psych Denies change in libido Endo Denies change in libido Physical Exam Const General: cooperative, healthy appearing, comfortable and no acute distress Orientation/consciousness: patient oriented x3 HEENT Face and sinus: Yes normal facial exam Mouth: moist mucous membranes Neck Neck: Yes normal visual inspection, Yes full ROM and Yes trachea midline Chest Chest palpation & inspection: normal inspection of the chest Resp Effort & Inspection: normal respiratory effort, able to speak in complete sentences and no respiratory distress GI Inspection: Yes normal to inspection Back/Spine/Pelvis Cervical Spine: normal cervical lordosis Thoracic/Lumbar Spine: thoracic and lumbar spine normal to inspection Skin General skin exam: no rashes or lesions noted Neuro General: patient oriented x3, gait normal, tone normal and moves all extremities Extrem General: Yes normal to inspection and Yes capillary refill normal Office Procedures Post Void Residual Post Residual Void Post Void Residual (PVR): 82 06147-Fqrd Void Residual by ultrasound Results AMB Urinalysis, Automated UA Leukoctes 125 Kiana/uL Last Edit by URBANO Senior on 09/29/24 09:56 UA Nitrite Negative Last Edit by URBANO Senior on 09/29/24 09:56 UA Urobilinogen 0.2 mg/dL Last Edit by URBANO Senior on 09/29/24 09:56 UA Protein 0 mg/dL Last Edit by URBANO Senior on 09/29/24 09:56 UA pH 6.0 Last Edit by URBANO Senior on 09/29/24 09:56 UA Blood 0 Sam/uL Last Edit by URBANO Senior on 09/29/24 09:56 UA Specific [place] 1.015 Last Edit by URBANO Senior on 09/29/24 09:56 UA Ketone Negative Last Edit by URBANO Senior on 09/29/24 09:56 UA Bilirubin 0 mg/dL Last Edit by URBANO Senior on 09/29/24 09:56 UA Glucose 250 mg/dL Last Edit by URBANO Senior on 09/29/24 09:56 Results Reviewed Results Reviewed: Laboratory Last Values Urine pH (Auto) 6.0 09/29/24 09:55 Specific [place] (Auto) 1.015 09/29/24 09:55 Urine Protein (Auto) 0 mg/dL 09/29/24 09:55 Glucose (UA)(Auto) 250 mg/dL 09/29/24 09:55 Urine Ketones (Auto) Negative 09/29/24 09:55 Urine Blood (Auto) 0 Sam/uL 09/29/24 09:55 Urine Nitrite (Auto) Negative 09/29/24 09:55 Urine Bilirubin (Auto) 0 mg/dL 09/29/24 09:55 Urine Urobilinogen (Auto) 0.2 mg/dL 09/29/24 09:55 Leukocyte Esterase (Auto) 125 Kiana/uL 09/29/24 09:55 Assessment & Plan Assessment & Plan (1) Lower urinary tract symptoms: Code(s): R39.9 - Unspecified symptoms and signs involving the genitourinary system Category: Medical (2) Bilateral renal stones: Comment: June 2023 Code(s): N20.0 - Calculus of kidney Category: Medical Plan Six-month follow-up PVR stop Jardiance Orders: Orders Urine Culture Today N39.0 - Urinary tract infection, site not specified AMB Urinalysis Automated Today Z13.9 - Encounter for screening, unspecified Medications: Discontinued empagliflozin Discontinued Reason: Doctor's Order 10 mg PO DAILY 90 tabs 3RF Patient Instructions: This note is constructed using voice recognition software. While every effort has been made to ensure accuracy purchasing director errors may have been included. Imaging studies, laboratory and physical exam results were discussed and reviewed in detail. No major barriers to patient understanding were identified. An opportunity to ask questions regarding the treatment plan was provided. All questions were answered. The patient expressed understanding and agreement with the above treatment plan. The patient is aware they should contact our office by phone for worsening of their current condition or the appearance of new urologic symptoms. Compliance is encouraged with any medications and followup testing that is ordered. It is a privilege to participate in the urologic care of your patient. If you have any questions or concerns regarding treatment for the above conditions, or other urologic issues, please do not hesitate to contact me. The office telephone contact is [phone]. Sincerely, Dr Joel George MD, [facility] - Urology Compassionate Specialist Care for the Genitourinary System Coding Level of Care Code Est Pt Level 4 (58643) Diagnoses Lower urinary tract symptoms R39.9 Bilateral renal stones N20.0 CPT Codes Post Residual Void - PVR CPT Code: 96276-Kmdt Void Residual by ultrasound ([id number])
--- OUTSIDE RECORDS SUMMARY | 2024-09-29 10:13 | XMS_ITS | Patient Health Record ---
Author Organization [facility] Address [address] [place] [address] Care Team Providers Care Fender Mechanic Apprentice Name Role Phone Oswaldo Delgado MD Primary Care Provider Ever Colmenares [phone] Allergies Allergen (clinical drug ingredient) Drug/Non Drug [...] Problem Status W/U Status Risk Notes Problem 518029166 Encounter for screening for malignant neoplasm of colon (Z12.11) Active confirmed Problem Diverticulosis of colon (538066170) Diverticulosis of colon (K57.30) Active confirmed Problem 75423946 Esophageal dysphagia (R13.19) Active confirmed Problem 246543948 rn long term care curren t use of anticoagulant (Z79.01) Active confirmed Plan Of Treatment Pending Test Test Name Order Date XR BARIUM SWALLOW-ESOPHAGUS 05/23/2022 Future Test Test Name Order Date COLONOSCOPY 04/27/2021 Insurance Providers Payer Name Payer Address Payer Phone Subscriber Number Group Number Insured Name Patient Relationship to Insured Coverage Start Date Coverage End Date MEDICARE OF [place] [address] [place] [address] [id number] FAISAL ARELLANO Self - patient is the insured MEDEX ATTN CLAIMS [address] [place] [address] [phone] [id number] FAISAL ARELLANO Self - patient is the insured Medical (General) History Medical History History ICD Code Ascending aortic aneurysm COPD Coronary artery disease--[place] and 2 stents in 2019-Dr. Jean-Baptiste Osteoporosis Psoriasis - on humira pulmonary nodule Renal stones Thyroid nodule Vitamin D deficiency Wedge compression fracture of T9 vertebr a Hypertension Afib Denies DM,CVA,renal disease Negative screening colonoscopy in 2007 Colonoscopy 05/2020 with a small tubular adenoma removed Surgical History Surgery Date(Month/Year) Appendectomy Tonsillectomy Lung biopsy 11/22/2016 Thyroid-benign
== END 2024-09-29 10:51 | disposition home or self-care (01) ==
LOC: HO.HUSH 09:21
PROVIDERS: PCP Internal Medicine; Visit Provider Urology
DX: R39.9 Unspecified symptoms and signs involving the genitourinary system (principal); N20.0 Calculus of kidney; Z13.9 Encounter for screening, unspecified
CPT/HCPCS: 99214

== ENCOUNTER 2024-09-29 09:20 | Outpatient (REF) | payer MEDICARE, SELFPAY ==
[2024-07-21 15:00] VITALS: BMI 32.0
== END 2024-09-29 09:21 | disposition home or self-care (01) ==
LOC: HO.LAB 09:20
PROVIDERS: PCP Internal Medicine; Visit Provider Urology
DX: R39.9 Unspecified symptoms and signs involving the genitourinary system (principal); N20.0 Calculus of kidney; N39.0 Urinary tract infection, site not specified
CPT/HCPCS: 51798; 81003; 87086; 99212

== ENCOUNTER 2024-10-31 06:32 | Outpatient (REF) | payer MEDICARE, SELFPAY ==
[2024-07-21 15:00] VITALS: BMI 32.0
[2024-10-31 08:25] LABS: MANUAL DIFF FLAG NO
[2024-10-31 08:35] LABS: Hemoglobin A1C 141.4551 umol/L; Total Hemoglobin (HGBA1C) 3198.3516 umol/L
[2024-10-31 08:42] LABS: Hematocrit 37.2 % (42.0-52.0); Hemoglobin 12.3 g/dl (14.0-18.0); Imm Gran Abs Auto 0.03 X10*3/uL (0.00-0.03); Imm Gran Pct Auto 0.4 % (0.0-0.4); Lymphocytes Absolute Auto 0.9 X10*3/uL (1.2-4.9); Mean Corpuscular HGB Conc 33.1 g/dl (31.0-36.0); Mean Corpuscular Hemoglobin 34.5 pg (27.0-33.0); Mean Corpuscular Volume 104.2 fL (80.0-98.0); NRBC Abs Auto 0.000 X10*3/uL (0.0-0.012); NRBC Pct Auto 0.0 /100WBC (0.0-0.2); Platelet Count 165 X10*3/uL (160-400); Red Blood Count 3.57 X10*6/uL (4.60-5.80); Reticulocytes Absolute 0.078 X10*6/uL (0.026-0.095); White Blood Count 6.7 X10*3/uL (4.8-10.8)
[2024-10-31 08:45] LABS: Alanine Aminotransferase 23 U/L (0-40); Albumin Level 4.0 g/dL (3.5-5.0); Alkaline Phosphatase 131 U/L (39-117); Anion Gap 12 (12-20); Aspartate Amino Transferase 29 U/L (5-37); Blood Urea Nitrogen 24 mg/dL (9-16); Calcium 9.0 mg/dL (8.4-10.2); Carbon Dioxide 28 mmol/L (22-29); Chloride 103 mmol/L (96-108); Cholesterol 115 mg/dL (<200); Estimated Glomerular Filt Rate > 60; HDL Cholesterol 38 mg/dL (>40); Iron 91 mcg/dL (45-160); Percent Iron Saturation 34 % (15-50); Potassium 3.5 mmol/L (3.3-5.1); Sodium 139 mmol/L (135-145); Total Iron Binding Capacity 271 mcg/dL (228-428); Total Protein 7.1 g/dL (6.5-8.0); Triglycerides 103 mg/dL (<150); Unsaturated Iron Binding 180 ug/dL
[2024-10-31 09:01] LABS: Ferritin 81 ng/mL (20-250); Free T4 (Free Thyroxine) 0.94 ng/dL (0.71-1.85); Thyroid Stimulating Hormone 3.08 uIU/mL (0.32-4.0)
[2024-10-31 09:04] LABS: B Type Natriuretic Peptide 300 pg/mL (<100)
[2024-10-31 09:12] LABS: Folate 10.6 ng/mL (> or = 4.0); Vitamin B12 966 pg/mL (200-900)
== END 2024-10-31 06:33 | disposition home or self-care (01) ==
LOC: HO.HMGCLDS 06:32
PROVIDERS: PCP Internal Medicine; Visit Provider Internal Medicine
DX: E89.0 Postprocedural hypothyroidism (principal); I25.10 Atherosclerotic heart disease of native coronary artery without angina pectoris; E11.65 Type 2 diabetes mellitus with hyperglycemia; E78.00 Pure hypercholesterolemia, unspecified
CPT/HCPCS: 36415; 80053; 80061; 82043; 82306; 82570; 82607; 82728; 82746; 83036; 83540; 83880; 84439; 84443; 85025; 85045

== ENCOUNTER 2024-11-05 08:20 | Outpatient (AMB) | payer MEDICARE, SELFPAY ==
[2024-07-21 15:00] VITALS: BMI 32.0
--- NOTE | 2024-11-05 08:23 | A.OFFPC_ITS ---
Vital Signs 11/05/24 08:24 Height 5 ft 9 in Weight 201 lb 4 oz BMI 29.7 BP 104/62 Blood Pressure Location Lt brachial Position Sitting Pulse 98 Pulse Source Pulse Oximeter Temp 97.3 F Temp Source Temporal Artery Scan Pulse Oximetry (%) 92 Oxygen Delivery Method Room Air Intake Visit Reasons: DM, CAD, A fib Allergies Penicillins Allergy (Severe, Verified 11/05/24 08:26) Anaphylaxis hydrochlorothiazide Allergy (Unknown, Verified 11/05/24 08:26) Unknown lisinopril Allergy (Unknown, Verified 11/05/24 08:26) Unknown empagliflozin (From [employer]) Adverse Reaction (Intermediate, Unverified 11/05/24 08:50) UTI regadenoson (From [employer]) Adverse Reaction (Verified 11/05/24 08:26) Bradycardic Medication List - Last Reconciled 11/05/24 by Oswaldo Delgado MD adalimumab (Humira(CF) Pen) 40 mg subcut Q2W apixaban (Eliquis) 5 mg PO BID 90 days atorvastatin 80 mg PO BEDTIME eprxqpshsj-saplcrwp-cchbcbqikp 160-9-4.8 mcg/actuation (Breztri Aerosphere) 2 inhalations inhalation BID cholecalciferol (vitamin D3) 50 mcg PO DAILY clopidogrel 75 mg PO DAILY compress.stocking,knee,reg,med As directed 20-30 mm HG cyanocobalamin (vitamin B-12) (Vitamin B-12) 1,000 mcg PO DAILY diclofenac sodium 1% (Arthritis Pain (diclofenac)) 4 grams topical QID digoxin 125 mcg PO 3XW diltiazem HCl CD 120 mg PO DAILY famotidine 20 mg PO BID 90 days ferrous sulfate 325 mg PO DAILY 90 days furosemide (Lasix) 40 mg (2 x 20 mg) PO QAM levothyroxine 50 mcg PO DAILY@0600 metoprolol tartrate 50 mg PO BID 90 days [OXYGEN 2 L NC keep sats > 90 As directed] [PORTABLE OXYGEN TANK As directed] potassium chloride ER (Klor-Con) 10 mEq PO BID tamsulosin 0.8 mg (2 x 0.4 mg) PO DAILY Tobacco use date assessed: 11/05/24 Fall risk assessment: No Falls in past year Last assessed Fall Risk: 11/05/24 Dental Screening Dental Screen Date: 06/16/24 Did you have a dental visit in the last 12 months?: Yes Did you have a dental problem in the last 6 months where you did not have access to dental care?: No Was dental information given to patient?: Patient has dentist HPI DM, CAD, A fib HPI Details PAtient complains of having dysuria. [facility] Medical History Atrial fibrillation with rapid ventricular response Supplemental oxygen dependent ILD (interstitial lung disease) COPD (chronic obstructive pulmonary disease) Tubular adenoma of colon (~2021) Postoperative hypothyroidism Obesity (BMI 30-39.9) Atrial fibrillation Chest discomfort Bronchitis Hemoptysis HOLLOWAY (dyspnea on exertion) Abnormal SPEP Multinodular thyroid Swelling of left lower extremity Pulmonary nodules/lesions, multiple Ground glass opacity present on imaging of lung Wedge compression fracture of T9 vertebra (~2018) Coronary artery disease Hypertension Right renal stone Thyroid nodule Vitamin D deficiency Ascending aorta dilatation Obesity (BMI 30-39.9) Psoriasis Hypercholesterolemia Former smoker Stable angina Surgical History Status post AAA (abdominal aortic aneurysm) repair Hx of bilateral cataract extraction (~2022) History of partial thyroidectomy (~2020) History of heart artery stent (~2019) History of colonoscopy History of cardioversion (~2020) History of appendectomy History of tonsillectomy History of lung biopsy (~2016) Family History Father Heart disease Mother Throat cancer Paternal Grandfather Heart disease Social History Household Members: Spouse Housing: House Are you a primary multi care technician to a significant other at home: No Do you presently have visiting nurse or other home services: No Unable to assess alcohol history related to: Unknown Alcohol intake: former Year quit: 2014 Patient Tobacco Use Status: Former Tobacco user Tobacco use type: Cigarette Years Smoked: 50 e-Cigarette/Vaping Use: Former Use Second Hand Smoke Exposure: Yes Advance Directives Date on File: 09/21/20 service: Yes Current occupational status: retired Cognitive needs: No Hearing needs: No Vision needs: Yes (Glasses) Questionnaire PHQ-9 Over the last 2 weeks, how often have you been bothered by any of the following problems? 1. Little interest or pleasure in doing things: not at all 2. Feeling down, depressed, or hopeless: not at all 3. Trouble falling or staying asleep, or sleeping too much: not at all 4. Feeling tired or having little energy: more than half the days 5. Poor appetite or overeating: not at all 6. Feeling bad about yourself - or that you are a failure or have let yourself or your family down: not at all 7. Trouble concentrating on things, such as reading the newspaper or watching television: not at all 8. Moving or speaking so slowly that other people could have noticed. Or the opposite - being so fidgety or restless that you have been moving around a lot more than usual: not at all 9. Thoughts that you would be better off or of hurting yourself in some way: not at all Total score: 2 Source: Developed by Drs. Ever Nelson, Sarah Galindo, Lopez Owen and colleagues, with an educational moira from [employer]. Thrive Questionnaire Date Thrive assessed: 06/16/24 I am a: Patient What is your living situation today?: I have a steady place to live Within the past 12 months, did the food you bought not last and you didn't have the money to get more?: Never true Within the past 12 months, did you worry whether your food would run out before you got money to buy more?: Never true Do you have trouble paying for medicines?: No Do you have trouble getting transportation to medical appointments?: No Do you have trouble paying your heating and electricity bill?: No Do you have trouble taking care of your child, family member or friend?: No Do you have trouble with day-to-day activities such as bathing, preparing meals, shopping, managing finances, etc.?: No Are you currently unemployed and looking for a job?: No Are you interested in more education?: No Please select the resources that you would like help with: None Currently or been in a relationship where the following occur: No concerns reported THRIVE Score: 0 AUDIT C Alcohol Use Questionnaire (AUDIT-C) 1. How often do you have a drink containing alcohol?: Never 3. How often do you have six or more drinks on one occasion?: Never Total Score: 0 JORGE-7 AMB Questionnaire JORGE-7 Date JORGE - 7 assessed: 06/16/24 Feeling nervous, anxious, or on edge: 0 = Not at all Not being able to stop or control worryin = Not at all Worrying too much about different things: 0 = Not at all Trouble relaxin = Not at all Being so restless that it is hard to sit still: 0 = Not at all Becoming easily annoyed or irritable: 0 = Not at all Feeling afraid as if something awful might happen: 0 = Not at all Total OJRGE-7 score (0-4 normal; 5-9 mild; 10-14 moderate; 15-21 severe): 0 Source: Developed by Drs. Ever Nelson, Sarah Galindo, Lopez Owen and colleagues, with an educational moira from [employer]. Physical exam (Primary Care) Vital Signs: Last Vital Signs Temp 97.3 F 11/05/24 08:24 Pulse 98 11/05/24 08:24 BP 104/62 11/05/24 08:24 Pulse Ox 92 11/05/24 08:24 Oxygen Delivery Method Room Air 11/05/24 08:24 BMI result Body Mass Index 29.7 Tobacco/Smoking Status: Tobacco use Status Tobacco use date assessed 11/05/24 11/05/24 08:27 Patient Tobacco Use Status Former Tobacco user 11/05/24 08:27 Tobacco use type Cigarette 11/05/24 08:27 e-Cigarette/Vaping Use Former Use 11/05/24 08:27 PHQ-9: PHQ-9 Score PHQ-9: Total score 2 11/05/24 08:42 Thrive Assessment: Date of Thrive Assessment Date Thrive assessed 06/16/24 11/05/24 08:27 Currently or been in a relationship where the following occur: No concerns reported Const General: alert; No acute distress Eyes Conjunctivae: conjunctivae normal Resp Auscultation: clear to auscultation bilaterally Cardio Rate: regular rate Rhythm: regular rhythm GI Inspection: Yes normal to inspection Extrem General: Yes normal to inspection and No edema Results AMB Urinalysis, Automated UA Leukoctes 500 Kiana/uL Last Edit by Guillermina Fried CMA on 11/05/24 08:53 UA Nitrite Negative Last Edit by Guillermina Fried CMA on 11/05/24 08:53 UA Urobilinogen 0.2 mg/dL Last Edit by Guillermina Fried CMA on 11/05/24 08:53 UA Protein 0 mg/dL Last Edit by Guillermina Fried CMA on 11/05/24 08:53 UA pH 6.0 Last Edit by Guillermina Fried CMA on 11/05/24 08:53 UA Blood 0 Sam/uL Last Edit by Guillermina Fried CMA on 11/05/24 08:53 UA Specific [place] 1.015 Last Edit by Guillermina Fried CMA on 11/05/24 08:53 UA Ketone Negative Last Edit by Guillermina Fried CMA on 11/05/24 08:53 UA Bilirubin 0 mg/dL Last Edit by Guillermina Fried CMA on 11/05/24 08:53 UA Glucose 0 mg/dL Last Edit by Guillermina Fried CMA on 11/05/24 08:53 Results Reviewed Results Reviewed: Laboratory Last Values Urine pH (Auto) 6.0 11/05/24 08:52 Specific [place] (Auto) 1.015 11/05/24 08:52 Urine Protein (Auto) 0 mg/dL 11/05/24 08:52 Glucose (UA)(Auto) 0 mg/dL 11/05/24 08:52 Urine Ketones (Auto) Negative 11/05/24 08:52 Urine Blood (Auto) 0 Sam/uL 11/05/24 08:52 Urine Nitrite (Auto) Negative 11/05/24 08:52 Urine Bilirubin (Auto) 0 mg/dL 11/05/24 08:52 Urine Urobilinogen (Auto) 0.2 mg/dL 11/05/24 08:52 Leukocyte Esterase (Auto) 500 Kiana/uL 11/05/24 08:52 Coding Level of Care Code Est Pt Level 4 (56622) Complex EM visit Add On G2211 Diagnoses Type 2 diabetes mellitus with hyperglycemia E11.65 Postoperative hypothyroidism E89.0 Hypercholesterolemia E78.00 Permanent atrial fibrillation I48.21 Coronary artery disease involving kenaitze coronary artery of kenaitze heart without angina pectoris I25.10 Associated angina: without angina Coronary Disease-Associated Artery/Lesion type: ken[place]ze artery [place] vs. transplanted heart: kenaitze heart Essential hypertension I10 Hypertension type: essential hypertension Bilateral renal stones N20.0 Anemia D64.9 COPD (chronic obstructive pulmonary disease) J44.9 Dysuria R30.0 Assessment & Plan Assessment & Plan (1) Type 2 diabetes mellitus with hyperglycemia: Comment: Dr. Waddell and Dr. Mccord Code(s): E11.65 - Type 2 diabetes mellitus with hyperglycemia Category: Medical Plan: Decrease the amount of carbohydrate intake, pasta, bread, rice and potatoes are all sugar and that is aside from all the sweet stuff, remember that fruits are good but they are Sweet also. Jardiance taken out due to problem ofrecurrent UTI (2) Postoperative hypothyroidism: Comment: (s/p left hemithyroidectomy 03/2021) Code(s): E89.0 - Postprocedural hypothyroidism Category: Medical Plan: Continue with thyroid medication at 50 mcg once a day (3) Hypercholesterolemia: Code(s): E78.00 - Pure hypercholesterolemia, unspecified Category: Medical Plan: Avoid fried foods, chicken skin, eggs, butter margarine, pastries and meat. Be it pork or beef they have a lot of cholesterol presently on atorvastatin 80 mg once a day (4) Permanent atrial fibrillation: Code(s): I48.21 - Permanent atrial fibrillation Category: Medical Plan: Patient on metoprolol diltiazem and anticoagulation with Eliquis renal function done in October 2024 (5) Coronary artery disease: Comment: (NSTEMI 04/2019 - JL + proximal and distal RCA rotablation) 03/01/2024 PCI to RCA Code(s): I25.10 - Atherosclerotic heart disease of ken[place]ze coronary artery without angina pectoris Category: Medical Qualifiers: Associated angina: without angina Coronary Disease-Associated Artery/Lesion type: [place] artery [place] vs. transplanted heart: kenaitze heart Qualified Code(s): I25.10 - Atherosclerotic heart disease of ken[place]ze coronary artery without angina pectoris Plan: Control the cholesterol, weight, blood pressure, diabetes on anticoagulation with Eliquis (6) Hypertension: Code(s): I10 - Essential (primary) hypertension Category: Medical Qualifiers: Hypertension type: essential hypertension Qualified Code(s): I10 - Essential (primary) hypertension Plan: Continue with blood pressure medication. Decrease salt intake and exercise continuing with diltiazem as well as metoprolol (7) Bilateral renal stones: Comment: June 2023 Code(s): N20.0 - Calculus of kidney Category: Medical Plan: Keep well hydrated patient follows up with urology (8) Anemia: Code(s): D64.9 - Anemia, unspecified Category: Medical Plan: Stable continue to monitor (9) COPD (chronic obstructive pulmonary disease): Code(s): J44.9 - Chronic obstructive pulmonary disease, unspecified Category: Medical Plan: Patient on oxygen has Breztri (10) Dysuria: Code(s): R30.0 - Dysuria Category: Medical Plan History of Present Illness The patient is a 78-year-old male presenting for a follow-up visit. The patient has a history of hypothyroidism, hypertension, hypercholesterolemia, coronary artery disease, and interstitial lung disease with COPD. He also has an ascending aortic dilatation, last measured at 4.7 cm in December 2023, with a follow-up CAT scan scheduled for December. The patient has a history of thoracic vertebral fracture and osteoporosis. He also has atrial fibrillation, diabetes mellitus, and nephrolithiasis. The patient follows up with dermatology for seborrheic keratosis and psoriasis. The patient has chronic anemia, with the last blood work showing hemoglobin at 12.3 g/dL and hematocrit at 37.2%. Electrolytes showed low normal potassium at 3.5 mmol/L, and renal function is stable. Blood sugar was 148 mg/dL with a hemoglobin A1c of 6.2%. BNP was 300 pg/mL, but the patient is compensated. LDL cholesterol was 57 mg/dL, which is at goal. Vitamin D was low, and thyroid function was normal. Health Maintenance - Colonoscopy is up to date. - Follow-up CAT scan scheduled for ascending aortic dilatation. Social History Review of Systems Physical Exam Results - Labs: Hemoglobin 12.3 g/dL, Hematocrit 37.2%, Potassium 3.5 mmol/L, Blood sugar 148 mg/dL, Hemoglobin A1c 6.2%, BNP 300 pg/mL, LDL cholesterol 57 mg/dL, Vitamin D low. - Imaging: Echocardiogram in December 2023 showed ascending aortic dilatation at 4.7 cm. Plan The patient will continue with current management for hypothyroidism, hypertension, hypercholesterolemia, coronary artery disease, and interstitial lung disease with COPD. A follow-up CAT scan is scheduled for the ascending aortic dilatation to monitor its progression. For osteoporosis, the patient should continue with current treatment and monitoring for any new fractures. Atrial fibrillation management includes anticoagulation with Eliquis and monitoring of renal function. Diabetes management involves dietary modifications to control blood sugar levels, as Jardiance was discontinued due to urinary tract obstruction. The patient is advised to maintain hydration to help manage nephrolithiasis and prevent further stone formation. The patient will follow up with dermatology for seborrheic keratosis and psoriasis management. Anemia will be monitored with regular blood work to ensure stability. Patient was informed and verbally consented to the use of an ambient scribe for clinic note documentation during this visit. Discussion Notes During the visit, I discussed with the patient the importance of continuing current management for his chronic conditions, including hypothyroidism, hypertension, and coronary artery disease. We reviewed the need for a follow-up CAT scan for the ascending aortic dilatation and the importance of monitoring his osteoporosis and atrial fibrillation. I advised dietary modifications to manage diabetes and emphasized the need for hydration to prevent nephrolithiasis complications. The patient was informed about the plan to follow up with dermatology and the need for regular blood work to monitor anemia. Patient Instructions - Continue taking all prescribed medications as directed. - Schedule and attend the follow-up CAT scan for the aortic dilatation. - Maintain a balanced diet to help control blood sugar levels. - Stay hydrated to help manage kidney stones. - Follow up with dermatology for skin conditions. - Monitor for any new symptoms and report them to the healthcare provider. Orders: Orders AMB Urinalysis Automated Today R30.0 - Dysuria, Z13.9 - Encounter for screening, unspecified Medications: New nitrofurantoin monohyd/m-cryst 100 mg (Macrobid) must administer with a meal/food 100 mg PO Q12H 14 caps 0RF 7 days R30.0 - Dysuria
[2024-11-05 08:24] VITALS: BP 104/62; PULSE 98; TEMP 36.3; O2SAT 92; BMI 29.7
--- OUTSIDE RECORDS SUMMARY | 2024-11-05 08:24 | XMS_ITS | Patient Health Record ---
Author Organization [facility] Address [address] [place] [address] Care Team Providers Care Project Management Instructor Name Role Phone Oswaldo Delgado MD Primary Care Provider Ever Colmenares [phone] Allergies Allergen (clinical drug ingredient) Drug/Non Drug [...] Problem Status W/U Status Risk Notes Problem 413865673 Encounter for screening for malignant neoplasm of colon (Z12.11) Active confirmed Problem Diverticulosis of colon (305021569) Diverticulosis of colon (K57.30) Active confirmed Problem 72301920 Esophageal dysphagia (R13.19) Active confirmed Problem 282616676 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
--- OUTSIDE RECORDS SUMMARY | 2024-11-05 08:25 | XMS_ITS | Patient Health Record ---
[facility] Address [address] [place] [address] Care Team Providers Care Core Mounter Name Role Phone Oswaldo Delgado Primary Care Provider Buddy Russo Unavailable [phone] Allergies Allergen (clinical drug ingredient) Drug/Non Drug [...] application to affected area Externally Twice a day; Duration: 30 days Not-Taking Jardiance 10 MG 1 tablet Orally Once a day Active Levothyroxine Sodium 50 MCG 1 tablet in the morning on an empty stomach Orally Once a day Active Dilantin Active Ammonium Lactate 12 % 1 application to affected area Externally Twice a day; Duration: 30 days Not-Taking Vitamin B12 1000 MCG 1 tablet Orally Onc e a day Active Betamethasone Dipropionate Aug 0.05 % 1 application Externally Once a day; Duration: 30 days 08/14/2019 Not-Taking Eliquis 5 MG [...] Problem Acquired hammer toe of left foot (8171216122757102) Other hammer toe(s) (acquired), left foot (M20.42) Active confirmed Problem Bilateral atherosclerosis of arteries of lower limbs (disorder) (89191005629309270 ) Atherosclerosis of [place] artery of both lower extremities, with unspecified presence of clinical manifestation (I70.203) Active confirmed Q7(A), Q8(2B), Q9(1B,2 C) Problem Localized, primary osteoarthritis of the ankle and/or foot (293163391) Arthritis of joint of lesser toe, left (M19.072) Active confirmed Vital Signs Blood pressure diastolic 65 mm Hg 08/21/2024 Height 5ft 8in in 08/21/2024 Blood pressure systolic 130 mm Hg 08/21/2024 Weight 198 lbs 08/21/2024 BMI 30.1 kg/m2 08/21/2024 Encounters Encounter Location Date Provider Diagnosis [address] [address] 08/21/2024 Buddy Morin Atherosclerosis of [place] artery of both lower extremities, with unspecified presence of clinical manifestation I70.203 ; Other hammer toe(s) (acquired), left foot M20.42 ; Arthritis of joint of lesser toe, left M19.072 and Pain in toe of left foot M79.[address] [address] 09/10/2024 Buddy Morin [address] [place] [address] 09/10/2024 Buddy Morin Assessments Encounter Date Diagnosis (ICD Code) Assessment Notes Treatment Notes Treatment Clinical Notes Section Notes 08/21/2024 Other hammer toe(s) (acquired), left foot (ICD-10 - M20.42) 08/21/2024 Atherosclerosis of [place] artery of both lower extremities, with unspecified presence of clinical manifestation (ICD-10 - I70.203) Q7(A), Q8(2B), Q9(1B,2C) 08/21/2024 Arthritis of joint of lesser toe, left (ICD-10 - M19.072) 08/21/2024 Pain in toe of left foot (ICD-10 - M79.675) Plan Of Treatment Pending Test Test Name Order Date X ray : Foot, left 3V 08/21/2024 52106-Xufq Destruction, 05-0507/19/2017 70401-Nryl Destruction, 05-0508/06/2017 43326-Ecpa Destruction, 05-0508/23/2017 01327-Huaj Destruction, 05-0509/10/2017 19949-Osvr Destruction, 05-0510/04/2017 86976-Cins Destruction, 05-0510/29/2017 15384-Iptb Destruction, 05-0511/19/2017 23337-Kmlg Destruction, 05-0511/29/2017 43731-Cmzk Destruction, 05-0512/06/2017 06652-Tgdl Destruction, 05-0501/10/2018 Insurance Providers Payer Name Payer Address Payer Phone Subscriber Number Group Number Insured Name Patient Relationship to Insured Coverage Start Date Coverage End Date Medicare National [employer] [address] [place] [address] [id number] Pablito Everett Self - patient is the insured 1 [employer] [address] [place] [address] [phone] [id number] Pablito Everett Self - patient is the insured Medical (General) History Medical History History ICD Code Headaches Psoriasis Measles Chicken pox Cholesterol Rheumatoid Arthritis Cataracts Heart disease High Blood Pressure thyroid COPD Surgical History Surgery Date(Month/Year) appendectomy Stent 2019,03/15 Thyroid Surgery Abdominal Stents 07/13
--- OUTSIDE RECORDS SUMMARY | 2024-11-05 08:25 | XMS_ITS | Data Portability ---
Author Organization [facility] Diane ricardo, [address] Address [address] [place] [address] Assessment No assessment recorded. Plan of Treatment [...] By Organization Details Last Modified Time 05/18/2022 [id number] cuts: care instructions [email or web address] Not available 05/18/2022 [...] - Return to have stiches removed in 10 days. General recommendations: Scalp- 7 days Face- 5 [...] or return here if not improving in 3 days. Not available 05/18/2022 13:49:28 Reason for Referral None Reported. Problems Name Problem SNOMED Code Status Onset Date Resolution Date Notes Provider Name and Address Organization Details Recorded Time Atrial fibrillation 29901505 Active 2022 Malika Shana null, PA - [facility] 3 13:50:16 Chronic obstructive pulmonary disease 58737835 Active 2022 Malika Shana null, PA - [facility] 3 13:50:20 Hypertensive disorder 63213821 Active 2022 Malika Shana null, PA - [facility] 3 13:50:27 Hyperlipidemia 97015714 Active 2022 Malika Otoe null, PA - [facility] 3 13:50:33 Problem Notes None recorded. Medical Equipment None Reported. Allergies Allergen ID Allergen Name Allergen Category Reaction Reaction Severity Criticality Documentation Date Start Date Code Code System Note Provider Name and Address Organization Details Recorded Time 330428 Product containin g penicilli n (product) medicatio n anaphylax is Not available high 05/18/2022 60885 8001 SNOMED Malika Shana null, PA - [...] Heart rate Respiratory rate Body temperature Systolic And Diastolic Provider Name and Address Organization Details Last Updated DateTime 3 172.72 cm 31.9 kg/m2 96487.4 g 95 % 95 % 97 /min 20 /min 97.5 [degF] 167/94 mm[Hg] Malika Saldana PA - [facility] 13:55:29 Social History Question Answer Notes LastModified by UGOBE Details LastModified Time Tobacco Smoking Status Former Smoker Malika Pachecoant hayes PA - [facility] 05/18/2022 13:50:42 When Did You Quit Smoking? 6-10yearssin celastcigare tte Information not available 05/18/2022 Have You Had Direct Contact, Or Contact During Intimacy, With Monkeypox Rash, Scabs, Or Body Fluids From A Person With Monkeypox? No Information not available 05/18/2022 Have You Recently Traveled Abroad? No Information not available 05/18/2022 Sex: Unknown Functional Status Question Answer Note LastModified by UGOBE Details LastModified Time Do you use any [...] SNOMED-CT Code Diagnosis ICD10 Code Diagnosis Note [id number] [facility] [address] [place] [address] 05/04/2019 10:15:48 05/04/2019 11:04:20 [id number] [address] [address] [place] [address] 08/22/2017 10:46:43 08/22/2017 11:28:26 [id number] [address] [address] [address] [place] [address] 11/06/2019 08:12:57 11/06/2019 08:47:49 [id number] [address] [address] [place] [address] 09/10/2018 10:01:20 09/10/2018 11:14:04 [id number] [facility] [address] [place] [address] 11/07/2019 08:20:04 11/07/2019 10:41:03 [id number] [address] [place] [address] 03/02/2020 09:28:03 03/02/2020 11:43:55 [id number] [address] [place] [address] 11/04/2019 08:03:33 11/04/2019 09:40:15 [id number] Donavan Hankins DO [address] [place] [address] 05/18/2022 13:41:02 05/18/2022 14:28:46 Laceration of left hand [id number] S61.412A following oral consent wound was cleaned [...] Concerns Section Related Observation LastModified by Organization Holliai ls LastModified Time None Recorded Concern Status LastModified by Organization Details LastModified Time None Recorded Advance Directives Directive None Recorded Payers Insurance Date Sequence Insurance Name Policy Number Policy Multani Covered Member ID Multani Member ID Guarantor Name 05/18/2022 1 [place]MENT [place] Pablito Everett [id number] Pablito Everett 05/18/2022 2 [place]) [id number] Pablito Gipson Marguerite [id number] Burtonalyssa Gipson Marguerite 05/18/2022 NORIDIAN - SPECIALITY CLAIMS (MEDICARE DME REGION A) Pablito Gipson Marguerite [id number] 25 Burtonalyssa Gipson Marguerite Notes Date Note Type Note Provider Name and Address Organization Details Recorded Time 05/18/2022 text/html UC Wound/LacerationRep orted bypatient.Notes:76 yo malescratched by his house malik plavix and eliquisstill bleedingtried band aids w/o improvementno f/c/n/vminimal pain no CPno SOBno Hano dizzinessno f/c/n/v Donavan Hankins, DO [address] [place], [address], [place] PA - [facility] 05/18/2022 14:30:26
== END 2024-11-05 09:07 | disposition home or self-care (01) ==
LOC: HO.HMCH 08:20
PROVIDERS: PCP Internal Medicine; Visit Provider Internal Medicine
DX: E11.65 Type 2 diabetes mellitus with hyperglycemia (principal); E89.0 Postprocedural hypothyroidism; E78.00 Pure hypercholesterolemia, unspecified; I48.21 Permanent atrial fibrillation; I25.10 Atherosclerotic heart disease of native coronary artery without angina pectoris; I10 Essential (primary) hypertension; N20.0 Calculus of kidney; D64.9 Anemia, unspecified; J44.9 Chronic obstructive pulmonary disease, unspecified; R30.0 Dysuria; Z13.9 Encounter for screening, unspecified

== ENCOUNTER → 2024-11-05 08:20 | Outpatient (BNVA) | payer MEDICARE, SELFPAY ==
[2024-07-21 15:00] VITALS: BMI 32.0
== END ==
PROVIDERS: PCP Internal Medicine; Visit Provider Internal Medicine
DX: E11.65 Type 2 diabetes mellitus with hyperglycemia (principal); E89.0 Postprocedural hypothyroidism; E78.00 Pure hypercholesterolemia, unspecified; I48.21 Permanent atrial fibrillation; I25.10 Atherosclerotic heart disease of native coronary artery without angina pectoris; I10 Essential (primary) hypertension; N20.0 Calculus of kidney; D64.9 Anemia, unspecified; J44.9 Chronic obstructive pulmonary disease, unspecified; R30.0 Dysuria
CPT/HCPCS: 81003; 99212

== ENCOUNTER 2024-12-28 07:13 | Outpatient (REF) | payer MEDICARE, SELFPAY ==
[2024-07-21 15:00] VITALS: BMI 32.0
--- NOTE | ~2024-12-28 | CT_ITS ---
CLINICAL HISTORY: J84.9 - Interstitial pulmonary disease, unspecified CT chest without contrast Comparison: 09/14/2022 Findings: The heart is normal size. There is aortic and coronary arterial calcification The visualized thyroid and mediastinum are otherwise unremarkable. There is minimal interstitial consolidation in the periphery of the right lung. There is large right and trace left pleural effusions. The upper abdomen is unremarkable. The bones are intact. IMPRESSION: 1. Bilateral pleural effusions. 2. Minimal interstitial consolidation This document has been electronically signed by: Enrique Covington MD on 12/28/2024 08:42:44
--- OUTSIDE RECORDS SUMMARY | 2024-12-28 07:17 | XMS_ITS | Patient Health Record ---
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 Phone Oswaldo Delgado MD Primary Care Provider Ever Colmenares [phone] Allergies Allergen (clinical drug ingredient) Drug/Non Drug [...] Problem Status W/U Status Risk Notes Problem 199425310 Encounter for screening for malignant neoplasm of colon (Z12.11) Active confirmed Problem Diverticulosis of colon (434507801) Diverticulosis of colon (K57.30) Active confirmed Problem 76836232 Esophageal dysphagia (R13.19) Active confirmed Problem 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 [place] [address] [id number] FAISAL ARELLANO Self - patient is the insured MEDEX ATTN CLAIMS [address] [place] [address] [id number] FAISAL ARELLANO Self - patient is the [...]
--- OUTSIDE RECORDS SUMMARY | 2024-12-28 07:17 | XMS_ITS | Patient Health Record ---
[facility] Organization [facility] Address [address] [facility] [place] [address] Care Team Providers Care Translator Deaf Name Role Phone Oswaldo Delgado Primary Care Provider Buddy Russo Unavailable [phone] Allergies Allergen (clinical drug ingredient) Drug/Non Drug [...] Problem Acquired hammer toe of left foot (4502520399000851) Other hammer toe(s) (acquired), left foot (M20.42) Active confirmed Problem Bilateral atherosclerosis of arteries of lower limbs (disorder) (98700177767112795 ) Atherosclerosis of akhi[place] artery of both lower extremities, with unspecified presence of clinical manifestation (I70.203) Active confirmed Q7(A), Q8(2B), Q9(1B,2 C) Problem Localized, primary osteoarthritis of the ankle and/or foot (429748241) Arthritis of joint of lesser toe, left (M19.072) Active confirmed Vital Signs Blood pressure diastolic 65 mm Hg 08/21/2024 Height 5ft 8in in 08/21/2024 Blood pressure systolic 130 mm Hg 08/21/2024 Weight 198 lbs 08/21/2024 BMI 30.1 kg/m2 08/21/2024 Encounters Encounter Location Date Provider Diagnosis [address] [address] 08/21/2024 Buddy Morin Atherosclerosis of akhiok artery of both lower extremities, with unspecified presence of clinical manifestation I70.203 ; Other hammer toe(s) (acquired), left foot M20.42 ; Arthritis of joint of lesser toe, left M19.072 and Pain in toe of left foot M79.[address] [address] 09/10/2024 Buddy Morin [address] [address] 09/10/2024 Buddy Morin [facility] [address] [address] 11/18/2024 Buddy Morin Assessments Encounter Date Diagnosis (ICD Code) Assessment Notes Treatment Notes Treatment Clinical Notes Section Notes 08/21/2024 Other hammer toe(s) (acquired), left foot (ICD-10 - M20.42) 08/21/2024 Atherosclerosis of akhiok artery of both lower extremities, with unspecified presence of clinical manifestation (ICD-10 - I70.203) Q7(A), Q8(2B), Q9(1B,2C) 08/21/2024 Arthritis of joint of lesser toe, left (ICD-10 - M19.072) 08/21/2024 Pain in toe of left foot (ICD-10 - M79.675) Plan Of Treatment Pending Test Test Name Order Date X ray : Foot, left 3V 08/21/2024 93940-Vpmf Destruction, -07/19/2017 48717-Husy Destruction, 05-0508/06/2017 06682-Wcef Destruction, 05-0508/23/2017 66396-Kmik Destruction, 05-0509/10/2017 86226-Nclk Destruction, 05-0510/04/2017 33490-Iqii Destruction, 05-0510/29/2017 03603-Puac Destruction, 05-0511/19/2017 81245-Oywg Destruction, 05-0511/29/2017 81017-Unjs Destruction, 05-0512/06/2017 33737-Brja Destruction, 05-0501/10/2018 Insurance Providers Payer Name Payer Address Payer Phone Subscriber Number Group Number Insured Name Patient Relationship to Insured Coverage Start Date Coverage End Date Medicare National Govt Svcs Inc [address] [place] [address] [id number] Pablito Everett Self - patient is the insured 1 Medex Blue Shield [address] [place] [address] [id number] Halton, Edward Self - patient is the insured Medical (General) History Medical History History ICD Code Headaches Psoriasis Measles Chicken pox Cholesterol Rheumatoid Arthritis Cataracts Heart disease High Blood Pressure thyroid COPD Surgical History Surgery Date(Month/Year) appendectomy Stent Thyroid Surgery Abdominal Stents 07/13
== END 2024-12-28 07:14 | disposition home or self-care (01) ==
LOC: HO.CT 07:13
PROVIDERS: PCP Internal Medicine; Visit Provider Internal Medicine Pulmonary Disease
DX: J84.9 Interstitial pulmonary disease, unspecified (principal)
CPT/HCPCS: 71250

== ENCOUNTER → 2024-12-28 07:15 | Outpatient (BNV) | payer MEDICARE, SELFPAY | PROVIDERS: PCP Internal Medicine; Visit Provider Specialist | DX: J84.9 Interstitial pulmonary disease, unspecified (principal) | CPT/HCPCS: 71250 ==

== ENCOUNTER 2024-12-30 11:00 | Outpatient (AMB) | payer MEDICARE, SELFPAY ==
[2024-12-30 10:06] VITALS: BMI 32.0
--- NOTE | 2024-12-30 11:29 | MHC.PC.OV ---
Vital Signs 12/30/24 11:30 Height 5 ft 8 in Weight 207 lb BMI 31.5 BP 120/78 Blood Pressure Location Lt brachial Position Sitting Pulse 95 Pulse Source Pulse Oximeter Temp 97.1 F Temp Source Temporal Artery Scan Pulse Oximetry (%) 99 Oxygen Delivery Method Room Air Intake Visit Reasons: ? UTI frequent urination this morning Intake Note: Patient is here to follow up on UTI?, frequent urination this morning. Architecture Analyst Required: No Wordpress Developer: Not Required per policy Accompanied by: Self / Same As Patient Allergies Penicillins Allergy (Severe, Verified 12/30/24 11:30) Anaphylaxis hydrochlorothiazide Allergy (Unknown, Verified 12/30/24 11:30) Unknown lisinopril Allergy (Unknown, Verified 12/30/24 11:30) Unknown empagliflozin (From Jardiance) Adverse Reaction (Intermediate, Verified 12/30/24 11:30) UTI regadenoson (From Lexiscan) Adverse Reaction (Verified 12/30/24 11:30) Bradycardic Medication List - Last Reconciled 12/30/24 by Billy Cantu MD adalimumab (Humira(CF) Pen) 40 mg subcut Q2W apixaban (Eliquis) 5 mg PO BID 90 days atorvastatin 80 mg PO BEDTIME wecraawmnn-byrxkvnk-swilxymzlw 160-9-4.8 mcg/actuation (Breztri Aerosphere) 2 inhalations PO BID cholecalciferol (vitamin D3) 50 mcg PO DAILY clopidogrel 75 mg PO DAILY compress.stocking,knee,reg,med As directed 20-30 mm HG cyanocobalamin (vitamin B-12) (Vitamin B-12) 1,000 mcg PO DAILY diclofenac sodium 1% (Arthritis Pain (diclofenac)) 4 grams topical QID digoxin 125 mcg PO 3XW diltiazem HCl CD 120 mg PO DAILY famotidine 20 mg PO BID 90 days ferrous sulfate 325 mg PO DAILY 90 days furosemide (Lasix) 40 mg (2 x 20 mg) PO QAM levothyroxine 50 mcg PO DAILY@0600 metoprolol tartrate 50 mg PO BID 90 days nitrofurantoin monohyd/m-cryst 100 mg (Macrobid) 100 mg PO BID 7 days [OXYGEN 2 L NC keep sats > 90 As directed] [PORTABLE OXYGEN TANK As directed] potassium chloride ER (Klor-Con) 10 mEq PO BID tamsulosin 0.8 mg (2 x 0.4 mg) PO DAILY Tobacco use date assessed: 12/30/24 Fall risk assessment: No Falls in past year Last assessed Fall Risk: 12/30/24 Dental Screening Dental Screen Date: 06/16/24 HPI HPI Comments History of Present Illness Details The patient is a 79-year-old male presenting with urinary frequency. He reported urinating multiple times this morning, which is unusual for him. The urination was characterized by varying amounts, with some instances being small and others larger. He also reports mild dysuria. Patient denies fever, chills, night sweats, change in bowel habits or any other sign of infection. The patient has a history of urinary tract infections over the past year, with occasional burning sensations during urination. He is awaiting a prostate procedure, which was delayed due to the placement of a cardiac stent and the need to remain on anticoagulation therapy. [facility] Medical History (Reviewed 11/05/24 @ 08:26 by Guillermina Fried [facility]) Atrial fibrillation with rapid ventricular response Supplemental oxygen dependent ILD (interstitial lung disease) COPD (chronic obstructive pulmonary disease) Tubular adenoma of colon (~2021) Postoperative hypothyroidism Obesity (BMI 30-39.9) Atrial fibrillation Chest discomfort Bronchitis Hemoptysis HOLLOWAY (dyspnea on exertion) Abnormal SPEP Multinodular thyroid Swelling of left lower extremity Pulmonary nodules/lesions, multiple Ground glass opacity present on imaging of lung Wedge compression fracture of T9 vertebra (~2018) Coronary artery disease Hypertension Right renal stone Thyroid nodule Vitamin D deficiency Ascending aorta dilatation Obesity (BMI 30-39.9) Psoriasis Hypercholesterolemia Former smoker Stable angina Surgical History Status post AAA (abdominal aortic aneurysm) repair Hx of bilateral cataract extraction (~2022) History of partial thyroidectomy (~2020) History of heart artery stent (~2019) History of colonoscopy History of cardioversion (~2020) History of appendectomy History of tonsillectomy History of lung biopsy (~2016) Family History Father Heart disease Mother Throat cancer Paternal Grandfather Heart disease Social History Household Members: Spouse Housing: House Are you a primary child care group leader to a significant other at home: No Do you presently have visiting nurse or other home services: No Unable to assess alcohol history related to: Unknown Alcohol intake: former Year quit: 2014 Patient Tobacco Use Status: Former Tobacco user Tobacco use type: Cigarette Years Smoked: 50 e-Cigarette/Vaping Use: Former Use Second Hand Smoke Exposure: Yes Advance Directives Date on File: 09/21/20 service: Yes Current occupational status: retired Cognitive needs: No Hearing needs: No Vision needs: Yes (Glasses) Questionnaire Thrive Questionnaire Date Thrive assessed: 11/05/24 I am a: Patient What is your living situation today?: I have a steady place to live Within the past 12 months, did the food you bought not last and you didn't have the money to get more?: Never true Within the past 12 months, did you worry whether your food would run out before you got money to buy more?: Never true Do you have trouble paying for medicines?: No Do you have trouble getting transportation to medical appointments?: No Do you have trouble paying your heating and electricity bill?: No Do you have trouble taking care of your child, family member or friend?: No Do you have trouble with day-to-day activities such as bathing, preparing meals, shopping, managing finances, etc.?: No Are you currently unemployed and looking for a job?: No Are you interested in more education?: No Please select the resources that you would like help with: None Currently or been in a relationship where the following occur: No concerns reported THRIVE Score: 0 JORGE-7 AMB Questionnaire JORGE-7 Date JORGE - 7 assessed: 06/16/24 Source: Developed by Drs. Ever Nelson, Sarah Galindo, Lopez Owen and colleagues, with an educational moira from [employer]. Review of Systems Const Details: Positives besides what was mentioned in HPI are in BOLD Constitutional: No Weight Change, No Fever, No Chills, No Night Sweats, No Fatigue, No Malaise ENT/Mouth: No Hearing Changes, No Ear Pain, No Nasal Congestion, No Sinus Pain, No Hoarseness, No sore throat, No Rhinorrhea, No Swallowing Difficulty Eyes: No Eye Pain, No Swelling, No Redness, No Foreign Body, No Discharge, No Vision Changes Cardiovascular: No Chest Pain, No SOB, No PND, No Dyspnea on Exertion, No Orthopnea, No Claudication, No Edema, No Palpitations Respiratory: No Cough, No Sputum, No Wheezing, No Smoke Exposure, No Dyspnea Gastrointestinal: No Nausea, No Vomiting, No Diarrhea, No Constipation, No Pain, No Heartburn, No Anorexia, No Dysphagia, No Hematochezia, No Melena, No Flatulence, No Jaundice Genitourinary: No Dysmenorrhea, No DUB, No Dyspareunia, No Dysuria, No Urinary Frequency, No Hematuria, No Urinary Incontinence, No Urgency, No Flank Pain, No Urinary Flow Changes, No Hesitancy Musculoskeletal: No Arthralgias, No Myalgias, No Joint Swelling, No Joint Stiffness, No Back Pain, No Neck Pain, No Injury History Skin: No Skin Lesions, No Pruritis, No Hair Changes, No Breast/Skin Changes, No Nipple Discharge Neuro: No Weakness, No Numbness, No Paresthesias, No Loss of Consciousness, No Syncope, No Dizziness, No Headache, No Coordination Changes, No Recent Falls Psych: No Anxiety/Panic, No Depression, No Insomnia, No Personality Changes, No Delusions, No Rumination, No SI/HI/AH/VH, No Social Issues, No Memory Changes, No Violence/Abuse Hx., No Eating Concerns Heme/Lymph: No Bruising, No Bleeding, No Transfusions History, No Lymphadenopathy Endocrine: No Polyuria, No Polydipsia, No Temperature Intolerance Physical exam (Primary Care) Vital Signs: Last Vital Signs Temp 97.1 F 12/30/24 11:30 Pulse 95 12/30/24 11:30 BP 120/78 12/30/24 11:30 Pulse Ox 99 12/30/24 11:30 Oxygen Delivery Method Room Air 12/30/24 11:30 BMI result Body Mass Index 31.5 Tobacco/Smoking Status: Tobacco use Status Tobacco use date assessed 12/30/24 12/30/24 11:31 Patient Tobacco Use Status Former Tobacco user 12/30/24 11:31 Tobacco use type Cigarette 12/30/24 11:31 e-Cigarette/Vaping Use Former Use 12/30/24 11:31 Thrive Assessment: Date of Thrive Assessment Date Thrive assessed 11/05/24 12/30/24 11:31 Currently or been in a relationship where the following occur: No concerns reported Const Other: Pertinent findings are in BOLD GENERAL APPEARANCE NAD, activity normal for age, well developed/ well nourished, no cyanosis, pallor, or diaphoresis. EYES lids/conjunctiva normal. EARS/NOSE/THROAT Mucous membranes moist, nares normal, lips/teeth normal uvula midline without oral pharyngeal erythema, exudate or swelling TMs normal bilaterally. No lymphangitis/lymphedema. HEAD/NECK normocephalic atraumatic, no facial trauma, neck is supple. RESPIRATORY respiratory effort normal, speaks in full sentences, no tripod position, no accessory muscle use. Lungs clear to auscultation without rhonchi, wheezes, rales CARDIAC Regular rate and rhythm, no edema. ABDOMINAL Soft, ND/NT. No evidence of fluid wave. No pulsatile masses on exam, rebound tenderness, Lr sign or pain over Mcburney's point. MUSCLES/EXTREMITIES No abnormal range of motion, no swelling. SKIN Warm, pink and dry. No rashes, dermatoses, petechiae or lesions. NEUROLOGICAL Speech is clear and appropriate. Normal level of consciousness. Gait and coordination are normal. 5/5 strength in all extremities. PSYCH Normal mood and affect. Judgement/competence is appropriate Results AMB Urinalysis, Automated UA Leukoctes 3 Kiana/uL Last Edit by Kareem Ortiz [facility] on 12/30/24 11:59 UA Nitrite Negative Last Edit by Kareem Ortiz [facility] on 12/30/24 11:59 UA Urobilinogen 0 mg/dL Last Edit by Kareem Ortiz [facility] on 12/30/24 11:59 UA Protein 0 mg/dL Last Edit by Kareem Ortiz [facility] on 12/30/24 11:59 UA pH 6.0 Last Edit by Kareem Ortiz [facility] on 12/30/24 11:59 UA Blood 0 Sam/uL Last Edit by Kareem Ortiz [facility] on 12/30/24 11:59 UA Specific [place] 1.015 Last Edit by Kareem Ortiz [facility] on 12/30/24 11:59 UA Ketone Negative Last Edit by Kareem Ortiz [facility] on 12/30/24 11:59 UA Bilirubin 0 mg/dL Last Edit by CEDRICK Ivan on 12/30/24 11:59 UA Glucose 0 mg/dL Last Edit by CEDRICK Iavn on 12/30/24 11:59 Results Reviewed Results Reviewed: Laboratory Last Values Urine pH (Auto) 6.0 12/30/24 11:32 Specific [place] (Auto) 1.015 12/30/24 11:32 Urine Protein (Auto) 0 mg/dL 12/30/24 11:32 Glucose (UA)(Auto) 0 mg/dL 12/30/24 11:32 Urine Ketones (Auto) Negative 12/30/24 11:32 Urine Blood (Auto) 0 Sam/uL 12/30/24 11:32 Urine Nitrite (Auto) Negative 12/30/24 11:32 Urine Bilirubin (Auto) 0 mg/dL 12/30/24 11:32 Urine Urobilinogen (Auto) 0 mg/dL 12/30/24 11:32 Leukocyte Esterase (Auto) 3 Kiana/uL H* 12/30/24 11:32 Coding Level of Care Code Established Pt Est Pt Level 2 (64942) Patient Type Established Medical Decision Making Straight Forward Diagnoses Acute cystitis without hematuria N30.00 Urinary tract infection type: acute cystitis Hematuria presence: without hematuria Time Spent (min) 15 Assessment & Plan Assessment & Plan (1) UTI (urinary tract infection): Code(s): N39.0 - Urinary tract infection, site not specified Category: Medical Qualifiers: Urinary tract infection type: acute cystitis Hematuria presence: without hematuria Qualified Code(s): N30.00 - Acute cystitis without hematuria Plan: Macrobid 7 days 100 mg BID. Patient will follow-up with Urology regarding prostate procedure knowing he had multiple UTIs in the past year. Plan UTI treatment. Orders: Orders AMB Urinalysis Automated Today R39.15 - Urgency of urination Medications: New nitrofurantoin monohyd/m-cryst 100 mg (Macrobid) must administer with a meal/food 100 mg PO BID 14 caps 0RF 7 days
[2024-12-30 11:30] VITALS: BP 120/78; PULSE 95; TEMP 36.2; O2SAT 99; BMI 31.5
--- OUTSIDE RECORDS SUMMARY | 2024-12-30 14:03 | XMS_ITS | Patient Health Record ---
Author Organization [facility] Address [address] [place] [address] Care Team Providers Care Provisioning Analyst Name Role Phone Oswaldo Delgado MD Primary Care Provider Ever Colmenares [phone] Allergies Allergen (clinical drug ingredient) Drug/Non Drug [...] Problem Status W/U Status Risk Notes Problem 650683822 Encounter for screening for malignant neoplasm of colon (Z12.11) Active confirmed Problem Diverticulosis of colon (407796424) Diverticulosis of colon (K57.30) Active confirmed Problem 01852484 Esophageal dysphagia (R13.19) Active confirmed Problem 050962024 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 [address] [id number] FAISAL ARELLANO Self - patient is the insured MEDEX ATTN CLAIMS [address] [place] [address] [id number] FAISAL ARELLANO Self - patient is the [...]
--- OUTSIDE RECORDS SUMMARY | 2024-12-30 14:03 | XMS_ITS | Patient Health Record ---
[facility] Organization [facility] Address [address] [facility] [place] [address] Care Team Providers Care Supervisor Cutting And Sewing Room Name Role Phone Oswaldo Delgado Primary Care Provider Buddy Russo Unavailable [phone] Allergies Allergen (clinical drug ingredient) Drug/Non Drug [...] Problem Acquired hammer toe of left foot (1007129187350274) Other hammer toe(s) (acquired), left foot (M20.42) Active confirmed Problem Bilateral atherosclerosis of arteries of lower limbs (disorder) (51557698360535219 ) Atherosclerosis of nikolski artery of both lower extremities, with unspecified presence of clinical manifestation (I70.203) Active confirmed Q7(A), Q8(2B), Q9(1B,2 C) Problem Localized, primary osteoarthritis of the ankle and/or foot (539668752) Arthritis of joint of lesser toe, left (M19.072) Active confirmed Vital Signs Blood pressure diastolic 65 mm Hg 08/21/2024 Height 5ft 8in in 08/21/2024 Blood pressure systolic 130 mm Hg 08/21/2024 Weight 198 lbs 08/21/2024 BMI 30.1 kg/m2 08/21/2024 Encounters Encounter Location Date Provider Diagnosis [address] [address] 08/21/2024 Buddy Morin Atherosclerosis of nikolski artery of both lower extremities, with unspecified presence of clinical manifestation I70.203 ; Other hammer toe(s) (acquired), left foot M20.42 ; Arthritis of joint of lesser toe, left M19.072 and Pain in toe of left foot M79.[address] [address] 09/10/2024 Buddy Morin [address] [address] 09/10/2024 Buddy Morin [facility] [address] [address] 11/18/2024 Buddy Morin Assessments Encounter Date Diagnosis (ICD Code) Assessment Notes Treatment Notes Treatment Clinical Notes Section Notes 08/21/2024 Other hammer toe(s) (acquired), left foot (ICD-10 - M20.42) 08/21/2024 Atherosclerosis of nikolski artery of both lower extremities, with unspecified presence of clinical manifestation (ICD-10 - I70.203) Q7(A), Q8(2B), Q9(1B,2C) 08/21/2024 Arthritis of joint of lesser toe, left (ICD-10 - M19.072) 08/21/2024 Pain in toe of left foot (ICD-10 - M79.675) Plan Of Treatment Pending Test Test Name Order Date X ray : Foot, left 3V 08/21/2024 72530-Kxfp Destruction, -07/19/2017 43637-Ddlp Destruction, 05-0508/06/2017 08723-Xaqx Destruction, 05-0508/23/2017 28627-Sdri Destruction, 05-0509/10/2017 87867-Zpmc Destruction, 05-0510/04/2017 52735-Bwpb Destruction, 05-0510/29/2017 32820-Iavw Destruction, 05-0511/19/2017 92869-Gods Destruction, 05-0511/29/2017 65717-Irum Destruction, 05-0512/06/2017 16954-Nemu Destruction, 05-0501/10/2018 Insurance Providers Payer Name Payer Address Payer Phone Subscriber Number Group Number Insured Name Patient Relationship to Insured Coverage Start Date Coverage End Date Medicare National Govt Svcs Inc [address] [place] [address] [id number] Pablito Everett Self - patient is the insured 1 [employer] Blue Shield [address] [place] [address] [phone] [id number] Halton, Edward Self - patient is the insured Medical (General) History Medical History History ICD Code Headaches Psoriasis Measles Chicken pox Cholesterol Rheumatoid Arthritis Cataracts Heart disease High Blood Pressure thyroid COPD Surgical History Surgery Date(Month/Year) appendectomy Stent Thyroid Surgery Abdominal Stents 07/13
== END 2024-12-30 12:09 | disposition home or self-care (01) ==
LOC: HO.HMCH 11:01
PROVIDERS: PCP Internal Medicine; Visit Provider Internal Medicine
DX: Z13.9 Encounter for screening, unspecified (principal); N30.00 Acute cystitis without hematuria

== ENCOUNTER → 2024-12-30 11:00 | Outpatient (BNVA) | payer MEDICARE, SELFPAY ==
[2024-12-30 10:06] VITALS: BMI 32.0
== END ==
PROVIDERS: PCP Internal Medicine; Visit Provider Internal Medicine
DX: N30.00 Acute cystitis without hematuria (principal)
CPT/HCPCS: 81003; 99212

== ENCOUNTER 2025-01-25 10:36 | Outpatient (AMB) | payer MEDICARE, SELFPAY ==
[2025-01-25 10:42] VITALS: BP 128/62; PULSE 83; O2SAT 93; BMI 31.8
--- NOTE | 2025-01-25 10:42 | MHC.OFFVIS ---
Vital Signs 01/25/25 10:42 Height 5 ft 8 in Weight 209 lb BMI 31.8 BP 128/62 Blood Pressure Location Lt brachial Position Sitting Pulse 83 Pulse Source Pulse Oximeter Pulse Oximetry (%) 93 Oxygen Delivery Method Nasal Cannula Oxygen Flow Rate 2 Intake Visit Reasons: COPD Allergies Penicillins Allergy (Severe, Verified 01/25/25 10:48) Anaphylaxis hydrochlorothiazide Allergy (Unknown, Verified 01/25/25 10:48) Unknown lisinopril Allergy (Unknown, Verified 01/25/25 10:48) Unknown empagliflozin (From Jardiance) Adverse Reaction (Intermediate, Verified 01/25/25 10:48) UTI regadenoson (From Lexiscan) Adverse Reaction (Verified 01/25/25 10:48) Bradycardic HPI HPI COPD: Details: 79-year-old gentleman, former 100+ pack-year smoker, quit 2014, with prior history of left lower lobe nodule biopsy benign in etiology, also on Humira for underlying psoriatic arthritis, followed for COPD and abnormal CT chest that demonstrated bilateral ground-glass densities that have been waxing and waning with some underlying pulmonary fibrosis. He has been tried on prednisone with no symptomatic or radiologic response.? He has been using BrezTri with reasonable control of his symptoms.? He has been using supplemental oxygen at 2-3 L 24x7. He recently had left heart catheterization with stenting of RCA. His follow-up CT chest did not demonstrate additional nodules, but bilateral pleural effusions small to moderate. [facility] Medical History Atrial fibrillation with rapid ventricular response Supplemental oxygen dependent ILD (interstitial lung disease) COPD (chronic obstructive pulmonary disease) Tubular adenoma of colon (~2021) Postoperative hypothyroidism Obesity (BMI 30-39.9) Atrial fibrillation Chest discomfort Bronchitis Hemoptysis HOLLOWAY (dyspnea on exertion) Abnormal SPEP Multinodular thyroid Swelling of left lower extremity Pulmonary nodules/lesions, multiple Ground glass opacity present on imaging of lung Wedge compression fracture of T9 vertebra (~2018) Coronary artery disease Hypertension Right renal stone Thyroid nodule Vitamin D deficiency Ascending aorta dilatation Obesity (BMI 30-39.9) Psoriasis Hypercholesterolemia Former smoker Stable angina Surgical History Status post AAA (abdominal aortic aneurysm) repair Hx of bilateral cataract extraction (~2022) History of partial thyroidectomy (~2020) History of heart artery stent (~2019) History of colonoscopy History of cardioversion (~2020) History of appendectomy History of tonsillectomy History of lung biopsy (~2016) Family History Father Heart disease Mother Throat cancer Paternal Grandfather Heart disease Social History Household Members: Spouse Housing: House Are you a primary direct care specialist to a significant other at home: No Do you presently have visiting nurse or other home services: No Alcohol intake: former Year quit: 2014 Patient Tobacco Use Status: Former Tobacco user Tobacco use type: Cigarette Years Smoked: 50 e-Cigarette/Vaping Use: Former Use Second Hand Smoke Exposure: Yes Advance Directives Date on File: 09/21/20 service: Yes Current occupational status: retired Cognitive needs: No Hearing needs: No Vision needs: Yes (Glasses) Review of Systems Const Denies daytime sleepiness, Denies excessive sweating, Denies fatigue, Denies fever(s), Denies lethargy, Denies malaise, Denies night sweats, Denies snoring and Denies weight loss Eyes Denies blurry vision and Denies itchy eyes ENT Denies nasal congestion, Denies post nasal drip, Denies sinus pain, Denies sinus pressure and Denies other ( Thrush) Card Denies chest pain, Denies pedal edema, Denies dyspnea, Reports dyspnea on exertion, Denies orthopnea and Denies paroxysmal nocturnal dyspnea Resp Denies cough, Denies hemoptysis, Denies excessive phlegm production, Denies dyspnea, Reports dyspnea on exertion, Denies snoring and Denies wheezing GI Denies abdominal pain and Denies heartburn Musc Denies myalgias, Denies arthralgias and Denies joint swelling Skin/Breast Denies rash Neuro Denies memory loss and Denies seizure-like activity Psych Denies abnormal sleep pattern, Denies anxiety and Denies memory loss Endo Denies excessive sweating, Denies fatigue and Denies heat intolerance Zhou/Lymph Denies easy bruising Aller/Immun Denies itchy eyes, Denies seasonal rhinorrhea and Denies wheezing Physical Exam Vital Signs: Last Vital Signs Pulse 83 01/25/25 10:42 BP 128/62 01/25/25 10:42 Pulse Ox 93 01/25/25 10:42 Oxygen Delivery Method Nasal Cannula 01/25/25 10:42 Oxygen Flow Rate 2 01/25/25 10:42 BMI result Body Mass Index 31.8 Const General: no acute distress and alert Nutritional Appearance: not obese Orientation/consciousness: Other orientation findings ( oriented) HEENT Head: Yes atraumatic Eyes General: appearance normal, both eyes and all related structures Sclerae: sclerae normal EOM: EOMs intact bilaterally Neck Neck: Yes supple Lymphatic: no lymphadenopathy noted Resp Effort & Inspection: normal respiratory effort and no use of accessory muscles Auscultation: clear to auscultation bilaterally Cardio Rate: regular rate Rhythm: regular rhythm Heart sounds: no gallops, no murmurs and no rubs Skin General skin exam: other ( warm) Extrem General: No clubbing, No cyanosis and Yes edema (Trace bilateral) Assessment & Plan Assessment & Plan (1) COPD (chronic obstructive pulmonary disease): Code(s): J44.9 - Chronic obstructive pulmonary disease, unspecified Category: Medical Plan: Reasonable control on Breztri and albuterol MDI. Continue current regimen. (2) ILD (interstitial lung disease): Code(s): J84.9 - Interstitial pulmonary disease, unspecified Category: Medical Plan: Mild pulmonary fibrosis, continue to monitor clinically/radiologically. (3) Supplemental oxygen dependent: Code(s): Z99.81 - Dependence on supplemental oxygen Category: Medical Plan: Continue supplemental oxygen to maintain O2 saturation above 89%. (4) Pleural effusion: Code(s): J90 - Pleural effusion, not elsewhere classified Category: Medical Plan: Likely related to underlying fluid retention and diastolic dysfunction. Will repeat chest x-ray in several weeks, if worsening, will consider thoracentesis. Orders: Orders XR chest 2V 02/08/25 J90 - Pleural effusion, not elsewhere classified Coding Level of Care Code Est Pt Level 4 (34897) Complex EM visit Add On G2211 Diagnoses COPD (chronic obstructive pulmonary disease) J44.9 ILD (interstitial lung disease) J84.9 Supplemental oxygen dependent Z99.81 Pleural effusion J90
--- OUTSIDE RECORDS SUMMARY | 2025-01-25 12:38 | XMS_ITS | Patient Health Record ---
Author Organization [facility] Address [address] [place] [place] [address] Care Team Providers Care Noodle Maker Name Role Phone Oswaldo Delgado Primary Care Provider Buddy Russo Unavailable [phone] Allergies Allergen (clinical drug ingredient) Drug/Non Drug [...] Problem Acquired hammer toe of left foot (4428366999937562) Other hammer toe(s) (acquired), left foot (M20.42) Active confirmed Problem Bilateral atherosclerosis of arteries of lower limbs (disorder) (08846396361329251 ) Atherosclerosis of [place] artery of both lower extremities, with unspecified presence of clinical manifestation (I70.203) Active confirmed Q7(A), Q8(2B), Q9(1B,2 C) Problem Localized, primary osteoarthritis of the ankle and/or foot (431698638) Arthritis of joint of lesser toe, left (M19.072) Active confirmed Vital Signs Blood pressure diastolic 65 mm Hg 08/21/2024 Height 5ft 8in in 08/21/2024 Blood pressure systolic 130 mm Hg 08/21/2024 Weight 198 lbs 08/21/2024 BMI 30.1 kg/m2 08/21/2024 Encounters Encounter Location Date Provider Diagnosis [address] [address] 08/21/2024 Buddy Morin Atherosclerosis of [place] artery of both lower extremities, with unspecified presence of clinical manifestation I70.203 ; Other hammer toe(s) (acquired), left foot M20.42 ; Arthritis of joint of lesser toe, left M19.072 and Pain in toe of left foot M79.[address] [address] 09/10/2024 Buddy Morin [address] [address] 09/10/2024 Buddy Morin [facility] [address] [address] 11/18/2024 Buddy Morin Assessments Encounter Date Diagnosis (ICD Code) Assessment Notes Treatment Notes Treatment Clinical Notes Section Notes 08/21/2024 Other hammer toe(s) (acquired), left foot (ICD-10 - M20.42) 08/21/2024 Atherosclerosis of [place] artery of both lower extremities, with unspecified presence of clinical manifestation (ICD-10 - I70.203) Q7(A), Q8(2B), Q9(1B,2C) 08/21/2024 Arthritis of joint of lesser toe, left (ICD-10 - M19.072) 08/21/2024 Pain in toe of left foot (ICD-10 - M79.675) Plan Of Treatment Pending Test Test Name Order Date X ray : Foot, left 3V 08/21/2024 93312-Cnbp Destruction, -07/19/2017 77870-Avko Destruction, 05-0508/06/2017 05865-Gtnr Destruction, 05-0508/23/2017 63114-Kbkg Destruction, 05-0509/10/2017 22323-Bems Destruction, 05-0510/04/2017 92156-Rzzq Destruction, 05-0510/29/2017 80522-Fwyd Destruction, 05-0511/19/2017 52442-Gjge Destruction, 05-0511/29/2017 14999-Upor Destruction, 05-0512/06/2017 31467-Zwma Destruction, 05-0501/10/2018 Insurance Providers Payer Name Payer Address Payer Phone Subscriber Number Group Number Insured Name Patient Relationship to Insured Coverage Start Date Coverage End Date Medicare National Govt Svcs Inc [address] [place] [address] [id number] Pablito Everett Self - patient is the insured 1 [employer] Blue Shield [address] [place] [address] [phone] [id number] Hal[place], Edward Self - patient is the insured Medical (General) History Medical History History ICD Code Headaches Psoriasis Measles Chicken pox Cholesterol Rheumatoid Arthritis Cataracts Heart disease High Blood Pressure thyroid COPD Surgical History Surgery Date(Month/Year) appendectomy Stent Thyroid Surgery Abdominal Stents 07/13
--- OUTSIDE RECORDS SUMMARY | 2025-01-25 12:38 | XMS_ITS | Patient Health Record ---
Author Organization [facility] Address [address] [place] [address] Care Team Providers Care Currency Counter Name Role Phone Oswaldo Delgado MD Primary Care Provider Ever Colmenares [phone] Allergies Allergen (clinical drug ingredient) Drug/Non Drug [...] Problem Status W/U Status Risk Notes Problem [id number] Encounter for screening for malignant neoplasm of colon (Z12.11) Active confirmed Problem Diverticulosis of colon (688421710) Diverticulosis of colon (K57.30) Active confirmed Problem 18576193 Esophageal dysphagia (R13.19) Active confirmed Problem 792259001 detention curren t use of anticoagulant (Z79.01) Active confirmed Plan Of Treatment Pending Test Test Name Order Date XR BARIUM SWALLOW-ESOPHAGUS 05/23/2022 Future Test Test Name Order Date COLONOSCOPY 04/27/2021 Insurance Providers Payer Name Payer Address Payer Phone Subscriber Number Group Number Insured Name Patient Relationship to Insured Coverage Start Date Coverage End Date MEDICARE OF [place] [address] [place] [address] [id number] FAISAL ARELLANO Self - patient is the insured [employer] ATT[employer] CLAIMS [address] [place] [address] [id number] FAISAL ARELLANO Self - patient is the insured Medical (General) History Medical History History ICD Code Ascending aortic aneurysm COPD Coronary artery disease--DC and 2 stents in 2019-Dr. Jean-Baptiste Osteoporosis Psoriasis - on humira pulmonary nodule Renal stones Thyroid nodule Vitamin D deficiency Wedge compression fracture of T9 vertebr a Hypertension Afib Denies DM,CVA,renal disease Negative screening colonoscopy in 2007 Colonoscopy 05/2020 with a small tubular adenoma removed Surgical History Surgery Date(Month/Year) Appendectomy Tonsillectomy Lung biopsy 11/22/2016 Thyroid-benign
== END 2025-01-25 11:09 | disposition home or self-care (01) ==
LOC: HO.HPS 10:37
PROVIDERS: PCP Internal Medicine; Visit Provider Internal Medicine Pulmonary Disease
DX: J44.9 Chronic obstructive pulmonary disease, unspecified (principal); J84.9 Interstitial pulmonary disease, unspecified; Z99.81 Dependence on supplemental oxygen; J90 Pleural effusion, not elsewhere classified
CPT/HCPCS: 99214; G2211

== ENCOUNTER → 2025-01-25 10:36 | Outpatient (BNVA) | payer MEDICARE, SELFPAY ==
[2024-12-30 10:06] VITALS: BMI 32.0
== END ==
PROVIDERS: PCP Internal Medicine; Visit Provider Internal Medicine Pulmonary Disease
DX: J44.9 Chronic obstructive pulmonary disease, unspecified (principal); J84.9 Interstitial pulmonary disease, unspecified; Z99.81 Dependence on supplemental oxygen; J90 Pleural effusion, not elsewhere classified
CPT/HCPCS: 99212

== ENCOUNTER 2025-02-01 18:30 | Emergency (ER) | payer MEDICARE, SELFPAY ==
--- NOTE | ~2025-02-01 | XR_ITS ---
CLINICAL HISTORY: chest pain 2 view chest x-ray Comparison: CR - XR CHEST 2V - 07/24/24 18:39 EDT Findings: Mild right basilar atelectasis with small effusion. No pneumothorax. Similar prominent/enlarged cardiac silhouette. No acute fracture. IMPRESSION: Mild right basilar atelectasis with small effusion. This document has been electronically signed by: Mikey Ward MD on 02/01/2025 20:03:10
--- NOTE | 2025-02-01 18:31 | ECG_ITS ---
Test Reason : CP Blood Pressure : */* mmHG Vent. Rate : 80 BPM Atrial Rate : * BPM P-R Int : * ms QRS Dur : 88 ms QT Int : 350 ms P-R-T Axes : * 24 33 degrees QTcB Int : 403 ms Atrial fibrillation Abnormal ECG When compared with ECG of 24-Jul-2024 18:04, No significant change was found Referred By: Renetta Yen Electronically Signed By: Ja Jean-Baptiste
--- NOTE | 2025-02-01 18:37 | ED.GENADULT ---
HPI - General Adult General Chief complaint: Chest Pain Stated complaint: chest pain Time Seen by Provider: 02/01/25 18:47 History of Present Illness HPI narrative: Patient is 79-year-old male with a history of coronary artery disease status post stents in the past. History of COPD previously smokes quit about 10 years ago currently on 2 L of oxygen at home presents today with no changes in shortness of breath but having left-sided chest pain. Has a history of atrial fibrillation currently on Eliquis. Been compliant with medication. The chest pain is been dull. Her constant. Has been ongoing since 16:00. No fever no chills no coughing or congestion or upper respiratory symptoms no diaphoresis no bloody stool. Patient from home. Related Data Home Medications ?Medication ?Instructions ?Recorded ?Confirmed adalimumab 40 mg/0.4 mL 40 mg subcut Q2W 10/10/22 12/30/24 subcutaneous pen kit (Humira(CF) Pen) clopidogrel 75 mg tablet 75 mg PO DAILY 04/16/24 12/30/24 Previous Rx's ?Medication ?Instructions ?Recorded OXYGEN 2 L NC keep sats > 90 #1 ea 02/12/22 PORTABLE OXYGEN TANK #1 ea 02/22/22 compress.stocking,knee,reg,med #2 ea 04/10/22 levothyroxine 50 mcg tablet 50 mcg PO DAILY@0600 #90 tabs 03/24/24 diclofenac sodium 1 % topical gel 4 g topical QID #100 grams 05/18/24 (Arthritis Pain (diclofenac)) cholecalciferol (vitamin D3) 50 50 mcg PO DAILY #90 caps 06/01/24 mcg (2,000 unit) capsule digoxin 125 mcg (0.125 mg) tablet 125 mcg PO 3XW #36 tabs 06/04/24 atorvastatin 80 mg tablet 80 mg PO BEDTIME #90 tabs 06/24/24 cyanocobalamin (vitamin B-12) 1,000 mcg PO DAILY #90 tabs 07/15/24 1,000 mcg tablet (Vitamin B-12) diltiazem HCl 120 mg 120 mg PO DAILY #90 caps 07/20/24 capsule,extended release 24 hr metoprolol tartrate 50 mg tablet 50 mg PO BID 90 days #180 tabs 09/04/24 tamsulosin 0.4 mg capsule 0.8 mg (2 x 0.4 mg) PO DAILY #60 12/10/24 caps famotidine 20 mg tablet 20 mg PO BID 90 days #180 tabs 12/20/24 potassium chloride 10 mEq 10 meq PO BID #60 tabs 12/20/24 tablet,extended release (Klor-Con) budesonide 160 mcg-glycopyr 9 2 inh PO BID #10.7 ea 12/24/24 mcg-formot 4.8 mcg/actuation HFA inhaler (Breztri Aerosphere) ferrous sulfate 325 mg (65 mg 325 mg PO DAILY 90 days #90 tabs 12/26/24 iron) tablet,delayed release nitrofurantoin 100 mg PO BID 7 days #14 caps 12/30/24 monohydrate/macrocrystals 100 mg capsule (Macrobid) apixaban 5 mg tablet (Eliquis) 5 mg PO BID 90 days #180 tabs 01/07/25 furosemide 20 mg tablet 40 mg (2 x 20 mg) PO QAM 90 days 01/13/25 #180 tabs Allergies Allergy/AdvReac Type Severity Reaction Status Date / Time Penicillins Allergy Severe Anaphylaxis Verified 02/01/25 18:40 hydrochlorothiazide Allergy Unknown Unknown Verified 02/01/25 18:40 lisinopril Allergy Unknown Unknown Verified 02/01/25 18:40 empagliflozin (From AdvReac Intermediate UTI Verified 02/01/25 18:40 Jardiance) regadenoson (From Lexiscan) AdvReac Bradycardic Verified 02/01/25 18:40 Review of Systems Review of Systems: Positive chest pain Yes all other systems are reviewed and are negative [facility] Past Medical History Attestation statement: The following information was validated with the patient. Source: unable to obtain Medical History Atrial fibrillation with rapid ventricular response Supplemental oxygen dependent ILD (interstitial lung disease) COPD (chronic obstructive pulmonary disease) Tubular adenoma of colon (~2021) Postoperative hypothyroidism Obesity (BMI 30-39.9) Atrial fibrillation Chest discomfort Bronchitis Hemoptysis HOLLOWAY (dyspnea on exertion) Abnormal SPEP Multinodular thyroid Swelling of left lower extremity Pulmonary nodules/lesions, multiple Ground glass opacity present on imaging of lung Wedge compression fracture of T9 vertebra (~2018) Coronary artery disease Hypertension Right renal stone Thyroid nodule Vitamin D deficiency Ascending aorta dilatation Obesity (BMI 30-39.9) Psoriasis Hypercholesterolemia Former smoker Stable angina Surgical History Status post AAA (abdominal aortic aneurysm) repair Hx of bilateral cataract extraction (~2022) History of partial thyroidectomy (~2020) History of heart artery stent (~2019) History of colonoscopy History of cardioversion (~2020) History of appendectomy History of tonsillectomy History of lung biopsy (~2016) Family History Family History Father Heart disease Mother Throat cancer Paternal Grandfather Heart disease Social History Social History Household Members: Spouse Housing: House Are you a primary career services assistant to a significant other at home: No Do you presently have visiting nurse or other home services: No Alcohol intake: former Year quit: 2014 Patient Tobacco Use Status: Former Tobacco user Tobacco use type: Cigarette Years Smoked: 50 Smoked in Last 30 Days: No e-Cigarette/Vaping Use: Former Use Second Hand Smoke Exposure: Yes Use of substances other than those prescribed or required for medical reasons: No Advance Directives: Yes Advance Directives Information Provided: No Advance Directives on File: No Advance Directives Date on File: 09/21/20 Do you have a plan to hurt others: No Plan service: Yes Current occupational status: retired Cognitive needs: No Hearing needs: No Vision needs: Yes (Glasses) Physical Exam ED Exam Exam: Appearance: Alert. Oriented X3. No acute distress. Eyes: Pupils equal, round and reactive to light. ENT: Pharynx normal. Neck: Normal inspection. Neck supple. No lymph nodes noted. No crepitus CVS: Normal heart rate and rhythm. Pulses normal. Normal S1 and S2 Respiratory: No respiratory distress. Breath sounds normal. No Wheezing. No rales Abdomen: Soft and nontender. No rigidity. No distention. good BS x4 Skin: Skin warm and dry. Normal skin color. Normal skin turgor. Extremities: No lower extremity edema. Neurovascular intact to all extremities. No Lacerations. No Rash Neuro: Oriented X 3. No motor deficit. No sensory deficit. Moving all extermities. No slurred speech Vital Signs: Vital Signs - 24 hr 02/01/25 18:38 Temperature 97.7 F Pulse Rate 88 Respiratory Rate 22 H Blood Pressure 153/75 H Pulse Oximetry 95 Oxygen Delivery Method Nasal Cannula BMI result Body Mass Index 30.8 Course Course Course Narrative: Rapid medical examination performed in triage by Renetta Yen PA-C. Patient is a 79 year old assigned male at presenting to the emergency department with left sided armpit / chest pain. Detailed physical exam and review of systems are deferred to the hard hat diver. EKG, labs, imaging ordered. Patient placed back in the waiting room pending room availability and results. Medical Decision Making Medical Decision Making [facility] Narrative: Patient's chest pain atypical. It is over the left mid axillary area. Fairly constant. Not associated with any new shortness of breath not associated with any diaphoresis chronically on home O2. History of COPD. History of coronary artery disease. History of diabetes. Two sets of cardiac enzymes are negative. Patient is on Eliquis. Unlikely to have a PE. His EKG shows an atrial fibrillation pattern heart rate is 80 there is no acute ST segment elevation. My interpretation patient's chest x-ray showed no acute pneumonia no pneumothorax. In the setting of no changes in EKG no changes in troponin patient is 79 does have proven coronary disease joint decision was made with patient at discharge patient home close follow-up advised. His medical history includes chronic AFib, COPD requiring supplemental oxygen, hypertension, coronary artery disease s/p RCA PCI, and chronic diastolic heart failure. Differential Diagnosis Differential Diagnoses: The differential diagnosis associated with the presentation includes Pneumonia, pneumothorax, ACS, PE, rib fracture Admission/Observation Consideration of admission/observation: Escalation of care including admission/observation considered Lab Data [facility] Lab Attestation statement: I reviewed the patient's lab results. 02/01/25 18:47 02/01/25 18:47 Labs: Lab Results 02/01/25 02/01/25 02/01/25 Range/Units 18:47 18:52 20:59 WBC 7.9 (4.8-10.8) X10*3/uL RBC 3.40 L (4.60-5.80) X10*6/uL Hgb 11.7 L (14.0-18.0) g/dl Hct 36.1 L (42.0-52.0) % MCV 106.2 H (80.0-98.0) fL MCH 34.4 H (27.0-33.0) pg MCHC 32.4 (31.0-36.0) g/dl RDW 14.4 (11.0-16.0) % Plt Count 168 (160-400) X10*3/uL MPV 9.7 (9.4-12.4) fL Immature Gran % (Auto) 0.5 H (0.0-0.4) % Neut % (Auto) 74.2 H (45-73) % Lymph % (Auto) 14.3 L (20-40) % Ogle % (Auto) 9.6 (2-11) % Eos % (Auto) 1.3 (0-4) % Baso % (Auto) 0.1 (0-2) % Lymph # (Auto) 1.1 L (1.2-4.9) X10*3/uL Ogle # (Auto) 0.8 (0.1-1.2) X10*3/uL Eos # (Auto) 0.1 (0.0-0.4) X10*3/uL Baso # (Auto) 0.0 (0.0-0.2) X10*3/uL Abs Immat Gran (auto) 0.04 H (0.00-0.03) X10*3/uL Absolute Neuts (auto) 5.8 (2.0-8.3) x10*3/uL Absolute Nucleated RBC 0.000 (0.0-0.012) X10*3/uL Nucleated RBC % (auto) 0.0 (0.0-0.2) /100WBC VBG pH 7.40 (7.32-7.43) VBG pCO2 51 mmHg VBG pO2 42 mmHg VBG HCO3 32 H (22-26) mmol/L VBG O2 Saturation 58.0 % VBG Base Excess 6.6 mmol/L Sodium 145 (135-145) mmol/L Potassium 4.1 (3.3-5.1) mmol/L Chloride 107 (96-108) mmol/L Carbon Dioxide 30 H (22-29) mmol/L Anion Gap 12 (12-20) BUN 28 H (9-16) mg/dL Creatinine 0.98 (0.5-1.4) mg/dL Estim Creat Clear Calc 69.3 Estimated GFR > 60 Random Glucose 121 H (60-115) mg/dL Calcium 9.0 (8.4-10.2) mg/dL Magnesium 2.1 (1.6-2.6) mg/dL Total Bilirubin 0.7 (0.0-1.0) mg/dL AST 24 (5-37) U/L ALT 24 (0-40) U/L Alkaline Phosphatase 145 H (39-117) U/L Troponin I High Sens 2.8 3.6 (<3.5-35.0) ng/L NT-Pro-B Natriuret Pep 1070.2 H (<300) pg/mL Total Protein 7.6 (6.5-8.0) g/dL Albumin 4.1 (3.5-5.0) g/dL COVID-19 (NASEEM) Negative (Negative) COVID-19 Clin Com See Note Influenza Type A (ANDREE) Negative (Negative) Influenza Type B (ANDREE) Negative (Negative) Influenza A & B Note See Note Independent Interpretation I performed an independent interpretation of an: EKG (Atrial fibrillation heart rate is 80 there is no acute ST segment elevation) and Plain X-Ray (Chest x-ray negative for pneumonia pneumothorax) Radiology Impression Discussion of test interpretation with radiology: I have reviewed the radiologist's reading. External Record Review External record reviewed: Inpatient record Social Determinants Patient?s care significantly limited by Social Determinants of Health including: Problems related to primary support group Discharge Plan Discharge Clinical Impression: Chest pain Patient Disposition: Home, Self-Care Instructions: Chest Pain (ED) Prescriptions: No Action (DME) OXYGEN 2 L NC keep sats > 90 See Rx Instructions .Route .MEDSUPPLY Qty: 1 0RF Rx Instructions: As directed (DME) PORTABLE OXYGEN TANK See Rx Instructions .Route .MEDSUPPLY Qty: 1 0RF Rx Instructions: As directed levothyroxine 50 mcg tablet 50 mcg PO DAILY@0600 Qty: 90 2RF cholecalciferol (vitamin D3) 50 mcg (2,000 unit) capsule 50 mcg PO DAILY Qty: 90 3RF digoxin 125 mcg (0.125 mg) tablet 125 mcg PO 3XW Qty: 36 4RF atorvastatin 80 mg tablet 80 mg PO BEDTIME Qty: 90 2RF diltiazem HCl 120 mg capsule,extended release 24hr 120 mg PO DAILY Qty: 90 3RF tamsulosin 0.4 mg capsule 0.8 mg PO DAILY Qty: 60 3RF famotidine 20 mg tablet 20 mg PO BID 90 Days Qty: 180 1RF potassium chloride [Klor-Con 10] 10 mEq tablet extended release 10 meq PO BID Qty: 60 3RF Breztri Aerosphere 160-9-4.8 mcg/actuation HFA aerosol inhaler 2 inh PO BID Qty: 10.7 6RF ferrous sulfate 325 mg (65 mg iron) tablet,delayed release (DR/EC) 325 mg PO DAILY 90 Days Qty: 90 1RF Eliquis 5 mg tablet 5 mg PO BID 90 Days Qty: 180 3RF furosemide 20 mg tablet 40 mg PO QAM 90 Days Qty: 180 3RF Rx Instructions: Please remove text: Take 1 tablet my mouth in the afternoon. (DME) compress.stocking,knee,reg,med Misc See Rx Instructions .Route Qty: 2 0RF Rx Instructions: As directed 20-30 mm HG Humira(CF) Pen 40 mg/0.4 mL pen injector kit 40 mg subcut Q2W Rx Instructions: Every 2 weeks on SA or TOLBERT clopidogrel 75 mg tablet 75 mg PO DAILY Rx Instructions: Take 4 tablets today and start taking 1 tablet daily from tomorrow. 02/2024 nitrofurantoin monohyd/m-cryst [Macrobid] 100 mg capsule 100 mg PO BID 7 Days Qty: 14 0RF Rx Instructions: must administer with a meal/food cyanocobalamin (vitamin B-12) [Vitamin B-12] 1,000 mcg tablet 1,000 mcg PO DAILY Qty: 90 3RF diclofenac sodium [Arthritis Pain (diclofenac)] 1 % gel 4 g topical QID Qty: 100 3RF Rx Instructions: apply to single knee, ankle, foot; for foot includes sole/toes/top of foot metoprolol tartrate 50 mg tablet 50 mg PO BID 90 Days Qty: 180 3RF Rx Instructions: Take 1 tablet twice daily Referrals: Po,Oswaldo Deng MD [Primary Care Provider, Internal Medicine] - 02/03/25 aJ Jean-Baptiste MD [Physician, Cardiology] - 02/03/25 Print Language: Indian
[2025-02-01 18:38] VITALS: BP 153/75; PULSE 88; RESP 22; TEMP 36.5; O2SAT 95; BMI 30.8
[2025-02-01 18:53] LABS: MANUAL DIFF FLAG NO
[2025-02-01 18:55] LABS: Venous Blood Gas Refer to POC result
[2025-02-01 18:56] LABS: VBG HCO3 32 mmol/L (22-26); VBG O2 % Saturation 58.0 %
[2025-02-01 18:59] LABS: Hematocrit 36.1 % (42.0-52.0); Hemoglobin 11.7 g/dl (14.0-18.0); Imm Gran Abs Auto 0.04 X10*3/uL (0.00-0.03); Imm Gran Pct Auto 0.5 % (0.0-0.4); Lymphocytes Absolute Auto 1.1 X10*3/uL (1.2-4.9); Mean Corpuscular HGB Conc 32.4 g/dl (31.0-36.0); Mean Corpuscular Hemoglobin 34.4 pg (27.0-33.0); Mean Corpuscular Volume 106.2 fL (80.0-98.0); NRBC Abs Auto 0.000 X10*3/uL (0.0-0.012); NRBC Pct Auto 0.0 /100WBC (0.0-0.2); Platelet Count 168 X10*3/uL (160-400); Red Blood Count 3.40 X10*6/uL (4.60-5.80); White Blood Count 7.9 X10*3/uL (4.8-10.8)
[2025-02-01 19:09] LABS: Alanine Aminotransferase 24 U/L (0-40); Albumin Level 4.1 g/dL (3.5-5.0); Alkaline Phosphatase 145 U/L (39-117); Anion Gap 12 (12-20); Aspartate Amino Transferase 24 U/L (5-37); Blood Urea Nitrogen 28 mg/dL (9-16); Calcium 9.0 mg/dL (8.4-10.2); Carbon Dioxide 30 mmol/L (22-29); Chloride 107 mmol/L (96-108); Creatinine Clr Calc Pharmacy 69.3; Estimated Glomerular Filt Rate > 60; Magnesium 2.1 mg/dL (1.6-2.6); Potassium 4.1 mmol/L (3.3-5.1); Sodium 145 mmol/L (135-145); Total Protein 7.6 g/dL (6.5-8.0)
[2025-02-01 19:10] LABS: COVID-19 Test Negative (Negative); IDNOW Serial# 55D5AD1C; IDNOW Serial# 58CA691E; Influenza B2 Negative (Negative)
--- OUTSIDE RECORDS SUMMARY | 2025-02-01 19:12 | XMS_ITS | Patient Health Record ---
Author Organization [facility] Address [address] [place] [address] Care Team Providers Care Pulp Grinder Feeder Name Role Phone Oswaldo Delgado Primary Care Provider Buddy Russo Unavailable [phone] Allergies Allergen (clinical drug ingredient) Drug/Non Drug [...] Problem Acquired hammer toe of left foot (2379790786279510) Other hammer toe(s) (acquired), left foot (M20.42) Active confirmed Problem Bilateral atherosclerosis of arteries of lower limbs (disorder) (10711062930087885 ) Atherosclerosis of douglas artery of both lower extremities, with unspecified presence of clinical manifestation (I70.203) Active confirmed Q7(A), Q8(2B), Q9(1B,2 C) Problem Localized, primary osteoarthritis of the ankle and/or foot (866541325) Arthritis of joint of lesser toe, left (M19.072) Active confirmed Vital Signs Blood pressure diastolic 65 mm Hg 08/21/2024 Height 5ft 8in in 08/21/2024 Blood pressure systolic 130 mm Hg 08/21/2024 Weight 198 lbs 08/21/2024 BMI 30.1 kg/m2 08/21/2024 Encounters Encounter Location Date Provider Diagnosis [address] [address] 08/21/2024 Buddy Morin Atherosclerosis of douglas artery of both lower extremities, with unspecified presence of clinical manifestation I70.203 ; Other hammer toe(s) (acquired), left foot M20.42 ; Arthritis of joint of lesser toe, left M19.072 and Pain in toe of left foot M79.[address] [address] 09/10/2024 Buddy Morin [address] [place] [address] 09/10/2024 Buddy Morin [facility] [address] [address] 11/18/2024 Buddy Morin Assessments Encounter Date Diagnosis (ICD Code) Assessment Notes Treatment Notes Treatment Clinical Notes Section Notes 08/21/2024 Other hammer toe(s) (acquired), left foot (ICD-10 - M20.42) 08/21/2024 Atherosclerosis of douglas artery of both lower extremities, with unspecified presence of clinical manifestation (ICD-10 - I70.203) Q7(A), Q8(2B), Q9(1B,2C) 08/21/2024 Arthritis of joint of lesser toe, left (ICD-10 - M19.072) 08/21/2024 Pain in toe of left foot (ICD-10 - M79.675) Plan Of Treatment Pending Test Test Name Order Date X ray : Foot, left 3V 08/21/2024 54364-Mygj Destruction, -07/19/2017 76513-Kbja Destruction, 05-0508/06/2017 00611-Cbnw Destruction, 05-0508/23/2017 17904-Fjsm Destruction, 05-0509/10/2017 98327-Nkwv Destruction, 05-0510/04/2017 48167-Flek Destruction, 05-0510/29/2017 46137-Qcrv Destruction, 05-0511/19/2017 86401-Bkig Destruction, 05-0511/29/2017 95054-Qzdb Destruction, 05-0512/06/2017 89500-Odaj Destruction, 05-0501/10/2018 Insurance Providers Payer Name Payer Address Payer Phone Subscriber Number Group Number Insured Name Patient Relationship to Insured Coverage Start Date Coverage End Date Medicare National Govt Svcs Inc [address] [place] [address] [id number] Pablito Everett Self - patient is the insured 1 [employer] Blue Shield [address] [place] [address] [id number] Halton, Edward Self - patient is the insured Medical (General) History Medical History History ICD Code Headaches Psoriasis Measles Chicken pox Cholesterol Rheumatoid Arthritis Cataracts Heart disease High Blood Pressure thyroid COPD Surgical History Surgery Date(Month/Year) appendectomy Stent Thyroid Surgery Abdominal Stents 07/13
--- OUTSIDE RECORDS SUMMARY | 2025-02-01 19:12 | XMS_ITS | Patient Health Record ---
Author Organization [facility] Address [address] [place] [address] Care Team Providers Care Exterminator Helper Termite Name Role Phone Oswaldo Delgado MD Primary Care Provider Ever Colmenares [phone] Allergies Allergen (clinical drug ingredient) Drug/Non Drug Allergy documented on EMR Reaction Allergy Type Onset Date Status Penicillin Unknown Drug Allergy Active lisinopril Lisinopril Unknown Drug Allergy Activ e hydrochlorothiazide Hydrochlorothiazide Unknown Drug Aller gy Active Reason For Referral No Information Medications Medication SIG (Take, Route, Frequency, Duration) Notes Start Date End Date Status Atorvastatin Calcium 80 MG Oral; Duration: 90 Active CVS Vitamin B12 1000 MCG Oral; Duration: 90 Active Humira Pen 40 MG/0.4ML Subcutaneous; Dur ation: 28 Active Eliquis 5 MG Oral; Duration: 30 Active Metoprolol Tartrate 25 MG Oral; Duration: 90 Active Symbicort 160-4.5 MCG/ACT Inhalation; Duration: 90 Active dilTIAZem HCl ER Coated Beads 300 MG Oral; Duration: 90 Active Clopidogrel Bisulfate 75 MG Oral; Duration: 90 Active Levothyroxine Sodium 50 MCG Oral; Duration: 90 Active Betamethasone Dipropionate Aug 0.05 % External; Duration: 15 Activ e Breztri Aerosphere 160-9-4.8 MCG/ACT Inhalation; Duration: 30 Act katheryn Immunizations Vaccine Route Administration Date Status Comme [...] Notes: Quit smoking and ETOH Jun 11 Quit smoking and ETOH Jun 11 Problems Problem Type SNOMED Code ICD Code Onset Dates Problem Status W/U Status Risk Notes Problem Screening for malignant neoplasm of colon (640410711) Encounter for screening for malignant neoplasm of colon (Z12.11) Active confirmed Problem Diverticulosis of colon (058926861) Diverticulosis of colon (K57.30) Active confirmed Problem Esophageal dysphagia (70380059) Esophageal dysphagia (R13.19) Active confirmed Problem 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 (923063902) intermediate current use of anticoagulant (Z79.01) Active confirmed Plan Of Treatment Pending Test Test Name Order Date XR BARIUM SWALLOW-ESOPHAGUS 05/23/2022 Future Test Test Name Order Date COLONOSCOPY 04/27/2021 Insurance Providers Payer Name Payer Address Payer Phone Subscriber Number Group Number Insured Name Patient Relationship to Insured Coverage Start Date Coverage End Date MEDICARE OF [place] [address] [facility] [place] [address] [phone] [id number] FAISAL ARELLANO Self - patient is the insured MED[employer] ATT[employer] CLAIMS [address] [place] [address] [id number] FAISAL ARELLANO Self - patient is the [...]
[2025-02-01 19:16] LABS: NT Pro B Type Natriuretic Pept 1070.2 pg/mL (<300); Troponin-I High Sensitivity 2.8 ng/L (<3.5-35.0)
[2025-02-01 20:56] VITALS: PULSE 75
[2025-02-01 21:24] LABS: Troponin-I High Sensitivity 3.6 ng/L (<3.5-35.0)
--- NOTE | 2025-02-01 21:24 | PC.NURSE ---
Assumed care of pt, found AOx4 in fowlers position on his bed AOx4, pt reported substernal chest pain radiating to epigastric area, pt reports the pain is mild 3/10 and onset at 1600 today after dinner. IV placed in right FA 20g.
[2025-02-01 22:44] VITALS: BP 138/89; PULSE 94; RESP 20; TEMP 36.6; O2SAT 95
== END 2025-02-01 22:45 | disposition home or self-care (01) ==
PROVIDERS: Physician Assistant Medical; Emergency Provider Emergency Medicine Emergency Medical Services; PCP Internal Medicine
DX: R07.9 Chest pain, unspecified (principal); I25.10 Atherosclerotic heart disease of native coronary artery without angina pectoris; I48.20 Chronic atrial fibrillation, unspecified; I11.0 Hypertensive heart disease with heart failure; I50.30 Unspecified diastolic (congestive) heart failure; E11.9 Type 2 diabetes mellitus without complications; J44.9 Chronic obstructive pulmonary disease, unspecified; R06.02 Shortness of breath; Z87.891 Personal history of nicotine dependence; Z79.01 Long term (current) use of anticoagulants; Z11.52 Encounter for screening for COVID-19; Z95.5 Presence of coronary angioplasty implant and graft; Z99.81 Dependence on supplemental oxygen; Z88.0 Allergy status to penicillin; Z88.8 Allergy status to other drugs, medicaments and biological substances
CPT/HCPCS: 36415; 71046; 80053; 82803; 83735; 83880; 84484; 85025; 87502; 87635; 93005; 99283; 99285

== ENCOUNTER → 2025-02-01 18:31 | Outpatient (BNV) | payer MEDICARE, SELFPAY | PROVIDERS: Emergency Provider Emergency Medicine Emergency Medical Services; PCP Internal Medicine; Visit Provider Internal Medicine Cardiovascular Disease | DX: I48.91 Unspecified atrial fibrillation (principal) | CPT/HCPCS: 93010 ==

== ENCOUNTER → 2025-02-01 18:40 | Outpatient (BNV) | payer MEDICARE, SELFPAY | PROVIDERS: Emergency Provider Emergency Medicine Emergency Medical Services; PCP Internal Medicine; Visit Provider Radiology Diagnostic Radiology | DX: J98.11 Atelectasis (principal) | CPT/HCPCS: 71046 ==

== ENCOUNTER 2025-02-15 10:23 | Outpatient (REF) | payer MEDICARE, SELFPAY ==
--- NOTE | ~2025-02-15 | XR_ITS ---
EXAMINATION: XR CHEST CLINICAL INFORMATION: J90 - Pleural effusion, not elsewhere classified COMPARISON: X-ray 02/01/2025 TECHNIQUE: 2 views of the chest were obtained. FINDINGS: Prominence of the cardiomediastinal silhouette, similar to previous. Low lung volumes. Right basilar patchy opacities, increased from previous. Small right pleural effusion. No pneumothorax seen. Thoracic spine degeneration. XR/XR chest 2V IMPRESSION: Right basilar patchy opacities, increased from previous, could reflect inflammatory or infectious process. Small right pleural effusion. Electronically signed by: Graham Smith MD 02/15/2025 11:05 AM EDT
--- OUTSIDE RECORDS SUMMARY | 2025-02-15 12:35 | XMS_ITS | Patient Health Record ---
Author Organization [facility] Address [address] [place] [address] Care Team Providers Care Scroll Saw Operator Name Role Phone Oswaldo Delgado Primary Care Provider Buddy Russo Unavailable [phone] Allergies Allergen (clinical drug ingredient) Drug/Non Drug [...] Problem Acquired hammer toe of left foot (3855331401977222) Other hammer toe(s) (acquired), left foot (M20.42) Active confirmed Problem Bilateral atherosclerosis of arteries of lower limbs (disorder) (52204453215770838 ) Atherosclerosis of [place] artery of both lower extremities, with unspecified presence of clinical manifestation (I70.203) Active confirmed Q7(A), Q8(2B), Q9(1B,2 C) Problem Localized, primary osteoarthritis of the ankle and/or foot (375695643) Arthritis of joint of lesser toe, left (M19.072) Active confirmed Vital Signs Blood pressure diastolic 65 mm Hg 08/21/2024 Height 5ft 8in in 08/21/2024 Blood pressure systolic 130 mm Hg 08/21/2024 Weight 198 lbs 08/21/2024 BMI 30.1 kg/m2 08/21/2024 Encounters Encounter Location Date Provider Diagnosis [address] [address] 08/21/2024 Buddy Morin Atherosclerosis of [place] artery of both lower extremities, with unspecified presence of clinical manifestation I70.203 ; Other hammer toe(s) (acquired), left foot M20.42 ; Arthritis of joint of lesser toe, left M19.072 and Pain in toe of left foot M79.[address] [address] 09/10/2024 Buddy Morin [address] [place] [address] 09/10/2024 Buddy Morin [facility] [address] [address] 11/18/2024 Buddy Morin Assessments Encounter Date Diagnosis (ICD Code) Assessment Notes Treatment Notes Treatment Clinical Notes Section Notes 08/21/2024 Other hammer toe(s) (acquired), left foot (ICD-10 - M20.42) 08/21/2024 Atherosclerosis of [place] artery of both lower extremities, with unspecified presence of clinical manifestation (ICD-10 - I70.203) Q7(A), Q8(2B), Q9(1B,2C) 08/21/2024 Arthritis of joint of lesser toe, left (ICD-10 - M19.072) 08/21/2024 Pain in toe of left foot (ICD-10 - M79.675) Plan Of Treatment Pending Test Test Name Order Date X ray : Foot, left 3V 08/21/2024 04227-Qbne Destruction, -07/19/2017 38459-Xmhl Destruction, 05-0508/06/2017 06624-Elma Destruction, 05-0508/23/2017 65584-Nylp Destruction, 05-0509/10/2017 42999-Tgor Destruction, 05-0510/04/2017 11230-Kauj Destruction, 05-0510/29/2017 75864-Gavv Destruction, 05-0511/19/2017 92461-Qmwf Destruction, 05-0511/29/2017 84319-Xwjk Destruction, 05-0512/06/2017 54852-Pimh Destruction, 05-0501/10/2018 Insurance Providers Payer Name Payer Address Payer Phone Subscriber Number Group Number Insured Name Patient Relationship to Insured Coverage Start Date Coverage End Date Medicare National Govt Svcs Inc [address] [place] [address] [id number] Pablito Everett Self - patient is the insured 1 [employer] Blue Shield [address] [place] [address] [id number] Halton, Edward Self - patient is the insured Medical (General) History Medical History History ICD Code Headaches Psoriasis Measles Chicken pox Cholesterol Rheumatoid Arthritis Cataracts Heart disease High Blood Pressure thyroid COPD Surgical History Surgery Date(Month/Year) appendectomy Stent Thyroid Surgery Abdominal Stents 07/13
--- OUTSIDE RECORDS SUMMARY | 2025-02-15 12:35 | XMS_ITS | Patient Health Record ---
Author Organization [facility] Address [address] [place] [address] Care Team Providers Care Manager Action Name Role Phone Oswaldo Delgado MD Primary Care Provider Ever Colmenares [phone] Allergies Allergen (clinical drug ingredient) Drug/Non Drug [...] Problem Screening for malignant neoplasm of colon (895111521) Encounter for screening for malignant neoplasm of colon (Z12.11) Active confirmed Problem Diverticulosis of colon (916794466) Diverticulosis of colon (K57.30) Active confirmed Problem Esophageal dysphagia (71097630) Esophageal dysphagia (R13.19) Active confirmed Problem 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 (285358379) jail current use of anticoagulant (Z79.01) Active confirmed Plan Of Treatment Pending Test Test Name Order Date XR BARIUM SWALLOW-ESOPHAGUS 05/23/2022 Future Test Test Name Order Date COLONOSCOPY 04/27/2021 Insurance Providers Payer Name Payer Address Payer Phone Subscriber Number Group Number Insured Name Patient Relationship to Insured Coverage Start Date Coverage End Date MEDICARE OF [place] [address] [place] [address] [id number] FAISAL ARELLANO Self - patient is the insured MEDEX ATTN CLAIMS [address] [place] [address] [phone] [id number] FAISAL ARELLANO Self - patient is the insured Medical (General) History Medical History History ICD Code Ascending aortic aneurysm COPD Coronary artery disease--[place] and 2 stents in 2019-Dr. Jean-Baptiste Osteoporosis Psoriasis - on humira pulmonary nodule Renal stones Thyroid nodule Vitamin D deficiency Wedge compression fracture of T9 vertebr a Hypertension Afib Denies DM,CVA,renal disease Negative screening colonoscopy in 2007 Colonoscopy 05/2020 with a small tubular adenoma removed Surgical History Surgery Date(Month/Year) Appendectomy Tonsillectomy Lung biopsy 11/22/2016 Thyroid-benign
== END 2025-02-15 10:24 | disposition home or self-care (01) ==
LOC: HO.HMGCX 10:23
PROVIDERS: PCP Internal Medicine; Visit Provider Internal Medicine Pulmonary Disease
DX: J90 Pleural effusion, not elsewhere classified (principal)
CPT/HCPCS: 71046

== ENCOUNTER → 2025-02-15 10:26 | Outpatient (BNV) | payer MEDICARE, SELFPAY | PROVIDERS: PCP Internal Medicine; Visit Provider Radiology Diagnostic Ultrasound | DX: J90 Pleural effusion, not elsewhere classified (principal); R91.8 Other nonspecific abnormal finding of lung field | CPT/HCPCS: 71046 ==

== ENCOUNTER 2025-02-23 06:01 | Outpatient (REF) | payer MEDICARE, SELFPAY ==
--- OUTSIDE RECORDS SUMMARY | 2025-02-23 06:05 | XMS_ITS | Patient Health Record ---
Author Organization [facility] Address [address] [place] [address] Care Team Providers Care Insurance Examining Clerk Name Role Phone Oswaldo Delgado Primary Care Provider Buddy Russo Unavailable [phone] Allergies Allergen (clinical drug ingredient) Drug/Non Drug [...] Problem Acquired hammer toe of left foot (2210670464279332) Other hammer toe(s) (acquired), left foot (M20.42) Active confirmed Problem Bilateral atherosclerosis of arteries of lower limbs (disorder) (82417440431722355 ) Atherosclerosis of rampart artery of both lower extremities, with unspecified presence of clinical manifestation (I70.203) Active confirmed Q7(A), Q8(2B), Q9(1B,2 C) Problem Localized, primary osteoarthritis of the ankle and/or foot (553565812) Arthritis of joint of lesser toe, left (M19.072) Active confirmed Vital Signs Blood pressure diastolic 65 mm Hg 08/21/2024 Height 5ft 8in in 08/21/2024 Blood pressure systolic 130 mm Hg 08/21/2024 Weight 198 lbs 08/21/2024 BMI 30.1 kg/m2 08/21/2024 Encounters Encounter Location Date Provider Diagnosis [address] [address] 08/21/2024 Buddy Morin Atherosclerosis of rampart artery of both lower extremities, with unspecified presence of clinical manifestation I70.203 ; Other hammer toe(s) (acquired), left foot M20.42 ; Arthritis of joint of lesser toe, left M19.072 and Pain in toe of left foot M79.[address] [address] 09/10/2024 Buddy Morin [address] [place] [address] 09/10/2024 Buddy Morin [facility] [address] [address] 11/18/2024 Buddy Morin Assessments Encounter Date Diagnosis (ICD Code) Assessment Notes Treatment Notes Treatment Clinical Notes Section Notes 08/21/2024 Other hammer toe(s) (acquired), left foot (ICD-10 - M20.42) 08/21/2024 Atherosclerosis of rampart artery of both lower extremities, with unspecified presence of clinical manifestation (ICD-10 - I70.203) Q7(A), Q8(2B), Q9(1B,2C) 08/21/2024 Arthritis of joint of lesser toe, left (ICD-10 - M19.072) 08/21/2024 Pain in toe of left foot (ICD-10 - M79.675) Plan Of Treatment Pending Test Test Name Order Date X ray : Foot, left 3V 08/21/2024 54039-Wnhy Destruction, -07/19/2017 55335-Cqps Destruction, 05-0508/06/2017 22035-Vpdl Destruction, 05-0508/23/2017 60209-Rnyt Destruction, 05-0509/10/2017 72056-Berl Destruction, 05-0510/04/2017 32619-Dnlg Destruction, 05-0510/29/2017 97619-Gjys Destruction, 05-0511/19/2017 26269-Gntn Destruction, 05-0511/29/2017 48344-Fxrq Destruction, 05-0512/06/2017 96815-Xrxn Destruction, 05-0501/10/2018 Insurance Providers Payer Name Payer Address Payer Phone Subscriber Number Group Number Insured Name Patient Relationship to Insured Coverage Start Date Coverage End Date Medicare National Govt Svcs Inc [address] [place] [address] [id number] Pablito Everett Self - patient is the insured 1 Medex Blue Shield [address] [place] [address] [id number] Halton, Edward Self - patient is the insured Medical (General) History Medical History History ICD Code Headaches Psoriasis Measles Chicken pox Cholesterol Rheumatoid Arthritis Cataracts Heart disease High Blood Pressure thyroid COPD Surgical History Surgery Date(Month/Year) appendectomy Stent Thyroid Surgery Abdominal Stents 07/13
--- OUTSIDE RECORDS SUMMARY | 2025-02-23 06:05 | XMS_ITS | Patient Health Record ---
Author Organization [facility] Address [address] [place] [address] Care Team Providers Care School Bus Driver Name Role Phone Oswaldo Delgado MD Primary Care Provider Ever Colmenares [phone] Allergies Allergen (clinical drug ingredient) Drug/Non Drug [...] Problem Screening for malignant neoplasm of colon (453934164) Encounter for screening for malignant neoplasm of colon (Z12.11) Active confirmed Problem Diverticulosis of colon (467122413) Diverticulosis of colon (K57.30) Active confirmed Problem Esophageal dysphagia (96727057) Esophageal dysphagia (R13.19) Active confirmed Problem 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 (758588238) senior living current use of anticoagulant (Z79.01) Active confirmed Plan Of Treatment Pending Test Test Name Order Date XR BARIUM SWALLOW-ESOPHAGUS 05/23/2022 Future Test Test Name Order Date COLONOSCOPY 04/27/2021 Insurance Providers Payer Name Payer Address Payer Phone Subscriber Number Group Number Insured Name Patient Relationship to Insured Coverage Start Date Coverage End Date MEDICARE OF [place] [address] [place] [address] [id number] FAISAL ARELLANO Self - patient is the insured MEDEX ATTN CLAIMS [address] [place] [address] [id number] FAISAL ARELLANO Self - patient is the [...]
--- OUTSIDE RECORDS SUMMARY | 2025-02-23 06:05 | XMS_ITS | Data Portability ---
Author Organization [facility], [address] Address [address] [place] [address] Assessment No assessment recorded. Plan of Treatment [...] By Organization Details Last Modified Time 05/18/2022 [id number] cuts: care instructions [email or web address] Not available 05/18/2022 [...] Address Organization Details Recorded Time Atrial fibrillation 00224943 Active 2022 Malika Gilmore null, PA - [facility] 3 13:50:16 Chronic obstructive pulmonary disease 12471022 Active 2022 Malika Shana null, PA - [facility] 3 13:50:20 Hypertensive disorder 57420783 Active 2022 Malika Gilmore null, PA - [facility] 3 13:50:27 Hyperlipidemia 50022820 Active 2022 Malika Gilmore null, PA - [facility] 3 13:50:33 Problem Notes None recorded. Medical Equipment None Reported. Allergies Allergen ID Allergen Name Allergen Category Reaction Reaction Severity Criticality Documentation Date Start Date Code Code System Note Provider Name and Address Organization Details Recorded Time 126407 Product containin g penicilli n (product) medicatio n anaphylax is Not available high 05/18/2022 18377 8001 SNOMED Malika Gilmore null, PA - [facility] 3 13:49:54 [...] Updated DateTime 3 172.72 cm 31.9 kg/m2 67771.4 g 95 % 95 % 97 /min 20 /min 97.5 [degF] 167/94 mm[Hg] Malika Saldana PA - [facility] 13:55:29 Social History Question Answer Notes LastModified by [employer] Details LastModified Time Tobacco Smoking Status Former [...] Functional Status Question Answer Note LastModified by [employer] Details LastModified Time Do you use any [...] Diagnosis SNOMED-CT Code Diagnosis ICD10 Code Diagnosis IMO Codes Diagnosis Note [id number] [facility] [address] [place] [address] 05/04/2019 10:15:48 05/04/2019 11:04:20 [id number] [address] [address] [facility] [address] [place] [address] 08/22/2017 10:46:43 08/22/2017 11:28:26 [id number] [address] [address] [address] [place] [address] 11/06/2019 08:12:57 11/06/2019 08:47:49 [id number] [address] [facility] [address] [place] [address] 09/10/2018 10:01:20 09/10/2018 11:14:04 [id number] [address] [address] [address] [place] [address] 11/07/2019 08:20:04 11/07/2019 10:41:03 [id number] [address] [address] [address] [place] [address] 03/02/2020 09:28:03 03/02/2020 11:43:55 [id number] [address] [address] [address] [place] [address] 11/04/2019 08:03:33 11/04/2019 09:40:15 [id number] Donavan Hankins DO [facility] [address] [place] [address] 05/18/2022 13:41:02 05/18/2022 14:28:46 Laceration of left hand [id number] S61.412A following oral consent wound was cleaned [...] [place] Pablito Everett [id number] Pablito Everett 05/18/2022 2 [place]) [id number] Pablito Gipson Marguerite [id number] Pablito Gipson Marguerite 05/18/2022 NORIDIAN - SPECIALITY CLAIMS (MEDICARE DME REGION A) Pablito Chuncedric [id number] 25 Burtonalyssa Gipson Adielcedric Notes Date Note Type Note Provider Name and Address Organization Details Recorded Time 05/18/2022 text/html UC Wound/LacerationRep orted by [id number] yo malescratched by his house malik plavix and eliquisstill bleedingtried band aids w/o improvementno f/c/n/vminimal pain no CPno SOBno Hano dizzinessno f/c/n/vROS as noted in the HPI Donavan Hankins, DO [address] [place], [address], PA - [facility] 05/18/2022 14:30:26
[2025-02-23 10:36] LABS: Appearance Urine Clear; Glucose Urine UA Negative (Negative); PH 6.5 (5.0-9.0); Specific Gravity - Urine <= 1.005 (1.005-1.025); UMIC TRIGGER UACC YES
[2025-02-23 10:44] LABS: UACC Culture Trigger YES
== END 2025-02-23 06:02 | disposition home or self-care (01) ==
LOC: HO.HMGCLDS 06:01
PROVIDERS: PCP Internal Medicine; Visit Provider Internal Medicine
DX: E11.65 Type 2 diabetes mellitus with hyperglycemia (principal); I25.10 Atherosclerotic heart disease of native coronary artery without angina pectoris
CPT/HCPCS: 81001; 82570; 87086

== ENCOUNTER 2025-03-03 08:21 | Outpatient (AMB) | payer MEDICARE, SELFPAY ==
--- OUTSIDE RECORDS SUMMARY | 2025-03-03 08:31 | XMS_ITS | Patient Health Record ---
Author Organization [facility] Address [address] [place] [address] Care Team Providers Care Head Miller Name Role Phone Oswaldo Delgado MD Primary Care Provider Ever Colmenares [phone] Allergies Allergen (clinical drug ingredient) Drug/Non Drug [...] Problem Screening for malignant neoplasm of colon (003430829) Encounter for screening for malignant neoplasm of colon (Z12.11) Active confirmed Problem Diverticulosis of colon (024529183) Diverticulosis of colon (K57.30) Active confirmed Problem Esophageal dysphagia (06631141) Esophageal dysphagia (R13.19) Active confirmed Problem 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 (467448494) intermediate current use of anticoagulant (Z79.01) Active confirmed Plan Of Treatment Pending Test Test Name Order Date XR BARIUM SWALLOW-ESOPHAGUS 05/23/2022 Future Test Test Name Order Date COLONOSCOPY 04/27/2021 Insurance Providers Payer Name Payer Address Payer Phone Subscriber Number Group Number Insured Name Patient Relationship to Insured Coverage Start Date Coverage End Date MED[place]ARE OF [place] [address] [place] [address] [phone] [id number] FAISAL ARELLANO Self - patient is the insured MEDEX ATTN CLAIMS [address] [place] [address] [id number] FAISAL ARELLANO Self - patient is the insured Medical (General) History Medical History History ICD Code Ascending aortic aneurysm COPD Coronary artery disease--[place] and 2 stents in 2019-Dr. Jean-Baptiste Osteoporosis Psoriasis - on humira pulmonary nodule Renal stones Thyroid nodule Vitamin D deficiency Wedge compression fracture of T9 vertebr a Hypertension Afib Denies DM,CVA,renal disease Negative screening colonoscopy in 2007 Colonoscopy 05/2020 with a small tubular adenoma removed Surgical History Surgery Date(Month/Year) Appendectomy Tonsillectomy Lung biopsy 11/22/2016 Thyroid-benign
--- OUTSIDE RECORDS SUMMARY | 2025-03-03 08:32 | XMS_ITS | Patient Health Record ---
Author Organization [facility] Address [address] [facility] [place] [place] [address] Care Team Providers Care Manager Of Organizational Development Name Role Phone Oswaldo Delgado Primary Care Provider Buddy Russo Unavailable [phone] Allergies Allergen (clinical drug ingredient) Drug/Non Drug [...] Problem Acquired hammer toe of left foot (6908497608991593) Other hammer toe(s) (acquired), left foot (M20.42) Active confirmed Problem Bilateral atherosclerosis of arteries of lower limbs (disorder) (03185817793500874 ) Atherosclerosis of big sandy artery of both lower extremities, with unspecified presence of clinical manifestation (I70.203) Active confirmed Q7(A), Q8(2B), Q9(1B,2 C) Problem Localized, primary osteoarthritis of the ankle and/or foot (695397915) Arthritis of joint of lesser toe, left (M19.072) Active confirmed Vital Signs Blood pressure diastolic 65 mm Hg 08/21/2024 Height 5ft 8in in 08/21/2024 Blood pressure systolic 130 mm Hg 08/21/2024 Weight 198 lbs 08/21/2024 BMI 30.1 kg/m2 08/21/2024 Encounters Encounter Location Date Provider Diagnosis [address] [address] 08/21/2024 Buddy Morin Atherosclerosis of big sandy artery of both lower extremities, with unspecified presence of clinical manifestation I70.203 ; Other hammer toe(s) (acquired), left foot M20.42 ; Arthritis of joint of lesser toe, left M19.072 and Pain in toe of left foot M79.[address] [address] 09/10/2024 Buddy Morin [address] [address] 09/10/2024 Buddy Morin [facility] [address] [address] 11/18/2024 Buddy Morin Assessments Encounter Date Diagnosis (ICD Code) Assessment Notes Treatment Notes Treatment Clinical Notes Section Notes 08/21/2024 Other hammer toe(s) (acquired), left foot (ICD-10 - M20.42) 08/21/2024 Atherosclerosis of big sandy artery of both lower extremities, with unspecified presence of clinical manifestation (ICD-10 - I70.203) Q7(A), Q8(2B), Q9(1B,2C) 08/21/2024 Arthritis of joint of lesser toe, left (ICD-10 - M19.072) 08/21/2024 Pain in toe of left foot (ICD-10 - M79.675) Plan Of Treatment Pending Test Test Name Order Date X ray : Foot, left 3V 08/21/2024 73448-Rcjo Destruction, -07/19/2017 38230-Rfaq Destruction, 05-0508/06/2017 16138-Fumu Destruction, 05-0508/23/2017 27022-Bcge Destruction, 05-0509/10/2017 29616-Lxew Destruction, 05-0510/04/2017 86779-Aykw Destruction, 05-0510/29/2017 84034-Ulyg Destruction, 05-0511/19/2017 33508-Syhy Destruction, 05-0511/29/2017 39670-Szgs Destruction, 05-0512/06/2017 79150-Ssae Destruction, 05-0501/10/2018 Insurance Providers Payer Name Payer Address Payer Phone Subscriber Number Group Number Insured Name Patient Relationship to Insured Coverage Start Date Coverage End Date Medicare National Govt Svcs Inc [address] [place] [address] [id number] Pablito Everett Self - patient is the insured 1 [employer]ex Blue Shield [address] [place] [address] [phone] [id number] Hal[place], Edward Self - patient is the insured Medical (General) History Medical History History ICD Code Headaches Psoriasis Measles Chicken pox Cholesterol Rheumatoid Arthritis Cataracts Heart disease High Blood Pressure thyroid COPD Surgical History Surgery Date(Month/Year) appendectomy Stent Thyroid Surgery Abdominal Stents 07/13
--- NOTE | 2025-03-03 08:40 | A.OFFPC_ITS ---
Vital Signs 03/03/25 08:41 Height 5 ft 8 in Weight 210 lb 6 oz BMI 32.0 BP 132/70 Blood Pressure Location Lt brachial Position Sitting Pulse 79 Pulse Source Pulse Oximeter Temp 97.3 F Temp Source Temporal Artery Scan Pulse Oximetry (%) 98 Oxygen Delivery Method Room Air Intake Visit Reasons: DM Intake Note: Patient is here to follow up on DM. Hardware Installer Required: No Die Finisher: Not Required per policy Accompanied by: Self / Same As Patient Allergies Penicillins Allergy (Severe, Verified 03/03/25 08:41) Anaphylaxis hydrochlorothiazide Allergy (Unknown, Verified 03/03/25 08:41) Unknown lisinopril Allergy (Unknown, Verified 03/03/25 08:41) Unknown empagliflozin (From Jardiance) Adverse Reaction (Intermediate, Verified 03/03/25 08:41) UTI regadenoson (From Lexiscan) Adverse Reaction (Verified 03/03/25 08:41) Bradycardic Tobacco use date assessed: 03/03/25 Fall risk assessment: No Falls in past year Last assessed Fall Risk: 03/03/25 Dental Screening Dental Screen Date: 06/16/24 [facility] Medical History (Updated 03/03/25 @ 09:24 by Oswaldo Delgado MD) Atrial fibrillation with rapid ventricular response Supplemental oxygen dependent ILD (interstitial lung disease) COPD (chronic obstructive pulmonary disease) Tubular adenoma of colon (~2021) Postoperative hypothyroidism Obesity (BMI 30-39.9) Atrial fibrillation Chest discomfort Bronchitis Hemoptysis HOLLOWAY (dyspnea on exertion) Abnormal SPEP Multinodular thyroid Swelling of left lower extremity Pulmonary nodules/lesions, multiple Ground glass opacity present on imaging of lung Wedge compression fracture of T9 vertebra (~2018) Coronary artery disease Hypertension Right renal stone Thyroid nodule Vitamin D deficiency Ascending aorta dilatation Obesity (BMI 30-39.9) Psoriasis Hypercholesterolemia Former smoker Stable angina Surgical History Status post AAA (abdominal aortic aneurysm) repair Hx of bilateral cataract extraction (~2022) History of partial thyroidectomy (~2020) History of heart artery stent (~2019) History of colonoscopy History of cardioversion (~2020) History of appendectomy History of tonsillectomy History of lung biopsy (~2016) Family History Father Heart disease Mother Throat cancer Paternal Grandfather Heart disease Social History Household Members: Spouse Housing: House Are you a primary health care technician to a significant other at home: No Do you presently have visiting nurse or other home services: No Alcohol intake: former Year quit: 2014 Patient Tobacco Use Status: Former Tobacco user Tobacco use type: Cigarette Years Smoked: 50 e-Cigarette/Vaping Use: Former Use Second Hand Smoke Exposure: Yes Advance Directives Date on File: 09/21/20 service: Yes Current occupational status: retired Cognitive needs: No Hearing needs: No Vision needs: Yes (Glasses) Questionnaire Thrive Questionnaire Date Thrive assessed: 11/05/24 I am a: Patient What is your living situation today?: I have a steady place to live Within the past 12 months, did the food you bought not last and you didn't have the money to get more?: Never true Within the past 12 months, did you worry whether your food would run out before you got money to buy more?: Never true Do you have trouble paying for medicines?: No Do you have trouble getting transportation to medical appointments?: No Do you have trouble paying your heating and electricity bill?: No Do you have trouble taking care of your child, family member or friend?: No Do you have trouble with day-to-day activities such as bathing, preparing meals, shopping, managing finances, etc.?: No Are you currently unemployed and looking for a job?: No Are you interested in more education?: No Please select the resources that you would like help with: None Currently or been in a relationship where the following occur: No concerns reported THRIVE Score: 0 AUDIT C Alcohol Use Questionnaire (AUDIT-C) 3. How often do you have six or more drinks on one occasion?: Never Total Score: 0 JORGE-7 AMB Questionnaire JORGE-7 Date JORGE - 7 assessed: 06/16/24 Source: Developed by Drs. Ever Nelson, Sarah Galindo, Lopez Owen and colleagues, with an educational moira from [employer]. Physical exam (Primary Care) Vital Signs: Last Vital Signs Temp 97.3 F 03/03/25 08:41 Pulse 79 03/03/25 08:41 BP 132/70 03/03/25 08:41 Pulse Ox 98 03/03/25 08:41 Oxygen Delivery Method Room Air 03/03/25 08:41 BMI result Body Mass Index 32.0 Tobacco/Smoking Status: Tobacco use Status Tobacco use date assessed 03/03/25 03/03/25 08:48 Patient Tobacco Use Status Former Tobacco user 03/03/25 08:48 Tobacco use type Cigarette 03/03/25 08:48 e-Cigarette/Vaping Use Former Use 03/03/25 08:48 Thrive Assessment: Date of Thrive Assessment Date Thrive assessed 11/05/24 03/03/25 08:48 Currently or been in a relationship where the following occur: No concerns reported Const General: alert; No acute distress Eyes Conjunctivae: conjunctivae normal Resp Auscultation: clear to auscultation bilaterally Cardio Rate: regular rate Rhythm: regular rhythm GI Inspection: Yes normal to inspection Extrem General: Yes normal to inspection and No edema Results AMB Hemoglobin A1c AMB Hemoglobin A1c 6.1 % Last Edit by CEDRICK Ivan on 03/03/25 09:19 Results Reviewed Results Reviewed: Laboratory Last Values Hgb A1c (Clinic) 6.1 % (4.0-6.0) H 03/03/25 08:40 Coding Level of Care Code Est Pt Level 4 (46260) Complex EM visit Add On G2211 Diagnoses Type 2 diabetes mellitus with hyperglycemia E11.65 Hypercholesterolemia E78.00 Chronic atrial fibrillation I48.20 Essential hypertension I10 Hypertension type: essential hypertension Coronary artery disease involving [place] coronary artery of [place] heart without angina pectoris I25.10 Associated angina: without angina Coronary Disease-Associated Artery/Lesion type: [place] artery [place] vs. transplanted heart: [place] heart Chronic diastolic heart failure I50.32 Postoperative hypothyroidism E89.0 Obesity (BMI 30-39.9) E66.9 COPD (chronic obstructive pulmonary disease) J44.9 Assessment & Plan Assessment & Plan (1) Type 2 diabetes mellitus with hyperglycemia: Comment: Dr. Waddell and Dr. Mccord Code(s): E11.65 - Type 2 diabetes mellitus with hyperglycemia Category: Medical Plan: Decrease the amount of carbohydrate intake, pasta, bread, rice and potatoes are all sugar and that is aside from all the sweet stuff, remember that fruits are good but they are Sweet also. Hemoglobin A1c goal of less than 7.0. Diet controlled (2) Hypercholesterolemia: Code(s): E78.00 - Pure hypercholesterolemia, unspecified Category: Medical Plan: Avoid fried foods, chicken skin, eggs, butter margarine, pastries and meat. Be it pork or beef they have a lot of cholesterol LDL goal of less than 70 and triglyceride of less than 150 on atorvastatin 80 mg once a day October 2024 last blood work (3) Chronic atrial fibrillation: Code(s): I48.20 - Chronic atrial fibrillation, unspecified Category: Medical Plan: Continue with anticoagulation with Eliquis digoxin diltiazem (4) Hypertension: Code(s): I10 - Essential (primary) hypertension Category: Medical Qualifiers: Hypertension type: essential hypertension Qualified Code(s): I10 - Essential (primary) hypertension Plan: Continue with blood pressure medication. Decrease salt intake and exercise on metoprolol 50 mg twice a day diltiazem 120 mg once a day (5) Coronary artery disease: Comment: (NSTEMI 04/2019 - JL + proximal and distal RCA rotablation) 03/01/2024 PCI to RCA Code(s): I25.10 - Atherosclerotic heart disease of [place] coronary artery without angina pectoris Category: Medical Qualifiers: Associated angina: without angina Coronary Disease-Associated Artery/Lesion type: [place] artery [place] vs. transplanted heart: [place] heart Qualified Code(s): I25.10 - Atherosclerotic heart disease of [place] coronary artery without angina pectoris Plan: Control the cholesterol, weight, blood pressure, diabetes on anticoagulation (6) Chronic diastolic heart failure: Code(s): I50.32 - Chronic diastolic (congestive) heart failure Category: Medical Plan: Continue with furosemide 40 mg once a day (7) Postoperative hypothyroidism: Comment: (s/p left hemithyroidectomy 03/2021) Code(s): E89.0 - Postprocedural hypothyroidism Category: Medical Plan: Continue with thyroid medication (8) Obesity (BMI 30-39.9): Code(s): E66.9 - Obesity, unspecified Category: Medical Plan: Diet and exercise (9) COPD (chronic obstructive pulmonary disease): Code(s): J44.9 - Chronic obstructive pulmonary disease, unspecified Category: Medical Plan: Continue to follow-up with Pulmonary just had a CT scan on oxygen continuing with Jeffrey Chang History of Present Illness The patient is a 79-year-old obese male presenting for a follow-up visit for multiple medical problems. His comorbidities include hypothyroidism, hypertension, hypercholesterolemia, coronary artery disease, interstitial lung disease with COPD, ascending aorta dilatation, thoracic wedge fracture, vertebral osteoporosis, atrial fibrillation, peripheral vascular disease, diabetes mellitus, and congestive heart failure. His ascending aortic dilatation measured 4.4 cm in December, having previously measured between 3.8 and 4.4 cm. He was evaluated in the emergency room on February 02 for chest pains. The patient follows with pulmonology, last seen on January 25, and with hematology and oncology for pulmonary nodules. A chest X-ray in January 2025 revealed a small right pleural effusion and increased right basilar patchy opacities. A CT scan in December showed bilateral pleural effusions with minimal interstitial consolidation. He follows with dermatology for psoriasis and is on a steroid cream. He was seen by a colleague in December for cystitis and was treated with Macrobid. Review of recent lab work from February 01 shows chronic anemia, blood sugar of 121, stable liver and renal function, and a BNP of 1000. His last cholesterol check in October 2024 showed an LDL of 57. Health Maintenance - Diet and exercise were advised. - Follow up with pulmonology is recommended. - The next follow-up for aortic aneurysm surveillance is scheduled for February 2024. Social History - Diet and exercise were recommended as part of the management plan. Review of Systems - Cardiovascular: History of chest pains, which prompted an emergency room visit on February 02. Physical Exam Results - Blood work (February 01): Revealed chronic anemia, good electrolytes, good renal function, blood sugar of 121, stable liver function, and a BNP of 1000. - Lipid Panel (October 2024): LDL of 57. - Chest X-ray (January 2025): Showed right basilar patchy opacities, which were increased from a previous study, and a small right pleural effusion. - CT Scan (December): Showed bilateral pleural effusions and minimal interstitial consolidation. - Aortic imaging (December): Ascending aorta measured 4.4 cm. Plan Patient was informed and verbally consented to the use of an ambient scribe for clinic note documentation during this visit. 1. Diabetes Mellitus The plan is to maintain a hemoglobin A1c goal of less than 7.0. The patient's diabetes is currently diet-controlled. 2. Hypercholesterolemia The plan includes maintaining an LDL goal of less than 70 and triglycerides less than 150. Continue atorvastatin 80 mg once a day. 3. Atrial Fibrillation / Coronary Artery Disease Continue anticoagulation with Eliquis, digoxin, and diltiazem. 4. Hypertension Blood pressure plan includes continuing metoprolol 50 mg twice a day and diltiazem 120 mg once a day. 5. Congestive Heart Failure Continue furosemide 40 mg once a day. 6. Hypothyroidism Continue with current thyroid medication. 7. Obesity Reinforce diet and exercise. 8. Interstitial Lung Disease/Copd Continue to follow up with pulmonary. The patient is on oxygen and will continue with Breztri. Discussion Notes I reviewed the patient's extensive history and recent specialist visits, including pulmonology, hematology/oncology, and dermatology. We discussed the recent imaging findings, including the CT scan showing bilateral pleural effusions and the chest x-ray showing a small right pleural effusion. I advised continuing the current medication regimen for his multiple chronic conditions including diabetes, hypercholesterolemia, hypertension, atrial fibrillation, and heart failure. The importance of lifestyle modifications with diet and exercise was reinforced, along with continued follow-up with his specialists. Patient Instructions - Continue taking all of your medications as prescribed, including atorvastatin for cholesterol, Eliquis for blood thinning, and medications for blood pressure, heart rhythm, fluid retention, and thyroid. - Control your diabetes through diet as discussed. - Continue to use your oxygen and Breztri inhaler for your lung condition. - Follow up with your lung specialist as planned. - Incorporate healthy diet and exercise into your routine. - Remember your next aorta check is scheduled for February 2024. Orders: Orders AMB Hemoglobin A1c Today E11.65 - Type 2 diabetes mellitus with hyperglycemia
[2025-03-03 08:41] VITALS: BP 132/70; PULSE 79; TEMP 36.3; O2SAT 98; BMI 32.0
== END 2025-03-03 09:29 | disposition home or self-care (01) ==
LOC: HO.HMCH 08:22
PROVIDERS: PCP Internal Medicine; Visit Provider Internal Medicine
DX: E11.65 Type 2 diabetes mellitus with hyperglycemia (principal); E78.00 Pure hypercholesterolemia, unspecified; I48.20 Chronic atrial fibrillation, unspecified; I10 Essential (primary) hypertension; I25.10 Atherosclerotic heart disease of native coronary artery without angina pectoris; I50.32 Chronic diastolic (congestive) heart failure; E89.0 Postprocedural hypothyroidism; E66.9 Obesity, unspecified; J44.9 Chronic obstructive pulmonary disease, unspecified

== ENCOUNTER → 2025-03-03 08:21 | Outpatient (BNVA) | payer MEDICARE, SELFPAY | PROVIDERS: PCP Internal Medicine; Visit Provider Internal Medicine | DX: E11.65 Type 2 diabetes mellitus with hyperglycemia (principal); E78.00 Pure hypercholesterolemia, unspecified; I48.20 Chronic atrial fibrillation, unspecified; I25.10 Atherosclerotic heart disease of native coronary artery without angina pectoris; I11.0 Hypertensive heart disease with heart failure; I50.32 Chronic diastolic (congestive) heart failure; E89.0 Postprocedural hypothyroidism; J44.9 Chronic obstructive pulmonary disease, unspecified; E66.9 Obesity, unspecified; Z68.32 Body mass index [BMI] 32.0-32.9, adult; Z71.3 Dietary counseling and surveillance; Z87.891 Personal history of nicotine dependence | CPT/HCPCS: 83036; 99212 ==

== ENCOUNTER 2025-03-10 08:36 | Outpatient (REF) | payer MEDICARE, SELFPAY ==
[2025-03-10 16:12] LABS: Hematocrit 34.4 % (42.0-52.0); Hemoglobin 11.0 g/dl (14.0-18.0); Mean Corpuscular HGB Conc 32.0 g/dl (31.0-36.0); Mean Corpuscular Hemoglobin 34.1 pg (27.0-33.0); Mean Corpuscular Volume 106.5 fL (80.0-98.0); NRBC Abs Auto 0.000 X10*3/uL (0.0-0.012); NRBC Pct Auto 0.0 /100WBC (0.0-0.2); Platelet Count 171 X10*3/uL (160-400); Red Blood Count 3.23 X10*6/uL (4.60-5.80); White Blood Count 6.2 X10*3/uL (4.8-10.8)
[2025-03-10 16:28] LABS: Anion Gap 11 (12-20); Blood Urea Nitrogen 24 mg/dL (9-16); Calcium 8.7 mg/dL (8.4-10.2); Carbon Dioxide 28 mmol/L (22-29); Chloride 105 mmol/L (96-108); Estimated Glomerular Filt Rate > 60; Potassium 3.3 mmol/L (3.3-5.1); Sodium 141 mmol/L (135-145)
[2025-03-10 16:39] LABS: INTERNATIONAL NORM RATIO 1.4 (0.9-1.1); Prothrombin Time 16.7 SEC (11.2-13.5)
--- OUTSIDE RECORDS SUMMARY | 2025-03-11 01:10 | XMS_ITS | Patient Health Record ---
Author Organization [facility] Address [address] [place] [address] Care Team Providers Care Escalator Operator Name Role Phone Oswaldo Delgado Primary Care Provider Buddy Russo Unavailable [phone] Allergies Allergen (clinical drug ingredient) Drug/Non Drug [...] Problem Acquired hammer toe of left foot (8476470377116389) Other hammer toe(s) (acquired), left foot (M20.42) Active confirmed Problem Bilateral atherosclerosis of arteries of lower limbs (disorder) (01814375044625697 ) Atherosclerosis of color[place] river artery of both lower extremities, with unspecified presence of clinical manifestation (I70.203) Active confirmed Q7(A), Q8(2B), Q9(1B,2 C) Problem Localized, primary osteoarthritis of the ankle and/or foot (015115346) Arthritis of joint of lesser toe, left (M19.072) Active confirmed Vital Signs Blood pressure diastolic 65 mm Hg 08/21/2024 Height 5ft 8in in 08/21/2024 Blood pressure systolic 130 mm Hg 08/21/2024 Weight 198 lbs 08/21/2024 BMI 30.1 kg/m2 08/21/2024 Encounters Encounter Location Date Provider Diagnosis [address] [address] 08/21/2024 Buddy Morin Atherosclerosis of color[place] river artery of both lower extremities, with unspecified presence of clinical manifestation I70.203 ; Other hammer toe(s) (acquired), left foot M20.42 ; Arthritis of joint of lesser toe, left M19.072 and Pain in toe of left foot M79.[address] [address] 09/10/2024 Buddy Morin [address] [address] 09/10/2024 Buddy Morin [facility] [address] [address] 11/18/2024 Buddy Morin Assessments Encounter Date Diagnosis (ICD Code) Assessment Notes Treatment Notes Treatment Clinical Notes Section Notes 08/21/2024 Other hammer toe(s) (acquired), left foot (ICD-10 - M20.42) 08/21/2024 Atherosclerosis of color[place] river artery of both lower extremities, with unspecified presence of clinical manifestation (ICD-10 - I70.203) Q7(A), Q8(2B), Q9(1B,2C) 08/21/2024 Arthritis of joint of lesser toe, left (ICD-10 - M19.072) 08/21/2024 Pain in toe of left foot (ICD-10 - M79.675) Plan Of Treatment Pending Test Test Name Order Date X ray : Foot, left 3V 08/21/2024 33966-Ovyd Destruction, -07/19/2017 54092-Fnjf Destruction, 05-0508/06/2017 56258-Nbpu Destruction, 05-0508/23/2017 18612-Wwsw Destruction, 05-0509/10/2017 22006-Hela Destruction, 05-0510/04/2017 72755-Yipg Destruction, 05-0510/29/2017 35308-Nraq Destruction, 05-0511/19/2017 19368-Ozpy Destruction, 05-0511/29/2017 41362-Ochr Destruction, 05-0512/06/2017 98332-Zzdh Destruction, 05-0501/10/2018 Insurance Providers Payer Name Payer Address Payer Phone Subscriber Number Group Number Insured Name Patient Relationship to Insured Coverage Start Date Coverage End Date Medicare National Govt Svcs Inc [address] [place] [address] [id number] Pablito Everett Self - patient is the insured 1 Medex Blue Shield [address] [place] [address] [phone] [id number] Halton, Edward Self - patient is the insured Medical (General) History Medical History History ICD Code Headaches Psoriasis Measles Chicken pox Cholesterol Rheumatoid Arthritis Cataracts Heart disease High Blood Pressure thyroid COPD Surgical History Surgery Date(Month/Year) appendectomy Stent Thyroid Surgery Abdominal Stents 07/13
--- OUTSIDE RECORDS SUMMARY | 2025-03-11 01:10 | XMS_ITS | Patient Health Record ---
Author Organization [facility] Address [address] [place] [address] Care Team Providers Care Feather Boner Name Role Phone Po Oswaldo PAINTING Primary Care Provider Ever Colmenares [phone] Allergies Allergen (clinical drug ingredient) Drug/Non Drug Allergy documented on EMR Reaction Allergy Type Onset Date Status hydrochlorothiazide Hydrochlorothiazide Unknown Drug Aller gy Active lisinopril Lisinopril Unknown Drug Allergy Activ e Penicillin Unknown Drug Allergy Active Reason For Referral No Information Medications Medication SIG (Take, Route, Frequency, Duration) Notes Start Date End Date Status Atorvastatin Calcium 80 MG Tablet Oral; Duration: 90 Active CVS Vitamin B12 1000 MCG Tablet Oral; Duration: 90 Active Humira Pen 40 MG/0.4ML Pen-injector Kit Subcutaneous; Duration: 28 Active Eliquis 5 MG Tablet Oral; Duration: 30 Active Metoprolol Tartrate 25 MG Tablet Oral; Duration: 90 Active Symbicort 160-4.5 MCG/ACT Aerosol Inhalation; Duration: 90 Act katheryn dilTIAZem HCl ER Coated Beads 300 MG Capsule Extended Release 24 Hour Oral; Duration: 90 Active Clopidogrel Bisulfate 75 MG Tablet Oral; Duration: 90 Active Levothyroxine Sodium 50 MCG Tablet Oral; Duration: 90 Active Betamethasone Dipropionate Aug 0.05 % Cream External; Duration: 15 A ctive Breztri Aerosphere 160-9-4.8 MCG/ACT Aerosol Inhalation; Duration: 30 Active Immunizations Vaccine Route Administration Date Status Comme nts Influenza Unknown 01/20/2021 Administered Influenza Unknown 03/13/2022 Administered Social History Tobacco Use: Social History Observation Description Date Details (start date - stop date) Former Smoker NA - NA Social History Drugs/Alcohol: Social Info Question Answer Notes Alcohol Screen Did you have a drink containing alcohol in the past year? No Points 0 Interpretation Negative Tobacco Use: Social Info Question Answer Notes Tobacco Use/Smoking Patient is a former smoker How long has it been since you last smoked? 5-10 years Additional Details Category Social Info Options Details Miscellaneous: Marital status: Occupation: retired Section Notes: Quit smoking and ETOH Jun 11 Quit smoking and ETOH Jun 11 Problems Problem Type SNOMED Code ICD Code Onset Dates Problem Status W/U Status Risk Notes Problem Screening for malignant neoplasm of colon (109878928) Encounter for screening for malignant neoplasm of colon (Z12.11) Active confirmed Problem Diverticulosis of colon (457810952) Diverticulosis of colon (K57.30) Active confirmed Problem Esophageal dysphagia (97003002) Esophageal dysphagia (R13.19) Active confirmed Problem 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 (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) Active confirmed Plan Of Treatment Pending Test Test Name Order Date XR BARIUM SWALLOW-ESOPHAGUS 05/23/2022 Future Test Test Name Order Date COLONOSCOPY 04/27/2021 Insurance Providers Payer Name Payer Address Payer Phone Subscriber Number Group Number Insured Name Patient Relationship to Insured Coverage Start Date Coverage End Date MEDICARE OF [place] [address] [place] [address] [id number] FAISAL ARELLANO Self - patient is the insured MEDEX ATTN CLAIMS [address] [place] [address] [id number] FAISAL ARELLANO Self - patient is the insured Medical (General) History Medical History History ICD Code Ascending aortic aneurysm COPD Coronary artery disease--[place] and 2 stents in 2019-Dr. Jean-Baptiste Osteoporosis Psoriasis - on humira pulmonary nodule Renal stones Thyroid nodule Vitamin D deficiency Wedge compression fracture of T9 vertebr a Hypertension Afib Denies DM,CVA,renal disease Negative screening colonoscopy in 2007 Colonoscopy 05/2020 with a small tubular adenoma removed Surgical History Surgery Date(Month/Year) Appendectomy Tonsillectomy Lung biopsy 11/22/2016 Thyroid-benign
== END 2025-03-10 08:37 | disposition home or self-care (01) ==
LOC: HO.HMGCLDS 08:36
PROVIDERS: PCP Internal Medicine; Visit Provider Internal Medicine Cardiovascular Disease
DX: I11.0 Hypertensive heart disease with heart failure (principal); I50.32 Chronic diastolic (congestive) heart failure; I48.21 Permanent atrial fibrillation; I25.118 Atherosclerotic heart disease of native coronary artery with other forms of angina pectoris; Z79.01 Long term (current) use of anticoagulants
CPT/HCPCS: 36415; 80048; 85027; 85610; 99212

== ENCOUNTER 2025-03-10 08:36 | Outpatient (AMB) | payer MEDICARE, SELFPAY ==
--- NOTE | 2025-03-10 08:59 | MHC.OFFVIS ---
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 Required: No Accompanied by: Self / Same As Patient Allergies Penicillins Allergy (Severe, Verified 03/03/25 08:41) Anaphylaxis hydrochlorothiazide Allergy (Unknown, Verified 03/03/25 08:41) Unknown lisinopril Allergy (Unknown, Verified 03/03/25 08:41) Unknown empagliflozin (From Jardiance) Adverse Reaction (Intermediate, Verified 03/03/25 08:41) UTI regadenoson (From Lexiscan) Adverse Reaction (Verified 03/03/25 08:41) Bradycardic Medication List - Last Reconciled 03/10/25 by Ja Jean-Baptiste MD apixaban (Eliquis) 5 mg PO BID 90 days atorvastatin 80 mg PO BEDTIME [id number] 160-9-4.8 mcg/actuation (Breztri Aerosphere) 2 inhalations PO BID cholecalciferol (vitamin D3) 50 mcg PO DAILY clopidogrel 75 mg PO ONCE compress.stocking,knee,reg,med As directed 20-30 mm HG cyanocobalamin (vitamin B-12) (Vitamin B-12) 1,000 mcg PO DAILY diclofenac sodium 1% (Arthritis Pain (diclofenac)) 4 grams topical QID digoxin 125 mcg PO 3XW diltiazem HCl CD 120 mg PO DAILY famotidine 20 mg PO BID 90 days ferrous sulfate 325 mg PO DAILY 90 days furosemide 40 mg (2 x 20 mg) PO QAM 90 days guselkumab (Tremfya Pen) 100 mg subcut Q8W levothyroxine 50 mcg PO DAILY@0600 metoprolol tartrate 50 mg PO BID 90 days [OXYGEN 2 L NC keep sats > 90 As directed] [PORTABLE OXYGEN TANK As directed] potassium chloride ER (Klor-Con) 10 mEq PO BID tamsulosin 0.8 mg (2 x 0.4 mg) PO DAILY HPI Comments Details: [age] year gentleman with permanent atrial fibrillation, chronic diastolic heart failure, COPD on supplemental oxygen and coronary artery disease with previous PCI presenting for follow-up. He had InStent restenosis diagnosed in 2023 and underwent PCI to RCA. He had moderate LAD disease at that time. He is returning and he is complaining that his dyspnea has worsened and is getting more out of breath. He is saying is not sure whether this is related to his lungs or the heart. He is denying any chest discomfort but he has never had chest discomfort before. From atrial fibrillation point of view he is rate controlled and he has been managed with rate control strategy without any changes in ejection fraction or symptomatology when he had sinus rhythm. Taking medications regularly. No bleeding concerns. Denying orthopnea or PND. [facility] Medical History (Updated 03/10/25 @ 09:29 by Ja Jean-Baptiste MD) HOLLOWAY (dyspnea on exertion) Atrial fibrillation with rapid ventricular response Supplemental oxygen dependent ILD (interstitial lung disease) COPD (chronic obstructive pulmonary disease) Tubular adenoma of colon (~2021) Postoperative hypothyroidism Obesity (BMI 30-39.9) Atrial fibrillation Chest discomfort Bronchitis Hemoptysis Abnormal SPEP Multinodular thyroid Swelling of left lower extremity Pulmonary nodules/lesions, multiple Ground glass opacity present on imaging of lung Wedge compression fracture of T9 vertebra (~2018) Coronary artery disease Hypertension Right renal stone Thyroid nodule Vitamin D deficiency Ascending aorta dilatation Obesity (BMI 30-39.9) Psoriasis Hypercholesterolemia Former smoker Stable angina Surgical History Status post AAA (abdominal aortic aneurysm) repair Hx of bilateral cataract extraction (~2022) History of partial thyroidectomy (~2020) History of heart artery stent (~2019) History of colonoscopy History of cardioversion (~2020) History of appendectomy History of tonsillectomy History of lung biopsy (~2016) Family History Father Heart disease Mother Throat cancer Paternal Grandfather Heart disease Social History Household Members: Spouse Housing: House Are you a primary child care associate teacher to a significant other at home: No Do you presently have visiting nurse or other home services: No Unable to assess alcohol history related to: Unknown Alcohol intake: former Year quit: 2014 Patient Tobacco Use Status: Former Tobacco user Tobacco use type: Cigarette Years Smoked: 50 e-Cigarette/Vaping Use: Former Use Second Hand Smoke Exposure: Yes Advance Directives Date on File: 09/21/20 service: Yes Current occupational status: retired Cognitive needs: No Hearing needs: No Vision needs: Yes (Glasses) Review of Systems Const Denies chills, Denies fatigue, Denies fever(s), Denies frequent falls, Denies weakness, Denies weight gain and Denies weight loss ENT Denies dizziness Card Denies chest pain, Denies leg edema, Denies lightheadedness, Denies palpitations, Denies dyspnea and Denies dyspnea on exertion Resp Denies cough, Denies dyspnea and Denies dyspnea on exertion GI Denies hematochezia Musc Denies abnormal gait, Denies muscle weakness, Denies numbness, Denies radiating pain into limb and Denies tingling Neuro Denies abnormal gait, Denies dizziness, Denies frequent falls, Denies numbness, Denies tingling and Denies weakness Endo Denies fatigue and Denies palpitations Physical Exam Vital Signs: Last Vital Signs Pulse 86 03/10/25 09:00 BP 110/68 03/10/25 09:00 BMI result Body Mass Index 31.1 GENERAL APPEARANCE: in no acute distress, pleasant. NECK: no carotid bruit, no jugular venous distention. SKIN: no suspicious lesions, warm and dry. HEART: no murmurs, irregular rate and rhythm. LUNGS: clear to auscultation bilaterally. ABDOMEN: soft, nontender. EXTREMITIES: no edema. PERIPHERAL PULSES: equal. NEUROLOGIC: No gross deficits, AAO X 3 Assessment & Plan Assessment & Plan (1) Hypertension: Code(s): I10 - Essential (primary) hypertension Category: Medical Qualifiers: Hypertension type: essential hypertension Qualified Code(s): I10 - Essential (primary) hypertension (2) Chronic diastolic heart failure: Code(s): I50.32 - Chronic diastolic (congestive) heart failure Category: Medical (3) Permanent atrial fibrillation: Code(s): I48.21 - Permanent atrial fibrillation Category: Medical (4) Stable angina: Code(s): I20.8 - Other forms of angina pectoris Category: Medical (5) HOLLOWAY (dyspnea on exertion): Code(s): R06.00 - Dyspnea, unspecified Category: Medical Plan Pleasant 79 year gentleman who is here for follow-up. He has background history of interstitial lung disease, COPD on oxygen and coronary disease for which she presented also for dyspnea with exertion. He is complaining of worsening dyspnea. He is even out of breath walking inside the exam room. By examination he is not in heart failure currently. I have explained to him that the likely reason for his dyspnea is lung disease and deconditioning but given the fact that he had severe ISR in the right coronary artery previously and had moderate LAD stenosis and the fact that he had dyspnea as presentation for coronary disease also we can consider repeating diagnostic angiography. I will do also a right heart catheterization at the same time to document his filling pressures and make sure he does not have advanced pulmonary hypertension. He is agreeable for this and we will arrange this soon. In the meantime we will continue same medications for now. Thank you for allowing me to participate in the care of your patient. Please feel free to contact me if you have any questions. Orders: Orders Cardiac Cath YARIEL Diagnostic Today I25.10 - Atherosclerotic heart disease of [place] coronary artery without angina pectoris Complete Blood Count no Diff Today I25.10 - Atherosclerotic heart disease of [place] coronary artery without angina pectoris Prothrombin Time INR Today I25.10 - Atherosclerotic heart disease of [place] coronary artery without angina pectoris Basic Metabolic Panel Today I25.10 - Atherosclerotic heart disease of [place] coronary artery without angina pectoris Coding Level of Care Code Est Pt Level 5 (58975) Diagnoses Essential hypertension I10 Hypertension type: essential hypertension Chronic diastolic heart failure I50.32 Permanent atrial fibrillation I48.21 Stable angina I20.8 HOLLOWAY (dyspnea on exertion) R06.00
[2025-03-10 09:00] VITALS: BP 110/68; PULSE 86; BMI 31.1
--- OUTSIDE RECORDS SUMMARY | 2025-03-10 16:20 | XMS_ITS | Patient Health Record ---
Author Organization [employer] [facility] Address [address] [facility] [place] [address] Care Team Providers Care Cafeteria Attendant Name Role Phone Oswaldo Delgado Primary Care Provider Buddy Russo Unavailable [phone] Allergies Allergen (clinical drug ingredient) Drug/Non Drug [...] Problem Acquired hammer toe of left foot (7749817484754372) Other hammer toe(s) (acquired), left foot (M20.42) Active confirmed Problem Bilateral atherosclerosis of arteries of lower limbs (disorder) (43434707036710399 ) Atherosclerosis of rampart artery of both lower extremities, with unspecified presence of clinical manifestation (I70.203) Active confirmed Q7(A), Q8(2B), Q9(1B,2 C) Problem Localized, primary osteoarthritis of the ankle and/or foot (056399076) Arthritis of joint of lesser toe, left (M19.072) Active confirmed Vital Signs Blood pressure diastolic 65 mm Hg 08/21/2024 Height 5ft 8in in 08/21/2024 Blood pressure systolic 130 mm Hg 08/21/2024 Weight 198 lbs 08/21/2024 BMI 30.1 kg/m2 08/21/2024 Encounters Encounter Location Date Provider Diagnosis [address] [address] 08/21/2024 Buddy Moirn Atherosclerosis of rampart artery of both lower extremities, with unspecified presence of clinical manifestation I70.203 ; Other hammer toe(s) (acquired), left foot M20.42 ; Arthritis of joint of lesser toe, left M19.072 and Pain in toe of left foot M79.[address] [address] 09/10/2024 Buddy Morin [address] [place] [address] 09/10/2024 Buddy Morin [facility] [address] [address] 11/18/2024 Buddy Morin Assessments Encounter Date Diagnosis [...] X ray : Foot, left 3V 08/21/2024 53231-Wazn Destruction, -07/19/2017 48205-Alhw Destruction, 05-0508/06/2017 02311-Ckea Destruction, 05-0508/23/2017 77646-Rrsr Destruction, 05-0509/10/2017 22790-Wxor Destruction, 05-0510/04/2017 84982-Qrfx Destruction, 05-0510/29/2017 16000-Lgpx Destruction, 05-0511/19/2017 00763-Nlzg Destruction, 05-0511/29/2017 61594-Uhwq Destruction, 05-0512/06/2017 80234-Vtpx Destruction, 05-0501/10/2018 Insurance Providers Payer Name Payer Address Payer Phone Subscriber Number Group Number Insured Name Patient Relationship to Insured Coverage Start Date Coverage End Date Medicare National Govt Svcs Inc [address] [place] [address] [id number] Pablito Everett Self - patient is the insured 1 Medex Blue Shield [address] [place] [address] [phone] [id number] Halton, Edward Self - patient is the insured Medical (General) History Medical History History ICD Code Headaches Psoriasis Measles Chicken pox Cholesterol Rheumatoid Arthritis Cataracts Heart disease High Blood Pressure thyroid COPD Surgical History Surgery Date(Month/Year) appendectomy Stent Thyroid Surgery Abdominal Stents 07/13
--- OUTSIDE RECORDS SUMMARY | 2025-03-10 16:21 | XMS_ITS | Data Portability ---
Author Organization [facility]ardo, [address] Address [address] [place] [address] Assessment No assessment recorded. Plan of Treatment [...] By Organization Details Last Modified Time 05/18/2022 [id number] cuts: care instructions [email or web address] Not available 05/18/2022 [...] Address Organization Details Recorded Time Atrial fibrillation 52886777 Active 2022 Malika Shana null, PA - [facility] 3 13:50:16 Chronic obstructive pulmonary disease 46911180 Active 2022 Malika Shana null, PA - [facility] 3 13:50:20 Hypertensive disorder 62278236 Active 2022 Malika Shana null, PA - [facility] 3 13:50:27 Hyperlipidemia 06583755 Active 2022 Malika Shana null, PA - [facility] 3 13:50:33 Problem Notes None recorded. Medical Equipment None Reported. Allergies Allergen ID Allergen Name Allergen Category Reaction Reaction Severity Criticality Documentation Date Start Date Code Code System Note Provider Name and Address Organization Details Recorded Time 495080 Product containin g penicilli n (product) medicatio n anaphylax is Not available high 05/18/2022 49425 8001 SNOMED Malika [place] null, PA - [facility] 3 13:49:54 [...] Updated DateTime 3 172.72 cm 31.9 kg/m2 26388.4 g 95 % 95 % 97 /min 20 /min 97.5 [degF] 167/94 mm[Hg] Malika Saldana PA - [facility] 13:55:29 Social History Question Answer Notes LastModified by [employer] Details LastModified Time Tobacco Smoking Status Former [...] Functional Status Question Answer Note LastModified by [employer] Details LastModified Time Do you use any [...] ICD10 Code Diagnosis IMO Codes Diagnosis Note [id number] [facility] [address] [place] [address] 05/04/2019 10:15:48 05/04/2019 11:04:20 [id number] [address] [facility] [address] [place] [address] 08/22/2017 10:46:43 08/22/2017 11:28:26 [id number] [address] [address] [address] [place] [address] 11/06/2019 08:12:57 11/06/2019 08:47:49 [id number] [address] [address] [place] [address] 09/10/2018 10:01:20 09/10/2018 11:14:04 [id number] [address] [address] [address] [place] [address] 11/07/2019 08:20:04 11/07/2019 10:41:03 [id number] [address] [address] [address] [place] [address] 03/02/2020 09:28:03 03/02/2020 11:43:55 [id number] [address] [address] [place] [address] 11/04/2019 08:03:33 11/04/2019 09:40:15 [id number] Donavan Hankins DO [facility] [address] [place] [address] 05/18/2022 13:41:02 05/18/2022 14:28:46 Laceration of left hand [id number] 4041106 S61.412A following oral consent wound was cleaned [...] [place]ERNMENT [place] Pablito Everett [id number] Pablito Everett 05/18/2022 2 [place]) [id number] Pablito Gipson Marguerite [id number] Pablito Gipson Marguerite 05/18/2022 NORIDIAN - SPECIALITY CLAIMS (MEDICARE DME REGION A) Pablito Chuncedric [id number] 25 Burtonalyssa Gipson Adielcedric Notes Date Note Type Note Provider Name and Address Organization Details Recorded Time 05/18/2022 text/html UC Wound/LacerationRep orted by Ihdrfes16 yo malescratched by his house malik plavix and eliquisstill bleedingtried band aids w/o improvementno f/c/n/vminimal pain no CPno SOBno Hano dizzinessno f/c/n/vROS as noted in the HPI Donavan Hankins, DO [address] [place], [address], PA - [facility] 05/18/2022 14:30:26
== END 2025-03-10 09:38 | disposition home or self-care (01) ==
LOC: HO.HCS 08:37
PROVIDERS: PCP Internal Medicine; Visit Provider Internal Medicine Cardiovascular Disease
DX: I10 Essential (primary) hypertension (principal); I50.32 Chronic diastolic (congestive) heart failure; I48.21 Permanent atrial fibrillation; I20.89 Other forms of angina pectoris; R06.00 Dyspnea, unspecified
CPT/HCPCS: 99215

== ENCOUNTER → 2025-03-23 23:59 | Outpatient (BNV) | payer MEDICARE, SELFPAY | PROVIDERS: PCP Internal Medicine; Visit Provider Internal Medicine Cardiovascular Disease | DX: I25.118 Atherosclerotic heart disease of native coronary artery with other forms of angina pectoris (principal) | CPT/HCPCS: 93460; 99152 ==

== ENCOUNTER 2025-04-01 08:09 | Outpatient (AMB) | payer MEDICARE, SELFPAY ==
--- NOTE | 2025-04-01 08:17 | MHC.OFFVIS ---
Intake Visit Reasons: 6M PVR/UA/SET Intake Note: Patient is present for 6M follow up Urology Medication:TAMSULOSIN Antibiotic Allergy:PENICILLIN Blood Thinner:APIXABAN,Clopidogrel TODAY'S PVR:451ML'S Fruit And Vegetable Classer Required: No Accompanied by: Self / Same As Patient Allergies Penicillins Allergy (Severe, Verified 04/01/25 08:17) Anaphylaxis hydrochlorothiazide Allergy (Unknown, Verified 04/01/25 08:17) Unknown lisinopril Allergy (Unknown, Verified 04/01/25 08:17) Unknown empagliflozin (From Jardiance) Adverse Reaction (Intermediate, Verified 04/01/25 08:17) UTI regadenoson (From Lexiscan) Adverse Reaction (Verified 04/01/25 08:17) Bradycardic HPI Comments Details: It was a pleasant male. He is a patient of Dr. Delgado. He seen for the following urologic conditions - lower urinary tract symptoms Six-month follow-up UA negative for glucose, positive leukocytes Check urine culture High PVR today Continue medications Had cardiac stenting 02/12 and unable to come off anticoagulation for 6-12 months Previously on Jardiance which had caused UTIs Will stop Jardiance since has had complications - Caution advised with dapagliflozin in the setting of male urinary tract outlet obstruction. BMJ Case Rep. 2017 September 10;2016 Lower urinary tract symptoms Primarily nocturia 3-5 times per night Failed lifestyle modifications Had been maximized on Flomax 0.8 mg daily. Change to terazosin. Stopped since this was making him feel dizzy. Imaging - ultrasound possible multiple echogenic foci within kidney representing vascular calcifications, incomplete bladder emptying, prostate gland calcifications 40 cc PSAs: 05/12 0.2, 02/09 0.2, 03/14 0.2 A1c: 08/13 5.6 [facility] Medical History (Updated 03/10/25 @ 09:29 by Ja Jean-Baptiste MD) HOLLOWAY (dyspnea on exertion) Atrial fibrillation with rapid ventricular response Supplemental oxygen dependent ILD (interstitial lung disease) COPD (chronic obstructive pulmonary disease) Tubular adenoma of colon (~2021) Postoperative hypothyroidism Obesity (BMI 30-39.9) Atrial fibrillation Chest discomfort Bronchitis Hemoptysis Abnormal SPEP Multinodular thyroid Swelling of left lower extremity Pulmonary nodules/lesions, multiple Ground glass opacity present on imaging of lung Wedge compression fracture of T9 vertebra (~2018) Coronary artery disease Hypertension Right renal stone Thyroid nodule Vitamin D deficiency Ascending aorta dilatation Obesity (BMI 30-39.9) Psoriasis Hypercholesterolemia Former smoker Stable angina Surgical History Status post AAA (abdominal aortic aneurysm) repair Hx of bilateral cataract extraction (~2022) History of partial thyroidectomy (~2020) History of heart artery stent (~2019) History of colonoscopy History of cardioversion (~2020) History of appendectomy History of tonsillectomy History of lung biopsy (~2016) Family History Father Heart disease Mother Throat cancer Paternal Grandfather Heart disease Social History Household Members: Spouse Housing: House Are you a primary lawn care professional to a significant other at home: No Do you presently have visiting nurse or other home services: No Unable to assess alcohol history related to: Unknown Alcohol intake: former Year quit: 2014 Patient Tobacco Use Status: Former Tobacco user Tobacco use type: Cigarette Years Smoked: 50 e-Cigarette/Vaping Use: Former Use Second Hand Smoke Exposure: Yes Advance Directives Date on File: 09/21/20 service: Yes Current occupational status: retired Cognitive needs: No Hearing needs: No Vision needs: Yes (Glasses) Review of Systems Const Denies chills and Denies fever(s) Card Reports no additional complaints and Denies syncope Resp Denies cough GI Denies abdominal pain and Denies heartburn Reports as per HPI and Denies change in libido Neuro Denies syncope Psych Denies change in libido Endo Denies change in libido Physical Exam Const General: cooperative, healthy appearing, comfortable and no acute distress Orientation/consciousness: patient oriented x3 HEENT Face and sinus: Yes normal facial exam Mouth: moist mucous membranes Neck Neck: Yes normal visual inspection, Yes full ROM and Yes trachea midline Chest Chest palpation & inspection: normal inspection of the chest Resp Effort & Inspection: normal respiratory effort, able to speak in complete sentences and no respiratory distress GI Inspection: Yes normal to inspection Back/Spine/Pelvis Cervical Spine: normal cervical lordosis Thoracic/Lumbar Spine: thoracic and lumbar spine normal to inspection Skin General skin exam: no rashes or lesions noted Neuro General: patient oriented x3, gait normal, tone normal and moves all extremities Extrem General: Yes normal to inspection and Yes capillary refill normal Office Procedures Post Void Residual Post Residual Void Post Void Residual (PVR): 451 74913-Batg Void Residual by ultrasound Results AMB Urinalysis, Automated UA Leukoctes 125 Kiana/uL Last Edit by Keri Fisher [facility] on 04/01/25 08:28 UA Nitrite Negative Last Edit by Keri Fisher, [facility] on 04/01/25 08:28 UA Urobilinogen 0.2 mg/dL Last Edit by Keri Fisher, [facility] on 04/01/25 08:28 UA Protein 0 mg/dL Last Edit by [facility], [facility] on 04/01/25 08:28 UA pH 6.5 [facility], [facility] on 04/01/25 08:28 UA Blood 0 Sam/uL Last Edit by Keri Phillip, [facility] on 04/01/25 08:28 UA Specific [place] 1.010 Last Edit by Keri Fisher, [facility] on 04/01/25 08:28 UA Ketone Negative Last Edit by Keri Phillip, [facility] on 04/01/25 08:28 UA Bilirubin 0 mg/dL Last Edit by Keri Phillip [facility] on 04/01/25 08:28 UA Glucose 0 mg/dL Last Edit by Keri Fisher, [facility] on 04/01/25 08:28 Results Reviewed Results Reviewed: Laboratory Last Values Urine pH (Auto) 6.5 04/01/25 08:27 Specific [place] (Auto) 1.010 04/01/25 08:27 Urine Protein (Auto) 0 mg/dL 04/01/25 08:27 Glucose (UA)(Auto) 0 mg/dL 04/01/25 08:27 Urine Ketones (Auto) Negative 04/01/25 08:27 Urine Blood (Auto) 0 Sam/uL 04/01/25 08:27 Urine Nitrite (Auto) Negative 04/01/25 08:27 Urine Bilirubin (Auto) 0 mg/dL 04/01/25 08:27 Urine Urobilinogen (Auto) 0.2 mg/dL 04/01/25 08:27 Leukocyte Esterase (Auto) 125 Kiana/uL 04/01/25 08:27 Assessment & Plan Assessment & Plan (1) Nocturia: Code(s): R35.1 - Nocturia Category: Medical (2) Lower urinary tract symptoms: Code(s): R39.9 - Unspecified symptoms and signs involving the genitourinary system Category: Medical (3) Urinary retention with incomplete bladder emptying: Code(s): R33.9 - Retention of urine, unspecified Category: Medical Plan Six-month follow-up Orders: Orders AMB Urinalysis Automated Today N13.8 - Other obstructive and reflux uropathy, N40.1 - Benign prostatic hyperplasia with lower urinary tract symptoms AMB Post Void Residual by ultrasound Today N40.1 - Benign prostatic hyperplasia with lower urinary tract symptoms Urine Culture Today N39.0 - Urinary tract infection, site not specified Patient Instructions: This note is constructed using voice recognition software. While every effort has been made to ensure accuracy pulmonary specialist errors may have been included. Imaging studies, laboratory and physical exam results were discussed and reviewed in detail. No major barriers to patient understanding were identified. An opportunity to ask questions regarding the treatment plan was provided. All questions were answered. The patient expressed understanding and agreement with the above treatment plan. The patient is aware they should contact our office by phone for worsening of their current condition or the appearance of new urologic symptoms. Compliance is encouraged with any medications and followup testing that is ordered. It is a privilege to participate in the urologic care of your patient. If you have any questions or concerns regarding treatment for the above conditions, or other urologic issues, please do not hesitate to contact me. The office telephone contact is [phone]. Sincerely, Dr Joel George MD, [facility] - Urology Compassionate Specialist Care for the Genitourinary System Coding Level of Care Code Est Pt Level 3 (58047) Add On Problem Visit Only Diagnoses Nocturia R35.1 Lower urinary tract symptoms R39.9 Urinary retention with incomplete bladder emptying R33.9 CPT Codes Post Residual Void - PVR CPT Code: 77637-Wves Void Residual by ultrasound ([id number])
== END 2025-04-01 08:53 | disposition home or self-care (01) ==
LOC: HO.HUSH 08:10
PROVIDERS: PCP Internal Medicine; Visit Provider Urology
DX: R35.1 Nocturia (principal); R39.9 Unspecified symptoms and signs involving the genitourinary system; R33.9 Retention of urine, unspecified; N40.1 Benign prostatic hyperplasia with lower urinary tract symptoms; N13.8 Other obstructive and reflux uropathy
CPT/HCPCS: 99213; G2211

== ENCOUNTER 2025-04-01 08:09 | Outpatient (REF) | payer MEDICARE, SELFPAY | END 2025-04-01 08:10 | disposition home or self-care (01) | LOC: HO.LAB 08:09 | PROVIDERS: PCP Internal Medicine; Visit Provider Urology | DX: N40.1 Benign prostatic hyperplasia with lower urinary tract symptoms (principal); R35.1 Nocturia; R39.9 Unspecified symptoms and signs involving the genitourinary system; R33.9 Retention of urine, unspecified; N13.8 Other obstructive and reflux uropathy; N39.0 Urinary tract infection, site not specified | CPT/HCPCS: 51798; 81003; 87086; 99212 ==

== ENCOUNTER 2025-04-06 15:03 | Outpatient (AMB) | payer MEDICARE, SELFPAY ==
--- NOTE | 2025-04-06 15:30 | MHC.OFFVIS ---
Vital Signs 04/06/25 15:31 Height 5 ft 9 in Weight 207 lb 3.752 oz BMI 30.6 BP 140/68 H Blood Pressure Location Lt brachial Position Sitting Pulse 89 Pulse Source Pulse Oximeter Intake Visit Reasons: Follow up after Cath Allergies Penicillins Allergy (Severe, Verified 04/01/25 08:17) Anaphylaxis hydrochlorothiazide Allergy (Unknown, Verified 04/01/25 08:17) Unknown lisinopril Allergy (Unknown, Verified 04/01/25 08:17) Unknown empagliflozin (From Jardiance) Adverse Reaction (Intermediate, Verified 04/01/25 08:17) UTI regadenoson (From hovelstayiscan) Adverse Reaction (Verified 04/01/25 08:17) Bradycardic Medication List - Last Reconciled 04/06/25 by TIFFANIE Coleman apixaban (Eliquis) 5 mg PO BID 90 days atorvastatin 80 mg PO BEDTIME vcjcwwoxou-quipyepy-ykdjeuqhxn 160-9-4.8 mcg/actuation (Breztri Aerosphere) 2 inhalations PO BID cholecalciferol (vitamin D3) 50 mcg PO DAILY clopidogrel 75 mg PO ONCE compress.stocking,knee,reg,med As directed 20-30 mm HG cyanocobalamin (vitamin B-12) (Vitamin B-12) 1,000 mcg PO DAILY diclofenac sodium 1% (Arthritis Pain (diclofenac)) 4 grams topical QID digoxin 125 mcg PO 3XW diltiazem HCl CD 120 mg PO DAILY famotidine 20 mg PO BID 90 days ferrous sulfate 325 mg PO DAILY 90 days furosemide 40 mg (2 x 20 mg) PO QAM 90 days guselkumab (Tremfya Pen) 100 mg subcut Q8W levothyroxine 50 mcg PO DAILY@0600 metoprolol tartrate 50 mg PO BID 90 days [OXYGEN 2 L NC keep sats > 90 As directed] [PORTABLE OXYGEN TANK As directed] potassium chloride ER 10 mEq PO BID tamsulosin 0.8 mg (2 x 0.4 mg) PO DAILY HPI HPI Follow up after Cath: Details: Pablito is a 79-year-old male with past medical history of hypertension, hyperlipidemia, Mild aortic stenosis, chronic diastolic heart failure, CAD with RCA stent, chronic atrial fibrillation, COPD with O2 use who recently underwent right and left heart catheterization and now presents for follow-up. Today he states that his shortness of breath has increased over the last few months. He is denying cough, orthopnea, edema, recent illness. He is concerned over his gradual change in breathing. No chest discomfort at rest or with activity. He will feel heart palpitations at times. No bleeding issues with his anticoagulation. He would like to resume stage II cardiac rehab. [facility] Medical History HOLLOWAY (dyspnea on exertion) Atrial fibrillation with rapid ventricular response Supplemental oxygen dependent ILD (interstitial lung disease) COPD (chronic obstructive pulmonary disease) Tubular adenoma of colon (~2021) Postoperative hypothyroidism Obesity (BMI 30-39.9) Atrial fibrillation Chest discomfort Bronchitis Hemoptysis Abnormal SPEP Multinodular thyroid Swelling of left lower extremity Pulmonary nodules/lesions, multiple Ground glass opacity present on imaging of lung Wedge compression fracture of T9 vertebra (~2018) Coronary artery disease Hypertension Right renal stone Thyroid nodule Vitamin D deficiency Ascending aorta dilatation Obesity (BMI 30-39.9) Psoriasis Hypercholesterolemia Former smoker Stable angina Surgical History Status post AAA (abdominal aortic aneurysm) repair Hx of bilateral cataract extraction (~2022) History of partial thyroidectomy (~2020) History of heart artery stent (~2019) History of colonoscopy History of cardioversion (~2020) History of appendectomy History of tonsillectomy History of lung biopsy (~2016) Family History Father Heart disease Mother Throat cancer Paternal Grandfather Heart disease Social History Household Members: Spouse Housing: House Are you a primary director of medicare to a significant other at home: No Do you presently have visiting nurse or other home services: No Alcohol intake: former Year quit: 2014 Patient Tobacco Use Status: Former Tobacco user Tobacco use type: Cigarette Years Smoked: 50 e-Cigarette/Vaping Use: Former Use Second Hand Smoke Exposure: Yes Advance Directives Date on File: 09/21/20 service: Yes Current occupational status: retired Cognitive needs: No Hearing needs: No Vision needs: Yes (Glasses) Review of Systems Const All systems reviewed & are unremarkable except as noted in HPI and below Denies weakness ENT Denies dizziness Card Denies chest pain, Denies chest pain with activity, Denies syncope, Denies rapid heart rate, Denies pedal edema, Denies edema, Denies leg edema, Denies lightheadedness, Denies palpitations, Reports dyspnea, Reports dyspnea on exertion and Reports orthopnea Resp Denies cough, Reports dyspnea and Reports dyspnea on exertion GI Denies hematochezia and Denies change in stool character Musc Denies abnormal gait, Denies muscle cramps, Denies muscle weakness, Denies numbness, Denies radiating pain into limb and Denies tingling Neuro Denies abnormal gait, Denies dizziness, Denies syncope, Denies numbness, Denies tingling and Denies weakness Endo Denies palpitations Physical Exam Vital Signs: Last Vital Signs Pulse 89 04/06/25 15:31 BP 140/68 H 04/06/25 15:31 BMI result Body Mass Index 30.6 Const General: cooperative, healthy appearing, comfortable and no acute distress Orientation/consciousness: patient oriented x3 Neck Neck: Yes normal visual inspection Resp Other: Wearing oxygen with nasal cannula Effort & Inspection: normal respiratory effort Auscultation: clear to auscultation bilaterally, no rales, no rhonchi and no wheezes Cardio Rate: regular rate Rhythm: abnormal rhythm Heart sounds: S1 normal heart sound present, S2 normal heart sound present, no gallops, no murmurs and no rubs Neuro General: patient oriented x3 Extrem General: Yes normal to inspection, No no pedal edema and No calf tenderness Psych Appearance: grossly normal Mental Status: mental status grossly normal Speech and movement: Normal speech and movement present Results Reviewed Results Reviewed: Cardiac catheterization 03/02/2024 shows lad 1st diagonal 95% stenosis, left circumflex proximal 40% stenosis, RCA prior stent proximal, 90% In stent stenosi, JL placed. Echocardiogram 02/28/2024 shows EF 50-55%, mild LVH, moderately dilated left atrium, mild aortic stenosis, zgrq-ta-wazwtjmj enlargement of the ascending aorta at 4.4 cm. Echocardiogram 07/08/2024 shows EF 45-50%, mild aortic stenosis, trace to mild aortic regurgitation, suec-yk-carwerbc enlargement of the ascending aorta, 4.4 cm Assessment & Plan Assessment & Plan (1) Coronary artery disease: Comment: (NSTEMI 04/2019 - JL + proximal and distal RCA rotablation) 03/01/2024 PCI to RCA Code(s): I25.10 - Atherosclerotic heart disease of [place] coronary artery without angina pectoris Category: Medical Qualifiers: Coronary Disease-Associated Artery/Lesion type: [place] artery [place] vs. transplanted heart: [place] heart Associated angina: without angina Qualified Code(s): I25.10 - Atherosclerotic heart disease of [place] coronary artery without angina pectoris Plan: History of CAD, Cardiac catheterization from 02/2024 with RCA in stent stenosis requiring new stent to the RCA. Recent reports of increasing shortness of breath. He underwent diagnostic right and left heart catheterization showing moderate LAD and circumflex stenosis, patent RCA stents, filling pressures okay at rest, mild pulmonary hypertension. Catheterization note recommends optimization of pulmonary disease and resuming cardiac rehab. Continue Plavix. He is not on aspirin since he is on Eliquis. Continue high-dose atorvastatin with ideal LDL goal less than 70. Continue metoprolol. Will reorder stage II cardiac rehab. Signs and symptoms of angina reviewed.Cardiology follow up 6 mo, sooner if needed. (2) S/P cardiac cath: Comment: 03/23/25 right dominant circulation, no significant disease in the right coronary artery with patent stent, 40% proximal circumflex stenosis with heavy calcification, mid LAD 40% stenosis, ostial diagonal 90% stenosis, small-vessel, normal left ventricular end-diastolic pressure, no significant gradient across aortic valve, capillary wedge pressure 16 mm Hg, PA pressure 39/17 with mean of 27 mmHg- filling pressures okay at rest, mild pulmonary hypertension. Code(s): Z98.890 - Other specified postprocedural states Category: Surgical Plan: Right radial catheterization site well healed (3) Chronic atrial fibrillation: Code(s): I48.20 - Chronic atrial fibrillation, unspecified Category: Medical Plan: Chronic afib, that is treated with heart rate control. Continue metoprolol, diltiazem and digoxin for rate control. Last dig level 0.2 on 06/04/24. Continue Eliquis for anticoagulation. Recommend biannual cbc and renal function tests. Cardiology follow up 6 mo, sooner if needed. (4) Hypertension: Code(s): I10 - Essential (primary) hypertension Category: Medical Qualifiers: Hypertension type: essential hypertension Qualified Code(s): I10 - Essential (primary) hypertension Plan: BP goal < 130/80. On low side, asymptomatic. No med changes made. (5) History of heart artery stent: Onset Date: ~2019 Comment: (NSTEMI 04/2019 - JL + proximal and distal RCA rotablation), 90% in stent stenosis with new RCA stent 02/2024 Code(s): Z95.5 - Presence of coronary angioplasty implant and graft Category: Surgical (6) COPD (chronic obstructive pulmonary disease): Code(s): J44.9 - Chronic obstructive pulmonary disease, unspecified Category: Medical Plan: Follows with pulmonology. (7) Chronic diastolic heart failure: Code(s): I50.32 - Chronic diastolic (congestive) heart failure Category: Medical Plan: No signs or symptoms of heart failure on examination. Continue lasix. Signs and Symptoms of heart failure reviewed with him. (8) Hypercholesterolemia: Code(s): E78.00 - Pure hypercholesterolemia, unspecified Category: Medical Plan: LDL goal less than 70. Labs done 10/31/2024 shows LDL 57. Continue high-dose atorvastatin. Plan I explained to the patient that his recent cardiac catheterization showed his previously placed stent is open and that the moderate cholesterol buildup in his other arteries does not require intervention at this time and should not be causing his significant shortness of breath. I informed him that the pressure measurements inside his heart also looked okay. We discussed that his worsening dyspnea may be a pulmonary issue, and I will therefore forward my note and the catheterization report to his stock tracer, Dr. Casas, for further evaluation. I advised him to contact Dr. Casas's office in about two weeks if he has not heard from them to arrange a follow-up sooner than his appointment scheduled for June. I confirmed that I will not be changing any of his current cardiac medications as he is on an optimal regimen. We discussed restarting his cardiac rehab maintenance program, and I will place the order for this. I recommended a follow-up appointment with Dr. Jean-Baptiste in approximately four months. Orders: Orders Cardiac Rehab Today I25.10 - Atherosclerotic heart disease of [place] coronary artery without angina pectoris, I50.32 - Chronic diastolic (congestive) heart failure, Z95.5 - Presence of coronary angioplasty implant and graft Patient Instructions: - Your recent heart test showed that your stent is open and the other blockages are not severe enough to be causing your shortness of breath. - We will send your test results to your lung doctor, Dr. Casas, for him to review.. - Continue taking all of your medications as prescribed, including Plavix, Eliquis, your cholesterol pill, and your water pill (Lasix). - We will place a new order for you to restart your cardiac rehabilitation maintenance program. - Schedule a follow-up appointment here to see Dr. Jean-Baptiste in about four months. Patient was informed and verbally consented to the use of an ambient scribe for clinic note documentation during this visit. Visit time spent on chart review, interview, assessment, orders, documentation. Coding Level of Care Code Est Pt Level 4 (30457) Add On Problem Visit Only Diagnoses Coronary artery disease involving sen[place]-c[place] coronary artery of [place] heart without angina pectoris I25.10 Coronary Disease-Associated Artery/Lesion type: [place] artery [place] vs. transplanted heart: [place] heart Associated angina: without angina S/P cardiac cath Z98.890 Chronic atrial fibrillation I48.20 Essential hypertension I10 Hypertension type: essential hypertension History of heart artery stent Z95.5 COPD (chronic obstructive pulmonary disease) J44.9 Chronic diastolic heart failure I50.32 Hypercholesterolemia E78.00 Time Spent (min) 32
[2025-04-06 15:31] VITALS: BP 140/68; PULSE 89; BMI 30.6
--- OUTSIDE RECORDS SUMMARY | 2025-04-06 19:24 | XMS_ITS | Patient Health Record ---
Author Organization [facility] Address [address] [place] [address] Care Team Providers Care Guitar Repair Technician Name Role Phone Po Oswaldo PAINTING Primary Care Provider Ever Colmenares [phone] Allergies Allergen (clinical drug ingredient) Drug/Non Drug [...] Problem Screening for malignant neoplasm of colon (012743211) Encounter for screening for malignant neoplasm of colon (Z12.11) Active confirmed Problem Diverticulosis of colon (285328265) Diverticulosis of colon (K57.30) Active confirmed Problem Esophageal dysphagia (12153002) Esophageal dysphagia (R13.19) Active confirmed Problem 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 (758228501) 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
--- OUTSIDE RECORDS SUMMARY | 2025-04-06 19:24 | XMS_ITS | Data Portability ---
Author Organization [facility]ardo, [address] Address [address] [place] [address] Assessment No assessment recorded. Plan of Treatment [...] By Organization Details Last Modified Time 05/18/2022 [id number] cuts: care instructions [email or web address] Not available 05/18/2022 [...] Address Organization Details Recorded Time Atrial fibrillation 18996783 Active 2022 Malika Shana null, PA - [facility] 3 13:50:16 Chronic obstructive pulmonary disease 09953071 Active 2022 Malika Shana null, PA - [facility] 3 13:50:20 Hypertensive disorder 16596902 Active 2022 Malika Shana null, PA - [facility] 3 13:50:27 Hyperlipidemia 00345678 Active 2022 Malika Shana null, PA - [facility] 3 13:50:33 Problem Notes None recorded. Medical Equipment None Reported. Allergies Allergen ID Allergen Name Allergen Category Reaction Reaction Severity Criticality Documentation Date Start Date Code Code System Note Provider Name and Address Organization Details Recorded Time 994156 Product containin g penicilli n (product) medicatio n anaphylax is Not available high 05/18/2022 80403 8001 SNOMED Malika Spencer null, PA - [facility] 3 13:49:54 [...] mass index (BMI) Body weight Oxygen saturation Heart rate Respiratory rate Body temperature Systolic And Diastolic Provider Name and Address Organization Details Last Updated DateTime 3 172.72 cm 31.9 kg/m2 13744.4 g 95 % 97 /min 20 /min 97.5 [degF] 167/94 mm[Hg] Malika Saldana PA - [facility] 3 13:55:29 Social History Question Answer Notes LastModified by [employer] Details LastModified Time Tobacco Smoking Status Former Smoker Malika Saldana freddy PA - [facility] 05/18/2022 13:50:42 When Did You Quit Smoking? 6-10yearssin celastcigare tte Information not available 05/18/2022 Have You Had Direct Contact, Or Contact During Intimacy, With Monkeypox Rash, Scabs, Or Body Fluids From A Person With Monkeypox? No Information not available 05/18/2022 Have You Recently Traveled Abroad? No Information not available 05/18/2022 Sex: Unknown Functional Status Question Answer Note LastModified by [email or web address] ion Details LastModified Time Do you use any [...] ICD10 Code Diagnosis IMO Codes Diagnosis Note [id number] [facility] [address] [place] [address] 05/04/2019 10:15:48 05/04/2019 11:04:20 [id number] [facility] [address] [place] [address] 08/22/2017 10:46:43 08/22/2017 11:28:26 [id number] [address] [address] [address] [place] [address] 11/06/2019 08:12:57 11/06/2019 08:47:49 [id number] [address] [facility] [address] [place] [address] 09/10/2018 10:01:20 09/10/2018 11:14:04 [id number] [address] [facility] [address] [place] [address] 11/07/2019 08:20:04 11/07/2019 10:41:03 [id number] [address] [facility] [address] [place] [address] 03/02/2020 09:28:03 03/02/2020 11:43:55 [id number] [facility] [address] [place] [address] 11/04/2019 08:03:33 11/04/2019 09:40:15 [id number] Donavan Hankins DO [facility] [address] [place] [address] 05/18/2022 13:41:02 05/18/2022 14:28:46 Laceration of left hand [id number] S61.412A following oral consent wound was cleaned [...] [place] Pablito Everett [id number] Pablito Everett 05/18/2022 2 [place]) [id number] Pablito Everett [id number] Gipson Marguerite 05/18/2022 NORIDIAN - SPECIALITY CLAIMS (MEDICARE DME REGION A) Pablito Everett [id number] 25 Burtonal[address]sa Gipson Adielcedric Notes Date Note Type Note Provider Name and Address Organization Details Recorded Time 05/18/2022 text/html UC Wound/LacerationRep orted by [email or web address] yo malescratched by his house malik plavix and eliquisstill bleedingtried band aids w/o improvementno f/c/n/vminimal pain no CPno SOBno Hano dizzinessno f/c/n/vROS as noted in the HPI Donavan Hankins, DO [address] [place], [address], PA - [facility] 05/18/2022 14:30:26
--- OUTSIDE RECORDS SUMMARY | 2025-04-06 19:24 | XMS_ITS | Patient Health Record ---
[facility] Address [address] [place] [address] Care Team Providers Care Nurse Anesthesia Program Director Name Role Phone Oswaldo Delgado Primary Care Provider Buddy Russo Unavailable [phone] Allergies Allergen (clinical drug ingredient) Drug/Non Drug [...] Problem Acquired hammer toe of left foot (2740170013957935) Other hammer toe(s) (acquired), left foot (M20.42) Active confirmed Problem Bilateral atherosclerosis of arteries of lower limbs (disorder) (45388969821808378 ) Atherosclerosis of koi artery of both lower extremities, with unspecified presence of clinical manifestation (I70.203) Active confirmed Q7(A), Q8(2B), Q9(1B,2 C) Problem Localized, primary osteoarthritis of the ankle and/or foot (777348676) Arthritis of joint of lesser toe, left (M19.072) Active confirmed Vital Signs Blood pressure diastolic 65 mm Hg 08/21/2024 Height 5ft 8in in 08/21/2024 Blood pressure systolic 130 mm Hg 08/21/2024 Weight 198 lbs 08/21/2024 BMI 30.1 kg/m2 08/21/2024 Encounters Encounter Location Date Provider Diagnosis [address] [address] 08/21/2024 Buddy Morin Atherosclerosis of koi artery of both lower extremities, with unspecified presence of clinical manifestation I70.203 ; Other hammer toe(s) (acquired), left foot M20.42 ; Arthritis of joint of lesser toe, left M19.072 and Pain in toe of left foot M79.[address] [address] 09/10/2024 Buddy Morin [address] [address] 09/10/2024 Buddy Patience [facility] [address] 11/18/2024 Buddymo Morin [facility] [address] 03/15/2025 Buddy Laguna Encounter Date Diagnosis (ICD Code) Assessment Notes Treatment Notes Treatment Clinical Notes Section Notes 08/21/2024 Other hammer toe(s) (acquired), left foot (ICD-10 - M20.42) 08/21/2024 Atherosclerosis of koi artery of both lower extremities, with unspecified presence of clinical manifestation (ICD-10 - I70.203) Q7(A), Q8(2B), Q9(1B,2C) 08/21/2024 Arthritis of joint of lesser toe, left (ICD-10 - M19.072) 08/21/2024 Pain in toe of left foot (ICD-10 - M79.675) Plan Of Treatment Pending Test Test Name Order Date X ray : Foot, left 3V 08/21/2024 61848-Svdq Destruction, -07/19/2017 42643-Hkbo Destruction, 05-0508/06/2017 53896-Wvlx Destruction, 05-0508/23/2017 55725-Lhbc Destruction, 05-0509/10/2017 06548-Umzm Destruction, 05-0510/04/2017 25739-Izhj Destruction, 05-0510/29/2017 84541-Sfyx Destruction, 05-0511/19/2017 77438-Qfyl Destruction, 05-0511/29/2017 43866-Utnd Destruction, 05-0512/06/2017 33334-Prlt Destruction, -01/10/2018 Insurance Providers Payer Name Payer Address Payer Phone Subscriber Number Group Number Insured Name Patient Relationship to Insured Coverage Start Date Coverage End Date Medicare National Govt Svcs Inc [address] [place] [address] [id number] Pablito Everett Self - patient is the insured 1 [employer]ex Blue Shield [address] [place] [address] [id number] Pablito Everett Self - patient is the insured Medical (General) History Medical History History ICD Code Headaches Psoriasis Measles Chicken pox Cholesterol Rheumatoid Arthritis Cataracts Heart disease High Blood Pressure thyroid COPD Surgical History Surgery Date(Month/Year) appendectomy Stent Thyroid Surgery Abdominal Stents 07/13
== END 2025-04-06 16:09 | disposition home or self-care (01) ==
LOC: HO.HCS 15:04
PROVIDERS: PCP Internal Medicine; Visit Provider Nurse Practitioner Family
DX: I25.10 Atherosclerotic heart disease of native coronary artery without angina pectoris (principal); Z98.890 Other specified postprocedural states; I48.20 Chronic atrial fibrillation, unspecified; I10 Essential (primary) hypertension; Z95.5 Presence of coronary angioplasty implant and graft; J44.9 Chronic obstructive pulmonary disease, unspecified; I50.32 Chronic diastolic (congestive) heart failure; E78.00 Pure hypercholesterolemia, unspecified
CPT/HCPCS: 99214; G2211

== ENCOUNTER → 2025-04-06 15:03 | Outpatient (BNVA) | payer MEDICARE, SELFPAY | PROVIDERS: PCP Internal Medicine; Visit Provider Nurse Practitioner Family | DX: I25.10 Atherosclerotic heart disease of native coronary artery without angina pectoris (principal); Z95.5 Presence of coronary angioplasty implant and graft; I25.2 Old myocardial infarction; I48.20 Chronic atrial fibrillation, unspecified; J44.9 Chronic obstructive pulmonary disease, unspecified; I50.32 Chronic diastolic (congestive) heart failure; E78.00 Pure hypercholesterolemia, unspecified; Z87.891 Personal history of nicotine dependence; Z98.890 Other specified postprocedural states | CPT/HCPCS: 99212 ==